=== PATIENT | female | born 1950 | race Caucasian/White ===

== ENCOUNTER 2020-11-03 18:30 | Emergency (ER) | payer MEDICARE ==
[~2020-11-03] VITALS: Ht 152.4 cm; Wt 65.0 kg
[2020-11-03 19:34] VITALS: BP 132/86
--- NOTE | 2020-11-03 19:36 | ED GU-Female ---
General Stated Complaint: MICHELE CAME OUT Source: patient Exam Limitations: no limitations (LUIS DIAZ APRN) History of Present Illness Date Seen by Provider: Nov 03, 2020 Time Seen by Provider: 19:34 Initial Comments To ER with reports that her Michele catheter came out. She has a chronic indwelling Michele catheter after partial cystectomy/cystorrhaphy following large colovesical fistula managed with [facility]. She is on meropenem Zyvox and vancomycin at home through a PICC line. No fevers or chills, the Michele came out earlier today. Timing/Duration: this afternoon Severity/Quality: moderate Prior Genitourinary Problems: none Sexual [place] History: not active Associated Symptoms: denies symptoms (LUIS DIAZ APRN) Allergies and Home Medications Patient Home Medication List Home Medication List Reviewed: Yes (LUIS DIAZ APRN) Review of Systems Review of Systems Constitutional: see HPI EENTM: see HPI Respiratory: no symptoms reported Cardiovascular: no symptoms reported Genitourinary: see HPI Musculoskeletal: no symptoms reported Skin: no symptoms reported Psychiatric/Neurological: No Symptoms Reported Endocrine: No Symptoms Reported (LUIS DIAZ APRN) Physical Exam Vital Signs Vital Signs - First Documented 11/03/20 18:56 Temp 36.1 Pulse 68 Resp 20 B/P (MAP) 130/93 (105) Pulse Ox 96 O2 Delivery Room Air (SUSHILA HUTTON MD) Vital Signs Capillary Refill : (LUIS DIAZ APRN) Height, Weight, BMI Height: '" Weight: lbs. oz. kg; BMI Method: General Appearance: WD/WN, no apparent distress Neck: non-tender, full range of motion Respiratory: no respiratory distress, no accessory muscle use Gastrointestinal: normal bowel sounds, soft, other (Right-sided abdominal colostomy. No abdominal pain. 16 Arabic Michele catheter was easily reinserted by me under sterile technique) Extremities: normal range of motion, non-tender Neurologic/Psychiatric: alert, normal mood/affect, oriented x 3 Skin: normal color, warm/dry (LUIS DIAZ APRN) Progress/Results/Core Measures Suspected Sepsis SIRS Temperature: Pulse: Respiratory Rate: Blood Pressure / Mean: (LUIS DIAZ APRN) Results/Orders Vital Signs/I&O Capillary Refill : (LUIS DIAZ APRN) Departure Impression Primary Impression: Encounter for Michele catheter replacement Disposition: 01 HOME, SELF-CARE Condition: Stable Departure-Patient Inst. Decision time for Depature: 19:36 (LUIS DIAZ APRN) Referrals: JON WITT MD (PCP/Family) Primary Care Physician Patient Instructions: Michele Catheter ATTENDING PHYSICIAN NOTE: I was physically present as attending physician in the emergency department during the care of this patient, but I was not directly involved in the decision making or delivery of care for this patient. (SUSHILA HUTTON MD) LUIS DIAZ APRN Nov 03, 2020 19:36 SUSHILA HUTTON MD Nov 05, 2020 20:55
--- OUTSIDE RECORDS SUMMARY | 2020-11-03 21:46 | XMS REPORT | Encounter Summary ---
Author Author [facility] Organization [facility] Address Unknown Phone Unavailable Care Team Providers Care Oracle Solutions Architect Name Role Phone Geraldo Mcknight MD PCP Dale Leal DO 21 Unavailable Reason for Referral * Consult, Test & Treat Referred By Contact Referred To Contact Status Reason Specialty Diagnoses / Procedures India Hassan MD [address] Ortho/Med Pavilion Lvl [address] [place] [address] New Request Specialty Services Diagnoses Required Intra-abdominal abscess (HCC) Scheduling Instructions ID OPAT RN will address. Comments Infectious Diseases Outpatient Orders: Today's Date: 10/20/[address] Hassan, 1. Please perform CT abd/pelv with contrast on ~10/23/[address] report to [phone] 3. [place] images when available Please Address Questions, Abnormal or Critical Lab Results: Friday thru Friday 8am - 4pm: Call Evelyn RIDLEY RN at [phone]. After Hours (4pm), On the Weekends, or on a Holiday: Page the ID Fellow Employment Director at [phone]. Thank You Electronically signed by India Hassan MD at Reason for Visit * Reason Onset Date Comments Outpatient Antibiotic 10/20/2020 Therapy (Opat) Encounter Details Care Team Description Date Type Department India Hassan MD [address] Ortho/Med Pavilion Lvl [address] [place] [address] [phone] Outpatient Antibiotic Therapy (Opat) 10/20/2020 Telephone Infectious Diseases : [place], [address], [address] [id number] Social History Date Tobacco Use Types Packs/Day Years Used Quit: 05/15/2020 Former Smoker Cigarettes 1 55 Smokeless Tobacco: Never Used Comments Alcohol Use Standard Drinks/Week Not Currently 0 (1 standard drink = 0.6 o z pure alcohol) Alcohol Habits Answer Date Recorded How often do you have a drink containing alcohol? Never 05/22/2020 How many drinks containing alcohol do you have on No t asked a typical day when you are drinking? How often do you have six or more drinks on one Not asked occasion? Sex Assigned at Date Recorded Female 06/27/2020 9:57 AM CDT Date Recorded COVID-19 Exposure Response 10/20/2020 11:03 AM CDT In the last month, have you been in contact with No / Unsure someone who was confirmed or suspected to have Coronavirus / COVID-19? documented as of this encounter Functional Status Date of Assessment Functional Status Response 10/10/2020 Does the patient have a hearing impairment: No 07/31/2020 Does the patient have a visual impairment: Yes - Anita ders 07/31/2020 Does the patient have impaired ambulation: Yes 07/31/2020 Does the patient have an activity of daily living No (ADL) impairment: 07/31/2020 Does the patient have an instrumental activity of No daily living (IADL) impairment: Date of Assessment Cognitive Status Response 07/31/2020 Does the patient have a cognitive impairment: No documented as of this encounter Miscellaneous Notes * Telephone Encounter - Evelyn Collado RN - 10/20/2020 8:05 AM CDT Infectious Diseases Outpatient Orders: Today's Date: 10/20/[address] Hassan, 1. Please perform CT abd/pelv with contrast on ~10/23/[address] report to [phone] 3. [place] images when available Above orders were faxed to [facility] in [place] [phone]. Called pt's insurance, no precert required for CT scan. documented in this encounter Plan of Treatment Order Schedule Name Type Priority Associated Diag noses Ordered: 10/20/2020 AMB REFERRAL TO HOME CARE Outpatient Routine Intr a-abdominal abscess Referral (HCC) documented as of this encounter Goals Goal Patient Associated Recent Progress Patient-Stat Aut hor Goal Type Problems ed? Resume normal activities Hospital On track (09/05/2020 Yes Dorothy, 10:14 AM CDT) KOBI Villarreal Note: Get better and go home Improve quality of life Hospital On track (10/10/2020 Yes Desiree Rosales, 11:36 AM CDT) RN Note: "To get full recovery and be able to live my life, get well and be as healthy as I can" documented as of this encounter Visit Diagnoses Diagnosis Intra-abdominal abscess (HCC) - Primary Peritoneal abscess documented in this encounter Additional Health Concerns Last Indicated Resolved Time Infection Onset Date 09/27/2020 Pseudomonas - MDRO 09/27/2020 Assessment Noted Time A fall risk assessment has been completed for the pat ient 10/16/2020 8:00 AM CDT documented as of this encounter
--- OUTSIDE RECORDS SUMMARY | 2020-11-03 21:46 | XMS REPORT | Encounter Summary ---
Author Author [facility] Organization [facility] Address Unknown Phone Unavailable Care Team Providers Care Riprap Placer Name Role Phone Geraldo Mcknight MD PCP Dale Leal DO 21 Unavailable Reason for Visit * Reason Comments Infection * Consult, Test & Treat (Routine) Referred By Contact Referred To Contact Status Reason Specialty Diagnoses / Procedures India Hassan MD [address] Ortho[facility]ilion Lvl [address] [place] [phone] Pending Review Infectious Diseases Encounter Details Care Team Description Date Type Department India Hassan MD [address] Orth[facility] Lvl [address] [place] [phone] 10/23/2020 Office Visit Infectious Diseases : [facility] [place], Medical [facility]ilion [address] [address] Social History Date Tobacco Use Types Packs/Day [...] impairment: No documented as of this encounter Plan of Treatment Not on filedocumented as of this encounter Goals Goal Patient [...] documented as of this encounter Visit Diagnoses Not on filedocumented in this encounter Additional Health Concerns Last Indicated Resolved Time Infection Onset Date 09/27/2020 Pseudomonas - MDRO 09/27/2020 Assessment Noted Time A fall risk assessment has been completed for the pat ient 10/16/2020 8:00 AM CDT documented as of this encounter
--- OUTSIDE RECORDS SUMMARY | 2020-11-03 21:46 | XMS REPORT | Encounter Summary ---
Author Author [facility] Organization [facility] Address Unknown Phone Unavailable Care Team Providers Care Chief Of Pediatric Urology Name Role Phone Geraldo Mcknight MD PCP Dale Leal DO 21 Unavailable Reason for Referral * Consult, Test & Treat Referred By Contact Referred To Contact Status Reason Specialty Diagnoses / Procedures India Hassan MD [address] Ortho/Med Pavilion [address] [address] New Request Specialty Services Diagnoses Required Colovesical fistula Abscess Scheduling Instructions No action needed. OPAT RN to address. Answer Question ID OPAT ORDERS Referral Comments Infectious Diseases Outpatient Orders: Today's Date: 10/17/20 Pt discharged on: 10/16/20 ID physician: Mo Krause f/u: 10/23/20 CT 10/23/20 WE FOLLOW PATIENTS IV ABX/WEEKLY LABS/CENTRAL LINE Dx: abd abscess/colovesicular fistula 1. Antibiotic order: --Meropenem 2g IV Q 8hrs --Micafungin 150mg PO QD --Linezolid 600mg PO BID --Vancomcyin 125mg PO BID until after abx E- 2-[address] and surgical plans 2. Weekly labs to be drawn every Friday and start on 10/18/20. Weekly Labs: CBC w/Diff, CMP Fax results to [phone]. 3. Weekly PICC care per protocol. Line: RDL PICC Services: [facility] # [phone] [place] P: [phone] F: [phone] If you have any questions/concerns, please call Evelyn Infectious Diseases RN at [phone]. Fax all lab results to [phone] and call ID RN for any Critical lab results during normal business hours. After Hrs: If Labs Outside of Normal Range any time on weekends or holidays please page ID fellow oim consultant to [phone]. Electronically signed by India Hassan MD at Reason for Visit * Reason Onset Date Comments Outpatient Antibiotic 10/16/2020 Therapy (Opat) Encounter Details Care Team Description Date Type Department India Hassan MD [address] [facility] Ortho/Med Pavilion Lvl [address] [place] [address] Outpatient Antibiotic Therapy (Opat) 10/16/2020 Telephone Infectious Diseases : [place], [place] [address] [employer] [facility]. [address], [address] [address] Social History Date Tobacco Use [...] AM CDT Date Recorded COVID-19 Exposure Response 10/09/2020 1:17 PM CDT In the last month, have you been in contact with [facility] to assess someone who was confirmed or suspected to have Coronavirus / COVID-19? documented as of this encounter Functional Status Date of Assessment Functional Status Response 10/10/2020 Does the patient have a hearing impairment: No 07/31/2020 Does the patient have a visual impairment: Yes - Anita ann 07/31/2020 Does the patient have impaired ambulation: Yes 07/31/2020 Does the patient have an activity of daily living No (ADL) impairment: 07/31/2020 Does the patient have an instrumental activity of No daily living (IADL) impairment: Date of Assessment Cognitive Status Response 07/31/2020 Does the patient have a cognitive impairment: No documented as of this encounter Miscellaneous Notes * Telephone Encounter - Bridgett Hansen RN - 10/16/2020 3:11 PM CDT Reconciling Discharge Orders Note OPAT ACTIVE Pt discharged on: 10/16/20 ID physician: Mo Krause f/u: 10/23/20 CT 10/23/20 Dx: abd abscess/colovesicular fistula 1. Antibiotic order: --Meropenem 2g IV Q 8hrs --Micafungin 150mg IV QD --Linezolid 600mg PO BID --Vancomcyin 125mg PO BID until after abx E- 2-[address] and surgical plans 2. Weekly labs to be drawn every Friday and start on 10/18/20. Weekly Labs: CBC w/Diff, CMP Fax results to [phone]. 3. Weekly PICC care per protocol. Line: RD PICC Services: [facility]# [phone] [facility] P: [phone] F: [phone] Orders confirmed by Yamil at [place] (LVM stating if orders arent correct then to return my call) Orders faxed to [facility] with lab start of 10/18/20/ID clarification Orders confirmed received by Lindsay at [facility] documented in this encounter Plan of Treatment Order Schedule Name Type Priority Associated Diag noses Weekly for 8 Occurrences starting 2020 until 01/17/2021, 3 completed CBC AND DIFF Lab Routine Colovesical fis harlan Abscess Weekly for 8 Occurrences starting 2020 until 01/17/2021, 3 completed COMPREHENSIVE METABOLIC Lab Routine Colove sical fistula PANEL Abscess Order Schedule Name Type Priority Associated Diag noses Ordered: 10/17/2020 AMB REFERRAL TO HOME CARE Outpatient Routine [place] vesical fistula Referral Abscess documented as of this encounter Goals Goal [...] I can" documented as of this encounter Results * COMPREHENSIVE METABOLIC PANEL (11/02/2020 1:20 PM CDT) Sodium OTHER OUTSIDE LAB Potassium 3.8 OTHER OUTSIDE LAB Chloride OTHER OUTSIDE LAB CO2 OTHER OUTSIDE LAB Blood Urea 19 OTHER OUTSIDE Nitrogen LAB Creatinine 0.6 OTHER OUTSIDE LAB Glucose OTHER OUTSIDE LAB Calcium OTHER OUTSIDE LAB Total Protein OTHER OUTSIDE LAB Total Bilirubin OTHER OUTSIDE LAB Albumin OTHER OUTSIDE LAB Alk Phosphatase 141 OTHER OUTSIDE LAB AST (SGOT) 32 OTHER OUTSIDE LAB ALT (SGPT) 19 OTHER OUTSIDE LAB eGFR Non OTHER OUTSIDE LAB [place] eGFR OTHER OUTSIDE [place] LAB Anion Gap OTHER OUTSIDE LAB Specimen Blood - Blood Performing Organization Address City/State/ZIP Code P sid Number OTHER OUTSIDE LAB * CBC AND DIFF (11/02/2020 1:20 PM CDT) White Blood 6.8 OTHER OUTSIDE Cells LAB RBC OTHER OUTSIDE LAB Hemoglobin 9.5 OTHER OUTSIDE LAB Hematocrit OTHER OUTSIDE LAB MCV OTHER OUTSIDE LAB MCH OTHER OUTSIDE LAB MCHC OTHER OUTSIDE LAB Platelet Count 224 OTHER OUTSIDE LAB MPV OTHER OUTSIDE LAB RDW OTHER OUTSIDE LAB Neutrophils OTHER OUTSIDE LAB Absolute OTHER OUTSIDE Neutrophil LAB Count Lymphocytes OTHER OUTSIDE LAB Absolute Lymph OTHER OUTSIDE Count LAB Monocytes OTHER OUTSIDE LAB Absolute OTHER OUTSIDE Monocyte Count LAB Eosinophil OTHER OUTSIDE LAB Absolute OTHER OUTSIDE Eosinophil LAB Count Basophils OTHER OUTSIDE LAB Absolute OTHER OUTSIDE Basophil Count LAB Atypical Lym OTHER OUTSIDE LAB Metamyelocyte OTHER OUTSIDE LAB Myelocyte OTHER OUTSIDE LAB Promyelocyte OTHER OUTSIDE LAB Blast OTHER OUTSIDE LAB RBC Morph OTHER OUTSIDE LAB WBC Morphology OTHER OUTSIDE LAB Specimen Blood - Blood Narrative Performed At This result has an attachment that is n ot available. Performing Organization Address City/State/ZIP Code P sid Number OTHER OUTSIDE LAB * COMPREHENSIVE METABOLIC PANEL (10/26/2020) Sodium [facility] Potassium 3.8 [facility] Chloride [facility] CO2 [facility] Blood Urea 15 [facility] Nitrogen Creatinine 0.7 [facility] Glucose [facility] Calcium [facility] Total Protein [facility] Total Bilirubin [facility] Albumin [facility] Alk Phosphatase 104 [facility] AST (SGOT) 27 [facility] ALT (SGPT) 14 [facility] eGFR Non [facility] eGFR [facility] [place] Anion Gap [facility] Specimen Blood - Blood Performing Organization Address [facility] Code P sid Number [facility] [address] [id number] * CBC AND DIFF (10/26/2020) White Blood 6.0 [facility] Cells RBC [facility] Hemoglobin 10.0 [facility] Hematocrit [facility] MCV [facility] MCH [facility] MCHC [facility] Platelet Count 249 [facility] MPV [facility] RDW [facility] Neutrophils [facility] Absolute [facility] Neutrophil Count Lymphocytes [facility] Absolute Lymph [facility] Count Monocytes [facility] Absolute [facility] Monocyte Count Eosinophil [facility] Absolute [facility] Eosinophil Count Basophils [facility] Absolute [facility] Basophil Count Atypical Lym [facility] Metamyelocyte [facility] Myelocyte [facility] Promyelocyte [facility] Blast [facility] RBC Morph [facility] WBC Morphology [facility] Specimen Blood - Blood Narrative Performed At This result has an attachment that is n ot available. Performing Organization Address City/[facility] P sid Number [facility] [address] [place] [address] * COMPREHENSIVE METABOLIC PANEL (10/19/2020 1:45 PM CDT) Sodium OTHER OUTSIDE LAB Potassium 4.2 OTHER OUTSIDE LAB Chloride OTHER OUTSIDE LAB CO2 OTHER OUTSIDE LAB Blood Urea 14 OTHER OUTSIDE Nitrogen LAB Creatinine 0.7 OTHER OUTSIDE LAB Glucose OTHER OUTSIDE LAB Calcium OTHER OUTSIDE LAB Total Protein OTHER OUTSIDE LAB Total Bilirubin OTHER OUTSIDE LAB Albumin OTHER OUTSIDE LAB Alk Phosphatase OTHER OUTSIDE LAB AST (SGOT) OTHER OUTSIDE LAB ALT (SGPT) OTHER OUTSIDE LAB eGFR Non OTHER OUTSIDE LAB [place] eGFR OTHER OUTSIDE [place] LAB Anion Gap OTHER OUTSIDE LAB Specimen Blood - Blood Performing Organization Address City/[facility]/ZIP Code P sid Number OTHER OUTSIDE LAB * CBC AND DIFF (10/19/2020 1:45 PM CDT) White Blood 8.9 OTHER OUTSIDE Cells LAB RBC OTHER OUTSIDE LAB Hemoglobin 10.7 OTHER OUTSIDE LAB Hematocrit OTHER OUTSIDE LAB MCV OTHER OUTSIDE LAB MCH OTHER OUTSIDE LAB MCHC OTHER OUTSIDE LAB Platelet Count 315 OTHER OUTSIDE LAB MPV OTHER OUTSIDE LAB RDW OTHER OUTSIDE LAB Neutrophils OTHER OUTSIDE LAB Absolute OTHER OUTSIDE Neutrophil LAB Count Lymphocytes OTHER OUTSIDE LAB Absolute Lymph OTHER OUTSIDE Count LAB Monocytes OTHER OUTSIDE LAB Absolute OTHER OUTSIDE Monocyte Count LAB Eosinophil OTHER OUTSIDE LAB Absolute OTHER OUTSIDE Eosinophil LAB Count Basophils OTHER OUTSIDE LAB Absolute OTHER OUTSIDE Basophil Count LAB Atypical Lym OTHER OUTSIDE LAB Metamyelocyte OTHER OUTSIDE LAB Myelocyte OTHER OUTSIDE LAB Promyelocyte OTHER OUTSIDE LAB Blast OTHER OUTSIDE LAB RBC Morph OTHER OUTSIDE LAB WBC Morphology OTHER OUTSIDE LAB Specimen Blood - Blood Narrative Performed At This result has an attachment that is n ot available. Performing Organization Address City/State/ZIP Code P sid Number OTHER OUTSIDE LAB documented in this encounter Visit Diagnoses Diagnosis Colovesical fistula - Primary Intestinovesical fistula Abscess Cellulitis and abscess of unspecified s ite documented in this encounter Additional Health Concerns Last Indicated Resolved Time Infection Onset Date 09/27/2020 Pseudomonas - MDRO 09/27/2020 Assessment Noted Time A fall risk assessment has been completed for the pat ient 10/16/2020 8:00 AM CDT documented as of this encounter
--- OUTSIDE RECORDS SUMMARY | 2020-11-03 21:46 | XMS REPORT | Encounter Summary ---
Author Author [facility] Organization [facility] Address Unknown Phone Unavailable Care Team Providers Care Production Superintendent Hydro Name Role Phone Geraldo Mcknight MD PCP Dale Leal DO 21 Unavailable Reason for Referral * Consult, Test & Treat Referred By Contact Referred To Contact Status Reason Specialty Diagnoses / Procedures India Hassan MD [address] Ortho/Med Pavilion Lvl [address] [place] [phone] *[facility] [address] [place] [address] New Request Specialty Services Diagnoses Required Abscess Scheduling Instructions KEYANA MOODY RN will address. Comments Infectious Diseases Outpatient Orders: Today's Date: 11/02/[address] Hassan, 1. Meropenem 2g IV Q 8 hrs and Micafungin 100 mg IV QD end date TBD 2. HH provided by [facility] Please Address Questions, Abnormal or Critical Lab Results: Friday thru Friday 8am - 4pm: Call Evelyn RIDELY RN at [phone]. After Hours (4pm), On the Weekends, or on a Holiday: Page the ID Fellow Net Software Developer at [phone]. Thank You Electronically signed by India Hassan MD at * Radiology Services (Routine) Referred By Contact Referred To Contact Status Reason Specialty Diagnoses / Procedures India Hassan MD [address] Ortho/Med Pavilion Lvl [address] [place] [phone] New Request Radiology Diagnoses Abscess P rocedures IR ABDOMINAL DRAIN PLACEMENT Electronically signed by India Hassan MD at Encounter Details Care Team Description Date Type Department India Hassan MD [address] Ortho/Med Pavilion Lvl [address] [place] [phone] 11/02/2020 Outpt. Infectious Diseases : Main Antibiotic [place], [facility] Therapy [address], [address] [address] Social History Date Tobacco Use [...] patient have a visual impairment: Yes - Grimsley ders 07/31/2020 Does the patient have impaired ambulation: Yes 07/31/2020 Does the patient have an activity of daily living No (ADL) impairment: 07/31/2020 Does the patient have an instrumental activity of No daily living (IADL) impairment: Date of Assessment Cognitive Status Response 07/31/2020 Does the patient have a cognitive impairment: No documented as of this encounter Plan of Treatment Order Schedule Name Type Priority Associated Diag noses Expected: 11/06/2020 (Approximate), Expi res: 11/02/2021 IR ABDOMINAL DRAIN Imaging Routine Abscess PLACEMENT Order Schedule Name Type Priority Associated Diag noses Ordered: 11/02/2020 AMB REFERRAL TO HOME CARE Outpatient Routine Absc ess Referral documented as of this encounter Goals Goal [...] I can" documented as of this encounter Procedures Comments Procedure Name Priority Date/Time Associated Diag nosis CBC AND DIFF Routine 11/02/2020 Colovesical fis harlan 1:20 PM CDT Abscess COMPREHENSIVE METABOLIC Routine 11/02/2020 Colove sical fistula PANEL 1:20 PM CDT Abscess documented in this encounter Results * COMPREHENSIVE METABOLIC PANEL [...] OUTSIDE LAB eGFR Non OTHER OUTSIDE LAB Senegalese eGFR OTHER OUTSIDE [place]egalese LAB Anion Gap OTHER OUTSIDE LAB Specimen [...] documented in this encounter Visit Diagnoses Diagnosis Abscess - Primary Cellulitis and abscess of unspecified s ite Colovesical fistula Intestinovesical fistula documented in this encounter Additional Health Concerns Last Indicated Resolved Time Infection Onset Date 09/27/2020 Pseudomonas - MDRO 09/27/2020 Assessment Noted Time A fall risk assessment has been completed for the pat ient 10/27/2020 8:58 AM CDT documented as of this encounter
--- OUTSIDE RECORDS SUMMARY | 2020-11-03 21:46 | XMS REPORT | Clinical Summary ---
Author Author [facility] Address Unknown Phone Unavailable Care Team Providers Care Pocket Creaser Name Role Phone Geraldo Mcknight MD PCP Dale Leal DO 21 Unavailable Source Comments Some departments are not documenting in the electronic medical record. If you d o not see the information that you expected, contact Release of Information in Critical access hospital Information Management department at [phone] for further assistan ce in locating additional records.[facility] Allergies Comments Active Allergy Reactions Severity Noted Date Sulfamethoxazole-Trimetho HIVES, Medium 10/2020 prim ITCHING Blue Dye EDEMA Medium 06/06/2020 Medications End Date Status Medication Sig Dispensed Refills Start Date Active acetaminophen (TYLENOL) Take one 90 capsule 0 325 mg capsule capsule by 1 mouth every 6 hours as needed. Max of 4,000 mg of acetaminophen in 24 hours. Active Miscellaneous Medical Colostomy 20 each 10/04/19 2 Supply misc supplies and 1 accessories Dispense twenty of each for one month of supplies Dx Colovesical fistula N32.1 Active gabapentin (NEURONTIN) Take one 90 capsule 0 300 mg capsule capsule by 1 mouth twice daily. Active naphazoline 0.025 % Apply one 30 mL 0 /pheniramine 0.3 % drop to both 1 (NAPHCON-A) 0.025/0.3 % eyes four drop times daily. Active pantoprazole DR Take one 90 tablet 1 (PROTONIX) 40 mg tablet tablet by 1 mouth twice daily. Active simethicone (MYLICON) 80 Chew one 30 tablet 1 0 mg chew tablet tablet by 1 mouth every 6 hours as needed for Flatulence. Active aluminum/magnesium Take 30 mL by 300 mL 0 10/03 hydroxide (MAALOX) mouth four 1 200/200 mg/5 mL susp oral times daily suspension as needed. Active buPROPion XL (WELLBUTRIN Take one 30 tablet 0 0 XL) 150 mg tablet tablet by 1 mouth daily. Do not crush or chew. Active levocetirizine (XYZAL) 5 Take one 30 tablet 0 0 mg tab tablet by 1 mouth daily as needed. Active levothyroxine (SYNTHROID) Take one 90 tablet 0 50 mcg tablet tablet by 1 mouth daily. Active ondansetron (ZOFRAN ODT) Dissolve one 30 tablet 0 4 mg rapid dissolve tablet by 1 tablet mouth every [address] on tongue to dissolve. Active polyethylene glycol 3350 Take one 12 each 3 0 (MIRALAX) 17 g packet packet by 1 mouth twice daily as needed. Active senna/docusate Take one 30 tablet 1 (SENOKOT-S) 8.6/50 mg tablet by 1 tablet mouth twice daily. Active Miscellaneous Medical ICD-10:Ileost 1 each 10/04/19 2 Supply [facility] in [facility] 1 ([facility]) Z93.2 Ileostomy supplies and accessories Dispense one month of supplies Active micafungin (MYCAMINE) 100 Administer 1 g 3 mg/5 mL 100 mg, 150 mg 1 micafungin (MYCAMINE) 50 [address] vein mg/5 mL 50 mg in sodium every 24 chloride 0.9% (NS) 110 mL hours. IVPBIndications: Indications: intra-abdominal infection intra-abdomin al infection Active meropenem (MERREM) 1 g/20 Administer 2 500 mL 3 mL injection grams over 3 1 hours intravenously every 8 hours. Tentatively through 10/12 or until discontinued by infectious diseases physician. Active methocarbamoL (ROBAXIN) Take one 30 tablet 1 750 mg tablet tablet by 1 mouth twice daily as needed for Spasms. Active oxybutynin XL (DITROPAN Take one 90 tablet 3 XL) 10 mg tablet tablet by 1 mouth daily. Active hyoscyamine (ANASPAZ) Place one 45 tablet 3 0.125 mg rapid dissolve tablet under 1 tablet tongue every 4 hours as needed. Active clonazePAM (KLONOPIN) Dissolve one 30 tablet 2 0.125 mg rapid dissolve tablet by 1 tablet mouth three times daily. Active vancomycin (FIRVANQ) 25 Take 5 mL by 150 mL 0 0 mg/mL oral mouth twice 1 solutionIndications: daily. Abscess Discard after 14 days. Active linezolid (ZYVOX) 600 mg Take one 14 tablet 1 0 tabletIndications: tablet by 1 Abscess mouth twice daily. Tentatively through 10/12 or until discontinued by infectious diseases physician. Active HYDROcodone/acetaminophen Take one 30 tablet 0 (NORCO) 5/325 mg tablet tablet by 1 mouth every 6 hours as needed 10/16/2020 Discontinued (Reorder) HYDROcodone/acetaminophen Take one 30 tablet 0 (NORCO) 5/325 mg tablet tablet to two 1 tablets by mouth every 6 hours as needed 10/20/2020 Discontinued (Reorder) hyoscyamine (ANASPAZ) Place one 30 tablet 1 09/15 0.125 mg rapid dissolve tablet under 1 tablet tongue every 4 hours as needed. 10/16/2020 Discontinued (Reorder) methocarbamoL (ROBAXIN) Take one 30 tablet 1 750 mg tablet tablet by 1 mouth twice daily as needed for Spasms. 10/20/2020 Discontinued (Reorder) oxybutynin XL (DITROPAN Take one 90 tablet 1 XL) 10 mg tablet tablet by 1 mouth daily. 10/16/2020 Discontinued (Reorder) vancomycin (FIRVANQ) 25 Take 5 mL by 300 mL 0 0 mg/mL oral solution mouth twice 1 daily. 10/16/2020 Discontinued loperamide (IMODIUM A-D) Initial: 4mg, 30 capsule 0 2 mg capsule followed by 1 2mg after each loose stool (max: 16mg/day) 10/16/2020 Discontinued micafungin (MYCAMINE) 100 Administer 900 mg 0 mg/5 mL 100 mg in sodium one hundred 1 chloride 0.9% (NS) 0.9 % mg through 100 mL IVPB vein every 24 hours. Tentatively through 10/12 or until discontinued by infectious diseases physician. 10/16/2020 Discontinued (Reorder) meropenem (MERREM) 1 g/20 Administer 2 1 each 0 mL injection grams over 3 1 hours intravenously every 8 hours. Tentatively through 10/12 or until discontinued by infectious diseases physician. 10/16/2020 Discontinued (Reorder) linezolid (ZYVOX) 600 mg Take one 0 10/03 tablet tablet by 1 mouth twice daily. Tentatively through 10/12 or until discontinued by infectious diseases physician. 10/31/2020 Discontinued (Reorder) vancomycin (FIRVANQ) 25 Take 5 mL by 300 mL 0 0 mg/mL oral solution mouth twice 1 daily. Discard after 14 days. 10/31/2020 Discontinued (Reorder) linezolid (ZYVOX) 600 mg Take one 30 tablet 1 0 tablet tablet by 1 mouth twice daily. Tentatively through 10/12 or until discontinued by infectious diseases physician. 10/20/2020 Discontinued (Reorder) HYDROcodone/acetaminophen Take one 15 tablet 0 (NORCO) 5/325 mg tablet tablet by 1 mouth every 6 hours as needed 11/03/2020 Discontinued (Reorder) HYDROcodone/acetaminophen Take one 30 tablet 0 (NORCO) 5/325 mg tablet tablet by 1 mouth every 6 hours as needed Active Problems Problem Noted Date Wound drainage 10/10/2020 Chronic anemia 10/01/2020 Abdominal fluid collection 09/26/2020 Abscess 09/15/2020 CLABSI (central line-associated bloodstream infection ) 09/12/2020 Acute pulmonary edema 09/12/2020 Bacteremia due to methicillin resistant Staphylococcu s epidermidis 09/11/2020 Candidal urinary tract infection 09/11/2020 Ileus 09/11/2020 Hypokalemia 09/11/2020 J LUIS (acute kidney injury) 09/07/2020 Malnutrition 09/07/2020 Tobacco abuse 07/09/2020 C. difficile colitis 07/09/2020 Eosinophilia 07/09/2020 Severe malnutrition 07/01/2020 Essential hypertension 06/29/2020 Other specified hypothyroidism 06/29/2020 Sinus arrhythmia 06/29/2020 Acute hypoxemic respiratory failure 06/29/2020 Stage 3a chronic kidney disease 06/29/2020 Septic shock 06/28/2020 Pelvic pain in female 06/12/2020 Urinary urgency 06/12/2020 Colovesical fistula 05/26/2020 Overview: Formatting of this note might be differ ent from the original. 08/2013 - Takeback drainage of abscess a nd debridement of fascia/mesh 07/30/2013 - Complex ventral hernia rep air with fascial separation component with mesh and panniculectomy 07/09/2012 - Cystoscopy, right ureteral stent removal, right retrograde pyelogram, and fulguration of right dis kat ureteral stump and ureteral orifice. 05/08/2012 - Right ureteral reimplantat ion 05/08/2012 - Laparotomy with lysis of a dhesions, repair of small bowel, rigid sigmoidoscope 12/20/2011 - Primary repair of right ur eteral injury with ureteroureterostomy and cystoscopy with left ureteral stent placement. 12/20/2011 - Laparoscopy converted to l aparotomy, sigmoid colon resection with low anterior anastomosis, small kristine wel resection, resection and repair of vaginal cuff. Pathology: 1. Sigmoid colon with rings and small b owel Segmental resection. Diverticulosis, se alena adhesions with luminal obstruction and associated peritonitis. 2. Vaginal cuff L ast Assessment & Plan: Formatting of this note might be differ ent from the original. 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 At this point time, the patient's urine is clear yellow and her catheter is draining well and therefore no acute ur ologic intervention is indicated. [facility] enterocutaneous fistulas/bowel leak. PLAN: -Maintain Bartlett catheter given leak and concern for fistula on CT -Agree with admission to colorectal ser vice for further work-up and evaluation -Recommend Ditropan 10 mg XL daily and Levsin 0.125 mg every 4 hours as needed for bladder spasms Smoking addiction 05/26/2020 Resolved Problems Problem Noted Date Resolved Date Acute blood loss anemia 09/07/2020 10/01/2020 Encounters Care Team Description Date Type Specialty Rebeca Rogers PHARMD 11/03/2020 Documentation Infusion Lorena Moy MD Urinary Catheter Problem 11/03/2020 Telephone Urology Lorena Moy MD 11/03/2020 Orders Only Urology Sridevi Costello MD 11/03/2020 Hosp Radiology Documentation Only India Hassan MD 11/02/2020 Outpt. Infectious Diseases Antibiotic Therapy India Hassan MD 11/02/2020 Outpt. Infectious Diseases Antibiotic Therapy India Hassan MD Outpatient Antibiotic Therapy (Opat) 10/31/2020 Telephone Infectious Diseases India Hassan MD Outpatient Antibiotic Therapy (Opat) 10/30/2020 Telephone Infectious Diseases Bran Martell DO Colovesical fistula (Primary Dx) 10/27/2020 Office Visit Oncology Telehealth India Hassan MD 10/26/2020 Outpt. Infectious Diseases Antibiotic Therapy Lorena Moy MD Urinary Catheter Problem (Pt requesting call back to discuss bartlett catheter) 10/26/2020 Telephone Oncology Lorena Moy MD Urinary Catheter Problem 10/25/2020 Telephone Urology India Hassan MD 10/23/2020 Office Visit Infectious Diseases Telehealth Lorena Moy MD Colovesical fistula (Primary Dx) 10/20/2020 Procedure visit Urology India Hassan MD 10/20/2020 Outpt. Infectious Diseases Antibiotic Therapy 10/20/2020 Travel India Hassan MD Outpatient Antibiotic Therapy (Opat) 10/20/2020 Telephone Infectious Diseases Lorena Moy MD Medication Question 10/19/2020 Telephone Urology India Hassan MD Outpatient Antibiotic Therapy (Opat) 10/16/2020 Telephone Infectious Diseases Bran Martell, DO Wound drainage 10/10/2020 Hospital - Encounter 10/16/2020 10/09/2020 Travel Bran Martell Alanis, DO General Question 10/09/2020 Telephone Oncology Roger Flowers MD Wound 10/08/2020 Telephone Oncology Bran Martell Alanis, DO General Question 10/06/2020 Telephone Oncology Juany Ferguson MD Outpatient Antibiotic Therapy (Opat) 10/04/2020 Telephone Infectious Diseases 09/27/2020 Travel Bran Martell Alanis, DO Abdominal fluid collection 09/26/2020 Hospital - Encounter 10/03/2020 Lorena Moy MD Colovesical fistula 09/26/2020 Office Visit Oncology Loren Garrido UTILITY HAND-SOFTWARE TEST MANAGER 09/26/2020 Hospital Radiology Encounter No Delarosa UTILITY HAND-SOFTWARE TEST MANAGER Canceled (Office-Scheduled from Wait Lis t) 09/26/2020 Hospital Radiology Encounter Loren Garrido UTILITY HAND-RODOLFO Colovesical fistula 09/26/2020 Nurse Only Oncology Loren Garrido UTILITY HAND-SOFTWARE TEST MANAGER Colovesical fistula (Primary Dx) 09/26/2020 Office Visit Oncology 09/26/2020 Travel Marti Edouard MD Medical Question 09/24/2020 Telephone Urology Britta Bolton MD Records Request 09/22/2020 Telephone Urgent Care India Hassan MD Outpatient Antibiotic Therapy (Opat) 09/22/2020 Telephone Infectious Diseases Lorena Moy MD Colovesical fistula (Primary Dx) 09/20/2020 Orders Only Urology No Delarosa, UTILITY HAND-SOFTWARE TEST MANAGER 09/12/2020 Hospital Radiology Encounter Lorena Moy MD Colovesical fistula (Primary Dx) 09/07/2020 Orders Only Urology Lilly Strickland MD Richardson, Kimberly A UTILITY HAND-SOFTWARE TEST MANAGER 09/04/2020 Anesthesia Event Lorena Moy MD EXPLORATORY LAPAROTOMY WITHOUT BIOPSY WI TH PARTIAL CYSTECTOMY 09/04/2020 Surgery Lorena Moy MD Ashcraft, John H, DO Colovesical fistula 09/04/2020 Hospital - Encounter 09/21/2020 09/04/2020 Travel Lorena Moy MD 08/24/2020 PAC Office Pre-Admission Testi ng Visit India Hassan MD Outpatient Antibiotic Therapy (Opat) 08/24/2020 Telephone Infectious Diseases India Hassan MD 08/24/2020 Outpt. Infectious Diseases Antibiotic Therapy Bran Martell DO General Question (preop paperwork sent t o nurse at [place]) 08/24/2020 Telephone Oncology Bran Martell DO Colovesical fistula (Primary Dx) 08/23/2020 Orders Only Oncology Lorena Moy MD Colovesical fistula (Primary Dx); Encounter for screening laboratory testing for COVID-19 virus in asymptomatic patient 08/22/2020 Prep for Case Oncology Jovon Munoz RN 08/22/2020 Telephone Radiology Lorena Moy MD Patient Questions (questions about nephr ostomy tubes) 08/22/2020 Telephone Oncology Sami Schwarz MD Results 08/22/2020 Telephone Oncology Bran Martell DO Colovesical fistula (Primary Dx) 08/21/2020 Orders Only Oncology Bridgett Hansen, KOBI Encounter for long-term (current) use of antibiotics 08/21/2020 Orders Only Infectious Diseases Bran Martell DO Smoking addiction (Primary Dx); Colovesical fistula 08/18/2020 Office Visit Oncology Telehealth Bran Martell DO Scheduling 08/17/2020 Telephone Oncology Lorena Moy MD Infection 08/17/2020 Telephone Oncology Lorena Moy MD General Question 08/17/2020 Telephone Urology India Hassan MD 08/15/2020 Outpt. Infectious Diseases Antibiotic Therapy Bran Martell DO Scheduling 08/09/2020 Telephone Oncology Lorean Moy MD Colovesical fistula (Primary Dx) 08/08/2020 Scheduled Oncology Telephone India Hassan MD 08/08/2020 Outpt. Infectious Diseases Antibiotic Therapy India Hassan MD C. difficile colitis; Colovesical fistula; Ureteric fistula; Chronic pyelonephritis 08/07/2020 Office Visit Infectious Diseases Telehealth India Hassan MD 08/07/2020 Outpt. Infectious Diseases Antibiotic Therapy Bran Martell DO General Question (labs follow up) 08/03/2020 Telephone Oncology from Last 3 Months Immunizations Name Administration Dates Next Due COVID-19 (MODERNA), mRNA 09/21/2020, 07/19/2020 vacc, 100 mcg/0.5 mL (PF) Surgical History Surgery Date Site/Laterality Comments CYSTOSCOPY 03/26/2012 Urethral dilation SECTION x 2 HX ROSARIO AND BSO HX SURGERY 12/20/2011 Laparoscopy convert ed to laparotomy, sigmoid colon resection with low anterior anastomosis , small bowel resection, resection and repair o f vaginal cuff. Pathology: 1. Sigmoid colon with rings and small bowel. Segmental resection. Diver ticulosis, serosal adhesions with luminal obstruct ion and associated peritonitis. 2. Vaginal cuff : Enteric fistula tract HX SURGERY 12/20/2011 Primary repair of r ight ureteral injury with ureteroureterostomy and cystoscopy with left ureteral stent placement HX SURGERY 05/08/2012 Laparotomy with hermelindo is of adhesions, repair of small bowel, rigid sigmoidoscope HX SURGERY 05/08/2012 Right ureteral reim plantation HX SURGERY 07/09/2012 Cystoscopy, right u reteral stent removal, right retrograde pyelogram, and fulguration o f right distal ureteral stump and ureteral orif ice HX SURGERY 07/30/2013 Complex ventral her sherry repair with fascial separation component with mesh and pann iculectomy HX SURGERY 09/07/2013 Opening of previous Pfannenstiel incision with drainage of intra-abdominal abscess HX SURGERY 10/06/2013 Laparoscopic divert ing colostomy transverse colon and excision 8 x 5 skin and subcutaneou s tissue and fascia HX SURGERY 08/19/2014 Laparoscopic takedo wn of colostomy HX SURGERY 08/24/2014 Laparoscopy with re do colocolonic anastomosis ABDOMEN SURGERY ABDOMINAL EXPLORATION 09/04/2020 Abdomen/N/A EXPLORAT ORY LAPAROTOMY WITHOUT BIOPSY WITH PARTIAL SURGERY CYSTECTOMY performed by Lorena Torres MD at [facility] [place] Medical devices from this surgery are i n the Implants section. COLECTOMY 09/04/2020 Abdomen/N/A COLECTOMY WITH COLOPROCTOSTOMY AND COLOSTOMY - PARTIAL performed by Lorena Moy MD at [facility] [place] Medical devices from this surgery are i n the Implants section. COLECTOMY 09/04/2020 Abdomen/N/A COLECTOMY WITH COLOPROCTOSTOMY AND COLOSTOMY - PARTIAL performed by Bran Martell DO at [facility] [place] Medical devices from this surgery are i n the Implants section. Medical History Medical History Date Comments Hypertension Colovesical fistula Diverticulitis Rectovaginal fistula Hypothyroid Right ureteral injury PONV (postoperative nausea and vomiting) Sepsis (HCC) Hypoglycemia Family History Medical History Relation Name Comments Brain Cancer Sister Cervical Cancer Sister Relation Name Status Comments Sister Social History Date Tobacco Use Types Packs/Day Years Used Quit: 05/15/2020 Former Smoker Cigarettes 1 55 Smokeless Tobacco: Never Used Tobacco Cessation: Ready to Quit: Yes Comments Alcohol Use Standard Drinks/Week Not Currently [...] or suspected to have Coronavirus / COVID-19? Last Filed Vital Signs Reading Time Taken Comments Vital Sign 141/79 10/20/2020 11:14 AM CDT Blood Pressure 76 10/20/2020 11:14 AM CDT Pulse 36.7 C (98.1 F) 10/20/2020 11:14 AM CDT Temperature 18 10/20/2020 11:14 AM CDT Respiratory Rate 92% 10/16/2020 3:49 PM CDT Oxygen Saturation - - Inhaled Oxygen Concentration 70.3 kg (155 lb) 10/20/2020 11:14 AM CDT Weight 149.9 cm (4' 11") 10/20/2020 11:14 AM CDT Height 31.31 10/20/2020 11:14 AM CDT Body Mass Index Plan of Treatment Health Maintenance Due Date Last Done Comments MEDICARE ANNUAL WELLNESS 1952 VISIT PNEUMONIA (PPSV23) 1958 VACCINE (1 of 2 - PPSV23) DTAP/TDAP VACCINES (1 - 1970 Tdap) HEPATITIS C SCREENING 1970 PHYSICAL (COMPREHENSIVE) 1970 EXAM BREAST CANCER SCREENING 1992 COLORECTAL CANCER 2002 SCREENING SHINGLES RECOMBINANT 2002 VACCINE (1 of 2) OSTEOPOROSIS 2017 SCREENING/MONITORING INFLUENZA VACCINE 12/15/2020 COVID-19 VACCINE Completed 09/21/2020, 07/19/2020 Goals Goal Patient Associated Recent Progress Patient-Stat [...] and be as healthy as I can" Implants Device Identifier Shelf Expiration Date Model / Serial / L ot Implanted Type Area Manufactur er [id number] / [id number] / [id number] Stent Ureteral 6fr 24cm Pigtail Left: Ureter BOSTO N Curve Taper Tip Bladder Marino - SCIENTIFIC [id number] Implanted: Qty: 1 on 09/04/2020 by Lorena Moy MD at [facility] [id number] / NA / NA Barrier Adhesion 3x5in Procedure Left: Ureter LYDIA FI-AVE Pack Bioresorbable Membrane - Sna NTIS US Implanted: Qty: 1 on 09/04/2020 by INC Lorena Moy MD at [facility] Procedures Comments Procedure Name Priority Date/Time Associated Diag nosis COMPREHENSIVE METABOLIC Routine 11/02/2020 Colove sical fistula PANEL 1:20 PM CDT Abscess CBC AND DIFF Routine 11/02/2020 Colovesical fis harlan 1:[address] ABD/PELV W CONTRAST Routine 11/01/2020 Abscess CBC AND DIFF Routine 10/26/2020 Colovesical fis harlan Abscess COMPREHENSIVE METABOLIC Routine 10/26/2020 Colove sical fistula PANEL Abscess NC CYSTO W/SIMPLE REMOVAL Routine 10/20/2020 [place] vesical fistula STONE & STENT 11:00 AM CDT COMPREHENSIVE METABOLIC Routine 10/19/2020 Colove sical fistula PANEL 1:45 PM CDT Abscess CBC AND DIFF Routine 10/19/2020 Colovesical fis harlan 1:45 PM CDT Abscess HC PHOSPHOROUS, SERUM Routine 10/16/2020 3:35 AM CDT HC MAGNESIUM Routine 10/16/2020 3:35 AM CDT HC BASIC METABOLIC PANEL Routine 10/16/2020 3:35 AM CDT HC PHOSPHOROUS, SERUM Routine 10/15/2020 4:10 AM CDT HC MAGNESIUM Routine 10/15/2020 4:10 AM CDT HC BASIC METABOLIC PANEL Routine 10/15/2020 4:10 AM CDT HC PHOSPHOROUS, SERUM Routine 10/14/2020 2:01 AM CDT HC MAGNESIUM Routine 10/14/2020 2:01 AM CDT HC BASIC METABOLIC PANEL Routine 10/14/2020 2:01 AM CDT POC GLUCOSE 10/13/2020 4:57 PM CDT POC GLUCOSE 10/13/2020 12:22 PM CDT POC GLUCOSE 10/13/2020 9:09 AM CDT HC HEPATIC FUNCTION PANEL Routine 10/13/2020 3:30 AM CDT HC TRIGLYCERIDE Routine 10/13/2020 3:30 AM CDT HC PHOSPHOROUS, SERUM Routine 10/13/2020 3:30 AM CDT HC MAGNESIUM Routine 10/13/2020 3:30 AM CDT HC BASIC METABOLIC PANEL Routine 10/13/2020 3:30 AM CDT POC GLUCOSE 10/13/2020 2:58 AM CDT HC PHOSPHOROUS, SERUM Routine 10/12/2020 5:10 AM CDT HC MAGNESIUM Routine 10/12/2020 5:10 AM CDT HC BASIC METABOLIC PANEL Routine 10/12/2020 5:10 AM CDT GRAM STAIN 10/11/2020 3:00 PM CDT CULTURE-WOUND/TISSUE/FLUI Routine 10/11/2020 D(AEROBIC 3:00 PM CDT ONLY)W/SENSITIVITY POC GLUCOSE 10/11/2020 4:10 AM CDT HC TRIGLYCERIDE 10/11/2020 4:00 AM CDT HC HEPATIC FUNCTION PANEL 10/11/2020 4:00 AM CDT HC PHOSPHOROUS, SERUM Routine 10/11/2020 4:00 AM CDT HC MAGNESIUM Routine 10/11/2020 4:00 AM CDT HC BASIC METABOLIC PANEL Routine 10/11/2020 4:00 AM CDT HC CBC,AUTOMATED Routine 10/11/2020 4:00 AM CDT POC GLUCOSE 10/10/2020 10:06 PM CDT US DOPPLER VENOUS W EXTRM STAT 10/10/2020 LEFT 2:[address] ABD/PELV W CONTRAST STAT 10/10/2020 7:04 AM CDT HC CBC,AUTOMATED Routine 10/10/2020 4:23 AM CDT CHEST SINGLE VIEW STAT 10/10/2020 2:39 AM CDT COVID-19 (SARS-COV-2) PCR Routine 10/10/2020 12:40 AM CDT HC PHOSPHOROUS, SERUM STAT 10/10/2020 12:35 AM CDT HC LACTIC ACID(LACTATE) STAT 10/10/2020 12:35 AM CDT HC CALCIUM IONIZED STAT 10/10/2020 12:35 AM CDT HC MAGNESIUM STAT 10/10/2020 12:35 AM CDT HC COMPREHENSIVE STAT 10/10/2020 METABOLIC PANEL 12:35 AM CDT CBC STAT 10/10/2020 12:35 AM CDT CULTURE-BLOOD Routine 10/03/2020 W/SENSITIVITY 10:10 AM CDT POC GLUCOSE 10/03/2020 7:45 AM CDT HC PHOSPHOROUS, SERUM Routine 10/03/2020 3:30 AM CDT HC MAGNESIUM Routine 10/03/2020 3:30 AM CDT HC CBC,AUTOMATED Routine 10/03/2020 3:30 AM CDT HC BASIC METABOLIC PANEL Routine 10/03/2020 3:30 AM CDT POC GLUCOSE 10/03/2020 3:20 AM CDT POC GLUCOSE 10/02/2020 7:[address] ABD/PELV W CONTRAST STAT 10/02/2020 5:29 PM CDT POC GLUCOSE 10/02/2020 4:46 PM CDT POC GLUCOSE 10/02/2020 11:59 AM CDT POC GLUCOSE 10/02/2020 8:24 AM CDT HC PHOSPHOROUS, SERUM Routine 10/02/2020 4:15 AM CDT HC MAGNESIUM Routine 10/02/2020 4:15 AM CDT HC CBC,AUTOMATED Routine 10/02/2020 4:15 AM CDT HC BASIC METABOLIC PANEL Routine 10/02/2020 4:15 AM CDT POC GLUCOSE 10/02/2020 3:24 AM CDT POC GLUCOSE 10/01/2020 11:28 PM CDT POC GLUCOSE 10/01/2020 11:49 AM CDT COVID-19 (SARS-COV-2) PCR STAT 10/01/2020 11:15 AM CDT POC GLUCOSE 10/01/2020 7:24 AM CDT POC GLUCOSE 10/01/2020 4:42 AM CDT HC PHOSPHOROUS, SERUM Routine 10/01/2020 4:38 AM CDT HC MAGNESIUM Routine 10/01/2020 4:38 AM CDT HC CBC,AUTOMATED Routine 10/01/2020 4:38 AM CDT HC BASIC METABOLIC PANEL Routine 10/01/2020 4:38 AM CDT POC GLUCOSE 09/30/2020 11:07 PM CDT POC GLUCOSE 09/30/2020 4:25 PM CDT POC GLUCOSE 09/30/2020 11:33 AM CDT HC PHOSPHOROUS, SERUM Routine 09/30/2020 4:19 AM CDT HC MAGNESIUM Routine 09/30/2020 4:19 AM CDT HC CBC,AUTOMATED Routine 09/30/2020 4:19 AM CDT HC BASIC METABOLIC PANEL Routine 09/30/2020 4:19 AM CDT POC GLUCOSE 09/29/2020 5:24 PM CDT POC GLUCOSE 09/29/2020 12:43 PM CDT HC PHOSPHOROUS, SERUM Routine 09/29/2020 4:05 AM CDT HC MAGNESIUM Routine 09/29/2020 4:05 AM CDT HC BASIC METABOLIC PANEL Routine 09/29/2020 4:05 AM CDT HC CBC,AUTOMATED Routine 09/29/2020 4:05 AM CDT POC GLUCOSE 09/28/2020 10:15 PM CDT POC GLUCOSE 09/28/2020 4:59 PM CDT POC GLUCOSE 09/28/2020 11:29 AM CDT POC GLUCOSE 09/28/2020 8:07 AM CDT POC GLUCOSE 09/28/2020 3:57 AM CDT HC PHOSPHOROUS, SERUM Routine 09/28/2020 3:30 AM CDT HC MAGNESIUM Routine 09/28/2020 3:30 AM CDT HC BASIC METABOLIC PANEL Routine 09/28/2020 3:30 AM CDT HC CBC,AUTOMATED Routine 09/28/2020 3:30 AM CDT POC GLUCOSE 09/27/2020 9:43 PM CDT POC GLUCOSE 09/27/2020 5:17 PM CDT CULTURE-FUNGAL,OTHER Routine 09/27/2020 4:19 PM CDT GRAM STAIN Routine 09/27/2020 4:19 PM CDT CULTURE-ANAEROBIC Routine 09/27/2020 4:19 PM CDT CULTURE-WOUND/TISSUE/FLUI Routine 09/27/2020 D(AEROBIC 4:19 PM CDT ONLY)W/SENSITIVITY IR ABDOMINAL DRAIN Routine 09/27/2020 PLACEMENT 4:15 PM CDT POC GLUCOSE 09/27/2020 11:16 AM CDT POC GLUCOSE 09/27/2020 7:23 AM CDT HC CK(CPK OR CREATINE Add on 09/27/2020 KINASE) 4:39 AM CDT HC TRIGLYCERIDE Routine 09/27/2020 4:39 AM CDT HC COMPREHENSIVE Routine 09/27/2020 METABOLIC PANEL 4:39 AM CDT HC PHOSPHOROUS, SERUM Routine 09/27/2020 4:39 AM CDT HC MAGNESIUM Routine 09/27/2020 4:39 AM CDT HC CBC,AUTOMATED Routine 09/27/2020 4:39 AM CDT POC GLUCOSE 09/26/2020 10:22 PM CDT COVID-19 (SARS-COV-2) PCR Routine 09/26/2020 6:59 PM CDT HC PT(INR) Routine 09/26/2020 6:[address] PELVIS WO/W CONTRAST STAT 09/26/2020 Colove sical fistula 2:[address] ABDOMEN W CONTRAST STAT 09/26/2020 Colovesi murali fistula 2:34 PM CDT HC CBC,AUTOMATED STAT 09/26/2020 Colovesical f istula 12:31 PM CDT HC COMPREHENSIVE STAT 09/26/2020 Colovesical f istula METABOLIC PANEL 12:31 PM CDT POC GLUCOSE 09/21/2020 11:44 AM CDT POC GLUCOSE 09/21/2020 8:13 AM CDT HC BASIC METABOLIC PANEL Routine 09/21/2020 4:34 AM CDT HC PHOSPHOROUS, SERUM Routine 09/21/2020 4:34 AM CDT HC MAGNESIUM Routine 09/21/2020 4:34 AM CDT POC GLUCOSE 09/21/2020 4:31 AM CDT POC GLUCOSE 09/20/2020 8:26 PM CDT POC GLUCOSE 09/20/2020 4:52 PM CDT POC GLUCOSE 09/20/2020 11:24 AM CDT POC GLUCOSE 09/20/2020 7:35 AM CDT HC PHOSPHOROUS, SERUM Routine 09/20/2020 4:40 AM CDT HC MAGNESIUM Routine 09/20/2020 4:40 AM CDT HC COMPREHENSIVE Routine 09/20/2020 METABOLIC PANEL 4:40 AM CDT POC GLUCOSE 09/19/2020 10:01 PM CDT POC GLUCOSE 09/19/2020 5:41 PM CDT ECG 12-LEAD STAT 09/19/2020 4:53 PM CDT HC PHOSPHOROUS, SERUM STAT 09/19/2020 12:20 PM CDT HC MAGNESIUM STAT 09/19/2020 12:20 PM CDT HC BASIC METABOLIC PANEL STAT 09/19/2020 12:20 PM CDT POC GLUCOSE 09/19/2020 11:45 AM CDT POC GLUCOSE 09/19/2020 8:25 AM CDT COVID-19 (SARS-COV-2) PCR Routine 09/19/2020 6:50 AM CDT POC GLUCOSE 09/18/2020 3:45 PM CDT POC GLUCOSE 09/18/2020 8:40 AM CDT HC PHOSPHOROUS, SERUM Routine 09/18/2020 4:24 AM CDT HC MAGNESIUM Routine 09/18/2020 4:24 AM CDT HC CBC,AUTOMATED Routine 09/18/2020 4:24 AM CDT HC BASIC METABOLIC PANEL Routine 09/18/2020 4:24 AM CDT POC GLUCOSE 09/17/2020 6:18 PM CDT POC GLUCOSE 09/17/2020 12:54 PM CDT HC PHOSPHOROUS, SERUM Routine 09/17/2020 4:56 AM CDT HC MAGNESIUM Routine 09/17/2020 4:56 AM CDT HC CBC,AUTOMATED Routine 09/17/2020 4:56 AM CDT HC BASIC METABOLIC PANEL Routine 09/17/2020 4:56 AM CDT POC GLUCOSE 09/17/2020 4:54 AM CDT POC GLUCOSE 09/17/2020 4:45 AM CDT POC GLUCOSE 09/17/2020 4:42 AM CDT POC GLUCOSE 09/17/2020 4:38 AM CDT POC GLUCOSE 09/16/2020 1:34 PM CDT POC GLUCOSE 09/16/2020 9:48 AM CDT HC PHOSPHOROUS, SERUM Routine 09/16/2020 3:57 AM CDT HC MAGNESIUM Routine 09/16/2020 3:57 AM CDT HC CBC,AUTOMATED Routine 09/16/2020 3:57 AM CDT HC BASIC METABOLIC PANEL Routine 09/16/2020 3:57 AM CDT POC GLUCOSE 09/16/2020 3:51 AM CDT POC GLUCOSE 09/15/2020 9:54 PM CDT HC CK(CPK OR CREATINE Add on 09/15/2020 KINASE) 4:00 AM CDT HC PHOSPHOROUS, SERUM Routine 09/15/2020 4:00 AM CDT HC MAGNESIUM Routine 09/15/2020 4:00 AM CDT HC CBC,AUTOMATED Routine 09/15/2020 4:00 AM CDT HC BASIC METABOLIC PANEL Routine 09/15/2020 4:00 AM CDT POC GLUCOSE 09/15/2020 3:52 AM CDT HC VANCOMYCIN 2HR POST Routine 09/14/2020 DOSE 2:25 PM CDT POC GLUCOSE 09/14/2020 11:41 AM CDT POC GLUCOSE 09/14/2020 8:16 AM CDT HC VANCOMYCIN-TROUGH Routine 09/14/2020 8:10 AM CDT HC PHOSPHOROUS, SERUM Routine 09/14/2020 4:17 AM CDT HC MAGNESIUM Routine 09/14/2020 4:17 AM CDT HC CBC,AUTOMATED Routine 09/14/2020 4:17 AM CDT HC BASIC METABOLIC PANEL Routine 09/14/2020 4:17 AM CDT POC GLUCOSE 09/14/2020 3:19 AM CDT POC GLUCOSE 09/13/2020 9:03 PM CDT POC GLUCOSE 09/13/2020 6:[address] GUIDE ABCESS DRAIN W Routine 09/13/2020 CATH 5:29 PM CDT GRAM STAIN Routine 09/13/2020 5:11 PM CDT CULTURE-FUNGAL,OTHER Routine 09/13/2020 5:11 PM CDT CULTURE-ANAEROBIC Routine 09/13/2020 5:11 PM CDT CULTURE-WOUND/TISSUE/FLUI Routine 09/13/2020 D(AEROBIC 5:11 PM CDT ONLY)W/SENSITIVITY POC GLUCOSE 09/13/2020 11:20 AM CDT CHEST SINGLE VIEW Routine 09/13/2020 10:40 AM CDT POC GLUCOSE 09/13/2020 8:46 AM CDT ECG 12-LEAD STAT 09/13/2020 7:31 AM CDT BLOOD BANK SAMPLE HOLD 09/13/2020 7:30 AM CDT HC LACTIC ACID - BG 09/13/2020 SYRINGE 7:30 AM CDT HC LACTIC ACID - BG STAT 09/13/2020 SYRINGE 6:05 AM CDT HC PHOSPHOROUS, SERUM Routine 09/13/2020 2:58 AM CDT HC MAGNESIUM Routine 09/13/2020 2:58 AM CDT HC CBC,AUTOMATED Routine 09/13/2020 2:58 AM CDT HC BASIC METABOLIC PANEL Routine 09/13/2020 2:58 AM CDT HC LACTIC ACID(LACTATE) STAT 09/12/2020 11:02 PM CDT BLOOD BANK SAMPLE HOLD 09/12/2020 9:15 PM CDT HC PHOSPHOROUS, SERUM STAT 09/12/2020 9:15 PM CDT HC MAGNESIUM STAT 09/12/2020 9:15 PM CDT CBC STAT 09/12/2020 9:15 PM CDT HC COMPREHENSIVE STAT 09/12/2020 METABOLIC PANEL 9:[address] ABD/PELV W CONTRAST Routine 09/12/2020 7:[address] CHEST W CONTRAST Routine 09/12/2020 7:27 PM CDT CONSULT IV THERAPY TEAM STAT 09/12/2020 3:33 PM CDT CONSULT IV THERAPY TEAM Routine 09/12/2020 9:54 AM CDT HC VANCOMYCIN-TROUGH Add on 09/12/2020 4:40 AM CDT HC PHOSPHOROUS, SERUM Routine 09/12/2020 4:40 AM CDT HC MAGNESIUM Routine 09/12/2020 4:40 AM CDT HC CBC,AUTOMATED Routine 09/12/2020 4:40 AM CDT HC BASIC METABOLIC PANEL Routine 09/12/2020 4:40 AM CDT CONSULT IV THERAPY TEAM STAT 09/11/2020 10:18 AM CDT POC GLUCOSE 09/11/2020 8:13 AM CDT HC PHOSPHOROUS, SERUM Routine 09/11/2020 4:32 AM CDT HC MAGNESIUM Routine 09/11/2020 4:32 AM CDT HC CBC,AUTOMATED Routine 09/11/2020 4:32 AM CDT HC BASIC METABOLIC PANEL Routine 09/11/2020 4:32 AM CDT POC GLUCOSE 09/10/2020 5:25 PM CDT POC GLUCOSE 09/10/2020 5:09 PM CDT POC GLUCOSE 09/10/2020 12:34 PM CDT CULTURE-BLOOD STAT 09/10/2020 W/SENSITIVITY 11:00 AM CDT CULTURE-BLOOD STAT 09/10/2020 W/SENSITIVITY 10:50 AM CDT POC GLUCOSE 09/10/2020 9:06 AM CDT HC PHOSPHOROUS, SERUM Routine 09/10/2020 4:40 AM CDT HC MAGNESIUM Routine 09/10/2020 4:40 AM CDT HC CBC,AUTOMATED Routine 09/10/2020 4:40 AM CDT HC BASIC METABOLIC PANEL Routine 09/10/2020 4:40 AM CDT POC GLUCOSE 09/09/2020 10:17 PM CDT POC GLUCOSE 09/09/2020 10:02 PM CDT CONSULT IV THERAPY TEAM Routine 09/09/2020 8:11 AM CDT HC PHOSPHOROUS, SERUM Routine 09/09/2020 5:10 AM CDT HC MAGNESIUM Routine 09/09/2020 5:10 AM CDT HC CBC,AUTOMATED Routine 09/09/2020 5:10 AM CDT HC BASIC METABOLIC PANEL Routine 09/09/2020 5:10 AM CDT HC BLOOD GAS, POC 09/08/2020 12:42 PM CDT CHEST 2 VIEWS STAT 09/08/2020 11:09 AM CDT CULTURE-BLOOD STAT 09/08/2020 W/SENSITIVITY 4:30 AM CDT POC GLUCOSE 09/08/2020 4:15 AM CDT HC LACTIC ACID - BG STAT 09/08/2020 SYRINGE 4:10 AM CDT HC BLOOD CULTURE STAT 09/08/2020 MOLECULAR DETECTION 4:10 AM CDT CULTURE-BLOOD STAT 09/08/2020 W/SENSITIVITY 4:10 AM CDT HC TRIGLYCERIDE Add on 09/08/2020 3:30 AM CDT HC PROLCALCITONIN (PROCA) Add on 09/08/2020 3:30 AM CDT HC HEPATIC FUNCTION PANEL Add on 09/08/2020 3:30 AM CDT HC PHOSPHOROUS, SERUM Routine 09/08/2020 3:30 AM CDT HC MAGNESIUM Routine 09/08/2020 3:30 AM CDT HC BASIC METABOLIC PANEL Routine 09/08/2020 3:30 AM CDT HC CBC,AUTOMATED Routine 09/08/2020 3:30 AM CDT POC GLUCOSE 09/07/2020 10:13 PM CDT POC GLUCOSE 09/07/2020 5:39 PM CDT ABDOMEN AP ONLY STAT 09/07/2020 10:22 AM CDT ABDOMEN AP ONLY STAT 09/07/2020 10:08 AM CDT POC GLUCOSE 09/07/2020 8:59 AM CDT HC PHOSPHOROUS, SERUM Routine 09/07/2020 3:30 AM CDT HC MAGNESIUM Routine 09/07/2020 3:30 AM CDT HC BASIC METABOLIC PANEL Routine 09/07/2020 3:30 AM CDT HC CBC,AUTOMATED Routine 09/07/2020 3:30 AM CDT POC GLUCOSE 09/06/2020 9:13 PM CDT POC GLUCOSE 09/06/2020 6:10 PM CDT TRANSFUSE RBC'S Routine 09/06/2020 12:21 PM CDT CBC STAT 09/06/2020 12:20 PM CDT POC GLUCOSE 09/06/2020 11:10 AM CDT TRANSFUSE RBC'S Routine 09/06/2020 8:27 AM CDT HC PHOSPHOROUS, SERUM Routine 09/06/2020 3:55 AM CDT HC MAGNESIUM Routine 09/06/2020 3:55 AM CDT HC BASIC METABOLIC PANEL Routine 09/06/2020 3:55 AM CDT HC CBC,AUTOMATED Routine 09/06/2020 3:55 AM CDT POC GLUCOSE 09/06/2020 3:49 AM CDT POC GLUCOSE 09/05/2020 9:18 PM CDT POC GLUCOSE 09/05/2020 6:01 PM CDT POC GLUCOSE 09/05/2020 1:30 PM CDT POC GLUCOSE 09/05/2020 8:20 AM CDT HC TRIGLYCERIDE Routine 09/05/2020 3:30 AM CDT HC COMPREHENSIVE Routine 09/05/2020 METABOLIC PANEL 3:30 AM CDT HC PHOSPHOROUS, SERUM Routine 09/05/2020 3:30 AM CDT HC MAGNESIUM Routine 09/05/2020 3:30 AM CDT HC CBC,AUTOMATED Routine 09/05/2020 3:30 AM CDT CBC STAT 09/04/2020 8:15 PM CDT HC LACTIC ACID(LACTATE) STAT 09/04/2020 3:25 PM CDT HC BASIC METABOLIC PANEL STAT 09/04/2020 3:25 PM CDT HC CBC,AUTOMATED STAT 09/04/2020 3:25 PM CDT ANESTHESIA ARTERIAL LINE Routine 09/04/2020 INSERTION 1:28 PM CDT HC LACTIC ACID - BG STAT 09/04/2020 SYRINGE 1:17 PM CDT HC POTASSIUM, BG STAT 09/04/2020 1:17 PM CDT HC SODIUM,BG STAT 09/04/2020 1:17 PM CDT HC CALCIUM IONIZED STAT 09/04/2020 1:17 PM CDT HC GLUCOSE,BG STAT 09/04/2020 1:17 PM CDT HC BLOOD STAT 09/04/2020 GASES;(CALCULATED 02) 1:17 PM CDT HC HEMOGLOBIN (BG) STAT 09/04/2020 1:17 PM CDT HC LEVEL 1 GROSS EXAM Routine 09/04/2020 Colovesi murali fistula 1:01 PM CDT TRANSFUSE RBC'S FILIBERTO 09/04/2020 12:51 PM CDT TRANSFUSE RBC'S FILIBERTO 09/04/2020 12:19 PM CDT HC POTASSIUM, BG STAT 09/04/2020 11:55 AM CDT HC SODIUM,BG STAT 09/04/2020 11:55 AM CDT HC CALCIUM IONIZED STAT 09/04/2020 11:55 AM CDT HC GLUCOSE,BG STAT 09/04/2020 11:55 AM CDT HC BLOOD STAT 09/04/2020 GASES;(CALCULATED 02) 11:55 AM CDT HC HEMOGLOBIN (BG) STAT 09/04/2020 11:55 AM CDT COLECTOMY WITH 09/04/2020 Colovesical fistula COLOPROCTOSTOMY AND 10:34 AM CDT COLOSTOMY - PARTIAL Special Needs 6/9 PER IM FROM [facility] CASE LENGTH 6 HRS - CC 1001 COLECTOMY WITH 09/04/2020 Colovesical fistula COLOPROCTOSTOMY AND 10:34 AM CDT COLOSTOMY - PARTIAL Special Needs 6/9 PER IM FROM [facility] CASE LENGTH 6 HRS - CC 1001 EXPLORATORY LAPAROTOMY 09/04/2020 Colovesical fi stula WITH/ WITHOUT BIOPSY 10:34 AM CDT Special Needs 6/9 PER IM FROM [facility] CASE LENGTH 6 HRS - CC 1001 ANESTHESIA EPIDURAL BLOCK Routine 09/04/2020 10:24 AM CDT POC GLUCOSE 09/04/2020 10:22 AM CDT HC BLOOD TYPING, ABO STAT 09/04/2020 CONFIRM 91 10:00 AM CDT HC ABO GROUP STAT 09/04/2020 9:19 AM CDT TELEMETRY STRIPS-SCAN 09/04/2020 12:00 AM CDT ECG-SCAN 09/04/2020 12:00 AM CDT ECG-SCAN 09/04/2020 12:00 AM CDT ECG-SCAN 09/04/2020 12:00 AM CDT TELEMETRY STRIPS-SCAN 09/04/2020 12:00 AM CDT TELEMETRY STRIPS-SCAN 09/04/2020 12:00 AM CDT TELEMETRY STRIPS-SCAN 09/04/2020 12:00 AM CDT TELEMETRY STRIPS-SCAN 09/04/2020 12:00 AM CDT TELEMETRY STRIPS-SCAN 09/04/2020 12:00 AM CDT TELEMETRY STRIPS-SCAN 09/04/2020 12:00 AM CDT TELEMETRY STRIPS-SCAN 09/04/2020 12:00 AM CDT TELEMETRY STRIPS-SCAN 09/04/2020 12:00 AM CDT TELEMETRY STRIPS-SCAN 09/04/2020 12:00 AM CDT TELEMETRY STRIPS-SCAN 09/04/2020 12:00 AM CDT TELEMETRY STRIPS-SCAN 09/04/2020 12:00 AM CDT TELEMETRY STRIPS-SCAN 09/04/2020 12:00 AM CDT ECG-SCAN 09/04/2020 12:00 AM CDT TELEMETRY STRIPS-SCAN 09/04/2020 12:00 AM CDT TELEMETRY STRIPS-SCAN 09/04/2020 12:00 AM CDT TELEMETRY STRIPS-SCAN 09/04/2020 12:00 AM CDT TELEMETRY STRIPS-SCAN 09/04/2020 12:00 AM CDT TELEMETRY STRIPS-SCAN 09/04/2020 12:00 AM CDT TELEMETRY STRIPS-SCAN 09/04/2020 12:00 AM CDT TELEMETRY STRIPS-SCAN 09/04/2020 12:00 AM CDT TELEMETRY STRIPS-SCAN 09/04/2020 12:00 AM CDT TELEMETRY STRIPS-SCAN 09/04/2020 12:00 AM CDT TELEMETRY STRIPS-SCAN 09/04/2020 12:00 AM CDT TELEMETRY STRIPS-SCAN 09/04/2020 12:00 AM CDT TELEMETRY STRIPS-SCAN 09/04/2020 12:00 AM CDT TELEMETRY STRIPS-SCAN 09/04/2020 12:00 AM CDT TELEMETRY STRIPS-SCAN 09/04/2020 12:00 AM CDT TELEMETRY STRIPS-SCAN 09/04/2020 12:00 AM CDT TELEMETRY STRIPS-SCAN 09/04/2020 12:00 AM CDT TELEMETRY STRIPS-SCAN 09/04/2020 12:00 AM CDT TELEMETRY STRIPS-SCAN 09/04/2020 12:00 AM CDT TELEMETRY STRIPS-SCAN 09/04/2020 12:00 AM CDT TELEMETRY STRIPS-SCAN 09/04/2020 12:00 AM CDT TELEMETRY STRIPS-SCAN 09/04/2020 12:00 AM CDT TELEMETRY STRIPS-SCAN 09/04/2020 12:00 AM CDT TELEMETRY STRIPS-SCAN 09/04/2020 12:00 AM CDT TELEMETRY STRIPS-SCAN 09/04/2020 12:00 AM CDT TELEMETRY STRIPS-SCAN 09/04/2020 12:00 AM CDT TELEMETRY STRIPS-SCAN 09/04/2020 12:00 AM CDT TELEMETRY STRIPS-SCAN 09/04/2020 12:00 AM CDT TELEMETRY STRIPS-SCAN 09/04/2020 12:00 AM CDT TELEMETRY STRIPS-SCAN 09/04/2020 12:00 AM CDT TELEMETRY STRIPS-SCAN 09/04/2020 12:00 AM CDT COMPREHENSIVE METABOLIC Routine 08/21/[address] for long-term PANEL 6:02 AM CDT (current) use of antibiotics CBC AND DIFF Routine 08/21/2020 Encounter for l shikha-term 6:02 AM CDT (current) use of antibiotics CBC AND DIFF Routine 08/18/2020 Encounter for l shikha-term 7:04 AM CDT (current) use of antibiotics COMPREHENSIVE METABOLIC Routine 08/18/[address] for long-term PANEL 7:04 AM CDT (current) use of antibiotics COMPREHENSIVE METABOLIC Routine 08/14/[address] for long-term PANEL 2:16 PM CDT (current) use of antibiotics CBC AND DIFF Routine 08/14/2020 Encounter for l shikha-term 2:16 PM CDT (current) use of antibiotics COMPREHENSIVE METABOLIC Routine 08/07/[address] for long-term PANEL 6:54 AM CDT (current) use of antibiotics CBC AND DIFF Routine 08/07/2020 Encounter for l shikha-term 6:54 AM CDT (current) use of antibiotics COMPREHENSIVE METABOLIC Routine 08/04/[address] for long-term PANEL 5:57 AM CDT (current) use of antibiotics COMPREHENSIVE METABOLIC Routine 08/03/[address] for long-term PANEL 3:33 PM CDT (current) use of antibiotics CBC AND DIFF Routine 08/03/2020 Encounter for l shikha-term 3:33 PM CDT (current) use of antibiotics from Last 3 Months Results * CBC AND DIFF (11/02/2020 1:20 PM CDT) Only the most recent of 8 results within the time period is included. [facility] White Blood 6.8 OTHER OUTSIDE Cells LAB [...] OTHER OUTSIDE LAB * COMPREHENSIVE METABOLIC PANEL (11/02/2020 1:20 PM CDT) Only the most recent of 15 results within the time period is included. Sodium OTHER OUTSIDE LAB Potassium 3.8 OTHER [...] OUTSIDE LAB eGFR Non OTHER OUTSIDE LAB Italian eGFR OTHER OUTSIDE Italian LAB Anion Gap OTHER OUTSIDE LAB Specimen Blood - Blood Performing Organization Address City/State/ZIP Code P sid Number OTHER OUTSIDE LAB * CT ABD/PELV W CONTRAST (11/01/2020) Only the most recent of 4 results within the time period is included. Specimen Narrative Performed At This result has an attachment that is n ot available. Performing Organization Address City/State/ZIP Code P sid Number [facility] * CYSTO W/STENT REMOVAL (10/20/2020 11:00 AM CDT) Narrative Performed At Lorena Moy MD 10/20/2020 6:14 PM IN CLINI C Surgeon: Lorena Moy MD Preoperative Diagnosis: Status post c olovesical fistula takedown with left ureteral stent placement at t he time of surgery Postoperative Diagnosis: Same Procedure: Flexible cystourethroscopy and stent removal. Anesthesia: Intraurethral 2% Lidocain e Gel Complications: none Indications for Procedure: He signed informed consent prior to procedure. 70 y.o. 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 She had a left ureteral caitlyn nt placed at the time of the procedure. She presents today for removal. Description of Operative Procedure: H e was placed in the dorsolithotomy position and prepped in the usual fashion. Flexible cystoscopy was performed and t he stent grasped and removed intact. The patient tolerated the procedure well without any complications. Stent was inspecte d and entirely removed intact. 16 Martiniquais Bartlett catheter was placed at the completion of the procedure and confirmed placement w ith irrigation as well as direct palpation with pelvic exam. Follow-up: Patient will require Bartlett c atheter due to continued bladder leak on recent cystogram. Fol ey catheter needs to be exchanged in 1 month. She currently h as home health and reports that home health can exchange the luis ter. This should be exchanged to a 16 Martiniquais catheter. I will have the patient return to clinic for telehealth visit i n 6 weeks. We will plan on a cystogram at some point in the fut ure to evaluate for continued leak. Performing Organization Address City/State/ZIP Code P sid Number IN CLINIC * PHOSPHORUS (10/16/2020 3:35 AM CDT) Only the most recent of 32 results within the time period is included. Phosphorus 5.0 (H) 2.0 - 4.5 MG/DL [facility] Specimen Performing Organization Address City/[facility]/ZIP Code P sid Number [facility] [address] [place] [address] * MAGNESIUM (10/16/2020 3:35 AM CDT) Only the most recent of 32 results within the time period is included. Magnesium 2.2 1.6 - 2.6 mg/dL [facility] Specimen Performing Organization Address [facility] P sid Number [facility] [address] [place] [id number] * BASIC METABOLIC PANEL (10/16/2020 3:35 AM CDT) Only the most recent of 28 results within the time period is included. Sodium 138 137 - 147 MMOL/L [facility] Potassium 4.2 3.5 - 5.1 MMOL/L [facility] Chloride 102 98 - 110 MMOL/L [facility] CO2 26 21 - 30 MMOL/L [facility] Anion Gap 10 3 - 12 [facility] Glucose 85 70 - 100 MG/DL [facility] Blood Urea 28 (H) 7 - 25 MG/DL [facility] Nitrogen Creatinine 0.85 0.4 - 1.00 MG/DL [facility] Calcium 9.1 8.5 - 10.6 MG/DL [facility] eGFR Non >60 >60 mL/min [facility] Comment: Italian The eGFR is not validated f or use in drug dosing adjustments. Continue to use estimated creatinine clearance per dosing reference text. Please contact the Clinical Pharmacist for questions. eGFR >60 >60 mL/min [facility] Italian Comment: The eGFR is not validated for use in drug dosing adjustments. Continue to use estimated creatinine clearance per dosing reference text. Please contact the Clinical Pharmacist for questions. Specimen Performing Organization Address [facility]/ZIP [facility] P sid Number [facility] [address] [place] [id number] * POC GLUCOSE (10/13/2020 4:57 PM CDT) Only the most recent of 83 results within the time period is included. Glucose, POC 109 (H) 70 - 100 MG/DL [facility] Specimen Performing Organization Address City/[facility] P sid Number [facility] [address] [place] [address] * TRIGLYCERIDE (10/13/2020 3:30 AM CDT) Only the most recent of 5 results within the time period is included. Triglycerides 164 (H) <150 MG/DL [facility] Specimen Blood Performing Organization Address [facility] P sid Number [facility] [address] [place] [address] * LIVER FUNCTION PANEL (10/13/2020 3:30 AM CDT) Only the most recent of 3 results within the time period is included. Total Bilirubin 0.3 0.3 - 1.2 MG/DL [facility] Bilirubin, <0.1 <0.4 MG/DL [facility] Direct Albumin 3.1 (L) 3.5 - 5.0 G/DL [facility] Alk Phosphatase 105 25 - 110 U/L [facility] AST (SGOT) 18 7 - 40 U/L [facility] ALT (SGPT) 13 7 - 56 U/L [facility] Total Protein 7.1 6.0 - 8.0 G/DL [facility] Specimen Blood Performing Organization Address [facility] P sid Number [facility] [address] [place] [address] * GRAM STAIN (10/11/2020 3:00 PM CDT) Only the most recent of 3 results within the time period is included. Battery Name GRAM STAIN [facility] Report Status FINAL 10/11/2020 [facility] Specimen DRAINAGE ABDOMEN [facility] Description Special NONE [facility] Requests Gram Stain RARE [facility] NEUTROPHILS Gram Stain MANY [facility] BUDDING YEAST Gram Stain MODERATE [facility] GRAM NEGATIVE RODS Gram Stain RARE [facility] GRAM POSITIVE COCCI Specimen Drainage - Abdomen Performing Organization Address [facility]/ZIP [facility] P sid Number [facility] [address] [place] [address] * CULTURE-WOUND/TISSUE/FLUID(AEROBIC ONLY)W/SENSITIVITY (10/11/2020 3:00 PM CDT) Only the most recent of 3 results within the time period is included. Battery Name ROUTINE CULTURE [facility] Report Status EDITED RESULT - FINAL [facility] 10/17/2020 Specimen DRAINAGE ABDOMEN [facility] Description Special NONE [facility] Requests Direct Gram RARE [facility] Stain NEUTROPHILS Direct Gram MANY [facility] Stain BUDDING YEAST Direct Gram MODERATE [facility] Stain GRAM NEGATIVE RODS Direct Gram RARE [facility] Stain GRAM POSITIVE COCCI Culture Moderate growth [facility] PSEUDOMONAS AERUGINOSA (A) Culture Moderate growth [facility] BRENDA GLABRATA (A) Comment: Susceptibility intended for research use only. Modified Report Yeast susceptibilities added Specimen Drainage - Abdomen Antibiotic Method Susceptibility Organism Amikacin REMI (MCG/ML), INTERPRETATION, PHX <=8: Susceptible Pseudomonas aeruginosa Aztreonam REMI (MCG/ML), INTERPRETATION, PHX 16: Intermediate Pseudomonas aeruginosa Ceftazidime REMI (MCG/ML), INTERPRETATION, PHX 16: Intermediate Pseudomonas aeruginosa Cefepime REMI (MCG/ML), INTERPRETATION, PHX 8: Susceptible Pseudomonas aeruginosa Gentamicin REMI (MCG/ML), INTERPRETATION, PHX <=2: Susceptible Pseudomonas aeruginosa Levofloxacin REMI (MCG/ML), INTERPRETATION, PHX <=0.5: Susceptible Pseudomonas aeruginosa Meropenem REMI (MCG/ML), INTERPRETATION, PHX 1: Susceptible Pseudomonas aeruginosa Piperacil/Tazobactam REMI (MCG/ML), INTERPRETATION, PHX 32/4: Intermediate Pseudomonas aeruginosa Tobramycin REMI (MCG/ML), INTERPRETATION, PHX <=2: Susceptible Pseudomonas aeruginosa Micafungin REMI (MCG/ML), INTERPRETATION, YST 1: Resistant Brenda glabrata Fluconazole REMI (MCG/ML), INTERPRETATION, YST 128: Resistant Brenda glabrata Performing Organization Address City/State/ZIP Code P sid Number [facility] [address] [place] [address] * CBC (10/11/2020 4:00 AM CDT) Only the most recent of 29 results within the time period is included. White Blood 5.8 4.5 - 11.0 K/UL [facility] Cells RBC 3.41 (L) 4.0 - 5.0 M/UL [facility] Hemoglobin 9.2 (L) 12.0 - 15.0 GM/DL [facility] Hematocrit 30.1 (L) 36 - 45 % [facility] MCV 88.3 80 - 100 FL [facility] MCH 26.9 26 - 34 PG [facility] MCHC 30.5 (L) 32.0 - 36.0 G/DL [facility] RDW 16.9 (H) 11 - 15 % [facility] Platelet Count 325 150 - 400 K/UL [facility] MPV 8.3 7 - 11 FL [facility] Specimen Performing Organization Address City/State/ZIP Code P sid Number [facility] [address] [place] [address] * US DOPPLER VENOUS W EXTRM LEFT (10/10/2020 2:50 PM CDT) Specimen Left Impressions Performed At No femoral/popliteal deep venous thrombosis in the le ft lower extremity. [facility] RESULTS By my electronic signature, I attest th at I have personally reviewed the images for this examination and formulated the interpretations and opinions expressed in this report Finalized by Idalia Randhawa M.D. on 3:31 PM. Dictated by Nishant Alaniz M.D. on 10/10/2020 2:51 PM. Narrative Performed At LEFT LOWER EXTREMITY VENOUS DOPPLER ULTRASOUND [facility] RESULTS CLINICAL INDICATION: Female, 70 years; left lower extremity pain, rule out DVT TECHNIQUE: Multiple grayscale, color Do ppler and spectral Doppler ultrasound images were obtained of the left lower extremity for evaluation of the peripheral veins. COMPARISON: None FINDINGS: The left common femoral, upper saphenou s, deep femoral, femoral, and popliteal veins are patent and fully compressible without focal narrowing. Visualized portions of the posterior tibial and pe roneal veins are patent. No soft tissue mass or fluid collection is identified within visualized portions of the leg. Procedure Note Interface, Radiant Results - 10/10/2020 3:34 PM CDT LEFT LOWER EXTREMITY VENOUS DOPPLER ULTRASOUND CLINICAL INDICATION: Female, 70 years; left lower extremity pain, rule out DVT TECHNIQUE: Multiple grayscale, color Doppler and spectral Doppler ultrasound images were obtained of the left lower extremity for evaluation of the peripheral veins. COMPARISON: None FINDINGS: The left common femoral, upper saphenous, deep femoral, femoral, and popliteal veins are patent and fully compressible without focal narrowing. Visualized portions of the posterior tibial and peroneal veins are patent. No soft tissue mass or fluid collection is identified within visualized portions of the leg. IMPRESSION No femoral/popliteal deep venous thrombosis in the left lower extremity. By my electronic signature, I attest that I have personally reviewed the images for this examination and formulated the interpretations and opinions expressed in this report Finalized by Idalia Randhawa M.D. on 10/10/2020 3:31 PM. Dictated by Nishant Alaniz M.D. on 10/10/2020 2:51 PM. Performing Organization Address City/State/ZIP Code P sid Number [facility] * CHEST SINGLE VIEW (10/10/2020 2:39 AM CDT) Only the most recent of 2 results within the time period is included. Specimen Impressions Performed At Interval clearing of areas of consolidation in the lo wer lobes consistent with [facility] resolving atelectasis or pneumonia. Right PICC line with its tip at the lev el of the mid SVC. Finalized by Arron Jones M.D. on 2020 8:03 AM. Dictated by Arron Jones M.D. on 10/10/2020 8:00 AM. Narrative Performed At CHEST SINGLE VIEW [facility] INDICATION: verify PICC placement. TECHNIQUE: Portable AP upright view of the chest was obtained COMPARISON STUDY: Comparison is made to an examination of 09/13/2020 FINDINGS: Tubes, Lines and Devices: Right PICC li ne is in place with its tip at the level of mid SVC. Heart and Vasculature: Cardiac size is within normal limits. There is no acute vascular congestion. Lungs: There has been interval clearing of the bibasilar pulmonary opacities. Minor zones of subsegmental atelectasis or scarring persist. Mediastinum and Zahra: There is tortuosi ty of the descending thoracic aorta. No mediastinal or hilar masses are detecte d. Pleura: There is no significant pleural fluid. No pneumothorax is identified. Chest Wall and Soft Tissues: There are osteophytes at multiple levels in the thoracic spine. There are degenerative changes of the glenohumeral joints bilaterally. Procedure Note Interface, Radiant Results - 10/10/2020 8:06 AM CDT CHEST SINGLE VIEW INDICATION: verify PICC placement. TECHNIQUE: Portable AP upright view of the chest was obtained COMPARISON STUDY: Comparison is made to an examination of 09/13/2020 FINDINGS: Tubes, Lines and Devices: Right PICC line is in place with its tip at the level of mid SVC. Heart and Vasculature: Cardiac size is within normal limits. There is no acute vascular congestion. Lungs: There has been interval clearing of the bibasilar pulmonary opacities. Minor zones of subsegmental atelectasis or scarring persist. Mediastinum and Zahra: There is tortuosity of the descending thoracic aorta. No mediastinal or hilar masses are detected. Pleura: There is no significant pleural fluid. No pneumothorax is identified. Chest Wall and Soft Tissues: There are osteophytes at multiple levels in the thoracic spine. There are degenerative changes of the glenohumeral joints bilaterally. IMPRESSION Interval clearing of areas of consolidation in the lower lobes consistent with resolving atelectasis or pneumonia. Right PICC line with its tip at the level of the mid SVC. Finalized by Arron Jones M.D. on 10/10/2020 8:03 AM. Dictated by Arron Jones M.D. on 10/10/2020 8:00 AM. Performing Organization Address City/State/ZIP Code P sid Number [facility] * COVID-19 (SARS-COV-2) PCR (10/10/2020 12:40 AM CDT) Only the most recent of 4 results within the time period is included. COVID-19 FLOCKED SWAB MAIN LAB (SARS-CoV-2) NASOPHARYNGEAL PCR Source COVID-19 NOT DETECTED DN-NOT DETECTED MAIN LAB (SARS-CoV-2) Comment: PCR This assay is designed to detect the S and/or ORF1ab genes of SARS-CoV-2 using nucleic acid amplification. A "Not Detected" result does not preclude the possibility of SARS-CoV-2 infection since the adequacy of sample collection and/or low viral burden may result in the presence of viral nucleic acids below the analytical sensitivity of this test method. Test results should be used along with other clinical and laboratory data in making the diagnosis. Test parameters have not been validated for screening in asymptomatic patients.This test has not been FDA cleared or approved. This test is authorized for use under the FDA Emergency Use Authorization and performance characteristics have been verified by the [facility]. Fact sheet for providers: https://www.fda.gov/media/1703 85/download Fact sheet for patients: https://www.fda.gov/media/3367 87/download Specimen Flocked Swab - Nasopharyngeal Performing Organization Address City/[facility]/ZIP Code P sid Number [facility] [address] [place] [address] * LACTIC ACID(LACTATE) (10/10/2020 12:35 AM CDT) Only the most recent of 3 results within the time period is included. Lactic Acid 1.3 0.5 - 2.0 MMOL/L [facility] Specimen Blood Performing Organization Address City/[facility]/ZIP Code P sid Number MAIN LAB [address] [place] [address] * IONIZED CALCIUM (10/10/2020 12:35 AM CDT) Ionized Calcium 1.11 1.0 - 1.3 MMOL/L [facility] Specimen Blood Performing Organization Address City/[facility] P sid Number [facility] [address] [place] [address] * CULTURE-BLOOD W/SENSITIVITY (10/03/2020 10:10 AM CDT) Only the most recent of 5 results within the time period is included. Battery Name BLOOD CULTURE [facility] Report Status FINAL 10/09/2020 [facility] Specimen BLOOD RIGHT PICC LINE [facility] Description Special NONE [facility] Requests Culture NO GROWTH 5 DAYS [facility] Specimen Blood - Blood,Line Draw Performing Organization Address [facility] Code P sid Number [facility] [address] [place] [address] * CULTURE-FUNGAL,OTHER (09/27/2020 4:19 PM CDT) Only the most recent of 2 results within the time period is included. Battery Name FUNGUS CULTURE [facility] Report Status FINAL 10/04/2020 [facility] Specimen FLUID ABDOMEN [facility] Description Special NONE [facility] Requests Culture Two colonies MAIN LAB BRENDA GLABRATA (A)Comment: Susceptibility intended for research use only. Specimen Fluid - Abdomen Antibiotic Method Susceptibility Organism Micafungin REMI (MCG/ML), INTERPRETATION, YST 0.5: Resistant Brenda glabrata Fluconazole REMI (MCG/ML), INTERPRETATION, YST 64: Resistant Brenda glabrata Performing Organization Address City/State/ZIP Code P sid Number MAIN LAB [address] [place] [address] * CULTURE-ANAEROBIC (09/27/2020 4:19 PM CDT) Only the most recent of 2 results within the time period is included. Battery Name ANAEROBE CULTURE [facility] Report Status FINAL 10/02/2020 [facility] Specimen FLUID ABDOMEN [facility] Description Special NONE [facility] Requests Culture NO ANAEROBES ISOLATED [facility] Specimen Fluid - Abdomen Performing Organization Address City/State/ZIP Code P sid Number MAIN LAB [address] [place] [address] * IR ABDOMINAL DRAIN PLACEMENT (09/27/2020 4:15 PM CDT) Specimen Impressions Performed At US-guided drain placement as described. [facility]UL TS Approved by Roddy Morelos MD on 09/27 4:25 PM By my electronic signature, I attest th at I have personally reviewed the images for this examination and formulated the interpretations and opinions expressed in this report Finalized by Guy Barrett M.D. on 021 4:40 PM. Dictated by Roddy Morelos MD on 09/27/2020 4:23 PM. Narrative Performed At ULTRASOUND-GUIDED DRAIN PLACEMENT: [facility] Clinical Indication: 70-year-old female with a fluid collection within the subcutaneous soft tissues of the right lower quadrant Sedation Medication: Fentanyl and Verse d Technique and Findings: The nature of the procedure, risks, mis efits, and expected outcomes were discussed with the patient who then pro vided informed written and verbal consent. The patient was placed in a supine posi tion on the interventional table. Initial sonographic imaging through the anterio r abdomen demonstrated known superficial fluid collection. The patient was prepp ed and draped in the usual sterile manner and the superficial tissues were anesth etized with 2% lidocaine solution. An 18 gauge Seldinger needle was advanced int o the fluid collection under CT guidance. Chronic blood products were aspirated. A Amplatz wire was advanced into the fluid collection and a 12 Martiniquais pigtai l catheter was advanced into the fluid collection. Approximately 10 ml of flui d was aspirated. The pigtail catheter was sutured in place and connected to a J V AC system. The patient tolerated the procedure well and left the department in unchanged condition. Procedure Note Interface, Radiant Results - 09/27/2020 4:43 PM CDT ULTRASOUND-GUIDED DRAIN PLACEMENT: Clinical Indication: 70-year-old female with a fluid collection within the subcutaneous soft tissues of the right lower quadrant Sedation Medication: Fentanyl and Versed Technique and Findings: The nature of the procedure, risks, benefits, and expected outcomes were discussed with the patient who then provided informed written and verbal consent. The patient was placed in a supine position on the interventional table. Initial sonographic imaging through the anterior abdomen demonstrated known superficial fluid collection. The patient was prepped and draped in the usual sterile manner and the superficial tissues were anesthetized with 2% lidocaine solution. An 18 gauge Seldinger needle was advanced into the fluid collection under CT guidance. Chronic blood products were aspirated. A Amplatz wire was advanced into the fluid collection and a 12 Martiniquais pigtail catheter was advanced into the fluid collection. Approximately 10 ml of fluid was aspirated. The pigtail catheter was sutured in place and connected to a J VAC system. The patient tolerated the procedure well and left the department in unchanged condition. IMPRESSION US-guided drain placement as described. Approved by Roddy Morelos MD on 09/27/2020 4:25 PM By my electronic signature, I attest that I have personally reviewed the images for this examination and formulated the interpretations and opinions expressed in this report Finalized by Guy Barrett M.D. on 09/27/2020 4:40 PM. Dictated by Roddy Morelos MD on 09/27/2020 4:23 PM. Performing Organization Address City/State/ZIP Code P sid Number RAD RESULTS * CREATINE KINASE-CPK (09/27/2020 4:39 AM CDT) Only the most recent of 2 results within the time period is included. Creatine Kinase 20 (L) 21 - 215 U/L MAIN LAB Specimen Performing Organization Address City/State/ZIP Code P sid Number MAIN LAB [address] [place] [address] * PROTIME INR (PT) (09/26/2020 6:58 PM CDT) INR 1.2 0.8 - 1.2 [facility] Specimen Blood Performing Organization Address City/State/ZIP Code P sid Number MAIN LAB [address] [place] [address] * CT PELVIS WO/W CONTRAST (09/26/2020 2:34 PM CDT) Specimen Impressions Performed At 1. CT cystogram with posterior superior bladder wall defect and contained [facility] RES[facility] perivesicular contrast extravasation wh ich extends to the rectal stump suture line and adjacent to opacified, tethere d small bowel. 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 2. Extravasation of oral contrast into an anterior abdominal extraperitoneal fluid collection with percutaneous drai n in place at this site. 3. Reflux of contrast into the bilatera l ureters and collecting systems. Left nephroureteral stent remains in place w ithout significant hydronephrosis. Mild right hydronephrosis and dilated right renal pelvis. 4. Interval evolution of right ventral abdominal wall intramuscular hematoma. 5. Prior low anterior resection and rig ht abdominal colostomy without bowel obstruction. 6. Open ventral abdominal wall wound wi th large left ventral abdominal wall hernia containing normal caliber large and small bowel. Findings were discussed with JODI Germain via telephone at 3:05 PM on September 26, 2020. Finalized by Naomie French M.D. on 4:05 PM. Dictated by Naomie French M.D. on 09/26/2020 4:05 PM. Narrative Performed At CT ABDOMEN AND PELVIS (CT CYSTOGRAM) [facility] Clinical Indication: Colovesical fistul a, infected mesh, abscess. Technique: Multiple contiguous axial images were obtained through the abdomen and pelvis following the administration of IV contrast material. Imaging was obtained per CT cystogram protocol with inclusion of portal venous phase imaging through the abdomen/pelvis. Post proces sing coronal and sagittal reconstruction images were made from the axial images. IV contrast: Yes Bowel contrast: Yes Comparison: CT chest, abdomen, pelvis f rom September 12, 2020. FINDINGS: Lower Thorax: No significant residual p leural effusion. Bibasilar subpleural atelectasis and/or scarring. Normal hea rt size without pericardial effusion. Liver and Biliary system: Mild hepatome lorena. No focal liver lesion or biliary ductal dilatation. Numerous dependent g allstones with persistent mild gallbladder dilatation. Patent major po rtal veins. Spleen: Unremarkable. Adrenal Glands and Kidneys: Unremarkabl e right adrenal gland. Stable left adrenal nodule, previously characterize d as an adenoma. Left lower pole renal cyst with additional tiny bilateral josé al hypodensities which are too small to characterize. Removal of bilateral percutaneous nephr ostomy tubes. Left nephroureteral stent remains in place without significant hy dronephrosis. Refluxing contrast into the bilateral ureters and collecting system s. Mild right hydronephrosis and renal pelvis dilatation. Tiny foci of collect ing system gas, presumably related to reflux. Pancreas and Retroperitoneum: Unremarka ble pancreas. Scattered normal size retroperitoneal lymph nodes. Aorta and Major Vessels: Aortoiliac ves sels are normal caliber and contain mild to moderate atherosclerotic plaque. Bowel, Mesentery and Peritoneal space: Prior low anterior resection with right abdominal end colostomy. Large and smal l bowel loops are normal caliber. High density contrast is present within an a nterior abdominal extraperitoneal collection with percutaneous drain cent ered within the collection which measures approximately 7.6 x 2.0 cm (series 3 im age 53). The collection extends superiorly within the midline abdominal wall and adjacent to the anterior left lobe of the liver (series 3 image 28). Numerous small bowel loops are closely apposed to this collection. No signific ant abdominal ascites. Pelvis: Bartlett catheter within the bladd er which when distended with contrast demonstrates a discrete defect at the p osterior superior bladder wall (series 602b image 127) with perivesicular gracy ection of extravasated contrast which abuts the rectal stump suture line (ser ies 602b images 124 through 129). Adjacent tethered, opacified small toro l loops are present. In addition, there is high density contrast and trace gas seen within the vagina (series 602b image 125). No appreciable extension of extra vasated contrast in the rectal stump lumen. Abdominal wall and Osseous Structures: Right ventral abdominal wall colostomy. Percutaneous drain traverses the midlin e ventral abdominal wall and extends to a contrast containing collection describe d above. Large left lateral abdominal hernia containing numerous loops of nor mal caliber small bowel and a portion of the colon. Redemonstration of right ventral abdomi nal wall intramuscular hematoma which is lower density suggesting interval lique faction, now measuring approximately 4.2 x 10.1 cm (series 3 image 45). Open midline ventral abdominal wall wou nd with surrounding soft tissue thickening. Areas of body wall edema an d skin thickening. Old rib fracture deformities and diffuse thoracolumbar s pondylosis with multilevel degenerative listhesis. Procedure Note Interface, Radiant Results - 09/26/2020 4:[address] ABDOMEN AND PELVIS (CT CYSTOGRAM) Clinical Indication: Colovesical fistula, infected mesh, abscess. Technique: Multiple contiguous axial images were obtained through the abdomen and pelvis following the administration of IV contrast material. Imaging was obtained per CT cystogram protocol with inclusion of portal venous phase imaging through the abdomen/pelvis. Post processing coronal and sagittal reconstruction images were made from the axial images. IV contrast: Yes Bowel contrast: Yes Comparison: CT chest, abdomen, pelvis from September 12, 2020. FINDINGS: Lower Thorax: No significant residual pleural effusion. Bibasilar subpleural atelectasis and/or scarring. Normal heart size without pericardial effusion. Liver and Biliary system: Mild hepatomegaly. No focal liver lesion or biliary ductal dilatation. Numerous dependent gallstones with persistent mild gallbladder dilatation. Patent major portal veins. Spleen: Unremarkable. Adrenal Glands and Kidneys: Unremarkable right adrenal gland. Stable left adrenal nodule, previously characterized as an adenoma. Left lower pole renal cyst with additional tiny bilateral renal hypodensities which are too small to characterize. Removal of bilateral percutaneous nephrostomy tubes. Left nephroureteral stent remains in place without significant hydronephrosis. Refluxing contrast into the bilateral ureters and collecting systems. Mild right hydronephrosis and renal pelvis dilatation. Tiny foci of collecting system gas, presumably related to reflux. Pancreas and Retroperitoneum: Unremarkable pancreas. Scattered normal size retroperitoneal lymph nodes. Aorta and Major Vessels: Aortoiliac vessels are normal caliber and contain mild to moderate atherosclerotic plaque. Bowel, Mesentery and Peritoneal space: Prior low anterior resection with right abdominal end colostomy. Large and small bowel loops are normal caliber. High density contrast is present within an anterior abdominal extraperitoneal collection with percutaneous drain centered within the collection which measures approximately 7.6 x 2.0 cm (series 3 image 51). The collection extends superiorly within the midline abdominal wall and adjacent to the anterior left lobe of the liver (series 3 image 28). Numerous small bowel loops are closely apposed to this collection. No significant abdominal ascites. Pelvis: Bartlett catheter within the bladder which when distended with contrast demonstrates a discrete defect at the posterior superior bladder wall (series 602b image 127) with perivesicular collection of extravasated contrast which abuts the rectal stump suture line (series 602b images 124 through 129). Adjacent tethered, opacified small bowel loops are present. In addition, there is high density contrast and trace gas seen within the vagina (series 602b image 125). No appreciable extension of extravasated contrast in the rectal stump lumen. Abdominal wall and Osseous Structures: Right ventral abdominal wall colostomy. Percutaneous drain traverses the midline ventral abdominal wall and extends to a contrast containing collection described above. Large left lateral abdominal hernia containing numerous loops of normal caliber small bowel and a portion of the colon. Redemonstration of right ventral abdominal wall intramuscular hematoma which is lower density suggesting interval liquefaction, now measuring approximately 4.2 x 10.1 cm (series 3 image 45). Open midline ventral abdominal wall wound with surrounding soft tissue thickening. Areas of body wall edema and skin thickening. Old rib fracture deformities and diffuse thoracolumbar spondylosis with multilevel degenerative listhesis. IMPRESSION 1. CT cystogram with posterior superior bladder wall defect and contained perivesicular contrast extravasation which extends to the rectal stump suture line and adjacent to opacified, tethered small bowel. 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 2. Extravasation of oral contrast into a n anterior abdominal extraperitoneal fluid collection with percutaneous drain in place at this site. 3. Reflux of contrast into the bilateral ureters and collecting systems. Left nephroureteral stent remains in place without significant hydronephrosis. Mild right hydronephrosis and dilated right renal pelvis. 4. Interval evolution of right ventral a bdominal wall intramuscular hematoma. 5. Prior low anterior resection and righ t abdominal colostomy without bowel obstruction. 6. Open ventral abdominal wall wound wit h large left ventral abdominal wall hernia containing normal caliber large and small bowel. Findings were discussed with JODI Briceño via telephone at 3:05 PM on September 26, 2020. Finalized by Naomie French M.D. on 09/26/2020 4:05 PM. Dictated by Naomie French M.D. on 09/26/2020 4:05 PM. Performing Organization Address City/State/ZIP Code P sid Number [facility] RESULTS * CT ABDOMEN W CONTRAST (09/26/2020 2:34 PM CDT) Specimen Impressions Performed At 1. CT cystogram with posterior superior bladder wall defect and contained [facility] RESULTS perivesicular contrast extravasation wh ich extends to the rectal stump suture line and adjacent to opacified, tethere d small bowel. 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 2. Extravasation of oral contrast into an anterior abdominal extraperitoneal fluid collection with percutaneous drai n in place at this site. 3. Reflux of contrast into the bilatera l ureters and collecting systems. Left nephroureteral stent remains in place w ithout significant hydronephrosis. Mild right hydronephrosis and dilated right renal pelvis. 4. Interval evolution of right ventral abdominal wall intramuscular hematoma. 5. Prior low anterior resection and rig ht abdominal colostomy without bowel obstruction. 6. Open ventral abdominal wall wound wi th large left ventral abdominal wall hernia containing normal caliber large and small bowel. Findings were discussed with JODI Germain via telephone at 3:05 PM on September 26, 2020. Finalized by Naomie French M.D. on 3:16 PM. Dictated by Naomie French M.D. on 09/26/2020 2:40 PM. Narrative Performed At CT ABDOMEN AND PELVIS (CT CYSTOGRAM) [facility] RES[facility] Clinical Indication: Colovesical fistul a, infected mesh, abscess. Technique: Multiple contiguous axial images were obtained through the abdomen and pelvis following the administration of IV contrast material. Imaging was obtained per CT cystogram protocol with inclusion of portal venous phase imaging through the abdomen/pelvis. Post proces sing coronal and sagittal reconstruction images were made from the axial images. IV contrast: Yes Bowel contrast: Yes Comparison: CT chest, abdomen, pelvis f rom September 12, 2020. FINDINGS: Lower Thorax: No significant residual p leural effusion. Bibasilar subpleural atelectasis and/or scarring. Normal hea rt size without pericardial effusion. Liver and Biliary system: Mild hepatome lorena. No focal liver lesion or biliary ductal dilatation. Numerous dependent g allstones with persistent mild gallbladder dilatation. Patent major po rtal veins. Spleen: Unremarkable. Adrenal Glands and Kidneys: Unremarkabl e right adrenal gland. Stable left adrenal nodule, previously characterize d as an adenoma. Left lower pole renal cyst with additional tiny bilateral josé al hypodensities which are too small to characterize. Removal of bilateral percutaneous nephr ostomy tubes. Left nephroureteral stent remains in place without significant hy dronephrosis. Refluxing contrast into the bilateral ureters and collecting system s. Mild right hydronephrosis and renal pelvis dilatation. Tiny foci of collect ing system gas, presumably related to reflux. Pancreas and Retroperitoneum: Unremarka ble pancreas. Scattered normal size retroperitoneal lymph nodes. Aorta and Major Vessels: Aortoiliac ves sels are normal caliber and contain mild to moderate atherosclerotic plaque. Bowel, Mesentery and Peritoneal space: Prior low anterior resection with right abdominal end colostomy. Large and smal l bowel loops are normal caliber. High density contrast is present within an a nterior abdominal extraperitoneal collection with percutaneous drain cent ered within the collection which measures approximately 7.6 x 2.0 cm (series 3 im age 51). The collection extends superiorly within the midline abdominal wall and adjacent to the anterior left lobe of the liver (series 3 image 28). Numerous small bowel loops are closely apposed to this collection. No signific ant abdominal ascites. Pelvis: Bartlett catheter within the bladd er which when distended with contrast demonstrates a discrete defect at the p osterior superior bladder wall (series 602b image 127) with perivesicular gracy ection of extravasated contrast which abuts the rectal stump suture line (ser ies 602b images 124 through 129). Adjacent tethered, opacified small toro l loops are present. In addition, there is high density contrast and trace gas seen within the vagina (series 602b image 125). No appreciable extension of extra vasated contrast in the rectal stump lumen. Abdominal wall and Osseous Structures: Right ventral abdominal wall colostomy. Percutaneous drain traverses the midlin e ventral abdominal wall and extends to a contrast containing collection describe d above. Large left lateral abdominal hernia containing numerous loops of nor mal caliber small bowel and a portion of the colon. Redemonstration of right ventral abdomi nal wall intramuscular hematoma which is lower density suggesting interval lique faction, now measuring approximately 4.2 x 10.1 cm (series 3 image 45). Open midline ventral abdominal wall wou nd with surrounding soft tissue thickening. Areas of body wall edema an d skin thickening. Old rib fracture deformities and diffuse thoracolumbar s pondylosis with multilevel degenerative listhesis. Procedure Note Interface, Radiant Results - 09/26/2020 4:[address] ABDOMEN AND PELVIS (CT CYSTOGRAM) Clinical Indication: Colovesical fistula, infected mesh, abscess. Technique: Multiple contiguous axial images were obtained through the abdomen and pelvis following the administration of IV contrast material. Imaging was obtained per CT cystogram protocol with inclusion of portal venous phase imaging through the abdomen/pelvis. Post processing coronal and sagittal reconstruction images were made from the axial images. IV contrast: Yes Bowel contrast: Yes Comparison: CT chest, abdomen, pelvis from September 12, 2020. FINDINGS: Lower Thorax: No significant residual pleural effusion. Bibasilar subpleural atelectasis and/or scarring. Normal heart size without pericardial effusion. Liver and Biliary system: Mild hepatomegaly. No focal liver lesion or biliary ductal dilatation. Numerous dependent gallstones with persistent mild gallbladder dilatation. Patent major portal veins. Spleen: Unremarkable. Adrenal Glands and Kidneys: Unremarkable right adrenal gland. Stable left adrenal nodule, previously characterized as an adenoma. Left lower pole renal cyst with additional tiny bilateral renal hypodensities which are too small to characterize. Removal of bilateral percutaneous nephrostomy tubes. Left nephroureteral stent remains in place without significant hydronephrosis. Refluxing contrast into the bilateral ureters and collecting systems. Mild right hydronephrosis and renal pelvis dilatation. Tiny foci of collecting system gas, presumably related to reflux. Pancreas and Retroperitoneum: Unremarkable pancreas. Scattered normal size retroperitoneal lymph nodes. Aorta and Major Vessels: Aortoiliac vessels are normal caliber and contain mild to moderate atherosclerotic plaque. Bowel, Mesentery and Peritoneal space: Prior low anterior resection with right abdominal end colostomy. Large and small bowel loops are normal caliber. High density contrast is present within an anterior abdominal extraperitoneal collection with percutaneous drain centered within the collection which measures approximately 7.6 x 2.0 cm (series 3 image 51). The collection extends superiorly within the midline abdominal wall and adjacent to the anterior left lobe of the liver (series 3 image 28). Numerous small bowel loops are closely apposed to this collection. No significant abdominal ascites. Pelvis: Bartlett catheter within the bladder which when distended with contrast demonstrates a discrete defect at the posterior superior bladder wall (series 602b image 127) with perivesicular collection of extravasated contrast which abuts the rectal stump suture line (series 602b images 124 through 129). Adjacent tethered, opacified small bowel loops are present. In addition, there is high density contrast and trace gas seen within the vagina (series 602b image 125). No appreciable extension of extravasated contrast in the rectal stump lumen. Abdominal wall and Osseous Structures: Right ventral abdominal wall colostomy. Percutaneous drain traverses the midline ventral abdominal wall and extends to a contrast containing collection described above. Large left lateral abdominal hernia containing numerous loops of normal caliber small bowel and a portion of the colon. Redemonstration of right ventral abdominal wall intramuscular hematoma which is lower density suggesting interval liquefaction, now measuring approximately 4.2 x 10.1 cm (series 3 image 45). Open midline ventral abdominal wall wound with surrounding soft tissue thickening. Areas of body wall edema and skin thickening. Old rib fracture deformities and diffuse thoracolumbar spondylosis with multilevel degenerative listhesis. IMPRESSION 1. CT cystogram with posterior superior bladder wall defect and contained perivesicular contrast extravasation which extends to the rectal stump suture line and adjacent to opacified, tethered small bowel. 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 2. Extravasation of oral contrast into a n anterior abdominal extraperitoneal fluid collection with percutaneous drain in place at this site. 3. Reflux of contrast into the bilateral ureters and collecting systems. Left nephroureteral stent remains in place without significant hydronephrosis. Mild right hydronephrosis and dilated right renal pelvis. 4. Interval evolution of right ventral a bdominal wall intramuscular hematoma. 5. Prior low anterior resection and righ t abdominal colostomy without bowel obstruction. 6. Open ventral abdominal wall wound wit h large left ventral abdominal wall hernia containing normal caliber large and small bowel. Findings were discussed with JODI Briceño via telephone at 3:05 PM on September 26, 2020. Finalized by Naomie French M.D. on 09/26/2020 3:16 PM. Dictated by Naomie French M.D. on 09/26/2020 2:40 PM. Performing Organization Address City/State/ZIP Code P sid Number [facility] * VANCOMYCIN 2HR POST DOSE (09/14/2020 2:25 PM CDT) Vancomycin 2HR 30.7 ug/mL [facility] POST Dose Specimen Blood Performing Organization Address City/[facility] Code P sid Number [facility] [address] [place] [address] * VANCOMYCIN TROUGH (09/14/2020 8:10 AM CDT) Only the most recent of 2 results within the time period is included. Vancomycin 14.6 10.0 - 20.0 MCG/ML [facility] Trough Specimen Blood, venous - Blood Performing Organization Address City/[facility] Code P sid Number [facility] [address] [place] [address] * CT GUIDE ABCESS DRAIN W CATH (09/13/2020 5:29 PM CDT) Specimen Impressions Performed At Successful abdominal abscess drain placement as bola led above. [facility] I, Levar Beckwith M.D., the attending radio logist, was present for the procedure, personally reviewed the images, and for mulated the interpretations and opinions expressed in this report. @TT Finalized by LEVAR BECKWITH on 09/14/2020 10:5 6 AM. Dictated by LEVAR BECKWITH on 09/14/2020 10:55 AM. Narrative Performed At Procedures: [facility] 1. CT-guided abdominal abscess drain pl acement 2. Moderate sedation HISTORY: Abdominal abscess TECHNIQUE: I was personally responsible for the ad ministration of moderate sedation services during the procedure performed and I confirm requirements described in CPT section on moderate sedation were f ollowed, including the use of an independent trained observer who had no other duties during the procedure. See nursing log for complete details; the d rugs utilized were: Versed IV, fentanyl IV After explaining the procedure, risks, benefits and alternatives informed consent was obtained. The patient was b rought to the CT scanner placed supine position prepped and draped usual steri le fashion. Maximum sterile techniques were taken. Initial CT images were obta ined to identify the abdominal abscess. Local anesthesia was achieved using 1% lidocaine solution. A small dermatotomy was made and under CT guidance an 18-ga uge Seldinger needle was advanced into the abdominal abscess. Immediate aspira tion revealed dark reddish fluid. Over an Amplatz wire a 10 Martiniquais drain was succ essfully deployed under CT guidance. The catheter was sutured in using due to sh ow Ethilon suture and attached to a J Vac bag. Approximately 150 cc was aspirated . The patient tolerated the procedure well and there were no immediate post p rocedure complications. FINDINGS: Abdominal abscess corresponding the abs cess seen on prior imaging. Procedure Note Interface, Radiant Results - 09/14/2020 11:00 AM CDT Procedures: 1. CT-guided abdominal abscess drain odessa cement 2. Moderate sedation HISTORY: Abdominal abscess TECHNIQUE: I was personally responsible for the administration of moderate sedation services during the procedure performed and I confirm requirements described in CPT section on moderate sedation were followed, including the use of an independent trained observer who had no other duties during the procedure. See nursing log for complete details; the drugs utilized were: Versed IV, fentanyl IV After explaining the procedure, risks, benefits and alternatives informed consent was obtained. The patient was brought to the CT scanner placed supine position prepped and draped usual sterile fashion. Maximum sterile techniques were taken. Initial CT images were obtained to identify the abdominal abscess. Local anesthesia was achieved using 1% lidocaine solution. A small dermatotomy was made and under CT guidance an 18-gauge Seldinger needle was advanced into the abdominal abscess. Immediate aspiration revealed dark reddish fluid. Over an Amplatz wire a 10 Martiniquais drain was successfully deployed under CT guidance. The catheter was sutured in using due to show Ethilon suture and attached to a J Vac bag. Approximately 150 cc was aspirated. The patient tolerated the procedure well and there were no immediate post procedure complications. FINDINGS: Abdominal abscess corresponding the abscess seen on prior imaging. IMPRESSION Successful abdominal abscess drain placement as detailed above. Levar Osborne M.D., the attending radiologist, was present for the procedure, personally reviewed the images, and formulated the interpretations and opinions expressed in this report. @TT Finalized by LEVAR BECKWITH on 09/14/2020 10:56 AM. Dictated by LEVAR BECKWITH on 09/14/2020 10:55 AM. Performing Organization Address City/State/ZIP Code P sid Number [facility] * BLOOD BANK SAMPLE HOLD (09/13/2020 7:30 AM CDT) Only the most recent of 2 results within the time period is included. BB Sample hold IN LAB [facility] Specimen Performing Organization Address City/State/ZIP Code P sid Number [facility] [address] [place] [address] * LACTIC ACID (BG - RAPID LACTATE) (09/13/2020 7:30 AM CDT) Only the most recent of 4 results within the time period is included. Lactic Acid,BG 1.3 0.5 - 2.0 MMOL/L [facility] Specimen Performing Organization Address City/[facility]/ZIP Code P sid Number [facility] [address] [place] [address] * CT CHEST W CONTRAST (09/12/2020 7:27 PM CDT) Specimen Impressions Performed At CHEST: [facility] 1. Bilateral lower lobe dependent con solidations and air bronchograms likely atelectasis rather than pneumonia. Trac e amount of dependent pleural fluid. 2. Coronary artery disease. 3. Mild emphysema. 4. A few tiny pulmonary nodules are n oted which are likely benign. However given the patient's history of smoking, a follow-up CT in one year may be beneficial to document stability. ABDOMEN AND PELVIS: 1. Interval low anterior resection wi th creation of a right hemiabdominal colostomy. Development of a small bowel obstruction with fluid dilated small bowel extending into the left lateral a bdominal wall hernia. No pneumatosis or portal venous gas. 2. Development of a mixed density mil dly complex fluid collection along the anterior abdominal wall with a few foci of gas centered around the incision site. This is indeterminate and may rep resent a postoperative collection or blood products with questionable commun ication with the adjacent right rectus hematoma via the incision site. A bowel leak is considered less likely. Superimposed infection within the colle ction possible, consider short-term follow-up CT with opacification of the bowel with oral contrast. 3. Right rectus sheath hematoma, agai n with possible communication with the adjacent peritoneal collection via the incision site. 4. Dependent cholelithiasis within a mildly dilated gallbladder. Pericholecystic fluid is likely seconda ry to the above-described fluid collection and ascites. Findings are fa vored secondary to a fasting state, as there is no gallbladder wall thickening to suggest acute cholecystitis. 5. A small partially organized simple fluid collection is noted along the caudal aspect of the rectal stump. This likely reflects postoperative fluid. Suture breakdown and bowel leak conside red much less likely. Attention on short interval follow-up imaging is suggested . Dr. Rutherford discussed these results over the phone with Dr. Sanders at 8:30 PM on 09/12/2020. By my electronic signature, I attest th at I have personally reviewed the images for this examination and formulated the interpretations and opinions expressed in this report Finalized by Aaron Kirkland MD, PhD on 09/12/2020 8:58 PM. Dictated by Levar Rutherford M.D. on 09/12/2020 7:38 PM. Narrative Performed At CT CHEST, ABDOMEN AND PELVIS [facility] Clinical Indication: Elevated white b lood cell count, evaluate for fluid collection or abscess. Technique: Multiple contiguous axial im ages were obtained through the chest, abdomen and pelvis following the admini stration of IV contrast material. Portal venous phase of postcontrast imaging wa s obtained. Post processing coronal and sagittal reconstruction images were mad e from the axial images. IV contrast: Yes Bowel contrast: None Comparison: CT abdomen/pelvis 07/12/2020 CHEST FINDINGS: Lower Neck: Unremarkable. Axilla, Mediastinum and Zahra: No axilla ry lymphadenopathy. There are a few mildly enlarged mediastinal lymph nodes with a reference pretracheal node measuring 1.8 x 1.2 cm (series 6 image 49). Heart and Great Vessels: Normal sized h eart without a pericardial effusion. At least mild coronary artery and aortic v alve calcifications. Normal caliber great vessels. A right PICC is in place with the tip terminating at the superior cavoatrial junction. Airway, Lungs and Pleura: Patent centra l airways. Redemonstration of small bilateral pleural effusions, improved s brenna the June examination, with associated adjacent lower lobe atelecta sis. Mild emphysema with scattered areas of scarring. No pneumothorax. There are a few scattered sub-5 mm pulmonary nodules, for example along the right mi nor fissure (series 6 image 75). 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 Moderate bilateral glenohumeral osteoarthrosis. No destructive osseous lesion. ABDOMEN AND PELVIS FINDINGS: Liver and Biliary system: Normal sized liver without a discrete hepatic lesion. The major portal veins are patent. Depe ndent cholelithiasis with borderline dilation of the gallbladder and a small amount of pericholecystic fluid. No gallbladder wall thickening. Spleen: Unremarkable. Adrenal Glands and Kidneys: Normal righ t adrenal gland. Stable left adrenal nodule previously characterized as a li pid rich adenoma. Left lower pole renal cyst. Bilateral percutaneous nephrostom y tubes with interval placement of a left-sided nephroureteral stent. No hyd ronephrosis. Pancreas and Retroperitoneum: Unremarka ble pancreas. No retroperitoneal lymphadenopathy. Aorta and Major Vessels: Normal caliber abdominal aorta with mild calcific aortoiliac atherosclerosis. Bowel, Mesentery and Peritoneal space: Interval low anterior resection with placement of a right hemiabdominal colo stomy. Development of mildly dilated loops of small bowel in the left hemiab domen in the left abdominal wall hernia sac with a transition point located jose l ng the inferior wall of the hernia sac or bowel is draped at an acute angle (seri es 11 image 44). There are small volume ascites. There is a mixed density mildl y complex fluid collection with a few foci of gas along the anterior peritone al wall measuring approximately 8.4 x 4.0 cm (series 7 image 61) and 7.7 cm crani ocaudal (sagittal image 142). Pelvis: The urinary bladder is decompre ssed around a Bartlett catheter. Normal-appearing rectal stump. There is a small amount of partially organized fluid along the cephalad aspect of the rectal stump measuring 5.9 x 2.4 cm (series 7 image 71). No pelvic lymphade nopathy. Abdominal wall and Osseous Structures: Interval ventral midline incision with development of a right rectus sheath he matoma measuring 8.9 x 3.8 cm (series 7 image 57). Moderate degenerative change s of the lumbar spine with mild retrolisthesis of L1-L2, L2-L3, and L3- L4 with mild anterolisthesis of L4-L5, unchanged from the prior exam. No destr uctive osseous lesion. Moderate body wall edema. Large left lateral abdominal wal l hernia containing mesenteric fat and loops of fluid dilated small bowel. Rig ht ventral abdominal wall colostomy. Procedure Note Interface, Radiant Results - 09/12/2020 9:[address] CHEST, ABDOMEN AND PELVIS Clinical Indication: Elevated white blood cell count, evaluate for fluid collection or abscess. Technique: Multiple contiguous axial images were obtained through the chest, abdomen and pelvis following the administration of IV contrast material. Portal venous phase of postcontrast imaging was obtained. Post processing coronal and sagittal reconstruction images were made from the axial images. IV contrast: Yes Bowel contrast: None Comparison: CT abdomen/pelvis 07/12/2020 CHEST FINDINGS: Lower Neck: Unremarkable. Axilla, Mediastinum and Zahra: No axillary lymphadenopathy. There are a few mildly enlarged mediastinal lymph nodes with a reference pretracheal node measuring 1.8 x 1.2 cm (series 6 image 49). Heart and Great Vessels: Normal sized heart without a pericardial effusion. At least mild coronary artery and aortic valve calcifications. Normal caliber great vessels. A right PICC is in place with the tip terminating at the superior cavoatrial junction. Airway, Lungs and Pleura: Patent central airways. Redemonstration of small bilateral pleural effusions, improved since the June examination, with associated adjacent lower lobe atelectasis. Mild emphysema with scattered areas of scarring. No pneumothorax. There are a few scattered sub-5 mm pulmonary nodules, for example along the right minor fissure (series 6 image 75). 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 Moderate bilateral glenohumeral osteoarthrosis. No destructive osseous lesion. ABDOMEN AND PELVIS FINDINGS: Liver and Biliary system: Normal sized liver without a discrete hepatic lesion. The major portal veins are patent. Dependent cholelithiasis with borderline dilation of the gallbladder and a small amount of pericholecystic fluid. No gallbladder wall thickening. Spleen: Unremarkable. Adrenal Glands and Kidneys: Normal right adrenal gland. Stable left adrenal nodule previously characterized as a lipid rich adenoma. Left lower pole renal cyst. Bilateral percutaneous nephrostomy tubes with interval placement of a left-sided nephroureteral stent. No hydronephrosis. Pancreas and Retroperitoneum: Unremarkable pancreas. No retroperitoneal lymphadenopathy. Aorta and Major Vessels: Normal caliber abdominal aorta with mild calcific aortoiliac atherosclerosis. Bowel, Mesentery and Peritoneal space: Interval low anterior resection with placement of a right hemiabdominal colostomy. Development of mildly dilated loops of small bowel in the left hemiabdomen in the left abdominal wall hernia sac with a transition point located along the inferior wall of the hernia sac or bowel is draped at an acute angle (series 11 image 44). There are small volume ascites. There is a mixed density mildly complex fluid collection with a few foci of gas along the anterior peritoneal wall measuring approximately 8.4 x 4.0 cm (series 7 image 61) and 7.7 cm craniocaudal (sagittal image 142). Pelvis: The urinary bladder is decompressed around a Bartlett catheter. Normal- appearing rectal stump. There is a small amount of partially organized fluid along the cephalad aspect of the rectal stump measuring 5.9 x 2.4 cm (series 7 image 71). No pelvic lymphadenopathy. Abdominal wall and Osseous Structures: Interval ventral midline incision with development of a right rectus sheath hematoma measuring 8.9 x 3.8 cm (series 7 image 57). Moderate degenerative changes of the lumbar spine with mild retrolisthesis of L1-L2, L2-L3, and L3-L4 with mild anterolisthesis of L4-L5, unchanged from the prior exam. No destructive osseous lesion. Moderate body wall edema. Large left lateral abdominal wall hernia containing mesenteric fat and loops of fluid dilated small bowel. Right ventral abdominal wall colostomy. IMPRESSION CHEST: 1. Bilateral lower lobe dependent conso lidations and air bronchograms likely atelectasis rather than pneumonia. Trace amount of dependent pleural fluid. 2. Coronary artery disease. 3. Mild emphysema. 4. A few tiny pulmonary nodules are not ed which are likely benign. However given the patient's history of smoking, a follow-up CT in one year may be beneficial to document stability. ABDOMEN AND PELVIS: 1. Interval low anterior resection with creation of a right hemiabdominal colostomy. Development of a small bowel obstruction with fluid dilated small bowel extending into the left lateral abdominal wall hernia. No pneumatosis or portal venous gas. 2. Development of a mixed density mildl y complex fluid collection along the anterior abdominal wall with a few foci of gas centered around the incision site. This is indeterminate and may represent a postoperative collection or blood products with questionable communication with the adjacent right rectus hematoma via the incision site. A bowel leak is considered less likely. Superimposed infection within the collection possible, consider short-term follow-up CT with opacification of the bowel with oral contrast. 3. Right rectus sheath hematoma, again with possible communication with the adjacent peritoneal collection via the incision site. 4. Dependent cholelithiasis within a mi ldly dilated gallbladder. Pericholecystic fluid is likely secondary to the above-described fluid collection and ascites. Findings are favored secondary to a fasting state, as there is no gallbladder wall thickening to suggest acute cholecystitis. 5. A small partially organized simple f luid collection is noted along the caudal aspect of the rectal stump. This likely reflects postoperative fluid. Suture breakdown and bowel leak considered much less likely. Attention on short interval follow-up imaging is suggested. Dr. Rutherford discussed these results over the phone with Dr. Sanders at 8:30 PM on 09/12/2020. By my electronic signature, I attest that I have personally reviewed the images for this examination and formulated the interpretations and opinions expressed in this report Finalized by Aaron Kirkland MD, PhD on 09/12/2020 8:58 PM. Dictated by Levar Rutherford M.D. on 09/12/2020 7:38 PM. Performing Organization Address City/State/ZIP Code P sid Number [facility] RAD RESULTS * POC BLOOD GAS ARTERIAL (09/08/2020 12:42 PM CDT) PH-ART-POC 7.46 (H) 7.35 - 7.45 [facility] DWO3-IJN-ATX 36 35 - 45 MMHG [facility] PO2-ART-POC 56 (L) 80 - 100 MMHG [facility] Base Ex-ART-POC 2.0 MMOL/L [facility] O2 Sat-ART-POC 90.0 (L) 95 - 99 % [facility] Bicarbonate-ART 26.0 21 - 28 MMOL/L [facility] -POC Specimen Performing Organization Address City/[facility]/ZIP Code P sid Number [facility] [address] [place] [address] * CHEST 2 VIEWS (09/08/2020 11:09 AM CDT) Specimen Impressions Performed At 1. Placement of gastric tube as described. [facility] RAD RESULTS 2. Small left greater than right pleu ral effusions with bibasilar left greater than right opacities, which may represe nt atelectasis and/or pneumonia. 3. Mild diffuse bilateral interstitia l opacities, likely representing pulmonary edema. Approved by Brayan Brown M.D. on 09/08 12:01 PM By my electronic signature, I attest th at I have personally reviewed the images for this examination and formulated the interpretations and opinions expressed in this report Finalized by Sixto Ely M.D. on 1:04 PM. Dictated by Brayan Brown M.D. on 09/08/2020 11:21 AM. Narrative Performed At CHEST 2 VIEWS [facility] RAD RESULTS INDICATION: Increasing oxygen requireme nt. COMPARISON STUDY: Chest radiograph 2020. FINDINGS: Support devices: Gastric tube passes be low the diaphragm and out of field of view. Right arm PICC remains in similar position. Lungs/Pleura: Low lung volumes. Small b ilateral pleural effusions, left greater than right, with mild bibasilar opaciti es, left greater than right. Mild bilateral interstitial opacities. No si gnificant pneumothorax. Heart and Mediastinum: The cardiomedias tinal silhouette is normal. Skeletal Structures and Soft Tissues: T he visualized skeletal structures and soft tissues demonstrate no acute abnor mality. Procedure Note Interface, Radiant Results - 09/08/2020 1:07 PM CDT CHEST 2 VIEWS INDICATION: Increasing oxygen requirement. COMPARISON STUDY: Chest radiograph 07/16/2020. FINDINGS: Support devices: Gastric tube passes below the diaphragm and out of field of view. Right arm PICC remains in similar position. Lungs/Pleura: Low lung volumes. Small bilateral pleural effusions, left greater than right, with mild bibasilar opacities, left greater than right. Mild bilateral interstitial opacities. No significant pneumothorax. Heart and Mediastinum: The cardiomediastinal silhouette is normal. Skeletal Structures and Soft Tissues: The visualized skeletal structures and soft tissues demonstrate no acute abnormality. IMPRESSION 1. Placement of gastric tube as describ ed. 2. Small left greater than right pleura l effusions with bibasilar left greater than right opacities, which may represent atelectasis and/or pneumonia. 3. Mild diffuse bilateral interstitial opacities, likely representing pulmonary edema. Approved by Brayan Brown M.D. on 09/08/2020 12:01 PM By my electronic signature, I attest that I have personally reviewed the images for this examination and formulated the interpretations and opinions expressed in this report Finalized by Sixto Ely M.D. on 09/08/2020 1:04 PM. Dictated by Brayan Brown M.D. on 09/08/2020 11:21 AM. Performing Organization Address [facility]/ZIP Code P sid Number RAD RESULTS * BLOOD CULTURE MOLECULAR DETECTION (09/08/2020 4:10 AM CDT) Battery Name BLOOD CULTURE MOLECULAR [facility] DETECTION Report Status EDITED RESULT - FINAL [facility] 09/09/2020 Specimen BLOOD BLOOD LINE DRAW RIGHT [facility] L AB Description PICC LINE Special NONE MAIN LAB Requests Culture Staphylococcus epidermidis MAIN LA B detected Culture mecA/mecC gene detected [facility] Methicillin resistant Comment: Specimen was tested for the following bacteria: Bacillus cereus group, Bacillus subtilis group, Corynebacterium spp, Cutibacterium (Propionibacterium) acnes, Enterococcus spp, Enterococcus faecalis, Enterococcus faecium, Lactobacillus species, Listeria spp, Listeria monocytogenes, Micrococcus spp, Staphylococcus spp, Staphylococcus aureus, Staphylococcus epidermidis, Staphylococcus lugdunensis, Streptococcus spp, Streptococcus agalactiae (GBS), Streptococcus anginosus group, Streptococcus pneumoniae, Streptococcus pyogenes (GAS), lou-Gram negative, and lou-Brenda species. Specimen was tested for the following resistance genes: mecA, mecC, Enoch, vanB. Modified Report Culture Probable contaminant comment MAIN LAB removed Specimen Blood - Blood,Line Draw Performing Organization Address [facility] P sid Number MAIN LAB [address] [place] [address] * PROCALCITONIN (09/08/2020 3:30 AM CDT) Procalcitonin 0.44 ng/mL MAIN LAB Comment: Suspected Lower Respiratory Tract Infection: >0.25 ng/mL-Increased likeihood bacterial infection Suspected Sepsis: >0.5 ng/mL-Increased likelihood sepsis >2.0 ng/mL-High risk of sepsis/septic shock Specimen Performing Organization Address [facility] P sid Number MAIN LAB [address] [place] [address] * ABDOMEN AP ONLY (09/07/2020 10:22 AM CDT) Only the most recent of 2 results within the time period is included. Specimen Impressions Performed At Intragastric tube placement. RAD RESULTS Finalized by Smith Parker on 09/07/2020 11:55 AM. Dictated by Radha Wolff M.D. on 09/08/19 11:54 AM. Narrative Performed At ABDOMEN AP ONLY [facility] RAD RESULTS Clinical Indication: Female, 70 years o ld. NG tube placement. Comparison: Same-day abdominal radiogra ph. Findings: AP semierect abdominal radiograph obtai mayur with exclusion of the lower abdomen. Placement of a nasogastric tube, which terminates in the gastric body. Bilateral percutaneous drain and tubes and a left nephroureteral stent are stable in position. Midline skin erum. No dila otoniel loops of bowel. Bibasilar opacities with small left pleural effusion. Procedure Note Interface, Radiant Results - 09/07/2020 11:58 AM CDT ABDOMEN AP ONLY Clinical Indication: Female, 70 years old. NG tube placement. Comparison: Same-day abdominal radiograph. Findings: AP semierect abdominal radiograph obtained with exclusion of the lower abdomen. Placement of a nasogastric tube, which terminates in the gastric body. Bilateral percutaneous drain and tubes and a left nephroureteral stent are stable in position. Midline skin erum. No dilated loops of bowel. Bibasilar opacities with small left pleural effusion. IMPRESSION Intragastric tube placement. Finalized by Radha Wolff M.D. on 09/07/2020 11:55 AM. Dictated by Radha Wolff M.D. on 09/07/2020 11:54 AM. Performing Organization Address City/State/ZIP Code P sid Number [facility] RAD RESULTS * TRANSFUSE RBC'S (09/06/2020 12:21 PM CDT) Only the most recent of 4 results within the time period is included. Specimen Blood * A-LINE INSERTION (09/04/2020 1:28 PM CDT) Narrative Performed At [facility] 09/04/2020 1: 29 PM Anesthesia Procedure: Arterial Line [place] cement A-LINE INSERTION Date/Time: 09/04/2020 11:50 AM Patient location: OR Indications: frequent labs and hemodyna remi monitoring Preprocedure checklist performed: 2 pat ient identifiers, risks & benefits discussed, patient evaluated, timeout p erformed, consent obtained, patient being monitored and sterile drape Sterile technique: - Proper hand washing - Cap, mask - Sterile gloves - Skin prep for antisepsis Arterial Line Procedure Patient sedated: yes (see MAR) Sedation type: general; Artery prepped with chlorhexidine; skin prep agent completely dried prior to procedure. Location: radial artery Laterality: right Technique: palpation Needle gauge: 20 G Number of attempts: 2 Procedure Outcome Catheter secured with adhesive dressing applied Events: no complications noted during i nsertion and skin intact, warm, and dry Observation: pt tolerated well Performed by: Lilly Strickland MD Authorized by: Lilly Strickland MD * GLUCOSE,BG (09/04/2020 1:17 PM CDT) Only the most recent of 2 results within the time period is included. Glucose 161 (H) 70 - 100 MG/DL MAIN LAB Specimen Blood Performing Organization Address City/[facility] Code P sid Number MAIN LAB [address] [place] [address] * SODIUM,BG (09/04/2020 1:17 PM CDT) Only the most recent of 2 results within the time period is included. Sodium 136 (L) 137 - 147 MMOL/L MAIN LAB Specimen Blood Performing Organization Address [facility] P sid Number MAIN LAB [address] [place] [address] * POTASSIUM, BG (09/04/2020 1:17 PM CDT) Only the most recent of 2 results within the time period is included. Potassium 4.2 3.5 - 5.1 MMOL/L [facility] Specimen Blood Performing Organization Address [facility] P sid Number MAIN LAB [address] [place] [address] * IONIZED CALCIUM,BG (09/04/2020 1:17 PM CDT) Only the most recent of 2 results within the time period is included. Ionized Calcium 1.12 1.0 - 1.3 MMOL/L MAIN LAB Specimen Blood Performing Organization Address [facility] P sid Number MAIN LAB [address] [place] [address] * HEMOGLOBIN & HEMATOCRIT, BG (09/04/2020 1:17 PM CDT) Only the most recent of 2 results within the time period is included. Hemoglobin BG 12.3 12.0 - 15.0 GM/DL [facility] MAIN [facility] Hematocrit BG 38.0 36 - 45 % [facility] Specimen Blood Performing Organization Address City/[facility] Code P sid Number MAIN LAB [address] [place] [address] * BLOOD GASES, ARTERIAL (09/04/2020 1:17 PM CDT) Only the most recent of 2 results within the time period is included. pH-Arterial 7.36 7.35 - 7.45 [facility] pCO2-Arterial 41 35 - 45 MMHG [facility] pO2-Arterial 123 (H) 80 - 100 MMHG [facility] Base 2.1 MMOL/L [facility] Deficit-Arteria l O2 Sat-Arterial 98.2 95 - 99 % [facility] Bicarbonate-ART 22.7 21 - 28 MMOL/L [facility] -Murali Specimen Blood, arterial - Blood Performing Organization Address City/[facility] Code P sid Number MAIN LAB [address] [place] [address] * SURGICAL PATHOLOGY (09/04/2020 1:01 PM CDT) PATHOLOGY [email or web address] Department of Pathology and Laboratory Medicine [address] [place] [address] Surgical Pathology Office: [phone] SURGICAL PATHOLOGY REPORT NAME: FARIHA TORRESJOSUE Mtz SURG PATH #: [id number] MR #: [id number] SPECIMEN CLASS: SR BILLING #: [id number] ALT ID #: LOCATION: HC8 DATE OF PROCEDURE: 09/04/2020 AGE: 70 SEX: F DATE RECEIVED: 09/04/2020 : 1950 TIME RECEIVED: 15:14 PHYSICIAN: LORENA MOY MD DATE OF REPORT: 09/05/2020 COPY TO: BRAN MARTELL DO DATE OF PRINTIN09/05/2020 ############################## ############################## ############ Final Diagnosis: A. Colon, "rectum", resection: Focal foreign body giant cell reaction. B. Colon, "descending colon", resection: Diverticulum. C. Colon, "transverse colon", resection: Diverticula and focal serositis. D. Mesh, removal: See gross description. Attestation: By this signature, I attest that I have personally formulated the final interpretation expressed in this report and that the above diagnosis is based upon my examination of the slides and/or other material indicated in this report. 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 Gross Description: A. Fixative: Formalin Labeled: "Rectum" Measurements: 5.0 x 3.5 x 1.7 cm Serosa: Liu-pink and covered in adhesions a staple line is present on one end of the specimen. Mucosa: The staple line is removed to reveal liu-pink mucosa with a lumen that appears decreased in size. Tissue submitted to [facility] Core Facility: No Hose Stripper sections are submitted in cassettes A1-A2 (visitor services representative sections of mucosa). (amf) B. Fixative: Formalin Labeled: "Descending colon" Measurements: 5.7 x 3.9 x 2.7 cm Serosa: The serosa appears to be entirely covered in mesenteric fat. There is a staple line at end of the specimen. Mucosa: Liu-pink with a diverticulum Tissue submitted to [facility] Core Facility: No Hose Stripper sections are submitted as follows: B1 Hose Stripper sections of diverticulum. B2 Hose Stripper sections of mucosa. (amf) C. Fixative: Formalin Labeled: "Transverse colon" Measurements: 12.5 cm in length by 5.0 cm in diameter Serosa: Liu-pink with multiple adhesions on the serosal surface. There are staple lines on one end of specimen. Mucosa: Liu-pink with multiple diverticula. Tissue submitted to [facility] Core Facility: No Hose Stripper sections are submitted as follows: C1 Hose Stripper sections of diverticula. C2 Hose Stripper sections of unremarkable mucosa. (amf) D. Received fresh labeled with the patient's name and "mesh" is an aggregate of two mesh fragments with adhered soft liu-pink tissue measuring 5.3 x 4.1 x 2.0 cm in aggregate. The specimen is submitted for gross only identification. ([facility]) af/09/04/2020 Specimen Tissue - Rectum Tissue - Colon Tissue - Colon Performing Organization Address City/State/ZIP Code P sid Number MAIN LAB [address] [place] [address] * EPIDURAL BLOCK (09/04/2020 10:24 AM CDT) Narrative Performed At Alex Bo MD 09/04/2020 10:25 AM Anesthesia Procedure: Epidural Block EPIDURAL BLOCK Date/Time: 09/04/2020 10:20 AM Patient location: pre-op Reason for block: post-op pain manageme nt and procedure for pain Preprocedure checklist performed: 2 pat ient identifiers, risks & benefits discussed, patient evaluated, timeout p erformed, consent obtained, patient being monitored, existing labs reviewed , no anticoagulant within risk period and sterile drape Sterile technique: - Proper hand washing - Cap, mask - Sterile gloves - Skin prep for antisepsis Epidural Procedure Patient position: sitting Prep: ChloraPrep Monitoring: BP, EKG and continuous puls e ox Approach: midline Location: thoracic Level/Interspace: T8-9 Injection technique: JOHN saline Procedures: landmark technique Number of attempts: 4 Needle/epidural catheter: Needle type: Tuohy Needle gauge: 17 G Needle length: 3.5 in Needle insertion depth: 6 cm Catheter type: wire reinforced and m ulti orifice Catheter size: 19 G Catheter at skin depth: 11 cm Procedure Outcome Events: negative test dose, no paresthe dwayne and negative aspiration test Patient tolerance of procedure: patient tolerated the procedure well with no immediate complications} Procedure Medications Sedation: fentaNYL PF (SUBLIMAZE) inj ection, 100 mcg Local Anesthesia: lidocaine PF 1% (10 m g/mL) injection, 5 mL Test Dose: lidocaine 1.5% /EPINEPHrine 1:200,000 epidural test dose (5 mL amp), 3 mL Refer to nursing documentation for harjinder ls and monitoring data during procedure. Performed by: Alex Bo MD Authorized by: Lilly Strickland MD * BLOOD TYPE CONFIRMATION - ORDER ONLY IF REQUESTED BY LAB (09/04/2020 10:00 AM CDT) ABO/RH(D) O POS [facility] MAIN [facility] Specimen Lung Performing Organization Address City/State/ZIP Code P sid Number MAIN LAB [address] [place] [address] * TYPE & CROSSMATCH (09/04/2020 9:19 AM CDT) Units Ordered 4 [facility] Crossmatch 09/07/2020,2359 [facility] Expires Record Check 2ND TYPE REQUIRED [facility] ABO/RH(D) O POS [facility] Antibody Screen NEG [facility] Electronic YES [facility] Crossmatch Unit Number [id number] [facility] Blood Component RBC,ADSOL,LEUKO REDUCED MAIN LAB Type Unit Division 00 [facility]IN [facility] Status OF Unit TRANSFUSED [facility]IN [facility] ISSUE DATE TIME [facility]IN [facility] PRODUCT CODE [id number] [facility] MAIN LAB BLOOD TYPE O POS MAIN LAB CODING STATUS 5100 MAIN LAB BLOOD [id number] MAIN LAB EXPIRATION DATE Transfusion OK TO TRANSFUSE [facility] Status Crossmatch COMPATIBLE,ELECTRONIC MAIN LAB Result Unit Number [id number] [facility]IN [facility] Blood Component RBC,ADSOL,LEUKO REDUCED [facility] Type Unit Division 00 [facility]IN [facility] Status OF Unit TRANSFUSED [facility]IN [facility] ISSUE DATE TIME [facility]IN [facility] PRODUCT CODE [id number] [facility] MAIN LAB BLOOD TYPE O POS [facility]IN [facility] CODING STATUS 5100 [facility] MAIN LAB BLOOD [id number] MAIN LAB EXPIRATION DATE Transfusion OK TO TRANSFUSE [facility] Status Crossmatch COMPATIBLE,ELECTRONIC [facility]IN [facility] Result Unit Number [id number] MAIN LAB Blood Component RBC,ADSOL,LEUKO REDUCED MAIN LAB Type Unit Division 00 [facility]IN [facility] Status OF Unit REL FROM ALLOC [facility]IN [facility] Transfusion OK TO TRANSFUSE [facility] Status Crossmatch COMPATIBLE,ELECTRONIC MAIN LAB Result Unit Number [id number] MAIN LAB Blood Component RBC,ADSOL,LEUKO REDUCED [facility]IN [facility] Type Unit Division 00 [facility] MAIN LAB Status OF Unit REL FROM ALLOC [facility]IN [facility] Transfusion OK TO TRANSFUSE [facility]IN [facility] Status Crossmatch COMPATIBLE,ELECTRONIC [facility]IN [facility] Result Unit Number [id number] [facility] MAIN [facility] Blood Component RBC,ADSOL,LEUKO REDUCED [facility] MAIN [facility] Type Unit Division 00 [facility] MAIN LAB Status OF Unit TRANSFUSED [facility] MAIN LAB ISSUE DATE TIME [id number] [facility] MAIN LAB PRODUCT CODE [id number] [facility] MAIN LAB BLOOD TYPE O POS [facility]IN [facility] CODING STATUS 5100 [facility] MAIN LAB BLOOD [id number] [facility] MAIN LAB EXPIRATION DATE Transfusion OK TO TRANSFUSE [facility]IN [facility] Status Crossmatch COMPATIBLE,ELECTRONIC MAIN LAB Result Unit Number [id number] [facility] MAIN LAB Blood Component RBC,ADSOL,LEUKO REDUCED,2ND [facility] MAIN L AB Type CONT. Unit Division 00 [facility] MAIN LAB Status OF Unit TRANSFUSED [facility] MAIN LAB ISSUE DATE TIME [id number] [facility] MAIN LAB BLOOD TYPE O POS [facility] MAIN LAB CODING STATUS 5100 [facility] MAIN LAB BLOOD [id number] [facility] MAIN LAB EXPIRATION DATE Transfusion OK TO TRANSFUSE [facility]IN [facility] Status Crossmatch COMPATIBLE,ELECTRONIC [facility] MAIN [facility] Result Specimen Midstream Performing Organization Address City/State/ZIP Code P sid Number MAIN LAB [address] [place] [address] * TELEMETRY STRIPS-SCAN (09/04/2020 12:00 AM CDT) Narrative Performed At This result has an attachment that is n ot available. Ordered by an unspecified provider. * TELEMETRY STRIPS-SCAN (09/04/2020 12:00 AM CDT) Narrative Performed At This result has an attachment that is n ot available. Ordered by an unspecified provider. * TELEMETRY STRIPS-SCAN (09/04/2020 12:00 AM CDT) Narrative Performed At This result has an attachment that is n ot available. Ordered by an unspecified provider. * TELEMETRY STRIPS-SCAN (09/04/2020 12:00 AM CDT) Narrative Performed At This result has an attachment that is n ot available. Ordered by an unspecified provider. * TELEMETRY STRIPS-SCAN (09/04/2020 12:00 AM CDT) Narrative Performed At This result has an attachment that is n ot available. Ordered by an unspecified provider. * TELEMETRY STRIPS-SCAN (09/04/2020 12:00 AM CDT) Narrative Performed At This result has an attachment that is n ot available. Ordered by an unspecified provider. * TELEMETRY STRIPS-SCAN (09/04/2020 12:00 AM CDT) Narrative Performed At This result has an attachment that is n ot available. Ordered by an unspecified provider. * TELEMETRY STRIPS-SCAN (09/04/2020 12:00 AM CDT) Narrative Performed At This result has an attachment that is n ot available. Ordered by an unspecified provider. * TELEMETRY STRIPS-SCAN (09/04/2020 12:00 AM CDT) Narrative Performed At This result has an attachment that is n ot available. Ordered by an unspecified provider. * TELEMETRY STRIPS-SCAN (09/04/2020 12:00 AM CDT) Narrative Performed At This result has an attachment that is n ot available. Ordered by an unspecified provider. * TELEMETRY STRIPS-SCAN (09/04/2020 12:00 AM CDT) Narrative Performed At This result has an attachment that is n ot available. Ordered by an unspecified provider. * TELEMETRY STRIPS-SCAN (09/04/2020 12:00 AM CDT) Narrative Performed At This result has an attachment that is n ot available. Ordered by an unspecified provider. * TELEMETRY STRIPS-SCAN (09/04/2020 12:00 AM CDT) Narrative Performed At This result has an attachment that is n ot available. Ordered by an unspecified provider. * TELEMETRY STRIPS-SCAN (09/04/2020 12:00 AM CDT) Narrative Performed At This result has an attachment that is n ot available. Ordered by an unspecified provider. * TELEMETRY STRIPS-SCAN (09/04/2020 12:00 AM CDT) Narrative Performed At This result has an attachment that is n ot available. Ordered by an unspecified provider. * TELEMETRY STRIPS-SCAN (09/04/2020 12:00 AM CDT) Narrative Performed At This result has an attachment that is n ot available. Ordered by an unspecified provider. * TELEMETRY STRIPS-SCAN (09/04/2020 12:00 AM CDT) Narrative Performed At This result has an attachment that is n ot available. Ordered by an unspecified provider. * TELEMETRY STRIPS-SCAN (09/04/2020 12:00 AM CDT) Narrative Performed At This result has an attachment that is n ot available. Ordered by an unspecified provider. * TELEMETRY STRIPS-SCAN (09/04/2020 12:00 AM CDT) Narrative Performed At This result has an attachment that is n ot available. Ordered by an unspecified provider. * TELEMETRY STRIPS-SCAN (09/04/2020 12:00 AM CDT) Narrative Performed At This result has an attachment that is n ot available. Ordered by an unspecified provider. * TELEMETRY STRIPS-SCAN (09/04/2020 12:00 AM CDT) Narrative Performed At This result has an attachment that is n ot available. Ordered by an unspecified provider. * TELEMETRY STRIPS-SCAN (09/04/2020 12:00 AM CDT) Narrative Performed At This result has an attachment that is n ot available. Ordered by an unspecified provider. * TELEMETRY STRIPS-SCAN (09/04/2020 12:00 AM CDT) Narrative Performed At This result has an attachment that is n ot available. Ordered by an unspecified provider. * TELEMETRY STRIPS-SCAN (09/04/2020 12:00 AM CDT) Narrative Performed At This result has an attachment that is n ot available. Ordered by an unspecified provider. * TELEMETRY STRIPS-SCAN (09/04/2020 12:00 AM CDT) Narrative Performed At This result has an attachment that is n ot available. Ordered by an unspecified provider. * TELEMETRY STRIPS-SCAN (09/04/2020 12:00 AM CDT) Narrative Performed At This result has an attachment that is n ot available. Ordered by an unspecified provider. * TELEMETRY STRIPS-SCAN (09/04/2020 12:00 AM CDT) Narrative Performed At This result has an attachment that is n ot available. Ordered by an unspecified provider. * TELEMETRY STRIPS-SCAN (09/04/2020 12:00 AM CDT) Narrative Performed At This result has an attachment that is n ot available. Ordered by an unspecified provider. * TELEMETRY STRIPS-SCAN (09/04/2020 12:00 AM CDT) Narrative Performed At This result has an attachment that is n ot available. Ordered by an unspecified provider. * TELEMETRY STRIPS-SCAN (09/04/2020 12:00 AM CDT) Narrative Performed At This result has an attachment that is n ot available. Ordered by an unspecified provider. * TELEMETRY STRIPS-SCAN (09/04/2020 12:00 AM CDT) Narrative Performed At This result has an attachment that is n ot available. Ordered by an unspecified provider. * TELEMETRY STRIPS-SCAN (09/04/2020 12:00 AM CDT) Narrative Performed At This result has an attachment that is n ot available. Ordered by an unspecified provider. * TELEMETRY STRIPS-SCAN (09/04/2020 12:00 AM CDT) Narrative Performed At This result has an attachment that is n ot available. Ordered by an unspecified provider. * TELEMETRY STRIPS-SCAN (09/04/2020 12:00 AM CDT) Narrative Performed At This result has an attachment that is n ot available. Ordered by an unspecified provider. * TELEMETRY STRIPS-SCAN (09/04/2020 12:00 AM CDT) Narrative Performed At This result has an attachment that is n ot available. Ordered by an unspecified provider. * TELEMETRY STRIPS-SCAN (09/04/2020 12:00 AM CDT) Narrative Performed At This result has an attachment that is n ot available. Ordered by an unspecified provider. * TELEMETRY STRIPS-SCAN (09/04/2020 12:00 AM CDT) Narrative Performed At This result has an attachment that is n ot available. Ordered by an unspecified provider. * TELEMETRY STRIPS-SCAN (09/04/2020 12:00 AM CDT) Narrative Performed At This result has an attachment that is n ot available. Ordered by an unspecified provider. * TELEMETRY STRIPS-SCAN (09/04/2020 12:00 AM CDT) Narrative Performed At This result has an attachment that is n ot available. Ordered by an unspecified provider. * TELEMETRY STRIPS-SCAN (09/04/2020 12:00 AM CDT) Narrative Performed At This result has an attachment that is n ot available. Ordered by an unspecified provider. * TELEMETRY STRIPS-SCAN (09/04/2020 12:00 AM CDT) Narrative Performed At This result has an attachment that is n ot available. Ordered by an unspecified provider. * TELEMETRY STRIPS-SCAN (09/04/2020 12:00 AM CDT) Narrative Performed At This result has an attachment that is n ot available. Ordered by an unspecified provider. * TELEMETRY STRIPS-SCAN (09/04/2020 12:00 AM CDT) Narrative Performed At This result has an attachment that is n ot available. Ordered by an unspecified provider. * ECG-SCAN (09/04/2020 12:00 AM CDT) Narrative Performed At This result has an attachment that is n ot available. Ordered by an unspecified provider. * ECG-SCAN (09/04/2020 12:00 AM CDT) Narrative Performed At This result has an attachment that is n ot available. Ordered by an unspecified provider. * ECG-SCAN (09/04/2020 12:00 AM CDT) Narrative Performed At This result has an attachment that is n ot available. Ordered by an unspecified provider. * ECG-SCAN (09/04/2020 12:00 AM CDT) Narrative Performed At This result has an attachment that is n ot available. Ordered by an unspecified provider. from Last 3 Months Additional Health Concerns Last Indicated Resolved Time Infection Onset Date 09/27/2020 Pseudomonas - MDRO 09/27/2020 Insurance Type Payer Benefit Subscriber ID Effective Phone Address Plan / Dates Group Medicare AETNA MEDICARE AETNA [id number] 2019-P MEDICARE resent PPO [facility] [id number] 10/17/2020- P DC resent HEALTH/SNF /GROUP HOME [phone] Advance Directives Patient Hose Stripper Explanation Type Date Recorded Advance 12/30/2019 12:00 AM Directive/DPOA Date Inactivated Comments Code Status Date Activated 10/16/2020 7:39 PM Full Code 10/10/2020 12:01 AM Provider has discussed Code Status No, discussion no t w/Patient or Family? necessary based on Dx 10/03/2020 3:01 PM Full Code 09/26/2020 6:23 PM Provider has discussed Code Status No, discussion no t w/Patient or Family? necessary based on Dx 09/21/2020 5:50 PM Full Code 09/04/2020 7:41 PM Provider has discussed Code Status Yes w/Patient or Family? 07/19/2020 8:52 PM Full Code 06/28/2020 10:00 PM Provider has discussed Code Status No, more discussi on w/Patient or Family? needed
--- OUTSIDE RECORDS SUMMARY | 2020-11-03 21:46 | XMS REPORT | Encounter Summary ---
Author Author [facility] Organization [facility] Address Unknown Phone Unavailable Care Team Providers Care Table Tender Name Role Phone Geraldo Mcknight MD PCP Dale Leal DO 21 Unavailable Reason for Visit * Reason Comments Follow Up Encounter Details Care Team Description Date Type Department Simone Martell DO [facility] [place] [address] [phone] Colovesical fistula (Primary Dx) 10/27/2020 Office Visit Oncology: [address] [place], [place] [phone] Social History Date Tobacco Use Types Packs/Day [...] impairment: No documented as of this encounter Progress Notes * Simone Martell, DO - 10/27/2020 9:15 AM CDT Name: Beverly Torres : 1950 AGE: [age] y.o. DATE OF SERVICE: 10/27/2020 Subjective: Reason for Visit: Follow Up Beverly Torres is a 70 y.o. female. Cancer Staging No matching staging information was found for the patient. History of Present Illness 70 y.o. female with recent surgery for large colovesicular fistula. She is comp laining of bladder spasms. She is having these with the bartlett in place. She rec ently had the stents removed as it was displaced. This is better but still with some issues. Eating well. Has not weighed and not sure about weight. Ostomy functioning wel l. Midline wound no redness minimal green drainage. Two holes, bottom trying t o close.BID dressing changes. Only for comfort not for saturation. No vomiting occ nausea. May be abx related. zyvox and vanco. Tele with ID. CT Friday done in [place], need results. Cont abx until then. Energy is poor due to bartlett replaced this causes her issues with mobility or mov ement with pain. Medical History: Diagnosis Date Colovesical fistula Diverticulitis Hypertension Hypoglycemia Hypothyroid PONV (postoperative nausea and vomiting) Rectovaginal fistula Right ureteral injury Sepsis (HCC) 2019,2020 Surgical History: Procedure Laterality Date HX SURGERY 12/20/2011 Laparoscopy converted to laparotomy, sigmoid colon resection with low anterior anastomosis, small bowel resection, resection and repair of vaginal cuff. Pathol ogy: 1. Sigmoid colon with rings and small bowel. Segmental resection. Diverticu losis, serosal adhesions with luminal obstruction and associated peritonitis. 2. Vaginal cuff: Enteric fistula tract HX SURGERY 12/20/2011 Primary repair of right ureteral injury with ureteroureterostomy and cystoscopy with left ureteral stent placement CYSTOSCOPY 03/26/2012 Urethral dilation HX SURGERY 05/08/2012 Laparotomy with lysis of adhesions, repair of small bowel, rigid sigmoidoscope HX SURGERY 05/08/2012 Right ureteral reimplantation HX SURGERY 07/09/2012 Cystoscopy, right ureteral stent removal, right retrograde pyelogram, and fulgu ration of right distal ureteral stump and ureteral orifice HX SURGERY 07/30/2013 Complex ventral hernia repair with fascial separation component with mesh and p anniculectomy HX SURGERY 09/07/2013 Opening of previous Pfannenstiel incision with drainage of intra-abdominal absc ess HX SURGERY 10/06/2013 Laparoscopic diverting colostomy transverse colon and excision 8 x 5 skin and s ubcutaneous tissue and fascia HX SURGERY 08/19/2014 Laparoscopic takedown of colostomy HX SURGERY 08/24/2014 Laparoscopy with redo colocolonic anastomosis EXPLORATORY LAPAROTOMY WITHOUT BIOPSY WITH PARTIAL CYSTECTOMY N/A 09/04/2020 Performed by Alexander Rodriguez MD at [facility] OR COLECTOMY WITH COLOPROCTOSTOMY AND COLOSTOMY - PARTIAL N/A 09/04/2020 Performed by Alexander Rodriguez MD at [facility] OR COLECTOMY WITH COLOPROCTOSTOMY AND COLOSTOMY - PARTIAL N/A 09/04/2020 Performed by Simone Martell DO at [facility] OR ABDOMEN SURGERY SECTION x 2 HX ROSARIO AND BSO Family History Problem Relation Age of Onset Cervical Cancer Sister Brain Cancer Sister Social History Socioeconomic History Marital status: Spouse name: Not on file Number of children: Not on file Years of education: Not on file Highest education level: Not on file Occupational History Not on file Tobacco Use Smoking status: Former Smoker Packs/day: 1.00 Years: 55.00 Pack years: 55.00 Types: Cigarettes Quit date: 05/15/2020 Years since quittin.4 Smokeless tobacco: Never Used Vaping Use Vaping Use: Never used Substance and Sexual Activity Alcohol use: Not Currently Drug use: Never Sexual activity: Not on file Other Topics Concern Not on file Social History Narrative Not on file Vaping/E-liquid Use Vaping Use Never User Review of Systems Constitutional: Negative for activity change, chills, fatigue and fever. HENT: Negative for congestion. Eyes: Negative. Respiratory: Negative for cough, choking, chest tightness and shortness of breat h. Cardiovascular: Negative for chest pain and leg swelling. Gastrointestinal: Negative for abdominal distention, abdominal pain, anal bleedi ng, blood in stool, constipation, diarrhea, nausea, rectal pain and vomiting. Endocrine: Negative for polydipsia and polyphagia. Genitourinary: Negative for difficulty urinating, dysuria and frequency. Musculoskeletal: Negative for arthralgias and myalgias. Skin: Negative for pallor and rash. Neurological: Negative for dizziness and light-headedness. Hematological: Negative for adenopathy. Does not bruise/bleed easily. Psychiatric/Behavioral: Negative for agitation, behavioral problems and confusio n. Objective: acetaminophen (TYLENOL) 325 mg capsule Take one capsule by mouth every 6 elisabeth rs as needed. Max of 4,000 mg of acetaminophen in 24 hours. aluminum/magnesium hydroxide (MAALOX) 200/200 mg/5 mL susp oral suspension T sandrine 30 mL by mouth four times daily as needed. buPROPion XL (WELLBUTRIN XL) 150 mg tablet Take one tablet by mouth daily. D o not crush or chew. clonazePAM (KLONOPIN) 0.125 mg rapid dissolve tablet Dissolve one tablet by mouth three times daily. gabapentin (NEURONTIN) 300 mg capsule Take one capsule by mouth twice daily. HYDROcodone/acetaminophen (NORCO) 5/325 mg tablet Take one tablet by mouth e very 6 hours as needed hyoscyamine (ANASPAZ) 0.125 mg rapid dissolve tablet Place one tablet under tongue every 4 hours as needed. levocetirizine (XYZAL) 5 mg tab Take one tablet by mouth daily as needed. levothyroxine (SYNTHROID) 50 mcg tablet Take one tablet by mouth daily. linezolid (ZYVOX) 600 mg tablet Take one tablet by mouth twice daily. Tentat ively through 10/12 or until discontinued by infectious diseases physician. meropenem (MERREM) 1 g/20 mL injection Administer 2 grams over 3 hours intra venously every 8 hours. Tentatively through 10/12 or until discontinued by infect ious diseases physician. methocarbamoL (ROBAXIN) 750 mg tablet Take one tablet by mouth twice daily a s needed for Spasms. micafungin (MYCAMINE) 100 mg/5 mL 100 mg, micafungin (MYCAMINE) 50 mg/5 mL 5 0 mg in sodium chloride 0.9% (NS) 110 mL IVPB Administer 150 mg through vein stevan ry 24 hours. Indications: intra-abdominal infection Miscellaneous Medical Supply [facility] Colostomy supplies and accessories Dispense twenty of each for one month of supplies Dx Colovesical fistula N32.1 Miscellaneous Medical Supply [facility] ICD-10:Ileostomy in place (HCC) Z93.2 Ileostomy supplies and accessories Dispense one month of supplies naphazoline 0.025 % /pheniramine 0.3 % (NAPHCON-A) 0.025/0.3 % drop Apply on e drop to both eyes four times daily. ondansetron (ZOFRAN ODT) 4 mg rapid dissolve tablet Dissolve one tablet by m outh every [address] on tongue to dissolve. oxybutynin XL (DITROPAN XL) 10 mg tablet Take one tablet by mouth daily. pantoprazole DR (PROTONIX) 40 mg tablet Take one tablet by mouth twice daily . polyethylene glycol 3350 (MIRALAX) 17 g packet Take one packet by mouth twic e daily as needed. senna/docusate (SENOKOT-S) 8.6/50 mg tablet Take one tablet by mouth twice d aily. simethicone (MYLICON) 80 mg chew tablet Chew one tablet by mouth every 6 el[address] rs as needed for Flatulence. vancomycin (FIRVANQ) 25 mg/mL oral solution Take 5 mL by mouth twice daily. Discard after 14 days. Vitals: 10/27/20 0857 PainSc: Zero There is no height or weight on file to calculate BMI. Pain Score: Zero Fatigue Scale: 2 Pain Addressed: N/A Patient Evaluated for a Clinical Trial: No treatment clinical trial available fo r this patient. Eastern Cooperative Oncology Group performance status is 0, Fully active, able t o carry on all pre-disease performance without restriction.. Physical Exam Nursing note reviewed. Constitutional: Appearance: She is well-developed. HENT: Head: Normocephalic and atraumatic. Nose: Nose normal. Eyes: General: No scleral icterus. Right eye: No discharge. Left eye: No discharge. Conjunctiva/sclera: Conjunctivae normal. Neck: Trachea: No tracheal deviation. Pulmonary: Effort: Pulmonary effort is normal. Abdominal: General: There is no distension. Musculoskeletal: General: Normal range of motion. Cervical back: Normal range of motion. Lymphadenopathy: Cervical: No cervical adenopathy. Right cervical: No superficial cervical adenopathy. Left cervical: No superficial cervical adenopathy. Skin: General: Skin is warm and dry. Coloration: Skin is not pale. Findings: No erythema or rash. Neurological: Mental Status: She is alert and oriented to person, place, and time. Psychiatric: Behavior: Behavior normal. Thought Content: Thought content normal. Assessment and Plan: 70 y.o. female with enterocutaneous fistula. Seems to be healing without interv ention at this time. Only time will tell ultimately. I would continue diet. Will follow. documented in this encounter Plan of Treatment Not on [...] as of this encounter Visit Diagnoses Diagnosis Colovesical fistula - Primary Intestinovesical fistula documented in this encounter Additional Health Concerns Last Indicated Resolved Time Infection Onset Date 09/27/2020 Pseudomonas - MDRO 09/27/2020 Assessment Noted Time A fall risk assessment has been completed for the pat ient 10/27/2020 8:58 AM CDT documented as of this encounter
--- OUTSIDE RECORDS SUMMARY | 2020-11-03 21:46 | XMS REPORT | Encounter Summary ---
Author Author [facility] Organization [facility] Address Unknown Phone Unavailable Care Team Providers Care Train Control Electronic Technician Name Role Phone Geraldo Mcknight MD PCP Dale Leal DO 21 Unavailable Reason for Visit * Reason Onset Date Comments Urinary Catheter Problem 10/25/2020 Encounter Details Care Team Description [place] [address] [place] [address] [phone] Urinary Catheter Problem 10/25/2020 Telephone Urology: [facility] [address] [place] [address] [address] 2, [address] [place] [address] Social History Date Tobacco Use [...] have a visual impairment: Yes - Anita dergokul 07/31/2020 Does the patient have impaired ambulation: [...]
--- OUTSIDE RECORDS SUMMARY | 2020-11-03 21:46 | XMS REPORT | Encounter Summary ---
Author Author [facility] Organization [facility] Address Unknown Phone Unavailable Care Team Providers Care Worsted Winder Name Role Phone Geraldo Mcknight MD PCP Dale Leal DO 21 Unavailable Reason for Visit * Reason Onset Date Comments Outpatient Antibiotic 10/30/2020 Therapy (Opat) Encounter Details Care Team Description Date Type Department India Hassan MD [address] [facility] Ortho/Med [place] [address] [place] [address] Outpatient Antibiotic Therapy (Opat) 10/30/2020 Telephone Infectious Diseases : Main [place] [address], [address] [address] Social History Date Tobacco Use [...] Telephone Encounter - Evelyn Collado RN - 10/30/2020 11:[address] for abd/pelvis scheduled for 10/30 was denied, supporting documents faxed to [phone]. , requested expedited appeal, should have resul ts in ~72 hrs. documented in this encounter Plan of Treatment [...]
--- OUTSIDE RECORDS SUMMARY | 2020-11-03 21:46 | XMS REPORT | Encounter Summary ---
Author Author [facility] Organization [facility] Address Unknown Phone Unavailable Care Team Providers Care Catholic Priest Name Role Phone Geraldo Mcknight MD PCP Dale Leal DO 21 Unavailable Encounter Details Care Team Description Date Type Department India Hassan MD [address] Ortho/Med Pavilion [address] [place] [address] 10/26/2020 Outpt. Infectious Diseases : Main Antibiotic [place] Therapy [address], [address] [address] Social History Date Tobacco Use [...] patient have a visual impairment: Yes - [place] ders 07/31/2020 Does the patient have impaired [...] Associated Diag nosis CBC AND DIFF Routine 10/26/2020 Colovesical fis harlan Abscess COMPREHENSIVE METABOLIC Routine 10/26/2020 Colove sical fistula PANEL Abscess documented in this encounter Results * CBC AND DIFF (10/26/2020) White Blood [...] P sid Number [facility] [id number] [place] [address] * COMPREHENSIVE METABOLIC PANEL (10/26/2020) Sodium [facility] [...] [facility] eGFR [facility] [place] [facility] Specimen Blood - Blood Performing Organization Address [facility] P sid Number [facility] [id number] [place] [address] documented in this encounter Visit Diagnoses Diagnosis Colovesical fistula Intestinovesical fistula Abscess Cellulitis and abscess of unspecified s ite documented in this encounter Additional Health Concerns Last Indicated Resolved Time Infection Onset Date 09/27/2020 Pseudomonas - MDRO 09/27/2020 Assessment Noted Time A fall risk assessment has been completed for the pat ient 10/16/2020 8:00 AM CDT documented as of this encounter
--- OUTSIDE RECORDS SUMMARY | 2020-11-03 21:46 | XMS REPORT | Encounter Summary ---
Author Author [facility] Organization [facility] Address Unknown Phone Unavailable Care Team Providers Care Consumer Science Teacher Name Role Phone Gerlado Mcknight MD PCP Dale Leal DO 21 Unavailable Encounter Details Care Team Description Date Type Department Rebeca Rogers, DONOVAN 11/03/2020 Documentation [facility] [address] [place] [address] Social History Date Tobacco Use Types Packs/Day [...] patient have a visual impairment: Yes - Anitaruperto ann 07/31/2020 Does the patient have impaired ambulation: Yes 07/31/2020 Does the patient have an activity of daily living No (ADL) impairment: 07/31/2020 Does the patient have an instrumental activity of No daily living (IADL) impairment: Date of Assessment Cognitive Status Response 07/31/2020 Does the patient have a cognitive impairment: No documented as of this encounter Progress Notes * Rebeca Rogers PHARMD - 11/03/2020 3:46 PM CDT Medication as below & supplies delivered to patients home on 11/06/20 Start of Care:11/03/20 Home doses to begin: 11/07/20 Teach: to be done by pts Goins Summary of Care Document - prepared by Rebeca Rogers PHarm D. This is not a v alid order. Drug: Meropenem 2 gm Frequency: Q 8 hours Adm Method: Elastomeric Adm Directions: Administer Meropenem 2 gm (200 ml) IV every 8 hours. Dose will infuse over approximately 70 minutes via SMARTeZ device. Drug: Mycamine 150 mg Frequency: Q 24 hours Adm Method: Elastomeric Adm Directions: Administer Mycamine 150 mg (200 ml) IV every 24 hours. Dose dustin l infuse over approximately 60 minutes via Eclipse device. Duration of therapy: TBD Access: DL PICC Flush: NS 5-10ml before and after each dose; Heparin 10 units/ml 5 ml as final f lush/lock Lab orders: Fax results to: Dr. India Hassan & [facility]; : [facility] ph: fax: Following MD: Dr. India Hassan phone [phone] Home Infusion Pharmacist: Rebeca Rogers PHarm D; ext 3 documented in this encounter Plan of Treatment [...]
--- OUTSIDE RECORDS SUMMARY | 2020-11-03 21:46 | XMS REPORT | Encounter Summary ---
Author Author [facility] Organization [facility] Address Unknown Phone Unavailable Care Team Providers Care Slurry Tank Tender Name Role Phone Geraldo Mcknight MD PCP Dale Leal DO 21 Unavailable Reason for Visit * Reason Onset Date Comments Urinary Catheter Problem 10/26/2020 Pt requesting call back to discuss bartlett catheter Encounter Details Care Team Description [place] [address] [place] [address] Urinary Catheter Problem (Pt requesting call back to discuss bartlett catheter) 10/26/2020 Telephone Oncology: Richelle de, [facility] [address] [place] [address] Social History Date Tobacco Use Types Packs/Day [...] encounter Miscellaneous Notes * Telephone Encounter - Vern Myers RN - 10/26/2020 9:34 AM CDT This RN received a message to speak with patient regarding fully catheter issues . Upon speaking with patient, patient informed RN that she was previously hangin g her overnight drainage bag on her walker, and that she was having issues with the catheter leaking. Starting last night, she lowered the overnight bag closer to the floor and reports she had no leakage issues last night. She reports that she had more output in the overnight bag this morning compared with when bag was hung on walker. RN advised to continue with placing the overnight bag closer to the floor to allow dependent drainage. Pt verbalized understanding and had no f urther questions or concerns at this time. Pt was grateful for the call back. documented in this encounter Plan of Treatment [...]
--- OUTSIDE RECORDS SUMMARY | 2020-11-03 21:46 | XMS REPORT | Encounter Summary ---
Author Author [facility] Organization [facility] Address Unknown Phone Unavailable Care Team Providers Care Curtain Hemmer Automatic Name Role Phone Geraldo Mcknight MD PCP Dale Leal DO 21 Unavailable Encounter Details Care Team Description Date Type Department India Hassan MD [address] Ortho/Med Pavilion [address] [place] [address] 10/20/2020 Outpt. Infectious Diseases : Main Antibiotic [place] Therapy [address], [address] [address] Social History Date Tobacco Use [...] patient have a visual impairment: Yes - [place] ders 07/31/2020 Does the patient have impaired [...] Associated Diag nosis CBC AND DIFF Routine 10/19/2020 Colovesical fis harlan 1:45 PM CDT Abscess COMPREHENSIVE METABOLIC Routine 10/19/2020 Colove sical fistula PANEL 1:45 PM CDT Abscess documented in this encounter Results * COMPREHENSIVE METABOLIC PANEL (10/19/2020 1:45 PM [...] OUTSIDE LAB eGFR Non OTHER OUTSIDE LAB Russian eGFR OTHER OUTSIDE Russian LAB [place] OTHER OUTSIDE LAB Specimen [...]
--- OUTSIDE RECORDS SUMMARY | 2020-11-03 21:46 | XMS REPORT | Encounter Summary ---
Author Author [facility] Organization [facility] Address Unknown Phone Unavailable Care Team Providers Care Mink Farmer Name Role Phone Geraldo Mcknight MD PCP Dale Leal DO 21 Unavailable Encounter Details Care Team Description Date Type Department 10/20/2020 Travel Social History Date Tobacco Use Types Packs/Day [...]
--- OUTSIDE RECORDS SUMMARY | 2020-11-03 21:46 | XMS REPORT | Encounter Summary ---
Author Author [facility] Organization [facility] Address Unknown Phone Unavailable Care Team Providers Care Day Habilitation Supervisor Name Role Phone Geraldo Mcknight MD PCP Dale Leal DO 21 Unavailable Encounter Details Care Team Description Date Type Department India Hassan MD [address] Ortho/Med Pavilion [address] [place] [address] 11/02/2020 Outpt. Infectious Diseases : Main Antibiotic [place] Therapy [address], [address] [address] Social History Date Tobacco Use [...] patient have a visual impairment: Yes - [place] ders 07/31/2020 Does the patient have impaired [...] Procedure Name Priority Date/Time Associated Diag nosis CT ABD/PELV W CONTRAST Routine 11/01/2020 Abscess documented in this encounter Results * CT ABD/PELV W CONTRAST (11/01/2020) Specimen Narrative Performed At This result has an attachment that is n ot available. Performing Organization Address City/State/ZIP Code P sid Number [facility] documented in this encounter Visit Diagnoses Diagnosis Abscess Cellulitis and abscess of unspecified s ite documented in this encounter Additional Health Concerns Last Indicated Resolved Time Infection Onset Date 09/27/2020 Pseudomonas - MDRO 09/27/2020 Assessment Noted Time A fall risk assessment has been completed for the pat ient 10/27/2020 8:58 AM CDT documented as of this encounter
--- OUTSIDE RECORDS SUMMARY | 2020-11-03 21:46 | XMS REPORT | Encounter Summary ---
Author Author [facility] Organization [facility] Address Unknown Phone Unavailable Care Team Providers Care Tax Examining Technician Name Role Phone Geraldo Mcknight MD PCP Dale Leal DO 21 Unavailable Reason for Visit * Reason Onset Date Comments Urinary Catheter Problem 11/03/2020 Encounter Details Care Team Description [place] [address] [place] [address] [phone] Urinary Catheter Problem 11/03/2020 Telephone Urology: [facility] [address] [place] [address] [address] 2, [address] [place] [address] Social History Date Tobacco Use [...] encounter Miscellaneous Notes * Telephone Encounter - Luanne Woody - 11/03/2020 3:08 PM CDT Returned call to pt's daughter regarding bartlett catheter. She stated Sher[facility] rep orted this morning that her bartlett catheter balloon popped. She was intended to h ave monthly catheter changes with HH, but stated they did not believe her HH kellie se was comfortable enough to place the catheter due to her fistula. Per Dr. Rodriguez 's note, catheter is to remain in place due to a bladder leak on cystogram. Advi sed they should report to a local ER for catheter replacement. They will do so. documented in this encounter Plan of Treatment [...]
--- OUTSIDE RECORDS SUMMARY | 2020-11-03 21:46 | XMS REPORT | Encounter Summary ---
Author Author [facility] Organization [facility] Address Unknown Phone Unavailable Care Team Providers Care Carnallite Plant Operator Name Role Phone Geraldo Mcknight MD PCP Dale Leal DO 21 Unavailable Reason for Visit * Reason Onset Date Comments Medication Question 10/19/2020 Encounter Details Care Team Description Date [place] [address] [place] [address] [phone] Medication Question 10/19/2020 Telephone Urology: [facility] [address] [place] [address] [address] 2, [address] [place] [address] Social History Date Tobacco Use [...] have you been in contact with [facility] to assess someone who was confirmed or suspected to have Coronavirus / COVID-19? documented as of this encounter Functional Status Date of Assessment Functional Status Response 10/10/2020 Does the patient have a hearing impairment: No 07/31/2020 Does the patient have a visual impairment: Yes - [place] ders 07/31/2020 Does the patient have impaired [...] * Telephone Encounter - Luanne Woody - 10/19/2020 9:37 AM CDT Returned call to pt's daughter regarding her appointment tomorrow with Dr. Rodriguez. She was wondering if she can continue daily medications as normal or if she wou ld need to hold medications. LVM advising she could take medications as normal w ith call back number for further questions. documented in this encounter Plan of Treatment [...]
--- OUTSIDE RECORDS SUMMARY | 2020-11-03 21:46 | XMS REPORT | Encounter Summary ---
Author Author [facility] Organization [facility] Address Unknown Phone Unavailable Care Team Providers Care Knitting Machine Tender Name Role Phone Geraldo Mcknight MD PCP Dale Leal DO 21 Unavailable Encounter Details Care Team Description Date Type Department Sridevi Costello MD [address] [place] [address] 11/03/2020 Hosp Imaging: [facility], Documentation [facility] Only [address] [facility] [address] 2 [place] [address] Social History Date Tobacco Use [...]
--- OUTSIDE RECORDS SUMMARY | 2020-11-03 21:46 | XMS REPORT | Encounter Summary ---
Author Author [facility] Organization [facility] Address Unknown Phone Unavailable Care Team Providers Care Recruiting And Selection Consultant Name Role Phone Geraldo Mcknight MD PCP Dale Leal DO 21 Unavailable Encounter Details Care Team Description [place] [address] [place] [address] [phone] 11/03/2020 Orders Only Urology: [facility] [address] [facility]. [address] 2, [address] [place] [address] Social History Date Tobacco Use [...] impairment: No documented as of this encounter Ordered Prescriptions Start Date End Date Prescription Sig Dispensed Refills 11/03/2020 HYDROcodone/acetaminophen Take one 30 tablet 0 (NORCO) 5/325 mg tablet tablet by mouth every 6 hours as needed documented in this encounter Plan of Treatment [...] Diagnoses Not on filedocumented in this encounter Discontinued Medications Start Date End Date Medication Sig Discontinue Reason 10/20/2020 11/03/2020 HYDROcodone/acetaminophen Take one Reorder (NORCO) 5/325 mg tablet tablet by mouth every 6 hours as needed documented as of this encounter Additional Health Concerns Last Indicated Resolved Time Infection Onset Date 09/27/2020 Pseudomonas - MDRO 09/27/2020 Assessment Noted Time A fall risk assessment has been completed for the pat ient 10/27/2020 8:58 AM CDT documented as of this encounter
--- OUTSIDE RECORDS SUMMARY | 2020-11-03 21:46 | XMS REPORT | Encounter Summary ---
Author Author [facility] Organization [facility] Address Unknown Phone Unavailable Care Team Providers Care Associate Data Scientist Name Role Phone Geraldo Mcknight MD PCP Dale Leal DO 21 Unavailable Reason for Visit * Reason Onset Date Comments Outpatient Antibiotic 10/31/2020 Therapy (Opat) Encounter Details Care Team Description Date Type Department India Hassan MD [address] [facility] Pavilion [address] [place] [address] Outpatient Antibiotic Therapy (Opat) 10/31/2020 Telephone [facility] : [facility] [address], [address] [address] Social History Date Tobacco Use [...] Date End Date Prescription Sig Dispensed Refills 10/31/2020 linezolid (ZYVOX) 600 mg Take one 14 tablet 1 tabletIndications: tablet by Abscess mouth twice daily. Tentatively through 10/12 or until discontinued by infectious diseases physician. 10/31/2020 vancomycin (FIRVANQ) 25 Take 5 mL by 150 mL 0 mg/mL oral mouth twice solutionIndications: daily. Abscess Discard after 14 days. documented in this encounter Miscellaneous Notes * Telephone Encounter - Evelyn Collado RN - 10/31/2020 9:10 AM CDT Received call from pt's daughter that they are out of Zyvox and PO Vanc. Refills sent to pt's local [facility]. Call from [facility] that pt's CT scan has been approved Auth # [id number]. Called [employer], they can CT pt today if she is able to come for test. Pt's daughter notified, will call either myself or [employer] with time they can co me. documented in this encounter Plan of Treatment [...] as of this encounter Visit Diagnoses Diagnosis Abscess - Primary Cellulitis and abscess of unspecified s ite documented in this encounter Discontinued Medications Start Date End Date Medication Sig Discontinue Reason 10/16/2020 10/31/2020 vancomycin (FIRVANQ) 25 Take 5 mL by Reorder mg/mL oral solution mouth twice daily. Discard after 14 days. 10/16/2020 10/31/2020 linezolid (ZYVOX) 600 mg Take one Reorder tablet tablet by mouth twice daily. Tentatively through 10/12 or until discontinued by infectious diseases physician. documented as of this encounter Additional Health Concerns Last Indicated Resolved Time Infection Onset Date 09/27/2020 Pseudomonas - MDRO 09/27/2020 Assessment Noted Time A fall risk assessment has been completed for the pat ient 10/27/2020 8:58 AM CDT documented as of this encounter
--- OUTSIDE RECORDS SUMMARY | 2020-11-03 21:46 | XMS REPORT | Encounter Summary ---
Author Author [facility] Organization [facility] Address Unknown Phone Unavailable Care Team Providers Care Ceramics Engineer Name Role Phone Geraldo Mcknight MD PCP Dale Leal DO 21 Unavailable Reason for Visit * Reason Comments Fistula * Outpatient Surgery (Routine) Referred By Contact Referred To Contact Status Reason Specialty Diagnoses / Procedures [place] [address] [place] [address] Authorized Urology Diagnoses Vesicointestinal fistula Cysto/Stent Pull - Michael P rocedures MT CYSTO W/INSERT URETERAL STENT PROCEDURE - 30 Encounter Details Care Team Description [place] [address] [place] [address] Colovesical fistula (Primary Dx) 10/20/2020 Procedure visit Urology: [facility] [address] [facility]. [address] 2, [address] [place] [address] Social History Date Tobacco Use [...] / COVID-19? documented as of this encounter Last Filed Vital Signs Reading Time Taken Comments Vital Sign 141/79 10/20/2020 11:14 AM CDT Blood Pressure 76 10/20/2020 11:14 AM CDT Pulse 36.7 C (98.1 F) 10/20/2020 11:14 AM CDT Temperature 18 10/20/2020 11:14 AM CDT Respiratory Rate - - Oxygen Saturation - - Inhaled Oxygen Concentration 70.3 kg (155 lb) 10/20/2020 11:14 AM CDT Weight 149.9 cm (4' 11") 10/20/2020 11:14 AM CDT Height 31.31 10/20/2020 11:14 AM CDT Body Mass Index documented in this encounter Functional Status Date of Assessment [...] Date End Date Prescription Sig Dispensed Refills 10/20/2020 clonazePAM (KLONOPIN) Dissolve one 30 tablet 2 0.125 mg rapid dissolve tablet by tablet mouth three times daily. 10/20/2020 hyoscyamine (ANASPAZ) Place one 45 tablet 3 0.125 mg rapid dissolve tablet under tablet tongue every 4 hours as needed. 10/20/2020 oxybutynin XL (DITROPAN Take one 90 tablet 3 XL) 10 mg tablet tablet by mouth daily. 10/20/2020 11/03/2020 HYDROcodone/acetaminophen Take one 30 tablet 0 (NORCO) 5/325 mg tablet tablet by mouth every 6 hours as needed documented in this encounter Procedure Notes * Alexander Rodriguez MD - 10/20/2020 11:00 AM CDT Associated Order(s): CYSTO W/STENT REMOVAL Procedure(s): MT CYSTO W/SIMPLE REMOVAL STONE & STENT Pre-Procedure Diagnose(s): Colovesical fistula Surgeon: Alexander Rodriguez MD Preoperative Diagnosis: Status post colovesical fistula takedown with left uret eral stent placement at the time of surgery Postoperative Diagnosis: Same Procedure: Flexible cystourethroscopy and stent removal. Anesthesia: Intraurethral 2% Lidocaine Gel Complications: none Indications for Procedure: He signed informed consent prior to procedure. 70 y .o. female with colovesical fistula status post takedown. She had a left ureter al stent placed at the time of the procedure. She presents today for removal. Description of Operative Procedure: He was placed in the dorsolithotomy positio n and prepped in the usual fashion. Flexible cystoscopy was performed and the s tent grasped and removed intact. The patient tolerated the procedure well witho ut any complications. Stent was inspected and entirely removed intact. 16 Fren ch Salomon catheter was placed at the completion of the procedure and confirmed pl acement with irrigation as well as direct palpation with pelvic exam. Follow-up: Patient will require Salomon catheter due to continued bladder leak on recent cystogram. Salomon catheter needs to be exchanged in 1 month. She current ly has home health and reports that home health can exchange the catheter. This should be exchanged to a 16 [place] catheter. I will have the patient return to clinic for telehealth visit in 6 weeks. We will plan on a cystogram at some po int in the future to evaluate for continued leak. documented in this encounter Plan of Treatment Order Schedule Name Type Priority Associated Diag noses Ordered: 10/20/2020 CYSTOSCOPY Procedures Routine Colovesical fis harlan documented as of this encounter Goals Goal [...] Procedure Name Priority Date/Time Associated Diag nosis MT CYSTO W/SIMPLE REMOVAL Routine 10/20/2020 [place] vesical fistula STONE & STENT 11:00 AM CDT documented in this encounter Results * CYSTO W/STENT REMOVAL (10/20/2020 11:00 AM CDT) Narrative Performed At Alexander Rodriguez MD 10/20/2020 6:14 PM IN CLINI C Surgeon: Alexander Rodriguez MD Preoperative Diagnosis: Status post c olovesical [...] inspecte d and entirely removed intact. 16 [place] Salomon catheter was placed at the completion of the procedure and confirmed placement w ith irrigation as well as direct palpation with pelvic exam. Follow-up: Patient will require Salomon c atheter due to continued bladder leak on recent cystogram. Fol ey catheter needs to be exchanged in 1 month. She currently h as home health and reports that home health can exchange the luis ter. This should be exchanged to a 16 [place] catheter. I will have the patient return to clinic for telehealth visit i n 6 weeks. We will plan on a cystogram at some point in the fut ure to evaluate for continued leak. Performing Organization Address City/State/ZIP Code P sid Number IN CLINIC documented in this encounter Visit Diagnoses Diagnosis Colovesical fistula - Primary Intestinovesical fistula documented in this encounter Discontinued Medications Start Date End Date Medication Sig Discontinue Reason 10/03/2020 10/20/2020 hyoscyamine (ANASPAZ) Place one Reorder 0.125 mg rapid dissolve tablet under tablet tongue every 4 hours as needed. 10/03/2020 10/20/2020 oxybutynin XL (DITROPAN Take one Reorder XL) 10 mg tablet tablet by mouth daily. 10/16/2020 10/20/2020 HYDROcodone/acetaminophen Take one Reorder (NORCO) 5/325 mg [...]
--- OUTSIDE RECORDS SUMMARY | 2020-11-03 21:47 | XMS REPORT | Encounter Summary ---
Author Author [facility] Organization [facility] Address Unknown Phone Unavailable Care Team Providers Care Forensic Psychologist Name Role Phone Geraldo Mcknight MD PCP Dale Leal DO 21 Unavailable Reason for Referral * Radiology Services (Routine) Referred By Contact Referred To Contact Status Reason Specialty Diagnoses / Procedures No Delarosa APRN-NP [address] [facility] [address] [place] [address] Rad[address] [place] [address] [address] 2, [address] [place] [address] Canceled Radiology Diagnoses Colovesical fistula P rocedures CYSTOGRAM W/FLUOROSCOPY Electronically signed by No ZAPATA at Reason for Visit * Auth/Cert Referred By Contact Referred To Contact Status Reason Specialty Diagnoses / Procedures Diagnoses Urinary fistula Urinary fistula [N36.0] P rocedures IN COLONOSCOPY FLX DX W/COLLJ SPEC WHEN PFRMD IN CYSTO BLADDER W/URETERAL CATHETERIZATION COLONOSCOPY DIAGNOSTIC WITH SPECIMEN COLLECTION BY BRUSHING/ WASHING - FLEXIBLE CYSTOURETHROSCOPY WITH URETERAL CATHETERIZATION WITH/ WITHOUT IRRIGATION/ INSTILLATION/ URETEROPYELOGRAPHY Encounter Details Care Team Description Date Type Department No Delarosa APRN-NP [address] Ortho[facility] [address] [place] [address] [phone] Canceled (Office-Scheduled from Wait Lis t) 09/26/2020 Hospital Imaging: [facility] [address], [address] [place] [address] Social History Date Tobacco Use Types Packs/Day [...] AM CDT Date Recorded COVID-19 Exposure Response 09/26/2020 10:41 AM CDT In the last month, have you been in contact with No / Unsure someone who was confirmed or suspected to have Coronavirus / COVID-19? documented as of this encounter Functional Status Date of Assessment Functional Status Response 09/05/2020 Does the patient have a hearing impairment: [...] impairment: No documented as of this encounter Medications at Time of Discharge Start Date End Date Medication Sig Dispensed Refills 10/03/2020 acetaminophen (TYLENOL) Take one 90 capsule 0 325 mg capsule capsule by mouth every 6 hours as needed. Max of 4,000 mg of acetaminophen in 24 hours. 10/03/2020 aluminum/magnesium Take 30 mL by 300 mL 0 hydroxide (MAALOX) mouth four 200/200 mg/5 mL susp oral times daily suspension as needed. 10/03/2020 buPROPion XL (WELLBUTRIN Take one 30 tablet 0 XL) 150 mg tablet tablet by mouth daily. Do not crush or chew. 10/03/2020 gabapentin (NEURONTIN) Take one 90 capsule 0 300 mg capsule capsule by mouth twice daily. 10/03/2020 levocetirizine (XYZAL) 5 Take one 30 tablet 0 mg tab tablet by mouth daily as needed. 10/04/2020 levothyroxine (SYNTHROID) Take one 90 tablet 0 50 mcg tablet tablet by mouth daily. 10/03/2020 Miscellaneous Medical Colostomy 20 each Supply [facility] Dispense twenty of each for one month of supplies Dx Colovesical fistula N32.1 10/03/2020 Miscellaneous Medical ICD-10:Ileost 1 each Supply [facility] Z93.2 Ileostomy supplies and accessories Dispense one month of supplies 10/03/2020 naphazoline 0.025 % Apply one 30 mL 0 /pheniramine 0.3 % drop to both (NAPHCON-A) 0.025/0.3 % eyes four drop times daily. 10/03/2020 ondansetron (ZOFRAN ODT) Dissolve one 30 tablet 0 4 mg rapid dissolve tablet by tablet mouth every [address] on tongue to dissolve. 10/03/[address] Take one 90 tablet 1 (PROTONIX) 40 mg tablet tablet by mouth twice daily. 10/03/2020 polyethylene glycol 3350 Take one 12 each 3 (MIRALAX) 17 g packet packet by mouth twice daily as needed. 10/03/2020 senna/docusate Take one 30 tablet 1 (SENOKOT-S) 8.6/50 mg tablet by tablet mouth twice daily. 10/03/2020 simethicone (MYLICON) 80 Chew one 30 tablet 1 mg chew tablet tablet by mouth every 6 hours as needed for Flatulence. 10/03/2020 acetaminophen (TYLENOL) Take 325 mg 0 325 mg capsule by mouth every 6 hours as needed. Max of 4,000 mg of acetaminophen in 24 hours. 09/20/2020 10/03/2020 aluminum/magnesium Take 30 mL by 0 hydroxide (MAALOX) mouth as 200/200 mg/5 mL susp oral Needed. suspension 10/03/2020 buPROPion SR Take 150 mg 0 (WELLBUTRIN-SR) 150 mg by mouth tablet daily. 09/20/2020 10/03/2020 cefepime (MAXIPIME) 2 Administer 0 g/20 mL 2 g in sodium two g through chloride 0.9% (NS) 0.9 % vein every 8 100 mL IVPB (MB+) hours for 9 days. Stop date 09/2909/20/2020 10/03/2020 gabapentin (NEURONTIN) Take one 90 capsule 0 300 mg capsule capsule by mouth twice daily. 10/03/2020 10/16/2020 HYDROcodone/acetaminophen Take one 30 tablet 0 (NORCO) 5/325 mg tablet tablet to two tablets by mouth every 6 hours as needed 09/20/2020 10/03/2020 HYDROcodone/acetaminophen Take one 30 tablet 0 (NORCO) 5/325 mg tablet tablet to two tablets by mouth every 6 hours as needed 10/03/2020 10/20/2020 hyoscyamine (ANASPAZ) Place one 30 tablet 1 0.125 mg rapid dissolve tablet under tablet tongue every 4 hours as needed. 07/18/2020 10/03/2020 hyoscyamine (ANASPAZ) Place one 30 tablet 1 0.125 mg rapid dissolve tablet under tablet tongue every 4 hours as needed. 10/03/2020 levocetirizine (XYZAL) 5 Take 1 tablet 0 mg tab by mouth daily as needed. 02/14/2020 10/03/2020 levothyroxine (SYNTHROID) Take 50 mcg 0 50 mcg tablet by mouth daily. 10/03/2020 10/16/2020 linezolid (ZYVOX) 600 mg Take one 0 tablet tablet by mouth twice daily. Tentatively through 10/12 or until discontinued by infectious diseases physician. 09/20/2020 10/03/2020 linezolid (ZYVOX) 600 mg Take one 0 tablet tablet by mouth twice daily for 9 days. Stop date 09/2910/03/2020 10/16/2020 loperamide (IMODIUM A-D) Initial: 4mg, 30 capsule 0 2 mg capsule followed by 2mg after each loose stool (max: 16mg/day) 10/03/2020 10/16/2020 meropenem (MERREM) 1 g/20 Administer 2 1 each 0 mL injection grams over 3 hours intravenously every 8 hours. Tentatively through 10/12 or until discontinued by infectious diseases physician. 10/03/2020 10/16/2020 methocarbamoL (ROBAXIN) Take one 30 tablet 1 750 mg tablet tablet by mouth twice daily as needed for Spasms. 07/18/2020 10/03/2020 methocarbamoL (ROBAXIN) Take one 15 tablet 1 750 mg tablet tablet by mouth twice daily. 10/03/2020 10/16/2020 micafungin (MYCAMINE) 100 Administer 900 mg 0 mg/5 mL 100 mg in sodium one hundred chloride 0.9% (NS) 0.9 % mg through 100 mL IVPB vein every 24 hours. Tentatively through 10/12 or until discontinued by infectious diseases physician. 09/20/2020 10/03/2020 micafungin (MYCAMINE) 100 Administer 0 mg/5 mL 100 mg in sodium one hundred chloride 0.9% (NS) 0.9 % mg through 100 mL IVPB vein every 24 hours for 9 days. Stop date 09/2909/20/2020 10/03/2020 Miscellaneous Medical Colostomy 20 each Supply [facility] Dispense twenty of each for one month of supplies Dx Colovesical fistula N32.1 09/20/2020 10/03/2020 naphazoline 0.025 % Apply one 0 /pheniramine 0.3 % drop to both (NAPHCON-A) 0.025/0.3 % eyes four drop times daily. 08/22/2020 10/03/2020 nicotine (NICODERM CQ Apply 1 patch 0 STEP 2) 14 mg/day to top of patchIndications: smoking skin as cessation directed every 24 hours. Rotate patch location. Indications: stop smoking 08/28/2020 10/03/2020 nicotine (NICODERM CQ Apply 1 patch 0 STEP 3) 7 mg/day to top of patchIndications: smoking skin as cessation directed every 24 hours. Rotate patch location. Indications: stop smoking 07/18/2020 10/03/2020 nicotine polacrilex Take one each 2 box 1 (NICORETTE) 2 mg gum by mouth every 1 hour as needed. Chew to soften and park in mouth between lip and gum. May use 1 piece per hour, not to exceed 24 per day, for 12 weeks. May be used for longer, if needed. 10/03/2020 ondansetron (ZOFRAN ODT) Dissolve 4 mg 0 4 mg rapid dissolve by mouth tablet every [address] on tongue to disolve. 07/19/2020 10/03/2020 other medication Total 0 Parenteral Nutrition. 10/03/2020 10/20/2020 oxybutynin XL (DITROPAN Take one 90 tablet 1 XL) 10 mg tablet tablet by mouth daily. 09/21/2020 10/03/2020 oxybutynin XL (DITROPAN Take one 5 tablet 0 XL) 15 mg tablet tablet by mouth daily for 5 days. 09/20/2020 10/03/[address] Take one 90 tablet 1 (PROTONIX) 40 mg tablet tablet by mouth twice daily. 07/18/2020 10/03/2020 polyethylene glycol 3350 Take one 12 each 3 (MIRALAX) 17 g packet packet by mouth twice daily as needed. 10/03/2020 scopolamine Apply 1 patch 0 (TRANSDERM-SCOP) 1mg over to top of 3 days 3 day patch skin as directed every 72 hours. 09/20/2020 10/03/2020 senna/docusate Take one 0 (SENOKOT-S) 8.6/50 mg tablet by tablet mouth twice daily. 07/18/2020 10/03/2020 simethicone (MYLICON) 80 Chew one 30 tablet 1 mg chew tablet tablet by mouth every 6 hours as needed for Flatulence. 09/20/2020 10/03/2020 sodium chloride PF 0.9% Inject 10 mL 10 mL 0 syringe to area(s) as directed twice daily. Flush Jvac twice daily 10/03/2020 10/16/2020 vancomycin (FIRVANQ) 25 Take 5 mL by 300 mL 0 mg/mL oral solution mouth twice daily. 07/19/2020 10/03/2020 vancomycin (FIRVANQ) 25 Take 5 mL by 0 mg/mL oral solution mouth twice daily. Continue while on antibiotics 07/18/2020 10/03/2020 vitamin A & D oint Apply 113 g 0 topically to affected area as Needed. documented as of this encounter Discharge Disposition Code Departure Means Destination Disposition Home Home or Self Care documented in this encounter Plan of Treatment [...] Visit Diagnoses Diagnosis Colovesical fistula Intestinovesical fistula documented in this encounter Orders First Ordered Date Imaging Orders Without Results Count Last Or dered Date CYSTOGRAM W/FLUOROSCOPY 1 09/26/2020 documented in this encounter Additional Health Concerns Last Indicated Resolved Time Infection Onset Date 09/13/2020 09/27/2020 8:54 AM CDT VRE 06/29/2020 Assessment Noted Time A fall risk assessment has been completed for the pat ient 09/26/2020 8:22 PM CDT documented as of this encounter
--- OUTSIDE RECORDS SUMMARY | 2020-11-03 21:47 | XMS REPORT | Encounter Summary ---
Author Author [facility] Organization [facility] Address Unknown Phone Unavailable Care Team Providers Care Washer Operator Name Role Phone Geraldo Mcknight MD PCP Dale Leal DO 23 Unavailable Reason for Visit * Reason Comments Labs Only * Auth/Cert Referred By Contact Referred To Contact Status Reason Specialty Diagnoses / Procedures Diagnoses Urinary fistula Urinary fistula [N36.0] P rocedures IA COLONOSCOPY FLX DX W/COLLJ SPEC WHEN PFRMD IA CYSTO BLADDER W/URETERAL CATHETERIZATION COLONOSCOPY DIAGNOSTIC WITH SPECIMEN COLLECTION BY BRUSHING/ WASHING - FLEXIBLE CYSTOURETHROSCOPY WITH URETERAL CATHETERIZATION WITH/ WITHOUT IRRIGATION/ INSTILLATION/ URETEROPYELOGRAPHY Encounter Details Care Team Description Date Type Department Loren Garrido, REGIONAL HR MANAGER-DIVISION ENGINEER [address] [place] [address] [phone] Colovesical fistula 09/26/2020 Nurse Only Oncology: [facility] [address] [place] [address]. [place], [place] [phone] Social History Date Tobacco Use Types Packs/Day [...] patient have a visual impairment: Yes - [place] ders 07/31/2020 Does the patient have impaired [...] Procedure Name Priority Date/Time Associated Diag nosis HC CBC,AUTOMATED STAT 09/26/2020 Colovesical f istula 12:31 PM CDT HC COMPREHENSIVE STAT 09/26/2020 Colovesical f istula METABOLIC PANEL 12:31 PM CDT documented in this encounter Results * CBC (09/26/2020 12:31 PM CDT) White Blood 14.3 (H) 4.5 - 11.0 K/UL [facility] Cells RBC 3.45 (L) 4.0 - 5.0 M/UL [facility] Hemoglobin 9.6 (L) 12.0 - 15.0 GM/DL [facility] Hematocrit 30.0 (L) 36 - 45 % [facility] MCV 86.8 80 - 100 FL [facility] MCH 27.9 26 - 34 PG [facility] MCHC 32.2 32.0 - 36.0 G/DL [facility] RDW 16.5 (H) 11 - 15 % [facility] Platelet Count 778 (H) 150 - 400 K/UL [facility] MPV 7.5 7 - 11 FL [facility] Specimen Performing Organization Address City/State/ZIP Code P sid Number [facility] [id number] [phone] * COMPREHENSIVE METABOLIC PANEL (09/26/2020 12:31 PM CDT) Sodium 134 (L) 137 - 147 MMOL/L [facility] Potassium 4.3 3.5 - 5.1 MMOL/L [facility] Chloride 102 98 - 110 MMOL/L [facility] Glucose 111 (H) 70 - 100 MG/DL [facility] Blood Urea 28 (H) 7 - 25 MG/DL [facility] Nitrogen Creatinine 0.78 0.4 - 1.00 MG/DL [facility] Calcium 9.5 8.5 - 10.6 MG/DL [facility] Total Protein 8.3 (H) 6.0 - 8.0 G/DL [facility] Total Bilirubin 0.5 0.3 - 1.2 MG/DL [facility] Albumin 3.3 (L) 3.5 - 5.0 G/DL [facility] Alk Phosphatase 150 (H) 25 - 110 U/L [facility] AST (SGOT) 26 7 - 40 U/L [facility] CO2 25 21 - 30 MMOL/L [facility] ALT (SGPT) 30 7 - 56 U/L [facility] Anion Gap 7 3 - 12 [facility] eGFR Non >60 >60 mL/min [facility] Comment: [place] The eGFR is not validated f or use in drug dosing adjustments. Continue to use estimated creatinine clearance per dosing reference text. Please contact the Clinical Pharmacist for questions. eGFR >60 >60 mL/min [facility] [place] Comment: The eGFR is not validated for use in drug dosing adjustments. Continue to use estimated creatinine clearance per dosing reference text. Please contact the Clinical Pharmacist for questions. Specimen Performing Organization Address City/State/ZIP Code P sid Number [facility] [address] [phone] documented in this encounter Visit Diagnoses Diagnosis Colovesical fistula Intestinovesical fistula documented in this encounter Additional Health Concerns Last Indicated Resolved Time Infection Onset Date 09/13/2020 09/27/2020 8:54 AM CDT VRE 06/29/2020 Assessment Noted Time A fall risk assessment has been completed for the pat ient 09/26/2020 8:22 PM CDT documented as of this encounter
--- OUTSIDE RECORDS SUMMARY | 2020-11-03 21:47 | XMS REPORT | Encounter Summary ---
Author Author [facility] Organization [facility] Address Unknown Phone Unavailable Care Team Providers Care Vp Hr Diversity Name Role Phone Geraldo Mcknight MD PCP Dale Leal DO 21 Unavailable Reason for Visit * Auth/Cert Referred By Contact Referred To Contact Status Reason Specialty Diagnoses / Procedures Diagnoses Urinary fistula Urinary fistula [N36.0] P rocedures DE COLONOSCOPY FLX DX W/COLLJ SPEC WHEN PFRMD DE CYSTO BLADDER W/URETERAL CATHETERIZATION COLONOSCOPY DIAGNOSTIC WITH SPECIMEN COLLECTION BY BRUSHING/ WASHING - FLEXIBLE CYSTOURETHROSCOPY WITH URETERAL CATHETERIZATION WITH/ WITHOUT IRRIGATION/ INSTILLATION/ URETEROPYELOGRAPHY Encounter Details Care Team Description Date Type Department Bran Martell AlanisDO [address] [place] [address] Abdominal fluid collection 09/26/2020 Hospital Patient Care Unit C A7: - Encounter [facility] 10/03/2020 [address] [facility] [address] [place] [address] Social History Date Tobacco Use Types Packs/Day [...] AM CDT Date Recorded COVID-19 Exposure Response 09/27/2020 3:37 PM CDT In the last month, have you been in contact with No / Unsure someone who was confirmed or suspected to have Coronavirus / COVID-19? documented as of this encounter Last Filed Vital Signs Reading Time Taken Comments Vital Sign 117/60 10/03/2020 7:42 AM CDT Blood Pressure 81 10/03/2020 7:42 AM CDT Pulse 36.9 C (98.5 F) 10/03/2020 7:42 AM CDT Temperature - - Respiratory Rate 94% 10/03/2020 7:42 AM CDT Oxygen Saturation - - Inhaled Oxygen Concentration 73.1 kg (161 lb 3.2 oz) 09/27/2020 12:00 PM CDT re-entered f or BMI calculation Weight 152.4 cm (5') 09/27/2020 12:00 PM CDT re-entered for B PR calculation Height 31.48 09/27/2020 12:00 PM CDT Body Mass Index documented in this [...] impairment: No documented as of this encounter Discharge Summaries * Dayanara Arrieta MD - 10/03/2020 12:56 PM CDT Discharge Summary Name: Beverly Torres Date Of : 1950 Age: 70 years Admit date: 09/26/2020 Discharge date: 10/03/2020 Discharge Attending: Bran Martell DO Discharge Summary Completed By: Dayanara Arrieta MD Service: Surgery-Oncology - [id number] Reason for hospitalization: Abdominal fluid collection [R18.8] Primary Discharge Diagnosis: Abdominal fluid collection Hospital Diagnoses: Hospital Problems Active Problems * (Principal) Abdominal fluid collection Chronic anemia Significant Past Medical History Colovesical fistula Diverticulitis Hypertension Hypoglycemia Hypothyroid PONV (postoperative nausea and vomiting) Rectovaginal fistula Right ureteral injury Sepsis (HCC) Allergies Bactrim [sulfamethoxazole-trimethoprim] and Blue dye Brief Hospital Course The patient was admitted and the following issues were addressed during this hos pitalization: (with pertinent details including admission exam/imaging/labs). Th e patient was admitted form clinic with concern for enterocutaneous fistula form ation due to drainage from midline wound. CT was performed which showed CT cys togram with posterior superior bladder wall defect and contained perivesicular c ontrast extravasation which extends to the rectal stump suture line and adjacent to opacified, tethered small bowel. Additional contrast opacification of the va josesito compatible with complex fistulous connection between these structures. Ext ravasation of oral contrast into an anterior abdominal extraperitoneal fluid collection with percutaneous drain in place at this. Urol ogy, ID, and IR were consulted. Urology recommended salomon to remain in place, n o surgical intervention. IR placed a new drain and ID adjusted her antibiotics from what she was currently getting at her previous SNF. Her midline wound was managed and over the course of her hospital stay after the drain went in it slow ed down significantly. Her diet was advanced as tolerated and her pain was cont rolled with oral medications. Once her drain cultures finalized her antibiotic regimen was finalized. A repeat CT scan was performed the day before discharge and it showed decreasing sizes of abdominal fluid collections and the drains luz maria ropriately placed. Her leukocytosis resolved. She was discharged back to SNF o n TPN and antibiotics with her drains and salomon in place. Items Needing Follow Up Pending items or areas that need to be addressed at follow up: Weekly CBC, repea t CT scan 10/12/20 Pending Labs and Follow Up Radiology Pending labs and/or radiology review at this time of discharge are listed below: if this area is blank, there are no items for review. Pending Labs Order Current Status CULTURE-BLOOD W/SENSITIVITY In process CULTURE-FUNGAL,OTHER Preliminary result Medications Medication List START taking these medications buPROPion XL 150 mg tablet; Commonly known as: WELLBUTRIN XL; Dose: 150 mg; Take one tablet by mouth daily. Do not crush or chew.; Quantity: 30 tablet; Refills: 0; Replaces: buPROPion HCL SR 150 mg tablet loperamide 2 mg capsule; Commonly known as: IMODIUM A-D; Initial: 4mg, followed by 2mg after each loose stool (max: 16mg/day); Quantity: 30 capsule; Refills: 0 meropenem 1 g/20 mL injection; Commonly known as: MERREM; Administer 2 grams over 3 hours intravenously every 8 hours. Tentatively through 10/12 or until discontinued by infectious diseases physician.; Quantity: 1 each; Refills: 0 CHANGE how you take these medications aluminum/magnesium hydroxide 200/200 mg/5 mL Susp oral suspension; Commonly known as: MAALOX; Dose: 30 mL; Take 30 mL by mouth four times daily as needed.; Quantity: 300 mL; Refills: 0; What changed: when to take this linezolid 600 mg tablet; Commonly known as: ZYVOX; Dose: 600 mg; Take one tablet by mouth twice daily. Tentatively through 10/12 or until discontinued by infectious diseases physician.; Quantity: ; Refills: 0; What changed: additional instructions methocarbamoL 750 mg tablet; Commonly known as: ROBAXIN; Dose: 750 mg; Take one tablet by mouth twice daily as needed for Spasms.; Quantity: 30 tablet; Refills: 1; What changed: when to take this, reasons to take this micafungin (MYCAMINE) 100 mg/5 mL 100 mg in sodium chloride 0.9% (NS) 0.9 % 100 mL IVPB; Dose: 100 mg; Administer one hundred mg through vein every 24 hours. Tentatively through 10/12 or until discontinued by infectious diseases physician.; Quantity: 900 mg; Refills: 0; What changed: additional instructions * Miscellaneous Medical Supply Mis; Colostomy supplies and accessories Dispense twenty of each for one month of supplies Dx Colovesical fistula N32.1; Quantity: 20 each; Refills: 99; What changed: Another medication with the same name was added. Make sure you understand how and when to take each. * Miscellaneous Medical Supply Mis; ICD-10:Ileostomy in place (HCC) Z93.2 Ileostomy supplies and accessories Dispense one month of supplies; Quantity: 1 each; Refills: 99; What changed: You were already taking a medication with the same name, and this prescription was added. Make sure you understand how and when to take each. ondansetron 4 mg rapid dissolve tablet; Commonly known as: ZOFRAN ODT; Dose: 4 mg; Dissolve one tablet by mouth every [address] on tongue to dissolve.; Quantity: 30 tablet; Refills: 0; What changed: additional instructions oxybutynin XL 10 mg tablet; Commonly known as: DITROPAN XL; Dose: 10 mg; Take one tablet by mouth daily.; Quantity: 90 tablet; Refills: 1; What changed: medication strength, how much to take vancomycin 25 mg/mL oral solution; Commonly known as: FIRVANQ; Dose: 125 mg; Take 5 mL by mouth twice daily.; Quantity: 300 mL; Refills: 0; What changed: additional instructions * This list has 2 medication(s) that are the same as other medications prescribed for you. Read the directions carefully, and ask your doctor or other care provider to review them with you. CONTINUE taking these medications acetaminophen 325 mg capsule; Commonly known as: TylenoL; Dose: 325 mg; Take one capsule by mouth every 6 hours as needed. Max of 4,000 mg of acetaminophen in 24 hours.; Quantity: 90 capsule; Refills: 0 gabapentin 300 mg capsule; Commonly known as: NEURONTIN; Dose: 300 mg; Take one capsule by mouth twice daily.; Quantity: 90 capsule; Refills: 0 HYDROcodone/acetaminophen 5/325 mg tablet; Commonly known as: NORCO; Dose: 1-2 tablet; Take one tablet to two tablets by mouth every 6 hours as needed; Quantity: 30 tablet; Refills: 0 hyoscyamine 0.125 mg rapid dissolve tablet; Commonly known as: ANASPAZ; Dose: 0.125 mg; Place one tablet under tongue every 4 hours as needed.; Quantity: 30 tablet; Refills: 1 levocetirizine 5 mg Tab; Commonly known as: XYZAL; Dose: 1 tablet; Take one tablet by mouth daily as needed.; Quantity: 30 tablet; Refills: 0 levothyroxine 50 mcg tablet; Commonly known as: SYNTHROID; Dose: 50 mcg; Take one tablet by mouth daily.; Quantity: 90 tablet; Refills: 0; Start taking on: October 04, 2020 naphazoline 0.025 % /pheniramine 0.3 % 0.025/0.3 % Drop; Commonly known as: NAPHCON-A; Dose: 1 drop; Apply one drop to both eyes four times daily.; Quantity: 30 mL; Refills: [address] 40 mg tablet; Commonly known as: PROTONIX; Dose: 40 mg; Take one tablet by mouth twice daily.; Quantity: 90 tablet; Refills: 1 polyethylene glycol 3350 17 g packet; Commonly known as: MIRALAX; Dose: 17 g; Take one packet by mouth twice daily as needed.; Quantity: 12 each; Refills: 3 senna/docusate 8.6/50 mg tablet; Commonly known as: SENOKOT-S; Dose: 1 tablet; Take one tablet by mouth twice daily.; Quantity: 30 tablet; Refills: 1 simethicone 80 mg chew tablet; Commonly known as: MYLICON; Dose: 80 mg; Chew one tablet by mouth every 6 hours as needed for Flatulence.; Quantity: 30 tablet; Refills: 1 STOP taking these medications buPROPion HCL SR 150 mg tablet; Commonly known as: WELLBUTRIN SR; Replaced by: buPROPion XL 150 mg tablet cefepime (MAXIPIME) 2 g/20 mL 2 g in sodium chloride 0.9% (NS) 0.9 % 100 mL IVPB (MB+) nicotine 14 mg/day patch; Commonly known as: NICODERM CQ STEP 2 nicotine 7 mg/day patch; Commonly known as: NICODERM CQ STEP 3 nicotine polacrilex 2 mg gum; Commonly known as: NICORETTE other medication PRO-STAT SUGAR FREE 15-100 gram-kcal/30 mL Liqd; Generic drug: Amino Acids-Protein Hydrolys scopolamine 1mg over 3 days 3 day patch; Commonly known as: TRANSDERM-SCOP sodium chloride PF 0.9% syringe vitamin A & D Oint Return Appointments and Scheduled Appointments Scheduled appointments: Oct 20, 2020 11:00 AM PRO 30 with Alexander Rodriguez MD, UROLOGY PROCEDURE RM 1 Urology: [facility] (Urology) [address] [place] [address]. [address], [address] [facility] [address] Oct 23, 2020 10:30 AM Telehealth PT Return with India Hassan MD Infectious Diseases: Main [place] (Internal Medicine) [address] [facility]. [address] [facility] [address] Consults, Procedures, Diagnostics, Micro, Pathology Consults: Infectious disease, Urology, Interventional Radiology Surgical Procedures & Dates: None Significant Diagnostic Studies, Micro and Procedures: noted in brief hospital co urse Significant Pathology: noted in brief hospital course Nutrition: Dietitian Documentation Discharge Disposition, Condition Patient Disposition: Residential Facility Condition at Discharge: Stable Code Status Code Status History Date Active Date Inactive Code Status Order ID 09/26/2020 [id number] 10/03/2020 1501 Full Code [id number] Nika Stark MD Inpati ent 09/04/2020 1941 09/21/2020 1750 Full Code [id number] Mohit Dacosta MD Inpatient Only showing the last 2 code statuses. Patient Instructions Regular Diet You have no dietary restrictions. Please continue with a healthy balanced diet . Try to drink at least 64 ounces of water per day. Finish all 5 days of your nutrition shakes. Activity as Tolerated It is important to keep walking at least 3 times per day after you leave the ho spital. Moving around can help prevent blood clots, lung infection (pneumonia) and other problems. Gradually increasing the number of times you are up moving around will help you return to your normal activity level more quickly. You ranulfo uld try to spend most of the day up walking or sitting in a chair unless you are sleeping. Driving Restrictions No driving while taking opioids (narcotics) pain medication. Lifting Restrictions Do not lift more than 10 pounds for 6 week(s). Sexual Activity Restrictions Please refrain from sexual activity until after follow-up appointment. Your cantu rgeon will tell you when it is safe for you to have sex at your appointment. Wound Care Keep wound clean and dry. Do not submerge under water. Ok to shower. Can cover wound with dry gauze if needed, otherwise keep open. Report These Signs and Symptoms Call your doctor if you have any of the following symptoms: *Temperature over 101 F *Increased redness, tenderness, or swelling at the incision site *Excessive drainage from the incision *Drainage that smells bad *If the edges of your incision come apart *Severe abdominal pain with or without bloating *Frequent nausea and/or vomiting Questions About Your Stay If you have an emergency after discharge, call 1. For questions after discharge during business hours (8:00-4:00pm) call [phone] and ask for your surgeons nurse. For urgent questions after discharge after business hours, call [phone] and ask to have the provider floor covering contractor for surgical oncology paged. Discharging attending physician: BRAN MARTELL [[id number]] PICC Line Halfway Care Instructions: *Catheter must be covered with plastic wrap before showering. Never submerge th e catheter in a bathtub, hot tub, or swimming pool. *The dressing and biopatch must be changed every 7 days or as needed if it becom es wet or soiled. The injection caps should be changed every 7 days. Please re neo to your physician, clinic, or home health nurse for dressing or cap change i nstructions. J-Vac Drain Halfway care instructions: *WASH HANDS PRIOR TO ANY HANDLING OF DRAIN. *Please write down daily (total for 24 hours) drain output, and empty multiple t imes a day if needed or according to physician's instructions. *To empty drain, squeeze inner suction mechanism until you hear a "click." Open the lid on the top of the drain and pour fluid into a measuring cup. Close the lid. Bend the bottom of the drain until you hear a "crack," and the inner mech anism will release to recreate suction. *It is okay to shower with the drain, though make sure the entry site is patted dry. *Bring the drain record to your next clinic appointment. *Please secure the drain to your clothes using a safety pin. *DO NOT TRY TO PUSH THE DRAIN BACK IN IF IT GETS PULLED OUT (even a little bit), THIS IS A BIG INFECTION RISK. If you have any problems with the drain (for example, large amounts of fluid, very bloody fluid, or loss of suction), please call your doctor. Drains to be flushed twice daily. Urinary/Suprapubic Catheter Care General Urinary Catheter Care: Home Care Instructions *Keep the catheter secured to your leg at all times. *You can shower with the catheter. Do not take baths. *You may notice some blood- or pink-tinged urine. If this happens, relax, sit do wn, and drink water. If you are very active, this can happen and it is normal. *If you are concerned about your catheter, it stops draining, or if you are pass ing dark bloody urine (red wine appearance), please call your doctor. Supplies to help you with your home care: *Bacitracin, used as directed by doctor *Leg bag x 2 *Overnight bag x 2 *Foam tape to secure your catheter Ileostomy Care 1. Your ostomy nurse will arrange for you to have an initial supply of pouches at the time of discharge. 2. You will be responsible for establishing a ostomy supplier after discharge. *If you have set up home health, contact your agency to assist with this proces s. *If you have declined home health assistance call the [employer] at [phone] or go to [email or web address]. They can provi de additional assistance with helping you find a supplier. *If you have an urgent supply need, you may consider contacting [facility] at [phone]. This is a local business in the [employer] that supplies in ostomy products. 3. Monitor your ileostomy output daily until your clinic visit. Your nurse will give you a tracking sheet and a measuring device to take home. 4. Purchase Pedialyte, Metamucil or Citrucel powder, and Imodium 2mg tablets whe n you get home. 5. Follow instructions for your ostomy output below. (Add up your total output i n a 24 hour period at the same time every day, ideally in the morning) - 17-27 oz (500-800 ml) *Continue daily 1 pack Metamucil *Continue to monitor output *Drink of a KU plastic mug of Pedialyte - 27-34 oz (800-1000 ml) *Continue daily 1 pack Metamucil *Start 2 mg Imodium daily *Drink 1 KU plastic mug of Pedialyte *Continue to monitor output - 34-51 oz (4463-2901 ml) *Continue daily 1 pack Metamucil *Increase Imodium to 2 mg twice daily *Drink 1 - 2 of a KU plastic mugs of Pedialyte *Call your doctor's clinic - Greater than 51 oz (greater than 1500 ml) *Continue daily 1 pack Metamucil *Increase Imodium to 2 mg three times daily *Drink 2 KU plastic mugs of Pedialyte *Call your doctor's clinic 4. Call your doctor if you: *Don't have any stool output out of your ostomy for 24 hours *You have more than 1000mL out of your ostomy in 24 hours *The ostomy color or appearance changes *You are having problems with pouching or skin breakdown around the ostomy and have already contacted the ostomy nurse at [phone] without resolution *Blood collecting in the pouch (a little bleeding when cleaning the stoma is no rmal) *Increased pain at the ostomy site, especially in the presence of no stool outp ut *If you develop a bulge near or around the ostomy site Does the patient have high ileostomy output (greater than 1000cc in 24 hrs.)? No Opioid (Narcotic) Safety Information OPIOID (NARCOTIC) PAIN MEDICATION SAFETY We care about your comfort, and believe you need opioid medications at this time to treat your pain. An opioid is a strong pain medication. It is only availab le by prescription for moderate to severe pain. Usually these medications are u sed for only a short time to treat pain, but sometimes will be prescribed for lo nger. Talk with your doctor or nurse about how long they expect you to need thi s medication. When used the right way, opioids are safe and effective medications to treat you r pain, even when used for a long time. Yet, when used in the wrong way, opioid s can be dangerous for you or others. Opioids do not work for everyone. Most p atients do not get full relief of their pain from opioid medication; full relief of your pain may not be possible. For your safety, we ask you to follow these instructions: *Only take your opioid medication as prescribed. If your pain is not controlled with the prescribed dose, or the medication is not lasting long enough, call yo ur doctor. *Do not break or crush your opioid medication unless your doctor or pharmacist s ays you can. With certain medications, this can be dangerous, and may cause angela th. *Never share your medications with others, even if they appear to have a good re ason. Never take someone else's pain medication-this is dangerous, and illegal (a crime). Overdoses and deaths have occurred. *Keep your opioid medications safe, as you would with nash, in a lock box or sim ilar container. *Make sure your opioids are going to be secure, especially if you are around chi ldren or teens. *Talk with your doctor or pharmacist before you take other medications. *Avoid driving, operating machinery, or drinking alcohol while taking opioid alexis n medication. This may be unsafe. Pain medications can cause constipation. Constipation is bowel movements that ar e less often than normal. Stools often become very hard and difficult to pass. T his may lead to stomach pain and bloating. It may also cause pain when trying to use the bathroom. Constipation may be treated with suppositories, laxatives or stool softeners. A diet high in fiber with plenty of fluids helps to maintain re gular, soft bowel movements. Complete if patient is going to a Residential Facility I certify that the patient requires skilled care Yes The patient's stay is expected to be less than 30 days Yes I will be in charge of patient in alf No Additional Orders: Case Management, Supplies, Home Health Home Health/DME None Signed: Dayanara Arrieta MD 10/03/2020 cc: Primary Care Physician: Geraldo Mcknight Referring physicians: Loren Garrido APRN-NP Additional provider(s): Did we miss something? If additional records are needed, please fax a request on office letterhead to [phone]. Please include the patient's name, date of b irth, fax number and type of information needed. Additional request can be made by email at [email or web address]. For general questions of information about electronic records sharing, call [phone]. documented in this encounter Discharge Instructions * Patient Instructions* Rachel Maloney RN - 09/27/2020 3:30 PM CDT Images from the original note were not included. INTERVENTIONAL RADIOLOGY DISCHARGE INSTRUCTIONS ABSCESS/FLUID COLLECTION DRAIN An abscess is a localized collection of infected fluid that usually occurs in th e abdomen, pelvis, or chest. In some cases, a fluid collection may form that i s not infected but that may need to be drained to alleviate pressure or pain on surrounding tissues. During abscess or fluid collection drainage, the Interven tional Radiologist inserts a small, flexible tube into the abscess or fluid gracy ection using x-ray or CT guidance. The tube, which may also be referred to as a drain or catheter, is then connected to a drainage bag, suction bulb, accordio n drainage bag, or other drainage reservoir which assists in removing the absces s drainage or fluid collection from your body. POST-PROCEDURE PAIN: Pain control following your procedure is a priority for both you and your Phy sicians. Some soreness or tenderness at the site is to be expected for several days. W e recommend taking over the counter analgesics to help relieve this pain. Alternative methods for pain relief include but not limited to heat or cold c ompress, relaxation techniques, rest, and changing of positions. If pain continues after 5-7 days or you have severe pain not relieved by medi cation, please contact us as directed below. POST-PROCEDURE ACTIVITY: A responsible adult must drive you home. If you receive sedation, narcotic pain medication or anesthesia for the proce dure, you should not drive or operate heavy machinery or do anything that requir es concentration for at least 24 hours after procedure completion. It is recommended that a responsible adult be with you until morning. Avoid any strenuous activity that may affect the drain. Do not lift more than 10 lbs. and avoid pushing, pulling or straining while the drain is in place. Avoid any activity that causes tension or pulling on the drain and avoid bend ing or crimping the tube. Never use scissors, pins or other sharp objects near the tube. POST-PROCEDURE SITE CARE: Care instructions for the first two weeks: You will have a bandage around the tube site. Keep this clean and dry. Always wash your hands thoroughly before handling the tube or touching near t he procedure site. For the firsttwo weeksafter placement,the bandage around the tube shoul d be changedevery 2 days or if it becomes wet or soiled. 1. Start by cleaning in a circular motion around the tube site with mild soap an d clean gauze. Work outward 3-4 inches. 2. Rinse with saline or water and gently pat dry with clean gauze. 3. Place dry gauze around the tube and secure bandage and tube with tape or an o cclusive dressing such as tegaderm. You may shower but you must cover the tube site carefully with plastic wrap t o keep dry. Ensure the tube is secured and does not tug at the site. Otherwise y ou may take sponge baths, taking care to keep the bandage/tube site dry. Care instructions after two weeks: Remove the bandage before showering and shower with the bandage off. How to clean in the shower: 1. Ensure the tube is secured and does not tug at the site. 2. Clean around the tube site gently with mild soap and water. 3. After you shower, dry gently around the tube site. 4. Place clean, dry gauze around the tube site and secure with tape. Other instructions: You will be provided with an initial supply kit and resources to obtain addit ional dressings. You will receive a prescription for pre-filled saline syringes. Wash your hands before and after emptying the drainage bag. Neversubmerge the tube or tube site underwater (no bathtub, swimming, hot t ub, etc.) Do not use ointments, creams or powders around the tube site unless specifica lly ordered by your doctor. FLUSHING THE DRAIN: Your physician may direct you to flush your abscess/fluid collection tube. Alway s wash your hands thoroughly before flushing. Your catheter should beflushed w ith 5 mL sterile saline every 8hours unless otherwise instructed by your docto r. If you feel pressure or resistance when flushing, stop. Do not try to force th e saline to flush. Call your doctor right away. The drain will be equipped with a 3-way stopcock or a flush adapter. Instruction s for flushing these different types are described below. Stockcock Flushin. Turn the stopcock off to the drainage bag. 2. Clean the flushing port with an alcohol wipe for 30 seconds. 3. Attach the flush syringe. 4. Gently inject the saline and remove the syringe. 5. Turn the stopcock off to the flushing port andopen to the drainage bag. Flush Adaptor Flushin. Clamp the tubing. 2. Clean the flushing port with an alcohol wipe for 30 seconds. 3. Attach the flush syringe.Gentlyinject the saline and remove the syringe. Unclamp the tube. EMPTYING THE DRAIN: Empty the drain when flushing or as needed if the drain reservoir appears to be full. To activate the system, compress the antonio completely (see Figure 4). Do no t try to pump the antonio; it will fill as it draws fluid from the drainage site . If the antonio is not re-activated after filling, the system will convert to g ravity drainage thus preventing fluid backup. To empty the accordion drainage ba. Twist open the blue cap and empty into a measuring cup. 2. Twist the blue cap closed immediately after draining. To re-activate the system, compress the antonio. The fluid in the antonio dustin l be discharged into the bag and the suction will be re-established (see Figure 4). Write down the amount of drainage on your drain log. Subtract the amount of s quang used for flushing. When the amount of drainage drops to less than 10-15mL per day, it will be time to have the drain reassessed. Be sure to notify your do ctor when this happens. DIET/MEDICATIONS: You may resume your previous diet after the procedure. If you receive sedation or anesthesia, avoid any foods or beverages containin g alcohol for at least 24 hours. Please see the Medication Reconciliation sheet for instructions regarding res uming your home medications. CALL THE DOCTOR IF: Bright red blood soaks the bandage around the drain site or daniella blood is se en in the drain tube or reservoir. You may noticea small amount of blood in the drainage for 1-2 days. The tube has moved out of place where it enters your skin.Do not try to p ush the tube back inside.Secure the tube with tape and call the doctor. The tube comes out. Cover the area with a bandage and call the doctor immed iately. No drainage is seen coming out of the drain or you are unable to flush the dr garcia tube. Check first for kinks in the tubing. Call your doctor if there are n o kinks seen and the drain is not draining. Drainage is leaking around the tube site onto the skin. You have pain not relieved by medication. Some soreness at the site is to b e expected for several days after tube placement. You have signs of infection such as: fever greater than 101F, chills, redness , warmth, swelling, drainage or pus around the tube site. For any of the above symptoms or for problems or concerns related to the procedu re,call the [facility], [place] location at for Friday-Friday 7-5. After-hours and weekends, please [phone] and ask for the Interventional [facility] [employer]uff on-call. You oryour caregiver should call [phone] for any severe bleeding,dizziness, shor tness of breath or loss of consciousness. Drainage Date Time Amount documented in this encounter Medications at Time of Discharge [...] 10/03/2020 Miscellaneous Medical Colostomy 20 each Supply [facility] supplies and accessories Dispense twenty of each for one month of supplies Dx Colovesical fistula N32.1 10/03/2020 Miscellaneous Medical ICD-10:Ileost 1 each Supply [facility] ketan in place ([facility]) Z93.2 Ileostomy supplies and accessories Dispense one [...] 6 hours as needed for Flatulence. 10/03/2020 10/16/2020 HYDROcodone/acetaminophen Take one 30 tablet 0 (NORCO) 5/325 mg tablet tablet to two tablets by mouth every 6 hours as needed 10/03/2020 10/20/2020 hyoscyamine (ANASPAZ) Place one 30 tablet 1 0.125 mg rapid dissolve tablet under tablet tongue every 4 hours as needed. 10/03/2020 10/16/2020 linezolid (ZYVOX) 600 mg Take one 0 tablet tablet by mouth twice daily. Tentatively through 10/12 or until discontinued by infectious diseases physician. 10/03/2020 10/16/2020 loperamide (IMODIUM A-D) Initial: 4mg, 30 [...] mouth twice daily as needed for Spasms. 10/03/2020 10/16/2020 micafungin (MYCAMINE) 100 Administer 900 mg 0 mg/5 mL 100 mg in sodium one hundred chloride 0.9% (NS) 0.9 % mg through 100 mL IVPB vein every 24 hours. Tentatively through 10/12 or until discontinued by infectious diseases physician. 10/03/2020 10/20/2020 oxybutynin XL (DITROPAN Take one 90 tablet 1 XL) 10 mg tablet tablet by mouth daily. 10/03/2020 10/16/2020 vancomycin (FIRVANQ) 25 Take 5 mL by 300 mL 0 mg/mL oral solution mouth twice daily. documented as of this encounter Ordered Prescriptions Start Date End Date Prescription Sig Dispensed Refills 10/03/2020 Miscellaneous Medical ICD-10:Ileost 1 each Supply [facility] ketan in place ([facility]) Z93.2 Ileostomy supplies and accessories Dispense one month of supplies 10/03/2020 senna/docusate Take one 30 tablet 1 (SENOKOT-S) 8.6/50 mg tablet by tablet mouth twice daily. 10/03/2020 polyethylene glycol 3350 Take one 12 each 3 (MIRALAX) 17 g packet packet by mouth twice daily as needed. 10/03/2020 ondansetron (ZOFRAN ODT) Dissolve one 30 tablet 0 4 mg rapid dissolve tablet by tablet mouth every [address] on tongue to dissolve. 10/04/2020 levothyroxine (SYNTHROID) Take one 90 tablet 0 50 mcg tablet tablet by mouth daily. 10/03/2020 levocetirizine (XYZAL) 5 Take one 30 tablet 0 mg tab tablet by mouth daily as needed. 10/03/2020 buPROPion XL (WELLBUTRIN Take one 30 tablet 0 XL) 150 mg tablet tablet by mouth daily. Do not crush or chew. 10/03/2020 aluminum/magnesium Take 30 mL by 300 mL 0 hydroxide (MAALOX) mouth four 200/200 mg/5 mL susp oral times daily suspension as needed. 10/03/2020 simethicone (MYLICON) 80 Chew one 30 tablet 1 mg chew tablet tablet by mouth every 6 hours as needed for Flatulence. 10/03/[address] Take one 90 tablet 1 (PROTONIX) 40 mg tablet tablet by mouth twice daily. 10/03/2020 naphazoline 0.025 % Apply one 30 mL 0 /pheniramine 0.3 % drop to both (NAPHCON-A) 0.025/0.3 % eyes four drop times daily. 10/03/2020 gabapentin (NEURONTIN) Take one 90 capsule 0 300 mg capsule capsule by mouth twice daily. 10/03/2020 Miscellaneous Medical Colostomy 20 each Supply [facility] supplies and accessories Dispense twenty of each for one month of supplies Dx Colovesical fistula N32.1 10/03/2020 acetaminophen (TYLENOL) Take one 90 capsule 0 325 mg capsule capsule by mouth every 6 hours as needed. Max of 4,000 mg of acetaminophen in 24 hours. 10/03/2020 10/16/2020 linezolid (ZYVOX) 600 mg Take one 0 tablet tablet by mouth twice daily. Tentatively through 10/12 or until discontinued by infectious diseases physician. 10/03/2020 10/16/2020 meropenem (MERREM) 1 g/20 Administer 2 1 each 0 mL injection grams over 3 hours intravenously every 8 hours. Tentatively through 10/12 or until discontinued by infectious diseases physician. 10/03/2020 10/16/2020 micafungin (MYCAMINE) 100 Administer 900 mg 0 mg/5 mL 100 mg in sodium one hundred chloride 0.9% (NS) 0.9 % mg through 100 mL IVPB vein every 24 hours. Tentatively through 10/12 or until discontinued by infectious diseases physician. 10/03/2020 10/16/2020 loperamide (IMODIUM A-D) Initial: 4mg, 30 capsule 0 2 mg capsule followed by 2mg after each loose stool (max: 16mg/day) 10/03/2020 10/16/2020 vancomycin (FIRVANQ) 25 Take 5 mL by 300 mL 0 mg/mL oral solution mouth twice daily. 10/03/2020 10/20/2020 oxybutynin XL (DITROPAN Take one 90 tablet 1 XL) 10 mg tablet tablet by mouth daily. 10/03/2020 10/16/2020 methocarbamoL (ROBAXIN) Take one 30 tablet 1 750 mg tablet tablet by mouth twice daily as needed for Spasms. 10/03/2020 10/20/2020 hyoscyamine (ANASPAZ) Place one 30 tablet 1 0.125 mg rapid dissolve tablet under tablet tongue every 4 hours as needed. 10/03/2020 10/16/2020 HYDROcodone/acetaminophen Take one 30 tablet 0 (NORCO) 5/325 mg tablet tablet to two tablets by mouth every 6 hours as needed documented in this encounter Discharge Disposition Code Departure Means Destination Disposition Wheelchair Residential Facility documented in this encounter Progress Notes * Marivel Luis RN - 10/03/2020 12:56 PM CDT Report given to nurse Salazar at [place]. No further questions at this time. * Naomie Nolan RD - 10/03/2020 12:42 PM CDT Nutrition Support Service (NSS) Brief Note Pertinent Labs: 10/03/2020 Sodium 137 Potassium 4.1 Chloride 104 CO2 25 Anion Gap 8 BUN 28 (H) Creatinine 0.87 Glucose 93 Calcium 8.7 Magnesium 2.4 Phosphorus 3.4 Height (cm): Height: 152.4 cm (60")(re-entered for BMI calculation) Admit Weight (kg): Weight: 73.1 kg (161 lb 3.2 oz)(re-entered for BMI calculatio n) Current Weight (kg): Weight: 73.1 kg (161 lb 3.2 oz)(re-entered for BMI calculat ion) [place] Body Weight (kg): 58 kg, BMI 24.9 BMI (kg/m2): Body mass index is 31.48 kg/m. Estimated Kcal Needs: 6967-7295 (25-28 kcal/kg desired weight of 58 kg) Estimated Protein Needs: 80-90 (1.5 g/kg desired weight of 58 kg) Chart and labs reviewed. No changes to regimen warranted to day. Doing well with 16-hour cycle so far. Patient is discharging back to facility this afternoon. PN Orders (to start at 20:30): provides 1420 kcal Volume: 1800ml (60-120mL/hr, 16-hour cycle) Macronutrients: 85g amino acids (goal), 200g dextrose (goal), 200ml lipid (goal) Lytes/Additives: 185mEq Na (3/4 NS equivalent), 65mEq K+, 10mEq calcium, 14mEq m agnesium, 15mmol Phos, 10ml MVI, 1ml trace elements, 300mg vitamin C, Cl:Acetate 1:1 Plan / Recommendations: Continue TPN while GI function is impaired; limit PO to small, easy to digest portions to help with healing and maintenance of gut integrity. Outside electrolyte and fluid replacement per primary team; NSS to make bauer es to TPN routinely M-, weekends per on-call. Naomie Nolan RD, LD, [facility] Office: [facility] * Marti Edouard MD - 10/03/2020 12:36 PM CDT Brief Catheter Placement Note Indication for catheter: bladder fistula in a pt with a PMH of partial cystectom y, complex cystorrhaphy, and L ureteral stent placement Using sterile technique, a 20 Fr 2-way latex catheter was placed without difficu lty and advanced into the bladder. Dr. Carrillo assisted and was present for en tire catheter placement. Immediate return of clear yellow urine was noted, and 10 cc of sterile water was used to inflate the balloon. Catheter duration per primary team. Marti Edouard MD * Marivel Luis RN - 10/03/2020 10:42 AM CDT Spoke with oncall resident and was told to keep picc line in for tpn and further antibiotics. medical aides teacher notified that blood mixed with stool was in tubing of rig ht jvac. No new orders at this time. Blood cultures drawn. * Juany Ferguson MD - 10/03/2020 8:31 AM CDT Infectious Diseases Progress Note Today's Date: 10/03/2020 Admission Date: 09/26/2020 Reason for consultation: anastamotic leak Type: Co-Management w/Signed Orders Assessment: Colovesicular fistula s/p takedown partial cystectomy (09/04) Subincisional abdominal abscess (VRE, C.glabrata, PSAE) s/p PTC drain (09/13) Cystectomy leak possible redeveloping fistula, abscess/hematoma (09/26) s/p PTC d rain (09/27) - 2011 diverticulitis c/b rectovaginal fistula - 12/2011 s/p sigmoidectomy, vaginal cuff repair ([facility], Dr. 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 Leal + Dr. Vargas ) - 07/2013 s/p ventral hernia repair with panniculectomy - 09/2013 recurrentrectovaginalfistula, s/pdiverting transverse colostomy - 08/2014 s/p colostomy takedown --> c/banastomotic breakdown - 2015 s/p lapredoofcolorectal anastomosis - 2015 onwards --> persistentcolovesicular fistula, chronicfecaluria, dysuria - 06/28/20 admit [facility] septic shock, pyelo - 06/28 CT a/p - L 5-cm extrarenal pelvic abscess, air in ureter, dilated R urete r, colovesicular fistula - 06/29 s/p R PCN urine cx VRE, B.thetaiotaomicron/other anaerobes, C.glabrata - 07/10 nephrostomy <100k C.parapsilosis (S fluc) - 07/10 urine cx >100k C.parapsilosis - 07/20-09/04 on ceftriaxone/flagyl/fluc (completed 2 wks taylor) - 09/04 s/p colovesicula fistula takedown, partial cystectomy - 09/11 CT a/p - anterior abdominal wall collection just under incision - 09/13 s/p IR drain placement - 09/13 cx VRE (S Lz, dapto remi 4), PSAE (S cefe remi 8), C.glabrata (R flu S taylor ) - 09/26 in colorectal clinic, feculant midline incision drainage - 09/26 CT bladder wall defect, contrast extravastation to rectal stump c/w blad edson leak probable colovesicular fistula - 09/27 s/p IR bella-vesicular abscess drain c/w old hematoma - 09/27 abscess g/s no orgs, no pmn, aerobic/anaerobic w/ VRE (S dapto REMI 2, [place] ezolid also sensitive), Pseudomonas aeruginosa (now R to cefepime, ceftaz, pip-t azo, aztreonam; S to meropenem REMI 2) - 10/02 CT abd/pelv w/ decreased size of fluid collection, some surrounding fluid around other drain fluid collection felt to be reactive by surgery ANNMARIE MANNING (09/08/20) - PICC removed, vancomycin x 7 days Recent C.diff (06/2020) HTN Hypothyroid Thrombocytosis Recommendations: 1. Continue daptomycin 8 mg/kg/qd (VRE) --> may switch to PO linezolid 600 bid on dc to SNF (if SNF unable to accept her on dapto) 2. Continue IV meropenem 2g q8h (PsA, anaerobes) 3. Continue micafungin 100 mg qd (C.glabrata flu-R) 4. Plan for additional 3 weeks of above IV abx mikayla/taylor/PO linezolid (tentative end 10/[address] results at that time) 5. Continue po vanc 125 BID (C.diff suppression) until above abx complete (throu gh 10/25 if stop 10/23) 6. Consider salomon exchange prior to discharge (due ~10/04) 7. Plan for repeat contrasted CT a/p ~3 weeks (tentatively ~10/23) 8. Weekly cbc/diff, cmp faxed to [phone]. If discharged on dapto will also need CPK. 9. Will arrange ID f/u on 10/23 10. Continue frequent flushing of HEMA drains and monitoring of output 11. Will obtain 1 set of BCx from PICC this AM w/ low grade temp overnight ID will sign off w/ patient discharging to SNF. Juany Ferguson MD Infectious Diseases Pager [phone] Please use Voalte to contact ID. Interval hx / ROS Mild fever to 100.9 last night with chills after CT, she reports not having subs equent chills or sweats. Still having abdominal pain but improved a little. Still also having some nausea . No rash, diarrhea or cough. Antimicrobial Start date End date fluconazole 07/14 09/14 flagyl 07/03-09/11; 09/13-09/20; 09/27 10/01 dapto 07/05-07/14; 09/15 - 09/24; 09/26 active micafungin 07/03-07/14; 09/14 active Po vancomycin 07/14 active ceftriaxone 07/14 09/11 cefepime 09/13 10/01 linezolid 09/24 09/26 meropenem 10/01 Estimated Creatinine Clearance: 55.2 mL/min (based on SCr of 0.87 mg/dL). Medications Scheduled Meds:buPROPion XL (WELLBUTRIN XL) tablet 150 mg, 150 mg, Oral, QDAY cetirizine (ZyrTEC) tablet 10 mg, 10 mg, Oral, QDAY DAPTOmycin (CUBICIN) injection 450 mg, 8 mg/kg (Adjusted), Intravenous, Q24H* enoxaparin (LOVENOX) syringe 40 mg, 40 mg, Subcutaneous, QDAY() gabapentin (NEURONTIN) capsule 300 mg, 300 mg, Oral, BID levothyroxine (SYNTHROID) tablet 50 mcg, 50 mcg, Oral, QDAY meropenem (MERREM) 2 g in sodium chloride 0.9% (NS) 140 mL IVPB (EXTENDED INFUSI ON), 2 g, Intravenous, Q8H* methocarbamoL (ROBAXIN) tablet 750 mg, 750 mg, Oral, BID micafungin (MYCAMINE) 100 mg in sodium chloride 0.9% (NS) 100 mL IVPB (MB+), 100 mg, Intravenous, Q24H* naphazoline 0.025 % /pheniramine 0.3 % (NAPHCON-A) ophthalmic solution 1 drop, 1 drop, Both Eyes, QID ondansetron (ZOFRAN ODT) rapid dissolve tablet 4 mg, 4 mg, Oral, Q6H oxybutynin XL (DITROPAN XL) tablet 10 mg, 10 mg, Oral, QDAY pantoprazole DR (PROTONIX) tablet 40 mg, 40 mg, Oral, BID senna/docusate (SENOKOT-S) tablet 1 tablet, 1 tablet, Oral, BID sodium chloride PF 0.9% flush 10 mL, 10 mL, Flush, FLUSH TID sodium chloride PF 0.9% syringe 10 mL, 10 mL, Intravenous, BID vancomycin (FIRVANQ) oral solution 125 mg, 125 mg, Oral, BID Continuous Infusions: Adult Cyclic Parenteral Nutrition (PN) 120 mL/hr at 10/02/20 2149 PRN and Respiratory Meds:aluminum/magnesium hydroxide QID PRN, HYDROcodone/aceta minophen Q6H PRN, hyoscyamine Q4H PRN, polyethylene glycol 3350 BID PRN, simethi cone Q6H PRN Physical Examination Vital Signs: Last Vital Signs: 24 Hour Ran ge BP: 117/60 (10/03 741) Temp: 36.9 C (98.5 F) (10/03 741) Pulse: 81 (10/03 741) Respirations: 18 PER MINUTE (10/03 741) SpO2: 94 % (10/03 741) BP: (117-132)/(53-75) Temp: [36.8 C (98.3 F)-38.3 C (100.9 F)] Pulse: [74-95] Respirations: [18 PER MINUTE] SpO2: [92 %-96 %] Gen: alert, oriented, NAD H&N: no thrush Lungs: clear ant/laterally Heart: RRR, no murmur Abd: soft, ND, lower pelvic TTP w/o guarding RLQ colostomy-liquid stools L midline incision with 1 cm round opening mid-aspect serous drainage on dressin g w/o odor, no adjacent erythema, lower incision 2-3 cm wound down to fat also s erous non-malodorous drainage on dressing, no feculant output from either incisi on/wound LLQ HEMA [id number] thin drainage in tube RLQ Jvac -dark red fluid Ext: no edema Skin: no rash Lines: RUE PICC DL (09/12) - site unremarkable Drains/tubes: Salomon (09/04) L mid-abd Jvac (09/13) LLQ HEMA (09/04) RLQ Jvac (09/27) RLQ colostomy Lab Review Hematology Recent Labs 10/01/20 0438 10/02/20 0415 10/03/20 0330 WBC 9.9 11.9* 11.0 HGB 10.6* 9.9* 9.1* HCT 33.2* 30.8* 28.7* PLTCT 512* 507* 443* Chemistry Recent Labs 10/01/20 0438 10/02/20 0415 10/03/20 0330 NA 140 139 137 K 4.2 4.4 4.1 CL 103 104 104 CO2 28 27 25 BUN 26* 28* 28* CR 0.78 0.78 0.87 GFR >60 >60 >60 GLU 94 105* 93 CA 8.8 8.9 8.7 PO4 3.9 3.8 3.4 Microbiology, Radiology and other Diagnostics Review RADIOLOGY: reviewed MICRO: reviewed * Dayanara Arrieta MD - 10/03/2020 7:15 AM CDT Images from the original note were not included. Daily Progress Note Today's Date: 10/03/2020 Name: Beverly Torres Admission Date: 09/26/2020 (LOS: 7 days) Assessment: Beverly Torres is a 70 y.o. female with large colovesical/vagi nal fistula s/p ex lap, LAR, resection of infected mesh, partial cystectomy, com plex cystorrhaphy in combination ([place] 09/04), whose post-operative course c/b a bdominal fluid collection s/p IR drain (09/13), now directly admitted from [facility] [place] due to new abdominal fluid collections on CT A/P (09/26) s/p IR jvac placement Principal Problem: Abdominal fluid collection Active Problems: Chronic anemia Plan: - Contained bladder leak: Urology recommendations noted and appreciated. No surg ical intervention at this time from their standpoint. Maintain salomon catheter an d continue Ditropan and Levsin for bladder spasms. - Regular Diet - Continue TPN for supplemental nutrition and will discharge on this - Cultures show: VRE, MDR Pseudomonas, Brenda - ID recommendations noted and appreciated: IV daptomycin, IV meropenem, IV taylor fungin, PO Vanc. Will transition from Dapto to Zyvox on DC if SNF unable to acce pt on Dapto. Plan for therapy through 10/12 with weekly CBC and repeat CT a/p at completion of therapy per ID. 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 No acute events overn ight. Pain controlled. Tolerating diet, no nausea/emesis. Ostomy productive. Objective: BP: (116-132)/(53-75) Temp: [36.8 C (98.3 F)-38.3 C (100.9 F)] Pulse: [74-97] Respirations: [18 PER MINUTE] SpO2: [92 %-97 %] Body mass index is 31.48 kg/m. Physical Exam Gen: NAD, nontoxic HEENT: NCAT, EOMI CV: Normal rate, regular rhythm Pulm: Non-labored respirations on RA Abd: Soft, ND, appropriately TTP, ostomy site intact with light brown stool pres ent. Midline inferior incision has two small openings that are draining trivedi appe aring fluid. LLQ Jvac drain in place, also draining similar appearing fluid. RLQ Jvac with old appearing blood. Dressing for midline incision changed at bedside this morning during rounds. : Salomon in place with translucent yellow urine in bag Neuro: GCS 15, MARTINEZ spontaneously Psych: Normal affect Active Wounds Wounds 09/04/20 Surgical Incision Anterior Abdomen (Active) 09/04/20 Abdomen Wound Type: Surgical Incision Pressure Injury Stages: Pressure Injury Present On Inpatient Admission: Wound/Pressure Injury Orientation: Anterior Wound Description (Comments): Wound Type:: Agree With My Assessment? Yes 10/03/20 0400 Wound Dressing Status Changed 10/02/202053 Wound Dressing and / or Treatment Gauze 10/02/202053 Wound Securement / Protective Device Hypafix tape 10/02/202053 Wound Drainage Description Serosanguineous 10/02/202053 Wound Drainage Amount Small 10/02/202053 Wound Base Assessment Moist;Red;Yellow;Labelle 10/02/202053 Surrounding Skin Assessment Labelle;Intact;Dry 10/02/202053 Wound Site Closure Wound Adhesive Bandage 10/02/202053 Number of days: 29 Wounds 09/12/20 0908 Pressure Injury Coccyx (Active) 09/12/20 0908 Coccyx Wound Type: Pressure Injury Pressure Injury Stages: Stage 3 Pressure Injury Present On Inpatient Admission: N Wound/Pressure Injury Orientation: Wound Description (Comments): Wound Type:: Wound Image 09/27/20 1400 Agree With My Assessment? Yes 10/03/20399 Wound Dressing Status Open to air 10/02/202053 Wound Dressing and / or Treatment A & D Ointment 10/02/202053 Wound Drainage Amount None 10/02/202053 Wound Base Assessment Clean;Intact 10/02/202053 Surrounding Skin Assessment Macerated 10/02/202053 Wound Site Closure Open to Air 10/02/202053 Wound Status (Wound Team Only) Being Treated 09/27/20 1400 Number of days: 21 Wounds 09/12/20 0908 Pressure Injury Left Buttocks (Active) 09/12/20 0908 Buttocks Wound Type: Pressure Injury Pressure Injury Stages: Deep Tissue Pressure Injury Pressure Injury Present On Inpatient Admission: N Wound/Pressure Injury Orientation: Left Wound Description (Comments): Wound Type:: Agree With My Assessment? Yes 10/03/20 0400 Wound Dressing Status Open to air 10/02/202053 Wound Dressing and / or Treatment A & D Ointment 10/02/202053 Wound Drainage Amount None 10/02/202053 Wound Base Assessment Dry;Labelle;Clean 10/02/202053 Surrounding Skin Assessment Dry;Intact;Labelle 10/02/202053 Wound Site Closure Open to Air 10/02/202053 Wound Status (Wound Team Only) Being Treated 09/27/20 1400 Number of days: 21 Dayanara Arrieta MD Please page [phone] M-F 6am-6pm, otherwise page [phone] * Naomie Nolan, LATISHA - 10/02/2020 1:12 PM CDT Nutrition Support Service (NSS) Brief Note Pertinent Labs: 10/02/2020 Sodium 139 Potassium 4.4 Chloride 104 CO2 27 Anion Gap 8 BUN 28 (H) Creatinine 0.78 Glucose 105 (H) Calcium 8.9 Magnesium 2.2 Phosphorus 3.8 Height (cm): Height: 152.4 cm (60")(re-entered for BMI calculation) Admit Weight (kg): Weight: 73.1 kg (161 lb 3.2 oz)(re-entered for BMI calculatio n) Current Weight (kg): Weight: 73.1 kg (161 lb 3.2 oz)(re-entered for BMI calculat ion) [place] Body Weight (kg): 58 kg, BMI 24.9 BMI (kg/m2): Body mass index is 31.48 kg/m. Estimated Kcal Needs: 0366-1022 (25-28 kcal/kg desired weight of 58 kg) Estimated Protein Needs: 80-90 (1.5 g/kg desired weight of 58 kg) Cycled regimen to 16 hours, maintaining 1800mL total volume. Optimized K/Mg with levels nearing upper-end of normal. Adjusted chloride to acetate ratio based on AM labs. Patient agreeable to plan to cycle further. Currently, discharge plann ed for tomorrow. PN Orders (to start at 20:30): provides 1420 kcal Volume: 1800ml (60-120mL/hr, 16-hour cycle) Macronutrients: 85g amino acids (goal), 200g dextrose (goal), 200ml lipid (goal) Lytes/Additives: 185mEq Na (3/4 NS equivalent), 65mEq K+, 10mEq calcium, 14mEq m agnesium, 15mmol Phos, 10ml MVI, 1ml trace elements, 300mg vitamin C, Cl:Acetate 1:1 Plan / Recommendations: Continue TPN while GI function is impaired; limit PO to small, easy to digest portions to help with healing and maintenance of gut integrity. Outside electrolyte and fluid replacement per primary team; NSS to make bauer es to TPN routinely -, weekends per on-call. Naomie Nolan RD, LD, [facility] Office: [phone] [place], [employer] * Madina Simms, PT - 10/02/2020 11:55 AM CDT PHYSICAL THERAPY PROGRESS NOTE Name: Beverly Torres : 1950 Age: 70 y.o. Admission Date: 09/26/2020 LOS: 6 days Mobility Patient Turn/Position: Chair Progressive Mobility Level: Walk in hallway Distance Walked (feet): 100 ft Level of Assistance: Assist X1 Assistive Device: Walker Time Tolerated: 11-30 minutes Activity Limited By: Fatigue Subjective Significant hospital events: Hx of large colovesical/vaginal fistula s/p ex lap, LAR, resection of infected mesh, partial cystectomy, complex cystorrhaphy in co mbination ([place] 09/04), post-operative course complicated by abdominal fluid col lection s/p IR drain 09/13. Admit from clinic due to new abdominal fluid collect ion on CT. IR to drain abscess and drain placement 09/27. Mental / Cognitive Status: Alert;Oriented;Cooperative Persons Present: Nursing Staff Pain: Patient has no complaint of pain Pain Interventions: Patient agrees to participate in therapy Comments: jvac x2, salomon catheter Ambulation Assist: Independent Mobility in Community without Device Patient Owned Equipment: Roller Walker Home Situation: Lives with Family(maria de jesus, who is currently hospitalized for COVI D) Type of Home: House Entry Stairs: No Stairs In-Home Stairs: No Stairs Comments: Patient admitted from [facility] facility. Bed Mobility/Transfer Bed Mobility: Supine to Sit: Standby Assist;Head of Bed Elevated Transfer Type: Sit to Stand Transfer: Assistance Level: From;Bed;Standby Assist Transfer: Assistive Device: Roller Walker Transfers: Type Of Assistance: For Balance;For Safety Considerations Other Transfer Type: Stand to Sit Other Transfer: Assistance Level: To;Bed Side Chair;Standby Assist Other Transfer: Assistive Device: Roller Walker Other Transfer: Type Of Assistance: For Balance;For Safety Considerations End Of Activity Status: Up in Chair;Nursing Notified;Instructed Patient to Reque st Assist with Mobility;Instructed Patient to Use Call Light(bed alarm activated , call light in reach) Gait Gait Distance: 100 feet Gait: Assistance Level: Standby Assist Gait: Assistive Device: Roller Walker Gait: Descriptors: Pace: Slow;Swing-Through Gait;Normal step length Activity Limited By: Complaint of Fatigue;Patient Choice Assessment/Progress Impaired Mobility Due To: Pain;Decreased Activity Tolerance;Medical Status Limit ation Assessment/Progress: Should Improve w/ Continued PT AM-PAC 6 Clicks Basic Mobility Inpatient Turning from your back to your side while in a flat bed without using bed rails: None Moving from lying on your back to sitting on the side of a flatbed without using bedrails : None Moving to and from a bed to a chair (including a wheelchair): None Standing up from a chair using your arms (e.g. wheelchair, or bedside chair): No ne To walk in hospital room: A Little Climbing 3-5 steps with a railing: A Little Raw Score: 22 Standardized (T-scale) Score: 47.4 Basic Mobility CMS 0-100%: 25.02 CMS G Code Modifier for Basic Mobility: CJ Goals Goal Formulation: With Patient Time For Goal Achievement: 5 days, To, 7 days Patient Will Go Supine To/From Sit: Independently, Ongoing Patient Will Transfer Sit to Stand: Independently, Ongoing Patient Will Ambulate: Greater than 200 Feet, w/ Walker, Independently, Ongoing Plan Treatment Interventions: Mobility Training;Strengthening;Balance Activities;Endu corine Training Plan Frequency: 1-2 Days per Week PT Plan for Next Visit: Progress gait, BLE strengthening. PT Discharge Recommendations Recommendation: Inpatient setting Therapist: [place] [id number] Date: 10/02/2020 * Juany Ferguson MD - 10/02/2020 8:01 AM CDT Infectious Diseases Progress Note Today's Date: 10/02/2020 Admission Date: 09/26/2020 Reason for consultation: anastamotic leak Type: Co-Management w/Signed Orders Assessment: Colovesicular fistula s/p takedown partial cystectomy (09/04) Subincisional abdominal abscess (VRE, C.glabrata, PSAE) s/p PTC drain (09/13) Cystectomy leak possible redeveloping fistula, abscess/hematoma (09/26) s/p PTC d rain (09/27) - 2011 diverticulitis c/b rectovaginal fistula - 12/2011 s/p sigmoidectomy, vaginal cuff repair ([facility], Dr. 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 Leal + Dr. Vargas) - 07/2013 s/p ventral hernia repair with panniculectomy - 09/2013 recurrentrectovaginalfistula, s/pdiverting transverse colostomy - 08/2014 s/p colostomy takedown --> c/banastomotic breakdown - 2015 s/p lapredoofcolorectal anastomosis - 2015 onwards --> persistentcolovesicular fistula, chronicfecaluria, dysuria - 06/28/20 admit [facility] septic shock, pyelo - 06/28 CT a/p - L 5-cm extrarenal pelvic abscess, air in ureter, dilated R urete r, colovesicular fistula - 06/29 s/p R PCN urine cx VRE, B.thetaiotaomicron/other anaerobes, C.glabrata - 07/10 nephrostomy <100k C.parapsilosis (S fluc) - 07/10 urine cx >100k C.parapsilosis - 07/20-09/04 on ceftriaxone/flagyl/fluc (completed 2 wks taylor) - 09/04 s/p colovesicula fistula takedown, partial cystectomy - 09/11 CT a/p - anterior abdominal wall collection just under incision - 09/13 s/p IR drain placement - 09/13 cx VRE (S Lz, dapto remi 4), PSAE (S cefe remi 8), C.glabrata (R flu S taylor ) - 09/26 in colorectal clinic, feculant midline incision drainage - 09/26 CT bladder wall defect, contrast extravastation to rectal stump c/w blad edson leak probable colovesicular fistula - 09/27 s/p IR bella-vesicular abscess drain c/w old hematoma - 09/27 abscess g/s no orgs, no pmn, aerobic/anaerobic w/ VRE (S dapto REMI 2, [place] ezolid also sensitive), Pseudomonas aeruginosa (now R to cefepime, ceftaz, pip-t azo, aztreonam; S to meropenem REMI 2) MRSE CLABSI (09/08/20) - PICC removed, vancomycin x 7 days Recent C.diff (06/2020) HTN Hypothyroid Thrombocytosis Recommendations: 1. Continue daptomycin 8 mg/kg/qd (VRE) --> may switch to PO linezolid 600 bid on dc to SNF (if SNF unable to accept her on dapto) 2. Continue IV meropenem 2g q8h (PsA, anaerobes) 3. Continue micafungin 100 mg qd (C.glabrata flu-R) 4. Plan additional 2 weeks above IV abx mikayla/taylor/PO linezolid (tentative end depending on CT results) 5. Continue po vanc 125 BID (C.diff suppression) until above abx complete (perha ps 10/14 if stop 10/12 abx) 6. Consider salomon exchange prior to discharge (due ~10/04) 7. Plan for repeat contrasted CT a/p ~2 weeks (tentatively ~10/12) 8. Weekly cbc/diff, cmp faxed to [phone] 9. Will arrange ID f/u after discharge 10. Continue frequent flushing of HEMA drains and monitoring of output 11. If WBC continues to rise tomorrow, would consider repeat CT ID will continue to follow. Juany Ferguson MD Infectious Diseases Pager [phone] Please use Voalte to contact ID. Interval hx / ROS Afebrile since admit, hemodynamically stable on room air She continues to have some lower abdominal pain which started again yesterday, a s well as some nausea. She's also having some drainage from around the midline Jvac insertion site. No problems with PICC or rash. No vomiting or diarrhea, no cough. Antimicrobial Start date End date fluconazole 07/14 09/14 flagyl 07/03-09/11; 09/13-09/20; 09/27 10/01 dapto 07/05-07/14; 09/15 - 09/24; 09/26 active micafungin 07/03-07/14; 09/14 active Po vancomycin 07/14 active ceftriaxone 07/14 09/11 cefepime 09/13 10/01 linezolid 09/24 09/26 meropenem 10/01 Estimated Creatinine Clearance: 61.6 mL/min (based on SCr of 0.78 mg/dL). Medications Scheduled Meds:buPROPion XL (WELLBUTRIN XL) tablet 150 mg, 150 mg, Oral, QDAY cetirizine (ZyrTEC) tablet 10 mg, 10 mg, Oral, QDAY DAPTOmycin (CUBICIN) injection 450 mg, 8 mg/kg (Adjusted), Intravenous, Q24H* enoxaparin (LOVENOX) syringe 40 mg, 40 mg, Subcutaneous, QDAY() gabapentin (NEURONTIN) capsule 300 mg, 300 mg, Oral, BID levothyroxine (SYNTHROID) tablet 50 mcg, 50 mcg, Oral, QDAY meropenem (MERREM) 2 g in sodium chloride 0.9% (NS) 140 mL IVPB (EXTENDED INFUSI ON), 2 g, Intravenous, Q8H* methocarbamoL (ROBAXIN) tablet 750 mg, 750 mg, Oral, BID micafungin (MYCAMINE) 100 mg in sodium chloride 0.9% (NS) 100 mL IVPB (MB+), 100 mg, Intravenous, Q24H* naphazoline 0.025 % /pheniramine 0.3 % (NAPHCON-A) ophthalmic solution 1 drop, 1 drop, Both Eyes, QID ondansetron (ZOFRAN ODT) rapid dissolve tablet 4 mg, 4 mg, Oral, Q6H oxybutynin XL (DITROPAN XL) tablet 10 mg, 10 mg, Oral, QDAY pantoprazole DR (PROTONIX) tablet 40 mg, 40 mg, Oral, BID senna/docusate (SENOKOT-S) tablet 1 tablet, 1 tablet, Oral, BID sodium chloride PF 0.9% flush 10 mL, 10 mL, Flush, FLUSH TID sodium chloride PF 0.9% syringe 10 mL, 10 mL, Intravenous, BID vancomycin (FIRVANQ) oral solution 125 mg, 125 mg, Oral, BID Continuous Infusions: Adult Cyclic Parenteral Nutrition (PN) 95 mL/hr at 10/01/20 2156 PRN and Respiratory Meds:aluminum/magnesium hydroxide QID PRN, HYDROcodone/aceta minophen Q6H PRN, hyoscyamine Q4H PRN, polyethylene glycol 3350 BID PRN, simethi cone Q6H PRN Physical Examination Vital Signs: Last Vital Signs: 24 Hour Ran ge BP: 115/72 (10/02 320) Temp: 36.8 C (98.3 F) (10/02 320) Pulse: 82 (10/02 320) Respirations: 16 PER MINUTE (10/02 320) SpO2: 94 % (10/02 320) BP: (115-135)/(58-72) Temp: [36.4 C (97.5 F)-36.8 C (98.3 F)] Pulse: [69-94] Respirations: [16 PER MINUTE] SpO2: [94 %-96 %] Gen: alert, oriented, NAD H&N: no thrush Lungs: clear ant/laterally Heart: RRR, no murmur Abd: soft, ND, lower pelvic TTP w/o guarding RLQ colostomy-liquid stools L midline incision with 1 cm round opening mid-aspect serous drainage on dressin g w/o odor, no adjacent erythema, lower incision 2-3 cm wound down to fat also s erous non-malodorous drainage on dressing, no feculant output from either incisi on/wound LLQ HEMA [id number] thin drainage in tube RLQ Jvac -dark red fluid Ext: no edema Skin: no rash Lines: RUE PICC DL (09/12) - site unremarkable Drains/tubes: Salomon (09/04) L mid-abd Jvac (09/13) LLQ HEMA (09/04) RLQ Jvac (09/27) RLQ colostomy Lab Review Hematology Recent Labs 09/30/20 0419 10/01/20 0438 10/02/20 0415 WBC 10.0 9.9 11.9* HGB 10.2* 10.6* 9.9* HCT 31.8* 33.2* 30.8* PLTCT 513* 512* 507* Chemistry Recent Labs 09/30/20 0419 10/01/20 0438 10/02/20 0415 NA 138 140 139 K 4.3 4.2 4.4 CL 103 103 104 CO2 26 28 27 BUN 26* 26* 28* CR 0.78 0.78 0.78 GFR >60 >60 >60 GLU 96 94 105* CA 9.2 8.8 8.9 PO4 3.4 3.9 3.8 Microbiology, Radiology and other Diagnostics Review RADIOLOGY: reviewed MICRO: reviewed * Dayanara Arrieta MD - 10/02/2020 5:21 AM CDT Images from the original note were not included. Daily Progress Note Today's Date: 10/02/2020 Name: Beverly Torres Admission Date: 09/26/2020 (LOS: 6 days) Assessment: Beverly Torres is a 70 y.o. female with large colovesical/vagi nal fistula s/p ex lap, LAR, resection of infected mesh, partial cystectomy, com plex cystorrhaphy in combination ([place] 09/04), whose post-operative course c/b a bdominal fluid collection s/p IR drain (09/13), now directly admitted from clini c due to new abdominal fluid collections on CT A/P (09/26) s/p IR jvac placement Principal Problem: Abdominal fluid collection Active Problems: Chronic anemia Plan: - Contained bladder leak: Urology recommendations noted and appreciated. No surg ical intervention at this time from their standpoint. Maintain salomon catheter an d continue Ditropan and Levsin for bladder spasms. - Regular Diet - Continue TPN for supplemental nutrition and will discharge on this - Cultures show: VRE, MDR Pseudomonas, Brenda - ID recommendations noted and appreciated: IV daptomycin, IV meropenem, IV taylor fungin, PO Vanc. Will transition from Dapto to Zyvox on DC if SNF unable to acce pt on Dapto. Plan for therapy through 10/12 with weekly CBC and repeat CT a/p at completion of therapy per ID. - COVID test ordered for facility placement, resulted negative - Pain Regimen: Endeavor Q6HR PRN, Gabapentin, robaxin - Continue [employer] wellbutrin, synthroid - PT/OT - PPx: SCD's and Lovenox - Dispo: Discharge to facility pending acceptance Subjective: No acute events overnight. Pain controlled. Tolerating limited RD, no nausea/abimael sis. Ostomy productive. Objective: BP: (115-141)/(58-74) Temp: [36.4 C (97.5 F)-36.9 C (98.5 F)] Pulse: [69-94] Respirations: [16 PER MINUTE] SpO2: [94 %-96 %] Body mass index is 31.48 kg/m. Physical Exam Gen: NAD, nontoxic HEENT: NCAT, EOMI CV: Normal rate, regular rhythm Pulm: Non-labored respirations on RA Abd: Soft, ND, appropriately TTP, ostomy site intact with light brown stool pres ent. Midline inferior incision has two small openings that are draining trivedi appe aring fluid. LLQ Jvac drain in place, also draining similar appearing fluid. RLQ Jvac with old appearing blood. Dressing for midline incision changed at bedside this morning during rounds. : Salomon in place with translucent yellow urine in bag Neuro: GCS 15, MARTINEZ spontaneously Psych: Normal affect Active Wounds Wounds 09/04/20 Surgical Incision Anterior Abdomen (Active) 09/04/20 Abdomen Wound Type: Surgical Incision Pressure Injury Stages: Pressure Injury Present On Inpatient Admission: Wound/Pressure Injury Orientation: Anterior Wound Description (Comments): Wound Type:: Agree With My Assessment? Yes 09/30/20411 Wound Dressing Status Changed 10/01/202057 Wound Dressing and / or Treatment Gauze;Abdominal pad 10/01/202057 Wound Securement / Protective Device Hypafix tape 10/01/202057 Wound Drainage Description Serosanguineous 10/01/202057 Wound Drainage Amount Scant 10/01/202057 Wound Base Assessment Clean;Dry;Intact 10/01/202057 Surrounding Skin Assessment Dry;Intact 10/01/202057 Wound Site Closure Wound Adhesive Bandage 10/01/202057 Number of days: 28 Wounds 09/12/20 0908 Pressure Injury Coccyx (Active) 09/12/20 09 Coccyx Wound Type: Pressure Injury Pressure Injury Stages: Stage 3 Pressure Injury Present On Inpatient Admission: N Wound/Pressure Injury Orientation: Wound Description (Comments): Wound Type:: Wound Image 09/27/20 1400 Agree With My Assessment? Yes 09/30/20411 Wound Dressing Status Open to air 10/01/202057 Wound Dressing and / or Treatment A & D Ointment 10/01/202057 Wound Drainage Amount None 09/29/202008 Wound Base Assessment Clean;Intact 10/01/202057 Surrounding Skin Assessment Dry;Macerated 10/01/202057 Wound Site Closure Open to Air 10/01/202057 Wound Status (Wound Team Only) Being Treated 09/27/20 1400 Number of days: 20 Wounds 09/12/20907 Pressure Injury Left Buttocks (Active) 09/12/20907 Buttocks Wound Type: Pressure Injury Pressure Injury Stages: Deep Tissue Pressure Injury Pressure Injury Present On Inpatient Admission: N Wound/Pressure Injury Orientation: Left Wound Description (Comments): Wound Type:: Agree With My Assessment? Yes 09/30/20411 Wound Dressing Status Open to air 10/01/202057 Wound Dressing and / or Treatment A & D Ointment 10/01/202057 Wound Drainage Amount None 10/01/202057 Wound Base Assessment Clean;Dry;Labelle 10/01/202057 Surrounding Skin Assessment Dry;Intact 10/01/202057 Wound Site Closure Open to Air 10/01/202057 Wound Status (Wound Team Only) Being Treated 09/27/20 1400 Number of days: 20 Dayanara Arrieta MD Please page [phone] M-F 6am-6pm, otherwise page [phone] Associated attestation - Bran Martell DO - 10/03/2020 6:54 AM CDT ATTESTATION I personally performed the jurado portions of the E/M visit, discussed case with re sident and concur with resident documentation of history, physical exam, assessm ent, and treatment plan unless otherwise noted. Staff name: Bran Martell DO Date: 10/03/2020 Awaiting ID recs Emily diet Ambulating some * Gerson Duncan MD - 10/01/2020 9:51 AM CDT Images from the original note were not included. Daily Progress Note Today's Date: 10/01/2020 Name: Beverly Torres Admission Date: 09/26/2020 (LOS: 5 days) Assessment: Beverly Torres is a 70 y.o. female with large colovesical/vagi nal fistula s/p ex lap, LAR, resection of infected mesh, partial cystectomy, com plex cystorrhaphy in combination ([facility] 09/04), whose post-operative course c/b a bdominal fluid collection s/p IR drain (09/13), now directly admitted from clin c due to new abdominal fluid collections on CT A/P (09/26). Principal Problem: Abdominal fluid collection Active Problems: Chronic anemia Plan: - CT A/P (09/26): >CT cystogram with posterior superior bladder wall defect and contained perivesicular contrast extravasation which extends to the rectal st ump suture line and adjacent to opacified, tethered small bowel. Additi onal contrast opacification of the vagina compatible with complex fistul ous connection between these structures. >Extravasation of oral contrast into an anterior abdominal extraperitoneal fluid collection with percutaneous drain in place a t this - Urology recommendations noted and appreciated. No surgical intervention at thi s time from their standpoint. Maintain salomon catheter and continue Ditropan and Levsin for bladder spasms. - Regular Diet - Continue TPN for supplemental nutrition - F/u on fluid cultures - ABX: ID recommendations noted and appreciated: PO daptomycin, PO flagyl, cefep wenceslao, micafungin, PO Vanc. Will transition from Dapto to Zyvox on DC if SNF unabl e to accept on Dapto. Plan for therapy through 10/[address] a/p at completion of therapy per ID. - COVID test ordered for facility placement - Pain Regimen: Endeavor Q6HR PRN, Gabapentin - PT/OT - PPx: SCD's and Lovenox - Dispo: Discharge to facility pending acceptance, COVID test ordered, possible discharge today if facility able to accept, medically ready for discharge today Subjective: No acute events overnight. Pain controlled. Tolerating limited RD, no nausea/abimael sis. Ostomy productive. Objective: BP: (119-141)/(63-79) Temp: [36.8 C (98.2 F)-37.3 C (99.1 F)] Pulse: [70-79] Respirations: [16 PER MINUTE] SpO2: [94 %-97 %] Body mass index is 31.48 kg/m. Lab Results Component Value Date/Time NA 140 10/01/2020 04:38 AM K 4.2 10/01/2020 04:38 AM CL 103 10/01/2020 04:38 AM CO2 28 10/01/2020 04:38 AM BUN 26 (H) 10/01/2020 04:38 AM CR 0.78 10/01/2020 04:38 AM MG 2.2 10/01/2020 04:38 AM PO4 3.9 10/01/2020 04:38 AM Lab Results Component Value Date/Time HGB 10.6 (L) 10/01/2020 04:38 AM HCT 33.2 (L) 10/01/2020 04:38 AM WBC 9.9 10/01/2020 04:38 AM PLTCT 512 (H) 10/01/2020 04:38 AM INR 1.2 09/26/2020 06:58 PM Lab Results Component Value Date/Time GLUPOC 115 (H) 10/01/2020 07:24 AM GLUPOC 123 (H) 10/01/2020 04:42 AM GLUPOC 113 (H) 09/30/2020 11:07 PM Physical Exam Gen: NAD, nontoxic HEENT: NCAT, EOMI CV: Normal rate 70's, regular rhythm Pulm: Non-labored respirations on RA Abd: Soft, ND, appropriately TTP, ostomy site intact with light brown stool pres ent. Midline inferior incision has two small openings that are draining trivedi appe aring fluid. LLQ Jvac drain in place, also draining similar appearing fluid. RLQ Jvac with old appearing blood. Dressing for midline incision changed at bedside this morning during rounds. : Salomon in place with translucent yellow urine in bag Neuro: GCS 15, MARTINEZ spontaneously Psych: Normal affect Active Wounds Wounds 09/04/20 Surgical Incision Anterior Abdomen (Active) 09/04/20 Abdomen Wound Type: Surgical Incision Pressure Injury Stages: Pressure Injury Present On Inpatient Admission: Wound/Pressure Injury Orientation: Anterior Wound Description (Comments): Wound Type:: Agree With My Assessment? Yes 09/30/20411 Wound Dressing Status Changed 09/30/202027 Wound Dressing and / or Treatment Gauze;Abdominal pad 09/30/202027 Wound Securement / Protective Device Hypafix tape 09/30/202027 Wound Drainage Description Serosanguineous 09/30/202027 Wound Drainage Amount Scant 09/30/202027 Wound Base Assessment Clean;Labelle 09/30/202027 Surrounding Skin Assessment Dry;Intact 09/30/202027 Wound Site Closure Wound Adhesive Bandage 09/30/202027 Number of days: 27 Wounds 09/12/20 0908 Pressure Injury Coccyx (Active) 09/12/20 0908 Coccyx Wound Type: Pressure Injury Pressure Injury Stages: Stage 3 Pressure Injury Present On Inpatient Admission: N Wound/Pressure Injury Orientation: Wound Description (Comments): Wound Type:: Wound Image 09/27/20 1400 Agree With My Assessment? Yes 09/30/20411 Wound Dressing Status Open to air 09/30/202027 Wound Dressing and / or Treatment A & D Ointment 09/30/202027 Wound Drainage Amount None 09/29/202008 Wound Base Assessment Clean;Moist;Labelle 09/30/202027 Surrounding Skin Assessment Dry;Intact 09/30/202027 Wound Site Closure Open to Air 09/30/202027 Wound Status (Wound Team Only) Being Treated 09/27/20 1400 Number of days: 19 Wounds 09/12/20 0908 Pressure Injury Left Buttocks (Active) 09/12/20 0908 Buttocks Wound Type: Pressure Injury Pressure Injury Stages: Deep Tissue Pressure Injury Pressure Injury Present On Inpatient Admission: N Wound/Pressure Injury Orientation: Left Wound Description (Comments): Wound Type:: Agree With My Assessment? Yes 09/30/20411 Wound Dressing Status Open to air 09/30/202027 Wound Dressing and / or Treatment A & D Ointment 09/30/202027 Wound Drainage Amount None 09/30/202027 Wound Base Assessment Clean;Dry;Labelle 09/30/202027 Surrounding Skin Assessment Dry;Intact;Labelle 09/30/202027 Wound Site Closure Open to Air 09/30/202027 Wound Status (Wound Team Only) Being Treated 09/27/20 1400 Number of days: 19 Gerson Duncan MD Service Pager: # [phone] Associated attestation - Anurag Chow MD - 10/01/2020 10:42 AM CDT ATTESTATION I personally performed the jurado portions of the E/M visit, discussed case with re sident and concur with resident documentation of history, physical exam, assessm ent, and treatment plan unless otherwise noted. Staff name: Anurag Chow MD Date: 10/01/2020 * Juany Ferguson MD - 10/01/2020 7:18 AM CDT Infectious Diseases Progress Note Today's Date: 10/01/2020 Admission Date: 09/26/2020 Reason for consultation: anastamotic leak Type: Co-Management w/Signed Orders Assessment: Colovesicular fistula s/p takedown partial cystectomy (09/04) Subincisional abdominal abscess (VRE, C.glabrata, PSAE) s/p PTC drain (09/13) Cystectomy leak possible redeveloping fistula, abscess/hematoma (09/26) s/p PTC d rain (09/27) - 2011 diverticulitis c/b rectovaginal fistula - 12/2011 s/p sigmoidectomy, vaginal cuff repair ([facility], Dr. 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 Leal + Dr. Vargas) - 07/2013 s/p ventral hernia repair with panniculectomy - 09/2013 recurrentrectovaginalfistula, s/pdiverting transverse colostomy - 08/2014 s/p colostomy takedown --> c/banastomotic breakdown - 2015 s/p lapredoofcolorectal anastomosis - 2015 onwards --> persistentcolovesicular fistula, chronicfecaluria, dysuria - 06/28/20 admit [facility] septic shock, pyelo - 06/28 CT a/p - L 5-cm extrarenal pelvic abscess, air in ureter, dilated R urete r, colovesicular fistula - 06/29 s/p R PCN urine cx VRE, B.thetaiotaomicron/other anaerobes, C.glabrata - 07/10 nephrostomy <100k C.parapsilosis (S fluc) - 07/10 urine cx >100k C.parapsilosis - 07/20-09/04 on ceftriaxone/flagyl/fluc (completed 2 wks taylor) - 09/04 s/p colovesicula fistula takedown, partial cystectomy - 09/11 CT a/p - anterior abdominal wall collection just under incision - 09/13 s/p IR drain placement - 09/13 cx VRE (S Lz, dapto remi 4), PSAE (S cefe remi 8), C.glabrata (R flu S taylor ) - 09/26 in colorectal clinic, feculant midline incision drainage - 09/26 CT bladder wall defect, contrast extravastation to rectal stump c/w blad edson leak probable colovesicular fistula - 09/27 s/p IR bella-vesicular abscess drain c/w old hematoma - 09/27 abscess g/s no orgs, no pmn, aerobic/anaerobic w/ VRE (S dapto REMI 2, [place] ezolid also sensitive), Pseudomonas aeruginosa (now R to cefepime, ceftaz, pip-t azo, aztreonam; S to meropenem REMI 2) MRSE CLABSI (09/08/20) - PICC removed, vancomycin x 7 days Recent C.diff (06/2020) HTN Hypothyroid Thrombocytosis Recommendations: 1. Continue daptomycin 8 mg/kg/qd (VRE) --> may switch to PO linezolid 600 bid on dc to SNF (if SNF unable to accept her on dapto) 2. Stop metronidazole and cefepime 3. Start IV meropenem 2g q8h (PsA, anaerobes) 4. Continue micafungin 100 mg qd (C.glabrata flu-R) 5. Plan additional 2 weeks above IV abx mikayla/taylor/PO linezolid (tentative end depending on CT results) 6. Continue po vanc 125 bid (C.diff suppression) cont until above abx complete ( perhaps 10/14 if stop 10/12 abx) 7. Consider salomon exchange prior to discharge (due ~10/04) 8. Plan for repeat contrasted CT a/p ~2 weeks (tentatively ~10/12) 9. Following 09/27 repeat hematoma/abscess cultures (NGTD) 10. Weekly cbc, cmp faxed to [phone] 11. Will arrange ID f/u after discharge 12. Continue frequent flushing of HEMA drains and monitoring of output ID will continue to follow if she remains inpatient. Juany Ferguson MD Infectious Diseases Pager [phone] Please use Voalte to contact ID. Interval hx / ROS Afebrile since admit, hemodynamically stable on room air She reports some increased lower abdominal pain overnight and today like a band across her lower abdomen. Also some higher up midline pain. She reports her pain had completely resolved after most recent drain placed by IR but seems to have increased again. She remains pretty nauseated but denies vomiting. No diarrhea. She also endorses some bladder spasms at time when urinating through Salomon. No chills or sweats. She is concerned about the minimal drain output in past couple days. 75cc documented from older drain today, none from newer drain documented today, only 40cc yesterday. Antimicrobial Start date End date fluconazole 07/14 09/14 flagyl 07/03-09/11; 09/13-09/20; 09/27 10/01 dapto 07/05-07/14; 09/15 - 09/24; 09/26 active micafungin 07/03-07/14; 09/14 active Po vancomycin 07/14 active ceftriaxone 07/14 09/11 cefepime 09/13 10/01 linezolid 09/24 09/26 meropenem 10/01 Estimated Creatinine Clearance: 61.6 mL/min (based on SCr of 0.78 mg/dL). Medications Scheduled Meds:buPROPion XL (WELLBUTRIN XL) tablet 150 mg, 150 mg, Oral, QDAY cetirizine (ZyrTEC) tablet 10 mg, 10 mg, Oral, QDAY DAPTOmycin (CUBICIN) injection 450 mg, 8 mg/kg (Adjusted), Intravenous, Q24H* enoxaparin (LOVENOX) syringe 40 mg, 40 mg, Subcutaneous, QDAY() gabapentin (NEURONTIN) capsule 300 mg, 300 mg, Oral, BID levothyroxine (SYNTHROID) tablet 50 mcg, 50 mcg, Oral, QDAY meropenem (MERREM) 2 g in sodium chloride 0.9% (NS) 140 mL IVPB, 2 g, Intravenou s, ONCE Followed by meropenem (MERREM) 2 g in sodium chloride 0.9% (NS) 140 mL IVPB (EXTENDED INFUSI ON), 2 g, Intravenous, Q8H* methocarbamoL (ROBAXIN) tablet 750 mg, 750 mg, Oral, BID micafungin (MYCAMINE) 100 mg in sodium chloride 0.9% (NS) 100 mL IVPB (MB+), 100 mg, Intravenous, Q24H* naphazoline 0.025 % /pheniramine 0.3 % (NAPHCON-A) ophthalmic solution 1 drop, 1 drop, Both Eyes, QID ondansetron (ZOFRAN ODT) rapid dissolve tablet 4 mg, 4 mg, Oral, Q6H oxybutynin XL (DITROPAN XL) tablet 10 mg, 10 mg, Oral, QDAY pantoprazole DR (PROTONIX) tablet 40 mg, 40 mg, Oral, BID senna/docusate (SENOKOT-S) tablet 1 tablet, 1 tablet, Oral, BID sodium chloride PF 0.9% flush 10 mL, 10 mL, Flush, FLUSH TID sodium chloride PF 0.9% syringe 10 mL, 10 mL, Intravenous, BID vancomycin (FIRVANQ) oral solution 125 mg, 125 mg, Oral, BID Continuous Infusions: Adult Cyclic Parenteral Nutrition (PN) 95 mL/hr at 09/30/20 2146 PRN and Respiratory Meds:aluminum/magnesium hydroxide QID PRN, HYDROcodone/aceta minophen Q6H PRN, hyoscyamine Q4H PRN, polyethylene glycol 3350 BID PRN, simethi cone Q6H PRN Physical Examination Vital Signs: Last Vital Signs: 24 Hour Ran ge BP: 137/79 (10/01 452) Temp: 36.9 C (98.4 F) (10/01 452) Pulse: 70 (10/01 452) Respirations: 16 PER MINUTE (10/01 452) SpO2: 97 % (10/01 452) BP: (119-141)/(63-79) Temp: [36.7 C (98 F)-37.3 C (99.1 F)] Pulse: [70-79] Respirations: [16 PER MINUTE] SpO2: [93 %-97 %] Gen: alert, oriented, NAD H&N: no thrush Lungs: clear ant/laterally Heart: RRR, no murmur Abd: soft, ND, lower pelvic TTP w/o guarding RLQ colostomy-liquid stools L midline incision with 1 cm round opening mid-aspect serous drainage on dressin g w/o odor, no adjacent erythema, lower incision 2-3 cm wound down to fat also s erous non-malodorous drainage on dressing, no feculant output from either incisi on/wound LLQ HEMA [id number] thin drainage in tube RLQ Jvac -dark red fluid Ext: no edema Skin: no rash Lines: RUE PICC DL (09/12) - site unremarkable Drains/tubes: Salomon (09/04) L mid-abd Jvac (09/13) LLQ HEMA (09/04) RLQ Jvac (09/27) RLQ colostomy Lab Review Hematology Recent Labs 09/29/2040409/30/2041810/01/20 0438 WBC 10.6 10.0 9.9 HGB 9.3* 10.2* 10.6* HCT 28.3* 31.8* 33.2* PLTCT 589* 513* 512* Chemistry Recent Labs 09/29/2040409/30/2041810/01/20 043 NA 139 138 140 K 4.4 4.3 4.2 CL 104 103 103 CO2 27 26 28 BUN 23 26* 26* CR 0.85 0.78 0.78 GFR >60 >60 >60 GLU 93 96 94 CA 8.9 9.2 8.8 PO4 3.2 3.4 3.9 Microbiology, Radiology and other Diagnostics Review RADIOLOGY: reviewed MICRO: reviewed * Betsy Morris - 09/30/2020 12:41 PM CDT Again attempted a spiritual care visit. Ms. Torres was being seen by the Infectio us Disease Physician at the time. I was waiting outside when I was paged to anot her unit. This remains an open consult. The spiritual care team is available as needed, 07/10, through the [facility] ([phone]). For a response within 24 hours, please submit an order in O2 fo r a relay shop supervisor consult.. * Juany Ferguson MD - 09/30/2020 12:25 PM CDT Brief ID progress note: Patient's chart reviewed. Afebrile, hemodynamically stable. Labs stable w/ WBC slightly improved to 10.0k. Abdominal fluid cx from 7/14 noted to be growing same organisms as prior 09/13 cx w/ E. Faecium and Pseudomonas aeruginosa. Will f/u susceptibilities but suspect previous plan described in 09/29 note will remain appropriate and that regrowth more an issue of inadequate source control previously, now addressed w/ new drain. ID will continue to follow. Juany Ferguson MD Infectious Diseases Pager [phone] Please use Voalte to contact ID. * Gerson Duncan MD - 09/30/2020 10:39 AM CDT Images from the original note were not included. Daily Progress Note Today's Date: 09/30/2020 Name: Beverly Torres Admission Date: 09/26/2020 (LOS: 4 days) Assessment: Beverly Torres is a 70 y.o. female with large colovesical/vagi nal fistula s/p ex lap, LAR, resection of infected mesh, partial cystectomy, com plex cystorrhaphy in combination ([place] 09/04), whose post-operative course c/b a bdominal fluid collection s/p IR drain (09/13), now directly admitted from clini c due to new abdominal fluid collections on CT A/P (09/26). Principal Problem: Abdominal fluid collection Plan: - CT A/P (09/26): >CT cystogram with posterior superior bladder wall defect and contained perivesicular contrast extravasation which extends to the rectal st ump suture line and adjacent to opacified, tethered small bowel. Additi onal contrast opacification of the vagina compatible with complex fistul ous connection between these structures. >Extravasation of oral contrast into an anterior abdominal extraperitoneal fluid collection with percutaneous drain in place a t this - Urology recommendations noted and appreciated. No surgical intervention at thi s time from their standpoint. Maintain salomon catheter and continue Ditropan and Levsin for bladder spasms. - Regular Diet - Continue TPN for supplemental nutrition - F/u on fluid cultures - ABX: ID recommendations noted and appreciated: PO daptomycin, PO flagyl, cefep wenceslao, micafungin, PO Vanc. Will transition from Dapto to Zyvox on DC if SNF unabl e to accept on Dapto. Plan for therapy through 10/[address] a/p at completion of therapy per ID. - Pain Regimen: Endeavor Q6HR PRN, Gabapentin - PT/OT - PPx: SCD's and Lovenox - Dispo: Discharge to facility once final antibiotic regimen established and pen ding facility acceptance. Subjective: No acute events overnight. Wound stable, newer Jvac with little output. Tolerati ng PO, no nausea/emesis, having ostomy output. Objective: BP: (107-139)/(56-89) Temp: [36.6 C (97.9 F)-36.9 C (98.4 F)] Pulse: [67-80] Respirations: [14 PER MINUTE-16 PER MINUTE] SpO2: [93 %-95 %] Body mass index is 31.48 kg/m. Lab Results Component Value Date/Time NA 138 09/30/2020 04:19 AM K 4.3 09/30/2020 04:19 AM CL 103 09/30/2020 04:19 AM CO2 26 09/30/2020 04:19 AM BUN 26 (H) 09/30/2020 04:19 AM CR 0.78 09/30/2020 04:19 AM MG 2.1 09/30/2020 04:19 AM PO4 3.4 09/30/2020 04:19 AM Lab Results Component Value Date/Time HGB 10.2 (L) 09/30/2020 04:19 AM HCT 31.8 (L) 09/30/2020 04:19 AM WBC 10.0 09/30/2020 04:19 AM PLTCT 513 (H) 09/30/2020 04:19 AM INR 1.2 09/26/2020 06:58 PM Lab Results Component Value Date/Time GLUPOC 123 (H) 09/29/2020 05:24 PM GLUPOC 127 (H) 09/29/2020 12:43 PM GLUPOC 111 (H) 09/28/2020 10:15 PM Physical Exam Gen: NAD, nontoxic HEENT: NCAT, EOMI CV: Normal rate 70's, regular rhythm Pulm: Non-labored respirations on RA Abd: Soft, ND, appropriately TTP, ostomy site intact with light brown stool pres ent. Midline inferior incision has two small openings that are draining trivedi appe aring fluid. HEMA drain in place, also draining similar appearing fluid. Dressing for midline incision changed at bedside this morning during rounds. Neuro: GCS 15, MARTINEZ spontaneously Psych: Normal affect Active Wounds Wounds 09/04/20 Surgical Incision Anterior Abdomen (Active) 09/04/20 Abdomen Wound Type: Surgical Incision Pressure Injury Stages: Pressure Injury Present On Inpatient Admission: Wound/Pressure Injury Orientation: Anterior Wound Description (Comments): Wound Type:: Agree With My Assessment? Yes 09/30/20411 Wound Dressing Status Intact 09/29/20 235 Wound Dressing and / or Treatment Gauze;Abdominal pad 09/29/202008 Wound Securement / Protective Device Hypafix tape 09/29/202008 Wound Drainage Description Serosanguineous 09/29/202008 Wound Drainage Amount Scant 09/29/202008 Wound Base Assessment Clean;Moist;Labelle;Red 09/29/202008 Surrounding Skin Assessment Dry;Intact 09/29/202008 Wound Site Closure Wound Adhesive Bandage 09/29/202008 Number of days: 26 Wounds 09/12/20 0908 Pressure Injury Coccyx (Active) 09/12/20 0908 Coccyx Wound Type: Pressure Injury Pressure Injury Stages: Stage 3 Pressure Injury Present On Inpatient Admission: N Wound/Pressure Injury Orientation: Wound Description (Comments): Wound Type:: Wound Image 09/27/20 1400 Agree With My Assessment? Yes 09/30/20411 Wound Dressing Status Open to air 09/29/202008 Wound Dressing and / or Treatment A & D Ointment 09/29/202008 Wound Drainage Amount None 09/29/202008 Wound Base Assessment Clean;Moist;Labelle 09/29/202008 Surrounding Skin Assessment Dry;Intact;Labelle 09/29/202008 Wound Site Closure Open to Air 09/29/202008 Wound Status (Wound Team Only) Being Treated 09/27/20 1400 Number of days: 18 Wounds 09/12/20 0908 Pressure Injury Left Buttocks (Active) 09/12/20 0908 Buttocks Wound Type: Pressure Injury Pressure Injury Stages: Deep Tissue Pressure Injury Pressure Injury Present On Inpatient Admission: N Wound/Pressure Injury Orientation: Left Wound Description (Comments): Wound Type:: Agree With My Assessment? Yes 09/30/20 0412 Wound Dressing Status Open to air 09/29/202008 Wound Dressing and / or Treatment A & D Ointment 09/29/202008 Wound Drainage Amount None 09/29/202008 Wound Base Assessment Clean;Moist;Labelle 09/29/202008 Surrounding Skin Assessment Dry;Intact;Labelle 09/29/202008 Wound Site Closure Open to Air 09/29/202008 Wound Status (Wound Team Only) Being Treated 09/27/20 1400 Number of days: 18 Gerson Duncan MD Service Pager: # [phone] Associated attestation - Anurag Chow MD - 09/30/2020 8:56 PM CDT ATTESTATION I personally performed the jurado portions of the E/M visit, discussed case with re sident and concur with resident documentation of history, physical exam, assessm ent, and treatment plan unless otherwise noted. Staff name: Anurag Chow MD Date: 09/30/2020 * Betsy Morris - 09/29/2020 3:09 PM CDT Attempted requested Vacuum Cleaner Mechanic Consult at 14:00 on 09/29. Patient was asleep. Will attempt again. * Naomie Nolan RD - 09/29/2020 1:16 PM CDT Nutrition Support Service (NSS) Brief Note Admit Date: 09/26/2020 Service / Attending: Surgery-Oncology - [id number] / Jasbir, Bran H, DO Diagnosis: abdominal fluid collection, colovesical fistula Diet Order: Regular (very limited) Current PN Formula: non-standard, 75 mL/hr x 24 hours PN Line: double lumen PICC (placed 09/12) Pertinent Labs: 09/29/2020 04:05 Sodium 139 Potassium 4.4 Chloride 104 CO2 27 Anion Gap 8 BUN 23 Creatinine 0.85 Glucose 93 Calcium 8.9 Magnesium 2.1 Phosphorus 3.2 Height (cm): Height: 152.4 cm (60")(re-entered for BMI calculation) Admit Weight (kg): Weight: 73.1 kg (161 lb 3.2 oz)(re-entered for BMI calculatio n) Current Weight (kg): Weight: 73.1 kg (161 lb 3.2 oz)(re-entered for BMI calculat ion) [place] Body Weight (kg): 58 kg, BMI 24.9 BMI (kg/m2): Body mass index is 31.48 kg/m. Estimated Kcal Needs: 9107-7513 (25-28 kcal/kg desired weight of 58 kg) Estimated Protein Needs: 80-90 (1.5 g/kg desired weight of 58 kg) Physical Assessment: afebrile, RA; no edema; abdomen s/nd/nt per RN Pressure Injuries: stage 3 coccyx, DTI buttocks Assessment / PN Indication: Beverly Torres is a 70 y.o. female with large colovesical/vaginal fistula s/pex lap, LAR, resection of infected mesh, partial cystectomy, complex cystor rhaphy in combination(09/04), whose post-operative course c/babdominal fluid collection s/p IR drain (09/13),now directly admitted from clinic due tonew abdominal fluid collections on CT A/P (09/26). Well known to Clinical Nutrition and Nutrition Support Service from prior admissions. This will be the 3rd admit in the last 3 months. Most recently discharged on 09/21. TPN continued at facility with regular diet. TPN initiated near goal while NPO. Will adjust regimen as i ndicated by clinical status changes and PO appropriateness/tolerance. Cycled regimen to 20 hours, maintaining 1800mL total volume. Phos declined signi ficantly overnight, remains appropriate, however increasing content slightly to compensate and keep level maintained. No other changes to regimen. Met with dasia ent today, she is eating only small amounts due to early satiety and nausea. PN Orders (to start at 20:30): provides 1420 kcal Volume: 1800ml (47-95mL/hr, 20-hour cycle) Macronutrients: 85g amino acids (goal), 200g dextrose (goal), 200ml lipid (goal) Lytes/Additives: 185mEq Na (3/4 NS equivalent), 70mEq K+, 10mEq calcium, 16mEq m agnesium, 15mmol Phos, 10ml MVI, 1ml trace elements, 300mg vitamin C, Cl:Acetate 1:1 Plan / Recommendations: Continue TPN while GI function is impaired; limit PO to small, easy to digest portions to help with healing and maintenance of gut integrity. Outside electrolyte and fluid replacement per primary team; NSS to make bauer es to TPN routinely M-, weekends per on-call. Naomie Nolan RD, LD, [facility] Office: [phone] [place], [facility] Connect * Jeffrey Loomis MD - 09/29/2020 1:15 PM CDT Images from the original note were not included. Daily Progress Note Today's Date: 09/29/2020 Name: Beverly Torres Admission Date: 09/26/2020 (LOS: 3 days) Assessment: Beverly Torres is a 70 y.o. female with large colovesical/vagi nal fistula s/p ex lap, LAR, resection of infected mesh, partial cystectomy, com plex cystorrhaphy in combination ([place] 09/04), whose post-operative course c/b a bdominal fluid collection s/p IR drain (09/13), now directly admitted from [facility] due to new abdominal fluid collections on CT A/P (09/26). Principal Problem: Abdominal fluid collection Plan: - CT A/P (09/26): >CT cystogram with posterior superior bladder wall defect and contained perivesicular contrast extravasation which extends to the rectal st ump suture line and adjacent to opacified, tethered small bowel. Additi onal contrast opacification of the vagina compatible with complex fistul ous connection between these structures. >Extravasation of oral contrast into an anterior abdominal extraperitoneal fluid collection with percutaneous drain in place a t this - Urology recommendations noted and appreciated. No surgical intervention at thi s time from their standpoint. Maintain salomon catheter and continue Ditropan and Levsin for bladder spasms. - Regular Diet - Continue TPN for supplemental nutrition - F/up on fluid cultures - ABX: ID recommendations noted and appreciated: PO daptomycin, PO flagyl, cefep wenceslao, micafungin, PO Vanc. Final ABX regimen pending culture, aspirate results an d clinical course. - Pain Regimen: Endeavor Q6HR PRN, Gabapentin - PT/OT - PPx: SCD's and Lovenox - Dispo: Discharge to facility once final antibiotic regimen established Discussed with Dr. Martell Subjective: No acute events overnight. Doing well. Wound improving. Ostomy working well. Tolerating a diet. Denies any nausea vomiting. Objective: BP: (115-145)/(55-80) Temp: [36.3 C (97.4 F)-36.9 C (98.5 F)] Pulse: [67-75] Respirations: [12 PER MINUTE-18 PER MINUTE] SpO2: [92 %-95 %] Body mass index is 31.48 kg/m. Lab Results Component Value Date/Time NA 139 09/29/2020 04:05 AM K 4.4 09/29/2020 04:05 AM CL 104 09/29/2020 04:05 AM CO2 27 09/29/2020 04:05 AM BUN 23 09/29/2020 04:05 AM CR 0.85 09/29/2020 04:05 AM MG 2.1 09/29/2020 04:05 AM PO4 3.2 09/29/2020 04:05 AM Lab Results Component Value Date/Time HGB 9.3 (L) 09/29/2020 04:05 AM HCT 28.3 (L) 09/29/2020 04:05 AM WBC 10.6 09/29/2020 04:05 AM PLTCT 589 (H) 09/29/2020 04:05 AM INR 1.2 09/26/2020 06:58 PM Lab Results Component Value Date/Time GLUPOC 127 (H) 09/29/2020 12:43 PM GLUPOC 111 (H) 09/28/2020 10:15 PM GLUPOC 108 (H) 09/28/2020 04:59 PM Physical Exam Gen: NAD, nontoxic HEENT: NCAT, EOMI CV: Normal rate 70's, regular rhythm Pulm: Non-labored respirations on RA Abd: Soft, ND, appropriately TTP, ostomy site intact with light brown stool pres ent. Midline inferior incision has two small openings that are draining trivedi appe aring fluid. HEMA drain in place, also draining similar appearing fluid. Dressing for midline incision changed at bedside this morning. Neuro: GCS 15, MARTINEZ spontaneously Psych: Normal affect Malnutrition Details: Active Wounds Wounds 09/04/20 Surgical Incision Anterior Abdomen (Active) 09/04/20 Abdomen Wound Type: Surgical Incision Pressure Injury Stages: Pressure Injury Present On Inpatient Admission: Wound/Pressure Injury Orientation: Anterior Wound Description (Comments): Wound Type:: Agree With My Assessment? Yes 09/29/20 0400 Wound Dressing Status Intact 09/29/20 0930 Wound Dressing and / or Treatment Gauze;Abdominal pad 09/29/20 0930 Wound Securement / Protective Device Hypafix tape 09/29/20 0930 Wound Drainage Amount None 09/29/20 0930 Wound Base Assessment Dressing intact, base not assessed 09/29/20 0930 Surrounding Skin Assessment Dry;Intact 09/29/20 0930 Wound Site Closure Wound Adhesive Bandage 09/29/20 0930 Number of days: 25 Wounds 09/12/20 0908 Pressure Injury Coccyx (Active) 09/12/20 0908 Coccyx Wound Type: Pressure Injury Pressure Injury Stages: Stage 3 Pressure Injury Present On Inpatient Admission: N Wound/Pressure Injury Orientation: Wound Description (Comments): Wound Type:: Wound Image 09/27/20 1400 Agree With My Assessment? Yes 09/29/20 0400 Wound Dressing Status Open to air 09/29/20929 Wound Dressing and / or Treatment A & D Ointment 09/29/20929 Wound Drainage Amount None 09/29/20929 Wound Base Assessment Clean;Moist;Labelle;Yellow;Slough 09/29/20929 Surrounding Skin Assessment Dry;Intact;Labelle 09/29/20929 Wound Site Closure Open to Air 09/29/20929 Wound Status (Wound Team Only) Being Treated 09/27/20 1400 Number of days: 17 Wounds 09/12/20 09 Pressure Injury Left Buttocks (Active) 09/12/20 09 Buttocks Wound Type: Pressure Injury Pressure Injury Stages: Deep Tissue Pressure Injury Pressure Injury Present On Inpatient Admission: N Wound/Pressure Injury Orientation: Left Wound Description (Comments): Wound Type:: Agree With My Assessment? Yes 09/29/20 0400 Wound Dressing Status Open to air 09/29/20929 Wound Dressing and / or Treatment A & D Ointment 09/29/20929 Wound Drainage Amount None 09/29/20929 Wound Base Assessment Clean;Moist;Labelle;Yellow;Slough 09/29/20929 Surrounding Skin Assessment Dry;Intact;Labelle 09/29/20929 Wound Site Closure Open to Air 09/29/20929 Wound Status (Wound Team Only) Being Treated 09/27/20 1400 Number of days: 17 Jeffrey Loomis MD Service Pager: # [phone] * Jaymie Bruno - 09/29/2020 10:06 AM CDT PHYSICAL THERAPY MOBILITY NOTE Name: Beverly Torres : 1950 Age: 70 y.o. Admission Date: 09/26/2020 LOS: 3 days Mobility Patient was assigned for activity with the mobility aide by the supervising ther apist. Patient declined to participate despite encouragement. Merchandise Adjustment Clerk: Jaymie Bruno Date: 09/29/2020 * India Hassan MD - 09/29/2020 8:45 AM CDT Infectious Diseases Progress Note Today's Date: 09/29/2020 Admission Date: 09/26/2020 Reason for consultation: anastamotic leak Type: Co-Management w/Signed Orders Assessment: Colovesicular fistula s/p takedown partial cystectomy (09/04) Subincisional abdominal abscess (VRE, C.glabrata, PSAE) s/p PTC drain (09/13) Cystectomy leak possible redeveloping fistula, abscess/hematoma (09/26) s/p PTC d rain (09/27) - 2011 diverticulitis c/b rectovaginal fistula - 12/2011 s/p sigmoidectomy, vaginal cuff repair ([facility], Dr. 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 Leal + Dr. Vargas) - 07/2013 s/p ventral hernia repair with panniculectomy - 09/2013 recurrentrectovaginalfistula, s/pdiverting transverse colostomy - 08/2014 s/p colostomy takedown --> c/banastomotic breakdown - 2015 s/p lapredoofcolorectal anastomosis - 2015 onwards --> persistentcolovesicular fistula, chronicfecaluria, dysuria - 06/28/20 admit [facility] septic shock, pyelo - 06/28 CT a/p - L 5-cm extrarenal pelvic abscess, air in ureter, dilated R urete r, colovesicular fistula - 06/29 s/p R PCN urine cx VRE, B.thetaiotaomicron/other anaerobes, C.glabrata - 07/10 nephrostomy <100k C.parapsilosis (S fluc) - 07/10 urine cx >100k C.parapsilosis - 07/20-09/04 on ceftriaxone/flagyl/fluc (completed 2 wks taylor) - 09/04 s/p colovesicula fistula takedown, partial cystectomy - 09/11 CT a/p - anterior abdominal wall collection just under incision - 09/13 s/p IR drain placement - 09/13 cx VRE (S Lz, dapto remi 4), PSAE (S cefe remi 8), C.glabrata (R flu S taylor ) - 09/26 in colorectal clinic, feculant midline incision drainage - 09/26 CT bladder wall defect, contrast extravastation to rectal stump c/w blad edson leak probable colovesicular fistula - 09/27 s/p IR bella-vesicular abscess drain c/w old hematoma - 09/27 abscess g/s no orgs, no pmn, aerobic/anaerobic NGTD MRSE CLABSI (09/08/20) - PICC removed, vancomycin x 7 days Recent C.diff (06/2020) HTN Hypothyroid Thrombocytosis Recommendations: 1. Continue daptomycin 8 mg/kg/qd (VRE) --> may switch to PO linezolid 600 bid on dc to SNF (if SNF unable to accept her on dapto) 2. Continue po flagyl 500 bid (empiric anaerobic) 3. Continue cefepime 2q8 (GNR, prior PSAE) 4. Continue micafungin 100 mg qd (C.glabrata flu-R) 5. Plan additional 2 weeks above IV abx cefe/taylor PO linezolid/flagyl (end=10/12) 6. Continue po vanc 125 bid (C.diff suppression) cont until above abx complete ( perhaps 10/14 if stop 10/12 abx) 7. Consider salomon exchange prior to discharge (due ~10/04) 8. Plan for repeat contrasted CT a/p ~2 weeks (tentatively ~10/12) 9. Following 09/27 repeat hematoma/abscess cultures (NGTD) 10. Weekly cbc, cmp faxed to [phone] 11. Will arrange ID f/u after discharge India Hassan MD Division of Infectious Diseases pager [phone] Interval hx / ROS Afebrile since admit VSS remains on RA WBC 14.3->10.7 Plt 609-down No overnight events No fevers, no chills Sleeping ok No dyspnea or coughing Lower pelvic/bladder spasms Nauseated, no emesis No diarrhea, now semi-formed No rash or itching Antimicrobial Start date End date fluconazole 07/14 09/14 flagyl 07/03-09/11; 09/13-09/20; 09/27 active dapto 07/05-07/14; 09/15 - 09/24; 09/26 active micafungin 07/03-07/14; 09/14 active Po vancomycin 07/14 active ceftriaxone 07/14 09/11 cefepime 09/13 active linezolid 09/24 09/26 Estimated Creatinine Clearance: 56.5 mL/min (based on SCr of 0.85 mg/dL). Medications Scheduled Meds:buPROPion XL (WELLBUTRIN XL) tablet 150 mg, 150 mg, Oral, QDAY cefepime (MAXIPIME) 2 g in sodium chloride 0.9% (NS) 100 mL IVPB (MB+), 2 g, Int ravenous, Q8H* cetirizine (ZyrTEC) tablet 10 mg, 10 mg, Oral, QDAY DAPTOmycin (CUBICIN) injection 450 mg, 8 mg/kg (Adjusted), Intravenous, Q24H* enoxaparin (LOVENOX) syringe 40 mg, 40 mg, Subcutaneous, QDAY() gabapentin (NEURONTIN) capsule 300 mg, 300 mg, Oral, BID levothyroxine (SYNTHROID) tablet 50 mcg, 50 mcg, Oral, QDAY methocarbamoL (ROBAXIN) tablet 750 mg, 750 mg, Oral, BID metroNIDAZOLE (FLAGYL) tablet 500 mg, 500 mg, Oral, BID micafungin (MYCAMINE) 100 mg in sodium chloride 0.9% (NS) 100 mL IVPB (MB+), 100 mg, Intravenous, Q24H* naphazoline 0.025 % /pheniramine 0.3 % (NAPHCON-A) ophthalmic solution 1 drop, 1 drop, Both Eyes, QID ondansetron (ZOFRAN ODT) rapid dissolve tablet 4 mg, 4 mg, Oral, Q6H oxybutynin XL (DITROPAN XL) tablet 10 mg, 10 mg, Oral, QDAY pantoprazole DR (PROTONIX) tablet 40 mg, 40 mg, Oral, BID senna/docusate (SENOKOT-S) tablet 1 tablet, 1 tablet, Oral, BID sodium chloride PF 0.9% flush 10 mL, 10 mL, Flush, FLUSH TID sodium chloride PF 0.9% syringe 10 mL, 10 mL, Intravenous, BID vancomycin (FIRVANQ) oral solution 125 mg, 125 mg, Oral, BID Continuous Infusions: Adult Continuous Parenteral Nutrition (PN) 75 mL/hr at 09/28/20 2040 PRN and Respiratory Meds:aluminum/magnesium hydroxide QID PRN, HYDROcodone/aceta minophen Q6H PRN, hyoscyamine Q4H PRN, polyethylene glycol 3350 BID PRN, simethi cone Q6H PRN Physical Examination Vital Signs: Last Vital Signs: 24 Hour Ran ge BP: 131/62 (09/30 723) Temp: 36.8 C (98.2 F) (09/30 723) Pulse: 73 (09/30 723) Respirations: 14 PER MINUTE (09/30 723) SpO2: 93 % (09/30 723) BP: (115-148)/(55-80) Temp: [36.3 C (97.4 F)-36.9 C (98.5 F)] Pulse: [69-75] Respirations: [12 PER MINUTE-18 PER MINUTE] SpO2: [92 %-94 %] Gen: alert, oriented, NAD H&N: no thrush Lungs: clear ant/laterally Heart: RRR, no murmur Abd: soft, ND, lower pelvic TTP w/o guarding RLQ colostomy-liquid stools L midline incision with 1 cm round opening mid-aspect serous drainage on dressin g w/o odor, no adjacent erythema, lower incision 2-3 cm wound down to fat also s erous non-malodorous drainage on dressing, no feculant output from either incisi on/wound LLQ HEMA [id number] thin drainage in tube RLQ Jvac -dark red fluid Ext: no edema Skin: no rash Lines: RUE PICC DL (09/12) - site unremarkable Drains/tubes: Salomon (09/04) L mid-abd Jvac (09/13) LLQ HEMA (09/04) RLQ Jvac (09/27) RLQ colostomy Lab Review Hematology Recent Labs 09/26/20 1231 09/26/20 1858 09/27/20 0439 09/28/20 0330 09/29/20 0405 WBC < > -- 11.9* 10.7 10.6 HGB < > -- 8.7* 8.9* 9.3* HCT < > -- 27.3* 27.9* 28.3* PLTCT < > -- 638* 609* 589* INR -- 1.2 -- -- -- < > = values in this interval not displayed. Chemistry Recent Labs 09/26/20 1231 09/26/20 1231 09/27/20 0439 09/28/20 0330 09/29/20 0405 NA 134* < > 137 137 139 K 4.3 < > 4.3 4.2 4.4 CL 102 < > 103 105 104 CO2 25 < > 25 23 27 BUN 28* < > 22 21 23 CR 0.78 < > 0.81 0.87 0.85 GFR >60 < > >60 >60 >60 GLU 111* < > 86 98 93 CA 9.5 < > 8.6 9.0 8.9 PO4 -- -- 4.7* 4.1 3.2 ALBUMIN 3.3* -- 2.9* -- -- ALKPHOS 150* -- 136* -- -- AST 26 -- 22 -- -- ALT 30 -- 25 -- -- TOTBILI 0.5 -- 0.5 -- -- < > = values in this interval not displayed. Microbiology, Radiology and other Diagnostics Review RADIOLOGY: reviewed MICRO: reviewed * Jaymie Bruno - 09/28/2020 3:00 PM CDT PHYSICAL THERAPY MOBILITY NOTE Name: Beverly Torres : 1950 Age: 70 y.o. Admission Date: 09/26/2020 LOS: 2 days Mobility Patient was assigned for activity with the mobility aide by the supervising ther api. Patient politely declined to participate due to feeling fatigued. Merchandise Adjustment Clerk: Jaymie Bruno Date: 09/28/2020 * Naomie Nolan, RD - 09/28/2020 1:20 PM CDT Nutrition Support Service (NSS) Initial Consult Note Admit Date: 09/26/2020 Service / Attending: Surgery-Oncology - 74 / Bran Martell DO Diagnosis: abdominal fluid collection, colovesical fistula Diet Order: NPO (for IR) Current PN Formula: non-standard, 75 mL/hr x 24 hours PN Line: double lumen PICC (placed 09/12) Pertinent Labs: 09/28/2020 03:30 Sodium 137 Potassium 4.2 Chloride 105 CO2 23 Anion Gap 9 BUN 21 Creatinine 0.87 Glucose 98 Calcium 9.0 Magnesium 2.1 Phosphorus 4.1 Height (cm): Height: 152.4 cm (60")(re-entered for BMI calculation) Admit Weight (kg): Weight: 73.1 kg (161 lb 3.2 oz)(re-entered for BMI calculatio n) Current Weight (kg): Weight: 73.1 kg (161 lb 3.2 oz)(re-entered for BMI calculat ion) [place] Body Weight (kg): 58 kg, BMI 24.9 BMI (kg/m2): Body mass index is 31.48 kg/m. Estimated Kcal Needs: 5607-6847 (25-28 kcal/kg desired weight of 58 kg) Estimated Protein Needs: 80-90 (1.5 g/kg desired weight of 58 kg) Physical Assessment: afebrile, RA; no edema; abdomen s/nd/nt per RN Pressure Injuries: stage 3 coccyx, DTI buttocks Assessment / PN Indication: Beverly Torres is a 70 y.o. female with large colovesical/vaginal fistula s/pex lap, LAR, resection of infected mesh, partial cystectomy, complex cystor rhaphy in combination(09/04), whose post-operative course c/babdominal fluid collection s/p IR drain (09/13),now directly admitted from clinic due tonew abdominal fluid collections on CT A/P (09/26). Well known to Clinical Nutrition and Nutrition Support Service from prior admissions. This will be the 3rd admit in the last 3 months. Most recently discharged on 09/21. TPN continued at facility with regular diet. TPN initiated near goal while NPO. Will adjust regimen as i ndicated by clinical status changes and PO appropriateness/tolerance. No changes made to TPN today. Will adjust tomorrow pending PO intakes, currently providing near 100% of low-end of kcal needs and 100% of protein goal given exp ected low absorption capacity with current abdominal fluid collections requiring drains. Will also plan to cycle if no concerns arise tomorrow. PN Orders (to start at 20:30): provides 1420 kcal Volume: 1800ml (75ml/hr) Macronutrients: 85g amino acids (goal), 200g dextrose (goal), 200ml lipid (goal) Lytes/Additives: 185mEq Na (3/4 NS equivalent), 70mEq K+, 10mEq calcium, 16mEq m agnesium, 10mmol Phos, 10ml MVI, 1ml trace elements, 300mg vitamin C, Cl:Acetate 1:1 Plan / Recommendations: Continue TPN while GI function is impaired; limit PO to small, easy to digest portions to help with healing and maintenance of gut integrity. Outside electrolyte and fluid replacement per primary team; NSS to make bauer es to TPN routinely M-, weekends per on-call. Naomie Nolan RD, LD, [facility] Office: [phone] [facility], [facility] Connect * Marti Puckett, GEETA-CHIP MUCKER - 09/28/2020 11:53 AM CDT Interventional Radiology Follow Up Note Admission Date: 09/26/2020 LOS: 2 days Principal Problem: Abdominal fluid collection Procedure completed: Beverly Torres is a 70 y.o. female who is status post RLQ drain placement. Assessment: - Pt resting in bed. NAD. JVAC drain (#2/RLQ) working appropriately. Plan: Flush drain with 10 ml Normal Saline twice a day and as needed to maintain paten cy. 2. Recommend ABX coverage for at least 48 hrs post-procedure and then to primary team discretion. 3. Change dressing weekly and as needed if soiled. 4. When output drops below 30mL per 24 hr period, please obtain imaging to evalu ate fluid collection. Helpful if imaging matches initial diagnostic imaging. 5. Notify Interventional Radiology: the drainage bag won't hold suction, no drnathaniel johnson observed in drainage bag, bleeding or drainage around tube site, skin break down around tube site, catheter position changed/pulled, catheter has fallen out or has been pulled out. 6. Call IR or if desired any provider may pull drain when team deems it is no lo nger needed. We appreciate being able to participate in this patient's care. Please page with any questions or concerns. Marti Puckett, GEETA-RODOLFO Pgr [phone] IR Team Pager [phone] (After-hours and Weekends) Subjective Patient resting in bed. NAD. Review of Systems Constitutional: negative Respiratory: negative Cardiovascular: negative Medications Scheduled Meds:buPROPion XL (WELLBUTRIN XL) tablet 150 mg, 150 mg, Oral, QDAY cefepime (MAXIPIME) 2 g in sodium chloride 0.9% (NS) 100 mL IVPB (MB+), 2 g, Int ravenous, Q8H* cetirizine (ZyrTEC) tablet 10 mg, 10 mg, Oral, QDAY DAPTOmycin (CUBICIN) injection 450 mg, 8 mg/kg (Adjusted), Intravenous, Q24H* enoxaparin (LOVENOX) syringe 40 mg, 40 mg, Subcutaneous, QDAY(21) gabapentin (NEURONTIN) capsule 300 mg, 300 mg, Oral, BID levothyroxine (SYNTHROID) tablet 50 mcg, 50 mcg, Oral, QDAY methocarbamoL (ROBAXIN) tablet 750 mg, 750 mg, Oral, BID metroNIDAZOLE (FLAGYL) tablet 500 mg, 500 mg, Oral, BID micafungin (MYCAMINE) 100 mg in sodium chloride 0.9% (NS) 100 mL IVPB (MB+), 100 mg, Intravenous, Q24H* naphazoline 0.025 % /pheniramine 0.3 % (NAPHCON-A) ophthalmic solution 1 drop, 1 drop, Both Eyes, QID ondansetron (ZOFRAN ODT) rapid dissolve tablet 4 mg, 4 mg, Oral, Q6H oxybutynin XL (DITROPAN XL) tablet 10 mg, 10 mg, Oral, QDAY pantoprazole DR (PROTONIX) tablet 40 mg, 40 mg, Oral, BID senna/docusate (SENOKOT-S) tablet 1 tablet, 1 tablet, Oral, BID sodium chloride PF 0.9% flush 10 mL, 10 mL, Flush, FLUSH TID sodium chloride PF 0.9% syringe 10 mL, 10 mL, Intravenous, BID vancomycin (FIRVANQ) oral solution 125 mg, 125 mg, Oral, BID Continuous Infusions: Adult Continuous Parenteral Nutrition (PN) 75 mL/hr at 09/27/207 PRN and Respiratory Meds:aluminum/magnesium hydroxide QID PRN, HYDROcodone/aceta minophen Q6H PRN, hyoscyamine Q4H PRN, polyethylene glycol 3350 BID PRN, simethi cone Q6H PRN Objective Vital Signs: Last Filed Vital Signs: 24 Linh r Range BP: 148/57 (09/28 1120) Temp: 36.7 C (98.1 F) (09/28 1120) Pulse: 69 (09/28 1120) Respirations: 18 PER MINUTE (09/28 1120) SpO2: 93 % (09/28 1120) SpO2 Pulse: 70 (09/27 1652) Height: 152.4 cm (60") (09/27 1200) BP: (112-148)/(53-75) Temp: [36.5 C (97.7 F)-36.9 C (98.4 F)] Pulse: [67-81] Respirations: [14 PER MINUTE-25 PER MINUTE] SpO2: [91 %-100 %] Intensity Pain Scale (Self Report): 6 (09/28/20 0328) Vitals: 09/27/20 1200 Weight: 73.1 kg (161 lb 3.2 oz) Intake/Output Summary: (Last 24 hours) Intake/Output Summary (Last 24 hours) at 09/28/2020 1153 Last data filed at 09/28/2020 1121 Gross per 24 hour Intake 2243.25 ml Output 2925 ml Net -681.75 ml Stool Occurrence: 0 Physical Exam General: Alert to lethargic, NAD Lungs: Non-labored Abdomen: See above Lab/Radiology/Other Diagnostic Tests: Labs: 24-hour labs: Results for orders placed or performed during the hospital encounter of 09/26/20 (from the past 24 hour(s)) CULTURE-WOUND/TISSUE/FLUID(AEROBIC ONLY)W/SENSITIVITY Collection Time: 09/27/20 4:19 PM Specimen: Abdomen; Fluid Result Value Ref Range Battery Name ROUTINE CULTURE Report Status PRELIMINARY 09/27/2020 Specimen Description FLUID ABDOMEN Special Requests NONE Direct Gram Stain NO NEUTROPHILS SEEN Direct Gram Stain NO ORGANISMS SEEN Culture PENDING GRAM STAIN Collection Time: 09/27/20 4:19 PM Specimen: Abdomen; Fluid Result Value Ref Range Battery Name GRAM STAIN Report Status FINAL 09/27/2020 Specimen Description FLUID ABDOMEN Special Requests NONE Gram Stain NO NEUTROPHILS SEEN Gram Stain NO ORGANISMS SEEN POC GLUCOSE Collection Time: 09/27/20 5:17 PM Result Value Ref Range Glucose, POC 68 (L) 70 - 100 MG/DL POC GLUCOSE Collection Time: 09/27/20 9:43 PM Result Value Ref Range Glucose, POC 102 (H) 70 - 100 MG/DL CBC Collection Time: 09/28/20 3:30 AM Result Value Ref Range White Blood Cells 10.7 4.5 - 11.0 K/UL RBC 3.14 (L) 4.0 - 5.0 M/UL Hemoglobin 8.9 (L) 12.0 - 15.0 GM/DL Hematocrit 27.9 (L) 36 - 45 % MCV 89.0 80 - 100 FL MCH 28.3 26 - 34 PG MCHC 31.8 (L) 32.0 - 36.0 G/DL RDW 16.4 (H) 11 - 15 % Platelet Count 609 (H) 150 - 400 K/UL MPV 7.7 7 - 11 FL BASIC METABOLIC PANEL Collection Time: 09/28/20 3:30 AM Result Value Ref Range Sodium 137 137 - 147 MMOL/L Potassium 4.2 3.5 - 5.1 MMOL/L Chloride 105 98 - 110 MMOL/L CO2 23 21 - 30 MMOL/L Anion Gap 9 3 - 12 Glucose 98 70 - 100 MG/DL Blood Urea Nitrogen 21 7 - 25 MG/DL Creatinine 0.87 0.4 - 1.00 MG/DL Calcium 9.0 8.5 - 10.6 MG/DL eGFR Non >60 >60 mL/min eGFR >60 >60 mL/min MAGNESIUM Collection Time: 09/28/20 3:30 AM Result Value Ref Range Magnesium 2.1 1.6 - 2.6 mg/dL PHOSPHORUS Collection Time: 09/28/20 3:30 AM Result Value Ref Range Phosphorus 4.1 2.0 - 4.5 MG/DL POC GLUCOSE Collection Time: 09/28/20 3:57 AM Result Value Ref Range Glucose, POC 112 (H) 70 - 100 MG/DL POC GLUCOSE Collection Time: 09/28/20 8:07 AM Result Value Ref Range Glucose, POC 119 (H) 70 - 100 MG/DL POC GLUCOSE Collection Time: 09/28/20 11:29 AM Result Value Ref Range Glucose, POC 123 (H) 70 - 100 MG/DL Radiology: Reviewed. * Madina Simms, PT - 09/28/2020 8:53 AM CDT PHYSICAL THERAPY ASSESSMENT Name: Beverly Torres : 1950 Age: 70 y.o. Admission Date: 09/26/2020 LOS: 2 days Mobility Patient Turn/Position: Weight shifted (Bed)(Pt working with therapy) Progressive Mobility Level: Walk in room Distance Walked (feet): 40 ft Level of Assistance: Stand by assistance Assistive Device: Walker Time Tolerated: 11-30 minutes Activity Limited By: No limitations Subjective Significant hospital events: Hx of large colovesical/vaginal fistula s/p ex lap, LAR, resection of infected mesh, partial cystectomy, complex cystorrhaphy in co mbination ([place] 09/04), post-operative course complicated by abdominal fluid col lection s/p IR drain 09/13. Admit from clinic due to new abdominal fluid collect ion on CT. IR to drain abscess and drain placement 09/27. Mental / Cognitive Status: Alert;Oriented;Cooperative Persons Present: Occupational Therapist Pain: Patient complains of pain;Patient does not rate pain Pain Location: Abdomen(drain sites) Pain Interventions: Patient pre-medicated;Patient agrees to participate in thera py with modifications to session;Treatment altered to patient's pain tolerance Ambulation Assist: Independent Mobility in Community without Device Patient Owned Equipment: Roller Walker Home Situation: Lives with Family(maria de jesus, who is currently hospitalized for COVI D) Type of Home: House Entry Stairs: No Stairs In-Home Stairs: No Stairs Comments: [facility] admitted from [facility] facility. ROM LE ROM: Bilateral;Hip;Knee;Ankle;WFL Strength Overall Strength: WFL;No Focal Deficits Noted Bed Mobility/Transfer Bed Mobility: Supine to Sit: Standby Assist;Head of Bed Elevated Bed Mobility: Sit to Supine: Standby Assist;HOB Elevated Transfer Type: Sit to/from Stand Transfer: Assistance Level: To/From;Bed;Standby Assist Transfer: Assistive Device: Roller Walker Transfers: Type Of Assistance: For Balance;For Safety Considerations End Of Activity Status: In Bed;Nursing Notified;Instructed Patient to Request As sist with Mobility;Instructed Patient to Use Call Light(bed alarm activated, murali l light in reach) Gait Gait Distance: 40 feet Gait: Assistance Level: Standby Assist Gait: Assistive Device: Roller Walker Gait: Descriptors: Pace: Slow;Swing-Through Gait;Normal step length Activity Limited By: Patient Choice Education Persons Educated: Patient Patient Barriers To Learning: None Noted Teaching Methods: Verbal Instruction Patient Response: Verbalized Understanding Topics: Plan/Goals of PT Interventions;Use of Assistive Device/Orthosis;Mobility Progression;Safety Awareness;Up with Assist Only;Importance of Increasing Activ ity;Ambulate With Nursing;Therapy Schedule Assessment/Progress Impaired Mobility Due To: Pain;Decreased Activity Tolerance;Medical Status Limit ation Assessment/Progress: Should Improve w/ Continued PT Comments: Patient mobilizing well with roller walker. Needing assistance with me dical needs/management, which she does not have at home. Will benefit from sara kaur skilled intervention. AM-PAC 6 Clicks Basic Mobility Inpatient Turning from your back to your side while in a flat bed without using bed rails: None Moving from lying on your back to sitting on the side of a flatbed without using bedrails : None Moving to and from a bed to a chair (including a wheelchair): None Standing up from a chair using your arms (e.g. wheelchair, or bedside chair): No ne To walk in hospital room: A Little Climbing 3-5 steps with a railing: A Little Raw Score: 22 Standardized (T-scale) Score: 47.4 Basic Mobility CMS 0-100%: 25.02 CMS G Code Modifier for Basic Mobility: CJ Goals Goal Formulation: With Patient Time For Goal Achievement: 5 days, To, 7 days Patient Will Go Supine To/From Sit: Independently Patient Will Transfer Sit to Stand: Independently Patient Will Ambulate: Greater than 200 Feet, w/ Walker, Independently Plan Treatment Interventions: Mobility Training;Strengthening;Balance Activities;Endu corine Training Plan Frequency: 1-2 Days per Week PT Plan for Next Visit: Progress gait, BLE strengthening. distance learning technician to assist with ongoing mobilization, ADLs and/or exerc ise per instructions of licensed therapy staff. PT Discharge Recommendations Recommendation: Inpatient setting [place] [id number] Date 09/28/2020 * Shira Parker OT - 09/28/2020 8:53 AM CDT OCCUPATIONAL THERAPY ASSESSMENT NOTE Name: Beverly Torres : 1950 Age: 70 y.o. Admission Date: 09/26/2020 LOS: 2 days Mobility Patient Turn/Position: Weight shifted (Bed)(Pt working with therapy) Progressive Mobility Level: Walk in room Distance Walked (feet): 40 ft Level of Assistance: Stand by assistance Assistive Device: Walker Time Tolerated: 11-30 minutes Activity Limited By: No limitations Subjective Pertinent Dx per Physician: 70 y.o. female with large colovesical/vaginal fistul a s/p ex lap, LAR, resection of infected mesh, partial cystectomy, complex cysto rrhaphy in combination ([place] 09/04), whose post-operative course c/b abdominal f luid collection s/p IR drain (09/13), now directly admitted from clinic due to n ew abdominal fluid collections on CT A/P (09/26). Precautions: Isolation Pain / Complaints: Patient agrees to participate in therapy Objective Psychosocial Status: Willing and Cooperative to Participate Persons Present: Physical Therapist Home Living Type of Home: Nursing Facility Comment: Pt admitted from SNF. She reports she has not been home in 4 months due to medical needs. Prior Function Level Of [place]: Needed assistance with ADLs Receives Help From: Patient Medical Attendant ADL's Where Assessed: Edge of Bed Eating Assist: Stand By Assist Eating Deficits: Beverage Management LE Dressing Assist: Stand By Assist LE Dressing Deficits: Don/Doff R Shoe;Don/Doff L Shoe Comment: Pt able to sho slip on sandals. ADL Mobility Bed Mobility: Supine to Sit: Standby assist Bed Mobility: Sit to Supine: Standby assist Transfer Type: Sit to stand Transfer: Assistance Level: From;Bed;Standby assist Transfer: Assistive Device: Roller walker Transfer: Type of Assistance: For balance;For safety considerations End of Activity Status: In bed;Instructed patient to request assist with mobilit y Gait Distance: 40 feet Gait: Assistance Level: Standby assist Gait: Assistive Device: Roller walker Cognition Overall Cognitive Status: WFL to Adequately Complete Self Care Tasks Safely Education Persons Educated: Patient Barriers To Learning: None Noted Teaching Methods: Verbal Instruction Patient Response: Verbalized Understanding Topics: Role of OT, Goals for Therapy Assessment Assessment: Decreased ADL Status;Decreased Endurance Pt is moving well with RW. Requires some assist with lower body ADLs. Requires c onsistent support for management of medical needs (I.e. drains). AM-PAC 6 Clicks Daily Activity Inpatient Putting on and taking off regular lower body clothes?: A Little Bathing (Including washing, rinsing, drying): A Little Toileting, which includes using toilet, bedpan, or urinal: A Little Putting on and taking off regular upper body clothing: None Taking care of personal grooming such as brushing teeth: None Eating meals?: None Daily Activity Raw Score: 21 Standardized (t-scale) score: 44.27 CMS 0-100% Score: 32.79 CMS G Code Modifier: CJ Plan OT Frequency: 1-2x/week OT Plan for Next Visit: Maintain mobility, ADLs ADL Goals Patient Will Perform All ADL's: w/ Modified [place] Functional Transfer Goals Pt Will Perform All Functional Transfers: Modified Independent OT Discharge Recommendations Recommendation: Inpatient setting Therapist: SHAUN Linton/Nakul [id number] Date: 09/28/2020 * India Hassan MD - 09/28/2020 8:20 AM CDT Infectious Diseases Progress Note Today's Date: 09/28/2020 Admission Date: 09/26/2020 Reason for consultation: anastamotic leak Type: Co-Management w/Signed Orders Assessment: Colovesicular fistula s/p takedown partial cystectomy (09/04) Cystectomy leak with possible redeveloping fistula, adjacent abscess/uninoma () s/p PTC drain (09/27) - 2011 diverticulitis c/b rectovaginal fistula - 12/2011 s/p sigmoidectomy, vaginal cuff repair ([facility], Dr. 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 Leal + Dr. Vargas) - 07/2013 s/p ventral hernia repair with panniculectomy - 09/2013 recurrentrectovaginalfistula, s/pdiverting transverse colostomy - 08/2014 s/p colostomy takedown --> c/banastomotic breakdown - 2015 s/p lapredoofcolorectal anastomosis - 2015 onwards --> persistentcolovesicular fistula, chronicfecaluria, dysuria - 06/28/20 admit [facility] septic shock, pyelo - 06/28 CT a/p - L 5-cm extrarenal pelvic abscess, air in ureter, dilated R urete r, colovesicular fistula - 06/29 s/p R PCN urine cx VRE, B.thetaiotaomicron/other anaerobes, C.glabrata - 07/10 nephrostomy <100k C.parapsilosis (S fluc) - 07/10 urine cx >100k C.parapsilosis - 07/20-09/04 on ceftriaxone/flagyl/fluc (completed 2 wks taylor) - 09/04 s/p colovesicula fistula takedown, partial cystectomy - 09/11 CT a/p - anterior abdominal wall collection just under incision - 09/13 s/p IR drain placement - 09/13 cx VRE (S Lz, dapto remi 4), PSAE (S cefe remi 8), C.glabrata (R flu S taylor ) - 09/26 in colorectal clinic, feculant midline incision drainage - 09/26 CT bladder wall defect, contrast extravastation to rectal stump c/w blad edson leak probable colovesicular fistula - 09/27 s/p IR bella-vesicular abscess drain c/w old hematoma MRSE CLABSI (09/08/20) - PICC removed, vancomycin x 7 days Recent C.diff (06/2020) HTN Hypothyroid Thrombocytosis Recommendations: 1. Continue daptomycin 8 mg/kg/qd (VRE) 2. Continue po flagyl 500 bid (empiric anaerobic) 3. Continue cefepime 2q8 (GNR, prior PSAE) 4. Continue micafungin 100 mg qd (C.glabrata flu-R) 5. Continue po vanc 125 bid (C.diff suppression) 6. Following bella-vesicular hematoma/abscess cx (gram stain unrevealing) 7. Final abx plan yet TBD pending aspirate, cultures, clinical course India Hassan MD Division of Infectious Diseases pager [phone] Interval hx / ROS Afebrile since admit VSS remains on RA WBC 14.3->10.7 Plt 609-down No overnight events No fevers, no chills Nauseated no emesis No diarrhea, loose colostomy stool output unchanged Lower abdominal pain No incisional drainage No rash or itching Antimicrobial Start date End date fluconazole 07/14 09/14 flagyl 07/03-09/11; 09/13-09/20; 09/27 active dapto 07/05-07/14; 09/15 - 09/24; 09/26 active micafungin 07/03-07/14; 09/14 active Po vancomycin 07/14 active ceftriaxone 07/14 09/11 cefepime 09/13 active linezolid 09/24 09/26 Estimated Creatinine Clearance: 55.2 mL/min (based on SCr of 0.87 mg/dL). Medications Scheduled Meds:buPROPion XL (WELLBUTRIN XL) tablet 150 mg, 150 mg, Oral, QDAY cefepime (MAXIPIME) 2 g in sodium chloride 0.9% (NS) 100 mL IVPB (MB+), 2 g, Int ravenous, Q8H* cetirizine (ZyrTEC) tablet 10 mg, 10 mg, Oral, QDAY DAPTOmycin (CUBICIN) injection 450 mg, 8 mg/kg (Adjusted), Intravenous, Q24H* enoxaparin (LOVENOX) syringe 40 mg, 40 mg, Subcutaneous, QDAY(21) gabapentin (NEURONTIN) capsule 300 mg, 300 mg, Oral, BID levothyroxine (SYNTHROID) tablet 50 mcg, 50 mcg, Oral, QDAY methocarbamoL (ROBAXIN) tablet 750 mg, 750 mg, Oral, BID metroNIDAZOLE (FLAGYL) tablet 500 mg, 500 mg, Oral, BID micafungin (MYCAMINE) 100 mg in sodium chloride 0.9% (NS) 100 mL IVPB (MB+), 100 mg, Intravenous, Q24H* naphazoline 0.025 % /pheniramine 0.3 % (NAPHCON-A) ophthalmic solution 1 drop, 1 drop, Both Eyes, QID ondansetron (ZOFRAN ODT) rapid dissolve tablet 4 mg, 4 mg, Oral, Q6H oxybutynin XL (DITROPAN XL) tablet 10 mg, 10 mg, Oral, QDAY pantoprazole DR (PROTONIX) tablet 40 mg, 40 mg, Oral, BID senna/docusate (SENOKOT-S) tablet 1 tablet, 1 tablet, Oral, BID sodium chloride PF 0.9% flush 10 mL, 10 mL, Flush, FLUSH TID sodium chloride PF 0.9% syringe 10 mL, 10 mL, Intravenous, BID vancomycin (FIRVANQ) oral solution 125 mg, 125 mg, Oral, BID Continuous Infusions: Adult Continuous Parenteral Nutrition (PN) 75 mL/hr at 09/27/202126 PRN and Respiratory Meds:aluminum/magnesium hydroxide QID PRN, HYDROcodone/aceta minophen Q6H PRN, hyoscyamine Q4H PRN, polyethylene glycol 3350 BID PRN, simethi cone Q6H PRN Physical Examination Vital Signs: Last Vital Signs: 24 Hour Ran ge BP: 135/70 (09/28 753) Temp: 36.6 C (97.9 F) (09/28 753) Pulse: 73 (09/28 753) Respirations: 14 PER MINUTE (09/28 753) SpO2: 94 % (09/28 753) SpO2 Pulse: 70 (09/27 1652) Height: 152.4 cm (60") (09/27 1200) BP: (112-145)/(53-75) Temp: [36.4 C (97.5 F)-36.9 C (98.4 F)] Pulse: [67-81] Respirations: [14 PER MINUTE-25 PER MINUTE] SpO2: [91 %-100 %] Gen: alert, oriented, NAD HENT: NC/AT, MMM no thrush Eyes: EOMi, conj pale not injected Neck: supple Lungs: diminished BS to bases Heart: RRR, no murmur Abd: soft, ND, diffuse TTP no guarding, no rebound RLQ colostomy-liquid stools L midline incision with 1 cm round opening mid-aspect no drainage, no adjacent e rythema, lower incision 2-3 cm wound down to fat, no feculant output from either incision/wound, LLQ HEMA drain-serosanginous drainage in tube Ext: no edema Skin: no rash Lines: RUE PICC DL (09/12) - site unremarkable Drains/tubes: Salomon (09/04) L mid-abd Jvac (09/13) LLQ HEMA (09/04) RLQ colostomy Lab Review Hematology Recent Labs 09/26/20 1231 09/26/20 1858 09/27/20 0439 09/28/20 0330 WBC 14.3* -- 11.9* 10.7 HGB 9.6* -- 8.7* 8.9* HCT 30.0* -- 27.3* 27.9* PLTCT 778* -- 638* 609* INR -- 1.2 -- -- Chemistry Recent Labs 09/26/20 1231 09/27/20 0439 09/28/20 0330 NA 134* 137 137 K 4.3 4.3 4.2 CL 102 103 105 CO2 25 25 23 BUN 28* 22 21 CR 0.78 0.81 0.87 GFR >60 >60 >60 GLU 111* 86 98 CA 9.5 8.6 9.0 PO4 -- 4.7* 4.1 ALBUMIN 3.3* 2.9* -- ALKPHOS 150* 136* -- AST 26 22 -- ALT 30 25 -- TOTBILI 0.5 0.5 -- Microbiology, Radiology and other Diagnostics Review RADIOLOGY: reviewed MICRO: reviewed * Nika Stark MD - 09/28/2020 7:37 AM CDT Images from the original note were not included. Daily Progress Note Today's Date: 09/28/2020 Name: Beverly Torres Admission Date: 09/26/2020 (LOS: 2 days) Assessment: Beverly Torres is a 70 y.o. 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 Principal Problem: Abdominal fluid collection Plan: - CT A/P (09/26): >CT cystogram with posterior superior bladder wall defect and contained perivesicular contrast extravasation which extends to the rectal st ump suture line and adjacent to opacified, tethered small bowel. Additi onal contrast opacification of the vagina compatible with complex fistul ous connection between these structures. >Extravasation of oral contrast into an anterior abdominal extraperitoneal fluid collection with percutaneous drain in place a t this - Urology recommendations noted and appreciated. No surgical intervention at thi s time from their standpoint. Maintain salomon catheter and continue Ditropan and Levsin for bladder spasms. - Regular Diet - Continue TPN for supplemental nutrition - F/up on fluid cultures - ABX: ID recommendations noted and appreciated: PO daptomycin, PO flagyl, cefep wenceslao, micafungin, PO Vanc. Final ABX regimen pending culture, aspirate results an d clinical course. - Pain Regimen: Endeavor Q6HR PRN, Gabapentin - PT/OT - PPx: SCD's and Lovenox - Dispo: Inpatient, CA7 Discussed with Dr. Martell Subjective: No acute events overnight. States that she slept well. Endorses feeling discomfo rt with bladder spasms, otherwise her pain is well controlled. She is tolerating her regular diet, no nausea or vomiting. Ostomy continues to be productive. Objective: BP: (112-145)/(53-75) Temp: [36.4 C (97.5 F)-36.9 C (98.4 F)] Pulse: [67-81] Respirations: [14 PER MINUTE-25 PER MINUTE] SpO2: [91 %-100 %] Body mass index is 31.48 kg/m. Lab Results Component Value Date/Time NA 137 09/28/2020 03:30 AM K 4.2 09/28/2020 03:30 AM CL 105 09/28/2020 03:30 AM CO2 23 09/28/2020 03:30 AM BUN 21 09/28/2020 03:30 AM CR 0.87 09/28/2020 03:30 AM MG 2.1 09/28/2020 03:30 AM PO4 4.1 09/28/2020 03:30 AM Lab Results Component Value Date/Time HGB 8.9 (L) 09/28/2020 03:30 AM HCT 27.9 (L) 09/28/2020 03:30 AM WBC 10.7 09/28/2020 03:30 AM PLTCT 609 (H) 09/28/2020 03:30 AM INR 1.2 09/26/2020 06:58 PM Lab Results Component Value Date/Time GLUPOC 112 (H) 09/28/2020 03:57 AM GLUPOC 102 (H) 09/27/2020 09:43 PM GLUPOC 68 (L) 09/27/2020 05:17 PM Physical Exam Gen: NAD, nontoxic HEENT: NCAT, EOMI CV: Normal rate 70's, regular rhythm Pulm: Non-labored respirations on RA Abd: Soft, ND, appropriately TTP, ostomy site intact with light brown stool pres ent. Midline inferior incision has two small openings that are draining trivedi appe aring fluid. HEMA drain in place, also draining similar appearing fluid. Dressing for midline incision changed at bedside this morning. Neuro: GCS 15, MARTINEZ spontaneously Psych: Normal affect Malnutrition Details: Active Wounds Wounds 09/04/20 Surgical Incision Anterior Abdomen (Active) 09/04/20 Abdomen Wound Type: Surgical Incision Pressure Injury Stages: Pressure Injury Present On Inpatient Admission: Wound/Pressure Injury Orientation: Anterior Wound Description (Comments): Wound Type:: Agree With My Assessment? Yes 09/28/20327 Wound Dressing Status Intact 09/27/202199 Wound Dressing and / or Treatment Gauze 09/27/202199 Wound Drainage Amount None 09/27/202199 Wound Base Assessment Dressing intact, base not assessed 09/27/202199 Surrounding Skin Assessment Dry;Intact 09/27/202199 Wound Site Closure Wound Adhesive Bandage 09/27/202199 Number of days: 24 Wounds 09/12/20 0908 Pressure Injury Coccyx (Active) 09/12/20 0908 Coccyx Wound Type: Pressure Injury Pressure Injury Stages: Stage 3 Pressure Injury Present On Inpatient Admission: N Wound/Pressure Injury Orientation: Wound Description (Comments): Wound Type:: Wound Image 09/27/20 1400 Agree With My Assessment? Yes 09/28/20327 Wound Dressing Status Open to air 09/27/202199 Wound Dressing and / or Treatment A & D Ointment 09/27/202199 Wound Drainage Amount None 09/27/202199 Wound Base Assessment Labelle;Moist 09/27/202199 Surrounding Skin Assessment Labelle;Dry 09/27/202199 Wound Site Closure Open to Air 09/27/202199 Wound Status (Wound Team Only) Being Treated 09/27/20 1400 Number of days: 16 Wounds 09/12/20 0908 Pressure Injury Left Buttocks (Active) 09/12/20 0908 Buttocks Wound Type: Pressure Injury Pressure Injury Stages: Deep Tissue Pressure Injury Pressure Injury Present On Inpatient Admission: N Wound/Pressure Injury Orientation: Left Wound Description (Comments): Wound Type:: Agree With My Assessment? Yes 09/28/20 0328 Wound Dressing Status Open to air 09/27/202199 Wound Dressing and / or Treatment A & D Ointment 09/27/202199 Wound Drainage Amount None 09/27/202199 Wound Base Assessment Labelle;Moist 09/27/202199 Surrounding Skin Assessment Labelle 09/27/202199 Wound Site Closure Open to Air 09/27/202199 Wound Status (Wound Team Only) Being Treated 09/27/20 1400 Number of days: 16 Nika Stark MD Service Pager: # [phone] * Marivel Zapata RN - 09/28/2020 4:41 AM CDT Christi Mendoza MD, notified of pt's fluid from [facility] unable to process d/t the th ickness of specimen. Orders to redraw. Pt has not had output from [facility] this bernadine ft. Team notified of pt's pain being uncontrolled on current regimen. Orders for 1 t ab Nocro. * Rachel Maloney RN - 09/27/2020 4:57 PM CDT Procedure site CDI. VSS on room air. Patient left unit with all belongings via c art. * Rachel Maloney RN - 09/27/2020 4:41 PM CDT Drain placed in IR [facility] (drain supply) paperwork filled out by this RN and [facility]. If drain remains in place at discharge, form to be faxed, along with copy of patient face sheet, to [facility] (fax: [phone]) by c ase retirement manager. Prior to discharge home, inpatient RN should also notify IR [facility] ([phone]) so that drain supplies and saline flush prescription can be delivered to [facility] for home use. Drain flushing and site care reviewed with patient prior to procedure. Pt verbal izes understanding, though may need reinforcement during hospitalization. Kim page instructions provided and added to patient AVS. * Katja Garcia RN - 09/27/2020 4:12 PM CDT Sedation physician present in room. Recent vitals and patient condition reviewed between sedating physician and nurse. Reassessment completed. Determination made to proceed with planned sedation. T * Rachel Maloney RN - 09/27/2020 3:47 PM CDT This RN advised RODOLFO Astorga that pt last had Lovenox last night, 09-26-20 at around 2030. Ok to proceed with planned procedure per RODOLFO Astorga. * Argenis Ward RN - 09/27/2020 2:23 PM CDT Images from the original note were not included. Wound Ostomy Note NAME:Beverly Torres :1950 AGE: 70 y.o. ADMISSION DATE: 09/26/2020 DAYS ADMITTED: LOS: 1 day Reason for Consult/Visit: ostomy education and pressure injury Stage II or great er Assessment/Plan: Principal Problem: Abdominal fluid collection This patient is known to our service from prior hospitalization. Consult placed for known pressure injuries on patients buttocks and coccyx as well as for her o stomy. Pressure injuries are continuing to heal, improvement from last hospitalization. Colostomy pouch clean, dry and intact with no signs of any leaking. Patient and bedside staff to manage pouch changes. Due to be changed today, bedside RN updat ed on plan of care. PLAN: - Apply A&D TID and PRN moisture from urine/stool. - Avoid briefs if possible; use only one disposable pad underneath pt. - Implement q2 hr turning schedule using foam wedge for support. - HOB less than or equal to 30 degrees unless contraindicated (to prevent sheari ng at coccyx/sacrum) OSTOMY CARE: Suggested Pouching Supplies:#[id number] 1.Change pouch with any sign of leaking. Do not reinforce leaking pouch wi th tape 2.Clean skin with water only - no soap or wipes 3.If skin is broken down surrounding stoma, sprinkle stoma powder and wipe away the excess 4.Garrard no sting skin prep on powdered skin and let dry completely 5.Cut new pouch leaving 1/8"-1/4" of skin showing between the stoma and pouc h 6.Warm new pouch in palm of hands 7.Ensure skin is dry and apply new pouch 8.Lay warm hand over pouch once it's applied Bedside RN is responsible for continuing ostomy education in between visits fr om our service. This can be achieved by including patient (and family) in ostomy care tasks such as pouch emptying and pouch changes. Wounds 09/12/20 09 Pressure Injury Coccyx (Active) 09/12/20 09 Coccyx Wound Type: Pressure Injury Pressure Injury Stages: Stage 3 Pressure Injury Present On Inpatient Admission: N Wound/Pressure Injury Orientation: Wound Description (Comments): Wound Type:: Wound Image 09/27/20 1400 Wound Dressing Status Open to air 09/27/20 1400 Wound Dressing and / or Treatment A & D Ointment 09/27/20 1400 Wound Drainage Amount None 09/27/20 1400 Wound Base Assessment Yellow;Slough;Labelle;Moist 09/27/20 1400 Surrounding Skin Assessment Dry;Labelle;Intact 09/27/20 1400 Wound Site Closure None;Open to Air 09/27/20 1400 Wound Status (Wound Team Only) Being Treated 09/27/20 1400 Number of days: 15 Wounds 09/12/20 09 Pressure Injury Left Buttocks (Active) 09/12/20 09 Buttocks Wound Type: Pressure Injury Pressure Injury Stages: Deep Tissue Pressure Injury Pressure Injury Present On Inpatient Admission: N Wound/Pressure Injury Orientation: Left Wound Description (Comments): Wound Type:: Wound Dressing Status Open to air 09/27/20 1400 Wound Dressing and / or Treatment A & D Ointment 09/27/20 1400 Wound Drainage Amount None 09/27/20 1400 Wound Base Assessment Slough;Yellow;Labelle;Moist 09/27/20 1400 Surrounding Skin Assessment Dry;Labelle;Intact 09/27/20 1400 Wound Site Closure None;Open to Air 09/27/20 1400 Wound Status (Wound Team Only) Being Treated 09/27/20 1400 Number of days: 15 Colostomy 09/04/20 1419 Upper Right Quadrant (Active) 09/04/20 1419 Upper Right Quadrant Agree With My Assessment? Yes 09/27/20 1103 Stoma Assessment Red 09/27/20 1300 Drainage Description Brown 09/27/20 1300 Peristomal Skin Assessment Unable to Assess 09/27/20 1300 Dressing Status Clean;Dry;Intact 09/27/20 1300 Drain Output (ml) 0 ml 09/27/20 1114 Our service will sign off at this time. Please place new consult if affected are a does not improve despite consistent implementation of recommendations listed a gisella. Thank you. JACINTO Wilson, RN, TCRN Wound/Ostomy Nursing Consult Service Available via [employer] or [employer] [phone] After hours please contact wound/internal carver "medical aides teacher" via [employer] * Nika Stark MD - 09/27/2020 7:23 AM CDT Daily Progress Note Today's Date: 09/27/2020 Name: Beverly Torres Admission Date: 09/26/2020 (LOS: 1 day) Assessment: Beverly Torres is a 70 y.o. 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 Principal Problem: Abdominal fluid collection Plan: - CT A/P (09/26): >CT cystogram with posterior superior bladder wall defect and contained perivesicular contrast extravasation which extends to the rectal st ump suture line and adjacent to opacified, tethered small bowel. Additi onal contrast opacification of the vagina compatible with complex fistul ous connection between these structures. >Extravasation of oral contrast into an anterior abdominal extraperitoneal fluid collection with percutaneous drain in place a t this - IR today for drainage of fluid collections - Urology recommendations noted and appreciated. No surgical intervention at thi s time from their standpoint. Maintain salomon catheter and continue Ditropan and Levsin for bladder spasms. - NPO for anticipated IR procedure today - Continue TPN for supplemental nutrition - ABX: Continue current regimen: oral Vancomycin, IV Micafungin, IV Cefepime, or al Linezolid. Pending recommendations from ID team. - Pain Regimen: Endeavor Q6HR PRN, Gabapentin - PT/OT - PPx: SCD's and Lovenox - Dispo: Inpatient, CA7 Discussed with Dr. Martell Subjective: No acute events overnight. States that she slept well. Endorses feeling discomfo rt with bladder spasms, otherwise her pain is well controlled. She is tolerating her regular diet, no nausea or vomiting. Ostomy continues to be productive. Objective: BP: (107-127)/(48-86) Temp: [36.7 C (98 F)-37.1 C (98.7 F)] Pulse: [73-91] Respirations: [14 PER MINUTE-18 PER MINUTE] SpO2: [92 %-98 %] There is no height or weight on file to calculate BMI. Lab Results Component Value Date/Time NA 137 09/27/2020 04:39 AM K 4.3 09/27/2020 04:39 AM CL 103 09/27/2020 04:39 AM CO2 25 09/27/2020 04:39 AM BUN 22 09/27/2020 04:39 AM CR 0.81 09/27/2020 04:39 AM MG 2.1 09/27/2020 04:39 AM PO4 4.7 (H) 09/27/2020 04:39 AM Lab Results Component Value Date/Time HGB 8.7 (L) 09/27/2020 04:39 AM HCT 27.3 (L) 09/27/2020 04:39 AM WBC 11.9 (H) 09/27/2020 04:39 AM PLTCT 638 (H) 09/27/2020 04:39 AM INR 1.2 09/26/2020 06:58 PM Lab Results Component Value Date/Time GLUPOC 111 (H) 09/26/2020 10:22 PM GLUPOC 117 (H) 09/21/2020 11:44 AM GLUPOC 117 (H) 09/21/2020 08:13 AM Physical Exam Gen: NAD, nontoxic HEENT: NCAT, EOMI CV: Normal rate 70's, regular rhythm Pulm: Non-labored respirations on RA Abd: Soft, ND, appropriately TTP, ostomy site intact with light brown stool pres ent. Midline inferior incision has two small openings that are draining trivedi appe aring fluid. HEMA drain in place, also draining similar appearing fluid. Dressing for midline incision changed at bedside this morning. Neuro: GCS 15, MARTINEZ spontaneously Psych: Normal affect Malnutrition Details: Active Wounds Wounds 09/26/201836 Surgical Incision Mid Abdomen (Active) 09/26/201836 Abdomen Wound Type: Surgical Incision Pressure Injury Stages: Pressure Injury Present On Inpatient Admission: Wound/Pressure Injury Orientation: Mid Wound Description (Comments): Wound Type:: Wound Dressing Status Intact 09/26/202021 Wound Dressing and / or Treatment Abdominal pad 09/26/202021 Wound Securement / Protective Device Hypafix tape 09/26/202021 Wound Drainage Description Trivedi;Foul Odor 09/26/201838 Wound Drainage Amount None 09/26/202021 Wound Base Assessment Clean 09/26/202021 Surrounding Skin Assessment Dry;Intact 09/26/202021 Wound Site Closure Wound Adhesive Bandage 09/26/202021 Number of days: 1 Wounds 09/26/20 183 Pressure Injury Left Buttocks (Active) 09/26/201836 Buttocks Wound Type: Pressure Injury Pressure Injury Stages: Stage 2 Pressure Injury Present On Inpatient Admission: Y Wound/Pressure Injury Orientation: Left Wound Description (Comments): Wound Type:: Wound Dressing Status None;Open to air 09/26/202021 Wound Drainage Amount None 09/26/202021 Wound Base Assessment Clean;Dry;Labelle 09/26/202021 Surrounding Skin Assessment Dry;Intact 09/26/202021 Wound Site Closure None;Open to Air 09/26/202021 Number of days: 1 Wounds 09/26/208 Pressure Injury Right Buttocks (Active) 09/26/201837 Buttocks Wound Type: Pressure Injury Pressure Injury Stages: Stage 2 Pressure Injury Present On Inpatient Admission: Y Wound/Pressure Injury Orientation: Right Wound Description (Comments): Wound Type:: Wound Dressing Status None;Open to air 09/26/202021 Wound Drainage Amount None 09/26/202021 Wound Base Assessment Clean;Dry;Labelle 09/26/202021 Surrounding Skin Assessment Dry;Intact 09/26/202021 Wound Site Closure None;Open to Air 09/26/202021 Number of days: 1 Nika Stark MD Service Pager: # [phone] * Nabeel Martinez - 09/26/2020 10:11 PM CDT RT Adult Assessment Note NAME:Beverly Torres :1950 AGE: 70 y.o. ADMISSION DATE: 09/26/2020 DAYS ADMITTED: LOS: 0 days RT Treatment Plan: Protocol Plan: Procedures PEP Therapy: Place a nursing order for "IS Q1h While Awake" for any of Lung Expa nsion indicators Additional Comments: Impressions of the patient: sleeping, no distress noted Vital Signs: Pulse: 90 RR: 18 PER MINUTE SpO2: 97 % O2 Device: Standby Liter Flow: O2%: Breath Sounds: Decreased Respiratory Effort: Non-Labored documented in this encounter H&P Notes * Nika Stark MD - 09/26/2020 4:49 PM CDT [facility] History and Physical Patient: Beverly Torres, [id number] Admission Date: (Not on file), LOS: 0 days Admission Diagnosis: abdominal abscess Date of Service: September 26, 2020 ASSESSMENT: Beverly Torres is a 70 y.o. female with large colovesical/vaginal fistula s/p ex lap, LAR, resection of infected mesh, partial cystectomy, complex cystorr haphy in combination ([place] 09/04), whose post-operative course c/b abdominal flu id collection s/p IR drain (09/13), now directly admitted from clinic due to new abdominal fluid collections on CT A/P (09/26). PLAN: - CT A/P (09/26): >CT cystogram with posterior superior bladder wall defect and contained perivesicular contrast extravasation which extends to the rectal stump suture line and adjacent to opacified, tethered small bowel. 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 >Extravasation of oral contrast into an anterior abdominal extraperitoneal fluid collection with percutaneous drain in place at this - Consults: >IR for drain placement tomorrow to address abdominal fluid collections. >Urology regarding identified bladder leak. >ID regarding antibiotic recommendations as these were being managed by Dr. Hassan prior to admission. - Pain Regimen: Endeavor Q6HR PRN, Gabapentin - ABX: Continue current regimen: oral Vancomycin, IV Micafungin, IV Cefepime, or al Linezolid. Pending recommendations from ID team. - Regular Diet; NPO at midnight in preparation for IR procedure tomorrow - Continue TPN for supplemental nutrition - PT/OT - PPx: SCD's and Lovenox - Dispo: Inpatient, CA7 Discussed with staff surgeon, Dr. Martlel. Nika Stark MD Service Pager: [phone] HPI: Beverly Torres is a 70 y.o. female with large colovesical/vaginal fis harlan s/p ex lap, LAR, resection of infected mesh, partial cystectomy, complex cy storrhaphy in combination with Dr. Rodriguez on 09/04/2020, whose post-operative cour se complicated by abdominal fluid collection s/p IR drain on 09/13/2020, now dir ectly admitted from post-operative visit in clinic due to newly identified abdom inal fluid collections on CT A/P (09/26). Patient relayed the same information th at was noted in clinic visit from earlier today. HPI obtained from post-operative clinic visit: She returns to clinic today for post operative visit. She has had two instances where she has had "gushes of fluid" come from her midline. One time this was 150 cc or more. It was clear to yellow. There may have been a slight tinge of blood in it. There is an open area on her midline incision that a few erum were rem marvin from. She is unsure where this is coming from. HEMA drain remains in place wi th dark brown drainage. She does not feel well but she is unsure if that is from surgery or her second COVID shot which she recently got. She continues on multi ple antibiotics under the direction of Dr. Hassan. Her salomon catheter is draining clear yellow urine. She continues on TPN and is also supplementing with as much food as she can eat. She orders food for every meal at her facility. Often gets full before finishing. Ostomy continues to function well. Pain is fairly well co ntrolled with Tylenol. Difficult to sit for long periods of time. Continues to w ork with PT and OT to regain strength. Medical History: Diagnosis Date Colovesical fistula Diverticulitis Hypertension Hypoglycemia Hypothyroid PONV (postoperative nausea and vomiting) Rectovaginal fistula Right ureteral injury Sepsis (HCC) Surgical History: Procedure Laterality Date HX SURGERY [...] 09/04/2020 Performed by Alexander Rodriguez MD at [facility] OR COLECTOMY WITH COLOPROCTOSTOMY AND COLOSTOMY - PARTIAL N/A 09/04/2020 Performed by Alexander Rodriguez MD at [facility] OR COLECTOMY WITH COLOPROCTOSTOMY AND COLOSTOMY - PARTIAL N/A 09/04/2020 Performed by Bran Martell DO at [facility] OR ABDOMEN SURGERY SECTION x 2 HX ROSARIO AND BSO No family history on file. Social History Tobacco Use Smoking status: Former Smoker Packs/day: 1.00 Years: 55.00 Pack years: 55.00 Types: Cigarettes Quit date: 05/15/2020 Years since quittin.3 Smokeless tobacco: Never Used Substance Use Topics Alcohol use: Not Currently Your Current Medications: Instructions acetaminophen (TYLENOL) 325 mg capsule Take 325 mg by mouth every 6 hours as ne eded. Max of 4,000 mg of acetaminophen in 24 hours. aluminum/magnesium hydroxide (MAALOX) 200/200 mg/5 mL susp oral suspension Take 30 mL by mouth as Needed. buPROPion SR (WELLBUTRIN-SR) 150 mg tablet Take 150 mg by mouth daily. cefepime (MAXIPIME) 2 g/20 mL 2 g in sodium chloride 0.9% (NS) 0.9 % 100 mL IVP B (MB+) Administer two g through vein every 8 hours for 9 days. Stop date 09/29 gabapentin (NEURONTIN) 300 mg capsule Take one capsule by mouth twice daily. HYDROcodone/acetaminophen (NORCO) 5/325 mg tablet Take one tablet to two tablet s by mouth every 6 hours as needed hyoscyamine (ANASPAZ) 0.125 mg rapid dissolve tablet Place one tablet under ton ghazala every 4 hours as needed. levocetirizine (XYZAL) 5 mg tab Take 1 tablet by mouth daily as needed. levothyroxine (SYNTHROID) 50 mcg tablet Take 50 mcg by mouth daily. linezolid (ZYVOX) 600 mg tablet Take one tablet by mouth twice daily for 9 days . Stop date 09/29 methocarbamoL (ROBAXIN) 750 mg tablet Take one tablet by mouth twice daily. micafungin (MYCAMINE) 100 mg/5 mL 100 mg in sodium chloride 0.9% (NS) 0.9 % 100 mL IVPB Administer one hundred mg through vein every 24 hours for 9 days. Stop date 09/29 Miscellaneous Medical Supply [facility] Colostomy supplies and accessories Dispense twenty of each for one month of supplies Dx Colovesical fistula N32.1 naphazoline 0.025 % /pheniramine 0.3 % (NAPHCON-A) 0.025/0.3 % drop Apply one d rop to both eyes four times daily. nicotine (NICODERM CQ STEP 2) 14 mg/day patch Apply 1 patch to top of skin as d irected every 24 hours. Rotate patch location. Indications: stop smoking nicotine (NICODERM CQ STEP 3) 7 mg/day patch Apply 1 patch to top of skin as di rected every 24 hours. Rotate patch location. Indications: stop smoking nicotine polacrilex (NICORETTE) 2 mg gum Take one each by mouth every 1 hour as needed. Chew to soften and park in mouth between lip and gum. May use 1 piece p er hour, not to exceed 24 per day, for 12 weeks. May be used for longer, if need ed. ondansetron (ZOFRAN ODT) 4 mg rapid dissolve tablet Dissolve 4 mg by mouth ever y [address] on tongue to disolve. other medication Total Parenteral Nutrition. oxybutynin XL (DITROPAN XL) 15 mg tablet Take one tablet by mouth daily for [address] (PROTONIX) 40 mg tablet Take one tablet by mouth twice daily. polyethylene glycol 3350 (MIRALAX) 17 g packet Take one packet by mouth twice d aily as needed. scopolamine (TRANSDERM-SCOP) 1mg over 3 days 3 day patch Apply 1 patch to top o f skin as directed every 72 hours. senna/docusate (SENOKOT-S) 8.6/50 mg tablet Take one tablet by mouth twice dayanna y. simethicone (MYLICON) 80 mg chew tablet Chew one tablet by mouth every 6 hours as needed for Flatulence. sodium chloride PF 0.9% syringe Inject 10 mL to area(s) as directed twice daily . Flush Jvac twice daily vancomycin (FIRVANQ) 25 mg/mL oral solution Take 5 mL by mouth twice daily. Con tinue while on antibiotics vitamin A & D oint Apply topically to affected area as Needed. Review of Systems Constitutional: Positive for malaise/fatigue. Negative for chills and fever. Respiratory: Negative. Cardiovascular: Negative. Gastrointestinal: Positive for abdominal pain. Psychiatric/Behavioral: Positive for depression. Vitals: BP: (107-127)/(85-86) Temp: [36.7 C (98 F)-36.7 C (98.1 F)] Pulse: [84-85] SpO2: [98 %] There is no height or weight on file to calculate BMI. Physical Exam HENT: Head: Normocephalic and atraumatic. Eyes: Extraocular Movements: Extraocular movements intact. Pupils: Pupils are equal, round, and reactive to light. Cardiovascular: Rate and Rhythm: Normal rate and regular rhythm. Pulmonary: Effort: Pulmonary effort is normal. Abdominal: General: The ostomy site is clean. Palpations: Abdomen is soft. Tenderness: There is generalized abdominal tenderness. Comments: Ostomy site intact with light brown stool present. Midline inferior incision has two small openings that are draining trivedi appearing fluid. HEMA drain in place, also draining similar appearing fluid. Neurological: Mental Status: She is alert. Psychiatric: Mood and Affect: Mood normal. Behavior: Behavior normal. Lab/Radiology/Other Diagnostic Tests: Lab Results Component Value Date/Time NA 134 (L) 09/26/2020 12:31 PM K 4.3 09/26/2020 12:31 PM CL 102 09/26/2020 12:31 PM CO2 25 09/26/2020 12:31 PM BUN 28 (H) 09/26/2020 12:31 PM CR 0.78 09/26/2020 12:31 PM MG 2.3 09/21/2020 04:34 AM PO4 3.8 09/21/2020 04:34 AM Lab Results Component Value Date/Time HGB 9.6 (L) 09/26/2020 12:31 PM HCT 30.0 (L) 09/26/2020 12:31 PM WBC 14.3 (H) 09/26/2020 12:31 PM PLTCT 778 (H) 09/26/2020 12:31 PM INR 1.0 06/28/2020 10:00 PM Lab Results Component Value Date/Time GLUPOC 117 (H) 09/21/2020 11:44 AM GLUPOC 117 (H) 09/21/2020 08:13 AM GLUPOC 91 09/21/2020 04:31 AM No orders to display Malnutrition Details: Active Wounds Associated attestation - Bran Martell DO - 09/27/2020 7:52 AM CDT ATTESTATION I personally performed the jurado portions of the E/M visit, discussed case with re sident and concur with resident documentation of history, physical exam, assessm ent, and treatment plan unless otherwise noted. Staff name: Bran Martell DO Date: 09/27/2020 Patient admitted from clinic Likely ec fistula forming CT reviewed Admit for IR drains documented in this encounter Consult Notes * Marivel Luis RN - 10/03/2020 12:46 PM CDT Reviewed d/c orders with daughter and pt. No further questions at this time. * Rachel Fowler M.Div, BCC - 10/02/2020 3:21 PM CDT Associated Order(s): CONSULT PARTS PROCESSOR Vacuum Cleaner Mechanic Note: Admit Date: 09/26/2020 The patient is [employer] and is a member of a caodaism near her home. She has enid that God is with her and that God "has a plan." She is overwhelmed and feels like bad things started to happen for her in 2011 a nd they have not stopped. I offered words of comfort and enid. The spiritual care team is available as needed, 07/10, through the [employer] oard ([phone]). For a response within 24 hours, please submit an order in O2 fo r a relay shop supervisor consult. Date/Time: User: 10/02/2020 3:21 PM Rachel Fowler M.Div, BCC * Denise Delacruz RN - 10/01/2020 2:17 PM CDT Associated Order(s): CONSULT DIAGNOSTIC RADIOLOGIST, OIL GAUGER Inpatient Psychiatric Clinical Nurse Specialist- Initial Consult Pt. Name: Beverly Torres Room: [place] [address] LOS: 5 Reason for consult: "Coping" Interventions that would be helpful: Patient is very faithful- she asked me to pray with her. There is a pastoral care consult also. Encourage patient to use t he CARE Channel. Unable to have meaningful conversation with patient due to her wanting to take a nap. This service is not able to enter orders. Primary team is responsible for enteri ng orders. I appreciate being invited to participate in this patient's care. Call or page i f there are any concerns or questions. JACINTO Dickson, RN, [facility]- Clinical Nurse Coordinator [phone] * Carolyn Duffy RN - 09/27/2020 4:23 PM CDT Associated Order(s): CONSULT WOUND/OSTOMY TEAM NURSE Wound Ostomy Note NAME:Beverly Torres :1950 AGE: 70 y.o. ADMISSION DATE: 09/26/2020 DAYS ADMITTED: LOS: 1 day Reason for Consult/Visit: pressure injury Stage II or greater Assessment/Plan: Principal Problem: Abdominal fluid collection Pt was assessed by Wound Team earlier today, please see note from 1423. Carolyn Duffy RN, BSN, CMSRN, CWON Wound Ostomy Nursing Consult Service Available via Voalte Text or [employer], Mobile Secretary [phone] Office number [phone] For questions after hours/weekend/holidays page [phone] or Voalte text the Woun d/Ostomy on-call nurse. * Gauri Leonard APRN-NP - 09/27/2020 12:12 PM CDT Associated Order(s): CONSULT INTERVENTIONAL RADIOLOGY PHYSICIAN This note is for billing purposes only. See note from 09/27 at 1155. * Gauri Leonard APRN-NP - 09/27/2020 11:55 AM CDT Associated Order(s): CONSULT WOUND/OSTOMY TEAM NURSE Interventional Radiology Consult Note with Pre-procedural History and Physical Admission Date: 09/26/2020 LOS: 1 day Principal Problem: Abdominal fluid collection Reason for consult: Abdominal drain placement Assessment: - Admitted with abdominal fluid collections on imaging - hx of hypothyroid, HTN, diverticulitis and a large colovesical/vaginal fistula s/p ex lap, LAR, resection of infected mesh, partial cystectomy and complex cys tarrhaphy on 09/04/2020 - Review of imaging significant for an abdominal fluid collection amenable to US guided drain placement - Labs, medications, and allergies meet procedural protocol. - Pt is not on a therapeutic blood thinner Platelet Count Date Value Ref Range Status 09/27/2020 638 (H) 150 - 400 K/UL Final ; INR Date Value Ref Range Status 09/26/2020 1.2 0.8 - 1.2 Final Plan: - This case has been reviewed and added onto the [place] IR schedule for today. - For sedation purposes, please keep NPO prior to procedure. May take PO medicat ions with sips of water. We appreciate being able to participate in this patient's care. Please page with any questions or concerns. Gauri Leonard APRN-CHIP MUCKER Pgr [phone] IR Team Pager [phone] (After-hours and Weekends) Procedure: Abdominal drain placement IR Pre Procedure Notes: Consent in chart Chief Complaint: Abdominal fluid collection Previous Anesthetic/Sedation History: Reviewed. Code Status: Full Code History of present illness: Beverly Torres is a 70 y.o. female patient with hx of hypothyroid, HTN, di verticulitis and a large colovesical/vaginal fistula s/p ex lap, LAR, resection of infected mesh, partial cystectomy and complex cystarrhaphy on 09/04/2020. She had an IR drain placed on 09/13/2020 for abdominal fluid collection. IR consulted for abdominal drain placement. See ROS below for current symptoms Review of Systems Constitutional: negative for fevers Respiratory: negative for cough or increased work of breathing Cardiovascular: negative for chest pain Gastrointestinal: positive for abdominal pain, negative for nausea/vomiting Medications Scheduled Meds:buPROPion XL (WELLBUTRIN XL) tablet 150 mg, 150 mg, Oral, QDAY cefepime (MAXIPIME) 2 g in sodium chloride 0.9% (NS) 100 mL IVPB (MB+), 2 g, Int ravenous, Q8H* cetirizine (ZyrTEC) tablet 10 mg, 10 mg, Oral, QDAY DAPTOmycin (CUBICIN) injection 450 mg, 8 mg/kg (Adjusted), Intravenous, Q24H* enoxaparin (LOVENOX) syringe 40 mg, 40 mg, Subcutaneous, QDAY(21) gabapentin (NEURONTIN) capsule 300 mg, 300 mg, Oral, BID levothyroxine (SYNTHROID) tablet 50 mcg, 50 mcg, Oral, QDAY methocarbamoL (ROBAXIN) tablet 750 mg, 750 mg, Oral, BID metroNIDAZOLE (FLAGYL) tablet 500 mg, 500 mg, Oral, BID micafungin (MYCAMINE) 100 mg in sodium chloride 0.9% (NS) 100 mL IVPB (MB+), 100 mg, Intravenous, Q24H* naphazoline 0.025 % /pheniramine 0.3 % (NAPHCON-A) ophthalmic solution 1 drop, 1 drop, Both Eyes, QID ondansetron (ZOFRAN ODT) rapid dissolve tablet 4 mg, 4 mg, Oral, Q6H oxybutynin XL (DITROPAN XL) tablet 10 mg, 10 mg, Oral, QDAY pantoprazole DR (PROTONIX) tablet 40 mg, 40 mg, Oral, BID senna/docusate (SENOKOT-S) tablet 1 tablet, 1 tablet, Oral, BID sodium chloride PF 0.9% flush 10 mL, 10 mL, Flush, FLUSH TID vancomycin (FIRVANQ) oral solution 125 mg, 125 mg, Oral, BID Continuous Infusions: Adult Continuous Parenteral Nutrition (PN) dextrose 5 % & 0.45% NaCl infusion 75 mL/hr at 09/27/20 1104 PRN and Respiratory Meds:aluminum/magnesium hydroxide QID PRN, HYDROcodone/aceta minophen Q6H PRN, hyoscyamine Q4H PRN, polyethylene glycol 3350 BID PRN, simethi cone Q6H PRN Objective Vital Signs: Last Filed Vital Signs: 24 Linh r Range BP: 114/60 (09/28 1111) Temp: 36.4 C (97.5 F) (09/28 1111) Pulse: 73 (09/28 1111) Respirations: 16 PER MINUTE (07/14 1112) SpO2: 95 % (09/27 1112) Height: 152.4 cm (60") (09/26 1550) BP: (87-121)/(48-85) Temp: [36.4 C (97.5 F)-37.1 C (98.7 F)] Pulse: [73-91] Respirations: [14 PER MINUTE-18 PER MINUTE] SpO2: [92 %-98 %] Intensity Pain Scale (Self Report): 6 (09/27/20 1103) There were no vitals filed for this visit. Intake/Output Summary: (Last 24 hours) Intake/Output Summary (Last 24 hours) at 09/27/2020 1155 Last data filed at 09/27/2020 1114 Gross per 24 hour Intake 933 ml Output 3428 ml Net -2495 ml Stool Occurrence: 0 Physical Exam General appearance: alert and no distress Neurologic: Grossly normal, at baseline Lungs: Nonlabored with normal effort Abdomen: soft, tender. Ostomy intact. Midline incision and abdominal drain with dressing clean, dry and intact. Extremities: extremities normal, atraumatic, no cyanosis or edema Airway: airway assessment performed Mallampati II (soft palate, uvula, fauces visible) Anesthesia Classification: ASA III (A patient with a severe systemic disease th at limits activity, but is not incapacitating) Pre procedure anxiolysis plan: Midazolam Intra-procedural Sedation/Medication Plan: Fentanyl, Lidocaine and Midazolam Personal history of sedation complications: Denies adverse event. Family history of sedation complications: Denies adverse event. Medications for Reversal: Naloxone and Flumazenil Discussion/Reviews: Physician has discussed risks and alternatives of this type of sedation and above planned procedures with patient NPO Status: Acceptable Status: Hx of hysterectomy Lab/Radiology/Other Diagnostic Tests: Labs: Pertinent labs reviewed Radiology: Reviewed. * Naomie Nolan RD - 09/27/2020 11:40 AM CDT Associated Order(s): NUTRITION SUPPORT SERVICE Nutrition Support Service (NSS) Initial Consult Note Admit Date: 09/26/2020 Service / Attending: Surgery-Oncology - 74 / Bran Martell DO Diagnosis: abdominal fluid collection, colovesical fistula Diet Order: NPO (for IR) Current PN Formula: non-standard, 75 mL/hr x 24 hours PN Line: double lumen PICC (placed 09/12) PMH: Medical History: Diagnosis Date Colovesical fistula Diverticulitis Hypertension Hypoglycemia Hypothyroid PONV (postoperative nausea and vomiting) Rectovaginal fistula Right ureteral injury Sepsis (HCC) PSH: Surgical History: Procedure Laterality Date HX SURGERY [...] 09/04/2020 Performed by Alexander Rodriguez MD at [facility] OR COLECTOMY WITH COLOPROCTOSTOMY AND COLOSTOMY - PARTIAL N/A 09/04/2020 Performed by Alexander Rodriguez MD at [facility] OR COLECTOMY WITH COLOPROCTOSTOMY AND COLOSTOMY - PARTIAL N/A 09/04/2020 Performed by Bran Martell DO at [facility] OR ABDOMEN SURGERY SECTION x 2 HX ROSARIO AND BSO Meds: Scheduled Meds:buPROPion XL (WELLBUTRIN XL) tablet 150 mg, 150 mg, Oral, Q DAY cefepime (MAXIPIME) 2 g in sodium chloride 0.9% (NS) 100 mL IVPB (MB+), 2 g, Int ravenous, Q8H* cetirizine (ZyrTEC) tablet 10 mg, 10 mg, Oral, QDAY DAPTOmycin (CUBICIN) injection 450 mg, 8 mg/kg (Adjusted), Intravenous, Q24H* enoxaparin (LOVENOX) syringe 40 mg, 40 mg, Subcutaneous, QDAY(21) gabapentin (NEURONTIN) capsule 300 mg, 300 mg, Oral, BID levothyroxine (SYNTHROID) tablet 50 mcg, 50 mcg, Oral, QDAY methocarbamoL (ROBAXIN) tablet 750 mg, 750 mg, Oral, BID metroNIDAZOLE (FLAGYL) tablet 500 mg, 500 mg, Oral, BID micafungin (MYCAMINE) 100 mg in sodium chloride 0.9% (NS) 100 mL IVPB (MB+), 100 mg, Intravenous, Q24H* naphazoline 0.025 % /pheniramine 0.3 % (NAPHCON-A) ophthalmic solution 1 drop, 1 drop, Both Eyes, QID ondansetron (ZOFRAN ODT) rapid dissolve tablet 4 mg, 4 mg, Oral, Q6H oxybutynin XL (DITROPAN XL) tablet 10 mg, 10 mg, Oral, QDAY pantoprazole DR (PROTONIX) tablet 40 mg, 40 mg, Oral, BID senna/docusate (SENOKOT-S) tablet 1 tablet, 1 tablet, Oral, BID sodium chloride PF 0.9% flush 10 mL, 10 mL, Flush, FLUSH TID vancomycin (FIRVANQ) oral solution 125 mg, 125 mg, Oral, BID Continuous Infusions: Adult Continuous Parenteral Nutrition (PN) dextrose 5 % & 0.45% NaCl infusion 75 mL/hr at 09/27/20 1104 PRN and Respiratory Meds:aluminum/magnesium hydroxide QID PRN, HYDROcodone/aceta minophen Q6H PRN, hyoscyamine Q4H PRN, polyethylene glycol 3350 BID PRN, simethi cone Q6H PRN Electrolyte Treatments: Pertinent Labs: 09/27/2020 04:39 Sodium 137 Potassium 4.3 Chloride 103 CO2 25 Anion Gap 9 BUN 22 Creatinine 0.81 Glucose 86 Albumin 2.9 (L) Calcium 8.6 Magnesium 2.1 Total Bilirubin 0.5 Total Protein 7.5 Phosphorus 4.7 (H) AST (SGOT) 22 ALT (SGPT) 25 Creatine Kinase 20 (L) Alk Phosphatase 136 (H) Triglycerides 158 (H) Height (cm): Height: 152.4 cm (60")(re-entered for BMI calculation) Admit Weight (kg): Weight: 73.1 kg (161 lb 3.2 oz)(re-entered for BMI calculatio n) Current Weight (kg): Weight: 73.1 kg (161 lb 3.2 oz)(re-entered for BMI calculat ion) [place] Body Weight (kg): 58 kg, BMI 24.9 BMI (kg/m2): Body mass index is 31.48 kg/m. Estimated Kcal Needs: 0433-4469 (25-28 kcal/kg desired weight of 58 kg) Estimated Protein Needs: 80-90 (1.5 g/kg desired weight of 58 kg) Physical Assessment: afebrile, RA; no edema; abdomen s/nd/nt per RN Pressure Injuries: stage 3 coccyx, DTI buttocks Assessment / PN Indication: Beverly Torres is a 70 y.o. female with large colovesical/vaginal fistula s/pex lap, LAR, resection of infected mesh, partial cystectomy, complex cystor rhaphy in combination(09/04), whose post-operative course c/babdominal fluid collection s/p IR drain (09/13),now directly admitted from clinic due tonew abdominal fluid collections on CT A/P (09/26). Well known to Clinical Nutrition and Nutrition Support Service from prior admissions. This will be the 3rd admit in the last 3 months. Most recently discharged on 09/21. TPN continued at facility with regular diet. TPN initiated near goal while NPO. Will adjust regimen as i ndicated by clinical status changes and PO appropriateness/tolerance. Given new abdominal fluid collections, maintaining 100% of nutrient needs via TP N. S/p zinc course completion for pressure injuries. Phos mildly elevated with o ther electrolytes appropriate this morning. Fluids maintained at baseline need. Sodium increased from IVF to meet baseline need and increased losses from abdomi nal drains. Supplementing with additional vitamin C to help with wound healing. PN Orders (to start at 20:30): provides 1420 kcal Volume: 1800ml (75ml/hr) Macronutrients: 85g amino acids (goal), 200g dextrose (goal), 200ml lipid (goal) Lytes/Additives: 185mEq Na (3/4 NS equivalent), 70mEq K+, 10mEq calcium, 16mEq m agnesium, 10mmol Phos, 10ml MVI, 1ml trace elements, 300mg vitamin C, Cl:Acetate 1:1 Plan / Recommendations: Continue TPN while GI function is impaired; limit PO to small, easy to digest portions to help with healing and maintenance of gut integrity. Outside electrolyte and fluid replacement per primary team; NSS to make bauer es to TPN routinely M-, weekends per on-call. Naomie Nolan RD, LD, [facility] Office: [phone] [facility], [facility] Connect * India Hassan MD - 09/27/2020 8:35 AM CDT Associated Order(s): CONSULT INFECTIOUS DISEASES PHYSICIAN Infectious Diseases Initial Consult Today's Date: 09/27/2020 Admission Date: 09/26/2020 Reason for consultation: anastamotic leak Type: Co-Management w/Signed Orders Assessment: Colovesicular fistula s/p takedown partial cystectomy (09/04) Cystectomy leak with possible redeveloping fistula, adjacent abscess/uninoma () - 2011 diverticulitis c/b rectovaginal fistula - 12/2011 s/p sigmoidectomy, vaginal cuff repair ([facility], Dr. 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 Leal + Dr. Vargas) - 07/2013 s/p ventral hernia repair with panniculectomy - 09/2013 recurrentrectovaginalfistula, s/pdiverting transverse colostomy - 08/2014 s/p colostomy takedown --> c/banastomotic breakdown - 2015 s/p lapredoofcolorectal anastomosis - 2015 onwards --> persistentcolovesicular fistula, chronicfecaluria, dysuria - 06/28/20 admit [facility] septic shock, pyelo - 06/28 CT a/p - L 5-cm extrarenal pelvic abscess, air in ureter, dilated R urete r, colovesicular fistula - 06/29 s/p R PCN urine cx VRE (S dapto, Lz), B.thetaiotaomicron, C.glabrata (R f sagar, S taylor), anaerobes - 07/10 nephrostomy <100k C.parapsilosis (S fluc) - 07/10 urine cx >100k C.parapsilosis - 07/20-09/04 on ceftriaxone/flagyl/fluc (completed 2 wks taylor) - 09/04 s/p colovesicula fistula takedown, partial cystectomy - 09/11 CT a/p - anterior abdominal wall collection just under incision - 09/13 s/p IR drain placement, cx with VRE, PSAE, C.glabrata (R fluc) - 09/26 in colorectal clinic, feculant midline incision drainage - 09/26 CT bladder wall defect, contrast extravastation to rectal stump c/w blad edson leak probable colovesicular fistula MRSIlda CLABSI (09/08/20) - PICC removed, vancomycin x 7 days Recent C.diff (06/2020) HTN Hypothyroid Recommendations: 1. Switched PO linezolid to daptomycin 6 mg/kg/qd (ordered) 2. Added po flagyl 500 bid (ordered) 3. Continue cefepime 2q8 4. Continue micafungin 100 mg qd 5. Continue po vanc 125 bid (C.diff suppression) 6. Awaiting IR aspirate and cultures 7. Final abx plan yet TBD pending aspirate, cultures, clinical course India Hassan MD Division of Infectious Diseases pager [phone] History of Present Illness Beverly Torres is a 70 y.o. female with complicated diverticular abscess i n 2011 c/b rectovaginal fistula and sigmoidectomy with subsequent multiple color ectal, coloureteral fistulas, recently admitted 09/04-09/21 for planned colovesicul ar takedown, partial cystectomy, infected mesh excision and colectomy with colos corazon creation c/b incisional abscess on IV taylor/cefe/PO linezolid with plan for imaging next week, who is re-admitted 09/26 when seen routinely back in [facility] with feculent incisional drainage. Ms. Torres has complex -GI urologic hx: early 2011 with diverticular abscess s/ p sigmoidectomy. Developed rectovaginal fistula. 12/2011 s/p open sigmoidectomy, small bowel resection, repair of vaginal cuff in [place] at [facility] by Surya Leal. Surgery c/b Rureteral injurys/prepair of the Rureter with ureter oureterostomy(same day), thereafter developedureterocolonic fistula to the c olorectal anastomosis.Apr - July 2012 s/p [address] Leal + Dr. Vargas, s/ plaparotomy with lysis of adhesions, repair of small bowel, Rureteral reimpl antation,complex ventral hernia repairwhich was then c/bcomponent separati on and meshrequiringa panniculectomy 07/2013. 09/2013 recurrentrectovaginal fistula, s/pdiverting transverse colostomy; colostomy takedown 08/2014, c/ba nastomotic breakdown and requiring lapredoofcolorectal anastomosis.2015 onwards with persistentcolovesicular fistula with chronicfecaluria, dysuria. Dr. Leal recommended [facility] evaluation as felt to have exhausted surgical expertise of [place] at that time, she did not seek [facility] evaluation. 2019 wors ening bladder and lower abdominal spasms, and 12/2019 admitted [facility] in [place] with urosepsis requiring IV abx, transitioned to PO abx through February 2020 and was referred to colorectal surgery. Recurrent UTIs thereafter requiring short courses PO abx, yet anytime off abx w/ recurrent UTI. 05/22/[address] Martell, at which time discussed need of repeat c-scope and complex joint colon-urologic surgical repair, removal mesh. 06/[address] Rodriguez, at which ti me on amox/clav, completed shortly thereafter. Plan was for mid-June colonoscop y, however early June worsening back, lower abdominal pain. 06/20 [facility] care with dysuria, suprapubic pain, dysuria, fevers, myalgias, dc'd on ciprofloxacin, cx returned cipro-R E.coli switched to azithromycin (?). Symptoms worsened with acute on chronic watery diarrhea intermittently bloody, with abdominal pain and bloody discharge from chronic (since 2015) midline wound . 06/28 presented to [facility], at which time afebrile but tachyp minnie, tachycardic hypotensive (62/39) with leukocytosis (13.5-67%N) lactate vladimir l (1.3) and CT a/p with L-sided 5 cm extrarenal pelvic prominence c/w abscess, a ir in ureter/density with dilated R ureter extending to distended bladder with l arge amt of air and fecal debris and stool in bladder with colovesicular fistula ; she was started on vancomycin, meropenem. Attempt to place salomon unsuccessful due to thick fecal matter. She was transferred to MICU for urologic evaluatio n. C.diff returned positive, started on PO vancomycin and meropenem transitioned to ceftriaxone + flagyl for E.coli/empiric anaerobic pyelo in setting known (pr ior) colo-ureteral fistula; urology evaluated and recommended nephrostomies give n extensive distal fistula and stool burden, after placement with improving b/l flank and abdominal pain. Chronic diarrhea returned to normal. Multiple nephrost ketan + urine cx returned C. Glabrata, C. Parapsilosis, VRE, Bacteroides, Eggerth mery C.parapsilosis. discharged to [facility] on ceftriaxone/flagyl + po flucon azole to keep pyelo/abscess at bay, with plan for nutritional improvement strict NPO on TPN, and then proceed complex GI-uro surgery. 09/04-09/21 recently admitted for planned surgery, 09/04 s/p colovesical fistula felix edown, partial cystectomy, infected mesh excision and colectomy with colostomy c reation. NGT placed on 09/07 d/t ileus. 09/08 febrile, blood cx from PICC with Sta ph epi (ox-R), PICC removed tx 7 days vancomycin, 09/11 stopped rest of abx given doing well post-op. However next few days increasing leukocytosis, 09/11 CT a/p revealed anterior abdominal wall collection just under incision site, 09/13 s/p I R drain placement. cx with VRE, PSAE, C.glabrata (R fluc), transitioned to dapto /cefepime/metronidazole/micafungin for ~2w or until fluid collection resolved on imaging. SNF unable to take her on dapto, so switched to linezolid, and flagyl which stopped on 09/20 2/2 nausea. 09/24 called uro clinic reporting midline abdomi nal wound had dehisced with drainage, and 09/26 was seen in urology and colorecta l surgery clinics was noted to have midline incision with feculant drainage renuka g with light-brown HEMA drainage output also concerning feces. 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 Urology recommends against any uro intervention, plan to maintai n salomon to contain bladder leak and once clinically improved and bowel fistulas stabilized may need further uro surgery. Upon admit afebrile, mild leukocytosis improving from last admit (wbc 16.6 on 09/18->14.3 OA -> 11.9 today), Hgb stable, worsening thrombocytosis (638), Cr/LFT wnl, Rall=770 out overnight, today going to IR for abscess drain placement with cultures including anaerobic and fungal having been ordered. Antimicrobial Start date End date fluconazole 07/14 09/14 flagyl 07/03-09/11; 09/13 09/20 dapto 07/05-07/14; 09/15 active micafungin 07/03-07/14; 09/14 active Po vancomycin 07/14 active ceftriaxone 07/14 09/11 cefepime 09/13 active Estimated Creatinine Clearance: 59.3 mL/min (based on SCr of 0.81 mg/dL). Past Medical History Medical History: Diagnosis Date Colovesical fistula Diverticulitis Hypertension Hypoglycemia Hypothyroid PONV (postoperative nausea and vomiting) Rectovaginal fistula Right ureteral injury Sepsis (HCC) Past Surgical History Surgical History: Procedure Laterality Date HX SURGERY [...] 09/04/2020 Performed by Alexander Rodriguez MD at [facility] OR COLECTOMY WITH COLOPROCTOSTOMY AND COLOSTOMY - PARTIAL N/A 09/04/2020 Performed by Alexander Rodriguez MD at [facility] OR COLECTOMY WITH COLOPROCTOSTOMY AND COLOSTOMY - PARTIAL N/A 09/04/2020 Performed by Bran Martell DO at [facility] OR ABDOMEN SURGERY SECTION x 2 HX ROSARIO AND BSO Social History Martial status/area of residence: resides outside [place] with long-term partner, who recently was admitted to [facility] since early August with COVID-19 now with tr ach and on dialysis which she's very concerned/sad about 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 Review of Systems Constitutional: no fevers, no chills, unknown weight loss past 10 mos, fatigue w ith malaise HEENT: no mouth sores or sore throat, dentition is fine Neck: no pain or swelling Respiratory: no dyspnea, no cough Cardiovascular: no chest pain, no edema, no exertional dyspnea Gastrointestinal: abdominal pain, nausea, no vomiting, loose stools Genitourinary: no dysuria, no fecaluria, no malodorous or cloudy urine, pelvic p ain Hematologic/lymphatic: no lymph node swelling or pain Musculoskeletal: no myalgias, back pain, no effusions Neurological: no headache, generalized weakness non-focal Behavioral/Psych: denies current depression, anxiety over fiancee as above who h as covid Endocrine: denies diabetes Skin: no rash or skin lesions Wound as above Medications Scheduled Meds:buPROPion XL (WELLBUTRIN XL) tablet 150 mg, 150 mg, Oral, QDAY cefepime (MAXIPIME) 2 g in sodium chloride 0.9% (NS) 100 mL IVPB (MB+), 2 g, Int ravenous, Q8H* cetirizine (ZyrTEC) tablet 10 mg, 10 mg, Oral, QDAY enoxaparin (LOVENOX) syringe 40 mg, 40 mg, Subcutaneous, QDAY(21) gabapentin (NEURONTIN) capsule 300 mg, 300 mg, Oral, BID levothyroxine (SYNTHROID) tablet 50 mcg, 50 mcg, Oral, QDAY linezolid (ZYVOX) tablet 600 mg, 600 mg, Oral, BID methocarbamoL (ROBAXIN) tablet 750 mg, 750 mg, Oral, BID micafungin (MYCAMINE) 100 mg in sodium chloride 0.9% (NS) 100 mL IVPB (MB+), 100 mg, Intravenous, Q24H* naphazoline 0.025 % /pheniramine 0.3 % (NAPHCON-A) ophthalmic solution 1 drop, 1 drop, Both Eyes, QID ondansetron (ZOFRAN ODT) rapid dissolve tablet 4 mg, 4 mg, Oral, Q6H oxybutynin XL (DITROPAN XL) tablet 10 mg, 10 mg, Oral, QDAY pantoprazole DR (PROTONIX) tablet 40 mg, 40 mg, Oral, BID senna/docusate (SENOKOT-S) tablet 1 tablet, 1 tablet, Oral, BID vancomycin (FIRVANQ) oral solution 125 mg, 125 mg, Oral, BID Continuous Infusions: Adult Continuous Parenteral Nutrition (PN) dextrose 5 % & 0.45% NaCl infusion 75 mL/hr at 09/26/20 1909 PRN and Respiratory Meds:aluminum/magnesium hydroxide QID PRN, HYDROcodone/aceta minophen Q6H PRN, hyoscyamine Q4H PRN, polyethylene glycol 3350 BID PRN, simethi cone Q6H PRN Allergies Allergies Allergen Reactions Bactrim [Sulfamethoxazole-Trimethoprim] HIVES and ITCHING Blue Dye EDEMA Physical Examination Vital Signs: Last Vital Signs: 24 Hour Ran ge BP: 121/59 (09/27 08) Temp: 36.8 C (98.3 F) (09/27 722) Pulse: 75 (09/27 722) Respirations: 16 PER MINUTE (09/27 722) SpO2: 93 % (09/27 722) Height: 152.4 cm (60") (09/26 1550) BP: (87-127)/(48-86) Temp: [36.7 C (98 F)-37.1 C (98.7 F)] Pulse: [73-91] Respirations: [14 PER MINUTE-18 PER MINUTE] SpO2: [92 %-98 %] Gen: alert, oriented, NAD HENT: NC/AT, MMM no thrush Eyes: EOMi, conj pale not injected Neck: supple Lungs: diminished BS in bases, no rhonchi, nonlabored Heart: RRR, no murmur Abdomen: soft, ND, RLQ colostomy-liquid stools, L midline incision with 1 cm rou nd opening in mid-aspect with purulent drainage, no adjacent erythema, lower inc ision 2-3 cm wound to fat, no feculant output from either incision/wound, LLQ HEMA drain-serosanginous drainage in tube Msk: no synovitis or effusions of UE or LE joints Ext: no edema Skin: no rash, wound as above Lines: RUE PICC DL (09/12) - site unremarkable Drains/tubes: Salomon (09/04) L mid-abd Jvac (09/13) LLQ HEMA (09/04) RLQ colostomy Lab Review Hematology Recent Labs 09/26/20 1231 09/26/20 1858 09/27/20 0439 WBC 14.3* -- 11.9* HGB 9.6* -- 8.7* HCT 30.0* -- 27.3* PLTCT 778* -- 638* INR -- 1.2 -- Chemistry Recent Labs 09/26/20 1231 09/27/20 0439 NA 134* 137 K 4.3 4.3 CL 102 103 CO2 25 25 BUN 28* 22 CR 0.78 0.81 GFR >60 >60 GLU 111* 86 CA 9.5 8.6 PO4 -- 4.7* ALBUMIN 3.3* 2.9* ALKPHOS 150* 136* AST 26 22 ALT 30 25 TOTBILI 0.5 0.5 Microbiology, Radiology and other Diagnostics Review RADIOLOGY: reviewed MICRO: reviewed * Jhonatan Schultz MD - 09/26/2020 7:20 PM CDT Associated Order(s): CONSULT UROLOGY PHYSICIAN [facility] Urology Consult 09/26/2020 Patient: Beverly Torres Admission Date: 09/26/2020, LOS: 0 days Admission Diagnosis: Abdominal fluid collection [R18.8] Date of Service: September 26, 2020 Reason for Consult: "Bladder Leak" Referring Provider: Bran Martell DO Attending Surgeon: Dr. Alexander Rodriguez Consult Performed by: Jhonatan Schultz MD ASSESSMENT: 70 y.o. female with HTN, tobacco use, and a complex surgical history who presented to clinic today after undergoing an exploratory laparotomy, low a nterior resection, colostomy, resection of infected mesh, partial cystectomy, co mplex cystorrhaphy, and left ureteral stent placement and unfortunately appears to have developed multiple enterocutaneous fistulas with intra-abdominal leakage of succus as well as fistulization between her bladder, rectal stump, and vagin a and was therefore direct admitted to the colorectal service. At this point ti me, the bladder leak is contained, the patient's urine is clear yellow and her c atheter is draining well, and therefore no acute urologic intervention is indica otoniel. PLAN: -No acute urologic intervention at this time -Maintain Salomon catheter given contained bladder leak with concern for fistula o n CT, will address this at follow-up once patient has recovered from this acute episode and bowel fistulas have stabilized -Defer management of enterocutaneous fistulas/intraabdominal leakage of succus t o colorectal surgery service -Recommend Ditropan 10 mg XL daily and Levsin 0.125 mg every 4 hours as needed f or bladder spasms (ordered) -Urology will drop to standby status, please page urology floor covering contractor with stephaniea nakul questions or concerns Discussed with Dr. Rodriguez, who directed the plan of care. Thank you for consulting Urology. Jhonatan Schultz MD Urology PGY-4 Please page Urology floor covering contractor with any questions __ HPI: Beverly Torres is a 70 y.o. female with HTN, tobacco use, and a comp odalys surgical history who presents today after being direct admitted form clinic with concern for enterocutaneous and recurrent colovesical/vaginal fistula felicitas germain recently undergone an exploratory laparotomy, low anterior resection, colostom y, resection of infected mesh, partial cystectomy, complex cystorrhaphy, and lef t ureteral stent placement 09/04/20. The patient had a very complicated postoper ative course and was admitted for nearly 3 weeks. During that admission, she haynes d multiple episodes concerning for infection and therefore ID was consulted and has been managing her antibiotics. She also underwent drain placement for an int raabdominal fluid collection, and had a PICC line placed for initiation of TPN. The patient reports that soon after discharge she began to have drainage from he r midline wound and vagina that was initially clear but has become darker over t wenceslao. She also reports that she has had significant fatigue, malaise, and anorex ia/nausea. She reports that this drainage has worsened considerably and she is now having large amounts of green drainage from 2 openings, one at the superior aspect of her midline wound and the other one at the inferior aspect of it, as w ell as drainage from her vagina. Her catheter is not draining clear yellow and she has had issues with bladder spasms but denies other issues with her catheter . She saw colon and rectal surgery in clinic earlier today who were concerned that the patient has developed enterovaginal and enterocutaneous fistulas and obtain ed a CT scan which was concerning for intra-abdominal extravasation of bowel con tents with enterocutaneous fistula as well as a fistulous connection between the bladder, the rectal stump and the vagina. She was therefore direct admitted to the colorectal surgery service Medical History: Diagnosis Date Colovesical fistula Diverticulitis Hypertension Hypoglycemia Hypothyroid PONV (postoperative nausea and vomiting) Rectovaginal fistula Right ureteral injury Sepsis (HCC) Surgical History: Procedure Laterality Date HX SURGERY [...] 09/04/2020 Performed by Alexander Rodriguez MD at [facility] OR COLECTOMY WITH COLOPROCTOSTOMY AND COLOSTOMY - PARTIAL N/A 09/04/2020 Performed by Alexander Rodriguez MD at [facility] OR COLECTOMY WITH COLOPROCTOSTOMY AND COLOSTOMY - PARTIAL N/A 09/04/2020 Performed by Bran Martell DO at [facility] OR ABDOMEN SURGERY SECTION x 2 HX ROSARIO AND BSO Medications: Scheduled Meds:buPROPion XL (WELLBUTRIN XL) tablet 150 mg, 150 mg, Oral, QDAY cefepime (MAXIPIME) 2 g in sodium chloride 0.9% (NS) 100 mL IVPB (MB+), 2 g, Int ravenous, Q8H* [START ON 09/27/2020] cetirizine (ZyrTEC) tablet 10 mg, 10 mg, Oral, QDAY enoxaparin (LOVENOX) syringe 40 mg, 40 mg, Subcutaneous, QDAY(21) gabapentin (NEURONTIN) capsule 300 mg, 300 mg, Oral, BID levothyroxine (SYNTHROID) tablet 50 mcg, 50 mcg, Oral, QDAY linezolid (ZYVOX) tablet 600 mg, 600 mg, Oral, BID methocarbamoL (ROBAXIN) tablet 750 mg, 750 mg, Oral, BID micafungin (MYCAMINE) 100 mg in sodium chloride 0.9% (NS) 100 mL IVPB (MB+), 100 mg, Intravenous, Q24H* naphazoline 0.025 % /pheniramine 0.3 % (NAPHCON-A) ophthalmic solution 1 drop, 1 drop, Both Eyes, QID ondansetron (ZOFRAN ODT) rapid dissolve tablet 4 mg, 4 mg, Oral, Q6H pantoprazole DR (PROTONIX) tablet 40 mg, 40 mg, Oral, BID senna/docusate (SENOKOT-S) tablet 1 tablet, 1 tablet, Oral, BID vancomycin (FIRVANQ) oral solution 125 mg, 125 mg, Oral, BID Continuous Infusions: Adult Continuous Parenteral Nutrition (PN) dextrose 5 % & 0.45% NaCl infusion 75 mL/hr at 09/26/20 1909 PRN and Respiratory Meds:aluminum/magnesium hydroxide QID PRN, HYDROcodone/aceta minophen Q6H PRN, hyoscyamine Q4H PRN, polyethylene glycol 3350 BID PRN, simethi cone Q6H PRN Allergies: Bactrim [sulfamethoxazole-trimethoprim] and Blue dye Social History Socioeconomic History Marital status: Spouse name: Not on file Number of children: Not on file Years of education: Not on file Highest education level: Not on file Occupational History Not on file Tobacco Use Smoking status: Former Smoker Packs/day: 1.00 Years: 55.00 Pack years: 55.00 Types: Cigarettes Quit date: 05/15/2020 Years since quittin.3 Smokeless tobacco: Never Used Substance and Sexual Activity Alcohol use: Not Currently Drug use: Never Sexual activity: Not on file Other Topics Concern Not on file Social History Narrative Not on file No family history on file. Vitals: Vital Signs: Last Filed In 24 Hours Vital Signs: 24 Hour Range BP: 116/84 (09/27 1823) Temp: 36.8 C (98.2 F) (09/27 1823) Pulse: 91 (09/27 1823) Respirations: 18 PER MINUTE (09/27 1823) SpO2: 97 % (09/27 1823) Height: 152.4 cm (60") (09/26 1550) BP: (107-127)/(84-86) Temp: [36.7 C (98 F)-36.8 C (98.2 F)] Pulse: [84-91] Respirations: [18 PER MINUTE] SpO2: [97 %-98 %] Intake/Output: Intake/Output Summary (Last 24 hours) at 09/26/20201920 Last data filed at 09/26/2020 1855 Gross per 24 hour Intake Output 175 ml Net -175 ml Physical Exam: General: Alert, oriented, cooperative, no distress Head: Normocephalic, without obvious abnormality, atraumatic Eyes: EOMI, no scleral icterus Lungs: Unlabored on RA Heart: RRR, no m/g/r Abdomen: Healing midline incision with openings at the superior and inferior asp ect of the incision draining copious green liquid concerning for succus. Fascia appears to be intact at both of these points with no visible intestine. J-Vac drain in place draining copious dark green liquid consistent with succus. Salomon catheter in place draining clear yellow urine. Extremity: No clubbing, cyanosis, or edema Neurologic: Grossly intact. ROS: A complete review of systems was obtained and was negative except for the sympto ms reviewed above. Lab/Radiology/Other Diagnostic Tests: Recent Labs 09/26/20 1231 HGB 9.6* HCT 30.0* WBC 14.3* PLTCT 778* NA 134* K 4.3 CL 102 CO2 25 BUN 28* CR 0.78 GLU 111* CA 9.5 ALBUMIN 3.3* TOTPROT 8.3* TOTBILI 0.5 AST 26 ALT 30 ALKPHOS 150* Associated attestation - Alexander Rodriguez MD - 09/27/2020 4:23 PM CDT Please see my office note for 09/26/20 for further details. documented in this encounter Miscellaneous Notes * Case Mgmt DC Plan - Karlene Duong, [facility] [place] - 10/03/2020 12:56 PM CDT Case Management Progress Note NAME:Beverly Torres :1950 AGE: 70 y.o. ADMISSION DATE: 09/26/2020 DAYS ADMITTED: LOS: 7 days Todays Date: 10/03/2020 Plan D/C planning - [facility] - Transport by pt's daughter - Crystal - 1200 Interventions Support Info or Referral Discharge Planning SWCM attended team huddle. Pt is medically ready for d/c today. [facility] contacted the pt's daughter, Sarah. She can transport [facility] and should arrive by 1100. [facility] faxed d/c orders to the facility. SWCM called the facility. They can take the patient today. They would prefe r that the pt d/c on po Linezolid. Information shared with the team. [facility] sent updated orders with abx changes to facility. [facility] updated bedside nurse of d/c plan. Nurse report number [phone]. [facility] tasked KILN WORKER to deliver transfer packet to the bedside. Medication Needs Financial Legal Other Disposition Expected Discharge Date 10/03/2020 1:00 PM Transportation Next Level of Care (Acute Psych discharges only) Discharge Disposition Selected Continued Care - Discharged on 10/03/2020 Admission date: 09/26/2020 - Malathi munson disposition: Residential Facility [facility] Destination Coordination complete Service Provider Selected Services Address Phone Fax Patient Preferred [facility] [address], [place] [address] Karlene Duong LMSW [place] - [phone] * Care Plan - Marivel Luis RN - 10/03/2020 10:41 AM CDT Problem: Discharge Planning Goal: Participation in plan of care Outcome: Goal Achieved Goal: Knowledge regarding plan of care Outcome: Goal Achieved Goal: Prepared for discharge Outcome: Goal Achieved Problem: Infection, Risk of, Central Venous Catheter-Associated Bloodstream Infe ction Goal: Absence of CVC Associated Bloodstream infection Outcome: Goal Achieved Problem: Infection, Risk of, Urinary Catheter-Associated Urinary Tract Infection Goal: Absence of urinary catheter-associated infection Outcome: Goal Achieved Problem: Infection, Risk of Goal: Absence of infection Outcome: Goal Achieved Goal: Knowledge of Infection Control Procedures Outcome: Goal Achieved Problem: Pain Goal: Management of pain Outcome: Goal Achieved Goal: Knowledge of pain management Outcome: Goal Achieved Goal: Progress Toward Pain Management Goals Outcome: Goal Achieved Problem: High Fall Risk Goal: High Fall Risk Outcome: Goal Achieved Problem: Moderate Fall Risk Goal: Moderate Fall Risk Outcome: Goal Achieved Problem: Mobility/Activity Intolerance Goal: Maximize functional ADL's and mobility outcomes Outcome: Goal Achieved Problem: Self-Care Deficit Goal: Maximize ADL functioning Outcome: Goal Achieved Problem: Skin Integrity Goal: Skin integrity intact Outcome: Goal Achieved Goal: Healing of skin (Wound & Incision) Outcome: Goal Achieved Goal: Healing of skin (Pressure Injury) Outcome: Goal Achieved * Case Mgmt DC Plan - Christi [place] - 10/03/2020 8:50 AM CDT KILN WORKER Note: Printed and placed transfer packet with pt's chart in room per request from MIKAELA Davison. Christi [place] [employer]ated Truck Driver For additional assistance please contact [facility] *[phone] * Case Mgmt DC Plan - Karlene Duong LMSW - 10/02/2020 10:31 AM CDT Case Management Progress Note NAME:Beverly Torres :1950 AGE: 70 y.o. ADMISSION DATE: 09/26/2020 DAYS ADMITTED: LOS: 6 days Todays Date: 10/02/2020 Plan D/C planning ongoing - SNF [facility] Interventions Support Info or Referral Discharge Planning JILLIAN read EMR. New abx Meropenem. IV abx must have insurance carve out prio r to SNF taking the patient. [facility] contacted Lisa at [facility]. They are starting the insurance carve out t shwetha. They have insurance authorization approved through today to take the dasia ent, but will have to wait on insurance carve out before admitting the patient. MIKAELA spoke with the patient. She does not have funds to help over the abx co sts but would like to d/c back to [facility]. She was happy with their care there . She does JILLIAN connected with Infectious disease team - there is no alternative at this time to that medication for the patient. MIKAELA called Lisa at [facility] to update her that the patient will need Merop enem at d/c. JILLIAN left her a message with that information. JILLIAN notified by Lisa at [facility] that they have approval to take the pt wit h her IV abx - including Dapto if it would be best for the pt. Insurance has al so extended authorization for the patient through 10-03-20. Pt will need to be a dmitted prior to 4pm on 10-03-20. [facility] notified the team. [facility] called the pt's daughter, Sarah - [phone]. Sarah can transport h er mother to the SNF tomorrow if needed. [facility] will update pt's daughter tomorro w morning regarding medical stability. Pt updated the patient on SNF acceptance and insurance approval. Will con't to follow. Medication Needs Financial Legal Other Disposition Expected Discharge Date 10/03/2020 4:00 PM Transportation Next Level of Care (Acute Psych discharges only) Discharge Disposition Selected Continued Care - Admitted Since 09/26/2020 [facility] Destination Coordination complete Service Provider Selected Services Address Phone Fax Patient Preferred [facility] [address], [place] [address] [phone] Karlene Duong LMSW Voalte - [phone] * Case Mgmt DC Plan - Jessica Hooks LMSW - 10/01/2020 10:08 AM CDT Case Management Progress Note NAME:Beverly Torres :1950 AGE: 70 y.o. ADMISSION DATE: 09/26/2020 DAYS ADMITTED: LOS: 5 days Todays Date: 10/01/2020 Plan Pt will discharge to [facility] pending insurance authori zation and medical stability Interventions SW received call from medical team that patient is stable for d/c. JILLIAN shared with team that patient needs a COVID test STAT or they will be unable to admit to the facility. JILLIAN spoke with Lisa from the facility @ [phone]-they are able to admit patient this afternoon pending negative covid test as they are less than 2 weeks post second covid vaccine. Awaiting COVID 19 test results and d/c orders. SW contacted patient's son Aleksey @11:10am to alert him to the potential d/c and need for transportation pending COVID test results. JILILAN outreached Daughter Sarah @ 11:50am [phone]. and LVM to provide update per request from primary SW. UPDATE: Sw spoke with Aleksey via phone @12:25p, he is checking with his sisters to see wh o can transport their mother to the facility. They share they live almost 3 hour s away so it will take some time for them to get here. JILLIAN will plan to call the facility to see if patient can be taken in the evening. Per chart review COVID 19 test has not yet resulted and that would be needed jalyn or to d/c. UPDATE: JILLIAN spoke with Lisa at the facility and provided the update from ID regarding th e change to Meropenem for IV abx. Per ID if she cannot go on the Meropenem q8h s he would be unsafe to d/c today. SW spoke with the facility and they will have t o do a carve out with the insurance to cover the cost of the IVABX so they will be unable to accept patient today. JILLIAN outreached Primary medical team to provide update, they are in agreement and will hold the d/c. JILLIAN outreached ID and shared the information. JILLIAN received call from patient's daughter Sarah and provided her an update on th e held d/c for patient to not leave today. Sarah verbalized understanding and a greement and will update her brother Aleksey. Primary SW Karlene will f/u Friday. Support Info or Referral Discharge Planning Medication Needs Financial Legal Other Disposition Expected Discharge Date 10/02/2020 4:00 PM Transportation Next Level of Care (Acute Psych discharges only) Discharge Disposition Selected Continued Care - Admitted Since 09/26/2020 [facility] Destination Coordination complete Service Provider Selected Services Address Phone Fax Patient Preferred [facility] [address] [place] [address] * Case Mgmt DC Chris - Amelia Jean Baptiste - 09/30/2020 9:39 AM CDT Case Management Progress Note NAME:Beverly Torres :1950 AGE: 70 y.o. ADMISSION DATE: 09/26/2020 DAYS ADMITTED: LOS: 4 days Todays Date: 09/30/2020 Plan Pt will discharge to [facility] SNF pending insurance authori zation and medical stability. Interventions Support Info or Referral Discharge Planning JILLIAN contacted [employer] to follow up on insurance authorization. Medicare st sierra took SW's contact information and agreed to have someone callback. Update as of 10:30am - SW received call from Yady georges/ Mauricio. She reports authoriz atmiguel has been approved (#[id number]) and expires Friday. SW contacts team. Pt is not stable for discharge Friday. SW asks team to let h er know if pt will be here through the as pt's insurance authorization e xpires Friday. SW is contacted by Lisa haq. JILLIAN reports team has just informed her pt i s not stable for discharge. Not sure if this will be the case Friday. Lisa huff contact info for Friday SW team. Also reports they will need COVID test res ults as pt completed final COVID vaccine less than two weeks ago. Medication Needs Financial Legal Other Disposition Expected Discharge Date 10/01/2020 12:00 PM Transportation Next Level of Care (Acute Psych discharges only) Discharge Disposition Selected Continued Care - Admitted Since 09/26/2020 [facility] Destination Coordination complete Service Provider Selected Services Address Phone Fax Patient Preferred [facility] [address], [place] [address] Amelia Jean Baptiste [facility] *[phone] * Case Mgmt DC Plan - Karlene Duong LMSW - 09/29/2020 10:40 AM CDT Weekend Needs of SW Instructions for [facility] W/E Staff: Please confirm with the team that the pt is me dically stable for d/c. Page - [phone]. If stable please call [employer] to amador carrasco on auth status - [phone]. If auth approved please contact facility - Shaheed rocio - [phone] to arrange admit time. Nurse report number [phone]. F ax d/c orders to [phone]. Pt's family to transport - Aleksey Torres - . Please also updated pt's daughter regarding d/c plan. Thank you! Case Management Progress Note NAME:Beverly Torres :1950 AGE: 70 y.o. ADMISSION DATE: 09/26/2020 DAYS ADMITTED: LOS: 3 days Todays Date: 09/29/2020 Plan D/C planning ongoing - [facility] Interventions Support Info or Referral Discharge Planning JILLIAN attended team huddle. The pt will likely be medically ready for d/c on 09-30-20. [facility] sent updates to SNF - [facility]. They have a bed av ailable at d/c. They have submitted for authorization. Patient will be d/c on Linezolid. They have the ability to admit the pt over the weekend. Contact the community service coordinator on her cell phone - Lisa - [phone]. Nurse report is [phone]. [facility] contacted the team to make sure it was okay for the pt's family to trans port her to the facility. [facility] called the pt's daughter, Sarah and left her a message to discuss d/c p [facility] - [phone]. Spoke with the pt's daughter, Sarah. She cannot transport her mother on Fri ur but her brother, Aleksey Torres will be available. His phone number is . Facility contacted [facility] regarding Linezolid asking how the medication had to be administered. Per Infectious Disease the Linezolid will administered po. Fa cility updated. called [employer] - [phone] - spoke with Garett gamez is pending an d they are reviewing the claim now - reference number - [id number] Per team pt can be transported by family to the facility. [facility] updated pt on d/c plan. She is happy with the plan. Medication Needs Financial Legal Other Disposition Expected Discharge Date 09/30/2020 12:00 PM Transportation Next Level of Care (Acute Psych discharges only) Discharge Disposition Selected Continued Care - Admitted Since 09/26/2020 [facility] Destination Coordination complete Service Provider Selected Services Address Phone Fax Patient Preferred [facility] [address], [place] [address] [phone] Karlene Duong LMSW Voalte - [phone] * Case Mgmt DC Plan - Christi Mayfield - 09/28/2020 10:22 AM CDT Request for Benefits Received request from MIKAELA Davison to check SNF benefits for patient. SNF Benefits: Elite PPO Plan 100 days allowed per benefit period; 0 days utilized. Days 1-20 $0.00 co-pay/day Days 21-100 $184.00 co-pay/day Max OOP:$5,000 Pt has met: $5,000 Covered at 100% Call Reference # [id number] Christi Mayfield [employer] For further assistance please contact [facility] *[phone] * Case Mgmt DC Plan - Karlene Duong LMSW - 09/28/2020 10:15 AM CDT Case Management Progress Note NAME:Beverly Torres :1950 AGE: 70 y.o. ADMISSION DATE: 09/26/2020 DAYS ADMITTED: LOS: 2 days Todays Date: 09/28/2020 Plan D/C planning ongoing - SNF Interventions Support Info or Referral Discharge Planning Per team pt got IR drain. Has Dapto now. May need it on D/C, but unsure how long she will need it. D/C pending culture results. The earliest d/c date will be 09-29-20. [facility] sent referral to [facility] in [place] per the pt's request to return there . JILLIAN called and left a message for admissions at [facility] - [phone] to d capriceuss the referral and potential d/c date. Spoke with Lisa - food service coordinator - [phone] - she is going to re view the referral and will contact the SW if there are any concerns with being able to take the patient due to medication etc. If there are no issues she will start auth. Other contact at [facility] is Abigail. MIKAELA received call from Lisa at [facility]. She wondered if the patient could have her Daptomycin switched to Linezolid as it was for her last SNF admission. MIKAELA reached out to Infectious Disease to see if this is possible. Medication Needs Financial Legal Other Disposition Expected Discharge Date 09/29/2020 12:00 PM Transportation Next Level of Care (Acute Psych discharges only) Discharge Disposition Selected Continued Care - Admitted Since 09/26/2020 No services have been selected for the patient. Karlene Duong LMSW Voalte - [phone] * Care Plan - Marivel Zapata RN - 09/28/2020 4:39 AM CDT Problem: Discharge Planning Goal: Participation in plan of care Outcome: Goal Ongoing Goal: Knowledge regarding plan of care Outcome: Goal Ongoing Goal: Prepared for discharge Outcome: Goal Ongoing Flowsheets (Taken 09/28/2020 0439) Prepared for discharge: Provide safe use medical equipment education Problem: Infection, Risk of, Central Venous Catheter-Associated Bloodstream Infe ction Goal: Absence of CVC Associated Bloodstream infection Outcome: Goal Ongoing Problem: Infection, Risk of, Urinary Catheter-Associated Urinary Tract Infection Goal: Absence of urinary catheter-associated infection Outcome: Goal Ongoing Problem: Infection, Risk of Goal: Absence of infection Outcome: Goal Ongoing Flowsheets (Taken 09/28/2020 0439) Absence of infection: Assess for infection (Monitor SIRS Criteria) Monitor for signs and symptoms of infection Implement prevention measures as indicated Problem: Pain Goal: Management of pain Outcome: Goal Ongoing * Procedures (Immed Post or Bedside) - Roddy Morelos DO - 09/27/2020 4:21 PM CDT Immediate Post Procedure Note Date: 09/27/2020 Attending Physician: MD Nena Performing Provider: Roddy Morelos DO Consent: Consent obtained from patient. Time out performed: Consent obtained, correct patient verified, correct procedur e verified, correct site verified, patient marked as necessary. Pre/Post Procedure Diagnosis: RLQ fluid collection Indications: RLQ fluid collection Procedure(s): US Guided fluid collection drain placement Findings: Successful placement of a drain in a RLQ fluid collection Estimated Blood Loss: None/Negligible Specimen(s) Removed/Disposition: Yes, sent to pathology Complications: None Patient Tolerated Procedure: Well Post-Procedure Condition: stable Roddy Morelos DO * Case Mgmt DC Plan - Karlene Duong LMSW - 09/27/2020 12:36 PM CDT Case Management Progress Note NAME:Beverly Torres :1950 AGE: 70 y.o. ADMISSION DATE: 09/26/2020 DAYS ADMITTED: LOS: 1 day Todays Date: 09/27/2020 Plan Assessment - please see previous assessment dated 09-05-20 below. Pt was admitted from a post-op appointment visit. Pt was staying at [facility] and had been at that facility since her d/c from [facility] on 09-21-20. Pt stated that she has been away from her home for several months due to her health. She has had an ICU stay, d/c to to [facility], back to the hospital f or surgery and d/c again to [facility]. Pt reports being happy with her care at [facility]. Pt reports that her daughter, Sarah can transport her at d/c. Pt states that she takes Wellbutrin to help her with her depression but repor otoniel that she feels very overwhelmed at this time. She feels discouraged due to her health and overwhelmed by what needs to be done while she is in the hospital . She was to be in July to her fiance but he has contacted [facility] and is currently hospitalized at [facility] in [place], [place]. He is not doing well and has been in the hospital for a a prolonged period. Patient is open to a ps [facility] consult while she is here to assist her with coping. Pt is open to returning to [facility] SN[facility] at d/c for additional strengthening i f needed. Will con't to follow. Interventions Support Info or Referral Discharge Planning Medication Needs Financial Legal Other Disposition Expected Discharge Date 09/29/2020 Transportation Next Level of Care (Acute Psych discharges only) Discharge Disposition Selected Continued Care - Admitted Since 09/26/2020 No services have been selected for the patient. Karlene Duong [facility] Vo[facility]te - [phone] Case Management Admission Assessment NAME:Beverly Torres MRN: [id number] :1950 AGE: 70 y.o. ADMISSION DATE: 09/04/2020 DAYS ADMITTED: LOS: 1 day Todays Date: 09/05/2020 Source of Information: Pt, EMR, Huddle Plan Plan: Case Management Assessment, Assist PRN with /NCM Services, Discharge [place] nning for Home with Post-Acute Care Needs, Discharge Planning for Post-Acute Fac ility -NCM met pt and her sister Katelin/Katelin's spouse at bedside. Pt consents to asses sment with her family present. -NCM introduced self, explained role of CM, confirmed pt demographics and provid ed contact information. -Pt lives in a single level home with no steps with her fiance who is currently in [facility] on a vent with [employer]. -Pt repts she admitted from [facility] post acute facility and plans to return. -Discussed plan of discharge with pt. -CM will continue to follow for possible pt needs. Patient Address/Phone [address] [phone] (home) Emergency Contact Extended Emergency Contact Information Primary Emergency Contact: Sarah Cowan Relation: Daughter Secondary Emergency Contact: Phil Canela Relation: Significant Other Healthcare Directive Healthcare Directive: Yes, patient has a healthcare directive Location of Healthcare Directive: Current and verified in document scanning syst em Would patient like to fill out a (a new) Healthcare Directive?: No, patient decl ined Transportation Does the patient need discharge transport arranged?: Yes Does the patient use Medicaid Transportation?: No Expected Discharge Date 09/10/2020 2:00 PM Living Situation Prior to Admission Living Arrangements Type of Residence: senior care facility Living Arrangements: Spouse/significant other(Maria De Jesus is currently in [facility] on a ventilator [facility].) Bathroom Shower / Tub: Tub/Shower Unit How many levels in the residence?: 1 Can patient live on one level if needed?: Yes Does residence have entry and/or side stairs?: No Assistance needed prior to admit or anticipated on discharge: Yes Who provides assistance or could if needed?: [facility] acute care facility. 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 Financial Resources Coverage Primary Insurance: Medicare Replacement Secondary Insurance: No insurance Additional Coverage: RX(Pt fills scripts at [facility] on [address] and reports low copays.) Source of Income Source Of Income: Employed Financial Assistance Needed? [facility]. Psychosocial Needs Mental Health Mental Health History: In the past Substance Use History Substance Use History Screen: In the past Comment: Pt quit smoking 4 mos ago. Other na Current/Previous Services PCP Geraldo Mcknight, , Pharmacy [address] PREMA Francois - [address] [place] [address] [facility] [id number] [place] [id number] Durable Medical Equipment Durable Medical Equipment at home: Rollator(Walker belonged to her mother.) Home Health Receiving home health: In the past Agency name: [facility] Would patient use this agency again?: Yes Hemodialysis or Peritoneal Dialysis Undergoing hemodialysis or peritoneal dialysis: No Tube/Enteral Feeds Receive tube/enteral feeds: No Infusion Receive infusions: In the past Where: Home Infusion company: [facility] Would patient use this agency again?: Yes Private Duty Private duty help used: No Home and Community Based Services Home and community based services: No Sixto White Sixto White: N/A Hospice Hospice: No Outpatient Therapy PT: No OT: No THROUGH OPERATOR: No Residential Facility/Half-Way SNF: Yes When did patient receive care?: until admission Name of Facility: [facility] Would patient return for future services?: Yes NH: No Inpatient Rehab IPR: No Long-Term Acute Care Hospital LTACH: No Acute Hospital Stay Acute Hospital Stay: In the past Was patient's stay within the last 30 days?: No Gini Jeffrey RN BSN, [facility] Nurse Whip Sawyer Pager: [phone] * Care Plan - Rere Lopez RN - 09/27/2020 6:48 AM CDT Problem: Discharge Planning Goal: Participation in plan of care Outcome: Goal Ongoing Flowsheets (Taken 09/27/2020 0648) Participation in Plan of Care: Involve patient/caregiver in care planning decisi on making Goal: Knowledge regarding plan of care Outcome: Goal Ongoing Flowsheets (Taken 09/27/2020 0648) Knowledge regarding plan of care: Provide procedural and treatment education Provide infection prevention education Provide VTE signs and symptoms education Provide plan of care education Provide fall prevention education Provide medication management education Goal: Prepared for discharge Outcome: Goal Ongoing Problem: Infection, Risk of, Central Venous Catheter-Associated Bloodstream Infe ction Goal: Absence of CVC Associated Bloodstream infection Outcome: Goal Ongoing Flowsheets (Taken 09/27/2020 0648) Absence of CVC associated bloodstream infection: Assess for central line catheter infection (Monitor SIRS criteria) Manage central venous catheter Follow central line bundle components Problem: Infection, Risk of, Urinary Catheter-Associated Urinary Tract Infection Goal: Absence of urinary catheter-associated infection Outcome: Goal Ongoing Flowsheets (Taken 09/27/2020 0648) Absence of urinary catheter-associated infections: Manage urinary catheter Assess for signs and sypmtoms of catheter-associated urinary tract infection Provide patient/family education on CAUTI prevention Problem: Infection, Risk of Goal: Absence of infection Outcome: Goal Ongoing Flowsheets (Taken 09/27/2020 0648) Absence of infection: Assess for infection (Monitor SIRS Criteria) Administer pharmacological therapies as ordered Monitor for signs and symptoms of infection Implement prevention measures as indicated Goal: Knowledge of Infection Control Procedures Outcome: Goal Ongoing Flowsheets (Taken 09/27/2020 0648) Knowledge of Infection Control procedures: Provide Isolation Precautions Educati on Problem: Pain Goal: Management of pain Outcome: Goal Ongoing Flowsheets (Taken 09/27/2020647) Management of pain: Complete pain assessment scale according to age, condition and ability to under stand. In the patient who can fully report pain, assess pain characteristics. In the patient who cannot fully report, observational (behavior) tools are appr opriate. Manage pain. Assess opioid analgesia side-effects. Assess pain control barriers. Goal: Knowledge of pain management Outcome: Goal Ongoing Flowsheets (Taken 09/27/2020 0648) Knowledge of pain management: Provide pain scale education Provide pharmacological pain management education Provide pain management methods education Goal: Progress Toward Pain Management Goals Outcome: Goal Ongoing Flowsheets (Taken 09/27/2020647) Progress toward pain management goals: Progress toward pain management goals Assess progress toward pain management goals documented in this encounter Plan of Treatment [...] Procedure Name Priority Date/Time Associated Diag nosis CULTURE-BLOOD Routine 10/03/2020 W/SENSITIVITY 10:10 AM CDT POC GLUCOSE 10/03/2020 7:45 AM CDT HC CBC,AUTOMATED Routine 10/03/2020 3:30 AM CDT HC PHOSPHOROUS, SERUM Routine 10/03/2020 3:30 AM CDT HC MAGNESIUM Routine 10/03/2020 3:30 AM CDT HC BASIC METABOLIC PANEL Routine 10/03/2020 3:30 AM CDT POC GLUCOSE 10/03/2020 3:20 AM CDT POC GLUCOSE 10/02/2020 7:[address] ABD/PELV W CONTRAST STAT 10/02/2020 5:29 PM CDT POC GLUCOSE 10/02/2020 4:46 PM CDT POC GLUCOSE 10/02/2020 11:59 AM CDT POC GLUCOSE 10/02/2020 8:24 AM CDT HC CBC,AUTOMATED Routine 10/02/2020 4:15 AM CDT HC PHOSPHOROUS, SERUM Routine 10/02/2020 4:15 AM CDT HC MAGNESIUM Routine 10/02/2020 4:15 AM CDT HC BASIC METABOLIC PANEL Routine 10/02/2020 4:15 AM CDT POC GLUCOSE 10/02/2020 3:24 AM CDT POC GLUCOSE 10/01/2020 11:28 PM CDT POC GLUCOSE 10/01/2020 11:49 AM CDT COVID-19 (SARS-COV-2) PCR STAT 10/01/2020 11:15 AM CDT POC GLUCOSE 10/01/2020 7:24 AM CDT POC GLUCOSE 10/01/2020 4:42 AM CDT HC CBC,AUTOMATED Routine 10/01/2020 4:38 AM CDT HC PHOSPHOROUS, SERUM Routine 10/01/2020 4:38 AM CDT HC MAGNESIUM Routine 10/01/2020 4:38 AM CDT HC BASIC METABOLIC PANEL Routine 10/01/2020 4:38 AM CDT POC GLUCOSE 09/30/2020 11:07 PM CDT POC GLUCOSE 09/30/2020 4:25 PM CDT POC GLUCOSE 09/30/2020 11:33 AM CDT HC CBC,AUTOMATED Routine 09/30/2020 4:19 AM CDT HC PHOSPHOROUS, SERUM Routine 09/30/2020 4:19 AM CDT HC MAGNESIUM Routine 09/30/2020 4:19 AM CDT HC BASIC METABOLIC PANEL Routine 09/30/2020 4:19 AM CDT POC GLUCOSE 09/29/2020 5:24 PM CDT POC GLUCOSE 09/29/2020 12:43 PM CDT HC CBC,AUTOMATED Routine 09/29/2020 4:05 AM CDT HC PHOSPHOROUS, SERUM Routine 09/29/2020 4:05 AM CDT HC MAGNESIUM Routine 09/29/2020 4:05 AM CDT HC BASIC METABOLIC PANEL Routine 09/29/2020 4:05 AM CDT POC GLUCOSE 09/28/2020 10:15 PM CDT POC GLUCOSE 09/28/2020 4:59 PM CDT POC GLUCOSE 09/28/2020 11:29 AM CDT POC GLUCOSE 09/28/2020 8:07 AM CDT POC GLUCOSE 09/28/2020 3:57 AM CDT HC CBC,AUTOMATED Routine 09/28/2020 3:30 AM CDT HC PHOSPHOROUS, SERUM Routine 09/28/2020 3:30 AM CDT HC MAGNESIUM Routine 09/28/2020 3:30 AM CDT HC BASIC METABOLIC PANEL Routine 09/28/2020 3:30 AM CDT POC GLUCOSE 09/27/2020 9:43 PM CDT POC GLUCOSE 09/27/2020 5:17 PM CDT CULTURE-FUNGAL,OTHER Routine 09/27/2020 4:19 PM CDT GRAM STAIN Routine 09/27/2020 4:19 PM CDT CULTURE-WOUND/TISSUE/FLUI Routine 09/27/2020 D(AEROBIC 4:19 PM CDT ONLY)W/SENSITIVITY CULTURE-ANAEROBIC Routine 09/27/2020 4:19 PM CDT IR ABDOMINAL DRAIN Routine 09/27/2020 PLACEMENT 4:15 PM CDT POC GLUCOSE 09/27/2020 11:16 AM CDT POC GLUCOSE 09/27/2020 7:23 AM CDT HC CBC,AUTOMATED Routine 09/27/2020 4:39 AM CDT HC TRIGLYCERIDE Routine 09/27/2020 4:39 AM CDT HC PHOSPHOROUS, SERUM Routine 09/27/2020 4:39 AM CDT HC MAGNESIUM Routine 09/27/2020 4:39 AM CDT HC CK(CPK OR CREATINE Add on 09/27/2020 KINASE) 4:39 AM CDT HC COMPREHENSIVE Routine 09/27/2020 METABOLIC PANEL 4:39 AM CDT POC GLUCOSE 09/26/2020 10:22 PM CDT COVID-19 (SARS-COV-2) PCR Routine 09/26/2020 6:59 PM CDT HC PT(INR) Routine 09/26/2020 6:58 PM CDT documented in this encounter Results * CULTURE-BLOOD W/SENSITIVITY (10/03/2020 10:10 AM CDT) Battery Name BLOOD CULTURE MAIN LAB Report Status FINAL 10/09/2020 MAIN LAB Specimen BLOOD RIGHT PICC LINE MAIN LAB Description Special NONE MAIN LAB Requests Culture NO GROWTH 5 DAYS MAIN LAB Specimen Blood - Blood,Line Draw Performing Organization Address [facility]/ZIP Code P sid Number MAIN LAB [id number] [place] [address] * POC GLUCOSE (10/03/2020 7:45 AM CDT) Glucose, POC 125 (H) 70 - 100 MG/DL MAIN LAB Specimen Performing Organization Address City/[facility]/ZIP Code P sid Number MAIN LAB [id number] [place] [address] * PHOSPHORUS (10/03/2020 3:30 AM CDT) Phosphorus 3.4 2.0 - 4.5 MG/DL MAIN LAB Specimen Blood Performing Organization Address [facility] Hospital/[facility]/ZIP Code P sid Number MAIN LAB [address] [place] [address] * MAGNESIUM (10/03/2020 3:30 AM CDT) Magnesium 2.4 1.6 - 2.6 mg/dL [facility] MAIN [facility] Specimen Blood Performing Organization Address City/State/ZIP Code P sid Number [facility] MAIN LAB [address] [place] [address] * CBC (10/03/2020 3:30 AM CDT) White Blood 11.0 4.5 - 11.0 K/UL [facility] MAIN [facility] Cells RBC 3.24 (L) 4.0 - 5.0 M/UL [facility] Hemoglobin 9.1 (L) 12.0 - 15.0 GM/DL [facility]IN [facility] Hematocrit 28.7 (L) 36 - 45 % [facility] MCV 88.4 80 - 100 FL [facility]IN [facility] MCH 28.0 26 - 34 PG [facility]IN [facility] MCHC 31.7 (L) 32.0 - 36.0 G/DL [facility] RDW 17.5 (H) 11 - 15 % [facility] Platelet Count 443 (H) 150 - 400 K/UL [facility] MPV 7.6 7 - 11 FL [facility] MAIN [facility] Specimen Blood Performing Organization Address City/[facility] P sid Number [facility] MAIN LAB [address] [place] [address] * BASIC METABOLIC PANEL (10/03/2020 3:30 AM CDT) Pathologist [facility] Sodium 137 137 - 147 MMOL/L [facility]IN [facility] Potassium 4.1 3.5 - 5.1 MMOL/L [facility]IN [facility] Chloride 104 98 - 110 MMOL/L [facility] CO2 25 21 - 30 MMOL/L [facility] Anion Gap 8 3 - 12 [facility] Glucose 93 70 - 100 MG/DL [facility] Blood Urea 28 (H) 7 - 25 MG/DL [facility]IN [facility] Nitrogen Creatinine 0.87 0.4 - 1.00 MG/DL [facility] Calcium 8.7 8.5 - 10.6 MG/DL [facility]IN [facility] eGFR Non >60 >60 mL/min [facility] Comment: [place] The eGFR is not validated f or use in drug dosing adjustments. Continue to use estimated creatinine clearance per dosing reference text. Please contact the Clinical Pharmacist for questions. eGFR >60 >60 mL/min [facility] MAIN [facility] [place] Comment: The eGFR is not validated for use in drug dosing adjustments. Continue to use estimated creatinine clearance per dosing reference text. Please contact the Clinical Pharmacist for questions. Specimen Blood Performing Organization Address City/State/ZIP Code P sid Number MAIN LAB [address] [place] [address] * POC GLUCOSE (10/03/2020 3:20 AM CDT) Glucose, POC 112 (H) 70 - 100 MG/DL [facility] MAIN [facility] Specimen Performing Organization Address City/[facility]/ZIP Code P sid Number [facility] MAIN LAB [address] [place] [address] * POC GLUCOSE (10/02/2020 7:38 PM CDT) Glucose, POC 99 70 - 100 MG/DL MAIN LAB Specimen Performing Organization Address [facility] P sid Number MAIN LAB [address] [place] [address] * CT ABD/PELV W CONTRAST (10/02/2020 5:29 PM CDT) Specimen Impressions Performed At 1. Percutaneous drain remaining within the anterior abdominal wall [facility] extraperitoneal fluid collection, which is mildly decreased in size, with previously described fistulous connecti on unable to be evaluated in the absence of oral contrast. 2. Persistent right ventral abdominal wall fluid and gas collection associated with the right rectus muscle, likely ev olving intramuscular hematoma, with interval placement of a percutaneous dr garcia in a component of the collection which is walled off and slightly decrea sed in size. Surrounding this collection there is an additional fluid collection which has not significantly changed in size and likely does not communicate wi th the recently placed percutaneous drain. Of note, there does appear to be a thin communication between the apparent evolving intramuscular hematom a and the previously described with anterior abdominal wall extraperitoneal fluid collection which also contains a percutaneous drain. 3. 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 4. Indwelling left nephroureteral caitlyn nt, without hydronephrosis. 5. Prior low anterior resection and r ight abdominal colostomy. No bowel obstruction or pneumoperitoneum. 6. Cholelithiasis. Gallbladder is aga in dilated which is likely related to recent fasting, with no gallbladder wal l thickening, pericholecystic fluid/stranding, or additional CT findi ngs to increase likelihood for acute cholecystitis. 7. Unchanged large left ventral abdom inal wall hernia containing normal caliber large and small bowel loops. 8. Redemonstration of multiple bibasi lar pulmonary nodules, nonspecific. Follow-up chest CT in one year is recom mended to show longer-term stability in a patient with reported smoking history. By my electronic signature, I attest th at I have personally reviewed the images for this examination and formulated the interpretations and opinions expressed in this report Finalized by Bran Estrada M.D. on 10/02/2020 6:32 PM. Dictated by Yobani Oleary MD on 10/02/2020 5:43 PM. Narrative Performed At CT ABDOMEN AND PELVIS [facility] Clinical Indication: Assess size of f luid collection status post drain. Technique: Multiple contiguous axial images were obtained through the abdomen and pelvis following the administration of IV contrast material. Post processing coronal and sagittal reconstruction keyshawn ges were made from the axial images. IV contrast: Yes Bowel contrast: None Comparison: CT abdomen pelvis 09/26/2020 . FINDINGS: Lower Thorax: Heart is normal in size w ithout significant pericardial effusion. No pleural effusion. Mild bibasilar, pr imarily dependent atelectasis. Tortuous descending thoracic aorta. Stable appea corine of multiple bibasilar small pulmonary nodules, better evaluated and further discussed on CT chest from September 12, 2020. Liver and Biliary system: Mild hepatome lorena. No focal hepatic lesion. Gallbladder is again dilated with layer ing gallstones. No gallbladder wall thickening or pericholecystic fluid or stranding. No intra or extra hepatic biliary ductal dilatation. Major portal veins are patent. Spleen: Unremarkable. Adrenal Glands and Kidneys: Unremarkabl e right adrenal gland. Unchanged left renal nodule, reportedly previously lef t adrenal adenoma. No hydronephrosis. Left nephroureteral stent. Unchanged le ft inferior pole renal cyst. Pancreas and Retroperitoneum: Pancreas unremarkable. No retroperitoneal lymphadenopathy. Aorta and Major Vessels: Abdominal aort a is normal in caliber with mild scattered calcific atherosclerosis. Bowel, Mesentery and Peritoneal space: Prior low anterior resection with right abdominal end colostomy is again noted. Large and small bowel loops are normal caliber. Redemonstration of anterior ab dominal extraperitoneal collection with percutaneous drain centered within the collection which measures approximately 9 cm transverse by 1.8 cm AP (series 2 im ages 55 and 60), previously 10.3 x 2.3 cm on prior exam when measured in similar fashion. The collection again extends superiorly within the midline abdominal wall and adjacent to the anterior inferior aspect of the left lobe of the liver. Numerous small bowel loops are closely apposed to this collection. No significant abdominal ascites. Pelvis: Salomon catheter within a nondila otoniel urinary bladder, with nondependent gas. Adjacent previously described teth ered small bowel loops are in unchanged position. The complex fistulous connect ion between a small perivesicular collection, rectal stump suture line, a nd adjacent small bowel is better characterized on recent CT cystogram. D ecrease in size of a now tiny fluid collection previously noted along the s uperior aspect of vaginal cuff and adjacent to the rectal stump suture charlotte e (series 2, image 62). No new pelvic fluid collection. Abdominal wall and Osseous Structures: Right ventral abdominal wall colostomy. Redemonstration of a large left lateral abdominal hernia containing numerous loops of normal caliber small bowel and a portion of the colon. Interval placement of percutaneous drai n within a complex right ventral abdominal wall fluid and gas collection , now measuring approximately 6.1 x 2.5 cm, previously 7.4 x 4.1 cm when measur ed similarly (series 2 image 50). Surrounding this loculated walled off c ollection there is a surrounding small additional collection that appears cent ered within the rectus muscle which has not significantly changed in size. Ther e also appears to be a thin communication between this right anterior abdominal w all complex fluid and gas collection containing a newly placed drainage cath eter and the previously described anterior abdominal extraperitoneal gracy ection which also contains a drainage catheter (series 601, image 28). Open midline ventral abdominal wall wou nd with surrounding soft tissue thickening. Redemonstration of areas of body wall edema and skin thickening, some of which are not included within t he [id number] and cannot be compared to more remote exams. Old rib fracture deformities and diffuse thoracolumbar spondylosis with multilevel degenerativ e listhesis. Procedure Note Interface, Radiant Results - 10/02/2020 6:[address] ABDOMEN AND PELVIS Clinical Indication: Assess size of fluid collection status post drain. Technique: Multiple contiguous axial images were obtained through the abdomen and pelvis following the administration of IV contrast material. Post processing coronal and sagittal reconstruction images were made from the axial images. IV contrast: Yes Bowel contrast: None Comparison: CT abdomen pelvis 09/26/2020. FINDINGS: Lower Thorax: Heart is normal in size without significant pericardial effusion. No pleural effusion. Mild bibasilar, primarily dependent atelectasis. Tortuous descending thoracic aorta. Stable appearance of multiple bibasilar small pulmonary nodules, better evaluated and further discussed on CT chest from September 12, 2020. Liver and Biliary system: Mild hepatomegaly. No focal hepatic lesion. Gallbladder is again dilated with layering gallstones. No gallbladder wall thickening or pericholecystic fluid or stranding. No intra or extra hepatic biliary ductal dilatation. Major portal veins are patent. Spleen: Unremarkable. Adrenal Glands and Kidneys: Unremarkable right adrenal gland. Unchanged left renal nodule, reportedly previously left adrenal adenoma. No hydronephrosis. Left nephroureteral stent. Unchanged left inferior pole renal cyst. Pancreas and Retroperitoneum: Pancreas unremarkable. No retroperitoneal lymphadenopathy. Aorta and Major Vessels: Abdominal aorta is normal in caliber with mild scattered calcific atherosclerosis. Bowel, Mesentery and Peritoneal space: Prior low anterior resection with right abdominal end colostomy is again noted. Large and small bowel loops are normal caliber. Redemonstration of anterior abdominal extraperitoneal collection with percutaneous drain centered within the collection which measures approximately 9 cm transverse by 1.8 cm AP (series 2 images 55 and 58), previously 10.3 x 2.3 cm on prior exam when measured in similar fashion. The collection again extends superiorly within the midline abdominal wall and adjacent to the anterior inferior aspect of the left lobe of the liver. Numerous small bowel loops are closely apposed to this collection. No significant abdominal ascites. Pelvis: Salomon catheter within a nondilated urinary bladder, with nondependent gas. Adjacent previously described tethered small bowel loops are in unchanged position. The complex fistulous connection between a small perivesicular collection, rectal stump suture line, and adjacent small bowel is better characterized on recent CT cystogram. Decrease in size of a now tiny fluid collection previously noted along the superior aspect of vaginal cuff and adjacent to the rectal stump suture line (series 2, image 62). No new pelvic fluid collection. Abdominal wall and Osseous Structures: Right ventral abdominal wall colostomy. Redemonstration of a large left lateral abdominal hernia containing numerous loops of normal caliber small bowel and a portion of the colon. Interval placement of percutaneous drain within a complex right ventral abdominal wall fluid and gas collection, now measuring approximately 6.1 x 2.5 cm, previously 7.4 x 4.1 cm when measured similarly (series 2 image 50). Surrounding this loculated walled off collection there is a surrounding small additional collection that appears centered within the rectus muscle which has not significantly changed in size. There also appears to be a thin communication between this right anterior abdominal wall complex fluid and gas collection containing a newly placed drainage catheter and the previously described anterior abdominal extraperitoneal collection which also contains a drainage catheter (series 601, image 28). Open midline ventral abdominal wall wound with surrounding soft tissue thickening. Redemonstration of areas of body wall edema and skin thickening, some of which are not included within the [id number] and cannot be compared to more remote exams. Old rib fracture deformities and diffuse thoracolumbar spondylosis with multilevel degenerative listhesis. IMPRESSION 1. Percutaneous drain remaining within the anterior abdominal wall extraperitoneal fluid collection, which is mildly decreased in size, with previously described fistulous connection unable to be evaluated in the absence of oral contrast. 2. Persistent right ventral abdominal w all fluid and gas collection associated with the right rectus muscle, likely evolving intramuscular hematoma, with interval placement of a percutaneous drain in a component of the collection which is walled off and slightly decreased in size. Surrounding this collection there is an additional fluid collection which has not significantly changed in size and likely does not communicate with the recently placed percutaneous drain. Of note, there does appear to be a thin communication between the apparent evolving intramuscular hematoma and the previously described with anterior abdominal wall extraperitoneal fluid collection which also contains a percutaneous drain. 3. Previously described complex fistulo us connection between the urinary bladder, vagina, adjacent small bowel loops and the rectal stump suture line is better characterized on prior CT cystogram. 4. Indwelling left nephroureteral stent , without hydronephrosis. 5. Prior low anterior resection and rig ht abdominal colostomy. No bowel obstruction or pneumoperitoneum. 6. Cholelithiasis. Gallbladder is again dilated which is likely related to recent fasting, with no gallbladder wall thickening, pericholecystic fluid/stranding, or additional CT findings to increase likelihood for acute cholecystitis. 7. Unchanged large left ventral abdomin al wall hernia containing normal caliber large and small bowel loops. 8. Redemonstration of multiple bibasila r pulmonary nodules, nonspecific. Follow-up chest CT in one year is recommended to show longer-term stability in a patient with reported smoking history. By my electronic signature, I attest that I have personally reviewed the images for this examination and formulated the interpretations and opinions expressed in this report Finalized by Bran Estrada M.D. on 10/02/2020 6:32 PM. Dictated by Yobani Oleary MD on 10/02/2020 5:43 PM. Performing Organization Address City/[facility]/ZIP Code P sid Number [facility] RES[facility] * POC GLUCOSE (10/02/2020 4:46 PM CDT) Glucose, POC 107 (H) 70 - 100 MG/DL [facility] MAIN LAB Specimen Performing Organization Address [facility] P sid Number MAIN LAB [address] [place] [id number] * POC GLUCOSE (10/02/2020 11:59 AM CDT) Glucose, POC 121 (H) 70 - 100 MG/DL [facility] MAIN LAB Specimen Performing Organization Address [facility] P sid Number MAIN LAB [address] [place] [address] * POC GLUCOSE (10/02/2020 8:24 AM CDT) Glucose, POC 120 (H) 70 - 100 MG/DL [facility] MAIN [facility] Specimen Performing Organization Address [facility] P sid Number MAIN LAB [address] [place] [address] * PHOSPHORUS (10/02/2020 4:15 AM CDT) Phosphorus 3.8 2.0 - 4.5 MG/DL [facility] MAIN [facility] Specimen Blood Performing Organization Address [facility] P sid Number MAIN LAB [address] [place] [address] * MAGNESIUM (10/02/2020 4:15 AM CDT) Magnesium 2.2 1.6 - 2.6 mg/dL [facility] MAIN [facility] Specimen Blood Performing Organization Address [facility]/ZIP Code P sid Number [facility] MAIN LAB [address] [place] [address] * CBC (10/02/2020 4:15 AM CDT) White Blood 11.9 (H) 4.5 - 11.0 K/UL [facility] MAIN LAB Cells RBC 3.49 (L) 4.0 - 5.0 M/UL [facility]IN [facility] Hemoglobin 9.9 (L) 12.0 - 15.0 GM/DL [facility] MAIN [facility] Hematocrit 30.8 (L) 36 - 45 % [facility]IN [facility] MCV 88.3 80 - 100 FL [facility] MAIN [facility] MCH 28.4 26 - 34 PG [facility]IN [facility] MCHC 32.1 32.0 - 36.0 G/DL [facility]IN [facility] RDW 17.0 (H) 11 - 15 % [facility]IN [facility] Platelet Count 507 (H) 150 - 400 K/UL [facility]IN [facility] MPV 7.5 7 - 11 FL [facility] MAIN [facility] Specimen Blood Performing Organization Address City/[facility]/ZIP Code P sid Number [facility] MAIN LAB [address] [place] [address] * BASIC METABOLIC PANEL (10/02/2020 4:15 AM CDT) Sodium 139 137 - 147 MMOL/L [facility]IN [facility] Potassium 4.4 3.5 - 5.1 MMOL/L [facility]IN [facility] Chloride 104 98 - 110 MMOL/L [facility]IN [facility] CO2 27 21 - 30 MMOL/L [facility] Anion Gap 8 3 - 12 [facility] Glucose 105 (H) 70 - 100 MG/DL [facility]IN [facility] Blood Urea 28 (H) 7 - 25 MG/DL [facility]IN [facility] Nitrogen Creatinine 0.78 0.4 - 1.00 MG/DL [facility]IN [facility] Calcium 8.9 8.5 - 10.6 MG/DL [facility]IN [facility] eGFR Non >60 >60 mL/min [facility] Comment: [place] The eGFR is not validated f or use in drug dosing adjustments. Continue to use estimated creatinine clearance per dosing reference text. Please contact the Clinical Pharmacist for questions. eGFR >60 >60 mL/min [facility]IN [facility] [place] Comment: The eGFR is not validated for use in drug dosing adjustments. Continue to use estimated creatinine clearance per dosing reference text. Please contact the Clinical Pharmacist for questions. Specimen Blood Performing Organization Address City/State/ZIP Code P sid Number [facility] MAIN LAB [address] [place] [address] * POC GLUCOSE (10/02/2020 3:24 AM CDT) Glucose, POC 107 (H) 70 - 100 MG/DL MAIN LAB Specimen Performing Organization Address City/[facility] P sid Number MAIN LAB [address] [place] [address] * POC GLUCOSE (10/01/2020 11:28 PM CDT) Glucose, POC 122 (H) 70 - 100 MG/DL MAIN LAB Specimen Performing Organization Address [facility] P sid Number MAIN LAB [address] [place] [address] * POC GLUCOSE (10/01/2020 11:49 AM CDT) Glucose, POC 138 (H) 70 - 100 MG/DL MAIN LAB Specimen Performing Organization Address [facility] P sid Number MAIN LAB [address] [place] [address] * COVID-19 (SARS-COV-2) PCR (10/01/2020 11:15 AM CDT) COVID-19 FLOCKED SWAB [facility] (SARS-CoV-2) NASOPHARYNGEAL PCR Source COVID-19 NOT DETECTED DN-NOT DETECTED [facility] (SARS-CoV-2) Comment: PCR This assay is [...] performance characteristics have been verified by the [facility]. Fact sheet for providers: https://www.fda.gov/media/9969 85/download Fact sheet for patients: https://www.fda.gov/media/8866 87/download Specimen Flocked Swab - Nasopharyngeal Performing Organization Address City/[facility] P sid Number [facility] MAIN [facility] [address] [place] [address] * POC GLUCOSE (10/01/2020 7:24 AM CDT) Glucose, POC 115 (H) 70 - 100 MG/DL [facility]IN [facility] Specimen Performing Organization Address [facility] P sid Number [facility] MAIN [facility] [address] [place] [address] * POC GLUCOSE (10/01/2020 4:42 AM CDT) Glucose, POC 123 (H) 70 - 100 MG/DL [facility]IN [facility] Specimen Performing Organization Address [facility] P sid Number [facility] MAIN [facility] [address] [place] [phone] * PHOSPHORUS (10/01/2020 4:38 AM CDT) Phosphorus 3.9 2.0 - 4.5 MG/DL [facility] MAIN [facility] Specimen Blood Performing Organization Address [facility] P sid Number [facility] MAIN [facility] [address] [place] [phone] * MAGNESIUM (10/01/2020 4:38 AM CDT) Magnesium 2.2 1.6 - 2.6 mg/dL [facility]IN [facility] Specimen Blood Performing Organization [facility] P sid Number [facility] MAIN [facility] [address] [place] [address] * CBC (10/01/2020 4:38 AM CDT) White Blood 9.9 4.5 - 11.0 K/UL [facility] MAIN [facility] Cells RBC 3.75 (L) 4.0 - 5.0 M/UL [facility]IN [facility] Hemoglobin 10.6 (L) 12.0 - 15.0 GM/DL [facility]IN [facility] Hematocrit 33.2 (L) 36 - 45 % [facility]IN [facility] MCV 88.3 80 - 100 FL [facility]IN [facility] MCH 28.3 26 - 34 PG [facility] MCHC 32.1 32.0 - 36.0 G/DL [facility] RDW 17.0 (H) 11 - 15 % [facility] Platelet Count 512 (H) 150 - 400 K/UL [facility] MPV 7.4 7 - 11 FL [facility]IN [facility] Specimen Blood Performing Organization Address [facility]/ZIP Code P sid Number [facility] MAIN LAB [address] [place] [address] * BASIC METABOLIC PANEL (10/01/2020 4:38 AM CDT) Sodium 140 137 - 147 MMOL/L [facility]IN [facility] Potassium 4.2 3.5 - 5.1 MMOL/L [facility] Chloride 103 98 - 110 MMOL/L [facility] CO2 28 21 - 30 MMOL/L [facility] Anion Gap 9 3 - 12 [facility] Glucose 94 70 - 100 MG/DL [facility] Blood Urea 26 (H) 7 - 25 MG/DL [facility] Nitrogen Creatinine 0.78 0.4 - 1.00 MG/DL [facility] Calcium 8.8 8.5 - 10.6 MG/DL [facility]IN [facility] eGFR Non >60 >60 mL/min [facility] Comment: [place] The eGFR is not validated f or use in drug dosing adjustments. Continue to use estimated creatinine clearance per dosing reference text. Please contact the Clinical Pharmacist for questions. eGFR >60 >60 mL/min [facility] [place] Comment: The eGFR is not validated for use in drug dosing adjustments. Continue to use estimated creatinine clearance per dosing reference text. Please contact the Clinical Pharmacist for questions. Specimen Blood Performing Organization Address [facility]/ZIP Code P sid Number MAIN LAB [address] [place] [address] * POC GLUCOSE (09/30/2020 11:07 PM CDT) Glucose, POC 113 (H) 70 - 100 MG/DL [facility] MAIN [facility] Specimen Performing Organization Address City/[facility]/ZIP Code P sid Number [facility] MAIN [facility] [address] [place] [address] * POC GLUCOSE (09/30/2020 4:25 PM CDT) Glucose, POC 111 (H) 70 - 100 MG/DL [facility]IN [facility] Specimen Performing Organization Address City/[facility]/ZIP Code P sid Number [facility] MAIN [facility] [address] [place] [address] * POC GLUCOSE (09/30/2020 11:33 AM CDT) Glucose, POC 135 (H) 70 - 100 MG/DL [facility]IN [facility] Specimen Performing Organization Address City/[facility]/ZIP Code P sid Number [facility] MAIN [facility] [address] [place] [address] * PHOSPHORUS (09/30/2020 4:19 AM CDT) Phosphorus 3.4 2.0 - 4.5 MG/DL [facility]IN [facility] Specimen Blood Performing Organization Address City/[facility] Code P sid Number [facility] MAIN LAB [address] [place] [address] * MAGNESIUM (09/30/2020 4:19 AM CDT) Magnesium 2.1 1.6 - 2.6 mg/dL [facility] MAIN [facility] Specimen Blood Performing Organization Address City/[facility] Code P sid Number [facility] MAIN [facility] [address] [place] [address] * CBC (09/30/2020 4:19 AM CDT) White Blood 10.0 4.5 - 11.0 K/UL [facility] MAIN [facility] Cells RBC 3.61 (L) 4.0 - 5.0 M/UL [facility]IN [facility] Hemoglobin 10.2 (L) 12.0 - 15.0 GM/DL [facility]IN [facility] Hematocrit 31.8 (L) 36 - 45 % [facility] MCV 88.0 80 - 100 FL [facility] MCH 28.2 26 - 34 PG [facility] MCHC 32.1 32.0 - 36.0 G/DL [facility] RDW 16.9 (H) 11 - 15 % [facility] Platelet Count 513 (H) 150 - 400 K/UL [facility] MPV 7.4 7 - 11 FL [facility]IN [facility] Specimen Blood Performing Organization Address [facility] Code P sid Number [facility] MAIN [facility] [address] [place] [address] * BASIC METABOLIC PANEL (09/30/2020 4:19 AM CDT) Sodium 138 137 - 147 MMOL/L [facility]IN [facility] Potassium 4.3 3.5 - 5.1 MMOL/L [facility] Chloride 103 98 - 110 MMOL/L [facility] CO2 26 21 - 30 MMOL/L [facility] Anion Gap 9 3 - 12 [facility] Glucose 96 70 - 100 MG/DL [facility] Blood Urea 26 (H) 7 - 25 MG/DL [facility] Nitrogen Creatinine 0.78 0.4 - 1.00 MG/DL [facility] Calcium 9.2 8.5 - 10.6 MG/DL [facility] eGFR Non >60 >60 mL/min [facility] Comment: [place] The eGFR is not validated f or use in drug dosing adjustments. Continue to use estimated creatinine clearance per dosing reference text. Please contact the Clinical Pharmacist for questions. eGFR >60 >60 mL/min [facility] [place] Comment: The eGFR is not validated for use in drug dosing adjustments. Continue to use estimated creatinine clearance per dosing reference text. Please contact the Clinical Pharmacist for questions. Specimen Blood Performing Organization Address City/[facility]/ZIP Code P sid Number [facility] [address] [place] [address] * POC GLUCOSE (09/29/2020 5:24 PM CDT) Glucose, POC 123 (H) 70 - 100 MG/DL [facility] Specimen Performing Organization Address City/[facility] P sid Number [facility] [address] [place] [id number] * POC GLUCOSE (09/29/2020 12:43 PM CDT) Glucose, POC 127 (H) 70 - 100 MG/DL [facility] Specimen Performing Organization Address City/[facility] P sid Number [facility] [address] [id number] * PHOSPHORUS (09/29/2020 4:05 AM CDT) Phosphorus 3.2 2.0 - 4.5 MG/DL [facility] Specimen Blood Performing Organization Address [facility] P sid Number [facility] [address] [place] [address] * MAGNESIUM (09/29/2020 4:05 AM CDT) Magnesium 2.1 1.6 - 2.6 mg/dL [facility] Specimen Blood Performing Organization Address City/[facility] P sid Number [facility] [address] [id number] * BASIC METABOLIC PANEL (09/29/2020 4:05 AM CDT) Sodium 139 137 - 147 MMOL/L [facility] Potassium 4.4 3.5 - 5.1 MMOL/L [facility] Chloride 104 98 - 110 MMOL/L [facility] CO2 27 21 - 30 MMOL/L [facility] Anion Gap 8 3 - 12 [facility] Glucose 93 70 - 100 MG/DL [facility] Blood Urea 23 7 - 25 MG/DL [facility] Nitrogen Creatinine 0.85 0.4 - 1.00 MG/DL [facility] Calcium 8.9 8.5 - 10.6 MG/DL [facility] eGFR Non >60 >60 mL/min [facility] Comment: [place] The eGFR is not validated f or use in drug dosing adjustments. Continue to use estimated creatinine clearance per dosing reference text. Please contact the Clinical Pharmacist for questions. eGFR >60 >60 mL/min [facility] [place] Comment: The eGFR is not validated for use in drug dosing adjustments. Continue to use estimated creatinine clearance per dosing reference text. Please contact the Clinical Pharmacist for questions. Specimen Blood Performing Organization Address City/[facility]/ZIP Code P sid Number [facility] [address] [place] [address] * CBC (09/29/2020 4:05 AM CDT) White Blood 10.6 4.5 - 11.0 K/UL [facility] Cells RBC 3.23 (L) 4.0 - 5.0 M/UL [facility] Hemoglobin 9.3 (L) 12.0 - 15.0 GM/DL [facility] Hematocrit 28.3 (L) 36 - 45 % [facility] MCV 87.6 80 - 100 FL [facility] MCH 28.9 26 - 34 PG [facility] MCHC 33.0 32.0 - 36.0 G/DL [facility] RDW 16.6 (H) 11 - 15 % [facility] Platelet Count 589 (H) 150 - 400 K/UL [facility] MPV 7.6 7 - 11 FL [facility] Specimen Blood Performing Organization Address City/[facility]/ZIP Code P sid Number [facility] [address] [place] [address] * POC GLUCOSE (09/28/2020 10:15 PM CDT) Glucose, POC 111 (H) 70 - 100 MG/DL [facility] Specimen Performing Organization Address City/[facility]/ZIP [facility] P sid Number [facility] [address] [place] [address] * POC GLUCOSE (09/28/2020 4:59 PM CDT) Glucose, POC 108 (H) 70 - 100 MG/DL [facility] Specimen Performing Organization Address City/[facility] Code P sid Number [facility] [address] [place] [address] * POC GLUCOSE (09/28/2020 11:29 AM CDT) Glucose, POC 123 (H) 70 - 100 MG/DL [facility] Specimen Performing Organization Address [facility] P sid Number [facility] [address] [place] [address] * POC GLUCOSE (09/28/2020 8:07 AM CDT) Glucose, POC 119 (H) 70 - 100 MG/DL [facility] Specimen Performing Organization Address [facility] P sid Number [facility] [address] [place] [address] * POC GLUCOSE (09/28/2020 3:57 AM CDT) Glucose, POC 112 (H) 70 - 100 MG/DL [facility] Specimen Performing Organization Address [facility] Code P sid Number [facility] [address] [place] [address] * PHOSPHORUS (09/28/2020 3:30 AM CDT) Phosphorus 4.1 2.0 - 4.5 MG/DL [facility] Specimen Blood Performing Organization Address [facility] Code P sid Number MAIN LAB [address] [place] [address] * MAGNESIUM (09/28/2020 3:30 AM CDT) Magnesium 2.1 1.6 - 2.6 mg/dL [facility] Specimen Blood Performing Organization Address [facility] Code P sid Number [facility] [address] [place] [address] * BASIC METABOLIC PANEL (09/28/2020 3:30 AM CDT) Sodium 137 137 - 147 MMOL/L [facility] Potassium 4.2 3.5 - 5.1 MMOL/L [facility] Chloride 105 98 - 110 MMOL/L [facility] CO2 23 21 - 30 MMOL/L [facility] Anion Gap 9 3 - 12 [facility] Glucose 98 70 - 100 MG/DL [facility] Blood Urea 21 7 - 25 MG/DL [facility] Nitrogen Creatinine 0.87 0.4 - 1.00 MG/DL [facility] Calcium 9.0 8.5 - 10.6 MG/DL [facility] eGFR Non >60 >60 mL/min [facility] Comment: [place] The eGFR is not validated f or use in drug dosing adjustments. Continue to use estimated creatinine clearance per dosing reference text. Please contact the Clinical Pharmacist for questions. eGFR >60 >60 mL/min [facility] [place] Comment: The eGFR is not validated for use in drug dosing adjustments. Continue to use estimated creatinine clearance per dosing reference text. Please contact the Clinical Pharmacist for questions. Specimen Blood Performing Organization Address City/[facility]/ZIP Code P sid Number [facility] [address] [phone] * CBC (09/28/2020 3:30 AM CDT) Pathologist [facility] White Blood 10.7 4.5 - 11.0 K/UL [facility] Cells RBC 3.14 (L) 4.0 - 5.0 M/UL [facility] Hemoglobin 8.9 (L) 12.0 - 15.0 GM/DL [facility] Hematocrit 27.9 (L) 36 - 45 % [facility] MCV 89.0 80 - 100 FL [facility] MCH 28.3 26 - 34 PG [facility] MCHC 31.8 (L) 32.0 - 36.0 G/DL [facility] RDW 16.4 (H) 11 - 15 % [facility] Platelet Count 609 (H) 150 - 400 K/UL [facility] MPV 7.7 7 - 11 FL [facility] LAB Specimen Blood Performing Organization Address City/[facility]/ZIP Code P sid Number [facility] [address] [place] [address] * POC GLUCOSE (09/27/2020 9:43 PM CDT) Pathologist [facility] Glucose, POC 102 (H) 70 - 100 MG/DL [facility] Specimen Performing Organization Address City/[facility]/ZIP [facility] P sid Number [facility] [address] [place] [address] * POC GLUCOSE (09/27/2020 5:17 PM CDT) Glucose, POC 68 (L) 70 - 100 MG/DL [facility] Specimen Performing Organization Address City/[facility]/ZIP Code P sid Number [facility] [address] [place] [address] * CULTURE-FUNGAL,OTHER (09/27/2020 4:19 PM CDT) Battery Name FUNGUS CULTURE [facility] Report Status FINAL 10/04/2020 [facility] Specimen FLUID ABDOMEN [facility] Description Special NONE [facility] Requests Culture Two colonies [facility] BRENDA GLABRATA (A)Comment: Susceptibility intended for research use only. Specimen Fluid - Abdomen Antibiotic Method Susceptibility Organism Micafungin REMI (MCG/ML), INTERPRETATION, YST 0.5: Resistant Brenda glabrata Fluconazole REMI (MCG/ML), INTERPRETATION, YST 64: Resistant Brenda glabrata Performing Organization Address [facility]/ZIP Code P sid Number [facility] [address] [place] [address] * GRAM STAIN (09/27/2020 4:19 PM CDT) Battery Name GRAM STAIN [facility] Report Status FINAL 09/27/2020 [facility] Specimen FLUID ABDOMEN [facility] Description Special NONE [facility] Requests Gram Stain NO NEUTROPHILS SEEN [facility] Gram Stain NO ORGANISMS SEEN [facility] Specimen Fluid - Abdomen Performing Organization Address City/[facility]/ZIP Code P sid Number [facility] [address] [place] [address] * CULTURE-ANAEROBIC (09/27/2020 4:19 PM CDT) Battery Name ANAEROBE CULTURE [facility] Report Status FINAL 10/02/2020 [facility] Specimen FLUID ABDOMEN [facility] Description Special NONE [facility] Requests Culture NO ANAEROBES ISOLATED [facility] Specimen Fluid - Abdomen Performing Organization Address City/[facility]/ZIP Code P sid Number [facility] [address] [place] [address] * CULTURE-WOUND/TISSUE/FLUID(AEROBIC ONLY)W/SENSITIVITY (09/27/2020 4:19 PM CDT) Battery Name ROUTINE CULTURE [facility] Report Status FINAL 10/01/2020 [facility] Specimen FLUID ABDOMEN [facility] Description Special NONE [facility] Requests Direct Gram NO NEUTROPHILS SEEN [facility] Stain Direct Gram NO ORGANISMS SEEN [facility] Stain Culture Moderate growth MAIN LAB ENTEROCOCCUS FAECIUM, VANCOMYCIN RESISTANT (A) Culture Five colonies MAIN LAB PSEUDOMONAS AERUGINOSA (A) Specimen Fluid - Abdomen Antibiotic Method Susceptibility Organism Ampicillin REMI (MCG/ML), INTERPRETATION, PHX >8: Resistant Enterococcus faecium, vancomycin resistant Vancomycin REMI (MCG/ML), INTERPRETATION, PHX >16: Resistant Enterococcus faecium, vancomycin resistant Gent Synergy REMI (MCG/ML), INTERPRETATION, PHX <=500: Susceptible Enterococcus faecium, vancomycin resistant Daptomycin REMI (MCG/ML), INTERPRETATION, PHX 2: Susceptible Enterococcus faecium, vancomycin resistant Rifampin INTERPRETATION, [place]ARRO BURNS Resistant Enterococcus faecium, vancomycin resistant Linezolid INTERPRETATION, [place]ARR[place]NS Susceptible Enterococcus faecium, vancomycin resistant Amikacin REMI (MCG/ML), INTERPRETATION, PHX <=8: Susceptible Pseudomonas aeruginosa Aztreonam REMI (MCG/ML), INTERPRETATION, PHX >16: Resistant Pseudomonas aeruginosa Ceftazidime REMI (MCG/ML), INTERPRETATION, PHX >16: Resistant Pseudomonas aeruginosa Cefepime REMI (MCG/ML), INTERPRETATION, PHX 16: Resistant Pseudomonas aeruginosa Gentamicin REMI (MCG/ML), INTERPRETATION, PHX <=2: Susceptible Pseudomonas aeruginosa Levofloxacin REMI (MCG/ML), INTERPRETATION, PHX <=0.5: Susceptible Pseudomonas aeruginosa Meropenem REMI (MCG/ML), INTERPRETATION, PHX 2: Susceptible Pseudomonas aeruginosa Piperacil/Tazobactam REMI (MCG/ML), INTERPRETATION, PHX >64/4: Resistant Pseudomonas aeruginosa Tobramycin REMI (MCG/ML), INTERPRETATION, PHX <=2: Susceptible Pseudomonas aeruginosa Performing Organization Address City/State/ZIP Code P isd Number MAIN LAB [address] [place] [address] * IR ABDOMINAL DRAIN PLACEMENT (09/27/2020 4:15 PM CDT) Specimen Impressions Performed At US-guided drain placement as described. [facility] TS Approved by Roddy Morelos [...] Findings: The nature of the procedure, risks, garett efits, and expected outcomes were discussed with [...] into the fluid collection and a 12 Prydeinig pigtai l catheter was advanced into the [...] into the fluid collection and a 12 Prydeinig pigtail catheter was advanced into the fluid [...] on 09/27/2020 4:23 PM. Performing Organization Address [facility] Code P sid Number [facility] RESULTS * POC GLUCOSE (09/27/2020 11:16 AM CDT) Glucose, POC 86 70 - 100 MG/DL [facility] Specimen Performing Organization Address [facility] P isd Number [facility] [address] [place] [address] * POC GLUCOSE (09/27/2020 7:23 AM CDT) Glucose, POC 109 (H) 70 - 100 MG/DL [facility] Specimen Performing Organization [facility] P sid Number MAIN LAB [address] [place] [address] * CREATINE KINASE-CPK (09/27/2020 4:39 AM CDT) Creatine Kinase 20 (L) 21 - 215 U/L [facility] Specimen Performing Organization Address [facility] P sid Number MAIN LAB [address] [place] [address] * PHOSPHORUS (09/27/2020 4:39 AM CDT) Phosphorus 4.7 (H) 2.0 - 4.5 MG/DL [facility] Specimen Blood Performing Organization Address [facility] P sid Number [facility] [address] [place] [address] * MAGNESIUM (09/27/2020 4:39 AM CDT) Magnesium 2.1 1.6 - 2.6 mg/dL [facility] Specimen Blood Performing Organization Address [facility] P sid Number MAIN LAB [address] [place] [address] * CBC (09/27/2020 4:39 AM CDT) White Blood 11.9 (H) 4.5 - 11.0 K/UL [facility] Cells RBC 3.10 (L) 4.0 - 5.0 M/UL [facility] Hemoglobin 8.7 (L) 12.0 - 15.0 GM/DL [facility] Hematocrit 27.3 (L) 36 - 45 % [facility] MCV 88.3 80 - 100 FL [facility] MCH 28.1 26 - 34 PG [facility] MCHC 31.9 (L) 32.0 - 36.0 G/DL [facility] RDW 16.9 (H) 11 - 15 % [facility] Platelet Count 638 (H) 150 - 400 K/UL [facility] MPV 7.6 7 - 11 FL [facility] Specimen Blood Performing Organization Address City/State/ZIP Code P sid Number [facility] [address] [place] [address] * TRIGLYCERIDE (09/27/2020 4:39 AM CDT) Triglycerides 158 (H) <150 MG/DL [facility] Specimen Blood Performing Organization Address City/State/ZIP Code P sid Number [facility] [address] [place] [address] * COMPREHENSIVE METABOLIC PANEL (09/27/2020 4:39 AM CDT) Sodium 137 137 - 147 MMOL/L [facility] Potassium 4.3 3.5 - 5.1 MMOL/L [facility] Chloride 103 98 - 110 MMOL/L [facility] Glucose 86 70 - 100 MG/DL [facility] Blood Urea 22 7 - 25 MG/DL [facility] Nitrogen Creatinine 0.81 0.4 - 1.00 MG/DL [facility] Calcium 8.6 8.5 - 10.6 MG/DL [facility] Total Protein 7.5 6.0 - 8.0 G/DL [facility] Total Bilirubin 0.5 0.3 - 1.2 MG/DL [facility] Albumin 2.9 (L) 3.5 - 5.0 G/DL [facility] Alk Phosphatase 136 (H) 25 - 110 U/L [facility] AST (SGOT) 22 7 - 40 U/L [facility] CO2 25 21 - 30 MMOL/L [facility] ALT (SGPT) 25 7 - 56 U/L [facility] Anion Gap 9 3 - 12 [facility] eGFR Non >60 >60 mL/min [facility] Comment: [place] The eGFR is not validated f or use in drug dosing adjustments. Continue to use estimated creatinine clearance per dosing reference text. Please contact the Clinical Pharmacist for questions. eGFR >60 >60 mL/min [facility] [place] Comment: The eGFR is not validated for use in drug dosing adjustments. Continue to use estimated creatinine clearance per dosing reference text. Please contact the Clinical Pharmacist for questions. Specimen Blood Performing Organization Address City/[facility]/ZIP Code P sid Number [facility] [address] [place] [address] * POC GLUCOSE (09/26/2020 10:22 PM CDT) Glucose, POC 111 (H) 70 - 100 MG/DL [facility] Specimen Performing Organization Address City/[facility] P sid Number [facility] [address] [place] [address] * COVID-19 (SARS-COV-2) PCR (09/26/2020 6:59 PM CDT) COVID-19 FLOCKED SWAB [facility] (SARS-CoV-2) NASOPHARYNGEAL PCR Source COVID-19 NOT DETECTED DN-NOT DETECTED [facility] (SARS-CoV-2) Comment: PCR This assay is designed [...] performance characteristics have been verified by the [facility]. Fact sheet for providers: https://www.fda.gov/media/9913 85/download Fact sheet for patients: https://www.fda.gov/media/6673 87/download Specimen Flocked Swab - Nasopharyngeal Performing Organization Address City/[facility]/ZIP Code P sid Number [facility] [address] [place] [address] * PROTIME INR (PT) (09/26/2020 6:58 PM CDT) INR 1.2 0.8 - 1.2 [facility] Specimen Blood Performing Organization Address City/State/ZIP Code P sid Number MAIN LAB [address] [place] [address] documented in this encounter Visit Diagnoses Diagnosis Abdominal fluid collection - Primary Other ascites Chronic anemia Anemia, unspecified documented in this encounter Admitting Diagnoses Diagnosis Abdominal fluid collection Other ascites documented in this encounter Administered Medications Action Date Dose Rate Site Medication Order MAR Action 09/28/2020 8:40 PM CDT 75 mL/hr Adult Continuous Parenteral Nutrition Given - New (PN) Bag Central, PN PER INSTR, 2 doses, First dose (after last modification) on Fri09/27/20 at 2030, Last dose on Fri09/28/20 at 2030, 1,800 mL 75 mL/hr Given - New Bag 09/27/2020 9:27 PM CDT 10/02/2020 3:52 PM CDT 47 mL/hr Adult Cyclic Parenteral Nutrition (PN) Dose/Rate Central, PN PER INSTR, 3 doses, First Change dose on Fri09/29/20 at 2030, Last dose on Fri10/01/20 at 2030, 1,800 mL, Taper up (for PN admin over <24hrs): 1 Hours, Taper down (for PN admin over <24hr: 1 Hours 95 mL/hr Dose/Rate Change 10/01/2020 9:56 PM CDT 47 mL/hr Given - New Bag 10/01/2020 8:38 PM CDT 47 mL/hr Dose/Rate Change 10/01/2020 3:05 PM CDT 95 mL/hr Dose/Rate Change 09/30/2020 9:46 PM CDT 47 mL/hr Given - New Bag 09/30/2020 8:39 PM CDT 47 mL/hr Dose/Rate Change 09/30/2020 3:31 PM CDT 95 mL/hr Dose/Rate Change 09/29/2020 9:19 PM CDT 47 mL/hr Given - New Bag 09/29/2020 8:19 PM CDT 10/03/2020 12:13 PM CDT 60 mL/hr Adult Cyclic Parenteral Nutrition (PN) Dose/Rate Central, PN PER INSTR, First dose (after Change last reorder) on Fri10/02/20 at 2030, Until Discontinued, 1,800 mL, Taper up (for PN admin over <24hrs): 1 Hours, Taper down (for PN admin over <24hr: 1 Hours 120 mL/hr Dose/Rate Change 10/02/2020 9:49 PM CDT 60 mL/hr Given - New Bag 10/02/2020 8:42 PM CDT 09/30/2020 9:38 AM CDT 30 mL aluminum/magnesium hydroxide (MAALOX) Given oral suspension 30 mL 30 mL, Oral, FOUR TIMES DAILY PRN, Starting on Fri09/26/20 at 1823, Until Fri10/03/20 at 1456, Indigestion/Heartburn 10/03/2020 9:48 AM CDT 150 mg buPROPion XL (WELLBUTRIN XL) tablet 150 Given mg 150 mg, Oral, DAILY, First dose on Fri09/27/20 at 0900, Until Discontinued 150 mg Given 10/02/2020 8:32 AM CDT 150 mg Given 10/01/2020 9:33 AM CDT 150 mg Given 09/30/2020 9:22 AM CDT 150 mg Given 09/29/2020 9:34 AM CDT 150 mg Given 09/28/2020 9:33 AM CDT 150 mg Given 09/27/2020 8:13 AM CDT 10/01/2020 4:32 AM CDT 2 g 200 mL/hr cefepime (MAXIPIME) 2 g in sodium Given - New chloride 0.9% (NS) 100 mL IVPB (MB+) Bag 2 g, Intravenous, 100 mL, Administer over 30 Minutes, EVERY 8 HOURS, First dose on Fri09/26/20 at 2030, Until Discontinued 2 g 200 mL/hr Given - New Bag 09/30/2020 8:28 PM CDT 2 g 200 mL/hr Given - New Bag 09/30/2020 12:48 PM CDT 2 g 200 mL/hr Given - New Bag 09/30/2020 4:12 AM CDT 2 g 200 mL/hr Given - New Bag 09/29/2020 8:09 PM CDT 2 g 200 mL/hr Given - New Bag 09/29/2020 12:36 PM CDT 2 g 200 mL/hr Given - New Bag 09/29/2020 3:57 AM CDT 2 g 200 mL/hr Given - New Bag 09/28/2020 8:00 PM CDT 2 g 200 mL/hr Given - New Bag 09/28/2020 12:48 PM CDT 2 g 200 mL/hr Given - New Bag 09/28/2020 3:36 AM CDT 2 g 200 mL/hr Given - New Bag 09/27/2020 9:35 PM CDT 2 g 200 mL/hr Given - New Bag 09/27/2020 12:45 PM CDT 2 g 200 mL/hr Given - New Bag 09/27/2020 4:36 AM CDT 2 g 200 mL/hr Given - New Bag 09/26/2020 8:24 PM CDT 10/03/2020 9:48 AM CDT 10 mg cetirizine (ZyrTEC) tablet 10 mg Given 10 mg, Oral, DAILY, First dose on Fri09/27/20 at 0900, Until Discontinued 10 mg Given 10/02/2020 8:33 AM CDT 10 mg Given 10/01/2020 9:33 AM CDT 10 mg Given 09/30/2020 9:22 AM CDT 10 mg Given 09/29/2020 9:33 AM CDT 10 mg Given 09/28/2020 9:33 AM CDT 10 mg Given 09/27/2020 8:13 AM CDT 10/03/2020 12:17 PM CDT 450 mg DAPTOmycin (CUBICIN) injection 450 mg Given 450 mg (rounded from 452 mg = 8 mg/kg 56.5 kg Adjusted weight), 9 mL, Intravenous, Administer over 5 Minutes, EVERY 24 HOURS, First dose on Fri09/27/20 at 1015, Until Discontinued, Administer IV-Push over 5 minutes 450 mg Given 10/02/2020 10:25 AM CDT 450 mg Given 10/01/2020 11:01 AM CDT 450 mg Given 09/30/2020 11:48 AM CDT 450 mg Given 09/29/2020 10:35 AM CDT 450 mg Given 09/28/2020 9:36 AM CDT 450 mg Given 09/27/2020 10:52 AM CDT 09/27/2020 11:04 AM CDT 75 mL/hr dextrose 5 % & 0.45% NaCl infusion Given - New 1,000 mL, Intravenous, at 75 mL/hr, Bag CONTINUOUS, Starting on Fri09/26/20 at 1830, Until Fri09/28/20 at 0756 75 mL/hr Given - New Bag 09/26/2020 7:09 PM CDT 10/02/2020 8:41 PM CDT 40 mg Abdomina l Tissue enoxaparin (LOVENOX) syringe 40 mg Given 40 mg, Subcutaneous, DAILY, First dose on Fri09/26/20 at 2100, Until Discontinued, For patients undergoing surgery: Consult physician in advance - - enoxaparin is an anticoagulant and may need to be held for 12hr prior to surgery or invasive procedures. NOTE: This is a HIGH ALERT Medication. 40 mg Arm, Left Given 10/01/2020 8:46 PM CDT 40 mg Abdominal Tissue Given 09/30/2020 8:28 PM CDT 40 mg Abdominal Tissue Given 09/29/2020 8:09 PM CDT 40 mg Abdomen:LLQ Given 09/28/2020 8:42 PM CDT 40 mg Abdominal Tissue Given 09/27/2020 9:40 PM CDT 40 mg Abdominal Tissue Given 09/26/2020 8:23 PM CDT 09/27/2020 4:14 PM CDT 50 mcg fentaNYL citrate PF (SUBLIMAZE) Given injection INTRA-PROCEDURE MED, Starting on Fri09/27/20 at 1612, Until Fri09/27/20 at 1614 50 mcg Given 09/27/2020 4:12 PM CDT 10/03/2020 9:48 AM CDT 300 mg gabapentin (NEURONTIN) capsule 300 mg Given 300 mg, Oral, TWICE DAILY, First dose o n Fri09/26/20 at 2100, Until Discontinued 300 mg Given 10/02/2020 8:41 PM CDT 300 mg Given 10/02/2020 8:33 AM CDT 300 mg Given 10/01/2020 8:46 PM CDT 300 mg Given 10/01/2020 9:33 AM CDT 300 mg Given 09/30/2020 8:28 PM CDT 300 mg Given 09/30/2020 9:22 AM CDT 300 mg Given 09/29/2020 8:09 PM CDT 300 mg Given 09/29/2020 9:34 AM CDT 300 mg Given 09/28/2020 8:43 PM CDT 300 mg Given 09/28/2020 9:33 AM CDT 300 mg Given 09/27/2020 9:25 PM CDT 300 mg Given 09/27/2020 8:13 AM CDT 300 mg Given 09/26/2020 8:24 PM CDT 09/28/2020 4:56 AM CDT 1 tablet HYDROcodone/acetaminophen (NORCO) 5/325 Given mg tablet 1 tablet 1 tablet, Oral, ONCE, 1 dose, On Rand 09/28/20 at 0545, TOTAL ACETAMINOPHEN DOSE NOT TO EXCEED 4GM DAILY NOTE: This is a HIGH ALERT Medication. 10/03/2020 10:59 AM CDT 2 tablets HYDROcodone/acetaminophen (NORCO) 5/325 Given mg tablet 1-2 tablet 1-2 tablet, Oral, EVERY 6 HOURS PRN, Starting on Fri09/26/20 at 1823, Until Fri10/03/20 at 1456, Pain PO, TOTAL ACETAMINOPHEN DOSE NOT TO EXCEED 4GM DAILY NOTE: This is a HIGH ALERT Medication. 1 tablet Given 10/02/2020 5:51 PM CDT 2 tablets Given 10/02/2020 8:42 AM CDT 2 tablets Given 10/01/2020 3:05 PM CDT 2 tablets Given 09/30/2020 9:46 PM CDT 2 tablets Given 09/30/2020 11:57 AM CDT 2 tablets Given 09/29/2020 11:37 PM CDT 1 tablet Given 09/29/2020 5:21 PM CDT 1 tablet Given 09/29/2020 3:35 PM CDT 1 tablet Given 09/29/2020 9:51 AM CDT 1 tablet Given 09/29/2020 3:57 AM CDT 1 tablet Given 09/28/2020 11:36 PM CDT 1 tablet Given 09/28/2020 3:08 PM CDT 1 tablet Given 09/28/2020 9:33 AM CDT 1 tablet Given 09/28/2020 3:15 AM CDT 1 tablet Given 09/28/2020 12:24 AM CDT 1 tablet Given 09/27/2020 9:33 PM CDT 1 tablet Given 09/27/2020 10:52 AM CDT 1 tablet Given 09/27/2020 6:20 AM CDT 10/03/2020 10:59 AM CDT 0.125 mg hyoscyamine (ANASPAZ) rapid dissolve Given tablet 0.125 mg 0.125 mg, Sublingual, EVERY 4 HOURS PRN, Starting on Fri09/26/20 at 1823, Until Fri10/03/20 at 1456, Bladder Spasms 0.125 mg Given 10/02/2020 5:51 PM CDT 0.125 mg Given 09/30/2020 8:47 PM CDT 0.125 mg Given 09/30/2020 11:57 AM CDT 0.125 mg Given 09/30/2020 3:24 AM CDT 0.125 mg Given 09/29/2020 5:21 PM CDT 0.125 mg Given 09/29/2020 9:12 AM CDT 0.125 mg Given 09/28/2020 11:34 PM CDT 0.125 mg Given 09/28/2020 4:58 AM CDT 0.125 mg Given 09/27/2020 5:38 AM CDT 10/02/2020 5:30 PM CDT 100 mL iohexoL (OMNIPAQUE-350) 350 mg/mL Given injection 100 mL 100 mL, Intravenous, ONCE, 1 dose, On Fri10/02/20 at 1730, NOTE: This is a HIGH ALERT Medication. 10/03/2020 6:31 AM CDT 50 mcg levothyroxine (SYNTHROID) tablet 50 mcg Given 50 mcg, Oral, DAILY, First dose on Fri09/27/20 at 0630, Until Discontinued, Give 1 hour before a meal. If patient is receiving tube feedings, hold tube feed 1hr before and 1hr after dose. 50 mcg Given 10/02/2020 6:11 AM CDT 50 mcg Given 10/01/2020 6:08 AM CDT 50 mcg Given 09/30/2020 6:15 AM CDT 50 mcg Given 09/29/2020 8:04 AM CDT 50 mcg Given 09/28/2020 4:57 AM CDT 50 mcg Given 09/27/2020 5:38 AM CDT 09/27/2020 8:13 AM CDT 600 mg linezolid (ZYVOX) tablet 600 mg Given 600 mg, Oral, TWICE DAILY, First dose o n 09/26/20 at 2100, Until Discontinued 600 mg Given 09/26/2020 8:24 PM CDT 10/03/2020 9:49 AM CDT 2 g 46.7 mL/hr meropenem (MERREM) 2 g in sodium Given - New chloride 0.9% (NS) 140 mL IVPB (EXTENDED Bag INFUSION) 2 g, Intravenous, 140 mL, Administer over 3 Hours, EVERY 8 HOURS, First dos e on [place] 10/01/20 at 1615, Until Discontinued 2 g 46.7 mL/hr Given - New Bag 10/03/2020 12:01 AM CDT 2 g 46.7 mL/hr Given - New Bag 10/02/2020 5:51 PM CDT 2 g 46.7 mL/hr Given - New Bag 10/02/2020 8:33 AM CDT 2 g 46.7 mL/hr Given - New Bag 10/02/2020 12:00 AM CDT 2 g 46.7 mL/hr Given - New Bag 10/01/2020 4:29 PM CDT 10/01/2020 9:32 AM CDT 2 g 280 mL/hr meropenem (MERREM) 2 g in sodium Given - New chloride 0.9% (NS) 140 mL IVPB Bag 2 g, Intravenous, 140 mL, Administer over 30 Minutes, ONCE, 1 dose, On [place] 10/01/20 at 0815 10/03/2020 9:48 AM CDT 750 mg methocarbamoL (ROBAXIN) tablet 750 mg Given 750 mg, Oral, TWICE DAILY, First dose o n [facility] 09/26/20 at 2100, Until Discontinued 750 mg Given 10/02/2020 8:41 PM CDT 750 mg Given 10/02/2020 8:33 AM CDT 750 mg Given 10/01/2020 8:47 PM CDT 750 mg Given 10/01/2020 9:33 AM CDT 750 mg Given 09/30/2020 8:28 PM CDT 750 mg Given 09/30/2020 9:22 AM CDT 750 mg Given 09/29/2020 8:09 PM CDT 750 mg Given 09/29/2020 9:34 AM CDT 750 mg Given 09/28/2020 8:43 PM CDT 750 mg Given 09/28/2020 9:33 AM CDT 750 mg Given 09/27/2020 9:25 PM CDT 750 mg Given 09/27/2020 8:13 AM CDT 750 mg Given 09/26/2020 8:32 PM CDT 09/30/2020 8:28 PM CDT 500 mg metroNIDAZOLE (FLAGYL) tablet 500 mg Given 500 mg, Oral, TWICE DAILY, First dose o n Fri09/27/20 at 1015, Until Discontinued , NURSING: Please educate patient and document: Avoid taking alcohol and metronidazole together, may potentate disulfiram effect. 500 mg Given 09/30/2020 9:22 AM CDT 500 mg Given 09/29/2020 8:09 PM CDT 500 mg Given 09/29/2020 9:34 AM CDT 500 mg Given 09/28/2020 8:43 PM CDT 500 mg Given 09/28/2020 9:33 AM CDT 500 mg Given 09/27/2020 9:25 PM CDT 500 mg Given 09/27/2020 10:52 AM CDT 10/02/2020 9:38 PM CDT 100 mg 100 mL/hr micafungin (MYCAMINE) 100 mg in sodium Given - New chloride 0.9% (NS) 100 mL IVPB (MB+) Bag 100 mg, Intravenous, 100 mL, Administer over 60 Minutes, EVERY 24 HOURS, First dose on Fri09/26/20 at 2030, Until Discontinued 100 mg 100 mL/hr Given - New Bag 10/01/2020 8:46 PM CDT 100 mg 100 mL/hr Given - New Bag 09/30/2020 9:28 PM CDT 100 mg 100 mL/hr Given - New Bag 09/29/2020 9:12 PM CDT 100 mg 100 mL/hr Given - New Bag 09/28/2020 8:37 PM CDT 100 mg 100 mL/hr Given - New Bag 09/28/2020 12:26 AM CDT 100 mg 100 mL/hr Given - New Bag 09/26/2020 8:52 PM CDT 09/27/2020 3:56 PM CDT 1 mg midazolam (VERSED) injection 1 mg Given 1 mg, Intravenous, ONCE, 1 dose, On Fri09/27/20 at 1530, Pre-Procedure (IR) 09/27/2020 4:16 PM CDT 1 mg midazolam (VERSED) injection Given INTRA-PROCEDURE MED, Starting on Fri09/27/20 at 1616, Until Fri09/27/20 at 1616 10/03/2020 9:49 AM CDT 1 drop naphazoline 0.025 % /pheniramine 0.3 % Given (NAPHCON-A) ophthalmic solution 1 drop 1 drop, Both Eyes, FOUR TIMES DAILY, First dose on Fri09/26/20 at 1830, Unti l Discontinued 1 drop Given 10/02/2020 8:46 PM CDT 1 drop Given 10/02/2020 5:51 PM CDT 1 drop Given 10/02/2020 2:45 PM CDT 1 drop Given 10/02/2020 8:35 AM CDT 1 drop Given 10/01/2020 8:46 PM CDT 1 drop Given 10/01/2020 9:34 AM CDT 1 drop Given 09/30/2020 8:50 PM CDT 1 drop Given 09/30/2020 5:34 PM CDT 1 drop Given 09/30/2020 12:49 PM CDT 1 drop Given 09/29/2020 8:13 PM CDT 1 drop Given 09/29/2020 5:24 PM CDT 1 drop Given 09/29/2020 12:36 PM CDT 1 drop Given 09/29/2020 9:34 AM CDT 1 drop Given 09/28/2020 8:43 PM CDT 1 drop Given 09/28/2020 5:02 PM CDT 1 drop Given 09/28/2020 9:34 AM CDT 1 drop Given 09/27/2020 5:42 PM CDT 1 drop Given 09/27/2020 8:13 AM CDT 1 drop Given 09/26/2020 8:30 PM CDT 10/03/2020 6:31 AM CDT 4 mg ondansetron (ZOFRAN ODT) rapid dissolve Given tablet 4 mg 4 mg, Oral, EVERY 6 HOURS, First dose on Fri09/26/20 at 1830, Until Discontinued, Place on tongue and allow to dissolve. 4 mg Given 10/03/2020 12:01 AM CDT 4 mg Given 10/02/2020 5:51 PM CDT 4 mg Given 10/02/2020 11:58 AM CDT 4 mg Given 10/02/2020 6:11 AM CDT 4 mg Given 10/02/2020 12:01 AM CDT 4 mg Given 10/01/2020 12:25 PM CDT 4 mg Given 10/01/2020 6:08 AM CDT 4 mg Given 10/01/2020 12:10 AM CDT 4 mg Given 09/30/2020 5:34 PM CDT 4 mg Given 09/30/2020 11:48 AM CDT 4 mg Given 09/30/2020 6:15 AM CDT 4 mg Given 09/29/2020 11:37 PM CDT 4 mg Given 09/29/2020 5:21 PM CDT 4 mg Given 09/29/2020 12:36 PM CDT 4 mg Given 09/29/2020 8:04 AM CDT 4 mg Given 09/28/2020 11:34 PM CDT 4 mg Given 09/28/2020 5:02 PM CDT 4 mg Given 09/28/2020 12:49 PM CDT 4 mg Given 09/28/2020 4:59 AM CDT 4 mg Given 09/27/2020 5:41 PM CDT 4 mg Given 09/27/2020 12:45 PM CDT 4 mg Given 09/27/2020 5:38 AM CDT 4 mg Given 09/26/2020 8:24 PM CDT 10/03/2020 9:48 AM CDT 10 mg oxybutynin XL (DITROPAN XL) tablet 10 mg Given 10 mg, Oral, DAILY, First dose on Fri09/26/20 at 2030, Until Discontinued, Do not crush or chew 10 mg Given 10/02/2020 8:33 AM CDT 10 mg Given 10/01/2020 9:32 AM CDT 10 mg Given 09/30/2020 9:22 AM CDT 10 mg Given 09/29/2020 9:33 AM CDT 10 mg Given 09/28/2020 9:33 AM CDT 10 mg Given 09/27/2020 8:13 AM CDT 10 mg Given 09/26/2020 8:32 PM CDT 10/03/2020 9:48 AM CDT [address] (PROTONIX) tablet 40 mg Given 40 mg, Oral, TWICE DAILY, First dose on Fri09/26/20 at 2100, Until Discontinued , Do not crush or chew tablet. 40 mg Given 10/02/2020 8:41 PM CDT 40 mg Given 10/02/2020 8:33 AM CDT 40 mg Given 10/01/2020 8:47 PM CDT 40 mg Given 10/01/2020 9:33 AM CDT 40 mg Given 09/30/2020 8:28 PM CDT 40 mg Given 09/30/2020 9:22 AM CDT 40 mg Given 09/29/2020 8:09 PM CDT 40 mg Given 09/29/2020 9:34 AM CDT 40 mg Given 09/28/2020 8:43 PM CDT 40 mg Given 09/28/2020 9:33 AM CDT 40 mg Given 09/27/2020 9:25 PM CDT 40 mg Given 09/27/2020 8:13 AM CDT 40 mg Given 09/26/2020 8:24 PM CDT 10/03/2020 9:48 AM CDT 1 tablet senna/docusate (SENOKOT-S) tablet 1 Given tablet 1 tablet, Oral, TWICE DAILY, First dose on Fri09/26/20 at 2100, Until Discontinued, Hold for loose stools 1 tablet Given 10/02/2020 8:41 PM CDT 1 tablet Given 10/02/2020 8:33 AM CDT 1 tablet Given 10/01/2020 8:46 PM CDT 1 tablet Given 10/01/2020 9:33 AM CDT 1 tablet Given 09/30/2020 8:28 PM CDT 1 tablet Given 09/30/2020 9:22 AM CDT 1 tablet Given 09/29/2020 8:09 PM CDT 1 tablet Given 09/29/2020 9:34 AM CDT 1 tablet Given 09/28/2020 8:43 PM CDT 1 tablet Given 09/28/2020 9:33 AM CDT 1 tablet Given 09/27/2020 9:25 PM CDT 1 tablet Given 09/27/2020 8:13 AM CDT 1 tablet Given 09/26/2020 8:24 PM CDT 09/27/2020 4:23 PM CDT 100 mL sodium chloride 0.9 % infusion Given - New INTRA-PROCEDURE MED(CONT), Starting on Bag Fri09/27/20 at 1623, Until Fri09/27/20 at 1623 10/03/2020 9:51 AM CDT 10 mL sodium chloride PF 0.9% flush 10 mL Given 10 mL, Flush, FLUSH THREE TIMES DAILY, First dose on Fri09/27/20 at 1600, Unti l Discontinued, Flush central, Midline or PICC line, with 5-10 mL every 8 hours using the push-pause (turbulent) method . Flush all lumens that do not have a continuous infusion. After obtaining blood specimen, flush catheter with 20 mL. 10 mL Given 10/02/2020 5:52 PM CDT 10 mL Given 10/02/2020 8:35 AM CDT 10 mL Given 10/02/2020 12:01 AM CDT 10 mL Given 10/01/2020 4:30 PM CDT 10 mL Given 10/01/2020 9:34 AM CDT 10 mL Given 10/01/2020 12:10 AM CDT 10 mL Given 09/30/2020 5:34 PM CDT 10 mL Given 09/30/2020 9:24 AM CDT 10 mL Given 09/29/2020 5:24 PM CDT 10 mL Given 09/29/2020 9:35 AM CDT 10 mL Given 09/28/2020 11:34 PM CDT 10 mL Given 09/28/2020 5:02 PM CDT 10 mL Given 09/28/2020 9:34 AM CDT 10 mL Given 09/27/2020 5:00 PM CDT 10/02/2020 5:30 PM CDT 50 mL sodium chloride PF 0.9% injection 50 mL Given 50 mL, Intravenous, ONCE, 1 dose, On Mo n 10/02/20 at 1730, DO NOT SEND this medication unless it is requested. This med is usually available in floor stock . 10/03/2020 9:51 AM CDT 10 mL sodium chloride PF 0.9% syringe 10 mL Given 10 mL, Intravenous, TWICE DAILY, First dose on Fri09/27/20 at 2100, Until Discontinued, Flush drain as ordered. See Abscess Drain Maintenance Order. 10 mL Given 10/02/2020 8:48 PM CDT 10 mL Given 10/02/2020 8:37 AM CDT 10 mL Given 10/01/2020 8:47 PM CDT 10 mL Given 10/01/2020 9:35 AM CDT 10 mL Given 09/30/2020 8:50 PM CDT 10 mL Given 09/30/2020 9:25 AM CDT 10 mL Given 09/29/2020 8:19 PM CDT 10 mL Given 09/29/2020 9:36 AM CDT 10 mL Given 09/28/2020 8:43 PM CDT 10 mL Given 09/28/2020 9:34 AM CDT 10 mL Given 09/27/2020 9:41 PM CDT 10/03/2020 9:51 AM CDT 125 mg vancomycin (FIRVANQ) oral solution 125 Given mg 125 mg, Oral, TWICE DAILY, First dose o n 09/26/20 at 2100, Until Discontinued 125 mg Given 10/02/2020 9:38 PM CDT 125 mg Given 10/02/2020 8:42 AM CDT 125 mg Given 10/01/2020 8:46 PM CDT 125 mg Given 10/01/2020 9:35 AM CDT 125 mg Given 09/30/2020 8:39 PM CDT 125 mg Given 09/30/2020 9:38 AM CDT 125 mg Given 09/29/2020 9:12 PM CDT 125 mg Given 09/29/2020 9:34 AM CDT 125 mg Given 09/28/2020 8:43 PM CDT 125 mg Given 09/28/2020 9:36 AM CDT 125 mg Given 09/27/2020 9:34 PM CDT 125 mg Given 09/27/2020 8:17 AM CDT 125 mg Given 09/26/2020 8:33 PM CDT documented in this encounter Discontinued Medications Start Date End Date Medication Sig Discontinue Reason 02/14/2020 10/03/2020 levothyroxine (SYNTHROID) Take 50 mcg 50 mcg tablet by mouth daily. 07/19/2020 10/03/2020 vancomycin (FIRVANQ) 25 Take 5 mL by mg/mL oral solution mouth twice daily. Continue while on antibiotics 07/18/2020 10/03/2020 nicotine polacrilex Take one (NICORETTE) 2 mg gum each by mouth every 1 hour as needed. Chew to soften and park in mouth between lip and gum. May use 1 piece per hour, not to exceed 24 per day, for 12 weeks. May be used for longer, if needed. 07/18/2020 10/03/2020 polyethylene glycol 3350 Take one (MIRALAX) 17 g packet packet by mouth twice daily as needed. 07/18/2020 10/03/2020 vitamin A & D oint Apply topically to affected area as Needed. 07/19/2020 10/03/2020 other medication Total Parenteral Nutrition. 10/03/2020 buPROPion SR Take 150 mg (WELLBUTRIN-SR) 150 mg by mouth tablet daily. 08/22/2020 10/03/2020 nicotine (NICODERM CQ Apply 1 STEP 2) 14 mg/day patch to top patchIndications: smoking of skin as cessation directed every 24 hours. Rotate patch location. Indications: stop smoking 10/03/2020 scopolamine Apply 1 (TRANSDERM-SCOP) 1mg over patch to top 3 days 3 day patch of skin as directed every 72 hours. 08/28/2020 10/03/2020 nicotine (NICODERM CQ Apply 1 STEP 3) 7 mg/day patch to top patchIndications: smoking of skin as cessation directed every 24 hours. Rotate patch location. Indications: stop smoking 10/03/2020 ondansetron (ZOFRAN ODT) Dissolve 4 4 mg rapid dissolve mg by mouth tablet every [address] on tongue to disolve. 09/20/2020 10/03/2020 aluminum/magnesium Take 30 mL hydroxide (MAALOX) by mouth as 200/200 mg/5 mL susp oral Needed. suspension 09/20/2020 10/03/2020 cefepime (MAXIPIME) 2 Administer g/20 mL 2 g in sodium two g chloride 0.9% (NS) 0.9 % through vein 100 mL IVPB (MB+) every 8 hours for 9 days. Stop date 09/2909/20/2020 10/03/2020 HYDROcodone/acetaminophen Take one (NORCO) 5/325 mg tablet tablet to two tablets by mouth every 6 hours as needed 09/20/2020 10/03/2020 micafungin (MYCAMINE) 100 Administer mg/5 mL 100 mg in sodium one hundred chloride 0.9% (NS) 0.9 % mg through 100 mL IVPB vein every 24 hours for 9 days. Stop date 09/2909/21/2020 10/03/2020 oxybutynin XL (DITROPAN Take one XL) 15 mg tablet tablet by mouth daily for 5 days. 09/20/2020 10/03/2020 senna/docusate Take one (SENOKOT-S) 8.6/50 mg tablet by tablet mouth twice daily. 09/20/2020 10/03/2020 sodium chloride PF 0.9% Inject 10 mL syringe to area(s) as directed twice daily. Flush Jvac twice daily 09/20/2020 10/03/2020 linezolid (ZYVOX) 600 mg Take one tablet tablet by mouth twice daily for 9 days. Stop date 09/2910/03/2020 Amino Acids-Protein Take 30 mL Hydrolys (PRO-STAT SUGAR by mouth FREE) 15-100 gram-kcal/30 three times mL liqd daily. 10/03/2020 acetaminophen (TYLENOL) Take 325 mg Reorder 325 mg capsule by mouth every 6 hours as needed. Max of 4,000 mg of acetaminophe n in 24 hours. 10/03/2020 levocetirizine (XYZAL) 5 Take 1 Reorder mg tab tablet by mouth daily as needed. 07/18/2020 10/03/2020 hyoscyamine (ANASPAZ) Place one Reorder 0.125 mg rapid dissolve tablet under tablet tongue every 4 hours as needed. 07/18/2020 10/03/2020 methocarbamoL (ROBAXIN) Take one Reorder 750 mg tablet tablet by mouth twice daily. 07/18/2020 10/03/2020 simethicone (MYLICON) 80 Chew one Reorder mg chew tablet tablet by mouth every 6 hours as needed for Flatulence. 09/20/2020 10/03/2020 gabapentin (NEURONTIN) Take one Reorder 300 mg capsule capsule by mouth twice daily. 09/20/2020 10/03/2020 naphazoline 0.025 % Apply one Reorder /pheniramine 0.3 % drop to both (NAPHCON-A) 0.025/0.3 % eyes four drop times daily. 09/20/2020 10/03/[address] Take one Reorder (PROTONIX) 40 mg tablet tablet by mouth twice daily. 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 Start Date End Date Medication Sig Dispensed Refills 10/03/2020 Amino Acids-Protein Take 30 mL by 0 Hydrolys (PRO-STAT SUGAR mouth three FREE) 15-100 gram-kcal/30 times daily. mL liqd added in this encounter Active and Recently Administered Medications Times are shown in CDT. 10/02/2020 10/03/2020 Medication Order 10/01/2020 1552 (Dose/Rate Change - Provider: Jez Watkins RN) Adult Cyclic Parenteral Nutrition (PN) 1505 (Dose/Ra te (COMPLETED) Change - Provider: Central, PN PER INSTR, 3 doses, First Appoloniaalanis nixoni, dose on Fri09/29/20 at 2030, Last dose RN)2037 (Give n - New on Fri10/01/20 at 2030, 1,800 mL, Taper Bag - Provid er: Mayi up (for PN admin over <24hrs): 1 Hours, KOBI Mejia)2155 Taper down (for PN admin over <24hr: 1 (Dose/Rate Ch gely - Hours Provider: Mayi Mejia RN) 2041 (Given - New Bag - Provider: Srini Louie RN)2148 (Dose/Rate Change - Provider: Shabana Louie RN) 121 (Dose/Rate Change - Provider: Estephanie Luis RN) Adult Cyclic Parenteral Nutrition (PN) Central, PN PER INSTR, First dose (afte r last reorder) on Fri10/02/20 at 2030, Until Discontinued, 1,800 mL, Taper up (for PN admin over <24hrs): 1 Hours, Taper down (for PN admin over <24hr: 1 Hours 0832 (Given - Provider: Celia Ybrara RN) 0948 (Given - Provider: Marivel Luis RN) buPROPion XL (WELLBUTRIN XL) tablet 150 0933 (Given - mg Provider: Luz Mariaoloniaalanis 150 mg, Oral, DAILY, First dose on Fri KOBI Page) 09/27/20 at 0900, Until Discontinued cefepime (MAXIPIME) 2 g in sodium 0432 (Given - New chloride 0.9% (NS) 100 mL IVPB (MB+) Bag - Provider: Mayi (CANCELED) KOBI Mejia) 2 g, Intravenous, 100 mL, Administer over 30 Minutes, EVERY 8 HOURS, First dose on Fri09/26/20 at 2030, Until Discontinued 0833 (Given - Provider: Celia Ybarra RN) 0948 (Given - Provider: Marivel Luis RN) cetirizine (ZyrTEC) tablet 10 mg 932 (Given - 10 mg, Oral, DAILY, First dose on Fri Provider: Luz Mariao loniah 09/27/20 at 0900, Until Discontinued KOBI Page) 1025 (Given - Provider: Celia Ybarra RN) 1213 (Med Not Given - Provider: Marivel Luis RN - Reason: Other (Comment) - Comment: tpn and other abx running)1217 (Given - Provider: Marivel Luis RN) DAPTOmycin (CUBICIN) injection 450 mg 1101 (Given - 450 mg (rounded from 452 mg = 8 mg/kg Provider: Devyn yee 56.5 kg Adjusted weight), 9 mL, KOBI Page) Intravenous, Administer over 5 Minutes, EVERY 24 HOURS, First dose on Fri09/27/20 at 1015, Until Discontinued, Administer IV-Push over 5 minutes 2040 (Given - Provider: Shabana Louie RN) enoxaparin (LOVENOX) syringe 40 mg 2045 (Given - 40 mg, Subcutaneous, DAILY, First dose Provider: Mayi on Fri09/26/20 at 2100, Until KOBI Mejia) Discontinued, For patients undergoing surgery: Consult physician in advance - - enoxaparin is an anticoagulant and may need to be held for 12hr prior to surgery or invasive procedures. NOTE: This is a HIGH ALERT Medication. 0833 (Given - Provider: Celia Ybarra RN)2040 (Given - Provider: Shabana Louie RN) 0948 (Given - Provider: Marivel Luis, KOBI) gabapentin (NEURONTIN) capsule 300 mg 0933 (Given - 300 mg, Oral, TWICE DAILY, First dose on Provider: Layton Leach 09/26/20 at 2100, Until Discontinued KOBI Page)2 046 (Given - Provider: Mayi Mejia RN) 1730 (Given - Provider: Nancy Tamez) iohexoL (OMNIPAQUE-350) 350 mg/mL injection 100 mL (COMPLETED) 100 mL, Intravenous, ONCE, 1 dose, On 10/02/20 at 1730, NOTE: This is a HIGH ALERT Medication. 0611 (Given - Provider: Mayi Mejia RN) 0631 (Given - Provider: Shabana Louie RN) levothyroxine (SYNTHROID) tablet 50 mcg 0608 (Given - 50 mcg, Oral, DAILY, First dose on Fri Provider: Mayi 09/27/20 at 0630, Until Discontinued, KOBI Mejia) Give 1 hour before a meal. If patient is receiving tube feedings, hold tube feed 1hr before and 1hr after dose. 0000 (Given - New Bag - Provider: Mayi christianson RN)0833 (Given - New Bag - Provider: Celia Ybarra, KOBI)1751 (Given - New Bag - Provider: Jovon Watkins RN) 0001 (Given - New Bag - Provider: Srini Louie RN)0949 (Given - New Bag - Provider: Marivel Luis RN) meropenem (MERREM) 2 g in sodium 1629 (Given - New chloride 0.9% (NS) 140 mL IVPB (EXTENDED Bag - Provi edson: INFUSION) Appoloniah Camilo, 2 g, 140 mL, Intravenous, Administer RN) over 3 Hours, EVERY 8 HOURS, First dos e on 10/01/20 at 1615, Until Discontinued meropenem (MERREM) 2 g in sodium 0932 (Given - New chloride 0.9% (NS) 140 mL IVPB Bag - Provider: (COMPLETED) Appoloniah Camilo, 2 g, Intravenous, 140 mL, Administer RN) over 30 Minutes, ONCE, 1 dose, 10/01/20 at 0815 0833 (Given - Provider: Celia Ybarra RN)2041 (Given - Provider: Shabana Louie RN) 0948 (Given - Provider: Marivel Luis RN) methocarbamoL (ROBAXIN) tablet 750 mg 0933 (Given - 750 mg, Oral, TWICE DAILY, First dose on Provider: Layton suazo Fri09/26/20 at 2100, Until Discontinued KOBI Page)2 047 (Given - Provider: Mayi Mejia RN) 2138 (Given - New Bag - Provider: Srini Louie RN) micafungin (MYCAMINE) 100 mg in sodium 2045 (Given - New chloride 0.9% (NS) 100 mL IVPB (MB+) Bag - Provider: Mayi 100 mg, Intravenous, 100 mL, Marita Mejia RN) over 60 Minutes, at 100 mL/hr, EVERY 24 HOURS, First dose on Fri09/26/20 at 2030, Until Discontinued 0835 (Given - Provider: Celia Ybarra RN)1445 (Given - Provider: Celia Ybarra RN)1751 (Given - Provider: Jovon Watkins RN)2046 (Given - Provider: Shabana Louie RN) 0949 (Given - Provider: Marivel Luis RN) naphazoline 0.025 % /pheniramine 0.3 % 0934 (Given - (NAPHCON-A) ophthalmic solution 1 drop Provider: Luz Maria oloniaalanis 1 drop, Both Eyes, FOUR TIMES DAILY, KOBI Page)1226 (Med First dose on Fri09/26/20 at 1830, Until Not Given - Discontinued Provider: Kade Page RN - Reason: Patient Refused)1630 (Med Not Given - Provider: Kade Page RN - Reason: Patient Refused)2046 (Given - Provider: Mayi Mejia RN) 0001 (Given - Provider: Mayi Mejia RN)0611 (Given - Provider: Mayi Mejia RN)1158 (Given - Provider: Celia Ybarra RN)1751 (Given - Provider: Jovon Watkins RN) 0001 (Given - Provider: Shabana Louie RN)0631 (Given - Provider: Shabana Louie RN)1200 (Due - Provider: Griffin, Orders Discontinue) ondansetron (ZOFRAN ODT) rapid dissolve 0010 (Given - tablet 4 mg Provider: Mayi 4 mg, Oral, EVERY 6 HOURS, First dose Mohsen Mejia)0608 on Fri09/26/20 at 1830, Until (Given - Provider: Discontinued, Place on tongue and allow Mayi [address], to dissolve. RN)1225 (Given - Provider: Kade Page RN)1819 (Med Not Given - Provider: Kade Page RN - Reason: Patient sleeping) 0833 (Given - Provider: Celia Ybarra RN) 0948 (Given - Provider: Marivel Luis RN) oxybutynin XL (DITROPAN XL) tablet 10 mg 0932 (Given - 10 mg, Oral, DAILY, First dose on Fri Provider: Jose cr 09/26/20 at 2030, Until Discontinued, Do Camilo RN) not crush or chew 0833 (Given - Provider: Celia Ybarra RN)2040 (Given - Provider: Shabana Louie RN) 0948 (Given - Provider: Marivel Luis RN) pantoprazole DR (PROTONIX) tablet 40 mg 0933 (Given - 40 mg, Oral, TWICE DAILY, First dose on Provider: Devyn yee Fri09/26/20 at 2100, Until Discontinued, KOBI Page) 2046 Do not crush or chew tablet. (Given - Provider: Mayi Mejia RN) 0833 (Given - Provider: Celia Ybarra RN)2040 (Given - Provider: Shabana Louie RN) 0948 (Given - Provider: Marivel Luis RN) senna/docusate (SENOKOT-S) tablet 1 0933 (Given - tablet Provider: Kade 1 tablet, Oral, TWICE DAILY, First dose KOBI Page)2 046 on Fri09/26/20 at 2100, Until (Given - Provider: Discontinued, Hold for loose stools Mayi Mejia RN) 0001 (Given - Provider: Mayi Mejia RN)0835 (Given - Provider: Celia Ybarra RN)1752 (Given - Provider: Jovon Watkins RN) 0011 (Med Not Given - Provider: Shabana Louie RN - Reason: Other (Comment) - Comment: given with assessment)0951 (Given - Provider: Marivel Luis RN) sodium chloride PF 0.9% flush 10 mL 0010 (Given - 10 mL, Flush, FLUSH THREE TIMES DAILY, Provider: Mayi First dose on Fri09/27/20 at 1600, Until KOBI Mejia)0934 Discontinued, Flush central, Midline or (Given - Pro vider: PICC line, with 5-10 mL every 8 hours Kade bell, using the push-pause (turbulent) method. RN)1630 (Gi felix - Flush all lumens that do not have a Provider: Aristides kamara continuous infusion. After obtaining KOBI Page) blood specimen, flush catheter with 20 mL. 173 (Given - Provider: Nancy Tamez) sodium chloride PF 0.9% injection 50 mL (COMPLETED) 50 mL, Intravenous, ONCE, 1 dose, On Mo n 10/02/20 at 1730, DO NOT SEND this medication unless it is requested. This med is usually available in floor stock . 0837 (Given - Provider: Celia Ybarra RN)2047 (Given - Provider: Shabana Louie RN) 0951 (Given - Provider: Marivel Luis RN) sodium chloride PF 0.9% syringe 10 mL 0935 (Given - 10 mL, Intravenous, TWICE DAILY, First Provider: Luz Maria pérez dose on Fri09/27/20 at 2100, Until KOBI Page)2046 Discontinued, Flush drain as ordered. (Given - Provi edson: See Abscess Drain Maintenance Order. Mayi Mejia RN) 0842 (Given - Provider: Celia Ybarra RN)2137 (Given - Provider: Shabana Louie RN) 0951 (Given - Provider: Marivel Luis RN) vancomycin (FIRVANQ) oral solution 125 0935 (Given - mg Provider: Luz Mariaoloniah 125 mg, Oral, TWICE DAILY, First dose on KOBI Page) 204509/26/20 at 2100, Until Discontinued (Given - Pro vider: Mayi Mejia RN) 10/02/2020 10/03/2020 Medication Order 10/01/2020 aluminum/magnesium hydroxide (MAALOX) oral suspension 30 mL 30 mL, Oral, FOUR TIMES DAILY PRN, Starting Fri09/26/20 at 1823, Until Fri10/03/20 at 1456, Indigestion/Heartburn 0842 (Given - Provider: Celia Ybarra RN)1751 (Given - Provider: Jovon Watkins RN) 1059 (Given - Provider: Butch Rojas RN) 1213 (Med Not Given - Provider: Marivel Luis RN - Reason: Other (Comment)) HYDROcodone/acetaminophen (NORCO) 5/325 1505 (Given - mg tablet 1-2 tablet Provider: Appoloniah 1-2 tablet, Oral, EVERY 6 HOURS PRN, KOBI Page) Starting Fri09/26/20 at 1823, Until Fri10/03/20 at 1456, Pain PO, TOTAL ACETAMINOPHEN DOSE NOT TO EXCEED 4GM DAILY NOTE: This is a HIGH ALERT Medication. 1751 (Given - Provider: Jovon Watkins RN) 1059 (Given - Provider: Butch Rojas RN) hyoscyamine (ANASPAZ) rapid dissolve tablet 0.125 mg 0.125 mg, Sublingual, EVERY 4 HOURS PRN, Starting Fri09/26/20 at 1823, Unti l Fri10/03/20 at 1456, Bladder Spasms polyethylene glycol 3350 (MIRALAX) packet 17 g 17 g, Oral, TWICE DAILY PRN, Starting Fri09/26/20 at 1823, Until Fri10/03/20 at 1456, Constipation PO, 8.5 GRAMS = 0.5 PACKET 17 GRAMS = 1 PACKET 34 GRAMS = 2 PACKETS simethicone (MYLICON) chew tablet 80 mg 80 mg, Oral, EVERY 6 HOURS PRN, Starting Fri09/26/20 at 1823, Until Fri10/03/20 at 1456, Flatulence documented in this encounter Orders First Ordered Date Medications Ordered That Might Not Have Count Last Ordered Date Been Administered Adult Continuous Parenteral Nutrition 1 09/26/2020 (PN) lactated ringers infusion 1 09/26/2020 polyethylene glycol 3350 (MIRALAX) 1 packet 17 g simethicone (MYLICON) chew tablet 80 mg 1 09/26/2020 First Ordered Date Diet Count Last Ordered Date DISCHARGE DIET REGULAR 1 10/03/2020 First Ordered Date Nursing Count Last Ordered Date DISCHARGE ACTIVITY DRIVING 1 10/03/2020 DISCHARGE ACTIVITY LIFTING 1 10/03/2020 DISCHARGE ACTIVITY NORMAL 1 10/03/2020 DISCHARGE ACTIVITY SEXUAL 1 10/03/2020 DISCHARGE CONTACT 1 10/03/2020 DISCHARGE EDUCATION 1 10/03/2020 DISCHARGE J-VAC DRAIN CARE 1 10/03/2020 DISCHARGE PICC LINE CARE 1 10/03/2020 DISCHARGE SIGNS/SYMPTOMS 1 10/03/2020 DISCHARGE URINARY CATHETER CARE 1 2020 DISCHARGE WOUND CARE 1 10/03/2020 ILEOSTOMY CARE 1 10/03/2020 WEIGH PATIENT 1 09/26/2020 First Ordered Date Consult Count Last Ordered Date 09/26/2020 NUTRITION SUPPORT SERVICE 2 09/29/2020 CONSULT PARTS PROCESSOR 1 09/28/2020 CONSULT DIAGNOSTIC RADIOLOGIST, OIL GAUGER 1 09/27/2020 09/26/2020 CONSULT WOUND/OSTOMY TEAM NURSE 2 2020 CONSULT INFECTIOUS DISEASES PHYSICIAN 1 09/26/2020 CONSULT INTERVENTIONAL RADIOLOGY 1 09/26 PHYSICIAN CONSULT UROLOGY PHYSICIAN 1 09/26/2020 First Ordered Date OT Count Last Ordered Date OT CONSULT OCCUPATIONAL THERAPY 1 2020 First Ordered Date PT Count Last Ordered Date PT CONSULT PHYSICAL THERAPY 1 09/26/2020 First Ordered Date Admission Count Last Ordered Date ADMIT TO INPATIENT (NO BED REQUEST) 1 First Ordered Date Discharge Count Last Ordered Date DISCHARGE PATIENT NOW 1 10/03/2020 [facility] 1 1 First Ordered Date Equipment Count Last Ordered Date HEATING, MACHINE AK WITH PAD 1 1 COMPRESSION DEVICE, LEG 1 09/26/2020 PUMP IV CONTROL UNIT W/MODULES 1 021 First Ordered Date Vital Signs Count Last Ordered Date VITAL SIGNS 1 09/26/2020 First Ordered Date Activity Count Last Ordered Date MOBILITY 1 09/26/2020 First Ordered Date Discharge Contingent Count Last Ordered Date DISCHARGE PATIENT CONTINGENT 1 1 First Ordered Date SPECIALITY EQUIPMENT Count Last Ordered Date WALKER 5'4"- 6'2" WT < 300 LBS 1 021 First Ordered Date Intake & Output Count Last Ordered Date INTAKE AND OUTPUT 1 09/26/[address] & Maintain Count Last Ordered Date PLACE AND MAINTAIN SCD 1 09/26/2020 documented in this encounter Additional Health Concerns Last Indicated Resolved Time Infection Onset Date 09/13/2020 09/27/2020 8:54 AM CDT 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
--- OUTSIDE RECORDS SUMMARY | 2020-11-03 21:47 | XMS REPORT | Encounter Summary ---
Author Author [facility] Organization 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 [place] [address] Social History Date Tobacco Use [...] Signs Reading Time Taken Comments Vital Sign 107/85 09/26/2020 3:50 PM CDT Blood Pressure 85 09/26/2020 3:50 PM CDT Pulse 36.7 C (98.1 F) 09/26/2020 3:50 PM CDT Temperature 18 09/26/2020 3:50 PM CDT Respiratory Rate 98% 09/26/2020 3:50 PM CDT Oxygen Saturation - - Inhaled Oxygen Concentration 73.1 kg (161 lb 3.2 oz) 09/26/2020 3:50 PM CDT Weight 152.4 cm (5') 09/26/2020 3:50 PM CDT Height 31.48 09/26/2020 3:50 PM CDT Body Mass Index documented in this encounter Functional Status Date of Assessment Functional Status Response 09/05/2020 Does the patient have a hearing impairment: No 07/31/2020 Does the patient have a visual impairment: Yes - [place] ders 07/31/2020 Does the patient have impaired ambulation: Yes 07/31/2020 Does the patient have an activity of daily living No (ADL) impairment: 07/31/2020 Does the patient have an instrumental activity of No daily living (IADL) impairment: Date of Assessment Cognitive Status Response 07/31/2020 Does the patient have a cognitive impairment: No documented as of this encounter Progress Notes * Alexander Rodriguez MD - 09/26/2020 3:45 PM CDT Name: Beverly Torres : 1950 AGE: 8 8 y.o. DATE OF SERVICE: 09/26/2020 Subjective: Reason for Visit: Post Operative Visit (3 week POV) Beverly Torres is a 70 y.o. female. Cancer Staging No matching staging information was found for the patient. History of Present Illness The patient is a 70-year-old woman with a very complex surgical history who pres ents today for follow-up and evaluation having undergone an exploratory laparoto my, low anterior resection, colostomy, resection of infected mesh, partial cyste ctomy, complex cystorrhaphy, and left ureteral stent placement. The patient had a very complicated postoperative course and was admitted for nearly 3 weeks. D uring that admission, she had multiple episodes concerning for infection and the refore ID was consulted and managing her antibiotics. She also underwent drain p lacement for an intraabdominal fluid collection, and had a PICC line [...] for intra-abdominal extravasation of bowel con tents as well as a fistulous connection between the bladder, the rectal stump an d the vagina as well. 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 At that time she had a right uretera l injury which was repaired primarily by urology. 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 At the time of her stent removal she also underwent fulguration of her right distal ureteral stump and ureteral orifice a s well as retrograde pyelogram which revealed no sign of persistent fistula. Th is was complicated by complex ventral hernia repaired with mesh, umbilectomy, pa nniculectomy in 2013. She then developed a post-operative abscess which required drainage and debridement, wound vac placement. 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 She underwent colostomy takedown in 2014 after a year since her previous s urgery. This was complicated by an anastomotic breakdown and laparoscopic repair for colorectal anastomosis during that same admission. Prior to her operation 09/04, she reports that she passed most of her stool throu gh her urine and had not had any solid bowel movements since December. She did o ccasionally have liquid stool from her rectum. Review of Systems Constitutional: Negative. HENT: Negative. Eyes: Negative. Respiratory: Negative. Cardiovascular: Negative. Gastrointestinal: Negative. Endocrine: Negative. Genitourinary: Negative. Musculoskeletal: Negative. Skin: Negative. Allergic/Immunologic: Negative. Neurological: Negative. Hematological: Negative. Psychiatric/Behavioral: Negative. All other systems reviewed and are negative. Objective: No current outpatient medications on file. Vitals: 09/26/20 1550 BP: 107/85 Pulse: 85 Resp: 18 Temp: 36.7 C (98.1 F) TempSrc: Temporal SpO2: 98% Weight: 73.1 kg (161 lb 3.2 oz) Height: 152.4 cm (60") PainSc: Zero Body mass index is 31.48 kg/m. Pain Score: Zero Physical Exam Constitutional: Appearance: She is well-developed. HENT: Head: Normocephalic and atraumatic. Eyes: Pupils: Pupils are equal, round, and reactive to light. Cardiovascular: Rate and Rhythm: Normal rate. Pulmonary: Effort: Pulmonary effort is normal. No respiratory distress. Breath sounds: No stridor. Abdominal: Comments: Healing midline incision with openings at the superior and inferior aspect of the incision draining copious green liquid concerning for succus. Fa scia appears to be intact at both of these points with no visible intestine. J- Vac drain in place draining copious dark green liquid consistent with succus. F oley catheter in place draining clear yellow urine. Musculoskeletal: Cervical back: Normal range of motion. Skin: General: Skin is warm and dry. Neurological: Mental Status: She is alert and oriented to person, place, and time. Psychiatric: Behavior: Behavior normal. Thought Content: Thought content normal. Assessment and Plan: Pt to get admitted to CRS service. Recommend maintaining catheter indefinitely a t this point in time, antispasmodics. Problem Colovesical Fistula 08/2013 - Takeback drainage of abscess and debridement of fascia/mesh 07/30/2013 - Complex ventral hernia repair with fascial separation component wit h mesh and panniculectomy 07/09/2012 - Cystoscopy, right ureteral stent removal, right retrograde pyelogra m, and fulguration of right distal ureteral stump and ureteral orifice. 05/08/2012 - Right ureteral reimplantation 05/08/2012 - Laparotomy with lysis of adhesions, repair of small bowel, rigid si gmoidoscope 12/20/2011 - Primary repair of right ureteral injury with ureteroureterostomy an d cystoscopy with left ureteral stent placement. 12/20/2011 - Laparoscopy converted to laparotomy, sigmoid colon resection with l ow anterior anastomosis, small bowel resection, resection and repair of vaginal cuff. Pathology: 1. Sigmoid colon with rings and small bowel Segmental resection. Diverticulosis, serosal adhesions with luminal obstruction and associated peritonitis. 2. Vaginal cuff Colovesical fistula The patient is a 70-year-old woman who presents today in follow-up after undergo ing an exploratory laparotomy, low anterior resection, colostomy, resection of i nfected mesh, partial cystectomy, complex cystorrhaphy, and left ureteral stent placement unfortunately appears to have developed multiple enterocutaneous fistu las with intra-abdominal leakage of succus as well as fistulization between her bladder, rectal stump, and vagina. At this point time, the patient's urine is clear yellow and her catheter is draining well and therefore no acute urologic i ntervention is indicated. We agree with admission to the colorectal service for management of her enterocutaneous fistulas/bowel leak. PLAN: -Maintain Salomon catheter given leak and concern for fistula on CT -Agree with admission to colorectal service for further work-up and evaluation -Recommend Ditropan 10 mg XL daily and Levsin 0.125 mg every 4 hours as needed f or bladder spasms Attestation I saw and evaluated pt with the resident in clinic and performed the jurado portion s of the e/m. I agree with the above assessment and plan. Patient was evaluate d by colorectal surgery today and unfortunately has succus draining from her mine in and her wound. There are multiple fluid collections on the CT scan. The katty n is to admit her to colorectal surgery. Unfortunately, there was a leak from h er bladder closure with possible connection to her rectal stump. Her urine is c lear today. At this point we will continue with Salomon catheter drainage. Urolo gy will follow along in the hospital. Alexander Rodriguez MD, FACS documented in this encounter Plan of Treatment [...] Visit Diagnoses Diagnosis Colovesical fistula Intestinovesical fistula * Assessment & Plan Note - Jhonatan Schultz MD - 09/26/2020 7:18 PM CDT Associated Problem(s): Colovesical fistula The patient is a 70-year-old woman who presents today in follow-up after undergo ing an exploratory laparotomy, low anterior resection, colostomy, resection of i nfected mesh, partial cystectomy, complex cystorrhaphy, and left ureteral stent placement unfortunately appears to have developed multiple enterocutaneous fistu las with intra-abdominal leakage of succus as well as fistulization between her bladder, rectal stump, and vagina. At this point time, the patient's urine is clear yellow and her catheter is draining well and therefore no acute urologic i ntervention is indicated. We agree with admission to the colorectal service for management of her enterocutaneous fistulas/bowel leak. 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
--- OUTSIDE RECORDS SUMMARY | 2020-11-03 21:47 | XMS REPORT | Encounter Summary ---
Author Author [facility] Organization [facility] Address Unknown Phone Unavailable Care Team Providers Care Clinical Manager Name Role Phone Geraldo Mcknight MD PCP Dale Leal DO 21 Unavailable Reason for Visit * Auth/Cert Referred By Contact Referred To Contact Status Reason Specialty Diagnoses / Procedures Diagnoses Wound drainage Wound drainage Encounter Details Care Team Description Date Type Department Bran Martell, DO [address] [place] [address] Wound drainage 10/10/2020 Hospital Patient Care Unit C A7: - Encounter [facility] A 10/16/2020 [address] [facility] Level [address] [place] [address] Social History Date Tobacco Use [...] month, have you been in contact with Ghada ble to assess someone who was confirmed or suspected to have Coronavirus / COVID-19? documented as of this encounter Last Filed Vital Signs Reading Time Taken Comments Vital Sign 112/49 10/16/2020 3:49 PM CDT Blood Pressure 72 10/16/2020 3:49 PM CDT Pulse 37.3 C (99.1 F) 10/16/2020 3:49 PM CDT Temperature - - Respiratory Rate 92% 10/16/2020 3:49 PM CDT Oxygen Saturation - - Inhaled Oxygen Concentration 72.6 kg (160 lb 0.9 oz) 10/10/2020 12:14 AM CDT Weight 152.4 cm (5') 10/10/2020 12:14 AM CDT Height 31.26 10/10/2020 12:14 AM CDT Body Mass Index documented in [...] as of this encounter Discharge Summaries * Jeffrey Loomis MD - 10/16/2020 5:34 PM CDT Discharge Summary Name: Beverly Torres Date Of : 1950 Age: 70 yea rs Admit date: 10/10/2020 Discharge date: 10/16/2020 5:34 PM Discharge Attending: Bran Martell DO Discharge Summary Completed By: Jeffrey Loomis MD Service: Surgery-Oncology - [id number] Reason for hospitalization: Wound drainage [T14.8XXA] Primary Discharge Diagnosis: Wound drainage [T14.8XXA] Hospital Diagnoses: Hospital Problems Active Problems * (Principal) Wound drainage Colovesical fistula Malnutrition (HCC) Abdominal fluid collection Significant Past Medical History Colovesical fistula Diverticulitis Hypertension Hypoglycemia Hypothyroid PONV (postoperative nausea and vomiting) Rectovaginal fistula Right ureteral injury Sepsis (HCC) Allergies Bactrim [sulfamethoxazole-trimethoprim] and Blue dye Brief Hospital Course The patient was admitted and the following issues were addressed during this hos pitalization: (with pertinent details including admission exam/imaging/labs). Beverly Torres is a 70-year-old female with a large colovesical/fistula wh o underwent an ex lap, LAR, resection of infected mesh, partial cystectomy, comp odalys cystorrhaphy in combination with urology (Michael) on 09/04/2020. Her postopera tive course has been complicated by abdominal fluid collection requiring IR drai n placement. She was readmitted due to a new abdominal fluid collection. A J-V ac drain was placed on 09/27/2020. Patient was started on IV meropenem micafungi n and p.o. linezolid and vancomycin per ID recs. She was discharged on these me dications after the J-Vac drains were pulled on 10/12/2020. Patient continues to have a Salomon catheter in place due to concern for urine leak and a possible fis harlan. She was also discharged with a colostomy in place and a wound manager data for the midline wound drainage. She will continue to be followed by ID with weekly labs faxed to Dr. Hassan. Items Needing Follow Up Pending items or areas that need to be addressed at follow up: daily labs follow ed by ID Pending Labs and Follow Up Radiology none Medications Current Discharge Medication List START taking these medications Details micafungin (MYCAMINE) 100 mg/5 mL 100 mg, micafungin (MYCAMINE) 50 mg/5 mL 50 mg in sodium chloride 0.9% (NS) 110 mL IVPB Administer 150 mg through vein every 24 hours. Indications: intra-abdominal infection Qty: 1 g, Refills: 3 PRESCRIPTION TYPE: Print CONTINUE these medications which have been CHANGED or REFILLED Details HYDROcodone/acetaminophen (NORCO) 5/325 mg tablet Take one tablet by mouth every 6 hours as needed Qty: 15 tablet, Refills: 0 PRESCRIPTION TYPE: Normal linezolid (ZYVOX) 600 mg tablet Take one tablet by mouth twice daily. Tentativel y through 10/12 or until discontinued by infectious diseases physician. Qty: 30 tablet, Refills: 1 PRESCRIPTION TYPE: Normal meropenem (MERREM) 1 g/20 mL injection Administer 2 grams over 3 hours intraveno usly every 8 hours. Tentatively through 10/12 or until discontinued by infectious diseases physician. Qty: 500 mL, Refills: 3 PRESCRIPTION TYPE: Normal methocarbamoL (ROBAXIN) 750 mg tablet Take one tablet by mouth twice daily as ne eded for Spasms. Qty: 30 tablet, Refills: 1 PRESCRIPTION TYPE: Normal vancomycin (FIRVANQ) 25 mg/mL oral solution Take 5 mL by mouth twice daily. Disc carolyne after 14 days. Qty: 300 mL, Refills: 0 PRESCRIPTION TYPE: Normal CONTINUE these medications which have NOT CHANGED Details acetaminophen (TYLENOL) 325 mg capsule Take one capsule by mouth every 6 hours a s needed. Max of 4,000 mg of acetaminophen in 24 hours. Qty: 90 capsule PRESCRIPTION TYPE: No Print aluminum/magnesium hydroxide (MAALOX) 200/200 mg/5 mL susp oral suspension Take 30 mL by mouth four times daily as needed. Qty: 300 mL, Refills: 0 PRESCRIPTION TYPE: No Print buPROPion XL (WELLBUTRIN XL) 150 mg tablet Take one tablet by mouth daily. Do no t crush or chew. Qty: 30 tablet, Refills: 0 PRESCRIPTION TYPE: No Print gabapentin (NEURONTIN) 300 mg capsule Take one capsule by mouth twice daily. Qty: 90 capsule, Refills: 0 PRESCRIPTION TYPE: No Print hyoscyamine (ANASPAZ) 0.125 mg rapid dissolve tablet Place one tablet under tong ue every 4 hours as needed. Qty: 30 tablet, Refills: 1 PRESCRIPTION TYPE: No Print levocetirizine (XYZAL) 5 mg tab Take one tablet by mouth daily as needed. Qty: 30 tablet, Refills: 0 PRESCRIPTION TYPE: Normal levothyroxine (SYNTHROID) 50 mcg tablet Take one tablet by mouth daily. Qty: 90 tablet, Refills: 0 PRESCRIPTION TYPE: No Print !! Miscellaneous Medical Supply [facility] Colostomy supplies and accessories Dispense twenty of each for one month of supplies Dx Colovesical fistula N32.1 Qty: 20 each, Refills: 99 PRESCRIPTION TYPE: No Print !! Miscellaneous Medical Supply [facility] ICD-10:Ileostomy in place (HCC) Z93.2 Ileostomy supplies and accessories Dispense one month of supplies Qty: 1 each, Refills: 99 PRESCRIPTION TYPE: Print naphazoline 0.025 % /pheniramine 0.3 % (NAPHCON-A) 0.025/0.3 % drop Apply one dr op to both eyes four times daily. Qty: 30 mL, Refills: 0 PRESCRIPTION TYPE: No Print ondansetron (ZOFRAN ODT) 4 mg rapid dissolve tablet Dissolve one tablet by mouth every [address] on tongue to dissolve. Qty: 30 tablet, Refills: 0 PRESCRIPTION TYPE: No Print oxybutynin XL (DITROPAN XL) 10 mg tablet Take one tablet by mouth daily. Qty: 90 tablet, Refills: 1 PRESCRIPTION TYPE: No Print pantoprazole DR (PROTONIX) 40 mg tablet Take one tablet by mouth twice daily. Qty: 90 tablet, Refills: 1 PRESCRIPTION TYPE: No Print polyethylene glycol 3350 (MIRALAX) 17 g packet Take one packet by mouth twice da alyssia as needed. Qty: 12 each, Refills: 3 PRESCRIPTION TYPE: No Print senna/docusate (SENOKOT-S) 8.6/50 mg tablet Take one tablet by mouth twice daily . Qty: 30 tablet, Refills: 1 PRESCRIPTION TYPE: No Print simethicone (MYLICON) 80 mg chew tablet Chew one tablet by mouth every 6 hours a s needed for Flatulence. Qty: 30 tablet, Refills: 1 PRESCRIPTION TYPE: No Print !! - Potential duplicate medications found. Please discuss with provider. The following medications were removed from your list. This list includes medic ations discontinued this stay and those removed from your prior med list in our system loperamide (IMODIUM A-D) 2 mg capsule micafungin (MYCAMINE) 100 mg/5 mL 100 mg in sodium chloride 0.9% (NS) 0.9 % 100 mL IVPB Return Appointments and Scheduled Appointments Scheduled appointments: Oct 20, 2020 11:00 AM PRO 30 with Alexander Rodriguez MD, UROLOGY PROCEDURE RM 1 Urology: [facility] (Urology) [address] [place] [address]. [address] 2, [address] [facility] [address] Oct 23, 2020 10:30 AM Telehealth PT Return with India Hassan MD Infectious Diseases: [facility] [place] (Internal Medicine) [address] [facility]. [address] 4, [address] [facility] [id number] Oct 23, 2020 2:[address] ABD/PELV W CONTRAST with [facility]: [place] ([facility]) [address] [facility] [address] Consults, Procedures, Diagnostics, Micro, Pathology Consults: NUTRITION SUPPORT SERVICE CONSULT WOUND/OSTOMY TEAM NURSE NUTRITION SUPPORT SERVICE CONSULT INFECTIOUS DISEASES PHYSICIAN Surgical Procedures & Dates: none Significant Diagnostic Studies, Micro and Procedures: noted in brief hospital co urse Significant Pathology: noted in brief hospital course Discharge Disposition, Condition Patient Disposition: Home with Home Health Care Condition at Discharge: Stable Code Status Code Status History Date Active Date Inactive Code Status Order ID 09/26/2020 [id number] 10/03/2020 1501 Full Code [id number] Nika Stark MD Inpati ent 09/04/2020 1941 09/21/2020 1750 Full Code [id number] Mohit Dacosta MD Inpatient Only showing the last 2 code statuses. Patient Instructions CBC AND DIFF Standing Status: Future Standing Exp. Date: 10/16/21 Please fax results to [phone] attcamilo Hassan Release to patient Immediate COMPREHENSIVE METABOLIC PANEL Standing Status: Future Standing Exp. Date: 10/16/21 Please send results to [phone] attcamilo Hassan Release to patient Immediate Regular Diet You have no dietary restriction. Please continue with a healthy balanced diet. Activity as Tolerated It is important to keep increasing your activity level after you leave the hosp ital. Moving around can help prevent blood clots, lung infection (pneumonia) an d other problems. Gradually increasing the number of times you are up moving ar ound will help you return to your normal activity level more quickly. Continue to increase the number of times you are up to the chair and walking daily to ret urn to your normal activity level. Begin to work towards your normal activity le maria luisa at discharge. Driving Restrictions No driving while taking pain medication. Lifting Restrictions Do not lift more than 10 pounds for 6 week(s). Incision Care Standard *Keep your incision clean and dry. *May shower 2 days following procedure. Avoid direct water contact to the incisi on. Take sponge baths, working around the incision during this time. *Do not submerge incision in tub, pool, hot tub, or wallace for 4 weeks. *Avoid applying deodorants, powders, creams, lotions, etc, to your incision for 4 weeks. *Usually there are no stitches to be removed. Steri-strips (strips of tape) will begin to fall off in 10-14 days. If they remain after 2 weeks, gently remove th em when they are damp after a shower. *Your incision should gradually look better each day. If you notice unusual swel ling, redness, drainage, have increasing pain at the site, or have a fever great er than 100 degrees, notify your physician immediately. Discharge Signs/Symptoms Standard Please contact your doctor if you have any of the following symptoms: temperature higher than 100.5 degrees F, uncontrolled pain, persistent nausea an d/or vomiting, severe abdominal pain, unable to have bowel movement or drainage with a foul odor. Questions About Your Stay Colon Rectal For questions or concerns regarding your hospital stay: -DURING BUSINESS HOUR (8:00 AM - 4:00 PM): Call [phone] and ask to speak with your surgeon's office. -AFTER BUSINESS HOURS (4:00 PM - 8:00 AM, on weekends, or holidays): Call [phone] and ask the band sawing machine operator to page the on-call surgery physician. Discharging attending physician: BRAN MARTELL [[id number]] Urinary Catheter Care General Urinary Catheter Care: Home [...] 2 *Foam tape to secure your catheter Ostomy Care General Ostomy Care General Ostomy Alf care instructions: *Empty bag when it is 1/3 full. *Change ostomy bag every 7 days or if it starts leaking. *When changing ostomy bag cleanse skin with water only. *Order ostomy supplies ahead of time so you don't run out. For more information visit the [employer] [place] website at www.[email or web address].org. PICC Line Alf Care Instructions: *Catheter must be covered with [...] for dressing or cap change i nstructions. Additional Orders: Case Management, Supplies, Home Health Home Health/DME HOME HEALTH/DME ONCE Comments: Colovesical fistula [N32.1] Wound drainage [T14.8XXA] Malnutrition (HCC) [E46] Abdominal fluid collection [R18.8] Home Health/Durable Medical Equipment Order Details Patient Name: Beverly Torres Medical Record Number: [id number] Agency Instructions: Start of care within 24 hours of hospital discharge. RN to complete general assessment, including vitals with temperature, monitor an d teach patient and/or caregiver medication management and compliance, monitor a nd teach pain management and pain medication compliance when necessary. Monitor and teach signs and symptoms of infection, monitor and teach disease management, including signs and symptoms, diet, who and when to call, hospital readmission avoidance. -Home health agency to provide weekly line care, lab draws, and assist patient a nd family with IV medication administration. -Please teach patient/family/caregivers IV management and line care. -Please monitor and maintain line per agency's protocol. Please change dressing every Friday. -Infusion Agency to provide IV medications, line supplies, bio-patch for dressin g changes, and perform instruction at bedside. -Line can be de-accessed when antibiotics are completed. -Please check with the patient's infectious disease physician prior to de-access ing. HOUSE MOVER HELPER: Peripherally Inserted Central Catheter (PICC) Line placed on: 09/12/20 Line location: Right brachial Line size: 4 spanish # of Lumens: 2 Dressing change due: 10/23/20 or sooner IV ANTIBIOTICS: -Patient has the following IV medication(s): Drug: Meropenem Dose: 2g Frequency: Every 8 hours Anticipate length of need till 11/07/19 Stop date to be determined by ID Physician. Drug: Micafungin Dose: 150 mg Frequency: Every 24 hours Anticipate length of need till 11/07/19 Stop date to be determined by ID Physician. ID NOTE AND LABS: Continue IV micafungin 150 mg daily(C.glabrata R-remi, R-flu) Continue IV meropenem 2 g every 8 hours (PsA, anaerobes) Continue p.o. linezolid 600 mg twice daily(VRE) Continue p.o. vancomycin 125 mg twice daily for C. difficile infection prophyla xis, continue until 2 days after other antibiotics stopped. Will need CBC/diff, CMP weekly faxed to [phone] Hassan; PCP; infusi on agency. If discharged to [facility], ID there will likely manage. Anticipate above antibiotics will need to be continued until fistula readdressed w/ potential cantu rgery. POUCHES SHOULD BE APPLIED IN THIS ORDER: Ostomy, Small open midline wounds x2, L ower fistula, Upper fistula Ostomy: Suggested Pouching Supplies:#[id number] 1.Change pouch with any sign of leaking. Do not reinforce leaking pouch wi th tape 2.Clean skin with water only - no soap or wipes 3.If skin is broken down surrounding stoma, sprinkle stoma powder and wipe away the excess 4.[place] no sting skin prep on powdered skin and let dry completely 5.Cut new pouch leaving /8"-1/4" of skin showing between the stoma and pouc h 6.Warm new pouch in palm of hands 7.Ensure skin is dry and apply new pouch 8.Lay warm hand over pouch once it's applied RN is responsible for continuing ostomy education in between visits from our ervice. This can be achieved by including patient (and family) in ostomy care ta sks such as pouch emptying and pouch changes. Open midline wounds x2: - clean skin with water only - apply a small piece of hydrofera blue (shiney site up) - place a small tegaderm over to secure Fistulas: Lower Midline Fistula: Suggested Pouching Supplies: Erasmo one piece pouch #[id number] ring #[id number] -Change pouch with any sign of leaking. Do not reinforce leaking pouch wit h tape -Clean skin with water only - no soap or wipes -[place]ondike no sting skin prep on bella-fistula skin, allow to dry completely -Cut new pouch to fit around fistula -Warm new pouch and paste ring in palm of hands - Stretch paste ring to fit on back of pouch where the hole was cut - Ensure skin is dry, stretch abdominal skin upwards to flatten skin as much a s possible and then apply new pouch -Lay warm hand over pouch once it's applied Upper Midline Fistula: Suggested Pouching Supplies: Woodland one piece pouch #[id number] ring #[id number] -Change pouch with any sign of leaking. Do not reinforce leaking pouch wit h tape -Clean skin with water only - no soap or wipes -Klondike no sting skin prep on bella-fistula skin, allow to dry completely -Cut new pouch to fit around fistula -Warm new pouch and paste ring in palm of hands - Stretch paste ring to fit on back of pouch where the hole was cut - Ensure skin is dry, stretch abdominal skin upwards to flatten skin as much a s possible and then apply new pouch -Lay warm hand over pouch once it's applied Clinical findings to support homebound status: Medically contraindicated Clinical findings to support home care services: Deficits in medical management, Requires instructions/administration of injections/IV therapy, Post-surgical or other wound and Ostomy management deficits I certify that this patient is under my care and that I, or a nurse practitioner or physician's health assistant working with me, had a iwiv-le-lppc encounter that keila ts the physician's enxl-lw-uhnr encounter requirements with this patient, This patient is under my care, and I have initiated the establishment of the [facility] of care. This patient will be followed by a physician after discharge, who w ill periodically review the plan of care. Dr. Bran Martell P: [phone] F: [phone] NPI# [id number] Geraldo Mcknight [phone]/F [phone] Infectious Disease office [phone]/ fax [phone] Question Answer Comment Attending Name/Contact Dr. Bran Martell P: [phone] F: [phone] NPI# [id number] PCP Name/Contact Geraldo Mcknight [phone]/F [phone] Specialist Name/Contact Infectious Disease office [phone]/ fax Home Health to Follow Specialist Signed: Jeffrey Loomis MD 10/16/2020 cc: Primary Care Physician: Geraldo Mcknight Referring physicians: Self, Referral Additional provider(s): Did we miss something? If additional records are needed, please fax a request on office letterhead to [phone]. Please include the patient's name, date of b irth, fax number and type of information needed. Additional request can be made by email at [email or web address]. For general questions of information about electronic records sharing, call [phone]. documented in this encounter Discharge Instructions * Discharge Instr - Case Management* Kelly Ramos, KOBI - 10/16/2020 10:11 AM CDT Your home health agency is [facility] [phone]. [facility] will call you tomorrow to arrange your first home health visit. Plea se be aware that the nurse is typically coming from another patient's home and w ill provide a time frame for visit, not a specific time. If you do not hear from your nurse within 48 hours of discharge, please call your home health agency vanessa escamilla at number listed above. Your home infusion agency is [facility] [phone]/ fax . They will provide you with any needed equipment or supplies, as well as you r home infusion medications. Please contact them directly if you have any questi ons or concerns about your IV abx. Please schedule follow up appointment with Geraldo Mcknight with in a month of d ischarge, please call [phone]. Thank you, and take care! Kelly Ramos POUCHES SHOULD BE APPLIED IN THIS ORDER: Ostomy, Small open midline wounds x2, L ower fistula, Upper fistula Ostomy: Suggested Pouching Supplies:#[id number] 1.Change pouch with any sign of leaking. Do not reinforce leaking pouch wi th tape 2.Clean skin with water only - no soap or wipes 3.If skin is broken down surrounding stoma, sprinkle stoma powder and wipe away the excess 4.Klondike no sting skin prep on powdered skin [...] such as pouch emptying and pouch changes. Open midline wounds x2: - clean skin with water only - apply a small piece of hydrofera blue (shiney site up) - place a small tegaderm over to secure Fistulas: Lower Midline Fistula: Suggested Pouching Supplies: Woodland one piece pouch #[id number] ring #[id number] -Change pouch with any sign of leaking. Do not reinforce leaking pouch wit h tape -Clean skin with water only - no soap or wipes -[place]ond[place] no sting skin prep on bella-fistula skin, allow to dry completely -Cut new pouch to fit around fistula -Warm new pouch and paste ring in palm of hands - Stretch paste ring to fit on back of pouch where the hole was cut - Ensure skin is dry, stretch abdominal skin upwards to flatten skin as much a s possible and then apply new pouch -Lay warm hand over pouch once it's applied Upper Midline Fistula: Suggested Pouching Supplies: Erasmo one piece pouch #[id number] ring #[id number] -Change pouch with any sign of leaking. Do not reinforce leaking pouch wit h tape -Clean skin with water only - no soap or wipes -[place]ondike no sting skin prep on bella-fistula skin, allow to dry completely -Cut new pouch to fit around fistula -Warm new pouch and paste ring in palm of hands - Stretch paste ring to fit on back of pouch where the hole was cut - Ensure skin is dry, stretch abdominal skin upwards to flatten skin as much a s possible and then apply new pouch -Lay warm hand over pouch once it's applied documented in this encounter Medications at Time [...] 50 mcg tablet tablet by mouth daily. 10/16/2020 meropenem (MERREM) 1 g/20 Administer 2 500 mL 3 mL injection grams over 3 hours intravenously every 8 hours. Tentatively through 10/12 or until discontinued by infectious diseases physician. 10/16/2020 methocarbamoL (ROBAXIN) Take one 30 tablet 1 750 mg tablet tablet by mouth twice daily as needed for Spasms. 10/17/2020 micafungin (MYCAMINE) 100 Administer 1 g 3 mg/5 mL 100 mg, 150 mg micafungin (MYCAMINE) 50 through vein mg/5 mL 50 mg in sodium every 24 chloride 0.9% (NS) 110 mL hours. IVPBIndications: Indications: intra-abdominal infection intra-abdomin al infection 10/03/2020 Miscellaneous Medical Colostomy 20 each Supply [facility] supplies and accessories Dispense twenty of each for one month of supplies Dx Colovesical fistula N32.1 10/03/2020 Miscellaneous Medical ICD-10:Ileost 1 each Supply [facility] ketan in place ([facility]) Z93.2 Ileostomy supplies and accessories Dispense one [...] every 6 hours as needed for Flatulence. 10/16/2020 10/20/2020 HYDROcodone/acetaminophen Take one 15 tablet 0 (NORCO) 5/325 mg tablet tablet by mouth every 6 hours as needed 10/03/2020 10/20/2020 hyoscyamine (ANASPAZ) Place one 30 tablet 1 0.125 mg rapid dissolve tablet under tablet tongue every 4 hours as needed. 10/16/2020 10/31/2020 linezolid (ZYVOX) 600 mg Take one 30 tablet 1 tablet tablet by mouth twice daily. Tentatively through 10/12 or until discontinued by infectious diseases physician. 10/03/2020 10/20/2020 oxybutynin XL (DITROPAN Take one 90 tablet 1 XL) 10 mg tablet tablet by mouth daily. 10/16/2020 10/31/2020 vancomycin (FIRVANQ) 25 Take 5 mL by 300 mL 0 mg/mL oral solution mouth twice daily. Discard after 14 days. documented as of this encounter Ordered Prescriptions Start Date End Date Prescription Sig Dispensed Refills 10/16/2020 methocarbamoL (ROBAXIN) Take one 30 tablet 1 750 mg tablet tablet by mouth twice daily as needed for Spasms. 10/16/2020 meropenem (MERREM) 1 g/20 Administer 2 500 mL 3 mL injection grams over 3 hours intravenously every 8 hours. Tentatively through 10/12 or until discontinued by infectious diseases physician. 10/17/2020 micafungin (MYCAMINE) 100 Administer 1 g 3 mg/5 mL 100 mg, 150 mg micafungin (MYCAMINE) 50 through vein mg/5 mL 50 mg in sodium every 24 chloride 0.9% (NS) 110 mL hours. IVPBIndications: Indications: intra-abdominal infection intra-abdomin al infection 10/16/2020 10/20/2020 HYDROcodone/acetaminophen Take one 15 tablet 0 (NORCO) 5/325 mg tablet tablet by mouth every 6 hours as needed 10/16/2020 10/31/2020 linezolid (ZYVOX) 600 mg Take one 30 tablet 1 tablet tablet by mouth twice daily. Tentatively through 10/12 or until discontinued by infectious diseases physician. 10/16/2020 10/31/2020 vancomycin (FIRVANQ) 25 Take 5 mL by 300 mL 0 mg/mL oral solution mouth twice daily. Discard after 14 days. documented in this encounter Discharge Disposition Code Departure Means Destination Disposition Wheelchair Home Health Care [facility] documented in this encounter Progress Notes * Argenis Ward RN - 10/16/2020 3:30 PM CDT Ostomy team continuing to follow for ongoing fistula pouching needs. Pouchs have been changed every day, at times every other days due to challenges of body hab itus, location of fistula and scar tissue. Patients discharge plan has been plac ement. No pouch issues noted during AM chart review, [facility] Secondary chart review at 1515 noted that patient is now discharging home. Due to plan for placement and patients inability to see her fi stula locations, pouching education has not been completed with patient or her f caty. Additionally patient has not complete colostomy pouch changes herself sin ce her stoma was created due to placement for discharge. Per CM HH has been set up. Concerns about discharge with no education voiced to CM. CM plan to ensure HH and family receive detailed instructions ostomy team haynes s placed in chart. Reports that patient and family states they feel comfortable with discharge. JACINTO Wilson, RN, TCRN Wound/Ostomy Nursing Consult Service Available via [employer] or [employer] -F [phone] After hours please contact wound/casework manager "comb machine operator" via Voalte * Gerson Duncan MD - 10/16/2020 11:30 AM CDT Images from the original note were not included. Daily Progress Note Today's Date: 10/16/2020 Name: Beverly Torres Admission Date: 10/10/2020 (LOS: 6 days) Assessment: Beverly Torres is a 70 y.o. female with large colovesical/vagi nal fistula s/p ex lap, LAR, resection of infected mesh, partial cystectomy, com plex cystorrhaphy in combination ([facility] 09/04), whose post-operative course c/b a bdominal fluid collection s/p IR drain (09/13), new abdominal fluid collections on CT A/P (09/26) s/p IR jvac placement 09/27. Admitted with erythema and midline drainage Principal Problem: Wound drainage Active Problems: Colovesical fistula Malnutrition (HCC) Abdominal fluid collection Plan: - CT showed improvement in abscesses. Jvac drains pulled 10/12 - ID antibiotic recommendations noted and appreciated, continue abx, regimen of IV Meropenem/Micafungin and PO Linezolid/Vancomycin for at least 2-3 more weeks - Continue regular diet - bowel regimen - Wound/ostomy consult for wound manager data for midline wound - Salomon is to remain in place at discharge per Urology - PT/OT - ppx: ye Garza - dispo: CA7, possible discharge today if able to get home infusion set up and w ith updated ID plan to this end Discussed with Dr. Martell Subjective: No acute events overnight. Pain controlled. No nausea/emesis, tolerating regular diet. Denies fevers/chills. Objective: BP: (99-113)/(51-74) Temp: [36.6 C (97.9 F)-36.9 C (98.5 F)] Pulse: [64-80] Respirations: [16 PER MINUTE-18 PER MINUTE] SpO2: [92 %-96 %] Body mass index is 31.26 kg/m. BMI Category: Obesity (30 to <40) Lab Results Component Value Date/Time NA 138 10/16/2020 03:35 AM K 4.2 10/16/2020 03:35 AM CL 102 10/16/2020 03:35 AM CO2 26 10/16/2020 03:35 AM BUN 28 (H) 10/16/2020 03:35 AM CR 0.85 10/16/2020 03:35 AM MG 2.2 10/16/2020 03:35 AM PO4 5.0 (H) 10/16/2020 03:35 AM Lab Results Component Value Date/Time HGB 9.2 (L) 10/11/2020 04:00 AM HCT 30.1 (L) 10/11/2020 04:00 AM WBC 5.8 10/11/2020 04:00 AM PLTCT 325 10/11/2020 04:00 AM INR 1.2 09/26/2020 06:58 PM Lab Results Component Value Date/Time GLUPOC 109 (H) 10/13/2020 04:57 PM GLUPOC 112 (H) 10/13/2020 12:22 PM GLUPOC 94 10/13/2020 09:09 AM Anemia: Yes - chronic Renal Function: Normal Acidosis:Normal Electrolyte Abnormalities: Potassium: Normal Sodium: Normal Calcium:Normal Magnesium:Normal Phosphorous:Normal Physical Exam Gen: Alert, NAD HEENT: Normocephalic, EOMI grossly, no scleral icterus CV: Normal rate 60s, regular rhythm Resp: Unlabored breathing, symmetric chest rise on RA Abd: Soft, NT, ND. Midline wounds with purlent drainage. Ext: No edema, no deformities Skin: No rashes or lesions, warm, dry Neuro: Motor and sensation intact grossly Malnutrition Details: Active Wounds Wounds 09/12/20 0908 Pressure Injury Coccyx (Active) 09/12/20 0908 Coccyx Wound Type: Pressure Injury Pressure Injury Stages: Stage 3 Pressure Injury Present On Inpatient Admission: N Wound/Pressure Injury Orientation: Wound Description (Comments): Wound Type:: Wound Image 10/10/20 1300 Agree With My Assessment? Yes 10/16/20 0300 Wound Dressing Status Open to air 10/16/20 0800 Wound Dressing and / or Treatment Barrier cream 10/16/20 0800 Wound Drainage Amount None 10/16/20 0800 Wound Base Assessment [place] 10/16/20 08 Surrounding Skin Assessment Dry;Intact 10/16/20 08 Wound Site Closure None 10/16/20 0800 Wound Status (Wound Team Only) Being Treated 10/10/20 1300 Wound Length (cm) 1 cm 10/10/20 1300 Wound Width (cm) 1 cm 10/10/20 1300 Wound Depth (cm) 0.1 cm 10/10/20 1300 Wound Surface Area (cm^2) 1 cm^2 10/10/20 1300 Wound Volume (cm^3) 0.1 cm^3 10/10/20 1300 Wound Healing % (Wound Team Only) 96.88 10/10/20 1300 Number of days: 34 Wounds 10/10/20 0018 Pressure Injury Lateral;Left Ankle (Active) 10/10/20 0018 Ankle Wound Type: Pressure Injury Pressure Injury Stages: Stage 1 Pressure Injury Present On Inpatient Admission: Y Wound/Pressure Injury Orientation: Lateral;Left Wound Description (Comments): Wound Type:: Agree With My Assessment? Yes 10/16/20 0300 Wound Dressing Status None 10/16/20 0800 Wound Dressing and / or Treatment Barrier cream 10/14/20 1000 Wound Drainage Amount None 10/16/20 0800 Wound Base Assessment Dry;[place] 10/16/20 0800 Surrounding Skin Assessment Dry;Intact 10/16/20 0800 Wound Site Closure Open to Air 10/16/20 0800 Number of days: 6 Wounds 10/10/20 0014 Surgical Incision Upper Abdomen (Active) 10/10/20 0014 Abdomen Wound Type: Surgical Incision Pressure Injury Stages: Pressure Injury Present On Inpatient Admission: Wound/Pressure Injury Orientation: Upper Wound Description (Comments): Wound Type:: Agree With My Assessment? Yes 10/16/20 0300 Wound Dressing Status Intact 10/16/20 0800 Wound Dressing and / or Treatment Hydrofera blue ready 10/16/20 0800 Wound Securement / Protective Device Hypafix tape 10/16/20 0800 Wound Drainage Description Serous 10/12/20 1100 Wound Drainage Amount Scant 10/12/20 1100 Wound Base Assessment Dressing intact, base not assessed 10/16/20 08 Surrounding Skin Assessment Dry;Intact 10/16/20 08 Wound Site Closure Wound Adhesive Bandage 10/16/20 08 Wound Status (Wound Team Only) Being Treated 10/12/20 1100 Wound Length (cm) 0.3 cm 10/11/20 1400 Wound Width (cm) 0.3 cm 10/11/20 1400 Wound Depth (cm) 0.3 cm 10/11/20 1400 Wound Surface Area (cm^2) 0.09 cm^2 10/11/20 1400 Wound Volume (cm^3) 0.03 cm^3 10/11/20 1400 Tunneling in CM (Wound Team Only) 3 cm 10/11/20 1400 Tunnelling Location (Wound Team Only) 1:00 10/11/20 1400 Number of days: 6 Wounds 10/11/20 1430 Surgical Incision Lower Abdomen (Active) 10/11/20 1430 Abdomen Wound Type: Surgical Incision Pressure Injury Stages: Pressure Injury Present On Inpatient Admission: Wound/Pressure Injury Orientation: Lower Wound Description (Comments): Wound Type:: Agree With My Assessment? Yes 10/16/20 0300 Wound Dressing Status Intact 10/16/20 0800 Wound Dressing and / or Treatment Hydrofera blue ready 10/16/20 0800 Wound Securement / Protective Device Hypafix tape 10/16/20 0800 Wound Drainage Description Creamy 10/12/20 1100 Wound Drainage Amount Small 10/12/20 1100 Wound Base Assessment Moist;Red 10/16/20 08 Surrounding Skin Assessment Dry;[place] 10/16/20 08 Wound Site Closure Wound Adhesive Bandage 10/16/20 08 Wound Status (Wound Team Only) Being Treated 10/12/20 1100 Wound Length (cm) 0.2 cm 10/11/20 1400 Wound Width (cm) 0.2 cm 10/11/20 1400 Wound Depth (cm) 0.3 cm 10/11/20 1400 Wound Surface Area (cm^2) 0.04 cm^2 10/11/20 1400 Wound Volume (cm^3) 0.01 cm^3 10/11/20 1400 Tunneling in CM (Wound Team Only) 3 cm 10/11/20 1400 Tunnelling Location (Wound Team Only) 3:00 10/11/20 1400 Number of days: 5 Gerson Duncan MD Please page [phone] M-F 6am-6pm, otherwise page [phone] * Rachelle Kohli RD - 10/16/2020 11:29 AM CDT Nutrition Support Service (NSS) Sign off Note Subjective: PN stopped 10/14. Pt overall tolerating Regular diet with improving P O intake, but struggles some with volume tolerance. No reported n/v. RD previous ly reviewed education on easy to digest, high calorie/protein nutrition therapy to help patient succeed at discharge and written education noted to have been gi felix over the weekend; continue to reinforce prn. Current Diet Order: Regular Height (cm): 152.4 cm (60") Admit Weight (kg): 72.6 kg (160 lb 0.9 oz)--bed 10/10 Current Weight (kg): 72.6 kg (160 lb 0.9 oz)--no new from admission Desired Body Weight (kg): 58 kg, BMI 24.9 Estimated Kcal Needs:9941-4526(25-28kcal/kg desired weight of 58 kg) Estimated Protein Needs:80-90(1.5g/kg desired weight of 58 kg A/P: Beverly Mckinnon a70 y.o.female with large colovesical/vaginal fistula s/pex lap, LAR, resection of infected mesh, partial cystectomy, comple x cystorrhaphy in combination(09/04), whose post-operative course c/babdomin al fluid collection s/p IR drain (09/13),now directly admitted from clinic due tonewabdominal fluid collections on CT A/P (09/26).Well known to Clinical Nutrition and Nutrition Support Service from prior admissions with most recent d ischarged on 09/21. TPN continued at facility with regular diet. TPN initiated dalila r goal while NPO. RD adjusted regimen as indicated by clinical status changes an d PO appropriateness/tolerance. Pt overall tolerating Regular diet well with no reported n/v. RD previously rev iewed education on easy to digest, high calorie/protein nutrition therapy to hel p patient succeed at discharge and written education noted to have been given ov er the weekend by RD with noted continued improving PO Intake, but pt struggling some with volume tolerance. CT noted to show improvement in abscesses an Jvac d rains pulled 10/12. TPN was stopped 10/14. NSS signing off to unit RD for further nutrition care. Rachelle Kohli MA, RD, LD, [facility] Voalte Me or [employer] *[phone] * Madina Simms, PT - 10/16/2020 9:20 AM CDT PHYSICAL THERAPY PROGRESS NOTE Name: Beverly Torres : 1950 Age: 70 y.o. Admission Date: 10/10/2020 LOS: 6 days Mobility Patient Turn/Position: Chair Progressive Mobility Level: Walk in hallway Distance Walked (feet): 200 ft Level of Assistance: Stand by assistance Assistive Device: Walker Time Tolerated: 11-30 minutes Activity Limited By: Fatigue Subjective Significant hospital events: Hx of large colovesical/vaginal fistula s/p ex lap, LAR, resection of infected mesh, partial cystectomy, complex cystorrhaphy in co mbination 09/04, post-op course complicated by abdominal fluid collection s/p IR drain 09/13, new abdominal fluid collections 09/26 s/p IR jvac placement 09/27. Admit with erythema and midline drainage. Mental / Cognitive Status: Alert;Oriented;Cooperative;Follows Commands Persons Present: Physical Therapist;Provider Pain: Patient has no complaint of pain Pain Interventions: Patient agrees to participate in therapy Ambulation Assist: Independent Mobility in Community without Device Patient Owned Equipment: Roller Walker Home Situation: Lives with Family(fiance, currently at [facility] post-COVID course) Type of Home: House Entry Stairs: No Stairs In-Home Stairs: No Stairs Comments: Patient admitted from assisted facility. Patient would like to discharge home, reports her family would be able to provide assistance as needed . Bed Mobility/Transfer Transfer Type: Sit to Stand Transfer: Assistance [...] Assist with Mobility;Instructed Patient to Use Call Light(chair alarm activat ed) Gait Gait Distance: 200 feet Gait: Assistance Level: Standby Assist Gait: Assistive Device: Roller Walker Gait: Descriptors: Pace: Slow;Swing-Through Gait;No balance loss;Normal step [facility] Activity Limited By: Patient Choice Assessment/Progress Impaired Mobility Due To: Decreased Strength;Decreased Activity Tolerance Assessment/Progress: Should Improve w/ Continued PT Comments: Patient likely functioning near baseline and would be safe to return h [facility] with intermittent family assist if she feels comfortable. Will benefit from ongoing mobilization during inpatient stay. AM-PAC 6 Clicks Basic Mobility Inpatient Turning [...] Walker, Independently, Ongoing Plan Treatment Interventions: Mobility Training;Strengthening;Endurance Training Plan Frequency: 1-2 Days per Week PT Plan for Next Visit: Ambulation training, BLE strengthening. biomedical instrument technician to assist with ongoing mobilization, ADLs and/or exerc ise per instructions of licensed therapy staff. PT Discharge Recommendations Recommendation: Home with intermittent supervision/assistance Recommendation for Therapy Post Discharge: Home health Patient Currently Requires Supervision For: Mobility;Making decisions about safe ty Patient Currently Requires Equipment: Owns what is needed Therapist: Madina Simms PT, DPT [id number] Date: 10/16/2020 * Mirela Hilliard, OT - 10/16/2020 9:03 AM CDT OCCUPATIONAL THERAPY PROGRESS NOTE Name: Beverly Torres : 1950 Age: 70 y.o. Admission Date: 10/10/2020 LOS: 6 days Mobility Patient Turn/Position: Chair Progressive Mobility Level: Walk in room Distance Walked (feet): 50 ft Level of Assistance: Stand by assistance Assistive Device: Walker Time Tolerated: 11-30 minutes Activity Limited By: Fatigue Subjective Pertinent Dx per Physician: 10/11 after she represented with increased drainage f rom her midline incision around her HEMA tube, also with some erythema around this area, likely irritation Patient Stated Goals: "Get out to see my fiance" Precautions: Falls Pain / Complaints: Patient agrees to participate in therapy Pain Location: Abdomen;Incisional Pain Level Current: 2 Mild pain Comments: RN cleared patient to participate in OT session. At beginning of sessi on, patient was supine in bed. At end of session, patient was sitting EOB with flor siddiqui and PT staff. Handoff completed with PT staff Objective Psychosocial Status: Willing and Cooperative to Participate Persons Present: Physical Therapist;Provider Home Living Type of Home: House Comment: per patient, from facility with 07/10 supervision and care, no environme ntal barriers Prior Function Level Of [place]: Needed assistance with ADLs;Needed assistance with homema eleazar Other Function Comments: per patient, able to ambulate in room and hallways at f acility using walker with minimal assistance because of medical lines ADL's Where Assessed: Edge of Bed;In Bathroom;Standing at Sink Grooming Assist: Stand By Assist Grooming Deficits: Setup UE Dressing Assist: Stand By Assist UE Dressing Deficits: Setup;Thread RUE;Thread LUE;Pull Around Back;Pull Down In Back LE Dressing Assist: Stand By Assist LE Dressing Deficits: Don/Doff R Shoe;Don/Doff L Shoe Comment: Completed bed mobility from supine to sitting EOB with SBA, completed m obility in room ~50ft with SBA using walker. Completed LB dressing to don bilate al slip on shoes with setup assistance, completed UB dressing to don hospital go wn around back with setup assistance, completed standing grooming tasks to brush teeth with SBA using walker. ADL Mobility Bed Mobility: Supine to Sit: Standby assist Transfer Type: Sit to stand Transfer: Assistance Level: To/from;Toilet;Standby assist Transfer: Assistive Device: Roller walker End of Activity Status: Sitting at edge of bed;Nursing notified Sitting Balance: Standby assist Standing Balance: Standby assist;2 UE support Gait Distance: 50 feet Gait: Assistance Level: Standby assist Gait: Assistive Device: Roller walker Activity Tolerance Endurance: 3/5 Tolerates 25-30 Minutes Exercise w/Multiple Rests Cognition Overall Cognitive Status: WFL to Adequately Complete Self Care Tasks Safely Comprehension: WFL to Adequately Complete Self Care Tasks Safely Orientation: Alert & Oriented x4 Attention: Awake/Alert UE AROM Overall BUE AROM WNL: Yes UE Strength / Tone Overall Strength / Tone: 4/5 ;WFL Able to Perform ADL Tasks Comment: generalized weakness Education Persons Educated: Patient Barriers To Learning: None Noted Patient Response: Verbalized and Demo Understanding Topics: Role of OT, Goals for Therapy;Home safety;ADL Compensatory Techniques;Ad aptive Devices for ADLs Goal Formulation: With Patient Assessment Assessment: Decreased ADL Status;Decreased UE Strength;Decreased Endurance;Decre ased Self-Care Trans;Decreased High-Level ADLs Prognosis: Good;w/Cont OT s/p Acute Discharge Goal Formulation: Patient Comments: Patient tolerated treatment session well, making appropriate progress towards OT goals. Patient would benefit from continued OT intervention in acute care setting. AM-PAC 6 Clicks Daily Activity Inpatient Putting [...] G Code Modifier: CJ Plan OT Frequency: 2-3x/week OT Plan for Next Visit: progress mobility, standing endurance ADL Goals Patient Will Perform All ADL's: w/ Modified [place] Functional Transfer Goals Pt Will Perform All Functional Transfers: Modified Independent OT Discharge Recommendations Recommendation: Home with consistent supervision/assistance Patient Currently Requires Physical Assist With: All personal care ADLs;All home functioning ADLs Patient Currently Requires Equipment: Owns what is needed Comments: Patient reporting wanting to go home, patient would requires 07/10 supe rvision upon returning home. May have to stay at inpatient setting if family ghada ble to provide. Therapist: SHAUN Mohr/Valerie [id number] Date: 10/16/2020 * Juany Ferguson MD - 10/16/2020 8:15 AM CDT Infectious Disease Progress Note Patient Name: Beverly Torres Attending Physician/Primary Service: Bran Martell DO Today's Date: 10/16/2020 Assessment: Ms. Torres is a very pleasant 70-year-old female who has a very complex GI histor y including multiple fistulas that have required partial cystectomy and colectom y further complicated by subincisional abscesses with multiple multidrug-resista nt organisms. Her most recent admission was 09/26-10/03 for persistent feculent d rainage coming from 2 incisional abscess sites. She had 2 drains placed (09/13, 09/27). She was discharged to SNF with IV meropenem, linezolid, and micafungin f or VRE, Pseudomonas aeruginosa, and Brenda glabrata. She returns to the hospit al significant drainage coming from her incisional ulcer, and it was noted that the cultures from 09/26 resulted back with C glabrata that is resistant to micafu ngin. CT scan from 10/10/2020 shows improvement in the size of the fluid collecti ons along her abdominal wall. 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 The culture of her current abdominal drainage grew Pseudomonas aeru ginosa that is still sensitive to meropenem as well as Brenda glabrata again, r epeat susceptibilities pending. Will continue IV micafungin 150 mg, IV meropen em 2 g every 8 hours for MDR Pseudomonas and suspected anaerobes, and PO linezol id 600 mg every 12 hours along with PO vancomycin for prophylaxis for a couple m ore weeks until repeat CT scan performed or surgical plan outlined. Colovesicular fistula s/p takedown partial cystectomy (09/04) Subincisional abdominal abscess (VRE, C.glabrata, PSAE) s/p PTC drain (09/13) Cystectomy leak possible redeveloping fistula, abscess/hematoma (09/26) s/p PTC d rain (09/27) - 2011 diverticulitis c/b rectovaginal fistula - 12/2011 s/p sigmoidectomy, vaginal cuff repair ([facility], Dr. 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 Leal + Dr. Vargas) - 07/2013 s/p ventral hernia repair with panniculectomy - 09/2013 recurrent rectovaginal fistula, s/p diverting transverse colostomy - 08/2014 s/p colostomy takedown --> c/b anastomotic breakdown - 2015 s/p lap redo of colorectal anastomosis - 2015 onwards --> persistent colovesicular fistula, chronic fecaluria, dysuria - 06/28/20 admit [facility] septic shock, pyelo - 06/28 CT a/p - L 5-cm extrarenal pelvic abscess, air in ureter, dilated R urete r, colovesicular fistula - 06/29 s/p R PCN urine cx VRE, B.thetaiotaomicron/other anaerobes, C.glabrata - 07/10 nephrostomy <100k C.parapsilosis (S fluc) - 07/10 urine cx >100k C.parapsilosis - 07/20-09/04 on ceftriaxone/flagyl/fluc (completed 2 wks asia) - 09/04 s/p colovesicula fistula takedown, partial cystectomy - 09/11 CT a/p - anterior abdominal wall collection just under incision - 09/13 s/p IR drain placement - 09/13 cx VRE (S Lz, dapto remi 4), PSAE (S cefe remi 8), C.glabrata (R flu S asia ) - 09/26 in colorectal clinic, feculant [...] azo, aztreonam; S to meropenem REMI 2) -09/27 abscess fluid growing C glabrata (R fluconazole, now R micafungin) - 10/02 CT abd/pelv w/ decreased size of fluid collection, some surrounding fluid around other drain fluid collection felt to be reactive by surgery - 10/10 CT abdomen/pelvis with decreased size of fluid collection along the right rectus muscle/abdominal wall and stable size of the midline extraperitoneal flu id and gas collection. - 10/12 HEMA drains pulled due to minimal output Prior MRSE CLABSI (09/08/20) - PICC removed, vancomycin x 7 days Recent C.diff (06/2020) - On p.o. vancomycin for prophylaxis HTN Hypothyroid Thrombocytosis Recommendations: 1. Continue IV micafungin 150 mg daily (C.glabrata R-remi, R-flu) 2. Continue IV meropenem 2 g every 8 hours (PsA, anaerobes) 3. Continue p.o. linezolid 600 mg twice daily (VRE) 4. Anticipate continuing micafungin, meropenem and linezolid for another 2-3 wee ks, potentially longer depending on surgical plan and CT findings 5. Continue p.o. vancomycin 125 mg twice daily for C. difficile infection prophy laxis, continue until 2 days after other antibiotics stopped. 6. If discharged to SNF or home, will need CBC/diff, CMP weekly faxed to [phone] Hassan. She has f/u w/ her scheduled on 10/23. 7. F/u abdominal culture results 8. Have contacted companies re: potential novel antifungal use in the future but applications are pending 9. Continue to monitor for antibiotic toxicity/side effects 10. Should she develop fevers, increasing leukocytosis, hemodynamic instability, please obtain blood and PICC line cultures, and consider broadening antibiotics to daptomycin and even antifungal coverage to amphotericin B - if this occurs, please reach out to ID ID will continue to peripherally follow while she remains inpatient. Juany Ferguson MD Infectious Diseases Pager [phone] Please use Voalte to contact ID. Subjective Interval History Afebrile, VSS. She reports less output from the wound opening over the weekend. She's been having firmer stools and issue w/ her ostomy bag coming unsealed. Abdominal pain around incision still much improved. No nausea or vomiting. She is hoping to discharge home soon. Antimicrobial Start date End date Micafungin 09/14 active Meropenem 10/01 active Linezolid 10/03 active Daptomycin 09/26 10/03 P.o. vancomycin 07/14 active Estimated Creatinine Clearance: 56.3 mL/min (based on SCr of 0.85 mg/dL). Medications Scheduled Meds:buPROPion XL (WELLBUTRIN XL) tablet 150 mg, 150 mg, Oral, QDAY enoxaparin (LOVENOX) syringe 40 mg, 40 mg, Subcutaneous, QDAY(21) gabapentin (NEURONTIN) capsule 300 mg, 300 mg, Oral, TID levothyroxine (SYNTHROID) tablet 50 mcg, 50 mcg, Oral, QDAY linezolid (ZYVOX) tablet 600 mg, 600 mg, Oral, BID meropenem (MERREM) injection 2 g, 2 g, Intravenous, Q8H* micafungin (MYCAMINE) 150 mg in sodium chloride 0.9% (NS) 110 mL IVPB, 150 mg, I ntravenous, Q24H* oxybutynin XL (DITROPAN XL) tablet 10 mg, 10 mg, Oral, QDAY pantoprazole DR (PROTONIX) tablet 40 mg, 40 mg, Oral, BID polyethylene glycol 3350 (MIRALAX) packet 17 g, 17 g, Oral, QDAY senna/docusate (SENOKOT-S) tablet 1 tablet, 1 tablet, Oral, BID sodium chloride PF 0.9% flush 10 mL, 10 mL, Flush, FLUSH TID vancomycin (FIRVANQ) oral solution 125 mg, 125 mg, Oral, BID Continuous Infusions: PRN and Respiratory Meds:guaiFENesin LA BID PRN, HYDROcodone/acetaminophen Q6H P RN, hyoscyamine Q4H PRN, methocarbamoL BID PRN, ondansetron (ZOFRAN) IV Q4H PRN, simethicone Q6H PRN Objective Physical Examination Vital Signs: Last Vital Signs: 24 Hour Ran ge BP: 99/58 (10/17 807) Temp: 36.8 C (98.2 F) (10/17 807) Pulse: 68 (10/17 807) Respirations: 16 PER MINUTE (10/17 807) SpO2: 94 % (10/17 807) BP: (99-113)/(51-74) Temp: [36.6 C (97.9 F)-36.9 C (98.5 F)] Pulse: [64-80] Respirations: [16 PER MINUTE-18 PER MINUTE] SpO2: [92 %-96 %] Gen: Resting comfortably in bed, no acute distress HEENT: Conjunctival normal, moist mucous membranes, no thrush Lungs: Clear auscultation bilaterally without adventitious sounds CV: RRR without murmur Abd: Soft, nondistended, nontender, hernia, midline incision w/ opening w/ bag i n place w/ green fluid MSK/Skin: No rashes or edema noted Neuro/Psych: Alert and oriented x4. Moves limbs symmetrically and bilaterally, cranial nerves are grossly intact, normal mood and affect, normal speech and tho ught process, shows insight and judgment into her medical conditions Lines: RUE PICC Line - dressing in place clean/dry/intact without any surrounding eryth cain or tenderness Ostomy bag over lower midline fistula - with brownish, turbid fluid in bag Ostomy bag over upper midline fistula Laboratory Hematology No results for input(s): WBC, HGB, HCT, PLTCT, PTT, INR in the last 72 hours. Chemistry Recent Labs 10/14/20 0201 10/15/20 0410 10/16/20 0335 NA 136* 138 138 K 4.3 4.3 4.2 CL 100 101 102 CO2 26 26 26 BUN 32* 30* 28* CR 0.83 0.90 0.85 GFR >60 >60 >60 GLU 89 76 85 CA 9.2 9.3 9.1 PO4 4.2 4.0 5.0* Microbiology, Radiology and other Diagnostics Review Microbiology: 09/27/2020 abdominal fluid culture: 2 colonies Brenda glabrata (resistant to remi afungin, resistant to fluconazole) 5 colonies Pseudomonas aeruginosa (R-pip/tazo , Rcefepime), VRE 10/11/2020 abdominal fluid culture: Moderate growth Pseudomonas aeruginosa (S-becky openem, I-pip/tazo), moderate growth Brenda glabrata. G/S with many budding yea st, moderate GNR, Rare GPC Radiology: 10/10 CT scan abdomen/pelvis with contrast 1. Decrease in size of complex, loculated fluid and gas collection associated with the right rectus musculature with indwelling drain in place. 2. No significant change in midline extraperitoneal gas and fluid collection which surrounds the loculated right anterior abdominal fluid collection and is drained by the midline drainage catheter. Associated with this fluid collection is an open midline abdominal wound with surrounding soft tissue thickening, not significantly changed since 10/02/2020. 3. Indwelling left nephroureteral stent without hydronephrosis. 4. Prior anterior resection and right abdominal colostomy. No bowel obstruction or pneumoperitoneum. 5. Cholelithiasis with persistent mild gallbladder dilatation which may be from prolonged fasting. 6. Unchanged large left ventral abdominal wall hernia containing normal caliber loops of large and small bowel. * Gerson Duncan MD - 10/15/2020 7:01 AM CDT Images from the original note were not included. Daily Progress Note Today's Date: 10/15/2020 Name: Beverly Torres Admission Date: 10/10/2020 (LOS: 5 days) Assessment: Beverly Torres is a 70 y.o. female with large colovesical/vagi nal fistula s/p ex lap, LAR, resection of infected mesh, partial cystectomy, com plex cystorrhaphy in combination (Wyre 09/04), whose post-operative course c/b a bdominal fluid collection s/p IR drain (09/13), new abdominal fluid collections on CT A/P (09/26) s/p IR jvac placement 09/27. Admitted with erythema and midline drainage Principal Problem: Wound drainage Active Problems: Colovesical fistula Malnutrition (HCC) Abdominal fluid collection Plan: - CT showed improvement in abscesses. Jvac drains pulled 10/12 - ID antibiotic recommendations noted and appreciated, continue abx - Continue regular diet - bowel regimen - Wound/ostomy consult for wound manager data for midline wound - PT/OT - ppx: SCDs, lovenox - dispo: continue inpatient care, pending placement Discussed with Dr. Martell Subjective: No acute events overnight. Pain controlled. Tolerating diet, no nausea/emesis. Objective: BP: (114-137)/(50-81) Temp: [36.4 C (97.6 F)-37.4 C (99.4 F)] Pulse: [68-87] Respirations: [17 PER MINUTE] SpO2: [93 %-99 %] Body mass index is 31.26 kg/m. BMI Category: Obesity (30 to <40) Lab Results Component Value Date/Time NA 138 10/15/2020 04:10 AM K 4.3 10/15/2020 04:10 AM CL 101 10/15/2020 04:10 AM CO2 26 10/15/2020 04:10 AM BUN 30 (H) 10/15/2020 04:10 AM CR 0.90 10/15/2020 04:10 AM MG 2.3 10/15/2020 04:10 AM PO4 4.0 10/15/2020 04:10 AM Lab Results Component Value Date/Time HGB 9.2 (L) 10/11/2020 04:00 AM HCT 30.1 (L) 10/11/2020 04:00 AM WBC 5.8 10/11/2020 04:00 AM PLTCT 325 10/11/2020 04:00 AM INR 1.2 09/26/2020 06:58 PM Lab Results Component Value Date/Time GLUPOC 109 (H) 10/13/2020 04:57 PM GLUPOC 112 (H) 10/13/2020 12:22 PM GLUPOC 94 10/13/2020 09:09 AM Anemia: Yes - chronic Renal Function: Normal Acidosis:Normal Electrolyte Abnormalities: Potassium: Normal Sodium: Normal Calcium:Normal Magnesium:Normal Phosphorous:Normal Physical Exam Gen: Alert, NAD HEENT: Normocephalic, EOMI grossly, no scleral icterus CV: Normal rate 60s, regular rhythm, no murmurs Resp: Unlabored breathing, symmetric chest rise Abd: Soft, NT, ND. Midline wounds with purlent drainage. Ext: No edema, no deformities Skin: No rashes or lesions, warm, dry Neuro: Motor and sensation intact grossly Malnutrition Details: Active Wounds Wounds 09/12/20 09 Pressure Injury Coccyx (Active) 09/12/20907 Coccyx Wound Type: Pressure Injury Pressure Injury Stages: Stage 3 Pressure Injury Present On Inpatient Admission: N Wound/Pressure Injury Orientation: Wound Description (Comments): Wound Type:: Wound Image 10/10/20 1300 Agree With My Assessment? Yes 10/14/20 0400 Wound Dressing Status Open to air 10/14/202119 Wound Dressing and / or Treatment Barrier cream 10/14/202119 Wound Drainage Amount None 10/14/202119 Wound Base Assessment [place] 10/14/202119 Surrounding Skin Assessment Dry;Intact 10/14/202119 Wound Site Closure None 10/14/202119 Wound Status (Wound Team Only) Being Treated 10/10/20 1300 Wound Length (cm) 1 cm 10/10/20 1300 Wound Width (cm) 1 cm 10/10/20 1300 Wound Depth (cm) 0.1 cm 10/10/20 1300 Wound Surface Area (cm^2) 1 cm^2 10/10/20 1300 Wound Volume (cm^3) 0.1 cm^3 10/10/20 1300 Wound Healing % (Wound Team Only) 96.88 10/10/20 1300 Number of days: 33 Wounds 10/10/20 0018 Pressure Injury Lateral;Left Ankle (Active) 10/10/20 0018 Ankle Wound Type: Pressure Injury Pressure Injury Stages: Stage 1 Pressure Injury Present On Inpatient Admission: Y Wound/Pressure Injury Orientation: Lateral;Left Wound Description (Comments): Wound Type:: Agree With My Assessment? Yes 10/14/20 0400 Wound Dressing Status None 10/14/202119 Wound Dressing and / or Treatment Barrier cream 10/14/20 1000 Wound Drainage Amount None 10/14/202119 Wound Base Assessment Dry;Eschar;Non-blanchable 10/14/202119 Surrounding Skin Assessment Dry;Intact 10/14/202119 Wound Site Closure Open to Air 10/14/202119 Number of days: 5 Wounds 10/10/20 0014 Surgical Incision Upper Abdomen (Active) 10/10/20 0014 Abdomen Wound Type: Surgical Incision Pressure Injury Stages: Pressure Injury Present On Inpatient Admission: Wound/Pressure Injury Orientation: Upper Wound Description (Comments): Wound Type:: Agree With My Assessment? Yes 10/14/20 0400 Wound Dressing Status Intact 10/14/202119 Wound Dressing and / or Treatment Hydrofera blue ready 10/14/202119 Wound Securement / Protective Device Hypafix tape 10/14/202119 Wound Drainage Description Serous 10/12/20 1100 Wound Drainage Amount Scant 10/12/20 1100 Wound Base Assessment Dressing intact, base not assessed 10/14/202119 Surrounding Skin Assessment Dry;Red 10/14/202119 Wound Site Closure Wound Adhesive Bandage 10/14/20 1000 Wound Status (Wound Team Only) Being Treated 10/12/20 1100 Wound Length (cm) 0.3 cm 10/11/20 1400 Wound Width (cm) 0.3 cm 10/11/20 1400 Wound Depth (cm) 0.3 cm 10/11/20 1400 Wound Surface Area (cm^2) 0.09 cm^2 10/11/20 1400 Wound Volume (cm^3) 0.03 cm^3 10/11/20 1400 Tunneling in CM (Wound Team Only) 3 cm 10/11/20 1400 Tunnelling Location (Wound Team Only) 1:00 10/11/20 1400 Number of days: 5 Wounds 10/11/20 1430 Surgical Incision Lower Abdomen (Active) 10/11/20 1430 Abdomen Wound Type: Surgical Incision Pressure Injury Stages: Pressure Injury Present On Inpatient Admission: Wound/Pressure Injury Orientation: Lower Wound Description (Comments): Wound Type:: Agree With My Assessment? Yes 10/14/20 0400 Wound Dressing Status Intact 10/14/202119 Wound Dressing and / or Treatment Hydrofera blue ready 10/14/202119 Wound Securement / Protective Device Hypafix tape 10/14/202119 Wound Drainage Description Creamy 10/12/20 1100 Wound Drainage Amount Small 10/12/20 1100 Wound Base Assessment Dressing intact, base not assessed 10/14/202119 Surrounding Skin Assessment Dry;[place] 10/14/202119 Wound Site Closure Wound Adhesive Bandage 10/14/20 1000 Wound Status (Wound Team Only) Being Treated 10/12/20 1100 Wound Length (cm) 0.2 cm 10/11/20 1400 Wound Width (cm) 0.2 cm 10/11/20 1400 Wound Depth (cm) 0.3 cm 10/11/20 1400 Wound Surface Area (cm^2) 0.04 cm^2 10/11/20 1400 Wound Volume (cm^3) 0.01 cm^3 10/11/20 1400 Tunneling in CM (Wound Team Only) 3 cm 10/11/20 1400 Tunnelling Location (Wound Team Only) 3:00 10/11/20 1400 Number of days: 4 Gerson Duncan MD Please page [phone] M-F 6am-6pm, otherwise page [phone] * Nika Stark MD - 10/14/2020 8:42 AM CDT Images from the original note were not included. Daily Progress Note Today's Date: 10/14/2020 Name: Beverly Torres Admission Date: 10/10/2020 (LOS: 4 days) Assessment: Beverly Torres is a 70 y.o. female with large colovesical/vagi nal fistula s/p ex lap, LAR, resection of infected mesh, partial cystectomy, com plex cystorrhaphy in combination (Wyre 09/04), whose post-operative course c/b a bdominal fluid collection s/p IR drain (09/13), new abdominal fluid collections on CT A/P (09/26) s/p IR jvac placement 09/27. Admitted with erythema and midline drainage Principal Problem: Wound drainage Active Problems: Colovesical fistula Malnutrition (HCC) Abdominal fluid collection Plan: - CT showed improvement in abscesses. Jvac drains pulled 10/12 - ID antibiotic recommendations noted and appreciated. - Regular diet, discontinue TPN - bowel regimen - Continue abx - Wound/ostomy consult for wound manager data for midline wound - PT/OT - ppx: Greg, laurax - dispo: continue inpatient care Discussed with Dr. Martell Subjective: No acute events overnight. Doing well. Denies any pain this morning. Tolerating regular diet without nausea or vomiting. Objective: BP: (114-127)/(48-77) Temp: [36.4 C (97.6 F)-37 C (98.6 F)] Pulse: [64-77] Respirations: [17 PER MINUTE-18 PER MINUTE] SpO2: [92 %-97 %] Body mass index is 31.26 kg/m. BMI Category: Obesity (30 to <40) Lab Results Component Value Date/Time NA 136 (L) 10/14/2020 02:01 AM K 4.3 10/14/2020 02:01 AM CL 100 10/14/2020 02:01 AM CO2 26 10/14/2020 02:01 AM BUN 32 (H) 10/14/2020 02:01 AM CR 0.83 10/14/2020 02:01 AM MG 2.3 10/14/2020 02:01 AM PO4 4.2 10/14/2020 02:01 AM Lab Results Component Value Date/Time HGB 9.2 (L) 10/11/2020 04:00 AM HCT 30.1 (L) 10/11/2020 04:00 AM WBC 5.8 10/11/2020 04:00 AM PLTCT 325 10/11/2020 04:00 AM INR 1.2 09/26/2020 06:58 PM Lab Results Component Value Date/Time GLUPOC 109 (H) 10/13/2020 04:57 PM GLUPOC 112 (H) 10/13/2020 12:22 PM GLUPOC 94 10/13/2020 09:09 AM Anemia: Yes - chronic Renal Function: Normal Acidosis:Normal Electrolyte Abnormalities: Potassium: Normal Sodium: Normal Calcium:Normal Magnesium:Normal Phosphorous:Normal Physical Exam Gen: Alert, NAD HEENT: Normocephalic, EOMI grossly, no scleral icterus CV: Regular rate & rhythm, no murmurs Resp: Unlabored breathing, symmetric chest rise Abd: Soft, NT, ND. Midline wounds with purlent drainage. Ext: No edema, no deformities Skin: No rashes or lesions, warm, dry Neuro: Motor and sensation intact grossly Malnutrition Details: Active Wounds Wounds 09/12/20 0908 Pressure Injury Coccyx (Active) 09/12/20 09 Coccyx Wound Type: Pressure Injury Pressure Injury Stages: Stage 3 Pressure Injury Present On Inpatient Admission: N Wound/Pressure Injury Orientation: Wound Description (Comments): Wound Type:: Wound Image 10/10/20 1300 Agree With My Assessment? Yes 10/14/20 0400 Wound Dressing Status Open to air 10/13/202199 Wound Drainage Amount None 10/13/202199 Wound Base Assessment [place] 10/13/202199 Surrounding Skin Assessment Dry;Intact 10/13/202199 Wound Site Closure None 10/13/202199 Wound Status (Wound Team Only) Being Treated 10/10/20 1300 Wound Length (cm) 1 cm 10/10/20 1300 Wound Width (cm) 1 cm 10/10/20 1300 Wound Depth (cm) 0.1 cm 10/10/20 1300 Wound Surface Area (cm^2) 1 cm^2 10/10/20 1300 Wound Volume (cm^3) 0.1 cm^3 10/10/20 1300 Wound Healing % (Wound Team Only) 96.88 10/10/20 1300 Number of days: 32 Wounds 10/10/20 0018 Pressure Injury Lateral;Left Ankle (Active) 10/10/20 0018 Ankle Wound Type: Pressure Injury Pressure Injury Stages: Stage 1 Pressure Injury Present On Inpatient Admission: Y Wound/Pressure Injury Orientation: Lateral;Left Wound Description (Comments): Wound Type:: Agree With My Assessment? Yes 10/14/20399 Wound Dressing Status None 10/13/202199 Wound Dressing and / or Treatment Barrier cream 10/13/202199 Wound Drainage Amount None 10/13/202199 Wound Base Assessment Non-blanchable 10/13/202199 Surrounding Skin Assessment Dry;Intact 10/13/202199 Wound Site Closure None;Open to Air 10/13/202199 Number of days: 4 Wounds 10/10/2013 Surgical Incision Upper Abdomen (Active) 10/10/2013 Abdomen Wound Type: Surgical Incision Pressure Injury Stages: Pressure Injury Present On Inpatient Admission: Wound/Pressure Injury Orientation: Upper Wound Description (Comments): Wound Type:: Agree With My Assessment? Yes 10/14/20399 Wound Dressing Status Intact 10/13/202199 Wound Dressing and / or Treatment Hydrofera blue ready 10/13/202199 Wound Securement / Protective Device Hypafix tape 10/13/202199 Wound Drainage Description Serous 10/12/20 1100 Wound Drainage Amount Scant 10/12/20 1100 Wound Base Assessment Dressing intact, base not assessed 10/13/202199 Surrounding Skin Assessment Dry;Red 10/13/202199 Wound Site Closure Wound Adhesive Bandage 10/13/202199 Wound Status (Wound Team Only) Being Treated 10/12/20 1100 Wound Length (cm) 0.3 cm 10/11/20 1400 Wound Width (cm) 0.3 cm 10/11/20 1400 Wound Depth (cm) 0.3 cm 10/11/20 1400 Wound Surface Area (cm^2) 0.09 cm^2 10/11/20 1400 Wound Volume (cm^3) 0.03 cm^3 10/11/20 1400 Tunneling in CM (Wound Team Only) 3 cm 10/11/20 1400 Tunnelling Location (Wound Team Only) 1:00 10/11/20 1400 Number of days: 4 Wounds 10/11/20 1430 Surgical Incision Lower Abdomen (Active) 10/11/20 1430 Abdomen Wound Type: Surgical Incision Pressure Injury Stages: Pressure Injury Present On Inpatient Admission: Wound/Pressure Injury Orientation: Lower Wound Description (Comments): Wound Type:: Agree With My Assessment? Yes 10/14/20 0400 Wound Dressing Status Intact 10/13/202199 Wound Dressing and / or Treatment Hydrofera blue ready;Transparent (i.e. Tegader m) 10/13/202199 Wound Drainage Description Creamy 10/12/20 1100 Wound Drainage Amount Small 10/12/20 1100 Wound Base Assessment Dressing intact, base not assessed 10/13/202199 Surrounding Skin Assessment Dry 10/13/202199 Wound Site Closure Wound Adhesive Bandage 10/13/202199 Wound Status (Wound Team Only) Being Treated 10/12/20 1100 Wound Length (cm) 0.2 cm 10/11/20 1400 Wound Width (cm) 0.2 cm 10/11/20 1400 Wound Depth (cm) 0.3 cm 10/11/20 1400 Wound Surface Area (cm^2) 0.04 cm^2 10/11/20 1400 Wound Volume (cm^3) 0.01 cm^3 10/11/20 1400 Tunneling in CM (Wound Team Only) 3 cm 10/11/20 1400 Tunnelling Location (Wound Team Only) 3:00 10/11/20 1400 Number of days: 3 Nika Stark MD Please page [phone] M-F 6am-6pm, otherwise page [phone] * Sharmila Francisco DO - 10/13/2020 3:15 PM CDT Infectious Disease Progress Note Patient Name: Beverly Torres Attending Physician/Primary Service: Bran Martell DO Today's Date: 10/13/2020 Assessment: Ms. Torres is a very pleasant 70-year-old female who has a very complex GI histor y including multiple fistulas that have required partial cystectomy and colectom y further complicated by subincisional abscesses with multiple multidrug-resista nt organisms. Her most recent admission was 09/26-10/03 for persistent feculent d rainage coming from 2 incisional abscess sites. She had 2 drains placed (09/13, 09/27). She was discharged to SNF with IV meropenem, linezolid, and micafungin f or VRE, Pseudomonas aeruginosa, and Brenda glabrata. She returns to the hospit al significant drainage coming from her incisional ulcer, and it was noted that the cultures from 09/26 resulted back with C glabrata that is resistant to micafu ngin. Thankfully, she is not showing any systemic signs of infection at this ti me. CT scan from 10/10/2020 shows improvement in the size of the fluid collectio ns along her abdominal wall. While it is true that she possibly has a micafungi n-resistant Brenda glabrata (lab is confirming this), it is doubtful that this is the primary reason for her persistent drainage. The sample abdominal fluid appears to be growing Pseudomonas aeruginosa that is sensitive to meropenem sti ll as well as yeast, pending further speciation/susceptibilities. Please emilio nue IV micafungin 150 mg, IV meropenem 2 g every 8 hours for MDR Pseudomonas and suspected anaerobes, and PO linezolid 600 mg every 12 hours. Unfortunately, we do not anticipate she can be transitioned to all PO medications at this time. Colovesicular fistula s/p takedown partial cystectomy (09/04) Subincisional abdominal abscess (VRE, C.glabrata, PSAE) s/p PTC drain (09/13) Cystectomy leak possible redeveloping fistula, abscess/hematoma (09/26) s/p PTC d rain (09/27) - 2011 diverticulitis c/b rectovaginal fistula - 12/2011 s/p sigmoidectomy, vaginal cuff repair ([facility], Dr. 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 Leal + Dr. Vargas) - 07/2013 s/p ventral hernia repair with panniculectomy - 09/2013 recurrent rectovaginal fistula, s/p diverting transverse colostomy - 08/2014 s/p colostomy takedown --> c/b anastomotic breakdown - 2015 s/p lap redo of colorectal anastomosis - 2015 onwards --> persistent colovesicular fistula, chronic fecaluria, dysuria - 06/28/20 admit [facility] septic shock, pyelo - 06/28 CT a/p - L 5-cm extrarenal pelvic abscess, air in ureter, dilated R urete r, colovesicular fistula - 06/29 s/p R PCN urine cx VRE, B.thetaiotaomicron/other anaerobes, C.glabrata - 07/10 nephrostomy <100k C.parapsilosis (S fluc) - 07/10 urine cx >100k C.parapsilosis - 07/20-09/04 on ceftriaxone/flagyl/fluc (completed 2 wks asia) - 09/04 s/p colovesicula fistula takedown, partial cystectomy - 09/11 CT a/p - anterior abdominal wall collection just under incision - 09/13 s/p IR drain placement - 09/13 cx VRE (S Lz, dapto remi 4), PSAE (S cefe remi 8), C.glabrata (R flu S [place] ) - 09/26 in colorectal clinic, feculant [...] azo, aztreonam; S to meropenem REMI 2) -09/27 abscess fluid growing C glabrata (R fluconazole, now R micafungin) - 10/02 CT abd/pelv w/ decreased size of fluid collection, some surrounding fluid around other drain fluid collection felt to be reactive by surgery - 10/10 CT abdomen/pelvis with decreased size of fluid collection along the right rectus muscle/abdominal wall and stable size of the midline extraperitoneal flu id and gas collection. Prior MRSE CLABSI (09/08/20) - PICC removed, vancomycin x 7 days Recent C.diff (06/2020) - On p.o. vancomycin for prophylaxis HTN Hypothyroid Thrombocytosis Recommendations: Continue IV micafungin 150 mg daily (C.glabrata R-remi, R-flu) Continue IV meropenem 2 g every 8 hours (PsA, anaerobes) Continue p.o. linezolid 600 mg twice daily (VRE) Anticipate continuing micafungin, meropenem and linezolid for another 2-3 weeks, potentially longer depending on Continue p.o. vancomycin 125 mg twice daily for C. difficile infection prophylax is, continue until 2 days after other antibiotics stopped. If discharged to SNF or home, will need CBC/diff, CMP weekly faxed to [phone] Hassan. If discharged to [facility], ID there will likely manage. Anticipat e above antibiotics will need to be continued until fistula readdressed w/ poten tial surgery. F/u abdominal culture results Have contacted companies re: potential novel antifungal use but applications are pending Continue to monitor for antibiotic toxicity/side effects Should she develop fevers, increasing leukocytosis, hemodynamic instability, ple ase obtain blood and PICC line cultures, and consider broadening antibiotics to daptomycin and even antifungal coverage to amphotericin B - if this occurs, plea se reach out to ID Patient seen and discussed with Dr. Ferguson, ID Attending. Thank you for involving us in this patient's care. ID will continue to follow e patient in person again on Friday. If questions or concerns arise over the wee kend, please contact me by Voalte or pager or page the ID fellow on-call ([phone]). Sharmila Francisco, DO PGY-4, ID Fellow Pager [phone] Please contact via Voalte [facility] Division of Infectious Diseases Subjective Interval History -Vac drains pulled Afebrile, hemodynamically stable, labs are at their baseline. She continues to have some drainage from her ostomy bag over the lower abdominal fistula. She denies any pain, nausea, vomiting, or increased colostomy output. She still has a low appetite, but is trying to eat more. She is very tired this morning. Antimicrobial Start date End date Micafungin 100 mg daily 09/14 active Meropenem 10/01 active Linezolid 10/03 active Daptomycin 09/26 10/03 P.o. vancomycin 07/14 active Estimated Creatinine Clearance: 56.3 mL/min (based on SCr of 0.85 mg/dL). Medications Scheduled Meds:buPROPion XL (WELLBUTRIN XL) tablet 150 mg, 150 mg, Oral, QDAY enoxaparin (LOVENOX) syringe 40 mg, 40 mg, Subcutaneous, QDAY(21) gabapentin (NEURONTIN) capsule 300 mg, 300 mg, Oral, TID levothyroxine (SYNTHROID) tablet 50 mcg, 50 mcg, Oral, QDAY linezolid (ZYVOX) tablet 600 mg, 600 mg, Oral, BID meropenem (MERREM) injection 2 g, 2 g, Intravenous, Q8H* micafungin (MYCAMINE) 150 mg in sodium chloride 0.9% (NS) 110 mL IVPB, 150 mg, I ntravenous, Q24H* oxybutynin XL (DITROPAN XL) tablet 10 mg, 10 mg, Oral, QDAY pantoprazole DR (PROTONIX) tablet 40 mg, 40 mg, Oral, BID senna/docusate (SENOKOT-S) tablet 1 tablet, 1 tablet, Oral, BID sodium chloride PF 0.9% flush 10 mL, 10 mL, Flush, FLUSH TID vancomycin (FIRVANQ) oral solution 125 mg, 125 mg, Oral, BID Continuous Infusions: Adult Cyclic Parenteral Nutrition (PN) PRN and Respiratory Meds:guaiFENesin LA BID PRN, HYDROcodone/acetaminophen Q6H P RN, hyoscyamine Q4H PRN, methocarbamoL BID PRN, ondansetron (ZOFRAN) IV Q4H PRN, polyethylene glycol 3350 QDAY PRN, simethicone Q6H PRN Objective Physical Examination Vital Signs: Last Vital Signs: 24 Hour Ran ge BP: 115/70 (10/13 1221) Temp: 36.7 C (98.1 F) (10/13 1221) Pulse: 69 (10/13 1221) Respirations: 18 PER MINUTE (10/13 1221) SpO2: 94 % (10/13 1221) BP: (98-127)/(61-75) Temp: [36.7 C (98 F)-36.9 C (98.5 F)] Pulse: [64-84] Respirations: [16 PER MINUTE-18 PER MINUTE] SpO2: [94 %-97 %] Gen: Resting comfortably in bed, no acute distress HEENT: Conjunctival normal, moist mucous membranes, no thrush Lungs: Clear auscultation bilaterally without adventitious sounds CV: RRR without murmur Abd: Soft, nondistended, nontender MSK/Skin: No rashes or edema noted Neuro/Psych: Alert and oriented x4. Moves limbs symmetrically and bilaterally, cranial nerves are grossly intact, normal mood and affect, normal speech and tho ught process, shows insight and judgment into her medical conditions Lines: RUE PICC Line - dressing in place clean/dry/intact without any surrounding eryth cain or tenderness Ostomy bag over lower midline fistula - with brownish, turbid fluid in bag Ostomy bag over upper midline fistula Laboratory Hematology Recent Labs 10/11/20 0400 WBC 5.8 HGB 9.2* HCT 30.1* PLTCT 325 Chemistry Recent Labs 10/11/20 0400 10/12/20 0510 10/13/20 0330 NA 139 139 139 K 4.3 4.3 4.3 CL 106 104 104 CO2 24 27 26 BUN 25 31* 32* CR 0.78 0.80 0.85 GFR >60 >60 >60 GLU 97 85 81 CA 9.0 8.8 9.1 PO4 4.3 3.5 4.0 ALBUMIN 3.2* -- 3.1* ALKPHOS 112* -- 105 AST 17 -- 18 ALT 10 -- 13 TOTBILI 0.3 -- 0.3 Microbiology, Radiology and other Diagnostics Review Microbiology: 09/27/2020 abdominal fluid culture: 2 colonies Brenda glabrata (resistant to remi afungin, resistant to fluconazole) 5 colonies Pseudomonas aeruginosa (R-pip/tazo , Rcefepime), VRE 10/11/2020 abdominal fluid culture: Moderate growth Pseudomonas aeruginosa (S-becky openem, I-pip/tazo), moderate growth yeast . G/S with many budding yeast, modera te GNR, Rare GPC Radiology: 10/10 CT scan abdomen/pelvis with contrast 1. Decrease in size of complex, loculated fluid and gas collection associated with the right rectus musculature with indwelling drain in place. 2. No significant change in midline extraperitoneal gas and fluid collection which surrounds the loculated right anterior abdominal fluid collection and is drained by the midline drainage catheter. Associated with this fluid collection is an open midline abdominal wound with surrounding soft tissue thickening, not significantly changed since 10/02/2020. 3. Indwelling left nephroureteral stent without hydronephrosis. 4. Prior anterior resection and right abdominal colostomy. No bowel obstruction or pneumoperitoneum. 5. Cholelithiasis with persistent mild gallbladder dilatation which may be from prolonged fasting. 6. Unchanged large left ventral abdominal wall hernia containing normal caliber loops of large and small bowel. Associated attestation - Juany Ferguson MD - 10/13/2020 3:51 PM CDT ATTESTATION I personally performed the jurado portions of the E/M visit, discussed case with e fellow and concur with fellow documentation of history, physical exam, assessm ent, and treatment plan unless otherwise noted. Staff name: Juany Ferguson MD Date: 10/13/2020 Will continue meropenem, micafungin and linezolid for another couple weeks as we ll as PO vanc. Unfortunately due to antimicrobial resistance, have limited PO op tions. Have also confirmed w/ microbiology that her C. Glabrata isolate grown la admission was confirmed R to micafungin but will continue at high dose for po tentially some benefit, as only other options would be amphotericin or a novel a ntifungal. If discharged, pt will f/u with Dr. Hassan and urology. Thank you for involving us in this patient's care. ID will continue to follow [facility] patient in person again on Friday. If questions or concerns arise over the we kend, please contact me by Voalte or pager or page the ID fellow on-call ([phone]). Juany Ferguson MD Infectious Diseases Pager [phone] Please use Voalte to contact ID. * Argenis Ward RN - 10/13/2020 12:09 PM CDT Images from the original note were not included. Wound Ostomy Note NAME:Beverly Torres :1950 AGE: 70 y.o. ADMISSION DATE: 10/10/2020 DAYS ADMITTED: LOS: 3 days Reason for Consult/Visit: fistula management Assessment/Plan: Principal Problem: Wound drainage Active Problems: Colovesical fistula Malnutrition (HCC) Abdominal fluid collection Wound/Ostomy team continuing to follow for fistula management. Upon arrival to y patients ostomy pouch was leaking at 10:00, this is the first time patient has ever had a pouch leak. Only change has been that patient is now using a abd bin edson to help with the pain associated with her hernia. Additionally patient stool is rather thick. Recommend discontinuing use of binder or cut a small hole to a llow the pouch to come through. Patient also requested a stool softener from her RN. Pouch changed with out any complications. Next attention was focused on fistula pouches. There was moisture trapping noted under the pouch of the upper midline fistula, this drainage was coming from the drain that the providers just pulled, not from the the fistula. Entire pouching system for both fistulas had to be changed due to concern for moisture trapping under her pouch. Pouches and dressing changes completed with out complications. POUCHES SHOULD BE APPLIED IN THIS ORDER: Ostomy, Small open midline wounds x2, L ower fistula, Upper fistula Ostomy: Suggested Pouching Supplies:#[id number] 1.Change pouch with any sign of leaking. Do not reinforce leaking pouch wi th tape 2.Clean skin with water only - no soap or wipes 3.If skin is broken down surrounding stoma, sprinkle stoma powder and wipe away the excess 4.[place] no sting skin prep on powdered skin [...] such as pouch emptying and pouch changes. Open midline wounds x2: - clean skin with water only - apply a small piece of hydrofera blue (shiney site up) - place a small tegaderm over to secure Fistulas: Lower Midline Fistula: Suggested Pouching Supplies: Erasmo one piece pouch #[id number] ring #[id number] -Change pouch with any sign of leaking. Do not reinforce leaking pouch wit h tape -Clean skin with water only - no soap or wipes -[place] no sting skin prep on bella-fistula skin, allow to dry completely -Cut new pouch to fit around fistula -Warm new pouch and paste ring in palm of hands - Stretch paste ring to fit on back of pouch where the hole was cut - Ensure skin is dry, stretch abdominal skin upwards to flatten skin as much a s possible and then apply new pouch -Lay warm hand over pouch once it's applied Upper Midline Fistula: Suggested Pouching Supplies: [place] one piece pouch #[id number] ring #[id number] -Change pouch with any sign of leaking. Do not reinforce leaking pouch wit h tape -Clean skin with water only - no soap or wipes -[place] no sting skin prep on bella-fistula skin, allow to dry completely -Cut new pouch to fit around fistula -Warm new pouch and paste ring in palm of hands - Stretch paste ring to fit on back of pouch where the hole was cut - Ensure skin is dry, stretch abdominal skin upwards to flatten skin as much a s possible and then apply new pouch -Lay warm hand over pouch once it's applied Colostomy 09/04/20 1419 Upper Right Quadrant (Active) 09/04/20 1419 Upper Right Quadrant Agree With My Assessment? Yes 10/13/20 0000 Stoma Assessment Clean;Red;Bleeding 10/13/20 09 Drainage Description Brown 10/13/20 09 Peristomal Skin Assessment Dry;Intact 10/13/20 09 Dressing Status Changed/New 10/13/20 09 Drain Output (ml) 0 ml 10/13/20 0907 Fistula Midline- Upper (Active) 10/11/20 1402 Midline- Upper Ostomy Orientation: Other (Comment) Agree With My Assessment? Yes 10/13/20 0000 Stoma Assessment [place];Clean 10/13/20 0900 Drainage Description Trivedi 10/13/20899 Dressing Status Changed/New 10/13/20 09 Drainage Amount Small 10/13/20899 Drain Output (ml) 0 ml 10/13/20 0538 Fistula Midline- Lower (Active) 10/11/20 1404 Midline- Lower Ostomy Orientation: Other (Comment) Agree With My Assessment? Yes 10/13/20 0000 Stoma Assessment Red 10/13/20 09 Drainage Description [place]rivedi 10/13/20899 Dressing Status Changed/New 10/13/20 09 Drainage Amount Scant 10/13/20899 Drain Output (ml) 0 ml 10/13/20 0907 JACINTO Wilson, RN, TCRN Wound/Ostomy Nursing Consult Service Available via [employer] or [employer] [id number] After hours please contact wound/casework manager "comb machine operator" via Voalte * Naomie Nolan RD - 10/13/2020 12:04 PM CDT Nutrition Support Service (NSS) Initial Consult Note Chart/labs reviewed: Lytes at appropriate levels, optimizing K/Phos going into t he weekend to prevent elevated values. Patient appears dry on AM labs, increasin g total volume by 220 mL. Discussed with patient this morning, while she ate dec ent volumes (3 meals) yesterday, she is not feeling well enough to eat meals tod ay. Provided with snack of frosted flakes and 2% milk. Reviewed with patient TPN plan of care. Discussing options with social work, given patient was declined by LTACH. Primary team deeming patient does not need TPN at discharge. Reached out to resident to discuss needs. Patient likely to remain admitted through the we ekend. Addendum: Discussed with primary team, expect that patient is healing well based on imaging and should be able to tolerate nutrition and succeed with PO intake. Discussed with patient, agreeable to plan. Will provide education on easy to di gest, high calorie/protein nutrition therapy to help patient succeed at discharg e. Plan to continue TPN through the weekend. Pertinent Labs: 10/13/2020 03:30 Sodium 139 Potassium 4.3 Chloride 104 CO2 26 Anion Gap 9 BUN 32 (H) Creatinine 0.85 Glucose 81 Albumin 3.1 (L) Calcium 9.1 Magnesium 2.3 Total Bilirubin 0.3 Bilirubin, Direct <0.1 Total Protein 7.1 Phosphorus 4.0 AST (SGOT) 18 ALT (SGPT) 13 Alk Phos 105 Triglycerides 164 (H) Estimated Kcal Needs: 2762-7239 (25-28 kcal/kg desired weight of 58 kg) Estimated Protein Needs: 80-90 (1.5 g/kg desired weight of 58 kg PN Orders (to start at 20:30): provides 1420 kcal Volume: 1980ml (90-180ml/hr, 12-hour cycle) Macronutrients: 85g amino acids (goal), 200g dextrose (goal), 200ml lipid (goal) Lytes/Additives: 205mEq Na (2/3 NS equivalent), 55mEq K+, 10mEq calcium, 14mEq m agnesium, 10mmol Phos, 10ml MVI, 1ml trace elements, 300mg vitamin C, Cl:Acetate 2:1 Plan / Recommendations: Continue TPN while GI function is impaired; limit PO to small, easy to digest portions to help with healing and maintenance of gut integrity. Outside electrolyte and fluid replacement per primary team; NSS to make bauer es to TPN routinely -, weekends per on-call. Naomie Nolan RD, LD, [facility] Office: [phone] [facility], [facility] Connect * Mirela Hilliard OT - 10/13/2020 9:25 AM CDT OCCUPATIONAL THERAPY NOTE Name: Beverly Torres : 1950 Age: 70 y.o. Admission Date: 10/10/2020 LOS: 3 days 858: OT attempted treatment session. Patient declined therapy due to being on a phone call with family. OT will follow up to provide intervention as indicated. Therapist: SHAUN Mohr/Valerie [id number] Date: 10/13/2020 * Dayanara Arrieta MD - 10/13/2020 5:30 AM CDT Images from the original note were not included. Daily Progress Note Today's Date: 10/13/2020 Name: Beverly Torres Admission Date: 10/10/2020 (LOS: 3 days) Assessment: Beverly Torres is a 70 y.o. female with large colovesical/vagi nal fistula s/p ex lap, LAR, resection of infected mesh, partial cystectomy, com plex cystorrhaphy in combination (Wyre 09/04), whose post-operative course c/b a bdominal fluid collection s/p IR drain (09/13), new abdominal fluid collections on CT A/P (09/26) s/p IR jvac placement 09/27. Admitted with erythema and midline drainage Principal Problem: Wound drainage Active Problems: Colovesical fistula Malnutrition (HCC) Abdominal fluid collection Plan: - CT showed improvement in abscesses. Jvac drains pulled 10/12 - ID rec increased micafungin dose, re-sent cultures of midline wound, re-runnin g sensitivities - Regular diet, TPN (will not need TPN on discharge) - Restart bowel regimen - Continue abx - Wound/ostomy consult for wound manager data for midline wound - PT/OT - ppx: SCDs, lovenox - dispo: continue inpatient care, plan for placement when abx plan finalized Discussed with Dr. Martell Subjective: No acute events overnight. Denies pain. No nausea or emesis. Tolerating diet. S juan daniel working Objective: BP: (98-126)/(47-74) Temp: [36.7 C (98 F)-36.9 C (98.5 F)] Pulse: [70-84] Respirations: [16 PER MINUTE-18 PER MINUTE] SpO2: [94 %-97 %] Body mass index is 31.26 kg/m. BMI Category: Obesity (30 to <40) Lab Results Component Value Date/Time NA 139 10/13/2020 03:30 AM K 4.3 10/13/2020 03:30 AM CL 104 10/13/2020 03:30 AM CO2 26 10/13/2020 03:30 AM BUN 32 (H) 10/13/2020 03:30 AM CR 0.85 10/13/2020 03:30 AM MG 2.3 10/13/2020 03:30 AM PO4 4.0 10/13/2020 03:30 AM Lab Results Component Value Date/Time HGB 9.2 (L) 10/11/2020 04:00 AM HCT 30.1 (L) 10/11/2020 04:00 AM WBC 5.8 10/11/2020 04:00 AM PLTCT 325 10/11/2020 04:00 AM INR 1.2 09/26/2020 06:58 PM Lab Results Component Value Date/Time GLUPOC 85 10/13/2020 02:58 AM GLUPOC 107 (H) 10/11/2020 04:10 AM GLUPOC 93 10/10/2020 10:06 PM Anemia: Yes - chronic Renal Function: Normal Acidosis:Normal Electrolyte Abnormalities: Potassium: Normal Sodium: Normal Calcium:Normal Magnesium:Normal Phosphorous:Normal Physical Exam Gen: Alert, NAD HEENT: Normocephalic, EOMI grossly, no scleral icterus CV: Regular rate & rhythm, no murmurs Resp: Unlabored breathing, symmetric chest rise Abd: Soft, NT, ND. Midline wounds with purlent drainage. Ext: No edema, no deformities Skin: No rashes or lesions, warm, dry Neuro: Motor and sensation intact grossly Malnutrition Details: Active Wounds Wounds 09/12/20 09 Pressure Injury Coccyx (Active) 09/12/20907 Coccyx Wound Type: Pressure Injury Pressure Injury Stages: Stage 3 Pressure Injury Present On Inpatient Admission: N Wound/Pressure Injury Orientation: Wound Description (Comments): Wound Type:: Wound Image 10/10/20 1300 Agree With My Assessment? Yes 10/12/20 1800 Wound Dressing Status Open to air 10/12/201999 Wound Drainage Amount None 10/12/201999 Wound Base Assessment [place] 10/12/201999 Surrounding Skin Assessment Dry;Intact 10/12/201999 Wound Site Closure None 10/12/201999 Wound Status (Wound Team Only) Being Treated 10/10/20 1300 Wound Length (cm) 1 cm 10/10/20 1300 Wound Width (cm) 1 cm 10/10/20 1300 Wound Depth (cm) 0.1 cm 10/10/20 1300 Wound Surface Area (cm^2) 1 cm^2 10/10/20 1300 Wound Volume (cm^3) 0.1 cm^3 10/10/20 1300 Wound Healing % (Wound Team Only) 96.88 10/10/20 1300 Number of days: 31 Wounds 10/10/20 0018 Pressure Injury Lateral;Left Ankle (Active) 10/10/20 0018 Ankle Wound Type: Pressure Injury Pressure Injury Stages: Stage 1 Pressure Injury Present On Inpatient Admission: Y Wound/Pressure Injury Orientation: Lateral;Left Wound Description (Comments): Wound Type:: Agree With My Assessment? Yes 10/12/20 0505 Wound Dressing Status None 10/12/201999 Wound Dressing and / or Treatment Barrier cream 10/11/202105 Wound Drainage Amount None 10/12/201999 Wound Base Assessment Non-blanchable 10/11/202105 Surrounding Skin Assessment Dry;Intact 10/12/201999 Wound Site Closure Open to Air 10/12/201999 Number of days: 3 Wounds 10/10/20 0014 Surgical Incision Upper Abdomen (Active) 10/10/20 0014 Abdomen Wound Type: Surgical Incision Pressure Injury Stages: Pressure Injury Present On Inpatient Admission: Wound/Pressure Injury Orientation: Upper Wound Description (Comments): Wound Type:: Agree With My Assessment? Yes, except 10/12/20 1800 Wound Dressing Status Intact 10/12/201999 Wound Dressing and / or Treatment Hydrofera blue ready;Transparent (i.e. Tegader m) 10/12/201999 Wound Securement / Protective Device Hypafix tape 10/10/20 0014 Wound Drainage Description Serous 10/12/20 1100 Wound Drainage Amount Scant 10/12/20 1100 Wound Base Assessment Yellow;Slough 10/12/20 1100 Surrounding Skin Assessment Dry;Red 10/12/20 1100 Wound Site Closure Wound Adhesive Bandage 10/12/201999 Wound Status (Wound Team Only) Being Treated 10/12/20 1100 Wound Length (cm) 0.3 cm 10/11/20 1400 Wound Width (cm) 0.3 cm 10/11/20 1400 Wound Depth (cm) 0.3 cm 10/11/20 1400 Wound Surface Area (cm^2) 0.09 cm^2 10/11/20 1400 Wound Volume (cm^3) 0.03 cm^3 10/11/20 1400 Tunneling in CM (Wound Team Only) 3 cm 10/11/20 1400 Tunnelling Location (Wound Team Only) 1:00 10/11/20 1400 Number of days: 3 Wounds 10/11/20 1430 Surgical Incision Lower Abdomen (Active) 10/11/20 1430 Abdomen Wound Type: Surgical Incision Pressure Injury Stages: Pressure Injury Present On Inpatient Admission: Wound/Pressure Injury Orientation: Lower Wound Description (Comments): Wound Type:: Agree With My Assessment? Yes, except 10/12/20 1800 Wound Dressing Status Intact 10/12/201999 Wound Dressing and / or Treatment Hydrofera blue ready 10/12/201999 Wound Drainage Description Creamy 10/12/20 1100 Wound Drainage Amount Small 10/12/201099 Wound Base Assessment Red;Moist 10/12/20 1100 Surrounding Skin Assessment Dry 10/12/201999 Wound Site Closure Wound Adhesive Bandage 10/12/201999 Wound Status (Wound Team Only) Being Treated 10/12/20 1100 Wound Length (cm) 0.2 cm 10/11/20 1400 Wound Width (cm) 0.2 cm 10/11/20 1400 Wound Depth (cm) 0.3 cm 10/11/20 1400 Wound Surface Area (cm^2) 0.04 cm^2 10/11/20 1400 Wound Volume (cm^3) 0.01 cm^3 10/11/20 1400 Tunneling in CM (Wound Team Only) 3 cm 10/11/20 1400 Tunnelling Location (Wound Team Only) 3:00 10/11/20 1400 Number of days: 2 Dayanara Arrieta MD Please page [phone] M-F 6am-6pm, otherwise page [phone] * Estela Perdomo RN - 10/12/2020 6:30 PM CDT Pt progressing toward goals. She took 3 walks today, details listed in DOC flows heet. Both Jvacs were pulled. Appetite improved. Ate 3 meals at 100%. VS stable. Bowel sounds are active, but output is low. Pt request PRN bowel regime to be u tilized tomorrow. No further concerns. * Dayanara Arrieta MD - 10/12/2020 2:16 PM CDT Images from the original note were not included. Daily Progress Note Today's Date: 10/12/2020 Name: Beverly Torres Admission Date: 10/10/2020 (LOS: 2 days) Assessment: Beverly Torres is a 70 y.o. female with large colovesical/vagi nal fistula s/p ex lap, LAR, resection of infected mesh, partial cystectomy, com plex cystorrhaphy in combination (Wyre 09/04), whose post-operative course c/b a bdominal fluid collection s/p IR drain (09/13), new abdominal fluid collections on CT A/P (09/26) s/p IR jvac placement 09/27. Admitted with erythema and midline drainage Principal Problem: Wound drainage Active Problems: Colovesical fistula Malnutrition (HCC) Abdominal fluid collection Plan: - CT showed improvement in abscesses. - ID rec increasing micafungin dose, re-sent cultures of midline wound, re-runni ng sensitivities - Regular diet, TPN - Continue abx - Wound/ostomy consult for wound manager data for midline wound - PT/OT - Pull JVAC drains today - ppx: SCDs, lovenox - dispo: continue inpatient care, plan for LTACH when abx plan finalized Discussed with Dr. Martell Subjective: No acute events overnight. Denies pain. No nausea or emesis. Tolerating diet. Benjamin juan daniel working Objective: BP: (100-126)/(47-70) Temp: [36.7 C (98 F)-37.4 C (99.3 F)] Pulse: [70-86] Respirations: [16 PER MINUTE-20 PER MINUTE] SpO2: [94 %-97 %] Body mass index is 31.26 kg/m. BMI Category: Obesity (30 to <40) Lab Results Component Value Date/Time NA 139 10/12/2020 05:10 AM K 4.3 10/12/2020 05:10 AM CL 104 10/12/2020 05:10 AM CO2 27 10/12/2020 05:10 AM BUN 31 (H) 10/12/2020 05:10 AM CR 0.80 10/12/2020 05:10 AM MG 2.2 10/12/2020 05:10 AM PO4 3.5 10/12/2020 05:10 AM Lab Results Component Value Date/Time HGB 9.2 (L) 10/11/2020 04:00 AM HCT 30.1 (L) 10/11/2020 04:00 AM WBC 5.8 10/11/2020 04:00 AM PLTCT 325 10/11/2020 04:00 AM INR 1.2 09/26/2020 06:58 PM Lab Results Component Value Date/Time GLUPOC 107 (H) 10/11/2020 04:10 AM GLUPOC 93 10/10/2020 10:06 PM GLUPOC 125 (H) 10/03/2020 07:45 AM Anemia: Yes - chronic Renal Function: Normal Acidosis:Normal Electrolyte Abnormalities: Potassium: Normal Sodium: Normal Calcium:Normal Magnesium:Normal Phosphorous:Normal Physical Exam Gen: Alert, NAD HEENT: Normocephalic, EOMI grossly, no scleral icterus CV: Regular rate & rhythm, no murmurs Resp: Unlabored breathing, CTAB Abd: Soft, NT, ND. Midline wounds with purlent drainage. L JVAC with purulent fluid, R JVAC with old hematoma Ext: No edema, no deformities Skin: No rashes or lesions, warm, dry Neuro: Motor and sensation intact grossly Malnutrition Details: Active Wounds Wounds 09/12/20907 Pressure Injury Coccyx (Active) 09/12/20907 Coccyx Wound Type: Pressure Injury Pressure Injury Stages: Stage 3 Pressure Injury Present On Inpatient Admission: N Wound/Pressure Injury Orientation: Wound Description (Comments): Wound Type:: Wound Image 10/10/20 1300 Agree With My Assessment? Yes 10/12/20 050 Wound Dressing Status Open to air 10/11/202105 Wound Drainage Amount None 10/11/202105 Wound Base Assessment [place];Moist 10/11/202105 Surrounding Skin Assessment Dry;Intact;[place] 10/11/202105 Wound Site Closure None 10/11/202105 Wound Status (Wound Team Only) Being Treated 10/10/20 1300 Wound Length (cm) 1 cm 10/10/20 1300 Wound Width (cm) 1 cm 10/10/20 1300 Wound Depth (cm) 0.1 cm 10/10/20 1300 Wound Surface Area (cm^2) 1 cm^2 10/10/20 1300 Wound Volume (cm^3) 0.1 cm^3 10/10/20 1300 Wound Healing % (Wound Team Only) 96.88 10/10/20 1300 Number of days: 30 Wounds 10/10/20 0018 Pressure Injury Lateral;Left Ankle (Active) 10/10/20 0018 Ankle Wound Type: Pressure Injury Pressure Injury Stages: Stage 1 Pressure Injury Present On Inpatient Admission: Y Wound/Pressure Injury Orientation: Lateral;Left Wound Description (Comments): Wound Type:: Agree With My Assessment? Yes 10/12/20 050 Wound Dressing Status None 10/11/202105 Wound Dressing and / or Treatment Barrier cream 10/11/202105 Wound Drainage Amount None 10/11/202105 Wound Base Assessment Non-blanchable 10/11/202105 Surrounding Skin Assessment Dry;Intact 10/11/202105 Wound Site Closure Open to Air 10/11/202105 Number of days: 2 Wounds 10/10/20 0014 Surgical Incision Upper Abdomen (Active) 10/10/2013 Abdomen Wound Type: Surgical Incision Pressure Injury Stages: Pressure Injury Present On Inpatient Admission: Wound/Pressure Injury Orientation: Upper Wound Description (Comments): Wound Type:: Agree With My Assessment? Yes 10/12/20 0505 Wound Dressing Status Changed 10/12/20 1100 Wound Dressing and / or Treatment Hydrofera blue ready;Transparent (i.e. Tegader m) 10/12/20 1100 Wound Securement / Protective Device Hypafix tape 10/10/20 0014 Wound Drainage Description Serous 10/12/20 1100 Wound Drainage Amount Scant 10/12/20 1100 Wound Base Assessment Yellow;Slough 10/12/20 1100 Surrounding Skin Assessment Dry;Red 10/12/20 1100 Wound Site Closure Wound Adhesive Bandage 10/12/20 1100 Wound Status (Wound Team Only) Being Treated 10/12/20 1100 Wound Length (cm) 0.3 cm 10/11/20 1400 Wound Width (cm) 0.3 cm 10/11/20 1400 Wound Depth (cm) 0.3 cm 10/11/20 1400 Wound Surface Area (cm^2) 0.09 cm^2 10/11/20 1400 Wound Volume (cm^3) 0.03 cm^3 10/11/20 1400 Tunneling in CM (Wound Team Only) 3 cm 10/11/20 1400 Tunnelling Location (Wound Team Only) 1:00 10/11/20 1400 Number of days: 2 Wounds 10/11/20 1430 Surgical Incision Lower Abdomen (Active) 10/11/20 1430 Abdomen Wound Type: Surgical Incision Pressure Injury Stages: Pressure Injury Present On Inpatient Admission: Wound/Pressure Injury Orientation: Lower Wound Description (Comments): Wound Type:: Agree With My Assessment? Yes 10/12/20 0505 Wound Dressing Status Changed 10/12/20 1100 Wound Dressing and / or Treatment Hydrofera blue ready;Transparent (i.e. Tegader m) 10/12/20 1100 Wound Drainage Description Creamy 10/12/20 1100 Wound Drainage Amount Small 10/12/20 1100 Wound Base Assessment Red;Moist 10/12/20 1100 Surrounding Skin Assessment Dry;Red 10/12/20 1100 Wound Site Closure Wound Adhesive Bandage 10/12/20 1100 Wound Status (Wound Team Only) Being Treated 10/12/20 1100 Wound Length (cm) 0.2 cm 10/11/20 1400 Wound Width (cm) 0.2 cm 10/11/20 1400 Wound Depth (cm) 0.3 cm 10/11/20 1400 Wound Surface Area (cm^2) 0.04 cm^2 10/11/20 1400 Wound Volume (cm^3) 0.01 cm^3 10/11/20 1400 Tunneling in CM (Wound Team Only) 3 cm 10/11/20 1400 Tunnelling Location (Wound Team Only) 3:00 10/11/20 1400 Number of days: 1 Dayanara Arrieta MD Please page [phone] M-F 6am-6pm, otherwise page [phone] * Argenis Ward RN - 10/12/2020 11:53 AM CDT Images from the original note were not included. Wound Ostomy Note NAME:Beverly Torres :1950 AGE: 70 y.o. ADMISSION DATE: 10/10/2020 DAYS ADMITTED: LOS: 2 days Reason for Consult/Visit: fistula management Assessment/Plan: Principal Problem: Wound drainage Active Problems: Colovesical fistula Wound team consulted for fistula management. Woodland #[id number] applied to both th e upper and lower midline fistulas yesterday 10/11/20. Returned today to assess p ouch adherence. Pouches with no leaking noted. Patient denies any issues over ni ght. Bottom pouch appeared to be pulling away from her skin where her abdomen fo lds over. Decision made to change both fistula pouches, including the hydrofera blue dress ings to both wound locations along pts midline. Patient tolerated well, no concerns. POUCHES SHOULD BE APPLIED IN THIS ORDER: Ostomy, Small open midline wounds x2, L ower fistula, Upper fistula Ostomy: - peristoma skin clean, dry and intact. There is a small bella-mucosal separation from 5:00-3:00. Patient has not had any pouching issues. Will continue with the same pouching plan. Suggested Pouching Supplies:#[id number] 1.Change pouch with any sign of leaking. Do not reinforce leaking pouch wi th tape 2.Clean skin with water only - no soap or wipes 3.If skin is broken down surrounding stoma, sprinkle stoma powder and wipe away the excess 4.[place] no sting skin prep on powdered skin [...] such as pouch emptying and pouch changes. Open midline wounds x2: - clean skin with water only - apply a small piece of hydrofera blue (shiney site up) - place a small tegaderm over to secure Fistulas: Lower Midline Fistula: - skin around fistula site is red and irritated but is intact. Yoly ent denies any pain in this location. There is a significant amount of scaring n oted in this location and uneven skin due to prior surgeries. Yellow slough and eschar noted in wound base. Suggested Pouching Supplies: Woodland one piece pouch #[id number] and ring #[id number] - Change pouch with any sign of leaking. Do not reinforce leaking pouch with tape - Clean skin with water only - no soap or wipes - [place] no sting skin prep on bella-fistula skin, allow to dry completely - Cut new pouch to fit around fistula - Warm new pouch and paste ring in palm of hands - Stretch paste ring to fit on back of pouch where the hole was cut - Ensure skin is dry, stretch abdominal skin upwards to flatten skin as much as possible and then apply new pouch - Lay warm hand over pouch once it's applied Upper Midline Fistula: - skin around fistula site is red and irritated but is intact. Yoly ent denies any pain in this location. Skin is smooth except a small valley at 9: 00. Suggested Pouching Supplies: Woodland one piece pouch #[id number] and ring #[id number] - Change pouch with any sign of leaking. Do not reinforce leaking pouch with tape - Clean skin with water only - no soap or wipes - [place] no sting skin prep on bella-fistula skin, allow to dry completely - Cut new pouch to fit around fistula - Warm new pouch and paste ring in palm of hands - Stretch paste ring to fit on back of pouch where the hole was cut - Ensure skin is dry, stretch abdominal skin upwards to flatten skin as much as possible and then apply new pouch - Lay warm hand over pouch once it's applied Wounds 10/10/20 0014 Surgical Incision Upper Abdomen (Active) 10/10/20 0014 Abdomen Wound Type: Surgical Incision Pressure Injury Stages: Pressure Injury Present On Inpatient Admission: Wound/Pressure Injury Orientation: Upper Wound Description (Comments): Wound Type:: Agree With My Assessment? 10/12/20 0505 Wound Dressing Status Changed 10/12/20 1100 Wound Dressing and / or Treatment Hydrofera blue ready;Transparent (i.e. Tegader m) 10/12/20 1100 Wound Securement / Protective Device Hypafix tape 10/10/20 0014 Wound Drainage Description Serous 10/12/20 1100 Wound Drainage Amount Scant 10/12/20 1100 Wound Base Assessment Yellow;Slough 10/12/20 1100 Surrounding Skin Assessment Dry;Red 10/12/20 1100 Wound Site Closure Wound Adhesive Bandage 10/12/20 1100 Wound Status (Wound Team Only) Being Treated 10/12/20 1100 Number of days: 2 Wounds 10/11/20 1430 Surgical Incision Lower Abdomen (Active) 10/11/20 1430 Abdomen Wound Type: Surgical Incision Pressure Injury Stages: Pressure Injury Present On Inpatient Admission: Wound/Pressure Injury Orientation: Lower Wound Description (Comments): Wound Type:: Agree With My Assessment? 10/12/20 0505 Wound Dressing Status Changed 10/12/20 1100 Wound Dressing and / or Treatment Hydrofera blue ready;Transparent (i.e. Tegader m) 10/12/20 1100 Wound Drainage Description Creamy 10/12/20 1100 Wound Drainage Amount Small 10/12/20 1100 Wound Base Assessment Red;Moist 10/12/20 1100 Surrounding Skin Assessment Dry;Red 10/12/20 1100 Wound Site Closure Wound Adhesive Bandage 10/12/20 1100 Wound Status (Wound Team Only) Being Treated 10/12/20 1100 Number of days: 1 Colostomy 09/04/20 1419 Upper Right Quadrant (Active) 09/04/20 1419 Upper Right Quadrant Agree With My Assessment? 10/12/20 0505 Stoma Assessment [place];Clean 10/12/20 1100 Drainage Description Brown 10/12/20 1100 Peristomal Skin Assessment Unable to Assess 10/12/20 1100 Dressing Status Intact;Clean;Dry 10/12/20 1100 Drain Output (ml) 0 ml 10/12/20 0900 Fistula Midline- Upper (Active) 10/11/20 1402 Midline- Upper Ostomy Orientation: Other (Comment) Agree With My Assessment? 10/12/20 0505 Stoma Assessment Red;Edema 10/12/20 1100 Drainage Description Trivedi 10/12/20 1100 Dressing Status Changed/New 10/12/20 1100 Drainage Amount Small 10/12/20 1100 Fistula Midline- Lower (Active) 10/11/20 1404 Midline- Lower Ostomy Orientation: Other (Comment) Agree With My Assessment? 10/12/20 0505 Stoma Assessment Red;Edema 10/12/20 1100 Drainage Description Trivedi 10/12/20 1100 Dressing Status Changed/New 10/12/20 1100 Drainage Amount Small 10/12/20 1100 JACINTO Wilson, RN, TCRN Wound/Ostomy Nursing Consult Service Available via [employer] or [employer] [phone] After hours please contact wound/casework manager "comb machine operator" via Voalte * Naomie Nolan RD - 10/12/2020 11:38 AM CDT Nutrition Support Service (NSS) Initial Consult Note Chart/labs reviewed: Lytes at appropriate levels, optimizing K+ to prevent hyper kalemia. Will cycle further to 12 hours and slightly adjust total volume to 1760 ml. Chloride to acetate adjusted with CO2 trending up and Chloride at low-end no rmal & same 185 mEq Na. Continuing with additional Vit C for wound healing. Pertinent Labs: 10/12/2020 05:10 Sodium 139 Potassium 4.3 Chloride 104 CO2 27 Anion Gap 8 BUN 31 (H) Creatinine 0.80 Glucose 85 Calcium 8.8 Magnesium 2.2 Phosphorus 3.5 Estimated Kcal Needs: 5333-9972 (25-28 kcal/kg desired weight of 58 kg) Estimated Protein Needs: 80-90 (1.5 g/kg desired weight of 58 kg PN Orders (to start at 20:30): provides 1420 kcal Volume: 1760ml (80-160ml/hr, 12-hour cycle) Macronutrients: 85g amino acids (goal), 200g dextrose (goal), 200ml lipid (goal) Lytes/Additives: 185mEq Na (2/3 NS equivalent), 60mEq K+, 10mEq calcium, 14mEq m agnesium, 12mmol Phos, 10ml MVI, 1ml trace elements, 300mg vitamin C, Cl:Acetate 2:1 Plan / Recommendations: Continue TPN while GI function is impaired; limit PO to small, easy to digest portions to help with healing and maintenance of gut integrity. Outside electrolyte and fluid replacement per primary team; NSS to make bauer es to TPN routinely M-, weekends per on-call. Naomie Nolan RD, LD, [facility] Office: [address], [facility] Connect * Mirela Hilliard OT - 10/12/2020 9:20 AM CDT OCCUPATIONAL THERAPY ASSESSMENT NOTE Name: Beverly Torres : 1950 Age: 70 y.o. Admission Date: 10/10/2020 LOS: 2 days Mobility Patient Turn/Position: Chair;Self;Weight shifted (Chair) Progressive Mobility Level: Walk in hallway Distance Walked (feet): 150 ft Level of Assistance: Assist X1 Assistive Device: Walker Time Tolerated: 11-30 minutes Activity Limited By: Lines / Medical Devices Subjective Pertinent Dx per Physician: 10/11 after she represented with increased drainage f rom her midline incision around her HEMA tube, also with some erythema around this area, likely irritation Patient Stated Goals: "Get out to see my fiance" Precautions: Falls Pain / Complaints: Patient agrees to participate in therapy Pain Location: Abdomen;Incisional Pain Level Current: 2 Mild pain Comments: RN cleared patient to participate in OT session. At beginning of sessi on, patient was supine in bed. At end of session, patient was sitting in chair, chair alarm on. RN notified. Objective Psychosocial Status: Willing and Cooperative to Participate Persons Present: Occupational Therapist Home Living Type of Home: House Comment: per patient, from facility with 24/7 supervision and care, no environme ntal barriers Prior Function Level Of [place]: Needed assistance with ADLs;Needed assistance with homema eleazar Other Function Comments: per patient, able to ambulate in room and hallways at f acility using walker with minimal assistance because of medical lines ADL's Where Assessed: Edge of Bed;Chair UE Dressing Assist: Minimal Assist UE Dressing Deficits: Thread RUE;Thread LUE;Pull Around Back;Pull Down In Back LE Dressing Assist: Total Assist LE Dressing Deficits: Don/Doff R Sock;Don/Doff L Sock Comment: Completed bed mobility from supine to sitting EOB with minimal assistan ce using to multiple medical lines, completed LB dressing to with total assistan ce to don bilateral socks, completed UB dressing to [facility] hospital gown and abdomi nal binder with minimal assistance, completed mobility in room and hallway ~150f t with minimal assistance, transferred into chair with minimal assistance. ADL Mobility Bed Mobility: Supine to Sit: Minimal assist Transfer Type: Sit to stand Transfer: Assistance Level: To/from;Toilet;Minimal assist Transfer: Assistive Device: Roller walker Other Transfer Type: Stand to sit Other Transfer: Assistance Level: To;Bedside chair;Standby assist Other Transfer: Assistive Device: Roller walker End of Activity Status: Up in chair;Nursing notified Transfer Comments: multiple medical lines Sitting Balance: Standby assist;No UE support Standing Balance: Standby assist;2 UE support Gait Distance: 150 feet Gait: Assistance Level: Minimal assist Gait: Assistive Device: Roller walker Activity Tolerance Endurance: 3/5 Tolerates 25-30 Minutes Exercise w/Multiple Rests Cognition Overall Cognitive Status: WFL to Adequately Complete Self Care Tasks Safely Comprehension: WFL to Adequately Complete Self Care Tasks Safely Orientation: Alert & Oriented x4 Attention: Awake/Alert UE AROM Overall BUE AROM WNL: Yes UE Strength / Tone Overall Strength / Tone: 3/5 Comment: generalized weakness Education Persons Educated: Patient Barriers To Learning: None Noted Patient Response: Verbalized and Demo Understanding Topics: Role of OT, Goals for Therapy;Home safety;ADL Compensatory Techniques;Ad aptive Devices for ADLs Goal Formulation: With Patient Assessment Assessment: Decreased ADL Status;Decreased UE Strength;Decreased Endurance;Decre ased Self-Care Trans;Decreased High-Level ADLs Prognosis: Good;w/Cont OT s/p Acute Discharge Goal Formulation: Patient Comments: Patient presents with decreased mobility, decreased gross motor coordi nation, decreased BUE strength and decreased activity tolerance to perform ADLs independently. Patient would benefit from continued OT intervention in acute car e setting to increase OOB activities AM-PAC 6 Clicks Daily Activity Inpatient Putting on and taking off regular lower body clothes?: A Lot Bathing (Including washing, rinsing, drying): A Lot Toileting, which includes using toilet, bedpan, or urinal: A Little Putting on and taking off regular upper body clothing: A Little Taking care of personal grooming such as brushing teeth: A Little Eating meals?: None Daily Activity Raw Score: 17 Standardized (t-scale) score: 37.26 CMS 0-100% Score: 50.11 CMS G Code Modifier: CK Plan OT Frequency: 2-3x/week OT Plan for Next Visit: progress mobility, standing endurance ADL Goals Patient Will Perform All ADL's: w/ Modified [place] Functional Transfer Goals Pt Will Perform All Functional Transfers: Modified Independent OT Discharge Recommendations Recommendation: Inpatient setting Patient Currently Requires Physical Assist With: All personal care ADLs;All home functioning ADLs Patient Currently Requires Equipment: Owns what is needed Comments: Discharging to [facility] due to ongoing medical needs Therapist: Mirela Hilliard OT Date: 10/12/2020 * Madina Simms, PT - 10/12/2020 9:14 AM CDT PHYSICAL THERAPY ASSESSMENT Name: Beverly Torres : 1950 Age: 70 y.o. Admission Date: 10/10/2020 LOS: 2 days Mobility Patient Turn/Position: Chair;Self Progressive Mobility Level: Walk in hallway Distance Walked (feet): 150 ft Level of Assistance: Assist X1 Assistive Device: Walker Time Tolerated: 11-30 minutes Activity Limited By: Lines / Medical Devices Subjective Significant hospital events: Hx of large colovesical/vaginal fistula s/p ex lap, LAR, resection of infected mesh, partial cystectomy, complex cystorrhaphy in co mbination 09/04, post-op course complicated by abdominal fluid collection s/p IR drain 09/13, new abdominal fluid collections 09/26 s/p IR jvac placement 09/27. Admit with erythema and midline drainage. Mental / Cognitive Status: Alert;Oriented;Cooperative;Follows Commands Persons Present: Occupational Therapist Pain: Patient has no complaint of pain Pain Interventions: Patient agrees to participate in therapy Ambulation Assist: Independent Mobility in Community without Device Patient Owned Equipment: Roller Walker Home Situation: Lives with Family(maria de jesus, currently at LTACH post-COVID course) Type of Home: House Entry Stairs: No Stairs In-Home Stairs: No Stairs Comments: Patient admitted from assisted facility. ROM LE ROM: Bilateral;Hip;Knee;Ankle;WFL Strength Overall Strength: No Focal Deficits Noted;Able to Move All Joints Independently Through Available ROM Bed Mobility/Transfer Bed Mobility: Supine to Sit: Standby Assist Transfer Type: Sit to Stand Transfer: Assistance [...] Assist with Mobility;Instructed Patient to Use Call Light(chair alarm activat ed) Gait Gait Distance: 150 feet Gait: Assistance Level: Standby Assist Gait: Assistive Device: Roller Walker Gait: Descriptors: Pace: Slow;Swing-Through Gait;No balance loss;Normal step jyoti gth Comments: Cues to keep walker closer to trunk for improved safety and stability. Activity Limited By: Lines/Leads Education Persons Educated: Patient Patient Barriers To Learning: None Noted Teaching Methods: Verbal Instruction Patient Response: Verbalized Understanding Topics: Plan/Goals of PT Interventions;Use of Assistive Device/Orthosis;Mobility Progression;Safety Awareness;Up with Assist Only;Importance of Increasing Activ ity;Ambulate With Nursing;Therapy Schedule Assessment/Progress Impaired Mobility Due To: Decreased Strength;Decreased Activity Tolerance Assessment/Progress: Should Improve w/ Continued PT Comments: Patient mobilizing well with roller walker. Needing assistance with me dical needs/management, which she does not have at home. Will benefit from onsamantha kaur skilled intervention. AM-PAC 6 Clicks Basic Mobility Inpatient Turning from your back to your side while in a flat bed without using bed rails: None Moving from lying on your back to sitting on the side of a flatbed without using bedrails : None Moving to and from a bed to a chair (including a wheelchair): A Little Standing up from a chair using your arms (e.g. wheelchair, or bedside chair): A Little To walk in hospital room: A Little Climbing 3-5 steps with a railing: A Lot Raw Score: 19 Standardized (T-scale) Score: 42.48 Basic Mobility CMS 0-100%: 36.99 CMS G Code Modifier for Basic Mobility: CJ Goals Goal Formulation: With Patient Time For Goal Achievement: 5 days, To, 7 days Patient Will Go Supine To/From Sit: Independently Patient Will Transfer Sit to Stand: Independently Patient Will Ambulate: Greater than 200 Feet, w/ Walker, Independently Plan Treatment Interventions: Mobility Training;Strengthening;Endurance Training Plan Frequency: 1-2 Days per Week PT Plan for Next Visit: Ambulation training, BLE strengthening. PT Discharge Recommendations Recommendation: Inpatient setting -- discharge to [facility]ACH for ongoing medical care Patient Currently Requires Supervision For: Mobility;Making decisions about safe ty Therapist Madina Simms, PT, DPT [id number] Date 10/12/2020 * Sharmila Francisco DO - 10/12/2020 7:31 AM CDT Infectious Disease Progress Note Patient Name: Beverly Torres Attending Physician/Primary Service: Bran Martell DO Today's Date: 10/12/2020 Assessment: Ms. Torres is a very pleasant 70-year-old female who has a very complex GI histor y including multiple fistulas that have required partial cystectomy and colectom y further complicated by subincisional abscesses with multiple multidrug-resista nt organisms. Her most recent admission was 09/26-10/03 for persistent feculent d rainage coming from 2 incisional abscess sites. She had 2 drains placed (09/13, 09/27). She was discharged to SNF with IV meropenem, linezolid, and micafungin f or VRE, Pseudomonas aeruginosa, and Brenda glabrata. She returns to the hospit al significant drainage coming from her incisional ulcer, and it was noted that the cultures from 09/26 resulted back with C glabrata that is resistant to micafu ngin. Thankfully, she is not showing any systemic signs of infection at this ti me. CT scan from 10/10/2020 shows improvement in the size of the fluid collectio ns along her abdominal wall. While it is true that she possibly has a micafungi n-resistant Brenda glabrata (lab is confirming this), it is doubtful that this is the primary reason for her persistent drainage. We have sent a sample of the purulent fluid to the lab to see if she is growing organisms that have developed resistance to her current antibiotics. In the meantime, we recommend micafungin 150 mg daily for now, and we will discuss with microbiology lab about running REMI for voriconazole and consider other options for treatment. Please also con tinue IV meropenem 2 g every 8 hours for MDR Pseudomonas and suspected anaerobes as well as p.o. linezolid 600 mg every 12 hours. Colovesicular fistula s/p takedown partial cystectomy (09/04) Subincisional abdominal abscess (VRE, C.glabrata, PSAE) s/p PTC drain (09/13) Cystectomy leak possible redeveloping fistula, abscess/hematoma (09/26) s/p PTC d rain (09/27) - 2011 diverticulitis c/b rectovaginal fistula - 12/2011 s/p sigmoidectomy, vaginal cuff repair ([facility], Dr. 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 Leal + Dr. Vargas) - 07/2013 s/p ventral hernia repair with panniculectomy - 09/2013 recurrent rectovaginal fistula, s/p diverting transverse colostomy - 08/2014 s/p colostomy takedown --> c/b anastomotic breakdown - 2015 s/p lap redo of colorectal anastomosis - 2015 onwards --> persistent colovesicular fistula, chronic fecaluria, dysuria - 06/28/20 admit [facility] septic shock, pyelo - 06/28 CT a/p - L 5-cm extrarenal pelvic abscess, air in ureter, dilated R urete r, colovesicular fistula - 06/29 s/p R PCN urine cx VRE, B.thetaiotaomicron/other anaerobes, C.glabrata - 07/10 nephrostomy <100k C.parapsilosis (S fluc) - 07/10 urine cx >100k C.parapsilosis - 07/20-09/04 on ceftriaxone/flagyl/fluc (completed 2 wks asia) - 09/04 s/p colovesicula fistula takedown, partial cystectomy - 09/11 CT a/p - anterior abdominal wall collection just under incision - 09/13 s/p IR drain placement - 09/13 cx VRE (S Lz, dapto remi 4), PSAE (S cefe remi 8), C.glabrata (R flu S asia ) - 09/26 in colorectal clinic, feculant [...] azo, aztreonam; S to meropenem REMI 2) -09/27 abscess fluid growing C glabrata (R fluconazole, now R micafungin) - 10/02 CT abd/pelv w/ decreased size of fluid collection, some surrounding fluid around other drain fluid collection felt to be reactive by surgery - 10/10 CT abdomen/pelvis with decreased size of fluid collection along the right rectus muscle/abdominal wall and stable size of the midline extraperitoneal flu id and gas collection. Prior MRSE CLABSI (09/08/20) - PICC removed, vancomycin x 7 days Recent C.diff (06/2020) - On p.o. vancomycin for prophylaxis HTN Hypothyroid Thrombocytosis Recommendations: Continue micafungin 150 mg daily (C.glabrata R-remi, R-flu) Continue meropenem 2 g every 8 hours (PsA, anaerobes) Continue p.o. linezolid 600 mg twice daily (VRE) Continue p.o. vancomycin 125 mg twice daily for C. difficile infection prophylax is, continue until 2 days after other antibiotics stopped. If discharged to SNF, will need CBC/diff, CMP weekly faxed to [phone] Hassan. If discharged to LTACH, ID there will likely manage. Anticipate above antibiotics will need to be continued until fistula readdressed w/ potential kushal lisa. Await abdominal culture results Await expanded susceptibilities for the C.glabrata isolates from 09/27 Continue to monitor for antibiotic toxicity/side effects Should she develop fevers, increasing leukocytosis, hemodynamic instability, ple ase obtain blood and PICC line cultures, and consider broadening antibiotics to daptomycin and even antifungal coverage to amphotericin B - if this occurs, plea se reach out to ID Patient seen and discussed with Dr. Ferguson, ID Attending. Thank you for this interesting consultation -- We will continue to follow. Sharmila Francisco, DO PGY-4, ID Fellow Pager [phone] Please contact via Voalte preferentially Division of Infectious Diseases Subjective Interval History No significant events overnight. Patient has no complaints. Denies fevers, chill s, headaches, abdominal pain, diarrhea, rashes. Afebrile (Tmax 99.3), normotensive. CBC in process, CR wnl. Colostomy bag with 1 50 cc out. J-vac drains with minimal fluid out. Lower abd fistula bag with ~25 c c to my estimation. Antimicrobial Start date End date Micafungin 100 mg daily 09/14 active Meropenem 10/01 active Linezolid 10/03 active Daptomycin 09/26 10/03 P.o. vancomycin 07/14 active Estimated Creatinine Clearance: 59.8 mL/min (based on SCr of 0.8 mg/dL). Medications Scheduled Meds:buPROPion XL (WELLBUTRIN XL) tablet 150 mg, 150 mg, Oral, QDAY enoxaparin (LOVENOX) syringe 40 mg, 40 mg, Subcutaneous, QDAY(21) gabapentin (NEURONTIN) capsule 300 mg, 300 mg, Oral, TID levothyroxine (SYNTHROID) tablet 50 mcg, 50 mcg, Oral, QDAY linezolid (ZYVOX) tablet 600 mg, 600 mg, Oral, BID meropenem (MERREM) injection 2 g, 2 g, Intravenous, Q8H* micafungin (MYCAMINE) 150 mg in sodium chloride 0.9% (NS) 110 mL IVPB, 150 mg, I ntravenous, Q24H* oxybutynin XL (DITROPAN XL) tablet 10 mg, 10 mg, Oral, QDAY pantoprazole DR (PROTONIX) tablet 40 mg, 40 mg, Oral, BID sodium chloride PF 0.9% flush 10 mL, 10 mL, Flush, FLUSH TID vancomycin (FIRVANQ) oral solution 125 mg, 125 mg, Oral, BID WATER FOR INJECTION, STERILE IJ SOLN (Cabinet Override), , , NOW Continuous Infusions: Adult Cyclic Parenteral Nutrition (PN) 140 mL/hr at 10/11/202208 PRN and Respiratory Meds:guaiFENesin LA BID PRN, HYDROcodone/acetaminophen Q6H P RN, hyoscyamine Q4H PRN, methocarbamoL BID PRN, ondansetron (ZOFRAN) IV Q4H PRN, simethicone Q6H PRN Objective Physical Examination Vital Signs: Last Vital Signs: 24 Hour Ran ge BP: 114/65 (10/12 328) Temp: 36.9 C (98.4 F) (10/12 328) Pulse: 86 (10/12 328) Respirations: 20 PER MINUTE (10/12 328) SpO2: 96 % (10/12 328) BP: (102-132)/(64-69) Temp: [36.7 C (98 F)-37.4 C (99.3 F)] Pulse: [64-86] Respirations: [16 PER MINUTE-20 PER MINUTE] SpO2: [94 %-97 %] Gen: NAD HEENT: PERRLA, moist mucous membranes Lungs: CTA bilaterally without adventitious sounds CV: RRR without murmur Abd: soft, nml bowel sounds, mild tenderness. MSK/Skin: no rashes or edema noted Neuro/Psych: alert and oriented x4. Moves all limbs. Mood and affect normal/arcelia ruent. Speech and thought content normal and appropriate. Follows commands. Has insight and judgement into medical problems/conditions. Lines: RUE PICC Line - dressing in place clean/dry/intact without any surrounding eryth cain or tenderness J-Vac drains x2 Ostomy bag over lower midline fistula - with brownish, turbid fluid in bag Ostomy bag over upper midline fistula - with minimal fluid Laboratory Hematology Recent Labs 10/10/20 0035 10/10/20 0423 10/11/20 0400 WBC 8.7 8.8 5.8 HGB 9.8* 9.7* 9.2* HCT 30.3* 29.5* 30.1* PLTCT 404* 397 325 Chemistry Recent Labs 10/10/20 0035 10/11/20 0400 10/12/20 0510 NA 136* 139 139 K 4.0 4.3 4.3 CL 104 106 104 CO2 23 24 27 BUN 24 25 31* CR 0.86 0.78 0.80 GFR >60 >60 >60 GLU 92 97 85 CA 8.9 9.0 8.8 PO4 3.6 4.3 3.5 ALBUMIN 3.1* 3.2* -- ALKPHOS 126* 112* -- AST 20 17 -- ALT 12 10 -- TOTBILI 0.3 0.3 -- Microbiology, Radiology and other Diagnostics Review Microbiology: 09/27/2020 abdominal fluid culture: 2 colonies Brenda glabrata (resistant to remi afungin, resistant to fluconazole) 5 colonies Pseudomonas aeruginosa (R-pip/tazo , Rcefepime), VRE 10/11/2020 abdominal fluid culture: in process. G/S with many budding yeast, mode rate GNR, Rare GPC Radiology: 10/10 CT scan abdomen/pelvis with contrast 1. Decrease in size of complex, loculated fluid and gas collection associated with the right rectus musculature with indwelling drain in place. 2. No significant change in midline extraperitoneal gas and fluid collection which surrounds the loculated right anterior abdominal fluid collection and is drained by the midline drainage catheter. Associated with this fluid collection is an open midline abdominal wound with surrounding soft tissue thickening, not significantly changed since 10/02/2020. 3. Indwelling left nephroureteral stent without hydronephrosis. 4. Prior anterior resection and right abdominal colostomy. No bowel obstruction or pneumoperitoneum. 5. Cholelithiasis with persistent mild gallbladder dilatation which may be from prolonged fasting. 6. Unchanged large left ventral abdominal wall hernia containing normal caliber loops of large and small bowel. Associated attestation - Juany Ferguson MD - 10/12/2020 11:47 AM CDT ATTESTATION I personally performed the jurado portions of the E/M visit, discussed case with th e fellow and concur with fellow documentation of history, physical exam, assessm ent, and treatment plan unless otherwise noted. Staff name: Juany Ferguson MD Date: 10/12/2020 Continues to have good output from wound but minimal from drains, may need to co nsider pulling those drains. Will continue on linezolid, meropenem and micafungi n as below. Suspect she will grow same organisms from fluid cx sent yesterday ba sed on gram stain, will f/u to ensure no resistance has developed. Will also f/u repeat micafungin sensitivities being run on previous C. Glabrata isolate. Have also reached out to several pharmaceutical companies w/ new antifungals for pot ential use if infection worsened. Juany Ferguson MD Infectious Diseases Pager [phone] Please use Voalte to contact ID. * Estela Perdomo RN - 10/11/2020 5:12 PM CDT Pt resting comfortably. Strongly encouraged an increase in activity today, but p t wanted to wait for PT to come see her. It was noted that PT was not ordered, o rder is now placed. Wound nurse came and addressed all wounds, see wound RN note . TPN was tolerated well. Red port on PICC line is slugglish and positional but still is able to be used when needed. Pain medication request were less than pre vious day. Pt seems to be improving. No concerns from patient at this time. * Argenis Ward RN - 10/11/2020 2:32 PM CDT Images from the original note were not included. Wound Ostomy Note NAME:Beverly Torres :1950 AGE: 70 y.o. ADMISSION DATE: 10/10/2020 DAYS ADMITTED: LOS: 1 day Reason for Consult/Visit: fistula management Assessment/Plan: Principal Problem: Wound drainage Active Problems: Colovesical fistula Phone call received from Surg-Onc resident regarding need to pouch midline incis ion fistulas. Follow up assessment today. A small wound manager data was placed yeste rday, one over each fistula. Wound managers leaking. All dressings removed from patients stomach including her ostomy pouch. POUCHES SHOULD BE APPLIED IN THIS ORDER: Ostomy, Small open midline wounds x2, L ower fistula, Upper fistula Ostomy: - peristoma skin clean, dry and intact. There is a small bella-mucosal separation from 5:00-3:00. Patient has not had any pouching issues. Will continue with the same pouching plan. Suggested Pouching Supplies:#[id number] 1.Change pouch with any sign of leaking. Do not reinforce leaking pouch wi th tape 2.Clean skin with water only - no soap or wipes 3.If skin is broken down surrounding stoma, sprinkle stoma powder and wipe away the excess 4.[place] no sting skin prep on powdered skin [...] such as pouch emptying and pouch changes. Open midline wounds x2: - clean skin with water only - apply a small piece of hydrofera blue (shiney site up) - place a small tegaderm over to secure Fistulas: Lower Midline Fistula: - skin around fistula site is red and irritated but is intact. Patient denies a ny pain in this location. There is a significant amount of scaring noted in this location and uneven skin due to prior surgeries. Yellow slough and eschar noted in wound base. Suggested Pouching Supplies: Woodland one piece pouch #[id number] and ring #[phone] - Change pouch with any sign of leaking. Do not reinforce leaking pouch with t ape - Clean skin with water only - no soap or wipes - [place] no sting skin prep on bella-fistula skin, allow to dry completely - Cut new pouch to fit around fistula - Warm new pouch and paste ring in palm of hands - Stretch paste ring to fit on back of pouch where the hole was cut - Ensure skin is dry, stretch abdominal skin upwards to flatten skin as much as possible and then apply new pouch - Lay warm hand over pouch once it's applied Upper Midline Fistula: - skin around fistula site is red and irritated but is intact. Patient denies a ny pain in this location. Skin is smooth except a small valley at 9:00. Suggested Pouching Supplies: Woodland one piece pouch #[id number] and ring #[phone] - Change pouch with any sign of leaking. Do not reinforce leaking pouch with t ape - Clean skin with water only - no soap or wipes - [place] no sting skin prep on bella-fistula skin, allow to dry completely - Cut new pouch to fit around fistula - Warm new pouch and paste ring in palm of hands - Stretch paste ring to fit on back of pouch where the hole was cut - Ensure skin is dry, stretch abdominal skin upwards to flatten skin as much as possible and then apply new pouch - Lay warm hand over pouch once it's applied Wounds 10/10/20 0014 Surgical Incision Upper Abdomen (Active) 10/10/20 0014 Abdomen Wound Type: Surgical Incision Pressure Injury Stages: Pressure Injury Present On Inpatient Admission: Wound/Pressure Injury Orientation: Upper Wound Description (Comments): Wound Type:: Agree With My Assessment? 10/11/20 0410 Wound Dressing Status Changed 10/11/20 1400 Wound Dressing and / or Treatment Hydrofera blue ready;Transparent (i.e. Tegader m) 10/11/20 1400 Wound Securement / Protective Device Hypafix tape 10/10/20 0014 Wound Drainage Description Creamy 10/11/20 1400 Wound Drainage Amount Scant 10/11/20 1400 Wound Base Assessment Slough;Yellow 10/11/20 1400 Surrounding Skin Assessment Dry;Erythema;[place] 10/11/20 1400 Wound Site Closure Wound Adhesive Bandage 10/11/20 1400 Wound Status (Wound Team Only) Being Treated 10/11/20 1400 Wound Length (cm) 0.3 cm 10/11/20 1400 Wound Width (cm) 0.3 cm 10/11/20 1400 Wound Depth (cm) 0.3 cm 10/11/20 1400 Wound Surface Area (cm^2) 0.09 cm^2 10/11/20 1400 Wound Volume (cm^3) 0.03 cm^3 10/11/20 1400 Tunneling in CM (Wound Team Only) 3 cm 10/11/20 1400 Tunnelling Location (Wound Team Only) 1:00 10/11/20 1400 Number of days: 1 Wounds 10/11/20 1430 Surgical Incision Lower Abdomen (Active) 10/11/20 1430 Abdomen Wound Type: Surgical Incision Pressure Injury Stages: Pressure Injury Present On Inpatient Admission: Wound/Pressure Injury Orientation: Lower Wound Description (Comments): Wound Type:: Wound Dressing Status Changed 10/11/20 1400 Wound Dressing and / or Treatment Hydrofera blue ready;Transparent (i.e. Tegader m) 10/11/20 1400 Wound Drainage Description Bloody 10/11/20 1400 Wound Drainage Amount Scant 10/11/20 1400 Wound Base Assessment [place];Red;Moist 10/11/20 1400 Surrounding Skin Assessment Dry;Erythema;Intact 10/11/20 1400 Wound Site Closure Wound Adhesive Bandage 10/11/20 1400 Wound Status (Wound Team Only) Being Treated 10/11/20 1400 Wound Length (cm) 0.2 cm 10/11/20 1400 Wound Width (cm) 0.2 cm 10/11/20 1400 Wound Depth (cm) 0.3 cm 10/11/20 1400 Wound Surface Area (cm^2) 0.04 cm^2 10/11/20 1400 Wound Volume (cm^3) 0.01 cm^3 10/11/20 1400 Tunneling in CM (Wound Team Only) 3 cm 10/11/20 1400 Tunnelling Location (Wound Team Only) 3:00 10/11/20 1400 Number of days: 0 Colostomy 09/04/20 1419 Upper Right Quadrant (Active) 09/04/20 1419 Upper Right Quadrant Agree With My Assessment? Yes 10/11/20 0400 Stoma Assessment Red;Clean 10/11/20 1200 Drainage Description Brown 10/11/20 1200 Peristomal Skin Assessment Dry;Red;Intact 10/11/20 1200 Dressing Status Changed/New 10/11/20 1200 Drain Output (ml) 150 ml 10/11/20 1010 Fistula Midline- Upper (Active) 10/11/20 1402 Midline- Upper Ostomy Orientation: Other (Comment) Stoma Assessment Red;Edema 10/11/20 1200 Drainage Description Green;Yellow 10/11/20 1200 Dressing Status Changed/New 10/11/20 1200 Drainage Amount Small 10/11/20 1200 Fistula Midline- Lower (Active) 10/11/20 1404 Midline- Lower Ostomy Orientation: Other (Comment) Stoma Assessment Red;Edema 10/11/20 1200 Drainage Description Green;Yellow 10/11/20 1200 Dressing Status Changed/New 10/11/20 1200 Drainage Amount Small 10/11/20 1200 JACINTO Wilson, RN, TCRN Wound/Ostomy Nursing Consult Service Available via [employer] or [email or web address] [phone] After hours please contact wound/casework manager "comb machine operator" via Voalte * Dayanara Arrieta MD - 10/11/2020 2:11 PM CDT Images from the original note were not included. Daily Progress Note Today's Date: 10/12/2020 Name: Beverly Torres Admission Date: 10/10/2020 (LOS: 2 days) Assessment: Beverly Torres is a 70 y.o. female with large colovesical/vagi nal fistula s/p ex lap, LAR, resection of infected mesh, partial cystectomy, com plex cystorrhaphy in combination ([facility] 09/04), whose post-operative course c/b a bdominal fluid collection s/p IR drain (09/13), new abdominal fluid collections on CT A/P (09/26) s/p IR jvac placement 09/27. Admitted with erythema and midline drainage Principal Problem: Wound drainage Active Problems: Colovesical fistula Malnutrition (HCC) Abdominal fluid collection Plan: - Obtain CT abd/pelvis to asssess current drains and known abscesses - NPO for now until scan back, then likely regular diet - Restart TPN - Restart antibiotic regimen - ID consult - Wound/ostomy consult for wound manager data for midline wound - Obtain LLE US to r/o DVT - ppx: SCDs, lovenox Discussed with Dr. Martell Subjective: No acute events overnight. Denies significant pain other than left leg. No naus ea or emesis. No fevers or chills. Stoma working Objective: BP: (100-126)/(47-70) Temp: [36.7 C (98 F)-37.4 C (99.3 F)] Pulse: [70-86] Respirations: [16 PER MINUTE-20 PER MINUTE] SpO2: [94 %-97 %] Body mass index is 31.26 kg/m. BMI Category: Obesity (30 to <40) Lab Results Component Value Date/Time NA 139 10/12/2020 05:10 AM K 4.3 10/12/2020 05:10 AM CL 104 10/12/2020 05:10 AM CO2 27 10/12/2020 05:10 AM BUN 31 (H) 10/12/2020 05:10 AM CR 0.80 10/12/2020 05:10 AM MG 2.2 10/12/2020 05:10 AM PO4 3.5 10/12/2020 05:10 AM Lab Results Component Value Date/Time HGB 9.2 (L) 10/11/2020 04:00 AM HCT 30.1 (L) 10/11/2020 04:00 AM WBC 5.8 10/11/2020 04:00 AM PLTCT 325 10/11/2020 04:00 AM INR 1.2 09/26/2020 06:58 PM Lab Results Component Value Date/Time GLUPOC 107 (H) 10/11/2020 04:10 AM GLUPOC 93 10/10/2020 10:06 PM GLUPOC 125 (H) 10/03/2020 07:45 AM Anemia: Yes - chronic Renal Function: Normal Acidosis:Normal Electrolyte Abnormalities: Potassium: Normal Sodium: Normal Calcium:Normal Magnesium:Normal Phosphorous:Normal Physical Exam Gen: Alert, NAD HEENT: Normocephalic, EOMI grossly, no scleral icterus CV: Regular rate & rhythm, no murmurs Resp: Unlabored breathing, CTAB Abd: Soft, NT, ND. Midline wounds with purlent drainage. L JVAC with purulent fluid, R JVAC with old hematoma Ext: No edema, no deformities Skin: No rashes or lesions, warm, dry Neuro: Motor and sensation intact grossly Malnutrition Details: Active Wounds Wounds 09/12/20 0908 Pressure Injury Coccyx (Active) 09/12/20907 Coccyx Wound Type: Pressure Injury Pressure Injury Stages: Stage 3 Pressure Injury Present On Inpatient Admission: N Wound/Pressure Injury Orientation: Wound Description (Comments): Wound Type:: Wound Image 10/10/20 1300 Agree With My Assessment? Yes 10/12/20 0505 Wound Dressing Status Open to air 10/11/202105 Wound Drainage Amount None 10/11/202105 Wound Base Assessment [place];Moist 10/11/202105 Surrounding Skin Assessment Dry;Intact;[place] 10/11/202105 Wound Site Closure None 10/11/202105 Wound Status (Wound Team Only) Being Treated 10/10/20 1300 Wound Length (cm) 1 cm 10/10/20 1300 Wound Width (cm) 1 cm 10/10/20 1300 Wound Depth (cm) 0.1 cm 10/10/20 1300 Wound Surface Area (cm^2) 1 cm^2 10/10/20 1300 Wound Volume (cm^3) 0.1 cm^3 10/10/20 1300 Wound Healing % (Wound Team Only) 96.88 10/10/20 1300 Number of days: 30 Wounds 10/10/20 0018 Pressure Injury Lateral;Left Ankle (Active) 10/10/20 0018 Ankle Wound Type: Pressure Injury Pressure Injury Stages: Stage 1 Pressure Injury Present On Inpatient Admission: Y Wound/Pressure Injury Orientation: Lateral;Left Wound Description (Comments): Wound Type:: Agree With My Assessment? Yes 10/12/20 0505 Wound Dressing Status None 10/11/202105 Wound Dressing and / or Treatment Barrier cream 10/11/202105 Wound Drainage Amount None 10/11/202105 Wound Base Assessment Non-blanchable 10/11/202105 Surrounding Skin Assessment Dry;Intact 10/11/202105 Wound Site Closure Open to Air 10/11/202105 Number of days: 2 Wounds 10/10/20 0014 Surgical Incision Upper Abdomen (Active) 10/10/20 0014 Abdomen Wound Type: Surgical Incision Pressure Injury Stages: Pressure Injury Present On Inpatient Admission: Wound/Pressure Injury Orientation: Upper Wound Description (Comments): Wound Type:: Agree With My Assessment? Yes 10/12/20 0505 Wound Dressing Status Changed 10/12/20 1100 Wound Dressing and / or Treatment Hydrofera blue ready;Transparent (i.e. Tegader m) 10/12/20 1100 Wound Securement / Protective Device Hypafix tape 10/10/20 0014 Wound Drainage Description Serous 10/12/20 1100 Wound Drainage Amount Scant 10/12/20 1100 Wound Base Assessment Yellow;Slough 10/12/20 1100 Surrounding Skin Assessment Dry;Red 10/12/20 1100 Wound Site Closure Wound Adhesive Bandage 10/12/20 1100 Wound Status (Wound Team Only) Being Treated 10/12/20 1100 Wound Length (cm) 0.3 cm 10/11/20 1400 Wound Width (cm) 0.3 cm 10/11/20 1400 Wound Depth (cm) 0.3 cm 10/11/20 1400 Wound Surface Area (cm^2) 0.09 cm^2 10/11/20 1400 Wound Volume (cm^3) 0.03 cm^3 10/11/20 1400 Tunneling in CM (Wound Team Only) 3 cm 10/11/20 1400 Tunnelling Location (Wound Team Only) 1:00 10/11/20 1400 Number of days: 2 Wounds 10/11/20 1430 Surgical Incision Lower Abdomen (Active) 10/11/20 1430 Abdomen Wound Type: Surgical Incision Pressure Injury Stages: Pressure Injury Present On Inpatient Admission: Wound/Pressure Injury Orientation: Lower Wound Description (Comments): Wound Type:: Agree With My Assessment? Yes 10/12/20 0505 Wound Dressing Status Changed 10/12/20 1100 Wound Dressing and / or Treatment Hydrofera blue ready;Transparent (i.e. Tegader m) 10/12/20 1100 Wound Drainage Description Creamy 10/12/20 1100 Wound Drainage Amount Small 10/12/20 1100 Wound Base Assessment Red;Moist 10/12/20 1100 Surrounding Skin Assessment Dry;Red 10/12/20 1100 Wound Site Closure Wound Adhesive Bandage 10/12/20 1100 Wound Status (Wound Team Only) Being Treated 10/12/20 1100 Wound Length (cm) 0.2 cm 10/11/20 1400 Wound Width (cm) 0.2 cm 10/11/20 1400 Wound Depth (cm) 0.3 cm 10/11/20 1400 Wound Surface Area (cm^2) 0.04 cm^2 10/11/20 1400 Wound Volume (cm^3) 0.01 cm^3 10/11/20 1400 Tunneling in CM (Wound Team Only) 3 cm 10/11/20 1400 Tunnelling Location (Wound Team Only) 3:00 10/11/20 1400 Number of days: 1 Dayanara Arrieta MD Please page [phone] M-F 6am-6pm, otherwise page [phone] * Nancy Goodwin RD - 10/11/2020 11:07 AM CDT Nutrition Support Service (NSS) Progress Note Subjective: PN infused per orders overnight. Wound/ostomy consulted for stage 3 coccyx pressure injury. CMSW following, likely plan to d/c to [facility]. Ghada ble to connect w/ patient today, no intakes documented. FSBS stable at 93-107mg/ dl over the past 24 hours. Current PN Formula: 1800ml (60-120ml/hr, 16-hour cycle) - bag #1 this admission. Diet Order: Regular - 10/10 PM I/O: 893ml/2650ml PO intake: 0ml UOP: 2650 JVac x 2: 831ml Colostomy: 181ml Meds: Scheduled Meds:buPROPion XL (WELLBUTRIN XL) tablet 150 mg, 150 mg, Oral, Q DAY enoxaparin (LOVENOX) syringe 40 mg, 40 mg, Subcutaneous, QDAY(21) gabapentin (NEURONTIN) capsule 300 mg, 300 mg, Oral, TID levothyroxine (SYNTHROID) tablet 50 mcg, 50 mcg, Oral, QDAY linezolid (ZYVOX) tablet 600 mg, 600 mg, Oral, BID meropenem (MERREM) injection 1 g, 1 g, Intravenous, Q8H* micafungin (MYCAMINE) 100 mg in sodium chloride 0.9% (NS) 100 mL IVPB (MB+), 100 mg, Intravenous, Q24H* oxybutynin XL (DITROPAN XL) tablet 10 mg, 10 mg, Oral, QDAY pantoprazole DR (PROTONIX) tablet 40 mg, 40 mg, Oral, BID sodium chloride PF 0.9% flush 10 mL, 10 mL, Flush, FLUSH TID vancomycin (FIRVANQ) oral solution 125 mg, 125 mg, Oral, BID Continuous Infusions: Adult Cyclic Parenteral Nutrition (PN) 120 mL/hr at 10/10/20 2209 lactated ringers infusion 100 mL/hr at 10/11/20 0837 PRN and Respiratory Meds:guaiFENesin LA BID PRN, HYDROcodone/acetaminophen Q6H P RN, hyoscyamine Q4H PRN, methocarbamoL BID PRN, ondansetron (ZOFRAN) IV Q4H PRN, simethicone Q6H PRN Electrolyte Treatments: None yesterday, none so far today Comprehensive Metabolic Profile Lab Results Component Value Date/Time NA 139 10/11/2020 04:00 AM K 4.3 10/11/2020 04:00 AM CL 106 10/11/2020 04:00 AM CO2 24 10/11/2020 04:00 AM GAP 9 10/11/2020 04:00 AM BUN 25 10/11/2020 04:00 AM CR 0.78 10/11/2020 04:00 AM GLU 97 10/11/2020 04:00 AM Lab Results Component Value Date/Time CA 9.0 10/11/2020 04:00 AM PO4 4.3 10/11/2020 04:00 AM ALBUMIN 3.2 (L) 10/11/2020 04:00 AM TOTPROT 7.2 10/11/2020 04:00 AM ALKPHOS 112 (H) 10/11/2020 04:00 AM AST 17 10/11/2020 04:00 AM ALT 10 10/11/2020 04:00 AM TOTBILI 0.3 10/11/2020 04:00 AM GFR >60 10/11/2020 04:00 AM GFRAA >60 10/11/2020 04:00 AM Lab Results Component Value Date MG 2.2 10/11/2020 Lab Results Component Value Date TRIG 134 10/11/2020 TRIG 158 (H) 09/27/2020 GLUPOC 107 (H) 10/11/2020 GLUPOC 93 10/10/2020 GLUPOC 125 (H) 10/03/2020 GLUPOC 112 (H) 10/03/2020 GLUPOC 99 10/02/2020 GLUPOC 107 (H) 10/02/2020 GLUPOC 121 (H) 10/02/2020 GLUPOC 120 (H) 10/02/2020 Admit Weight (Kg): Weight: 72.6 kg (160 lb 0.9 oz) Current Weight (Kg): Weight: 72.6 kg (160 lb 0.9 oz) Estimated Kcal Needs:1761-5332(25-28kcal/kg desired weight of 58 kg) Estimated Protein Needs:80-90(1.5g/kg desired weight of 58 kg Physical Assessment:afebrile, RA; no edema; abdomen firm/distended/tender per RN Pressure Injuries:stage 2 x2, coccyx, stage 1 L ankle Beverly Mckinnon a70 y.o.female with large colovesical/vaginal fistu la s/pex lap, LAR, resection of infected mesh, partial cystectomy, complex cys torrhaphy in combination(09/04), whose post-operative course c/babdominal fl uid collection s/p IR drain (09/13),now directly admitted from clinic due to newabdominal fluid collections on CT A/P (09/26).Well known to Clinical Nutri tion and Nutrition Support Service from prior admissions. This will be the 3rd a dmit in the last 3 months. Most recently discharged on 09/21. [facility]. TPN initiated near goal while NPO. RD adjusted regimen as indicated by clinical status changes and PO appropriateness/tolerance. With m ultiple abdominal fluid collections and associated drainage, maintaining ~100% o f nutrient needs via TPN this admission. S/p zinc course previously for pressure injuries. Chart/labs reviewed: Lytes at appropriate levels, though phos slightly up overni ght, will slightly decrease down to 12 mmol. Mag above optimal level of 2.0, tho ugh stable - continuing w/ 14 MEq in tonights bag. Will cycle further to 14 hour s and slightly adjust total volume to 1820ml. Na & Cl/CO2 stable, will continue w/ 1:1 Cl:Acetate ratio & same 185 mEq Na. Continuing with additional Vit C for wound healing. Triglycerides WNL. No other changes otherwise. PN Orders (to start at 20:30):Bag #2 this admission - changes made in bold Volume:1820ml (70-140ml/hr, 14-hour cycle) Macronutrients:85g amino acids (goal),200g dextrose (goal),200ml lipid (go al) Lytes/Additives:185mEq Na (3/4NS equivalent), 65mEq K+ (providing 5 mEq/hr), 10mEq calcium,14mEq magnesium,12mmol Phos,10ml MVI,1ml trace elements, 300mgvitamin C, Cl:Acetate1:1 Provides 1420 kcal & 85g protein (100% estimated needs) Plan / Recommendations: Continue TPN while GI function is impaired; limit PO to small, easy to digest portions to help with healing and maintenance of gut integrity. Outside electrolyte and fluid replacement per primary team; NSS to make bauer es to TPN routinely M-, weekends per on-call. Nancy Goodwin MS, RD, LD, CNSC Available on [employer] (Preferred Communication Method) Pager: [phone]* * Shelby White RT - 10/10/2020 5:38 AM CDT RT Adult Assessment Note NAME:Beverly Torres :1950 AGE: 70 y.o. ADMISSION DATE: 10/10/2020 DAYS ADMITTED: LOS: 0 days RT Treatment Plan: Additional Comments: Impressions of the patient: pt was in bed in NAD Intervention(s)/outcome(s): cnm Patient education that was completed: n/a Recommendations to the care team: n/a Vital Signs: Pulse: 74 RR: 18 PER MINUTE SpO2: 97 % O2 Device: Liter Flow: O2%: 21 %(RA) Breath Sounds: Respiratory Effort: Non-Labored documented in this encounter H&P Notes * Zay Lamb MD - 10/10/2020 3:29 AM CDT Acute/Inpatient Surgery History and Physical Patient: Beverly Torres, [id number] Admission Date: 10/10/2020, LOS: 0 days Admission Diagnosis: Wound drainage [T14.8XXA] Date of Service: October 10, 2020 ASSESSMENT: Bevrely Torres is a 70 y.o. female with large colovesical/vaginal fistula s/p ex lap, LAR, resection of infected mesh, partial cystectomy, complex cystorr haphy in combination ([facility] 09/04), whose post-operative course c/b abdominal flu id collection s/p IR drain (09/13), new abdominal fluid collections on CT A/P () s/p IR jvac placement 09/27. Admitted with erythema and midline drainage PLAN: - Admit to surg onc service - NPO with mIVF - Continue salomon per urology recommendations during previous stay - Maintain Jvacs, CTM output - Resume AIRCRAFT TECHNICIAN abx, Linezolid, mikayla, asia, and PO vanc for c.diff suppression. - Will discuss need for repeat imaging in the morning with staff, as well as pos sible ID re-engagement. To be discussed with staff surgeon, Dr. Martell, in the AM. Zay Lamb MD Service Pager: [phone] HPI: Beverly Torres is a 70 y.o. female with large colovesical/vaginal fis harlan s/p ex lap, LAR, resection of infected mesh, partial cystectomy, complex cy storrhaphy in combination ([place] 09/04), whose post-operative course c/b abdomina l fluid collection s/p IR drain (09/13), who was recently admitted 09/26 to 10/03 drainage from midline wound concerning for EC fistula. CT during admission showe d posterior superior bladder wall defect and contained perivesicular contrast ex travasation on CT cystogram extending to rectal stump suture line and adjacent t o opacified, tethered small bowel. Additional contrast opacification of the vagi na compatible with complex fistulous connection between these structures. Extrav asation of oral contrast into an anterior abdominal extraperitoneal fluid collec tion with percutaneous drain in place. IR was consulted and jvac placed 09/27. R epeat CT scan was performed the day before discharge and it showed decreasing si zes of abdominal fluid collections and the drains appropriately placed. Pt disch arged to SNF on linezolid, mikayla, asia, and PO vanc per ID recs. Discharged with salomon per Urology recs. Pt called ID today with concerns for increased drainage from midline wound that is now green in color, as well as increasing induration and erythema around site of drainage. Believes quantity of drainage has increased. States she has not haynes d fevers or chills, continues to tolerate PO, no change in ostomy output amount or character. States drains have been putting out 5-10 cc per day, character of drain output. Medical History: Diagnosis Date Colovesical fistula Diverticulitis [...] 09/04/2020 Performed by Alexander Rodriguez MD at [facility] OR COLECTOMY WITH COLOPROCTOSTOMY AND COLOSTOMY - PARTIAL N/A 09/04/2020 Performed by Alexander Rodriguez MD at [facility] OR COLECTOMY WITH COLOPROCTOSTOMY AND COLOSTOMY - PARTIAL N/A 09/04/2020 Performed by Bran Martell DO at [facility] OR ABDOMEN SURGERY SECTION x 2 HX ROSARIO AND BSO No family history on file. Social History Tobacco Use Smoking status: Former Smoker Packs/day: 1.00 Years: 55.00 Pack years: 55.00 Types: Cigarettes Quit date: 05/15/2020 Years since quittin.4 Smokeless tobacco: Never Used Substance Use Topics Alcohol use: Not Currently Your Current Medications: Instructions acetaminophen (TYLENOL) 325 mg capsule Take one capsule by mouth every 6 hours as needed. Max of 4,000 mg of acetaminophen in 24 hours. aluminum/magnesium hydroxide (MAALOX) 200/200 mg/5 mL susp oral suspension Take 30 mL by mouth four times daily as needed. buPROPion XL (WELLBUTRIN XL) 150 mg tablet Take one tablet by mouth daily. Do n ot crush or chew. gabapentin (NEURONTIN) 300 mg capsule Take one [...] Take one tablet by mouth twice daily. Tentative ly through 10/12 or until discontinued by infectious diseases physician. loperamide (IMODIUM A-D) 2 mg capsule Initial: 4mg, followed by 2mg after each loose stool (max: 16mg/day) meropenem (MERREM) 1 g/20 mL injection Administer 2 grams over 3 hours intraven ously every 8 hours. Tentatively through 10/12 or until discontinued by infectiou s diseases physician. methocarbamoL (ROBAXIN) 750 mg tablet Take one tablet by mouth twice daily as n eeded for Spasms. micafungin (MYCAMINE) 100 mg/5 mL 100 mg in sodium chloride 0.9% (NS) 0.9 % 100 mL IVPB Administer one hundred mg through vein every 24 hours. Tentatively thro ug 10/12 or until discontinued by infectious diseases physician. Miscellaneous Medical Supply [facility] Colostomy supplies and accessories Dispense twenty of each for one month of supplies Dx Colovesical fistula N32.1 Miscellaneous Medical Supply [facility] ICD-10:Ileostomy in place (HCC) Z93.2 Ileostomy supplies and accessories Dispense one month of supplies naphazoline 0.025 % /pheniramine 0.3 % (NAPHCON-A) 0.025/0.3 % drop Apply one d rop to both eyes four times daily. ondansetron (ZOFRAN ODT) 4 mg rapid dissolve tablet Dissolve one tablet by mout h every [address] on tongue to dissolve. oxybutynin XL (DITROPAN XL) 10 mg tablet Take one tablet by mouth daily. pantoprazole DR (PROTONIX) 40 mg tablet Take one tablet by mouth twice daily. polyethylene glycol 3350 (MIRALAX) 17 g packet Take one packet by mouth twice d aily as needed. senna/docusate (SENOKOT-S) 8.6/50 mg tablet Take one tablet by mouth twice dayanna y. simethicone (MYLICON) 80 mg chew tablet Chew one tablet by mouth every 6 hours as needed for Flatulence. vancomycin (FIRVANQ) 25 mg/mL oral solution Take 5 mL by mouth twice daily. Review of Systems Constitutional: Negative for chills and fever. HENT: Negative. Eyes: Negative. Respiratory: Negative. Cardiovascular: Negative. Gastrointestinal: Negative for abdominal pain, nausea and vomiting. Genitourinary: Negative. Musculoskeletal: Negative. Skin: Drainage from are of skin dehiscence in midline incision, surrounding eryth cain and induration Neurological: Negative. Endo/Heme/Allergies: Negative. Psychiatric/Behavioral: Negative. Vitals: BP: (120-134)/(72-80) Temp: [36.7 C (98 F)-36.8 C (98.3 F)] Pulse: [67-72] Respirations: [20 PER MINUTE] SpO2: [96 %-97 %] Body mass index is 31.26 kg/m. BMI Category: Obesity (30 to <40) Physical Exam Vitals reviewed. Constitutional: General: She is not in acute distress. Appearance: Normal appearance. She is not ill-appearing. HENT: Head: Normocephalic and atraumatic. Mouth/Throat: Mouth: Mucous membranes are moist. Eyes: Extraocular Movements: Extraocular movements intact. Conjunctiva/sclera: Conjunctivae normal. Cardiovascular: Rate and Rhythm: Normal rate. Pulmonary: Effort: Pulmonary effort is normal. No respiratory distress. Abdominal: Comments: Abdomen soft, nd, ostomy with brown soft stool in appliance, LLQ Jv ac in place with dark green/brown output, RLQ Jvac in place with dark bloody out put. Midline incision with 1 cm area of skin dehiscence surrounded by large area of erythema and induration. Able to express green/brown drainage from dehiscenc e. Small area of skin dehiscence at inferior aspect of incision with fibrinous e xudate. Genitourinary: Comments: [place] with clear yellow urine in tubing Musculoskeletal: General: Normal range of motion. Cervical back: Normal range of motion and neck supple. Skin: Findings: Erythema present. Neurological: General: No focal deficit present. Mental Status: She is alert and oriented to person, place, and time. Psychiatric: Mood and Affect: Mood normal. Behavior: Behavior normal. Lab/Radiology/Other Diagnostic Tests: Lab Results Component Value Date/Time NA 136 (L) 10/10/2020 12:35 AM K 4.0 10/10/2020 12:35 AM CL 104 10/10/2020 12:35 AM CO2 23 10/10/2020 12:35 AM BUN 24 10/10/2020 12:35 AM CR 0.86 10/10/2020 12:35 AM CA 8.9 10/10/2020 12:35 AM MG 2.2 10/10/2020 12:35 AM PO4 3.6 10/10/2020 12:35 AM Lab Results Component Value Date/Time HGB 9.8 (L) 10/10/2020 12:35 AM HCT 30.3 (L) 10/10/2020 12:35 AM WBC 8.7 10/10/2020 12:35 AM PLTCT 404 (H) 10/10/2020 12:35 AM INR 1.2 09/26/2020 06:58 PM Lab Results Component Value Date/Time GLUPOC 125 (H) 10/03/2020 07:45 AM GLUPOC 112 (H) 10/03/2020 03:20 AM GLUPOC 99 10/02/2020 07:38 PM Active Wounds Wounds 10/10/2015 Pressure Injury Left Buttocks (Active) 10/10/2015 Buttocks Wound Type: Pressure Injury Pressure Injury Stages: Stage 2 Pressure Injury Present On Inpatient Admission: Y Wound/Pressure Injury Orientation: Left Wound Description (Comments): Wound Type:: Wound Dressing Status None 10/10/2013 Wound Dressing and / or Treatment Barrier cream 10/10/2013 Wound Drainage Amount None 10/10/2013 Wound Base Assessment Clean;Intact;Yellow 10/10/2013 Surrounding Skin Assessment Dry;Intact 10/10/2013 Wound Site Closure Open to Air 10/10/2013 Number of days: 0 Wounds 10/10/2016 Pressure Injury Right Buttocks (Active) 10/10/2016 Buttocks Wound Type: Pressure Injury Pressure Injury Stages: Stage 2 Pressure Injury Present On Inpatient Admission: Y Wound/Pressure Injury Orientation: Right Wound Description (Comments): Wound Type:: Wound Dressing Status None 10/10/2013 Wound Dressing and / or Treatment Barrier cream 10/10/2013 Wound Drainage Amount None 07/27/21 0014 Wound Base Assessment Clean;Dry 10/10/20 001 Surrounding Skin Assessment Dry;Intact 10/10/2013 Wound Site Closure Open to Air 10/10/2013 Number of days: 0 Wounds 10/10/20 0018 Pressure Injury Lateral;Left Ankle (Active) 10/10/208 Ankle Wound Type: Pressure Injury Pressure Injury Stages: Stage 1 Pressure Injury Present On Inpatient Admission: Y Wound/Pressure Injury Orientation: Lateral;Left Wound Description (Comments): Wound Type:: Wound Dressing Status None 10/10/2013 Wound Dressing and / or Treatment Barrier cream 10/10/2013 Wound Drainage Amount None 10/10/2013 Wound Base Assessment Non-blanchable 10/10/2013 Surrounding Skin Assessment Dry;Intact 10/10/2013 Wound Site Closure Open to Air 10/10/2013 Number of days: 0 Wounds 10/10/20 0014 Surgical Incision Abdomen (Active) 10/10/2013 Abdomen Wound Type: Surgical Incision Pressure Injury Stages: Pressure Injury Present On Inpatient Admission: Wound/Pressure Injury Orientation: Wound Description (Comments): Wound Type:: Wound Dressing Status Changed 10/10/2013 Wound Dressing and / or Treatment Gauze;Abdominal pad 10/10/2013 Wound Securement / Protective Device Hypafix tape 10/10/2013 Wound Drainage Description Green 10/10/2013 Wound Drainage Amount Moderate 10/10/2013 Wound Base Assessment Moist;Red 10/10/2013 Surrounding Skin Assessment Dry;Intact 10/10/20 001 Number of days: 0 documented in this encounter Consult Notes * Sharmila Francisco DO - 10/11/2020 3:16 PM CDT Associated Order(s): CONSULT INFECTIOUS DISEASES PHYSICIAN Infectious Disease Initial Consultation Note Patient Name: Beverly Torres Attending Physician/Primary Service: Bran Martell DO Today's Date: 10/11/2020 Admission Date: 10/10/2020 Reason for this consultation: Recommendations regarding antibiotic regimen in li ght of new culture results Type of Consultation: Co-management with signed orders Assessment: Ms. Torres is a very pleasant 70-year-old female who has a very complex GI histor y including multiple fistulas that have required partial cystectomy and colectom y further complicated by subincisional abscesses with multiple multidrug-resista nt organisms. Her most recent admission was 09/26-10/03 for persistent feculent d rainage coming from 2 incisional abscess sites. She had 2 drains placed (09/13, 09/27). She was discharged to SNF with IV meropenem, linezolid, and micafungin f or VRE, Pseudomonas aeruginosa, and Brenda glabrata. She returns to the hospit al significant drainage coming from her incisional ulcer, and it was noted that the cultures from 09/26 resulted back with C glabrata that is resistant to micafu ngin. Thankfully, she is not showing any systemic signs of infection at this ti me. CT scan from 10/10/2020 shows improvement in the size of the fluid collectio ns along her abdominal wall. While it is true that she possibly has a micafungi n-resistant Brenda glabrata (lab is confirming this), it is doubtful that this is the primary reason for her persistent drainage. We have sent a sample of the purulent fluid to the lab to see if she is growing organisms that have developed resistance to her current antibiotics. In the meantime, we recommend increasing micafungin to 150 mg daily for now, and we will discuss with microbiology lab about running REMI for voriconazole and consider other options for treatment. P lease also continue IV meropenem 2 g every 8 hours for MDR Pseudomonas and suspe cted anaerobes as well as p.o. linezolid 600 mg every 12 hours. Colovesicular fistula s/p takedown partial cystectomy (09/04) Subincisional abdominal abscess (VRE, C.glabrata, PSAE) s/p PTC drain (09/13) Cystectomy leak possible redeveloping fistula, abscess/hematoma (09/26) s/p PTC d rain (09/27) -2011 diverticulitis c/brectovaginal fistula - 12/2011 s/p sigmoidectomy, vaginal cuff repair(Dr. 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 Leal + Dr. Vargas) -07/2013s/p ventral hernia repair with panniculectomy -09/2013 recurrentrectovaginalfistula, s/pdiverting transverse colostomy - 08/2014 s/p colostomy takedown-->c/banastomotic breakdown - 2015 s/plapredoofcolorectal anastomosis - 2015 onwards -->persistentcolovesicular fistula,chronicfecaluria, dysuria -06/28/20 admit [facility] septic shock, pyelo - 06/28 CT a/p - L 5-cm extrarenal pelvic abscess, air in ureter, dilated R urete r, colovesicular fistula - 06/29 s/p R PCN urine cx VRE, B.thetaiotaomicron/other anaerobes, C.glabrata - 07/10 nephrostomy <100k C.parapsilosis (S fluc) - 07/10 urine cx >100k C.parapsilosis - 07/20-09/04 on ceftriaxone/flagyl/fluc (completed 2 wks asia) - 09/04 s/p colovesicula fistula takedown, partial cystectomy - 09/11 CT a/p - anterior abdominal wallcollection just underincision - /p IR drain placement - 09/13 cx VRE (S Lz, dapto remi 4),PSAE (S cefe remi 8), C.glabrata (R flu S remi a) - 09/26 in colorectal clinic, feculant midline [...] azo, aztreonam; S to meropenem REMI 2) -09/27 abscess fluid growing C glabrata (R fluconazole, now R micafungin) - 10/02 CT abd/pelv w/ decreased size of fluid collection, some surrounding fluid around other drain fluid collection felt to be reactive by surgery - 10/10 CT abdomen/pelvis with decreased size of fluid collection along the right rectus muscle/abdominal wall and stable size of the midline extraperitoneal flu id and gas collection. Prior MRSE CLABSI (09/08/20) - PICC removed, vancomycin x 7 days Recent C.diff (06/2020) - On p.o. vancomycin for prophylaxis HTN Hypothyroid Thrombocytosis Recommendations: 1. Start micafungin 150 mg daily (C.glabrata R-remi, R-flu) 2. Continue meropenem 2 g every 8 hours (PsA, anaerobes) 3. Continue p.o. linezolid 600 mg twice daily (VRE) 4. We have collected fluid specimen from the draining incisional ulcer site, we will await these results 5. We will see if microbiology can add on REMI for voriconazole and further discu ss with pharmacy regarding other treatment options for resistant C.glabrata 6. Continue to monitor for antibiotic toxicity/side effects 7. Should she develop fevers, increasing leukocytosis, hemodynamic instability, please obtain blood and PICC line cultures, and consider broadening antibiotics to daptomycin and even antifungal coverage to amphotericin B - if this occurs, p roseannease reach out to ID 8. Continue p.o. vancomycin 125 mg twice daily for C. difficile infection prophy laxis Patient seen and discussed with Dr. Ferguson, ID Attending. Thank you for this interesting consultation -- ID will continue to follow. Sharmila Francisco, PGY-4, ID Fellow Pager: [phone] Please contact me through [facility] Division of Infectious Diseases History of Present Illness Beverly Torres is a 70 y.o. female with complicated diverticular abscess i n 2011 c/b rectovaginal fistula and sigmoidectomy with subsequent multiple color ectal, coloureteral fistulas, admitted 09/04-09/21 for planned colovesicular taked own, partial cystectomy, infected mesh excision and colectomy with colostomy cre ation c/b incisional abscess, and more recent admission for persiste nt feculent drainage from abdominal wall abscess status post PTC drain (09/13) di scharged on IV Asai/meropenem/p.o. linezolid. She is now readmitted on 10/10 for copious drainage from her abdominal incision site/wounds. History was obtained from patient and partially through chart review. Please note that some of this history was taken from Dr. Hassan's note from 09/27/20. Patient was recently admitted 09/26-10/03 for persistent feculent drainage from he r incisional site secondary to subincisional/abdominal wall abscess growing VRE, C glabrata, Pseudomonas aeruginosa status post PTC drain (09/13). Her hospitali zation was further complicated by cystectomy leak and possible redeveloping a fi stula and abscess status post PTC drain on 09/27. She was discharged to SNF on with IV meropenem, p.o. linezolid, and micafungin through a right upper extr emity PICC line. On 10/08 patient and nursing noted drainage coming from her inc isional ulceration. She says it was "pouring out of her." The color was greeni sh. They also noted surrounding erythema. Over the next 2 days or so she had p ersistent drainage, and on Friday it was recommended that she return to the hosp ital for further evaluation. On admission she was afebrile and hemodynamically stable. White blood cell coun t was normal. It was noted that she did have copious, greenish colored fluid co gavin from her abdominal wounds and they were covered with ostomy bags to contain it. She did have a CT scan of her abdomen/pelvis performed on 10/10 that showed improvement in the fluid collections of her abdominal rectus and a stable size in the midline fluid collection. In speaking with the patient today, she denies any fevers, chills, vomiting, abd ominal pain, headaches, vision changes, or rashes. She has been able to tolerat e her food has been getting her appetite back, and she only has very mild nausea . She has Salomon catheter in place that was changed at the facility prior to her coming to the emergency room. She has not had any change/increase in volume in her ostomy output. Background - from Dr. Hassan's Note 09/27/20: "Ms. Torres has complex -GI urologic hx: early 2011 with diverticular abscess s /p sigmoidectomy. Developed rectovaginal fistula. 12/2011 s/p open sigmoidectomy , small bowel resection, repair of vaginal cuff in [place] at [facility] by Dr. Leal.Surgery c/b Rureteral injurys/prepair of the Rureter with uret eroureterostomy(same day), thereafter developedureterocolonic fistula to the colorectal anastomosis.Apr - July 2012 s/p [address] Leal + Dr. Vargas, s/plaparotomy with lysis of adhesions, repair of small bowel, Rureteral reim plantation,complex ventral hernia repairwhich was then c/bcomponent separa tion and meshrequiringa panniculectomy 07/2013. 09/2013 recurrentrectovagina lfistula, s/pdiverting transverse colostomy; colostomy takedown 08/2014, c/b anastomotic breakdown and requiring lapredoofcolorectal anastomosis.201 6 onwards with persistentcolovesicular fistula with chronicfecaluria, dysuri a. Dr. Leal recommended [facility] evaluation as felt to have exhausted surgic al expertise of [place] at that time, she did not seek [place] evaluation. 2019 wo rsening bladder and lower abdominal spasms, and 12/2019 admitted [place] in [facility] in [place] with urosepsis requiring IV abx, transitioned to PO abx through February 15 and was referred to colorectal surgery. Recurrent UTIs thereafter requiri ng short courses PO abx, yet anytime off abx w/ recurrent UTI. 05/22/[address] Martell, at which time discussed need of repeat c-scope and complex join t colon-urologic surgical repair, removal mesh. 06/[address] Rodriguez, at which time on amox/clav, completed shortly thereafter. Plan was for mid-June colonosc opy, however early June worsening back, lower abdominal pain. 06/20 returnedto local [place] urgent care with dysuria, suprapubic pain, dysuria, fevers, myalgia s, dc'd on ciprofloxacin, cx returned cipro-R E.coli switched to azithromycin (? ). Symptoms worsened with acute on chronic watery diarrhea intermittently bloody , with abdominal pain and bloody discharge from chronic (since 2015) midline wou nd. 06/28 presented to [facility], at which time afebrile but tach ypnic, tachycardic hypotensive (62/39) with leukocytosis (13.5-67%N) lactate nor mal (1.3) and CT a/p with L-sided 5 cm extrarenal pelvic prominence c/w abscess, air in ureter/density with dilated R ureter extending to distended bladder with large amt of air and fecal debris and stool in bladder with colovesicular fistu la; she was started on vancomycin, meropenem. Attempt to place [place] unsuccessfu l due to thick fecal matter. She was transferred to MICU for urologic evaluat ion. C.diff returned positive, started on PO vancomycin and meropenem transition ed to ceftriaxone + flagyl for E.coli/empiric anaerobic pyelo in setting known ( prior) colo-ureteral fistula; urology evaluated and recommended nephrostomies gi felix extensive distal fistula and stool burden, after placement with improving b/ l flank and abdominal pain. Chronic diarrhea returned to normal. Multiple nephro stomy + urine cx returnedC. Glabrata, C. Parapsilosis, VRE, Bacteroides, Egg erthella C.parapsilosis. discharged to [facility] on ceftriaxone/flagyl + po f luconazole to keep pyelo/abscess at bay, with plan for nutritional improvement s trict NPO on TPN, and then proceed complex [...] /cefepime/metronidazole/micafungin for ~2w or until fluid collection resolvedo n imaging. SNF unable to take her on dapto, so switched to linezolid, and flagyl which stopped on 09/20 2/2 nausea. 09/24 called uro clinic reporting midline abdom inal wound had dehisced with drainage, and 09/26 was seen in urology and colorect al surgery clinics was noted to have midline incision with feculant drainage jose l ng with light-brown HEMA drainage output also concerning feces. 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 Urology recommends against any uro intervention, plan to [place] in [place] to contain bladder leak and once clinically improved and bowel fistulas stabilized may need further uro surgery. Upon admit afebrile, mild leukocytosis improving from last admit (wbc 16.6 on 09/18->14.3 OA -> 11.9 today), Hgb stable, worsening thrombocytosis (638), Cr/LFT wnl, Akns=715 out overnight, today going to IR for abscess drain placement with cultures including anaerobic and fungal having been ordered." Antimicrobial Start date End date Micafungin 100 mg daily 09/14 active Meropenem 10/01 active Linezolid 10/03 active Daptomycin 09/26 10/03 P.o. vancomycin 07/14 active Estimated Creatinine Clearance: 61.4 mL/min (based on SCr of 0.78 mg/dL). Past Medical History Medical History: Diagnosis Date Colovesical fistula Diverticulitis Hypertension Hypoglycemia Hypothyroid PONV (postoperative nausea and vomiting) Rectovaginal fistula Right ureteral injury Sepsis (HCC) 2019,2020 Past Surgical History Surgical History: Procedure Laterality [...] 09/04/2020 Performed by Alexander Rodriguez MD at [facility] OR COLECTOMY WITH COLOPROCTOSTOMY AND COLOSTOMY - PARTIAL N/A 09/04/2020 Performed by Alexander Rodriguez MD at [facility] OR COLECTOMY WITH COLOPROCTOSTOMY AND COLOSTOMY - PARTIAL N/A 09/04/2020 Performed by Bran Martell DO at [facility] OR ABDOMEN SURGERY SECTION x 2 HX ROSARIO AND BSO Social History Has been at a assisted facility pretty much since July. 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 No recent travel outside [facility] tat. Is but her is also battling some medical problems. Social History Tobacco Use Smoking status: Former Smoker Packs/day: 1.00 Years: 55.00 Pack years: 55.00 Types: Cigarettes Quit date: 05/15/2020 Years since quittin.4 Smokeless tobacco: Never Used Substance Use Topics Alcohol use: Not Currently Family History Family History Problem Relation Age of Onset Cervical Cancer Sister Brain Cancer Sister Allergies Allergies Allergen Reactions Bactrim [Sulfamethoxazole-Trimethoprim] HIVES and ITCHING Blue Dye EDEMA Review of Systems A comprehensive 14-point review of systems was negative with exception of the re view of systems as noted in the history of present illness. Medications Scheduled Meds:buPROPion XL (WELLBUTRIN XL) tablet 150 mg, 150 mg, Oral, QDAY enoxaparin (LOVENOX) syringe 40 mg, 40 mg, Subcutaneous, QDAY(21) gabapentin (NEURONTIN) capsule 300 mg, 300 mg, Oral, TID levothyroxine (SYNTHROID) tablet 50 mcg, 50 mcg, Oral, QDAY linezolid (ZYVOX) tablet 600 mg, 600 mg, Oral, BID meropenem (MERREM) injection 2 g, 2 g, Intravenous, Q8H* micafungin (MYCAMINE) 100 mg in sodium chloride 0.9% (NS) 100 mL IVPB (MB+), 100 mg, Intravenous, Q24H* oxybutynin XL (DITROPAN XL) tablet 10 mg, 10 mg, Oral, QDAY pantoprazole DR (PROTONIX) tablet 40 mg, 40 mg, Oral, BID sodium chloride PF 0.9% flush 10 mL, 10 mL, Flush, FLUSH TID vancomycin (FIRVANQ) oral solution 125 mg, 125 mg, Oral, BID Continuous Infusions: Adult Cyclic Parenteral Nutrition (PN) lactated ringers infusion 100 mL/hr at 10/11/20 0837 PRN and Respiratory Meds:guaiFENesin LA BID PRN, HYDROcodone/acetaminophen Q6H P RN, hyoscyamine Q4H PRN, methocarbamoL BID PRN, ondansetron (ZOFRAN) IV Q4H PRN, simethicone Q6H PRN Physical Examination Vital Signs: Most Recent Vital Signs: 24 H our Range BP: 110/65 (10/11 1148) Temp: 36.8 C (98.2 F) (10/11 1148) Pulse: 67 (10/11 1148) Respirations: 18 PER MINUTE (10/11 1148) SpO2: 97 % (10/11 1148) BP: (105-132)/(62-82) Temp: [36.2 C (97.2 F)-36.8 C (98.2 F)] Pulse: [64-71] Respirations: [16 PER MINUTE-18 PER MINUTE] SpO2: [94 %-97 %] General appearance: awake, alert, no distress HENT: mucus membranes moist, no oral lesions/thrush Eyes: PERRL, EOM grossly intact, Conj nl Neck: supple, no lymphadenopathy Lungs: no wheezing, rhonchi, rales appreciated Heart: Regular rhythm, normal rate, with no murmur, rub, gallop Abdomen: soft, non-distended.tender closer to her incision line, there is a ulce ration present with a colostomy bag over it draining moderate amount of turbid, greenish-brown fluid. Ext: No clubbing, cyanosis or edema Musculo: no joint swelling or effusions Skin: no rashes/lesions Vascular: normal radial/dorsalis pedis pulses Lymph: no cervical, axillary or inguinal adenopathy Neuro: oriented, interactive, moves all extremities Psych: normal mood and affect Lines: RUE PICC Line - dressing in place clean/dry/intact without any surrounding eryth cain or tenderness J-Vac drains x2 Ostomy bag over midline fistula Lab Review Hematology Recent Labs 10/10/20 0035 10/10/20 0423 10/11/20 0400 WBC 8.7 8.8 5.8 HGB 9.8* 9.7* 9.2* HCT 30.3* 29.5* 30.1* PLTCT 404* 397 325 Chemistry Recent Labs 10/10/20 0035 10/11/20 0400 NA 136* 139 K 4.0 4.3 CL 104 106 CO2 23 24 BUN 24 25 CR 0.86 0.78 GFR >60 >60 GLU 92 97 CA 8.9 9.0 PO4 3.6 4.3 ALBUMIN 3.1* 3.2* ALKPHOS 126* 112* AST 20 17 ALT 12 10 TOTBILI 0.3 0.3 Microbiology, Radiology and other Diagnostics Review Microbiology: 09/27/2020 abdominal fluid culture: 2 colonies Brenda glabrata (resistant to remi afungin, resistant to fluconazole) 5 colonies Pseudomonas aeruginosa (R-pip/tazo , Rcefepime), VRE 10/11/2020 abdominal fluid culture: Collected and sent to lab Radiology: 10/10 CT scan abdomen/pelvis with contrast 1. Decrease in size of complex, loculated fluid and gas collection associated with the right rectus musculature with indwelling drain in place. 2. No significant change in midline extraperitoneal gas and fluid collection which surrounds the loculated right anterior abdominal fluid collection and is drained by the midline drainage catheter. Associated with this fluid collection is an open midline abdominal wound with surrounding soft tissue thickening, not significantly changed since 10/02/2020. 3. Indwelling left nephroureteral stent without hydronephrosis. 4. Prior anterior resection and right abdominal colostomy. No bowel obstruction or pneumoperitoneum. 5. Cholelithiasis with persistent mild gallbladder dilatation which may be from prolonged fasting. 6. Unchanged large left ventral abdominal wall hernia containing normal caliber loops of large and small bowel. Associated attestation - Juany Ferguson MD - 10/12/2020 7:42 AM CDT ATTESTATION I personally performed the jurado portions of the E/M visit, discussed case with th e fellow and concur with fellow documentation of history, physical exam, assessm ent, and treatment plan unless otherwise noted. Staff name: Juany Ferguson MD Date: 10/12/2020 (signed late, seen 10/11) This patient was seen 10/11 after she represented with increased drainage from he r midline incision around her HEMA tube, also with some erythema around this area, likely irritation. I have sent this drainage for culture. Of note, her Brenda glabrata returned as micafungin R after previous discharge. Have discussed w/ mi microsoft systems engineer lab and are rerunning the susceptibility. I have a low suspicion for Brenda as the main truck driver of infection, so will escalate dose of micafungin. If Brenda became more invasive or caused a bloodstream infection, could use amphotericin in that instance. There are also some novel antifungals still in study that cou ld be available, but these would require her to stay in the hospital for the ent irety of her course, which is still likely indefinite. ID will continue to follow. Juany Ferguson MD Infectious Diseases Pager [phone] Please use Voalte to contact ID. * Argenis Ward RN - 10/10/2020 1:44 PM CDT Associated Order(s): CONSULT WOUND/OSTOMY TEAM NURSE Images from the original note were not included. Wound Ostomy Note NAME:Beverly Torres :1950 AGE: 70 y.o. ADMISSION DATE: 10/10/2020 DAYS ADMITTED: LOS: 0 days Reason for Consult/Visit: pressure injury Stage II or greater Assessment/Plan: Principal Problem: Wound drainage Active Problems: Colovesical fistula Beverly Torres is a 70 y.o. female with large colovesical/vaginal fistula s/p ex lap, LAR, resection of infected mesh, partial cystectomy, complex cystorr haphy in combination ([place] 09/04), whose post-operative course c/b abdominal flu id collection s/p IR drain (09/13), new abdominal fluid collections on CT A/P () s/p IR jvac placement 09/27. Admitted with erythema and midline drainage Wound team consulted with concern for pressure injuries to bilateral buttocks. Flor childress is known to wound team from prior hospitalizations. Wound on left buttock s has healed. Skin is dry and intact. Remains fragile but is healed. Initially flor childress had a stage 3 on her coccyx that extended to her right buttocks. The amy ining open wound on her right buttocks is part of the wound that was labeled "co ccyx". Coccyx wound re-activatedd on doc flowsheet. PLAN: Coccyx - Apply barrier cream TID and PRN moisture from urine/stool. - Avoid briefs if possible; use only one disposable pad underneath pt. - Implement q2 hr turning schedule using foam wedge for support. - HOB less than or equal to 30 degrees unless contraindicated (to prevent sheari ng at coccyx/sacrum) Patient also has an ostomy and has been successful with below pouching plan. Irvin ch change per patient and bedside nursing staff. OSTOMY CARE: Suggested Pouching Supplies:#[id number] 1.Change pouch with any sign of leaking. Do not reinforce leaking pouch wi th tape 2.Clean skin with water only - no soap or wipes 3.If skin is broken down surrounding stoma, sprinkle stoma powder and wipe away the excess 4.[place] no sting skin prep on powdered skin [...] pouch emptying and pouch changes. Wounds 09/12/20 0908 Pressure Injury Coccyx (Active) 09/12/20 0908 Coccyx Wound Type: Pressure Injury Pressure Injury Stages: Stage 3 Pressure Injury Present On Inpatient Admission: N Wound/Pressure Injury Orientation: Wound Description (Comments): Wound Type:: Wound Image 10/10/20 1300 Wound Dressing Status None;Open to air 10/10/20 1300 Wound Drainage Amount None 10/10/20 1300 Wound Base Assessment [place];Moist 10/10/20 1300 Surrounding Skin Assessment Dry;[place];Intact 10/10/20 1300 Wound Site Closure None;Open to Air 10/10/20 1300 Wound Status (Wound Team Only) Being Treated 10/10/20 1300 Wound Length (cm) 1 cm 10/10/20 1300 Wound Width (cm) 1 cm 10/10/20 1300 Wound Depth (cm) 0.1 cm 10/10/20 1300 Wound Surface Area (cm^2) 1 cm^2 10/10/20 1300 Wound Volume (cm^3) 0.1 cm^3 10/10/20 1300 Wound Healing % (Wound Team Only) 96.88 10/10/20 1300 Number of days: 28 Our service will sign off at this time. Please place new consult if affected are a does not improve despite consistent implementation of recommendations listed a gisella. Thank you. JACINTO Wilson, RN, TCRN Wound/Ostomy Nursing Consult Service Available via [employer] or [employer] M-F [phone] After hours please contact wound/casework manager "comb machine operator" via Voalte * Naomie Nolan RD - 10/10/2020 12:59 PM CDT Associated Order(s): NUTRITION SUPPORT SERVICE; NUTRITION SUPPORT SERVICE Nutrition Support Service (NSS) Initial Consult Note Admit Date: 10/10/2020 Service / Attending: Surgery-Oncology - [phone] / Bran Martell DO Diagnosis: wound drainage, abdominal fluid collections Diet Order: NPO (procedure) Current PN Formula: non-standard, cyclic per home regimen to start 20:30 10/10 PN Line: double lumen PICC (09/12/2020) PMH: Medical History: Diagnosis Date Colovesical fistula Diverticulitis Hypertension Hypoglycemia Hypothyroid PONV (postoperative nausea and vomiting) Rectovaginal fistula Right ureteral injury Sepsis (HCC) 2019,2020 PSH: Surgical History: Procedure Laterality Date HX [...] 09/04/2020 Performed by Alexander Rodriguez MD at [facility] OR COLECTOMY WITH COLOPROCTOSTOMY AND COLOSTOMY - PARTIAL N/A 09/04/2020 Performed by Alexander Rodriguez MD at [facility] OR COLECTOMY WITH COLOPROCTOSTOMY AND COLOSTOMY - PARTIAL N/A 09/04/2020 Performed by Bran Martell DO at [facility] OR ABDOMEN SURGERY SECTION x 2 HX ROSARIO AND BSO Meds: Scheduled Meds:buPROPion XL (WELLBUTRIN XL) tablet 150 mg, 150 mg, Oral, Q DAY enoxaparin (LOVENOX) syringe 40 mg, 40 mg, Subcutaneous, QDAY(21) gabapentin (NEURONTIN) capsule 300 mg, 300 mg, Oral, TID levothyroxine (SYNTHROID) tablet 50 mcg, 50 mcg, Oral, QDAY linezolid (ZYVOX) tablet 600 mg, 600 mg, Oral, BID meropenem (MERREM) injection 1 g, 1 g, Intravenous, Q8H* micafungin (MYCAMINE) 100 mg in sodium chloride 0.9% (NS) 100 mL IVPB (MB+), 100 mg, Intravenous, Q24H* oxybutynin XL (DITROPAN XL) tablet 10 mg, 10 mg, Oral, QDAY pantoprazole DR (PROTONIX) tablet 40 mg, 40 mg, Oral, BID sodium chloride PF 0.9% flush 10 mL, 10 mL, Flush, FLUSH TID vancomycin (FIRVANQ) oral solution 125 mg, 125 mg, Oral, BID WATER FOR INJECTION, STERILE IJ SOLN (Cabinet Override), , , NOW Continuous Infusions: Adult Continuous Parenteral Nutrition (PN) Adult Cyclic Parenteral Nutrition (PN) lactated ringers infusion 100 mL/hr at 10/10/20 0049 PRN and Respiratory Meds:HYDROcodone/acetaminophen Q6H PRN, hyoscyamine Q4H PRN, methocarbamoL BID PRN, ondansetron (ZOFRAN) IV Q4H PRN, simethicone Q6H PRN Electrolyte Treatments: none in the last 24 hours Pertinent Labs: 10/10/2020 00:35 Sodium 136 (L) Potassium 4.0 Chloride 104 CO2 23 Anion Gap 9 BUN 24 Creatinine 0.86 Glucose 92 Albumin 3.1 (L) Lactic Acid 1.3 Calcium 8.9 Ionized David 1.11 Magnesium 2.2 Total Bilirubin 0.3 Total Protein 7.4 Phosphorus 3.6 AST (SGOT) 20 ALT (SGPT) 12 Alk Phos 126 (H) Height (cm): Height: 152.4 cm (60") Admit Weight (kg): Weight: 72.6 kg (160 lb 0.9 oz) Current Weight (kg): Weight: 72.6 kg (160 lb 0.9 oz) [place] Body Weight (kg): 58 kg, BMI 24.9 BMI (kg/m2): Body mass index is 31.26 kg/m. Estimated Kcal Needs: 0790-2174 (25-28 kcal/kg desired weight of 58 kg) Estimated Protein Needs: 80-90 (1.5 g/kg desired weight of 58 kg Physical Assessment: afebrile, RA; no edema; abdomen firm/distended/tender per R N Pressure Injuries: stage 2 x2, coccyx, stage 1 L ankle Beverly Torres is a 70 y.o. female with large colovesical/vaginal fistula s/pex lap, LAR, resection of infected mesh, partial cystectomy, complex cystor rhaphy in combination(09/04), whose post-operative course c/babdominal fluid collection s/p IR drain (09/13),now directly admitted from clinic due tonew abdominal fluid collections on CT A/P (09/26).Well known to Clinical Nutritio n and Nutrition Support Service from prior admissions. This will be the 3rd admi t in the last 3 months. Most recently discharged on 09/21. TPN continued at facili ty with regular diet. TPN initiated near goal while NPO. Will adjust regimen as indicated by clinical status changes and PO appropriateness/tolerance. With multiple abdominal fluid collections and associated drainage, maintaining ~ 100% of nutrient needs via TPN. S/p zinc course previously for pressure injuries . Electrolytes are appropriate on AM labs, no changes from previous order. Fluid s maintained at baseline need. Supplementing with additional vitamin C to help w ith wound healing. PN Orders (to start at 20:30): provides 1420 kcal Volume: 1800ml (60-120ml/hr, 16-hour cycle) Macronutrients: 85g amino acids (goal), [...] weekends per on-call. Naomie Nolan RD, LD, [facility] Office: Voalte Ut, AMS Connect documented in this encounter Miscellaneous Notes * Case Mgmt DC Plan - Kelly Ramos, RN - 10/16/2020 12:42 PM CDT Case Management Progress Note NAME:Beverly Torres :1950 AGE: 70 y.o. ADMISSION DATE: 10/10/2020 DAYS ADMITTED: LOS: 6 days Todays Date: 10/16/2020 Attending: Bran Martell DO OF 10/16 1350 -This NCM reviewed EMR, attended team huddle, and discussed patient with Dr. Annamarie hollingsworth. Current discharge barriers: switching SNF plan to home and accepting HH agecamilo mejía. Now HH admitting day at home and patient/daughter ability to care for yoly ent at home till Friday help. -This NCM was contacted by Joyce with [facility] [phone] and informed that they were able to moved PRN RNs around to be able to admit patient to on Friday. -Patient and daughter will get IV abx education at 1530. -Sheldon with [facility] [phone]/ fax [phone] contacting nahid masters about the best time to do bedside education and delivery of supplies/meds. -Sent final signed orders. -At bedside at 1530. -Dr. Loomis has expressed that if DC today is feasible and patient/daughter is ok ay with this plan we can go ahead and attempt DC today 10/16. -Patient and both daughters are happy with going home today and caring for kraig nt till home health is able to see her on Friday. Send medications [place] to [place] pharmacy per patient and daughter request. -DC will be around 1700pm after IV education. Previous issues 10/16 morning Plan Anticipated discharge today with family, HH care, and IV abx. NO DC TODAY UNABLE TO FIND AN ACCEPTING HH AGENCY. Interventions Support Info or Referral Discharge Planning -NCM notified by primary team that patient is now medically stable for discharge home. -SNF no longer a possibility since PT/OT now recommending home therapies. -This NCM contacted intake with multiple to inform of referral for HH-RN-IV need s and estimated discharge of 10/16. Fax sent and receipt confirmation. -DENIED: [facility] - denied due to staffing/complexity; [facility] - denied due to insurance; [facility] - denied -location (not crossing [place]) -NO MORE HH AGENCIES AVAILABLE PER MEDICARE LIST. [facility] in the are a. -[facility] - No HH. -Clinic HH mentioned [facility] [phone] -NCM INFORMED MD team. Calling back [facility] and [facility] for when staffing is available. -[facility] confirmed denial due to patient complexity and would not take on patient even when staffing is better. -[facility] [phone] confirmed denial - the soonest they woul d be able to take patient on is in 3 weeks (when one of the RNs gets off orienta tion). -This [facility] contacted Sheldon with [facility] [phone]/ fax to inform of referral for two IV abx and estimated discharge of 10/16. Fax sent and receipt confirmation. -ACCEPTED. -PCP Geraldo Mcknight [phone]/F [phone] and Infectious Disease office [phone]/ fax [phone] to follow HH orders upon DC. -Orders have been completed and set to be signed. AVS updated with current outsi de agency information. -Will continue to follow hospital course and coordinate DC needs with outside ag encies. Medication Needs Financial Legal Other Disposition Expected Discharge Date 10/16/2020 4:00 PM Transportation Next Level of Care (Acute Psych discharges only) Discharge Disposition Selected Continued Care - Admitted Since 10/10/2020 [facility] Destination Coordination complete Service Provider Selected Services Address Phone Fax Patient Preferred [facility] [address], [place] [address] [phone] Kelly CASEY, RN Inpatient Nurse Qm ConsultantRheologist Oncology Office: Pager: [phone] M-F [phone] * Case Mgmt DC Plan - Karlene Duong LMSW - 10/16/2020 9:00 AM CDT Case Management Progress Note NAME:Beverly Torres :1950 AGE: 70 y.o. ADMISSION DATE: 10/10/2020 DAYS ADMITTED: LOS: 6 days Todays Date: 10/16/2020 Plan D/C planning - Home w/ HH Interventions Support Info or Referral Discharge Planning Per team the pt is medically stable for d/c. [facility] sent updates to [facility]. They have requested insurance authorizati on. Pt requested to d/c home with HH. [facility] discussed d/c to home with the pt's rosanne Smith. She notified the pt's other daughter, Katarzyna about providing tra nsportation. [facility] notified [facility] of pt's desire for HH. [facility] updated that HH was secured. [facility] updated [facility] of the pt's plan to d/c home w/ HH. Medication Needs Financial Legal Other Disposition Expected Discharge Date 10/16/2020 4:00 PM Transportation Next Level of Care (Acute Psych discharges only) Discharge Disposition Selected Continued Care - Admitted Since 10/10/2020 Destination Coordination complete Service Provider Selected Services Address Phone Fax Patient Preferred [facility] [address] [place] [address] Karlene Duong LMSW Voalte - [phone] * Case Mgmt DC Chris - Karlene Duong LMSW - 10/13/2020 10:40 AM CDT Case Management Progress Note NAME:Beverly Torres :1950 AGE: 70 y.o. ADMISSION DATE: 10/10/2020 DAYS ADMITTED: LOS: 3 days Todays Date: 10/13/2020 Plan D/C planning ongoing Interventions Support Info or Referral Discharge Planning JILLIAN attended team huddle. Pt will likely not be ready for d/c until Friday - still looking into her abx regimen. Pt was denied to LTACH. Pt will not d/c on TPN as originally anticipated. [facility] updated the pt's daughter about the LTACH denial. Discussed SNF options as a d/c plan. JILLIAN emailed Sarah walls at [email or web address] a list of in-network SNF facilities. Sarah agreed that a referral to [facility] would b e a good start. JILLIAN met with the pt at bedside and discussed denial to LTACH. Discussed tobias t she will not d/c on TPN. PT/OT to see the pt today - appreciate their recs. [facility] spoke with the pt's daughter and pt. If pt d/c with salomon and on IV abx placement would be appreciated for her care. Pt would like to go back to [facility] if at all possible at d/c. Pt will keep her salomon at d/c until she follow up with her urologist and will likely d/c on IV abx. [facility] can accept her but will not start authorization until Friday, 8- 2. [facility] requested PT/OT to see the pt over the weekend. Medication Needs Financial Legal Other Disposition Expected Discharge Date 10/16/2020 4:00 PM Transportation Next Level of Care (Acute Psych discharges only) Discharge Disposition Selected Continued Care - Admitted Since 10/10/2020 No services have been selected for the patient. Karlene Duong LMSW Voalte - [phone] * Case Mgmt DC Plan - Karlene Duong LMSW - 10/10/2020 4:08 PM CDT Case Management Progress Note NAME:Beverly Torres :1950 AGE: 70 y.o. ADMISSION DATE: 10/10/2020 DAYS ADMITTED: LOS: 0 days Todays Date: 10/10/2020 Plan Assessement - please see assessment dated 09-05-20 below. Pt was d/c to [facility] on 10-03-20. Pt was readmitted to [facility] on 10-09-20 with purulent drainage from her incisio n site. [facility] met with the pt and her daughters at bedside. No changes to assessment information. Pt cannot return to [facility] due to her complexity. Pt would like to d/c to [facility] at d/c. [facility] sent referral to [facility] per her request. Karlene Duong, [facility] Voalte - [phone] Case Management Admission Assessment NAME:Beverly TorresMRN :[id number]:1950GE:70 y. o. ADMISSION DATE:09/04/2020AYS ADMITTED:LOS: 1 day Todays Date:09/05/2020 Source of Information:Pt, EMR, Huddle Plan Plan: Case Management Assessment, Assist PRN with SW/NCM Services, Discharge Katty nning for Home with Post-Acute Care Needs, Discharge Planning for Post-Acute Fac ility -NCet pt and her sister Katelin/Katelin's spouse at bedside. Pt consents to asse ssment with her family present. -NCMintroduced self, explained role of CM, confirmed pt demographics and provi ded contact information. -Pt lives in a single level home with no steps with her fiance who is currently in [facility] on a vent with [employer]. -Pt repts she admitted from [facility] post acute facility and plans to return. -Discussed plan of discharge with pt. -CM will continue to follow for possible pt needs. Patient Address/Phone [address] [address] (home) Emergency Contact Extended Emergency [...] use Medicaid Transportation?: No Expected Discharge Date 12:00 PM Living Situation Prior to Admission Living Arrangements Type of Residence: alf facility Living Arrangements: Spouse/significant other(Maria De Jesus is currently in [facility] on a ventilator bating [facility] Bathroom Shower / Tub: Tub/Shower Unit How many levels in the residence?: 1 Can patient live on one level if needed?: Yes Does residence have entry and/or side stairs?: No Assistance needed prior to admit or anticipated on discharge: Yes Who provides assistance or could if needed?: [facility] acute care facility. 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 Financial Resources Coverage Primary Insurance: Medicare Replacement Secondary Insurance: No insurance Additional Coverage: RX(Pt fills scripts at [facility] on [address] and reports low copays.) Source of Income Source Of Income: Employed Financial Assistance Needed? [facility] Psychosocial Needs Mental Health Mental Health History: In the past Substance Use History Substance Use History Screen: In the past Comment: Pt quit smoking 4 mos ago. Other na Current/Previous Services PCP Geraldo Mcknight,[phone] Pharmacy [facility] - [address] [place] [address] [facility] [id number] [place] [phone] Durable Medical Equipment Durable Medical Equipment at [...] No Outpatient Therapy PT: No OT: No FLUX MIXER: No [facility] Facility/Group Home SNF: Yes When did patient receive care?: until admission Name of Facility: [facility] Would patient return for future services?: Yes NH: No Inpatient Rehab IPR: No Long-Term Acute Care Hospital LTACH: No Acute Hospital Stay Acute Hospital Stay: In the past Was patient's stay within the last 30 days?: No Gini Jeffrey RN BSN, [facility] Nurse Qm Consultant Pager: [phone] documented in this encounter Plan of Treatment Order Schedule Name Type Priority Associated Diag noses Expected: 10/23/2020 (Approximate), Expi res: 10/16/2021 CBC AND DIFF Lab Routine Colovesical fis harlan Expected: 10/23/2020 (Approximate), Expi res: 10/16/2021 COMPREHENSIVE METABOLIC Lab Routine Colove sical fistula PANEL documented as of this encounter Goals Goal Patient Associated Recent Progress Patient-Stat Aut hor Goal Type Problems ed? Resume normal activities Hospital On track (09/05/2020 Yes Dorothy, 10:14 AM CDT) KOBI Villarreal Note: Get better and go home Improve quality of life Hospital On track (10/10/2020 Yes Desiree Rosales, 11:36 AM CDT) KOBI Note: "To get full recovery and be able to live my life, get well and be as healthy as I can" documented as of this encounter Procedures Comments Procedure Name Priority Date/Time Associated Diag nosis HC PHOSPHOROUS, SERUM Routine 10/16/2020 3:35 AM [...] POC GLUCOSE 10/13/2020 9:09 AM CDT HC TRIGLYCERIDE Routine 10/13/2020 3:30 AM CDT HC PHOSPHOROUS, SERUM Routine 10/13/2020 3:30 AM CDT HC MAGNESIUM Routine 10/13/2020 3:30 AM CDT HC HEPATIC FUNCTION PANEL Routine 10/13/2020 3:30 AM CDT HC BASIC [...] POC GLUCOSE 10/11/2020 4:10 AM CDT HC CBC,AUTOMATED Routine 10/11/2020 4:00 AM CDT HC TRIGLYCERIDE 10/11/2020 4:00 AM CDT HC PHOSPHOROUS, SERUM Routine 10/11/2020 4:00 AM CDT HC MAGNESIUM Routine 10/11/2020 4:00 AM CDT HC HEPATIC FUNCTION PANEL 10/11/2020 4:00 AM CDT HC BASIC METABOLIC PANEL Routine 10/11/2020 4:00 AM CDT POC GLUCOSE 10/10/2020 10:06 PM CDT US DOPPLER VENOUS W EXTRM STAT 10/10/2020 LEFT 2:[address] ABD/PELV W CONTRAST STAT 10/10/2020 7:04 AM CDT HC CBC,AUTOMATED Routine 10/10/2020 4:23 AM CDT CHEST SINGLE VIEW STAT 10/10/2020 2:39 AM CDT COVID-19 (SARS-COV-2) PCR Routine 10/10/2020 12:40 AM CDT CBC STAT 10/10/2020 12:35 AM CDT HC PHOSPHOROUS, SERUM STAT 10/10/2020 12:35 AM CDT HC MAGNESIUM STAT 10/10/2020 12:35 AM CDT HC LACTIC ACID(LACTATE) STAT 10/10/2020 12:35 AM CDT HC CALCIUM IONIZED STAT 10/10/2020 12:35 AM CDT HC COMPREHENSIVE STAT 10/10/2020 METABOLIC PANEL 12:35 AM CDT documented in this encounter Results * PHOSPHORUS (10/16/2020 3:35 AM CDT) Phosphorus 5.0 (H) 2.0 - 4.5 MG/DL [facility] Specimen Performing Organization Address [facility] P sid Number [facility] [address] [place] [address] * MAGNESIUM (10/16/2020 3:35 AM CDT) Magnesium 2.2 1.6 - 2.6 mg/dL [facility] Specimen Performing Organization Address [facility] P sid Number [facility] [address] [place] [address] * BASIC METABOLIC PANEL (10/16/2020 3:35 AM CDT) Sodium 138 137 - 147 [...] >60 >60 mL/min [facility] Comment: [place] The eGFR is not validated f or use in drug dosing adjustments. Continue to use estimated creatinine clearance per dosing reference text. Please contact the Clinical Pharmacist for questions. eGFR >60 >60 mL/min [facility] [place] Comment: The eGFR is not validated for use in drug dosing adjustments. Continue to use estimated creatinine clearance per dosing reference text. Please contact the Clinical Pharmacist for questions. Specimen Performing Organization Address [facility] Code P sid Number [facility] [address] [place] [address] * PHOSPHORUS (10/15/2020 4:10 AM CDT) Phosphorus 4.0 2.0 - 4.5 MG/DL [facility] Specimen Performing Organization Address City/[facility] Code P sid Number [facility] [address] [place] [address] * MAGNESIUM (10/15/2020 4:10 AM CDT) Magnesium 2.3 1.6 - 2.6 mg/dL [facility] Specimen Performing Organization Address [facility] P sid Number [facility] [address] [place] [address] * BASIC METABOLIC PANEL (10/15/2020 4:10 AM CDT) Sodium 138 137 - 147 MMOL/L [facility] Potassium 4.3 3.5 - 5.1 MMOL/L [facility] Chloride 101 98 - 110 MMOL/L [facility] CO2 26 21 - 30 MMOL/L [facility] Anion Gap 11 3 - 12 [facility] Glucose 76 70 - 100 MG/DL [facility] Blood Urea 30 (H) 7 - 25 MG/DL [facility] Nitrogen Creatinine 0.90 0.4 - 1.00 MG/DL [facility] Calcium 9.3 8.5 - 10.6 MG/DL [facility] eGFR Non >60 >60 mL/min [facility] Comment: [place] The eGFR is not validated f or use in drug dosing adjustments. Continue to use estimated creatinine clearance per dosing reference text. Please contact the Clinical Pharmacist for questions. eGFR >60 >60 mL/min [facility] [place] Comment: The eGFR is not validated for use in drug dosing adjustments. Continue to use estimated creatinine clearance per dosing reference text. Please contact the Clinical Pharmacist for questions. Specimen Performing Organization Address City/[facility]/ZIP Code P sid Number [facility] [address] [place] [address] * PHOSPHORUS (10/14/2020 2:01 AM CDT) Phosphorus 4.2 2.0 - 4.5 MG/DL [facility] Specimen Performing Organization Address City/[facility] Code P sid Number [facility] [address] [place] [address] * MAGNESIUM (10/14/2020 2:01 AM CDT) Magnesium 2.3 1.6 - 2.6 mg/dL MAIN LAB Specimen Performing Organization Address City/[facility]/ZIP Code P sid Number MAIN LAB [address] [place] [address] * BASIC METABOLIC PANEL (10/14/2020 2:01 AM CDT) Sodium 136 (L) 137 - 147 MMOL/L [facility] Potassium 4.3 3.5 - 5.1 MMOL/L [facility] Chloride 100 98 - 110 MMOL/L [facility] CO2 26 21 - 30 MMOL/L [facility] Anion Gap 10 3 - 12 [facility] Glucose 89 70 - 100 MG/DL [facility] Blood Urea 32 (H) 7 - 25 MG/DL [facility] Nitrogen Creatinine 0.83 0.4 - 1.00 MG/DL [facility] Calcium 9.2 8.5 - 10.6 MG/DL [facility] eGFR Non >60 >60 mL/min [facility] Comment: [place] The eGFR is not validated f or use in drug dosing adjustments. Continue to use estimated creatinine clearance per dosing reference text. Please contact the Clinical Pharmacist for questions. eGFR >60 >60 mL/min [facility] [place] Comment: The eGFR is not validated for use in drug dosing adjustments. Continue to use estimated creatinine clearance per dosing reference text. Please contact the Clinical Pharmacist for questions. Specimen Performing Organization Address City/[facility]/ZIP Code P sid Number MAIN LAB [address] [place] [address] * POC GLUCOSE (10/13/2020 4:57 PM CDT) Glucose, POC 109 (H) 70 - 100 MG/DL [facility] Specimen Performing Organization Address City/[facility]/ZIP Code P sid Number MAIN LAB [address] [place] [address] * POC GLUCOSE (10/13/2020 12:22 PM CDT) Glucose, POC 112 (H) 70 - 100 MG/DL [facility] Specimen Performing Organization Address City/[facility]/ZIP Code P sid Number [facility] [address] [place] [address] * POC GLUCOSE (10/13/2020 9:09 AM CDT) Glucose, POC 94 70 - 100 MG/DL [facility] Specimen Performing Organization Address [facility] Code P sid Number [facility] [address] [place] [address] * TRIGLYCERIDE (10/13/2020 3:30 AM CDT) Triglycerides 164 (H) <150 MG/DL [facility] Specimen Blood Performing Organization Address City/[facility] Code P sid Number [facility] [address] [place] [address] * PHOSPHORUS (10/13/2020 3:30 AM CDT) Phosphorus 4.0 2.0 - 4.5 MG/DL [facility] Specimen Performing Organization Address City/[facility] P sid Number [facility] [address] [place] [address] * MAGNESIUM (10/13/2020 3:30 AM CDT) Magnesium 2.3 1.6 - 2.6 mg/dL [facility] Specimen Performing Organization Address [facility] P sid Number [facility] [address] [place] [id number] * BASIC METABOLIC PANEL (10/13/2020 3:30 AM CDT) Sodium 139 137 - 147 MMOL/L [facility] Potassium 4.3 3.5 - 5.1 MMOL/L [facility] Chloride 104 98 - 110 MMOL/L [facility] CO2 26 21 - 30 MMOL/L [facility] Anion Gap 9 3 - 12 [facility] Glucose 81 70 - 100 MG/DL [facility] Blood Urea 32 (H) 7 - 25 MG/DL [facility] Nitrogen Creatinine 0.85 0.4 - 1.00 MG/DL [facility] Calcium 9.1 8.5 - 10.6 MG/DL [facility] eGFR Non >60 >60 mL/min [facility] Comment: [place] The eGFR is not validated f or use in drug dosing adjustments. Continue to use estimated creatinine clearance per dosing reference text. Please contact the Clinical Pharmacist for questions. eGFR >60 >60 mL/min [facility] [place] Comment: The eGFR is not validated for use in drug dosing adjustments. Continue to use estimated creatinine clearance per dosing reference text. Please contact the Clinical Pharmacist for questions. Specimen Performing Organization Address City/[facility]/ZIP Code P sid Number [facility] [address] [place] [address] * LIVER FUNCTION PANEL (10/13/2020 3:30 AM CDT) Total Bilirubin 0.3 0.3 - 1.2 MG/DL [...] MAIN LAB Specimen Blood Performing Organization Address [facility] P sid Number [facility] [address] [place] [address] * POC GLUCOSE (10/13/2020 2:58 AM CDT) Glucose, POC 85 70 - 100 MG/DL [facility] Specimen Performing Organization Address [facility] Code P sid Number [facility] [address] [place] [address] * PHOSPHORUS (10/12/2020 5:10 AM CDT) Phosphorus 3.5 2.0 - 4.5 MG/DL [facility] Specimen Performing Organization Address [facility] P sid Number [facility] [address] [place] [address] * MAGNESIUM (10/12/2020 5:10 AM CDT) Magnesium 2.2 1.6 - 2.6 mg/dL [facility] Specimen Performing Organization Address [facility] Code P sid Number [facility] [address] [place] [address] * BASIC METABOLIC PANEL (10/12/2020 5:10 AM CDT) Sodium 139 137 - 147 MMOL/L [facility] Potassium 4.3 3.5 - 5.1 MMOL/L [facility] Chloride 104 98 - 110 MMOL/L [facility] CO2 27 21 - 30 MMOL/L [facility] Anion Gap 8 3 - 12 [facility] Glucose 85 70 - 100 MG/DL [facility] Blood Urea 31 (H) 7 - 25 MG/DL [facility] Nitrogen Creatinine 0.80 0.4 - 1.00 MG/DL [facility] Calcium 8.8 8.5 - 10.6 MG/DL [facility] eGFR Non >60 >60 mL/min [facility] Comment: [place] The eGFR is not validated f or use in drug dosing adjustments. Continue to use estimated creatinine clearance per dosing reference text. Please contact the Clinical Pharmacist for questions. eGFR >60 >60 mL/min [facility] [place] Comment: The eGFR is not validated for use in drug dosing adjustments. Continue to use estimated creatinine clearance per dosing reference text. Please contact the Clinical Pharmacist for questions. Specimen Performing Organization Address City/State/ZIP Code P sid Number [facility] [address] [place] [address] * GRAM STAIN (10/11/2020 3:00 PM CDT) Battery Name GRAM STAIN [facility] [...] Specimen Drainage - Abdomen Performing Organization Address City/State/Z[place] [facility] [place] Number [facility] [address] [place] [address] * CULTURE-WOUND/TISSUE/FLUID(AEROBIC ONLY)W/SENSITIVITY (10/11/2020 3:00 PM CDT) Battery Name ROUTINE CULTURE [facility] [...] 128: Resistant Brenda glabrata Performing Organization Address [facility] Code P sid Number [facility] [address] [place] [address] * POC GLUCOSE (10/11/2020 4:10 AM CDT) Glucose, POC 107 (H) 70 - 100 MG/DL [facility] Specimen Performing Organization Address [facility] P sid Number [facility] [address] [place] [address] * TRIGLYCERIDE (10/11/2020 4:00 AM CDT) Triglycerides 134 <150 MG/DL [facility] Specimen Performing Organization Address [facility] P sid Number [facility] [address] [place] [id number] * LIVER FUNCTION PANEL (10/11/2020 4:00 AM CDT) Total Bilirubin 0.3 0.3 - 1.2 MG/DL [facility] Bilirubin, 0.1 <0.4 MG/DL [facility] Direct Albumin 3.2 (L) 3.5 - 5.0 G/DL [facility] Alk Phosphatase 112 (H) 25 - 110 U/L [facility] AST (SGOT) 17 7 - 40 U/L [facility] ALT (SGPT) 10 7 - 56 U/L [facility] Total Protein 7.2 6.0 - 8.0 G/DL [facility] Specimen Performing Organization Address City/[facility]/ZIP Code P sid Number [facility] [address] [place] [id number] * PHOSPHORUS (10/11/2020 4:00 AM CDT) Phosphorus 4.3 2.0 - 4.5 MG/DL [facility] Specimen Performing Organization Address City/[facility] P sid Number [facility] [address] [place] [id number] * MAGNESIUM (10/11/2020 4:00 AM CDT) Magnesium 2.2 1.6 - 2.6 mg/dL [facility] Specimen Performing Organization Address [facility] P sid Number [facility] [address] [place] [address] * BASIC METABOLIC PANEL (10/11/2020 4:00 AM CDT) Sodium 139 137 - 147 MMOL/L [facility] Potassium 4.3 3.5 - 5.1 MMOL/L [facility] Chloride 106 98 - 110 MMOL/L [facility] CO2 24 21 - 30 MMOL/L [facility] Anion Gap 9 3 - 12 [facility] Glucose 97 70 - 100 MG/DL [facility] Blood Urea 25 7 - 25 MG/DL [facility] Nitrogen Creatinine 0.78 0.4 - 1.00 MG/DL [facility] Calcium 9.0 8.5 - 10.6 MG/DL [facility] eGFR Non >60 >60 mL/min [facility] Comment: [place] The eGFR is not validated f or use in drug dosing adjustments. Continue to use estimated creatinine clearance per dosing reference text. Please contact the Clinical Pharmacist for questions. eGFR >60 >60 mL/min [facility] [place] Comment: The eGFR is not validated for use in drug dosing adjustments. Continue to use estimated creatinine clearance per dosing reference text. Please contact the Clinical Pharmacist for questions. Specimen Performing Organization Address [facility] Code P sid Number [facility] [address] [place] [id number] * CBC (10/11/2020 4:00 AM CDT) White Blood 5.8 4.5 - 11.0 K/UL [...] P sid Number [facility] [address] [place] [address] * POC GLUCOSE (10/10/2020 10:06 PM CDT) Glucose, POC 93 70 - 100 MG/DL [facility] Specimen Performing Organization Address City/[facility]/ZIP Code P sid Number [facility] [address] [place] [address] * US DOPPLER VENOUS W EXTRM LEFT (10/10/2020 2:50 PM CDT) Specimen Left Impressions Performed At No femoral/popliteal deep venous thrombosis in the le ft lower extremity. [facility] By my electronic signature, I attest th at I have personally reviewed the images for this examination and formulated the interpretations and opinions expressed in this report Finalized by Idalia Randhawa M.D. on 021 3:31 PM. Dictated by Nishant Alaniz M.D. [...] sid Number [facility] * CT ABD/PELV W CONTRAST (10/10/2020 7:04 AM CDT) Specimen Impressions Performed At 1. Decrease in size of complex, locul ated fluid and gas collection associated [facility] with the right rectus musculature with indwelling drain in place. 2. No significant change in midline e xtraperitoneal gas and fluid collection which surrounds the loculated right ant erior abdominal fluid collection and is drained by the midline drainage cathete r. Associated with this fluid collection is an open midline abdominal wound with surrounding soft tissue thickening, not significantly changed since 10/02/2020. 3. Indwelling left nephroureteral caitlyn nt without hydronephrosis. 4. Prior anterior resection and right abdominal colostomy. No bowel obstruction or pneumoperitoneum. 5. Cholelithiasis with persistent mil d gallbladder dilatation which may be from prolonged fasting. 6. Unchanged large left ventral abdom inal wall hernia containing normal caliber loops of large and small bowel. By my electronic signature, I attest th at I have personally reviewed the images for this examination and formulated the interpretations and opinions expressed in this report Finalized by Naomie French M.D. on 8:36 AM. Dictated by Bran Stafford D.O. on 10/10/2020 7:06 AM. Narrative Performed At CT ABDOMEN AND PELVIS [facility] Clinical Indication: Assess drain katty cement and intra-abdominal fluid collections. Technique: Multiple contiguous axial images were obtained through the abdomen and pelvis following the administration of IV contrast material. Portal venous phase of postcontrast imaging was obtai mayur. Post processing coronal and sagittal reconstruction images were made from th e axial images. IV contrast: Yes Bowel contrast: None Comparison: CT abdomen pelvis 10/02/2020 FINDINGS: Lower Thorax: Mild bibasilar atelectasi s. The heart is normal in size. Aortic valve calcifications. Liver and Biliary system: Mild hepatome lorena. Tiny hypodensity in segment 3 of the liver which is too small to charact erize. No biliary ductal dilation. Calcified stones in the mildly dilated gallbladder, unchanged. The portal veins are patent. Spleen: Unremarkable. Adrenal Glands and Kidneys: Unremarkabl e right adrenal gland. Unchanged left adrenal nodule, which previously demons trated noncontrast attenuation compatible with a lipid rich adenoma. Small foci of gas within the right emili l pelvis without hydronephrosis. Unchanged left renal cyst and additiona l too small to characterize left renal hypodensities. Left ureteral stent with proximal end in the left ureteropelvic junction and distal end in the urinary bladder. Pancreas and Retroperitoneum: The pancr eas is unremarkable. No central retroperitoneal lymphadenopathy. Promin ent/mildly enlarged periportal lymph nodes are unchanged and likely reactive . Aorta and Major Vessels: The abdominal aorta is normal in caliber. Mild aortoiliac atherosclerosis. Bowel, Mesentery and Peritoneal space: Prior low anterior resection and right abdominal colostomy. The small and larg e bowel are normal in caliber. Multiple loops of colon and small bowel within t he large left ventral abdominal wall hernia. No significant ascites. No pneu moperitoneum. Pelvis: Salomon catheter in place and tin y focus of gas within the decompressed urinary bladder. Ureteral stent termina yanna within the bladder. Prior hysterectomy. No pelvic lymphadenopathy . 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 Persistent tiny amount of fluid along the rectal stump suture charlotte e. No new pelvic fluid collection. Abdominal wall and Osseous Structures: Right percutaneous drain within a complex right ventral abdominal wall loculated fluid collection associated with the right rectus muscle. The loculated flui d collection has decreased in size since 10/02/2020 and now measures approximatel y 4.7 x 1.8 cm, previously 6.1 x 2.5 cm (series 2 image 49). Surrounding and po ssibly communicating with this loculated fluid collection is an additional midli ne extraperitoneal fluid and gas collection that is not significantly ch anged in size, which is drained by a more medial percutaneous ventral drainage ca theter. Midline ventral abdominal wall open wound and surrounding soft tissue thickening is not significantly changed from 10/02/2020. No significant change in left ventral a bdominal wall hernia containing loops of small and large bowel. Scattered areas of body wall edema similar to 10/02/2020 exam. Old rib fracture deformities. Dif fuse thoracolumbar spondylosis with multilevel degenerative listhesis. Procedure Note Interface, Radiant Results - 10/10/2020 8:[address] ABDOMEN AND PELVIS Clinical Indication: Assess drain placement and intra-abdominal fluid collections. Technique: Multiple contiguous axial images were obtained through the abdomen and pelvis following the administration of IV contrast material. Portal venous phase of postcontrast imaging was obtained. Post processing coronal and sagittal reconstruction images were made from the axial images. IV contrast: Yes Bowel contrast: None Comparison: CT abdomen pelvis 10/02/2020 FINDINGS: Lower Thorax: Mild bibasilar atelectasis. The heart is normal in size. Aortic valve calcifications. Liver and Biliary system: Mild hepatomegaly. Tiny hypodensity in segment 3 of the liver which is too small to characterize. No biliary ductal dilation. Calcified stones in the mildly dilated gallbladder, unchanged. The portal veins are patent. Spleen: Unremarkable. Adrenal Glands and Kidneys: Unremarkable right adrenal gland. Unchanged left adrenal nodule, which previously demonstrated noncontrast attenuation compatible with a lipid rich adenoma. Small foci of gas within the right renal pelvis without hydronephrosis. Unchanged left renal cyst and additional too small to characterize left renal hypodensities. Left ureteral stent with proximal end in the left ureteropelvic junction and distal end in the urinary bladder. Pancreas and Retroperitoneum: The pancreas is unremarkable. No central retroperitoneal lymphadenopathy. Prominent/mildly enlarged periportal lymph nodes are unchanged and likely reactive. Aorta and Major Vessels: The abdominal aorta is normal in caliber. Mild aortoiliac atherosclerosis. Bowel, Mesentery and Peritoneal space: Prior low anterior resection and right abdominal colostomy. The small and large bowel are normal in caliber. Multiple loops of colon and small bowel within the large left ventral abdominal wall hernia. No significant ascites. No pneumoperitoneum. Pelvis: Salomon catheter in place and tiny focus of gas within the decompressed urinary bladder. Ureteral stent terminates within the bladder. Prior hysterectomy. No pelvic lymphadenopathy. 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 Persistent tiny amount of fluid along the rectal stump suture line. No new pelvic fluid collection. Abdominal wall and Osseous Structures: Right percutaneous drain within a complex right ventral abdominal wall loculated fluid collection associated with the right rectus muscle. The loculated fluid collection has decreased in size since 10/02/2020 and now measures approximately 4.7 x 1.8 cm, previously 6.1 x 2.5 cm (series 2 image 49). Surrounding and possibly communicating with this loculated fluid collection is an additional midline extraperitoneal fluid and gas collection that is not significantly changed in size, which is drained by a more medial percutaneous ventral drainage catheter. Midline ventral abdominal wall open wound and surrounding soft tissue thickening is not significantly changed from 10/02/2020. No significant change in left ventral abdominal wall hernia containing loops of small and large bowel. Scattered areas of body wall edema similar to 10/02/2020 exam. Old rib fracture deformities. Diffuse thoracolumbar spondylosis with multilevel degenerative listhesis. IMPRESSION 1. Decrease in size of complex, loculat ed fluid and gas collection associated with the right rectus musculature with indwelling drain in place. 2. No significant change in midline ext raperitoneal gas and fluid collection which surrounds the loculated right anterior abdominal fluid collection and is drained by the midline drainage catheter. Associated with this fluid collection is an open midline abdominal wound with surrounding soft tissue thickening, not significantly changed since 10/02/2020. 3. Indwelling left nephroureteral stent without hydronephrosis. 4. Prior anterior resection and right a bdominal colostomy. No bowel obstruction or pneumoperitoneum. 5. Cholelithiasis with persistent mild gallbladder dilatation which may be from prolonged fasting. 6. Unchanged large left ventral abdomin al wall hernia containing normal caliber loops of large and small bowel. By my electronic signature, I attest that I have personally reviewed the images for this examination and formulated the interpretations and opinions expressed in this report Finalized by Naomie French M.D. on 10/10/2020 8:36 AM. Dictated by Bran Stafford D.O. on 10/10/2020 7:06 AM. Performing Organization Address City/State/ZIP Code P sid Number [facility] RAD RESULTS * CBC (10/10/2020 4:23 AM CDT) White Blood 8.8 4.5 - 11.0 K/UL [facility] Cells RBC 3.38 (L) 4.0 - 5.0 M/UL [facility] Hemoglobin 9.7 (L) 12.0 - 15.0 GM/DL [facility] Hematocrit 29.5 (L) 36 - 45 % [facility] MCV 87.1 80 - 100 FL [facility] MCH 28.5 26 - 34 PG [facility] MCHC 32.7 32.0 - 36.0 G/DL [facility] RDW 17.8 (H) 11 - 15 % [facility] Platelet Count 397 150 - 400 K/UL [facility] MPV 8.1 7 - 11 FL [facility] Specimen Performing Organization Address City/[facility] Code P sid Number [facility] [address] [place] [address] * CHEST SINGLE VIEW (10/10/2020 2:39 AM CDT) Specimen Impressions Performed At Interval clearing of [...] COVID-19 (SARS-COV-2) PCR (10/10/2020 12:40 AM CDT) COVID-19 FLOCKED SWAB [facility] (SARS-CoV-2) NASOPHARYNGEAL PCR Source COVID-19 NOT DETECTED DN-NOT DETECTED [facility] (SARS-CoV-2) Comment: PCR This assay is [...] performance characteristics have been verified by the [facility]. Fact sheet for providers: https://www.fda.gov/media/1362 85/download Fact sheet for patients: https://www.fda.gov/media/6494 87/download Specimen Flocked Swab - Nasopharyngeal Performing Organization Address City/[facility]/ZIP Code P sid Number MAIN LAB [address] [place] [address] * PHOSPHORUS (10/10/2020 12:35 AM CDT) Phosphorus 3.6 2.0 - 4.5 MG/DL MAIN LAB Specimen Blood Performing Organization Address City/[facility]/ZIP Code P sid Number MAIN LAB [address] [place] [address] * LACTIC ACID(LACTATE) (10/10/2020 12:35 AM CDT) Lactic Acid 1.3 0.5 - 2.0 MMOL/L MAIN LAB Specimen Blood Performing Organization Address City/[facility]/ZIP Code P sid Number MAIN LAB [address] [place] [address] * IONIZED CALCIUM (10/10/2020 12:35 AM CDT) Ionized Calcium 1.11 1.0 - 1.3 MMOL/L MAIN LAB Specimen Blood Performing Organization Address City/[facility]/ZIP Code P sid Number MAIN LAB [address] [place] [address] * MAGNESIUM (10/10/2020 12:35 AM CDT) Magnesium 2.2 1.6 - 2.6 mg/dL [facility] Specimen Blood Performing Organization Address City/State/ZIP Code P sid Number [facility] [address] [place] [id number] * COMPREHENSIVE METABOLIC PANEL (10/10/2020 12:35 AM CDT) Sodium 136 (L) 137 - 147 MMOL/L [facility] Potassium 4.0 3.5 - 5.1 MMOL/L [facility] Chloride 104 98 - 110 MMOL/L [facility] Glucose 92 70 - 100 MG/DL [facility] Blood Urea 24 7 - 25 MG/DL [facility] Nitrogen Creatinine 0.86 0.4 - 1.00 MG/DL [facility] Calcium 8.9 8.5 - 10.6 MG/DL [facility] Total Protein 7.4 6.0 - 8.0 G/DL [facility] Total Bilirubin 0.3 0.3 - 1.2 MG/DL [facility] Albumin 3.1 (L) 3.5 - 5.0 G/DL [facility] Alk Phosphatase 126 (H) 25 - 110 U/L [facility] AST (SGOT) 20 7 - 40 U/L [facility] CO2 23 21 - 30 MMOL/L [facility] ALT (SGPT) 12 7 - 56 U/L [facility] Anion Gap 9 3 - 12 [facility] eGFR Non >60 >60 mL/min [facility] Comment: Brazilian The eGFR is not validated f or use in drug dosing adjustments. Continue to use estimated creatinine clearance per dosing reference text. Please contact the Clinical Pharmacist for questions. eGFR >60 >60 mL/min [facility] Brazilian Comment: The eGFR is not validated for use in drug dosing adjustments. Continue to use estimated creatinine clearance per dosing reference text. Please contact the Clinical Pharmacist for questions. Specimen Blood Performing Organization Address City/State/ZIP Code P sid Number [facility] [address] [place] [address] * CBC (10/10/2020 12:35 AM CDT) White Blood 8.7 4.5 - 11.0 K/UL [facility] Cells RBC 3.49 (L) 4.0 - 5.0 M/UL [facility] Hemoglobin 9.8 (L) 12.0 - 15.0 GM/DL [facility] Hematocrit 30.3 (L) 36 - 45 % [facility] MCV 86.9 80 - 100 FL MAIN LAB MCH 28.2 26 - 34 PG MAIN LAB MCHC 32.4 32.0 - 36.0 G/DL [facility] RDW 17.7 (H) 11 - 15 % [facility] Platelet Count 404 (H) 150 - 400 K/UL MAIN LAB MPV 8.4 7 - 11 FL MAIN LAB Specimen Blood Performing Organization Address City/State/ZIP Code P sid Number MAIN LAB [address] [place] [address] documented in this encounter Visit Diagnoses Diagnosis Wound drainage - Primary Open wound(s) (multiple) of unspecified site(s), without mention of complication Colovesical fistula Intestinovesical fistula Malnutrition (HCC) Unspecified protein-calorie malnutritio n Abdominal fluid collection Other ascites documented in this encounter Admitting Diagnoses Diagnosis Wound drainage Open wound(s) (multiple) of unspecified site(s), without mention of complication documented in this encounter Administered Medications Action Date Dose Rate Site Medication Order MAR Action 10/10/2020 3:54 AM CDT 650 mg acetaminophen (TYLENOL) tablet 650 mg Given 650 mg, Oral, EVERY 4 HOURS PRN, Starting on Fri10/10/20 at 0332, Until Fri10/10/20 at 0756, Pain non-opioid: may be used alone or in combination wit h opioid analgesia, TOTAL ACETAMINOPHEN DOSE NOT TO EXCEED 4GM DAILY 10/10/2020 11:18 AM CDT 650 mg acetaminophen (TYLENOL) tablet 650 mg Given 650 mg, Oral, EVERY 6 HOURS PRN, Starting on Fri10/10/20 at 0739, Until Fri10/10/20 at 1140, Headache, Pain non-opioid: may be used alone or in combination with opioid analgesia, Temp > 38 C 10/11/2020 12:00 PM CDT 60 mL/hr Adult Cyclic Parenteral Nutrition (PN) Dose/Rate Central, PN PER INSTR, 1 dose, First Change dose on Fri10/10/20 at 2030, 1,800 mL, Taper up (for PN admin over <24hrs): 1 Hours, Taper down (for PN admin over <24hr: 1 Hours 120 mL/hr Dose/Rate Change 10/10/2020 10:09 PM CDT 60 mL/hr Given - New Bag 10/10/2020 8:58 PM CDT 10/12/2020 11:00 AM CDT 70 mL/hr Adult Cyclic Parenteral Nutrition (PN) Dose/Rate Central, PN PER INSTR, 1 dose, First Change dose (after last reorder) on Fri 1 at 2030, 1,820 mL, Taper up (for PN admin over <24hrs): 1 Hours, Taper down (for PN admin over <24hr: 1 Hours 140 mL/hr Dose/Rate Change 10/11/2020 10:09 PM CDT 70 mL/hr Given - New Bag 10/11/2020 9:06 PM CDT 10/13/2020 7:51 AM CDT 80 mL/hr Adult Cyclic Parenteral Nutrition (PN) Dose/Rate Central, PN PER INSTR, 1 dose, First Change dose (after last reorder) on Fri 1 at 2030, 1,760 mL, Taper up (for PN admin over <24hrs): 1 Hours, Taper down (for PN admin over <24hr: 1 Hours 160 mL/hr Dose/Rate Change 10/12/2020 10:00 PM CDT 80 mL/hr Given - New Bag 10/12/2020 8:51 PM CDT 10/13/2020 10:53 PM CDT 180 mL/hr Adult Cyclic Parenteral Nutrition (PN) Dose/Rate Central, PN PER INSTR, First dose (after Change last reorder) on Fri10/13/20 at 2030, Until Discontinued, 1,980 mL, Taper up (for PN admin over <24hrs): 1 Hours, Taper down (for PN admin over <24hr: 1 Hours 90 mL/hr Given - New Bag 10/13/2020 9:34 PM CDT 10/14/2020 3:17 AM CDT 30 mL aluminum/magnesium hydroxide (MAALOX) Given oral suspension 30 mL 30 mL, Oral, ONCE, 1 dose, On Fri10/14/20 at 0345 10/16/2020 8:55 AM CDT 150 mg buPROPion XL (WELLBUTRIN XL) tablet 150 Given mg 150 mg, Oral, DAILY, First dose on Fri10/10/20 at 0900, Until Discontinued, DO NOT CRUSH 150 mg Given 10/15/2020 8:36 AM CDT 150 mg Given 10/14/2020 9:15 AM CDT 150 mg Given 10/13/2020 9:52 AM CDT 150 mg Given 10/12/2020 10:13 AM CDT 150 mg Given 10/11/2020 8:36 AM CDT 150 mg Given 10/10/2020 8:25 AM CDT 10/15/2020 8:07 PM CDT 40 mg Arm, Rig ht enoxaparin (LOVENOX) syringe 40 mg Given 40 mg, Subcutaneous, DAILY, First dose on Fri10/10/20 at 2100, Until Discontinued, For patients undergoing surgery: Consult physician in advance - - enoxaparin is an anticoagulant and may need to be held for 12hr prior to surgery or invasive procedures. NOTE: This is a HIGH ALERT Medication. 40 mg Arm, Left Given 10/14/2020 9:20 PM CDT 40 mg Arm, Left Given 10/13/2020 9:26 PM CDT 40 mg Abdominal Tissue Given 10/12/2020 8:03 PM CDT 40 mg Arm, Left Given 10/11/2020 9:06 PM CDT 40 mg Arm, Right Given 10/10/2020 8:58 PM CDT 10/10/2020 8:25 AM CDT 300 mg gabapentin (NEURONTIN) capsule 300 mg Given 300 mg, Oral, TWICE DAILY, First dose o n Fri10/10/20 at 0900, Until Discontinued 10/16/2020 3:06 PM CDT 300 mg gabapentin (NEURONTIN) capsule 300 mg Given 300 mg, Oral, THREE TIMES DAILY, First dose (after last modification) on Fri10/10/20 at 1500, Until Discontinued 300 mg Given 10/16/2020 8:55 AM CDT 300 mg Given 10/15/2020 8:06 PM CDT 300 mg Given 10/15/2020 2:41 PM CDT 300 mg Given 10/15/2020 8:36 AM CDT 300 mg Given 10/14/2020 9:20 PM CDT 300 mg Given 10/14/2020 2:43 PM CDT 300 mg Given 10/14/2020 9:15 AM CDT 300 mg Given 10/13/2020 9:26 PM CDT 300 mg Given 10/13/2020 1:55 PM CDT 300 mg Given 10/13/2020 9:51 AM CDT 300 mg Given 10/12/2020 8:04 PM CDT 300 mg Given 10/12/2020 3:50 PM CDT 300 mg Given 10/12/2020 10:14 AM CDT 300 mg Given 10/11/2020 9:06 PM CDT 300 mg Given 10/11/2020 2:23 PM CDT 300 mg Given 10/11/2020 8:36 AM CDT 300 mg Given 10/10/2020 8:58 PM CDT 300 mg Given 10/10/2020 5:28 PM CDT 10/12/2020 3:50 PM CDT 600 mg guaiFENesin LA (MUCINEX) tablet 600 mg Given 600 mg, Oral, TWICE DAILY PRN, Starting on Fri10/10/20 at 1303, Until Fri 1 at 1934, Congestion 600 mg Given 10/10/2020 1:47 PM CDT 10/15/2020 9:34 PM CDT 2 tablets HYDROcodone/acetaminophen (NORCO) 5/325 Given mg tablet 1-2 tablet 1-2 tablet, Oral, EVERY 6 HOURS PRN, Starting on Fri10/10/20 at 1140, Until Fri10/16/20 at 1934, Pain PO, TOTAL ACETAMINOPHEN DOSE NOT TO EXCEED 4GM DAILY NOTE: This is a HIGH ALERT Medication. 2 tablets Given 10/15/2020 6:36 AM CDT 2 tablets Given 10/14/2020 10:53 AM CDT 1 tablet Given 10/14/2020 1:22 AM CDT 1 tablet Given 10/13/2020 5:06 PM CDT 2 tablets Given 10/12/2020 11:55 PM CDT 1 tablet Given 10/12/2020 5:01 PM CDT 2 tablets Given 10/12/2020 10:26 AM CDT 2 tablets Given 10/12/2020 4:03 AM CDT 2 tablets Given 10/11/2020 2:23 PM CDT 2 tablets Given 10/11/2020 8:36 AM CDT 1 tablet Given 10/10/2020 9:01 PM CDT 2 tablets Given 10/10/2020 1:47 PM CDT 10/14/2020 3:57 AM CDT 0.125 mg hyoscyamine (ANASPAZ) rapid dissolve Given tablet 0.125 mg 0.125 mg, Sublingual, EVERY 4 HOURS PRN, Starting on Fri10/10/20 at 0739, Until Fri10/16/20 at 1934, Bladder Spasm s 0.125 mg Given 10/12/2020 5:01 PM CDT 0.125 mg Given 10/11/2020 4:40 PM CDT 0.125 mg Given 10/11/2020 10:11 AM CDT 0.125 mg Given 10/10/2020 11:18 AM CDT 10/10/2020 7:15 AM CDT 80 mL iohexoL (OMNIPAQUE-350) 350 mg/mL Given injection 80 mL 80 mL, Intravenous, ONCE, 1 dose, On 10/10/20 at 0715, NOTE: This is a HIGH ALERT Medication. 10/11/2020 8:37 AM CDT 100 mL/hr lactated ringers infusion Given - New 1,000 mL, Intravenous, at 100 mL/hr, Bag CONTINUOUS, Starting on Fri10/10/20 at 0015, Until Fri10/11/20 at 1558 100 mL/hr Given - New Bag 10/10/2020 1:47 PM CDT 100 mL/hr Given - New Bag 10/10/2020 12:49 AM CDT 10/16/2020 8:55 AM CDT 50 mcg levothyroxine (SYNTHROID) tablet 50 mcg Given 50 mcg, Oral, DAILY, First dose on Fri10/10/20 at 0900, Until Discontinued, Give 1 hour before a meal. If patient is receiving tube feedings, hold tube feed 1hr before and 1hr after dose. 50 mcg Given 10/15/2020 8:36 AM CDT 50 mcg Given 10/14/2020 9:15 AM CDT 50 mcg Given 10/13/2020 9:52 AM CDT 50 mcg Given 10/12/2020 10:13 AM CDT 50 mcg Given 10/11/2020 8:36 AM CDT 50 mcg Given 10/10/2020 8:26 AM CDT 10/16/2020 8:55 AM CDT 600 mg linezolid (ZYVOX) tablet 600 mg Given 600 mg, Oral, TWICE DAILY, First dose o n Fri10/10/20 at 0230, Until Discontinued 600 mg Given 10/15/2020 8:06 PM CDT 600 mg Given 10/15/2020 8:36 AM CDT 600 mg Given 10/14/2020 9:19 PM CDT 600 mg Given 10/14/2020 9:15 AM CDT 600 mg Given 10/13/2020 9:26 PM CDT 600 mg Given 10/13/2020 9:52 AM CDT 600 mg Given 10/12/2020 8:04 PM CDT 600 mg Given 10/12/2020 10:13 AM CDT 600 mg Given 10/11/2020 9:06 PM CDT 600 mg Given 10/11/2020 8:36 AM CDT 600 mg Given 10/10/2020 8:58 PM CDT 600 mg Given 10/10/2020 8:25 AM CDT 600 mg Given 10/10/2020 3:23 AM CDT 10/11/2020 10:56 AM CDT 1 g meropenem (MERREM) injection 1 g Given 1 g, Intravenous, EVERY 8 HOURS, First dose on Fri10/10/20 at 0230, Until Discontinued, Ready to Administer -- IV PUSH -- Reconstitute EACH 500 mg of Meropenem by adding 10 mL of sterile water. Use immediately after reconstitution. 1 g Given 10/11/2020 4:04 AM CDT 1 g Given 10/10/2020 6:57 PM CDT 1 g Arm, Right Given 10/10/2020 11:17 AM CDT 1 g Given 10/10/2020 3:22 AM CDT 10/16/2020 3:05 PM CDT 2 g meropenem (MERREM) injection 2 g Given 2 g, Intravenous, EVERY 8 HOURS, First dose (after last modification) on Fri10/11/20 at 1930, Until Discontinued, Ready to Administer -- IV PUSH -- Reconstitute EACH 500 mg of Meropenem b y adding 10 mL of sterile water. Use immediately after reconstitution. 2 g Given 10/16/2020 5:44 AM CDT 2 g Given 10/15/2020 9:34 PM CDT 2 g Given 10/15/2020 2:41 PM CDT 2 g Given 10/15/2020 5:15 AM CDT 2 g Given 10/14/2020 9:20 PM CDT 2 g Given 10/14/2020 2:42 PM CDT 2 g Given 10/14/2020 5:50 AM CDT 2 g Given 10/13/2020 10:54 PM CDT 2 g Given 10/13/2020 1:55 PM CDT 2 g Given 10/13/2020 2:58 AM CDT 2 g Given 10/12/2020 8:01 PM CDT 2 g Given 10/12/2020 11:54 AM CDT 2 g Given 10/12/2020 4:04 AM CDT 2 g Given 10/11/2020 9:07 PM CDT 10/16/2020 3:08 PM CDT 750 mg methocarbamoL (ROBAXIN) tablet 750 mg Given 750 mg, Oral, TWICE DAILY PRN, Starting on Fri10/10/20 at 0449, Until Fri 1 at 1934, Spasms 750 mg Given 10/15/2020 1:45 PM CDT 750 mg Given 10/14/2020 3:17 AM CDT 750 mg Given 10/13/2020 5:06 PM CDT 750 mg Given 10/10/2020 6:08 AM CDT 10/11/2020 4:03 AM CDT 100 mg 100 mL/hr micafungin (MYCAMINE) 100 mg in sodium Given - New chloride 0.9% (NS) 100 mL IVPB (MB+) Bag 100 mg, Intravenous, 100 mL, Administer over 60 Minutes, EVERY 24 HOURS, First dose on Fri10/10/20 at 0230, Until Discontinued 100 mg 100 mL/hr Given - New Bag 10/10/2020 3:22 AM CDT 10/16/2020 3:28 AM CDT 150 mg 110 mL/hr micafungin (MYCAMINE) 150 mg in sodium Given - New chloride 0.9% (NS) 110 mL IVPB Bag 150 mg, Intravenous, 110 mL, Administer over 60 Minutes, EVERY 24 HOURS, First dose on Fri10/12/20 at 0400, Until Discontinued, PROTECT FROM LIGHT 150 mg 110 mL/hr Given - New Bag 10/15/2020 3:54 AM CDT 150 mg 110 mL/hr Given - New Bag 10/14/2020 4:39 AM CDT 150 mg 110 mL/hr Given - New Bag 10/13/2020 3:05 AM CDT 150 mg 110 mL/hr Given - New Bag 10/12/2020 4:03 AM CDT 10/11/2020 4:41 PM CDT 50 mg 100 mL/hr micafungin (MYCAMINE) 50 mg in sodium Given - New chloride 0.9% (NS) 100 mL IVPB (MB+) Bag 50 mg, Intravenous, 100 mL, Administer over 60 Minutes, ONCE, 1 dose, On Fri10/11/20 at 1615, PROTECT FROM LIGHT 10/15/2020 6:26 PM CDT 4 mg ondansetron (ZOFRAN) injection 4 mg Given 4 mg, Intravenous, EVERY 4 HOURS PRN, Starting on Fri10/10/20 at 1140, Until Fri10/16/20 at 1934, Nausea/Vomiting Injectable 10/16/2020 8:55 AM CDT 10 mg oxybutynin XL (DITROPAN XL) tablet 10 mg Given 10 mg, Oral, DAILY, First dose on Fri10/10/20 at 0900, Until Discontinued, Do not crush or chew 10 mg Given 10/15/2020 8:36 AM CDT 10 mg Given 10/14/2020 9:15 AM CDT 10 mg Given 10/13/2020 9:52 AM CDT 10 mg Given 10/12/2020 10:14 AM CDT 10 mg Given 10/11/2020 8:36 AM CDT 10 mg Given 10/10/2020 8:26 AM CDT 10/16/2020 8:55 AM CDT [address] (PROTONIX) tablet 40 mg Given 40 mg, Oral, TWICE DAILY, First dose on Fri10/10/20 at 0900, Until Discontinued , Do not crush or chew tablet. 40 mg Given 10/15/2020 8:06 PM CDT 40 mg Given 10/15/2020 8:36 AM CDT 40 mg Given 10/14/2020 9:20 PM CDT 40 mg Given 10/14/2020 9:15 AM CDT 40 mg Given 10/13/2020 9:26 PM CDT 40 mg Given 10/13/2020 9:52 AM CDT 40 mg Given 10/12/2020 8:03 PM CDT 40 mg Given 10/12/2020 10:14 AM CDT 40 mg Given 10/11/2020 9:06 PM CDT 40 mg Given 10/11/2020 8:36 AM CDT 40 mg Given 10/10/2020 8:58 PM CDT 40 mg Given 10/10/2020 8:26 AM CDT 10/15/2020 1:40 PM CDT 17 g polyethylene glycol 3350 (MIRALAX) Given packet 17 g 17 g, Oral, DAILY PRN, Starting on Fri10/12/20 at 0839, Until Fri10/16/20 at 0647, Constipation PO, 8.5 GRAMS = 0.5 PACKET 17 GRAMS = 1 PACKET 34 GRAMS = 2 PACKETS 17 g Given 10/13/2020 1:55 PM CDT 10/13/2020 11:01 PM CDT 17 g polyethylene glycol 3350 (MIRALAX) Given packet 17 g 17 g (1 packet), Oral, ONCE, 1 dose, On Fri10/13/20 at 2330, 8.5 GRAMS = 0.5 PACKET 17 GRAMS = 1 PACKET 34 GRAMS = 2 PACKETS 10/16/2020 8:55 AM CDT 17 g polyethylene glycol 3350 (MIRALAX) Given packet 17 g 17 g, Oral, DAILY, First dose (after last modification) on Fri10/16/20 at 0900, Until Discontinued, 8.5 GRAMS = 0.5 PACKET 17 GRAMS = 1 PACKET 34 GRAMS = 2 PACKETS 10/16/2020 9:00 AM CDT 1 tablet senna/docusate (SENOKOT-S) tablet 1 Given tablet 1 tablet, Oral, TWICE DAILY, First dose on Fri10/12/20 at 0945, Until Discontinued, Hold for loose stools 1 tablet Given 10/15/2020 8:06 PM CDT 1 tablet Given 10/15/2020 8:36 AM CDT 1 tablet Given 10/14/2020 9:20 PM CDT 1 tablet Given 10/14/2020 9:14 AM CDT 1 tablet Given 10/13/2020 9:26 PM CDT 1 tablet Given 10/13/2020 9:51 AM CDT 1 tablet Given 10/12/2020 8:05 PM CDT 1 tablet Given 10/12/2020 10:26 AM CDT 10/13/2020 9:34 PM CDT 80 mg simethicone (MYLICON) chew tablet 80 mg Given 80 mg, Oral, EVERY 6 HOURS PRN, Starting on Fri10/10/20 at 0740, Until Fri10/16/20 at 1934, Flatulence 10/14/2020 4:39 AM CDT 250 mL 10 mL/hr SODIUM CHLORIDE 0.9 % IV SOLP (Cabinet Given - New Override) Bag NOW, 1 dose, On 10/14/20 at 0445, Created by cabinet override, Created by cabinet override 10/16/2020 8:56 AM CDT 10 mL sodium chloride PF 0.9% flush 10 mL Given 10 mL, Flush, FLUSH THREE TIMES DAILY, First dose on Fri10/10/20 at 0800, Unti l Discontinued, Flush central, Midline or PICC line, with 5-10 mL every 8 hours using the push-pause (turbulent) method . Flush all lumens that do not have a continuous infusion. After obtaining blood specimen, flush catheter with 20 mL. 10 mL Given 10/16/2020 3:00 AM CDT 10 mL Given 10/15/2020 4:59 PM CDT 10 mL Given 10/15/2020 8:36 AM CDT 10 mL Given 10/15/2020 12:00 AM CDT 10 mL Given 10/14/2020 5:04 PM CDT 10 mL Given 10/14/2020 9:15 AM CDT 10 mL Given 10/13/2020 10:54 PM CDT 10 mL Given 10/13/2020 5:00 PM CDT 10 mL Given 10/13/2020 9:52 AM CDT 10 mL Given 10/12/2020 10:30 PM CDT 10 mL Given 10/12/2020 3:51 PM CDT 10 mL Given 10/12/2020 12:00 PM CDT 10 mL Given 10/12/2020 10:28 AM CDT 10 mL Given 10/11/2020 2:24 PM CDT 10 mL Given 10/11/2020 8:37 AM CDT 10 mL Given 10/10/2020 5:28 PM CDT 10 mL Given 10/10/2020 8:27 AM CDT 10/10/2020 7:15 AM CDT 50 mL sodium chloride PF 0.9% injection 50 mL Given 50 mL, Intravenous, ONCE, 1 dose, On 10/10/20 at 0715, DO NOT SEND this medication unless it is requested. This med is usually available in floor stock . 10/16/2020 8:55 AM CDT 125 mg vancomycin (FIRVANQ) oral solution 125 Given mg 125 mg, Oral, TWICE DAILY, First dose o n Fri10/10/20 at 0215, Until Discontinued 125 mg Given 10/15/2020 8:09 PM CDT 125 mg Given 10/15/2020 8:36 AM CDT 125 mg Given 10/14/2020 9:20 PM CDT 125 mg Given 10/14/2020 9:14 AM CDT 125 mg Given 10/13/2020 10:54 PM CDT 125 mg Given 10/13/2020 9:52 AM CDT 125 mg Given 10/12/2020 8:03 PM CDT 125 mg Given 10/12/2020 10:26 AM CDT 125 mg Given 10/11/2020 9:06 PM CDT 125 mg Given 10/11/2020 8:39 AM CDT 125 mg Given 10/10/2020 8:58 PM CDT 125 mg Given 10/10/2020 8:22 AM CDT 10/10/2020 3:22 AM CDT 20 mL WATER FOR INJECTION, STERILE IJ SOLN Given (Cabinet Override) NOW, 1 dose, On Fri10/10/20 at 0330, Created by cabinet override, Created by cabinet override 10/10/2020 11:30 AM CDT 20 mL WATER FOR INJECTION, STERILE IJ SOLN Given (Cabinet Override) NOW, 1 dose, On Fri10/10/20 at 1130, Created by cabinet override, Created by cabinet override 10/10/2020 6:57 PM CDT 20 mL WATER FOR INJECTION, STERILE IJ SOLN Given (Cabinet Override) NOW, 1 dose, On Fri10/10/20 at 1345, Created by cabinet override, Created by cabinet override 10/11/2020 4:04 AM CDT 20 mL WATER FOR INJECTION, STERILE IJ SOLN Given (Cabinet Override) NOW, 1 dose, On Fri10/11/20 at 0415, Created by cabinet override, Created by cabinet override 10/11/2020 11:00 AM CDT 20 mL WATER FOR INJECTION, STERILE IJ SOLN Given (Cabinet Override) NOW, 1 dose, On Fri10/11/20 at 1100, Created by cabinet override, Created by cabinet override 10/12/2020 12:00 PM CDT 20 mL WATER FOR INJECTION, STERILE IJ SOLN Given (Cabinet Override) NOW, 1 dose, On Fri10/12/20 at 1200, Created by cabinet override, Created by cabinet override 10/12/2020 8:04 PM CDT 20 mL WATER FOR INJECTION, STERILE IJ SOLN Given (Cabinet Override) NOW, 1 dose, On Fri10/12/20 at 2000, Created by cabinet override, Created by cabinet override 10/13/2020 2:59 AM CDT 20 mL WATER FOR INJECTION, STERILE IJ SOLN Given (Cabinet Override) NOW, 1 dose, On Fri10/13/20 at 0300, Created by cabinet override, Created by cabinet override 10/13/2020 10:54 PM CDT 20 mL WATER FOR INJECTION, STERILE IJ SOLN Given (Cabinet Override) NOW, 1 dose, On Fri10/13/20 at 2215, Created by cabinet override, Created by cabinet override 10/14/2020 5:51 AM CDT 20 mL WATER FOR INJECTION, STERILE IJ SOLN Given (Cabinet Override) NOW, 1 dose, On Fri10/14/20 at 0545, Created by cabinet override, Created by cabinet override 10/14/2020 2:42 PM CDT 40 mL WATER FOR INJECTION, STERILE IJ SOLN Given (Cabinet Override) NOW, 1 dose, On Fri10/14/20 at 1445, Created by cabinet override, Created by cabinet override 10/14/2020 9:21 PM CDT 20 mL WATER FOR INJECTION, STERILE IJ SOLN Given (Cabinet Override) NOW, 1 dose, On 10/14/20 at 2115, Created by cabinet override, Created by cabinet override 10/15/2020 5:15 AM CDT 20 mL WATER FOR INJECTION, STERILE IJ SOLN Given (Cabinet Override) NOW, 1 dose, On 10/15/20 at 0515, Created by cabinet override, Created by cabinet override 10/15/2020 2:41 PM CDT 40 mL WATER FOR INJECTION, STERILE IJ SOLN Given (Cabinet Override) NOW, 1 dose, On 10/15/20 at 1430, Created by cabinet override, Created by cabinet override 10/15/2020 9:35 PM CDT 20 mL WATER FOR INJECTION, STERILE IJ SOLN Given (Cabinet Override) NOW, 1 dose, On 10/15/20 at 2130, Created by cabinet override, Created by cabinet override 10/16/2020 5:44 AM CDT 20 mL WATER FOR INJECTION, STERILE IJ SOLN Given (Cabinet Override) NOW, 1 dose, On 10/16/20 at 0545, Created by cabinet override, Created by cabinet override 10/16/2020 3:10 PM CDT 20 mL WATER FOR INJECTION, STERILE IJ SOLN Given (Cabinet Override) NOW, 1 dose, On 10/16/20 at 1515, Created by cabinet override, Created by cabinet override documented in this encounter Discontinued Medications Start Date End Date Medication Sig Discontinue Reason 10/03/2020 10/16/2020 loperamide (IMODIUM A-D) Initial: 2 mg capsule 4mg, followed by 2mg after each loose stool (max: 16mg/day) 10/03/2020 10/16/2020 micafungin (MYCAMINE) 100 Administer mg/5 mL 100 mg in sodium one hundred chloride 0.9% (NS) 0.9 % mg through 100 mL IVPB vein every 24 hours. Tentatively through 10/12 or until discontinued by infectious diseases physician. 10/03/2020 10/16/2020 vancomycin (FIRVANQ) 25 Take 5 mL by Reorder mg/mL oral solution mouth twice daily. 10/03/2020 10/16/2020 meropenem (MERREM) 1 g/20 Administer 2 Reorder mL injection grams over 3 hours intravenousl y every 8 hours. Tentatively through 10/12 or until discontinued by infectious diseases physician. 10/03/2020 10/16/2020 linezolid (ZYVOX) 600 mg Take one Reorder tablet tablet by mouth twice daily. Tentatively through 10/12 or until discontinued by infectious diseases physician. 10/03/2020 10/16/2020 HYDROcodone/acetaminophen Take one Reorder (NORCO) 5/325 mg tablet tablet to two tablets by mouth every 6 hours as needed 10/03/2020 10/16/2020 methocarbamoL (ROBAXIN) Take one Reorder 750 mg tablet tablet by mouth twice daily as needed for Spasms. documented as of this encounter Active and Recently Administered Medications Times are shown in CDT. 10/15/2020 10/16/2020 Medication Order 10/14/2020 aluminum/magnesium hydroxide (MAALOX) 0317 (Given - oral suspension 30 mL (COMPLETED) Provider: Kayla 30 mL, Oral, ONCE, 1 dose, On Noel Laguna RN) 10/14/20 at 0345 0836 (Given - Provider: Mohsen Benton) 0855 (Given - Provider: Rachel Shelby RN) buPROPion XL (WELLBUTRIN XL) tablet 150 0915 (Given - mg Provider: Bran 150 mg, Oral, DAILY, First dose on Hany Hunter RN) 10/10/20 at 0900, Until Discontinued, DO NOT CRUSH 2006 (Given - Provider: Caorlyn Kline RN) enoxaparin (LOVENOX) syringe 40 mg 0 (Given - 40 mg, Subcutaneous, DAILY, First dose Provider: Franck braden on Fri10/10/20 at 2100, Until KOBI Hand) Discontinued, For patients undergoing surgery: Consult physician in advance - - enoxaparin is an anticoagulant and may need to be held for 12hr prior to surgery or invasive procedures. NOTE: This is a HIGH ALERT Medication. 0836 (Given - Provider: Mohsen Benton)1441 (Given - Provider: Bran Hunter RN)2005 (Given - Provider: Carolyn Kline RN) 0855 (Given - Provider: Rachel Shelby RN)1506 (Given - Provider: Rachel Shelby RN) gabapentin (NEURONTIN) capsule 300 mg 0915 (Given - 300 mg, Oral, THREE TIMES DAILY, First Provider: Jeevan page dose (after last modification) on Fri KOBI Hunter)1 443 10/10/20 at 1500, Until Discontinued (Given - Provide r: Bran Hunter RN)2119 (Given - Provider: Hortencia Hand RN) 0836 (Given - Provider: Mohsen Benton) 0855 (Given - Provider: Rachel Shelby RN) levothyroxine (SYNTHROID) tablet 50 mcg 914 (Given - 50 mcg, Oral, DAILY, First dose on Fri Provider: Jeevan page 10/10/20 at 0900, Until Discontinued, KOBI Hunter) Give 1 hour before a meal. If patient is receiving tube feedings, hold tube feed 1hr before and 1hr after dose. 0836 (Given - Provider: Mohsen Benton)2005 (Given - Provider: Carolyn Kline RN) 0855 (Given - Provider: Rachel Shelby RN) linezolid (ZYVOX) tablet 600 mg 0915 (Given - 600 mg, Oral, TWICE DAILY, First dose on Provider: Andreina brock hilda 10/10/20 at 0230, Until Discontinued KOBI Hunter )2118 (Given - Provider: Hortencia Hand RN) 0515 (Given - Provider: Hortencia Hand RN) 144 (Given - Provider: Bran Hunter RN)213 (Given - Provider: Carolyn Kline RN) 0544 (Given - Provider: Carolyn Kline RN)1505 (Given - Provider: Rachel Shelby RN) meropenem (MERREM) injection 2 g 0550 (Given - 2 g, Intravenous, EVERY 8 HOURS, First Provider: An nikhil dose (after last modification) on Fri KOBI Resendiz)144 2 10/11/20 at 1930, Until Discontinued, (Given - Provid er: Ready to Administer -- IV PUSH -- Bran Hunter, Reconstitute EACH 500 mg of Meropenem by RN)2119 (Gi felix - adding 10 mL of sterile water. Use Provider: Hortencia immediately after reconstitution. KOBI Hand) 0354 (Given - New Bag - Provider: Hortencia Hand RN) 0328 (Given - New Bag - Provider: Georgette Kline, KOBI) micafungin (MYCAMINE) 150 mg in sodium 0439 (Given - New chloride 0.9% (NS) 110 mL IVPB Bag - Provider: 150 mg, Intravenous, 110 mL, Administer Bridgett stevens RN) over 60 Minutes, EVERY 24 HOURS, First dose on [facility] 10/12/20 at 0400, Until Discontinued, PROTECT FROM LIGHT 0836 (Given - Provider: Mohsen Benton) 0855 (Given - Provider: Rachel Shelby RN) oxybutynin XL (DITROPAN XL) tablet 10 mg 15 (Given - 10 mg, Oral, DAILY, First dose on Fri Provider: Bran 10/10/20 at 0900, Until Discontinued, Do Dale RN ) not crush or chew 08 (Given - Provider: Mohsen Benton)2005 (Given - Provider: Carolyn Kline, KOBI) 0855 (Given - Provider: Rachel Shelby RN) pantoprazole DR (PROTONIX) tablet 40 mg 0915 (Given - 40 mg, Oral, TWICE DAILY, First dose on Provider: Mirella ulloa 10/10/20 at 0900, Until Discontinued, Mohsen Hunter)2119 Do not crush or chew tablet. (Given - Provider: Hortencia Hand RN) 0855 (Given - Provider: Rachel Shelby RN) polyethylene glycol 3350 (MIRALAX) packet 17 g 17 g, Oral, DAILY, First dose (after last modification) on Fri10/16/20 at 0900, Until Discontinued, 8.5 GRAMS = 0.5 PACKET 17 GRAMS = 1 PACKET 34 GRAMS = 2 PACKETS 0836 (Given - Provider: Mohsen Benton)2005 (Given - Provider: Carolyn Kline, KOBI) 0900 (Given - Provider: Rachel Shelby, KOBI) senna/docusate (SENOKOT-S) tablet 1 0914 (Given - tablet Provider: Bran 1 tablet, Oral, TWICE DAILY, First dose KOBI Hunter )2119 on Rand 10/12/20 at 0945, Until (Given - Provider: Discontinued, Hold for loose stools Hortencia Hand RN) SODIUM CHLORIDE 0.9 % IV SOLP (Cabinet 0439 (Given - New Override) (COMPLETED) Bag - Provider: JINNY, 1 dose, On 10/14/20 at 0445, Bridgett Resendiz RN) Created by cabinet override, Created by cabinet override 0000 (Given - Provider: Hortencia Hand RN) 0836 (Given - Provider: Bran Hunter RN)1659 (Given - Provider: Bran Hunter RN) 0300 (Given - Provider: Carolyn Kline , KOBI)0856 (Given - Provider: Rachel Shelby RN)1600 (Due) sodium chloride PF 0.9% flush 10 mL 0915 (Given - 10 mL, Flush, FLUSH THREE TIMES DAILY, Provider: Jeevan page First dose on Fri10/10/20 at 0800, Until Hunter, R N)1704 Discontinued, Flush central, Midline or (Given - Pro vider: PICC line, with 5-10 mL every 8 hours Bran Hunter RN) using the push-pause (turbulent) method . Flush all lumens that do not have a continuous infusion. After obtaining blood specimen, flush catheter with 20 mL. 0836 (Given - Provider: Bran Hunter, R N)2008 (Given - Provider: Carolyn Kline, KOBI) 0855 (Given - Provider: Rachel Shelby RN) vancomycin (FIRVANQ) oral solution 125 0914 (Given - mg Provider: Bran 125 mg, Oral, TWICE DAILY, First dose on Hunter, R N)211910/10/20 at 0215, Until Discontinued (Given - Pro vider: Hortencia Hand RN) WATER FOR INJECTION, STERILE IJ SOLN 0551 (Given - (Cabinet Override) (COMPLETED) Provider: Bridgett STEARNS, 1 dose, On 10/14/20 at 0545, KOBI Resendiz) Created by cabinet override, Created by cabinet override WATER FOR INJECTION, STERILE IJ SOLN 1442 (Given - (Cabinet Override) (COMPLETED) Provider: Bran STEARNS, 1 dose, On 10/14/20 at 1445, KOBI Hunter) Created by cabinet override, Created by cabinet override WATER FOR INJECTION, STERILE IJ SOLN 2120 (Given - (Cabinet Override) (COMPLETED) Provider: Hortencia STEARNS, 1 dose, On 10/14/20 at 2115, KOBI Hand) Created by cabinet override, Created by cabinet override 0515 (Given - Provider: Hortencia Hand, RN) WATER FOR INJECTION, STERILE IJ SOLN (Cabinet Override) (COMPLETED) NOW, 1 dose, On 10/15/20 at 0515, Created by cabinet override, Created by cabinet override 1441 (Given - Provider: Mohsen Benton) WATER FOR INJECTION, STERILE IJ SOLN (Cabinet Override) (COMPLETED) NOW, 1 dose, On 10/15/20 at 1430, Created by cabinet override, Created by cabinet override 2135 (Given - Provider: Carolyn Kline RN) WATER FOR INJECTION, STERILE IJ SOLN (Cabinet Override) (COMPLETED) NOW, 1 dose, On 10/15/20 at 2130, Created by cabinet override, Created by cabinet override 0544 (Given - Provider: Carolyn Kline RN) WATER FOR INJECTION, STERILE IJ SOLN (Cabinet Override) (COMPLETED) NOW, 1 dose, On 10/16/20 at 0545, Created by cabinet override, Created by cabinet override 1510 (Given - Provider: Rachel Shelby RN) WATER FOR INJECTION, STERILE IJ SOLN (Cabinet Override) (COMPLETED) NOW, 1 dose, On 10/16/20 at 1515, Created by cabinet override, Created by cabinet override 10/15/2020 10/16/2020 Medication Order 10/14/2020 guaiFENesin LA (MUCINEX) tablet 600 mg 600 mg, Oral, TWICE DAILY PRN, Starting Fri10/10/20 at 1303, Until Fri10/16/20 a t 1934, Congestion 0636 (Given - Provider: Hortencia Hand, KOBI) 2134 (Given - Provider: Carolyn Kline RN) HYDROcodone/acetaminophen (NORCO) 5/325 0122 (Given - mg tablet 1-2 tablet Provider: Bridgett 1-2 tablet, Oral, EVERY 6 HOURS PRN, KOBI Resendiz)020 9 Starting Fri10/10/20 at 1140, Until Mon (Canceled En try - 10/16/20 at 1934, Pain PO, TOTAL Provider: Bridgett ACETAMINOPHEN DOSE NOT TO EXCEED 4GM KOBI Resendiz)1053 DAILY NOTE: This is a HIGH ALERT (Given - Provider: Medication. Bran Hunter RN) hyoscyamine (ANASPAZ) rapid dissolve 0357 (Given - tablet 0.125 mg Provider: Bridgett 0.125 mg, Sublingual, EVERY 4 HOURS KOBI Resendiz) PRN, Starting Fri10/10/20 at 0739, Unti l Fri10/16/20 at 1934, Bladder Spasms 1345 (Given - Provider: Mohsen Benton) 1508 (Given - Provider: Rachel Shelby RN) methocarbamoL (ROBAXIN) tablet 750 mg 0317 (Given - 750 mg, Oral, TWICE DAILY PRN, Starting Provider: Ben martin Fri10/10/20 at 0449, Until Fri10/16/20 at KOBI Laguna) 1934, Spasms 1826 (Given - Provider: Mohsen Benton) ondansetron (ZOFRAN) injection 4 mg 4 mg, Intravenous, EVERY 4 HOURS PRN, Starting Fri10/10/20 at 1140, Until Fri10/16/20 at 1934, Nausea/Vomiting Injectable 1340 (Given - Provider: Mohsen Benton) polyethylene glycol 3350 (MIRALAX) packet 17 g (CANCELED) 17 g, Oral, DAILY PRN, Starting Fri10/12/20 at 0839, Until Fri10/16/20 at 0647, Constipation PO, 8.5 GRAMS = 0.5 PACKET 17 GRAMS = 1 PACKET 34 GRAMS = 2 PACKETS simethicone (MYLICON) chew tablet 80 mg 80 mg, Oral, EVERY 6 HOURS PRN, Starting Fri10/10/20 at 0740, Until Fri10/16/20 at 1934, Flatulence documented in this encounter Orders First Ordered Date Medications Ordered That Might Not Have Count Last Ordered Date Been Administered 10/11/2020 WATER FOR INJECTION, STERILE IJ SOLN 2 0 10/12/2020 (Cabinet Override) Adult Continuous Parenteral Nutrition 1 10/10/2020 (PN) First Ordered Date Diet Count Last Ordered Date DISCHARGE DIET REGULAR 1 10/16/2020 First Ordered Date Nursing Count Last Ordered Date DISCHARGE ACTIVITY DRIVING 1 10/16/2020 DISCHARGE ACTIVITY LIFTING 1 10/16/2020 DISCHARGE ACTIVITY NORMAL 1 10/16/2020 DISCHARGE CONTACT 1 10/16/2020 DISCHARGE OSTOMY CARE 1 10/16/2020 DISCHARGE PICC LINE CARE 1 10/16/2020 DISCHARGE SIGNS/SYMPTOMS 1 10/16/2020 DISCHARGE URINARY CATHETER CARE 1 2020 DISCHARGE WOUND CARE 1 10/16/2020 WEIGH PATIENT 1 10/10/2020 First Ordered Date Consult Count Last Ordered Date CONSULT INFECTIOUS DISEASES PHYSICIAN 1 10/11/2020 CONSULT WOUND/OSTOMY TEAM NURSE 1 2020 NUTRITION SUPPORT SERVICE 2 10/10/2020 First Ordered Date OT Count Last Ordered Date OT CONSULT OCCUPATIONAL THERAPY 1 2020 First Ordered Date PT Count Last Ordered Date 10/10/2020 PT CONSULT PHYSICAL THERAPY 2 10/11/2020 First Ordered Date Admission Count Last Ordered Date ADMIT TO INPATIENT (NO BED REQUEST) 1 First Ordered Date Discharge Count Last Ordered Date DISCHARGE PATIENT NOW 1 10/16/2020 First Ordered Date Equipment Count Last Ordered Date 10/10/2020 PUMP IV CONTROL UNIT W/MODULES 2 021 COMPRESSION DEVICE, LEG 1 10/10/2020 First Ordered Date Vital Signs Count Last Ordered Date VITAL SIGNS 1 10/10/2020 First Ordered Date Activity Count Last Ordered Date MOBILITY 1 10/10/2020 First Ordered Date Intake & Output Count Last Ordered Date INTAKE AND OUTPUT 1 10/10/[address] & Maintain Count Last Ordered Date PLACE AND MAINTAIN SCD 1 10/10/2020 First Ordered Date DME/Home Health Count Last Ordered Date HOME HEALTH/DME 1 10/16/2020 documented in this encounter Additional Health Concerns Last Indicated Resolved Time Infection Onset Date 09/27/2020 Pseudomonas - MDRO 09/27/2020 Assessment Noted Time A fall risk assessment has been completed for the pat ient 10/16/2020 8:00 AM CDT documented as of this encounter
--- OUTSIDE RECORDS SUMMARY | 2020-11-03 21:47 | XMS REPORT | Encounter Summary ---
Author Author [facility] Organization [facility] Address Unknown Phone Unavailable Care Team Providers Care Track Announcer Name Role Phone Geraldo Mcknight MD PCP Dale Leal DO 23 Unavailable Reason for Visit * Reason Onset Date Comments Outpatient Antibiotic 10/04/2020 Therapy (Opat) Encounter Details Care Team Description Date Type Department Juany Ferguson MD [address] [place] [address] Outpatient Antibiotic Therapy (Opat) 10/04/2020 Telephone Infectious Diseases : [address], [address] [address] Social History Date Tobacco Use [...] patient have a visual impairment: Yes - [place] ders 07/31/2020 Does the patient have impaired ambulation: Yes 07/31/2020 Does the patient have an activity of daily living No (ADL) impairment: 07/31/2020 Does the patient have an instrumental activity of No daily living (IADL) impairment: Date of Assessment Cognitive Status Response 07/31/2020 Does the patient have a cognitive impairment: No documented as of this encounter Miscellaneous Notes * Telephone Encounter - Elida Gtz RN - 10/04/2020 4:26 PM CDT ACTIVE OPAT: 10/04/20 Hosp D/C Date: 10/03/[address] Hassan Next f/u: TBD Repeat CT a/p ~3 weeks (tentatively ~10/23) Diagnosis: Abdominal Abscess VRE / Colovesicular fistula End date:10/[address] results --Meropenem 2g IV Q 8 hrs --Micafungin 100 mg IV QD --PO Zyvox 600 mg BID --PO Vancomycin 125mg BID x 1 more wk after IV abx's Labs: Wkly CBC w/Diff, CMP Start: 10/09/20 Line:DL Picc J-Vac Drain [facility] SNF: Iz=[phone] / Fax= [phone] Martin nurse confirmed all abx's and labs. documented in this encounter Plan of Treatment [...]
--- OUTSIDE RECORDS SUMMARY | 2020-11-03 21:47 | XMS REPORT | Encounter Summary ---
Author Author [facility] Organization [facility] Address Unknown Phone Unavailable Care Team Providers Care Manager Investment Banking Name Role Phone Geraldo Mcknight MD PCP Dale Leal DO 23 Unavailable Reason for Referral * Radiology Services (Urgent) Referred By Contact Referred To Contact Status Reason Specialty Diagnoses / Procedures Loren Garrido APRN-RECRUITMENT ADVERTISING MANAGER [address] [place] [address] [facility] [address] [facility] [address], [address] [place] [address] Authorized Radiology Diagnoses Colovesical fistula P rocedures CT PELVIS WO/W CONTRAST Electronically signed by Loren ZAPATA at Reason for Visit * Auth/Cert Referred By Contact Referred To Contact Status Reason Specialty Diagnoses / Procedures Diagnoses Urinary fistula Urinary fistula [N36.0] P rocedures MT COLONOSCOPY FLX DX W/COLLJ SPEC WHEN PFRMD MT CYSTO BLADDER W/URETERAL CATHETERIZATION COLONOSCOPY DIAGNOSTIC WITH SPECIMEN COLLECTION BY BRUSHING/ WASHING - FLEXIBLE CYSTOURETHROSCOPY WITH URETERAL CATHETERIZATION WITH/ WITHOUT IRRIGATION/ INSTILLATION/ URETEROPYELOGRAPHY Encounter Details Care Team Description Date Type Department Loren Garrido APRN-NP [address] [place] [address] 09/26/2020 Hospital Imaging, CT: Main C ampus, Encounter [facility] [address], [address] [place] [address] Social History Date Tobacco Use [...] patient have a visual impairment: Yes - [place] ders 07/31/2020 Does the patient have impaired [...] 10/03/2020 Miscellaneous Medical Colostomy 20 each Supply [facility] supplies and accessories Dispense twenty of each for one month of supplies Dx Colovesical fistula N32.1 10/03/2020 Miscellaneous Medical ICD-10:Ileost 1 each Supply [facility] ketan in place (HCC) Z93.2 Ileostomy supplies and [...] 10/03/2020 Miscellaneous Medical Colostomy 20 each Supply [facility] supplies and accessories Dispense twenty of each [...] Name Priority Date/Time Associated Diag nosis CT PELVIS WO/W CONTRAST STAT 09/26/2020 Colove sical fistula 2:[address] ABDOMEN W CONTRAST STAT 09/26/2020 Colovesi murali fistula 2:34 PM CDT documented in this encounter Results * CT PELVIS WO/W CONTRAST (09/26/2020 2:34 [...] collection. No signific ant abdominal ascites. Pelvis: Salomon catheter within the bladd er which when [...] significant abdominal ascites. Pelvis: Salomon catheter within the bladder which when distended [...] collection. No signific ant abdominal ascites. Pelvis: Salomon catheter within the bladd er which when [...] significant abdominal ascites. Pelvis: Salomon catheter within the bladder which when distended [...] Code P sid Number KU RAD RESULTS documented in this encounter Visit Diagnoses Diagnosis Colovesical fistula Intestinovesical fistula documented in this encounter Administered Medications Action Date Dose Rate Site Medication Order MAR Action 09/26/2020 2:45 PM CDT 100 mL iohexoL (OMNIPAQUE-350) 350 mg/mL Given injection 100 mL 100 mL, Intravenous, ONCE, 1 dose, On Fri09/26/20 at 1445, NOTE: This is a HIGH ALERT Medication. 09/26/2020 2:45 PM CDT 6 mL iopamidol 300 (ISOVUE-300) injection 6 Given mL 6 mL, Urethral, ONCE, 1 dose, On Fri09/26/20 at 1445, NOTE: This is a HIGH ALERT Medication. 09/26/2020 2:45 PM CDT 50 mL sodium chloride PF 0.9% injection 50 mL Given 50 mL, Intravenous, ONCE, 1 dose, On 09/26/20 at 1445, Intra-procedure (IR) documented in this encounter Additional Health Concerns Last Indicated Resolved Time Infection Onset Date 09/13/2020 09/27/2020 8:54 AM CDT VRE 06/29/2020 Assessment Noted Time A fall risk assessment has been completed for the pat ient 09/26/2020 8:22 PM CDT documented as of this encounter
--- OUTSIDE RECORDS SUMMARY | 2020-11-03 21:47 | XMS REPORT | Encounter Summary ---
Author Author [facility] Organization [facility] Address Unknown Phone Unavailable Care Team Providers Care Aerospace Products Sales Engineer Name Role Phone Geraldo Mcknight MD PCP Dale Leal DO 23 Unavailable Reason for Visit * Reason Onset Date Comments General Question 10/09/2020 Encounter Details Care Team Description Date Type Department Simone Martell DO [facility] [place] [address] [phone] General Question 10/09/2020 Telephone Oncology: [address] [place] [address] Social History Date Tobacco Use Types Packs/Day [...] encounter Miscellaneous Notes * Telephone Encounter - Linda Reed RN - 10/09/2020 11:03 AM CDT Pt and her ID physician at [place], Dr. Wade, called today. Pt left a VM and said she called over the weekend and was told to go to ER closer to home. She s aid she doesn't trust the ERs by her, she would prefer to come to . Her ID physician called and left a VM 30 after pt did, he said he was sending he r to ER today. I called him back to discuss. Preferably by ambulance. She has a wound dehiscence on her midline incision and there is purulent dark green mine inage coming out. He said that she should go to a rehab facility prior to coming back to [place]. He said he is the ID physician at [facility], he would recom mend she go there for the interim until she is more stable. I told him I would let the oncall team know. documented in this encounter Plan of Treatment [...]
--- OUTSIDE RECORDS SUMMARY | 2020-11-03 21:47 | XMS REPORT | Encounter Summary ---
Author Author [facility] Organization [facility] Address Unknown Phone Unavailable Care Team Providers Care Graphotype Operator Name Role Phone Geraldo Mcknight MD PCP Dale Leal DO 21 Unavailable Encounter Details Care Team Description Date Type Department 10/09/2020 Travel Social History Date Tobacco Use Types [...] month, have you been in contact with [facility] to assess someone who was confirmed or [...]
--- OUTSIDE RECORDS SUMMARY | 2020-11-03 21:47 | XMS REPORT | Encounter Summary ---
Author Author [facility] Organization [facility] Address Unknown Phone Unavailable Care Team Providers Care Cathode Ray Tube Assembler Name Role Phone Geraldo Mcknight MD PCP Dale Leal DO 21 Unavailable Encounter Details Care Team Description Date Type Department 09/27/2020 Travel Social History Date Tobacco Use Types [...] has been completed for the pat ient 09/27/2020 10:00 PM CDT documented as of this encounter
--- OUTSIDE RECORDS SUMMARY | 2020-11-03 21:47 | XMS REPORT | Encounter Summary ---
Author Author [facility] Organization [facility] Address Unknown Phone Unavailable Care Team Providers Care Him Specialist Name Role Phone Geraldo Mcknight MD PCP Dale Leal DO 23 Unavailable Reason for Visit * Reason Onset Date Comments Wound 10/08/2020 Encounter Details Care Team Description Date Type Department Roger Flowers MD [address] [place] [address] [phone] Wound 10/08/2020 Telephone Oncology: [address] [address] Social History Date Tobacco Use Types Packs/Day [...] encounter Miscellaneous Notes * Telephone Encounter - Roger Flowers MD - 10/08/2020 2:47 PM CDT I spoke with a nurse at the facility where Beverly resides. She says that her i ncision has opened up more than previous in the two spots that were already open ed and there is purulent drainage coming from those areas. She is concerned that there is an infection given new erythema on the skin bridge between the two open areas. Patient does not have any fevers/chills and is otherwise normotensive and not tachycardic. I explained it is difficult to evaluate over the phone and she said she would be more comfortable having her seen by a physician. They are l ocated far away and I recommended that they present to the closest ED for work u p and they can decide if she needs to be admitted or transferred. Roger Flowers MD documented in this encounter Plan of Treatment [...]
--- OUTSIDE RECORDS SUMMARY | 2020-11-03 21:47 | XMS REPORT | Encounter Summary ---
Author Author [facility] Organization [facility] Address Unknown Phone Unavailable Care Team Providers Care Financial Aid Counselor Name Role Phone Geraldo Mcknight MD PCP Dale Leal DO 21 Unavailable Encounter Details Care Team Description Date Type Department 09/26/2020 Travel Social History Date Tobacco Use Types [...]
--- OUTSIDE RECORDS SUMMARY | 2020-11-03 21:47 | XMS REPORT | Encounter Summary ---
Author Author [facility] Organization [facility] Address Unknown Phone Unavailable Care Team Providers Care Transplanter Name Role Phone Geraldo Mcknight MD PCP Dale Leal DO 23 Unavailable Reason for Visit * Reason Onset Date Comments General Question 10/06/2020 Encounter Details Care Team Description Date Type Department Simone Martell DO [facility] [place] [address] [phone] General Question 10/06/2020 Telephone Oncology: [address] [place] [address] Social History Date Tobacco Use Types Packs/Day [...] Telephone Encounter - Linda Reed RN - 10/06/2020 3:56 PM CDT Pt nurse at [facility] (Desiree PH: [phone]) called today confused as to pt regimen with her TPN. I told her it looks like there is mention of 16 hour regim en while she was in the hospital, but I do not see it listed on pt dc paperwork. I told her to do 16 hour cycles now with her and I will have inpt case manageme nt team follow up with them next week. I have emailed Karlene Duong about this. documented in this encounter Plan of Treatment [...]
--- OUTSIDE RECORDS SUMMARY | 2020-11-03 21:48 | XMS REPORT | Encounter Summary ---
Author Author [facility] Organization [facility] Address Unknown Phone Unavailable Care Team Providers Care Applied Researcher Name Role Phone Geraldo Mcknight MD PCP Dale Leal DO 21 Unavailable Reason for Visit * Reason Onset Date Comments Records Request 09/22/2020 Encounter Details Care Team Description Date Type Department Britta Bolton MD [address] [facility] Lvl [address] [place] [id number] Records Request 09/22/2020 Telephone Specialty Screening : [facility] [address] [place] [address] Social History Date Tobacco Use Types Packs/Day [...] AM CDT Date Recorded COVID-19 Exposure Response 09/04/2020 9:57 AM CDT In the last month, have [...] encounter Miscellaneous Notes * Telephone Encounter - Merlene Roman RN - 09/22/2020 3:21 PM CDT Fax successfully sent at 0721. * Telephone Encounter - Merlene Roman RN - 09/22/2020 3:11 PM CDT Received call from patient stating she did not receive paperwork showing she rec eived her 2nd COVID vaccine before being discharged from hospital. Patient is cu rrently at [facility] in [place], [place] and states they need a co py of patient's vaccine record. Patient requested her COVID vaccine record be se nt to [phone]. documented in this encounter Plan of Treatment [...] has been completed for the pat ient 09/21/2020 8:43 AM CDT documented as of this encounter
--- OUTSIDE RECORDS SUMMARY | 2020-11-03 21:48 | XMS REPORT | Encounter Summary ---
Author Author [facility] Organization [facility] Address Unknown Phone Unavailable Care Team Providers Care Towboat Pilot Name Role Phone Geraldo Mcknight MD PCP Dale Leal DO 21 Unavailable Reason for Referral * Radiology Services (Routine) Referred By Contact Referred To Contact Status Reason Specialty Diagnoses / Procedures India Hassan MD [address] [facility] Lvl [address] [place] [id number] [facility] [address] [place] [phone] Denied Needs Radiology Diagnoses Review Abscess P rocedures CT ABD/PELV W CONTRAST Electronically signed by India Hassan MD at Reason for Visit * Reason Onset Date Comments Outpatient Antibiotic 09/22/2020 Therapy (Opat) Encounter Details Care Team Description Date Type Department India Hassan MD [address] [facility] Lvl [address] [place] [address] [phone] Outpatient Antibiotic Therapy (Opat) 09/22/2020 Telephone Infectious Diseases : [facility] [place] [address], [address] [address] Social History Date Tobacco Use [...] Telephone Encounter - Elida Gtz RN - 09/22/2020 9:41 AM CDT ACTIVE OPAT: 09/22/20 Hosp D/C Date: 09/21/[address] Hassan Next f/u: towards end of tx with CT abd/pelvis on 09/29 or 10/02.Do n ot schedule before 09/[address] can be done closer to home. Diagnosis:VRE abdominal wall possible abscess vs rectus sheath hematoma seeded End date:tentative end = 09/29 vs 10/[address] results --Cefepime 2g IV Q 8 hrs --Micafungin 100 mg IV QD --Zyvox 600 mg po BID --PO Vanco 125 mg po BID Labs: Wkly CBC w/Diff, CMP Start: 09/25 (Lab orders in O2) Line: DL Picc JVAC Drain [facility] in [place]: Wk=[phone] / Fax= [phone] /[phone] Martin STUDENT SUCCESS ADVISOR confirmed all abx and labs. Martin has end date of 09/29 on all the meds. Informed him that is not a hard stop and end date will be determined based on CT results. Martin will try and get CT scheduled for 09/[address] Hassan. Martin would like us to fax CT order and they will make arrangements and get it scheduled closer to home. documented in this encounter Plan of Treatment [...] documented as of this encounter Results * CT ABD/PELV W CONTRAST (11/01/2020) Specimen Narrative Performed At This result has an attachment that is n ot available. Performing Organization Address City/State/ZIP Code P sid Number [facility] documented in this encounter Visit [...]
--- OUTSIDE RECORDS SUMMARY | 2020-11-03 21:48 | XMS REPORT | Encounter Summary ---
Author Author [facility] Organization [facility] Address Unknown Phone Unavailable Care Team Providers Care Operations Research Engineer Name Role Phone Geraldo Mcknight MD PCP Dale Leal DO 21 Unavailable Reason for Visit * Reason Comments Post Operative Visit * Auth/Cert Referred By Contact Referred To Contact Status Reason Specialty Diagnoses / Procedures Diagnoses Urinary fistula Urinary fistula [N36.0] P rocedures SC COLONOSCOPY FLX DX W/COLLJ SPEC WHEN PFRMD SC CYSTO BLADDER W/URETERAL CATHETERIZATION COLONOSCOPY DIAGNOSTIC WITH SPECIMEN COLLECTION BY BRUSHING/ WASHING - FLEXIBLE CYSTOURETHROSCOPY WITH URETERAL CATHETERIZATION WITH/ WITHOUT IRRIGATION/ INSTILLATION/ URETEROPYELOGRAPHY Encounter Details Care Team Description Date Type Department Loren Garrido, NEUROLOGICAL SURGEON-FOOD CRITIC [address] [place] [address] [phone] Colovesical fistula (Primary Dx) 09/26/2020 Office Visit Oncology: [facility] [address] [place] [address] Social History Date Tobacco Use Types Packs/Day [...] Signs Reading Time Taken Comments Vital Sign 127/86 09/26/2020 11:08 AM CDT Blood Pressure 84 09/26/2020 11:08 AM CDT Pulse 36.7 C (98 F) 09/26/2020 11:08 AM CDT Temperature 16 09/26/2020 11:08 AM CDT Respiratory Rate 98% 09/26/2020 11:08 AM CDT Oxygen Saturation - - Inhaled Oxygen Concentration 66.7 kg (147 lb) 09/26/2020 11:08 AM CDT taken 09/25 at f acility Weight 152.4 cm (5') 09/26/2020 11:08 AM CDT Height 28.71 09/26/2020 11:08 AM CDT Body Mass Index documented in [...] as of this encounter Progress Notes * Loren Garrido APRN-FOOD CRITIC - 09/26/2020 11:00 AM CDT Images from the original note were not included. Name: Beverly Torres : 1950 AGE: 8 8 y.o. DATE OF SERVICE: 09/26/2020 Subjective: Reason for Visit: Post Operative Visit Beverly Torres is a 70 y.o. female. Cancer Staging No matching staging information was found for the patient. 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 She underwent a ex lap, LAR, resection of infected mesh, partial cystectomy, and complex cystorrha phy in combination with Dr. Rodriguez on 09/04/2020. Post operative course complicate d by abdominal fluid collection s/p IR drain on 09/13/2020. She returns to clin c today for post operative visit. She has had two instances where she has had "g ushes of fluid" come from her midline. One time this was 150cc or more. It was c lear to yellow. There may have been a slight tinge of blood in it. There is an o pen area on her midline incision that a few breanne were removed from. She is un sure where this is coming from. HEMA drain remains in place with dark brown draina ge. She does not feel well but she is unsure if that is from surgery or her seco nd COVID shot which she recently got. She continues on multiple antibiotics unde r the direction of Dr. Hassan. Her bartlett catheter is draining clear yellow urine. She continues on TPN and is also supplementing with as much food as she can eat. She orders food for every meal at her facility. Often gets full before finishin g. Ostomy continues to function well. Pain is fairly well controlled with Tyleno l. Difficult to sit for long periods of time. Continues to work with PT and OT t o regain strength. 09/07/2020 - 1. Exploratory laparotomy. 2. Low anterior resection. 3. Mobilizati on of splenic flexure. 4. Resection of infected mesh. 5. A 22 modifier for multi ple prior surgeries, infected field, infected mesh and several hernia repairs. 6 . Lysis of adhesions lasting longer than 2 hours. Findings: Dense adhesive disease throughout the pelvis. Right internal iliac ve in injury; ligated. HEMA drain left in the pelvis. Large left sided abdominal wall defect. Infected midline abdominal mesh removed. 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 Mobilization of th e splenic flexure and transverse end colostomy. Pathology: A. Colon, "rectum", resection: Focal foreign body giant cell reaction. B. Colon, "descending colon", resection: Diverticulum. C. Colon, "transverse colon", resection: Diverticula and focal serositis. D. Mesh, removal: See gross description. Medical History: Diagnosis Date Colovesical fistula Diverticulitis [...] 09/04/2020 Performed by Alexander Rodriguez MD at [facility] OR COLECTOMY WITH COLOPROCTOSTOMY AND COLOSTOMY - PARTIAL N/A 09/04/2020 Performed by Alexander Rodriguez MD at [facility] OR COLECTOMY WITH COLOPROCTOSTOMY AND COLOSTOMY - PARTIAL N/A 09/04/2020 Performed by Simone Martell DO at [facility] OR ABDOMEN SURGERY SECTION x 2 HX ROSARIO AND BSO No family history on file. Social History Socioeconomic History Marital status: Spouse [...] Use Never User Review of Systems Constitutional: Negative. Negative for chills, fever and unexpected weight wise ge. HENT: Negative. Eyes: Negative. Respiratory: Negative. Cardiovascular: Negative. Gastrointestinal: Positive for abdominal pain and nausea. Negative for abdominal distention, anal bleeding, blood in stool, constipation, diarrhea, rectal pain and vomiting. Endocrine: Negative. Genitourinary: Negative. Musculoskeletal: Negative. Skin: Negative. Negative for color change and wound. Allergic/Immunologic: Negative. Neurological: Negative. Negative for weakness and light-headedness. Hematological: Negative. Psychiatric/Behavioral: The patient is nervous/anxious. All other systems reviewed and are negative. Objective: acetaminophen (TYLENOL) 325 mg capsule Take 325 mg by mouth every 6 hours as needed. Max of 4,000 mg of acetaminophen in 24 hours. aluminum/magnesium hydroxide (MAALOX) 200/200 mg/5 mL susp oral suspension T sandrine 30 mL by mouth as Needed. buPROPion SR (WELLBUTRIN-SR) 150 mg tablet Take 150 mg by mouth daily. cefepime (MAXIPIME) 2 g/20 mL 2 g in sodium chloride 0.9% (NS) 0.9 % 100 mL IVPB (MB+) Administer two g through vein every 8 hours for 9 days. Stop date 09/14 6 gabapentin (NEURONTIN) 300 mg capsule Take one capsule by mouth twice daily. HYDROcodone/acetaminophen (NORCO) 5/325 mg tablet Take one tablet to two tab lets by mouth every 6 hours as needed hyoscyamine (ANASPAZ) 0.125 mg rapid dissolve tablet Place one tablet under tongue every 4 hours as needed. levocetirizine (XYZAL) 5 mg tab Take 1 tablet by mouth daily as needed. levothyroxine (SYNTHROID) 50 mcg tablet Take 50 mcg by mouth daily. linezolid (ZYVOX) 600 mg tablet Take one tablet by mouth twice daily for 9 d ays. Stop date 09/29 methocarbamoL (ROBAXIN) 750 mg tablet Take one tablet by mouth twice daily. micafungin (MYCAMINE) 100 mg/5 mL 100 mg in sodium chloride 0.9% (NS) 0.9 % 100 mL IVPB Administer one hundred mg through vein every 24 hours for [address] op date 09/29 Miscellaneous Medical [facility] Colostomy supplies and accessories Dispense twenty of each for one month of supplies Dx Colovesical fistula N32.1 naphazoline 0.025 % /pheniramine 0.3 % (NAPHCON-A) 0.025/0.3 % drop Apply on e drop to both eyes four times daily. nicotine (NICODERM CQ STEP 2) 14 mg/day patch Apply 1 patch to top of skin a s directed every 24 hours. Rotate patch location. Indications: stop smoking nicotine (NICODERM CQ STEP 3) 7 mg/day patch Apply 1 patch to top of skin as directed every 24 hours. Rotate patch location. Indications: stop smoking nicotine polacrilex (NICORETTE) 2 mg gum Take one each by mouth every 1 hour as needed. Chew to soften and park in mouth between lip and gum. May use 1 piec e per hour, not to exceed 24 per day, for 12 weeks. May be used for longer, if n eeded. ondansetron (ZOFRAN ODT) 4 mg rapid dissolve tablet Dissolve 4 mg by mouth e very [address] on tongue to disolve. other medication Total Parenteral Nutrition. oxybutynin XL (DITROPAN XL) 15 mg tablet Take one tablet by mouth daily for [address] (PROTONIX) 40 mg tablet Take one tablet by mouth twice daily . polyethylene glycol 3350 (MIRALAX) 17 g packet Take one packet by mouth twic e daily as needed. scopolamine (TRANSDERM-SCOP) 1mg over 3 days 3 day patch Apply 1 patch to to p of skin as directed every 72 hours. senna/docusate (SENOKOT-S) 8.6/50 mg tablet Take one tablet by mouth twice d aily. simethicone (MYLICON) 80 mg chew tablet Chew one tablet by mouth every 6 [address] rs as needed for Flatulence. sodium chloride PF 0.9% syringe Inject 10 mL to area(s) as directed twice da alyssia. Flush Jvac twice daily vancomycin (FIRVANQ) 25 mg/mL oral solution Take 5 mL by mouth twice daily. Continue while on antibiotics vitamin A & D oint Apply topically to affected area as Needed. Vitals: 09/26/20 1108 BP: 127/86 BP Source: Arm, Left Upper Patient Position: Sitting Pulse: 84 Resp: 16 Temp: 36.7 C (98 F) SpO2: 98% Weight: 66.7 kg (147 lb) Height: 152.4 cm (60") PainSc: Zero Body mass index is 28.71 kg/m. Pain Score: Zero Fatigue Scale: 7 Physical Exam Vitals reviewed. Constitutional: General: She is not in acute distress. Appearance: Normal appearance. She is well-developed. HENT: Head: Normocephalic and atraumatic. Nose: Nose normal. Eyes: General: Lids are normal. Conjunctiva/sclera: Conjunctivae normal. Pulmonary: Effort: Pulmonary effort is normal. No respiratory distress. Abdominal: Palpations: Abdomen is soft. Musculoskeletal: General: Normal range of motion. Cervical back: Normal range of motion. Skin: General: Skin is warm and dry. Neurological: Mental Status: She is alert and oriented to person, place, and time. Psychiatric: Speech: Speech normal. Behavior: Behavior normal. Thought Content: Thought content normal. Judgment: Judgment normal. Assessment and Plan: 70yo female with multiple colovesical fistulas. She underwent a ex lap, LAR, res ection of infected mesh, partial cystectomy, and complex cystorrhaphy in combina tion with Dr. Rodriguez on 09/04/2020. Generally not feeling well with concerning bro wn drainage from midline and HEMA drain. Post-Operative Care: - Reviewed that the patient has a 10lb weightlifting restriction for 6wks from t he date of surgery. I warned the patient of the risk of hernia if lifting too so on. However, encouraged aerobic activity. - Tylenol, ibuprofen, and a heating pad. - Wound care reviewed. Breanne removed today. Lowest opening very superficial wi th granulation tissue at base. Nicotine even in patch from will delay wound heal ing. Midline Wound and HEMA Draining Feculent (?) Material: - STAT CBC and CMP. - STAT CT Abd/Pelv. - Continue coverage with ABD and gauze. - Continue broad spectrum coverage per ID. Notified Dr. Hassan of concerns today. Colovesical Fistula s/p Resection: - Keep cystoscopy plan for today. - Follow up with Dr. Rodriguez today. Notified him of concerns on exam today. Malnutrition: - Continue TPN. - Supplement shakes and small meals as able. - Discussed that small frequent high protein meals will assist with healing. Exa mples of hard-boiled egg, peanut butter and crackers, or yogurt was given. [place] should eat 6 small meals a day. If not having 6 supplements with protein supp lemental shake. Deconditioning: - Continue to work with PT and OT at facility. Plan: - Pending outcome of imaging and labs. .The patient and family were allowed to ask questions and voice concerns; these were addressed to the best of our ability. They expressed understanding of what was explained to them, and they agreed with the present plan. Patient has the ph one numbers for the Cancer Center and was instructed on how to contact us with a ny questions or concerns. My collaborating provider on this patient is Dr. Simone Martell DO. Loren Garrido MSN, NEUROLOGICAL SURGEON, [facility] Advanced Practice Provider Colon and Rectal Surgery Surgical Oncology ADRIANNE for Dr. Martell, Dr. Chow and Dr. Lee Pager: [phone] Available via Voalte and InDemand Interpretingatr ADDENDUM: - CT scan with bladder leak and abscess. - WBC stable. - IR unable to get in tonight. - Will admit for plans to drain IR tomorrow. - Discussed with ID. Continue broad spectrum antibiotics. - Bed placement and Surg Onc Team called with plan. - Plan discussed with Dr. Martell, Dr. Rodriguez, and Dr. Hassna. * Loren Garrido APRN-NP - 09/26/2020 11:00 AM CDT ..This prechart is intended to be a reference for patient appointments. Informat ion is gathered from in chart as well as external records review. Information wi ll be clarified/verified/updated in final documentation in the office visit. Pre Clinic Pre Chart: Beverly is a 70yo female with multiple colovesical fistulas. She underwent a ex lap, LAR, resection of infected mesh, partial cystectomy, and complex cystorrha phy in combination with Dr. Rodriguez on 09/04/2020. Problem List: Colovesical fistulas 09/07/2020 - 1. Exploratory laparotomy. 2. Low anterior resection. 3. Mobilizati on of splenic flexure. 4. Resection of infected mesh. 5. A 22 modifier for multi ple prior surgeries, infected field, infected mesh and several hernia repairs. 6 . Lysis of adhesions lasting longer than 2 hours. Findings: Dense adhesive disease throughout the pelvis. Right internal iliac ve in injury; ligated. HEMA drain left in the pelvis. Large left sided abdominal wall defect. Infected midline abdominal mesh removed. 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 Mobilization of th e splenic flexure and transverse end colostomy. Pathology: A. Colon, "rectum", resection: Focal foreign body giant cell reaction. B. Colon, "descending colon", resection: Diverticulum. C. Colon, "transverse colon", resection: Diverticula and focal serositis. D. Mesh, removal: See gross description. documented in this encounter Plan of Treatment [...] this encounter Results * COMPREHENSIVE METABOLIC PANEL (09/26/2020 12:31 PM CDT) Pathologist [facility] Sodium 134 (L) 137 - 147 MMOL/L [...] Non >60 >60 mL/min [facility] Comment: Serbian The eGFR is not validated f or use in drug dosing adjustments. Continue to use estimated creatinine clearance per dosing reference text. Please contact the Clinical Pharmacist for questions. eGFR >60 >60 mL/min [facility] Serbian Comment: The eGFR is not validated for use in drug dosing adjustments. Continue to use estimated creatinine clearance per dosing reference text. Please contact the Clinical Pharmacist for questions. Specimen Performing Organization Address City/State/ZIP Code P sid Number [facility] [address] [place] [address] * CBC (09/26/2020 12:31 PM CDT) Pathologist [facility] White Blood 14.3 (H) 4.5 - 11.0 [...] LAB MPV 7.5 7 - 11 FL [facility] Specimen Performing Organization Address City/State/ZIP Code P sid Number [facility] [address] [place] [address] documented in this encounter Visit Diagnoses Diagnosis [...]
--- OUTSIDE RECORDS SUMMARY | 2020-11-03 21:48 | XMS REPORT | Encounter Summary ---
Author Author [facility] Organization [facility] Address Unknown Phone Unavailable Care Team Providers Care Boiler House Inspector Name Role Phone Geraldo Mcknight MD PCP Dale Leal DO 21 Unavailable Reason for Visit * Reason Onset Date Comments Medical Question 09/24/2020 Encounter Details Care Team Description Date Type Department Marti Edouard MD [address] [place] [id number] Medical Question 09/24/2020 Telephone Urology: [facility] [address] [place] [address] [address] 2, [address] [place] [address] Social History Date Tobacco Use [...] patient have a visual impairment: Yes - [place] ders 07/31/2020 Does the patient have impaired ambulation: Yes 07/31/2020 Does the patient have an activity of daily living No (ADL) impairment: 07/31/2020 Does the patient have an instrumental activity of No daily living (IADL) impairment: Date of Assessment Cognitive Status Response 07/31/2020 Does the patient have a cognitive impairment: No documented as of this encounter Miscellaneous Notes * Telephone Encounter - Marti Edouard MD - 09/24/2020 2:16 PM CDT Brief Telephone Encounter Beverly Torres called from her [facility] regarding opening of her midline abdom inal wound. She stated she first noticed a staple fall out on evening a fter leaving the hospital. Then yesterday she noticed the wound had opened and b smiley draining. I spoke with a nurse at her facility would said the opening of the wound was mine ining serosanguinous and was measured at .5cm x .75cm, with fascia visible. Ms. Torres has an appointment with Dr. Rodriguez on 09/26. I instructed Ms. Torres and her nursing staff to continue daily dressing changes and that they can pack the opening with gauze if there is continual leaking. documented in this encounter Plan of Treatment [...]
--- OUTSIDE RECORDS SUMMARY | 2020-11-03 21:49 | XMS REPORT | Encounter Summary ---
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
--- OUTSIDE RECORDS SUMMARY | 2020-11-03 21:49 | XMS REPORT | Encounter Summary ---
Author Author [facility] Organization [facility] Address Unknown Phone Unavailable Care Team Providers Care Medical Officer Name Role Phone Geraldo Mcknight MD PCP Dale Leal DO 21 Unavailable Reason for Visit * Auth/Cert Referred By Contact Referred To Contact Status Reason Specialty Diagnoses / Procedures Diagnoses Colovesical fistula Colovesical fistula [N32.1] P rocedures SD CSTC COMPL W/URTROILEAL CONDUIT/BLDR W/INT ANAST SD EXPLORATORY LAPAROTOMY CELIOTOMY W/WO BIOPSY SPX SD RPR RECRT INCAL/VNT HERNIA REDUCIBLE SD COLECTOMY PRTL W/COLOPROCTOSTOMY & COLOSTOMY SD COLECTOMY PRTL W/COLOPROCTOSTOMY & COLOSTOMY CYSTECTOMY - COMPLETE WITH URETEROILEAL CONDUIT/ SIGMOID BLADDER INCLUDING INTESTINAL ANASTOMOSIS EXPLORATORY LAPAROTOMY WITH/ WITHOUT BIOPSY REPAIR INCISIONAL/ VENTRAL HERNIA - REDUCIBLE - RECURRENT COLECTOMY WITH COLOPROCTOSTOMY AND COLOSTOMY - PARTIAL COLECTOMY WITH COLOPROCTOSTOMY AND COLOSTOMY - PARTIAL Encounter Details Care Team Description [place] [address] [place], [place] [id number] Bran Martell DO [address] [place] [address] Colovesical fistula 09/04/2020 Hospital Patient Care Unit H C8: - [facility]counter [facility] 09/21/2020 Care [address] [facility] [place] [address] Social History Date Tobacco Use [...] Signs Reading Time Taken Comments Vital Sign 114/48 09/21/2020 11:51 AM CDT Blood Pressure 81 09/21/2020 1:14 PM CDT Pulse 37.3 C (99.2 F) 09/21/2020 11:51 AM CDT Temperature - - Respiratory Rate 95% 09/21/2020 1:14 PM CDT Oxygen Saturation - - Inhaled Oxygen Concentration 73.5 kg (162 lb) 09/11/2020 11:10 AM CDT Weight 152.4 cm (5') 09/04/2020 9:19 AM CDT Height 31.64 09/04/2020 9:19 AM CDT Body Mass Index documented in [...] as of this encounter Discharge Summaries * No Delarosa APRN-NP - 09/21/2020 3:45 PM CDT Discharge Summary Name: Carlos Alberto Torres Date Of : 1950 Age: 70 years Admit date: 09/04/2020 Discharge date: 09/21/2020 Discharge Attending: Lorena Rodriguez MD Discharge Summary Completed By: JODI Steve Service: Surgery-Urology Reason for hospitalization: Colovesical fistula [N32.1] Primary Discharge Diagnosis: Colovesical fistula Hospital Diagnoses: Hospital Problems Active Problems * (Principal) Colovesical fistula Acute blood loss anemia J LUIS (acute kidney injury) (HCC) Malnutrition (HCC) Bacteremia due to methicillin resistant Staphylococcus epidermidis Candidal urinary tract infection Ileus (HCC) Hypokalemia CLABSI (central line-associated bloodstream infection) Acute pulmonary edema (HCC) Abscess Two Pressure ulcers, unstageable on coccyx Significant Past Medical History Colovesical fistula Diverticulitis Hypertension Hypoglycemia Hypothyroid PONV (postoperative nausea and vomiting) Rectovaginal fistula Right ureteral injury Sepsis (HCC) Allergies Bactrim [sulfamethoxazole-trimethoprim] and Blue dye Brief Hospital Course The patient was admitted and the following issues were addressed during this hos pitalization: (with pertinent details including admission exam/imaging/labs). [age] y.o. Female with large colovesical/vaginal fistula s/p multiple surgeries for complications from diverticulitis now s/p ex-lap, fistula excision, partial cyst ectomy, transverse end colostomy complicated by right internal iliac vein injury . She tolerated the procedure well. She was transfused intraoperatively and on . Her hemoglobin remained stable. She developed fevers on 09/09. Blood culture s revealed Staph epidermidis, vancomycin sensitive. ID was consulted and her PIC C line was removed. She developed nausea and vomiting. A KUB revealed an ileus. A nasogastric tube was placed and an aggressive bowel regimen was implemented. A CT scan on 09/12 showed partial SBO within hernia, mildly complex fluid collecti on along anterior abdominal wall, right rectus sheath hematoma. PICC line was re placed as she had issues with IV access and needed to be restarted on TPN. On , She was rapid responded twice for worsening leukocytosis, hypotension, an d acute oxygen requirement. She was given fluid boluses. ID recommended cefepime , fluconazole, vancomycin and Flagyl. She went to IR for drain placement. Drain cultures grew Enterococcus and Pseudomonas. She was transitioned to Daptomycin o n 09/15 and Vancomycin was discontinued. Urine cultures grew Brenda glabrata that was resistant to fluconazole. She was transitioned to micafungin. She began to improve clinically. Labs remained stable. Therapy recommended prison pl acement and patient continued to need TPN at discharge. Pain was controlled, michael erated a minimal diet, had return of bowel function, HEMA drain and nephrostomy tu bes were removed after tolerating a clamp trial, and all discharge criteria were met. Jvac, PICC line were left in place at discharge. She will completed a two week course of Linezolid, micafungin, cefepime and oral vancomycin at discharge. Daptomycin was discontinued and started on linezolid due to cost for the facili ty. Items Needing Follow Up Pending items or areas that need to be addressed at follow up: Follow up on 09/26 for catheter removal with cystogram prior. ID will order a CT at two weeks to d etermine length of duration of antibiotics and Jvac. Weekly CBC w/ diff and CMP to ID for antibiotic management. Pending Labs and Follow Up Radiology Pending labs and/or radiology review at this time of discharge are listed below: if this area is blank, there are no items for review. Pending Labs Order Current Status CULTURE-FUNGAL,OTHER Preliminary result Medications Medication List START taking these medications aluminum/magnesium hydroxide 200/200 mg/5 mL Susp oral suspension; Commonly known as: MAALOX; Dose: 30 mL; Take 30 mL by mouth as Needed.; Refills: 0 cefepime (MAXIPIME) 2 g/20 mL 2 g in sodium chloride 0.9% (NS) 0.9 % 100 mL IVPB (MB+); Dose: 2 g; Administer two g through vein every 8 hours for 9 days. Stop date 09/29; Refills: 0 gabapentin 300 mg capsule; Commonly known as: NEURONTIN; Dose: 300 mg; Take one capsule by mouth twice daily.; Quantity: 90 capsule; Refills: 0 HYDROcodone/acetaminophen 5/325 mg tablet; Commonly known as: NORCO; Dose: 1-2 tablet; Take one tablet to two tablets by mouth every 6 hours as needed; Quantity: 30 tablet; Refills: 0 linezolid 600 mg tablet; Commonly known as: ZYVOX; Dose: 600 mg; Take one tablet by mouth twice daily for 9 days. Stop date 09/29; Refills: 0 micafungin (MYCAMINE) 100 mg/5 mL 100 mg in sodium chloride 0.9% (NS) 0.9 % 100 mL IVPB; Dose: 100 mg; Administer one hundred mg through vein every 24 hours for 9 days. Stop date 09/29; Refills: 0 Miscellaneous Medical Supply Misc; Colostomy supplies and accessories Dispense twenty of each for one month of supplies Dx Colovesical fistula N32.1; Quantity: 20 each; Refills: 99 naphazoline 0.025 % /pheniramine 0.3 % 0.025/0.3 % Drop; Commonly known as: NAPHCON-A; Dose: 1 drop; Apply one drop to both eyes four times daily.; Refills: 0 oxybutynin XL 15 mg tablet; Commonly known as: DITROPAN XL; Dose: 15 mg; Take one tablet by mouth daily for 5 days.; Quantity: 5 tablet; Refills: 0 senna/docusate 8.6/50 mg tablet; Commonly known as: SENOKOT-S; Dose: 1 tablet; Take one tablet by mouth twice daily.; Refills: 0 sodium chloride PF 0.9% syringe; Dose: 10 mL; Inject 10 mL to area(s) as directed twice daily. Flush Jvac twice daily; Quantity: 10 mL; Refills: 0 CHANGE how you take these medications pantoprazole DR 40 mg tablet; Commonly known as: PROTONIX; Dose: 40 mg; Take one tablet by mouth twice daily.; Quantity: 90 tablet; Refills: 1; What changed: when to take this CONTINUE taking these medications buPROPion HCL SR 150 mg tablet; Commonly known as: WELLBUTRIN SR; Dose: 150 mg; Refills: 0 hyoscyamine 0.125 mg rapid dissolve tablet; Commonly known as: ANASPAZ; Dose: 0.125 mg; Place one tablet under tongue every 4 hours as needed.; Quantity: 30 tablet; Refills: 1 levothyroxine 50 mcg tablet; Commonly known as: SYNTHROID; Dose: 50 mcg; Refills: 0 methocarbamoL 750 mg tablet; Commonly known as: ROBAXIN; Dose: 750 mg; Take one tablet by mouth twice daily.; Quantity: 15 tablet; Refills: 1 * nicotine 14 mg/day patch; Commonly known as: NICODERM CQ STEP 2; Dose: 1 patch; For: stop smoking; Refills: 0 * nicotine 7 mg/day patch; Commonly known as: NICODERM CQ STEP 3; Dose: 1 patch; For: stop smoking; Refills: 0 nicotine polacrilex 2 mg gum; Commonly known as: NICORETTE; Dose: 2 mg; Take one each by mouth every 1 hour as needed. Chew to soften and park in mouth between lip and gum. May use 1 piece per hour, not to exceed 24 per day, for 12 weeks. May be used for longer, if needed.; Quantity: 2 box; Refills: 1 ondansetron 4 mg rapid dissolve tablet; Commonly known as: ZOFRAN ODT; Dose: 4 mg; Refills: 0 other medication; Total Parenteral Nutrition.; Quantity: ; Refills: 0 polyethylene glycol 3350 17 g packet; Commonly known as: MIRALAX; Dose: 17 g; Take one packet by mouth twice daily as needed.; Quantity: 12 each; Refills: 3 scopolamine 1mg over 3 days 3 day patch; Commonly known as: TRANSDERM-SCOP; Dose: 1 patch; Refills: 0 simethicone 80 mg chew tablet; Commonly known as: MYLICON; Dose: 80 mg; Chew one tablet by mouth every 6 hours as needed for Flatulence.; Quantity: 30 tablet; Refills: 1 TylenoL 325 mg capsule; Generic drug: acetaminophen; Dose: 325 mg; Refills: 0 vancomycin 25 mg/mL oral solution; Commonly known as: FIRVANQ; Dose: 125 mg; Take 5 mL by mouth twice daily. Continue while on antibiotics; Refills: 0 vitamin A & D Oint; Apply topically to affected area as Needed.; Quantity: 113 g; Refills: 0 XYZAL 5 mg Tab; Generic drug: levocetirizine; Dose: 1 tablet; Refills: 0 * This list has 2 medication(s) that are the same as other medications prescribed for you. Read the directions carefully, and ask your doctor or other care provider to review them with you. STOP taking these medications cefTRIAXone 2 g Solr; Commonly known as: ROCEPHIN dicyclomine 10 mg capsule; Commonly known as: BENTYL fluconazole 200 mg tablet; Commonly known as: DIFLUCAN furosemide 40 mg tablet; Commonly known as: LASIX metroNIDAZOLE 500 mg tablet; Commonly known as: FLAGYL oxyCODONE 5 mg tablet; Commonly known as: ROXICODONE trospium XR 60 mg capsule; Commonly known as: SANCTURA XR Return Appointments and Scheduled Appointments Scheduled appointments: Sep 26, 2020 11:00 AM (Arrive by 10:45 AM) Post - Op with JODI Abraham Oncology: [facility] ([facility] Exam) [address] [facility] [id number] Sep 26, 2020 2:30 PM CYSTOGRAM W/FLUOROSCOPY with GENERAL RAD 2315 Imaging: [facility] (Radiology) [address] [facility] [address] Sep 26, 2020 3:45 PM (Arrive by 3:30 PM) Post - Op with Lorena Rodriguez MD Oncology: [place], [facility] ([facility] Exam) [address] [facility] [address] Oct 20, 2020 11:00 AM PRO 30 with Lorena Rodriguez MD, UROLOGY PROCEDURE RM 1 Urology: [facility] (Urology) [address] [facility] [address] Consults, Procedures, Diagnostics, Micro, Pathology Consults: ID Surgical Procedures & Dates: 09/04/2020 Partial cystectomy, Complex cystorrhaphy, Left ureteral stent placement, Excision of foreign body/infected mesh, Exploratory laparotomy, Low anterior resection, Mobilization of splenic flexure, Lysis of adhesions lasting longer than 2 hours Significant Diagnostic Studies, Micro and Procedures: noted in brief hospital co urse Significant Pathology: 09/04/2020 A. Colon, "rectum", resection: Focal foreign body giant cell reaction. B. Colon, "descending colon", resection: Diverticulum. C. Colon, "transverse colon", resection: Diverticula and focal serositis. D. Mesh, removal: See gross description. Nutrition: Project Management Director consult completed. Discharge Disposition, Condition Patient Disposition: Retirement Facility Condition at Discharge: Stable Code Status Code Status History Date Active Date Inactive Code Status Order ID 09/04/2020 [id number] 09/21/2020 1750 Full Code [id number] Mohit Dacosta MD Inpatient 06/28/2020219907/19/20202051 Full Code [id number] Vaibhav Bradley, Inp atient Patient Instructions Regular Diet You have no dietary restriction. Please continue with a healthy balanced diet. General Supplement Supplement: Boost, [place] Instant Breakfast or Ensure Amount: 1 serving How often: 2-3 times per day in between meals Report These Signs and Symptoms Please notify physician if experiencing any chest pain, shortness of breath, ca lf tenderness or unilateral leg swelling, uncontrolled pain, incision redness or foul smelling drainage from wound, fevers >101.5, or any other worsening signs/symptoms. Questions About Your Stay For questions or concerns regarding your hospital stay. Call [phone] You may have questions about your hospital stay after you get home. From 8 AM to 4 PM Friday through Friday, please call . If calling after hours or with urgent questions, please call and ask for the urology resident source water protection specialist. In case of an emergency, please report to your nearest emergency department and contact us on the way. Discharging attending physician: LORENA RODRIGUEZ [[id number]] Driving Restrictions No driving while taking pain medication and until physician approval at follow- up appointment. Strenuous Activity Restrictions Please refrain from strenuous activity for 6 week(s). No lifting more than 10 p ounds for 6 weeks. Other Activity Restrictions Wear abdominal binder Incision Care *Keep your incision clean and dry. *Shower daily. Wash your incisions with soap and water. *Do not submerge incision in tub, pool, hot tub, or wallace for 4 weeks. *Usually there are not stitches to be removed. Steri-strips (strips of tape) dustin l begin to fall off in 10-14 days. If they remain after 2 weeks, gently remove t hem when they are damp after a shower. *Your incision should gradually look better each day. If you notice unusual swel ling, redness, drainage, have increasing pain at the site, or have a fever great er than 100 degrees, notify your physician immediately. Wound Care Keep wound clean and dry. Do not submerge under water. Apply A&D TID and PRN to coccyx wound- NO FOAM - Leave wound on left buttocks clean, dry and intact. - Avoid briefs if possible; use only one disposable pad underneath pt. - Implement q2 hr turning schedule using foam wedge for support. - HOB less than or equal to 30 degrees unless contraindicated (to prevent sheari ng at coccyx/sacrum) - foam offloading pad while in the chair - envision mattress - Place foam offloading boots to bilateral lower extremities; heel should "float " off of support built into boot. Urinary/Suprapubic Catheter Care General Urinary Catheter Care: [...] Ostomy Care General Ostomy Care General Ostomy Usp care instructions: *Empty bag when it is 1/3 full. *Change ostomy bag every 3-4 days or if it starts leaking. *When changing ostomy bag cleanse skin with water only. *Order ostomy supplies ahead of time so you don't run out. For more information visit the [employer] [place] website at www.ostomy.org. J-Vac Drain Care - Keep a drain log. Flush twice daily. Home care instructions: *WASH HANDS PRIOR TO ANY [...] loss of suction), please call your doctor. PICC Line Usp Care Instructions: *Catheter must be covered with [...] for dressing or cap change i nstructions. Return Appointment You will need to go to Radiology in the main hospital room 2315 to have a scan at 2:30. You will then see at the [place] location at 3:45. [facility] Provider LORENA RODRIGUEZ [[id number]] Appointment date: 09/26/2020 Opioid (Narcotic) Safety Information OPIOID (NARCOTIC) PAIN [...] Complete if patient is going to a Retirement Facility PT/OT to evaluate and treat Ostomy teaching with goal of independence by discharge. Routine salomon catheter care. Will be discontinued on 09/26. TPN until able to take adequate oral intake. Non-standard PN: 75ml/hr - 1800ml total volume Macronutrients: AA 90gm, Dex 230 gm, Lipids 245 ml Lytes: Na 183 mEq, K 80 mEq, Ca 10 mEq, Mg 16 mEq, Phos 20 mmol, 1:1 Cl:Acetate Additives: Standard MV and trace elements, 100 mg thiamine, 5mg zinc, 300 mg vit ashraf C Provides: 1632 kcals (28 kcals/kg; 100% estimated needs), 90 gm AA (100% estimat ed needs) Provide boost, ensure or carnation instant breakfast in between meals. Routine jvac care. Flush twice daily with NS 10 mL. Drain log needs to be kept a nd sent to patient appointments. Routine PICC line care. Patient will be on Cefepime, micafungin, and linezolid u ntil 09/29. Infectious Disease physician Dr. India Hassan will be managing this. S he will arrange a CT scan to determine if this will need to continue at that jed e. Please obtain a CBC, CMP and fax to [phone]. I certify that the patient requires skilled care Yes The patient's stay is expected to be less than 30 days Yes I will be in charge of patient in [facility] No Additional Orders: Case Management, Supplies, Home Health Home Health/DME None Signed: JODI Steve 09/25/2020 cc: Primary Care Physician: Geraldo Mcknight Verified Referring physicians: Geraldo Mcknight MD Additional provider(s): Did we miss something? If additional records are needed, please fax a request on office letterhead to [phone]. Please include the patient's name, date of b irth, fax number and type of information needed. Additional request can be made by email at [email or web address]. For general questions of information about electronic records sharing, call [phone]. documented in this encounter Discharge Instructions * Patient Instructions* Peña Perez RN - 09/13/2020 4:14 PM CDT Images from the original note [...] concerns related to the procedu re,call the [facility] location at for Friday-Friday 7-5. After-hours and weekends, please [phone] and ask for the Interventional Rewards Consultant on-call. You oryour caregiver should call 911 for any severe bleeding,dizziness, shor tness of breath or loss of consciousness. Drainage Date Time Amount documented in this encounter Medications at Time of Discharge Start Date End Date Medication Sig Dispensed Refills 10/03/2020 acetaminophen (TYLENOL) Take 325 mg 0 [...] capsule by mouth twice daily. 09/20/2020 10/03/2020 HYDROcodone/acetaminophen Take one 30 tablet 0 (NORCO) 5/325 mg tablet tablet to two tablets by mouth every 6 hours as needed 07/18/2020 10/03/2020 hyoscyamine (ANASPAZ) Place one 30 tablet 1 0.125 mg rapid dissolve tablet under tablet tongue every 4 hours as needed. 10/03/2020 levocetirizine (XYZAL) 5 Take 1 tablet 0 mg tab by mouth daily as needed. 02/14/2020 10/03/2020 levothyroxine (SYNTHROID) Take 50 mcg 0 50 mcg tablet by mouth daily. 09/20/2020 10/03/2020 linezolid (ZYVOX) 600 mg Take one 0 tablet tablet by mouth twice daily for 9 days. Stop date 09/2907/18/2020 10/03/2020 methocarbamoL (ROBAXIN) Take one 15 tablet 1 750 mg tablet tablet by mouth twice daily. 09/20/2020 10/03/2020 micafungin (MYCAMINE) 100 Administer 0 mg/5 mL 100 mg in sodium one hundred chloride 0.9% (NS) 0.9 % mg through 100 mL IVPB vein every 24 hours for 9 days. Stop date 09/2909/20/2020 10/03/2020 Miscellaneous Medical Colostomy 20 each [facility] supplies and accessories Dispense twenty of each [...] 10/03/2020 other medication Total 0 Parenteral Nutrition. 09/21/2020 10/03/2020 oxybutynin XL (DITROPAN Take one [...] directed twice daily. Flush Jvac twice daily 07/19/2020 10/03/2020 vancomycin (FIRVANQ) 25 Take 5 mL by 0 mg/mL oral solution mouth twice daily. Continue while on antibiotics 07/18/2020 10/03/2020 vitamin A & D oint Apply 113 g 0 topically to affected area as Needed. documented as of this encounter Ordered Prescriptions Start Date End Date Prescription Sig Dispensed Refills 09/20/2020 10/03/2020 Miscellaneous Medical Colostomy 20 each [facility] supplies and accessories Dispense twenty of each for one month of supplies Dx Colovesical fistula N32.1 09/20/2020 10/03/2020 linezolid (ZYVOX) 600 mg Take one 0 tablet tablet by mouth twice daily for 9 days. Stop date 09/2909/20/2020 10/03/2020 sodium chloride PF 0.9% Inject 10 mL 10 mL 0 syringe to area(s) as directed twice daily. Flush Jvac twice daily 09/20/2020 10/03/2020 senna/docusate Take one 0 (SENOKOT-S) 8.6/50 mg tablet by tablet mouth twice daily. 09/20/2020 10/03/[address] Take one 90 tablet 1 (PROTONIX) 40 mg tablet tablet by mouth twice daily. 09/21/2020 10/03/2020 oxybutynin XL (DITROPAN Take one 5 tablet 0 XL) 15 mg tablet tablet by mouth daily for 5 days. 09/20/2020 10/03/2020 naphazoline 0.025 % Apply one 0 /pheniramine 0.3 % drop to both (NAPHCON-A) 0.025/0.3 % eyes four drop times daily. 09/20/2020 10/03/2020 micafungin (MYCAMINE) 100 Administer 0 mg/5 mL 100 mg in sodium one hundred chloride 0.9% (NS) 0.9 % mg through 100 mL IVPB vein every 24 hours for 9 days. Stop date 09/2909/20/2020 10/03/2020 HYDROcodone/acetaminophen Take one 30 tablet 0 (NORCO) 5/325 mg tablet tablet to two tablets by mouth every 6 hours as needed 09/20/2020 10/03/2020 gabapentin (NEURONTIN) Take one 90 capsule 0 300 mg capsule capsule by mouth twice daily. 09/20/2020 10/03/2020 cefepime (MAXIPIME) 2 Administer 0 g/20 mL 2 g in sodium two g through chloride 0.9% (NS) 0.9 % vein every 8 100 mL IVPB (MB+) hours for 9 days. Stop date 09/2909/20/2020 10/03/2020 aluminum/magnesium Take 30 mL by 0 hydroxide (MAALOX) mouth as 200/200 mg/5 mL susp oral Needed. suspension documented in this encounter Discharge Disposition Code Departure Means Destination Disposition Car Retirement Facility documented in this encounter Progress Notes * Jane Patel, KOBI - 09/21/2020 3:45 PM CDT Carlos Alberto Torres discharged on 09/21/2020. . Discharge instructions reviewed with patient. Valuables returned: Personal Items / Valuables: Cell Phone, Clothing, Eyeglasses/Contacts(readers- T PN machine) Where Are Valuables Stored?: in inpatient room. Home medications: . Functional assessment at discharge complete: Yes . PICC line left in place for outpatient TPN and ABX. All belongings with patient. Report called to [place] [facility] [place]. * India Hassan MD - 09/21/2020 8:33 AM CDT Infectious Diseases Progress Note Today's Date: 09/21/2020 Admission Date: 09/04/2020 Reason for this consultation: complex patient has seen ID. Currently on rocephin , flagyl, fluconazole, and PO vanc for recurrent UTIs d/t colovesical fistula. H ad colovesical fistula takedown with partial cystectomy 09/04. Seeking recs on en d dates for abx or any need to change abx Type of Consultation: Co-Management w/Signed Orders Assessment: Carlos Alberto Torres is a 70 y.o. female with a medical history of diverticuliti s in 2011 leading to surgical history for and due to recurrent fistulization, mo st recently colovaginal and coloureteral/vesical. She has had recurrent UTI's du e to feculent urine and has been on and off several antibiotics over the past se veral years and especially since Dec, 2019. She has bilateral nephrostomy tubes in place following severe infection in June with VRE, Bacteroides, Brenda glab rata and Brenda parapsilosis on cultures. She received 14 days of daptomycin, m icafungin, metronidazole and a cephalosporin and was then transitioned to IV cef triaxone, metronidazole, fluconazole 200 mg daily until definitive surgery due t o high risk for severe infection. She had a first occurrence of C. Diff in June and has been on ppx PO vancomycin following treatment course. She was admitted 09/04 following colovesical fistula takedown, partial cystectomy, infected mesh e xcision and colectomy with colostomy creation. NGT placed on 09/07 d/t ileus and hospitalization has since been complicated by fever 25 AM and increasing O2 re quirement but appeared to be more volume overload on CXR. BCx from time of fever positive for MRSE from PICC BCx so removed PICC and treating for CLABSI w/ vanc omycin for 7d. Stopped other antimicrobials 09/11, but patient w/ rising WBC 09/[address] abd/pelv demonstrated fluid collection along anterior abdominal wall joana und incision site, s/p IR drain placement 09/13 w/ E. Faecium, Pseudomonas aerugi nosa and Brenda glabrata growing from abscess cx. Anticipate continuing on dapt o/cefepime/metronidazole/micafungin for ~2w or until fluid collection resolved m inus flagyl which was stopped mid-way on 09/20 2/2 nausea) ID Problem List 1. 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 Sepsis - 2/2 MRSE CLABSI 09/08, now w/ suspected postop wound infection/fluid collection on CT 09/12 3. Intraabdominal abscess at surgical site - E. Faecium (S dapt, Lz, R vanc), P. Aeruginosa (S becky remi 1, cefe remi 8, intrmed p/tazo) C. glabrata 4. MRSE CLABSI - on 09/08 BCx, PICC removed 09/09 5. Colostomy creation 09/04 6. Salomon catheter placed 09/04 7. Recent polymicrobial pyelonephritis - C. Glabrata, C. Parapsilosis, VRE, Bact eroides, Eggerthella w/ Intra-abdominal abscess 8. 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 B/L nephrostomy tubes placed in June, 10. Recent C. Diff colitis on PO Vanc BID 11. Poor PO intake on TPN -improving 12. Ileus (09/07) -resolved 13. Antibiotic allergies: Bactrim- Hives Recommendations: 1. Continue daptomycin 10mg/kg q24h (VRE abdominal wall possible abscess vs rect us sheath hematoma seeded) --> upon dc to SNF transition to PO linezolid 600 bid 2. Continue IV cefepime 2g q8h (PSAE abdominal wall possible abscess) 3. Continue IV micafungin 100mg daily (C. Glabrata, fluconazole-resistant) 4. Continue PO vancomycin BID (C.diff prophylaxis, recent infection) 5. Plan for 2 weeks (tentative end = 09/29 vs 10/02) pending repeat CT abd/pelvis to determine extension vs abx cessation 6. Weekly cbc, cmp, cpk faxed to [phone] 7. Will arrange ID f/u after discharge D/w primary team and CM India Hassan MD Division of Infectious Diseases Pager [phone] Interval Hx/Subjective Afebrile, VSS remains on RA Cr 0.73 (09/21), LFT wnl (09/20), CPK 24 (09/15) Awaiting [facility] pending insurance --> going today Denies fevers or chills Abdominal pain improving Nausea improved Appetite improving, tolerated diet advancement past few days No diarrhea via colostomy No rash or itching Antimicrobial Start date End date Fluconazole 07/14-09/11; 09/13 09/14 Cefepime 07/11 07/14 Cefpodoxime 07/05 07/11 Flagyl 07/03-09/11; 09/13 09/20 Daptomycin 07/05 -07/14; 09/15 Active Micafungin 07/03-07/14; 09/14 Active PO Vancomycin 07/05 Active Ceftriaxone 07/03-07/05; 07/14 09/11 Meropenem 06/28 07/03 Linezolid 06/28 07/05 IV Vancomycin 06/28; 09/09 09/15 Azithromycin Unknown, ~06/22 06/26 Ciprofloxacin 06/20 ~06/22 Cefepime 09/13 active Estimated Creatinine Clearance: 66 mL/min (based on SCr of 0.73 mg/dL). Medications Scheduled Meds:buPROPion XL (WELLBUTRIN XL) tablet 150 mg, 150 mg, Oral, QDAY cefepime (MAXIPIME) 2 g in sodium chloride 0.9% (NS) 100 mL IVPB (MB+), 2 g, Int ravenous, Q8H* cetirizine (ZyrTEC) tablet 10 mg, 10 mg, Oral, QDAY COVID-19 vacc,mRNA (MODERNA) PF immunization 100 mcg, 100 mcg, Intramuscular, New Car Inspector DAPTOmycin (CUBICIN) injection 550 mg, 10 mg/kg (Adjusted), Intravenous, Q24H* enoxaparin (LOVENOX) syringe 40 mg, 40 mg, Subcutaneous, QDAY(21) gabapentin (NEURONTIN) capsule 300 mg, 300 mg, Oral, BID levothyroxine (SYNTHROID) tablet 50 mcg, 50 mcg, Oral, QDAY methocarbamoL (ROBAXIN) tablet 750 mg, 750 mg, Oral, TID micafungin (MYCAMINE) 100 mg in sodium chloride 0.9% (NS) 100 mL IVPB (MB+), 100 mg, Intravenous, Q24H* naphazoline 0.025 % /pheniramine 0.3 % (NAPHCON-A) ophthalmic solution 1 drop, 1 drop, Both Eyes, QID nicotine (NICODERM CQ STEP 2) 14 mg/day patch 1 patch, 1 patch, Transdermal, Q24 H* oxybutynin XL (DITROPAN XL) tablet 15 mg, 15 mg, Oral, QDAY pantoprazole DR (PROTONIX) tablet 40 mg, 40 mg, Oral, QDAY scopolamine (TRANSDERM-SCOP) 1mg over 3 days patch 1 patch, 1 patch, Transdermal , Q72H* And Patch Documentation - Scopolamine base 1MG/72HR 1 patch, 1 patch, Transdermal, B ID polyethylene glycol 3350 (MIRALAX) packet 17 g, 1 packet, Oral, BID senna/docusate (SENOKOT-S) tablet 1 tablet, 1 tablet, Oral, BID sodium chloride PF 0.9% flush 10 mL, 10 mL, Flush, FLUSH TID sodium chloride PF 0.9% syringe 10 mL, 10 mL, Intravenous, BID vancomycin (FIRVANQ) oral solution 125 mg, 125 mg, Oral, BID Continuous Infusions: Adult Continuous Parenteral Nutrition (PN) 75 mL/hr at 09/20/20 2020 PRN and Respiratory Meds:acetaminophen Q6H PRN, aluminum/magnesium hydroxide PRN , HYDROcodone/acetaminophen Q6H PRN, hyoscyamine Q4H PRN, lidocaine PF PRN, jayce tonin QHS PRN, nalOXone PRN, nicotine polacrilex Q1H PRN, [DISCONTINUED] ondanse hilary Q6H PRN OR ondansetron (ZOFRAN) IV Q6H PRN, phenoL PRN, prochlorperazin e Q6H PRN, simethicone Q6H PRN Physical Examination Vital Signs: Most Recent Vital Signs: 24 H our Range BP: 141/55 (09/22 755) Temp: 36.9 C (98.4 F) (09/22 755) Pulse: 79 (09/22 755) Respirations: 16 PER MINUTE (09/22 755) SpO2: 95 % (09/22 755) BP: (101-141)/(44-61) Temp: [36.2 C (97.1 F)-37.2 C (98.9 F)] Pulse: [78-100] Respirations: [16 PER MINUTE-18 PER MINUTE] SpO2: [92 %-95 %] Gen: Alert, oriented x 3, appears fatigued, elderly female, in NAD HENT: NC/AT, MMM, no thrush Eyes: conj not injected Lungs: diminished BS in bases, no rhonchi, nonlabored Heart: RRR, no murmur Abd: RLQ colostomy semiformed stools in bag, midline incision bandage dry, not u ndressed, no adjacent erythema/induration, LLQ HEMA drain serosanginous fluid, bin edson in place Ext: no edema Skin: no rash Lines: RUE PICC (09/12) -site unremarkable Drains/tubes: B/L nephrostomy tubes with clear yellow urine salomon (09/04) LLQ HEMA drain (09/04) Jvac mid-abdomen (09/12) RLQ colostomy Lab Review Hematology No results for input(s): WBC, HGB, HCT, PLTCT, PTT, INR in the last 72 hours. Chemistry Recent Labs 09/19/20 1220 09/20/20 0440 09/21/20 0434 NA 136* 137 138 K 4.5 4.5 4.2 CL 106 106 104 CO2 25 24 23 BUN 20 21 23 CR 0.67 0.73 0.73 GFR >60 >60 >60 GLU 101* 100 95 CA 7.9* 8.5 8.6 PO4 3.7 4.2 3.8 ALBUMIN -- 2.5* -- ALKPHOS -- 88 -- AST -- 25 -- ALT -- 19 -- TOTBILI -- 0.5 -- Microbiology, Radiology and other Diagnostics Review Microbiology: 09/08 BCx x2 w/ 1/2 MRSE (positive from PICC, peripheral negative) 09/10 BCx x2 NGTD 09/13 abscess cx w/ E. Faecium, Pseudomonas aeruginosa, C. glabrata; g/s w/ rare PMNs, moderate GPC resembling strep Microbiology data reviewed Radiology: 09/08 CXR 1. Placement of gastric tube as described. 2. Small left greater than right pleural effusions with bibasilar left greater than right opacities, which may represent atelectasis and/or pneumonia. 3. Mild diffuse bilateral interstitial opacities, likely representing pulmonary edema. 09/12 CT chest/abd/pelv CHEST: 1. Bilateral lower lobe dependent consolidations and air bronchograms likely atelectasis rather than pneumonia. Trace amount of dependent pleural fluid. 2. Coronary artery disease. 3. Mild emphysema. 4. A few tiny pulmonary nodules are noted which are likely benign. However given the [...] gas. 2. Development of a mixed density mildly complex fluid collection along the anterior abdominal [...] mildly dilated gallbladder. Pericholecystic fluid is likely secondary [...] on short interval follow-up imaging is suggested. Pertinent radiology images viewed. * Faisal Solis MD - 09/21/2020 5:50 AM CDT Urology Progress Note 09/21/2020 ASSESSMENT: Carlos Alberto Torres is a 70 y.o. Female with large colovesical/vaginal fistula s/p multiple surgeries for complications from diverticulitis now s/p ex-lap, fis harlan excision, partial cystectomy, transverse end colostomy complicated by right internal iliac vein injury LOS: 17 days ACTIVE PROBLEMS: Principal Problem: Colovesical fistula Active Problems: Acute blood loss anemia J LUIS (acute kidney injury) (HCC) Malnutrition (HCC) Bacteremia due to methicillin resistant Staphylococcus epidermidis Candidal urinary tract infection Ileus (HCC) Hypokalemia CLABSI (central line-associated bloodstream infection) Acute pulmonary edema (HCC) Abscess Bacteremia not present on admission PLAN: will discuss plan with staff surgeon - Dr. Cr - Pain control: PO with IV - Card/Resp: CXR 09/08 demonstrated pulmonary edema. - Diet/FEN: Reg diet > NGT Removed on rounds 09/09. > TPN resumed on 09/14 > Minimal colostomy output associated with vomiting 09/16, improved 09/19 - GI: bowel regimen, zofran prn - : Salomon catheter with antispasmodics in place. Right and Left NT in place. > NT tubes removed 09/20 - Renal: Cr 0.73 (0.73); Replete lytes prn - Heme/ID: Oral Vanc. > ID consulted, appreciate recs > 2u pRBC intraop > 2u pRBC 09/06. > 09/08 PICC line blood culture: Staph epidermidis, susceptible to vanc > 09/08 left arm blood cultures: ngtd x5 > Remove PICC Line 09/09 > CT obtained 09/12 - partial SBO within hernia, mildly complex fluid collection along anterior abdominal wall, right rectus sheath hematoma. >09/13 Rapid Responded 2x w/ worsening leukocytosis, broadened to cefepime, fluconazole, vanc and flagy > 09/13 Fluid abscess culture: Enterococcus pseudomonas > 09/15 transitioned to dapto, IV Vanc D/C'd > Current abx per ID: dapto, micafungin, cefepime, flagyl, PO vanc -Transition Dapto to Linezolid upon discharge due to SNF preference, OK w/ ID -Cont abx and anti-fungal for ~2weeks w/ a repeat CT scan - PICC placed 09/12 for access - CANDLE MOLDER: bupropion, synthroid - Nicoderm patch and gum - OOB/Amb - Doctor Of Optometry consult placed due to emotional distress - Dispo: D/C today to SNF > COVID test negative, 09/19 > Remove HEMA prior to D/C > D/C w/ J-Vac to drainage Prophylaxis Review: - DVT: SCD's, Lovenox - Catheter: Yes - Abx: Yes Faisal Solis MD PGY-2 Urology Please page urology source water protection specialist with questions SUBJECTIVE: No acute events overnight. Pain well controlled. Pt tolerating regular diet with mild nausea. She has ostomy output. Has ambulated with PT. Denies flank pain. OBJECTIVE: Vital Signs: Most Recent Vital Signs: Past 24 Ho urs BP: 134/61 (09/22 423) Temp: 37.2 C (98.9 F) (09/22 423) Pulse: 87 (09/22 423) Respirations: 18 PER MINUTE (09/22 423) SpO2: 94 % (09/22 423) BP: (101-134)/(44-63) Temp: [36.2 C (97.1 F)-37.2 C (98.9 F)] Pulse: [76-100] Respirations: [17 PER MINUTE-18 PER MINUTE] SpO2: [92 %-94 %] General: Alert & oriented, no acute distress Pulm: non-labored on room-air CV: Regular rate, no JVD present Abd: Soft, appropriately tender, distention improved, LLQ j-vac on suction drain ing SS Incisions/Wounds: Appropriately tender to palpation. Midline incision stapled. J P SS. Colostomy with stool in pouch Extremities: No edema, SCD's in place : Salomon catheter in place draining clear yellow urine. Labs: Hematology Chemistry No results for input(s): WBC, HGB, PLTCT, PTT, INR in the last 72 hours. Recent Labs 09/21/20 0434 NA 138 K 4.2 CL 104 CO2 23 BUN 23 CR 0.73 GFR >60 GLU 95 CA 8.6 PO4 3.8 Intake/Output: Date 09/20/20700 - 09/21/20 0709/21/20700 - 09/22/20 07 Shift 1373-3442 9234-6539 24 Hour Total 7390-7626 8850-0535 24 Hour Total INTAKE P.O. 238 045 2471 Other 10 10 Shift Total(mL/kg) 960(13.1) 490(6.7) 1450(19.7) OUTPUT Urine(mL/kg/hr) 1625(1.8) 400 202 Urine 0 0 Urine Output (ml) (Indwelling Urinary Catheter 09/04/20 ) 2505 044 1071 Urine Output (ml) ([REMOVED] NEPHROSTOMY TUBE 06/29/20 0828 Flank, Right Lower Lateral 8 FR) 0 0 Urine Output (ml) ([REMOVED] NEPHROSTOMY TUBE 06/29/20 0828 Flank, Left Lower Lateral 8 FR) 0 0 Drains 616 896 6477 Drain Output (ml) (J-Vac Drain 09/13/20 1710 Left;Mid Abdomen #2) 581 367 2749 Drain Output (ml) (Colostomy 09/04/20 1419 Upper Right Quadrant) 50 0 50 Drain Output (ml) (Giovanni Santoro Drain 09/04/20 1419 Anterior Abdomen #1) 10 0 10 Shift Total(mL/kg) 2085(28.4) 1320(18) 3405(46.3) [facility] -1125 -830 -1955 Weight (kg) 73.5 73.5 73.5 73.5 73.5 73.5 Stool Occurrence: 0 Malnutrition Details: * Clara Shrestha - 09/20/2020 3:49 PM CDT PHYSICAL THERAPY NOTE Name: Carlos Alberto Torres : 1950 Age: 70 y.o. Admission Date: 09/04/2020 LOS: 16 days 1430: Patient attempted for PT; just returned back to bed with OT in room. Discu ssed plan on returning back in 1hour with patient agreeable. 1520: MD present at bed side for extended period of time. Physical therapy will continue to follow and provide intervention as indicated. Therapist: Clara Shrestha Date: 09/20/2020 * Argenis Ward RN - 09/20/2020 3:30 PM CDT Images from the original note were not included. Wound Ostomy Note NAME:Carlos Alberto Torres :1950 AGE: 70 y.o. ADMISSION DATE: 09/04/2020 DAYS ADMITTED: LOS: 16 days Reason for Consult/Visit: pressure injury Stage II or greater Assessment/Plan: Principal Problem: Colovesical fistula Active Problems: Acute blood loss anemia J LUIS (acute kidney injury) ([facility]) Malnutrition (HCC) Bacteremia due to methicillin resistant Staphylococcus epidermidis Candidal urinary tract infection Ileus ([facility]) Hypokalemia CLABSI (central line-associated bloodstream infection) Acute pulmonary edema ([facility]) Abscess Wound team continuing to follow for pressure injury to coccyx and buttocks. Woun d appear to be progressing as expected. Wound on coccyx is now a stage 3 and the wound on patients left buttocks is no unstageable. Continue with current treatm ent plan. PLAN: -Apply A&D TID and PRN to coccyx wound- NO FOAM - Leave wound on left buttocks clean, dry and intact. - Avoid briefs if possible; use only one disposable pad underneath pt. - Implement q2 hr turning schedule using foam wedge for support. - HOB less than or equal to 30 degrees unless contraindicated (to prevent sheari ng at coccyx/sacrum) - foam offloading pad while in the chair - envision mattress - Place foam offloading boots to bilateral lower extremities; heel should "float " off of support built into boot. Wounds 09/12/20 0908 Pressure Injury Coccyx (Active) 09/12/20 0908 Coccyx Wound Type: Pressure Injury Pressure Injury Stages: Stage 3 Pressure Injury Present On Inpatient Admission: N Wound/Pressure Injury Orientation: Wound Description (Comments): Wound Type:: Wound Image 09/20/20 1500 Agree With My Assessment? 09/20/20 1100 Wound Dressing Status Open to air 09/20/20 1500 Wound Dressing and / or Treatment A & D Ointment 09/20/20 1500 Wound Drainage Amount None 09/20/20 1500 Wound Base Assessment Becenti;Moist;Yellow;Slough 09/20/20 1500 Surrounding Skin Assessment Dry;Intact 09/20/20 1500 Wound Site Closure None;Open to Air 09/20/20 1500 Wound Status (Wound Team Only) Being Treated 09/20/20 1500 Wound Length (cm) 4 cm 09/13/20 1100 Wound Width (cm) 4 cm 09/13/20 1100 Wound Depth (cm) 0.2 cm 09/13/20 1100 Wound Surface Area (cm^2) 16 cm^2 09/13/20 1100 Wound Volume (cm^3) 3.2 cm^3 09/13/20 1100 Number of days: 8 Wounds 09/12/20 0908 Pressure Injury Left Buttocks (Active) 09/12/20 0908 Buttocks Wound Type: Pressure Injury Pressure Injury Stages: Deep Tissue Pressure Injury Pressure Injury Present On Inpatient Admission: N Wound/Pressure Injury Orientation: Left Wound Description (Comments): Wound Type:: Wound Image 09/13/20 1100 Agree With My Assessment? 09/20/20 1100 Wound Dressing Status Open to air 09/20/20 1500 Wound Dressing and / or Treatment A & D Ointment 09/20/20 1500 Wound Drainage Amount None 09/20/20 1500 Wound Base Assessment Yellow;Slough;Dry 09/20/20 1500 Surrounding Skin Assessment Dry;Intact 09/20/20 1500 Wound Site Closure None 09/20/20 0830 Wound Status (Wound Team Only) Being Treated 09/20/20 1500 Wound Length (cm) 4 cm 09/13/20 1100 Wound Width (cm) 2.8 cm 09/13/20 1100 Wound Depth (cm) 0 cm 09/13/20 1100 Wound Surface Area (cm^2) 11.2 cm^2 09/13/20 1100 Wound Volume (cm^3) 0 cm^3 09/13/20 1100 Number of days: 8 JACINTO Wilson, RN, TCRN Wound/Ostomy Nursing Consult Service Available via [facility] [employer] or [facility] [employer] -[phone] After hours please contact wound/engraver lettering "call out clerk" via [employer] * Soren Hart, OT - 09/20/2020 1:59 PM CDT OCCUPATIONAL THERAPY PROGRESS NOTE Name: Carlos Alberto Torres : 1950 Age: 70 y.o. Admission Date: 09/04/2020 LOS: 16 days Mobility Progressive Mobility Level: Walk in room Distance Walked (feet): 25 ft(+10) Level of Assistance: Assist X1 Assistive Device: Walker Time Tolerated: 11-30 minutes Activity Limited By: Fatigue;Weakness Subjective Pertinent Dx per Physician: 70 y.o. Female with large colovesical/vaginal fistul a s/p multiple surgeris for complications from diverticulitis now s/p ex-lap, fi stula excision, partial cystectomy, transverse end colostomy complicated by righ t internal iliac vein injury Precautions: Falls Pain / Complaints: Patient agrees to participate in therapy Objective Psychosocial Status: Willing and Cooperative to Participate Persons Present: Friend Home Living Type of Home: House Home Layout: One Level Bathroom Shower / Tub: Tub/Shower Unit Prior Function Level Of [place]: Independent with ADLs and functional transfers;Independen t with homemaking w/ ambulation Lives With: Alone Other Function Comments: pt SO is currently hospitalized, daughters are supporti ve but unable to provide consistent assist ADL's Where Assessed: Standing at Sink Grooming Assist: Minimal Assist Grooming Deficits: Increased Time To Complete;Standing With Assistive Device;Sergio adying;Teeth Care;Wash/Dry Face Comment: Begins task in standing and requires seated rest break to finish at sin k. ADL Mobility Bed Mobility: Supine to Sit: Minimal assist Bed Mobility: Sit to Supine: Standby assist Transfer Type: Sit to stand Transfer: Assistance Level: From;Bed;Minimal assist Transfer: Assistive Device: Roller walker Transfer: Type of Assistance: For balance;For strength deficit Other Transfer Type: Sit to/from stand Other Transfer: Assistance Level: To/from;Bedside chair;Minimal assist Other Transfer: Assistive Device: Roller walker Other Transfer: Type of Assistance: For strength deficit End of Activity Status: In bed;Instructed patient to request assist with mobilit y;Instructed patient to use call light;Nursing notified Gait Distance: 25 feet(+10) Gait: Assistance Level: Minimal assist Gait: Assistive Device: Roller walker Gait Comments: Ambulates to sink for ADLs, seated rest break then ambulates with in the room Activity Tolerance Endurance: 2/5 Tolerates 10-20 Minutes Exercise w/Multiple Rests Comment: seated rest break following sink grooming. Pt at 97% spo2 following ac tivity on RA Cognition Overall Cognitive Status: WFL to Adequately Complete Self Care Tasks Safely Orientation: Alert & Oriented x4 Attention: Awake/Alert Assessment Assessment: Decreased ADL Status;Decreased Endurance;Decreased Self-Care Trans;D ecreased High-Level ADLs Prognosis: Good Goal Formulation: Patient AM-PAC 6 Clicks Daily Activity Inpatient Putting on and taking off regular lower body clothes?: A Lot Bathing (Including washing, rinsing, drying): A Lot Toileting, which includes using toilet, bedpan, or urinal: Total Putting on and taking off regular upper body clothing: A Little Taking care of personal grooming such as brushing teeth: None Eating meals?: None Daily Activity Raw Score: 16 Standardized (t-scale) score: 35.96 CMS 0-100% Score: 53.32 CMS G Code Modifier: CK Functional Stages Daily Activity-Score Interpretation -2.73 - 40 No Independent Tasks: Your score suggests daily tasks that require fi ne motor skills may cause considerable difficulty to the extent that you may be unable to complete them. Bathing and dressing may be so difficult that you may b e unable to complete these tasks without assistance. You may be able to feed and groom yourself but with difficulty. You may be unable to tie your shoes or butt on your shirt. Plan OT Frequency: 5x/week OT Plan for Next Visit: LB dressing, progress functional endurance ADL Goals Patient Will Perform All ADL's: w/ Stand By Assist Functional Transfer Goals Pt Will Perform All Functional Transfers: w/ Stand By Assist OT Discharge Recommendations Recommendation: Inpatient setting Therapist: SHAUN Chan/Valerie [id number] Date: 09/20/2020 * India Hassan MD - 09/20/2020 7:41 AM CDT Infectious Diseases Progress Note Today's Date: 09/20/2020 Admission Date: 09/04/2020 Reason for this consultation: complex patient has seen ID. Currently on rocephin , flagyl, fluconazole, and PO vanc for recurrent UTIs d/t colovesical fistula. H ad colovesical fistula takedown with partial cystectomy 09/04. Seeking recs on en d dates for abx or any need to change abx Type of Consultation: Co-Management w/Signed Orders Assessment: Carlos Alberto Torres is a 70 y.o. female with a medical history of diverticuliti s in 2011 leading to surgical history for and due to recurrent fistulization, mo st recently colovaginal and coloureteral/vesical. She has had recurrent UTI's du e to feculent urine and has been on and off several antibiotics over the past se veral years and especially since Dec, 2019. She has bilateral nephrostomy tubes in place following severe infection in June with VRE, Bacteroides, Brenda glab rata and Brenda parapsilosis on cultures. She received 14 days of daptomycin, m icafungin, metronidazole and a cephalosporin and was then transitioned to IV cef triaxone, metronidazole, fluconazole 200 mg daily until definitive surgery due t o high risk for severe infection. She had a first occurrence of C. Diff in June and has been on ppx PO vancomycin following treatment course. She was admitted 09/04 following colovesical fistula takedown, partial cystectomy, infected mesh e xcision and colectomy with colostomy creation. NGT placed on 09/07 d/t ileus and hospitalization has since been complicated by fever /25 AM and increasing O2 re quirement but appeared to be more volume overload on CXR. BCx from time of fever positive for MRSE from PICC BCx so removed PICC and treating for CLABSI w/ vanc omycin for 7d. Stopped other antimicrobials 09/11, but patient w/ rising WBC 09/[address] abd/pelv demonstrated fluid collection along anterior abdominal wall joana und incision site, s/p IR drain placement 09/13 w/ E. Faecium, Pseudomonas aerugi nosa and Brenda glabrata growing from abscess cx. Anticipate continuing on dapt o/cefepime/metronidazole/micafungin for ~2w or until fluid collection resolved. ID Problem List 1. 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 Sepsis - 2 MRSE CLABSI 09/08, now w/ suspected postop wound infection/fluid collection on CT 09/12 3. Intraabdominal abscess at surgical site - E. Faecium (S dapt, Lz, R vanc), P. Aeruginosa (S becky remi 1, cefe remi 8, intrmed p/tazo) C. glabrata 4. MRSE CLABSI - on 09/08 BCx, PICC removed 09/09 5. Colostomy creation 09/04 6. Salomon catheter placed 09/04 7. Recent polymicrobial pyelonephritis - C. Glabrata, C. Parapsilosis, VRE, Bact eroides, Eggerthella w/ Intra-abdominal abscess 8. 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 B/L nephrostomy tubes placed in June, 10. Recent C. Diff colitis on PO Vanc BID 11. Poor PO intake on TPN 12. Ileus (09/07) 13. Antibiotic allergies: Bactrim- Hives 14. Acute hypoxic respiratory failure 15. Volume overload Recommendations: 1. Continue daptomycin 10mg/kg q24h (VRE abdominal wall possible abscess vs rect us sheath hematoma seeded) --> upon dc to SNF transition to PO linezolid 600 bid 2. Continue IV cefepime 2g q8h (PSAE abdominal wall possible abscess) 3. Continue IV micafungin 100mg daily (C. Glabrata, fluconazole-resistant) 4. Continue PO vancomycin BID (C.diff prophylaxis, recent infection) 5. Stopped flagyl today (ordered), adequate anaerobic coverage completed with si gnificant nausea and vomiting will see if improved off flagyl 6. Plan for 2 weeks (tentative end = 09/29) with repeat CT abd/pelvis to determin e extension vs abx cessation 7. Weekly cbc, cmp, cpk faxed to [phone] 8. Will arrange ID f/u after discharge India Hassan MD Division of Infectious Diseases Pager [phone] Interval Hx/Subjective Afebrile VSS on 1-2LNC WBC 16.6-down LFT wnl Cr 0.73 HEMA upper abd = 20 cc Jvac mid-abd = 130->500 cc No overnight events Less pelvic and abdominal pain Appetite improving Still quite nauseated, no emesis in few days Colostomy ouptut 1L, not watery No rash or itching Antimicrobial Start date End date Fluconazole 07/14-09/11; 09/13 09/14 Cefepime 07/11 07/14 Cefpodoxime 07/05 07/11 Flagyl 07/03-09/11; 09/13 Active Daptomycin 07/05 -07/14; 09/15 Active Micafungin 07/03-07/14; 09/14 Active PO Vancomycin 07/05 Active Ceftriaxone 07/03-07/05; 07/14 09/11 Meropenem 06/28 07/03 Linezolid 06/28 07/05 IV Vancomycin 06/28; 09/09 09/15 Azithromycin Unknown, ~06/22 06/26 Ciprofloxacin 06/20 ~06/22 Cefepime 09/13 active Estimated Creatinine Clearance: 66 mL/min (based on SCr of 0.73 mg/dL). Medications Scheduled Meds:buPROPion XL (WELLBUTRIN XL) tablet 150 mg, 150 mg, Oral, QDAY cefepime (MAXIPIME) 2 g in sodium chloride 0.9% (NS) 100 mL IVPB (MB+), 2 g, Int ravenous, Q8H* cetirizine (ZyrTEC) tablet 10 mg, 10 mg, Oral, QDAY COVID-19 vacc,mRNA (MODERNA) PF immunization 100 mcg, 100 mcg, Intramuscular, New Car Inspector DAPTOmycin (CUBICIN) injection 550 mg, 10 mg/kg (Adjusted), Intravenous, Q24H* enoxaparin (LOVENOX) syringe 40 mg, 40 mg, Subcutaneous, QDAY(21) gabapentin (NEURONTIN) capsule 300 mg, 300 mg, Oral, BID levothyroxine (SYNTHROID) tablet 50 mcg, 50 mcg, Oral, QDAY methocarbamoL (ROBAXIN) tablet 750 mg, 750 mg, Oral, TID metroNIDAZOLE (FLAGYL) 500 mg IVPB 100 mL, 500 mg, Intravenous, Q12H* micafungin (MYCAMINE) 100 mg in sodium chloride 0.9% (NS) 100 mL IVPB (MB+), 100 mg, Intravenous, Q24H* naphazoline 0.025 % /pheniramine 0.3 % (NAPHCON-A) ophthalmic solution 1 drop, 1 drop, Both Eyes, QID nicotine (NICODERM CQ STEP 2) 14 mg/day patch 1 patch, 1 patch, Transdermal, Q24 H* oxybutynin XL (DITROPAN XL) tablet 15 mg, 15 mg, Oral, QDAY pantoprazole DR (PROTONIX) tablet 40 mg, 40 mg, Oral, QDAY scopolamine (TRANSDERM-SCOP) 1mg over 3 days patch 1 patch, 1 patch, Transdermal , Q72H* And Patch Documentation - Scopolamine base 1MG/72HR 1 patch, 1 patch, Transdermal, B ID polyethylene glycol 3350 (MIRALAX) packet 17 g, 1 packet, Oral, BID senna/docusate (SENOKOT-S) tablet 1 tablet, 1 tablet, Oral, BID sodium chloride PF 0.9% flush 10 mL, 10 mL, Flush, FLUSH TID sodium chloride PF 0.9% syringe 10 mL, 10 mL, Intravenous, BID vancomycin (FIRVANQ) oral solution 125 mg, 125 mg, Oral, BID Continuous Infusions: Adult Continuous Parenteral Nutrition (PN) 75 mL/hr at 09/19/20 2100 PRN and Respiratory Meds:acetaminophen Q6H PRN, aluminum/magnesium hydroxide PRN , HYDROcodone/acetaminophen Q6H PRN, hyoscyamine Q4H PRN, lidocaine PF PRN, jayce tonin QHS PRN, nalOXone PRN, nicotine polacrilex Q1H PRN, [DISCONTINUED] ondanse hilary Q6H PRN OR ondansetron (ZOFRAN) IV Q6H PRN, phenoL PRN, prochlorperazin e Q6H PRN, simethicone Q6H PRN Physical Examination Vital Signs: Most Recent Vital Signs: 24 H our Range BP: 102/63 (09/20 732) Temp: 36.9 C (98.4 F) (09/20 732) Pulse: 76 (09/20 732) Respirations: 17 PER MINUTE (09/20 732) SpO2: 93 % (09/20 732) BP: (99-136)/(49-65) Temp: [36.9 C (98.4 F)-37.2 C (98.9 F)] Pulse: [76-83] Respirations: [16 PER MINUTE-18 PER MINUTE] SpO2: [92 %-94 %] Gen: Alert, oriented x 3, appears fatigued, elderly female, in NAD HENT: NC/AT, MMM, no thrush Eyes: conj not injected Lungs: diminished BS in bases, no rhonchi, nonlabored Heart: RRR, no murmur Abd: RLQ colostomy semiformed stools in bag, midline incision bandage dry, not u ndressed, no adjacent erythema/induration, LLQ HEMA drain serosanginous fluid, bin edson in place Ext: no edema Skin: no rash Lines: RUE PICC (09/12) -site unremarkable Drains/tubes: B/L nephrostomy tubes with clear yellow urine salomon (09/04) LLQ HEMA drain (09/04) Jvac mid-abdomen (09/12) RLQ colostomy Lab Review Hematology Recent Labs 09/18/20 0424 WBC 16.6* HGB 8.6* HCT 27.1* PLTCT 586* Chemistry Recent Labs 09/18/20 0424 09/19/20 1220 09/20/20 0440 NA 138 136* 137 K 4.6 4.5 4.5 CL 105 106 106 CO2 25 25 24 BUN 19 20 21 CR 0.59 0.67 0.73 GFR >60 >60 >60 GLU 108* 101* 100 CA 8.6 7.9* 8.5 PO4 4.4 3.7 4.2 ALBUMIN -- -- 2.5* ALKPHOS -- -- 88 AST -- -- 25 ALT -- -- 19 TOTBILI -- -- 0.5 Microbiology, Radiology and other Diagnostics Review Microbiology: 09/08 BCx x2 w/ 1/2 MRSE (positive from PICC, peripheral negative) 09/10 BCx x2 NGTD 09/13 abscess cx w/ E. Faecium, Pseudomonas aeruginosa, C. glabrata; g/s w/ rare PMNs, moderate GPC resembling strep Microbiology data reviewed Radiology: 09/08 CXR 1. Placement of gastric tube as described. 2. Small left greater than right pleural effusions with bibasilar left greater than right opacities, which may represent atelectasis and/or pneumonia. 3. Mild diffuse bilateral interstitial opacities, likely representing pulmonary edema. 09/12 CT chest/abd/pelv CHEST: 1. Bilateral lower lobe dependent consolidations and air bronchograms likely atelectasis rather than pneumonia. Trace amount of dependent pleural fluid. 2. Coronary artery disease. 3. Mild emphysema. 4. A few tiny pulmonary nodules are noted which are likely benign. However given the [...] gas. 2. Development of a mixed density mildly complex fluid collection along the anterior abdominal [...] mildly dilated gallbladder. Pericholecystic fluid is likely secondary [...] on short interval follow-up imaging is suggested. Pertinent radiology images viewed. * Marti Edouard MD - 09/20/2020 5:56 AM CDT Urology Progress Note 09/20/2020 ASSESSMENT: Carlos Alberto Torres is a 70 y.o. Female with large colovesical/vaginal fistula s/p multiple surgeries for complications from diverticulitis now s/p ex-lap, fis harlan excision, partial cystectomy, transverse end colostomy complicated by right internal iliac vein injury LOS: 16 days ACTIVE PROBLEMS: Principal Problem: Colovesical fistula Active Problems: Acute blood loss anemia J LUIS (acute kidney injury) (HCC) Malnutrition (HCC) Bacteremia due to methicillin resistant Staphylococcus epidermidis Candidal urinary tract infection Ileus (HCC) Hypokalemia CLABSI (central line-associated bloodstream infection) Acute pulmonary edema (HCC) Abscess Bacteremia not present on admission PLAN: will discuss plan with staff surgeon - Dr. Cr - Pain control: PO with IV - Card/Resp: CXR 09/08 demonstrated pulmonary edema. - Diet/FEN: Reg diet > NGT Removed on rounds 09/09. > TPN resumed on 09/14 > Minimal colostomy output associated with vomiting 09/16, improved 09/19 - GI: bowel regimen, zofran prn - : Salomon catheter with antispasmodics in place. Right and Left NT in place. > NT tubes capped bilaterally, anticipate pulling 09/20 - Renal: Cr 0.73 (0.67); Replete lytes prn - Heme/ID: Oral Vanc. > ID consulted, appreciate recs > 2u pRBC intraop > 2u pRBC 09/06. > 09/08 PICC line blood culture: Staph epidermidis, susceptible to vanc > 09/08 left arm blood cultures: ngtd x5 > Remove PICC Line 09/09 > CT obtained 09/12 - partial SBO within hernia, mildly complex fluid collection along anterior abdominal wall, right rectus sheath hematoma. >09/13 Rapid Responded 2x w/ worsening leukocytosis, broadened to cefepime, fluconazole, vanc and flagy > 09/13 Fluid abscess culture: Enterococcus pseudomonas >09/15 transitioned to dapto, IV Vanc D/C'd > Current abx per ID: dapto, micafungin, cefepime, flagyl, PO vanc -Transition Dapto to Linezolid upon discharge due to SN[facility] preference, OK w/ ID -Cont abx and anti-fungal for ~2weeks w/ a repeat CT scan - PICC placed 09/12 for access - CANDLE MOLDER: bupropion, synthroid - Nicoderm patch and gum - OOB/Amb - Doctor Of Optometry consult placed due to emotional distress - Dispo: D/C today to [facility], confirm ID plan > COVID test negative, 09/19 > HEMA pull prior to D/C > D/C w/ J-Vac to drainage Prophylaxis Review: - DVT: SCD's, Lovenox - Catheter: Yes - Abx: Yes Marti Edouard MD PGY-1 Urology Please page urology source water protection specialist with questions SUBJECTIVE: No acute events overnight. Pain well controlled. Pt tolerating regular diet naus ea or vomiting. She has ostomy output. Has ambulated minimally. OBJECTIVE: Vital Signs: Most Recent Vital Signs: Past 24 Ho urs BP: 107/65 (09/20 440) Temp: 37.2 C (98.9 F) (09/20 440) Pulse: 81 (09/20 440) Respirations: 18 PER MINUTE (09/20 440) SpO2: 93 % (09/20 440) BP: (99-136)/(49-65) Temp: [36.9 C (98.4 F)-37.2 C (98.9 F)] Pulse: [79-83] Respirations: [16 PER MINUTE-18 PER MINUTE] SpO2: [92 %-94 %] General: Alert & oriented, no acute distress Pulm: non-labored on room-air CV: Regular rate, no JVD present Abd: Soft, appropriately tender, distention improved, LLQ j-vac on suction drain ing SS Incisions/Wounds: Appropriately tender to palpation. Midline incision stapled. J P SS. Colostomy with stool in pouch Extremities: No edema, SCD's in place : Salomon catheter in place draining clear yellow urine. Right NT capped. Left N T capped. Labs: Hematology Chemistry Recent Labs 09/18/20 0424 WBC 16.6* HGB 8.6* PLTCT 586* Recent Labs 09/20/20 0440 NA 137 K 4.5 CL 106 CO2 24 BUN 21 CR 0.73 GFR >60 GLU 100 CA 8.5 PO4 4.2 Intake/Output: Date 09/19/20700 - 09/20/20 0700 09/20/20 0701 - 09/21/20 0700 Shift 9382-4532 2334-9214 24 Hour Total 7183-7264 5640-1544 24 Hour Total INTAKE P.O. 222 0 222 Other 30 10 40 Shift Total(mL/kg) 252(3.4) 10(0.1) 262(3.6) OUTPUT Urine(mL/kg/hr) 1675(1.9) 2150 3825 Urine 0 0 0 Straight Cath (mL) 0 0 0 Urine Output (ml) (Indwelling Urinary Catheter 09/04/20 ) 875 2150 3025 Urine Output (ml) (NEPHROSTOMY TUBE 06/29/20 0828 Flank, Right Lower Lateral 8 FR) 450 0 450 Urine Output (ml) (NEPHROSTOMY TUBE 06/29/20 0828 Flank, Left Lower Lateral 8 FR) 350 0 350 Emesis 0 0 0 Emesis 0 0 0 Drains 0087 886 5900 Drain Output (ml) (J-Vac Drain 09/13/20 1710 Left;Mid Abdomen #2) 90 410 500 Drain Output (ml) (Colostomy 09/04/20 1419 Upper Right Quadrant) 324 286 8526 Drain Output (ml) (Giovanni Santoro Drain 09/04/20 1419 Anterior Abdomen #1) 20 0 20 Other 0 0 0 Stool (ml) 0 0 0 Shift Total(mL/kg) 2710(36.9) 2710(36.9) 5420(73.8) [facility] -2458 -2700 -5158 Weight (kg) 73.5 73.5 73.5 73.5 73.5 73.5 Stool Occurrence: 0 Malnutrition Details: Associated attestation - Lorena Rodriguez MD - 09/24/2020 2:57 PM CDT Attestation I saw and evaluated pt with the resident on rounds and performed the jurado portion s of the e/m. I agree with the above assessment and plan. Pt is progressing we ll. She is tolerating a regular diet with expected decreased appetite. She has tolerated her neph tube clamping without increased pain or change in creat. Sti ll working on getting placement for d/c. Continue inpt care. Lorena Rodriguez MD, FACS * Jane Patel, RN - 09/19/2020 5:13 PM CDT Patient had 5 second run of SVT (HR: 165), asymptomatic. Urology Faisal Solis MD notified via text page. * Celia Siddiqi, PT - 09/19/2020 1:30 PM CDT PHYSICAL THERAPY PROGRESS NOTE Name: Carlos Alberto Torres : 1950 Age: 70 y.o. Admission Date: 09/04/2020 LOS: 15 days Mobility Patient Turn/Position: Supine Progressive Mobility Level: Stand Level of Assistance: Assist X1 Assistive Device: Walker Time Tolerated: 11-30 minutes Activity Limited By: Fatigue;Nausea Subjective Significant hospital events: 70 y.o. Female with large colovesical/vaginal fistu la s/p multiple surgeris for complications from diverticulitis now s/p ex-lap, f istula excision, partial cystectomy, transverse end colostomy complicated by rig ht internal iliac vein injury Mental / Cognitive Status: Alert;Oriented;Cooperative Comments: 1L O2 NC Comments: x2 Nephrostomy drain, x1 HEMA; Abdominal drain Ambulation Assist: Independent Mobility in Community without Device Patient Owned Equipment: Roller Walker Home Situation: Lives h Roommate(Fiance) Type of Home: House Entry Stairs: No Stairs In-Home Stairs: No Stairs Comments: Patient reports her fiance is currently hospitalized at [facility] with COVID , so she is unsure if he will be able to assist her upon discharge (anticipating not). Her daughters live near but work during the day. Patient endorses history of one fall; knees buckled. Patient states she is open to discharging to inpati ent setting for further treatment if indicated, but only for short stay. 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 Bed Mobility/Transfer Bed Mobility: Supine to Sit: Moderate Assist;Head of Bed Elevated;Use of Rail;Re quires Extra Time Bed Mobility: Sit to Supine: Minimal Assist;Assist with R LE;HOB Elevated;No Sims l Transfer Type: Sit to Stand Transfer: Assistance Level: To/From;Bed;Standby Assist Transfer: Assistive Device: Roller Walker Transfers: Type Of Assistance: For Strength Deficit;For Balance;For Safety Consi derations End Of Activity Status: In Bed;Instructed Patient to Request Assist with Mobilit y;Instructed Patient to Use Call Light Comments: patinet stand approximately one minute with stand by assist, reporting nausea with standing requesting to return to supine Gait Comments: declines ambulation--limited by nausea Education Persons Educated: Patient Patient Barriers To Learning: None Noted Teaching Methods: Verbal Instruction Patient Response: Verbalized Understanding;More Instruction Required Topics: Plan/Goals of PT Interventions;Mobility Progression;Safety Awareness;Up with Assist Only;Importance of Increasing Activity;Ambulate With Nursing;Recomme nd Continued Therapy Assessment/Progress Impaired Mobility Due To: Pain;Decreased Activity Tolerance Impaired Strength Due To: Pain Assessment/Progress: Should Improve w/ Continued PT Comments: mobility limited by nausea this date, pain much improved compared to l ast session. patient continues to require encouragement for participation. AM-PAC 6 Clicks Basic Mobility Inpatient Turning from your back to your side while in a flat bed without using bed rails: None Moving from lying on your back to sitting on the side of a flatbed without using bedrails : A Lot Moving to and from a bed to a chair (including a wheelchair): A Little Standing up from a chair using your arms (e.g. wheelchair, or bedside chair): A Little To walk in hospital room: A Little Climbing 3-5 steps with a railing: A Lot Raw Score: 17 Standardized (T-scale) Score: 39.67 Basic Mobility CMS 0-100%: 43.83 [facility] G Code Modifier for Basic Mobility: CK AM-PAC Basic Mobility Functional Stage: 34-51 Limited Mobility Indoors Functional Stages Basic Mobility Score Interpretation 34-51 Limited Mobility Indoors: Your score suggests significant difficulty in mo ving about independently and the need for assistance. You may be able to move a bout in a small area of your home that has been adapted to eliminate safety haza rds. You may have difficulty moving from a sitting to standing position, climbi ng stairs and you may have a great deal of difficulty moving about outdoors and in the community. Goals Goal Formulation: With Patient Patient Will Go Supine To/From Sit: w/ Stand By Assist Patient Will Transfer Bed/Chair: w/ Stand By Assist Patient Will Transfer Sit to Stand: w/ Stand By Assist Patient Will Ambulate: 151-200 Feet, w/ Walker, w/ Stand By Assist Plan Treatment Interventions: Mobility Training;Strengthening;ROM;Balance Activities; Coordination Training;Endurance Training Plan Frequency: 5 Days per Week PT Plan for Next Visit: Progress transfers, gait with walker, endurance PT Discharge Recommendations Recommendation: Inpatient setting Patient Currently Requires Equipment: Owns what is needed Therapist: Celia Siddiqi PT, DPT [id number] Date: 09/19/2020 * Nika Stark MD - 09/19/2020 6:05 AM CDT Colorectal Surgery Daily Progress Note Today's Date: 09/19/2020 Name: Carlos Alberto Torres Admission Date: 09/04/2020 (LOS: 15 days) Assessment: 70 y.o. female w/ diverticulitis and complex GI and urologic surgica l hx, w recurrent colovesical and rectovaginal fistulas now s/p takedown of rect ovesical fistula, end transverse colostomy, R internal iliac vein injury and lig ation, primary bladder repair, left sided ureter stent placement. OR date: 09/04/2020 Principal Problem: Colovesical fistula Active Problems: Acute blood loss anemia J LUIS (acute kidney injury) (HCC) Malnutrition (HCC) Bacteremia due to methicillin resistant Staphylococcus epidermidis Candidal urinary tract infection Ileus (HCC) Hypokalemia CLABSI (central line-associated bloodstream infection) Acute pulmonary edema (HCC) Abscess Plan: - No concerns for ongoing obstruction. - No dietary restrictions, continue TPN until adequate nutrition PO. Encourage i ncreased PO intake. - Continue abdominal binder. - Remainder of care per primary team. - Surgical Oncology will peripherally follow. Please do not hesitate to reach ou t to us with concerns or questions. - Plan discussed with Dr. Martell _ Subjective: No acute events overnight. Pain is well-controlled. Patient is not having nausea , has not vomited, is TPN and regular diet. She was able to eat some soup yester day. Objective: BP: (113-159)/(48-60) Temp: [36.3 C (97.4 F)-37.1 C (98.7 F)] Pulse: [80-87] Respirations: [18 PER MINUTE] SpO2: [93 %-96 %] Lab Results Component Value Date/Time HGB 8.6 (L) 09/18/2020423 WBC 16.6 (H) 09/18/2020423 ] Lab Results Component Value Date/Time NA 138 09/18/2020 0424 K 4.6 09/18/2020 0424 CL 105 09/18/2020 0424 CO2 25 09/18/2020 0424 BUN 19 09/18/2020 0424 CR 0.59 09/18/2020 0424 ] Physical Exam: GEN: NAD, Alert CARDIO: Normal rate 80s, regular rhythm PULM: No respiratory distress ABD: Soft, non-distended, appropriately TTP, incision c/d/i, ostomy pink and via ble with mild sloughing and stool in bag. JVAC in place with older appearing wood guinous output, JPx1 with thin SS output. EXT: No cyanosis or edema NEURO: Gross motor in UE and LE b/l. Sensory intact. Nika Strak MD Team Pager: # [phone] * Marti Edouard MD - 09/19/2020 5:35 AM CDT Urology Progress Note 09/19/2020 ASSESSMENT: Carlos Alberto Torres is a 70 y.o. Female with large colovesical/vaginal fistula s/p multiple surgeries for complications from diverticulitis now s/p ex-lap, fis harlan excision, partial cystectomy, transverse end colostomy complicated by right internal iliac vein injury LOS: 15 days ACTIVE PROBLEMS: Principal Problem: Colovesical fistula Active Problems: Acute blood loss anemia J LUIS (acute kidney injury) (HCC) Malnutrition (HCC) Bacteremia due to methicillin resistant Staphylococcus epidermidis Candidal urinary tract infection Ileus (HCC) Hypokalemia CLABSI (central line-associated bloodstream infection) Acute pulmonary edema (HCC) Abscess Bacteremia not present on admission PLAN: will discuss plan with staff surgeon - Dr. Cr - Pain control: PO with IV - Card/Resp: CXR 09/08 demonstrated pulmonary edema. - Diet/FEN: Reg diet > NGT Removed on rounds 09/09. > TPN resumed on 09/14 > Minimal colostomy output associated with vomiting 09/16, improved 09/19 - GI: bowel regimen, zofran prn - : Salomon catheter with antispasmodics in place. Right and Left NT in place. > Plan to cap NT 09/19, awaiting labs - Renal: Cr pending (0.59); Replete lytes prn - Heme/ID: Oral Vanc. WBC pending (16.6) > ID consulted, appreciate recs > 2u pRBC intraop > 2u pRBC 09/06. > 09/08 PICC line blood culture: Staph epidermidis, susceptible to vanc > 09/08 left arm blood cultures: ngtd x5 > Remove PICC Line 09/09 > CT obtained 09/12 - partial SBO within hernia, mildly complex fluid collection along anterior abdominal wall, right rectus sheath hematoma. >09/13 Rapid Responded 2x w/ worsening leukocytosis, broadened to cefepime, fluconazole, vanc and flagy > 09/13 Fluid abscess culture: Enterococcus pseudomonas >09/15 transitioned to dapto, IV Vanc D/C'd > Current abx per ID: dapto, micafungin, cefepime, flagyl, PO vanc -Cont abx for ~2weeks or until fluid collection resolution per ID recs; confir m final plan before D/C - PICC placed 09/12 for access - CANDLE MOLDER: bupropion, synthroid - Nicoderm patch and gum - OOB/Amb - Doctor Of Optometry consult placed due to emotional distress - Dispo: Continue inpatient care, ID plan, placement > COVID test ordered 09/19 >HEMA pull prior to D/C Prophylaxis Review: - DVT: SCD's, Lovenox - Catheter: Yes - Abx: Yes Marti Edouard MD PGY-1 Urology Please page urology source water protection specialist with questions SUBJECTIVE: No acute events overnight. Pt tolerating regular diet wihtout nausea or vomiting . She has improved ostomy output. Has ambulated minimally. OBJECTIVE: Vital Signs: Most Recent Vital Signs: Past 24 Ho urs BP: 133/53 (09/19 330) Temp: 36.7 C (98.1 F) (09/19 330) Pulse: 82 (09/19 330) Respirations: 18 PER MINUTE (09/19 330) SpO2: 95 % (09/19 330) BP: (113-159)/(48-60) Temp: [36.3 C (97.4 F)-37.1 C (98.7 F)] Pulse: [80-87] Respirations: [18 PER MINUTE] SpO2: [93 %-96 %] General: Alert & oriented, no acute distress Pulm: non-labored on room-air CV: Regular rate, no JVD present Abd: Soft, appropriately tender, distention improved, LLQ j-vac on suction drain ing SS Incisions/Wounds: Appropriately tender to palpation. Midline incision stapled. J P SS. Colostomy with stool in pouch Extremities: No edema, SCD's in place : Salomon catheter in place draining clear yellow urine. Right NT draining clear yellow urine. Left NT draining clear yellow urine. Labs: Hematology Chemistry Recent Labs 09/18/20423 WBC 16.6* HGB 8.6* PLTCT 586* Recent Labs 09/18/20423 NA 138 K 4.6 CL 105 CO2 25 BUN 19 CR 0.59 GFR >60 GLU 108* CA 8.6 PO4 4.4 Intake/Output: Date 09/18/20 07 - 09/19/20 0709/19/20700 - 09/20/20 07 Shift 7465-4747 5045-1056 24 Hour Total 6227-2527 5701-8891 24 Hour Total INTAKE P.O. 200 360 560 Other 30 30 60 Shift Total(mL/kg) 230(3.1) 390(5.3) 620(8.4) OUTPUT Urine(mL/kg/hr) 2125(2.4) 1645 3770 Urine Output (ml) (Indwelling Urinary Catheter 09/04/20 ) 0 70 70 Urine Output (ml) (NEPHROSTOMY TUBE 06/29/20 0828 Flank, Right Lower Lateral 8 FR) 378 124 4240 Urine Output (ml) (NEPHROSTOMY TUBE 06/29/20 0828 Flank, Left Lower Lateral 8 FR) 1225 1025 2250 Drains 530 210 740 Drain Output (ml) (J-Vac Drain 09/13/20 1710 Left;Mid Abdomen #2) 55 60 115 Drain Output (ml) (Colostomy 09/04/20 1419 Upper Right Quadrant) 475 150 625 Drain Output (ml) (Giovanni Santoro Drain 09/04/20 1419 Anterior Abdomen #1) 0 0 0 Shift Total(mL/kg) 2655(36.1) 1855(25.2) 4510(61.4) NET -2420 -1466 -3890 Weight (kg) 73.5 73.5 73.5 73.5 73.5 73.5 Stool Occurrence: 0 Malnutrition Details: * India Hassan MD - 09/18/2020 10:28 AM CDT Infectious Diseases Progress Note Today's Date: 09/18/2020 Admission Date: 09/04/2020 Reason for this consultation: complex patient has seen ID. Currently on rocephin , flagyl, fluconazole, and PO vanc for recurrent UTIs d/t colovesical fistula. H ad colovesical fistula takedown with partial cystectomy 09/04. Seeking recs on en d dates for abx or any need to change abx Type of Consultation: Co-Management w/Signed Orders Assessment: Carlos Alberto Torres is a 70 y.o. female with a medical history of diverticuliti s in 2011 leading to surgical history for and due to recurrent fistulization, mo st recently colovaginal and coloureteral/vesical. She has had recurrent UTI's du e to feculent urine and has been on and off several antibiotics over the past se veral years and especially since Dec, 2019. She has bilateral nephrostomy tubes in place following severe infection in June with VRE, Bacteroides, Brneda glab rata and Brenda parapsilosis on cultures. She received 14 days of daptomycin, m icafungin, metronidazole and a cephalosporin and was then transitioned to IV cef triaxone, metronidazole, fluconazole 200 mg daily until definitive surgery due t o high risk for severe infection. She had a first occurrence of C. Diff in June and has been on ppx PO vancomycin following treatment course. She was admitted 09/04 following colovesical fistula takedown, partial cystectomy, infected mesh e xcision and colectomy with colostomy creation. NGT placed on 09/07 d/t ileus and hospitalization has since been complicated by fever 25 AM and increasing O2 re quirement but appeared to be more volume overload on CXR. BCx from time of fever positive for MRSE from PICC BCx so removed PICC and treating for CLABSI w/ vanc omycin for 7d. Stopped other antimicrobials 09/11, but patient w/ rising WBC 09/[address] abd/pelv demonstrated fluid collection along anterior abdominal wall joana und incision site, s/p IR drain placement 09/13 w/ E. Faecium, Pseudomonas aerugi nosa and Brenda glabrata growing from abscess cx. Anticipate continuing on dapt o/cefepime/metronidazole/micafungin for ~2w or until fluid collection resolved. ID Problem List 1. 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 Sepsis - 2/2 MRSE CLABSI 09/08, now w/ suspected postop wound infection/fluid collection on CT 09/12 3. Intraabdominal abscess at surgical site - E. Faecium (S dapt, Lz, R vanc), P. Aeruginosa (S becky remi 1, cefe remi 8, intrmed p/tazo) C. glabrata 4. MRSE CLABSI - on 09/08 BCx, PICC removed 09/09 5. Colostomy creation 09/04 6. Salomon catheter placed 09/04 7. Recent polymicrobial pyelonephritis - C. Glabrata, C. Parapsilosis, VRE, Bact eroides, Eggerthella w/ Intra-abdominal abscess 8. 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 B/L nephrostomy tubes placed in June, 10. Recent C. Diff colitis on PO Vanc BID 11. Poor PO intake on TPN 12. Ileus (09/07) 13. Antibiotic allergies: Bactrim- Hives 14. Acute hypoxic respiratory failure 15. Volume overload Recommendations: 1. Continue IV daptomycin 10mg/kg q24h (VRE abdominal wall possible abscess vs r ectus sheath hematoma seeded) 2. Continue IV cefepime 2g q8h renally dosed + PO metronidazole 500mg BID (PSAE + anaerobic abdominal wall possible abscess) 3. Continue IV micafungin 100mg daily (C. Glabrata, fluconazole-resistant) 4. Continue PO vancomycin BID (C.diff prophylaxis, recent infection) 5. Following c.glabrata susceptiblities 6. Continue drainage of anterior abdominal wall fluid collection 7. Plan for ~2 weeks abx (above regimen) with repeat CT a/p 8. Nephrostomy tube management per Urology 9. Monitoring nausea, may stop flagyl in coming days if not improving India Hassan MD Division of Infectious Diseases Pager [phone] Interval Hx/Subjective Afebrile VSS on 1-2LNC WBC 17.7->17->16.6 Plt 586-up Cr 0.59 CPK 24 (09/15) Colostomy=25 cc HEMA upper abd = 35 cc Jvac mid-abd = 130 cc Abdominal pain nicole LUQ, b/l pelvis Minimal flank pain around PCNs, only if moves in tubing Nausea unchanged Emesis x1 yeaterday No fevers, no chills No rash or itching No dyspnea, no cough Antimicrobial Start date End date Fluconazole 07/14-09/11; 09/13 Active Cefepime 07/11 07/14 Cefpodoxime 07/05 07/11 Flagyl 07/03-09/11; 09/13 Active Daptomycin 07/05 -07/14; 09/15 Active Micafungin 07/03 07/14 PO Vancomycin 07/05 Active Ceftriaxone 07/03-07/05; 07/14 09/11 Meropenem 06/28 07/03 Linezolid 06/28 07/05 IV Vancomycin 06/28; 09/09 09/15 Azithromycin Unknown, ~06/22 06/26 Ciprofloxacin 06/20 ~06/22 Cefepime 09/13 active Estimated Creatinine Clearance: 68.9 mL/min (based on SCr of 0.59 mg/dL). Medications Scheduled Meds:buPROPion XL (WELLBUTRIN XL) tablet 150 mg, 150 mg, Oral, QDAY cefepime (MAXIPIME) 2 g in sodium chloride 0.9% (NS) 100 mL IVPB (MB+), 2 g, Int ravenous, Q8H* cetirizine (ZyrTEC) tablet 10 mg, 10 mg, Oral, QDAY -19 vacc,mRNA (MODERNA) PF immunization 100 mcg, 100 mcg, Intramuscular, New Car Inspector DAPTOmycin (CUBICIN) injection 550 mg, 10 mg/kg (Adjusted), Intravenous, Q24H* enoxaparin (LOVENOX) syringe 40 mg, 40 mg, Subcutaneous, QDAY() gabapentin (NEURONTIN) capsule 300 mg, 300 mg, Oral, BID levothyroxine (SYNTHROID) tablet 50 mcg, 50 mcg, Oral, QDAY methocarbamoL (ROBAXIN) tablet 750 mg, 750 mg, Oral, TID metroNIDAZOLE (FLAGYL) 500 mg IVPB 100 mL, 500 mg, Intravenous, Q12H* micafungin (MYCAMINE) 100 mg in sodium chloride 0.9% (NS) 100 mL IVPB (MB+), 100 mg, Intravenous, Q24H* nicotine (NICODERM CQ STEP 2) 14 mg/day patch 1 patch, 1 patch, Transdermal, Q24 H* oxybutynin XL (DITROPAN XL) tablet 15 mg, 15 mg, Oral, QDAY pantoprazole DR (PROTONIX) tablet 40 mg, 40 mg, Oral, QDAY scopolamine (TRANSDERM-SCOP) 1mg over 3 days patch 1 patch, 1 patch, Transdermal , Q72H* And Patch Documentation - Scopolamine base 1MG/72HR 1 patch, 1 patch, Transdermal, B ID polyethylene glycol 3350 (MIRALAX) packet 17 g, 1 packet, Oral, BID senna/docusate (SENOKOT-S) tablet 1 tablet, 1 tablet, Oral, BID sodium chloride PF 0.9% flush 10 mL, 10 mL, Flush, FLUSH TID sodium chloride PF 0.9% syringe 10 mL, 10 mL, Intravenous, BID vancomycin (FIRVANQ) oral solution 125 mg, 125 mg, Oral, BID Continuous Infusions: Adult Continuous Parenteral Nutrition (PN) 75 mL/hr at 09/17/202019 PRN and Respiratory Meds:acetaminophen Q6H PRN, aluminum/magnesium hydroxide PRN , fentaNYL citrate PF Q1H PRN, HYDROcodone/acetaminophen Q6H PRN, HYDROmorphone (DILAUDID) injection Q2H PRN, hyoscyamine Q4H PRN, lidocaine PF PRN, melatonin Q HS PRN, nalOXone PRN, nicotine polacrilex Q1H PRN, [DISCONTINUED] ondansetron Q6 H PRN OR ondansetron (ZOFRAN) IV Q6H PRN, phenoL PRN, prochlorperazine Q6H P RN, simethicone Q6H PRN Physical Examination Vital Signs: Most Recent Vital Signs: 24 H our Range BP: 159/60 (09/18 817) Temp: 37.1 C (98.7 F) (09/18 817) Pulse: 82 (09/18 817) Respirations: 18 PER MINUTE (09/18 817) SpO2: 95 % (09/18 817) BP: (120-159)/(50-74) Temp: [36.8 C (98.3 F)-37.2 C (99 F)] Pulse: [80-85] Respirations: [16 PER MINUTE-20 PER MINUTE] SpO2: [92 %-98 %] Gen: Alert, oriented x 3, appears fatigued, elderly female, in NAD HENT: NC/AT, MMM no thrush Eyes: conj not injected, EOMi Lungs: diminished BS in bases, no rhonchi, nonlabored Heart: RRR, no murmur Abd: RLQ colostomy in place w/ liquid stool in bag. Midline incision well approx imated with erum, HEMA drain in place w/ dark red fluid, L sided abdominal pippa ia. Hypoactive bowel sounds. Mild TTP around incision and drain Ext: trace pretibial BLE edema Skin: No rash Lines: RUE PICC (09/12) -site unremarkable Drains/tubes: B/L nephrostomy tubes with clear yellow urine salomon (09/04) LLQ HEMA drain (09/04) Jvac mid-abdomen (09/12) RLQ colostomy Lab Review Hematology Recent Labs 09/16/2035609/17/20 0456 09/18/20 0424 WBC 17.7* 17.0* 16.6* HGB 7.9* 8.4* 8.6* HCT 23.7* 25.4* 27.1* PLTCT 472* 557* 586* Chemistry Recent Labs 09/16/2035609/17/20 0456 09/18/20 0424 NA 137 139 138 K 4.4 4.6 4.6 CL 108 108 105 CO2 23 25 25 BUN 15 18 19 CR 0.63 0.61 0.59 GFR >60 >60 >60 GLU 122* 107* 108* CA 8.0* 8.3* 8.6 PO4 2.6 3.4 4.4 Microbiology, Radiology and other Diagnostics Review Microbiology: 09/08 BCx x2 w/ 1/2 MRSE (positive from PICC, peripheral negative) 09/10 BCx x2 NGTD 09/13 abscess cx w/ E. Faecium, Pseudomonas aeruginosa, C. glabrata; g/s w/ rare PMNs, moderate GPC resembling strep Microbiology data reviewed Radiology: 09/08 CXR 1. Placement of gastric tube as described. 2. Small left greater than right pleural effusions with bibasilar left greater than right opacities, which may represent atelectasis and/or pneumonia. 3. Mild diffuse bilateral interstitial opacities, likely representing pulmonary edema. 09/12 CT chest/abd/pelv CHEST: 1. Bilateral lower lobe dependent consolidations and air bronchograms likely atelectasis rather than pneumonia. Trace amount of dependent pleural fluid. 2. Coronary artery disease. 3. Mild emphysema. 4. A few tiny pulmonary nodules are noted which are likely benign. However given the [...] gas. 2. Development of a mixed density mildly complex fluid collection along the anterior abdominal [...] mildly dilated gallbladder. Pericholecystic fluid is likely secondary [...] on short interval follow-up imaging is suggested. Pertinent radiology images viewed. * Martin Cr MD - 09/18/2020 10:18 AM CDT Urology Progress Note 09/18/2020 ASSESSMENT: Carlos Alberto Torres is a 70 y.o. Female with large colovesical/vaginal fistula s/p multiple surgeris for complications from diverticulitis now s/p ex-lap, fist benjy excision, partial cystectomy, transverse end colostomy complicated by right internal iliac vein injury LOS: 14 days ACTIVE PROBLEMS: Principal Problem: Colovesical fistula Active Problems: Acute blood loss anemia J LUIS (acute kidney injury) (HCC) Malnutrition (HCC) Bacteremia due to methicillin resistant Staphylococcus epidermidis Candidal urinary tract infection Ileus (HCC) Hypokalemia CLABSI (central line-associated bloodstream infection) Acute pulmonary edema (HCC) Abscess Bacteremia not present on admission PLAN: will discuss plan with staff surgeon - Dr. Cr - Pain control: PO with IV - Card/Resp: CXR 09/08 demonstrated pulmonary edema. > Titrate O2 as able - Diet/FEN: CLD, ADAT > NGT Removed on rounds 09/09. > TPN resumed on 09/14 > Minimal colostomy output associated with vomiting 09/16 - GI: bowel regimen, zofran prn - : Salomon catheter with antispasmodics in place. Right and Left NT in place. - Renal: Cr 0.61. Replete lytes prn - Heme/ID: Oral Vanc. WBC 17.0 (17.7) > ID consulted, appreciate recs > De-escalated to IV vancomycin only 09/11 > 2u pRBC intraop > 2u pRBC 09/06. > 09/08 PICC line blood culture: Staph epidermidis, susceptible to vanc > 09/08 left arm blood cultures: ngtd x5 > Remove PICC Line 09/09 > 09/10 blood cultures: ngtd x4 > 09/13 Hgb 8.8 > CT obtained 09/12 - partial SBO within hernia, mildly complex fluid collection along anterior abdominal wall, right rectus sheath hematoma. >09/13 Rapid Responded 2x w/ worsening leukocytosis, broadened to cefepime, fluconazole, vanc and flagy >09/15 transitioned to dapto, IV Vanc D/C'd > Current abx per ID: dapto, micafungin, cefepime, flagyl, PO vanc - PICC placed 09/12 for access - CANDLE MOLDER: lasix, bupropion, synthroid - Nicoderm patch and gum - OOB/Amb - Doctor Of Optometry consult placed due to emotional distress - Dispo: Continue inpatient care, awaiting final cultures, ID plan, placement Prophylaxis Review: - DVT: SCD's, Lovenox - Catheter: Yes - Abx: Yes Nishant Perry MD PGY-3 Urology Please page urology source water protection specialist with questions ATTESTATION I personally performed the jruado portions of the E/M visit, discussed case with re sident and concur with resident documentation of history, physical exam, assessm ent, and treatment plan unless otherwise noted. Staff name: Martin Cr MD Date: 09/18/2020 SUBJECTIVE: Patient overwhelmed and tearful this morning due to her partner being ill in the hospital and unlikely to survive. The patient continues to have minimal ostomy output associated with nausea. OBJECTIVE: Vital Signs: Most Recent Vital Signs: Past 24 Ho urs BP: 159/60 (09/18 817) Temp: 37.1 C (98.7 F) (09/18 817) Pulse: 82 (09/18 817) Respirations: 18 PER MINUTE (09/18 817) SpO2: 95 % (09/18 817) BP: (120-159)/(50-74) Temp: [36.8 C (98.3 F)-37.2 C (99 F)] Pulse: [80-88] Respirations: [16 PER MINUTE-20 PER MINUTE] SpO2: [92 %-98 %] General: Alert & oriented, no acute distress Pulm: non-labored on 2L NC CV: Regular rate Abd: Soft, appropriately tender, distention improved, LLQ j-vac on suction drain ing dark brown blood Incisions/Wounds: Appropriately tender to palpation. Midline incision stapled, s erosang drainage from inferior portion of incision. HEMA SS. Colostomy with minima l liquid stool Extremities: No edema, SCD's in place : Salomon catheter in place draining clear yellow urine. Right NT draining clear yellow urine. Left NT draining clear yellow urine. Labs: Hematology Chemistry Recent Labs 09/18/20 0424 WBC 16.6* HGB 8.6* PLTCT 586* Recent Labs 09/18/20 0424 NA 138 K 4.6 CL 105 CO2 25 BUN 19 CR 0.59 GFR >60 GLU 108* CA 8.6 PO4 4.4 Intake/Output: Date 09/17/20700 - 09/18/20 0709/18/20700 - 09/19/20 0700 Shift 1900-0700 24 Hour Total 1900-0700 24 Hour Total INTAKE P.O. 700 700 200 200 Other 20 30 50 20 20 Shift Total(mL/kg) 720(9.8) 30(0.4) 750(10.2) 220(3) 220(3) OUTPUT Urine(mL/kg/hr) 1650(1.9) 2550(2.9) 4200(2.4) 950 950 Urine Output (ml) (Indwelling Urinary Catheter 09/04/20 ) 100 275 375 0 0 Urine Output (ml) (NEPHROSTOMY TUBE 06/29/20 0828 Flank, Right Lower Lateral 8 FR) 725 1275 2000 400 400 Urine Output (ml) (NEPHROSTOMY TUBE 06/29/20 0828 Flank, Left Lower Lateral 8 FR) 825 1000 1825 550 550 Drains 90 100 190 90 90 Drain Output (ml) (J-Vac Drain 09/13/20 1710 Left;Mid Abdomen #2) 70 60 130 15 15 Drain Output (ml) (Colostomy 09/04/20 1419 Upper Right Quadrant) 0 25 25 75 7 5 Drain Output (ml) (Giovanni Santoro Drain 09/04/20 1419 Anterior Abdomen #1) 20 1 5 35 0 0 Shift Total(mL/kg) 1740(23.7) 2650(36.1) 4390(59.7) 1040(14.2) 1040(14.2) [facility] -1020 -2620 -3640 -820 -820 Weight (kg) 73.5 73.5 73.5 73.5 73.5 73.5 Stool Occurrence: 0 Malnutrition Details: * Gerson Duncan MD - 09/18/2020 7:34 AM CDT Colorectal Surgery Daily Progress Note Today's Date: 09/18/2020 Name: Carlos Alberto Torres Admission Date: 09/04/2020 (LOS: 14 days) Assessment: 70 y.o. female w/ diverticulitis and complex GI and urologic surgica l hx, w recurrent colovesical and rectovaginal fistulas now s/p takedown of rect ovesical fistula, end transverse colostomy, R internal iliac vein injury and lig ation, primary bladder repair, left sided ureter stent placement. OR date: 09/04/2020 Principal Problem: Colovesical fistula Active Problems: Acute blood loss anemia J LUIS (acute kidney injury) (HCC) Malnutrition (HCC) Bacteremia due to methicillin resistant Staphylococcus epidermidis Candidal urinary tract infection Ileus (HCC) Hypokalemia CLABSI (central line-associated bloodstream infection) Acute pulmonary edema (HCC) Abscess Plan: - No dietary restrictions, continue TPN until adequate nutrition PO - Encourage increased PO - Continue abdominal binder. - Ostomy is pink and viable with output on exam but decreased output documented, please reach out if concerns regarding change in appearance or of ostomy output persistently low - Remainder of care per primary team. - Plan discussed with Dr. Martell _ Subjective: No acute events overnight. Ostomy productive. Mild nausea, no emesis, tolerating H2O, refuses protein shakes, pain controlled. Objective: BP: (120-137)/(50-74) Temp: [36.8 C (98.3 F)-37.2 C (99 F)] Pulse: [80-88] Respirations: [16 PER MINUTE-20 PER MINUTE] SpO2: [92 %-98 %] Lab Results Component Value Date/Time HGB 8.6 (L) 09/18/2020423 WBC 16.6 (H) 09/18/2020423 ] Lab Results Component Value Date/Time NA 138 09/18/2020423 K 4.6 09/18/2020423 CL 105 09/18/2020423 CO2 25 09/18/2020423 BUN 19 09/18/2020423 CR 0.59 09/18/2020423 ] Physical Exam: GEN: NAD, Alert CARDIO: Normal rate 80s, regular rhythm PULM: No respiratory distress ABD: Soft, non-distended, appropriately TTP, incision c/d/i, ostomy pink and via ble with mild sloughing and stool in bag. JVAC in place with sanguinous output, JPx1 with thin SS output. EXT: No cyanosis or edema NEURO: Gross motor in UE and LE b/l. Sensory intact. Gerson Duncan MD Team Pager: # [phone] * Jeffrey Loomis MD - 09/17/2020 7:25 AM CDT Colorectal Surgery Daily Progress Note Today's Date: 09/17/2020 Name: Carlos Alberto Torres Admission Date: 09/04/2020 (LOS: 13 days) Assessment: 70 y.o. female w/ diverticulitis and complex GI and urologic surgica l hx, w recurrent colovesical and rectovaginal fistulas now s/p takedown of rect ovesical fistula, end transverse colostomy, R internal iliac vein injury and lig ation, primary bladder repair, left sided ureter stent placement. OR date: 09/04/2020 Principal Problem: Colovesical fistula Active Problems: Acute blood loss anemia J LUIS (acute kidney injury) (HCC) Malnutrition (HCC) Bacteremia due to methicillin resistant Staphylococcus epidermidis Candidal urinary tract infection Ileus (HCC) Hypokalemia CLABSI (central line-associated bloodstream infection) Acute pulmonary edema (HCC) Abscess Plan: - No dietary restrictions, continue TPN until adequate nutrition PO - Continue abdominal binder. - Ostomy is pink and viable with output, please reach out if concerns regarding change in appearance - Remainder of care per primary team. - Plan discussed with Dr. Martell _ Subjective: No acute events overnight. Small episode of emesis but has since resolved. Alphonse egrmain ostomy output. Objective: BP: (112-144)/(42-70) Temp: [36.9 C (98.4 F)-37.4 C (99.4 F)] Pulse: [81-91] Respirations: [16 PER MINUTE-20 PER MINUTE] SpO2: [92 %-95 %] Lab Results Component Value Date/Time HGB 8.4 (L) 09/17/2020455 WBC 17.0 (H) 09/17/2020455 ] Lab Results Component Value Date/Time NA 139 09/17/20206 K 4.6 09/17/2020455 CL 108 09/17/2020455 CO2 25 09/17/2020455 BUN 18 09/17/2020455 CR 0.61 09/17/2020455 ] Physical Exam: GEN: NAD, Alert CARDIO: Normal rate 70s, regular rhythm PULM: No respiratory distress ABD: Soft, non-distended, appropriately TTP, incision c/d/i, ostomy pink and via ble with ostomy output. JVAC in place with sero-sanguinous output EXT: No cyanosis or edema NEURO: Gross motor in UE and LE b/l. Sensory intact. Jeffrey Loomis MD Team Pager: # [phone] * Martin Cr MD - 09/17/2020 7:03 AM CDT Urology Progress Note 09/17/2020 ASSESSMENT: Carlos Alberto Torres is a 70 y.o. Female with large colovesical/vaginal fistula s/p multiple surgeris for complications from diverticulitis now s/p ex-lap, fist benjy excision, partial cystectomy, transverse end colostomy complicated by right internal iliac vein injury LOS: 13 days ACTIVE PROBLEMS: Principal Problem: Colovesical fistula Active Problems: Acute blood loss anemia J LUIS (acute kidney injury) (HCC) Malnutrition (HCC) Bacteremia due to methicillin resistant Staphylococcus epidermidis Candidal urinary tract infection Ileus (HCC) Hypokalemia CLABSI (central line-associated bloodstream infection) Acute pulmonary edema (HCC) Abscess Bacteremia not present on admission PLAN: will discuss plan with staff surgeon - Dr. Cr - Pain control: PO with IV - Card/Resp: CXR 09/08 demonstrated pulmonary edema. > Titrate O2 as able - Diet/FEN: CLD > NGT Removed on rounds 09/09. > TPN resumed on 09/14 > Minimal colostomy output associated with vomiting 09/16 - GI: bowel regimen, zofran prn - : Salomon catheter with antispasmodics in place. Right and Left NT in place. - Renal: Cr 0.61. Replete lytes prn - Heme/ID: Oral Vanc. WBC 17.0 (17.7) > ID consulted, appreciate recs > De-escalated to IV vancomycin only 09/11 > 2u pRBC intraop > 2u pRBC 09/06. > 09/08 PICC line blood culture: Staph epidermidis, susceptible to vanc > 09/08 left arm blood cultures: ngtd x5 > Remove PICC Line 09/09 > 09/10 blood cultures: ngtd x4 > 09/13 Hgb 8.8 > CT obtained 09/12 - partial SBO within hernia, mildly complex fluid collection along anterior abdominal wall, right rectus sheath hematoma. >09/13 Rapid Responded 2x w/ worsening leukocytosis, broadened to cefepime, fluconazole, vanc and flagy >09/15 transitioned to dapto, IV Vanc D/C'd > Current abx per ID: dapto, micafungin, cefepime, flagyl, PO vanc - PICC placed 09/12 for access - CANDLE MOLDER: lasix, bupropion, synthroid - Nicoderm patch and gum - OOB/Amb - Dispo: Continue inpatient care, awaiting final cultures, ID plan, placement Prophylaxis Review: - DVT: SCD's, Lovenox - Catheter: Yes - Abx: Yes Nishant Perry MD PGY-3 Urology Please page urology source water protection specialist with questions ATTESTATION I personally performed the jurado portions of the E/M visit, discussed case with re sident and concur with resident documentation of history, physical exam, assessm ent, and treatment plan unless otherwise noted. Patient did have some emesis and minimal colostomy output yesterday. However, s he is feeling much better today. Will continue current inpatient care and monit or her oral intake. Staff name: Martin Cr MD Date: 09/17/2020 SUBJECTIVE: Patient had minimal colostomy output and developed nausea with vomiting in the e vening. Feeling better this morning. Pain well controlled. Ambulating. OBJECTIVE: Vital Signs: Most Recent Vital Signs: Past 24 Ho urs BP: 132/61 (09/17 353) Temp: 36.9 C (98.4 F) (09/17 353) Pulse: 87 (09/17 353) Respirations: 16 PER MINUTE (09/17 353) SpO2: 94 % (09/17 353) BP: (112-144)/(42-70) Temp: [36.9 C (98.4 F)-37.4 C (99.4 F)] Pulse: [81-91] Respirations: [16 PER MINUTE-20 PER MINUTE] SpO2: [92 %-95 %] General: Alert & oriented, no acute distress Pulm: non-labored on 2L NC CV: Regular rate Abd: Soft, appropriately tender, distention improved, LLQ j-vac on suction drain ing dark brown blood Incisions/Wounds: Appropriately tender to palpation. Midline incision stapled, s erosang drainage from inferior portion of incision. HEMA SS. Colostomy with minima l liquid stool Extremities: No edema, SCD's in place : Salomon catheter in place draining clear yellow urine. Right NT draining clear yellow urine. Left NT draining clear yellow urine. Labs: Hematology Chemistry Recent Labs 09/17/20455 WBC 17.0* HGB 8.4* PLTCT 557* Recent Labs 09/17/20455 NA 139 K 4.6 CL 108 CO2 25 BUN 18 CR 0.61 GFR >60 GLU 107* CA 8.3* PO4 3.4 Intake/Output: Date 09/16/20700 - 09/17/20699 09/17/20 0701 - 09/18/20 0700 Shift 9092-8765 5411-6792 24 Hour Total 0740-7713 4838-2405 24 Hour Total INTAKE P.O. 0 480 480 Other 20 20 40 Shift Total(mL/kg) 20(0.3) 500(6.8) 520(7.1) OUTPUT Urine(mL/kg/hr) 2400(2.7) 925(1) 3325(1.9) Urine 0 0 Urine Output (ml) (Indwelling Urinary Catheter 09/04/20 ) 150 0 150 Urine Output (ml) (NEPHROSTOMY TUBE 06/29/20 0828 Flank, Right Lower Lateral 8 FR) 6207 328 0781 Urine Output (ml) (NEPHROSTOMY TUBE 06/29/20 0828 Flank, Left Lower Lateral 8 FR) 5167 650 7139 Emesis 200 200 Emesis 200 200 Drains 180 110 290 Drain Output (ml) (J-Vac Drain 09/13/20 1710 Left;Mid Abdomen #2) 100 50 150 Drain Output (ml) (Colostomy 09/04/20 1419 Upper Right Quadrant) 0 25 25 Drain Output (ml) (Giovanni Santoro Drain 09/04/20 1419 Anterior Abdomen #1) 80 3 5 115 Shift Total(mL/kg) 2580(35.1) 1235(16.8) 3815(51.9) NET -2560 -735 -3295 Weight (kg) 73.5 73.5 73.5 73.5 73.5 73.5 Malnutrition Details: * Jane Patel, RN - 09/16/2020 7:43 PM CDT This RN notified Urology Nishant Perry MD that pt colostomy output in last 24 hours was 50 mL. * Martin Cr MD - 09/16/2020 9:38 AM CDT Urology Progress Note 09/16/2020 ASSESSMENT: Carlos Alberto Torres is a 70 y.o. Female with large colovesical/vaginal fistula s/p multiple surgeris for complications from diverticulitis now s/p ex-lap, fist benjy excision, partial cystectomy, transverse end colostomy complicated by right internal iliac vein injury LOS: 12 days ACTIVE PROBLEMS: Principal Problem: Colovesical fistula Active Problems: Acute blood loss anemia J LUIS (acute kidney injury) (HCC) Malnutrition (HCC) Bacteremia due to methicillin resistant Staphylococcus epidermidis Candidal urinary tract infection Ileus (HCC) Hypokalemia CLABSI (central line-associated bloodstream infection) Acute pulmonary edema (HCC) Abscess Bacteremia not present on admission PLAN: will discuss plan with staff surgeon - Dr. Cr - Pain control: PO with IV - Card/Resp: CXR 09/08 demonstrated pulmonary edema. > Titrate O2 as able - Diet/FEN: Regular Diet > NGT Removed on rounds 09/09. > TPN resumed on 09/14 - GI: bowel regimen, zofran prn - : Salomon catheter with antispasmodics in place. Right and Left NT in place. - Renal: Cr 0.65. Replete lytes prn - Heme/ID: Oral Vanc. WBC 17.7 (17.3) (21.1) > ID consulted, appreciate recs > De-escalated to IV vancomycin only 09/11 > 2u pRBC intraop > 2u pRBC 09/06. > 09/08 PICC line blood culture: Staph epidermidis, susceptible to vanc > 09/08 left arm blood cultures: ngtd x5 > Remove PICC Line 09/09 > 09/10 blood cultures: ngtd x4 > 09/13 Hgb 8.8 > CT obtained 09/12 - partial SBO within hernia, mildly complex fluid collection along anterior abdominal wall, right rectus sheath hematoma. >09/13 Rapid Responded 2x w/ worsening leukocytosis, broadened to cefepime, fluconazole, vanc and flagy >09/15 transitioned to dapto, IV Vanc D/C'd > Current abx per ID: dapto, micafungin, cefepime, flagyl, PO vanc - PICC placed 09/12 for access - CANDLE MOLDER: lasix, bupropion, synthroid - Nicoderm patch and gum - OOB/Amb - Dispo: Continue inpatient care, awaiting final cultures, ID plan, placement Prophylaxis Review: - DVT: SCD's, Lovenox - Catheter: Yes - Abx: Yes Chepe Randhawa MD PGY-5 Urology Please page urology source water protection specialist with questions ATTESTATION I personally performed the jurado portions of the E/M visit, discussed case with re sident and concur with resident documentation of history, physical exam, assessm ent, and treatment plan unless otherwise noted. Staff name: Martin Cr MD Date: 09/16/2020 SUBJECTIVE: No acute events overnight. Tolerating regular diet, had grilled cheese yesterday . Denies nausea or emesis. Some abdominal pain overnight, resolved this morning. Ambulated some yesterday. OBJECTIVE: Vital Signs: Most Recent Vital Signs: Past 24 Ho urs BP: 128/66 (09/16 899) Temp: 37.4 C (99.4 F) (09/16 899) Pulse: 85 (09/16 899) Respirations: 18 PER MINUTE (09/16 899) SpO2: 94 % (09/16 899) BP: (105-128)/(44-66) Temp: [37 C (98.6 F)-37.4 C (99.4 F)] Pulse: [78-85] Respirations: [16 PER MINUTE-19 PER MINUTE] SpO2: [93 %-96 %] General: Alert & oriented, no acute distress Pulm: non-labored on 2L NC CV: Regular rate Abd: Soft, appropriately tender, distention improved, LLQ j-vac on suction drain ing dark brown blood Incisions/Wounds: Appropriately tender to palpation. Midline incision stapled, s erosang drainage from inferior portion of incision. HEMA SS. Colostomy with liquid stool Extremities: No edema, SCD's in place : Salomon catheter in place draining clear yellow urine. Right NT draining clear yellow urine. Left NT draining clear yellow urine. Labs: Hematology Chemistry Recent Labs 09/16/20 0357 WBC 17.7* HGB 7.9* PLTCT 472* Recent Labs 09/16/20 0357 NA 137 K 4.4 CL 108 CO2 23 BUN 15 CR 0.63 GFR >60 GLU 122* CA 8.0* PO4 2.6 Intake/Output: Date 09/15/20700 - 09/16/20 0709/16/20700 - 09/17/20 07 Shift 8481-1944 2125-5569 24 Hour Total 1900-0700 24 Hour Total INTAKE P.O. 717 717 I.V.(mL/kg/hr) 2943.6(3.3) 2943.6(1.7) Other 50 20 70 Shift Total(mL/kg) 2993.6(40.7) 737(10) 3730.6(50.8) OUTPUT Urine(mL/kg/hr) 850(1) 1325(1.5) 2175(1.2) Urine Output (ml) (Indwelling Urinary Catheter 09/04/20 ) 200 225 425 Urine Output (ml) (NEPHROSTOMY TUBE 06/29/20 0828 Flank, Right Lower Lateral 8 FR) 275 350 625 Urine Output (ml) (NEPHROSTOMY TUBE 06/29/20 0828 Flank, Left Lower Lateral 8 FR) 135 891 5168 Drains 285 481 9007 Drain Output (ml) (J-Vac Drain 09/13/20 1710 Left;Mid Abdomen #2) 190 110 300 Drain Output (ml) (Colostomy 09/04/20 1419 Upper Right Quadrant) 400 50 450 Drain Output (ml) (Giovanni Santoro Drain 09/04/20 1419 Anterior Abdomen #1) 200 55 255 Shift Total(mL/kg) 1640(22.3) 1540(21) 3180(43.3) NET 1353.6 -803 550.6 Weight (kg) 73.5 73.5 73.5 73.5 73.5 73.5 Malnutrition Details: * Martha Dozier OT - 09/15/2020 3:20 PM CDT OCCUPATIONAL THERAPY PROGRESS NOTE Name: Carlos Alberto Torres : 1950 Age: 70 y.o. Admission Date: 09/04/2020 LOS: 11 days Mobility Patient Turn/Position: Supine Progressive Mobility Level: Stand Level of Assistance: Assist X1 Assistive Device: Walker Time Tolerated: 11-30 minutes Activity Limited By: Pain;Weakness;Fatigue Subjective Pertinent Dx per Physician: 70 y.o. Female with large colovesical/vaginal fistul a s/p multiple surgeris for complications from diverticulitis now s/p ex-lap, fi stula excision, partial cystectomy, transverse end colostomy complicated by righ t internal iliac vein injury Precautions: Falls Pain / Complaints: Patient agrees to participate in therapy;Patient premedicated Pain Location: Abdomen Pain Level Current: 8 Very severe pain Comments: Pt supine in bed with nursing staff present upon OT arrival. Pt supine in bed with bed alarm set upon OT exit. Objective Psychosocial Status: Willing and Cooperative to Participate Home Living Type of Home: House Home Layout: One Level Bathroom Shower / Tub: Tub/Shower Unit Prior Function Level Of [place]: Independent with ADLs and functional transfers;Independen t with homemaking w/ ambulation Lives With: Alone Other Function Comments: pt SO is currently hospitalized, daughters are supporti ve but unable to provide consistent assist ADL's LE Dressing Assist: Total Assist LE Dressing Deficits: Don/Doff R Sock;Don/Doff L Sock Comment: Pt required total assist to sho bilateral LE socks, pt unable to compl ete figure-4 technique due to increased pain. Pt declined completion of addition al ADLs this date. Agreeable to functional mobility. ADL Mobility Bed Mobility: Supine to Sit: Minimal assist Bed Mobility: Sit to Supine: Minimal assist Bed Mobility Comments: HOB elevated and assist at trunk to position upright Transfer Type: Sit to/from stand Transfer: Assistance Level: Standby assist;To/from;Bed Transfer: Assistive Device: Roller walker End of Activity Status: In bed;Instructed patient to request assist with mobilit y;Instructed patient to use call light;Nursing notified Transfer Comments: Pt able to stand for ~1 minute with stand by assist, requeste d to sit due to increased pain and fatigue. O2 sat dropped 87 while standing, re turned sitting EOB Activity Tolerance Endurance: 2/5 Tolerates 10-20 Minutes Exercise w/Multiple Rests Comment: cues for deep breathing Education Goal Formulation: With Patient Assessment Assessment: Decreased ADL Status;Decreased Endurance;Decreased Self-Care Trans;D ecreased High-Level ADLs Comments: Pt demonstrated increased pain and decreased activity tolerance/endura nce impacting her ability to complete ADLs this date. Pt continues to benefit fr om therapy services in order to improved endurance and strength required for ADL s AM-PAC 6 Clicks Daily Activity Inpatient Putting on and taking off regular lower body clothes?: A Lot Bathing (Including washing, rinsing, drying): A Lot Toileting, which includes using toilet, bedpan, or urinal: Total Putting on and taking off regular upper body clothing: A Little Taking care of personal grooming such as brushing teeth: None Eating meals?: None Daily Activity Raw Score: 16 Standardized (t-scale) score: 35.96 CMS 0-100% Score: 53.32 CMS G Code Modifier: CK Plan OT Frequency: 5x/week OT Plan for Next Visit: LB dressing, progress functional endurance ADL Goals Patient Will Perform All ADL's: w/ Stand By Assist Functional Transfer Goals Pt Will Perform All Functional Transfers: w/ Stand By Assist OT Discharge Recommendations Recommendation: Inpatient setting Therapist: SHAUN Bush/Valerie [id number] Date: 09/15/2020 * Clara Shrestha - 09/15/2020 1:55 PM CDT PHYSICAL THERAPY NOTE Name: Carlos Alberto Torres : 1950 Age: 70 y.o. Admission Date: 09/04/2020 LOS: 11 days 1310: Patient attempted for PT; MD in room with RN exiting reporting patient get ting ready to eat lunch. Plan for therapy to return back in 30min. 1350: Patient declined to participate despite encouragement and education about the role and benefits of physical therapy. Patient c/o nausea and pain stating n ot able to do therapy today. Per RN, abdominal binder provided and placed on pat ient to keep on at all times. Patient encouraged to continue walking in room wit h nursing staff over weekend; RN updated on conversation. Physical therapy will continue to follow and provide intervention as indicated. Therapist: Clara Shrestha Date: 09/15/2020 * Gerson Duncan MD - 09/15/2020 10:09 AM CDT Colorectal Surgery Daily Progress Note Today's Date: 09/15/2020 Name: Carlos Alberto Torres Admission Date: 09/04/2020 (LOS: 11 days) Assessment: 70 y.o. female w/ diverticulitis and complex GI and urologic surgica l hx, w recurrent colovesical and rectovaginal fistulas now s/p takedown of rect ovesical fistula, end transverse colostomy, R internal iliac vein injury and lig ation, primary bladder repair, left sided ureter stent placement. OR date: 09/04/2020 Principal Problem: Colovesical fistula Active Problems: Acute blood loss anemia J LUIS (acute kidney injury) (HCC) Malnutrition (HCC) Bacteremia due to methicillin resistant Staphylococcus epidermidis Candidal urinary tract infection Ileus (HCC) Hypokalemia CLABSI (central line-associated bloodstream infection) Acute pulmonary edema (HCC) Plan: - No dietary restrictions, continue TPN until adequate nutrition PO - Obtain calorie count - Abdominal binder ordered yesterday but not in place, will ensure placed today - Ostomy is pink and viable with some output, please reach out if concerns regar ding change in appearance - Remainder of care per primary team. - Plan discussed with Dr. Chow _ Subjective: No acute events overnight. Tolerating small amount of PO, mild nausea with meds but resolved this AM, no emesis. Ostomy productive. Objective: BP: (112-128)/(36-74) Temp: [36.5 C (97.7 F)-37.8 C (100 F)] Pulse: [73-86] Respirations: [16 PER MINUTE-18 PER MINUTE] SpO2: [92 %-97 %] Lab Results Component Value Date/Time HGB 7.4 (L) 09/15/2020 0400 WBC 17.3 (H) 09/15/2020 0400 ] Lab Results Component Value Date/Time NA 139 09/15/2020 0400 K 3.6 09/15/2020 0400 CL 108 09/15/2020 0400 CO2 22 09/15/2020 0400 BUN 15 09/15/2020 0400 CR 0.65 09/15/2020 0400 ] Physical Exam: GEN: NAD, Alert CARDIO: Normal rate 70s, regular rhythm PULM: No respiratory distress, on 1L NC ABD: Soft, non-distended, appropriately TTP, incision c/d/i, ostomy pink and via ble with ostomy output. JVAC in place with sanguinous output EXT: No cyanosis or edema NEURO: Gross motor in UE and LE b/l. Sensory intact. Gerson Duncan MD Team Pager: # [phone] Associated attestation - Anurag Chow MD - 09/15/2020 7:07 PM CDT ATTESTATION I personally performed the jurado portions of the E/M visit, discussed case with re sident and concur with resident documentation of history, physical exam, assessm ent, and treatment plan unless otherwise noted. Staff name: Anurag Chow MD Date: 09/15/2020 * Juany Ferguson MD - 09/15/2020 7:46 AM CDT Infectious Diseases Progress Note Today's Date: 09/15/2020 Admission Date: 09/04/2020 Reason for this consultation: complex patient has seen ID. Currently on rocephin , flagyl, fluconazole, and PO vanc for recurrent UTIs d/t colovesical fistula. H ad colovesical fistula takedown with partial cystectomy 09/04. Seeking recs on en d dates for abx or any need to change abx Type of Consultation: Co-Management w/Signed Orders Assessment: Carlos Alberto Torres is a 70 y.o. female with a medical history of diverticuliti s in 2011 leading to surgical history for and due to recurrent fistulization, mo st recently colovaginal and coloureteral/vesical. She has had recurrent UTI's du e to feculent urine and has been on and off several antibiotics over the past se veral years and especially since Dec, 2019. She has bilateral nephrostomy tubes in place following severe infection in June with VRE, Bacteroides, Brenda glab rata and Brenda parapsilosis on cultures. She received 14 days of daptomycin, m icafungin, metronidazole and a cephalosporin and was then transitioned to IV cef triaxone, metronidazole, fluconazole 200 mg daily until definitive surgery due t o high risk for severe infection. She had a first occurrence of C. Diff in June and has been on ppx PO vancomycin following treatment course. She was admitted 09/04 following colovesical fistula takedown, partial cystectomy, infected mesh e xcision and colectomy with colostomy creation. NGT placed on 09/07 d/t ileus and hospitalization has since been complicated by fever 09/08 AM and increasing O2 re quirement but appeared to be more volume overload on CXR. BCx from time of fever positive for MRSE from PICC BCx so removed PICC and treating for CLABSI w/ vanc omycin for 7d. Stopped other antimicrobials 09/11, but patient w/ rising WBC 09/[address] abd/pelv demonstrated fluid collection along anterior abdominal wall joana und incision site, s/p IR drain placement 09/13 w/ E. Faecium, Pseudomonas aerugi nosa and Brenda glabrata growing from abscess cx. Anticipate continuing on dapt o/cefepime/metronidazole/micafungin for ~2w or until fluid collection resolved. ID Problem List 1. 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 Sepsis - 2/2 MRSE CLABSI 09/08, now w/ suspected postop wound infection/fluid collection on CT 09/12 3. Intraabdominal abscess at surgical site - E. Faecium, P. Aeruginosa, C. glabr margret 4. MRSE CLABSI - on 09/08 BCx, PICC removed 09/09 5. Colostomy creation 09/04 6. Salomon catheter placed 09/04 7. Recent polymicrobial pyelonephritis - C. Glabrata, C. Parapsilosis, VRE, Bact eroides, Eggerthella w/ Intra-abdominal abscess 8. 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 B/L nephrostomy tubes placed in June, 10. Recent C. Diff colitis on PO Vanc BID 11. Poor PO intake on TPN 12. Ileus (09/07) 13. Antibiotic allergies: Bactrim- Hives 14. Acute hypoxic respiratory failure 15. Volume overload Recommendations: 1. Stop vancomycin and Start IV daptomycin 10mg/kg q24h for presumed VRE 2. Continue IV cefepime 2g q8h renally dosed and metronidazole 500mg BID 3. Stop fluconazole and start IV micafungin 100mg daily based on prior C. Glabra ta susceptibility 4. F/u cultures. 5. Continue drainage of anterior abdominal wall fluid collection. Anticipate con tinuing abx for ~2 weeks or until collection completely drained. 6. Continue PO vancomycin for C.diff ppx, will plan to continue for 2-days past end of other antimicrobials 7. Nephrostomy tube management per Urology 8. Low suspicion for pneumonia, suspect more atelectasis w/ abdominal pain. Enco uraged incentive spirometry. Thank you for involving us in this patient's care. ID will continue to follow patient in person again on Friday with Dr. India Hassan taking over the patient 's ID care. If questions or concerns arise over the weekend, please contact me b y Voalte or pager or page the ID fellow on-call ([phone]). Juany Ferguson MD Pager [phone] Please contact preferentially via Voalte Interval Hx/Subjective Low grade temps to 100 but no chills or sweats. VSS. Still on 1-2L O2 today. She denies cough or SOB. She's having increased abdominal pain this AM with trying to wear the abdominal binder. Good output from midline drain but also having some drainage from around drain s ite. Having some nausea w/ pain but no vomiting or diarrhea. No pain in L leg today, improved with heating pad yesterday. Antimicrobial Start date End date Fluconazole 07/14-09/11; 09/13 Active Cefepime 07/11 07/14 Cefpodoxime 07/05 07/11 Flagyl 07/03-09/11; 09/13 Active Daptomycin 07/05 07/14 Micafungin 07/03 07/14 PO Vancomycin 07/05 Active Ceftriaxone 07/03-07/05; 07/14 09/11 Meropenem 06/28 07/03 Linezolid 06/28 07/05 IV Vancomycin 06/28; 09/09 active Azithromycin Unknown, ~06/22 06/26 Ciprofloxacin 06/20 ~06/22 Cefepime 09/13 active Estimated Creatinine Clearance: 68.9 mL/min (based on SCr of 0.65 mg/dL). Medications Scheduled Meds:buPROPion XL (WELLBUTRIN XL) tablet 150 mg, 150 mg, Oral, QDAY cefepime (MAXIPIME) 2 g in sodium chloride 0.9% (NS) 100 mL IVPB (MB+), 2 g, Int ravenous, Q8H* cetirizine (ZyrTEC) tablet 10 mg, 10 mg, Oral, QDAY COVID-19 vacc,mRNA (MODERNA) PF immunization 100 mcg, 100 mcg, Intramuscular, New Car Inspector [START ON 09/16/2020] DAPTOmycin (CUBICIN) injection 550 mg, 10 mg/kg (Adjusted), Intravenous, Q24H* enoxaparin (LOVENOX) syringe 40 mg, 40 mg, Subcutaneous, QDAY() fluconazole (DIFLUCAN) tablet 200 mg, 200 mg, Oral, QDAY gabapentin (NEURONTIN) capsule 300 mg, 300 mg, Oral, BID levothyroxine (SYNTHROID) tablet 50 mcg, 50 mcg, Oral, QDAY methocarbamoL (ROBAXIN) tablet 750 mg, 750 mg, Oral, TID metroNIDAZOLE (FLAGYL) 500 mg IVPB 100 mL, 500 mg, Intravenous, Q8H* nicotine (NICODERM CQ STEP 2) 14 mg/day patch 1 patch, 1 patch, Transdermal, Q24 H* oxybutynin XL (DITROPAN XL) tablet 15 mg, 15 mg, Oral, QDAY pantoprazole DR (PROTONIX) tablet 40 mg, 40 mg, Oral, QDAY scopolamine (TRANSDERM-SCOP) 1mg over 3 days patch 1 patch, 1 patch, Transdermal , Q72H* And Patch Documentation - Scopolamine base 1MG/72HR 1 patch, 1 patch, Transdermal, B ID polyethylene glycol 3350 (MIRALAX) packet 17 g, 1 packet, Oral, BID potassium chloride in water IVPB 10 mEq, 10 mEq, Intravenous, Q2H* Followed by potassium chloride in water IVPB 10 mEq, 10 mEq, Intravenous, Q2H* Followed by potassium chloride in water IVPB 10 mEq, 10 mEq, Intravenous, Q2H* Followed by potassium chloride in water IVPB 10 mEq, 10 mEq, Intravenous, Q2H* senna/docusate (SENOKOT-S) tablet 1 tablet, 1 tablet, Oral, BID sodium chloride PF 0.9% flush 10 mL, 10 mL, Flush, FLUSH TID sodium chloride PF 0.9% syringe 10 mL, 10 mL, Intravenous, BID vancomycin (FIRVANQ) oral solution 125 mg, 125 mg, Oral, BID Continuous Infusions: Adult Continuous Parenteral Nutrition (PN) 75 mL/hr at 09/14/202117 PRN and Respiratory Meds:acetaminophen Q6H PRN, aluminum/magnesium hydroxide PRN , fentaNYL citrate PF Q1H PRN, HYDROcodone/acetaminophen Q6H PRN, HYDROmorphone (DILAUDID) injection Q2H PRN, hyoscyamine Q4H PRN, lidocaine PF PRN, melatonin Q HS PRN, nalOXone PRN, nicotine polacrilex Q1H PRN, [DISCONTINUED] ondansetron Q6 H PRN OR ondansetron (ZOFRAN) IV Q6H PRN, phenoL PRN, prochlorperazine Q6H P RN, simethicone Q6H PRN Physical Examination Vital Signs: Most Recent Vital Signs: 24 H our Range BP: 112/36 (09/15 348) Temp: 37.1 C (98.7 F) (09/15 348) Pulse: 74 (09/15 348) Respirations: 17 PER MINUTE (09/15 348) SpO2: 93 % (09/15 348) BP: (94-128)/(35-74) Temp: [36.5 C (97.7 F)-37.8 C (100 F)] Pulse: [72-86] Respirations: [16 PER MINUTE-20 PER MINUTE] SpO2: [92 %-97 %] General appearance: Alert, oriented x 3, appears fatigued, elderly fem desiree, in NAD HENT: NC/AT, facial features symmetrical Eyes: Anicteric, EOMI Lungs: diminished BS in bases, no rhonchi, nonlabored Heart: Regular rhythm, reg rate, no murmur, rub or gallop Abdomen: RLQ colostomy in place w/ liquid stool in bag. Midline incision well ap proximated with erum, HEMA drain in place w/ dark serous fluid, L sided abdomin al hernia. Hypoactive bowel sounds. Mild TTP around incision and drain. Ext: No clubbing, cyanosis, trace BLE edema, not hot or swollen joints. No TTP L LE but reporting pain. Skin: No rashes/lesions Psych: Appropriate mood and affect Lines: RUE PICC c/d/i Drains/tubes: B/L nephrostomy tubes with clear yellow urine, salomon catheter with dark urine, LLQ HEMA drain with bloody drainage. RLQ colostomy with liquid stool in place. Lab Review Hematology Recent Labs 09/13/2025709/14/2041609/15/20 0400 WBC 21.1* 19.4* 17.3* HGB 8.8* 7.5* 7.4* HCT 27.1* 23.3* 23.3* PLTCT 432* 410* 432* Chemistry Recent Labs 09/12/205 09/13/2025709/14/20 0417 09/15/20 0400 NA 135* 134* 136* 139 K 4.2 4.2 3.6 3.6 CL 102 100 105 108 CO2 23 24 23 22 BUN 12 12 15 15 CR 0.89 0.85 0.75 0.65 GFR >60 >60 >60 >60 GLU 95 86 109* 116* CA 7.8* 8.0* 7.4* 7.7* PO4 3.3 3.5 3.3 3.0 ALBUMIN 2.3* -- -- -- ALKPHOS 141* -- -- -- AST 18 -- -- -- ALT 10 -- -- -- TOTBILI 0.9 -- -- -- Microbiology, Radiology and other Diagnostics Review Microbiology: 09/08 BCx x2 w/ 1/2 MRSE (positive from PICC, peripheral negative) 09/10 BCx x2 NGTD 09/13 abscess cx w/ E. Faecium, Pseudomonas aeruginosa, C. glabrata; g/s w/ rare PMNs, moderate GPC resembling strep Microbiology data reviewed. Radiology: 09/08 CXR 1. Placement of gastric tube as described. 2. Small left greater than right pleural effusions with bibasilar left greater than right opacities, which may represent atelectasis and/or pneumonia. 3. Mild diffuse bilateral interstitial opacities, likely representing pulmonary edema. 09/12 CT chest/abd/pelv CHEST: 1. Bilateral lower lobe dependent consolidations and air bronchograms likely atelectasis rather than pneumonia. Trace amount of dependent pleural fluid. 2. Coronary artery disease. 3. Mild emphysema. 4. A few tiny pulmonary nodules are noted which are likely benign. However given the [...] gas. 2. Development of a mixed density mildly complex fluid collection along the anterior abdominal [...] mildly dilated gallbladder. Pericholecystic fluid is likely secondary [...] on short interval follow-up imaging is suggested. Pertinent radiology images viewed. * Marti Edouard MD - 09/15/2020 5:57 AM CDT Urology Progress Note 09/15/2020 ASSESSMENT: Carlos Alberto Torres is a 70 y.o. Female with large colovesical/vaginal fistula s/p multiple surgeris for complications from diverticulitis now s/p ex-lap, fist benjy excision, partial cystectomy, transverse end colostomy complicated by right internal iliac vein injury LOS: 11 days ACTIVE PROBLEMS: Principal Problem: Colovesical fistula Active Problems: Acute blood loss anemia J LUIS (acute kidney injury) (HCC) Malnutrition (HCC) Bacteremia due to methicillin resistant Staphylococcus epidermidis Candidal urinary tract infection Ileus (HCC) Hypokalemia CLABSI (central line-associated bloodstream infection) Acute pulmonary edema (HCC) Bacteremia not present on admission PLAN: will discuss plan with staff surgeon - Dr. Rodriguez - Pain control: PO with IV - Card/Resp: CXR 09/08 demonstrated pulmonary edema. > Titrate O2 as able - Diet/FEN: Regular Diet > NGT Removed on rounds 09/09. > TPN resumed on 09/14 - GI: bowel regimen, zofran prn - : Salomon catheter with antispasmodics in place. Right and Left NT in place. - Renal: Cr 0.65. Replete lytes prn - Heme/ID: Oral Vanc. WBC 17.3 (21.1) > ID consulted, appreciate recs > De-escalated to IV vancomycin only 09/11 > 2u pRBC intraop > 2u pRBC 09/06. > 09/08 PICC line blood culture: Staph epidermidis, susceptible to vanc > 09/08 left arm blood cultures: ngtd x5 > Remove PICC Line 09/09 > 09/10 blood cultures: ngtd x4 > 09/13 Hgb 8.8 > CT obtained 09/12 - partial SBO within hernia, mildly complex fluid collection along anterior abdominal wall, right rectus sheath hematoma. >09/13 Rapid Responded 2x w/ worsening leukocytosis, broadened to cefepime, fluconazole, vanc and flagy >09/15 transitioned to dapto, IV Vanc D/C'd - PICC placed 09/12 for access - CANDLE MOLDER: lasix, bupropion, synthroid - Nicoderm patch and gum - OOB/Amb - Dispo: Continue inpatient care Prophylaxis Review: - DVT: SCD's, Lovenox - Catheter: Yes - Abx: Yes Marti Edouard MD PGY-1 Urology Please page urology source water protection specialist with questions SUBJECTIVE: No acute events overnight. Pt tolerating regular diet with mild nausea but no vo miting. Has ambulated with walker. OBJECTIVE: Vital Signs: Most Recent Vital Signs: Past 24 Ho urs BP: 112/36 (09/15 348) Temp: 37.1 C (98.7 F) (09/15 348) Pulse: 74 (09/15 348) Respirations: 17 PER MINUTE (09/15 348) SpO2: 93 % (09/15 348) BP: (94-128)/(35-74) Temp: [36.5 C (97.7 F)-37.8 C (100 F)] Pulse: [72-86] Respirations: [16 PER MINUTE-20 PER MINUTE] SpO2: [92 %-97 %] General: Alert & oriented, no acute distress Pulm: non-labored on 2L NC CV: Regular rate Abd: Soft, appropriately tender, distention improved, LLQ j-vac on suction drain ing dark brown blood Incisions/Wounds: Appropriately tender to palpation. Midline incision stapled, s erosang drainage from inferior portion of incision. HEMA SS. Colostomy with liquid stool Extremities: No edema, SCD's in place : Salomon catheter in place draining clear yellow urine. Right NT draining clear yellow urine. Left NT draining clear yellow urine. Labs: Hematology Chemistry Recent Labs 09/15/20 0400 WBC 17.3* HGB 7.4* PLTCT 432* Recent Labs 09/15/20 0400 NA 139 K 3.6 CL 108 CO2 22 BUN 15 CR 0.65 GFR >60 GLU 116* CA 7.7* PO4 3.0 Intake/Output: Date 09/14/20700 - 09/15/2069909/15/20700 - 09/16/20 07 Shift 1324-2294 1240-3948 24 Hour Total 1900-0700 24 Hour Total INTAKE P.O. 240 240 Other 20 20 40 Shift Total(mL/kg) 20(0.3) 260(3.5) 280(3.8) OUTPUT Urine(mL/kg/hr) 370(0.4) 750 1120 Urine Output (ml) (Indwelling Urinary Catheter 09/04/20 ) 0 50 50 Urine Output (ml) (NEPHROSTOMY TUBE 06/29/20 0828 Flank, Right Lower Lateral 8 FR) 200 300 500 Urine Output (ml) (NEPHROSTOMY TUBE 06/29/20 0828 Flank, Left Lower Lateral 8 FR) 170 400 570 Drains 480 70 550 Drain Output (ml) (J-Vac Drain 09/13/20 1710 Left;Mid Abdomen #2) 280 30 310 Drain Output (ml) (Colostomy 09/04/20 1419 Upper Right Quadrant) 150 0 150 Drain Output (ml) (Giovanni Santoro Drain 09/04/20 1419 Anterior Abdomen #1) 50 4 0 90 Shift Total(mL/kg) 850(11.6) 820(11.2) 1670(22.7) NET -705 -793 -1391 Weight (kg) 73.5 73.5 73.5 73.5 73.5 73.5 Malnutrition Details: Associated attestation - Lorena Rodriguez MD - 09/16/2020 3:16 PM CDT Attestation I saw and evaluated pt with the resident on rounds and performed the jurado portion s of the e/m. I agree with the above assessment and plan. Pt reports nausea an d vomiting have improved. She tolerated PO intake today. She stood today, did not ambulate much. Encouraged her to continue to work with therapy. Continue I V abx as per ID, appreciate their help with pt. Continue inpt care. Lorena Rodriguez MD, FACS * Angelica Sidhu OT - 09/14/2020 3:15 PM CDT OCCUPATIONAL THERAPY NOTE Name: Carlos Alberto Torres : 1950 Age: 70 y.o. Admission Date: 09/04/2020 LOS: 10 days Attempted to see pt at this time. Pt declines all ADLs at this time, states incr eased fatigue from PT session earlier and declines any activity or mobility. OT provided education and encouragement, pt continues to adamantly decline. OT to c ontinue to follow. Therapist: SHAUN Senior/Valerie [id number] Date: 09/14/2020 * Clara Shrestha - 09/14/2020 1:40 PM CDT PHYSICAL THERAPY PROGRESS NOTE Name: Carlos Alberto Torres : 1950 Age: 70 y.o. Admission Date: 09/04/2020 LOS: 10 days Mobility Progressive Mobility Level: Walk in room Distance Walked (feet): 40 ft Level of Assistance: Assist X1 Assistive Device: Walker Time Tolerated: 11-30 minutes Activity Limited By: Pain;Weakness;Fatigue Subjective Significant hospital events: 70 y.o. Female with large colovesical/vaginal fistu la s/p multiple surgeris for complications from diverticulitis now s/p ex-lap, f istula excision, partial cystectomy, transverse end colostomy complicated by rig ht internal iliac vein injury Mental / Cognitive Status: Alert;Oriented;Cooperative Comments: 1L O2 NC Comments: x2 Nephrostomy drain, x1 HEMA; Abdominal drain Ambulation Assist: Independent Mobility in Community without Device Patient Owned Equipment: Roller Walker Home Situation: Lives h Roommate(Fiance) Type of Home: House Entry Stairs: No Stairs In-Home Stairs: No Stairs Comments: Patient reports her fiance is currently hospitalized at [facility] with COVID , so she is unsure if he will be able to assist her upon discharge (anticipating not). Her daughters live near but work during the day. Patient endorses history of one fall; knees buckled. Patient states she is open to discharging to inpati ent setting for further treatment if indicated, but only for short stay. 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 Bed Mobility/Transfer Bed Mobility: Supine to Sit: Moderate Assist;Head of Bed Elevated;Use of Rail;Re quires Extra Time Transfer Type: Sit to Stand Transfer: Assistance Level: From;Bed;Minimal Assist Transfer: Assistive Device: Roller Walker Transfers: Type Of Assistance: For Strength Deficit;For Balance;For Safety Consi derations End Of Activity Status: Up in Chair;Nursing Notified;Instructed Patient to Reque st Assist with Mobility;Instructed Patient to Use Call Light Gait Gait Distance: 40 feet Gait: Assistance Level: Minimal Assist Gait: Assistive Device: Roller Walker Gait: Descriptors: Swing-Through Gait;Decreased step length;Pace: Slow;No balanc e loss;Forward trunk flexion Activity Limited By: Complaint of Pain;Weakness Education Persons Educated: Patient Interventions: Repetition of Instructions Teaching Methods: Verbal Instruction Patient Response: Verbalized Understanding;More Instruction Required Topics: Plan/Goals of PT Interventions;Mobility Progression;Safety Awareness;Up with Assist Only;Importance of Increasing Activity;Ambulate With Nursing;Recomme nd Continued Therapy Assessment/Progress Impaired Mobility Due To: Pain;Decreased Activity Tolerance Impaired Strength Due To: Pain Assessment/Progress: Should Improve w/ Continued PT Patient tolerated session with mobility limited by pain and decreased activity t checo. Improved aroldo this date with encouraged on in room mobility with [facility] staff. AM-PAC 6 Clicks Basic Mobility Inpatient Turning from your back to your side while in a flat bed without using bed rails: A Little Moving from lying on your back to sitting on the side of a flatbed without using bedrails : A Lot Moving to and from a bed to a chair (including a wheelchair): A Little Standing up from a chair using your arms (e.g. wheelchair, or bedside chair): A Little To walk in hospital room: A Little Climbing 3-5 steps with a railing: A Lot Raw Score: 16 Standardized (T-scale) Score: 38.32 Basic Mobility CMS 0-100%: 47.12 CMS G Code Modifier for Basic Mobility: CK Functional Stages Basic Mobility Score Interpretation 34-51 Limited Mobility Indoors: Your score suggests significant difficulty in mo ving about independently and the need for assistance. You may be able to move a bout in a small area of your home that has been adapted to eliminate safety haza rds. You may have difficulty moving from a sitting to standing position, climbi ng stairs and you may have a great deal of difficulty moving about outdoors and in the community. Goals Goal Formulation: With Patient Patient Will Go Supine To/From Sit: w/ Stand By Assist Patient Will Transfer Bed/Chair: w/ Stand By Assist Patient Will Transfer Sit to Stand: w/ Stand By Assist Patient Will Ambulate: 151-200 Feet, w/ Walker, w/ Stand By Assist Plan Treatment Interventions: Mobility Training;Strengthening;ROM;Balance Activities; Coordination Training;Endurance Training Plan Frequency: 5 Days per Week PT Plan for Next Visit: Progress transfers, gait with walker, endurance PT Discharge Recommendations Recommendation: Inpatient setting Patient Currently Requires Equipment: Owns what is needed Therapist: Clara Shrestha Date: 09/14/2020 * Flora Sanderson, RD - 09/14/2020 11:13 AM CDT Nutrition Support Service (NSS) Progress Note Comment: Patient made NPO 09/13 and TPN resumed given persistent GI dysfunction. Double lumen PICC placed 09/12. Clear liquids restarted this am. Abdomen firm/ten edson/pain/nausea per nursing assessment 09/13 pm Current PN Formula: Non-standard, low-dextrose @ 75ml/hr to resumed 20:30 09/13/2 1 (Held since 09/09 AM) Diet Order: clear liquids (09/14) TF: n/a I/O: (incomplete) 50 / 1500ml UOP: 950ml HEMA: 100ml Colostomy: 350ml JVac: 10 0ml Meds: Scheduled Meds:acetaminophen (TYLENOL) tablet 650 mg, 650 mg, Oral, Q6H* buPROPion XL (WELLBUTRIN XL) tablet 150 mg, 150 mg, Oral, QDAY cefepime (MAXIPIME) 2 g in sodium chloride 0.9% (NS) 100 mL IVPB (MB+), 2 g, Int ravenous, Q12H* cetirizine (ZyrTEC) tablet 10 mg, 10 mg, Oral, QDAY COVID-19 vacc,mRNA (MODERNA) PF immunization 100 mcg, 100 mcg, Intramuscular, New Car Inspector enoxaparin (LOVENOX) syringe 40 mg, 40 mg, Subcutaneous, QDAY(21) fluconazole (DIFLUCAN) tablet 200 mg, 200 mg, Oral, QDAY gabapentin (NEURONTIN) capsule 300 mg, 300 mg, Oral, BID levothyroxine (SYNTHROID) tablet 50 mcg, 50 mcg, Oral, QDAY methocarbamoL (ROBAXIN) tablet 750 mg, 750 mg, Oral, TID metroNIDAZOLE (FLAGYL) 500 mg IVPB 100 mL, 500 mg, Intravenous, Q8H* nicotine (NICODERM CQ STEP 2) 14 mg/day patch 1 patch, 1 patch, Transdermal, Q24 H* oxybutynin XL (DITROPAN XL) tablet 15 mg, 15 mg, Oral, QDAY pantoprazole DR (PROTONIX) tablet 40 mg, 40 mg, Oral, QDAY scopolamine (TRANSDERM-SCOP) 1mg over 3 days patch 1 patch, 1 patch, Transdermal , Q72H* And Patch Documentation - Scopolamine base 1MG/72HR 1 patch, 1 patch, Transdermal, B ID polyethylene glycol 3350 (MIRALAX) packet 17 g, 1 packet, Oral, BID senna/docusate (SENOKOT-S) tablet 1 tablet, 1 tablet, Oral, BID sodium chloride PF 0.9% flush 10 mL, 10 mL, Flush, FLUSH TID vancomycin (FIRVANQ) oral solution 125 mg, 125 mg, Oral, BID vancomycin (VANCOCIN) 1,750 mg in sodium chloride 0.9% (NS) 285 mL IVPB, 1,750 m g, Intravenous, Q24H* Continuous Infusions: Adult Continuous Parenteral Nutrition (PN) PRN and Respiratory Meds:aluminum/magnesium hydroxide PRN, HYDROmorphone (DILAUD ID) injection Q2H PRN, hyoscyamine Q4H PRN, lidocaine PF PRN, melatonin QHS PRN, nalOXone PRN, nicotine polacrilex Q1H PRN, [DISCONTINUED] ondansetron Q6H PRN * *OR ondansetron (ZOFRAN) IV Q6H PRN, oxyCODONE Q4H PRN, phenoL PRN, prochlorpe razine Q6H PRN, simethicone Q6H PRN, vancomycin, pharmacy to manage Per Pharmacy Electrolyte Treatments: none given yesterday or so far today Pertinent Labs: Comprehensive Metabolic Profile Lab Results Component Value Date/Time NA 136 (L) 09/14/2020 04:17 AM K 3.6 09/14/2020 04:17 AM CL 105 09/14/2020 04:17 AM CO2 23 09/14/2020 04:17 AM GAP 8 09/14/2020 04:17 AM BUN 15 09/14/2020 04:17 AM CR 0.75 09/14/2020 04:17 AM GLU 109 (H) 09/14/2020 04:17 AM Lab Results Component Value Date/Time CA 7.4 (L) 09/14/2020 04:17 AM PO4 3.3 09/14/2020 04:17 AM ALBUMIN 2.3 (L) 09/12/2020 09:15 PM TOTPROT 5.8 (L) 09/12/2020 09:15 PM ALKPHOS 141 (H) 09/12/2020 09:15 PM AST 18 09/12/2020 09:15 PM ALT 10 09/12/2020 09:15 PM TOTBILI 0.9 09/12/2020 09:15 PM GFR >60 09/14/2020 04:17 AM GFRAA >60 09/14/2020 04:17 AM Lab Results Component Value Date MG 2.1 09/14/2020 Lab Results Component Value Date PO4 3.3 09/14/2020 Trimg/dl (09/05/20), 129mg/dl (09/08/20) FSBS: 86-119 mg/dl yesterday; 124 mg/dl this am Admit Weight (Kg): Weight: 64.9 kg (143 lb) (no source/suspect inaccurate); pt r eported chair weight at facility prior to transfer: 68.6kg (151 lb) Current Weight (Kg): Weight: 73.5 kg (162 lb) (09/11/20) Estimated PN Kcal Needs: 1445-1620kcal (25-28kcal/kg desired wt 57.8kg) Estimated Protein Needs: 86-104g (1.5-1.8g/kg desired wt) A/P: 70 yo F with hx including diverticulitis and complex GI and urologic surgic al hx, w recurrent colovesical and rectovaginal fistulas now s/p takedown of rec tovesical fistula, end transverse colostomy, R internal iliac vein injury and li gation, primary bladder repair, left sided ureter stent placement(09/04/20). Ole aviles was started on PN support during spring admit here at & discharged to facility on 07/10 PN support providing 100% estimated needs + FLD/diet as tolerated. NSS consulted 09/04 PM to start/manage PN post-op while awaiting ostomy function & diet advancement/tolerance. RD visited patient late morning POD1 (09/05); reports ongoing efforts at improving pain management this morning & some associated nausea; minimal ostomy output thus far. Patient is allowed ice chips & sips of juice per report, but patient admits to struggling with even sips of water so far. Reports at facility, PN ran 07/10 still & until transfer to ; was providing 100g AA, 230g dextrose, 235ml intralipid with 1800ml over 24hrs per latest rx from [facility]. NSS customized new PN for 09/05/20 based on post- op needs, weight status, labs etc. Given recent PN provisions & current appropriate lytes, PN was restarted at goal macronutrients. RD reviewed PN plan & reviewed diet strategies/tips for once diet advances & in setting of new colostomy; provided additional copy of ostomy diet handout (noted ethnoarchaeology professor already provided their education) during 09/05/20 visit. Patient voiced understanding/appreciation. 09/14--Chart/labs reviewed. PN was providing 1490kcal, 90g protein in-house 09/05- until held 09/09/20 with bacteremia/line removal. Was stable to start on CLD then Regular diet since that hold, however intakes were minimal and GI symptoms were worsening. CT 09/12 showing partial SBO within hernia, mildly complex fluid collection along anterior abdominal wall, right rectus sheath hematoma, thus pat ient was made NPO & decision was made to resume PN support on 09/13 rather than pursue corpak/EN feeds. PN goals re-evaluated 09/13; higher calorie goal with patient now NPO for unclear future timeline, and acutely higher metabolic needs with infection. Will maintain high protein content & supplemental vitamins/minerals- adding vit c & zinc to support healing/avoid further skin breakdown. Will increase dextrose towards goal. Will set lytes based on serum trends & anticipated I/Os. Total volume is at ~30ml/kg desired wt and consistent with last week's PN. PN Changes (to start at 20:30): Increased from 150 to 190g dextrose Increased from 60 to 80 mEq K+ PN will provide 1496kcal (26kcal/kg desired wt; 92% goal), 90g protein (1.6g/kg desired wt). Flora Sanderson MS, RD, LD, CNSC Available on Voalte * Arnie Wisdom, [employer] - 09/14/2020 10:42 AM CDT Interventional Radiology Follow Up Note Admission Date: 09/04/2020 LOS: 10 days Principal Problem: Colovesical fistula Active Problems: Acute blood loss anemia J LUIS (acute kidney injury) (HCC) Malnutrition (HCC) Bacteremia due to methicillin resistant Staphylococcus epidermidis Candidal urinary tract infection Ileus (HCC) Hypokalemia CLABSI (central line-associated bloodstream infection) Acute pulmonary edema (HCC) Procedure completed: Carlos Alberto Torres is a 70 y.o. female who is status post abdominal drain placement yesterday IR. Assessment: - Drain in place and intact to low middle abdomen. - Sanguinous fluid noted in Uresil reservoir. Holding suction well. - Flushing orders are present on MAY - Dressing CDI, site WNL Plan: 1. Flush drain with 10 ml Normal Saline twice a day and as needed to maintain pa tency. 2. Recommend ABX coverage for at least 48 hrs post-procedure and then to primary team discretion. 3. Change dressing weekly and as needed if soiled. 4. When output drops below 30mL per 24 hr period, please obtain imaging to evalu ate fluid collection. Helpful if imaging matches initial diagnostic imaging. 5. Notify Interventional Radiology: the drainage bag won't hold suction, no lino johnson observed in drainage bag, bleeding or [...] Please page with any questions or concerns. Arnie Wisdom, [employer] Pgr [phone] IR Team Pager [phone] (After-hours and Weekends) Subjective Patient reports no new complaints during exam. Procedural specifics and post-op questions answered during visit. Review of Systems Constitutional: negative Ears, nose, mouth, throat, and face: negative Respiratory: negative Cardiovascular: negative Gastrointestinal: Positive for discomfort Musculoskeletal:negative Neurological: negative Behavioral/Psych: negative Medications Scheduled Meds:acetaminophen (TYLENOL) tablet 650 mg, 650 mg, Oral, Q6H* buPROPion XL (WELLBUTRIN XL) tablet 150 mg, 150 mg, Oral, QDAY cefepime (MAXIPIME) 2 g in sodium chloride 0.9% (NS) 100 mL IVPB (MB+), 2 g, Int ravenous, Q8H* cetirizine (ZyrTEC) tablet 10 mg, 10 mg, Oral, QDAY COVID-19 vacc,mRNA (MODERNA) PF immunization 100 mcg, 100 mcg, Intramuscular, New Car Inspector enoxaparin (LOVENOX) syringe 40 mg, 40 mg, Subcutaneous, QDAY(21) fluconazole (DIFLUCAN) tablet 200 mg, 200 mg, Oral, QDAY gabapentin (NEURONTIN) capsule 300 mg, 300 mg, Oral, BID levothyroxine (SYNTHROID) tablet 50 mcg, 50 mcg, Oral, QDAY methocarbamoL (ROBAXIN) tablet 750 mg, 750 mg, Oral, TID metroNIDAZOLE (FLAGYL) 500 mg IVPB 100 mL, 500 mg, Intravenous, Q8H* nicotine (NICODERM CQ STEP 2) 14 mg/day patch 1 patch, 1 patch, Transdermal, Q24 H* oxybutynin XL (DITROPAN XL) tablet 15 mg, 15 mg, Oral, QDAY pantoprazole DR (PROTONIX) tablet 40 mg, 40 mg, Oral, QDAY scopolamine (TRANSDERM-SCOP) 1mg over 3 days patch 1 patch, 1 patch, Transdermal , Q72H* And Patch Documentation - Scopolamine base 1MG/72HR 1 patch, 1 patch, Transdermal, B ID polyethylene glycol 3350 (MIRALAX) packet 17 g, 1 packet, Oral, BID senna/docusate (SENOKOT-S) tablet 1 tablet, 1 tablet, Oral, BID sodium chloride PF 0.9% flush 10 mL, 10 mL, Flush, FLUSH TID sodium chloride PF 0.9% syringe 10 mL, 10 mL, Intravenous, BID vancomycin (FIRVANQ) oral solution 125 mg, 125 mg, Oral, BID vancomycin (VANCOCIN) 1,750 mg in sodium chloride 0.9% (NS) 285 mL IVPB, 1,750 m g, Intravenous, Q24H* Continuous Infusions: Adult Continuous Parenteral Nutrition (PN) 75 mL/hr at 09/13/202027 PRN and Respiratory Meds:aluminum/magnesium hydroxide PRN, HYDROmorphone (DILAUD ID) injection Q2H PRN, hyoscyamine Q4H PRN, lidocaine PF PRN, melatonin QHS PRN, nalOXone PRN, nicotine polacrilex Q1H PRN, [DISCONTINUED] ondansetron Q6H PRN * *OR ondansetron (ZOFRAN) IV Q6H PRN, oxyCODONE Q4H PRN, phenoL PRN, prochlorpe razine Q6H PRN, simethicone Q6H PRN, vancomycin, pharmacy to manage Per Pharmacy Objective Vital Signs: Last Filed Vital Signs: 24 Elisabeth r Range BP: 94/35 (09/15 815) Temp: 36.8 C (98.2 F) (09/15 815) Pulse: 78 (09/14 904) Respirations: 20 PER MINUTE (09/14 904) SpO2: 96 % (09/14 904) SpO2 Pulse: 96 (09/13 1745) BP: (78-113)/(35-61) Temp: [36.4 C (97.6 F)-37.7 C (99.9 F)] Pulse: [72-96] Respirations: [11 PER MINUTE-26 PER MINUTE] SpO2: [93 %-100 %] Intensity Pain Scale (Self Report): 3 (09/13/20 2018) Vitals: 09/04/20 0919 09/05/20 1011 09/11/20 1110 Weight: 64.9 kg (143 lb) 76.2 kg (167 lb 14.4 oz) 73.5 kg (162 lb) Intake/Output Summary: (Last 24 hours) Intake/Output Summary (Last 24 hours) at 09/14/2020 1042 Last data filed at 09/14/2020 0823 Gross per 24 hour Intake 30 ml Output 1600 ml Net -1570 ml Physical Exam General appearance: alert and no distress Neurologic: Grossly normal, at baseline Lungs: Nonlabored with normal effort Heart: regular rate and rhythm Abdomen: soft, nondistended; ostomy in place WNL, new UreSil drain in place as d escribed above. Bilateral nephrostomy tubes in place and intact with clear yell ow urine each bag. Extremities: extremities normal, atraumatic, no cyanosis or edema Lab/Radiology/Other Diagnostic Tests: Labs: 24-hour labs: Results for orders placed or performed during the hospital encounter of 09/04/20 (from the past 24 hour(s)) POC GLUCOSE Collection Time: 09/13/20 11:20 AM Result Value Ref Range Glucose, POC 107 (H) 70 - 100 MG/DL CULTURE-WOUND/TISSUE/FLUID(AEROBIC ONLY)W/SENSITIVITY Collection Time: 09/13/20 5:11 PM Specimen: Abdomen; Fluid ABSCESS Result Value Ref Range Battery Name ROUTINE CULTURE Report Status PRELIMINARY 09/13/2020 Specimen Description FLUID ABSCESS Special Requests NONE Direct Gram Stain RARE NEUTROPHILS Direct Gram Stain MODERATE GRAM POSITIVE COCCI RESEMBLING STREPTOCOCCI Culture PENDING GRAM STAIN Collection Time: 09/13/20 5:11 PM Specimen: Fluid ABSCESS Result Value Ref Range Battery Name GRAM STAIN Report Status FINAL 09/13/2020 Specimen Description FLUID ABSCESS Special Requests NONE Gram Stain RARE NEUTROPHILS Gram Stain MODERATE GRAM POSITIVE COCCI RESEMBLING STREPTOCOCCI POC GLUCOSE Collection Time: 09/13/20 6:06 PM Result Value Ref Range Glucose, POC 86 70 - 100 MG/DL POC GLUCOSE Collection Time: 09/13/20 9:03 PM Result Value Ref Range Glucose, POC 93 70 - 100 MG/DL POC GLUCOSE Collection Time: 09/14/20 3:19 AM Result Value Ref Range Glucose, POC 119 (H) 70 - 100 MG/DL BASIC METABOLIC PANEL Collection Time: 09/14/20 4:17 AM Result Value Ref Range Sodium 136 (L) 137 - 147 MMOL/L Potassium 3.6 3.5 - 5.1 MMOL/L Chloride 105 98 - 110 MMOL/L CO2 23 21 - 30 MMOL/L Anion Gap 8 3 - 12 Glucose 109 (H) 70 - 100 MG/DL Blood Urea Nitrogen 15 7 - 25 MG/DL Creatinine 0.75 0.4 - 1.00 MG/DL Calcium 7.4 (L) 8.5 - 10.6 MG/DL eGFR Non >60 >60 mL/min eGFR >60 >60 mL/min CBC Collection Time: 09/14/20 4:17 AM Result Value Ref Range White Blood Cells 19.4 (H) 4.5 - 11.0 K/UL RBC 2.52 (L) 4.0 - 5.0 M/UL Hemoglobin 7.5 (L) 12.0 - 15.0 GM/DL Hematocrit 23.3 (L) 36 - 45 % MCV 92.3 80 - 100 FL MCH 29.8 26 - 34 PG MCHC 32.3 32.0 - 36.0 G/DL RDW 15.3 (H) 11 - 15 % Platelet Count 410 (H) 150 - 400 K/UL MPV 8.0 7 - 11 FL MAGNESIUM Collection Time: 09/14/20 4:17 AM Result Value Ref Range Magnesium 2.1 1.6 - 2.6 mg/dL PHOSPHORUS Collection Time: 09/14/20 4:17 AM Result Value Ref Range Phosphorus 3.3 2.0 - 4.5 MG/DL VANCOMYCIN TROUGH Collection Time: 09/14/20 8:10 AM Result Value Ref Range Vancomycin Trough 14.6 10.0 - 20.0 MCG/ML POC GLUCOSE Collection Time: 09/14/20 8:16 AM Result Value Ref Range Glucose, POC 124 (H) 70 - 100 MG/DL Radiology: Reviewed. * Juany Ferguson MD - 09/14/2020 8:23 AM CDT Infectious Diseases Progress Note Today's Date: 09/14/2020 Admission Date: 09/04/2020 Reason for this consultation: complex patient has seen ID. Currently on rocephin , flagyl, fluconazole, and PO vanc for recurrent UTIs d/t colovesical fistula. H ad colovesical fistula takedown with partial cystectomy 09/04. Seeking recs on en d dates for abx or any need to change abx Type of Consultation: Co-Management w/Signed Orders Assessment: Carlos Alberto Torres is a 70 y.o. female with a medical history of diverticuliti s in 2011 leading to surgical history for and due to recurrent fistulization, mo st recently colovaginal and coloureteral/vesical. She has had recurrent UTI's du e to feculent urine and has been on and off several antibiotics over the past se veral years and especially since Dec, 2019. She has bilateral nephrostomy tubes in place following severe infection in June with VRE, Bacteroides, Brenda glab rata and Brenda parapsilosis on cultures. She received 14 days of daptomycin, m icafungin, metronidazole and a cephalosporin and was then transitioned to IV cef triaxone, metronidazole, fluconazole 200 mg daily until definitive surgery due t o high risk for severe infection. She had a first occurrence of C. Diff in June and has been on ppx PO vancomycin following treatment course. She was admitted 09/04 following colovesical fistula takedown, partial cystectomy, infected mesh e xcision and colectomy with colostomy creation. NGT placed on 09/07 d/t ileus and hospitalization has since been complicated by fever 25 AM and increasing O2 re quirement but appeared to be more volume overload on CXR. BCx from time of fever positive for MRSE from PICC BCx so removed PICC and treating for CLABSI w/ vanc omycin for 7d. Stopped other antimicrobials 09/11, but patient w/ rising WBC 09/[address] abd/pelv demonstrated fluid collection along anterior abdominal wall joana und incision site, s/p IR drain placement 09/13 w/ GPCs resembling strep on gram stain. Currently on vanc/cefepime/metronidazole/fluc as await cultures. ID Problem List 1. 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 Sepsis - 2/2 MRSIlda CLABSI 09/08, now w/ suspected postop wound infection/fluid collection on CT 09/12 3. Intraabdominal abscess at surgical site 4. MRSIlda KEARNSBSI - on 09/08 BCx, PICC removed 09/09 5. Colostomy creation 09/04 6. Salomon catheter placed 09/04 7. Recent polymicrobial pyelonephritis - C. Glabrata, C. Parapsilosis, VRE, Bact eroides, Eggerthella w/ Intra-abdominal abscess 8. 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 B/L nephrostomy tubes placed in June, 10. Recent C. Diff colitis on PO Vanc BID 11. Poor PO intake on TPN 12. Ileus (09/07) 13. Antibiotic allergies: Bactrim- Hives 14. Acute hypoxic respiratory failure 15. Volume overload Recommendations: 1. Continue IV vancomycin with pharmacy to assist in dosing. Will plan to contin ue for 7-day total course from PICC removal through 09/16. 2. Continue IV cefepime 2g q8h renally dosed, metronidazole and fluconazole for now 3. F/u cultures. If identified as E. Faecium will change vancomycin to daptomyci n. 4. Continue PO vancomycin for C.diff ppx, will plan to continue for 2-days past end of other antimicrobials 5. Nephrostomy tube management per Urology 6. Low suspicion for pneumonia, suspect more atelectasis w/ abdominal pain. Enco uraged incentive spirometry. Thank you for the consultation. ID will continue to follow. Juany Ferguson MD Pager [phone] Please contact preferentially via Voalte Interval Hx/Subjective Afebrile, VSS. Still on O2 but w/ wide fluctuations depending on depth of inspir ations. No cough, denies SOB or chest pain. Still having some abdominal pain around incision and drain site but slightly imp roved. Still having some nausea but no vomiting. Having some L leg pain today but not TTP. Antimicrobial Start date End date Fluconazole 07/14-09/11; 09/13 Active Cefepime 07/11 07/14 Cefpodoxime 07/05 07/11 Flagyl 07/03-09/11; 09/13 Active Daptomycin 07/05 07/14 Micafungin 07/03 07/14 PO Vancomycin 07/05 Active Ceftriaxone 07/03-07/05; 07/14 09/11 Meropenem 06/28 07/03 Linezolid 06/28 07/05 IV Vancomycin 06/28; 09/09 active Azithromycin Unknown, ~06/22 06/26 Ciprofloxacin 06/20 ~06/22 Cefepime 09/13 active Estimated Creatinine Clearance: 64.3 mL/min (based on SCr of 0.75 mg/dL). Medications Scheduled Meds:acetaminophen (TYLENOL) tablet 650 mg, 650 mg, Oral, Q6H* buPROPion XL (WELLBUTRIN XL) tablet 150 mg, 150 mg, Oral, QDAY cefepime (MAXIPIME) 2 g in sodium chloride 0.9% (NS) 100 mL IVPB (MB+), 2 g, Int ravenous, Q8H* cetirizine (ZyrTEC) tablet 10 mg, 10 mg, Oral, QDAY COVID-19 vacc,mRNA (MODERNA) PF immunization 100 mcg, 100 mcg, Intramuscular, New Car Inspector enoxaparin (LOVENOX) syringe 40 mg, 40 mg, Subcutaneous, QDAY() fluconazole (DIFLUCAN) tablet 200 mg, 200 mg, Oral, QDAY gabapentin (NEURONTIN) capsule 300 mg, 300 mg, Oral, BID levothyroxine (SYNTHROID) tablet 50 mcg, 50 mcg, Oral, QDAY methocarbamoL (ROBAXIN) tablet 750 mg, 750 mg, Oral, TID metroNIDAZOLE (FLAGYL) 500 mg IVPB 100 mL, 500 mg, Intravenous, Q8H* nicotine (NICODERM CQ STEP 2) 14 mg/day patch 1 patch, 1 patch, Transdermal, Q24 H* oxybutynin XL (DITROPAN XL) tablet 15 mg, 15 mg, Oral, QDAY pantoprazole DR (PROTONIX) tablet 40 mg, 40 mg, Oral, QDAY scopolamine (TRANSDERM-SCOP) 1mg over 3 days patch 1 patch, 1 patch, Transdermal , Q72H* And Patch Documentation - Scopolamine base 1MG/72HR 1 patch, 1 patch, Transdermal, B ID polyethylene glycol 3350 (MIRALAX) packet 17 g, 1 packet, Oral, BID senna/docusate (SENOKOT-S) tablet 1 tablet, 1 tablet, Oral, BID sodium chloride PF 0.9% flush 10 mL, 10 mL, Flush, FLUSH TID sodium chloride PF 0.9% syringe 10 mL, 10 mL, Intravenous, BID vancomycin (FIRVANQ) oral solution 125 mg, 125 mg, Oral, BID vancomycin (VANCOCIN) 1,750 mg in sodium chloride 0.9% (NS) 285 mL IVPB, 1,750 m g, Intravenous, Q24H* Continuous Infusions: Adult Continuous Parenteral Nutrition (PN) 75 mL/hr at 09/13/202027 PRN and Respiratory Meds:aluminum/magnesium hydroxide PRN, HYDROmorphone (DILAUD ID) injection Q2H PRN, hyoscyamine Q4H PRN, lidocaine PF PRN, melatonin QHS PRN, nalOXone PRN, nicotine polacrilex Q1H PRN, [DISCONTINUED] ondansetron Q6H PRN * *OR ondansetron (ZOFRAN) IV Q6H PRN, oxyCODONE Q4H PRN, phenoL PRN, prochlorpe razine Q6H PRN, simethicone Q6H PRN, vancomycin, pharmacy to manage Per Pharmacy Physical Examination Vital Signs: Most Recent Vital Signs: 24 H our Range BP: 94/45 (09/14 421) Temp: 36.9 C (98.5 F) (09/14 421) Pulse: 81 (09/14 0018) Respirations: 16 PER MINUTE (09/14 421) SpO2: 94 % (09/14 421) SpO2 Pulse: 96 (09/13 1745) BP: (78-113)/(38-61) Temp: [36.4 C (97.6 F)-37.7 C (99.9 F)] Pulse: [76-96] Respirations: [11 PER MINUTE-26 PER MINUTE] SpO2: [93 %-100 %] General appearance: Alert, oriented x 3, appears fatigued, elderly fem desiree, in NAD HENT: NC/AT, facial features symmetrical Eyes: Anicteric, EOMI Lungs: diminished BS in bases, no rhonchi, nonlabored Heart: Regular rhythm, reg rate, no murmur, rub or gallop Abdomen: RLQ colostomy in place w/ liquid stool in bag. Midline incision well ap proximated with erum, HEMA drain in place w/ serosanguinous fluid, L sided abdo hannah hernia. Hypoactive bowel sounds. Mild TTP around incision and drain. Ext: No clubbing, cyanosis, trace BLE edema, not hot or swollen joints. No TTP L LE but reporting pain. Skin: No rashes/lesions Psych: Appropriate mood and affect Lines: RUE PICC c/d/i Drains/tubes: B/L nephrostomy tubes with clear yellow urine, salomon catheter with dark urine, LLQ HEMA drain with bloody drainage. RLQ colostomy with liquid stool in place. Lab Review Hematology Recent Labs 09/12/20211409/13/208 09/14/20 0417 WBC 18.2* 21.1* 19.4* HGB 8.4* 8.8* 7.5* HCT 25.2* 27.1* 23.3* PLTCT 366 432* 410* Chemistry Recent Labs 09/12/20211409/13/208 09/14/20 0417 NA 135* 134* 136* K 4.2 4.2 3.6 CL 102 100 105 CO2 23 24 23 BUN 12 12 15 CR 0.89 0.85 0.75 GFR >60 >60 >60 GLU 95 86 109* CA 7.8* 8.0* 7.4* PO4 3.3 3.5 3.3 ALBUMIN 2.3* -- -- ALKPHOS 141* -- -- AST 18 -- -- ALT 10 -- -- TOTBILI 0.9 -- -- Microbiology, Radiology and other Diagnostics Review Microbiology: 09/08 BCx x2 w/ 1/2 MRSE (positive from PICC, peripheral negative) 09/10 BCx x2 NGTD 09/13 abscess cx pending; g/s w/ raer PMNs, moderate GPC resembling strep Microbiology data reviewed. Radiology: 09/08 CXR 1. Placement of gastric tube as described. 2. Small left greater than right pleural effusions with bibasilar left greater than right opacities, which may represent atelectasis and/or pneumonia. 3. Mild diffuse bilateral interstitial opacities, likely representing pulmonary edema. 09/12 CT chest/abd/pelv CHEST: 1. Bilateral lower lobe dependent consolidations and air bronchograms likely atelectasis rather than pneumonia. Trace amount of dependent pleural fluid. 2. Coronary artery disease. 3. Mild emphysema. 4. A few tiny pulmonary nodules are noted which are likely benign. However given the [...] gas. 2. Development of a mixed density mildly complex fluid collection along the anterior abdominal [...] mildly dilated gallbladder. Pericholecystic fluid is likely secondary [...] on short interval follow-up imaging is suggested. Pertinent radiology images viewed. * Nika Stark MD - 09/14/2020 7:34 AM CDT Colorectal Surgery Daily Progress Note Today's Date: 09/14/2020 Name: Carlos Alberto Torres Admission Date: 09/04/2020 (LOS: 10 days) Assessment: 70 y.o. female w/ diverticulitis and complex GI and urologic surgica l hx, w recurrent colovesical and rectovaginal fistulas now s/p takedown of rect ovesical fistula, end transverse colostomy, R internal iliac vein injury and lig ation, primary bladder repair, left sided ureter stent placement. OR date: 09/04/2020 Principal Problem: Colovesical fistula Active Problems: Acute blood loss anemia J LUIS (acute kidney injury) (HCC) Malnutrition (HCC) Bacteremia due to methicillin resistant Staphylococcus epidermidis Candidal urinary tract infection Ileus (HCC) Hypokalemia CLABSI (central line-associated bloodstream infection) Acute pulmonary edema (HCC) Plan: - Initiate CLD and advance as tolerated. - Ostomy is pink and viable with some output. Wound/Ostomy team for education. - Remainder of care per primary team. - Plan discussed with Dr. Chow. _ Subjective: NAEO. Denies N/V. Would like to eat. Objective: BP: (75-113)/(36-66) Temp: [36.4 C (97.6 F)-37.7 C (99.9 F)] Pulse: [76-103] Respirations: [11 PER MINUTE-26 PER MINUTE] SpO2: [90 %-100 %] Lab Results Component Value Date/Time HGB 7.5 (L) 09/14/2020416 WBC 19.4 (H) 09/14/2020416 ] Lab Results Component Value Date/Time NA 136 (L) 09/14/2020416 K 3.6 09/14/2020416 CL 105 09/14/2020416 CO2 23 09/14/2020416 BUN 15 09/14/2020416 CR 0.75 09/14/2020416 ] Physical Exam: GEN: NAD, Alert CARDIO: RRR, well perfused PULM: No respiratory distress ABD: Soft, non-distended, appropriately TTP, incision c/d/i, ostomy pink and via ble with ostomy output. JVAC in place with serosanguinous output. EXT: No cyanosis or edema NEURO: Gross motor in UE and LE b/l. Sensory intact. Nika Stark MD Team Pager: # [phone] * Marti Edouard MD - 09/14/2020 5:57 AM CDT Urology Progress Note 09/14/2020 ASSESSMENT: Carlos Alberto Torres is a 70 y.o. Female with large colovesical/vaginal fistula s/p multiple surgeris for complications from diverticulitis now s/p ex-lap, fist benjy excision, partial cystectomy, transverse end colostomy complicated by right internal iliac vein injury LOS: 10 days ACTIVE PROBLEMS: Principal Problem: Colovesical fistula Active Problems: Acute blood loss anemia J LUIS (acute kidney injury) (HCC) Malnutrition (HCC) Bacteremia due to methicillin resistant Staphylococcus epidermidis Candidal urinary tract infection Ileus (HCC) Hypokalemia CLABSI (central line-associated bloodstream infection) Acute pulmonary edema (HCC) PLAN: will discuss plan with staff surgeon - Dr. Rodriguez - Pain control: PO with IV - Card/Resp: CXR 09/08 demonstrated pulmonary edema. > Titrate O2 as able - Diet/FEN: Diet per colorectal team. NPO pending colorectal recs and review of CT scan > NGT Removed on rounds 09/09. > Holding TPN due to positive blood culture. PICC removed 09/09 - GI: bowel regimen, zofran prn - : Salomon catheter with antispasmodics in place. Right and Left NT in place. - Renal: Cr 0.85. Replete lytes prn - Heme/ID: IV and oral Vanc. WBC 21.1 (15.9) > ID consulted, appreciate recs > De-escalated to IV vancomycin only 09/11 > 2u pRBC intraop > 2u pRBC 09/06. > 09/08 PICC line blood culture: Staph epidermidis, susceptible to vanc > 09/08 left arm blood cultures: ngtd x5 > Remove PICC Line 09/09 > 09/10 blood cultures: ngtd x3 > 09/13 Hgb 8.8 > CT obtained 09/12 - partial SBO within hernia, mildly complex fluid collection along anterior abdominal wall, right rectus sheath hematoma. >09/13 Rapid Responded 2x w/ worsening leukocytosis, broadened to cefepime, fluconazole, vanc and flagy - PICC placed 09/12 for access - CANDLE MOLDER: lasix, bupropion, synthroid - Nicoderm patch and gum - OOB/Amb - Dispo: Continue inpatient care Prophylaxis Review: - DVT: SCD's, Lovenox - Catheter: Yes - Abx: Yes Marti Edouard MD PGY-1 Urology Please page urology source water protection specialist with questions SUBJECTIVE: Rapid Responded yesterday for tachycardia, hypotension and increasing oxygen dem and. Responded to 500cc bolus, HR and BP unremarkable overnight. OBJECTIVE: Vital Signs: Most Recent Vital Signs: Past 24 Ho urs BP: 94/45 (09/14 421) Temp: 36.9 C (98.5 F) (09/14 421) Pulse: 81 (09/14 0018) Respirations: 16 PER MINUTE (09/14 421) SpO2: 94 % (09/14 421) BP: (75-113)/(36-66) Temp: [36.4 C (97.6 F)-37.7 C (99.9 F)] Pulse: [76-103] Respirations: [11 PER MINUTE-26 PER MINUTE] SpO2: [90 %-100 %] General: Alert & oriented, no acute distress Pulm: non-labored on 3L NC CV: Regular rate Abd: Soft, appropriately tender, distention improved, LLQ j-vac on suction drain ing SS Incisions/Wounds: Appropriately tender to palpation. Midline incision stapled, s erosang drainage from inferior portion of incision. HEMA SS. Colostomy with liquid stool Extremities: No edema, SCD's in place : Salomon catheter in place draining clear yellow urine. Right NT draining clear yellow urine. Left NT draining clear yellow urine. Labs: Hematology Chemistry Recent Labs 09/14/20416 WBC 19.4* HGB 7.5* PLTCT 410* Recent Labs 09/14/20416 NA 136* K 3.6 CL 105 CO2 23 BUN 15 CR 0.75 GFR >60 GLU 109* CA 7.4* PO4 3.3 Intake/Output: Date 09/13/20700 - 09/14/2069909/14/20700 - 09/15/20699 Shift 1789-2526 6530-9555 24 Hour Total 1900-0700 24 Hour Total INTAKE Other 20 30 50 Shift Total(mL/kg) 20(0.3) 30(0.4) 50(0.7) OUTPUT Urine(mL/kg/hr) 350(0.4) 600 950 Urine Output (ml) (Indwelling Urinary Catheter 09/04/20 ) 0 100 100 Urine Output (ml) (NEPHROSTOMY TUBE 06/29/20 0828 Flank, Right Lower Lateral 8 FR) 150 250 400 Urine Output (ml) (NEPHROSTOMY TUBE 06/29/20 0828 Flank, Left Lower Lateral 8 FR) 200 250 450 Drains 340 210 550 Drain Output (ml) (J-Vac Drain 09/13/20 1710 Left;Mid Abdomen #2) 100 100 Drain Output (ml) (Colostomy 09/04/20 1419 Upper Right Quadrant) 300 50 350 Drain Output (ml) (Giovanni Santoro Drain 09/04/20 1419 Anterior Abdomen #1) 40 6 0 100 Shift Total(mL/kg) 690(9.4) 810(11) 1500(20.4) NET -670 -780 -3760 Weight (kg) 73.5 73.5 73.5 73.5 73.5 73.5 Malnutrition Details: * Peña Perez RN - 09/13/2020 5:36 PM CDT Drain placed in IR [facility] (drain supply) paperwork filled out by this RN and [facility]. If drain remains in place at discharge, form to be faxed, along with copy of patient face sheet, to [employer] (fax: [phone]) by c ase aerial planting and cultivation manager. Prior to discharge home, inpatient RN should also notify IR [facility] ([phone]) so that drain supplies and saline flush prescription can be delivered to pa [facility] for home use. Drain flushing and site care reviewed with patient and/or family at this time. P t verbalizes understanding, though may need reinforcement during hospitalization . Written instructions provided and added to patient AVS. * Tressa Lima RN - 09/13/2020 5:17 PM CDT Report to KOBI Pimentel on HC8 at this time. * Blanche Julien RN - 09/13/2020 5:00 PM CDT Sedation physician present in room. Recent vitals and patient condition reviewed between sedating physician and nurse. Reassessment completed. Determination made to proceed with planned sedation. * Clara Shrestha - 09/13/2020 2:21 PM CDT PHYSICAL THERAPY NOTE Name: Carlo sAlberto Torres : 1950 Age: 70 y.o. Admission Date: 09/04/2020 LOS: 9 days Patient attempted for PT in AM; held due to medical status with [employer] DRIVER called. PT a nd OT followed up in afternoon; RN states patient appropriate for therapy. Patient declined to participate despite encouragement and education about the ro le and benefits of physical therapy. Patient reporting fatigue and weakness from getting up to chair earlier today requesting to rest. Physical therapy will con tinue to follow and provide intervention as indicated. Therapist: Clara Shrestha Date: 09/13/2020 * Juany Ferguson MD - 09/13/2020 1:41 PM CDT Infectious Diseases Progress Note Today's Date: 09/13/2020 Admission Date: 09/04/2020 Reason for this consultation: complex patient has seen ID. Currently on rocephin , flagyl, fluconazole, and PO vanc for recurrent UTIs d/t colovesical fistula. H ad colovesical fistula takedown with partial cystectomy 09/04. Seeking recs on en d dates for abx or any need to change abx Type of Consultation: Co-Management w/Signed Orders Assessment: Carlos Alberto Torres is a 70 y.o. female with a medical history of diverticuliti s in 2011 leading to surgical history for and due to recurrent fistulization, mo st recently colovaginal and coloureteral/vesical. She has had recurrent UTI's du e to feculent urine and has been on and off several antibiotics over the past se veral years and especially since Dec, 2019. She has bilateral nephrostomy tubes in place following severe infection in June with VRE, Bacteroides, Brenda glab rata and Brenda parapsilosis on cultures. She received 14 days of daptomycin, m icafungin, metronidazole and a cephalosporin and was then transitioned to IV cef triaxone, metronidazole, fluconazole 200 mg daily until definitive surgery due t o high risk for severe infection. She had a first occurrence of C. Diff in June and has been on ppx PO vancomycin following treatment course. She was admitted 09/04 following colovesical fistula takedown, partial cystectomy, infected mesh e xcision and colectomy with colostomy creation. NGT placed on 09/07 d/t ileus and hospitalization has since been complicated by fever /25 AM and increasing O2 re quirement but appeared to be more volume overload on CXR. BCx from time of fever positive for MRSE from PICC BCx so removed PICC and treating for CLABSI w/ vanc omycin for 7d. Stopped other antimicrobials 09/11, but patient w/ rising WBC 09/[address] abd/pelv demonstrated fluid collection along anterior abdominal wall joana und incision site, going for IR drainage and antibiotics restarted. Will f/u cul tures. ID Problem List 1. 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 Sepsis - / ANNMARIE ACOSTAI 09/08, now w/ suspected postop wound infection/fluid collection on CT 09/12 3. ANNMARIE ACOSTAI - on 09/08 BCx, PICC removed 09/09 4. Colostomy creation 09/04 5. Salomon catheter placed 09/04 6. Recent polymicrobial pyelonephritis - C. Glabrata, C. Parapsilosis, VRE, Bact eroides, Eggerthella w/ Intra-abdominal abscess 7. 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 B/L nephrostomy tubes placed in June, 9. Recent C. Diff colitis on PO Vanc BID 10. Poor PO intake on TPN 11. Ileus (09/07) 12. Antibiotic allergies: Bactrim- Hives 13. Acute hypoxic respiratory failure 14. Volume overload Recommendations: 1. Continue IV vancomycin with pharmacy to assist in dosing. Will plan to contin ue for 7-day total course from PICC removal through 09/16. 2. Started IV cefepime 2g q12h renally dosed and metronidazole for possible post -op wound infection 3. Agree w/ drainage of fluid collection by IR. Please send for bacterial aerobi c & anaerobic cx and fungal cx. Will f/u cx to determine continued abx plan. 4. Continue PO vancomycin for C.diff ppx, will plan to continue for 2-days past end of other antimicrobials (tentative end date of 09/18 for PO vanc) 5. F/u cultures 6. Nephrostomy tube management per Urology 7. Low suspicion for pneumonia, suspect more atelectasis w/ abdominal pain. Enco uraged incentive spirometry. Thank you for the consultation. ID will continue to follow. Juany Ferguson MD Pager [phone] Please contact preferentially via Voalte Interval Hx/Subjective Afebrile but hypotension and tachycardia overnight with rapid response x2. Patient mentating fine during RR. She denies having any symptoms around the time of hypotension. No chills or sweats. No confusion. She continues to have abdominal pain around the incision and nausea but no vomit ing. She denies cough. Up to 5L O2 at times overnight but able to take off and have s table O2 sats on room air this morning. Antimicrobial Start date End date Fluconazole 07/14-09/11; 09/13 Active Cefepime 07/11 07/14 Cefpodoxime 07/05 07/11 Flagyl 07/03-09/11; 09/13 Active Daptomycin 07/05 07/14 Micafungin 07/03 07/14 PO Vancomycin 07/05 Active Ceftriaxone 07/03-07/05; 07/14 09/11 Meropenem 06/28 07/03 Linezolid 06/28 07/05 IV Vancomycin 06/28; 09/09 active Azithromycin Unknown, ~06/22 06/26 Ciprofloxacin 06/20 ~06/22 Cefepime 09/13 active Estimated Creatinine Clearance: 56.7 mL/min (based on SCr of 0.85 mg/dL). Medications Scheduled Meds:acetaminophen (TYLENOL) tablet 650 mg, 650 mg, Oral, Q6H* buPROPion XL (WELLBUTRIN XL) tablet 150 mg, 150 mg, Oral, QDAY cefepime (MAXIPIME) 2 g in sodium chloride 0.9% (NS) 100 mL IVPB (MB+), 2 g, Int ravenous, Q12H* cetirizine (ZyrTEC) tablet 10 mg, 10 mg, Oral, QDAY COVID-19 vacc,mRNA (MODERNA) PF immunization 100 mcg, 100 mcg, Intramuscular, New Car Inspector enoxaparin (LOVENOX) syringe 40 mg, 40 mg, Subcutaneous, QDAY() fluconazole (DIFLUCAN) tablet 200 mg, 200 mg, Oral, QDAY gabapentin (NEURONTIN) capsule 300 mg, 300 mg, Oral, BID levothyroxine (SYNTHROID) tablet 50 mcg, 50 mcg, Oral, QDAY methocarbamoL (ROBAXIN) tablet 750 mg, 750 mg, Oral, TID metroNIDAZOLE (FLAGYL) 500 mg IVPB 100 mL, 500 mg, Intravenous, Q8H* nicotine (NICODERM CQ STEP 2) 14 mg/day patch 1 patch, 1 patch, Transdermal, Q24 H* oxybutynin XL (DITROPAN XL) tablet 15 mg, 15 mg, Oral, QDAY pantoprazole DR (PROTONIX) tablet 40 mg, 40 mg, Oral, QDAY scopolamine (TRANSDERM-SCOP) 1mg over 3 days patch 1 patch, 1 patch, Transdermal , Q72H* And Patch Documentation - Scopolamine base 1MG/72HR 1 patch, 1 patch, Transdermal, B ID polyethylene glycol 3350 (MIRALAX) packet 17 g, 1 packet, Oral, BID senna/docusate (SENOKOT-S) tablet 1 tablet, 1 tablet, Oral, BID sodium chloride PF 0.9% flush 10 mL, 10 mL, Flush, FLUSH TID vancomycin (FIRVANQ) oral solution 125 mg, 125 mg, Oral, BID vancomycin (VANCOCIN) 1,750 mg in sodium chloride 0.9% (NS) 285 mL IVPB, 1,750 m g, Intravenous, Q24H* Continuous Infusions: Adult Continuous Parenteral Nutrition (PN) PRN and Respiratory Meds:aluminum/magnesium hydroxide PRN, HYDROmorphone (DILAUD ID) injection Q2H PRN, hyoscyamine Q4H PRN, lidocaine PF PRN, melatonin QHS PRN, nalOXone PRN, nicotine polacrilex Q1H PRN, [DISCONTINUED] ondansetron Q6H PRN * *OR ondansetron (ZOFRAN) IV Q6H PRN, oxyCODONE Q4H PRN, phenoL PRN, prochlorpe razine Q6H PRN, simethicone Q6H PRN, vancomycin, pharmacy to manage Per Pharmacy Physical Examination Vital Signs: Most Recent Vital Signs: 24 H our Range BP: 95/55 (09/13 1135) Temp: 37 C (98.6 F) (09/13 1135) Pulse: 89 (09/13 1119) Respirations: 16 PER MINUTE (09/13 1119) SpO2: 97 % (09/13 1119) BP: (75-111)/(36-71) Temp: [36.9 C (98.4 F)-37.4 C (99.3 F)] Pulse: [81-103] Respirations: [14 PER MINUTE-25 PER MINUTE] SpO2: [90 %-97 %] General appearance: Alert, oriented x 3, appears fatigued, elderly fem desiree, in NAD HENT: NC/AT, facial features symmetrical Eyes: Anicteric, EOMI Lungs: diminished BS in bases, no rhonchi, nonlabored Heart: Regular rhythm, reg rate, no murmur, rub or gallop Abdomen: RLQ colostomy in place w/ liquid stool in bag. Midline incision well ap proximated with erum, w/ small amount serosanguinous fluid present more dista lly, dressing in place. L sided abdominal hernia. Hypoactive bowel sounds. Mild TTP around incisionl. Ext: No clubbing, cyanosis, trace BLE edema, not hot or swollen joints Skin: No rashes/lesions Psych: Appropriate mood and affect Lines: RUE PICC c/d/i Drains/tubes: B/L nephrostomy tubes with clear yellow urine, salomon catheter with dark urine, LLQ HEMA drain with bloody drainage. RLQ colostomy with liquid stool in place. Lab Review Hematology Recent Labs 09/12/2043909/12/20211409/13/20 0258 WBC 15.9* 18.2* 21.1* HGB 9.2* 8.4* 8.8* HCT 27.6* 25.2* 27.1* PLTCT 378 366 432* Chemistry Recent Labs 09/12/2043909/12/20211409/13/20 0258 NA 136* 135* 134* K 4.3 4.2 4.2 CL 102 102 100 CO2 26 23 24 BUN 11 12 12 CR 0.88 0.89 0.85 GFR >60 >60 >60 GLU 95 95 86 CA 7.8* 7.8* 8.0* PO4 3.5 3.3 3.5 ALBUMIN -- 2.3* -- ALKPHOS -- 141* -- AST -- 18 -- ALT -- 10 -- TOTBILI -- 0.9 -- Microbiology, Radiology and other Diagnostics Review Microbiology: 09/08 BCx x2 w/ /2 MRSE (positive from PICC, peripheral negative) 09/10 BCx x2 NGTD Microbiology data reviewed. Radiology: 09/08 CXR 1. Placement of gastric tube as described. 2. Small left greater than right pleural effusions with bibasilar left greater than right opacities, which may represent atelectasis and/or pneumonia. 3. Mild diffuse bilateral interstitial opacities, likely representing pulmonary edema. 09/12 CT chest/abd/pelv CHEST: 1. Bilateral lower lobe dependent consolidations and air bronchograms likely atelectasis rather than pneumonia. Trace amount of dependent pleural fluid. 2. Coronary artery disease. 3. Mild emphysema. 4. A few tiny pulmonary nodules are noted which are likely benign. However given the [...] gas. 2. Development of a mixed density mildly complex fluid collection along the anterior abdominal [...] mildly dilated gallbladder. Pericholecystic fluid is likely secondary [...] on short interval follow-up imaging is suggested. Pertinent radiology images viewed. * Armando Carrillo MD - 09/13/2020 9:00 AM CDT Brief Urology Note Patient was rapid responded this morning for tachycardia, hypotension, and incre ase oxygen requirment. Patient was mentating well, denies chest pain, or shortne ss of breath. Reported ongoing lower abdominal pain. Patient was rapid responded overnight for hypotension and at that time was not fluid responsive to a 500 cc fluid bolus. This morning patient responded to 500 cc of fluid with improvement in BP and NICOM to 16%. Patient tachycardia in the 160's resolved after 10 min, unable to capture on EKG. Patient labs concerning for rising WBC of 21, remaini ng labs are unremarkable. Oxygen requirement improved with IS use and resolution of tachycardia. Patient evaluated by MICU team, okay to remain on floor at this time. Plan - Follow up CXR - Rapid Response team to follow up in 2 hours > Low threshold to transfer to MICU for closer BP monitoring and pressure control - NPO for possible drain placement - IR consulted for drain placement in abdominal fluid collection - Restart ceftriaxone, metronidazole, and fluconazole as recommended by ID - Appreciate assistance from MICU and Rapid Response team Armando Carrillo MD * Sami Bermudez MD - 09/13/2020 8:31 AM CDT Colorectal Surgery Daily Progress Note Today's Date: 09/13/2020 Name: Carlos Alberto Torres Admission Date: 09/04/2020 (LOS: 9 days) Assessment: 70 y.o. female w/ diverticulitis and complex GI and urologic surgica l hx, w recurrent colovesical and rectovaginal fistulas now s/p takedown of rect ovesical fistula, end transverse colostomy, R internal iliac vein injury and lig ation, primary bladder repair, left sided ureter stent placement. OR date: 09/04/2020 Principal Problem: Colovesical fistula Active Problems: Acute blood loss anemia J LUIS (acute kidney injury) (HCC) Malnutrition (HCC) Bacteremia due to methicillin resistant Staphylococcus epidermidis Candidal urinary tract infection Ileus (HCC) Hypokalemia CLABSI (central line-associated bloodstream infection) Acute pulmonary edema (HCC) Plan: Patient rapid responded this morning MICU consult pending. Recommend trans neo to ICU level of care for invasive BP monitoring, closer monitoring, and resu scitation. -Recommend NPO for now. -Given finding of SBO on CT, recommend TPN over corpak feeding. -Ostomy is pink and viable with some output. Wound/Ostomy team for education. -Remainder of care per primary team -Discussed and seen patient with Dr. Chow who directed plan of care _ Subjective: Intermittently hypotensive. Rapid responded. Objective: BP: (75-111)/(36-71) Temp: [36.9 C (98.4 F)-37.5 C (99.5 F)] Pulse: [81-103] Respirations: [14 PER MINUTE-25 PER MINUTE] SpO2: [90 %-97 %] Lab Results Component Value Date/Time HGB 8.8 (L) 09/13/2020257 WBC 21.1 (H) 09/13/2020257 ] Lab Results Component Value Date/Time NA 134 (L) 09/13/2020257 K 4.2 09/13/2020257 CL 100 09/13/2020257 CO2 24 09/13/2020257 BUN 12 09/13/2020257 CR 0.85 09/13/2020257 ] Physical Exam: GEN: NAD, Alert CARDIO: RRR, well perfused PULM: No respiratory distress ABD: Soft, minimally distended, appropriately TTP, incision c/d/i, ostomy pink a nd viable with ostomy output. Hernia attempted to be reduced at bedside, patient did not tolerate well. EXT: No cyanosis or edema NEURO: Gross motor in UE and LE b/l. Sensory intact. Sami Bermudez MD Team Pager: # [phone] Associated attestation - Anurag Chow MD - 09/13/2020 6:26 PM CDT ATTESTATION I personally performed the jurado portions of the E/M visit, discussed case with re sident and concur with resident documentation of history, physical exam, assessm ent, and treatment plan unless otherwise noted. Appears to have partial SBO at site of wide-mouthed left lateral abdominal wall hernia. No concern for bowel ischemia or strangulation at this point. Will mon itor. OK for sips of clears but currently NPO for IR procedure. Staff name: Anurag Chow MD Date: 09/13/2020 * Harriet Diez RN - 09/13/2020 8:29 AM CDT NICOM Fluid Bolus or Passive Leg Raise Challenge: Fluid Bolus Challenge: Yes, Passive Leg Raise: No Fluid Volume infused: 500ml Time started: 0815 CI SVI Baseline 3.4 33 Challenge 4.0 38 Stroke Volume Index Change: 16.2% * Laure Hull MD - 09/13/2020 5:52 AM CDT Urology Progress Note 09/13/2020 ASSESSMENT: Carlos Alberto Torres is a 70 y.o. Female with large colovesical/vaginal fistula s/p multiple surgeris for complications from diverticulitis now s/p ex-lap, fist benjy excision, partial cystectomy, transverse end colostomy complicated by right internal iliac vein injury LOS: 9 days ACTIVE PROBLEMS: Principal Problem: Colovesical fistula Active Problems: Acute blood loss anemia J LUIS (acute kidney injury) (HCC) Malnutrition (HCC) Bacteremia due to methicillin resistant Staphylococcus epidermidis Candidal urinary tract infection Ileus (HCC) Hypokalemia CLABSI (central line-associated bloodstream infection) Acute pulmonary edema (HCC) PLAN: will discuss plan with staff surgeon - Dr. Rodriguez - Pain control: PO with IV - Card/Resp: CXR 09/08 demonstrated pulmonary edema. > Titrate O2 as able - Diet/FEN: Diet per colorectal team. NPO pending colorectal recs and review of CT scan > NGT Removed on rounds 09/09. > Holding TPN due to positive blood culture. PICC removed 09/09 - GI: bowel regimen, zofran prn - : Salomon catheter with antispasmodics in place. Right and Left NT in place. - Renal: Cr 0.85. Replete lytes prn - Heme/ID: IV and oral Vanc. WBC 21.1 (15.9) > ID consulted, appreciate recs > De-escalated to IV vancomycin only 09/11 > 2u pRBC intraop > 2u pRBC 09/06. > 09/08 PICC line blood culture: Staph epidermidis, susceptible to vanc > 09/08 left arm blood cultures: ngtd x5 > Remove PICC Line 09/09 > 09/10 blood cultures: ngtd x3 > 09/13 Hgb 8.8 > CT obtained 09/12 - partial SBO within hernia, mildly complex fluid collection along anterior abdominal wall, right rectus sheath hematoma. - PICC placed 09/12 for access - CANDLE MOLDER: lasix, bupropion, synthroid - Nicoderm patch and gum - OOB/Amb - Dispo: Continue inpatient care Prophylaxis Review: - DVT: SCD's, Lovenox - Catheter: Yes - Abx: Yes Laure Hull MD PGY-1 Urology Please page urology source water protection specialist with questions SUBJECTIVE: Rapid responded overnight for hypotension, increased oxygen demand. Treated with 500cc bolus. Tolerated some regular diet yesterday with no nausea/vomiting. Con tinues to have pain over hernia site, unchanged from previous. Left thigh pain w ith no swelling. Ambulated, but felt weak. OBJECTIVE: Vital Signs: Most Recent Vital Signs: Past 24 Ho urs BP: 95/56 (09/13 409) Temp: 37.4 C (99.3 F) (09/13 409) Pulse: 91 (09/13 409) Respirations: 20 PER MINUTE (09/13 409) SpO2: 95 % (09/13 409) BP: (78-109)/(41-71) Temp: [36.9 C (98.4 F)-37.5 C (99.5 F)] Pulse: [81-102] Respirations: [18 PER MINUTE-25 PER MINUTE] SpO2: [92 %-97 %] General: Alert & oriented, no acute distress Pulm: non-labored on 3L NC CV: Regular rate Abd: Soft, appropriately tender, distention improved Incisions/Wounds: Appropriately tender to palpation. Midline incision stapled, s erosang drainage from inferior portion of incision. HEMA SS. Colostomy with liquid stool Extremities: No edema, SCD's in place : Salomon catheter in place draining clear yellow urine. Right NT draining clear yellow urine. Left NT draining clear yellow urine. Labs: Hematology Chemistry Recent Labs 09/13/20 0258 WBC 21.1* HGB 8.8* PLTCT 432* Recent Labs 09/13/20 0258 NA 134* K 4.2 CL 100 CO2 24 BUN 12 CR 0.85 GFR >60 GLU 86 CA 8.0* PO4 3.5 Intake/Output: Date 09/12/20700 - 09/13/20 0709/13/20700 - 09/14/20 0700 Shift 4636-6324 1874-4966 24 Hour Total 8375-7549 6455-6166 24 Hour Total INTAKE Other 20 20 Shift Total(mL/kg) 20(0.3) 20(0.3) OUTPUT Urine(mL/kg/hr) 390(0.4) 775 1165 Urine Output (ml) (Indwelling Urinary Catheter 09/04/20 ) 195 100 295 Urine Output (ml) (NEPHROSTOMY TUBE 06/29/20 0828 Flank, Right Lower Lateral 8 FR) 110 300 410 Urine Output (ml) (NEPHROSTOMY TUBE 06/29/20 0828 Flank, Left Lower Lateral 8 FR) 85 375 460 Drains 400 110 510 Drain Output (ml) (Colostomy 09/04/20 1419 Upper Right Quadrant) 325 50 375 Drain Output (ml) (Giovanni Santoro Drain 09/04/20 1419 Anterior Abdomen #1) 75 6 0 135 Shift Total(mL/kg) 790(10.8) 885(12) 1675(22.8) [facility] -940 -760 -4160 Weight (kg) 73.5 73.5 73.5 73.5 73.5 73.5 Malnutrition Details: * Juany Ferguson MD - 09/12/2020 3:13 PM CDT Infectious Diseases Progress Note Today's Date: 09/12/2020 Admission Date: 09/04/2020 Reason for this consultation: complex patient has seen ID. Currently on rocephin , flagyl, fluconazole, and PO vanc for recurrent UTIs d/t colovesical fistula. H ad colovesical fistula takedown with partial cystectomy 09/04. Seeking recs on en d dates for abx or any need to change abx Type of Consultation: Co-Management w/Signed Orders Assessment: Carlos Alberto Torres is a 70 y.o. female with a medical history of diverticuliti s in 2011 leading to surgical history for and due to recurrent fistulization, mo st recently colovaginal and coloureteral/vesical. She has had recurrent UTI's du e to feculent urine and has been on and off several antibiotics over the past se veral years and especially since Dec, 2019. She has bilateral nephrostomy tubes in place following severe infection in June with VRE, Bacteroides, Brenda glab rata and Brenda parapsilosis on cultures. She received 14 days of daptomycin, m icafungin, metronidazole and a cephalosporin and was then transitioned to IV cef triaxone, metronidazole, fluconazole 200 mg daily until definitive surgery due t o high risk for severe infection. She had a first occurrence of C. Diff in June and has been on ppx PO vancomycin following treatment course. She was admitted 09/04 following colovesical fistula takedown, partial cystectomy, infected mesh e xcision and colectomy with colostomy creation. NGT placed on 09/07 d/t ileus and hospitalization has since been complicated by fever /25 AM and increasing O2 re quirement but appeared to be more volume overload on CXR. BCx from time of fever positive for MRSE from PICC BCx so removed PICC and treating for CLABSI w/ vanc omycin for 7d. Stopped other antimicrobials 09/11 and continued PO vanc for C.dif f ppx. Will f/u repeat CT today though to determine if need to resume other anti microbials. ID Problem List 1. 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 Fever 25 AM 3. MRSE CLABSI - on 09/08 BCx, PICC removed 09/09 4. Colostomy creation 09/04 5. Salomon catheter placed 09/04 6. Recent polymicrobial pyelonephritis - C. Glabrata, C. Parapsilosis, VRE, Bact eroides, Eggerthella w/ Intra-abdominal abscess 7. 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 B/L nephrostomy tubes placed in June, 9. Recent C. Diff colitis on PO Vanc BID 10. Poor PO intake on TPN 11. Ileus (09/07) 12. Antibiotic allergies: Bactrim- Hives 13. Acute hypoxic respiratory failure 14. Volume overload Recommendations: 1. Continue IV vancomycin with pharmacy to assist in dosing. Will plan to contin ue either vancomycin (or switch to linezolid 600mg PO BID at discharge to avoid additional PICC) for 7-day total course from PICC removal through 09/16. 2. Continue PO vancomycin for C.diff ppx, will plan to continue for 2-days past end of other antimicrobials (tentative end date of 09/18 for PO vanc) 3. F/u cultures 4. Will f/u CT abd/pelv - if evidence of infection/contamination, will resume ce ftriaxone/metronidazole/fluconazole 5. Nephrostomy tube management per Urology 6. Plans to restart TPN w/ malnutrition, okay to replace PICC w/ BCx 48h NG Thank you for the consultation. ID will continue to peripherally follow. Juany Ferguson MD Pager [phone] Please contact preferentially via Voalte Interval Hx/Subjective Afebrile since 09/08. No chills or sweats. Still requiring 1L O2 - no cough. Still having some mild abdominal pain around incision. Having some ostomy output but surg onc wanting CT abd/pelv to reevaluate. No nausea, vomiting. Antimicrobial Start date End date Fluconazole 07/14 Active Cefepime 07/11 07/14 Cefpodoxime 07/05 07/11 Flagyl 07/03 Active Daptomycin 07/05 07/14 Micafungin 07/03 07/14 PO Vancomycin 07/05 Active Ceftriaxone 07/03-07/05; 07/14 Active Meropenem 06/28 07/03 Linezolid 06/28 07/05 IV Vancomycin 06/28 06/28 Azithromycin Unknown, ~06/22 06/26 Ciprofloxacin 06/20 ~06/22 Estimated Creatinine Clearance: 54.8 mL/min (based on SCr of 0.88 mg/dL). Medications Scheduled Meds:acetaminophen (TYLENOL) tablet 650 mg, 650 mg, Oral, Q6H* buPROPion XL (WELLBUTRIN XL) tablet 150 mg, 150 mg, Oral, QDAY cetirizine (ZyrTEC) tablet 10 mg, 10 mg, Oral, QDAY COVID-19 vacc,mRNA (MODERNA) PF immunization 100 mcg, 100 mcg, Intramuscular, New Car Inspector enoxaparin (LOVENOX) syringe 40 mg, 40 mg, Subcutaneous, QDAY() furosemide (LASIX) tablet 40 mg, 40 mg, Oral, QDAY gabapentin (NEURONTIN) capsule 300 mg, 300 mg, Oral, BID levothyroxine (SYNTHROID) tablet 50 mcg, 50 mcg, Oral, QDAY methocarbamoL (ROBAXIN) tablet 750 mg, 750 mg, Oral, TID nicotine (NICODERM CQ STEP 2) 14 mg/day patch 1 patch, 1 patch, Transdermal, Q24 H* oxybutynin XL (DITROPAN XL) tablet 15 mg, 15 mg, Oral, QDAY pantoprazole DR (PROTONIX) tablet 40 mg, 40 mg, Oral, QDAY scopolamine (TRANSDERM-SCOP) 1mg over 3 days patch 1 patch, 1 patch, Transdermal , Q72H* And Patch Documentation - Scopolamine base 1MG/72HR 1 patch, 1 patch, Transdermal, B ID polyethylene glycol 3350 (MIRALAX) packet 17 g, 1 packet, Oral, BID senna/docusate (SENOKOT-S) tablet 1 tablet, 1 tablet, Oral, BID vancomycin (FIRVANQ) oral solution 125 mg, 125 mg, Oral, BID vancomycin (VANCOCIN) 1,750 mg in sodium chloride 0.9% (NS) 285 mL IVPB, 1,750 m g, Intravenous, Q24H* Continuous Infusions: PRN and Respiratory Meds:aluminum/magnesium hydroxide PRN, HYDROmorphone (DILAUD ID) injection Q2H PRN, hyoscyamine Q4H PRN, lidocaine PF PRN, melatonin QHS PRN, nalOXone PRN, nicotine polacrilex Q1H PRN, [DISCONTINUED] ondansetron Q6H PRN * *OR ondansetron (ZOFRAN) IV Q6H PRN, oxyCODONE Q4H PRN, phenoL PRN, prochlorpe razine Q6H PRN, simethicone Q6H PRN, vancomycin, pharmacy to manage Per Pharmacy Physical Examination Vital Signs: Most Recent Vital Signs: 24 H our Range BP: 109/63 (09/12 1118) Temp: 37.5 C (99.5 F) (09/12 111) Pulse: 101 (09/12 0949) Respirations: 18 PER MINUTE (09/12 1117) SpO2: 92 % (09/12 1117) BP: (78-109)/(48-63) Temp: [36.8 C (98.2 F)-37.5 C (99.5 F)] Pulse: [81-101] Respirations: [18 PER MINUTE] SpO2: [92 %-95 %] General appearance: Alert, oriented x 3, appears fatigued, elderly fem desiree, in NAD HENT: NC/AT, facial features symmetrical Eyes: Anicteric, EOMI Lungs: diminished BS in bases, no rhonchi, nonlabored Heart: Regular rhythm, reg rate, no murmur, rub or gallop Abdomen: RLQ colostomy in place w/ minimal output in bag. Midline incision well approximated with erum, w/ small amount serosanguinous fluid at incision. L s ided abdominal hernia. Hypoactive bowel sounds. Mild TTP around incision but imp roved overall. Ext: No clubbing, cyanosis, trace BLE edema, not hot or swollen joints Skin: No rashes/lesions Psych: Appropriate mood and affect Lines: RUE peripheral IV Drains/tubes: B/L nephrostomy tubes with clear yellow urine, salomon catheter with bloody urine, LLQ HEMA drain with bloody drainage. RLQ colostomy with serosanguin ous output in appliance Lab Review Hematology Recent Labs 09/10/20 0440 09/11/20 0432 09/12/20 0440 WBC 12.4* 12.9* 15.9* HGB 8.0* 8.0* 9.2* HCT 24.8* 23.3* 27.6* PLTCT 264 277 378 Chemistry Recent Labs 09/10/20 0440 09/11/20 0432 09/12/20 0440 NA 141 141 136* K 4.1 3.2* 4.3 CL 108 110 102 CO2 25 20* 26 BUN 17 10 11 CR 0.69 0.72 0.88 GFR >60 >60 >60 GLU 78 71 95 CA 7.7* 6.1* 7.8* PO4 3.5 5.7* 3.5 Microbiology, Radiology and other Diagnostics Review Microbiology: 09/08 BCx x2 w/ 03/18 MRSE (positive from PICC, peripheral negative) 09/10 BCx x2 NGTD Microbiology data reviewed. Radiology: 09/08 CXR 1. Placement of gastric tube as described. 2. Small left greater than right pleural effusions with bibasilar left greater than right opacities, which may represent atelectasis and/or pneumonia. 3. Mild diffuse bilateral interstitial opacities, likely representing pulmonary edema. Pertinent radiology images viewed. * Kelly Salcedo OT - 09/12/2020 3:00 PM CDT OCCUPATIONAL THERAPY NOTE Attempted to see patient for occupational therapy. Patient declines to participa te, reports she feels unwell - describes gas pain in her abdomen. RN reports katty n for picc line insertion and CT abdomen later this pm. Occupational therapy dustin l continue to follow to provide intervention as indicated. Kelly Salcedo OTR/L [id number] * Argenis Ward RN - 09/12/2020 1:14 PM CDT Wound Ostomy Note NAME:Carlos Alberto Torres :1950 AGE: 70 y.o. ADMISSION DATE: 09/04/2020 DAYS ADMITTED: LOS: 8 days Reason for Consult/Visit: ostomy education Assessment/Plan: Principal Problem: Colovesical fistula Active Problems: Acute blood loss anemia J LUIS (acute kidney injury) (HCC) Malnutrition (HCC) Bacteremia due to methicillin resistant Staphylococcus epidermidis Candidal urinary tract infection Ileus (HCC) Hypokalemia Ostomy team continues to follow for ongoing ostomy education. Patients pouch rem ains intact with no signs of any leaking noted. Brown/green watery output. Patie nt resting in bed and endorsing RUQ gas pain. Stoma appearance remains the same. Bedside RN is aware. Per RN patient is going down for a CT with contrast short ly. Discharge supplies provided for patient. No family at bedside. OSTOMY CARE: Suggested Pouching Supplies: #[id number] 1. Change pouch with any sign of leaking. Do not reinforce leaking pouch wit h tape 2. Clean skin with water only - no soap or wipes 3. If skin is broken down surrounding stoma, sprinkle stoma powder and wipe away the excess 4. [place] no sting skin prep on powdered skin and let dry completely 5. Cut new pouch leaving 1/8"-1/4" of skin showing between the stoma and pouch 6. Warm new pouch in palm of hands 7. Ensure skin is dry and apply new pouch 8. Lay warm hand over pouch once it's applied Bedside RN is responsible for continuing ostomy education in between visits fr om our service. This can be achieved by including patient (and family) in ostomy care tasks such as pouch emptying and pouch changes. Colostomy 09/04/20 1419 Upper Right Quadrant (Active) 09/04/20 1419 Upper Right Quadrant Wound Image 09/11/20 1400 Agree With My Assessment? 09/11/20 1546 Stoma Assessment Dark Edges;Dusky;Edema;Pale;Becenti 09/12/20 1300 Drainage Description Brown;Green;Watery 09/12/20 1300 Peristomal Skin Assessment Unable to Assess 09/12/20 1300 Dressing Status Clean;Dry;Intact 09/12/20 1300 Drain Output (ml) 0 ml 09/11/20 2106 JACINTO Wilson, RN, TCRN Wound/Ostomy Nursing Consult Service Available via Voalte or [employer] [phone] After hours please contact wound/engraver lettering "call out clerk" via Voalte * Clara Shrestha - 09/12/2020 9:23 AM CDT PHYSICAL THERAPY PROGRESS NOTE Name: Carlos Alberto Torres : 1950 Age: 70 y.o. Admission Date: 09/04/2020 LOS: 8 days Mobility Progressive Mobility Level: Walk in hallway Distance Walked (feet): 35 ft Level of Assistance: Assist X1 Assistive Device: Walker Time Tolerated: 11-30 minutes Activity Limited By: Fatigue;Weakness;Pain Subjective Significant hospital events: 70 y.o. Female with large colovesical/vaginal fistu la s/p multiple surgeris for complications from diverticulitis now s/p ex-lap, f istula excision, partial cystectomy, transverse end colostomy complicated by rig ht internal iliac vein injury Mental / Cognitive Status: Alert;Oriented;Cooperative Comments: 2L O2 NC Comments: x2 Nephrostomy drain, x1 HEMA Ambulation Assist: Independent Mobility in Community without Device Patient Owned Equipment: Roller Walker Home Situation: Lives [facility] Roommate(Fiance) Type of Home: House Entry Stairs: No Stairs In-Home Stairs: No Stairs Comments: Patient reports her fiance is currently hospitalized at [facility] with COVID , so she is unsure if he will be able to assist her upon discharge (anticipating not). Her daughters live near but work during the day. Patient endorses history of one fall; knees buckled. Patient states she is open to discharging to inpati ent setting for further treatment if indicated, but only for short stay. 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 Bed Mobility/Transfer Bed Mobility: Supine to Sit: Moderate Assist;Head of Bed Elevated;Use of Rail;Re quires Extra Time Bed Mobility: Sit to Supine: Moderate Assist;Assist with B LE;Requires Extra Jed e;Verbal Cues Transfer Type: Sit to/from Stand Transfer: Assistance Level: To/From;Bed;Minimal Assist Transfer: Assistive Device: Roller Walker Transfers: Type Of Assistance: For Strength Deficit;For Balance;For Safety Consi derations End Of Activity Status: In Bed;Nursing Notified;Instructed Patient to Request As sist with Mobility;Instructed Patient to Use Call Light Gait Gait Distance: 35 feet Gait: Assistance Level: Minimal Assist Gait: Assistive Device: Roller Walker Gait: Descriptors: Swing-Through Gait;Decreased step length;Pace: Slow;No balanc e loss;Forward trunk flexion Activity Limited By: Complaint of Pain;Weakness Education Persons Educated: Patient Patient Barriers To Learning: Pain Interventions: Repetition of Instructions Teaching Methods: Verbal Instruction Patient Response: Verbalized Understanding;More Instruction Required Topics: Plan/Goals of PT Interventions;Mobility Progression;Safety Awareness;Up with Assist Only;Importance of Increasing Activity;Ambulate With Nursing;Recomme nd Continued Therapy Assessment/Progress Impaired Mobility Due To: Pain;Decreased Activity Tolerance Impaired Strength Due To: Pain Assessment/Progress: Should Improve w/ Continued PT Comments: Patient with improved gait ambulating earlier today with nursing staff as well however mobility limited by weakness and post surgical pain. Patient in agreement on feeling very weak and would benefit from inpatient setting prior to returning home. AM-PAC 6 Clicks Basic Mobility Inpatient Turning from your back to your side while in a flat bed without using bed rails: A Little Moving from lying on your back to sitting on the side of a flatbed without using bedrails : A Lot Moving to and from a bed to a chair (including a wheelchair): A Little Standing up from a chair using your arms (e.g. wheelchair, or bedside chair): A Little To walk in hospital room: A Little Climbing 3-5 steps with a railing: A Lot Raw Score: 16 Standardized (T-scale) Score: 38.32 Basic Mobility CMS 0-100%: 47.12 CMS G Code Modifier for Basic Mobility: CK Functional Stages Basic Mobility Score Interpretation 34-51 Limited Mobility Indoors: Your score suggests significant difficulty in mo ving about independently and the need for assistance. You may be able to move a bout in a small area of your home that has been adapted to eliminate safety haza rds. You may have difficulty moving from a sitting to standing position, climbi ng stairs and you may have a great deal of difficulty moving about outdoors and in the community. Goals Goal Formulation: With Patient Patient Will Go Supine To/From Sit: w/ Stand By Assist Patient Will Transfer Bed/Chair: w/ Stand By Assist Patient Will Transfer Sit to Stand: w/ Stand By Assist Patient Will Ambulate: 151-200 Feet, w/ Walker, w/ Stand By Assist Plan Treatment Interventions: Mobility Training;Strengthening;ROM;Balance Activities; Coordination Training;Endurance Training Plan Frequency: 5 Days per Week PT Plan for Next Visit: Progress transfers, gait with walker, endurance PT Discharge Recommendations Recommendation: Inpatient setting Patient Currently Requires Equipment: Owns what is needed Therapist: Clara Shrestha Date: 09/12/2020 * Sami Bermudez MD - 09/12/2020 7:51 AM CDT Colorectal Surgery Daily Progress Note Today's Date: 09/12/2020 Name: Carlos Alberto Torres Admission Date: 09/04/2020 (LOS: 8 days) Assessment: 70 y.o. female w/ diverticulitis and complex GI and urologic surgica l hx, w recurrent colovesical and rectovaginal fistulas now s/p takedown of rect ovesical fistula, end transverse colostomy, R internal iliac vein injury and lig ation, primary bladder repair, left sided ureter stent placement. OR date: 09/04/2020 Principal Problem: Colovesical fistula Active Problems: Acute blood loss anemia J LUIS (acute kidney injury) (HCC) Malnutrition (HCC) Bacteremia due to methicillin resistant Staphylococcus epidermidis Candidal urinary tract infection Ileus (HCC) Hypokalemia Plan: -Not tolerating PO very well. Nauseated, no emesis. Self regulate. -Recommend TPN and protein shakes as tolerated. -Due to failure to progress as expected and high risk of post operative complica tions, recommend CT CAP. -Ostomy is pink and viable with output. Wound/Ostomy team for education. -Remainder of care per primary team -Discussed and seen patient with Dr. Chow who directed plan of care _ Subjective: No acute events over night. Pain controlled. Nauseated this morning. Abdominal pain tolerable. Objective: BP: (86-93)/(45-61) Temp: [36.8 C (98.2 F)-37.2 C (98.9 F)] Pulse: [74-86] Respirations: [17 PER MINUTE-18 PER MINUTE] SpO2: [93 %-95 %] Lab Results Component Value Date/Time HGB 9.2 (L) 09/12/2020 0440 WBC 15.9 (H) 09/12/2020 0440 ] Lab Results Component Value Date/Time NA 136 (L) 09/12/2020 0440 K 4.3 09/12/2020 0440 CL 102 09/12/2020 0440 CO2 26 09/12/2020 0440 BUN 11 09/12/2020 0440 CR 0.88 09/12/2020 0440 ] Physical Exam: GEN: NAD, Alert CARDIO: RRR, well perfused PULM: No respiratory distress ABD: Soft, minimally distended, appropriately TTP, incision c/d/i, ostomy pink a nd viable with ostomy output. EXT: No cyanosis or edema NEURO: Gross motor in UE and LE b/l. Sensory intact. Sami Bermudez MD Team Pager: # [phone] * Nishant Perry MD - 09/12/2020 5:57 AM CDT Urology Progress Note 09/12/2020 ASSESSMENT: Carlos Alberto Torres is a 70 y.o. Female with large colovesical/vaginal fistula s/p multiple surgeris for complications from diverticulitis now s/p ex-lap, fist benjy excision, partial cystectomy, transverse end colostomy complicated by right internal iliac vein injury LOS: 8 days ACTIVE PROBLEMS: Principal Problem: Colovesical fistula Active Problems: Acute blood loss anemia J LUIS (acute kidney injury) (HCC) Malnutrition (HCC) Bacteremia due to methicillin resistant Staphylococcus epidermidis Candidal urinary tract infection Ileus (HCC) Hypokalemia PLAN: will discuss plan with staff surgeon - Dr. Rodriguez - Pain control: PO with IV - Card/Resp: CXR 09/08 demonstrated pulmonary edema. S/p Lasix 20mg > Titrate O2 as able - Diet/FEN: Diet per colorectal team. > NGT Removed on rounds 09/09. > Holding TPN due to positive blood culture. PICC removed 09/09 - GI: bowel regimen, zofran prn - : Salomon catheter with antispasmodics in place. Right and Left NT in place. - Renal: Cr 0.88. Replete lytes prn - Heme/ID: Afebrile. Rocephin, Diflucan, Flagyl, IV Vanc, oral Vanc. WBC 15.9 (1 2.9) > ID consulted, appreciate recs - Continue Rocephin, metronidazole, fluconazole for extended date due to febrile 09/08. Continue oral vanc two days after antibiotics stop. IV Vanc added due to positive blood cultures for strep > De-escalated to IV vancomycin only 09/11 > 2u pRBC intraop > 2u pRBC 09/06. > 09/08 PICC line blood culture: Staph epidermidis, susceptible to vanc > 09/08 left arm blood cultures: ngtd x2 > Remove PICC Line 09/09 > 09/10 blood cultures: ngtd x1 > 09/11 Hgb 8 - CANDLE MOLDER: lasix, bupropion, synthroid - Nicoderm patch and gum - OOB/Amb - Dispo: Continue inpatient care Prophylaxis Review: - DVT: SCD's, Lovenox - Catheter: Yes - Abx: Yes Nishant Perry MD PGY-3 Urology Please page urology source water protection specialist with questions SUBJECTIVE: No acute events overnight. Tolerated some regular diet yesterday. Nausea this mo rning without emesis. Ambulating. Minimal output per colostomy. OBJECTIVE: Vital Signs: Most Recent Vital Signs: Past 24 Ho urs BP: 90/53 (09/12 337) Temp: 36.8 C (98.2 F) (09/12 337) Pulse: 86 (06/29 0338) Respirations: 18 PER MINUTE (09/12 033) SpO2: 93 % (09/12 337) Weight: 73.5 kg (162 lb) (09/11 1110) BP: (86-93)/(45-61) Temp: [36.8 C (98.2 F)-37.2 C (98.9 F)] Pulse: [74-86] Respirations: [17 PER MINUTE-18 PER MINUTE] SpO2: [93 %-95 %] General: Alert & oriented, no acute distress Pulm: non-labored on RA CV: Regular rate Abd: Soft, appropriately tender, distention improved Incisions/Wounds: Appropriately tender to palpation. Midline incision stapled, s erosang drainage from inferior portion of incision. HEMA SS. Colostomy with liquid stool Extremities: No edema, SCD's in place : Salomon catheter in place draining clear yellow urine. Right NT draining clear yellow urine. Left NT draining clear yellow urine. Labs: Hematology Chemistry Recent Labs 09/12/20 0440 WBC 15.9* HGB 9.2* PLTCT 378 Recent Labs 09/12/20 0440 NA 136* K 4.3 CL 102 CO2 26 BUN 11 CR 0.88 GFR >60 GLU 95 CA 7.8* PO4 3.5 Intake/Output: Date 09/11/20700 - 09/12/20 0709/12/20 07 - 09/13/20 0700 Shift 1827-0907 7373-5160 24 Hour Total 3745-9774 7512-9203 24 Hour Total INTAKE P.O. 240 240 Other 20 20 Shift Total(mL/kg) 260(3.5) 260(3.5) OUTPUT Urine(mL/kg/hr) 1075(1.2) 575 1650 Urine Output (ml) (Indwelling Urinary Catheter 09/04/20 ) 50 0 50 Urine Output (ml) (NEPHROSTOMY TUBE 06/29/20 0828 Flank, Right Lower Lateral 8 FR) 475 225 700 Urine Output (ml) (NEPHROSTOMY TUBE 06/29/20 0828 Flank, Left Lower Lateral 8 FR) 550 350 900 Drains 250 55 305 Drain Output (ml) (Colostomy 09/04/20 1419 Upper Right Quadrant) 180 0 180 Drain Output (ml) (Giovanni Santoro Drain 09/04/20 1419 Anterior Abdomen #1) 70 5 5 125 Shift Total(mL/kg) 1325(18) 630(8.6) 1955(26.6) [facility] -9145 -777 -4627 Weight (kg) 73.5 73.5 73.5 73.5 73.5 73.5 Malnutrition Details: * Steve Montano, PT - 09/11/2020 3:47 PM CDT PHYSICAL THERAPY NOTE Name: Carlos Alberto Torres : 1950 Age: 70 y.o. Admission Date: 09/04/2020 LOS: 7 days Attempted to see patient 2x. She requested I come back. Upon return patient grayson hernandez worked with OT. Per OT hold PT today due to patients pain. Physical therapy will continue to follow and provide intervention as indicated. Therapist: Steve Montano, PT Date: 09/11/2020 * Kelly Salcedo, OT - 09/11/2020 3:17 PM CDT OCCUPATIONAL THERAPY PROGRESS NOTE Name: Carlos Alberto Torres : 1950 Age: 70 y.o. Admission Date: 09/04/2020 LOS: 7 days Mobility Progressive Mobility Level: Sit on edge of bed Level of Assistance: Assist X1 Time Tolerated: 0-10 minutes Activity Limited By: Pain;Weakness Subjective Pertinent Dx per Physician: 70 y.o. Female with large colovesical/vaginal fistul a s/p multiple surgeris for complications from diverticulitis now s/p ex-lap, fi stula excision, partial cystectomy, transverse end colostomy complicated by righ t internal iliac vein injury Precautions: Falls Pain / Complaints: Patient agrees to participate in therapy;Patient premedicated Objective Psychosocial Status: Willing and Cooperative to Participate Home Living Type of Home: House Home Layout: One Level Bathroom Shower / Tub: Tub/Shower Unit Prior Function Level Of [place]: Independent with ADLs and functional transfers;Independen t with homemaking w/ ambulation Lives With: Alone Other Function Comments: pt SO is currently hospitalized, daughters are supporti ve but unable to provide consistent assist ADL Mobility Bed Mobility: Supine to Sit: Minimal assist Bed Mobility: Sit to Supine: Minimal assist Bed Mobility Comments: assist for trunk, HOB elevated. increased time to achieve upright position with hips square. maintains sitting balance with SBA. is able to bridge slightly to scoot hips over once returned to supine Transfer Comments: attempted stand pivot to chair however pt with decreased init iation for standing and unable to achieve with RW or therapist HH assist. limite d by pain, reports she "doesn't have any oomph" this pm. returned to supine Activity Tolerance Endurance: 2/5 Tolerates 10-20 Minutes Exercise w/Multiple Rests Comment: cues for deep breathing Assessment Assessment: Decreased ADL Status;Decreased Endurance;Decreased Self-Care Trans;D ecreased High-Level ADLs Prognosis: Good Goal Formulation: Patient Comments: pt with decreased ability for functional mobility this date. currently recommending inpatient setting AM-PAC 6 Clicks Daily Activity Inpatient Putting on and taking off regular lower body clothes?: A Lot Bathing (Including washing, rinsing, drying): A Lot Toileting, which includes using toilet, bedpan, or urinal: Total Putting on and taking off regular upper body clothing: A Little Taking care of personal grooming such as brushing teeth: None Eating meals?: None Daily Activity Raw Score: 16 Standardized (t-scale) score: 35.96 CMS 0-100% Score: 53.32 CMS G Code Modifier: CK Plan OT Frequency: 5x/week OT Plan for Next Visit: LB dressing, progress functional endurance ADL Goals Patient Will Perform All ADL's: w/ Stand By Assist Functional Transfer Goals Pt Will Perform All Functional Transfers: w/ Stand By Assist OT Discharge Recommendations Recommendation: Inpatient setting Therapist: [place]/L [id number] Date: 09/11/2020 * Argenis Ward RN - 09/11/2020 2:45 PM CDT Images from the original note were not included. Wound Ostomy Note NAME:Carlos Alberto Torres :1950 AGE: 70 y.o. ADMISSION DATE: 09/04/2020 DAYS ADMITTED: LOS: 7 days Reason for Consult/Visit: ostomy education Assessment/Plan: Principal Problem: Colovesical fistula Active Problems: Acute blood loss anemia J LUIS (acute kidney injury) (HCC) Malnutrition (HCC) Bacteremia due to methicillin resistant Staphylococcus epidermidis Candidal urinary tract infection Ileus (HCC) Hypokalemia Ostomy team continuing to follow for ongoing ostomy education. Patient resting i n bed at time of visit, sleepy. NG tube removed and patient endorses improved pa in compared to last week. Ostomy pouch intact but due to be changed. Stoma with dark edges and covered with yellow slough. Surg-onc team is aware. So me of the yellow slough was removed today. Anticipate that to continue. Demonstrated how to empty/change pouch. Topics discussed: frequency of emptying/ changing pouch, how to empty/change pouch, stoma/peristomal skin care, pouch opt ions, how to cut pouch, how to obtain pouches. Questions answered. Patient instr ucted to assist bedside staff each time pouch is emptied. OSTOMY CARE: Suggested Pouching Supplies: #[id number] 1. Change pouch with any sign of leaking. Do not reinforce leaking pouch with tape 2. Clean skin with water only - no soap or wipes 3. If skin is broken down surrounding stoma, sprinkle stoma powder and wipe aw ay the excess 4. [place] no sting skin prep on powdered skin and let dry completely 5. Cut new pouch leaving 1/8"-1/4" of skin showing between the stoma and pouch 6. Warm new pouch in palm of hands 7. Ensure skin is dry and apply new pouch 8. Lay warm hand over pouch once it's applied Bedside RN is responsible for continuing ostomy education in between visits fr om our service. This can be achieved by including patient (and family) in ostomy care tasks such as pouch emptying and pouch changes. Colostomy 09/04/20 1419 Upper Right Quadrant (Active) 09/04/20 1419 Upper Right Quadrant Wound Image 09/11/20 1400 Agree With My Assessment? 09/11/20 1126 Stoma Assessment Dark Edges;Red;Dusky;Edema;Pale 09/11/20 1400 Drainage Description Brown 09/11/20 1400 Peristomal Skin Assessment Dry;Intact 09/11/20 1400 Dressing Status Changed/New 09/11/20 1400 Drain Output (ml) 150 ml 09/11/20 1400 JACINTO Wilson, RN, TCRN Wound/Ostomy Nursing Consult Service Available via Voalte or [facility] [employer] M-F [phone] After hours please contact wound/engraver lettering "call out clerk" via Voalte * Juany Ferguson MD - 09/11/2020 2:41 PM CDT Infectious Diseases Progress Note Today's Date: 09/11/2020 Admission Date: 09/04/2020 Reason for this consultation: complex patient has seen ID. Currently on rocephin , flagyl, fluconazole, and PO vanc for recurrent UTIs d/t colovesical fistula. H ad colovesical fistula takedown with partial cystectomy 09/04. Seeking recs on en d dates for abx or any need to change abx Type of Consultation: Co-Management w/Signed Orders Assessment: Carlos Alberto Torres is a 70 y.o. female with a medical history of diverticuliti s in 2011 leading to surgical history for and due to recurrent fistulization, mo st recently colovaginal and coloureteral/vesical. She has had recurrent UTI's du e to feculent urine and has been on and off several antibiotics over the past se veral years and especially since Dec, 2019. She has bilateral nephrostomy tubes in place following severe infection in June with VRE, Bacteroides, Brenda glab rata and Brenda parapsilosis on cultures. She received 14 days of daptomycin, m icafungin, metronidazole and a cephalosporin and was then transitioned to IV cef triaxone, metronidazole, fluconazole 200 mg daily until definitive surgery due t o high risk for severe infection. She had a first occurrence of C. Diff in June and has been on ppx PO vancomycin following treatment course. She was admitted 09/04 following colovesical fistula takedown, partial cystectomy, infected mesh e xcision and colectomy with colostomy creation. NGT placed on 09/07 d/t ileus and hospitalization has since been complicated by fever 09/08 AM and increasing O2 re quirement but appeared to be more volume overload on CXR. BCx from time of fever positive for MRSE from PICC BCx so removed PICC and treating for CLABSI w/ vanc omycin for 7d. Will stop other antimicrobials and continue PO vanc for C.diff pp x at this time. ID Problem List 1. 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 Fever 09/08 AM 3. MRSE CLABSI - on 09/08 BCx, PICC removed 09/09 4. Colostomy creation 09/04 5. Salomon catheter placed 09/04 6. Recent polymicrobial pyelonephritis - C. Glabrata, C. Parapsilosis, VRE, Bact eroides, Eggerthella w/ Intra-abdominal abscess 7. 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 B/L nephrostomy tubes placed in June, 9. Recent C. Diff colitis on PO Vanc BID 10. Poor PO intake on TPN 11. Ileus (09/07) 12. Antibiotic allergies: Bactrim- Hives 13. Acute hypoxic respiratory failure 14. Volume overload Recommendations: 1. Stop ceftriaxone, metronidazole and fluconazole 2. Continue IV vancomycin with pharmacy to assist in dosing. Will plan to contin ue either vancomycin (or switch to linezolid 600mg PO BID at discharge to avoid additional PICC) for 7-day total course from PICC removal through 09/16. 3. Continue PO vancomycin for C.diff ppx, will plan to continue for 2-days past end of other antimicrobials (tentative end date of 09/18 for PO vanc) 4. F/u cultures 5. If patient spikes fever again, would consider obtaining CT abd/pelv, obtain c ultures (including urine) and resume previous antimicrobials 6. Nephrostomy tube management per Urology Thank you for the consultation. ID will continue to peripherally follow. Juany Ferguson MD Pager [phone] Please contact preferentially via Voalte Interval Hx/Subjective Afebrile since 09/08. Continues to require ~2L O2 but other VSS. WBC continues to fluctuate, is 12.9k today. Abdominal pain improving, trying to eat regular diet today but still having some nausea. Having small output from ostomy. Denies cough, SOB, vomiting. Antimicrobial Start date End date Fluconazole 07/14 Active Cefepime 07/11 07/14 Cefpodoxime 07/05 07/11 Flagyl 07/03 Active Daptomycin 07/05 07/14 Micafungin 07/03 07/14 PO Vancomycin 07/05 Active Ceftriaxone 07/03-07/05; 07/14 Active Meropenem 06/28 07/03 Linezolid 06/28 07/05 IV Vancomycin 06/28 06/28 Azithromycin Unknown, ~06/22 06/26 Ciprofloxacin 06/20 ~06/22 Estimated Creatinine Clearance: 66.9 mL/min (based on SCr of 0.72 mg/dL). Medications Scheduled Meds:acetaminophen (TYLENOL) tablet 650 mg, 650 mg, Oral, Q6H* buPROPion XL (WELLBUTRIN XL) tablet 150 mg, 150 mg, Oral, QDAY cetirizine (ZyrTEC) tablet 10 mg, 10 mg, Oral, QDAY COVID-19 vacc,mRNA (MODERNA) PF immunization 100 mcg, 100 mcg, Intramuscular, New Car Inspector enoxaparin (LOVENOX) syringe 40 mg, 40 mg, Subcutaneous, QDAY() furosemide (LASIX) tablet 40 mg, 40 mg, Oral, QDAY gabapentin (NEURONTIN) capsule 300 mg, 300 mg, Oral, BID levothyroxine (SYNTHROID) tablet 50 mcg, 50 mcg, Oral, QDAY magnesium sulfate 1 g/D5W 100 mL IVPB, 1 g, Intravenous, Q4H* methocarbamoL (ROBAXIN) tablet 750 mg, 750 mg, Oral, TID nicotine (NICODERM CQ STEP 2) 14 mg/day patch 1 patch, 1 patch, Transdermal, Q24 H* oxybutynin XL (DITROPAN XL) tablet 15 mg, 15 mg, Oral, QDAY pantoprazole DR (PROTONIX) tablet 40 mg, 40 mg, Oral, QDAY scopolamine (TRANSDERM-SCOP) 1mg over 3 days patch 1 patch, 1 patch, Transdermal , Q72H* And Patch Documentation - Scopolamine base 1MG/72HR 1 patch, 1 patch, Transdermal, B ID polyethylene glycol 3350 (MIRALAX) packet 17 g, 1 packet, Oral, BID senna/docusate (SENOKOT-S) tablet 1 tablet, 1 tablet, Oral, BID vancomycin (VANCOCIN) 1,750 mg in sodium chloride 0.9% (NS) 285 mL IVPB, 1,750 m g, Intravenous, Q24H* Continuous Infusions: PRN and Respiratory Meds:aluminum/magnesium hydroxide PRN, HYDROmorphone (DILAUD ID) injection Q2H PRN, hyoscyamine Q4H PRN, lidocaine PF PRN, melatonin QHS PRN, nalOXone PRN, nicotine polacrilex Q1H PRN, [DISCONTINUED] ondansetron Q6H PRN * *OR ondansetron (ZOFRAN) IV Q6H PRN, oxyCODONE Q4H PRN, phenoL PRN, prochlorpe razine Q6H PRN, simethicone Q6H PRN, vancomycin, pharmacy to manage Per Pharmacy Physical Examination Vital Signs: Most Recent Vital Signs: 24 H our Range BP: 93/45 (09/11 1129) Temp: 36.9 C (98.4 F) (09/11 1129) Pulse: 74 (09/11 0813) Respirations: 18 PER MINUTE (09/11 1129) SpO2: 94 % (09/11 1129) BP: (89-106)/(45-62) Temp: [36.9 C (98.4 F)-37.2 C (98.9 F)] Pulse: [74-85] Respirations: [17 PER MINUTE-18 PER MINUTE] SpO2: [94 %-96 %] General appearance: Alert, oriented x 3, appears fatigued, elderly fem desiree, in NAD HENT: NC/AT, facial features symmetrical Eyes: Anicteric, EOMI Lungs: diminished BS in bases, no rhonchi, nonlabored Heart: Regular rhythm, reg rate, no murmur, rub or gallop Abdomen: RLQ colostomy in place w/ minimal output in bag. Midline incision well approximated with erum, w/ small amount serosanguinous fluid at incision. L s ided abdominal hernia. Hypoactive bowel sounds. Mild TTP around incision but imp roved overall. Ext: No clubbing, cyanosis, trace BLE edema, not hot or swollen joints Skin: No rashes/lesions Psych: Appropriate mood and affect Lines: RUE peripheral IV Drains/tubes: B/L nephrostomy tubes with clear yellow urine, salomon catheter with bloody urine, LLQ HEMA drain with bloody drainage. RLQ colostomy with serosanguin ous output in appliance Lab Review Hematology Recent Labs 09/09/20 0510 09/10/20 0440 09/11/20 0432 WBC 11.1* 12.4* 12.9* HGB 8.1* 8.0* 8.0* HCT 23.7* 24.8* 23.3* PLTCT 228 264 277 Chemistry Recent Labs 09/09/20 0510 09/10/20 0440 09/11/20 0432 NA 144 141 141 K 3.7 4.1 3.2* CL 109 108 110 CO2 29 25 20* BUN 20 17 10 CR 0.66 0.69 0.72 GFR >60 >60 >60 GLU 116* 78 71 CA 7.7* 7.7* 6.1* PO4 3.4 3.5 5.7* Microbiology, Radiology and other Diagnostics Review Microbiology: 09/08 BCx x2 w/ 1/2 MRSE (positive from PICC, peripheral negative) 09/10 BCx x2 NGTD Microbiology data reviewed. Radiology: 09/08 CXR 1. Placement of gastric tube as described. 2. Small left greater than right pleural effusions with bibasilar left greater than right opacities, which may represent atelectasis and/or pneumonia. 3. Mild diffuse bilateral interstitial opacities, likely representing pulmonary edema. Pertinent radiology images viewed. * Sami Bermudez MD - 09/11/2020 7:02 AM CDT Colorectal Surgery Daily Progress Note Today's Date: 09/11/2020 Name: Carlos Alberto Torres Admission Date: 09/04/2020 (LOS: 7 days) Assessment: 70 y.o. female OR date: 09/04/2020 Principal Problem: Colovesical fistula Active Problems: Acute blood loss anemia J LUIS (acute kidney injury) (HCC) Malnutrition (HCC) Plan: -Tolerating clears, recommend regular diet. Encouraged patient to self regulate. -Ostomy is pink and viable with output. Wound/Ostomy team for education. -Remainder of care per primary team -Discussed and seen patient with Dr. Chow who directed plan of care _ Subjective: No acute events over night. Pain controlled. Denies any nausea or emesis. Objective: BP: (90-106)/(50-62) Temp: [36.7 C (98 F)-37.1 C (98.8 F)] Pulse: [75-85] Respirations: [17 PER MINUTE-18 PER MINUTE] SpO2: [94 %-98 %] Lab Results Component Value Date/Time HGB 8.0 (L) 09/11/2020 0432 WBC 12.9 (H) 09/11/2020 0432 ] Lab Results Component Value Date/Time NA 141 09/11/2020 0432 K 3.2 (L) 09/11/2020 0432 CL 110 09/11/2020 0432 CO2 20 (L) 09/11/2020 0432 BUN 10 09/11/2020 0432 CR 0.72 09/11/2020 0432 ] Physical Exam: GEN: NAD, Alert CARDIO: RRR, well perfused PULM: No respiratory distress ABD: Soft, minimally distended, appropriately TTP, incision c/d/i, ostomy pink a nd viable with ostomy output. EXT: No cyanosis or edema NEURO: Gross motor in UE and LE b/l. Sensory intact. Sami Bermudez MD Team Pager: # [phone] Associated attestation - Anurag Chow MD - 09/13/2020 6:51 AM CDT ATTESTATION I personally performed the jurado portions of the E/M visit, discussed case with re sident and concur with resident documentation of history, physical exam, assessm ent, and treatment plan unless otherwise noted. Staff name: Anurag Chow MD Date: 09/13/2020 * Laure Hull MD - 09/11/2020 5:23 AM CDT Urology Progress Note 09/11/2020 ASSESSMENT: Carlos Alberto Torres is a 70 y.o. Female with large colovesical/vaginal fistula s/p multiple surgeris for complications from diverticulitis now s/p ex-lap, fist benjy excision, partial cystectomy, transverse end colostomy complicated by right internal iliac vein injury LOS: 7 days ACTIVE PROBLEMS: Principal Problem: Colovesical fistula Active Problems: Acute blood loss anemia J LUIS (acute kidney injury) (HCC) Malnutrition (HCC) PLAN: will discuss plan with staff surgeon - Dr. Cárdenas - Pain control: PO with IV - Card/Resp: CXR 09/08 demonstrated pulmonary edema. S/p Lasix 20mg > Titrate O2 as able - Diet/FEN: Diet per colorectal team. > NGT Removed on rounds 09/09. > Holding TPN due to positive blood culture. PICC removed 09/09 - GI: bowel regimen, zofran prn - : Salomon catheter with antispasmodics in place. Right and Left NT in place. - Renal: Cr 0.72. Replete lytes prn - Heme/ID: Afebrile. Rocephin, Diflucan, Flagyl, IV Vanc, oral Vanc. WBC 12.9 (1 2.4) > ID consulted, appreciate recs - Continue Rocephin, metronidazole, fluconazole for extended date due to febrile 09/08. Continue oral vanc two days after antibiotics stop. IV Vanc added due to positive blood cultures for strep > If continues to be febrile, considering transitioning rocephin, flagyl to Zosyn and obtain CT > 2u pRBC intraop > 2u pRBC 09/06. > 09/08 PICC line blood culture: Staph epidermidis, susceptible to vanc > 09/08 left arm blood cultures: ngtd x2 > Remove PICC Line 09/09 > 09/10 blood cultures: ngtd x1 > 09/11 Hgb 8 - CANDLE MOLDER: lasix, bupropion, synthroid - Nicoderm patch and gum - OOB/Amb - Dispo: Continue inpatient care Prophylaxis Review: - DVT: SCD's, Lovenox - Catheter: Yes - Abx: Yes Laure Hull MD PGY-1 Urology Please page urology source water protection specialist with questions SUBJECTIVE: No acute events overnight. Pain is controlled. Tolerating clear liquids. Mild na usea that resolved, no emesis. OBJECTIVE: Vital Signs: Most Recent Vital Signs: Past 24 Ho urs BP: 98/52 (09/11 500) Temp: 36.9 C (98.4 F) (09/11 500) Pulse: 85 (09/11 500) Respirations: 17 PER MINUTE (09/11 500) SpO2: 96 % (09/11 500) BP: (90-106)/(50-62) Temp: [36.7 C (98 F)-37.1 C (98.8 F)] Pulse: [75-85] Respirations: [17 PER MINUTE-18 PER MINUTE] SpO2: [94 %-98 %] General: Alert & oriented, no acute distress Pulm: non-labored on RA CV: Regular rate Abd: Soft, appropriately tender, distention improved Incisions/Wounds: Appropriately tender to palpation. Midline incision stapled c/ d/i. HEMA SS. Colostomy with liquid stool Extremities: No edema, SCD's in place : Salomon catheter in place draining clear yellow urine. Right NT draining clear yellow urine. Left NT draining clear yellow urine. Labs: Hematology Chemistry Recent Labs 09/11/20 0432 WBC 12.9* HGB 8.0* PLTCT 277 Recent Labs 09/10/20 0440 NA 141 K 4.1 CL 108 CO2 25 BUN 17 CR 0.69 GFR >60 GLU 78 CA 7.7* PO4 3.5 Intake/Output: Date 09/10/20 07 - 09/11/20 0709/11/20 07 - 09/12/20 07 Shift 6451-7398 6700-4970 24 Hour Total 8982-1310 6510-2246 24 Hour Total INTAKE P.O. 520 0 520 Other 20 20 Shift Total(mL/kg) 540(7.1) 0(0) 540(7.1) OUTPUT Urine(mL/kg/hr) 975(1.1) 1725 2700 Urine Output (ml) (Indwelling Urinary Catheter 09/04/20 ) 400 0 400 Urine Output (ml) (NEPHROSTOMY TUBE 06/29/20 0828 Flank, Right Lower Lateral 8 FR) 125 650 775 Urine Output (ml) (NEPHROSTOMY TUBE 06/29/20 0828 Flank, Left Lower Lateral 8 FR) 450 1075 1525 Drains 90 130 220 Drain Output (ml) (Colostomy 09/04/20 1419 Upper Right Quadrant) 10 50 60 Drain Output (ml) (Giovanni Santoro Drain 09/04/20 1419 Anterior Abdomen #1) 80 8 0 160 Shift Total(mL/kg) 1065(14) 1855(24.4) 2920(38.3) [facility] -073 -3966 -3404 Weight (kg) 76.2 76.2 76.2 76.2 76.2 76.2 Malnutrition Details: Associated attestation - Lorena Rodriguez MD - 09/12/2020 4:53 PM CDT Attestation I saw and evaluated pt with the resident on rounds and performed the jurado portion s of the e/m. I agree with the above assessment and plan. Pt with acute pulmon matti edema that is resolving, her O2 requirements are decreasing. Appreciate ID help with CLABSI, continue vanc per their note. Pt was able to tolerate regular food today with decreased appetite. Encouraged ambulation. Will evaluate food intake to assess need for TPN. Continue inpt care. Lorena Rodriguez MD, FACS * LaraSami MD - 09/10/2020 11:34 AM CDT Colorectal Surgery Daily Progress Note Today's Date: 09/10/2020 Name: Carlos Alberto Torres Admission Date: 09/04/2020 (LOS: 6 days) Assessment: 70 y.o. female OR date: 09/04/2020 Principal Problem: Colovesical fistula Active Problems: Acute blood loss anemia J LUIS (acute kidney injury) (HCC) Malnutrition (HCC) Plan: -Recommend trial clear liquids today. -Ostomy is pink and viable with minimal output. Wound/Ostomy team for education . -Remainder of care per primary team -Discussed and seen patient with Dr. Chow who directed plan of care _ Subjective: No acute events over night. Pain controlled. Denies any nausea or emesis. Objective: BP: (90-122)/(50-70) Temp: [36.7 C (98 F)-37.1 C (98.7 F)] Pulse: [77-93] Respirations: [16 PER MINUTE-18 PER MINUTE] SpO2: [92 %-95 %] Lab Results Component Value Date/Time HGB 8.0 (L) 09/10/2020 0440 WBC 12.4 (H) 09/10/2020 0440 ] Lab Results Component Value Date/Time NA 141 09/10/2020 0440 K 4.1 09/10/2020 0440 CL 108 09/10/2020 0440 CO2 25 09/10/2020 0440 BUN 17 09/10/2020 0440 CR 0.69 09/10/2020 0440 ] Physical Exam: GEN: NAD, Alert CARDIO: RRR, well perfused PULM: No respiratory distress ABD: Soft, minimally distended, appropriately TTP, incision c/d/i, ostomy pink a nd viable without ostomy output. EXT: No cyanosis or edema NEURO: Gross motor in UE and LE b/l. Sensory intact. Sami Bermudez MD Team Pager: # [phone] Associated attestation - Anurag Chow MD - 09/10/2020 11:42 AM CDT ATTESTATION I personally performed the jurado portions of the E/M visit, discussed case with re sident and concur with resident documentation of history, physical exam, assessm ent, and treatment plan unless otherwise noted. Staff name: Anurag Chow MD Date: 09/10/2020 * Laure Hull MD - 09/10/2020 6:50 AM CDT Urology Progress Note 09/10/2020 ASSESSMENT: Carlos Alberto Torres is a 70 y.o. Female with large colovesical/vaginal fistula s/p multiple surgeris for complications from diverticulitis now s/p ex-lap, fist benjy excision, partial cystectomy, transverse end colostomy complicated by right internal iliac vein injury LOS: 6 days ACTIVE PROBLEMS: Principal Problem: Colovesical fistula Active Problems: Acute blood loss anemia J LUIS (acute kidney injury) (HCC) Malnutrition (HCC) PLAN: will discuss plan with staff surgeon - Dr. Cárdenas - Pain control: PO with IV - Card/Resp: CXR 09/08 demonstrated pulmonary edema. S/p Lasix 20mg > Titrate O2 as able - Diet/FEN: Diet per colorectal team. > NGT Removed on rounds 09/09. > Holding TPN due to positive blood culture. PICC removed 09/09 - GI: bowel regimen, zofran prn - : Salomon catheter with antispasmodics in place. Right and Left NT in place. - Renal: Cr 0.69. Replete lytes prn - Heme/ID: Afebrile. Rocephin, Diflucan, Flagyl, IV Vanc, oral Vanc. WBC 12.4 (1 1.1) > ID consulted, appreciate recs - Continue Rocephin, metronidazole, fluconazole for extended date due to febrile 09/08. Continue oral vanc two days after antibiotics stop. IV Vanc added due to positive blood cultures for strep > If continues to be febrile, considering transitioning rocephin, flagyl to Zosyn and obtain CT > 2u pRBC intraop > 2u pRBC 09/06. > 09/10: Hgb 8.0 (8.1) > 09/08 PICC line blood culture: Staph epidermidis, susceptibilites pending > 09/09 left arm blood cultures: ngtd x2 > Remove PICC Line 09/09 > Repeat blood cultures drawn 09/10 - CANDLE MOLDER: lasix, bupropion, synthroid - Nicoderm patch and gum - OOB/Amb - Dispo: Continue inpatient care Prophylaxis Review: - DVT: SCD's, Lovenox - Catheter: Yes - Abx: Yes Laure Hull MD PGY-1 Urology Please page urology source water protection specialist with questions SUBJECTIVE: No acute events overnight. Pain is controlled. Tolerating ice chips. Having tran e nausea last night, which has resolved, no emesis. Out of bed to chair, but no ambulation outside of room. Liquid stool in ostomy. OBJECTIVE: Vital Signs: Most Recent Vital Signs: Past 24 Ho urs BP: 90/54 (09/10 321) Temp: 36.9 C (98.5 F) (09/10 321) Pulse: 78 (09/10 321) Respirations: 16 PER MINUTE (09/10 321) SpO2: 92 % (09/10 321) BP: (89-122)/(52-70) Temp: [36.8 C (98.3 F)-37.1 C (98.7 F)] Pulse: [78-97] Respirations: [16 PER MINUTE-18 PER MINUTE] SpO2: [92 %-96 %] General: Alert & oriented, no acute distress Pulm: non-labored on RA CV: Regular rate Abd: Soft, appropriately tender, distention improved Incisions/Wounds: Appropriately tender to palpation. Midline incision stapled c/ d/i. HEMA SS. Colostomy with liquid stool Extremities: No edema, SCD's in place : Salomon catheter in place draining clear yellow urine. Right NT draining clear yellow urine. Left NT draining clear yellow urine. Labs: Hematology Chemistry Recent Labs 09/10/20 0440 WBC 12.4* HGB 8.0* PLTCT 264 Recent Labs 09/10/20 0440 NA 141 K 4.1 CL 108 CO2 25 BUN 17 CR 0.69 GFR >60 GLU 78 CA 7.7* PO4 3.5 Intake/Output: Date 09/09/20 07 - 09/10/20 0709/10/20700 - 09/11/20 07 Shift 0317-7999 6028-5749 24 Hour Total 9165-0737 6313-7398 24 Hour Total INTAKE I.V.(mL/kg/hr) 400 400 I.V.P.B./FLUSHES 290 100 390 Shift Total(mL/kg) 290(3.8) 500(6.6) 790(10.4) OUTPUT Urine(mL/kg/hr) 300(0.3) 675 975 Urine Output (ml) (Indwelling Urinary Catheter 09/04/20 ) 0 0 0 Urine Output (ml) (NEPHROSTOMY TUBE 06/29/20 0828 Flank, Right Lower Lateral 8 FR) 150 350 500 Urine Output (ml) (NEPHROSTOMY TUBE 06/29/20 0828 Flank, Left Lower Lateral 8 FR) 150 325 475 Drains 115 255 370 Drain Output (ml) (Colostomy 09/04/20 1419 Upper Right Quadrant) 100 225 325 Drain Output (ml) (Giovanni Santoro Drain 09/04/20 1419 Anterior Abdomen #1) 15 3 0 45 Drain Output (ml) ([REMOVED] Nasogastric Tube 09/07/20 1000 Nose 16 FR) 0 0 Shift Total(mL/kg) 415(5.4) 930(12.2) 1345(17.7) NET -125 -736 -907 Weight (kg) 76.2 76.2 76.2 76.2 76.2 76.2 Malnutrition Details: I personally saw and evaluated the patient on morning rounds today 09/09/2020 wi th the Urology Resident Team. She is doing well overall. Plan to remove PICC l ine today. Will continue to slowly advance diet with some sips today, possible clear liquids tomorrow if continues to do well. Work on being up out of bed. A bdomen soft non-distended. I personally saw and evaluated the patient and determined the plan of care. I p ersonally performed the jurado portions of the E&M visit, discussed the case with the resident, and concur with resident documentation of history, physical examination, assessment, and treatment plan unless otherwise noted. Boogie Cárdenas MD, MPH * Sixto Ordonez MD - 09/09/2020 9:22 AM CDT Colorectal Surgery Daily Progress Note Today's Date: 09/09/2020 Name: Carlos Alberto Torres Admission Date: 09/04/2020 (LOS: 5 days) Assessment: 70 y.o. female OR date: 09/04/2020 Principal Problem: Colovesical fistula Active Problems: Acute blood loss anemia J LUIS (acute kidney injury) (HCC) Malnutrition (HCC) Plan: -Minimal NGT output and denies nausea, NGT removed this morning. Would recommen d to continue NPO diet but okay to have ice chips as well as sips of clear liqui ds. -Ostomy is pink and viable with minimal output. Wound/Ostomy team for education . -Remainder of care per primary team -Discussed and seen patient with Dr. Chow who directed plan of care _ Subjective: No acute events over night. Pain controlled. Denies any nausea or emesis. No o stomy function yet. Objective: BP: (81-116)/(49-62) Temp: [36.4 C (97.5 F)-37 C (98.6 F)] Pulse: [81-110] Respirations: [18 PER MINUTE-20 PER MINUTE] SpO2: [90 %-94 %] Lab Results Component Value Date/Time HGB 8.1 (L) 09/09/2020 0510 WBC 11.1 (H) 09/09/2020 0510 ] Lab Results Component Value Date/Time NA 144 09/09/2020 0510 K 3.7 09/09/2020 0510 CL 109 09/09/2020 0510 CO2 29 09/09/2020 0510 BUN 20 09/09/2020 0510 CR 0.66 09/09/2020 0510 ] Physical Exam: GEN: NAD, Alert CARDIO: RRR, well perfused PULM: No respiratory distress ABD: Soft, minimally distended, appropriately TTP, incision c/d/i, ostomy pink a nd viable without ostomy output. EXT: No cyanosis or edema NEURO: Gross motor in UE and LE b/l. Sensory intact. Sixto Ordonez MD Team Pager: # [phone] Associated attestation - Anurag Chow MD - 09/10/2020 10:30 AM CDT ATTESTATION I personally performed the jurado portions of the E/M visit, discussed case with re sident and concur with resident documentation of history, physical exam, assessm ent, and treatment plan unless otherwise noted. Staff name: Anurag Chow MD Date: 09/10/2020 * Juany Ferguson MD - 09/09/2020 7:51 AM CDT Infectious Diseases Progress Note Today's Date: 09/09/2020 Admission Date: 09/04/2020 Reason for this consultation: complex patient has seen ID. Currently on rocephin , flagyl, fluconazole, and PO vanc for recurrent UTIs d/t colovesical fistula. H ad colovesical fistula takedown with partial cystectomy 09/04. Seeking recs on en d dates for abx or any need to change abx Type of Consultation: Co-Management w/Signed Orders Assessment: Carlos Alberto Torres is a 70 y.o. female with a medical history of diverticuliti s in 2011 leading to surgical history for and due to recurrent fistulization, mo st recently colovaginal and coloureteral/vesical. She has had recurrent UTI's du e to feculent urine and has been on and off several antibiotics over the past se veral years and especially since Dec, 2019. She has bilateral nephrostomy tubes in place following severe infection in June with VRE, Bacteroides, Brenda glab rata and Brenda parapsilosis on cultures. She received 14 days of daptomycin, m icafungin, metronidazole and a cephalosporin and was then transitioned to IV cef triaxone, metronidazole, fluconazole 200 mg daily until definitive surgery due t o high risk for severe infection. She had a first occurrence of C. Diff in June and has been on ppx PO vancomycin following treatment course. She was admitted 09/04 following colovesical fistula takedown, partial cystectomy, infected mesh e xcision and colectomy with colostomy creation. NGT placed on 09/07 d/t ileus and hospitalization has since been complicated by fever 25 AM and increasing O2 re quirement but appeared to be more volume overload on CXR. BCx from time of fever now positive for MRSE from PICC BCx so will remove PICC and treat for suspected CLABSI. ID Problem List 1. 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 Fever 25 AM 3. MRSE CLABSI - on 09/08 BCx, PICC removed 09/09 4. Colostomy creation 09/04 5. Salomon catheter placed 09/04 6. Recent polymicrobial pyelonephritis - C. Glabrata, C. Parapsilosis, VRE, Bact eroides, Eggerthella w/ Intra-abdominal abscess 7. 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 B/L nephrostomy tubes placed in June, 9. Recent C. Diff colitis on PO Vanc BID 10. Poor PO intake on TPN 11. Ileus (09/07) 12. Antibiotic allergies: Bactrim- Hives 13. Acute hypoxic respiratory failure 14. Volume overload Recommendations: 1. Will extend ceftriaxone, metronidazole and fluconazole for now and still plan on continuing PO vancomycin until 2 days after completion of other antibiotics 2. Remove PICC line 3. Start IV vancomycin with pharmacy to assist in dosing (ordered) 4. F/u cultures 5. Repeat BCx x2 tomorrow 6. If patient spikes fever again, would consider obtaining CT abd/pelv 7. Nephrostomy tube management per Urology Thank you for the consultation. We will continue to co-manage the patient with dylan Ferguson MD Pager [phone] Please contact preferentially via Voalte Interval Hx/Subjective Afebrile overnight. O2 improved to 2L. WBC still improving to 11.1k. 09/08 BCx positive for MRSE from PICC. Primary team planning on removing PICC. Feels worse today after NG tube removed - feeling nauseated and having some abdo hannah cramping at times. No vomiting though. Some small output through ostomy. Reports some discomfort when having PICC pulled. Antimicrobial Start date End date Fluconazole 07/14 Active Cefepime 07/11 07/14 Cefpodoxime 07/05 07/11 Flagyl 07/03 Active Daptomycin 07/05 07/14 Micafungin 07/03 07/14 PO Vancomycin 07/05 Active Ceftriaxone 07/03-07/05; 07/14 Active Meropenem 06/28 07/03 Linezolid 06/28 07/05 IV Vancomycin 06/28 06/28 Azithromycin Unknown, ~06/22 06/26 Ciprofloxacin 06/20 ~06/22 Estimated Creatinine Clearance: 70.2 mL/min (based on SCr of 0.66 mg/dL). Medications Scheduled Meds:acetaminophen (TYLENOL) tablet 650 mg, 650 mg, Oral, Q6H* buPROPion XL (WELLBUTRIN XL) tablet 150 mg, 150 mg, Oral, QDAY cefTRIAXone (ROCEPHIN) IVP 2 g, 2 g, Intravenous, Q24H* cetirizine (ZyrTEC) tablet 10 mg, 10 mg, Oral, QDAY COVID-19 vacc,mRNA (MODERNA) PF immunization 100 mcg, 100 mcg, Intramuscular, New Car Inspector enoxaparin (LOVENOX) syringe 40 mg, 40 mg, Subcutaneous, QDAY(21) fluconazole (DIFLUCAN) tablet 200 mg, 200 mg, Oral, QDAY furosemide (LASIX) tablet 40 mg, 40 mg, Oral, QDAY gabapentin (NEURONTIN) capsule 300 mg, 300 mg, Oral, BID levothyroxine (SYNTHROID) tablet 50 mcg, 50 mcg, Oral, QDAY methocarbamoL (ROBAXIN) tablet 750 mg, 750 mg, Oral, TID metroNIDAZOLE (FLAGYL) 500 mg IVPB 100 mL, 500 mg, Intravenous, Q12H* nicotine (NICODERM CQ STEP 2) 14 mg/day patch 1 patch, 1 patch, Transdermal, Q24 H* oxybutynin XL (DITROPAN XL) tablet 15 mg, 15 mg, Oral, QDAY pantoprazole DR (PROTONIX) tablet 40 mg, 40 mg, Oral, QDAY scopolamine (TRANSDERM-SCOP) 1mg over 3 days patch 1 patch, 1 patch, Transdermal , Q72H* And Patch Documentation - Scopolamine base 1MG/72HR 1 patch, 1 patch, Transdermal, B ID polyethylene glycol 3350 (MIRALAX) packet 17 g, 1 packet, Oral, BID senna/docusate (SENOKOT-S) tablet 1 tablet, 1 tablet, Oral, BID vancomycin (FIRVANQ) oral solution 125 mg, 125 mg, Oral, BID vancomycin (VANCOCIN) 1,250 mg in sodium chloride 0.9% (NS) 275 mL IVPB, 15 mg/k g, Intravenous, ONCE Followed by vancomycin (VANCOCIN) 1,250 mg in sodium chloride 0.9% (NS) 275 mL IVPB, 15 mg/k g, Intravenous, Q12H* Continuous Infusions: Adult Continuous Parenteral Nutrition (PN) Stopped (09/09/20 0612) PRN and Respiratory Meds:HYDROmorphone (DILAUDID) injection Q2H PRN, hyoscyamine Q4H PRN, lidocaine PF PRN, melatonin QHS PRN, nalOXone PRN, nicotine polacrilex Q1H PRN, [DISCONTINUED] ondansetron Q6H PRN OR ondansetron (ZOFRAN) IV Q6H PRN, oxyCODONE Q4H PRN, phenoL PRN, prochlorperazine Q6H PRN, simethicone Q6H SD N, vancomycin, pharmacy to manage Per Pharmacy Physical Examination Vital Signs: Most Recent Vital Signs: 24 H our Range BP: 116/55 (09/10 399) Temp: 36.9 C (98.4 F) (09/09 0400) Pulse: 81 (09/10 399) Respirations: 18 PER MINUTE (09/10 399) SpO2: 94 % (09/10 399) BP: (81-116)/(49-62) Temp: [36.4 C (97.5 F)-37 C (98.6 F)] Pulse: [81-110] Respirations: [18 PER MINUTE-20 PER MINUTE] SpO2: [90 %-94 %] General appearance: Alert, oriented x 3, appears fatigued, elderly fem desiree, in NAD HENT: NC/AT, facial features symmetrical Eyes: Anicteric, EOMI Lungs: diminished BS in bases, no rhonchi, nonlabored Heart: Regular rhythm, reg rate, no murmur, rub or gallop Abdomen: RLQ colostomy in place w/ some output in bag. Midline incision well filipe roximated with erum slightly indurated/erythematous distally. L sided abdomin al hernia. Hypoactive bowel sounds. Mild TTP, more tender around incision overal l but no guarding or rebound. Ext: No clubbing, cyanosis or edema, not hot or swollen joints Skin: No rashes/lesions Psych: Appropriate mood and affect Lines: LUE peripheral IV, RUE PICC now removed Drains/tubes: B/L nephrostomy tubes with clear yellow urine, salomon catheter with bloody urine, LLQ HEMA drain with bloody drainage. RLQ colostomy with serosanguin ous output in appliance Lab Review Hematology Recent Labs 09/07/20 0330 09/08/20 0330 09/09/20 0510 WBC 16.5* 11.9* 11.1* HGB 9.5* 8.4* 8.1* HCT 27.6* 24.8* 23.7* PLTCT 231 211 228 Chemistry Recent Labs 09/07/20 0330 09/08/20 0330 09/09/20 0510 NA 138 143 144 K 3.6 3.7 3.7 CL 107 109 109 CO2 23 27 29 BUN 23 19 20 CR 0.77 0.76 0.66 GFR >60 >60 >60 GLU 153* 101* 116* CA 8.2* 7.7* 7.7* PO4 1.9* 2.6 3.4 ALBUMIN -- 2.4* -- ALKPHOS -- 107 -- AST -- 18 -- ALT -- 9 -- TOTBILI -- 0.8 -- Microbiology, Radiology and other Diagnostics Review Microbiology: 09/08 BCx x2 w/ 03/18 MRSE (positive from PICC, peripheral negative) Microbiology data reviewed. Radiology: 09/08 CXR 1. Placement of gastric tube as described. 2. Small left greater than right pleural effusions with bibasilar left greater than right opacities, which may represent atelectasis and/or pneumonia. 3. Mild diffuse bilateral interstitial opacities, likely representing pulmonary edema. Pertinent radiology images viewed. * Boogie Cárdenas MD - 09/09/2020 6:28 AM CDT Urology Progress Note 09/09/2020 ASSESSMENT: Carlos Alberto Torres is a 70 y.o. Female with large colovesical/vaginal fistula s/p multiple surgeris for complications from diverticulitis now s/p ex-lap, fist benjy excision, partial cystectomy, transverse end colostomy complicated by right internal iliac vein injury LOS: 5 days ACTIVE PROBLEMS: Principal Problem: Colovesical fistula Active Problems: Acute blood loss anemia J LUIS (acute kidney injury) (HCC) Malnutrition (HCC) PLAN: will discuss plan with staff surgeon - Dr. Cárdenas - Pain control: PO with IV - Card/Resp: CXR 09/08 demonstrated pulmonary edema. S/p Lasix 20mg > Titrate O2 as able - Diet/FEN: Diet per colorectal team. > NGT in place to low intermittent wall suction. Removed on rounds 09/09. > Holding TPN due to positive blood culture. Removing PICC today. - GI: bowel regimen, zofran prn - : Salomon catheter with antispasmodics in place. Right and Left NT in place. - Renal: Cr 0.76. Replete lytes prn - Heme/ID: Afebrile. Rocephin, Diflucan, Flagyl, oral Vanc. WBC 11.1 (11.9) > ID consulted, appreciate recs - Continue Rocephin, metronidazole, fluconazole extended due to febrile 09/08. Continue oral vanc two days after antibiotics stop. IV Vanc added due to positive blood cultures for strep > If continues to be febrile, considering transitioning rocephin, flagyl to Zosyn and obtain CT > 2u pRBC intraop > 2u pRBC 09/06. > 09/08: Hgb 8.1 (8.4) > 09/08 blood cultures: gram positive cocci. Cultures pending > Remove PICC Line today, blood cultures later today. - CANDLE MOLDER: lasix, bupropion, synthroid - Nicoderm patch and gum - OOB/Amb - Dispo: Continue inpatient care Prophylaxis Review: - DVT: SCD's, Lovenox - Catheter: Yes - Abx: Yes Laure Hull MD PGY-1 Urology Please page urology source water protection specialist with questions SUBJECTIVE: No acute events overnight. Oxygen titrated down to 2L. Pain is controlled. Havi ng some nausea, which has resolved, no emesis. Abdominal pain improved. Has not ambulated. Liquid stool in ostomy. OBJECTIVE: Vital Signs: Most Recent Vital Signs: Past 24 Ho urs BP: 116/55 (09/10 399) Temp: 36.9 C (98.4 F) (09/10 399) Pulse: 81 (09/10 399) Respirations: 18 PER MINUTE (09/10 399) SpO2: 94 % (09/10 399) BP: (81-116)/(49-62) Temp: [36.4 C (97.5 F)-37.8 C (100 F)] Pulse: [81-110] Respirations: [18 PER MINUTE-20 PER MINUTE] SpO2: [90 %-94 %] General: Alert & oriented, no acute distress Pulm: non-labored on RA CV: Regular rate Abd: Soft, appropriately tender, distention improved Incisions/Wounds: Appropriately tender to palpation. Midline incision with dress ing with mild saturation inferiorly. HEMA SS. Colostomy with liquid stool Extremities: No edema, SCD's in place : Salomon catheter in place draining clear yellow urine. Right NT draining clear yellow urine. Left NT draining clear yellow urine. Labs: Hematology Chemistry Recent Labs 09/09/20 0510 WBC 11.1* HGB 8.1* PLTCT 228 Recent Labs 09/09/20 0510 NA 144 K 3.7 CL 109 CO2 29 BUN 20 CR 0.66 GFR >60 GLU 116* CA 7.7* PO4 3.4 Intake/Output: Date 09/08/20700 - 09/09/20 0700 09/09/20 0701 - 09/10/20 0700 Shift 7756-3577 5831-6566 24 Hour Total 3008-4438 5148-8323 24 Hour Total INTAKE P.O. 100 100 Other 20 20 Shift Total(mL/kg) 120(1.6) 120(1.6) OUTPUT Urine(mL/kg/hr) 1655(1.8) 625 2280 Urine Output (ml) (Indwelling Urinary Catheter 09/04/20 ) 325 50 375 Urine Output (ml) (NEPHROSTOMY TUBE 06/29/20 0828 Flank, Right Lower Lateral 8 FR) 720 250 970 Urine Output (ml) (NEPHROSTOMY TUBE 06/29/20 0828 Flank, Left Lower Lateral 8 FR) 610 325 935 Drains 300 0 300 Drain Output (ml) (Colostomy 09/04/20 1419 Upper Right Quadrant) 0 0 Drain Output (ml) (Giovanni Santoro Drain 09/04/20 1419 Anterior Abdomen #1) 0 0 0 Drain Output (ml) (Nasogastric Tube 09/07/20 1000 Nose 16 FR) 300 300 Shift Total(mL/kg) 1955(25.7) 625(8.2) 2580(33.9) NET -4115 -949 -8548 Weight (kg) 76.2 76.2 76.2 76.2 76.2 76.2 Malnutrition Details: I personally saw and evaluated the patient on morning rounds today 09/09/2020 wi the Urology Resident Team. She is doing well overall. Plan to remove PICC l ine today. Will continue to slowly advance diet with some sips today, possible clear liquids tomorrow if continues to do well. Work on being up out of bed. A bdomen soft non-distended. I personally saw and evaluated the patient and determined the plan of care. I p ersonally performed the jurado portions of the E&M visit, discussed the case with the resident, and concur with resident documentation of history, physical examination, assessment, and treatment plan unless otherwise noted. Boogie Cárdenas MD, MPH * Juany Ferguson MD - 09/08/2020 4:28 PM CDT Infectious Diseases Progress Note Today's Date: 09/08/2020 Admission Date: 09/04/2020 Reason for this consultation: complex patient has seen ID. Currently on rocephin , flagyl, fluconazole, and PO vanc for recurrent UTIs d/t colovesical fistula. H ad colovesical fistula takedown with partial cystectomy 09/04. Seeking recs on en d dates for abx or any need to change abx Type of Consultation: Co-Management w/Signed Orders Assessment: Carlos Alberto Torres is a 70 y.o. female with a medical history of diverticuliti s in 2011 leading to surgical history for and due to recurrent fistulization, mo st recently colovaginal and coloureteral/vesical. She has had recurrent UTI's du e to feculent urine and has been on and off several antibiotics over the past se veral years and especially since Dec, 2019. She has bilateral nephrostomy tubes in place following severe infection in June with VRE, Bacteroides, Brenda glab rata and Brenda parapsilosis on cultures. She received 14 days of daptomycin, m icafungin, metronidazole and a cephalosporin and was then transitioned to IV cef triaxone, metronidazole, fluconazole 200 mg daily until definitive surgery due t o high risk for severe infection. She had a first occurrence of C. Diff in June and has been on ppx PO vancomycin following treatment course. She was admitted 09/04 following colovesical fistula takedown, partial cystectomy, infected mesh e xcision and colectomy with colostomy creation. NGT placed on 09/07 d/t ileus anc hospitalization has since been complicated by fever /25 AM and increasing O2 re quirement. Patient symptomatically feels better however with NGT and WBC has imp roved. Will continue to monitor on current regimen and broaden if spikes fever a gain. ID Problem List 1. 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 Fever 3. Colostomy creation 09/04 4. Salomon catheter placed 09/04 5. Recent polymicrobial pyelonephritis - C. Glabrata, C. Parapsilosis, VRE, Bact eroides, Eggerthella w/ Intra-abdominal abscess 6. 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 B/L nephrostomy tubes placed in June, 8. Recent C. Diff colitis on PO Vanc BID 9. Poor PO intake on TPN 10. Ileus (09/07) 11. Antibiotic allergies: Bactrim- Hives 12. Acute hypoxic respiratory failure 13. Volume overload Recommendations: 1. Will extend ceftriaxone, metronidazole and fluconazole for a few more days w/ fever overnight and still plan on continuing PO vancomycin until 2 days after c ompletion of other antibiotics 2. Agree w/ BCx will follow 3. Agree w/ CXR this AM given increased O2 - seemed to reflect more volume overl oad w/ effusions and edema, would consider diuresis if BP allows 4. If patient spikes fever again, would consider changing ceftriaxone/metronidaz ole to IV pip-tazo and obtain CT abd/pelv 5. Nephrostomy tube management per Urology Thank you for the consultation. We will continue to co-manage the patient with dylan Ferguson MD Pager [phone] Please contact preferentially via Voalte Interval Hx/Subjective Febrile to 102.6 overnight, she denies noticing any chills or sweats. VSS but BP remains soft and O2 requirement increased to 7L overnight, down to 4- 5L this AM. She denies SOB or cough other than some irritation from NG tube. 300cc out from NG. Her abdominal pain overall is much improved but is still slightly tender around incision. No further nausea/vomiting. Antimicrobial Start date End date Fluconazole 07/14 Active Cefepime 07/11 07/14 Cefpodoxime 07/05 07/11 Flagyl 07/03 Active Daptomycin 07/05 07/14 Micafungin 07/03 07/14 PO Vancomycin 07/05 Active Ceftriaxone 07/03-07/05; 07/14 Active Meropenem 06/28 07/03 Linezolid 06/28 07/05 IV Vancomycin 06/28 06/28 Azithromycin Unknown, ~06/22 06/26 Ciprofloxacin 06/20 ~06/22 Estimated Creatinine Clearance: 64.6 mL/min (based on SCr of 0.76 mg/dL). Medications Scheduled Meds:acetaminophen (TYLENOL) tablet 650 mg, 650 mg, Oral, Q6H* buPROPion XL (WELLBUTRIN XL) tablet 150 mg, 150 mg, Oral, QDAY [START ON 09/09/2020] cefTRIAXone (ROCEPHIN) IVP 2 g, 2 g, Intravenous, Q24H* cetirizine (ZyrTEC) tablet 10 mg, 10 mg, Oral, QDAY COVID-19 vacc,mRNA (MODERNA) PF immunization 100 mcg, 100 mcg, Intramuscular, New Car Inspector enoxaparin (LOVENOX) syringe 40 mg, 40 mg, Subcutaneous, QDAY() [START ON 09/09/2020] fluconazole (DIFLUCAN) tablet 200 mg, 200 mg, Oral, QDAY furosemide (LASIX) tablet 40 mg, 40 mg, Oral, QDAY gabapentin (NEURONTIN) capsule 300 mg, 300 mg, Oral, BID levothyroxine (SYNTHROID) tablet 50 mcg, 50 mcg, Oral, QDAY methocarbamoL (ROBAXIN) tablet 750 mg, 750 mg, Oral, TID metroNIDAZOLE (FLAGYL) 500 mg IVPB 100 mL, 500 mg, Intravenous, Q12H* nicotine (NICODERM CQ STEP 2) 14 mg/day patch 1 patch, 1 patch, Transdermal, Q24 H* oxybutynin XL (DITROPAN XL) tablet 15 mg, 15 mg, Oral, QDAY pantoprazole DR (PROTONIX) tablet 40 mg, 40 mg, Oral, QDAY scopolamine (TRANSDERM-SCOP) 1mg over 3 days patch 1 patch, 1 patch, Transdermal , Q72H* And Patch Documentation - Scopolamine base 1MG/72HR 1 patch, 1 patch, Transdermal, B ID polyethylene glycol 3350 (MIRALAX) packet 17 g, 1 packet, Oral, BID senna/docusate (SENOKOT-S) tablet 1 tablet, 1 tablet, Oral, BID vancomycin (FIRVANQ) oral solution 125 mg, 125 mg, Oral, BID Continuous Infusions: Adult Continuous Parenteral Nutrition (PN) Adult Continuous Parenteral Nutrition (PN) 75 mL/hr at 09/07/202117 PRN and Respiratory Meds:HYDROmorphone (DILAUDID) injection Q2H PRN, hyoscyamine Q4H PRN, lidocaine PF PRN, melatonin QHS PRN, nalOXone PRN, nicotine polacrilex Q1H PRN, [DISCONTINUED] ondansetron Q6H PRN OR ondansetron (ZOFRAN) IV Q6H PRN, oxyCODONE Q4H PRN, phenoL PRN, prochlorperazine Q6H PRN, simethicone Q6H SD N Physical Examination Vital Signs: Most Recent Vital Signs: 24 H our Range BP: 97/49 (09/08 1251) Temp: 36.4 C (97.5 F) (09/08 1137) Pulse: 110 (09/08 1245) Respirations: 18 PER MINUTE (09/08 1245) SpO2: 92 % (09/08 1245) BP: (81-106)/(49-62) Temp: [36.4 C (97.5 F)-39.2 C (102.6 F)] Pulse: [88-110] Respirations: [18 PER MINUTE-20 PER MINUTE] SpO2: [90 %-94 %] General appearance: Alert, oriented x 3, appears fatigued, elderly fem desiree, in NAD HENT: NC/AT, facial features symmetrical Eyes: Anicteric, EOMI Lungs: diminished BS in bases, no rhonchi, nonlabored Heart: Regular rhythm, reg rate, no murmur, rub or gallop Abdomen: RLQ colostomy in place w/ serous output in bag. Midline incision well a pproximated with erum slightly indurated/erythematous distally. L sided abdom inal hernia. Hypoactive bowel sounds. Mild TTP, more tender around incision over all but no guarding or rebound. Ext: No clubbing, cyanosis or edema, not hot or swollen joints Skin: No rashes/lesions Psych: Appropriate mood and affect Lines: RUE PICC c/d/i Drains/tubes: B/L nephrostomy tubes with clear yellow urine, salomon catheter with bloody urine, LLQ HEMA drain with bloody drainage. RLQ colostomy with serosanguin ous output in appliance Lab Review Hematology Recent Labs 09/06/20 1220 09/07/20 0330 09/08/20 0330 WBC 13.3* 16.5* 11.9* HGB 7.9* 9.5* 8.4* HCT 22.6* 27.6* 24.8* PLTCT 228 231 211 Chemistry Recent Labs 09/06/20 0355 09/07/20 0330 09/08/20 0330 NA 138 138 143 K 3.9 3.6 3.7 CL 109 107 109 CO2 22 23 27 BUN 34* 23 19 CR 1.19* 0.77 0.76 GFR 45* >60 >60 GLU 117* 153* 101* CA 7.3* 8.2* 7.7* PO4 2.5 1.9* 2.6 ALBUMIN -- -- 2.4* ALKPHOS -- -- 107 AST -- -- 18 ALT -- -- 9 TOTBILI -- -- 0.8 Microbiology, Radiology and other Diagnostics Review Microbiology: 09/08 BCx x2 pending Microbiology data reviewed. Radiology: 09/08 CXR 1. Placement of gastric tube as described. 2. Small left greater than right pleural effusions with bibasilar left greater than right opacities, which may represent atelectasis and/or pneumonia. 3. Mild diffuse bilateral interstitial opacities, likely representing pulmonary edema. Pertinent radiology images viewed. * Argenis Ward RN - 09/08/2020 10:10 AM CDT Images from the original note were not included. Wound Ostomy Note NAME:Carlos Alberto Torres :1950 AGE: 70 y.o. ADMISSION DATE: 09/04/2020 DAYS ADMITTED: LOS: 4 days Reason for Consult/Visit: ostomy education Assessment/Plan: Principal Problem: Colovesical fistula Active Problems: Acute blood loss anemia J LUIS (acute kidney injury) (HCC) Malnutrition (HCC) Patient sitting up in a chair at time of visit to today, patient reports that sh e feels a little better than she did yesterday. Patient much more awake and enga ged in conversation. Patient partially participated in pouch change, challenges with NG tube in place and pain 10/24- RN aware. Patient verbalized understanding of teachings and asked good questions. Patient did request that her daughter be present for next pouch change, although daughter reported on post op day #1 that she was not going to be back for the remainder of patients hospital stay. Stated that patients sister would be her support. Patient is discharging to placement per CM note. Demonstrated how to empty/change pouch. Topics discussed: frequency of emptying/ changing pouch, how to empty/change pouch, stoma/peristomal skin care, pouch opt ions, how to cut pouch. Questions answered. OSTOMY CARE: Suggested Pouching Supplies: [employer] #[id number] 1. Change pouch with any sign of leaking. Do not reinforce leaking pouch with tape 2. Clean skin with water only - no soap or wipes 3. If skin is broken down surrounding stoma, sprinkle stoma powder and wipe aw ay the excess 4. [place] no sting skin prep on powdered skin and let dry completely 5. Cut new pouch leaving 1/8"-1/4" of skin showing between the stoma and pouch 6. Warm new pouch in palm of hands 7. Ensure skin is dry and apply new pouch 8. Lay warm hand over pouch once it's applied Bedside RN is responsible for continuing ostomy education in between visits fr om our service. This can be achieved by including patient (and family) in ostomy care tasks such as pouch emptying and pouch changes. Patient enrolled in [employer] secure start program. Colostomy 09/04/20 1419 Upper Right Quadrant (Active) 09/04/20 1419 Upper Right Quadrant Wound Image 09/08/20 1000 Agree With My Assessment? 09/05/20 1246 Stoma Assessment Red;Dusky;Dark Edges 09/08/20 1000 Drainage Description Sanguineous 09/08/20 1000 Peristomal Skin Assessment Dry;Intact 09/08/20 1000 Dressing Status Changed/New 09/08/20 1000 Drain Output (ml) 0 ml 09/07/20 1700 JACINTO Wilson, RN, TCRN Wound/Ostomy Nursing Consult Service Available via [employer] or [facility] M-F [phone] After hours please contact wound/engraver lettering "call out clerk" via Voal[employer] * Kelly Salcedo, OT - 09/08/2020 9:25 AM CDT OCCUPATIONAL THERAPY ASSESSMENT NOTE Name: Carlos Alberto Torres : 1950 Age: 70 y.o. Admission Date: 09/04/2020 LOS: 4 days Mobility Patient Turn/Position: Chair Progressive Mobility Level: Walk in room Distance Walked (feet): 15 ft Level of Assistance: Assist X2(for lines/safety) Assistive Device: Walker Time Tolerated: 11-30 minutes Activity Limited By: Pain;Weakness;Lines / Medical Devices Subjective Pertinent Dx per Physician: 70 y.o. Female with large colovesical/vaginal fistul a s/p multiple surgeris for complications from diverticulitis now s/p ex-lap, fi stula excision, partial cystectomy, transverse end colostomy complicated by righ t internal iliac vein injury Precautions: Falls Pain / Complaints: Patient agrees to participate in therapy;Patient premedicated Objective Psychosocial Status: Willing and Cooperative to Participate Persons Present: Physical Therapist Home Living Type of Home: House Home Layout: One Level Bathroom Shower / Tub: Tub/Shower Unit Prior Function Level Of [place]: Independent with ADLs and functional transfers;Independen t with homemaking w/ ambulation Lives With: Alone Other Function Comments: pt SO is currently hospitalized, daughters are supporti ve but unable to provide consistent assist ADL's LE Dressing Assist: Total Assist LE Dressing Deficits: Don/Doff R Sock;Don/Doff L Sock ADL Mobility Bed Mobility: Supine to Sit: Minimal assist Bed Mobility Comments: assist for trunk, HOB elevated Transfer Type: Sit to/from stand Transfer: Assistance Level: From;Bed;Minimal assist Transfer: Assistive Device: Roller walker End of Activity Status: Up in chair;Instructed patient to request assist with mo bility;Instructed patient to use call light Transfer Comments: min assist for transfer, limited primarily by pain Gait Distance: 15 feet Gait: Assistance Level: Minimal assist;of 1st person;Safety considerations;Manag ement of lines;of 2nd person Gait: Assistive Device: Roller walker Gait Comments: pt on 6L O2 for ambulation. poor read on pulse oximeter so unable to accurately determine if pt experiencing desaturations but O2 sats >90% once seated in chair Activity Tolerance Endurance: 2/5 Tolerates 10-20 Minutes Exercise w/Multiple Rests Education Persons Educated: Patient Teaching Methods: Verbal Instruction Patient Response: Verbalized Understanding Topics: Role of OT, Goals for Therapy Goal Formulation: With Patient Assessment Assessment: Decreased ADL Status;Decreased Endurance;Decreased Self-Care Trans;D ecreased High-Level ADLs Prognosis: Good Goal Formulation: Patient Comments: pt is primarily limited by post operative pain and deconditioning. ant iciapte with continued progression of activity acutely pt will progress for home , but she is open to placement if she is unable to progress. will continue to as sess and update recommendations as appropriate AM-PAC 6 Clicks Daily Activity Inpatient Putting on and taking off regular lower body clothes?: A Lot Bathing (Including washing, rinsing, drying): A Lot Toileting, which includes using toilet, bedpan, or urinal: Total Putting on and taking off regular upper body clothing: A Little Taking care of personal grooming such as brushing teeth: None Eating meals?: None Daily Activity Raw Score: 16 Standardized (t-scale) score: 35.96 CMS 0-100% Score: 53.32 CMS G Code Modifier: CK Plan OT Frequency: 5x/week OT Plan for Next Visit: LB dressing, progress functional endurance ADL Goals Patient Will Perform All ADL's: w/ Stand By Assist Functional Transfer Goals Pt Will Perform All Functional Transfers: w/ Stand By Assist OT Discharge Recommendations Recommendation: Currently patient requires inpatient level of care. However, typ ical progression for patient condition would anticipate home with assistance at time of discharge. Therapist: Kelly Salcedo OTR/Valerie [id number] Date: 09/08/2020 * Roger Sanz, PT - 09/08/2020 9:24 AM CDT PHYSICAL THERAPY ASSESSMENT Name: Carlos Alberto Torres : 1950 Age: 70 y.o. Admission Date: 09/04/2020 LOS: 4 days Mobility Patient Turn/Position: Chair Progressive Mobility Level: Walk in room Distance Walked (feet): 15 ft Level of Assistance: Assist X2(for lines/safety) Assistive Device: Walker Time Tolerated: 11-30 minutes Activity Limited By: Pain;Weakness;Lines / Medical Devices Subjective Significant hospital events: 70 y.o. Female with large colovesical/vaginal fistu la s/p multiple surgeris for complications from diverticulitis now s/p ex-lap, f istula excision, partial cystectomy, transverse end colostomy complicated by rig ht internal iliac vein injury Mental / Cognitive Status: Alert;Oriented;Cooperative Persons Present: Occupational Therapist Comments: 5L O2 NC Ambulation Assist: Independent Mobility in Community without Device Patient Owned Equipment: Roller Walker Home Situation: Lives [facility] Roommate(Fiance) Type of Home: House Entry Stairs: No Stairs In-Home Stairs: No Stairs Comments: Patient reports her fiance is currently hospitalized at [facility] with [facility] , so she is unsure if he will be able to assist her upon discharge (anticipating not). Her daughters live near but work during the day. Patient endorses history of one fall; knees buckled. Patient states she is open to discharging to inpati ent setting for further treatment if indicated, but only for short stay. 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 Strength Overall Strength: WFL;No Focal Deficits Noted Posture/Neurological Overall Sensation/Proprioception: No Deficits Noted Bed Mobility/Transfer Bed Mobility: Supine to Sit: Minimal Assist;Assist with Trunk;Requires Extra Jed e;Head of Bed Elevated Transfer Type: Sit to/from Stand Transfer: Assistance Level: Minimal Assist;To/From;Bed;Bed Side Chair Transfer: Assistive Device: Roller Walker Transfers: Type Of Assistance: For Balance;For Strength Deficit;For Safety Consi derations;Requires Extra Time End Of Activity Status: Up in Chair;Nursing Notified;Instructed Patient to Reque st Assist with Mobility;Instructed Patient to Use Call Light(chair alarm activat ed) Gait Gait Distance: 15 feet Gait: Assistance Level: Minimal Assist;Safety Considerations;Management of Lines (2nd person for line management) Gait: Assistive Device: Roller Walker Gait: Descriptors: Swing-Through Gait;Decreased step length;Pace: Slow;No balanc e loss Comments: limited by pain, pt demonstrates steady gait but slow with decreased s tep length. Activity/Exercise Sit Edge Of Bed: 2 minutes Sit Edge Of Bed Assist: Stand By Assist Education Persons Educated: Patient Patient Barriers To Learning: Pain Interventions: Repetition of Instructions Teaching Methods: Verbal Instruction Patient Response: Verbalized Understanding Topics: Plan/Goals of PT Interventions;Mobility Progression;Safety Awareness;Up with Assist Only;Importance of Increasing Activity;Ambulate With Nursing;Recomme nd Continued Therapy Assessment/Progress Impaired Mobility Due To: Pain;Decreased Activity Tolerance Impaired Strength Due To: Pain Assessment/Progress: Should Improve w/ Continued PT Comments: Pt limited primarily by post-op pain, mild deonditioning. Pt will bene fit from ongoing skilled therapy to address limitations. As pt will likely be ho me alone, would need to be at modified independent level for home discharge. AM-PAC 6 Clicks Basic Mobility Inpatient Turning from your back to your side while in a flat bed without using bed rails: A Little Moving from lying on your back to sitting on the side of a flatbed without using bedrails : A Little Moving to and from a bed to a chair (including a wheelchair): A Little Standing up from a chair using your arms (e.g. wheelchair, or bedside chair): A Little To walk in hospital room: A Little Climbing 3-5 steps with a railing: A Little Raw Score: 18 Standardized (T-scale) Score: 41.05 Basic Mobility CMS 0-100%: 40.47 CMS G Code Modifier for Basic Mobility: CK Goals Goal Formulation: With Patient Patient Will Go Supine To/From Sit: w/ Stand By Assist Patient Will Transfer Bed/Chair: w/ Stand By Assist Patient Will Transfer Sit to Stand: w/ Stand By Assist Patient Will Ambulate: 151-200 Feet, w/ Walker, w/ Stand By Assist Plan Treatment Interventions: Mobility Training;Strengthening;ROM;Balance Activities; Coordination Training;Endurance Training Plan Frequency: 5 Days per Week PT Plan for Next Visit: Progress transfers, gait with walker, endurance PT Discharge Recommendations Recommendation: Currently patient requires inpatient level of care. However, typ ical progression for patient condition would anticipate home with assistance at time of discharge. Patient Currently Requires Equipment: Owns what is needed Therapist Roger Sanz, PT, DPT Date 09/08/2020 * Laure Hull MD - 09/08/2020 5:59 AM CDT Urology Progress Note 09/08/2020 ASSESSMENT: Carlos Alberto Torres is a 70 y.o. Female with large colovesical/vaginal fistula s/p multiple surgeris for complications from diverticulitis now s/p ex-lap, fist benjy excision, partial cystectomy, transverse end colostomy complicated by right internal iliac vein injury LOS: 4 days ACTIVE PROBLEMS: Principal Problem: Colovesical fistula Active Problems: Acute blood loss anemia J LUIS (acute kidney injury) (HCC) Malnutrition (HCC) PLAN: will discuss plan with staff surgeon - Dr. Rodriguez - Pain control: PO with IV - Diet/FEN: Diet per colorectal team. NPO, TPN > NGT in place to low intermittent wall suction - GI: bowel regimen, zofran prn - : Salomon catheter with antispasmodics in place. Right and Left NT in place. - Renal: Cr 0.76. Replete lytes prn - Heme/ID: Febrile this morning. Rocephin, Diflucan, Flagyl, oral Vanc. WBC 11.9 (16.5) > ID consulted, appreciate recs - Continue Rocephin, metronidazole, fluconazole through 09/08. Continue oral vanc through 09/10. > 2u pRBC intraop > 2u pRBC 09/06. > 09/08: Hgb 8.4 > 09/08 blood cultures pending - CANDLE MOLDER: lasix, bupropion, synthroid - Nicoderm patch and gum - OOB/Amb - Dispo: Continue inpatient care Prophylaxis Review: - DVT: SCD's, Lovenox - Catheter: Yes - Abx: Yes Laure Hull MD PGY-1 Urology Please page urology source water protection specialist with questions SUBJECTIVE: Febrile overnight and requiring 7L O2. Pain is controlled. Nausea improved. Abdo hannah pain improved. Has not ambulated. Passing flatus OBJECTIVE: Vital Signs: Most Recent Vital Signs: Past 24 Ho urs BP: 105/54 (09/08 329) Temp: 39.2 C (102.6 F) (09/08 329) Pulse: 108 (09/08 329) Respirations: 18 PER MINUTE (09/08 329) SpO2: 91 % (09/08 329) BP: (92-125)/(54-87) Temp: [36.7 C (98 F)-39.2 C (102.6 F)] Pulse: [100-108] Respirations: [18 PER MINUTE-20 PER MINUTE] SpO2: [88 %-94 %] General: Alert & oriented, no acute distress HEENT: NGT draining dark, bilious output Pulm: non-labored on RA CV: Regular rate Abd: Soft, appropriately tender, distention improved Incisions/Wounds: Appropriately tender to palpation. Midline incision with dress ing with mild saturation inferiorly. HEMA SS. Colostomy with sanguinous bowel swea t present. Extremities: No edema, SCD's in place : Salomon catheter in place draining dark shruthi urine. Right NT draining clear y ellow urine. Left NT draining clear yellow urine. Labs: Hematology Chemistry Recent Labs 09/08/20329 WBC 11.9* HGB 8.4* PLTCT 211 Recent Labs 09/08/20 033 NA 143 K 3.7 CL 109 CO2 27 BUN 19 CR 0.76 GFR >60 GLU 101* CA 7.7* PO4 2.6 Intake/Output: Date 09/07/20700 - 09/08/20 0700 09/08/20 07 - 09/09/20 0700 Shift 8408-9576 2615-8599 24 Hour Total 3838-7010 7127-1731 24 Hour Total INTAKE P.O. 0 0 Other 20 20 Shift Total(mL/kg) 20(0.3) 20(0.3) OUTPUT Urine(mL/kg/hr) 1250(1.4) 630 1880 Urine Output (ml) (Indwelling Urinary Catheter 09/04/20 ) 250 105 355 Urine Output (ml) (NEPHROSTOMY TUBE 06/29/20 0828 Flank, Right Lower Lateral 8 FR) 325 275 600 Urine Output (ml) (NEPHROSTOMY TUBE 06/29/20 0828 Flank, Left Lower Lateral 8 FR) 675 250 925 Emesis 400 400 Emesis 400 400 Drains 9059 909 8157 Drain Output (ml) (Colostomy 09/04/20 1419 Upper Right Quadrant) 0 0 Drain Output (ml) (Giovanni Santoro Drain 09/04/20 1419 Anterior Abdomen #1) 30 2 0 50 Drain Output (ml) (Nasogastric Tube 09/07/20 1000 Nose 16 FR) 1889 348 9284 Shift Total(mL/kg) 2980(39.1) 900(11.8) 3880(50.9) NET -2960 -900 -3860 Weight (kg) 76.2 76.2 76.2 76.2 76.2 76.2 Malnutrition Details: Associated attestation - Lorena Rodriguez MD - 09/09/2020 1:11 PM CDT Attestation I saw and evaluated pt with the resident on rounds and performed the jurado portion s of the e/m. I agree with the above assessment and plan. Pt reports feeling b natty since NGTube was placed. She did have a fever and cultures sent from PICC line and peripheral stick. O2 requirements increased and CXR showed mild edema. Her O2 requirements have improved throughout the day and are down to 2Liters. She reports feeling better since NGtube placed. She has had colostomy output and NGTube output has decreased and is now watery. Discuss with CRS plan for NG Tube removal. F/u on cultures. Appreciate ID help with pt. Continue TPN for n ow. Continue inpt stay. Lorena Rodriguez MD, FACS * Argenis Ward RN - 09/07/2020 12:40 PM CDT Wound Ostomy Note NAME:Carlos Alberto Torres :1950 AGE: 70 y.o. ADMISSION DATE: 09/04/2020 DAYS ADMITTED: LOS: 3 days Reason for Consult/Visit: ostomy education Assessment/Plan: Principal Problem: Colovesical fistula Ostomy team continuing to follow for ongoing ostomy education. Due to patients c linical status, have completed very little education to date. Patient is yuliya r with the concept due having a prior stoma but 100% of the care was provided by her daughters. She is also discharging to a facility who will be able to help assume care and teach. Patient resting in bed, very fatigued and tired. More let hargic than she was yesterday. Family at bedside. NG tube placed this AM by bed side RN and per report has had 1500ml of output so far. Patient states that her abdomen feels better since the tube was placed and she is not as nauseated. Stoma appears more dusky today, with dark edges. Small amount of drainage in hesham ch, appears bloody now rather than expected bowel sweat. Patient has a two piece pouch in place, pouch removed to assess stoma closer. There is a scant amount of what appears to be purulent drainage on the stoma at the site of the os. Surg- onc team paged and communicated concerns. Spoke with Dr. Sixto Nolan who stated h e will be by to see patient. Colostomy 09/04/20 1419 Upper Right Quadrant (Active) 09/04/20 1419 Upper Right Quadrant Agree With My Assessment? 09/05/20 1246 Stoma Assessment Red;Dark Edges;Dusky 09/07/20 1200 Drainage Description Bloody 09/07/20 1200 Peristomal Skin Assessment Unable to Assess 09/07/20 1200 Dressing Status Intact;Dry;Clean 09/07/20 1200 Drain Output (ml) 0 ml 09/07/20 0847 JACINTO Wilson, RN, TCRN Wound/Ostomy Nursing Consult Service Available via [facility] [employer] or [employer] M-F [phone] After hours please contact wound/engraver lettering "call out clerk" via Voalte * Rachel Carrion, PT - 09/07/2020 12:15 PM CDT PHYSICAL THERAPY NOTE Name: Carlos Alberto Torres : 1950 Age: 70 y.o. Admission Date: 09/04/2020 LOS: 3 days Physical therapy attempted patient assessment 2x, patient declined mobility due to pain from new NG tube. Upon second attempt, PT assisted RN in repositioning p atient in bed. Patient able to assist in rolling toward right side. Physical therapy will continue to follow and provide intervention as indicated. Therapist: Rachel Carrion[place] DPT [id number] Date: 09/07/2020 * Paloma Wilkes OT - 09/07/2020 11:40 AM CDT OCCUPATIONAL THERAPY NOTE Name: Carlos Alberto Torres : 1950 Age: 70 y.o. Admission Date: 09/04/2020 LOS: 3 days Patient declined to participate despite encouragement and education about the ro le and benefits of occupational therapy, asking to "rest some more". Occupatio nal therapy will continue to follow and provide intervention as indicated/able. Therapist: Paloma Wilkes, KARLYR/L [id number] Date: 09/07/2020 * Leela Mullen MD - 09/07/2020 9:10 AM CDT Infectious Diseases Progress Note Today's Date: 09/07/2020 Admission Date: 09/04/2020 Reason for this consultation: complex patient has seen ID. Currently on rocephin , flagyl, fluconazole, and PO vanc for recurrent UTIs d/t colovesical fistula. H ad colovesical fistula takedown with partial cystectomy 09/04. Seeking recs on en d dates for abx or any need to change abx Type of Consultation: Co-Management w/Signed Orders Assessment: Carlos Alberto Torres is a 70 y.o. female with a medical history of diverticuliti s in 2011 leading to surgical history for and due to recurrent fistulization, mo st recently colovaginal and coloureteral/vesical. She has had recurrent UTI's du e to feculent urine and has been on and off several antibiotics over the past se veral years and especially since Dec, 2019. She has bilateral nephrostomy tubes in place following severe infection in June with VRE, Bacteroides, Brenda glab rata and Brenda parapsilosis on cultures. She received 14 days of daptomycin, m icafungin, metronidazole and a cephalosporin and was then transitioned to IV cef triaxone, metronidazole, fluconazole 200 mg daily until definitive surgery due t o high risk for severe infection. She had a first occurrence of C. Diff in June and has been on ppx PO vancomycin following treatment course. She was admitted 09/04 following colovesical fistula takedown, partial cystectomy, infected mesh e xcision and colectomy with colostomy creation. NGT placed on 09/07 d/t ileus ID Problem List 1. 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 Colostomy creation 09/04 3. Salomon catheter placed 09/04 4. Recent polymicrobial pyelonephritis - C. Glabrata, C. Parapsilosis, VRE, Bact eroides, Eggerthella w/ Intra-abdominal abscess 5. Infected ventral hernia mesh with chronic draining wound s/p excision of infe cted portion (incorporated portion left in place) 09/04 6. B/L nephrostomy tubes placed in June, 7. Recent C. Diff colitis on PO Vanc BID 8. Poor PO intake on TPN 9. Ileus (09/07) 10. Antibiotic allergies: Bactrim- Hives Recommendations: 1. Maintain plan for ceftriaxone, metronidazole and fluconazole through 09/08 for 4 day course post source control as long as no complications arise 2. Continue PO vancomycin two days following discontinuation of other Abx, I.e. through 09/10 3. Nephrostomy tube management per Urology Thank you for the consultation. We will continue to co-manage the patient with y ou Patient staffed with Dr. Marty Mullen MD Pager [phone] Please contact preferentially via Voalte Interval Hx/Subjective AF, VSS on 3L of supplemental O2 Vomited this morning. NG tube placed with 1.3 L output prior to being clamped. Patient reported improvement following NGT placement. Denies chills. She only took water and coke yesterday with inability to advance her diet Endorses abdominal pain still No stool output from ostomy yet Antimicrobial Start date End date Fluconazole 07/14 Active Cefepime 07/11 07/14 Cefpodoxime 07/05 07/11 Flagyl 07/03 Active Daptomycin 07/05 07/14 Micafungin 07/03 07/14 PO Vancomycin 07/05 Active Ceftriaxone 07/03-07/05; 07/14 Active Meropenem 06/28 07/03 Linezolid 06/28 07/05 IV Vancomycin 06/28 06/28 Azithromycin Unknown, ~06/22 06/26 Ciprofloxacin 06/20 ~06/22 Estimated Creatinine Clearance: 63.8 mL/min (based on SCr of 0.77 mg/dL). Medications Scheduled Meds:acetaminophen (TYLENOL) tablet 650 mg, 650 mg, Oral, Q6H* buPROPion XL (WELLBUTRIN XL) tablet 150 mg, 150 mg, Oral, QDAY cefTRIAXone (ROCEPHIN) IVP 2 g, 2 g, Intravenous, Q24H* cetirizine (ZyrTEC) tablet 10 mg, 10 mg, Oral, QDAY COVID-19 vacc,mRNA (MODERNA) PF immunization 100 mcg, 100 mcg, Intramuscular, New Car Inspector enoxaparin (LOVENOX) syringe 40 mg, 40 mg, Subcutaneous, QDAY(21) fluconazole (DIFLUCAN) tablet 200 mg, 200 mg, Oral, QDAY furosemide (LASIX) tablet 40 mg, 40 mg, Oral, QDAY gabapentin (NEURONTIN) capsule 300 mg, 300 mg, Oral, BID levothyroxine (SYNTHROID) tablet 50 mcg, 50 mcg, Oral, QDAY methocarbamoL (ROBAXIN) tablet 750 mg, 750 mg, Oral, BID metroNIDAZOLE (FLAGYL) tablet 500 mg, 500 mg, Oral, BID nicotine (NICODERM CQ STEP 2) 14 mg/day patch 1 patch, 1 patch, Transdermal, Q24 H* oxybutynin XL (DITROPAN XL) tablet 15 mg, 15 mg, Oral, QDAY pantoprazole DR (PROTONIX) tablet 40 mg, 40 mg, Oral, QDAY scopolamine (TRANSDERM-SCOP) 1mg over 3 days patch 1 patch, 1 patch, Transdermal , Q72H* And Patch Documentation - Scopolamine base 1MG/72HR 1 patch, 1 patch, Transdermal, B ID polyethylene glycol 3350 (MIRALAX) packet 17 g, 1 packet, Oral, BID potassium phosphate 24 mmol in sodium chloride 0.9% (NS) 500 mL IVPB (std), 24 m mol, Intravenous, ONCE senna/docusate (SENOKOT-S) tablet 1 tablet, 1 tablet, Oral, BID vancomycin (FIRVANQ) oral solution 125 mg, 125 mg, Oral, BID Continuous Infusions: Adult Continuous Parenteral Nutrition (PN) Adult Continuous Parenteral Nutrition (PN) 75 mL/hr at 09/06/202034 PRN and Respiratory Meds:HYDROmorphone (DILAUDID) injection Q2H PRN, hyoscyamine Q4H PRN, lidocaine PF PRN, melatonin QHS PRN, nalOXone PRN, nicotine polacrilex Q1H PRN, [DISCONTINUED] ondansetron Q6H PRN OR ondansetron (ZOFRAN) IV Q6H PRN, oxyCODONE Q4H PRN, phenoL PRN, prochlorperazine Q6H PRN, simethicone Q6H SD N Physical Examination Vital Signs: Most Recent Vital Signs: 24 H our Range BP: 125/87 (09/07 826) Temp: 36.8 C (98.3 F) (09/07 826) Pulse: 105 (09/07 826) Respirations: 19 PER MINUTE (09/07 826) SpO2: 94 % (09/07 826) BP: (90-140)/(43-87) Temp: [36.8 C (98.3 F)-37.6 C (99.6 F)] Pulse: [85-105] Respirations: [18 PER MINUTE-19 PER MINUTE] SpO2: [92 %-96 %] General appearance: Alert, oriented x 3, appears fatigued HENT: NC/AT, facial features symmetrical Eyes: Anicteric Lungs: CTAB, no wheezing, rhonchi or rales appreciated anteriorly Heart: Regular rhythm, reg rate, no murmur, rub or gallop Abdomen: RLQ colostomy in place. Midline incision well approximated with erum . L sided abdominal hernia. Hypoactive bowel sounds. Abdomen not palpated due to abdominal pain Ext: No clubbing, cyanosis or edema, not hot or swollen joints Skin: No rashes/lesions Psych: Appropriate mood and affect Lines: PIV Drains/tubes: B/L nephrostomy tubes with clear yellow urine, salomon catheter with bloody urine, LLQ HEMA drain with bloody drainage. RLQ colostomy with serosanguin ous output in appliance Lab Review Hematology Recent Labs 09/06/20 0355 09/06/20 1220 09/07/20 0330 WBC 13.1* 13.3* 16.5* HGB 5.9* 7.9* 9.5* HCT 18.0* 22.6* 27.6* PLTCT 239 228 231 Chemistry Recent Labs 09/05/20 0330 09/06/20 0355 09/07/20 0330 NA 136* 138 138 K 4.7 3.9 3.6 CL 104 109 107 CO2 20* 22 23 BUN 31* 34* 23 CR 1.11* 1.19* 0.77 GFR 49* 45* >60 GLU 144* 117* 153* CA 7.6* 7.3* 8.2* PO4 4.2 2.5 1.9* ALBUMIN 3.0* -- -- ALKPHOS 90 -- -- AST 23 -- -- ALT 10 -- -- TOTBILI 2.5* -- -- Microbiology, Radiology and other Diagnostics Review Microbiology data reviewed. Pertinent radiology images viewed. Associated attestation - Juany Ferguson MD - 09/07/2020 2:56 PM CDT ATTESTATION I personally performed the jurado portions of the E/M visit, discussed case with th e fellow and concur with fellow documentation of history, physical exam, assessm ent, and treatment plan unless otherwise noted. Staff name: Juany Ferguson MD Date: 09/07/2020 Still having nausea/dry heaving and emesis x1. Discussed can change PO fluc and metronidazole to IV for final couple doses due to patient having difficulty tole rating. Requiring a couple liters of O2 this AM, but able to titrate to room air if patient taking deep breaths, suspect having some atelectasis and shallow magaly athing postop. Will set stop date for ctx/metronidazole/fluc for tomorrow unless complications arise, PO vanc through 09/10. ID will continue to peripherally follow. Juany Ferguson MD Infectious Diseases Pager [phone] Please use Voalte to contact ID. * Tenzin Irvin DO - 09/07/2020 7:48 AM CDT Surg Onc/Colorectal Surgery Progress Note 09/07/2020 Patient: Carlos Alberto Torres Admission date 09/04/2020, LOS: 3 days ASSESSMENT: Carlos Alberto Torres is a 70 y.o. 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 Would no advance today -Movantik 25mg oral qd until ostomy function. -Limit narcotics; recommend multimodal pain control. -CHG bath daily -PT/OT, encourage out of bed and ambulating -Ostomy education/teaching. -DVT prophylaxis -Rest of care per primary team Patient to be seen and discussed with Dr. Jasbir Irvin DO Pager [phone] SUBJECTIVE: Patient with nausea and small amount of emesis overnight. Patient reports abdomi nal soreness, improving. Tolerating liquids for the most part. Admits to nausea with emesis on occasion but better with zofran. Some ambulation yesterday but mi nimal . Bowel sweat in ostomy appliance with some serosanguinous output. OBJECTIVE: Vital Signs: Last Filed Vital Signs: 24 Hour Ran ge BP: 140/85 (09/06 2352) Temp: 37.2 C (98.9 F) (09/06 2352) Pulse: 97 (09/06 2352) Respirations: 18 PER MINUTE (09/06 2352) SpO2: 94 % (09/06 2352) BP: (90-140)/(43-85) Temp: [36.6 C (97.9 F)-37.6 C (99.6 F)] Pulse: [83-97] Respirations: [18 PER MINUTE] SpO2: [92 %-96 %] Intensity Pain Scale (Self Report): (not recorded) A&O, NAD Unlabored respirations Regular rate Abd soft, ATTP, midline incision with operative dressing in place, some strike t hrough to inferior portion of dressing. HEMA in place with SS output. Stoma conges otoniel, beefy red with bowel sweat and SS output in appliance. Ostomy interrogated with is patent through the fascia. Salomon and neph tubes in place with clear yellow urine output No C/C/E Recent Labs 09/04/20 1155 09/04/20 1317 09/04/20 1525 09/04/20201409/05/20 0330 09/06/20 0355 09/06/20 1220 09/07/20 0330 HGB -- -- 11.2* 9.2* 8.7* 5.9* 7.9* 9.5* HCT -- -- 31.9* 25.6* 25.2* 18.0* 22.6* 27.6* WBC -- -- 18.5* 20.0* 17.5* 13.1* 13.3* 16.5* PLTCT -- -- 239 208 209 239 228 231 NA 137 136* 136* -- 136* 138 -- 138 K 4.2 4.2 4.3 -- 4.7 3.9 -- 3.6 CL -- -- 101 -- 104 109 -- 107 CO2 -- -- 23 -- 20* 22 -- 23 BUN -- -- 30* -- 31* 34* -- 23 CR -- -- 1.03* -- 1.11* 1.19* -- 0.77 GLU 120* 161* 153* -- 144* 117* -- 153* CA -- -- 7.8* -- 7.6* 7.3* -- 8.2* MG -- -- -- -- 1.8 2.0 -- 2.0 PO4 -- -- -- -- 4.2 2.5 -- 1.9* ALBUMIN -- -- -- -- 3.0* -- -- -- TOTPROT -- -- -- -- 5.3* -- -- -- TOTBILI -- -- -- -- 2.5* -- -- -- AST -- -- -- -- 23 -- -- -- ALT -- -- -- -- 10 -- -- -- ALKPHOS -- -- -- -- 90 -- -- -- Glucose: (!) 153 (09/07/20 0330) POC Glucose (Download): (!) 125 (09/06/202112) Intake/Output Summary (Last 24 hours) at 09/07/2020 0748 Last data filed at 09/07/2020 0300 Gross per 24 hour Intake 3928.09 ml Output 2485 ml Net 1443.09 ml Principal Problem: Colovesical fistula * Laure Hull MD - 09/07/2020 5:46 AM CDT Urology Progress Note 09/07/2020 ASSESSMENT: Carlos Alberto Torres is a 70 y.o. Female with large colovesical/vaginal fistula s/p multiple surgeris for complications from diverticulitis now s/p ex-lap, fist benjy excision, partial cystectomy, transverse end colostomy complicated by right internal iliac vein injury LOS: 3 days ACTIVE PROBLEMS: Principal Problem: Colovesical fistula PLAN: will discuss plan with staff surgeon - Dr. Wyre - Pain control: PO with IV - Diet/FEN: Diet per colorectal team. CLD, TPN - GI: bowel regimen, zofran prn - : Salomon catheter with antispasmodics in place. Right and Left NT in place. - Renal: Cr 0.77. Replete lytes prn - Heme/ID: afebrile. Rocephin, Diflucan, Flagyl, oral Vanc. WBC 16.5 (13.3) > ID consulted, appreciate recs - Continue Rocephin, metronidazole, fluconazole through 09/08. Continue oral vanc through 09/10. > 2u pRBC intraop > 2u pRBC 09/06. > 09/07: Hgb 9.5 (7.9) - CANDLE MOLDER: lasix, bupropion, synthroid - Nicoderm patch and gum - OOB/Amb - Dispo: Continue inpatient care Prophylaxis Review: - DVT: SCD's, Start prophylaxis this AM - Catheter: Yes - Abx: Yes Laure Hull MD PGY-1 Urology Please page urology source water protection specialist with questions SUBJECTIVE: Overnight, no acute events. Pain is better controlled. Having worsening nausea, but no emesis. Nausea improved with compazine. Has not ambulated. OBJECTIVE: Vital Signs: Most Recent Vital Signs: Past 24 Ho urs BP: 140/85 (09/06 2352) Temp: 37.2 C (98.9 F) (09/06 2352) Pulse: 97 (09/06 2352) Respirations: 18 PER MINUTE (09/06 2352) SpO2: 94 % (09/06 2352) BP: (86-140)/(42-85) Temp: [36.6 C (97.9 F)-37.6 C (99.6 F)] Pulse: [83-97] Respirations: [18 PER MINUTE] SpO2: [92 %-96 %] General: Alert & oriented, no acute distress Pulm: non-labored on RA CV: Regular rate Abd: Soft, appropriately tender, non-distended. Incisions/Wounds: Appropriately tender to palpation. Midline incision with dress ing with mild saturation inferiorly. HEMA SS. Colostomy with sanguinous bowel swea t present. Extremities: No edema, SCD's in place : Salomon catheter in place draining dark shruthi urine. Right NT draining clear y ellow urine. Left NT draining clear yellow urine. Labs: Hematology Chemistry Recent Labs 09/07/20 0330 WBC 16.5* HGB 9.5* PLTCT 231 Recent Labs 09/07/20 0330 NA 138 K 3.6 CL 107 CO2 23 BUN 23 CR 0.77 GFR >60 GLU 153* CA 8.2* PO4 1.9* Intake/Output: Date 09/06/20700 - 09/07/20 0709/07/20 07 - 09/08/20 0700 Shift 8822-9206 3871-2693 24 Hour Total 2578-8093 1857-7182 24 Hour Total INTAKE P.O. 450 450 I.V.(mL/kg/hr) 2870(3.1) 2870 Blood 568.1 568.1 Other 20 20 40 Shift Total(mL/kg) 3908.1(51.3) 20(0.3) 3928.1(51.6) OUTPUT Urine(mL/kg/hr) 1375(1.5) 925 2300 Urine 0 0 Urine Output (ml) (Indwelling Urinary Catheter 09/04/20 ) 25 150 175 Urine Output (ml) (NEPHROSTOMY TUBE 06/29/20 0828 Flank, Right Lower Lateral 8 FR) 500 400 900 Urine Output (ml) (NEPHROSTOMY TUBE 06/29/20 0828 Flank, Left Lower Lateral 8 FR) 631 082 7275 Drains 45 140 185 Drain Output (ml) (Colostomy 09/04/20 1419 Upper Right Quadrant) 0 100 100 Drain Output (ml) (Giovanni Santoro Drain 09/04/20 1419 Anterior Abdomen #1) 45 4 0 85 Shift Total(mL/kg) 1420(18.6) 1065(14) 2485(32.6) NET 2488.1 -1045 1443.1 Weight (kg) 76.2 76.2 76.2 76.2 76.2 76.2 Malnutrition Details: * Loren Salcido RN - 09/06/2020 6:01 PM CDT Pt came in from home with Double Lumen PICC in R arm with no CHG disk present. W ill keep dressing intact until dressing change due on 09/11. Nursing staff will c ontinue to do CHG q24 hr and follow CLABSI bundle. * Deepa Brandt OT - 09/06/2020 2:40 PM CDT OCCUPATIONAL THERAPY NOTE Name: Carlos Alberto Torres : 1950 Age: 70 y.o. Admission Date: 09/04/2020 LOS: 2 days Patient declined to participate despite encouragement and education about the ro le and benefits of occupational therapy. Patient reports extreme pain in abdomen . Patient reports she is up for participating in therapy tomorrow morning once p ain subsides and she is able. Patient acknowledges the importance of therapy but reports her pain is too much currently. Occupational therapy will continue to follow and provide intervention as indicated. Therapist: Deepa Brandt OTR/L Date: 09/06/2020 * Leela Mullen MD - 09/06/2020 1:16 PM CDT Infectious Diseases Progress Note Today's Date: 09/06/2020 Admission Date: 09/04/2020 Reason for this consultation: complex patient has seen ID. Currently on rocephin , flagyl, fluconazole, and PO vanc for recurrent UTIs d/t colovesical fistula. H ad colovesical fistula takedown with partial cystectomy 09/04. Seeking recs on en d dates for abx or any need to change abx Type of Consultation: Co-Management w/Signed Orders Assessment: Carlos Alberto Torres is a 70 y.o. female with a medical history of diverticuliti s in 2011 leading to surgical history for and due to recurrent fistulization, mo st recently colovaginal and coloureteral/vesical. She has had recurrent UTI's du e to feculent urine and has been on and off several antibiotics over the past se veral years and especially since Dec, 2019. She has bilateral nephrostomy tubes in place following severe infection in June with VRE, Bacteroides, Brenda glab rata and Brenda parapsilosis on cultures. She received 14 days of daptomycin, m icafungin, metronidazole and a cephalosporin and was then transitioned to IV cef triaxone, metronidazole, fluconazole 200 mg daily until definitive surgery due t o high risk for severe infection. She had a first occurrence of C. Diff in June and has been on ppx PO vancomycin following treatment course. She was admitted 09/04 following colovesical fistula takedown, partial cystectomy, infected mesh e xcision and colectomy with colostomy creation. ID Problem List 1. 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 Colostomy creation 09/04 3. Salomon catheter placed 09/04 4. Recent polymicrobial pyelonephritis - C. Glabrata, C. Parapsilosis, VRE, Bact eroides, Eggerthella w/ Intra-abdominal abscess 5. Infected ventral hernia mesh with chronic draining wound s/p excision of infe cted portion (incorporated portion left in place) 09/04 6. B/L nephrostomy tubes placed in June, 7. Recent C. Diff colitis on PO Vanc BID 8. Poor PO intake on TPN 9. Antibiotic allergies: Bactrim- Hives Recommendations: 1. Maintain plan for ceftriaxone, metronidazole and fluconazole through 09/08 for 4 day course post source control as long as no complications arise 2. Continue PO vancomycin two days following discontinuation of other Abx, I.e. through 09/10 3. Nephrostomy tube management per Urology Thank you for the consultation. We will continue to co-manage the patient with y ou Patient staffed with Dr. Marty Mullen MD Pager [phone] Please contact preferentially via Voalte Interval Hx/Subjective AF, VSS Ms. Torres reports that she has been gradually taken things by mouth. No stool ou tput from ostomy just yet, however blood present in ostomy bag. She complains of lower abdominal cramping No cough, SOB or fevers. She had a 3 g drop in Hgb overnight and is being transfused. Antimicrobial Start date End date Fluconazole 07/14 Active Cefepime 07/11 07/14 Cefpodoxime 07/05 07/11 Flagyl 07/03 Active Daptomycin 07/05 07/14 Micafungin 07/03 07/14 PO Vancomycin 07/05 Active Ceftriaxone 07/03-07/05; 07/14 Active Meropenem 06/28 07/03 Linezolid 06/28 07/05 IV Vancomycin 06/28 06/28 Azithromycin Unknown, ~06/22 06/26 Ciprofloxacin 06/20 ~06/22 Estimated Creatinine Clearance: 41.3 mL/min (A) (based on SCr of 1.19 mg/dL (H)) . Medications Scheduled Meds:acetaminophen (TYLENOL) tablet 650 mg, 650 mg, Oral, Q6H* buPROPion XL (WELLBUTRIN XL) tablet 150 mg, 150 mg, Oral, QDAY cefTRIAXone (ROCEPHIN) IVP 2 g, 2 g, Intravenous, Q24H* cetirizine (ZyrTEC) tablet 10 mg, 10 mg, Oral, QDAY COVID-19 vacc,mRNA (MODERNA) PF immunization 100 mcg, 100 mcg, Intramuscular, New Car Inspector fluconazole (DIFLUCAN) tablet 200 mg, 200 mg, Oral, QDAY furosemide (LASIX) tablet 40 mg, 40 mg, Oral, QDAY gabapentin (NEURONTIN) capsule 300 mg, 300 mg, Oral, BID levothyroxine (SYNTHROID) tablet 50 mcg, 50 mcg, Oral, QDAY methocarbamoL (ROBAXIN) tablet 750 mg, 750 mg, Oral, BID metroNIDAZOLE (FLAGYL) tablet 500 mg, 500 mg, Oral, BID nicotine (NICODERM CQ STEP 2) 14 mg/day patch 1 patch, 1 patch, Transdermal, Q24 H* oxybutynin XL (DITROPAN XL) tablet 15 mg, 15 mg, Oral, QDAY pantoprazole DR (PROTONIX) tablet 40 mg, 40 mg, Oral, QDAY scopolamine (TRANSDERM-SCOP) 1mg over 3 days patch 1 patch, 1 patch, Transdermal , Q72H* And Patch Documentation - Scopolamine base 1MG/72HR 1 patch, 1 patch, Transdermal, B ID polyethylene glycol 3350 (MIRALAX) packet 17 g, 1 packet, Oral, BID senna/docusate (SENOKOT-S) tablet 1 tablet, 1 tablet, Oral, BID vancomycin (FIRVANQ) oral solution 125 mg, 125 mg, Oral, BID Continuous Infusions: Adult Continuous Parenteral Nutrition (PN) Adult Continuous Parenteral Nutrition (PN) 75 mL/hr at 09/05/202112 PRN and Respiratory Meds:HYDROmorphone (DILAUDID) injection Q2H PRN, hyoscyamine Q4H PRN, lidocaine PF PRN, melatonin QHS PRN, nalOXone PRN, nicotine polacrilex Q1H PRN, ondansetron Q6H PRN OR ondansetron (ZOFRAN) IV Q6H PRN, oxyCODONE Q4H PRN, phenoL PRN, simethicone Q6H PRN Physical Examination Vital Signs: Most Recent Vital Signs: 24 H our Range BP: 94/51 (09/06 1222) Temp: 37.4 C (99.4 F) (09/06 1222) Pulse: 85 (09/06 1222) Respirations: 18 PER MINUTE (09/06 1222) SpO2: 94 % (09/06 1222) BP: (76-102)/(41-57) Temp: [36.6 C (97.9 F)-37.4 C (99.4 F)] Pulse: [83-103] Respirations: [17 PER MINUTE-20 PER MINUTE] SpO2: [81 %-96 %] General appearance: Alert, oriented x 3, in mild-moderate discomfort HENT: NC/AT, facial features symmetrical Eyes: Anicteric Lungs: CTAB, no wheezing, rhonchi or rales appreciated anteriorly Heart: Regular rhythm, reg rate, no murmur, rub or gallop Abdomen: RLQ colostomy in place- beefy red in appearance, colostomy bag with randee k red blood in it. Midline incision well approximated with erum but oozing bl ood. L sided abdominal hernia. Bowel sounds present. Abdomen diffusely tender to palpation Ext: No clubbing, cyanosis or edema, not hot or swollen joints Skin: No rashes/lesions Psych: Appropriate mood and affect Lines: PIV Drains/tubes: B/L nephrostomy tubes with clear yellow urine, salomon catheter with bloody urine, LLQ HEMA drain with bloody drainage. RLQ colostomy with dark blood in colostomy bag Lab Review Hematology Recent Labs 09/05/20 0330 09/06/20 0355 09/06/20 1220 WBC 17.5* 13.1* 13.3* HGB 8.7* 5.9* 7.9* HCT 25.2* 18.0* 22.6* PLTCT 209 239 228 Chemistry Recent Labs 09/04/20 1525 09/05/20 0330 09/06/20 0355 NA 136* 136* 138 K 4.3 4.7 3.9 CL 101 104 109 CO2 23 20* 22 BUN 30* 31* 34* CR 1.03* 1.11* 1.19* GFR 53* 49* 45* GLU 153* 144* 117* CA 7.8* 7.6* 7.3* PO4 -- 4.2 2.5 ALBUMIN -- 3.0* -- ALKPHOS -- 90 -- AST -- 23 -- ALT -- 10 -- TOTBILI -- 2.5* -- Microbiology, Radiology and other Diagnostics Review Microbiology data reviewed. Pertinent radiology images viewed. Associated attestation - Juany Ferguson MD - 09/06/2020 3:15 PM CDT ATTESTATION I personally performed the jurado portions of the E/M visit, discussed case with e fellow and concur with fellow documentation of history, physical exam, assessm ent, and treatment plan unless otherwise noted. Staff name: Juany Ferguson MD Date: 09/06/2020 Patient w/ significant abdominal pain and cramping today but otherwise afebrile. Will continue ctx/metronidazole/fluc through 09/08 as previously planned and PO vanc through 09/10. Juany Ferguson MD Infectious Diseases Pager [phone] Please use Voalte to contact ID. * Shannan Noel MD - 09/06/2020 12:11 PM CDT Anesthesiology Acute Pain Service Daily Progress Note Patient: Carlos Alberto Torres Admission Date: 09/04/2020 Procedure Date: 09/04/2020 Procedure: EXPLORATORY LAPAROTOMY WITHOUT BIOPSY WITH PARTIAL CYSTECTOMY, COLECT TOÑA WITH COLOPROCTOSTOMY AND COLOSTOMY - PARTIAL Assessment/Plan Analgesic Technique PCEA Level: T8-T9 (JOHN at 6, Cath at 11) Local Anesthetic: Bupi 0.125% @ 8 ml/hr Catheter Day: 3 Analgesics: Dilaudid and Oxycodone APAP and Gabapentin, Robaxin Anticoagulants: TBD Treatment Plan Patient tolerating clear liquid diet. Primary team requesting epidural removal. Epidural removed this AM with tip intact. Encouraged adjunct use as patient and patient agreeable with plan. Will sign off. Patient seen and discussed with staff. Shannan Noel MD Acute Pain, PGY4 Pager [phone] Subjective Visual Analog Scale (VAS) at rest (0 - 10 scale): 5 Patient satisfied with pain control: Yes Side effects: none Objective Vital Signs BP: 90/43 (09/06 1118) Temp: 37.2 C (99 F) (09/06 1118) Pulse: 91 (09/06 1118) Respirations: 18 PER MINUTE (09/06 1118) SpO2: 93 % (09/06 1118) Level of Consciousness: Awake/alert Neurologic Function Sensory block: Yes Motor block: No Insertion Site: Site clean and nontender Laboratory Lab Results Component Value Date PLTCT 239 09/06/2020 WBC 13.1 09/06/2020 HGB 5.9 09/06/2020 HCT 18.0 09/06/2020 Lab Results Component Value Date PTT 29.3 06/28/2020 INR 1.0 06/28/2020 Associated attestation - Bran Pereyra MD - 09/06/2020 1:00 PM CDT I personally observed the resident performing the E/M, discussed case with resid ent, and concur with resident documentation of history, physical assessment and treatment plan unless otherwise noted. * Argenis Ward, RN - 09/06/2020 11:00 AM CDT Stopped by to see patient and assess stoma. Patient was resting in bed and repor ting 9/10 pain in her lower abdomen, more so on the left than the right. Epidura l was removed earlier this AM. Bedside RN notified, PRN breakthrough meds availa ble per MAY. Current pouch remains in place, clean, dry and intact. No signs of any leaking n oted. Stoma red with a small amount of bowel sweat noted. Due to extreme pain currently unable to complete any additional ostomy education . Will plan to follow up tomorrow for ongoing teaching. Discussed a time that wo uld work for family. Plan for further teaching tomorrow between [id number]. JACINTO Wilson, RN, TCRN Wound/Ostomy Nursing Consult Service Available via [employer] or [employer] [phone] After hours please contact wound/engraver lettering "call out clerk" via [facility] [employer] * Denise Resendiz, PT - 09/06/2020 9:30 AM CDT PHYSICAL THERAPY NOTE Name: Carlos Alberto Torres : 1950 Age: 70 y.o. Admission Date: 09/04/2020 LOS: 2 days Attempted to see patient this AM for PT/OT however asked to return in PM. Patien t declined to participate despite encouragement and education about the role and benefits of physical therapy. Physical therapy will continue to follow and pro vide intervention as indicated. Therapist: Denise Resendiz [place] DPT [id number] Date: 09/06/2020 * Makenna Irving RD - 09/06/2020 8:41 AM CDT Nutrition Support Service (NSS) Progress Note Current PN Formula: Non-standard @ 75ml/hr, day 2 (first in-house bag infusing) Diet Order: CLD (ADAT to Regular) TF: n/a I/O: (incomplete) 500/1095ml PO: 480ml UOP: 1005ml HEMA: 65ml Colostomy: 25ml Meds: Scheduled Meds:acetaminophen (TYLENOL) tablet 650 mg, 650 mg, Oral, Q6H* buPROPion XL (WELLBUTRIN XL) tablet 150 mg, 150 mg, Oral, QDAY cefTRIAXone (ROCEPHIN) IVP 2 g, 2 g, Intravenous, Q24H* cetirizine (ZyrTEC) tablet 10 mg, 10 mg, Oral, QDAY COVID-19 vacc,mRNA (MODERNA) PF immunization 100 mcg, 100 mcg, Intramuscular, New Car Inspector fluconazole (DIFLUCAN) tablet 200 mg, 200 mg, Oral, QDAY furosemide (LASIX) tablet 40 mg, 40 mg, Oral, QDAY gabapentin (NEURONTIN) capsule 300 mg, 300 mg, Oral, BID levothyroxine (SYNTHROID) tablet 50 mcg, 50 mcg, Oral, QDAY methocarbamoL (ROBAXIN) tablet 750 mg, 750 mg, Oral, BID metroNIDAZOLE (FLAGYL) tablet 500 mg, 500 mg, Oral, BID nicotine (NICODERM CQ STEP 2) 14 mg/day patch 1 patch, 1 patch, Transdermal, Q24 H* oxybutynin XL (DITROPAN XL) tablet 15 mg, 15 mg, Oral, QDAY pantoprazole DR (PROTONIX) tablet 40 mg, 40 mg, Oral, QDAY scopolamine (TRANSDERM-SCOP) 1mg over 3 days patch 1 patch, 1 patch, Transdermal , Q72H* And Patch Documentation - Scopolamine base 1MG/72HR 1 patch, 1 patch, Transdermal, B ID polyethylene glycol 3350 (MIRALAX) packet 17 g, 1 packet, Oral, BID senna/docusate (SENOKOT-S) tablet 1 tablet, 1 tablet, Oral, BID vancomycin (FIRVANQ) oral solution 125 mg, 125 mg, Oral, BID WATER FOR INJECTION, STERILE IJ SOLN (Cabinet Override), , , NOW Continuous Infusions: Adult Continuous Parenteral Nutrition (PN) 75 mL/hr at 09/05/203 PRN and Respiratory Meds:HYDROmorphone (DILAUDID) injection Q2H PRN, hyoscyamine Q4H PRN, lidocaine PF PRN, melatonin QHS PRN, nalOXone PRN, nicotine polacrilex Q1H PRN, ondansetron Q6H PRN OR ondansetron (ZOFRAN) IV Q6H PRN, oxyCODONE Q4H PRN, phenoL PRN, simethicone Q6H PRN Electrolyte Treatments: none given yesterday or so far today Pertinent Labs: Comprehensive Metabolic Profile Lab Results Component Value Date/Time NA 138 09/06/2020 03:55 AM K 3.9 09/06/2020 03:55 AM CL 109 09/06/2020 03:55 AM CO2 22 09/06/2020 03:55 AM GAP 7 09/06/2020 03:55 AM BUN 34 (H) 09/06/2020 03:55 AM CR 1.19 (H) 09/06/2020 03:55 AM GLU 117 (H) 09/06/2020 03:55 AM Lab Results Component Value Date/Time CA 7.3 (L) 09/06/2020 03:55 AM PO4 2.5 09/06/2020 03:55 AM ALBUMIN 3.0 (L) 09/05/2020 03:30 AM TOTPROT 5.3 (L) 09/05/2020 03:30 AM ALKPHOS 90 09/05/2020 03:30 AM AST 23 09/05/2020 03:30 AM ALT 10 09/05/2020 03:30 AM TOTBILI 2.5 (H) 09/05/2020 03:30 AM GFR 45 (L) 09/06/2020 03:55 AM GFRAA 55 (L) 09/06/2020 03:55 AM Lab Results Component Value Date MG 2.0 09/06/2020 Trimg/dl (09/05/20) FSBS:146, 132, 136, 107, 138mg/dl Admit Weight (Kg): Weight: 64.9 kg (143 lb) (no source/suspect inaccurate); pt r eported chair weight at facility prior to transfer: 68.6kg (151 lb) Current Weight (Kg): Weight: 76.2 kg (167 lb 14.4 oz) (bed scale 09/05/20) Estimated PN Kcal Needs: 1445-1560kcal (25-27kcal/kg desired wt 57.8kg) Estimated Protein Needs: 86-104g (1.5-1.8g/kg desired wt) A/P: 70 yo F with hx including diverticulitis and complex GI and urologic surgic al hx, w recurrent colovesical and rectovaginal fistulas now s/p takedown of rec tovesical fistula, end transverse colostomy, R internal iliac vein injury and li gation, primary bladder repair, left sided ureter stent placement(09/04/20). Ole aviles was started on PN support during spring admit here at & discharged to facility on 07/10 PN support providing 100% estimated needs + FLD/diet as tolerated. NSS consulted 09/04 PM to start/manage PN post-op while awaiting ostomy function & diet advancement/tolerance. RD visited patient late morning POD1 (09/05); reports ongoing efforts at improving pain management this morning & some associated nausea; minimal ostomy output thus far. Patient is allowed ice chips & sips of juice per report, but patient admits to struggling with even sips of water so far. Reports at facility, PN ran 07/10 still & until transfer to ; was providing 100g AA, 230g dextrose, 235ml intralipid with 1800ml over 24hrs per latest rx from [facility]. NSS customized new PN for 09/05/20 based on post- op needs, weight status, labs etc. Given recent PN provisions & current appropriate lytes, PN was restarted at goal macronutrients. RD reviewed PN plan & reviewed diet strategies/tips for once diet advances & in setting of new colostomy; provided additional copy of ostomy diet handout (noted ethnoarchaeology professor already provided their education) during 09/05/20 visit. Patient voiced understanding/appreciation. Chart/labs reviewed. PN providing 1490kcal, 90g protein (100% goal). Also receiv ed LR bolus last night & NS @120ml/hr through the night (given soft pressures). Also getting transfusion earlier this morning with noted significant Hgb drop. Is on 3.5L NC. GI castro, patient reportedly tolerating well the CLD attempted thus far & is set to advance as tolerated. Minimal colostomy output so far. Some ambulation & better pain management. PN planned to continue through diet advancement/monitoring of tolerance. Appreciate team providing outside IVFs prn; will keep PN volume at 75ml/hr & 2/3NS equivalent Na content. Will keep lytes the same except increase K, Phos slightly. PN Changes (to start at 20:30): Increased K+ from 40 to 50mEq Increased Phos from 20 to 25mmol PN will provide 1490kcal (26kcal/kg desired wt), 90g protein (1.6g/kg desired wt ). Makenna Irving RD, LD, CNSC Available on Voalte | Office: [phone] * Sixto Nolan MD - 09/06/2020 7:23 AM CDT Surg Onc/Colorectal Surgery Progress Note 09/06/2020 Patient: Carlos Alberto Torres Admission date 09/04/2020, LOS: 2 days ASSESSMENT: Carlos Alberto Torres is a 70 y.o. Female with Colovesical fistula [N32.1] 70F w/ diverticulitis and complex GI and urologic surgical hx, w recurrent colov esical and rectovaginal fistulas now s/p takedown of rectovesical fistula, end t ransverse colostomy, R internal iliac vein injury and ligation, primary bladder repair, left sided ureter stent placement (09/04) PLAN: -OK to ADAT, self regulate, back off if n/v -Movantik 25mg oral qd until ostomy function. -Limit narcotics; recommend multimodal pain control. -CHG bath daily beginning POD 1. -PT/OT, encourage out of bed and ambulating -Ostomy education. -OK for DVT prophylaxis if no signs of bleeding. Patient to be seen and discussed with Dr. Jasbir Nolan MD Pager [phone] SUBJECTIVE: Patient having hypotension overnight with epidural needing paused. Patient repor ts abdominal soreness, improving, better with meds. Tolerating liquids. Denies n ausea or vomiting. Some ambulation yesterday. Bowel sweat in ostomy appliance wi th some serosanguinous output. OBJECTIVE: Vital Signs: Last Filed Vital Signs: 24 Hour Ran ge BP: 87/42 (09/07 627) Temp: 36.8 C (98.3 F) (09/07 627) Pulse: 85 (09/07 627) Respirations: 18 PER MINUTE (09/07 627) SpO2: 94 % (09/07 627) Weight: 76.2 kg (167 lb 14.4 oz) (09/05 1011) BP: (76-104)/(41-65) Temp: [36.7 C (98.1 F)-37.1 C (98.7 F)] Pulse: [85-104] Respirations: [17 PER MINUTE-20 PER MINUTE] SpO2: [81 %-95 %] Intensity Pain Scale (Self Report): (not recorded) A&O, NAD Unlabored respirations Regular rate Abd soft, ATTP, midline incision with operative dressing in place, some strike t hrough to inferior portion of dressing. HEMA in place with SS output. Stoma conges otoniel, beefy red with bowel sweat and SS output in appliance. Salomon and neph tubes in place with clear yellow urine output No C/C/E Recent Labs 09/04/20 1155 09/04/20 1317 09/04/20 1525 09/04/20201409/05/20 0330 09/06/20 0355 HGB -- -- 11.2* 9.2* 8.7* 5.9* HCT -- -- 31.9* 25.6* 25.2* 18.0* WBC -- -- 18.5* 20.0* 17.5* 13.1* PLTCT -- -- 239 208 209 239 NA 137 136* 136* -- 136* 138 K 4.2 4.2 4.3 -- 4.7 3.9 CL -- -- 101 -- 104 109 CO2 -- -- 23 -- 20* 22 BUN -- -- 30* -- 31* 34* CR -- -- 1.03* -- 1.11* 1.19* GLU 120* 161* 153* -- 144* 117* CA -- -- 7.8* -- 7.6* 7.3* MG -- -- -- -- 1.8 2.0 PO4 -- -- -- -- 4.2 2.5 ALBUMIN -- -- -- -- 3.0* -- TOTPROT -- -- -- -- 5.3* -- TOTBILI -- -- -- -- 2.5* -- AST -- -- -- -- 23 -- ALT -- -- -- -- 10 -- ALKPHOS -- -- -- -- 90 -- Glucose: (!) 117 (09/06/20 7785) POC Glucose (Download): (!) 138 (09/06/20 2410) Intake/Output Summary (Last 24 hours) at 09/06/2020 0723 Last data filed at 09/06/2020 0346 Gross per 24 hour Intake 500 ml Output 1095 ml Net -595 ml Principal Problem: Colovesical fistula * Laure Hull MD - 09/06/2020 5:53 AM CDT Urology Progress Note 09/06/2020 ASSESSMENT: Carlos Alberto Torres is a 70 y.o. Female with large colovesical/vaginal fistula s/p multiple surgeris for complications from diverticulitis now s/p ex-lap, fist benjy excision, partial cystectomy, transverse end colostomy complicated by right internal iliac vein injury LOS: 2 days ACTIVE PROBLEMS: Principal Problem: Colovesical fistula PLAN: will discuss plan with staff surgeon - Dr. Rodriguez - Pain control: PCEA in place, appreciate anestheisa pain assistance. Will remov e PCEA and transition to PO with IV for breakthrough - Diet/FEN: Diet per colorectal team. CLD, TPN - GI: bowel regimen, zofran prn - : Salomon catheter with antispasmodics in place. Right and Left NT in place. - Renal: Cr 1.19. Replete lytes prn - Heme/ID: afebrile. Rocephin, Diflucan, Flagyl, oral Vanc. > ID consulted, appreciate recs - Continue Rocephin, metronidazole, fluconazole through 09/08. Continue oral vanc through 09/10. > 2u pRBC intraop > 09/06 Hgb 5.9 (8.7), wbc 13.1 (17.5) > 2u pRBC 09/06. Will recheck CBC this afternoon - CANDLE MOLDER: lasix, bupropion, synthroid - Nicoderm patch and gum - OOB/Amb - Dispo: Continue inpatient care Prophylaxis Review: - DVT: SCD's, Start prophylaxis this AM - Catheter: Yes - Abx: Yes Laure Hull MD PGY-1 Urology Please page urology source water protection specialist with questions SUBJECTIVE: Patient continues to have soft pressures. Symptomatic hypotension overnight, and epidural was paused. Hgb 5.9, with plans to transfuse 2upRBC. Pain is better co ntrolled. Tolerating clear liquid diet with baseline nausea, and no emesis. Has not ambulated. OBJECTIVE: Vital Signs: Most Recent Vital Signs: Past 24 Ho urs BP: 92/46 (09/06 522) Temp: 37.1 C (98.7 F) (09/06 522) Pulse: 91 (09/06 522) Respirations: 17 PER MINUTE (09/06 522) SpO2: 94 % (09/06 522) Weight: 76.2 kg (167 lb 14.4 oz) (09/05 1011) BP: (76-104)/(41-65) Temp: [36.7 C (98.1 F)-37.1 C (98.7 F)] Pulse: [87-104] Respirations: [17 PER MINUTE-20 PER MINUTE] SpO2: [81 %-95 %] General: Alert & oriented, no acute distress Pulm: non-labored on RA CV: Regular rate Abd: Soft, appropriately tender, non-distended. Incisions/Wounds: Appropriately tender to palpation. Midline incision with dress ing with mild saturation inferiorly. HEMA SS. Colostomy with sanguinous bowel swea t present. Extremities: No edema, SCD's in place : Salomon catheter in place draining dark shruthi urine. Right NT draining clear y ellow urine. Left NT draining clear yellow urine. Labs: Hematology Chemistry Recent Labs 09/06/20 0355 WBC 13.1* HGB 5.9* PLTCT 239 Recent Labs 09/06/20 0355 NA 138 K 3.9 CL 109 CO2 22 BUN 34* CR 1.19* GFR 45* GLU 117* CA 7.3* PO4 2.5 Intake/Output: Date 09/05/20 07 - 09/06/20 0709/06/20 07 - 09/07/20 0700 Shift 9559-0987 8618-5148 24 Hour Total 9979-4901 8213-1986 24 Hour Total INTAKE P.O. 0 480 480 Other 20 20 Shift Total(mL/kg) 20(0.3) 480(6.3) 500(6.6) OUTPUT Urine(mL/kg/hr) 400(0.4) 605 1005 Urine 0 0 Urine Output (ml) (Indwelling Urinary Catheter 09/04/20 ) 25 0 25 Urine Output (ml) (NEPHROSTOMY TUBE 06/29/20 0828 Flank, Right Lower Lateral 8 FR) 150 245 395 Urine Output (ml) (NEPHROSTOMY TUBE 06/29/20 0828 Flank, Left Lower Lateral 8 FR) 225 360 585 Drains 75 15 90 Drain Output (ml) (Colostomy 09/04/20 1419 Upper Right Quadrant) 25 0 25 Drain Output (ml) (Giovanni Santoro Drain 09/04/20 1419 Anterior Abdomen #1) 50 1 5 65 Shift Total(mL/kg) 475(6.2) 620(8.1) 1095(14.4) NET -455 140 -595 Weight (kg) 76.2 76.2 76.2 76.2 76.2 76.2 Malnutrition Details: Associated attestation - Lorena Rodriguez MD - 09/09/2020 1:08 PM CDT Attestation I saw and evaluated pt with the resident on rounds and performed the jurado portion s of the e/m. I agree with the above assessment and plan. Pt's Hgb decreased s ignificantly. Creat increased slightly. Plan to transfuse 2 units of pRBCs and recheck Hgb. If she has an inappropriate response, plan to proceed with CT scan to evaluate. Diet for CRS service. Continue inpt care. Lorena Rodriguez MD, FACS * Larry Ramsay, KOBI - 09/05/2020 6:44 PM CDT 09/05/20184109/05/201842 Vitals Temp 37.1 C (98.7 F) -- Temperature Source Oral -- Pulse 103 -- Respirations 19 PER MINUTE -- SpO2 (!) 81 % 94 % $$ O2 Delivery RA NC $$ O2 Device -- Cannula O2 Liter Flow -- 3.5 Lpm BP (!) 76/47 -- Mean NBP (Calculated) 57 MM HG -- NBP MAP (Manual Entry) 54 mm Hg -- RN notified Nishant Perry about pressures and pts new need for oxygen requireme nt. Epidural paused and RN will recheck vitals. Will continue to monitor. * Jhonatan Jiang DO - 09/05/2020 2:16 PM CDT Anesthesiology Acute Pain Service Daily Progress Note Patient: Carlos Alberto Torres Admission Date: 09/04/2020 Procedure Date: 09/04/2020 Procedure: EXPLORATORY LAPAROTOMY WITHOUT BIOPSY WITH PARTIAL CYSTECTOMY, COLECT TOÑA WITH COLOPROCTOSTOMY AND COLOSTOMY - PARTIAL Assessment/Plan Analgesic Technique PCEA Level: T8-T9 (JOHN at 6, Cath at 11) Local Anesthetic: Bupi 0.125% @ 8 ml/hr Catheter Day: 2 Analgesics: Dilaudid and Oxycodone APAP and Gabapentin, Robaxin Anticoagulants: TBD Treatment Plan Having some discomfort near hernia site, left of incision, but she is numb to ic e. Also having some crampy pain, for which we've initiated Robaxin. In order to minimize opioids we've converted to plain bupivacaine via epidural. No flatulenc e or bowel movements quite yet, but her oral intake has been miniscule. Diet ranulfo uld be advanced shortly and we'll rely further on a PO regimen. Goal up to chair or ambulate today. No other issues. Patient seen and discussed with staff. Homero Jiang Acute Pain, PGY4 Voalte Subjective Visual Analog Scale (VAS) at rest (0 - 10 scale): 4 Patient satisfied with pain control: Yes Side effects: none Objective Vital Signs BP: 98/52 (09/05 1253) ABP: 92/55 (09/04 1830) Temp: 36.8 C (98.2 F) (09/05 1253) Pulse: 104 (09/05 1253) Respirations: 19 PER MINUTE (09/05 1253) SpO2: 92 % (09/05 1253) Weight: 76.2 kg (167 lb 14.4 oz) (09/05 1011) Level of Consciousness: Awake/alert Neurologic Function Sensory block: Yes Motor block: No Insertion Site: Site clean and nontender Laboratory Lab Results Component Value Date PLTCT 209 09/05/2020 WBC 17.5 09/05/2020 HGB 8.7 09/05/2020 HCT 25.2 09/05/2020 Lab Results Component Value Date PTT 29.3 06/28/2020 INR 1.0 06/28/2020 Associated attestation - Bran Pereyra MD - 09/05/2020 2:44 PM CDT I personally observed the resident performing the E/M, discussed case with resid ent, and concur with resident documentation of history, physical assessment and treatment plan unless otherwise noted. * Sheela Martinez, PT - 09/05/2020 1:00 PM CDT PHYSICAL THERAPY ASSESSMENT Name: Carlos Alberto Torres : 1950 Age: 70 y.o. Admission Date: 09/04/2020 LOS: 1 day Per RN, patient with ongoing pain control issues but patient currently toleratin g chair mode in bed. Upon PT/clinical rehab specialist arrival, patient declined to parti cipate despite encouragement and education about the role and benefits of physic al therapy. Patient states she is surprised she is tolerating chair mode so well and would prefer to re-attempt at a later time. Subjective information gathered and listed below: Subjective Significant hospital events: 70F w/ diverticulitis and complex GI and urologic s urgical hx, w recurrent colovesical and rectovaginal fistulas now s/p takedown o f rectovesical fistula, end transverse colostomy, R internal iliac vein injury a nd ligation, primary bladder repair, left sided ureter stent placement (09/04). Mental / Cognitive Status: Alert;Oriented;Cooperative Ambulation Assist: Independent Mobility in Community without Device Patient Owned Equipment: Roller Walker Home Situation: Lives [facility] Roommate(Fiance) Type of Home: House Entry Stairs: No Stairs In-Home Stairs: No Stairs Comments: Patient reports her fiance is currently hospitalized at [facility] with COVID , so she is unsure if he will be able to assist her upon discharge (anticipating not). Patient endorses history of one fall; knees buckled. Patient states she is open to discharging to inpatient setting for further treatment if indicated, but only for short stay. 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 Physical therapy will continue to follow and provide intervention as indicated. Therapist Sheela Martinez, PT, DPT [id number] Date 09/05/2020 * Dale Kamara RN - 09/05/2020 10:16 AM CDT Patient alert and oriented x4. Profile updated, care plan/education updated, murali l light within reach. Daughters at bedside to assist * Argenis Ward RN - 09/05/2020 9:46 AM CDT Wound Ostomy Note NAME:Carlos Alberto Torres :1950 AGE: 70 y.o. ADMISSION DATE: 09/04/2020 DAYS ADMITTED: LOS: 1 day Reason for Consult/Visit: ostomy education Assessment/Plan: Principal Problem: Colovesical fistula 70 y.o. female with a large colovesical/vaginal fistula s/p multiple surgeries f or complications from diverticulitis here for surgery Patient resting in bed at time of arrival, supine, reporting severe pain. Family at bedside, daughters x2. Anesthesia just left after making adjustments to yoly ents epidural. Patient and family report that patient has had an ostomy before, LUQ, under her left breast. Patient stated that due to placement she could not see the stoma an d required family to provide all care. They reported significant issues with th e colostomy, leaking. Pouch wear time was 24 hours or less. At that time patient was wearing a 2 piece pouch. 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 Patient desires to be independent and is optimistic with the location of the new stoma. Two piece pouch in place at this time. No signs of any leaking noted, pouch ferdinand n, dry and intact. Stoma dark red with expected post op drainage. Minimal amount of bowel sweat in bag. Education packet provided patient and family and content reviewed. Plan for furt her education tomorrow once patients pain is better controlled. Patients ngoc avila are leaving today and patients sister, Katelin, will be at bedside for the amy narayan of her hospitalization. Family reports that patient will be placed at [facility] per MD recommendations. Colostomy 09/04/20 1419 Upper Right Quadrant (Active) 09/04/20 1419 Upper Right Quadrant Agree With My Assessment? 09/04/20 1900 Stoma Assessment Red;Edema 09/05/20 0900 Drainage Description Serosanguineous- bowel sweat 09/05/20 09 Peristomal Skin Assessment Unable to Assess 09/05/20 09 Dressing Status Intact;Dry;Clean 09/05/20 09 Drain Output (ml) 25 ml 09/05/20 0840 JACINTO Wilson, RN, TCRN Wound/Ostomy Nursing Consult Service Available via [employer] or [employer] [phone] After hours please contact wound/engraver lettering "call out clerk" via Voalte * Enio Grant MD - 09/05/2020 7:32 AM CDT Surg Onc/Colorectal Surgery Progress Note 09/05/2020 Patient: Carlos Alberto Torres Admission date 09/04/2020, LOS: 1 day ASSESSMENT: Carlos Alberto Torres is a 70 y.o. Female with Colovesical fistula [N32.1] 70F w/ diverticulitis and complex GI and urologic surgical hx, w recurrent colov esical and rectovaginal fistulas now s/p takedown of rectovesical fistula, end t ransverse colostomy, R internal iliac vein injury and ligation, primary bladder repair, left sided ureter stent placement (09/04) PLAN: -OK to ADAT, self regulate, back off if n/v -Maintenance fluids until tolerating PO. -Recommend Ancef 2g q8hrs for 3 doses and flagyl 500mg q8hrs for 2 doses. -Movantik 25mg oral qd until ostomy function. -Limit narcotics; recommend multimodal pain control. -CHG bath daily beginning POD 1. -PT/OT, encourage out of bed and ambulating -Ostomy education. -OK for DVT prophylaxis beginning POD 1 if no signs of bleeding. Patient to be seen and discussed with Dr. Rosa Grant MD [id number] SUBJECTIVE: Soft pressures overnight, +1L bolus. Patient reports abdominal soreness, improvi ng, better with meds. Tolerating liquids. Some nausea. Has not been up out of be d. No ostomy function. OBJECTIVE: Vital Signs: Last Filed Vital Signs: 24 Hour Ran ge BP: 97/65 (09/05 0327) ABP: 92/55 (09/04 1830) Temp: 36.8 C (98.3 F) (09/05 326) Pulse: 117 (09/05 326) Respirations: 20 PER MINUTE (09/05 326) SpO2: 93 % (09/05 326) Height: 152.4 cm (60") (09/04 918) Weight: 64.9 kg (143 lb) (09/04 918) BP: (80-142)/(52-97) ABP: (84-138)/(50-84) Temp: [35.7 C (96.3 F)-36.9 C (98.4 F)] Pulse: [68-117] Respirations: [11 PER MINUTE-35 PER MINUTE] SpO2: [93 %-100 %] Intensity Pain Scale (Self Report): (not recorded) A&O, NAD Unlabored respirations Regular rate Abd soft, ATTP, midline incision with operative dressing in place, some strike t hrough to inferior portion of dressing. HEMA in place with SS output. Stoma conges otoniel, beefy red. Salomon and neph tubes in place with clear yellow urine output No C/C/E Recent Labs 09/04/20 1155 09/04/20 1317 09/04/20 1525 09/04/20201409/05/20 0330 HGB -- -- 11.2* 9.2* 8.7* HCT -- -- 31.9* 25.6* 25.2* WBC -- -- 18.5* 20.0* 17.5* PLTCT -- -- 239 208 209 NA 137 136* 136* -- 136* K 4.2 4.2 4.3 -- 4.7 CL -- -- 101 -- 104 CO2 -- -- 23 -- 20* BUN -- -- 30* -- 31* CR -- -- 1.03* -- 1.11* GLU 120* 161* 153* -- 144* CA -- -- 7.8* -- 7.6* MG -- -- -- -- 1.8 PO4 -- -- -- -- 4.2 ALBUMIN -- -- -- -- 3.0* TOTPROT -- -- -- -- 5.3* TOTBILI -- -- -- -- 2.5* AST -- -- -- -- 23 ALT -- -- -- -- 10 ALKPHOS -- -- -- -- 90 Glucose: (!) 144 (09/05/20 0330) POC Glucose (Download): 80 (09/04/20 1022) Intake/Output Summary (Last 24 hours) at 09/05/2020 0732 Last data filed at 09/05/2020 0333 Gross per 24 hour Intake 2920 ml Output 3335 ml Net -415 ml Principal Problem: Colovesical fistula Associated attestation - Braulio Lee MD - 09/05/2020 11:19 AM CDT ATTESTATION I personally performed the jurado portions of the E/M visit, discussed case with re sident and concur with resident documentation of history, physical exam, assessm ent, and treatment plan unless otherwise noted. Staff name: Braulio Lee MD Date: 09/05/2020 * Laure Hull MD - 09/05/2020 5:49 AM CDT Urology Progress Note 09/05/2020 ASSESSMENT: Carlos Alberto Torres is a 70 y.o. Female with large colovesical/vaginal fistula s/p multiple surgeris for complications from diverticulitis now s/p ex-lap, fist benjy excision, partial cystectomy, transverse end colostomy complicated by right internal iliac vein injury LOS: 1 day ACTIVE PROBLEMS: Principal Problem: Colovesical fistula PLAN: will discuss plan with staff surgeon - Dr. Rodriguez - Pain control: PCEA in place, appreciate anestheisa pain assistance - Diet/FEN: Diet per colorectal team. NPO, mIVF @ 120ml/hr. TPN - GI: bowel regimen, zofran prn - : Salomon catheter with antispasmodics in place. Right and Left NT in place. - Renal: Cr 1.11. Replete lytes prn - Heme/ID: afebrile. Rocephin, Diflucan, Flagyl, oral Vanc. ID consulted, apprec iate recs > 2u pRBC intraop > 6/22 Hgb 8.7, wbc 17.5 - CANDLE MOLDER: lasix, bupropion, synthroid - Nicoderm patch and gum - OOB/Amb - Dispo: Continue inpatient care Prophylaxis Review: - DVT: SCD's, Start prophylaxis tonight - Catheter: Yes - Abx: Yes Laure Hull MD PGY-1 Urology Please page urology source water protection specialist with questions SUBJECTIVE: Overnight, had pain with known hernia and had soft pressures with epidural in pl brandy. Bolused 1L overnight. Pain continues to be poorly continued. Nauseated, one small emesis. Has not ambulated. Bowel sweat in colostomy OBJECTIVE: Vital Signs: Most Recent Vital Signs: Past 24 Ho urs BP: 97/65 (09/05 326) ABP: 92/55 (09/04 1829) Temp: 36.8 C (98.3 F) (09/05 326) Pulse: 117 (09/05 326) Respirations: 20 PER MINUTE (09/05 326) SpO2: 93 % (09/05 326) Height: 152.4 cm (60") (09/04 918) Weight: 64.9 kg (143 lb) (09/04 918) BP: (80-142)/(52-97) ABP: (84-138)/(50-84) Temp: [35.7 C (96.3 F)-36.9 C (98.4 F)] Pulse: [68-117] Respirations: [11 PER MINUTE-35 PER MINUTE] SpO2: [93 %-100 %] General: Alert & oriented, no acute distress Pulm: non-labored on RA CV: Regular rate Abd: Soft, appropriately tender, non-distended. Incisions/Wounds: Appropriately tender to palpation. Midline incision with dress ing with mild saturation inferiorly. HEMA SS. Colostomy congested with sanguinous bowel sweat present. Extremities: No edema, SCD's in place : Salomon catheter in place draining clear yellow urine. Right NT draining clear yellow urine. Left NT draining clear yellow urine. Labs: Hematology Chemistry Recent Labs 09/05/20 0330 WBC 17.5* HGB 8.7* PLTCT 209 Recent Labs 09/05/20 0330 NA 136* K 4.7 CL 104 CO2 20* BUN 31* CR 1.11* GFR 49* GLU 144* CA 7.6* PO4 4.2 Intake/Output: Date 09/04/20700 - 09/05/2069909/05/20700 - 09/06/20 07 Shift 4735-3337 8532-5490 24 Hour Total 5004-3749 2595-8147 24 Hour Total INTAKE I.V.(mL/kg/hr) 2300(3) 2300 Blood 600 600 Other 20 20 Shift Total(mL/kg) 2900(44.7) 20(0.3) 2920(45) OUTPUT Urine(mL/kg/hr) 540(0.7) 425 965 Urine 200 200 Urine Output (ml) (Indwelling Urinary Catheter 09/04/20 ) 140 25 165 Urine Output (ml) (NEPHROSTOMY TUBE 06/29/20 0828 Flank, Right Lower Lateral 8 FR) 70 150 220 Urine Output (ml) (NEPHROSTOMY TUBE 06/29/20 0828 Flank, Left Lower Lateral 8 FR) 130 250 380 Drains 230 90 320 Drain Output (ml) (Colostomy 09/04/20 1419 Upper Right Quadrant) 0 0 Drain Output (ml) (Giovanni Santoro Drain 09/04/20 1419 Anterior Abdomen #1) 230 90 320 Other 2049 2049 Estimated Blood Loss 2049 2049 Shift Total(mL/kg) 2820(43.5) 515(7.9) 3335(51.4) NET 61 -427 -423 Weight (kg) 64.9 64.9 64.9 64.9 64.9 64.9 Malnutrition Details: * Roseanna Wolff MD - 09/04/2020 10:31 PM CDT RN paged due to patient's pain uncontrolled but patient also hypotensive. Epidur al paused at approximately 20:45. IVF bolus ordered by urology team and labs sen t - Hb 9.2. BP improving after IVF bolus. Assessed patient at bedside, she stat es her pain is 7/10 at rest but up to 10/10 with any movement. Mostly LLQ pain. On exam with ice, she has some numbness in the mid left abdomen but does not hav e an adequate level. Per notes in PACU, patient previously had a good level. Epi dural dosing limited due to hypotension. Discussed with RN. Will recheck BP in 30 min and if stable, will restart epidura l at a basal rate of 6 cc/hr and no PCEA button. Will also switch to bupi/dilaud id epidural syringe. IV dilaudid available for breakthrough pain. Please call with any questions. Roseanna Wolff Pager [phone] * Mckinley Yost MD - 09/04/2020 8:45 PM CDT Brief Urology Note RN called regarding left-sided, tender swelling in Ms. Torres. Discussed this was her known hernia that was present pre-op. Surgery team called regarding hypoten huseyin to 80s/50s and requested CBC given iliac vein repair intraop. At the bedside the patient's midline dressing was mostly dry with mildly saturat ed portion inferiorly with HEMA maroon colored serosanguinous. Her left-sided, lar ge abdominal hernia was significantly tender, however without skin changes. She verbalized that her hernia was previously tender prior to surgery. Overall, the remainder of her abdominal exam was benign without any peritoneal signs. Her cog nition appeared at baseline. She states that her baseline SBP is approx ~100; th erefore with her epidural SBP in the high 80s-90s will likely be appropriate for her while in place. Will give her 1 L bolus LR, check CBC as requested by gener al surgery, and discuss epidural adjustments with anesthesia pain if any further issues. Discussed abdominal exam with the the bedside RN, specifically signs that would warrant concern -- rigid abdomen, diffuse guarding, skin changes, etc. He verbal ized understanding. Will continue to closely monitor her. Discussed these findin gs with the family at bedside. Mckinley Yost M.D. Urology PGY-3 Please page urology source water protection specialist with questions or concerns * Lori Morley RN - 09/04/2020 7:00 PM CDT RN noticed left side of pt's abdomen appeared more swollen than it was immediate ly post op. Colostomy now draining dark sanguinous fluid as well. Both Wyre and Jasbir teams were notified. Because of pt's known left sided hernia, both team s are not concerned at this time. Will continue to monitor. * Sami Bermudez MD - 09/04/2020 3:07 PM CDT Colorectal postoperative recommendations: Enhanced recovery after surgery (ERAS) pathway: -Clear liquid diet today, likely advance diet as tolerated tomorrow. -Maintenance fluids until tolerating PO. -Recommend Ancef 2g q8hrs for 3 doses and flagyl 500mg q8hrs for 2 doses. -Movantik 25mg oral qd until ostomy function. -Limit narcotics; recommend multimodal pain control. -CHG bath daily beginning POD 1. -PT/OT -Ostomy education. -OK for DVT prophylaxis beginning POD 1 if no signs of bleeding. -Post op labs given intraoperative blood loss. Sami Bermudez MD General Surgery Resident * Camila Barajas RN - 09/04/2020 9:37 AM CDT Wound Ostomy Note NAME:Carlos Alberto Torres :1950 AGE: 70 y.o. ADMISSION DATE: 09/04/2020 DAYS ADMITTED: LOS: 0 days Reason for Visit: ostomy marking Planned Procedure: Cystectomy with ureteroileal conduit/sigmoid bladder includin g intestinal anastomosis, ex lap with/without biopsy, repair incisional/ventral hernia, colectomy with coloproctostomy and colostomy Surgeon: Dr. Rodriguez, Dr. Martell Abdominal Assessment: Supine - Abdomen with several scars from previous surgeries; chronic non-healing surgical wound in right lower quadrant with dressing; left lower abdomen with i mpressive hernia; significant scarring over mons pubis and deep crease at level of hips Seated - Pt's abdomen becomes one large skin fold; deep creases noted around wou nd in RLQ; Scar in mid left abdomen deepens Standing - Abdomen continues to present as one large skin fold; breasts are pend ulous and rest over left and right upper quadrants Wears waistband above abdomen and just below breasts Concerns - Pt with limited surface area for marking due to scarring, skin crease s, and hernia Sites Marked - x 3; RUQ, LUQ, LLQ Preference - upper quadrant markings Discussed concerns marking sites with Dr. Rodriguez. Our service will plan to f/u with pt tomorrow and begin ostomy education if pt's condition is appropriate for learning. Camila Barajas RN, BSN, CWON Wound/Ostomy Nursing Consult Service Available via [employer] text or [employer] Contact Team "New Car Inspector" after 4:00pm M-F/weekends/holidays documented in this encounter H&P Notes * Sixto Nolan MD - 09/04/2020 9:00 AM CDT History and Physical Update Note Allergies: Bactrim [sulfamethoxazole-trimethoprim] and Blue dye Lab/Radiology/Other Diagnostic Tests: 24-hour labs: Results for orders placed or performed during the hospital encounter of 09/04/20 (from the past 24 hour(s)) TYPE & CROSSMATCH Collection Time: 09/04/20 9:19 AM Result Value Ref Range Units Ordered 4 Crossmatch Expires 09/07/2020,4729 Record Check 2ND TYPE REQUIRED ABO/RH(D) PENDING Antibody Screen PENDING Point of Care Testing: (Last 24 hours): Nutrition: Dietitian Documentation Wound: Wound Documentation I have examined the patient, and there are no significant changes in their condi tion, from the previous H&P performed on 08/18/20. Sixto Nolan MD Pager [phone] * Lorena Rodriguez MD - 09/04/2020 8:40 AM CDT Urology Operative History and Physical 09/04/2020 Patient: Carlos Alberto Torres Admission Date: 09/04/2020, LOS: 0 days Admission Diagnosis: Colovesical fistula [N32.1] Surgeon: Michael ASSESSMENT: 70 y.o. female with a large colovesical/vaginal fistula s/p multiple surgeries for complications from diverticulitis here for surgery. The risks, be nefits, alternatives have been explained to her and all questions have been answ ered. PLAN: -- To OR for pelvic exenteration, ileal conduit formation, ventral hernia repair Mohit Dacosta MD Urology PGY5 [phone] Attestation I saw and evaluated pt with the resident on rounds and performed the jurado portion s of the e/m. I agree with the above assessment and plan. Lorena Rodriguez MD, FACS __ HPI: In 2011 Ms. Torres experienced diverticulitis and months later developed rec tovaginal fistula. 12/2011 - open sigmoidectomy, small bowel resection, [facility] Dr[facility] Le[facility]. Surgery c/b R ureteral injury s/p repair of the R ureter with ureteroureterostomy (same day) Apr - July 2012 developed ureterocolonic fistula to the colorectal anastomosis an d underwent [address] Leal + Dr. 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 Diff, upper tracts with mild hydro and debris. Urine and NT cultures grew Brenda parapsilosis Currently - has been on TPN, ceftriaxone, PO flagyl, and PO vancomycin managed b y ID and has been in a SNF in [place] Medical History: Diagnosis Date Colovesical fistula Diverticulitis [...] SURGERY 08/24/2014 Laparoscopy with redo colocolonic anastomosis ABDOMEN SURGERY SECTION x 2 HX ROSARIO AND BSO Medications: No current facility-administered medications on file prior to encounter. Current Outpatient Medications on File Prior to Encounter Medication Sig Dispense Refill acetaminophen (TYLENOL) 325 mg capsule Take 325 mg by mouth every 6 hours as needed. Max of 4,000 mg of acetaminophen in 24 hours. cefTRIAXone (ROCEPHIN) 2 g solr 2 grams IV every 24 hours. dicyclomine (BENTYL) 10 mg capsule Take one capsule by mouth three times carline ly before meals. Preference is to use trospium. This is only to be used if trosp ium is not available. Do not use both. 90 capsule 3 fluconazole (DIFLUCAN) 200 mg tablet Take one tablet by mouth daily. furosemide (LASIX) 40 mg tablet Take one tablet by mouth daily. hyoscyamine (ANASPAZ) 0.125 mg rapid dissolve tablet Place one tablet under tongue every 4 hours as needed. 30 tablet 1 levocetirizine (XYZAL) 5 mg tab Take 1 tablet by mouth daily as needed. levothyroxine (SYNTHROID) 50 mcg tablet Take 50 mcg by mouth daily. methocarbamoL (ROBAXIN) 750 mg tablet Take one tablet by mouth twice daily. 15 tablet 1 metroNIDAZOLE (FLAGYL) 500 mg tablet Take one tablet by mouth twice daily. T sandrine with food. Do not drink alcohol while on metronidazole. nicotine polacrilex (NICORETTE) 2 mg gum Take one each by mouth every 1 hour as needed. Chew to soften and park in mouth between lip and gum. May use 1 piec e per hour, not to exceed 24 per day, for 12 weeks. May be used for longer, if n eeded. 2 box 1 other medication Total Parenteral Nutrition. oxyCODONE (ROXICODONE) 5 mg tablet Take one tablet to two tablets by mouth e very 4 hours as needed [address] (PROTONIX) 40 mg tablet Take one tablet by mouth daily. 90 t ablet 1 polyethylene glycol 3350 (MIRALAX) 17 g packet Take one packet by mouth twic e daily as needed. 12 each 3 simethicone (MYLICON) 80 mg chew tablet Chew one tablet by mouth every 6 el[address]abeth rs as needed for Flatulence. 30 tablet 1 trospium XR (SANCTURA XR) 60 mg capsule Take one capsule by mouth daily. Thi s is preferred over dicyclomine which has also been ordered. Do not use both. 90 capsule 3 vancomycin (FIRVANQ) 25 mg/mL oral solution Take 5 mL by mouth twice daily. Continue while on antibiotics vitamin A & D oint Apply topically to affected area as Needed. 113 g 0 Allergies: Bactrim [sulfamethoxazole-trimethoprim] and Blue dye Social [...] 24 Hours Vital Signs: 24 Hour Range Intake/Output: No intake or output data in the 24 hours ending 09/04/20 0840 Physical Exam: General: No acute distress, resting comfortably, well-nourished Chest: symmetrical, non-labored breathing, CTABL Cardiac: regular rate and rhythm, no murmurs, 2+ radial and dorsalis pedis pulse s Abdomen: soft, non-distended, non-tender, +BS all four quadrants, no dullness to percussion : normal genitalia for sex and age, no CVA tenderness Extremities: no c/c/e. Neuro: CNII-XII intact, normal strength at policy and planning manager, elbows and knees, ankles, vladimir l sensation all 4 extremities Psych: appropriate mood and affect ROS: A complete 14 point ROS was obtained and was negative except for those listed in HPI Lab/Radiology/Other Diagnostic Tests: No results for input(s): HGB, HCT, WBC, PLTCT, NA, K, CL, CO2, BUN, CR, GLU, CA, MG, PO4, ALBUMIN, TOTPROT, TOTBILI, AST, ALT, ALKPHOS, ARGELIA, LIPASE, PREALB, INR, PT, PTT in the last 72 hours. * Bran Martell DO - 08/18/2020 8:30 AM CDT Name: Carlos Alberto Torres : 1950 AGE: 8 8 y.o. DATE OF SERVICE: 08/18/2020 Subjective: Reason for Visit: Follow Up Carlos Alberto Torres is a 70 y.o. female. Cancer Staging No matching staging information was found for the patient. History of Present Illness 70 y.o. female with a very complex issue. She has a large colo vesicular fistul a. She was recently in the hospital and was being treated for sepsis. This res olved and she was quite malnourished. The decision was made for outpatient tpn and PO nutritional supplements. She has been in rehab since then. There are issues with her insurance for this. She may be discharged sooner than desired. She is active. She is not eating much. Mostly clear liquid diet. Medical History: Diagnosis Date Colovesical fistula Diverticulitis Hypertension Hypothyroid Rectovaginal fistula Right ureteral injury Surgical History: Procedure Laterality Date HX SURGERY [...] SURGERY 08/24/2014 Laparoscopy with redo colocolonic anastomosis SECTION x 2 HX ROSARIO AND BSO No family history on file. Social History Socioeconomic History Marital status: Spouse name: Not on file Number of children: Not on file Years of education: Not on file Highest education level: Not on file Occupational History Not on file Tobacco Use Smoking status: Current Every Day Smoker Smokeless tobacco: Never Used Substance and Sexual Activity Alcohol use: Not Currently Drug use: Never Sexual activity: Not on file Other Topics Concern Not on file Social History Narrative Not on file Review of Systems Constitutional: Positive for activity change, fatigue and unexpected weight wise ge. Negative for chills and fever. HENT: Negative for congestion. Eyes: Negative. Respiratory: Negative for cough, choking, chest tightness and shortness of breat h. Cardiovascular: Negative for chest pain and leg swelling. Gastrointestinal: Positive for abdominal pain. Negative for abdominal distention , anal bleeding, blood in stool, constipation, diarrhea, nausea, rectal pain and vomiting. Endocrine: Negative for polydipsia and polyphagia. Genitourinary: Positive for difficulty urinating, dysuria and flank pain. Negati ve for frequency. Musculoskeletal: Negative for arthralgias and myalgias. Skin: Negative for pallor and rash. Neurological: Negative for dizziness and light-headedness. Hematological: Negative for adenopathy. Does not bruise/bleed easily. Psychiatric/Behavioral: Negative for agitation, behavioral problems and confusio n. Objective: acetaminophen (TYLENOL) 325 mg capsule Take 325 mg by mouth every 6 hours as needed. Max of 4,000 mg of acetaminophen in 24 hours. buPROPion XL (WELLBUTRIN XL) 150 mg tablet Take 1 tablet by mouth daily. cefTRIAXone (ROCEPHIN) 2 g solr 2 grams IV every 24 hours. dicyclomine (BENTYL) 10 mg capsule Take one capsule by mouth three times carline ly before meals. Preference is to use trospium. This is only to be used if trosp ium is not available. Do not use both. fluconazole (DIFLUCAN) 200 mg tablet Take one tablet by mouth daily. furosemide (LASIX) 40 mg tablet Take one tablet by mouth daily. hyoscyamine (ANASPAZ) 0.[address] dissolve tablet Place one tablet under tongue every 4 hours as needed. levocetirizine (XYZAL) 5 mg tab Take 1 tablet by mouth daily as needed. levothyroxine (SYNTHROID) 50 mcg tablet Take 50 mcg by mouth daily. methocarbamoL (ROBAXIN) 750 mg tablet Take one tablet by mouth twice daily. metroNIDAZOLE (FLAGYL) 500 mg tablet Take one tablet by mouth twice daily. T sandrine with food. Do not drink alcohol while on metronidazole. nicotine (NICODERM CQ STEP 1) 21 mg/day patch Apply one patch to top of skin as directed daily. Rotate patch location. Indications: stop smoking nicotine polacrilex (NICORETTE) 2 mg gum Take one each by mouth every 1 hour as needed. Chew to soften and park in mouth between lip and gum. May use 1 piece per hour, not to exceed 24 per day, for 12 weeks. May be used for longer, if n eeded. other medication Total Parenteral Nutrition. oxyCODONE (ROXICODONE) 5 mg tablet Take one tablet to two tablets by mouth e very 4 hours as needed pantoprazole DR (PROTONIX) 40 mg tablet Take one tablet by mouth daily. polyethylene glycol 3350 (MIRALAX) 17 g packet Take one packet by mouth twic e daily as needed. simethicone (MYLICON) 80 mg chew tablet Chew one tablet by mouth every 6 [address] rs as needed for Flatulence. trospium XR (SANCTURA XR) 60 mg capsule Take one capsule by mouth daily. Thi s is preferred over dicyclomine which has also been ordered. Do not use both. vancomycin (FIRVANQ) 25 mg/mL oral solution Take 5 mL by mouth twice daily. Continue while on antibiotics vitamin A & D oint Apply topically to affected area as Needed. There were no vitals filed for this visit. There is no height or weight on file to calculate BMI. Pain Addressed: N/A Patient Evaluated for a [...] Assessment and Plan: 70 y.o. female with a complex set of issues. First and foremost, I would need to arrange for resection and repair of this lar ge fistula. This will be a very complex surgery and will require the most oppor tune situation. I would like for her to have maximal nutrition and we did discu ss this today. I will order labs to verify this. I have spoken with Dr Michael connor about this. We are trying to find common time to perform this surgery. Our next available common date would be into September. I have spoken with him and we are arranging moving patients and trying to find are more recent common date. Additionally, she has this large hernia on her left upper quadrant. This will r equire a repair. Not with mesh att this time, likely a biologic repair. This i s less than ideal, but with the amount of contamination expected in this surgery , I doubt a artificial repair would be good idea. She should be without smoking as well for an ideal surgery. This would mitigate many complications from this surgery. This will be difficult enough with all of her other risk factors. She should modify the ones she can at this time. She has mesh in place and this will no doubt cause significant issues with the surg marciano in terms of scarring and fistula risks. I will reach out to her care facility as soon as a date can be arranged. Tobacco Cessation Management & Counseling: Counseling points: Quitting tobacco improves overall health and cancer treatment outcomes. Counseling addressed problem-solving, skills training and using medic ation to meet goals toward quitting. The following plan was developed: Plan Based on our discussion, the patient has chosen to: Behavior: Cut down tobacco use Medication: No medications at this time Behavioral support: No support at this time Time spent counseling for tobacco cessation: >3 minutes up to 10 Follow-up: Provider will follow-up at next appointment and assess tolerability of any medic ations provided and effectiveness of counseling and make further recommendations as indicated. I spent 25 minutes with this patient and coordinating her care. documented in this encounter Procedure Notes * Bridgett Wolff - 09/12/2020 4:54 PM CDT PICC Line Insertion Procedure Note NAME:Carlos Alberto Torres 06 :1950 AGE: 70 y.o. ADMISSION DATE: 09/04/2020 DAYS ADMITTED: LOS: 8 days Procedure Details: Informed consent was obtained for the procedure. Risks of in fection, blood clot, and nerve or vessel damage were discussed. Indications: TPN, History of difficult venous access Procedure: Under sterile conditions the skin at the insertion site was prepped w ith chlorhexadineand covered with a sterile drape. Local anesthesia was applied to the skin and subcutaneous tissues. A #4 FR, Double, PICC was inserted in the Right Brachial vein per hospital protocol. Blood return: Yes Catheter trimmed, inserted to 37 cm, with 0 cm external. Catheter was flushed with 20 mL NS. Yoly ent did tolerate procedure well. Mid upper arm circumference is 27 cm. Verification:Placement confirmed with ECG., Patency verified by positive blood r eturn., Venous location confirmed by ultrasound., Educational material/teaching instruction given to patient and/or left at bedside. and ACJ/SVC per 3CG/daphney gillette. In the physical presence of M.Roman, RN, I have taken down these notes , Bridgett Wolff. 09/12/2020 Associated attestation - Fernanda Roman RN - 09/12/2020 4:58 PM CDT I have reviewed the documentation of Bridgett Wolff for the PICC line insertion procedure and verify that it is accurate. documented in this encounter Consult Notes * Kanwal Pruitt APRN-CNS - 09/18/2020 10:00 AM CDT Associated Order(s): CONSULT CUSTOMER SERVICE OFFICERROSALINA See my consult note. I appreciate being invited to participate in this patient's care. Call or page i f there are any concerns or questions. Kanwal Pruitt [facility] Office [id number] * Kanwal Pruitt APRN-CNS - 09/18/2020 7:02 AM CDT Associated Order(s): CONSULT CUSTOMER SERVICE OFFICER, CNS Inpatient Psychiatric Clinical Nurse Specialist- Initial Consult Pt. Name: Carlos Alberto Torres Room: 826/ LOS: 14 Reason for consult: Pt overwhelmed with multiple hospitalizations, spouse also hospitalized at this time and on vent d/t covid. Interventions that would be helpful: Her childhood friend is flying here from [facility] to visit her in the hospital. Patient is very faithful- she asked me t o pray with her. There is a pastoral care consult also. I told her I will retur n tomorrow. Encourage patient to use the [employer] Channel. This service is not able to enter orders. Primary team is responsible for enteri ng orders. Summary Carlos Alberto Torres is a 70 y.o. Female with large colovesical/vaginal fistula s/p multiple surgeris for complications from diverticulitis now s/p ex-lap, fist benjy excision, partial cystectomy, transverse end colostomy complicated by right internal iliac vein injury This pleasant woman is of course grieving the potential loss of Phil whom she had known for almost a year. He has become a part of her family. She has childr mark and 19 grandchildren. She had been for 4 yrs when she met him online. She said he was very good to her and to her family. He contracted co-vid after Father's Day - their son-in-law was positive and they had attended a gBox Game that Friday. She has many good friends through her zoroastrianism family. She reports poor appetite. On clear liquids today. Became nauseated when I was l eaving her room. Spoke with her nurse. MSE: Patient alert and Ox3. Speech fluid. Thoughts lucid and w/o evidence of psy choses. Memory grossly intact. Patient cooperative and with appropriate eye cont act. Mood calm with congruent affect. Insight, judgment, and impulse control suf ficient. I appreciate being invited to participate in this patient's care. Call or page i f there are any concerns or questions. Kanwal Pruitt PMNS- [facility] Office [phone] * Marti Vásquez APRN-[employer] - 09/13/2020 4:21 PM CDT Associated Order(s): CONSULT INTERVENTIONAL RADIOLOGY PHYSICIAN Interventional Radiology Consult Note with Pre-procedural History and Physical Admission Date: 09/04/2020 LOS: 9 days Principal Problem: Colovesical fistula Active Problems: Acute blood loss anemia J LUIS (acute kidney injury) (HCC) Malnutrition (HCC) Bacteremia due to methicillin resistant Staphylococcus epidermidis Candidal urinary tract infection Ileus (HCC) Hypokalemia CLABSI (central line-associated bloodstream infection) Acute pulmonary edema (HCC) Reason for consult: Abdominal drain placement Assessment: - Admitted for planned pelvic exenteration, ileal conduit formation and ventral hernia repair - 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 - Pt is not on a therapeutic blood thinner - Platelet Count Date Value Ref Range Status 09/13/2020 432 (H) 150 - 400 K/UL Final ; INR Date Value Ref Range Status 06/28/2020 1.0 0.8 - 1.2 Final Plan: - This case has been reviewed and added onto the [facility] schedule for 09/13/2020. - For sedation purposes, please keep NPO prior to procedure. May take PO medicat ions with sips of water. We appreciate being able to participate in this patient's care. Please page with any questions or concerns. Marti Vásquez APRN-[employer] Pgr [phone] IR Team Pager [phone] (After-hours and Weekends) Procedure: Abdominal drain placement IR Pre Procedure Notes: Consent w RN. Chief Complaint: Abdominal fluid collection Previous Anesthetic/Sedation History: Reviewed. Code Status: Full Code History of present illness: Carlos Alberto Torres is a 70 y.o. female patient with hx of large colovesical/va ginal fistula s/p multiple surgeries for complications from diverticulitis admit otoniel for planned pelvic exenteration, ileal conduit formation and ventral hernia repair. IR consulted for drain placement. See ROS below for current symptoms Review of Systems Constitutional: negative for fevers and chills Respiratory: negative for cough or dyspnea Gastrointestinal: positive for abdominal pain Medications Scheduled Meds:[MAR Hold] acetaminophen (TYLENOL) tablet 650 mg, 650 mg, Oral, Q 6H* [MAR Hold] buPROPion XL (WELLBUTRIN XL) tablet 150 mg, 150 mg, Oral, QDAY cefepime (MAXIPIME) 2 g in sodium chloride 0.9% (NS) 100 mL IVPB (MB+), 2 g, Int ravenous, Q12H* [MAR Hold] cetirizine (ZyrTEC) tablet 10 mg, 10 mg, Oral, QDAY [MAY Hold] COVID-19 vacc,mRNA (MODERNA) PF immunization 100 mcg, 100 mcg, Intram uscular, New Car Inspector [MAY Hold] enoxaparin (LOVENOX) syringe 40 mg, 40 mg, Subcutaneous, QDAY(21) fluconazole (DIFLUCAN) tablet 200 mg, 200 mg, Oral, QDAY gabapentin (NEURONTIN) capsule 300 mg, 300 mg, Oral, BID [MAR Hold] levothyroxine (SYNTHROID) tablet 50 mcg, 50 mcg, Oral, QDAY [MAY Hold] methocarbamoL (ROBAXIN) tablet 750 mg, 750 mg, Oral, TID metroNIDAZOLE (FLAGYL) 500 mg IVPB 100 mL, 500 mg, Intravenous, Q8H* midazolam (VERSED) injection 1 mg, 1 mg, Intravenous, ONCE [MAY Hold] nicotine (NICODERM CQ STEP 2) 14 mg/day patch 1 patch, 1 patch, Trans dermal, Q24H* [MAR Hold] oxybutynin XL (DITROPAN XL) tablet 15 mg, 15 mg, Oral, QDAY [MAY Hold] pantoprazole DR (PROTONIX) tablet 40 mg, 40 mg, Oral, QDAY [MAR Hold] scopolamine (TRANSDERM-SCOP) 1mg over 3 days patch 1 patch, 1 patch, Transdermal, Q72H* And [MAY Hold] Patch Documentation - Scopolamine base 1MG/72HR 1 patch, 1 patch, Tra nsdermal, BID [MAY Hold] polyethylene glycol 3350 (MIRALAX) packet 17 g, 1 packet, Oral, BID [MAR Hold] senna/docusate (SENOKOT-S) tablet 1 tablet, 1 tablet, Oral, BID [MAY Hold] sodium chloride PF 0.9% flush 10 mL, 10 mL, Flush, FLUSH TID vancomycin (FIRVANQ) oral solution 125 mg, 125 mg, Oral, BID vancomycin (VANCOCIN) 1,750 mg in sodium chloride 0.9% (NS) 285 mL IVPB, 1,750 m g, Intravenous, Q24H* Continuous Infusions: Adult Continuous Parenteral Nutrition (PN) PRN and Respiratory Meds:[MAY Hold] aluminum/magnesium hydroxide PRN, [MAY Hold] HYDROmorphone (DILAUDID) injection Q2H PRN, [MAY Hold] hyoscyamine Q4H PRN, [MAY Hold] lidocaine PF PRN, [MAY Hold] melatonin QHS PRN, [MAY Hold] nalOXone PRN, [MAY Hold] nicotine polacrilex Q1H PRN, [DISCONTINUED] ondansetron Q6H PRN OR [MAY Hold] ondansetron (ZOFRAN) IV Q6H PRN, [MAY Hold] oxyCODONE Q4H PRN, [ Hold] phenoL PRN, [May] prochlorperazine Q6H PRN, [May] simethicone Q6H PRN, vancomycin, pharmacy to manage Per Pharmacy Objective Vital Signs: Last Filed Vital Signs: 24 Elisabeth r Range BP: 98/51 (09/13 1618) Temp: 36.4 C (97.6 F) (09/13 1618) Pulse: 83 (09/13 1618) Respirations: 21 PER MINUTE (09/13 1618) SpO2: 97 % (09/13 1618) SpO2 Pulse: 82 (09/13 1618) BP: (75-111)/(36-71) Temp: [36.4 C (97.6 F)-37.7 C (99.9 F)] Pulse: [81-103] Respirations: [14 PER MINUTE-25 PER MINUTE] SpO2: [90 %-97 %] Intensity Pain Scale (Self Report): 4 (09/13/20 1224) Vitals: 09/04/20 0919 09/05/20 1011 09/11/20 1110 Weight: 64.9 kg (143 lb) 76.2 kg (167 lb 14.4 oz) 73.5 kg (162 lb) Intake/Output Summary: (Last 24 hours) Intake/Output Summary (Last 24 hours) at 09/13/2020 1621 Last data filed at 09/13/2020 1527 Gross per 24 hour Intake 40 ml Output 1600 ml Net -1560 ml Physical Exam General appearance: alert and no distress Neurologic: Grossly normal, at baseline Lungs: Nonlabored with normal effort Abdomen: soft, RLQ colostomy in place, midline incision with stapes, b/l PCN wit h clear yellow urine Airway: airway assessment performed Mallampati II (soft [...] procedures with patient NPO Status: Acceptable Status: Hysterectomy Lab/Radiology/Other Diagnostic Tests: Labs: Pertinent labs reviewed Radiology: Reviewed. * Argenis Ward RN - 09/13/2020 11:24 AM CDT Associated Order(s): CONSULT WOUND/OSTOMY TEAM NURSE Images from the original note were not included. Wound Ostomy Note NAME:Carlos Alberto Torres :1950 AGE: 70 y.o. ADMISSION DATE: 09/04/2020 DAYS ADMITTED: LOS: 9 days Reason for Consult/Visit: ostomy education and pressure injury Stage II or great er Assessment/Plan: Principal Problem: Colovesical fistula Active Problems: Acute blood loss anemia J LUIS (acute kidney injury) (HCC) Malnutrition (HCC) Bacteremia due to methicillin resistant Staphylococcus epidermidis Candidal urinary tract infection Ileus (HCC) Hypokalemia CLABSI (central line-associated bloodstream infection) Acute pulmonary edema (HCC) Wound and ostomy team continuing to follow for ongoing ostomy education and supp ort. New consult received today with concern for a pressure related injury to pa tient buttocks. Ostomy pouch clean, dry and intact with no signs of any leaking noted. Pouch was last changed 09/11. There have been no issues with pouching thus far. Bedside RN to ensure ongoing emptying and pouch change every 4-5 days. Stoma remains uncha nged from prior ostomy team assessments. OSTOMY CARE: Suggested Pouching Supplies:#[id number] 1.Change pouch with any sign of leaking. Do not reinforce leaking pouch wi th tape 2.Clean skin with water only - no soap or wipes 3.If skin is broken down surrounding stoma, sprinkle stoma powder and wipe away the excess 4.[place] no sting skin prep on powdered skin [...] such as pouch emptying and pouch changes. Patient was turned with the assistance of bedside RN. Patient has a DTI pressure injury on her left buttocks. Purple/black, non-blanchable and dry. Patient also has an unstageable pressure injury on her coccyx that extends to her right butt ocks. Wound base covered in yellow slough. This wound also has DTI characteristi cs around part of the wound. Expect both wounds to progress and declare themselv es more. Patient denies any pain in the location of these wounds. PLAN: - Apply A&D TID and PRN to coccyx wound- NO FOAM - Leave wound on left buttocks clean, dry and intact. - Avoid briefs if possible; use only one disposable pad underneath pt. - Implement q2 hr turning schedule using foam wedge for support. - HOB less than or equal to 30 degrees unless contraindicated (to prevent sheari ng at coccyx/sacrum) - foam offloading pad while in the chair - envision mattress - Place foam offloading boots to bilateral lower extremities; heel should "float " off of support built into boot. General photo: Wounds 09/12/20 0908 Pressure Injury Coccyx (Active) 09/12/20 0908 Coccyx Wound Type: Pressure Injury Pressure Injury Stages: Unstageable Pressure Injury Present On Inpatient Admission: N Wound/Pressure Injury Orientation: Wound Description (Comments): Wound Type:: Wound Image 09/13/20 1100 Agree With My Assessment? 09/12/20 1630 Wound Dressing Status Removed for assessment 09/13/20 1100 Wound Dressing and / or Treatment A & D Ointment- GRANT OFFICER 09/13/20 1100 Wound Drainage Amount None 09/13/20 1100 Wound Base Assessment Yellow;Slough 09/13/20 1100 Surrounding Skin Assessment Dry;Intact 09/13/20 1100 Wound Site Closure Open to Air 09/13/20 1100 Wound Status (Wound Team Only) Being Treated 09/13/20 1100 Wound Length (cm) 4 cm 09/13/20 1100 Wound Width (cm) 4 cm 09/13/20 1100 Wound Depth (cm) 0.2 cm 09/13/20 1100 Wound Surface Area (cm^2) 16 cm^2 09/13/20 1100 Wound Volume (cm^3) 3.2 cm^3 09/13/20 1100 Number of days: 1 Wounds 09/12/20 0908 Pressure Injury Left Buttocks (Active) 09/12/20 0908 Buttocks Wound Type: Pressure Injury Pressure Injury Stages: Deep Tissue Pressure Injury Pressure Injury Present On Inpatient Admission: N Wound/Pressure Injury Orientation: Left Wound Description (Comments): Wound Type:: Wound Image 09/13/20 1100 Agree With My Assessment? 09/12/20 1630 Wound Dressing Status Removed for assessment 09/13/20 1100 Wound Dressing and / or Treatment None- leave GRANT OFFICER 09/12/20 204 Wound Drainage Amount None 09/13/20 1100 Wound Base Assessment Black;Purple;Non-blanchable;Dry 09/13/20 1100 Surrounding Skin Assessment Dry;Intact 09/13/20 1100 Wound Site Closure None;Open to Air 09/13/20 1100 Wound Status (Wound Team Only) Being Treated 09/13/20 1100 Wound Length (cm) 4 cm 09/13/20 1100 Wound Width (cm) 2.8 cm 09/13/20 1100 Wound Depth (cm) 0 cm 09/13/20 1100 Wound Surface Area (cm^2) 11.2 cm^2 09/13/20 1100 Wound Volume (cm^3) 0 cm^3 09/13/20 1100 Number of days: 1 Colostomy 09/04/20 1419 Upper Right Quadrant (Active) 09/04/20 1419 Upper Right Quadrant Wound Image 09/11/20 1400 Agree With My Assessment? 09/13/20 0426 Stoma Assessment Dusky;Edema;Becenti;Pale;Dark Edges 09/13/20 1100 Drainage Description Brown 09/13/20 1100 Peristomal Skin Assessment Unable to Assess 09/13/20 1100 Dressing Status Intact;Dry;Clean 09/13/20 1100 Drain Output (ml) 0 ml 09/13/20 0839 JACINTO Wilson, RN, TCRN Wound/Ostomy Nursing Consult Service Available via [employer] or [facility] [employer] [phone] After hours please contact wound/engraver lettering "call out clerk" via Vo[employer] * Makenna Irving RD - 09/13/2020 9:16 AM CDT Associated Order(s): TPN CONSULT; NUTRITION SUPPORT SERVICE Nutrition Support Service (NSS) Progress Note Comment: Patient made NPO with plans for resumed TPN given persistent GI dysfunc tion. Double lumen PICC placed 09/12. RR this morning for hypotension & tachycardia. Current PN Formula: Non-standard, low-dextrose @ 75ml/hr to resume @ 20:30 (Held since 09/09 AM) Diet Order: NPO TF: n/a I/O: (incomplete) 500/1095ml PO: 480ml UOP: 1005ml HEMA: 65ml Colostomy: 25ml Meds: Scheduled Meds:acetaminophen (TYLENOL) tablet 650 mg, 650 mg, Oral, Q6H* buPROPion XL (WELLBUTRIN XL) tablet 150 mg, 150 mg, Oral, QDAY cefepime (MAXIPIME) 2 g in sodium chloride 0.9% (NS) 100 mL IVPB (MB+), 2 g, Int ravenous, Q12H* cetirizine (ZyrTEC) tablet 10 mg, 10 mg, Oral, QDAY COVID-19 vacc,mRNA (MODERNA) PF immunization 100 mcg, 100 mcg, Intramuscular, New Car Inspector enoxaparin (LOVENOX) syringe 40 mg, 40 mg, Subcutaneous, QDAY(21) fluconazole (DIFLUCAN) tablet 200 mg, 200 mg, Oral, QDAY gabapentin (NEURONTIN) capsule 300 mg, 300 mg, Oral, BID levothyroxine (SYNTHROID) tablet 50 mcg, 50 mcg, Oral, QDAY methocarbamoL (ROBAXIN) tablet 750 mg, 750 mg, Oral, TID metroNIDAZOLE (FLAGYL) 500 mg IVPB 100 mL, 500 mg, Intravenous, Q8H* nicotine (NICODERM CQ STEP 2) 14 mg/day patch 1 patch, 1 patch, Transdermal, Q24 H* oxybutynin XL (DITROPAN XL) tablet 15 mg, 15 mg, Oral, QDAY pantoprazole DR (PROTONIX) tablet 40 mg, 40 mg, Oral, QDAY scopolamine (TRANSDERM-SCOP) 1mg over 3 days patch 1 patch, 1 patch, Transdermal , Q72H* And Patch Documentation - Scopolamine base 1MG/72HR 1 patch, 1 patch, Transdermal, B ID polyethylene glycol 3350 (MIRALAX) packet 17 g, 1 packet, Oral, BID senna/docusate (SENOKOT-S) tablet 1 tablet, 1 tablet, Oral, BID sodium chloride PF 0.9% flush 10 mL, 10 mL, Flush, FLUSH TID vancomycin (FIRVANQ) oral solution 125 mg, 125 mg, Oral, BID vancomycin (VANCOCIN) 1,750 mg in sodium chloride 0.9% (NS) 285 mL IVPB, 1,750 m g, Intravenous, Q24H* Continuous Infusions: Adult Continuous Parenteral Nutrition (PN) PRN and Respiratory Meds:aluminum/magnesium hydroxide PRN, HYDROmorphone (DILAUD ID) injection Q2H PRN, hyoscyamine Q4H PRN, lidocaine PF PRN, melatonin QHS PRN, nalOXone PRN, nicotine polacrilex Q1H PRN, [DISCONTINUED] ondansetron Q6H PRN * *OR ondansetron (ZOFRAN) IV Q6H PRN, oxyCODONE Q4H PRN, phenoL PRN, prochlorpe razine Q6H PRN, simethicone Q6H PRN, vancomycin, pharmacy to manage Per Pharmacy Electrolyte Treatments: none given yesterday or so far today Pertinent Labs: Comprehensive Metabolic Profile Lab Results Component Value Date/Time NA 134 (L) 09/13/2020 02:58 AM K 4.2 09/13/2020 02:58 AM CL 100 09/13/2020 02:58 AM CO2 24 09/13/2020 02:58 AM GAP 10 09/13/2020 02:58 AM BUN 12 09/13/2020 02:58 AM CR 0.85 09/13/2020 02:58 AM GLU 86 09/13/2020 02:58 AM Lab Results Component Value Date/Time CA 8.0 (L) 09/13/2020 02:58 AM PO4 3.5 09/13/2020 02:58 AM ALBUMIN 2.3 (L) 09/12/2020 09:15 PM TOTPROT 5.8 (L) 09/12/2020 09:15 PM ALKPHOS 141 (H) 09/12/2020 09:15 PM AST 18 09/12/2020 09:15 PM ALT 10 09/12/2020 09:15 PM TOTBILI 0.9 09/12/2020 09:15 PM GFR >60 09/13/2020 02:58 AM GFRAA >60 09/13/2020 02:58 AM Lab Results Component Value Date MG 2.0 09/13/2020 Trimg/dl (09/05/20), 129mg/dl (09/08/20) Admit Weight (Kg): Weight: 64.9 kg (143 lb) (no source/suspect inaccurate); pt r eported chair weight at facility prior to transfer: 68.6kg (151 lb) Current Weight (Kg): Weight: 73.5 kg (162 lb) (09/11/20) Estimated PN Kcal Needs: 1445-1620kcal (25-28kcal/kg desired wt 57.8kg) Estimated Protein Needs: 86-104g (1.5-1.8g/kg desired wt) A/P: 70 yo F with hx including diverticulitis and complex GI and urologic surgic al hx, w recurrent colovesical and rectovaginal fistulas now s/p takedown of rec tovesical fistula, end transverse colostomy, R internal iliac vein injury and li santiago, primary bladder repair, left sided ureter stent placement(09/04/20). Ole aviles was started on PN support during spring admit here at & discharged to facility on 07/10 PN support providing 100% estimated needs + FLD/diet as tolerated. NSS consulted 09/04 PM to start/manage PN post-op while awaiting ostomy function & diet advancement/tolerance. RD visited patient late morning POD1 (09/05); reports ongoing efforts at improving pain management this morning & some associated nausea; minimal ostomy output thus far. Patient is allowed ice chips & sips of juice per report, but patient admits to struggling with even sips of water so far. Reports at facility, PN ran / still & until transfer to ; was providing 100g AA, 230g dextrose, 235ml intralipid with 1800ml over 24hrs per latest rx from [facility]. NSS customized new PN for 09/05/20 based on post- op needs, weight status, labs etc. Given recent PN provisions & current appropriate lytes, PN was restarted at goal macronutrients. RD reviewed PN plan & reviewed diet strategies/tips for once diet advances & in setting of new colostomy; provided additional copy of ostomy diet handout (noted ethnoarchaeology professor already provided their education) during 09/05/20 visit. Patient voiced understanding/appreciation. Chart/labs reviewed. PN was providing 1490kcal, 90g protein in-house 09/05-09/08 u ntil held 09/09/20 with bacteremia/line removal. Was stable to start on CLD then Regular diet since that hold, however intakes were minimal and GI symptoms were worsening. CT 09/12 showing partial SBO within hernia, mildly complex fluid colle ction along anterior abdominal wall, right rectus sheath hematoma, thus patient was made NPO & decision was made to resume PN support rather than pursue corpak/EN feeds. PN goals re-evaluated this morning; higher calorie goal with patient now NPO for unclear future timeline, and acutely higher metabolic needs with infection. Will maintain high protein content & supplemental vitamins/minerals- adding vit c & zinc to support healing/avoid further skin breakdown. Will set lytes based on serum trends & anticipated I/Os. Total volume is at ~30ml/kg desired wt and consistent with last week's PN. PN Order (to start at 20:30): Volume: 1800ml (75ml/hr) Macronutrients: 90g15%AA (goal), 150g dextrose (zmem=875n), 245ml intralipid (go al) Lytes/Additives: 183mEq Na (2/3NS equivalent), 60mEq K+, 10mEq calcium, 16mEq ma gnesium, 25mmol Phos, 2:1 cl:acetate, 10ml MV, 1ml trace element, 100mg suppleme ntal thiamine, 300mg supplemental ascorbic acid, 5mg supplemental zinc PN will provide 1360kcal (23kcal/kg desired wt; 84% goal), 90g protein (1.6g/kg desired wt). Makenna Irving RD, LD, [facility] Available on Voalte | Office: [phone] * Makenna Irving RD - 09/05/2020 11:38 AM CDT Associated Order(s): NUTRITION SUPPORT SERVICE Nutrition Support Service (NSS) Initial Consult Note Admit Date: 09/04/2020 Service / Attending: Surgery-Urology / Lorena Rodriguez MD;Michael,* Diagnosis: fistulas Diet Order: NPO except sips Current PN Formula: Non-standard @ 75ml/hr to start at 20:30 09/05/20 PN Line: double lumen PICC PMH: Medical History: Diagnosis Date Colovesical fistula [...] SURGERY 08/24/2014 Laparoscopy with redo colocolonic anastomosis ABDOMEN SURGERY SECTION x 2 HX ROSARIO AND BSO Meds: Scheduled Meds:acetaminophen (TYLENOL) tablet 650 mg, 650 mg, Oral, Q6H* buPROPion XL (WELLBUTRIN XL) tablet 150 mg, 150 mg, Oral, QDAY cefTRIAXone (ROCEPHIN) IVP 2 g, 2 g, Intravenous, Q24H* cetirizine (ZyrTEC) tablet 10 mg, 10 mg, Oral, QDAY fluconazole (DIFLUCAN) tablet 200 mg, 200 mg, Oral, QDAY furosemide (LASIX) tablet 40 mg, 40 mg, Oral, QDAY gabapentin (NEURONTIN) capsule 300 mg, 300 mg, Oral, BID levothyroxine (SYNTHROID) tablet 50 mcg, 50 mcg, Oral, QDAY methocarbamoL (ROBAXIN) tablet 750 mg, 750 mg, Oral, BID metroNIDAZOLE (FLAGYL) tablet 500 mg, 500 mg, Oral, BID nicotine (NICODERM CQ STEP 2) 14 mg/day patch 1 patch, 1 patch, Transdermal, Q24 H* oxybutynin XL (DITROPAN XL) tablet 15 mg, 15 mg, Oral, QDAY pantoprazole DR (PROTONIX) tablet 40 mg, 40 mg, Oral, QDAY scopolamine (TRANSDERM-SCOP) 1mg over 3 days patch 1 patch, 1 patch, Transdermal , Q72H* And Patch Documentation - Scopolamine base 1MG/72HR 1 patch, 1 patch, Transdermal, B ID polyethylene glycol 3350 (MIRALAX) packet 17 g, 1 packet, Oral, BID senna/docusate (SENOKOT-S) tablet 1 tablet, 1 tablet, Oral, BID vancomycin (FIRVANQ) oral solution 125 mg, 125 mg, Oral, BID Continuous Infusions: Adult Continuous Parenteral Nutrition (PN) Adult Continuous Parenteral Nutrition (PN) Stopped (09/04/20 1978) HYDROmorphone PF (DILAUDID) 10 mcg/mL, bupivacaine PF (MARCAINE) 0.1 % in so dium chloride 0.9% (NS) 50 mL epidural infusion syr lactated ringers infusion 20 mL/hr at 09/04/20 1039 sodium chloride 0.9 % infusion 120 mL/hr at 09/05/20 1010 PRN and Respiratory Meds:HYDROmorphone (DILAUDID) injection Q2H PRN, hyoscyamine Q4H PRN, lidocaine PF PRN, melatonin QHS PRN, nalOXone PRN, nicotine polacrilex Q1H PRN, ondansetron Q6H PRN OR ondansetron (ZOFRAN) IV Q6H PRN, oxyCODONE Q4H PRN, simethicone Q6H PRN Electrolyte Treatments: Pertinent Labs: Comprehensive Metabolic Profile Lab Results Component Value Date/Time NA 136 (L) 09/05/2020 03:30 AM K 4.7 09/05/2020 03:30 AM CL 104 09/05/2020 03:30 AM CO2 20 (L) 09/05/2020 03:30 AM GAP 12 09/05/2020 03:30 AM BUN 31 (H) 09/05/2020 03:30 AM CR 1.11 (H) 09/05/2020 03:30 AM GLU 144 (H) 09/05/2020 03:30 AM Lab Results Component Value Date/Time CA 7.6 (L) 09/05/2020 03:30 AM PO4 4.2 09/05/2020 03:30 AM ALBUMIN 3.0 (L) 09/05/2020 03:30 AM TOTPROT 5.3 (L) 09/05/2020 03:30 AM ALKPHOS 90 09/05/2020 03:30 AM AST 23 09/05/2020 03:30 AM ALT 10 09/05/2020 03:30 AM TOTBILI 2.5 (H) 09/05/2020 03:30 AM GFR 49 (L) 09/05/2020 03:30 AM GFRAA 59 (L) 09/05/2020 03:30 AM Lab Results Component Value Date MG 1.8 09/05/2020 Trimg/dl (09/05/20) Height (cm): Height: 152.4 cm (60") Admit Weight (kg): Weight: 64.9 kg (143 lb) (not accurate) Current Weight (kg): Weight: 76.2 kg (167 lb 14.4 oz) (bed scale 09/05) Desired Body Weight (kg): 57.8kg (for BMI 24.9) BMI (kg/m2): Body mass index is 32.79 kg/m. (however based on bed scale wt; ole aviles reported wt of 151# at facility prior to transfer & pre-op= 29.56 (overweight)) Estimated PN Kcal Needs: 1445-1560kcal (25-27kcal/kg desired wt 57.8kg) Estimated Protein Needs:86-104g (1.5-1.8g/kg desired wt) Physical Assessment: moderate bilateral muscle & subcutaneous fat wasting, no peripheral edema per RN, abdomen soft/tender/distended Pressure Injuries: none noted Malnutrition Assessment: hx of, presently not meeting criteria due to establishe d daily PN support CANDLE MOLDER Assessment / PN Indication: 70 yo F with hx including diverticulitis and complex GI and urologic surgical hx, w recurrent colovesical and rectovaginal fistulas now s/p takedown of rectovesical fistula, end transverse colostomy, R internal i liac vein injury and ligation, primary bladder repair, left sided ureter stent p lacement (09/04/20). Patient was started on PN support during spring admit here a [facility] & discharged to facility on 07/10 PN support providing 100% estimated needs + FLD/diet as tolerated. NSS consulted 09/04 PM to start/manage PN post-op while awaiting ostomy function & diet advancement/tolerance. RD visited patient late morning POD1 (09/05); reports ongoing efforts at improving pain management this morning & some associated nausea; minimal ostomy output thus far. Patient is allowed ice chips & sips of juice per report, but patient admits to struggling with even sips of water so far. Reports at facility, PN ran 24/ still & until transfer to ; awaiting reply from [facility] with latest Rx. NSS will customize new PN for tonight based on post-op needs, weight status, labs etc. Given recent PN provisions & current appropriate lytes, will start PN at goal macronutrients & adjust lytes & additives in subsequent bags prn. Patient denies any questions about PN therapy. RD also reviewed diet strategies/tips for once diet advances & in setting of new colostomy; provided additional copy of ostomy diet handout (n oted ethnoarchaeology professor already provided their education). Patient voiced understanding/a ppreciation. PN order (to start at 20:30): Volume: 1800ml (75ml/hr) Macronutrients: 90g AA (goal), 200g dextrose (goal), 225ml intralipids (goal) Lytes/Additives: 183mEq Na (2/3NS equivalent), 40mEq K+, 10mEq calcium, 16mEq ma gnesium, 20mmol Phos, 1:2 cl:acetate, 10ml multivitamin, 1ml trace elements PN will provide 1490kcal (26kcal/kg desired wt), 90g protein (1.6g/kg desired wt ). Recommendations: Diet advancement as tolerated/per Surg; continued PN support until adequate tole corine demonstrated to diet advancement Primary team to decrease/adjust IVFs once PN starts harman Irving RD, LD, CNSC Available on Voalte | Office: [phone] * Leela Mullen MD - 09/05/2020 9:05 AM CDT Associated Order(s): CONSULT INFECTIOUS DISEASES PHYSICIAN Infectious Diseases Initial Consult Today's Date: 09/05/2020 Admission Date: 09/04/2020 Reason for this consultation: complex patient has seen ID. Currently on rocephin , flagyl, fluconazole, and PO vanc for recurrent UTIs d/t colovesical fistula. H ad colovesical fistula takedown with partial cystectomy 09/04. Seeking recs on en d dates for abx or any need to change abx Type of Consultation: Co-Management w/Signed Orders Assessment: Carlos Alberto Torres is a 70 y.o. female with a medical history of diverticuliti s in 2011 leading to surgical history for and due to recurrent fistulization, mo st recently colovaginal and coloureteral/vesical. She has had recurrent UTI's du e to feculent urine and has been on and off several antibiotics over the past se veral years and especially since Dec, 2019. She has bilateral nephrostomy tubes in place following severe infection in June with VRE, Bacteroides, Brenda glab rata and Brenda parapsilosis on cultures. She received 14 days of daptomycin, m icafungin, metronidazole and a cephalosporin and was then transitioned to IV cef triaxone, metronidazole, fluconazole 200 mg daily until definitive surgery due t o high risk for severe infection. She had a first occurrence of C. Diff in June and has been on ppx PO vancomycin following treatment course. She was admitted 09/04 following colovesical fistula takedown, partial cystectomy, infected mesh e xcision and colectomy with colostomy creation. ID Problem List 1. 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 Colostomy creation 09/04 3. Salomon catheter placed 09/04 4. Recent polymicrobial pyelonephritis - C. Glabrata, C. Parapsilosis, VRE, Bact eroides, Eggerthella w/ Intra-abdominal abscess 5. Infected ventral hernia mesh with chronic draining wound s/p excision of infe cted portion (incorporated portion left in place) 09/04 6. B/L nephrostomy tubes placed in June, 7. Recent C. Diff colitis on PO Vanc BID 8. Poor PO intake on TPN 9. Antibiotic allergies: Bactrim- Hives Recommendations: 1. Continue ceftriaxone, metronidazole and fluconazole through 09/08 for 4 day co urse post source control per STOP-IT trial which would also sufficiently cover b acteria that would have colonized the bladder 2. Continue PO vancomycin two days following discontinuation of other Abx, I.e. through 09/10 3. Nephrostomy tube management per Urology Thank you for the consultation. We will continue to co-manage the patient with y ou Patient staffed with Dr. Marty Mullen MD Pager [phone] Please contact preferentially via Voalte History of Present Illness Carlos Alberto Torres is a 70 y.o. 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 12/26 underwent open sigmoidectomy, small bowel resection, repair of vaginal cuff in [place] at [facility] by Dr. Leal. Surgery c/b R ureteral injury s/p repair of the R ureter with ureteroureterostomy (same day), thereafter developed ureterocolonic fistula to the colorectal anastomosis. Apr - July 2012 s/p [address] Leal + Dr. Vargas, s/p laparotomy with lysis of adhesions, repair of small bowel, R ureteral reimplantation, complex ventral hernia repair which was then c/b component separ ation and mesh requiring a panniculectomy 07/2013. 09/2013 recurrent rectovaginal fistula, s/p diverting transverse colostomy; colostomy takedown 08/2014, c/b anas tomotic breakdown and requiring lap redo of colorectal anastomosis. 2015 onwards with persistent colovesicular fistula with chronic fecaluria, dysuria. Dr. Leal recommended [facility] evaluation as felt to have exhausted surgical expertis e of [place] at that time, she did not seek [facility] evaluation. 2019 worsening ramiro dder and lower abdominal spasms, and 12/2019 admitted [place] in [facility] with urosepsis requiring IV abx, transitioned to PO abx through February 2020 and was referred to colorectal surgery. Recurrent UTIs thereafter requiring short co urses PO abx, yet anytime off recurrent UTI. 05/22/[address] Martell, a t which time discussed need of repeat c-scope and complex joint colon-urologic s urgical repair, removal mesh. 06/[address] Rodriguez, at which time on amox/clav, completed shortly thereafter. Plan was for mid-June colonoscopy, however early June worsening back, lower abdominal pain. 06/20 returned to local [place] urgent care with dysuria, suprapubic pain, dysuria, fevers, myalgias, dc'd on ciproflo xacin, cx returned cipro-R E.coli switched to azithromycin (?). Symptoms worsene d with acute on chronic watery diarrhea intermittently bloody, with abdominal pa in and bloody discharge from chronic (since 2015) midline wound. 06/28 presented to [facility], at which time afebrile but tachypnic, tachycardic hypotensive (62/39) with leukocytosis (13.5-67%N) lactate normal (1.3) and CT a/ p with L-sided 5 cm extrarenal pelvic prominence c/w abscess, air in ureter/dens ity with dilated R ureter extending to distended bladder with large amt of air a nd fecal debris and stool in bladder with colovesicular fistula; she was started on vancomycin, meropenem. Attempt to place salomon unsuccessful due to thick feca l matter. She was transferred to MICU for urologic evaluation. C.diff returne d positive, started on PO vancomycin and meropenem transitioned to ceftriaxone + flagyl for E.coli/empiric anaerobic pyelo in setting known (prior) colo-uretera l fistula; urology evaluated and recommended nephrostomies given extensive dista l fistula and stool burden, after placement with improving b/l flank and abdomin al pain. Chronic diarrhea returned to normal. Multiple nephrostomy + urine cx re turned C. Glabrata, C. Parapsilosis, VRE, Bacteroides, Eggerthella C.parapsilo sis. Given significantly deconditioned with malnutrition (strict fluid diet since Dec) plan was for TPN and PT and [facility] to optimize nutrition and endurance prior to surgery. She has been doing well at the facility, denying fevers, chills, rash, issues wi th PICC line or erythema, drainage from nephrostomy tubes although endorsed occa sional pain. She has been passing her stool through her urethra primarily with u rine from nephrostomy tubes. She denied any issues with antimicrobials. She was admitted 09/04 following scheduled colovesical fistula takedown, partial cystectomy, infected mesh excision and colectomy with colostomy creation. Patient reports having significant abdominal tenderness following procedure. Antimicrobial Start date End date Fluconazole 07/14 Active Cefepime 07/11 07/14 Cefpodoxime 07/05 07/11 Flagyl 07/03 Active Daptomycin 07/05 07/14 Micafungin 07/03 07/14 PO Vancomycin 07/05 Active Ceftriaxone 07/03-07/05; 07/14 Active Meropenem 06/28 07/03 Linezolid 06/28 07/05 IV Vancomycin 06/28 06/28 Azithromycin Unknown, ~06/22 06/26 Ciprofloxacin 06/20 ~06/22 Estimated Creatinine Clearance: 40.8 mL/min (A) (based on SCr of 1.11 mg/dL (H)) . Past Medical History Medical History: Diagnosis Date [...] SURGERY 08/24/2014 Laparoscopy with redo colocolonic anastomosis ABDOMEN SURGERY SECTION x 2 HX ROSARIO AND BSO Social History Marital status/area of residence: Lives alone in [place], [place] but has been at a skilled facility since discharge in July. 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 No ETOH or recreational drug use. Social History Tobacco Use Smoking status: Former Smoker Packs/day: 1.00 Years: 55.00 Pack years: 55.00 Types: Cigarettes Quit date: 05/15/2020 Years since quittin.3 Smokeless tobacco: Never Used Substance Use Topics Alcohol use: Not Currently Family History One sister at age 29 from cervical cancer Other sister in 60's from breast cancer Allergies Allergies Allergen Reactions Bactrim [Sulfamethoxazole-Trimethoprim] HIVES and ITCHING Blue Dye EDEMA Review of Systems A comprehensive 14-point review of systems was negative with exception of the re view of systems as noted in the history of present illness. Medications Scheduled Meds:acetaminophen (TYLENOL) tablet 650 mg, 650 mg, Oral, Q6H* buPROPion XL (WELLBUTRIN XL) tablet 150 mg, 150 mg, Oral, QDAY cefTRIAXone (ROCEPHIN) IVP 2 g, 2 g, Intravenous, Q24H* cetirizine (ZyrTEC) tablet 10 mg, 10 mg, Oral, QDAY fluconazole (DIFLUCAN) tablet 200 mg, 200 mg, Oral, QDAY furosemide (LASIX) tablet 40 mg, 40 mg, Oral, QDAY levothyroxine (SYNTHROID) tablet 50 mcg, 50 mcg, Oral, QDAY methocarbamoL (ROBAXIN) tablet 750 mg, 750 mg, Oral, BID metroNIDAZOLE (FLAGYL) tablet 500 mg, 500 mg, Oral, BID nicotine (NICODERM CQ STEP 2) 14 mg/day patch 1 patch, 1 patch, Transdermal, Q24 H* oxybutynin XL (DITROPAN XL) tablet 15 mg, 15 mg, Oral, QDAY pantoprazole DR (PROTONIX) tablet 40 mg, 40 mg, Oral, QDAY polyethylene glycol 3350 (MIRALAX) packet 17 g, 1 packet, Oral, BID senna/docusate (SENOKOT-S) tablet 1 tablet, 1 tablet, Oral, BID vancomycin (FIRVANQ) oral solution 125 mg, 125 mg, Oral, BID Continuous Infusions: Adult Continuous Parenteral Nutrition (PN) Stopped (09/04/20 2216) HYDROmorphone PF (DILAUDID) 10 mcg/mL, bupivacaine PF (MARCAINE) 0.1 % in so dium chloride 0.9% (NS) 50 mL epidural infusion syr lactated ringers infusion 20 mL/hr at 09/04/20 1039 sodium chloride 0.9 % infusion 120 mL/hr at 09/05/20 0231 PRN and Respiratory Meds:HYDROmorphone (DILAUDID) injection Q2H PRN, hyoscyamine Q4H PRN, lidocaine PF PRN, melatonin QHS PRN, nalOXone PRN, nicotine polacrilex Q1H PRN, ondansetron Q6H PRN OR ondansetron (ZOFRAN) IV Q6H PRN, oxyCODONE Q4H PRN, simethicone Q6H PRN Physical Examination Vital Signs: Most Recent Vital Signs: 24 H our Range BP: 104/65 (09/06 819) Temp: 36.8 C (98.2 F) (09/06 819) Pulse: 104 (09/06 819) Respirations: 20 PER MINUTE (09/06 819) SpO2: 95 % (09/06 819) SpO2 Pulse: 91 (09/05 1911) Height: 152.4 cm (60") (09/04 918) BP: (80-142)/(52-97) ABP: (84-138)/(50-84) Temp: [35.7 C (96.3 F)-36.9 C (98.4 F)] Pulse: [68-117] Respirations: [11 PER MINUTE-35 PER MINUTE] SpO2: [93 %-100 %] General appearance: Alert, oriented x 3, in NAD HENT: NC/AT, dry mucous membranes oropharynx clear. No sinus tenderness. Eyes: P ERRL, EOM grossly intact, Conj nl Neck: Supple, no lymphadenopathy Lungs: CTAB, no wheezing, rhonchi or rales appreciated anteriorly Heart: Regular rhythm, reg rate, no murmur, rub or gallop Abdomen: RLQ colostomy in place- beefy red in appearance. Midline incision cover ed in clean dressing. LLQ HEMA drain. L sided abdominal hernia. Bowel sounds prese nt. Abdomen diffusely tender to palpation Ext: No clubbing, cyanosis or edema, not hot or swollen joints Skin: No rashes/lesions Psych: Appropriate mood and affect Lines: PIV Drains/tubes: B/L nephrostomy tubes with clear yellow urine, salomon catheter with bloody urine, LLQ HEMA drain with bloody drainage. RLQ colostomy with dark blood in colostomy bag Lab Review Hematology Recent Labs 09/04/20 1525 09/04/20201409/05/20 0330 WBC 18.5* 20.0* 17.5* HGB 11.2* 9.2* 8.7* HCT 31.9* 25.6* 25.2* PLTCT 239 208 209 Chemistry Recent Labs 09/04/20 1317 09/04/20 1525 09/05/20 0330 NA 136* 136* 136* K 4.2 4.3 4.7 CL -- 101 104 CO2 -- 23 20* BUN -- 30* 31* CR -- 1.03* 1.11* GFR -- 53* 49* GLU 161* 153* 144* CA -- 7.8* 7.6* PO4 -- -- 4.2 ALBUMIN -- -- 3.0* ALKPHOS -- -- 90 AST -- -- 23 ALT -- -- 10 TOTBILI -- -- 2.5* Microbiology, Radiology and other Diagnostics Review Microbiology data reviewed. Pertinent radiology images viewed. Associated attestation - Juany Ferguson MD - 09/05/2020 4:39 PM CDT ATTESTATION I personally performed the jurado portions of the E/M visit, discussed case with th e fellow and concur with fellow documentation of history, physical exam, assessm ent, and treatment plan unless otherwise noted. Staff name: Juany Ferguson MD Date: 09/05/2020 Patient without complications on outpatient abx leading up to surgery, just cont inued fecaluria and abdominal spasms at times but no diarrhea, fevers, chills, s weats. Now s/p resection of fistula and infected mesh, also w/ partial cystectom y and colostomy formation. Based on extent of surgery, expect source control to be obtained unless complications arise postop, and could likely just continue cu rrent regimen for 4d postop through 09/08, and PO vanc through 09/10. ID will continue to follow. Juany Ferguson MD Infectious Diseases Pager [phone] Please use Voalte to contact ID. documented in this encounter Miscellaneous Notes * Case Mgmt DC Plan - MaribelBenLuly - 09/21/2020 3:45 PM CDT Case Management Progress Note NAME:Carlos Alberto Torres :1950 AGE: 70 y.o. ADMISSION DATE: 09/04/2020 DAYS ADMITTED: LOS: 17 days Todays Date: 09/21/2020 Plan [facility] [place] [facility] [place] transported by sister. Interventions Support Info or Referral Discharge Planning Discharge Planning: Retirement Facility, Home Health JILLIAN communicated with Lisa at [facility] about ability to accept pt today . JILLIAN informed Lisa that SW received VM from [employer] with auth number. Lisa repor otoniel she still needed to confirm if [employer] would provide a carve out before facili ty admits pt. With assistance from leadership, JILLIAN received confirmation from [employer] that car ve out not necessary and pt can d/c to SNF. JILLIAN spoke with Lisa at [facility] again who confirmed facility can go ahead and accept pt today. JILLIAN received call from Sheldon with [facility] requesting pt info so Dawn can get TP N ready to deliver to SNF. JILLIAN faxed requested info. JILLIAN delivered transfer packet to pt's wall unit, faxed d/c orders to facility, and updated pt, bedside RN, and primary team. Disposition Expected Discharge Date 09/22/2020 8:00 PM Transportation Does the patient need discharge transport arranged?: Yes Does the patient use Medicaid Transportation?: No Discharge Disposition Selected Continued Care - Discharged on 09/21/2020 Admission date: 09/04/2020 - Dis charge disposition: Retirement Facility [facility] Destination Coordination complete Service Provider Selected Services Address Phone Fax Patient Preferred [facility] [address], [place] [address] [phone] Luly López LMSW Pager: [phone] * Case Mgmt DC Plan - Luly López - 09/20/2020 4:14 PM CDT Case Management Progress Note NAME:Carlos Alberto Torres :1950 AGE: 70 y.o. ADMISSION DATE: 09/04/2020 DAYS ADMITTED: LOS: 16 days Todays Date: 09/20/2020 Plan Pt anticipated to d/c [facility] pending insurance aut h. Interventions Support Info or Referral Discharge Planning Discharge Planning: Retirement Facility, Home Health JILLIAN called [facility] and provided update to Lisa that pt stable for d/c and neph tubes will be removed prior to d/c. Lisa will f/u with JILLIAN regarding in surance auth. SW received f/u call from Lisa informing SW that [employer] reported they have 24 -48 hours to provide auth and facility does not anticipate they will have an ans wer today. Facility is pursuing carve out with [employer] due to pt's expensive care. JILLIAN LM for Asia Kahn with [employer] at requesting return call re garding auth status. JILLIAN then sent email to [employer] representatives requesting same info. SW visited pt at bedside and provided update. 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 Pt's sister at bedside and asked if she is abl e to drive pt to SNF if pt discharges tomorrow. At that time, attending came in the room and confirmed that from a medical standpoint, team is fine with that pl an. SW agreed to confirm with SNF that they are agreeable to this plan. Disposition Expected Discharge Date 09/21/2020 8:00 PM Transportation Does the patient need discharge transport arranged?: Yes Does the patient use Medicaid Transportation?: No Discharge Disposition Selected Continued Care - Admitted Since 09/04/2020 [facility] Destination Coordination complete Service Provider Selected Services Address Phone Fax Patient Preferred [facility] [address], [place] [address] [phone] Luly López LMSW Pager: [phone] * Care Plan - Sharlene Nix RN - 09/20/2020 12:22 PM CDT Problem: Infection, Risk of, Central Venous Catheter-Associated Bloodstream Infe ction Goal: Absence of CVC Associated Bloodstream infection Outcome: Goal Ongoing Problem: Infection, Risk of, Urinary Catheter-Associated Urinary Tract Infection Goal: Absence of urinary catheter-associated infection Outcome: Goal Ongoing Problem: Discharge Planning Goal: Participation in plan of care Outcome: Goal Ongoing Goal: Knowledge regarding plan of care Outcome: Goal Ongoing Goal: Prepared for discharge Outcome: Goal Ongoing Problem: Pain Goal: Management of pain Outcome: Goal Ongoing Goal: Knowledge of pain management Outcome: Goal Ongoing Goal: Progress Toward Pain Management Goals Outcome: Goal Ongoing Problem: High Fall Risk Goal: High Fall Risk Outcome: Goal Ongoing Problem: Nutrition Deficit Goal: Adequate nutritional intake Outcome: Goal Ongoing Problem: Skin Integrity Goal: Skin integrity intact Outcome: Goal Ongoing Goal: Healing of skin (Wound & Incision) Outcome: Goal Ongoing Goal: Healing of skin (Pressure Injury) Outcome: Goal Ongoing Problem: Self-Care Deficit Goal: Maximize ADL functioning Outcome: Goal Ongoing Problem: Mobility/Activity Intolerance Goal: Maximize functional ADL's and mobility outcomes Outcome: Goal Ongoing Problem: Infection, Risk of Goal: Absence of infection Outcome: Goal Ongoing Goal: Knowledge of Infection Control Procedures Outcome: Goal Ongoing * Care Plan - Nancy Goodwin RD - 09/20/2020 10:43 AM CDT Nutrition Support Services Brief Note Problem: Nutrition Deficit Goal: Adequate nutritional intake Outcome: Goal Ongoing Flowsheets (Taken 09/20/2020 1043) Adequate nutritional intake: Promote oral fluid intake Administer total parenteral nutrition PN infused per orders overnight, Diet advanced back to Regular 09/18 - improving n ausea over the past couple days, tolerating regular diet w/out nausea/vomiting t his AM. Per previous RD, low meal intakes to be expected for some time going for sidhu, after nearly 10 months of liquids-only. Despite positive intake trends jalyn or to the holiday weekend, NSS/RD do not anticipate patient will be meeting >2/3 kcal/pro needs without PN or EN support prior to discharge. NSS will continue to provide nutrition/diet counseling for patient to optimize intakes/tolerance, however would continue to plan for nutrition support. Improving ostomy output, increased up to 1075ml yesterday. PO intake of 722ml. Spoke w/ patient today, i mproved PO intake yesterday though intakes still not meeting >50% kcal/protein needs, see below. Pt reports she is fearful to eat because of pain. Encouraged smaller more frequent meals and bland foods. Possible plan to d/c to SNF today vs tomorrow. Calorie Count Results: 09/16: 0 calories & 0 g of protein (No breakfast or dinner ordered; no lunch documented) 09/17: 0 calories & 0 g of protein (No meals ordered) 09/18: 234 calories & 2g protein (No breakfast of lunch ordered) 09/19: Consumed cereal, yogurt, milk for breakfast/lunch. Consumed some pizza and milk with sugar cookie. Chart/labs reviewed: K+, mag and phos levels all WNL though K+ remains at 4.5 de spite decrease in last nights bag, will again slightly decrease K+ in tonights P N bag. Phos trended up significantly again this AM despite decrease in last nigh t's bag, will decrease by additional 5mmol. PO intake slowly improving, will sli ghtly decrease dextrose lipids and protein and continue with goal lipids. Cl:CO2 stable. No other changes otherwise. Will continue to monitor and adjust TPN PRN. TPN to start at 20:30: Changes made in bold Non-standard PN: 75ml/hr - 1800ml total volume Macronutrients: AA 80gm, Dex 200 gm, Lipids 225 ml Lytes: Na 183 mEq, K 70 mEq, Ca 10 mEq, Mg 16 mEq, Phos 15 mmol, 1:1 Cl:Acetate Additives: Standard MV and trace elements, 5mg zinc, 300 mg vitamin C Provides: 1450kcals (25 kcals/kg; 100% estimated needs), 80 gm AA (1.4 g/kg, 93% estimated needs) Nancy Goodwin, MS, RD, LD, CNSC Available on Voalte (Preferred Communication Method) Pager: [phone] * Care Plan - Héctor Morris RN - 09/20/2020 1:04 AM CDT Problem: Infection, Risk of, Central Venous Catheter-Associated Bloodstream Infe ction Goal: Absence of CVC Associated Bloodstream infection Outcome: Goal Ongoing Flowsheets (Taken 09/18/2020 2310) Absence of CVC associated bloodstream infection: Assess for central line catheter infection (Monitor SIRS criteria) Manage central venous catheter Follow central line bundle components Problem: Infection, Risk of, Urinary Catheter-Associated Urinary Tract Infection Goal: Absence of urinary catheter-associated infection Outcome: Goal Ongoing Flowsheets (Taken 09/18/20200) Absence of urinary catheter-associated infections: Manage urinary catheter Assess for signs and sypmtoms of catheter-associated urinary tract infection Collect urinne specimens appropriately Problem: Discharge Planning Goal: Participation in plan of care Outcome: Goal Ongoing Flowsheets (Taken 09/18/20200) Participation in Plan of Care: Involve patient/caregiver in care planning decisi on making Goal: Knowledge regarding plan of care Outcome: Goal Ongoing Flowsheets (Taken 09/18/20202309) Knowledge regarding plan of care: Provide infection prevention education Provide procedural and treatment education Provide fall prevention education Provide plan of care education Provide medication management education Provide VTE signs and symptoms education Goal: Prepared for discharge Outcome: Goal Ongoing Flowsheets (Taken 09/18/20202309) Prepared for discharge: Complete ADL ability assessment Provide safe use medical equipment education Provide diet and oral health education Collaborate with multidisciplinary team for hospital discharge coordination Problem: Pain Goal: Management of pain Outcome: Goal Ongoing Flowsheets (Taken 09/18/20202309) Management of pain: Complete pain assessment scale according to age, condition and ability to under stand. In the patient who can fully report pain, assess pain characteristics. Manage pain. Assess opioid analgesia side-effects. Assess pain control barriers. Goal: Knowledge of pain management Outcome: Goal Ongoing Flowsheets (Taken 09/18/20202309) Knowledge of pain management: Provide pain scale education Provide pharmacological pain management education Provide pain management methods education Goal: Progress Toward Pain Management Goals Outcome: Goal Ongoing Flowsheets (Taken 09/18/20200) Progress toward pain management goals: Progress toward pain management goals Assess progress toward pain management goals Problem: High Fall Risk Goal: High Fall Risk Outcome: Goal Ongoing Flowsheets (Taken 09/18/20202309) High Fall Risk: All patients will receive: High fall risk sign, yellow wristband, yellow socks, gait belt, and shower shoes Engage bed alarm - middle setting Engage chair alarm Stay with the patient while toileting/showering PT/OT consult for fall prevention assessment if scoring in Unsteady Gait or Vis ual or Auditory impairment Move patient near RN station if confused (if possible) Remove excess equipment/supplies Use shower shoes Educate patient to use call-light if tethered Maximize bed functionality (optimize bed height, firm/flat surface) Use safe patient handling equipment as appropriate Assess need for bedside commode with drop arm to be available in room Assess need for: quick release belt, PSM (video monitoring), assist x2 using cl inical staff/equipment Problem: Nutrition Deficit Goal: Adequate nutritional intake Outcome: Goal Ongoing Flowsheets (Taken 09/20/2020 0102) Adequate nutritional intake: Administer total parenteral nutrition Knowledge of nutritional diet Promote oral fluid intake Assess nutritional status Assess dietary preferences Problem: Skin Integrity Goal: Skin integrity intact Outcome: Goal Ongoing Flowsheets (Taken 09/18/20202309) Skin integrity intact: Assess nutrition Promote nutrition Assure position change Monitor skin integrity Reduce skin shear, friction and tissue load Provide skin care interventions Provide incontinence management interventions Provide skin self-assessment education Consider consult for skin integrity Goal: Healing of skin (Wound & Incision) Outcome: Goal Ongoing Flowsheets (Taken 09/18/20202309) Healing of wound (wounds and Incisions): Assess for signs and symptoms of wound infection Assess wound site healing Implement wound/incision care as ordered Provide wound/incision care as ordered Goal: Healing of skin (Pressure Injury) Outcome: Goal Ongoing Flowsheets (Taken 09/18/20202309) Healing of skin (Pressure Injury): Assess for signs and symptoms of pressure injury infection Use the National Pressure Injury Advisory Panel Staging System for grading pres sure injuries Implement pressure injury care as ordered Implement pressure relieving device/specialty mattress Assess pressure injury Promote ambulation Provide pressure injury care education as ordered Problem: Self-Care Deficit Goal: Maximize ADL functioning Outcome: Goal Ongoing Problem: Mobility/Activity Intolerance Goal: Maximize functional ADL's and mobility outcomes Outcome: Goal Ongoing Problem: Infection, Risk of Goal: Absence of infection Outcome: Goal Ongoing Flowsheets (Taken 09/18/20200) Absence of infection: Assess for infection (Monitor SIRS Criteria) Monitor for signs and symptoms of infection Administer pharmacological therapies as ordered Implement prevention measures as indicated Goal: Knowledge of Infection Control Procedures Outcome: Goal Ongoing Flowsheets (Taken 09/18/20200) Knowledge of Infection Control procedures: Provide Isolation Precautions Educati on * Case Mgmt DC Plan - Luly López - 09/19/2020 2:44 PM CDT Case Management Progress Note NAME:Carlos Alberto Torres :1950 AGE: 70 y.o. ADMISSION DATE: 09/04/2020 DAYS ADMITTED: LOS: 15 days Todays Date: 09/19/2020 Plan Pt anticipated to d/c to [facility] pending medical stability and insura nce auth. Interventions Support Info or Referral Discharge Planning Discharge Planning: Retirement Facility, Home Health JILLIAN received update in [facility] that pt will d/c on IV abx, including Da pto. JILLIAN informed primary team that SNF likely won't be able to accept pt on Dapt o due to cost of the medication. Primary team will f/u with ID to see if alterna tive abx plan available. JILLIAN spoke with Lisa at [facility] who confirmed it would be much easier f or facility to accept pt on a less expensive abx. Lisa will f/u with administra krysten about ability to accept on Dapto and JILLIAN will f/u with primary team about edda nge in abx. JILLIAN and Lisa spoke again later in day. JILLIAN updated Lisa that ID agreeable to changing Dapto to Linezolid. Lsia confirmed that facility able to accept pt on that IV abx plan. [facility] will be submitting for insurance auth this afte rnoon. Medication Needs Disposition Expected Discharge Date 09/20/2020 2:00 PM Transportation Does the patient need discharge transport arranged?: Yes Does the patient use Medicaid Transportation?: No Next Level of Care (Acute Psych discharges only) Discharge Disposition Selected Continued Care - Admitted Since 09/04/2020 [facility] Destination Coordination complete Service Provider Selected Services Address Phone Fax Patient Preferred [facility] [address] [place] [address] [phone] Luly López LMSW Pager: [phone] * Care Plan - Nancy Goodwin RD - 09/19/2020 1:22 PM CDT Nutrition Support Services Brief Note Problem: Nutrition Deficit Goal: Adequate nutritional intake Outcome: Goal Ongoing Flowsheets (Taken 09/19/2020 1322) Adequate nutritional intake: Administer total parenteral nutrition Assess nutritional status Promote oral fluid intake Patient resumed on regular diet late AM 09/14. PN infused per orders over the week end. Pt with minimal ostomy output and nausea/vomiting 09/16 evening, diet downgra ded to CLD, thereafter ostomy output started to improve. Diet advanced back to R egular 09/18 - yesterday patient with some mild nausea, no emesis, tolerating H2O, though refuses to consume protein shakes. Per previous RD, low meal intakes to be expected for some time going forward, after nearly 10 months of liquids-only. Despite positive intake trends prior to the holiday weekend, NSS/RD do not anti cipate patient will be meeting >2/3 kcal/pro needs without PN or EN support prior to discharge. Minimal results from calorie count due to intermittent nausea/vomiting over the weekend. NSS will continue to provide nutrition/diet counseling for patient to optimize intakes/tolerance, however would continue to plan for nutrition support. Difficulty obtaining labs today due to contaminated lab draws x 2. Spoke w/ nursing. Calorie Count Results: 09/16: 0 calories & 0 g of protein (No breakfast or dinner ordered; no lunch documented) 09/17: 0 calories & 0 g of protein (No meals ordered) 09/18: 234 calories & 2g protein (No breakfast of lunch ordered) Chart/labs reviewed: Slight decrease in serum Na this AM, though will continue w ith same total volume/NS equivalence & continue to monitor. K+, mag and phos levels all WNL though K+ slightly trending up, will slightly decrease K+ in tonights PN bag. Phos trended up significantly yesterday, back down to 3.7 this AM - will slightly decrease down to 20 mmol in this evenings bag. Pt at goal macronutrients, will remove thiamine. Cl:CO2 stable. No other changes otherwise. Will continue to monitor and adjust TPN PRN. TPN to start at 20:30: Changes made in bold Non-standard PN: 75ml/hr - 1800ml total volume Macronutrients: AA 90gm, Dex 230 gm, Lipids 245 ml Lytes: Na 183 mEq, K 80 mEq, Ca 10 mEq, Mg 16 mEq, Phos 20 mmol, 1:1 Cl:Acetate Additives: Standard MV and trace elements, , 5mg zinc, 300 mg vitamin C Provides: 1632 kcals (28 kcals/kg; 100% estimated needs), 90 gm AA (100% estimat ed needs) Nancy Goodwin, , RD, LD, CNSC Available on Vo[employer]te (Preferred Communication Method) Pager: [phone] * Care Plan - Héctor Morris RN - 09/18/2020 11:16 PM CDT Problem: Infection, Risk of, Central Venous Catheter-Associated Bloodstream Infe ction Goal: Absence of CVC Associated Bloodstream infection Outcome: Goal Ongoing Flowsheets (Taken 09/18/20202309) Absence of CVC associated bloodstream infection: Assess for central line catheter infection (Monitor SIRS criteria) Manage central venous catheter Follow central line bundle components Problem: Infection, Risk of, Urinary Catheter-Associated Urinary Tract Infection Goal: Absence of urinary catheter-associated infection Outcome: Goal Ongoing Flowsheets (Taken 09/18/20200) Absence of urinary catheter-associated infections: Manage urinary catheter Assess for signs and sypmtoms of catheter-associated urinary tract infection Collect urinne specimens appropriately Problem: Discharge Planning Goal: Participation in plan of care Outcome: Goal Ongoing Flowsheets (Taken 09/18/20200) Participation in Plan of Care: Involve patient/caregiver in care planning decisi on making Goal: Knowledge regarding plan of care Outcome: Goal Ongoing Flowsheets (Taken 09/18/20200) Knowledge regarding plan of care: Provide infection prevention education Provide procedural and treatment education Provide fall prevention education Provide plan of care education Provide medication management education Provide VTE signs and symptoms education Goal: Prepared for discharge Outcome: Goal Ongoing Flowsheets (Taken 09/18/20200) Prepared for discharge: Complete ADL ability assessment Provide safe use medical equipment education Provide diet and oral health education Collaborate with multidisciplinary team for hospital discharge coordination Problem: Pain Goal: Management of pain Outcome: Goal Ongoing Flowsheets (Taken 09/18/20200) Management of pain: Complete pain assessment scale according to age, condition and ability to under stand. In the patient who can fully report pain, assess pain characteristics. Manage pain. Assess opioid analgesia side-effects. Assess pain control barriers. Goal: Knowledge of pain management Outcome: Goal Ongoing Flowsheets (Taken 09/18/20202309) Knowledge of pain management: Provide pain scale education Provide pharmacological pain management education Provide pain management methods education Goal: Progress Toward Pain Management Goals Outcome: Goal Ongoing Flowsheets (Taken 09/18/20202309) Progress toward pain management goals: Progress toward pain management goals Assess progress toward pain management goals Problem: High Fall Risk Goal: High Fall Risk Outcome: Goal Ongoing Flowsheets (Taken 09/18/20202309) High Fall Risk: All patients will receive: High fall risk sign, yellow wristband, yellow socks, gait belt, and shower shoes Engage bed alarm - middle setting Engage chair alarm Stay with the patient while toileting/showering PT/OT consult for fall prevention assessment if scoring in Unsteady Gait or Vis ual or Auditory impairment Move patient near RN station if confused (if possible) Remove excess equipment/supplies Use shower shoes Educate patient to use call-light if tethered Maximize bed functionality (optimize bed height, firm/flat surface) Use safe patient handling equipment as appropriate Assess need for bedside commode with drop arm to be available in room Assess need for: quick release belt, PSM (video monitoring), assist x2 using cl inical staff/equipment Problem: Nutrition Deficit Goal: Adequate nutritional intake Outcome: Goal Ongoing Flowsheets (Taken 09/18/20202309) Adequate nutritional intake: Assess dietary preferences Promote oral fluid intake Assess nutritional status Administer total parenteral nutrition Knowledge of nutritional diet Consider consult for sports therapist Problem: Skin Integrity Goal: Skin integrity intact Outcome: Goal Ongoing Flowsheets (Taken 09/18/20202309) Skin integrity intact: Assess nutrition Promote nutrition Assure position change Monitor skin integrity Reduce skin shear, friction and tissue load Provide skin care interventions Provide incontinence management interventions Provide skin self-assessment education Consider consult for skin integrity Goal: Healing of skin (Wound & Incision) Outcome: Goal Ongoing Flowsheets (Taken 09/18/20202309) Healing of wound (wounds and Incisions): Assess for signs and symptoms of wound infection Assess wound site healing Implement wound/incision care as ordered Provide wound/incision care as ordered Goal: Healing of skin (Pressure Injury) Outcome: Goal Ongoing Flowsheets (Taken 09/18/20200) Healing of skin (Pressure Injury): Assess for signs and symptoms of pressure injury infection Use the National Pressure Injury Advisory Panel Staging System for grading pres sure injuries Implement pressure injury care as ordered Implement pressure relieving device/specialty mattress Assess pressure injury Promote ambulation Provide pressure injury care education as ordered Problem: Self-Care Deficit Goal: Maximize ADL functioning Outcome: Goal Ongoing Problem: Mobility/Activity Intolerance Goal: Maximize functional ADL's and mobility outcomes Outcome: Goal Ongoing Flowsheets (Taken 09/18/2020 2310) Maximize functional ADLs and mobility outcomes: Administer oxygen to maintain SpO2 at approprate levels Maintain body position Consider post-operative precautions Physical thrapy evaluation and treatment Consider consult for mobility/activity intolerance Manage environmental safety Manage energy conservation for mobility/activity intolerance Occupational therapy evaulation and treatment Problem: Infection, Risk of Goal: Absence of infection Outcome: Goal Ongoing Flowsheets (Taken 09/18/20202309) Absence of infection: Assess for infection (Monitor SIRS Criteria) Monitor for signs and symptoms of infection Administer pharmacological therapies as ordered Implement prevention measures as indicated Goal: Knowledge of Infection Control Procedures Outcome: Goal Ongoing Flowsheets (Taken 09/18/20202309) Knowledge of Infection Control procedures: Provide Isolation Precautions Educati on * Care Plan - Citlali Giordano RN - 09/17/2020 4:33 PM CDT Problem: Infection, Risk of, Central Venous Catheter-Associated Bloodstream Infe ction Goal: Absence of CVC Associated Bloodstream infection Outcome: Goal Ongoing Flowsheets (Taken 09/06/2020526 by Kelly Gaytan, RN) Absence of CVC associated bloodstream infection: Assess for central line catheter infection (Monitor SIRS criteria) Manage central venous catheter Follow central line bundle components Problem: Infection, Risk of, Urinary Catheter-Associated Urinary Tract Infection Goal: Absence of urinary catheter-associated infection Outcome: Goal Ongoing Flowsheets (Taken 09/06/2020526 by Kelly Gaytan, RN) Absence of urinary catheter-associated infections: Manage urinary catheter Assess for signs and sypmtoms of catheter-associated urinary tract infection Collect urinne specimens appropriately Problem: Discharge Planning Goal: Participation in plan of care Outcome: Goal Ongoing Flowsheets (Taken 09/06/2020526 by Kelly Gaytan, RN) Participation in Plan of Care: Involve patient/caregiver in care planning decisi on making Goal: Knowledge regarding plan of care Outcome: Goal Ongoing Flowsheets (Taken 09/06/2020526 by Kelly Gaytan, RN) Knowledge regarding plan of care: Provide infection prevention education Provide VTE signs and symptoms education Provide plan of care education Provide fall prevention education Provide medication management education Goal: Prepared for discharge Outcome: Goal Ongoing Flowsheets (Taken 09/06/2020526 by Kelly Gaytan, RN) Prepared for discharge: Complete ADL ability assessment Collaborate with multidisciplinary team for hospital discharge coordination Provide safe use medical equipment education Provide diet and oral health education Problem: Pain Goal: Management of pain Outcome: Goal Ongoing Flowsheets (Taken 09/06/2020526 by Kelly Gaytan, RN) Management of pain: Complete pain assessment scale according to age, condition and ability to under stand. In the patient who can fully report pain, assess pain characteristics. Manage pain. Assess opioid analgesia side-effects. Goal: Knowledge of pain management Outcome: Goal Ongoing Flowsheets (Taken 09/06/2020526 by Kelly Gaytan, RN) Knowledge of pain management: Provide pain scale education Provide pharmacological pain management education Provide pain management methods education Goal: Progress Toward Pain Management Goals Outcome: Goal Ongoing Flowsheets (Taken 09/06/2020526 by Kelly Gaytan, RN) Progress toward pain management goals: Progress toward pain management goals Assess progress toward pain management goals Problem: High Fall Risk Goal: High Fall Risk Outcome: Goal Ongoing Flowsheets (Taken 09/06/2020526 by Kelly Gaytan, RN) High Fall Risk: All patients will receive: High fall risk sign, yellow wristband, yellow socks, gait belt, and shower shoes Engage bed alarm - middle setting Engage chair alarm Stay with the patient while toileting/showering PT/OT consult for fall prevention assessment if scoring in Unsteady Gait or Vis ual or Auditory impairment Move patient near RN station if confused (if possible) Remove excess equipment/supplies Educate patient to use call-light if tethered Use shower shoes Maximize bed functionality (optimize bed height, firm/flat surface) Use safe patient handling equipment as appropriate Assess need for bedside commode with drop arm to be available in room Assess need for: quick release belt, PSM (video monitoring), assist x2 using cl inical staff/equipment Problem: Nutrition Deficit Goal: Adequate nutritional intake Outcome: Goal Ongoing Flowsheets (Taken 09/15/[address]) Adequate nutritional intake: Promote oral fluid intake Administer total parenteral nutrition Problem: Skin Integrity Goal: Skin integrity intact Outcome: Goal Ongoing Flowsheets (Taken 09/17/2020 1632) Skin integrity intact: Assess nutrition Promote nutrition Assure position change Monitor skin integrity Reduce skin shear, friction and tissue load Provide skin care interventions Provide incontinence management interventions Provide skin self-assessment education Consider consult for skin integrity Goal: Healing of skin (Wound & Incision) Outcome: Goal Ongoing Flowsheets (Taken 09/17/2020 1632) Healing of wound (wounds and Incisions): Assess for signs and symptoms of wound infection Assess wound site healing Implement wound/incision care as ordered Provide wound/incision care as ordered Goal: Healing of skin (Pressure Injury) Outcome: Goal Ongoing Flowsheets (Taken 09/17/2020 1632) Healing of skin (Pressure Injury): Assess for signs and symptoms of pressure injury infection Use the National Pressure Injury Advisory Panel Staging System for grading pres sure injuries Assess pressure injury Implement pressure injury care as ordered Implement pressure relieving device/specialty mattress Promote ambulation Provide pressure injury care education as ordered Problem: Self-Care Deficit Goal: Maximize ADL functioning Outcome: Goal Ongoing Problem: Mobility/Activity Intolerance Goal: Maximize functional ADL's and mobility outcomes Outcome: Goal Ongoing Flowsheets (Taken 09/17/2020 1632) Maximize functional ADLs and mobility outcomes: Manage environmental safety Manage energy conservation for mobility/activity intolerance Occupational therapy evaulation and treatment Maintain body position Consider consult for mobility/activity intolerance Physical thrapy evaluation and treatment Consider post-operative precautions Problem: Infection, Risk of Goal: Absence of infection Outcome: Goal Ongoing Flowsheets (Taken 09/17/2020 1632) Absence of infection: Assess for infection (Monitor SIRS Criteria) Monitor for signs and symptoms of infection Administer pharmacological therapies as ordered Implement prevention measures as indicated Goal: Knowledge of Infection Control Procedures Outcome: Goal Ongoing Flowsheets (Taken 09/17/2020 1632) Knowledge of Infection Control procedures: Provide Isolation Precautions Educati on * Case Mgmt DC Plan - Luly López - 09/15/2020 4:00 PM CDT Case Management Progress Note NAME:Carlos Alberto Torres :1950 AGE: 70 y.o. ADMISSION DATE: 09/04/2020 DAYS ADMITTED: LOS: 11 days Todays Date: 09/15/2020 Plan Anticipate pt will d/c to [facility] pending medical stability and insur ance auth. Interventions Support Info or Referral Discharge Planning Discharge Planning: Retirement Facility, Home Health called [facility] and provided update that pt may be stable to d/c Fri or Fri next week. Lisa with [facility] informed that facility can re-submit f or auth on Friday morning. will send updates to facility on Friday and conf irm with team and facility if pt stable for d/c. Disposition Expected Discharge Date 09/19/2020 2:00 PM Transportation Does the patient need discharge transport arranged?: Yes Does the patient use Medicaid Transportation?: No Next Level of Care (Acute Psych discharges only) Discharge Disposition Selected Continued Care - Admitted Since 09/04/2020 [facility] Destination Coordination complete Service Provider Selected Services Address Phone Fax Patient Preferred [facility] [address], [place] [address] [phone] Luly López LMSW Pager: [phone] * Care Plan - Makenna Irving RD - 09/15/2020 11:16 AM CDT Problem: Nutrition Deficit Goal: Adequate nutritional intake 09/15/[address] Outcome: Goal Ongoing Flowsheets (Taken 09/15/2020 1116) Adequate nutritional intake: Promote oral intake Administer total parenteral nutrition Brief Nutrition Support Service note: Patient resumed on regular diet late AM yesterday. So far, nausea managed & 150ml ostomy output documented. Low meal intakes to be expected for some time g oing forward, after nearly 10 months of liquids-only. Despite positive intake tr ends (has had some melon and 1/2 a pancake for breakfast), NSS/RD do not anticip ate patient will be meeting >2/3 kcal/pro needs without PN or EN support prior to discharge. Have & will continue to provide nutrition/diet counseling for patient to optimize intakes/tolerance, however would continue to plan for nutrition support. Labs/meds, I/Os reviewed. Current PN bag providing 1496kcal, 90g protein (92% goal) after being resumed 09/13 (was on 4 day line holiday). For tonight's bag, will increase dextrose by 40g to goal, increase K+ by 10mEq, and decrease cl:acetate by 1 step. Will keep all micronutrient supplements in PN for now to avoid possibly exacerbating nausea with PO route change. PN changes (to start at 20:30): Increased dextrose from 190 to 230g (goal) Increased K+ from 80 to 90mEq Decreased cl:acetate from 2:1 to 1:1 PN to provide 1632kcal (28kcal/kg desired wt, 100% goal), 90g protein (100% goal ). The primary team is responsible for any PN changes on weekends/holidays. No act ion needs to be taken if no changes are desired. NSS is available on [employer] or by pager [phone] for assistance[address] M[address], LD, CNSC Available on [employer] | Office: [phone] * Procedures (Immed Post or Bedside) - Dion Dorsey DO - 09/13/2020 5:23 PM CDT Immediate Post Procedure Note Date: 09/13/2020 Attending Physician: Tang Performing Provider: Dion Dorsey DO Consent: Consent obtained from patient. Time out performed: Consent obtained, correct patient verified, correct procedur e verified, correct site verified, patient marked as necessary. Pre/Post Procedure Diagnosis: Abdominal Fluid Collection Indications: Same Procedure(s): CT guided ventral abdominal drain placement Findings: Successful drain placement and aspiration for diagnostic testing Estimated Blood Loss: None/Negligible Specimen(s) Removed/Disposition: Yes, sent to pathology Complications: None Patient Tolerated Procedure: Well Post-Procedure Condition: stable Dion Dorsey DO * Case Mgmt DC Plan - Luly López - 09/13/2020 3:00 PM CDT Case Management Progress Note NAME:Carlos Alberto Torres :1950 AGE: 70 y.o. ADMISSION DATE: 09/04/2020 DAYS ADMITTED: LOS: 9 days Todays Date: 09/13/2020 Plan Pt anticipated [facility] [place] [facility] when medically stable . Interventions Support Info or Referral Discharge Planning Discharge Planning: Retirement Facility, Home Health SW returned missed call from [facility] with [facility] at [phone]. SW pro vided update that pt will not be stable for d/c until next week. SW will continu e to fax clinical updates to facility and [facility] is agreeable to pursuing [facility] auth next week. Financial Legal Other Disposition Expected Discharge Date 09/19/2020 2:00 PM Transportation Does the patient need discharge transport arranged?: Yes Does the patient use Medicaid Transportation?: No Discharge Disposition Selected Continued Care - Admitted Since 09/04/2020 [facility] Destination Coordination complete Service Provider Selected Services Address Phone Fax Patient Preferred [facility] [address] [place] [phone] Luly López LMSW Pager: [phone] * Response Teams - Harriet Diez RN - 09/13/2020 2:17 PM CDT A rapid follow up was done on this patient. Pt resting comfortably in bed, stati ng she is sleepy. Pt oriented x4. BP 100/40, HR 90s. Discussed with RN who has n o acute concerns. Will recheck BP shortly and readdress with team if needed. Res ponses teams will be available if needed. * Response Teams - Harriet Diez RN - 09/13/2020 10:09 AM CDT A rapid follow up was done on this patient. Patient resting comfortably in bed a nd states she feels much better. Blood pressure and HR stable. Discussed pt with RN who had no concerns. Response teams will remain available if needed. * Response Teams - Rachel Carvalho MD - 09/13/2020 8:23 AM CDT Called by RACECAR DRIVER to evaluate patient for hypotension. 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 RACECAR DRIVER overnight for hypotension, not NICOM responsive, self resolved with MAP goal >60. Reportedly with SVT HR 160s this morning and subsequent hypotension, unable to capture on EKG. Patient received 500cc with NICOM 16.2% and improvement in BP with MAP 70-80. On arrival patient is alert and oriented, mentating at baseline though reports s he is fatigued. No lightheadedness, chest pain, dyspnea. Does report abdominal p ain and LLE/groin pain which has recently improved. Breath sounds are diminished bilaterally and heart is regular without murmurs. Labs notable for leukocytosis 21K, lactic acid 1.3, troponin reportedly normal (do not see resulted), chemist inorganic ry at baseline. Given normal mentation, normal lactic acid/chemistry and improve d MAPs, recommendations to broaden antibiotic coverage (ceftriaxone, metronidazo le, fluconazole as outlined by ID previously) and monitor on telemetry. CXR orde red given increased O2 requirements; educated on IS use. RACECAR DRIVER to f/u in 2 hours p er protocol. Discussed with primary resident at bedside. Rachel Carvalho MD, PGY4 Pulmonary & Critical Care Fellow Pager [phone] | On Voalte * Response Teams - Yung Kelley RN - 09/13/2020 8:14 AM CDT Rapid Response Team Progress Note Date: 09/13/2020 Time: 8:14 AM Patient: Carlos Alberto Torres Attending: Lorena Rodriguez MD;Michael,* Service: Surgery-Urology Admission Date: 09/04/2020 LOS: 9 days A Code/Rapid Response Timeline Event Report has been created for this patient on 09/13 at 0730 for hypotension and tachycardia. The Attending physician, Dr. Rodriguez, was notified by surgucal resident, of this ev ent. Yung Kelley RN * Response Teams - Mariah Swanson RN - 09/12/2020 9:40 PM CDT Rapid Response Team Progress Note Date: 09/12/2020 Time: 9:57 PM Patient: Carlos Alberto Torres Attending: Lorena Rodriguez MD;Michael,* Service: Surgery-Urology Admission Date: 09/04/2020 LOS: 8 days A Code/Rapid Response Timeline Event Report has been created for this patient on 09/12 at 2115 for hypotension. Pt. Nicom'd with 250ml LR - not fluid responsive. Dr. Perry notified; at bedside for evaluation - stated comfortable with MAP go al>60. Pt. mentating appropriately. No other concerns at this time. Primary RN comfortable with current plan of care. RACECAR DRIVER to follow up per protocol. 2350: At bedside for follow up. Pt. resting comfortably, BP stable. Pt. easily a rousable, able to answer orientation questions. Primary RN notified; denied any concerns at this time. RACECAR DRIVER follow up complete at this time. Mariah Swanson RN * Drug Level - Yusuf Reno, ALEJANDRAD - 09/12/2020 3:27 PM CDT Pharmacy Vancomycin Note Subjective: Carlos Alberto Torres is a 70 y.o. female being treated for MRSE CLABSI. Objective: Current Vancomycin Orders Medication Dose Route Frequency vancomycin (VANCOCIN) 1,750 mg in sodium chloride 0.9% (NS) 285 mL IVPB 1,7 50 mg Intravenous Q24H* vancomycin, pharmacy to manage 1 each Service Per Pharmacy Start Date of vancomycin therapy: 09/09/2020 Cultures: , , , White Blood Cells Date/Time Value Ref Range Status 09/12/2020 0440 15.9 (H) 4.5 - 11.0 K/UL Final 09/11/2020 0432 12.9 (H) 4.5 - 11.0 K/UL Final 09/10/2020 0440 12.4 (H) 4.5 - 11.0 K/UL Final Creatinine Date/Time Value Ref Range Status 09/12/2020 0440 0.88 0.4 - 1.00 MG/DL Final 09/11/2020 0432 0.72 0.4 - 1.00 MG/DL Final 09/10/2020 0440 0.69 0.4 - 1.00 MG/DL Final Blood Urea Nitrogen Date/Time Value Ref Range Status 09/12/2020 0440 11 7 - 25 MG/DL Final Estimated CrCl: 54.8 mL/min Actual Weight: 73.5 kg (162 lb) Dosing BW: 76.2 kg Drug Levels: Vancomycin Trough Date/Time Value Ref Range Status 09/12/2020 0440 16.1 10.0 - 20.0 MCG/ML Final Assessment: Target levels for this patient: 1. AUC (mcg*h/mL): 400-600 2. Trough 15-20 mcg/mL Evaluation of AUC and/or level(s): Unable to draw 2 hour post infusion level as IV access remains a challenge. Trough of 16.1 is ~3.5 hours earlier than a true trough; however, believe trough still in therapeutic window >12 mcg/mL if drawn as true trough. Plan: 1. Inconsistent IV access prevented timely infusion of vancomycin. However, trou gh is reliable and demonstrates that vancomycin at therapeutic level. Will get n ew AUC levels once PICC line is placed and has had fully infused vancomycin dose s. 2. Next scheduled level(s): at steady state once reliable IV access has been ach ieved (noted new PICC orders) 3. Pharmacy will continue to monitor and adjust therapy as needed. Yusuf Reno PHARMD 09/12/2020 * Care Plan - Makenna Irving RD - 09/12/2020 12:40 PM CDT Problem: Nutrition Deficit Goal: Adequate nutritional intake Outcome: Goal Ongoing Flowsheets (Taken 09/12/2020 1240) Adequate nutritional intake: Promote oral intake Brief Nutrition Support Service note: Noted patient's continued PO intake struggles. Agree with team's plan for imagin g today. Encouraging utilization of EN support if feasible (via post-pyloric cor iveth) to meet nutrition needs, to avoid need for repeat PICC & PN support. Will continue to follow & provide orders/recommendations as indicated. Makenna Irving RD, LD, CNSC Available on [facility] | Office: [phone] * Care Plan - Chepe Leyva RN - 09/12/2020 12:29 AM CDT Problem: Infection, Risk of, Central Venous Catheter-Associated Bloodstream Infe ction Goal: Absence of CVC Associated Bloodstream infection Outcome: Goal Ongoing Problem: Infection, Risk of, Urinary Catheter-Associated Urinary Tract Infection Goal: Absence of urinary catheter-associated infection Outcome: Goal Ongoing Problem: Discharge Planning Goal: Participation in plan of care Outcome: Goal Ongoing Goal: Knowledge regarding plan of care Outcome: Goal Ongoing Goal: Prepared for discharge Outcome: Goal Ongoing Problem: Pain Goal: Management of pain Outcome: Goal Ongoing Goal: Knowledge of pain management Outcome: Goal Ongoing Goal: Progress Toward Pain Management Goals Outcome: Goal Ongoing Problem: High Fall Risk Goal: High Fall Risk Outcome: Goal Ongoing Problem: Nutrition Deficit Goal: Adequate nutritional intake Outcome: Goal Ongoing Problem: Skin Integrity Goal: Skin integrity intact Outcome: Goal Ongoing Goal: Healing of skin (Wound & Incision) Outcome: Goal Ongoing Goal: Healing of skin (Pressure Injury) Outcome: Goal Ongoing Problem: Self-Care Deficit Goal: Maximize ADL functioning Outcome: Goal Ongoing Problem: Mobility/Activity Intolerance Goal: Maximize functional ADL's and mobility outcomes Outcome: Goal Ongoing Problem: Infection, Risk of Goal: Absence of infection Outcome: Goal Ongoing Goal: Knowledge of Infection Control Procedures Outcome: Goal Ongoing * Case Mgmt DC Plan - Luly López - 09/11/2020 3:40 PM CDT Case Management Progress Note NAME:Carlos Alberto Torres :1950 AGE: 70 y.o. ADMISSION DATE: 09/04/2020 DAYS ADMITTED: LOS: 7 days Todays Date: 09/11/2020 Plan Pt [place] [facility] [place] medically stable . Interventions Support Info or Referral Discharge Planning Discharge Planning: Retirement Facility, Home Health JILLIAN received call from Nicole with [facility]. Nicole informed that [employer] h as provided SNF with auth. JILLIAN updated Nicole that pt will not be ready to d/c unti l at least Friday. Nicole anticipates she can continue to update [employer] on d/c d ate and that authorization will still be in place once pt ready to d/c. Facility requesting 3-4 days worth of ostomy supplies be sent with pt. JILLIAN agreed to requ est this from RN. JILLIAN faxed new wound/ostomy note so facility can order correct s upplies. JILLIAN will f/u with Nicole tomorrow with updated ELIANA. Disposition Expected Discharge Date 09/13/2020 2:00 PM Transportation Does the patient need discharge transport arranged?: Yes Does the patient use Medicaid Transportation?: No Discharge Disposition Selected Continued Care - Admitted Since 09/04/2020 [facility] Destination Coordination complete Service Provider Selected Services Address Phone Fax Patient Preferred [facility] [address] [place] [address] [phone] Luly López LMSW Pager: [phone] * Care Plan - Makenna Irving RD - 09/11/2020 2:14 PM CDT Problem: Nutrition Deficit Goal: Adequate nutritional intake Outcome: Goal Ongoing Flowsheets (Taken 09/11/2020 1413) Adequate nutritional intake: Assess dietary preferences Promote oral intake Administer total parenteral nutrition Knowledge of nutritional diet Brief Nutrition Support Service note: PN discontinued over weekend due to line removal/holiday. Is weaned somewhat on O2 requirements; down to 2L NC at time of RD visit this afternoon. Getting daily lasix. Is depleted on lytes; ordered for IV & PO replacements today. Small, but +ostomy outputs per patient. Team advanced diet from CLD to Regular this morning. As of ~14:00, patient reports she has tolerated a piece of toast with butter & jelly on it, plus has had some soda & water so far today. Says it's the first solid food she has had since November, so is quite thrilled. Says she plans to take it conservatively and slowly, and thus declined offer from family for Margarito Mora. RD provided a review of intake strategies going forward to optimize GI tolerance/minimize likelihood of developing post-prandial GI symptoms. Reviewed the menu & ordering process; encouraged patient to place 3 meals orders daily & request snacks/oral supplements from unit in-between meals all towards effort of resuming proper GI function & better meeting nutrition needs without need for EN/PN support. Discussed nutrition POC with primary team as well; will be in discussion daily regarding whether EN/PN support will resume, pending tolerance/adequacy of intakes. Will continue to follow. Makenna Irving RD, LD, CNSC Available on Voalte | Office: [phone] * Case Mgmt DC Plan - Susan Le - 09/11/2020 10:18 AM CDT Case Management Progress Note NAME:Carlos Alberto Torres :1950 AGE: 70 y.o. ADMISSION DATE: 09/04/2020 DAYS ADMITTED: LOS: 7 days Todays Date: 09/11/2020 Plan DC planning ongoing to possible SNF when medically stable. Interventions Support Info or Referral Discharge Planning Discharge Planning: Retirement Facility, Home Health SW attended huddle which shared anticipated dc date to be Friday of this w [place]. SW received call from [facility] who reported Mauricio was requesting kenricka otoniel information (therapy, etc.) before they will approve auth. JILLIAN sent Nicole of [facility] referral update. Medication Needs Financial Legal Other Disposition Expected Discharge Date 09/13/2020 2:00 PM Transportation Does the patient need discharge transport arranged?: Yes Does the patient use Medicaid Transportation?: No Next Level of Care (Acute Psych discharges only) Discharge Disposition Selected Continued Care - Admitted Since 09/04/2020 No services have been selected for the patient. Susan Le LMSW [phone] * Care Plan - Case Cardoso RN - 09/10/2020 6:59 AM CDT Problem: Infection, Risk of, Central Venous Catheter-Associated Bloodstream Infe ction Goal: Absence of CVC Associated Bloodstream infection Outcome: Goal Ongoing Problem: Infection, Risk of, Urinary Catheter-Associated Urinary Tract Infection Goal: Absence of urinary catheter-associated infection Outcome: Goal Ongoing Problem: Discharge Planning Goal: Participation in plan of care Outcome: Goal Ongoing Goal: Knowledge regarding plan of care Outcome: Goal Ongoing Goal: Prepared for discharge Outcome: Goal Ongoing Problem: Pain Goal: Management of pain Outcome: Goal Ongoing Goal: Knowledge of pain management Outcome: Goal Ongoing Goal: Progress Toward Pain Management Goals Outcome: Goal Ongoing Problem: High Fall Risk Goal: High Fall Risk Outcome: Goal Ongoing Problem: Nutrition Deficit Goal: Adequate nutritional intake Outcome: Goal Ongoing Problem: Skin Integrity Goal: Skin integrity intact Outcome: Goal Ongoing Goal: Healing of skin (Wound & Incision) Outcome: Goal Ongoing Goal: Healing of skin (Pressure Injury) Outcome: Goal Ongoing Problem: Self-Care Deficit Goal: Maximize ADL functioning Outcome: Goal Ongoing Problem: Mobility/Activity Intolerance Goal: Maximize functional ADL's and mobility outcomes Outcome: Goal Ongoing Problem: Infection, Risk of Goal: Absence of infection Outcome: Goal Ongoing Goal: Knowledge of Infection Control Procedures Outcome: Goal Ongoing * Care Plan - Rachelle Kohli RD - 09/09/2020 9:50 AM CDT Problem: Nutrition Deficit Goal: Adequate nutritional intake Flowsheets (Taken 09/09/2020 0950) Adequate nutritional intake: Administer total parenteral nutrition NSS New Car Inspector-- NSS source water protection specialist requested to review PN order/labs and decrease volume. Pt is now wi th positive blood cultures and TPN stopped for now with plans to remove PICC charlotte e. Reached out to primary team regarding request to infuse at least D5 vs D10 o marin current LR for IVF while TPN is off. NSS to continue to follow regarding pl ans to restart TPN as feasible. Rachelle Kohli MA, RD, LD, CNSC NSS call out clerk, Voalte Me or [employer] Connect *[phone] * Drug Level - Arnie Torres, PHARMD - 09/09/2020 8:29 AM CDT Pharmacy Vancomycin Note Subjective: Carlos Alberto Torres is a 70 y.o. female being treated for MRSE CLABSI. Objective: Current Vancomycin Orders Medication Dose Route Frequency [START ON 09/10/2020] vancomycin (VANCOCIN) 1,750 mg in sodium chloride 0.9% (NS) 285 mL IVPB 1,750 mg Intravenous Q24H* vancomycin (VANCOCIN) 2,000 mg in sodium chloride 0.9% (NS) 290 mL IVPB 25 mg/kg Intravenous ONCE vancomycin, pharmacy to manage 1 each Service Per Pharmacy Start Date of vancomycin therapy: 09/09/2020 Additional Abx: ceftriaxone, flagyl, fluconazole Cultures: , , , White Blood Cells Date/Time Value Ref Range Status 09/09/2020 0510 11.1 (H) 4.5 - 11.0 K/UL Final 09/08/2020 0330 11.9 (H) 4.5 - 11.0 K/UL Final 09/07/2020 0330 16.5 (H) 4.5 - 11.0 K/UL Final 09/06/2020 1220 13.3 (H) 4.5 - 11.0 K/UL Final Creatinine Date/Time Value Ref Range Status 09/09/2020 0510 0.66 0.4 - 1.00 MG/DL Final 09/08/2020 0330 0.76 0.4 - 1.00 MG/DL Final 09/07/2020 0330 0.77 0.4 - 1.00 MG/DL Final Blood Urea Nitrogen Date/Time Value Ref Range Status 09/09/2020 0510 20 7 - 25 MG/DL Final Estimated CrCl: 70 Intake/Output Summary (Last 24 hours) at 09/09/2020 0829 Last data filed at 09/09/2020 0700 Gross per 24 hour Intake 120 ml Output 3255 ml Net -3135 ml UOP: Actual Weight: 76.2 kg (167 lb 14.4 oz) Dosing BW: 76.2 kg Drug Levels: No results found for: VANCOMYCIN 2HR POST DOSE, VANCOMYCIN TROUGH, VANCOMYCIN RA NDOM Calculations: Calculated True Peak (mcg/mL): Calculated Trough (mcg/mL): Rate of elimination (h-1): Half Life (hr): Volume of distribution (L/kg): AUC (mcg*h/mL): Assessment: Target levels for this patient: 1. AUC (mcg*h/mL): 400-600 2. Evaluation of AUC and/or level(s): Plan: 1. Load with vancomycin 2000mg IV x1 and then continue with 1750mg IV Q24H 2. Next scheduled level(s): Steady State AUC levels 3. Pharmacy will continue to monitor and adjust therapy as needed. Arnie Torres, PHARMD 09/09/2020 * Care Plan - Chepe Leyva RN - 09/09/2020 1:59 AM CDT Problem: Infection, Risk of, Central Venous Catheter-Associated Bloodstream Infe ction Goal: Absence of CVC Associated Bloodstream infection Outcome: Goal Ongoing Problem: Infection, Risk of, Urinary Catheter-Associated Urinary Tract Infection Goal: Absence of urinary catheter-associated infection Outcome: Goal Ongoing Problem: Discharge Planning Goal: Participation in plan of care Outcome: Goal Ongoing Goal: Knowledge regarding plan of care Outcome: Goal Ongoing Goal: Prepared for discharge Outcome: Goal Ongoing Problem: Pain Goal: Management of pain Outcome: Goal Ongoing Goal: Knowledge of pain management Outcome: Goal Ongoing Goal: Progress Toward Pain Management Goals Outcome: Goal Ongoing Problem: High Fall Risk Goal: High Fall Risk Outcome: Goal Ongoing Problem: Nutrition Deficit Goal: Adequate nutritional intake Outcome: Goal Ongoing Problem: Skin Integrity Goal: Skin integrity intact Outcome: Goal Ongoing Goal: Healing of skin (Wound & Incision) Outcome: Goal Ongoing Goal: Healing of skin (Pressure Injury) Outcome: Goal Ongoing Problem: Self-Care Deficit Goal: Maximize ADL functioning Outcome: Goal Ongoing Problem: Mobility/Activity Intolerance Goal: Maximize functional ADL's and mobility outcomes Outcome: Goal Ongoing Problem: Infection, Risk of Goal: Absence of infection Outcome: Goal Ongoing Goal: Knowledge of Infection Control Procedures Outcome: Goal Ongoing * Case Mgmt DC Plan - Susan Le - 09/08/2020 11:33 AM CDT Case Management Progress Note NAME:Carlos Alberto Torres :1950 AGE: 70 y.o. ADMISSION DATE: 09/04/2020 DAYS ADMITTED: LOS: 4 days Todays Date: 09/08/2020 Plan DC planning ongoing. Pt would like to return to previous SNF with [facility] and referral made, auth to be requested when closer to dc. Interventions Support Info or Referral Discharge Planning Discharge Planning: Retirement Facility, Home Health JILLIAN sent updates to [facility]. JILLIAN attended huddle and received update on POC. Anticipate pt will be able to dc Friday or Friday of next week. JILLIAN will follow up with [facility] on Friday. Medication Needs Financial Legal Other Disposition Expected Discharge Date 09/13/2020 2:00 PM Transportation Does the patient need discharge transport arranged?: Yes Does the patient use Medicaid Transportation?: No Next Level of Care (Acute Psych discharges only) Discharge Disposition Selected Continued Care - Admitted Since 09/04/2020 No services have been selected for the patient. Susan Le LMSW [phone] * Care Plan - Makenna Irving RD - 09/08/2020 10:25 AM CDT Problem: Nutrition Deficit Goal: Adequate nutritional intake Outcome: Goal Ongoing Flowsheets (Taken 09/08/2020 1024) Adequate nutritional intake: Administer total parenteral nutrition Brief Nutrition Support Service note: Patient now NPO with NGT to LIWS placed 09/07 AM to manage n/v & ongoing low/minimal ostomy output. Noted increased O2 requirements & fever this AM following bouts of emesis yesterday; team ordered CXR & checking blood cx. Continues to receive nocturnal PN support through post-op management. Bag providing 1490kcal, 90g protein and 1800ml over 24hrs. Labs, meds, I/Os reviewed. Serum Phos is correcting. Serum K+ remains below goal, likely with lasix boluses & GI losses yesterday. Will increase K+ by 10mEq tonight; team can further replace outside prn. With NG now in, plus lasix wasting, will plan to increase cl:acetate ratio by 1 step. Team to adjust prn over weekend. NSS available via Voalte as needed. PN order changes (to start at 20:30): Increased K+ from 60 to 70mEq Increased cl:acetate from 1:2 to 1:1 PN to provide 1490kcal (26kcal/kg desired wt), 90g protein (1.6g/kg desired wt) (100% goals) The primary team is responsible for any PN changes on weekends/holidays. No act ion needs to be taken if no changes are desired. NSS is available on [employer] or by pager [phone] for assistance. M[address], LD, CNSC Available on [employer] | Office: [phone] * Care Plan - Chepe Leyva RN - 09/08/2020 1:59 AM CDT Problem: Infection, Risk of, Central Venous Catheter-Associated Bloodstream Infe ction Goal: Absence of CVC Associated Bloodstream infection Outcome: Goal Ongoing Problem: Infection, Risk of, Urinary Catheter-Associated Urinary Tract Infection Goal: Absence of urinary catheter-associated infection Outcome: Goal Ongoing Problem: Discharge Planning Goal: Participation in plan of care Outcome: Goal Ongoing Goal: Knowledge regarding plan of care Outcome: Goal Ongoing Goal: Prepared for discharge Outcome: Goal Ongoing Problem: Pain Goal: Management of pain Outcome: Goal Ongoing Goal: Knowledge of pain management Outcome: Goal Ongoing Goal: Progress Toward Pain Management Goals Outcome: Goal Ongoing Problem: High Fall Risk Goal: High Fall Risk Outcome: Goal Ongoing Problem: Nutrition Deficit Goal: Adequate nutritional intake Outcome: Goal Ongoing Problem: Skin Integrity Goal: Skin integrity intact Outcome: Goal Ongoing Goal: Healing of skin (Wound & Incision) Outcome: Goal Ongoing Goal: Healing of skin (Pressure Injury) Outcome: Goal Ongoing * Case Mgmt DC Plan - Susan Le - 09/07/2020 1:29 PM CDT Case Management Progress Note NAME:Carlos Alberto Torres :1950 AGE: 70 y.o. ADMISSION DATE: 09/04/2020 DAYS ADMITTED: LOS: 3 days Todays Date: 09/07/2020 Plan DC planning ongoing. Pt previously at SNF placement with [facility] and exp resses interest to return to this facility. Interventions Support Info or Referral Discharge Planning Discharge Planning: Retirement Facility, Home Health JILLIAN contacted Nicole at [facility] who indicated the request for authorizati on will be completed closer to her dc date. SW shared pt's anticipated dc date is potentially next 09/12/20. Nicole requested updated information/notes be sent tomorrow, Friday. Nicole added the facility will need a COVID test [id number] hours prior to dc. Medication Needs Financial Legal Other Disposition Expected Discharge Date 09/12/2020 2:00 PM Transportation Does the patient need discharge transport arranged?: Yes Does the patient use Medicaid Transportation?: No Next Level of Care (Acute Psych discharges only) Discharge Disposition Selected Continued Care - Admitted Since 09/04/2020 No services have been selected for the patient. Susan Le LMSW * Care Plan - Makenna Irving RD - 09/07/2020 8:51 AM CDT Problem: Nutrition Deficit Goal: Adequate nutritional intake Outcome: Goal Ongoing Flowsheets (Taken 09/07/2020 0851) Adequate nutritional intake: Promote oral intake Administer total parenteral nutrition Knowledge of nutritional diet Brief Nutrition Support Service note: Patient continues on CLD for today given ongoing efforts to manage nausea & low colostomy output thus far. PN support meantime providing nutrition needs. Day 3 of in-house infusion; bag providing 1490kcal, 90g protein & 1800ml total volume (75ml/hr). On 3L NC, lasix boluses x 1 last couple days. Appreciate MD's order for outside IV KPhos this morning. Will plan to increase K+ conservatively again in tonight's bag & increase Phos again by 5mmol. Will add 50mg thiamine supplementation to replace losses from diuresis. Patient was provided ostomy diet education (verbal/written) by this RD 09/05/20; had demonstrated good understanding. PN order changes (to start at 20:30): Increased K+ from 50 to 60mEq Increased Phos from 25 to 30mmol Added 50mg supplemental thiamine PN to provide 1490kcal (26kcal/kg desired wt), 90g protein (1.6g/kg desired wt) (100% goals) Makenna Irving RD, LD, CNSC Available on Voalte | Office: [phone] * Operative Report (DICTATED ONLY) - Bran Martell DO - 09/07/2020 7:02 AM CDT THE [address] [id number] PATIENT NAME: CARLOS ALBERTO TORRES MR#/PT#: [id number] Page 4 OPERATIVE REPORT DATE OF OPERATION: 09/04/2020 SURGEON: Bran Martell DO PREOPERATIVE DIAGNOSIS: Colovesical fistula Large incisional hernia Severe adhesions Mesh to skin infection POSTOPERATIVE DIAGNOSIS: Same OPERATIVE PROCEDURE: 1. Exploratory laparotomy. 2. Low anterior resection. 3. Mobilization of splenic flexure. 4. Resection of infected mesh. 5. A 22 modifier for multiple prior surgeries, infected field, infected mesh and several hernia repairs. 6. Lysis of adhesions lasting longer than 2 hours. ANESTHESIA: GETA INDICATIONS FOR OPERATIVE PROCEDURE: Ms. Torres is a very pleasant 70-year-old female, who has a long-standing history of multiple colovesical fistulas. She has had multiple repairs for this, which is also resulted in a history of a right ureteral injury with a ureteral reimpl antation and a psoas hitch. She has had several exploratory laparotomies for ve ntral hernia repairs, bowel obstructions, repaired all with permanent mesh. 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 She has been admitted several times for sepsis, found to have urosepsis. She has percutaneous nephr ostomy tubes in place. She has been on TPN at a care facility due to poor nutri tion intake. We had a careful and long conversation with her and her family abo ut the risks of this procedure. She understood this. DESCRIPTION AND FINDINGS OF OPERATIVE PROCEDURE: After informed consent was obtained by the patient, the patient was taken to the operating room and placed in supine position. Under appropriate general endotr acheal anesthesia, she was placed in lithotomy position. All pressure points we re carefully padded. We had a time-out, which verified all pertinent portions o f the procedure. We then made a midline incision extending from well above the umbilicus down to the pubis. The peritoneal cavity was entered in the safe and stable manner. Once in the peritoneal cavity, we used Bovie electrocautery to e nter and take down adhesions. The adhesions were of the omentum to the anterior abdominal wall as well as small bowel to the anterior abdominal wall. We spent at least 1-2 hours lysing adhesions of the small bowel. Once we were able to f ree the abdominal wall, we were able to place a Bookwalter retractor system for visualization. We then performed a careful lysis of adhesions, which took anoth er extended amount of time down the pelvis, clearing out the pelvis of all of it s adhesions. Once we were able to do this, we were able to visualize all the pe lvic structures. The right psoas hitch was identified as well as the ureter. T he rectum was densely adhered to the posterior portion of this as we expected. We attempted to circumferentially dissect around the colon conduit that had been brought down in prior surgeries and then ultimately able to do this. Once we g ot around this, we dissected inferiorly, and once we got to the area of the stri cture and fistula, the anastomosis essentially fell apart in the process of diss ecting. We then transected the proximal aspect with a stapler and sent this as descending colon to Pathology. We then placed our attention back, placed Allis clamps on the residual rectal cuff and performed a circumferential dissection al l the way down to where we could get the soft pliable rectum. At this point, we transected the mesorectum and then transected the rectum itself using a Contour stapler. The specimen was sent as rectum to Pathology. This dissection was ve ry meticulous and was quite difficult. There were no normal planes. This added extensively the difficulty in time of the case. I did enter the patient's left internal iliac vein. This resulted in significant amount of bleeding, allowing anesthesia time to catch up. We oversewed this area and hemostasis was then no otoniel to be excellent. This area was oversewn with 2-0 Vicryl UR6 sutures. We th en packed the pelvis off and irrigated copiously. I then placed my attention to dissecting all the contents out of the left hernia sac. Once the left hernia s ac was completely dissected free, we then mobilized the colon proximally up to a round the splenic flexure, mobilized the splenic flexure in its entirety and as well as the transverse colon. The conduit was based off the middle colic vessel s. It would not reach the patient's right upper quadrant where I wanted to use as an ostomy site. She had mesh scattered throughout her entire abdomen. Her l eft upper quadrant was a large hernia and her fascia was very friable. Therefor e, we resected the colon proximally performing essentially subtotal colectomy al l the way up to the proximal transverse colon. This was easily delivered throug h the preoperatively marked ostomy site that had been marked, opened and the mus nadege split bluntly and the fascia opened. This was left in place. Then, Dr. Irasema stevens performed his portion of procedure, which included a partial cystectomy, a com plex cystorrhaphy, ureteral stent placement, and any other indicated procedures. I then proceeded with irrigation of the peritoneal cavity with several liters of warm normal saline. This was an infected wound as there was infected mesh with gross purulence around it. In addition, there was a pelvic abscess between the colon and the bladder itself. This abscess was taken down and was excised with Dr. Rodriguez's portion of the bladder as well as my portion of the colon. We then removed all the packings. The pelvis was hemostatic. The patient was not on an y pressors when I asked and blood pressure had returned to preoperative numbers. We then proceeded with closure. Number 1 looped PDS suture was ran in the mid line, secured upon itself and secured. There was a procedure pack of Seprafilm placed within the abdomen. We did at that time mature the ostomy in the usual B rooke fashion. It was pink, viable and bled well. The patient tolerated our pr ocedure well. ESTIMATED BLOOD LOSS: 2 L. Drains: A 19-Peruvian fully-fluted Edy drain in the pelvis and a 20-Peruvian Fole y catheter per urethra and a left ureteral stent. SPECIMENS REMOVED: Descending colon, rectum, sent to Pathology. Mesh sent to Pathology. I was present for the entirety of this procedure as was Dr. Rodriguez. This required 2 expert surgeons and 2 expert roman with no qualified residents being availab le. The planes were completely obliterated from her multiple prior surgeries an d her abnormal anatomy as well as the dense adhesions within the pelvis. Bran Martell DO JA / MEDQ /[id number] cc: - Bran Martell DO ATTESTATION I performed this procedure with a resident. and I was present for the entire pro cedure. Staff name: Bran Martell DO Date: 09/19/2020 * Care Plan - Kelly Gaytan, KOBI - 09/06/2020 5:28 AM CDT Problem: Infection, Risk of, Central Venous Catheter-Associated Bloodstream Infe ction Goal: Absence of CVC Associated Bloodstream infection Outcome: Goal Ongoing Flowsheets (Taken 09/06/2020 7842) Absence of CVC associated bloodstream infection: Assess for central line catheter infection (Monitor SIRS criteria) Manage central venous catheter Follow central line bundle components Problem: Infection, Risk of, Urinary Catheter-Associated Urinary Tract Infection Goal: Absence of urinary catheter-associated infection Outcome: Goal Ongoing Flowsheets (Taken 09/06/2020526) Absence of urinary catheter-associated infections: Manage urinary catheter Assess for signs and sypmtoms of catheter-associated urinary tract infection Collect urinne specimens appropriately Problem: Discharge Planning Goal: Participation in plan of care Outcome: Goal Ongoing Flowsheets (Taken 09/06/2020526) Participation in Plan of Care: Involve patient/caregiver in care planning decisi on making Goal: Knowledge regarding plan of care Outcome: Goal Ongoing Flowsheets (Taken 09/06/2020526) Knowledge regarding plan of care: Provide infection prevention education Provide VTE signs and symptoms education Provide plan of care education Provide fall prevention education Provide medication management education Goal: Prepared for discharge Outcome: Goal Ongoing Flowsheets (Taken 09/06/2020526) Prepared for discharge: Complete ADL ability assessment Collaborate with multidisciplinary team for hospital discharge coordination Provide safe use medical equipment education Provide diet and oral health education Problem: Pain Goal: Management of pain Outcome: Goal Ongoing Flowsheets (Taken 09/06/2020526) Management of pain: Complete pain assessment scale according to age, condition and ability to under stand. In the patient who can fully report pain, assess pain characteristics. Manage pain. Assess opioid analgesia side-effects. Goal: Knowledge of pain management Outcome: Goal Ongoing Flowsheets (Taken 09/06/2020526) Knowledge of pain management: Provide pain scale education Provide pharmacological pain management education Provide pain management methods education Goal: Progress Toward Pain Management Goals Outcome: Goal Ongoing Flowsheets (Taken 09/06/2020526) Progress toward pain management goals: Progress toward pain management goals Assess progress toward pain management goals Problem: High Fall Risk Goal: High Fall Risk Outcome: Goal Ongoing Flowsheets (Taken 09/06/2020526) High Fall Risk: All patients will receive: High fall risk sign, yellow wristband, yellow socks, gait belt, and shower shoes Engage bed alarm - middle setting Engage chair alarm Stay with the patient while toileting/showering PT/OT consult for fall prevention assessment if scoring in Unsteady Gait or Vis ual or Auditory impairment Move patient near RN station if confused (if possible) Remove excess equipment/supplies Educate patient to use call-light if tethered Use shower shoes Maximize bed functionality (optimize bed height, firm/flat surface) Use safe patient handling equipment as appropriate Assess need for bedside commode with drop arm to be available in room Assess need for: quick release belt, PSM (video monitoring), assist x2 using cl inical staff/equipment * Case Mgmt DC Plan - Luly López - 09/05/2020 4:22 PM CDT Case Management Progress Note NAME:Carlos Alberto Torres :1950 AGE: 70 y.o. ADMISSION DATE: 09/04/2020 DAYS ADMITTED: LOS: 1 day Todays Date: 09/05/2020 Plan DC planning ongoing. Anticipate d/c to [facility] pending medical stabil ity and insurance authorization. Interventions Support Info or Referral Discharge Planning Discharge Planning: Retirement Facility, Home Health JILLIAN received update from [facility] that pt would like to d/c to [facility] w here she has been recently. JILLIAN called [facility] admissions at [phone] and spoke to Nicole. Nicole joséld not recall if pt had discharged from their facility to home recently or if she was admitted directly to [facility] from SNF, will review for specifics. Nicole did recall that pt [employer] had recently stopped paying for pt's SNF stay and pt had pa id a few days out of pocket. Nicole believes that with a new hospitalization with new needs that facility could likely obtain new authorization. Nicole agreed to re view referral and f/u with JILLIAN regarding acceptance and auth. JILLIAN faxed SNF referral to [facility] at [phone]. Disposition Expected Discharge Date 09/10/2020 2:00 PM Transportation Does the patient need discharge transport arranged?: Yes Does the patient use Medicaid Transportation?: No Next Level of Care (Acute Psych discharges only) Discharge Disposition Selected Continued Care - Admitted Since 09/04/2020 No services have been selected for the patient. Luly López LMSW Pager: [phone] * Case Mgmt DC Plan - Gini Jeffrey RN - 09/05/2020 2:44 PM CDT Case Management Progress Note NAME:Carlos Alberto Torres :1950 AGE: 70 y.o. ADMISSION DATE: 09/04/2020 DAYS ADMITTED: LOS: 1 day Todays Date: 09/05/2020 Plan Anticipate pt to DC when medically ready to [facility]. Interventions Support Info or Referral Discharge Planning Discharge Planning: Retirement Facility, Home Health NCM advised SWCMs of pts desire to DC to [facility] discussing that pt reports a problem with the insurance because of the number of days she's been there. Pt does advise this would not be an obstacle in going back however. Medication Needs Financial Legal Other Disposition Expected Discharge Date 09/10/2020 2:00 PM Transportation Does the patient need discharge transport arranged?: Yes Does the patient use Medicaid Transportation?: No Next Level of Care (Acute Psych discharges only) Discharge Disposition Selected Continued Care - Admitted Since 09/04/2020 No services have been selected for the patient. Case Management Admission Assessment NAME:Carlos Alberto Torres : 1950 AGE: 70 y.o. ADMISSION DATE: 09/04/2020 DAYS ADMITTED: LOS: 1 day Todays Date: 09/05/2020 Source of Information: Pt, EMR, Huddle Plan Plan: Case Management Assessment, Assist PRN with SW/[facility] Services, Discharge Katty nning for Home with [...] with her fiance who is currently in [facility] on a vent with Covid. -Pt repts she admitted from [facility] and plans to return. -Discussed plan of discharge with pt. -CM will continue to follow for possible pt needs. Patient Address/Phone [address] [address] (home) Emergency Contact Extended Emergency [...] Admission Living Arrangements Type of Residence: senior living facility Living Arrangements: Spouse/significant other(Maria De Jesus is currently in [facility] on a ventilator battling COVIL.) Bathroom Shower / Tub: Tub/Shower Unit How many levels in the residence?: 1 Can patient live on one level if needed?: Yes Does residence have entry and/or side stairs?: No Assistance needed prior to admit or anticipated on discharge: Yes Who provides assistance or could if needed?: [facility]. 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 Financial Resources Coverage Primary Insurance: Medicare Replacement Secondary Insurance: No insurance Additional Coverage: RX(Pt fills scripts at [facility] on [address] and reports low copays.) Source of Income Source Of Income: Employed Financial Assistance Needed? [facility]. Psychosocial Needs Mental Health Mental Health History: In the past Substance Use History Substance Use History Screen: In the past Comment: Pt quit smoking 4 mos ago. Other na Current/Previous Services PCP Geraldo Mcknight, , [id number] - [place], [place] - [address] [id number] [facility] [address] [place] [address] Durable Medical Equipment Durable Medical Equipment at home: Rollator(Walker belonged to her mother.) Home Health Receiving home health: In the past Agency name: [facility] Would patient use this agency again?: Yes Hemodialysis or Peritoneal Dialysis Undergoing hemodialysis or peritoneal dialysis: No Tube/Enteral Feeds Receive tube/enteral feeds: No Infusion Receive infusions: In the past Where: Home Infusion company: [facility] Would patient use this agency again?: Yes Private Duty Private duty help used: No Home and Community Based Services Home and community based services: No Sixto Henson White: N/A Hospice Hospice: No Outpatient Therapy PT: No OT: No CABINETMAKER HELPER: No Retirement Facility/Detention SNF: Yes When did patient receive care?: until admission Name of Facility: [facility] Would patient return for future services?: Yes NH: No Inpatient Rehab IPR: No Long-Term Acute Care Hospital LTACH: No Acute Hospital Stay Acute Hospital Stay: In the past Was patient's stay within the last 30 days?: No Gini Jeffrey RN BSN, [facility] Nurse Bird Sitter Pager: [phone] * Care Plan - Héctor Morris RN - 09/05/2020 12:53 AM CDT Problem: Infection, Risk of, Central Venous Catheter-Associated Bloodstream Infe ction Goal: Absence of CVC Associated Bloodstream infection Outcome: Goal Ongoing Flowsheets (Taken 09/05/2020 0052) Absence of CVC associated bloodstream infection: Manage central venous catheter Assess for central line catheter infection (Monitor SIRS criteria) Follow central line bundle components Problem: Infection, Risk of, Urinary Catheter-Associated Urinary Tract Infection Goal: Absence of urinary catheter-associated infection Outcome: Goal Ongoing Flowsheets (Taken 09/05/2020 0052) Absence of urinary catheter-associated infections: Manage urinary catheter Assess for signs and sypmtoms of catheter-associated urinary tract infection Collect urinne specimens appropriately Provide patient/family education on CAUTI prevention Problem: Discharge Planning Goal: Participation in plan of care Outcome: Goal Ongoing Flowsheets (Taken 09/05/202051) Participation in Plan of Care: Involve patient/caregiver in care planning decisi on making Goal: Knowledge regarding plan of care Outcome: Goal Ongoing Flowsheets (Taken 09/05/202051) Knowledge regarding plan of care: Provide admission education to parent/caregiver Provide fall prevention education Provide infection prevention education Provide plan of care education Provide procedural and treatment education Provide medication management education Provide VTE signs and symptoms education Goal: Prepared for discharge Outcome: Goal Ongoing Flowsheets (Taken 09/05/202051) Prepared for discharge: Complete ADL ability assessment Provide safe use medical equipment education Provide diet and oral health education Collaborate with multidisciplinary team for hospital discharge coordination Problem: Pain Goal: Management of pain Outcome: Goal Ongoing Flowsheets (Taken 09/05/202051) Management of pain: Complete pain assessment scale according to age, condition and ability to under stand. Assess opioid analgesia side-effects. Assess pain control barriers. Manage pain. In the patient who can fully report pain, assess pain characteristics. Goal: Knowledge of pain management Outcome: Goal Ongoing Flowsheets (Taken 09/05/202051) Knowledge of pain management: Provide pain scale education Provide pain management methods education Provide pharmacological pain management education Goal: Progress Toward Pain Management Goals Outcome: Goal Ongoing Flowsheets (Taken 09/05/202051) Progress toward pain management goals: Progress toward pain management goals Assess progress toward pain management goals * Operative Report (DICTATED ONLY) - Lorena Rodriguez MD - 09/04/2020 8:41 PM CDT THE [address] [address] PATIENT NAME: CARLOS ALBERTO TORRES MR#/PT#: [id number] Page 2 OPERATIVE REPORT DATE OF OPERATION: 09/04/2020 SURGEON: Lorena Rodriguez MD CO-SURGEON(S): Bran Martell DO NUT THREADER(S): Mohit Dacosta MD PREOPERATIVE DIAGNOSIS: 1. Recurrent colovesical fistula. 2. 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 3. History of right ureteral injury, status post right ureteral reimplant with v esico-psoas hitch. POSTOPERATIVE DIAGNOSIS: Same. OPERATIVE PROCEDURE: 1. Partial cystectomy. 2. Complex cystorrhaphy. 3. Left ureteral stent placement. 4. Excision of foreign body/infected mesh. Please note this is a combination case with Dr. Bran Martell of the Colorectal Surgery Service, who will be dictating his portion separately. ANESTHESIA: General. INDICATIONS FOR OPERATIVE PROCEDURE: Ms. Torres is a female, who has a longstanding history of multiple colovesical fi stulas. She has undergone at least 2 previous colovesical fistula takedown and developed a large recurrent colovesical fistula. She has essentially passed all her stool per her urethra. She has a history of right ureteral injury and unde rwent a right uretero-ureterostomy. She subsequently then underwent a right ure teral reimplant with a psoas hitch. She also has had exploratory laparotomies f or small bowel obstructions and small bowel resection and had a large ventral he rnia that was repaired with permanent mesh. She has had a chronic draining woun d for the past 6 years due to infected mesh. She has been nephrostomy tube depe ndent due to complete passage of her stool per urethra and has been on TPN due t o poor p.o. intake. After extensive discussion of the risks, benefits, and alte rnatives of the procedure, she elected to undergo the aforementioned procedure. The risks, benefits, and alternatives of the procedure were discussed with the patient, who agreed to continue and informed consent was obtained. FINDINGS: 1. Large recurrent colovesical fistula with healthy bleeding edges, which were e xcised to aid in the closure. 2. Chronically infected synthetic mesh, which was excised. DESCRIPTION AND FINDINGS OF OPERATIVE PROCEDURE: After informed consent was obtained, the patient was appropriately identified in the preoperative holding area, taken to the operating room and placed on the OR table in the supine position. A brief time-out was performed to appropriately identify the patient, procedure, allergies, and antibiotics. Next, general endo tracheal anesthesia was induced by the anesthesia staff. The patient was then p laced in the low lithotomy position. All pressure points were appropriately pad ded. She was prepped and draped in the usual sterile fashion. A midline incisi on was marked out from 5 cm below the xiphisternum down to the pubic symphysis. This was incised with a scalpel and carried down through the subcutaneous tissue with Bovie electrocautery. The peritoneal cavity was entered in the virgin te [place] and sharp dissection was used to take down adhesions to the omentum of t he anterior abdominal wall. We then spent approximately 1 hour lysing adhesions of small bowel to the small bowel and small bowel to the abdominal wall as well as to the bladder. We were able to identify the bladder with the vesico-psoas hitch in the right ureteral reimplant. We then mobilized the vesico-vaginal spa ce and identified her vaginal cuff. We were then able to identify the rectovagi nal space and mobilized this. We then circumferentially mobilized the rectum, d id encounter some bleeding from the right internal iliac vein, which was oversew n with 2-0 Vicryl on the UR-6 needle. I then assisted Dr. Martell in stapling off the rectum with a contour device. I then, at this point, turned my attentio n to removal of the fistula. The bladder was clam-shelled through the fistula a nd we were down towards the bladder neck. Posteriorly, we elevated the bladder off the vagina. We then inserted a left ureteral stent, so that we could identi fy the left ureter. A Glidewire was placed through the ureteral orifice and a 6 x 26 double-J ureteral stent was placed in a standard fashion. We then were ab le to mobilize the posterior bladder off the vagina. We then closed the bladder in 2 layers with 3-0 PDS, closing the mucosa muscularis layer running from each apex, met in the middle and tied, and then 2-0 Vicryl running from each apex, m et in the middle and tied. We then irrigated the bladder to ensure that the pari sure was watertight. At this point, I assisted Dr. Martell with mobilizing the colon and the splenic flexure to pull up the colostomy. We then identified the infected piece of mesh and completely excised the infected portion, leaving the incorporated portion in place. Dr. Martell then pulled up his colostomy. Ple ase see his dictated op note for further details. We then closed the fascia wit h number 1 looped PDS running from each apex, met in the middle and tied. The w ound was irrigated and skin edges were approximated with erum. The colostomy was then matured in a standard fashion. Drapes removed and the patient cleaned and dried. She was extubated and transferred to PACU in stable condition. Disposition: The patient will be admitted to the floor for routine postoperativ e management. Salomon catheter will remain in place for 3 weeks and will be remov ed only after negative cystogram. ESTIMATED BLOOD LOSS: 2 L. Drains and tubes: 1. A 19-Peruvian fluted Edy drain through a stab incision in the left lower quad rant. 2. A 20-Peruvian Salomon catheter per urethra. 3. Left 6 x 26 double-J ureteral stent. Complications: None. SPECIMENS REMOVED: 1. Descending colon and rectum to Pathology. 2. Mesh for gross disposal only. Attestation I was present, scrubbed, and participated in the entire procedure with a residen t, and without overlapping cases Lorena Rodriguez MD, FACS Lorena Rodriguez MD HW / MEDQ /[id number] cc: - Lorena Rodriguez MD - Bran Martell DO * Procedures (Immed Post or Bedside) - Mohit Dacosta MD - 09/04/2020 3:22 PM CDT Brief Operative Note Name: Carlos Alberto Torres is a 70 y.o. female : 1950 MR N#: [id number] DATE OF OPERATION: 09/04/2020 Date: 09/04/2020 Preoperative Dx: Colovesical fistula [N32.1] Post-op Diagnosis * Colovesical fistula [N32.1] Procedure(s): EXPLORATORY LAPAROTOMY WITHOUT BIOPSY WITH PARTIAL CYSTECTOMY COLECTOMY WITH COLOPROCTOSTOMY AND COLOSTOMY - PARTIAL COLECTOMY WITH COLOPROCTOSTOMY AND COLOSTOMY - PARTIAL Surgeon(s) and Role: Panel 1: * Lorena Rodriguez MD - Primary * Mohit Dacosta MD - Resident - Assisting * Bran Martell DO - Co-Surgeon Panel 2: * Bran Martell DO - Primary Findings: 1. Colovesical fistula; excised 2. Partial cystectomy with primary closure 3. Left ureteral stent placement Estimated Blood Loss: 2050 ml Specimen(s) Removed/Disposition: ID Type Source Tests Collected by Time Destination 1 : Rectum Tissue Rectum SURGICAL PATHOLOGY Lorena Rodriguez MD 09/05/19 1301 2 : Descending Colon Tissue Colon SURGICAL PATHOLOGY Lorena Rodriguez MD 09/04/2020 1304 3 : TRANSVERSE COLON Tissue Colon SURGICAL PATHOLOGY Lorena Rodriguez M D 09/04/2020 1433 A : Mesh Hardware Mesh CULTURE-ANAEROBIC Lorena Rodriguez MD 09/04/2020 1400 Complications: None Implants: 6 x 26 double J ureteral stent, left side Drains: [address] catheter, 10 cc balloon Disposition: PACU - stable Mohit Dacosta MD Pager [phone] Associated attestation - Lorena Rodriguez MD - 09/05/2020 7:27 AM CDT Attestation I was present, scrubbed, and participated in the entire procedure with a residen t, and without overlapping cases Lorena Rodriguez MD, FACS * Procedures (Immed Post or Bedside) - Sami Bermudez MD - 09/04/2020 3:02 PM CDT Brief Operative Note Name: Carlos Alberto Torres is a 70 y.o. 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 Right internal iliac ve in injury; ligated. HEMA drain left in the pelvis. Large left sided abdominal wall defect. Infected midline abdominal mesh removed. 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 Mobilization of th e splenic flexure and transverse end colostomy. Estimated Blood Loss: 2050 ml Specimen(s) Removed/Disposition: ID Type Source Tests Collected by Time Destination 1 : Rectum Tissue Rectum SURGICAL PATHOLOGY Lorena Rodriguez MD 09/05/19 1301 2 : Descending Colon Tissue Colon SURGICAL PATHOLOGY Lorena Rodriguez MD 09/04/2020 1304 3 : TRANSVERSE COLON Tissue Colon SURGICAL PATHOLOGY Lorena Rodriguez M D 09/04/2020 1433 A : Mesh Hardware Mesh CULTURE-ANAEROBIC Lorena Rodriguez MD 09/04/2020 1400 Complications: None Implants: None Drains: Giovanni-Santoro Drain: #1 = 100 mL Disposition: PACU - stable Sami Bermudez MD Pager [phone] documented in this encounter Plan of Treatment [...] Procedure Name Priority Date/Time Associated Diag nosis POC GLUCOSE 09/21/2020 11:44 AM CDT POC GLUCOSE 09/21/2020 8:13 AM CDT HC PHOSPHOROUS, SERUM Routine 09/21/2020 4:34 AM CDT HC MAGNESIUM Routine 09/21/2020 4:34 AM CDT HC BASIC METABOLIC PANEL Routine 09/21/2020 4:34 AM CDT POC GLUCOSE [...] POC GLUCOSE 09/18/2020 8:40 AM CDT HC CBC,AUTOMATED Routine 09/18/2020 4:24 AM CDT HC PHOSPHOROUS, SERUM Routine 09/18/2020 4:24 AM CDT HC MAGNESIUM Routine 09/18/2020 4:24 AM CDT HC BASIC METABOLIC PANEL Routine 09/18/2020 4:24 AM CDT POC GLUCOSE 09/17/2020 6:18 PM CDT POC GLUCOSE 09/17/2020 12:54 PM CDT HC CBC,AUTOMATED Routine 09/17/2020 4:56 AM CDT HC PHOSPHOROUS, SERUM Routine 09/17/2020 4:56 AM CDT HC MAGNESIUM Routine 09/17/2020 4:56 AM CDT HC BASIC METABOLIC PANEL Routine 09/17/2020 4:56 AM CDT POC GLUCOSE 09/17/2020 4:54 AM CDT POC GLUCOSE 09/17/2020 4:45 AM CDT POC GLUCOSE 09/17/2020 4:42 AM CDT POC GLUCOSE 09/17/2020 4:38 AM CDT POC GLUCOSE 09/16/2020 1:34 PM CDT POC GLUCOSE 09/16/2020 9:48 AM CDT HC CBC,AUTOMATED Routine 09/16/2020 3:57 AM CDT HC PHOSPHOROUS, SERUM Routine 09/16/2020 3:57 AM CDT HC MAGNESIUM Routine 09/16/2020 3:57 AM CDT HC BASIC METABOLIC PANEL Routine 09/16/2020 3:57 AM CDT POC GLUCOSE 09/16/2020 3:51 AM CDT POC GLUCOSE 09/15/2020 9:54 PM CDT HC CBC,AUTOMATED Routine 09/15/2020 4:00 AM CDT HC PHOSPHOROUS, SERUM Routine 09/15/2020 4:00 AM CDT HC MAGNESIUM Routine 09/15/2020 4:00 AM CDT HC CK(CPK OR CREATINE Add on 09/15/2020 KINASE) 4:00 AM CDT HC BASIC METABOLIC PANEL Routine 09/15/2020 4:00 AM CDT POC GLUCOSE 09/15/2020 3:52 AM CDT HC VANCOMYCIN 2HR POST Routine 09/14/2020 DOSE 2:25 PM CDT POC GLUCOSE 09/14/2020 11:41 AM CDT POC GLUCOSE 09/14/2020 8:16 AM CDT HC VANCOMYCIN-TROUGH Routine 09/14/2020 8:10 AM CDT HC CBC,AUTOMATED Routine 09/14/2020 4:17 AM CDT HC PHOSPHOROUS, SERUM Routine 09/14/2020 4:17 AM CDT HC MAGNESIUM Routine 09/14/2020 4:17 AM CDT HC BASIC METABOLIC PANEL Routine 09/14/2020 4:17 AM CDT POC GLUCOSE 09/14/2020 3:19 AM CDT POC GLUCOSE 09/13/2020 9:03 PM CDT POC GLUCOSE 09/13/2020 6:[address] GUIDE ABCESS DRAIN W Routine 09/13/2020 CATH 5:29 PM CDT CULTURE-FUNGAL,OTHER Routine 09/13/2020 5:11 PM CDT GRAM STAIN Routine 09/13/2020 5:11 PM CDT CULTURE-WOUND/TISSUE/FLUI Routine 09/13/2020 D(AEROBIC 5:11 PM CDT ONLY)W/SENSITIVITY CULTURE-ANAEROBIC Routine 09/13/2020 5:11 PM CDT POC GLUCOSE 09/13/2020 11:20 AM CDT CHEST SINGLE VIEW Routine 09/13/2020 10:40 AM CDT POC GLUCOSE 09/13/2020 8:46 AM CDT ECG 12-LEAD STAT 09/13/2020 7:31 AM CDT BLOOD BANK SAMPLE HOLD 09/13/2020 7:30 AM CDT HC LACTIC ACID - BG 09/13/2020 SYRINGE 7:30 AM CDT HC LACTIC ACID - BG STAT 09/13/2020 SYRINGE 6:05 AM CDT HC CBC,AUTOMATED Routine 09/13/2020 2:58 AM CDT HC PHOSPHOROUS, SERUM Routine 09/13/2020 2:58 AM CDT HC MAGNESIUM Routine 09/13/2020 2:58 AM CDT HC BASIC METABOLIC PANEL Routine 09/13/2020 2:58 AM CDT HC LACTIC ACID(LACTATE) STAT 09/12/2020 11:02 PM CDT BLOOD BANK SAMPLE HOLD 09/12/2020 9:15 PM CDT CBC STAT 09/12/2020 9:15 PM CDT HC PHOSPHOROUS, SERUM STAT 09/12/2020 9:15 PM CDT HC MAGNESIUM STAT 09/12/2020 9:15 PM CDT HC COMPREHENSIVE STAT 09/12/2020 METABOLIC PANEL 9:[address] ABD/PELV W CONTRAST Routine 09/12/2020 7:[address] CHEST W CONTRAST Routine 09/12/2020 7:27 PM CDT CONSULT IV THERAPY TEAM STAT 09/12/2020 3:33 PM CDT CONSULT IV THERAPY TEAM Routine 09/12/2020 9:54 AM CDT HC CBC,AUTOMATED Routine 09/12/2020 4:40 AM CDT HC PHOSPHOROUS, SERUM Routine 09/12/2020 4:40 AM CDT HC MAGNESIUM Routine 09/12/2020 4:40 AM CDT HC VANCOMYCIN-TROUGH Add on 09/12/2020 4:40 AM CDT HC BASIC METABOLIC PANEL Routine 09/12/2020 4:40 AM CDT CONSULT IV THERAPY TEAM STAT 09/11/2020 10:18 AM CDT POC GLUCOSE 09/11/2020 8:13 AM CDT HC CBC,AUTOMATED Routine 09/11/2020 4:32 AM CDT HC PHOSPHOROUS, SERUM Routine 09/11/2020 4:32 AM CDT HC MAGNESIUM Routine 09/11/2020 4:32 AM CDT HC BASIC METABOLIC PANEL Routine 09/11/2020 4:32 AM CDT POC GLUCOSE 09/10/2020 5:25 PM CDT POC GLUCOSE 09/10/2020 5:09 PM CDT POC GLUCOSE 09/10/2020 12:34 PM CDT CULTURE-BLOOD STAT 09/10/2020 W/SENSITIVITY 11:00 AM CDT CULTURE-BLOOD STAT 09/10/2020 W/SENSITIVITY 10:50 AM CDT POC GLUCOSE 09/10/2020 9:06 AM CDT HC CBC,AUTOMATED Routine 09/10/2020 4:40 AM CDT HC PHOSPHOROUS, SERUM Routine 09/10/2020 4:40 AM CDT HC MAGNESIUM Routine 09/10/2020 4:40 AM CDT HC BASIC METABOLIC PANEL Routine 09/10/2020 4:40 AM CDT POC GLUCOSE 09/09/2020 10:17 PM CDT POC GLUCOSE 09/09/2020 10:02 PM CDT CONSULT IV THERAPY TEAM Routine 09/09/2020 8:11 AM CDT HC CBC,AUTOMATED Routine 09/09/2020 5:10 AM CDT HC PHOSPHOROUS, SERUM Routine 09/09/2020 5:10 AM CDT HC MAGNESIUM Routine 09/09/2020 5:10 AM CDT HC BASIC METABOLIC PANEL Routine 09/09/2020 5:10 AM CDT HC BLOOD GAS, POC 09/08/2020 12:42 PM CDT CHEST 2 VIEWS STAT 09/08/2020 11:09 AM CDT CULTURE-BLOOD STAT 09/08/2020 W/SENSITIVITY 4:30 AM CDT POC GLUCOSE 09/08/2020 4:15 AM CDT HC BLOOD CULTURE STAT 09/08/2020 MOLECULAR DETECTION 4:10 AM CDT CULTURE-BLOOD STAT 09/08/2020 W/SENSITIVITY 4:10 AM CDT HC LACTIC ACID - BG STAT 09/08/2020 SYRINGE 4:10 AM CDT HC PROLCALCITONIN (PROCA) Add on 09/08/2020 3:30 AM CDT HC CBC,AUTOMATED Routine 09/08/2020 3:30 AM CDT HC TRIGLYCERIDE Add on 09/08/2020 3:30 AM CDT HC PHOSPHOROUS, SERUM Routine 09/08/2020 3:30 AM CDT HC MAGNESIUM Routine 09/08/2020 3:30 AM CDT HC HEPATIC FUNCTION PANEL Add on 09/08/2020 3:30 AM CDT HC BASIC METABOLIC PANEL Routine 09/08/2020 3:30 AM CDT POC GLUCOSE 09/07/2020 10:13 PM CDT POC GLUCOSE 09/07/2020 5:39 PM CDT ABDOMEN AP ONLY STAT 09/07/2020 10:22 AM CDT ABDOMEN AP ONLY STAT 09/07/2020 10:08 AM CDT POC GLUCOSE 09/07/2020 8:59 AM CDT HC CBC,AUTOMATED Routine 09/07/2020 3:30 AM CDT HC PHOSPHOROUS, SERUM Routine 09/07/2020 3:30 AM CDT HC MAGNESIUM Routine 09/07/2020 3:30 AM CDT HC BASIC METABOLIC PANEL Routine 09/07/2020 3:30 AM CDT POC GLUCOSE 09/06/2020 9:13 PM CDT POC GLUCOSE 09/06/2020 6:10 PM CDT TRANSFUSE RBC'S Routine 09/06/2020 12:21 PM CDT CBC STAT 09/06/2020 12:20 PM CDT POC GLUCOSE 09/06/2020 11:10 AM CDT TRANSFUSE RBC'S Routine 09/06/2020 8:27 AM CDT HC CBC,AUTOMATED Routine 09/06/2020 3:55 AM CDT HC PHOSPHOROUS, SERUM Routine 09/06/2020 3:55 AM CDT HC MAGNESIUM Routine 09/06/2020 3:55 AM CDT HC BASIC METABOLIC PANEL Routine 09/06/2020 3:55 AM CDT POC GLUCOSE 09/06/2020 3:49 AM CDT POC GLUCOSE 09/05/2020 9:18 PM CDT POC GLUCOSE 09/05/2020 6:01 PM CDT POC GLUCOSE 09/05/2020 1:30 PM CDT POC GLUCOSE 09/05/2020 8:20 AM CDT HC CBC,AUTOMATED Routine 09/05/2020 3:30 AM CDT HC TRIGLYCERIDE Routine 09/05/2020 3:30 AM CDT HC PHOSPHOROUS, SERUM Routine 09/05/2020 3:30 AM CDT HC MAGNESIUM Routine 09/05/2020 3:30 AM CDT HC COMPREHENSIVE Routine 09/05/2020 METABOLIC PANEL 3:30 AM CDT CBC STAT 09/04/2020 8:15 PM CDT HC CBC,AUTOMATED STAT 09/04/2020 3:25 PM CDT HC LACTIC ACID(LACTATE) STAT 09/04/2020 3:25 PM CDT HC BASIC METABOLIC PANEL STAT 09/04/2020 3:25 PM CDT HC GLUCOSE,BG STAT 09/04/2020 1:17 PM CDT HC SODIUM,BG STAT 09/04/2020 1:17 PM CDT HC POTASSIUM, BG STAT 09/04/2020 1:17 PM CDT HC LACTIC ACID - BG STAT 09/04/2020 SYRINGE 1:17 PM CDT HC CALCIUM IONIZED STAT 09/04/2020 1:17 PM CDT HC HEMOGLOBIN (BG) STAT 09/04/2020 1:17 PM CDT HC BLOOD STAT 09/04/2020 GASES;(CALCULATED 02) 1:17 PM CDT HC LEVEL 1 GROSS EXAM Routine 09/04/2020 Colovesi murali fistula 1:01 PM CDT TRANSFUSE RBC'S FILIBERTO 09/04/2020 12:51 PM CDT TRANSFUSE RBC'S FILIBERTO 09/04/2020 12:19 PM CDT HC GLUCOSE,BG STAT 09/04/2020 11:55 AM CDT HC SODIUM,BG STAT 09/04/2020 11:55 AM CDT HC POTASSIUM, BG STAT 09/04/2020 11:55 AM CDT HC CALCIUM IONIZED STAT 09/04/2020 11:55 AM CDT HC HEMOGLOBIN (BG) STAT 09/04/2020 11:55 AM CDT HC BLOOD STAT 09/04/2020 GASES;(CALCULATED 02) 11:55 AM CDT COLECTOMY WITH 09/04/2020 Colovesical fistula COLOPROCTOSTOMY AND 10:34 AM CDT COLOSTOMY - PARTIAL Special Needs 6/9 PER IM FROM [facility] CASE LENGTH 6 HRS - CC 1001 COLECTOMY WITH 09/04/2020 Colovesical fistula COLOPROCTOSTOMY AND 10:34 AM CDT COLOSTOMY - PARTIAL Special Needs 6/9 PER IM FROM [facility] CASE LENGTH 6 HRS - CC 1001 EXPLORATORY LAPAROTOMY 09/04/2020 Colovesical fi stula WITH/ WITHOUT BIOPSY 10:34 AM CDT Special Needs 6/9 PER IM FROM [facility] CASE LENGTH 6 HRS - CC 1001 POC GLUCOSE 09/04/2020 10:22 AM CDT HC [...] AM CDT ECG-SCAN 09/04/2020 12:00 AM CDT documented in this encounter Results * POC GLUCOSE (09/21/2020 11:44 AM CDT) Glucose, POC 117 (H) 70 - 100 MG/DL [facility] Specimen Performing Organization Address City/[facility]/ZIP Code P sid Number [facility] [address] [place] [address] * POC GLUCOSE (09/21/2020 8:13 AM CDT) Glucose, POC 117 (H) 70 - 100 MG/DL [facility] Specimen Performing Organization Address City/[facility] P sid Number [facility] [address] [place] [address] * BASIC METABOLIC PANEL (09/21/2020 4:34 AM CDT) Sodium 138 137 - 147 MMOL/L [facility] Potassium 4.2 3.5 - 5.1 MMOL/L [facility] Chloride 104 98 - 110 MMOL/L [facility] CO2 23 21 - 30 MMOL/L [facility] Anion Gap 11 3 - 12 [facility] Glucose 95 70 - 100 MG/DL [facility] Blood Urea 23 7 - 25 MG/DL [facility] Nitrogen Creatinine 0.73 0.4 - 1.00 MG/DL [facility] Calcium 8.6 8.5 - 10.6 MG/DL [facility] eGFR Non >60 >60 mL/min [facility] Comment: [place]ian The eGFR is not validated f or use in drug dosing adjustments. Continue to use estimated creatinine clearance per dosing reference text. Please contact the Clinical Pharmacist for questions. eGFR >60 >60 mL/min [facility] [place]ian Comment: The eGFR is not validated for use in drug dosing adjustments. Continue to use estimated creatinine clearance per dosing reference text. Please contact the Clinical Pharmacist for questions. Specimen Blood Performing Organization Address City/[facility]/ZIP Code P sid Number [facility] [address] [place] [address] * PHOSPHORUS (09/21/2020 4:34 AM CDT) Phosphorus 3.8 2.0 - 4.5 MG/DL [facility] Specimen Blood Performing Organization Address City/[facility] P sid Number [facility] [address] [place] [address] * MAGNESIUM (09/21/2020 4:34 AM CDT) Magnesium 2.3 1.6 - 2.6 mg/dL [facility] Specimen Blood Performing Organization Address [facility] P sid Number [facility] [address] [place] [id number] * POC GLUCOSE (09/21/2020 4:31 AM CDT) Glucose, POC 91 70 - 100 MG/DL [facility] Specimen Performing Organization Address [facility] P sid Number [facility] [address] [place] [address] * POC GLUCOSE (09/20/2020 8:26 PM CDT) Glucose, POC 127 (H) 70 - 100 MG/DL [facility] Specimen Performing Organization Address [facility] P sid Number [facility] [address] [place] [address] * POC GLUCOSE (09/20/2020 4:52 PM CDT) Glucose, POC 115 (H) 70 - 100 MG/DL [facility] Specimen Performing Organization Address [facility] P sid Number [facility] [address] [place] [address] * POC GLUCOSE (09/20/2020 11:24 AM CDT) Glucose, POC 138 (H) 70 - 100 MG/DL [facility] Specimen Performing Organization Address [facility] Code P sid Number [facility] [address] [place] [address] * POC GLUCOSE (09/20/2020 7:35 AM CDT) Glucose, POC 117 (H) 70 - 100 MG/DL [facility] Specimen Performing Organization Address City/[facility]/ZIP Code P sid Number [facility] [address] [place] [address] * PHOSPHORUS (09/20/2020 4:40 AM CDT) Phosphorus 4.2 2.0 - 4.5 MG/DL [facility] Specimen Blood Performing Organization Address City/[facility] P sid Number [facility] [address] [place] [address] * MAGNESIUM (09/20/2020 4:40 AM CDT) Magnesium 2.2 1.6 - 2.6 mg/dL [facility] Specimen Blood Performing Organization Address [facility] P sid Number [facility] [address] [place] [address] * COMPREHENSIVE METABOLIC PANEL (09/20/2020 4:40 AM CDT) Sodium 137 137 - 147 MMOL/L [facility] Potassium 4.5 3.5 - 5.1 MMOL/L [facility] Chloride 106 98 - 110 MMOL/L [facility] Glucose 100 70 - 100 MG/DL [facility] Blood Urea 21 7 - 25 MG/DL [facility] Nitrogen Creatinine 0.73 0.4 - 1.00 MG/DL [facility] Calcium 8.5 8.5 - 10.6 MG/DL [facility] Total Protein 6.6 6.0 - 8.0 G/DL [facility] Total Bilirubin 0.5 0.3 - 1.2 MG/DL [facility] Albumin 2.5 (L) 3.5 - 5.0 G/DL [facility] Alk Phosphatase 88 25 - 110 U/L [facility] AST (SGOT) 25 7 - 40 U/L [facility] CO2 24 21 - 30 MMOL/L [facility] ALT (SGPT) 19 7 - 56 U/L [facility] Anion Gap 7 3 - 12 [facility] eGFR Non >60 >60 mL/min [facility] Comment: [place] The eGFR is not validated f or use in drug dosing adjustments. Continue to use estimated creatinine clearance per dosing reference text. Please contact the Clinical Pharmacist for questions. eGFR >60 >60 mL/min [facility] [place]ian Comment: The eGFR is not validated for use in drug dosing adjustments. Continue to use estimated creatinine clearance per dosing reference text. Please contact the Clinical Pharmacist for questions. Specimen Blood Performing Organization Address City/[facility]/ZIP Code P sid Number [facility] [address] [place] [address] * POC GLUCOSE (09/19/2020 10:01 PM CDT) Glucose, POC 106 (H) 70 - 100 MG/DL [facility] Specimen Performing Organization Address City/[facility] Code P sid Number [facility] [address] [place] [address] * POC GLUCOSE (09/19/2020 5:41 PM CDT) Glucose, POC 158 (H) 70 - 100 MG/DL [facility] Specimen Performing Organization Address [facility] P sid Number [facility] [address] [place] [address] * PHOSPHORUS (09/19/2020 12:20 PM CDT) Phosphorus 3.7 2.0 - 4.5 MG/DL [facility] Specimen Blood Performing Organization Address [facility] Code P sid Number [facility] [address] [place] [id number] * MAGNESIUM (09/19/2020 12:20 PM CDT) Magnesium 2.1 1.6 - 2.6 mg/dL [facility] Specimen Blood Performing Organization Address [facility] P sid Number [facility] [address] [place] [id number] * BASIC METABOLIC PANEL (09/19/2020 12:20 PM CDT) Sodium 136 (L) 137 - 147 MMOL/L [facility] Potassium 4.5 3.5 - 5.1 MMOL/L [facility] Chloride 106 98 - 110 MMOL/L [facility] CO2 25 21 - 30 MMOL/L [facility] Anion Gap 5 3 - 12 [facility] Glucose 101 (H) 70 - 100 MG/DL [facility] Blood Urea 20 7 - 25 MG/DL [facility] Nitrogen Creatinine 0.67 0.4 - 1.00 MG/DL [facility] Calcium 7.9 (L) 8.5 - 10.6 MG/DL [facility] eGFR Non >60 >60 mL/min [facility] Comment: [place]ian The eGFR is not validated f or use in drug dosing adjustments. Continue to use estimated creatinine clearance per dosing reference text. Please contact the Clinical Pharmacist for questions. eGFR >60 >60 mL/min [facility] [place]ian Comment: The eGFR is not validated for use in drug dosing adjustments. Continue to use estimated creatinine clearance per dosing reference text. Please contact the Clinical Pharmacist for questions. Specimen Blood Performing Organization Address City/State/ZIP Code P sid Number [facility] [address] [place] [address] * POC GLUCOSE (09/19/2020 11:45 AM CDT) Glucose, POC 118 (H) 70 - 100 MG/DL [facility] Specimen Performing Organization Address City/[facility] P sid Number [facility] [address] [place] [address] * POC GLUCOSE (09/19/2020 8:25 AM CDT) Glucose, POC 150 (H) 70 - 100 MG/DL [facility] Specimen Performing Organization Address [facility] P sid Number [facility] [address] [place] [address] * COVID-19 (SARS-COV-2) PCR (09/19/2020 6:50 AM CDT) COVID-19 FLOCKED SWAB [facility] (SARS-CoV-2) NASOPHARYNGEAL PCR Source COVID-19 NOT DETECTED DN-NOT DETECTED [facility] (SARS-CoV-2) Comment: PCR This assay is designed to detect the N2 and E genes of SARS-CoV-2 using nucleic acid amplification. A Not Detected result does not preclude the possibility of SARS-CoV-2 infection since the adequacy of sample collection and/or low viral burden may result in the presence of viral nucleic acids below the analytical sensitivity of this test method. Test results should be used along with other clinical and laboratory data in making the diagnosis. Test parameters have not been validated for screening in asymptomatic patients. This test has not been FDA cleared or approved. This test is authorized for use under the FDA Emergency Use Authorization and performance characteristics have been verified by the [facility] clinical laboratory. Fact sheet for providers: https://www.fda.gov/media/5379 13/download Fact sheet for patients: https://www.fda.gov/media/7206 12/download Specimen Flocked Swab - Nasopharyngeal Performing Organization Address City/[facility] Code P sid Number [facility] [address] [place] [address] * POC GLUCOSE (09/18/2020 3:45 PM CDT) Glucose, POC 106 (H) 70 - 100 MG/DL [facility] Specimen Performing Organization Address City/[facility] P sid Number [facility] [address] [place] [phone] * POC GLUCOSE (09/18/2020 8:40 AM CDT) Glucose, POC 121 (H) 70 - 100 MG/DL [facility] Specimen Performing Organization Address [facility] P sid Number [facility] [address] [place] [address] * PHOSPHORUS (09/18/2020 4:24 AM CDT) Phosphorus 4.4 2.0 - 4.5 MG/DL [facility] Specimen Blood Performing Organization Address [facility] P sid Number [facility] [address] [place] [address] * MAGNESIUM (09/18/2020 4:24 AM CDT) Magnesium 2.2 1.6 - 2.6 mg/dL [facility] Specimen Blood Performing Organization Address [facility] P sid Number [facility] [address] [place] [address] * CBC (09/18/2020 4:24 AM CDT) White Blood 16.6 (H) 4.5 - 11.0 K/UL [facility] Cells RBC 2.96 (L) 4.0 - 5.0 M/UL [facility] Hemoglobin 8.6 (L) 12.0 - 15.0 GM/DL [facility] Hematocrit 27.1 (L) 36 - 45 % [facility] MCV 91.3 80 - 100 FL [facility] MCH 29.0 26 - 34 PG [facility] MCHC 31.8 (L) 32.0 - 36.0 G/DL [facility] RDW 16.4 (H) 11 - 15 % [facility] Platelet Count 586 (H) 150 - 400 K/UL [facility] MPV 7.7 7 - 11 FL [facility] Specimen Blood Performing Organization Address City/[facility]/ZIP Code P sid Number [facility] [address] [place] [address] * BASIC METABOLIC PANEL (09/18/2020 4:24 AM CDT) Sodium 138 137 - 147 MMOL/L [facility] Potassium 4.6 3.5 - 5.1 MMOL/L [facility] Chloride 105 98 - 110 MMOL/L [facility] CO2 25 21 - 30 MMOL/L [facility] Anion Gap 8 3 - 12 [facility] Glucose 108 (H) 70 - 100 MG/DL [facility] Blood Urea 19 7 - 25 MG/DL [facility] Nitrogen Creatinine 0.59 0.4 - 1.00 MG/DL [facility] Calcium 8.6 8.5 - 10.6 MG/DL [facility] eGFR Non >60 >60 mL/min [facility] Comment: [place] The eGFR is not validated f or use in drug dosing adjustments. Continue to use estimated creatinine clearance per dosing reference text. Please contact the Clinical Pharmacist for questions. eGFR >60 >60 mL/min [facility] [place] Comment: The eGFR is not validated for use in drug dosing adjustments. Continue to use estimated creatinine clearance per dosing reference text. Please contact the Clinical Pharmacist for questions. Specimen Blood Performing Organization Address [facility]/ZIP [facility] P sid Number [facility] [address] [place] [address] * POC GLUCOSE (09/17/2020 6:18 PM CDT) Glucose, POC 119 (H) 70 - 100 MG/DL [facility] Specimen Performing Organization Address City/[facility]/ZIP Code P sid Number [facility] [address] [place] [address] * POC GLUCOSE (09/17/2020 12:54 PM CDT) Glucose, POC 124 (H) 70 - 100 MG/DL [facility] Specimen Performing Organization Address City/[facility] Code P sid Number [facility] [address] [place] [address] * PHOSPHORUS (09/17/2020 4:56 AM CDT) Phosphorus 3.4 2.0 - 4.5 MG/DL [facility] Specimen Blood Performing Organization Address City/[facility] Code P sid Number [facility] [address] [place] [address] * MAGNESIUM (09/17/2020 4:56 AM CDT) Magnesium 2.1 1.6 - 2.6 mg/dL [facility] Specimen Blood Performing Organization Address City/[facility] Code P sid Number [facility] [address] [place] [address] * CBC (09/17/2020 4:56 AM CDT) White Blood 17.0 (H) 4.5 - 11.0 K/UL [facility] Cells RBC 2.79 (L) 4.0 - 5.0 M/UL [facility] Hemoglobin 8.4 (L) 12.0 - 15.0 GM/DL [facility] Hematocrit 25.4 (L) 36 - 45 % [facility] MCV 91.3 80 - 100 FL [facility] MCH 30.2 26 - 34 PG [facility] MCHC 33.1 32.0 - 36.0 G/DL [facility] RDW 16.0 (H) 11 - 15 % [facility] Platelet Count 557 (H) 150 - 400 K/UL [facility] MPV 7.8 7 - 11 FL [facility] Specimen Blood Performing Organization Address [facility] Code P sid Number [facility] [address] [place] [address] * BASIC METABOLIC PANEL (09/17/2020 4:56 AM CDT) Sodium 139 137 - 147 MMOL/L [facility] Potassium 4.6 3.5 - 5.1 MMOL/L [facility] Chloride 108 98 - 110 MMOL/L [facility] CO2 25 21 - 30 MMOL/L [facility] Anion Gap 6 3 - 12 [facility] Glucose 107 (H) 70 - 100 MG/DL [facility] Blood Urea 18 7 - 25 MG/DL [facility] Nitrogen Creatinine 0.61 0.4 - 1.00 MG/DL [facility] Calcium 8.3 (L) 8.5 - 10.6 MG/DL MAIN LAB eGFR Non >60 >60 mL/min MAIN LAB Comment: [place]ian The eGFR is not validated f or use in drug dosing adjustments. Continue to use estimated creatinine clearance per dosing reference text. Please contact the Clinical Pharmacist for questions. eGFR >60 >60 mL/min MAIN LAB [place]ian Comment: The eGFR is not validated for use in drug dosing adjustments. Continue to use estimated creatinine clearance per dosing reference text. Please contact the Clinical Pharmacist for questions. Specimen Blood Performing Organization Address City/[facility]/ZIP Code P sid Number MAIN LAB [address] [place] [address] * POC GLUCOSE (09/17/2020 4:54 AM CDT) Glucose, POC 113 (H) 70 - 100 MG/DL MAIN LAB Specimen Performing Organization Address [facility] P sid Number MAIN LAB [address] [place] [address] * POC GLUCOSE (09/17/2020 4:45 AM CDT) Glucose, POC 132 (H) 70 - 100 MG/DL [facility] Specimen Performing Organization Address [facility] P sid Number [facility] [address] [place] [address] * POC GLUCOSE (09/17/2020 4:42 AM CDT) Glucose, POC 546 (HH) 70 - 100 MG/DL [facility] Specimen Performing Organization Address [facility] P sid Number [facility] [address] [place] [address] * POC GLUCOSE (09/17/2020 4:38 AM CDT) Glucose, POC >600 (HH) 70 - 100 MG/DL MAIN LAB Specimen Performing Organization Address [facility] P sid Number MAIN LAB [address] [place] [address] * POC GLUCOSE (09/16/2020 1:34 PM CDT) Glucose, POC 137 (H) 70 - 100 MG/DL [facility] Specimen Performing Organization Address [facility] Code P sid Number MAIN LAB [address] [place] [address] * POC GLUCOSE (09/16/2020 9:48 AM CDT) Glucose, POC 131 (H) 70 - 100 MG/DL [facility] Specimen Performing Organization Address [facility] P sid Number [facility] [address] [place] [address] * PHOSPHORUS (09/16/2020 3:57 AM CDT) Phosphorus 2.6 2.0 - 4.5 MG/DL [facility] Specimen Blood Performing Organization Address City/[facility] P sid Number [facility] [address] [place] [address] * MAGNESIUM (09/16/2020 3:57 AM CDT) Magnesium 2.1 1.6 - 2.6 mg/dL MAIN LAB Specimen Blood Performing Organization Address [facility] P sid Number MAIN LAB [address] [place] [id number] * CBC (09/16/2020 3:57 AM CDT) White Blood 17.7 (H) 4.5 - 11.0 K/UL MAIN LAB Cells RBC 2.59 (L) 4.0 - 5.0 M/UL [facility] Hemoglobin 7.9 (L) 12.0 - 15.0 GM/DL [facility] Hematocrit 23.7 (L) 36 - 45 % [facility] MCV 91.4 80 - 100 FL MAIN LAB MCH 30.7 26 - 34 PG MAIN LAB MCHC 33.5 32.0 - 36.0 G/DL MAIN LAB RDW 15.9 (H) 11 - 15 % [facility] Platelet Count 472 (H) 150 - 400 K/UL MAIN LAB MPV 8.1 7 - 11 FL MAIN LAB Specimen Blood Performing Organization Address [facility] Code P sid Number MAIN LAB [address] [place] [id number] * BASIC METABOLIC PANEL (09/16/2020 3:57 AM CDT) Pathologist [facility] Sodium 137 137 - 147 MMOL/L [facility] Potassium 4.4 3.5 - 5.1 MMOL/L [facility] Chloride 108 98 - 110 MMOL/L [facility] CO2 23 21 - 30 MMOL/L [facility] Anion Gap 6 3 - 12 [facility] Glucose 122 (H) 70 - 100 MG/DL [facility] Blood Urea 15 7 - 25 MG/DL [facility] Nitrogen Creatinine 0.63 0.4 - 1.00 MG/DL [facility] Calcium 8.0 (L) 8.5 - 10.6 MG/DL [facility] eGFR Non >60 >60 mL/min [facility] Comment: [place]ian The eGFR is not validated f or use in drug dosing adjustments. Continue to use estimated creatinine clearance per dosing reference text. Please contact the Clinical Pharmacist for questions. eGFR >60 >60 mL/min [facility] [place]ian Comment: The eGFR is not validated for use in drug dosing adjustments. Continue to use estimated creatinine clearance per dosing reference text. Please contact the Clinical Pharmacist for questions. Specimen Blood Performing Organization Address City/[facility]/ZIP Code P sid Number MAIN LAB [address] [place] [id number] * POC GLUCOSE (09/16/2020 3:51 AM CDT) Glucose, POC 126 (H) 70 - 100 MG/DL [facility] Specimen Performing Organization Address City/[facility]/ZIP Code P sid Number MAIN LAB [address] [place] [address] * POC GLUCOSE (09/15/2020 9:54 PM CDT) Glucose, POC 91 70 - 100 MG/DL [facility] Specimen Performing Organization Address City/[facility]/ZIP [facility] P sid Number [facility] [address] [place] [address] * CREATINE KINASE-CPK (09/15/2020 4:00 AM CDT) Creatine Kinase 24 21 - 215 U/L MAIN LAB Specimen Performing Organization Address City/[facility]/ZIP Code P sid Number MAIN LAB [address] [place] [address] * PHOSPHORUS (09/15/2020 4:00 AM CDT) Phosphorus 3.0 2.0 - 4.5 MG/DL [facility] Specimen Blood Performing Organization Address City/[facility]/ZIP Code P sid Number [facility] [address] [place] [address] * MAGNESIUM (09/15/2020 4:00 AM CDT) Magnesium 2.2 1.6 - 2.6 mg/dL [facility] Specimen Blood Performing Organization Address City/[facility]/ZIP Code P sid Number [facility] [address] [place] [address] * CBC (09/15/2020 4:00 AM CDT) White Blood 17.3 (H) 4.5 - 11.0 K/UL [facility] Cells RBC 2.51 (L) 4.0 - 5.0 M/UL [facility] Hemoglobin 7.4 (L) 12.0 - 15.0 GM/DL [facility] Hematocrit 23.3 (L) 36 - 45 % [facility] MCV 92.8 80 - 100 FL [facility] MCH 29.7 26 - 34 PG [facility] MCHC 32.0 32.0 - 36.0 G/DL [facility] RDW 15.9 (H) 11 - 15 % [facility] Platelet Count 432 (H) 150 - 400 K/UL [facility] MPV 8.2 7 - 11 FL [facility] Specimen Blood Performing Organization Address [facility] Code P sid Number [facility] [address] [place] [address] * BASIC METABOLIC PANEL (09/15/2020 4:00 AM CDT) Sodium 139 137 - 147 MMOL/L [facility] Potassium 3.6 3.5 - 5.1 MMOL/L [facility] Chloride 108 98 - 110 MMOL/L [facility] CO2 22 21 - 30 MMOL/L [facility] Anion Gap 9 3 - 12 [facility] Glucose 116 (H) 70 - 100 MG/DL [facility] Blood Urea 15 7 - 25 MG/DL [facility] Nitrogen Creatinine 0.65 0.4 - 1.00 MG/DL [facility] Calcium 7.7 (L) 8.5 - 10.6 MG/DL [facility] eGFR Non >60 >60 mL/min [facility] Comment: [place]ian The eGFR is not validated f or use in drug dosing adjustments. Continue to use estimated creatinine clearance per dosing reference text. Please contact the Clinical Pharmacist for questions. eGFR >60 >60 mL/min [facility] [place]ian Comment: The eGFR is not validated for use in drug dosing adjustments. Continue to use estimated creatinine clearance per dosing reference text. Please contact the Clinical Pharmacist for questions. Specimen Blood Performing Organization Address City/[facility]/ZIP Code P sid Number [facility] [address] [place] [address] * POC GLUCOSE (09/15/2020 3:52 AM CDT) Glucose, POC 121 (H) 70 - 100 MG/DL [facility] Specimen Performing Organization Address [facility] P sid Number [facility] [address] [place] [address] * VANCOMYCIN 2HR POST DOSE (09/14/2020 2:25 PM CDT) Vancomycin 2HR 30.7 ug/mL [facility] POST Dose Specimen Blood Performing Organization Address [facility] P sid Number [facility] [address] [place] [address] * POC GLUCOSE (09/14/2020 11:41 AM CDT) Glucose, POC 158 (H) 70 - 100 MG/DL [facility] Specimen Performing Organization Address [facility] P sid Number [facility] [address] [place] [address] * POC GLUCOSE (09/14/2020 8:16 AM CDT) Glucose, POC 124 (H) 70 - 100 MG/DL [facility] Specimen Performing Organization Address [facility] P sid Number [facility] [address] [place] [address] * VANCOMYCIN TROUGH (09/14/2020 8:10 AM CDT) Vancomycin 14.6 10.0 - 20.0 MCG/ML [facility] Trough Specimen Blood, venous - Blood Performing Organization Address [facility] Code P sid Number MAIN LAB [address] [place] [address] * PHOSPHORUS (09/14/2020 4:17 AM CDT) Phosphorus 3.3 2.0 - 4.5 MG/DL [facility] Specimen Blood Performing Organization Address [facility] Code P sid Number [facility] [address] [place] [address] * MAGNESIUM (09/14/2020 4:17 AM CDT) Magnesium 2.1 1.6 - 2.6 mg/dL [facility] Specimen Blood Performing Organization Address City/[facility]/ZIP Code P sid Number [facility] [address] [place] [address] * CBC (09/14/2020 4:17 AM CDT) White Blood 19.4 (H) 4.5 - 11.0 K/UL [facility] Cells RBC 2.52 (L) 4.0 - 5.0 M/UL [facility] Hemoglobin 7.5 (L) 12.0 - 15.0 GM/DL [facility] Hematocrit 23.3 (L) 36 - 45 % [facility] MCV 92.3 80 - 100 FL [facility] MCH 29.8 26 - 34 PG [facility] MCHC 32.3 32.0 - 36.0 G/DL [facility] RDW 15.3 (H) 11 - 15 % [facility] Platelet Count 410 (H) 150 - 400 K/UL [facility] MPV 8.0 7 - 11 FL [facility] Specimen Blood Performing Organization Address City/[facility]/ZIP Code P sid Number [facility] [address] [place] [address] * BASIC METABOLIC PANEL (09/14/2020 4:17 AM CDT) Sodium 136 (L) 137 - 147 MMOL/L [facility] Potassium 3.6 3.5 - 5.1 MMOL/L [facility] Chloride 105 98 - 110 MMOL/L [facility] CO2 23 21 - 30 MMOL/L [facility] Anion Gap 8 3 - 12 [facility] Glucose 109 (H) 70 - 100 MG/DL [facility] Blood Urea 15 7 - 25 MG/DL [facility] Nitrogen Creatinine 0.75 0.4 - 1.00 MG/DL [facility] Calcium 7.4 (L) 8.5 - 10.6 MG/DL [facility] eGFR Non >60 >60 mL/min [facility] Comment: [place]ian The eGFR is not validated f or use in drug dosing adjustments. Continue to use estimated creatinine clearance per dosing reference text. Please contact the Clinical Pharmacist for questions. eGFR >60 >60 mL/min [facility] [place]ian Comment: The eGFR is not validated for use in drug dosing adjustments. Continue to use estimated creatinine clearance per dosing reference text. Please contact the Clinical Pharmacist for questions. Specimen Blood Performing Organization Address City/State/ZIP Code P sid Number MAIN LAB [address] [place] [address] * POC GLUCOSE (09/14/2020 3:19 AM CDT) Glucose, POC 119 (H) 70 - 100 MG/DL MAIN LAB Specimen Performing Organization Address City/[facility]/ZIP Code P sid Number MAIN LAB [address] [place] [address] * POC GLUCOSE (09/13/2020 9:03 PM CDT) Glucose, POC 93 70 - 100 MG/DL MAIN LAB Specimen Performing Organization Address [facility] P sid Number MAIN LAB [address] [place] [address] * POC GLUCOSE (09/13/2020 6:06 PM CDT) Glucose, POC 86 70 - 100 MG/DL MAIN LAB Specimen Performing Organization Address [facility] P sid Number MAIN LAB [address] [place] [address] * CT GUIDE ABCESS DRAIN W CATH (09/13/2020 5:29 PM CDT) Specimen Impressions Performed At Successful abdominal abscess drain placement as bola led above. [facility] I, Levar Brown M.D., the attending radio logist, was present for the procedure, personally reviewed the images, and for mulated the interpretations and opinions expressed in this report. @TT Finalized by LEVAR BROWN on 09/14/2020 10:5 6 AM. Dictated by LEVAR BROWN on 09/14/2020 10:55 AM. Narrative Performed At [...] fluid. Over an Amplatz wire a 10 Peruvian drain was succ essfully deployed under CT [...] CDT Procedures: 1. CT-guided abdominal abscess drain katty cement 2. Moderate sedation HISTORY: Abdominal abscess [...] fluid. Over an Amplatz wire a 10 Peruvian drain was successfully deployed under CT guidance. [...] in this report. @TT Finalized by LEVAR BROWN on 09/14/2020 10:56 AM. Dictated by LEVAR BROWN on 09/14/2020 10:55 AM. Performing Organization Address City/[facility]/ZIP Code P sid Number [facility] RES[facility] * GRAM STAIN (09/13/2020 5:11 PM CDT) Battery Name GRAM STAIN [facility] Report Status FINAL 09/13/2020 [facility] Specimen FLUID ABSCESS [facility] Description Special NONE [facility] Requests Gram Stain RARE [facility] NEUTROPHILS Gram Stain MODERATE [facility] GRAM POSITIVE COCCI RESEMBLING STREPTOCOCCI Specimen Fluid Performing Organization Address City/[facility]/ZIP Code P sid Number MAIN LAB [address] [place] [address] * CULTURE-FUNGAL,OTHER (09/13/2020 5:11 PM CDT) Battery Name FUNGUS CULTURE [facility] Report Status FINAL 09/18/2020 [facility] Specimen FLUID ABSCESS [facility] Description Special NONE [facility] Requests Culture Light growth MAIN LAB BRENDA GLABRATA (A)Comment: Susceptibility intended for research use only. Specimen Fluid - Abdomen Antibiotic Method Susceptibility Organism Micafungin REMI (MCG/ML), INTERPRETATION, YST 0.015: Susceptible Brenda glabrata Fluconazole REMI (MCG/ML), INTERPRETATION, YST 256: Resistant Brenda glabrata Performing Organization Address [facility] P sid Number MAIN LAB [address] [place] [address] * CULTURE-ANAEROBIC (09/13/2020 5:11 PM CDT) Battery Name ANAEROBE CULTURE [facility] Report Status FINAL 09/18/2020 [facility] Specimen FLUID ABSCESS [facility] Description Special NONE [facility] Requests Culture NO ANAEROBES ISOLATED [facility] Specimen Fluid - Abdomen Performing Organization Address [facility] P sid Number [facility] [address] [place] [address] * CULTURE-WOUND/TISSUE/FLUID(AEROBIC ONLY)W/SENSITIVITY (09/13/2020 5:11 PM CDT) Battery Name ROUTINE CULTURE [facility] Report Status FINAL 09/16/2020 [facility] Specimen FLUID ABSCESS [facility] Description Special NONE [facility] Requests Direct Gram RARE [facility] Stain NEUTROPHILS Direct Gram MODERATE [facility] Stain GRAM POSITIVE COCCI RESEMBL ING STREPTOCOCCI Culture Heavy growth [facility] ENTEROCOCCUS FAECIUM (A) Culture Heavy growth MAIN LAB PSEUDOMONAS AERUGINOSA (A) Specimen Fluid - Abdomen Antibiotic Method Susceptibility Organism Rifampin INTERPRETATION, LEYVA BURNS Resistant Enterococcus faecium Linezolid INTERPRETATION, LEYVA BURNS Susceptible Enterococcus faecium Ampicillin REMI (MCG/ML), INTERPRETATION, PHX >8: Resistant Enterococcus faecium Vancomycin REMI (MCG/ML), INTERPRETATION, PHX >16: Resistant Enterococcus faecium Gent Synergy REMI (MCG/ML), INTERPRETATION, PHX <=500: Susceptible Enterococcus faecium Daptomycin REMI (MCG/ML), INTERPRETATION, PHX 4: Susceptible Enterococcus faecium Tetracycline REMI (MCG/ML), INTERPRETATION, PHX >8: Resistant Enterococcus faecium Amikacin REMI (MCG/ML), INTERPRETATION, PHX <=8: Susceptible [...] Pseudomonas aeruginosa Piperacil/Tazobactam REMI (MCG/ML), INTERPRETATION, PHX 64/4: Intermediate Pseudomonas aeruginosa Tobramycin REMI (MCG/ML), INTERPRETATION, PHX <=2: Susceptible Pseudomonas aeruginosa Performing Organization Address City/[facility]/ZIP Code P sid Number MAIN LAB [address] [place] [address] * POC GLUCOSE (09/13/2020 11:20 AM CDT) Glucose, POC 107 (H) 70 - 100 MG/DL [facility] Specimen Performing Organization Address City/[facility]/ZIP Code P sid Number MAIN LAB [address] [place] [address] * CHEST SINGLE VIEW (09/13/2020 10:40 AM CDT) Specimen Impressions Performed At 1. Persistent small left pleural effusion with deve lopment of small right [facility] RES[facility] pleural effusion. 2. Increase in bibasilar opacities, w hich may represent atelectasis, edema and/or pneumonia. 3. Stable mild cardiomegaly and inter stitial prominence suggesting pulmonary edema. By my electronic signature, I attest th at I have personally reviewed the images for this examination and formulated the interpretations and opinions expressed in this report Finalized by Cintia Guillen M.D. on 11:28 AM. Dictated by Brayan Brown M.D. on 09/13/2020 10:43 AM. Narrative Performed At CHEST SINGLE VIEW [facility] RES[facility] INDICATION: New oxygen requirement. Con cern for pneumonia. COMPARISON: Chest radiograph 09/08/2020. CT chest from previous day. FINDINGS: Support Devices: Right arm PICC remains in place with tip overlying the low SVC. Lungs/Pleura: Persistent small left wit h development of small right pleural effusions. Increase in bibasilar opacit ies. Persistent interstitial prominence. No pneumothorax. Heart and Mediastinum: The cardiomedias tinal silhouette remains mildly enlarged. Procedure Note Interface, Radiant Results - 09/13/2020 11:31 AM CDT CHEST SINGLE VIEW INDICATION: New oxygen requirement. Concern for pneumonia. COMPARISON: Chest radiograph 09/08/2020. CT chest from previous day. FINDINGS: Support Devices: Right arm PICC remains in place with tip overlying the low SVC. Lungs/Pleura: Persistent small left with development of small right pleural effusions. Increase in bibasilar opacities. Persistent interstitial prominence. No pneumothorax. Heart and Mediastinum: The cardiomediastinal silhouette remains mildly enlarged. IMPRESSION 1. Persistent small left pleural effusi on with development of small right pleural effusion. 2. Increase in bibasilar opacities, whi ch may represent atelectasis, edema and/or pneumonia. 3. Stable mild cardiomegaly and interst itial prominence suggesting pulmonary edema. By my electronic signature, I attest that I have personally reviewed the images for this examination and formulated the interpretations and opinions expressed in this report Finalized by Cintia Guillen M.D. on 09/13/2020 11:28 AM. Dictated by Brayan Brown M.D. on 09/13/2020 10:43 AM. Performing Organization Address City/[facility] Code P sid Number [facility] RAD RESULTS * POC GLUCOSE (09/13/2020 8:46 AM CDT) Glucose, POC 91 70 - 100 MG/DL MAIN LAB Specimen Performing Organization Address [facility] P sid Number MAIN LAB [address] [place] [address] * BLOOD BANK SAMPLE HOLD (09/13/2020 7:30 AM CDT) BB Sample hold IN LAB MAIN LAB Specimen Performing Organization Address [facility] P sid Number MAIN LAB [address] [place] [address] * LACTIC ACID (BG - RAPID LACTATE) (09/13/2020 7:30 AM CDT) Lactic Acid,BG 1.3 0.5 - 2.0 MMOL/L MAIN LAB Specimen Performing Organization Address [facility] P sid Number MAIN LAB [address] [place] [address] * LACTIC ACID (BG - RAPID LACTATE) (09/13/2020 6:05 AM CDT) Lactic Acid,BG 0.9 0.5 - 2.0 MMOL/L MAIN LAB Specimen Blood Performing Organization Address [facility] P sid Number MAIN LAB [address] [place] [address] * PHOSPHORUS (09/13/2020 2:58 AM CDT) Phosphorus 3.5 2.0 - 4.5 MG/DL MAIN LAB Specimen Blood Performing Organization Address [facility] P sid Number MAIN LAB [address] [place] [address] * MAGNESIUM (09/13/2020 2:58 AM CDT) Magnesium 2.0 1.6 - 2.6 mg/dL MAIN LAB Specimen Blood Performing Organization Address [facility] P sid Number MAIN LAB [address] [place] [address] * CBC (09/13/2020 2:58 AM CDT) White Blood 21.1 (H) 4.5 - 11.0 K/UL [facility] MAIN [facility] Cells RBC 2.94 (L) 4.0 - 5.0 M/UL [facility] Hemoglobin 8.8 (L) 12.0 - 15.0 GM/DL [facility]IN [facility] Hematocrit 27.1 (L) 36 - 45 % [facility] MAIN [facility] MCV 92.1 80 - 100 FL [facility] MAIN [facility] MCH 29.9 26 - 34 PG [facility]IN [facility] MCHC 32.5 32.0 - 36.0 G/DL [facility]IN [facility] RDW 15.8 (H) 11 - 15 % [facility]IN [facility] Platelet Count 432 (H) 150 - 400 K/UL [facility]IN [facility] MPV 8.5 7 - 11 FL [facility] MAIN [facility] Specimen Blood Performing Organization Address City/[facility]/ZIP Code P sid Number [facility] MAIN [facility] [address] [place] [address] * BASIC METABOLIC PANEL (09/13/2020 2:58 AM CDT) Pathologist [facility] Sodium 134 (L) 137 - 147 MMOL/L [facility] Potassium 4.2 3.5 - 5.1 MMOL/L [facility] Chloride 100 98 - 110 MMOL/L [facility] CO2 24 21 - 30 MMOL/L [facility] Anion Gap 10 3 - 12 [facility] Glucose 86 70 - 100 MG/DL [facility] Blood Urea 12 7 - 25 MG/DL [facility] Nitrogen Creatinine 0.85 0.4 - 1.00 MG/DL [facility] Calcium 8.0 (L) 8.5 - 10.6 MG/DL [facility]IN [facility] eGFR Non >60 >60 mL/min [facility] Comment: [place]ian The eGFR is not validated f or use in drug dosing adjustments. Continue to use estimated creatinine clearance per dosing reference text. Please contact the Clinical Pharmacist for questions. eGFR >60 >60 mL/min [facility] [place] Comment: The eGFR is not validated for use in drug dosing adjustments. Continue to use estimated creatinine clearance per dosing reference text. Please contact the Clinical Pharmacist for questions. Specimen Blood Performing Organization Address City/[facility]/ZIP [facility] P sid Number [facility] MAIN [facility] [address] [place] [address] * LACTIC ACID(LACTATE) (09/12/2020 11:02 PM CDT) Lactic Acid 0.7 0.5 - 2.0 MMOL/L MAIN LAB Specimen Blood Performing Organization Address [facility] Code P sid Number [facility] MAIN [facility] [address] [place] [address] * BLOOD BANK SAMPLE HOLD (09/12/2020 9:15 PM CDT) BB Sample hold IN LAB MAIN LAB Specimen Arm, Left Performing Organization Address [facility] Code P sid Number [facility] MAIN [facility] [address] [place] [address] * PHOSPHORUS (09/12/2020 9:15 PM CDT) Phosphorus 3.3 2.0 - 4.5 MG/DL MAIN LAB Specimen Performing Organization Address [facility] P sid Number [facility]IN [facility] [address] [place] [address] * MAGNESIUM (09/12/2020 9:15 PM CDT) Magnesium 1.9 1.6 - 2.6 mg/dL MAIN LAB Specimen Performing Organization Address [facility] P sid Number MAIN LAB [address] [place] [address] * CBC (09/12/2020 9:15 PM CDT) White Blood 18.2 (H) 4.5 - 11.0 K/UL MAIN LAB Cells RBC 2.75 (L) 4.0 - 5.0 M/UL [facility] MAIN LAB Hemoglobin 8.4 (L) 12.0 - 15.0 GM/DL MAIN LAB Hematocrit 25.2 (L) 36 - 45 % MAIN LAB MCV 91.6 80 - 100 FL MAIN LAB MCH 30.7 26 - 34 PG MAIN LAB MCHC 33.5 32.0 - 36.0 G/DL MAIN LAB RDW 15.6 (H) 11 - 15 % MAIN LAB Platelet Count 366 150 - 400 K/UL MAIN LAB MPV 8.5 7 - 11 FL MAIN LAB Specimen Performing Organization Address [facility] Code P sid Number MAIN LAB [address] [id number] * COMPREHENSIVE METABOLIC PANEL (09/12/2020 9:15 PM CDT) Sodium 135 (L) 137 - 147 MMOL/L K[facility] MAIN LAB Potassium 4.2 3.5 - 5.1 MMOL/L [facility] MAIN LAB Chloride 102 98 - 110 MMOL/L [facility] MAIN LAB Glucose 95 70 - 100 MG/DL [facility] MAIN LAB Blood Urea 12 7 - 25 MG/DL [facility] MAIN LAB Nitrogen Creatinine 0.89 0.4 - 1.00 MG/DL [facility] MAIN LAB Calcium 7.8 (L) 8.5 - 10.6 MG/DL [facility] MAIN LAB Total Protein 5.8 (L) 6.0 - 8.0 G/DL [facility] MAIN LAB Total Bilirubin 0.9 0.3 - 1.2 MG/DL K[facility] MAIN LAB Albumin 2.3 (L) 3.5 - 5.0 G/DL [facility] MAIN LAB Alk Phosphatase 141 (H) 25 - 110 U/L [facility] MAIN LAB AST (SGOT) 18 7 - 40 U/L [facility] MAIN LAB CO2 23 21 - 30 MMOL/L [facility] MAIN LAB ALT (SGPT) 10 7 - 56 U/L [facility] MAIN LAB Anion Gap 10 3 - 12 K[facility] MAIN LAB eGFR Non >60 >60 mL/min [facility] MAIN LAB Comment: [place] The eGFR is not validated f or use in drug dosing adjustments. Continue to use estimated creatinine clearance per dosing reference text. Please contact the Clinical Pharmacist for questions. eGFR >60 >60 mL/min K[facility] MAIN LAB [place]ian Comment: The eGFR is not validated for use in drug dosing adjustments. Continue to use estimated creatinine clearance per dosing reference text. Please contact the Clinical Pharmacist for questions. Specimen Performing Organization Address City/State/ZIP Code P sid Number K[facility] MAIN LAB [address] [place] [address] * CT ABD/PELV W CONTRAST (09/12/2020 7:27 PM CDT) Specimen [...] urinary bladder is decompre ssed around a Salomon catheter. Normal-appearing rectal stump. There is a [...] The urinary bladder is decompressed around a Salomon catheter. Normal- appearing rectal stump. There is [...] sid Number KU RAD RESULTS * CT CHEST W CONTRAST (09/12/2020 7:27 [...] urinary bladder is decompre ssed around a Salomon catheter. Normal-appearing rectal stump. There is a [...] The urinary bladder is decompressed around a Salomon catheter. Normal- appearing rectal stump. There is [...] sid Number KU RAD RESULTS * VANCOMYCIN TROUGH (09/12/2020 4:40 AM CDT) Vancomycin 16.1 10.0 - 20.0 MCG/ML K[facility] MAIN LAB Trough Specimen Performing Organization Address [facility] Code P sid Number K[facility] MAIN LAB [address] [place] [address] * PHOSPHORUS (09/12/2020 4:40 AM CDT) Phosphorus 3.5 2.0 - 4.5 MG/DL [facility] MAIN LAB Specimen Blood Performing Organization Address City/[facility] P sid Number [facility] MAIN LAB [address] [place] [address] * MAGNESIUM (09/12/2020 4:40 AM CDT) Magnesium 2.1 1.6 - 2.6 mg/dL K[facility] MAIN LAB Specimen Blood Performing Organization Address [facility] P sid Number K[facility] MAIN LAB [address] [place] [address] * CBC (09/12/2020 4:40 AM CDT) White Blood 15.9 (H) 4.5 - 11.0 K/UL [facility] MAIN LAB Cells RBC 3.04 (L) 4.0 - 5.0 M/UL [facility] MAIN LAB Hemoglobin 9.2 (L) 12.0 - 15.0 GM/DL K[facility] MAIN LAB Hematocrit 27.6 (L) 36 - 45 % [facility] MAIN LAB MCV 91.0 80 - 100 FL K[facility] MAIN LAB MCH 30.3 26 - 34 PG [facility] MAIN LAB MCHC 33.3 32.0 - 36.0 G/DL [facility] MAIN LAB RDW 16.0 (H) 11 - 15 % [facility] MAIN LAB Platelet Count 378 150 - 400 K/UL [facility] MAIN LAB MPV 8.8 7 - 11 FL K[facility] MAIN LAB Specimen Blood Performing Organization Address [facility] P sid Number K[facility] MAIN LAB [address] [id number] * BASIC METABOLIC PANEL (09/12/2020 4:40 AM CDT) Sodium 136 (L) 137 - 147 MMOL/L [facility] MAIN LAB Potassium 4.3 3.5 - 5.1 MMOL/L [facility] MAIN LAB Chloride 102 98 - 110 MMOL/L [facility] MAIN LAB CO2 26 21 - 30 MMOL/L [facility] MAIN LAB Anion Gap 8 3 - 12 K[facility] MAIN LAB Glucose 95 70 - 100 MG/DL [facility] MAIN LAB Blood Urea 11 7 - 25 MG/DL [facility] MAIN LAB Nitrogen Creatinine 0.88 0.4 - 1.00 MG/DL [facility] MAIN LAB Calcium 7.8 (L) 8.5 - 10.6 MG/DL [facility] MAIN LAB eGFR Non >60 >60 mL/min [facility] MAIN LAB Comment: [place] The eGFR is not validated f or use in drug dosing adjustments. Continue to use estimated creatinine clearance per dosing reference text. Please contact the Clinical Pharmacist for questions. eGFR >60 >60 mL/min [facility] MAIN LAB [place]ian Comment: The eGFR is not validated for use in drug dosing adjustments. Continue to use estimated creatinine clearance per dosing reference text. Please contact the Clinical Pharmacist for questions. Specimen Blood Performing Organization Address City/State/ZIP Code P sid Number MAIN LAB [address] [place] [address] * POC GLUCOSE (09/11/2020 8:13 AM CDT) Glucose, POC 98 70 - 100 MG/DL [facility] MAIN LAB Specimen Performing Organization Address City/[facility]/ZIP Code P sid Number [facility] MAIN LAB [address] [place] [address] * PHOSPHORUS (09/11/2020 4:32 AM CDT) Phosphorus 5.7 (H) 2.0 - 4.5 MG/DL [facility] MAIN LAB Specimen Blood Performing Organization Address City/[facility] P sid Number [facility] MAIN LAB [address] [place] [address] * MAGNESIUM (09/11/2020 4:32 AM CDT) Magnesium 1.5 (L) 1.6 - 2.6 mg/dL [facility] MAIN LAB Specimen Blood Performing Organization Address City/[facility]/ZIP [facility] P sid Number [facility] MAIN LAB [address] [place] [address] * CBC (09/11/2020 4:32 AM CDT) White Blood 12.9 (H) 4.5 - 11.0 K/UL [facility] MAIN LAB Cells RBC 2.56 (L) 4.0 - 5.0 M/UL [facility] MAIN LAB Hemoglobin 8.0 (L) 12.0 - 15.0 GM/DL [facility] MAIN LAB Hematocrit 23.3 (L) 36 - 45 % [facility] MAIN LAB MCV 91.1 80 - 100 FL [facility] MAIN LAB MCH 31.2 26 - 34 PG [facility] MAIN LAB MCHC 34.3 32.0 - 36.0 G/DL [facility] MAIN LAB RDW 15.7 (H) 11 - 15 % [facility] MAIN LAB Platelet Count 277 150 - 400 K/UL [facility] MAIN LAB MPV 8.7 7 - 11 FL [facility] MAIN LAB Specimen Blood Performing Organization Address City/[facility]/ZIP Code P sid Number [facility] MAIN LAB [address] [place] [address] * BASIC METABOLIC PANEL (09/11/2020 4:32 AM CDT) Sodium 141 137 - 147 MMOL/L [facility] MAIN LAB Potassium 3.2 (L) 3.5 - 5.1 MMOL/L [facility] MAIN LAB Chloride 110 98 - 110 MMOL/L [facility] MAIN LAB CO2 20 (L) 21 - 30 MMOL/L [facility] MAIN LAB Anion Gap 11 3 - 12 K[facility] MAIN LAB Glucose 71 70 - 100 MG/DL [facility] MAIN LAB Blood Urea 10 7 - 25 MG/DL [facility] MAIN LAB Nitrogen Creatinine 0.72 0.4 - 1.00 MG/DL [facility] MAIN LAB Calcium 6.1 (L) 8.5 - 10.6 MG/DL [facility] MAIN LAB eGFR Non >60 >60 mL/min [facility] MAIN LAB Comment: [place]ian The eGFR is not validated f or use in drug dosing adjustments. Continue to use estimated creatinine clearance per dosing reference text. Please contact the Clinical Pharmacist for questions. eGFR >60 >60 mL/min K[facility] MAIN LAB [place]ian Comment: The eGFR is not validated for use in drug dosing adjustments. Continue to use estimated creatinine clearance per dosing reference text. Please contact the Clinical Pharmacist for questions. Specimen Blood Performing Organization Address City/[facility]/ZIP Code P sid Number [facility] MAIN LAB [address] [place] [address] * POC GLUCOSE (09/10/2020 5:25 PM CDT) Glucose, POC 80 70 - 100 MG/DL K[facility] MAIN LAB Specimen Performing Organization Address City/[facility]/ZIP Code P sid Number [facility] MAIN LAB [address] [place] [address] * POC GLUCOSE (09/10/2020 5:09 PM CDT) Glucose, POC 70 70 - 100 MG/DL [facility] MAIN LAB Specimen Performing Organization Address City/[facility]/ZIP Code P sid Number MAIN LAB [address] [place] [address] * POC GLUCOSE (09/10/2020 12:34 PM CDT) Glucose, POC 78 70 - 100 MG/DL K[facility] MAIN LAB Specimen Performing Organization Address City/[facility]/ZIP Code P sid Number MAIN LAB [address] [place] [address] * CULTURE-BLOOD W/SENSITIVITY (09/10/2020 11:00 AM CDT) Battery Name BLOOD CULTURE MAIN LAB Report Status FINAL 09/16/2020 MAIN LAB Specimen BLOOD ARM, RIGHT FA MAIN LAB Description Special NONE MAIN LAB Requests Culture NO GROWTH 5 DAYS MAIN LAB Specimen Blood - Arm, Right Performing Organization Address [facility]/ZIP Code P sid Number MAIN LAB [address] [place] [address] * CULTURE-BLOOD W/SENSITIVITY (09/10/2020 10:50 AM CDT) Battery Name BLOOD CULTURE MAIN LAB Report Status FINAL 09/16/2020 MAIN LAB Specimen BLOOD ARM, LEFT ANTECUBITAL MAIN L AB Description Special NONE MAIN LAB Requests Culture NO GROWTH 5 DAYS KU MAIN LAB Specimen Blood - Arm, Left Performing Organization Address [facility]/ZIP Code P sid Number MAIN LAB [address] [place] [address] * POC GLUCOSE (09/10/2020 9:06 AM CDT) Glucose, POC 69 (L) 70 - 100 MG/DL MAIN LAB Specimen Performing Organization Address City/[facility]/ZIP Code P sid Number MAIN LAB [address] [place] [address] * PHOSPHORUS (09/10/2020 4:40 AM CDT) Phosphorus 3.5 2.0 - 4.5 MG/DL MAIN LAB Specimen Blood Performing Organization Address City/[facility]/ZIP Code P sid Number MAIN LAB [address] [place] [address] * MAGNESIUM (09/10/2020 4:40 AM CDT) Magnesium 2.1 1.6 - 2.6 mg/dL KU MAIN LAB Specimen Blood Performing Organization Address [facility]/ZIP Code P sid Number K[facility] MAIN LAB [address] [place] [address] * CBC (09/10/2020 4:40 AM CDT) White Blood 12.4 (H) 4.5 - 11.0 K/UL KU MAIN LAB Cells RBC 2.66 (L) 4.0 - 5.0 M/UL [facility] MAIN LAB Hemoglobin 8.0 (L) 12.0 - 15.0 GM/DL K[facility] MAIN LAB Hematocrit 24.8 (L) 36 - 45 % [facility] MAIN LAB MCV 93.4 80 - 100 FL KU MAIN LAB MCH 30.3 26 - 34 PG K[facility] MAIN LAB MCHC 32.5 32.0 - 36.0 G/DL [facility] MAIN LAB RDW 15.7 (H) 11 - 15 % K[facility] MAIN LAB Platelet Count 264 150 - 400 K/UL [facility] MAIN LAB MPV 8.5 7 - 11 FL KU MAIN LAB Specimen Blood Performing Organization Address [facility] P sid Number [facility] MAIN LAB [address] [place] [address] * BASIC METABOLIC PANEL (09/10/2020 4:40 AM CDT) Sodium 141 137 - 147 MMOL/L [facility] MAIN LAB Potassium 4.1 3.5 - 5.1 MMOL/L [facility] MAIN LAB Chloride 108 98 - 110 MMOL/L [facility] MAIN LAB CO2 25 21 - 30 MMOL/L [facility] MAIN LAB Anion Gap 8 3 - 12 K[facility] MAIN LAB Glucose 78 70 - 100 MG/DL [facility] MAIN LAB Blood Urea 17 7 - 25 MG/DL [facility] MAIN LAB Nitrogen Creatinine 0.69 0.4 - 1.00 MG/DL [facility] MAIN LAB Calcium 7.7 (L) 8.5 - 10.6 MG/DL K[facility] MAIN LAB eGFR Non >60 >60 mL/min [facility] MAIN LAB Comment: [place]ian The eGFR is not validated f or use in drug dosing adjustments. Continue to use estimated creatinine clearance per dosing reference text. Please contact the Clinical Pharmacist for questions. eGFR >60 >60 mL/min K[facility] MAIN LAB [place]ian Comment: The eGFR is not validated for use in drug dosing adjustments. Continue to use estimated creatinine clearance per dosing reference text. Please contact the Clinical Pharmacist for questions. Specimen Blood Performing Organization Address City/[facility]/ZIP Code P sid Number K[facility] MAIN LAB [address] [place] [address] * POC GLUCOSE (09/09/2020 10:17 PM CDT) Glucose, POC 80 70 - 100 MG/DL [facility] MAIN LAB Specimen Performing Organization Address [facility] P sid Number K[facility] MAIN LAB [address] [place] [address] * POC GLUCOSE (09/09/2020 10:02 PM CDT) Glucose, POC 69 (L) 70 - 100 MG/DL [facility] MAIN LAB Specimen Performing Organization Address [facility] P sid Number [facility] MAIN LAB [address] [place] [address] * PHOSPHORUS (09/09/2020 5:10 AM CDT) Phosphorus 3.4 2.0 - 4.5 MG/DL [facility] MAIN LAB Specimen Blood Performing Organization Address [facility] P sid Number K[facility] MAIN LAB [address] [place] [address] * MAGNESIUM (09/09/2020 5:10 AM CDT) Magnesium 2.2 1.6 - 2.6 mg/dL K[facility] MAIN LAB Specimen Blood Performing Organization Address [facility] P sid Number KU MAIN LAB [address] [id number] * CBC (09/09/2020 5:10 AM CDT) White Blood 11.1 (H) 4.5 - 11.0 K/UL K[facility] MAIN LAB Cells RBC 2.60 (L) 4.0 - 5.0 M/UL [facility] MAIN LAB Hemoglobin 8.1 (L) 12.0 - 15.0 GM/DL K[facility] MAIN LAB Hematocrit 23.7 (L) 36 - 45 % [facility] MAIN LAB MCV 91.2 80 - 100 FL K[facility] MAIN LAB MCH 31.3 26 - 34 PG [facility] MAIN LAB MCHC 34.3 32.0 - 36.0 G/DL [facility] MAIN LAB RDW 15.2 (H) 11 - 15 % K[facility] MAIN LAB Platelet Count 228 150 - 400 K/UL [facility] MAIN LAB MPV 8.5 7 - 11 FL KU MAIN LAB Specimen Blood Performing Organization Address [facility] Code P sid Number MAIN LAB [address] [place] [address] * BASIC METABOLIC PANEL (09/09/2020 5:10 AM CDT) Sodium 144 137 - 147 MMOL/L KU MAIN LAB Potassium 3.7 3.5 - 5.1 MMOL/L [facility] MAIN LAB Chloride 109 98 - 110 MMOL/L [facility] MAIN LAB CO2 29 21 - 30 MMOL/L [facility] MAIN LAB Anion Gap 6 3 - 12 KU MAIN LAB Glucose 116 (H) 70 - 100 MG/DL [facility] MAIN LAB Blood Urea 20 7 - 25 MG/DL [facility] MAIN LAB Nitrogen Creatinine 0.66 0.4 - 1.00 MG/DL K[facility] MAIN LAB Calcium 7.7 (L) 8.5 - 10.6 MG/DL K[facility] MAIN LAB eGFR Non >60 >60 mL/min [facility] MAIN LAB Comment: [place]ian The eGFR is not validated f or use in drug dosing adjustments. Continue to use estimated creatinine clearance per dosing reference text. Please contact the Clinical Pharmacist for questions. eGFR >60 >60 mL/min K[facility] MAIN LAB [place]ian Comment: The eGFR is not validated for use in drug dosing adjustments. Continue to use estimated creatinine clearance per dosing reference text. Please contact the Clinical Pharmacist for questions. Specimen Blood Performing Organization Address City/[facility]/ZIP Code P sid Number MAIN LAB [address] [place] [address] * POC BLOOD GAS ARTERIAL (09/08/2020 12:42 PM CDT) PH-ART-POC 7.46 (H) 7.35 - 7.45 KU MAIN LAB CZE0-DTI-FRY 36 35 - 45 MMHG K[facility] MAIN LAB PO2-ART-POC 56 (L) 80 - 100 MMHG [facility] MAIN LAB Base Ex-ART-POC 2.0 MMOL/L MAIN LAB O2 Sat-ART-POC 90.0 (L) 95 - 99 % MAIN LAB Bicarbonate-ART 26.0 21 - 28 MMOL/L MAIN LAB -POC Specimen Performing Organization Address City/[facility]/ZIP Code P sid Number MAIN LAB [address] [place] [address] * CHEST 2 VIEWS (09/08/2020 11:09 AM [...] on 09/08/2020 11:21 AM. Performing Organization Address City/[facility]/ZIP Code P sid Number KU RAD RESULTS * CULTURE-BLOOD W/SENSITIVITY (09/08/2020 4:30 AM CDT) Battery Name BLOOD CULTURE [facility] MAIN LAB Report Status FINAL 09/14/2020 KU MAIN LAB Specimen BLOOD ARM, LEFT FA KU MAIN LAB Description Special NONE KU MAIN LAB Requests Culture NO GROWTH 5 DAYS KU MAIN LAB Specimen Blood - Arm, Left Performing Organization Address [facility]/ZIP Code P sid Number [facility] MAIN LAB [address] [place] [address] * POC GLUCOSE (09/08/2020 4:15 AM CDT) Glucose, POC 107 (H) 70 - 100 MG/DL K[facility] MAIN LAB Specimen Performing Organization Address [facility] P sid Number K[facility] MAIN LAB [address] [place] [address] * BLOOD CULTURE MOLECULAR DETECTION (09/08/2020 4:10 AM CDT) Battery Name BLOOD CULTURE MOLECULAR [facility] MAIN LAB DETECTION Report Status EDITED RESULT - FINAL [facility] MAIN LAB 09/09/2020 Specimen BLOOD BLOOD LINE DRAW RIGHT KU MAIN L AB Description PICC LINE Special NONE KU MAIN LAB Requests Culture Staphylococcus epidermidis KU MAIN LA B detected Culture mecA/mecC gene detected MAIN LAB Methicillin resistant Comment: Specimen was tested [...] Blood - Blood,Line Draw Performing Organization Address City/[facility]/ZIP Code P sid Number MAIN LAB [address] [place] [address] * LACTIC ACID (BG - RAPID LACTATE) (09/08/2020 4:10 AM CDT) Lactic Acid,BG 1.3 0.5 - 2.0 MMOL/L MAIN LAB Specimen Blood Performing Organization Address [facility] P sid Number MAIN LAB [address] [place] [address] * CULTURE-BLOOD W/SENSITIVITY (09/08/2020 4:10 AM CDT) Battery Name BLOOD CULTURE MAIN LAB Report Status FINAL 09/10/2020 MAIN LAB Specimen BLOOD BLOOD LINE DRAW RIGHT MAIN L AB Description PICC LINE Special NONE MAIN LAB Requests Culture POSITIVE SMEAR: [facility] GRAM POSITIVE COCCI RESEMBLING STAPHYLOCOCCI growth in both bottles (A) Comment: CRITICAL VALUE CALLED TO AND READ BACK BY/TIME/TECH TED/.26./MS Culture STAPHYLOCOCCUS EPIDERMIDIS (A) [facility] LAB Specimen Blood - Blood,Line Draw Antibiotic Method Susceptibility Organism Trimethsulfa INTERPRETATION, LEYVA BURNS Resistant Staphylococcus epidermidis Clindamycin REMI (MCG/ML), INTERPRETATION, PHX >2: Resistant Staphylococcus epidermidis Erythromycin REMI (MCG/ML), INTERPRETATION, PHX >4: Resistant Staphylococcus epidermidis Oxacillin REMI (MCG/ML), INTERPRETATION, PHX >1: Resistant Staphylococcus epidermidis Vancomycin REMI (MCG/ML), INTERPRETATION, PHX 1: Susceptible Staphylococcus epidermidis Tetracycline REMI (MCG/ML), INTERPRETATION, PHX 2: Susceptible Staphylococcus epidermidis Gentamicin REMI (MCG/ML), INTERPRETATION, PHX <=2: Susceptible Staphylococcus epidermidis Rifampin REMI (MCG/ML), INTERPRETATION, PHX <=0.5: Susceptible Staphylococcus epidermidis Linezolid REMI (MCG/ML), INTERPRETATION, PHX 1: Susceptible Staphylococcus epidermidis Performing Organization Address [facility] P sid Number MAIN LAB [address] [place] [address] * TRIGLYCERIDE (09/08/2020 3:30 AM CDT) Triglycerides 129 <150 MG/DL KU MAIN LAB Specimen Performing Organization Address [facility] Code P sid Number KU MAIN LAB [address] [place] [address] * PROCALCITONIN (09/08/2020 3:30 AM CDT) Procalcitonin 0.44 ng/mL KU MAIN LAB Comment: Suspected Lower Respiratory Tract Infection: >0.25 ng/mL-Increased likeihood bacterial infection Suspected Sepsis: >0.5 ng/mL-Increased likelihood sepsis >2.0 ng/mL-High risk of sepsis/septic shock Specimen Performing Organization Address [facility] Code P sid Number MAIN LAB [address] [place] [address] * LIVER FUNCTION PANEL (09/08/2020 3:30 AM CDT) Total Bilirubin 0.8 0.3 - 1.2 MG/DL KU MAIN LAB Bilirubin, 0.5 (H) <0.4 MG/DL K[facility] MAIN LAB Direct Albumin 2.4 (L) 3.5 - 5.0 G/DL K[facility] MAIN LAB Alk Phosphatase 107 25 - 110 U/L KU MAIN LAB AST (SGOT) 18 7 - 40 U/L K[facility] MAIN LAB ALT (SGPT) 9 7 - 56 U/L K[facility] MAIN LAB Total Protein 5.3 (L) 6.0 - 8.0 G/DL [facility] MAIN LAB Specimen Performing Organization Address [facility] P sid Number K[facility] MAIN LAB [address] [place] [address] * PHOSPHORUS (09/08/2020 3:30 AM CDT) Phosphorus 2.6 2.0 - 4.5 MG/DL K[facility] MAIN LAB Specimen Blood Performing Organization Address City/[facility] Code P sid Number [facility] MAIN LAB [address] [place] [address] * MAGNESIUM (09/08/2020 3:30 AM CDT) Magnesium 2.0 1.6 - 2.6 mg/dL K[facility] MAIN LAB Specimen Blood Performing Organization Address [facility] Code P sid Number [facility] MAIN LAB [address] [place] [address] * BASIC METABOLIC PANEL (09/08/2020 3:30 AM CDT) Pathologist [facility] Sodium 143 137 - 147 MMOL/L K[facility] MAIN LAB Potassium 3.7 3.5 - 5.1 MMOL/L [facility] MAIN LAB Chloride 109 98 - 110 MMOL/L [facility] MAIN LAB CO2 27 21 - 30 MMOL/L [facility] MAIN LAB Anion Gap 7 3 - 12 K[facility] MAIN LAB Glucose 101 (H) 70 - 100 MG/DL [facility] MAIN LAB Blood Urea 19 7 - 25 MG/DL [facility] MAIN LAB Nitrogen Creatinine 0.76 0.4 - 1.00 MG/DL [facility] MAIN LAB Calcium 7.7 (L) 8.5 - 10.6 MG/DL [facility] MAIN LAB eGFR Non >60 >60 mL/min [facility] MAIN LAB Comment: [place]ian The eGFR is not validated f or use in drug dosing adjustments. Continue to use estimated creatinine clearance per dosing reference text. Please contact the Clinical Pharmacist for questions. eGFR >60 >60 mL/min K[facility] MAIN LAB [place]ian Comment: The eGFR is not validated for use in drug dosing adjustments. Continue to use estimated creatinine clearance per dosing reference text. Please contact the Clinical Pharmacist for questions. Specimen Blood Performing Organization Address City/[facility]/ZIP Code P sid Number [facility] MAIN LAB [address] [place] [address] * CBC (09/08/2020 3:30 AM CDT) Pathologist [facility] White Blood 11.9 (H) 4.5 - 11.0 K/UL [facility] MAIN LAB Cells RBC 2.74 (L) 4.0 - 5.0 M/UL [facility] MAIN LAB Hemoglobin 8.4 (L) 12.0 - 15.0 GM/DL [facility] MAIN LAB Hematocrit 24.8 (L) 36 - 45 % [facility] MAIN LAB MCV 90.7 80 - 100 FL [facility] MAIN LAB MCH 30.5 26 - 34 PG [facility] MAIN LAB MCHC 33.7 32.0 - 36.0 G/DL [facility] MAIN LAB RDW 15.2 (H) 11 - 15 % K[facility] MAIN LAB Platelet Count 211 150 - 400 K/UL [facility] MAIN LAB MPV 9.0 7 - 11 FL [facility] MAIN LAB Specimen Blood Performing Organization Address City/[facility]/ZIP Code P sid Number [facility] MAIN LAB [address] [id number] * POC GLUCOSE (09/07/2020 10:13 PM CDT) Glucose, POC 86 70 - 100 MG/DL [facility] MAIN LAB Specimen Performing Organization Address City/State/ZIP Code P sid Number [facility] MAIN LAB [address] [place] [address] * POC GLUCOSE (09/07/2020 5:39 PM CDT) Glucose, POC 107 (H) 70 - 100 MG/DL MAIN LAB Specimen Performing Organization Address City/[facility]/ZIP Code P sid Number [facility] MAIN LAB [address] [place] [address] * ABDOMEN AP ONLY (09/07/2020 10:22 AM CDT) Specimen Impressions Performed At Intragastric tube placement. [facility] RAD RESULTS Finalized by Smith Parker on [...] P sid Number KU RAD RESULTS * ABDOMEN AP ONLY (09/07/2020 10:08 AM CDT) Specimen Impressions Performed At Mild gaseous distention of the stomach. Otherwise, no evidence of bowel [facility] RAD RESULTS obstruction. Finalized by Smith Parker on 09/07/2020 11:57 AM. Dictated by Radha Wolff M.D. on 09/08/19 11:56 AM. Narrative Performed At ABDOMEN AP ONLY [facility] RAD RESULTS Clinical Indication: Female, 70 years o ld. Nausea, ileus. Comparison: CT abdomen/pelvis 07/12/2020 . Findings: Supine abdominal radiograph obtained. B ilateral percutaneous nephrostomy tubes, left nephroureteral stent, and left pel meera percutaneous drain are present. Midline skin erum. Right lower quadr ant ostomy. Mild gaseous distention of the stomach. No dilated loops of small bowel. Left ventrolateral abdominal wall hernia containing bowel. 1Bibasilar air space opacities. Lumbar spondylosis. Procedure Note Interface, Radiant Results - 09/07/2020 12:01 PM CDT ABDOMEN AP ONLY Clinical Indication: Female, 70 years old. Nausea, ileus. Comparison: CT abdomen/pelvis 07/12/2020. Findings: Supine abdominal radiograph obtained. Bilateral percutaneous nephrostomy tubes, left nephroureteral stent, and left pelvic percutaneous drain are present. Midline skin erum. Right lower quadrant ostomy. Mild gaseous distention of the stomach. No dilated loops of small bowel. Left ventrolateral abdominal wall hernia containing bowel. 1Bibasilar airspace opacities. Lumbar spondylosis. IMPRESSION Mild gaseous distention of the stomach. Otherwise, no evidence of bowel obstruction. Finalized by Radha Wolff M.D. on 09/07/2020 11:57 AM. Dictated by Radha Wolff M.D. on 09/07/2020 11:56 AM. Performing Organization Address City/[facility] P sid Number KU RAD RESULTS * POC GLUCOSE (09/07/2020 8:59 AM CDT) Glucose, POC 162 (H) 70 - 100 MG/DL [facility] MAIN LAB Specimen Performing Organization Address City/State/ZIP Code P sid Number [facility] MAIN LAB [address] [place] [address] * PHOSPHORUS (09/07/2020 3:30 AM CDT) Phosphorus 1.9 (L) 2.0 - 4.5 MG/DL [facility] MAIN LAB Specimen Blood Performing Organization Address City/[facility] P sid Number [facility] MAIN LAB [address] [place] [address] * MAGNESIUM (09/07/2020 3:30 AM CDT) Magnesium 2.0 1.6 - 2.6 mg/dL [facility] MAIN LAB Specimen Blood Performing Organization Address City/[facility] Code P sid Number [facility] MAIN LAB [address] [place] [id number] * BASIC METABOLIC PANEL (09/07/2020 3:30 AM CDT) Sodium 138 137 - 147 MMOL/L [facility] MAIN LAB Potassium 3.6 3.5 - 5.1 MMOL/L [facility] MAIN LAB Chloride 107 98 - 110 MMOL/L [facility] MAIN LAB CO2 23 21 - 30 MMOL/L [facility] MAIN LAB Anion Gap 8 3 - 12 [facility] MAIN LAB Glucose 153 (H) 70 - 100 MG/DL [facility] MAIN LAB Blood Urea 23 7 - 25 MG/DL [facility] MAIN LAB Nitrogen Creatinine 0.77 0.4 - 1.00 MG/DL [facility] MAIN LAB Calcium 8.2 (L) 8.5 - 10.6 MG/DL K[facility] MAIN LAB eGFR Non >60 >60 mL/min [facility] Comment: [place]ian The eGFR is not validated f or use in drug dosing adjustments. Continue to use estimated creatinine clearance per dosing reference text. Please contact the Clinical Pharmacist for questions. eGFR >60 >60 mL/min [facility] [place]ian Comment: The eGFR is not validated for use in drug dosing adjustments. Continue to use estimated creatinine clearance per dosing reference text. Please contact the Clinical Pharmacist for questions. Specimen Blood Performing Organization Address City/[facility]/ZIP Code P sid Number [facility] [address] [id number] * CBC (09/07/2020 3:30 AM CDT) White Blood 16.5 (H) 4.5 - 11.0 K/UL [facility] Cells RBC 3.07 (L) 4.0 - 5.0 M/UL [facility] Hemoglobin 9.5 (L) 12.0 - 15.0 GM/DL [facility] Hematocrit 27.6 (L) 36 - 45 % [facility] MCV 89.8 80 - 100 FL [facility] MCH 30.8 26 - 34 PG [facility] MCHC 34.3 32.0 - 36.0 G/DL [facility] RDW 15.3 (H) 11 - 15 % [facility] Platelet Count 231 150 - 400 K/UL [facility] MPV 9.1 7 - 11 FL [facility] Specimen Blood Performing Organization Address City/[facility]/ZIP Code P sid Number [facility] [address] [place] [address] * POC GLUCOSE (09/06/2020 9:13 PM CDT) Glucose, POC 125 (H) 70 - 100 MG/DL [facility] Specimen Performing Organization Address [facility]/ZIP Code P sid Number [facility] [address] [place] [address] * POC GLUCOSE (09/06/2020 6:10 PM CDT) Glucose, POC 125 (H) 70 - 100 MG/DL MAIN LAB Specimen Performing Organization Address City/[facility] Code P sid Number MAIN LAB [address] [place] [address] * TRANSFUSE RBC'S (09/06/2020 12:21 PM CDT) Specimen Blood * TRANSFUSE RBC'S (09/06/2020 12:21 PM CDT) Specimen Blood * CBC (09/06/2020 12:20 PM CDT) White Blood 13.3 (H) 4.5 - 11.0 K/UL [facility] Cells RBC 2.44 (L) 4.0 - 5.0 M/UL [facility] Hemoglobin 7.9 (L) 12.0 - 15.0 GM/DL [facility] Hematocrit 22.6 (L) 36 - 45 % [facility] MCV 92.7 80 - 100 FL [facility] MCH 32.3 26 - 34 PG [facility] MCHC 34.8 32.0 - 36.0 G/DL [facility] RDW 15.5 (H) 11 - 15 % [facility] Platelet Count 228 150 - 400 K/UL [facility] MPV 10.0 7 - 11 FL [facility] Specimen Blood Performing Organization Address City/[facility]/ZIP Code P sid Number [facility] [address] [place] [address] * POC GLUCOSE (09/06/2020 11:10 AM CDT) Glucose, POC 115 (H) 70 - 100 MG/DL [facility] Specimen Performing Organization Address City/[facility] Code P sid Number [facility] [address] [place] [address] * TRANSFUSE RBC'S (09/06/2020 8:27 AM CDT) Specimen Blood * PHOSPHORUS (09/06/2020 3:55 AM CDT) Phosphorus 2.5 2.0 - 4.5 MG/DL MAIN LAB Specimen Blood Performing Organization Address [facility] P sid Number [facility] [address] [place] [address] * MAGNESIUM (09/06/2020 3:55 AM CDT) Magnesium 2.0 1.6 - 2.6 mg/dL [facility] Specimen Blood Performing Organization Address [facility] P sid Number [facility] [address] [place] [address] * BASIC METABOLIC PANEL (09/06/2020 3:55 AM CDT) Sodium 138 137 - 147 MMOL/L [facility] Potassium 3.9 3.5 - 5.1 MMOL/L [facility] Chloride 109 98 - 110 MMOL/L [facility] CO2 22 21 - 30 MMOL/L [facility] Anion Gap 7 3 - 12 [facility] Glucose 117 (H) 70 - 100 MG/DL [facility] Blood Urea 34 (H) 7 - 25 MG/DL [facility] Nitrogen Creatinine 1.19 (H) 0.4 - 1.00 MG/DL [facility] Calcium 7.3 (L) 8.5 - 10.6 MG/DL [facility] eGFR Non 45 (L) >60 mL/min [facility] Comment: [place]ian The eGFR is not validated f or use in drug dosing adjustments. Continue to use estimated creatinine clearance per dosing reference text. Please contact the Clinical Pharmacist for questions. eGFR 55 (L) >60 mL/min [facility] [place]ian Comment: The eGFR is not validated for use in drug dosing adjustments. Continue to use estimated creatinine clearance per dosing reference text. Please contact the Clinical Pharmacist for questions. Specimen Blood Performing Organization Address City/[facility]/ZIP Code P sid Number [facility] [address] [place] [address] * CBC (09/06/2020 3:55 AM CDT) White Blood 13.1 (H) 4.5 - 11.0 K/UL [facility] Cells RBC 1.95 (L) 4.0 - 5.0 M/UL [facility] Hemoglobin 5.9 (LL) 12.0 - 15.0 GM/DL [facility] Comment: CRITICAL VALUE CALLED TO AND READ BACK BY/TIME/TECH KOBI PORTER at 09/06/2020 04:33:50 by [id number] Hematocrit 18.0 (L) 36 - 45 % [facility] MCV 92.1 80 - 100 FL [facility] MCH 30.3 26 - 34 PG [facility] MCHC 32.9 32.0 - 36.0 G/DL MAIN LAB RDW 15.4 (H) 11 - 15 % [facility] Platelet Count 239 150 - 400 K/UL [facility] MPV 10.3 7 - 11 FL [facility] Specimen Blood Performing Organization Address [facility] Code P sid Number [facility] [address] [place] [address] * POC GLUCOSE (09/06/2020 3:49 AM CDT) Glucose, POC 138 (H) 70 - 100 MG/DL [facility] Specimen Performing Organization Address City/[facility]/ZIP [facility] P sid Number [facility] [address] [place] [address] * POC GLUCOSE (09/05/2020 9:18 PM CDT) Glucose, POC 107 (H) 70 - 100 MG/DL [facility] Specimen Performing Organization Address [facility] P sid Number [facility] [address] [place] [address] * POC GLUCOSE (09/05/2020 6:01 PM CDT) Glucose, POC 136 (H) 70 - 100 MG/DL [facility] Specimen Performing Organization Address [facility]/ZIP Code P sid Number [facility] [address] [place] [address] * POC GLUCOSE (09/05/2020 1:30 PM CDT) Glucose, POC 132 (H) 70 - 100 MG/DL [facility] Specimen Performing Organization Address [facility] P sid Number [facility] [address] [place] [address] * POC GLUCOSE (09/05/2020 8:20 AM CDT) Glucose, POC 146 (H) 70 - 100 MG/DL [facility] Specimen Performing Organization Address [facility] P sid Number [facility] [address] [id number] * PHOSPHORUS (09/05/2020 3:30 AM CDT) Phosphorus 4.2 2.0 - 4.5 MG/DL [facility] Specimen Blood Performing Organization Address [facility] Code P sid Number [facility] [address] [phone] * MAGNESIUM (09/05/2020 3:30 AM CDT) Magnesium 1.8 1.6 - 2.6 mg/dL [facility] Specimen Blood Performing Organization Address [facility] P sid Number [facility] [address] [phone] * CBC (09/05/2020 3:30 AM CDT) White Blood 17.5 (H) 4.5 - 11.0 K/UL [facility] Cells RBC 2.89 (L) 4.0 - 5.0 M/UL [facility] Hemoglobin 8.7 (L) 12.0 - 15.0 GM/DL [facility] Hematocrit 25.2 (L) 36 - 45 % [facility] MCV 87.4 80 - 100 FL [facility] MCH 30.0 26 - 34 PG [facility] MCHC 34.3 32.0 - 36.0 G/DL [facility] RDW 15.1 (H) 11 - 15 % [facility] Platelet Count 209 150 - 400 K/UL [facility] MPV 9.9 7 - 11 FL [facility] Specimen Blood Performing Organization Address City/[facility]/ZIP Code P sid Number [facility] [address] [place] [address] * TRIGLYCERIDE (09/05/2020 3:30 AM CDT) Triglycerides 140 <150 MG/DL [facility] Specimen Blood Performing Organization Address City/[facility]/ZIP Code P sid Number [facility] [address] [place] [address] * COMPREHENSIVE METABOLIC PANEL (09/05/2020 3:30 AM CDT) Sodium 136 (L) 137 - 147 MMOL/L [facility] Potassium 4.7 3.5 - 5.1 MMOL/L [facility] Chloride 104 98 - 110 MMOL/L [facility] Glucose 144 (H) 70 - 100 MG/DL [facility] Blood Urea 31 (H) 7 - 25 MG/DL [facility] Nitrogen Creatinine 1.11 (H) 0.4 - 1.00 MG/DL [facility] Calcium 7.6 (L) 8.5 - 10.6 MG/DL [facility] Total Protein 5.3 (L) 6.0 - 8.0 G/DL [facility] Total Bilirubin 2.5 (H) 0.3 - 1.2 MG/DL [facility] Albumin 3.0 (L) 3.5 - 5.0 G/DL [facility] Alk Phosphatase 90 25 - 110 U/L [facility] AST (SGOT) 23 7 - 40 U/L [facility] CO2 20 (L) 21 - 30 MMOL/L [facility] ALT (SGPT) 10 7 - 56 U/L [facility] Anion Gap 12 3 - 12 [facility] eGFR Non 49 (L) >60 mL/min [facility] Comment: [place]ian The eGFR is not validated f or use in drug dosing adjustments. Continue to use estimated creatinine clearance per dosing reference text. Please contact the Clinical Pharmacist for questions. eGFR 59 (L) >60 mL/min [facility] [place]ian Comment: The eGFR is not validated for use in drug dosing adjustments. Continue to use estimated creatinine clearance per dosing reference text. Please contact the Clinical Pharmacist for questions. Specimen Blood Performing Organization Address City/[facility]/ZIP Code P sid Number [facility] [address] [place] [address] * CBC (09/04/2020 8:15 PM CDT) White Blood 20.0 (H) 4.5 - 11.0 K/UL [facility] Cells RBC 2.93 (L) 4.0 - 5.0 M/UL [facility] Hemoglobin 9.2 (L) 12.0 - 15.0 GM/DL [facility] Hematocrit 25.6 (L) 36 - 45 % [facility] MCV 87.2 80 - 100 FL [facility] MCH 31.4 26 - 34 PG [facility] MCHC 36.0 32.0 - 36.0 G/DL [facility] RDW 15.4 (H) 11 - 15 % [facility] Platelet Count 208 150 - 400 K/UL [facility] MPV 10.2 7 - 11 FL [facility] Specimen Blood Performing Organization Address City/State/ZIP Code P sid Number [facility] [address] [place] [address] * LACTIC ACID(LACTATE) (09/04/2020 3:25 PM CDT) Lactic Acid 1.5 0.5 - 2.0 MMOL/L [facility] Specimen Blood Performing Organization Address City/State/ZIP Code P sid Number [facility] [address] [place] [address] * BASIC METABOLIC PANEL (09/04/2020 3:25 PM CDT) Sodium 136 (L) 137 - 147 MMOL/L [facility] Potassium 4.3 3.5 - 5.1 MMOL/L [facility] Chloride 101 98 - 110 MMOL/L [facility] CO2 23 21 - 30 MMOL/L [facility] Anion Gap 12 3 - 12 [facility] Glucose 153 (H) 70 - 100 MG/DL [facility] Blood Urea 30 (H) 7 - 25 MG/DL [facility] Nitrogen Creatinine 1.03 (H) 0.4 - 1.00 MG/DL [facility] Calcium 7.8 (L) 8.5 - 10.6 MG/DL [facility] eGFR Non 53 (L) >60 mL/min [facility] Comment: [place]ian The eGFR is not validated f or use in drug dosing adjustments. Continue to use estimated creatinine clearance per dosing reference text. Please contact the Clinical Pharmacist for questions. eGFR >60 >60 mL/min [facility] [place]ian Comment: The eGFR is not validated for use in drug dosing adjustments. Continue to use estimated creatinine clearance per dosing reference text. Please contact the Clinical Pharmacist for questions. Specimen Blood Performing Organization Address City/[facility]/ZIP Code P sid Number [facility] [address] [place] [address] * CBC (09/04/2020 3:25 PM CDT) White Blood 18.5 (H) 4.5 - 11.0 K/UL [facility] Cells RBC 3.65 (L) 4.0 - 5.0 M/UL [facility] Hemoglobin 11.2 (L) 12.0 - 15.0 GM/DL [facility] Hematocrit 31.9 (L) 36 - 45 % [facility] MCV 87.2 80 - 100 FL [facility] MCH 30.6 26 - 34 PG [facility] MCHC 35.1 32.0 - 36.0 G/DL [facility] RDW 15.0 11 - 15 % [facility] Platelet Count 239 150 - 400 K/UL [facility] MPV 9.7 7 - 11 FL [facility] Specimen Blood Performing Organization Address [facility] P sid Number [facility] [address] [place] [address] * LACTIC ACID (BG - RAPID LACTATE) (09/04/2020 1:17 PM CDT) Lactic Acid,BG 1.0 0.5 - 2.0 MMOL/L [facility] Specimen Blood Performing Organization Address [facility] P sid Number [facility] [address] [place] [address] * POTASSIUM, BG (09/04/2020 1:17 PM CDT) Potassium 4.2 3.5 - 5.1 MMOL/L [facility] Specimen Blood Performing Organization Address City/[facility] Code P sid Number [facility] [address] [phone] * SODIUM,BG (09/04/2020 1:17 PM CDT) Sodium 136 (L) 137 - 147 MMOL/L [facility] Specimen Blood Performing Organization Address City/[facility]/ZIP Code P sid Number [facility] [address] [place] [address] * IONIZED CALCIUM,BG (09/04/2020 1:17 PM CDT) Ionized Calcium 1.12 1.0 - 1.3 MMOL/L [facility] Specimen Blood Performing Organization Address [facility]/ZIP Code P sid Number [facility] [address] [place] [address] * GLUCOSE,BG (09/04/2020 1:17 PM CDT) Glucose 161 (H) 70 - 100 MG/DL [facility] Specimen Blood Performing Organization Address City/[facility]/ZIP Code P sid Number MAIN LAB [address] [place] [address] * BLOOD GASES, ARTERIAL (09/04/2020 1:17 PM CDT) pH-Arterial 7.36 7.35 - 7.45 [facility] pCO2-Arterial 41 35 - 45 MMHG [facility] pO2-Arterial 123 (H) 80 - 100 MMHG [facility] Base 2.1 MMOL/L [facility] Deficit-Arteria l O2 Sat-Arterial 98.2 95 - 99 % [facility] Bicarbonate-ART 22.7 21 - 28 MMOL/L MAIN LAB -Murali Specimen Blood, arterial - Blood Performing Organization Address [facility] P sid Number MAIN LAB [address] [place] [address] * HEMOGLOBIN & HEMATOCRIT, BG (09/04/2020 1:17 PM CDT) Hemoglobin BG 12.3 12.0 - 15.0 GM/DL [facility] Hematocrit BG 38.0 36 - 45 % MAIN LAB Specimen Blood Performing Organization Address City/[facility]/ZIP Code P sid Number MAIN LAB [address] [place] [address] * SURGICAL PATHOLOGY (09/04/2020 1:01 PM CDT) PATHOLOGY [facility] [email or web address] Department of Pathology and Laboratory Medicine [address] [place] [id number] Surgical Pathology Office: [phone] SURGICAL PATHOLOGY REPORT NAME: CARLOS ALBERTO TORRES SURG PATH #: [id number] MR #: [id number] SPECIMEN CLASS: SR BILLING #: [id number] ALT ID #: LOCATION: HC8 DATE OF PROCEDURE: 09/04/2020 AGE: 70 SEX: F DATE RECEIVED: 09/04/2020 : 1950 TIME RECEIVED: 15:14 PHYSICIAN: LORENA RODRIGUEZ MD DATE OF REPORT: 09/05/2020 COPY TO: [...] 5.0 x 3.5 x 1.7 cm Serosa: Trivedi-pink and covered in adhesions a staple line is present on one end of the specimen. Mucosa: The staple line is removed to reveal trivedi-pink mucosa with a lumen that appears decreased in size. Tissue submitted to [facility] Repository Core Facility: No Pharmacy Picking Tech sections are submitted in cassettes A1-A2 (international sales representative sections of mucosa). (amf) B. Fixative: Formalin Labeled: "Descending colon" Measurements: 5.7 x 3.9 x 2.7 cm Serosa: The serosa appears to be entirely covered in mesenteric fat. There is a staple line at end of the specimen. Mucosa: Trivedi-pink with a diverticulum Tissue submitted to [facility] Core Facility: No Pharmacy Picking Tech sections are submitted as follows: B1 Pharmacy Picking Tech sections of diverticulum. B2 Pharmacy Picking Tech sections of mucosa. (amf) C. Fixative: Formalin Labeled: "Transverse colon" Measurements: 12.5 cm in length by 5.0 cm in diameter Serosa: Trivedi-pink with multiple adhesions on the serosal surface. There are staple lines on one end of specimen. Mucosa: Trivedi-pink with multiple diverticula. Tissue submitted to [facility] Core Facility: No Pharmacy Picking Tech sections are submitted as follows: C1 Pharmacy Picking Tech sections of diverticula. C2 Pharmacy Picking Tech sections of unremarkable mucosa. (amf) D. Received fresh labeled with the patient's name and "mesh" is an aggregate of two mesh fragments with adhered soft trivedi-pink tissue measuring 5.3 x 4.1 x 2.0 cm in aggregate. The specimen is submitted for gross only identification. ([facility]) 09/04/2020 Specimen Tissue - Rectum Tissue - Colon Tissue - Colon Performing Organization Address City/[facility] Code P sid Number MAIN LAB [address] [place] [address] * TRANSFUSE RBC'S (09/04/2020 12:51 PM CDT) Specimen Blood * TRANSFUSE RBC'S (09/04/2020 12:51 PM CDT) Specimen Blood * TRANSFUSE RBC'S (09/04/2020 12:19 PM CDT) Specimen Blood * POTASSIUM, BG (09/04/2020 11:55 AM CDT) Potassium 4.2 3.5 - 5.1 MMOL/L MAIN LAB Specimen Blood Performing Organization Address City/[facility] P sid Number MAIN LAB [address] [place] [address] * SODIUM,BG (09/04/2020 11:55 AM CDT) Sodium 137 137 - 147 MMOL/L [facility] Specimen Blood Performing Organization Address City/[facility]/ZIP Code P sid Number [facility] [address] [place] [address] * IONIZED CALCIUM,BG (09/04/2020 11:55 AM CDT) Ionized Calcium 1.22 1.0 - 1.3 MMOL/L [facility] Specimen Blood Performing Organization Address City/[facility] P sid Number [facility] [address] [place] [address] * GLUCOSE,BG (09/04/2020 11:55 AM CDT) Glucose 120 (H) 70 - 100 MG/DL [facility] Specimen Blood Performing Organization Address City/[facility] P sid Number [facility] [address] [phone] * BLOOD GASES, ARTERIAL (09/04/2020 11:55 AM CDT) pH-Arterial 7.39 7.35 - 7.45 [facility] pCO2-Arterial 44 35 - 45 MMHG [facility] pO2-Arterial 92 80 - 100 MMHG [facility] Base 1.0 MMOL/L MAIN LAB Excess-Arterial O2 Sat-Arterial 96.4 95 - 99 % [facility] Bicarbonate-ART 25.3 21 - 28 MMOL/L MAIN LAB -[facility] Specimen Blood, arterial - Blood Performing Organization Address [facility] P sid Number [facility] [address] [place] [address] * HEMOGLOBIN & HEMATOCRIT, BG (09/04/2020 11:55 AM CDT) Hemoglobin BG 12.2 12.0 - 15.0 GM/DL MAIN LAB Hematocrit BG 37.5 36 - 45 % [facility] Specimen Blood Performing Organization Address City/[facility] Code P sid Number MAIN LAB [address] [place] [address] * POC GLUCOSE (09/04/2020 10:22 AM CDT) Glucose, POC 80 70 - 100 MG/DL [facility] Specimen Performing Organization Address City/[facility] Code P sid Number [facility] [address] [phone] * BLOOD TYPE CONFIRMATION - ORDER ONLY IF REQUESTED BY LAB (09/04/2020 10:00 AM CDT) ABO/RH(D) O POS [facility] Specimen Lung Performing Organization Address City/State/ZIP Code P sid Number [facility] [address] [place] [address] * TYPE & CROSSMATCH (09/04/2020 9:19 AM CDT) Units Ordered 4 [facility] Crossmatch 09/07/2020,2359 [facility] Expires Record Check 2ND TYPE REQUIRED [facility] ABO/RH(D) O POS [facility] Antibody Screen NEG [facility] Electronic YES [facility] Crossmatch Unit Number [id number] [facility] Blood Component RBC,ADSOL,LEUKO REDUCED [facility] Type Unit Division 00 [facility] Status OF Unit TRANSFUSED [facility] ISSUE DATE TIME [facility] PRODUCT CODE [id number] [facility] BLOOD TYPE O POS [facility] CODING STATUS 5100 [facility] BLOOD [id number] [facility] EXPIRATION DATE Transfusion OK TO TRANSFUSE [facility] Status Crossmatch COMPATIBLE,ELECTRONIC [facility] Result Unit Number [id number] [facility] Blood Component RBC,ADSOL,LEUKO REDUCED [facility] Type Unit Division 00 [facility] Status OF Unit TRANSFUSED [facility] ISSUE DATE TIME [facility] PRODUCT CODE [id number] [facility] BLOOD TYPE O POS [facility] CODING STATUS 5100 [facility] BLOOD [id number] [facility] EXPIRATION DATE Transfusion OK TO TRANSFUSE [facility] Status Crossmatch COMPATIBLE,ELECTRONIC [facility] Result Unit Number [id number] [facility] Blood Component RBC,ADSOL,LEUKO REDUCED [facility] Type Unit Division 00 [facility] Status OF Unit REL FROM ALLOC [facility] Transfusion OK TO TRANSFUSE [facility] Status Crossmatch COMPATIBLE,ELECTRONIC [facility] Result Unit Number [id number] [facility] Blood Component RBC,ADSOL,LEUKO REDUCED [facility] Type Unit Division 00 [facility] Status OF Unit REL FROM ALLOC [facility] Transfusion OK TO TRANSFUSE [facility] Status Crossmatch COMPATIBLE,ELECTRONIC [facility] Result Unit Number [id number] [facility] Blood Component RBC,ADSOL,LEUKO REDUCED [facility] Type Unit Division 00 [facility] Status OF Unit TRANSFUSED [facility] ISSUE DATE TIME [id number] [facility] PRODUCT CODE [id number] [facility] BLOOD TYPE O POS [facility] CODING STATUS 5100 [facility] BLOOD [id number] [facility] EXPIRATION DATE Transfusion OK TO TRANSFUSE [facility] Status Crossmatch COMPATIBLE,ELECTRONIC [facility] Result Unit Number [id number] M[facility] Blood Component RBC,ADSOL,LEUKO REDUCED,2ND [facility] AB Type CONT. Unit Division 00 [facility] Status OF Unit TRANSFUSED [facility] ISSUE DATE TIME [id number] [facility] BLOOD TYPE O POS [facility] CODING STATUS 5100 [facility] BLOOD [id number] [facility] EXPIRATION DATE Transfusion OK TO TRANSFUSE [facility] Status Crossmatch COMPATIBLE,ELECTRONIC [facility] Result Specimen Midstream Performing Organization Address City/State/ZIP Code P sid Number MAIN LAB [address] [place] [address] * TELEMETRY STRIPS-SCAN (09/04/2020 12:00 AM CDT) [...] ot available. Ordered by an unspecified provider. documented in this encounter Visit Diagnoses Diagnosis Colovesical fistula - Primary Intestinovesical fistula Abscess Cellulitis and abscess of unspecified s ite Acute pulmonary edema (HCC) Acute edema of lung, unspecified Bloodstream infection associated with c entral venous catheter, initial encounter Hypokalemia Hypopotassemia Ileus (HCC) Paralytic ileus Candidal urinary tract infection Candidiasis of other urogenital sites Bacteremia due to methicillin resistant Staphylococcus epidermidis Severe protein-calorie malnutrition (HC C) Other severe protein-calorie malnutriti on J LUIS (acute kidney injury) (HCC) Acute kidney failure, unspecified Acute blood loss anemia Acute posthemorrhagic anemia Tobacco abuse Tobacco use disorder Stage 3a chronic kidney disease (HCC) Malnutrition (HCC) Unspecified protein-calorie malnutritio n documented in this encounter Admitting Diagnoses Diagnosis Colovesical fistula Intestinovesical fistula documented in this encounter Administered Medications Action Date Dose Rate Site Medication Order MAR Action 09/14/2020 3:06 PM CDT 650 mg acetaminophen (TYLENOL) tablet 650 mg Given 650 mg, Oral, EVERY 6 HOURS, First dos e on 09/04/20 at 1945, Until Discontinued, TOTAL ACETAMINOPHEN DOSE NOT TO EXCEED 4GM DAILY 650 mg Given 09/14/2020 9:22 AM CDT 650 mg Given 09/13/2020 8:22 PM CDT 650 mg Given 09/13/2020 3:31 PM CDT 650 mg Given 09/13/2020 9:42 AM CDT 650 mg Given 09/13/2020 2:49 AM CDT 650 mg Given 09/12/2020 8:33 PM CDT 650 mg Given 09/12/2020 3:00 PM CDT 650 mg Given 09/12/2020 9:08 AM CDT 650 mg Given 09/12/2020 4:55 AM CDT 650 mg Given 09/11/2020 9:02 PM CDT 650 mg Given 09/11/2020 3:40 PM CDT 650 mg Given 09/11/2020 10:39 AM CDT 650 mg Given 09/11/2020 3:43 AM CDT 650 mg Given 09/10/2020 8:21 PM CDT 650 mg Given 09/10/2020 9:58 AM CDT 650 mg Given 09/10/2020 4:17 AM CDT 650 mg Given 09/09/2020 9:36 PM CDT 650 mg Given 09/09/2020 11:25 AM CDT 650 mg Given 09/09/2020 4:54 AM CDT 650 mg Given 09/08/2020 8:21 PM CDT 650 mg Given 09/08/2020 2:20 PM CDT 650 mg Given 09/08/2020 8:52 AM CDT 650 mg Given 09/08/2020 3:18 AM CDT 650 mg Given 09/07/2020 9:20 PM CDT 650 mg Given 09/07/2020 8:25 AM CDT 650 mg Given 09/06/2020 12:59 PM CDT 650 mg Given 09/06/2020 7:45 AM CDT 650 mg Given 09/05/2020 6:32 PM CDT 650 mg Given 09/05/2020 12:47 PM CDT 650 mg Given 09/05/2020 8:07 AM CDT 650 mg Given 09/05/2020 2:31 AM CDT 650 mg Given 09/04/2020 8:42 PM CDT acetaminophen (TYLENOL) tablet 650 mg 650 mg, Oral, EVERY 6 HOURS PRN, Starting on Rand 09/14/20 at 1900, Until Fri09/21/20 at 1745, Pain non-opioid: ma y be used alone or in combination with opioid analgesia, TOTAL ACETAMINOPHEN DOSE NOT TO EXCEED 4GM DAILY 09/05/2020 9:13 PM CDT 75 mL/hr Adult Continuous Parenteral Nutrition Given - New (PN) Bag Central, PN PER INSTR, 1 dose, First dose (after last reorder) on Fri 1 at 2030, 1,800 mL 09/06/2020 8:35 PM CDT 75 mL/hr Adult Continuous Parenteral Nutrition Given - New (PN) Bag Central, PN PER INSTR, 1 dose, First dose (after last reorder) on Fri 1 at 2030, 1,800 mL 09/07/2020 9:18 PM CDT 75 mL/hr Adult Continuous Parenteral Nutrition Given - New (PN) Bag Central, PN PER INSTR, 1 dose, First dose (after last reorder) on Fri 1 at 2030, 1,800 mL 09/08/2020 8:21 PM CDT 75 mL/hr Adult Continuous Parenteral Nutrition Given - New (PN) Bag Central, PN PER INSTR, First dose (afte r last reorder) on Fri09/08/20 at 2030, Until Discontinued, 1,800 mL 09/13/2020 8:28 PM CDT 75 mL/hr Adult Continuous Parenteral Nutrition Given - New (PN) Bag Central, PN PER INSTR, 1 dose, First dose on Fri09/13/20 at 2030, 1,800 mL 09/14/2020 9:18 PM CDT 75 mL/hr Adult Continuous Parenteral Nutrition Given - New (PN) Bag Central, PN PER INSTR, 1 dose, First dose (after last reorder) on Fri09/14/20 at 2030, 1,800 mL 09/18/2020 8:44 PM CDT 75 mL/hr Adult Continuous Parenteral Nutrition Given - New (PN) Bag Central, PN PER INSTR, 4 doses, First dose (after last reorder) on Fri09/15/20 at 2030, Last dose on Fri09/18/20 at 2030, 1,800 mL 75 mL/hr Given - New Bag 09/17/2020 8:20 PM CDT 75 mL/hr Given - New Bag 09/16/2020 10:43 PM CDT 75 mL/hr Given - New Bag 09/15/2020 9:42 PM CDT 09/19/2020 9:00 PM CDT 75 mL/hr Adult Continuous Parenteral Nutrition Given - New (PN) Bag Central, PN PER INSTR, 1 dose, First dose (after last reorder) on Fri09/19/20 at 2030, 1,800 mL 09/20/2020 8:20 PM CDT 75 mL/hr Adult Continuous Parenteral Nutrition Given - New (PN) Bag Central, PN PER INSTR, First dose (afte r last reorder) on Fri09/20/20 at 2030, Until Discontinued, 1,800 mL 09/04/2020 4:00 PM CDT 500 mL 200 mL/hr albumin 5% injection 500 mL Given - New 500 mL, 500 mL, Intravenous, at 200 Bag mL/hr, ONCE, 1 dose, On Fri09/04/20 at 1600, PACU (only) 09/17/2020 4:43 PM CDT 30 mL aluminum/magnesium hydroxide (MAALOX) Given oral suspension 30 mL 30 mL, Oral, NEEDED, Starting on Fri09/11/20 at 0645, Until Rand 09/21/20 at 1745, Indigestion/Heartburn, Maximum: 9 0 mL per 24 hours. 30 mL Given 09/17/2020 10:53 AM CDT 30 mL Given 09/16/2020 9:07 AM CDT 30 mL Given 09/15/2020 3:08 PM CDT 30 mL Given 09/12/2020 12:56 PM CDT 30 mL Given 09/11/2020 6:19 AM CDT 09/04/2020 9:50 AM CDT 12 mg alvimopan (ENTEREG) capsule 12 mg Given 12 mg, Oral, ONCE, 1 dose, On Fri09/04/20 at 0900, Give 1 hour prior to surgery., Pre-Op 09/04/2020 8:45 PM CDT bupivacaine DEPARTMENT STORE GENERAL MANAGER 0.0625% in NS 50mL Given - New epidural infusion syr Bag Epidural, DEPARTMENT STORE GENERAL MANAGER, Starting on Fri09/04/20 at 1130, Until Fri09/04/20 at 2254, --FOR EPIDURAL ADMINISTRATION ONLY -- Administer only with DEPARTMENT STORE GENERAL MANAGER Pump -- Only Patient may push DEPARTMENT STORE GENERAL MANAGER button Prescriptio n change can only be made by Anesthesiology Pain Service. NOTE: This is a HIGH ALERT Medication. Dose/Rate Verify 09/04/2020 7:52 PM CDT Given - New Bag 09/04/2020 5:51 PM CDT Given - New Bag 09/04/2020 3:22 PM CDT 09/05/2020 1:43 PM CDT bupivacaine DEPARTMENT STORE GENERAL MANAGER 0.125% in NS 50mL Given - New epidural infusion syr Bag Epidural, DEPARTMENT STORE GENERAL MANAGER, Starting on Fri09/05/20 at 1415, Until Fri09/06/20 at 0719, --FOR EPIDURAL ADMINISTRATION ONLY -- Administer only with DEPARTMENT STORE GENERAL MANAGER Pump -- Only Patient may push DEPARTMENT STORE GENERAL MANAGER button Prescriptio n change can only be made by Anesthesiology Pain Service. NOTE: This is a HIGH ALERT Medication. 09/21/2020 9:07 AM CDT 150 mg buPROPion XL (WELLBUTRIN XL) tablet 150 Given mg 150 mg, Oral, DAILY, First dose on Fri09/05/20 at 0900, Until Discontinued 150 mg Given 09/20/2020 8:27 AM CDT 150 mg Given 09/19/2020 9:09 AM CDT 150 mg Given 09/18/2020 3:38 PM CDT 150 mg Given 09/17/2020 9:08 AM CDT 150 mg Given 09/16/2020 8:58 AM CDT 150 mg Given 09/15/2020 8:35 AM CDT 150 mg Given 09/14/2020 8:13 AM CDT 150 mg Given 09/13/2020 9:36 AM CDT 150 mg Given 09/12/2020 9:08 AM CDT 150 mg Given 09/11/2020 10:39 AM CDT 150 mg Given 09/10/2020 9:57 AM CDT 150 mg Given 09/09/2020 10:41 AM CDT 150 mg Given 09/08/2020 8:46 AM CDT 150 mg Given 09/07/2020 8:24 AM CDT 150 mg Given 09/06/2020 8:58 AM CDT 150 mg Given 09/05/2020 8:07 AM CDT 09/11/2020 8:17 AM CDT 1 g 110 mL/hr calcium gluconate 1 g in sodium chloride Given - New 0.9% (NS) 110 mL IVPB (MB+) Bag 1 g, Intravenous, 110 mL, Administer over 60 Minutes, ONCE, 1 dose, On Fri09/11/20 at 0630, Infuse each 1gm over 1 0 minutes -- Please adjust duration accordingly. 09/13/2020 8:29 PM CDT 2 g 200 mL/hr cefepime (MAXIPIME) 2 g in sodium Given - New chloride 0.9% (NS) 100 mL IVPB (MB+) Bag 2 g, Intravenous, 100 mL, Administer over 30 Minutes, EVERY 12 HOURS, First dose on Fri09/13/20 at 0830, Until Discontinued 2 g 200 mL/hr Given - New Bag 09/13/2020 8:48 AM CDT 09/21/2020 2:31 PM CDT 2 g 200 mL/hr cefepime (MAXIPIME) 2 g in sodium Given - New chloride 0.9% (NS) 100 mL IVPB (MB+) Bag 2 g, Intravenous, 100 mL, Administer over 30 Minutes, EVERY 8 HOURS, First dose (after last modification) on Fri09/14/20 at 0800, Until Discontinued 2 g 200 mL/hr Given - New Bag 09/21/2020 8:37 AM CDT 2 g 200 mL/hr Given - New Bag 09/21/2020 12:26 AM CDT 2 g 200 mL/hr Given - New Bag 09/20/2020 3:42 PM CDT 2 g 200 mL/hr Given - New Bag 09/20/2020 8:21 AM CDT 2 g 200 mL/hr Given - New Bag 09/20/2020 12:42 AM CDT 2 g 200 mL/hr Given - New Bag 09/19/2020 4:18 PM CDT 2 g 200 mL/hr Given - New Bag 09/19/2020 8:59 AM CDT 2 g 200 mL/hr Given - New Bag 09/19/2020 12:46 AM CDT 2 g 200 mL/hr Given - New Bag 09/18/2020 3:37 PM CDT 2 g 200 mL/hr Given - New Bag 09/18/2020 8:15 AM CDT 2 g 200 mL/hr Given - New Bag 09/18/2020 12:16 AM CDT 2 g 200 mL/hr Given - New Bag 09/17/2020 3:23 PM CDT 2 g 200 mL/hr Given - New Bag 09/17/2020 9:04 AM CDT 2 g 200 mL/hr Given - New Bag 09/17/2020 12:09 AM CDT 2 g 200 mL/hr Given - New Bag 09/16/2020 4:29 PM CDT 2 g 200 mL/hr Given - New Bag 09/16/2020 8:58 AM CDT 2 g 200 mL/hr Given - New Bag 09/15/2020 11:54 PM CDT 2 g 200 mL/hr Given - New Bag 09/15/2020 4:49 PM CDT 2 g 200 mL/hr Given - New Bag 09/15/2020 8:31 AM CDT 2 g 200 mL/hr Given - New Bag 09/15/2020 12:13 AM CDT 2 g 200 mL/hr Given - New Bag 09/14/2020 4:15 PM CDT 2 g 200 mL/hr Given - New Bag 09/14/2020 8:12 AM CDT 09/08/2020 8:46 AM CDT 2 g cefTRIAXone (ROCEPHIN) IVP 2 g Given 2 g, Intravenous, EVERY 24 HOURS, 4 doses, First dose on Fri09/05/20 at 0900, Last dose on Fri09/08/20 at 0900, DO NOT Y-SITE WITH LACTATED RINGERS INSTR: IV PUSH -- RECONSTITUTE EACH 1 G M WITH 10 MLS of 0.9% NACL (NS) or STERIL E WATER (SW) or DEXTROSE 5% (D5W) 2 g Given 09/07/2020 8:26 AM CDT 2 g Given 09/06/2020 8:58 AM CDT 2 g Given 09/05/2020 9:09 AM CDT 09/11/2020 10:30 AM CDT 2 g cefTRIAXone (ROCEPHIN) IVP 2 g Given 2 g, Intravenous, EVERY 24 HOURS, First dose on Fri09/09/20 at 0900, Until Discontinued, INSTR: IV PUSH -- RECONSTITUTE EACH 1 GM WITH 10 MLS of 0.9% NACL (NS) or STERILE WATER (SW) or DEXTROSE 5% (D5W) 2 g Given 09/10/2020 9:57 AM CDT 2 g Given 09/09/2020 10:18 AM CDT 09/21/2020 8:39 AM CDT 10 mg cetirizine (ZyrTEC) tablet 10 mg Given 10 mg, Oral, DAILY, First dose on Fri09/05/20 at 0900, Until Discontinued 10 mg Given 09/20/2020 8:27 AM CDT 10 mg Given 09/19/2020 9:00 AM CDT 10 mg Given 09/18/2020 3:38 PM CDT 10 mg Given 09/17/2020 9:03 AM CDT 10 mg Given 09/16/2020 8:58 AM CDT 10 mg Given 09/15/2020 8:35 AM CDT 10 mg Given 09/14/2020 8:13 AM CDT 10 mg Given 09/13/2020 8:43 AM CDT 10 mg Given 09/12/2020 9:08 AM CDT 10 mg Given 09/11/2020 10:40 AM CDT 10 mg Given 09/10/2020 9:58 AM CDT 10 mg Given 09/09/2020 10:20 AM CDT 10 mg Given 09/08/2020 8:44 AM CDT 10 mg Given 09/07/2020 8:25 AM CDT 10 mg Given 09/06/2020 8:59 AM CDT 10 mg Given 09/05/2020 8:07 AM CDT 09/21/2020 2:43 PM CDT 100 mcg Arm, Lef t COVID-19 vacc,mRNA (MODERNA) PF Given immunization 100 mcg 100 mcg, Intramuscular, SUPERINTENDENT DRILLING FROM PHARMACY, 1 dose, On Fri09/06/20 at 0800, -The goal is to administer within 2 days of discharge. -Please reschedul e for 0800 next day until administered. -Patient should have temp <38.3 C (afebrile) for 24 hours. -Please send R x message to pharmacy when ready for dose . -Per hospital protocol, please discuss risks and benefits with patient prior t o administration of the vaccine. -Monitor patient for 15 minutes following administration. -If any questions of patient's clinical stability, confirm o k to give with primary team. 09/21/2020 8:37 AM CDT 550 mg DAPTOmycin (CUBICIN) injection 550 mg Given 550 mg (rounded from 567 mg = 10 mg/kg 56.7 kg Adjusted weight), Intravenous, 11 mL, Administer over 5 Minutes, EVERY 24 HOURS, First dose (after last modification) on Fri09/15/20 at 0800, Until Discontinued 550 mg Given 09/20/2020 8:24 AM CDT 550 mg Given 09/19/2020 8:59 AM CDT 550 mg Given 09/18/2020 8:44 AM CDT 550 mg Given 09/17/2020 9:02 AM CDT 550 mg Given 09/16/2020 8:58 AM CDT 550 mg Given 09/15/2020 9:03 AM CDT 09/21/2020 8:36 AM CDT 40 mg Abdomina l Tissue enoxaparin (LOVENOX) syringe 40 mg Given 40 mg, Subcutaneous, DAILY, First dose on Rand 09/07/20 at 0900, Until Discontinued, For patients undergoing surgery: Consult physician in advance - - enoxaparin is an anticoagulant and may need to be held for 12hr prior to surgery or invasive procedures. NOTE: This is a HIGH ALERT Medication. 40 mg Arm, Right Given 09/20/2020 8:26 AM CDT 40 mg Abdominal Tissue Given 09/19/2020 8:59 AM CDT 40 mg Arm, Left Given 09/18/2020 8:50 AM CDT 40 mg Abdominal Tissue Given 09/17/2020 9:03 AM CDT 40 mg Abdominal Tissue Given 09/16/2020 8:57 AM CDT 40 mg Abdominal Tissue Given 09/15/2020 8:35 AM CDT 40 mg Abdominal Tissue Given 09/14/2020 8:12 AM CDT 40 mg Arm, Right Given 09/13/2020 8:44 AM CDT 40 mg Abdomen:LLQ Given 09/12/2020 9:07 AM CDT 40 mg Abdominal Tissue Given 09/11/2020 10:40 AM CDT 40 mg Abdominal Tissue Given 09/10/2020 9:58 AM CDT 40 mg Abdominal Tissue Given 09/09/2020 10:19 AM CDT 40 mg Abdominal Tissue Given 09/08/2020 8:44 AM CDT 40 mg Abdominal Tissue Given 09/07/2020 8:24 AM CDT 09/16/2020 9:26 AM CDT 50 mcg fentaNYL citrate PF (SUBLIMAZE) Given injection 25-50 mcg 25-50 mcg, Intravenous, EVERY 1 HOUR PRN, Starting on Rand 09/14/20 at 1851, Until Fri09/20/20 at 0620, Pain Injectable 50 mcg Given 09/16/2020 4:07 AM CDT 50 mcg Given 09/15/2020 12:53 PM CDT 09/13/2020 5:00 PM CDT 50 mcg fentaNYL citrate PF (SUBLIMAZE) Given injection INTRA-PROCEDURE MED, Starting on Fri09/13/20 at 1700, Until Fri09/13/20 at 1700 09/08/2020 8:44 AM CDT 200 mg 100 mL/hr fluconazole (DIFLUCAN) 200 mg/NS 100 mL Given - New IVPB Bag 200 mg, Intravenous, 100 mL, Administer over 1 Hours, EVERY 24 HOURS, 1 dose, First dose on Fri09/08/20 at 0900 09/07/2020 8:25 AM CDT 200 mg fluconazole (DIFLUCAN) tablet 200 mg Given 200 mg, Oral, DAILY, First dose on Fri09/05/20 at 0900, Until Discontinued 200 mg Given 09/06/2020 8:58 AM CDT 200 mg Given 09/05/2020 8:07 AM CDT 09/11/2020 10:52 AM CDT 200 mg fluconazole (DIFLUCAN) tablet 200 mg Given 200 mg, Oral, DAILY, First dose on Fri09/09/20 at 0900, Until Discontinued 200 mg Given 09/10/2020 10:14 AM CDT 200 mg Given 09/09/2020 10:44 AM CDT 09/15/2020 8:35 AM CDT 200 mg fluconazole (DIFLUCAN) tablet 200 mg Given 200 mg, Oral, DAILY, First dose on Fri09/13/20 at 0930, Until Discontinued 200 mg Given 09/14/2020 8:13 AM CDT 200 mg Given 09/13/2020 9:36 AM CDT 09/08/2020 2:20 PM CDT 20 mg furosemide (LASIX) injection 20 mg Given 20 mg, 2 mL, Intravenous, ONCE, 1 dose, On Fri09/08/20 at 1430, PROTECT FROM LIGHT 09/12/2020 9:08 AM CDT 40 mg furosemide (LASIX) tablet 40 mg Given 40 mg, Oral, DAILY, First dose on Fri09/05/20 at 0900, Until Discontinued, Hold for systolic BP < 110 40 mg Given 09/11/2020 10:39 AM CDT 40 mg Given 09/10/2020 9:59 AM CDT 40 mg Given 09/09/2020 10:21 AM CDT 40 mg Given 09/07/2020 8:25 AM CDT 40 mg Given 09/06/2020 8:59 AM CDT 40 mg Given 09/05/2020 8:07 AM CDT 09/21/2020 8:39 AM CDT 300 mg gabapentin (NEURONTIN) capsule 300 mg Given 300 mg, Oral, TWICE DAILY, First dose o n 09/05/20 at 1145, Until Discontinued 300 mg Given 09/20/2020 8:17 PM CDT 300 mg Given 09/20/2020 8:27 AM CDT 300 mg Given 09/19/2020 9:05 PM CDT 300 mg Given 09/19/2020 9:00 AM CDT 300 mg Given 09/18/2020 8:52 PM CDT 300 mg Given 09/17/2020 8:15 PM CDT 300 mg Given 09/17/2020 9:03 AM CDT 300 mg Given 09/16/2020 8:57 AM CDT 300 mg Given 09/15/2020 9:44 PM CDT 300 mg Given 09/15/2020 8:35 AM CDT 300 mg Given 09/14/2020 9:21 PM CDT 300 mg Given 09/14/2020 8:12 AM CDT 300 mg Given 09/13/2020 8:18 PM CDT 300 mg Given 09/13/2020 8:43 AM CDT 300 mg Given 09/12/2020 8:30 PM CDT 300 mg Given 09/12/2020 9:08 AM CDT 300 mg Given 09/11/2020 9:02 PM CDT 300 mg Given 09/11/2020 10:38 AM CDT 300 mg Given 09/10/2020 8:22 PM CDT 300 mg Given 09/10/2020 9:59 AM CDT 300 mg Given 09/09/2020 9:36 PM CDT 300 mg Given 09/09/2020 10:20 AM CDT 300 mg Given 09/08/2020 8:21 PM CDT 300 mg Given 09/08/2020 8:44 AM CDT 300 mg Given 09/07/2020 9:20 PM CDT 300 mg Given 09/07/2020 8:25 AM CDT 300 mg Given 09/06/2020 8:59 AM CDT 300 mg Given 09/05/2020 9:11 PM CDT 300 mg Given 09/05/2020 11:31 AM CDT 09/04/2020 3:29 PM CDT 1 mg haloperidol lactate (HALDOL) injection 1 Given mg 1 mg, Intravenous, ONCE PRN, 1 dose, Starting on Fri09/04/20 at 1429, Until Fri09/04/20 at 1529, Other..., Nausea and Vomiting, First line agent. DO NOT ADMINISTER if given intraoperatively, PACU (only) 09/21/2020 2:33 PM CDT 2 tablets HYDROcodone/acetaminophen (NORCO) 5/325 Given mg tablet 1-2 tablet 1-2 tablet, Oral, EVERY 6 HOURS PRN, Starting on Rand 09/14/20 at 1851, Until Rand 09/21/20 at 1745, Pain PO, TOTAL ACETAMINOPHEN DOSE NOT TO EXCEED 4GM DAILY NOTE: This is a HIGH ALERT Medication. 2 tablets Given 09/21/2020 9:09 AM CDT 2 tablets Given 09/20/2020 10:14 AM CDT 2 tablets Given 09/19/2020 9:05 PM CDT 1 tablet Given 09/19/2020 2:34 PM CDT 1 tablet Given 09/19/2020 9:46 AM CDT 2 tablets Given 09/19/2020 3:50 AM CDT 2 tablets Given 09/18/2020 3:36 PM CDT 2 tablets Given 09/18/2020 8:47 AM CDT 2 tablets Given 09/18/2020 12:16 AM CDT 1 tablet Given 09/16/2020 4:29 PM CDT 1 tablet Given 09/16/2020 3:23 PM CDT 2 tablets Given 09/15/2020 10:52 PM CDT 1 tablet Given 09/15/2020 4:54 PM CDT 1 tablet Given 09/15/2020 3:04 PM CDT 1 tablet Given 09/15/2020 9:09 AM CDT 2 tablets Given 09/14/2020 9:21 PM CDT 09/04/2020 7:48 PM CDT 0.5 mg HYDROmorphone injection (DILAUDID) 0.5 Given mg 0.5 mg, Intravenous, EVERY 2 HOURS PRN , Starting on 09/04/20 at 1026, Until Fri09/04/20 at 1949, Pain Injectable, Give for inadequate pain control with Epidural PCEA. 09/17/2020 4:43 PM CDT 1 mg HYDROmorphone injection (DILAUDID) 0.5-1 Given mg 0.5-1 mg, Intravenous, EVERY 2 HOURS PRN, Starting on Fri09/04/20 at 2155, Until Fri09/20/20 at 0620, Pain Injectable 1 mg Given 09/17/2020 2:38 PM CDT 1 mg Given 09/17/2020 10:57 AM CDT 1 mg Given 09/17/2020 12:09 AM CDT 1 mg Given 09/08/2020 10:41 AM CDT 1 mg Given 09/08/2020 5:48 AM CDT 1 mg Given 09/07/2020 10:31 PM CDT 1 mg Given 09/07/2020 3:46 PM CDT 1 mg Given 09/06/2020 1:00 PM CDT 1 mg Given 09/06/2020 10:56 AM CDT 1 mg Given 09/05/2020 8:28 AM CDT 1 mg Given 09/05/2020 4:54 AM CDT 09/05/2020 7:06 AM CDT HYDROmorphone PF (DILAUDID) 10 mcg/mL, Given - New bupivacaine PF (MARCAINE) 0.1 % in Bag sodium chloride 0.9% (NS) 50 mL epidura l infusion syr 50 mL, Epidural, DEPARTMENT STORE GENERAL MANAGER, Starting on Fri09/05/20 at 0000, Until Fri09/05/20 at 1309, --FOR EPIDURAL ADMINISTRATION ONL Y -- Administer only with DEPARTMENT STORE GENERAL MANAGER Pump -- Onl y Patient may push DEPARTMENT STORE GENERAL MANAGER button Prescriptio n change can only be made by Anesthesiology Pain Service. NOTE: This is a HIGH ALERT Medication. Given - New Bag 09/04/2020 11:42 PM CDT 09/18/2020 9:52 AM CDT 0.125 mg hyoscyamine (ANASPAZ) rapid dissolve Given tablet 0.125 mg 0.125 mg, Sublingual, EVERY 4 HOURS PRN, Starting on Fri09/04/20 at 1547, Until Fri09/21/20 at 1745, Bladder Spasm s 0.125 mg Given 09/16/2020 10:44 PM CDT 0.125 mg Given 09/16/2020 9:34 AM CDT 0.125 mg Given 09/15/2020 9:52 PM CDT 0.125 mg Given 09/13/2020 12:55 PM CDT 0.125 mg Given 09/08/2020 10:15 AM CDT 0.125 mg Given 09/06/2020 10:30 PM CDT 09/04/2020 8:43 PM CDT 1,000 mL 999 mL/hr lactated ringers infusion Given - New 1,000 mL, 1,000 mL, Intravenous, at 999 Bag mL/hr, BOLUS, 1 dose, On Fri09/04/20 at 2015 09/05/2020 6:33 PM CDT 1,000 mL 500 mL/hr lactated ringers infusion Given - New 1,000 mL, 1,000 mL, Intravenous, at 500 Bag mL/hr, BOLUS, 1 dose, On Fri09/05/20 at 1815 09/07/2020 3:46 PM CDT 1,000 mL 999 mL/hr lactated ringers infusion Given - New 1,000 mL, 1,000 mL, Intravenous, at 999 Bag mL/hr, BOLUS, 1 dose, On Fri09/07/20 at 1345 09/09/2020 10:18 AM CDT 50 mL/hr lactated ringers infusion Given - New 1,000 mL, Intravenous, at 50 mL/hr, Bag CONTINUOUS, Starting on Fri09/09/20 at 0815, Until 09/10/20 at 0816 09/12/2020 8:28 PM CDT 500 mL 999 mL/hr lactated ringers infusion Given - New 1,000 mL, 500 mL, Intravenous, at 999 Bag mL/hr, BOLUS, 1 dose, On Fri09/12/20 at 2030 09/12/2020 9:36 PM CDT 250 mL 3000 mL/hr lactated ringers infusion Given - New 1,000 mL, 250 mL, Intravenous, at 3,000 Bag mL/hr, BOLUS, 1 dose, On Fri09/12/20 at 2130 LACTATED RINGERS IV SOLP (Cabinet Override) NOW, 1 dose, On Fri09/12/20 at 2030, Created by cabinet override, Created by cabinet override 09/21/2020 6:57 AM CDT 50 mcg levothyroxine (SYNTHROID) tablet 50 mcg Given 50 mcg, Oral, DAILY, First dose on Fri09/05/20 at 0900, Until Discontinued, Give 1 hour before a meal. If patient is receiving tube feedings, hold tube feed 1hr before and 1hr after dose. 50 mcg Given 09/20/2020 6:30 AM CDT 50 mcg Given 09/19/2020 6:02 AM CDT 50 mcg Given 09/17/2020 9:03 AM CDT 50 mcg Given 09/16/2020 8:57 AM CDT 50 mcg Given 09/15/2020 8:35 AM CDT 50 mcg Given 09/14/2020 8:12 AM CDT 50 mcg Given 09/13/2020 8:43 AM CDT 50 mcg Given 09/12/2020 9:08 AM CDT 50 mcg Given 09/11/2020 10:39 AM CDT 50 mcg Given 09/10/2020 9:59 AM CDT 50 mcg Given 09/09/2020 10:21 AM CDT 50 mcg Given 09/08/2020 8:44 AM CDT 50 mcg Given 09/07/2020 8:25 AM CDT 50 mcg Given 09/06/2020 8:59 AM CDT 50 mcg Given 09/05/2020 8:06 AM CDT lidocaine PF 1% (10 mg/mL) injection 0. 2 mL 0.2 mL, Injection, NEEDED, Starting on Fri09/04/20 at 0948, Until Rand 1 at 1745, Other..., for IV insertion 09/11/2020 6:20 AM CDT 1 g 25 mL/hr magnesium sulfate 1 g/D5W 100 mL IVPB Given - New 1 g, Intravenous, 100 mL, Administer Bag over 4 Hours, EVERY 4 HOURS, 1 dose, First dose on Fri09/11/20 at 0700, Each 1gm delivers 8.1 mEq Magnesium. 09/11/2020 11:18 AM CDT 1 g 25 mL/hr magnesium sulfate 1 g/D5W 100 mL IVPB Given - New 1 g, Intravenous, 100 mL, Administer Bag over 4 Hours, EVERY 4 HOURS, 1 dose, First dose on Fri09/11/20 at 1100, Each 1gm delivers 8.1 mEq Magnesium. 09/11/2020 9:47 PM CDT 3 mg melatonin tablet 3 mg Given 3 mg, Oral, AT BEDTIME PRN, Starting on Fri09/04/20 at 1941, Until Rand 09/21/20 a t 1745, Insomnia 3 mg Given 09/10/2020 8:48 PM CDT 09/04/2020 5:42 PM CDT 1,000 mg methocarbamoL (ROBAXIN) 1,000 mg in Given - New dextrose 5% (D5W) 100 mL IVPB Bag 1,000 mg, Intravenous, 100 mL, Administer over 30 Minutes, ONCE, 1 dose, On Fri09/04/20 at 1730 09/08/2020 8:44 AM CDT 750 mg methocarbamoL (ROBAXIN) tablet 750 mg Given 750 mg, Oral, TWICE DAILY, First dose o n Fri09/04/20 at 2100, Until Discontinued 750 mg Given 09/07/2020 9:21 PM CDT 750 mg Given 09/07/2020 8:25 AM CDT 750 mg Given 09/06/2020 10:23 PM CDT 750 mg Given 09/06/2020 8:59 AM CDT 750 mg Given 09/05/2020 9:11 PM CDT 750 mg Given 09/05/2020 8:07 AM CDT 750 mg Given 09/04/2020 8:42 PM CDT 09/21/2020 2:25 PM CDT 750 mg methocarbamoL (ROBAXIN) tablet 750 mg Given 750 mg, Oral, THREE TIMES DAILY, First dose (after last modification) on Fri09/08/20 at 1500, Until Discontinued 750 mg Given 09/21/2020 8:39 AM CDT 750 mg Given 09/20/2020 8:17 PM CDT 750 mg Given 09/20/2020 3:42 PM CDT 750 mg Given 09/20/2020 8:27 AM CDT 750 mg Given 09/19/2020 9:05 PM CDT 750 mg Given 09/19/2020 2:34 PM CDT 750 mg Given 09/19/2020 9:00 AM CDT 750 mg Given 09/18/2020 8:52 PM CDT 750 mg Given 09/18/2020 5:31 PM CDT 750 mg Given 09/18/2020 10:32 AM CDT 750 mg Given 09/17/2020 8:15 PM CDT 750 mg Given 09/17/2020 2:33 PM CDT 750 mg Given 09/17/2020 9:03 AM CDT 750 mg Given 09/16/2020 3:23 PM CDT 750 mg Given 09/16/2020 8:57 AM CDT 750 mg Given 09/15/2020 9:44 PM CDT 750 mg Given 09/15/2020 3:04 PM CDT 750 mg Given 09/15/2020 8:35 AM CDT 750 mg Given 09/14/2020 9:21 PM CDT 750 mg Given 09/14/2020 3:06 PM CDT 750 mg Given 09/14/2020 8:13 AM CDT 750 mg Given 09/13/2020 8:18 PM CDT 750 mg Given 09/13/2020 3:31 PM CDT 750 mg Given 09/13/2020 8:43 AM CDT 750 mg Given 09/12/2020 8:30 PM CDT 750 mg Given 09/12/2020 3:00 PM CDT 750 mg Given 09/12/2020 9:08 AM CDT 750 mg Given 09/11/2020 9:02 PM CDT 750 mg Given 09/11/2020 3:40 PM CDT 750 mg Given 09/11/2020 10:39 AM CDT 750 mg Given 09/10/2020 8:22 PM CDT 750 mg Given 09/10/2020 4:38 PM CDT 750 mg Given 09/10/2020 9:58 AM CDT 750 mg Given 09/09/2020 9:36 PM CDT 750 mg Given 09/09/2020 3:52 PM CDT 750 mg Given 09/09/2020 10:22 AM CDT 750 mg Given 09/08/2020 8:21 PM CDT 750 mg Given 09/08/2020 2:20 PM CDT 09/11/2020 3:43 AM CDT 500 mg metroNIDAZOLE (FLAGYL) 500 mg IVPB 100 Given - New mL Bag 500 mg, 100 mL, Intravenous, Administer over 60 Minutes, EVERY 12 HOURS, 9 doses, First dose on Rand 09/07/20 at 1600, Last dose on 09/11/20 at 1600 500 mg Given - New Bag 09/10/2020 4:38 PM CDT 500 mg Given - New Bag 09/10/2020 4:17 AM CDT 500 mg Given - New Bag 09/09/2020 3:53 PM CDT 500 mg Given - New Bag 09/09/2020 4:54 AM CDT 500 mg Given - New Bag 09/08/2020 4:00 PM CDT 500 mg Given - New Bag 09/08/2020 3:19 AM CDT 500 mg Given - New Bag 09/07/2020 5:11 PM CDT 09/15/2020 9:12 AM CDT 500 mg metroNIDAZOLE (FLAGYL) 500 mg IVPB 100 Given - New mL Bag 500 mg, 100 mL, Intravenous, Administer over 60 Minutes, EVERY 8 HOURS, First dose on Fri09/13/20 at 0930, Until Discontinued 500 mg Given - New Bag 09/15/2020 12:49 AM CDT 500 mg Given - New Bag 09/14/2020 9:21 PM CDT 500 mg Given - New Bag 09/14/2020 12:21 PM CDT 500 mg Given - New Bag 09/14/2020 1:59 AM CDT 500 mg Given - New Bag 09/13/2020 6:11 PM CDT 500 mg Given - New Bag 09/13/2020 8:47 AM CDT 09/19/2020 9:00 PM CDT 500 mg metroNIDAZOLE (FLAGYL) 500 mg IVPB 100 Given - New mL Bag 500 mg, 100 mL, Intravenous, Administer over 60 Minutes, EVERY 12 HOURS, First dose (after last modification) on Fri09/15/20 at 2115, Until Discontinued 500 mg Given - New Bag 09/19/2020 9:46 AM CDT 500 mg Given - New Bag 09/18/2020 8:45 PM CDT 500 mg Given - New Bag 09/18/2020 8:56 AM CDT 500 mg Given - New Bag 09/17/2020 8:18 PM CDT 500 mg Given - New Bag 09/17/2020 9:04 AM CDT 500 mg Given - New Bag 09/16/2020 10:43 PM CDT 500 mg Given - New Bag 09/16/2020 9:59 AM CDT 500 mg Given - New Bag 09/15/2020 9:43 PM CDT 09/07/2020 8:24 AM CDT 500 mg metroNIDAZOLE (FLAGYL) tablet 500 mg Given 500 mg, Oral, TWICE DAILY, First dose o n 09/04/20 at 2100, Until Discontinued , NURSING: Please educate patient and document: Avoid taking alcohol and metronidazole together, may potentate disulfiram effect. 500 mg Given 09/06/2020 10:24 PM CDT 500 mg Given 09/06/2020 8:59 AM CDT 500 mg Given 09/05/2020 9:11 PM CDT 500 mg Given 09/05/2020 8:06 AM CDT 500 mg Given 09/04/2020 8:42 PM CDT 09/20/2020 5:40 PM CDT 100 mg 100 mL/hr micafungin (MYCAMINE) 100 mg in sodium Given - New chloride 0.9% (NS) 100 mL IVPB (MB+) Bag 100 mg, Intravenous, 100 mL, Administer over 60 Minutes, EVERY 24 HOURS, First dose on Fri09/15/20 at 1800, Until Discontinued, PROTECT FROM LIGHT 100 mg 100 mL/hr Given - New Bag 09/19/2020 5:59 PM CDT 100 mg 100 mL/hr Given - New Bag 09/18/2020 5:31 PM CDT 100 mg 100 mL/hr Given - New Bag 09/17/2020 5:12 PM CDT 100 mg 100 mL/hr Given - New Bag 09/16/2020 6:26 PM CDT 100 mg 100 mL/hr Given - New Bag 09/15/2020 5:35 PM CDT 09/13/2020 4:25 PM CDT 1 mg midazolam (VERSED) injection 1 mg Given 1 mg, Intravenous, ONCE, 1 dose, On Fri09/13/20 at 1630 09/13/2020 5:02 PM CDT 1 mg midazolam (VERSED) injection Given INTRA-PROCEDURE MED, Starting on Fri09/13/20 at 1702, Until Fri09/13/20 at 1702 09/05/2020 3:14 PM CDT 12.5 mg naloxegoL (MOVANTIK) tablet 12.5 mg Given 12.5 mg, Oral, ONCE, 1 dose, On Fri09/05/20 at 1515, Should be administered at least 1 hour prior to the first meal of the day or 2 hours after the meal. For patients who are unable to swallow the tablet whole, the tablet can be crushed to a powder, mixed with 4 ounce s (120 mL) of water and drunk immediately . The glass should be refilled with 4 ounces (120 mL) of water, stirred and the contents drunk. Consumption of grapefruit or grapefruit juice during treatment with naloxegol should be avoided. 09/21/2020 8:39 AM CDT 1 drop naphazoline 0.025 % /pheniramine 0.3 % Given (NAPHCON-A) ophthalmic solution 1 drop 1 drop, Both Eyes, FOUR TIMES DAILY, First dose on Fri09/19/20 at 1430, Until Discontinued 1 drop Given 09/20/2020 8:18 PM CDT 1 drop Given 09/20/2020 5:41 PM CDT 1 drop Given 09/20/2020 8:28 AM CDT 1 drop Given 09/19/2020 9:04 PM CDT 1 drop Given 09/19/2020 4:19 PM CDT 1 drop Given 09/19/2020 2:34 PM CDT 09/20/2020 8:31 PM CDT 1 patch Arm, Lef t nicotine (NICODERM CQ STEP 2) 14 mg/day Patch/Topica patch 1 patch l Applied 1 patch, Transdermal, Administer over 2 4 Hours, EVERY 24 HOURS, First dose on 09/04/20 at 1945, Until Discontinued 1 patch Deltoid, Right Patch/Topical Applied 09/19/2020 9:03 PM CDT 1 patch Deltoid, Left Patch/Topical Applied 09/18/2020 8:50 PM CDT 1 patch Arm, Left Patch/Topical Applied 09/17/2020 8:16 PM CDT 1 patch Arm, Left Patch/Topical Applied 09/16/2020 10:47 PM CDT 1 patch Arm, Right Patch/Topical Applied 09/15/2020 9:44 PM CDT 1 patch Arm, Left Patch/Topical Applied 09/14/2020 9:18 PM CDT 1 patch Arm, Right Patch/Topical Applied 09/13/2020 8:24 PM CDT 1 patch Arm, Right Patch/Topical Applied 09/12/2020 8:32 PM CDT 1 patch Arm, Left Patch/Topical Applied 09/11/2020 9:00 PM CDT 1 patch Arm, Right Patch/Topical Applied 09/10/2020 8:20 PM CDT 1 patch Left Arm Patch/Topical Applied 09/09/2020 9:35 PM CDT 1 patch Arm, Right Patch/Topical Applied 09/08/2020 8:21 PM CDT 1 patch Arm, Left Patch/Topical Applied 09/07/2020 9:19 PM CDT 1 patch Arm, Right Patch/Topical Applied 09/06/2020 9:28 PM CDT 1 patch Arm, Left Patch/Topical Applied 09/05/2020 9:14 PM CDT 1 patch Arm, Right Patch/Topical Applied 09/04/2020 8:43 PM CDT 09/20/2020 7:30 PM CDT 4 mg ondansetron (ZOFRAN) injection 4 mg Given 4 mg, Intravenous, EVERY 6 HOURS PRN, Starting on 09/04/20 at 1941, Until Rand 09/21/20 at 1745, Nausea/Vomiting Injectable 4 mg Given 09/20/2020 9:09 AM CDT 4 mg Given 09/19/2020 3:51 AM CDT 4 mg Given 09/18/2020 1:59 PM CDT 4 mg Given 09/18/2020 8:32 AM CDT 4 mg Given 09/17/2020 9:56 PM CDT 4 mg Given 09/17/2020 9:41 AM CDT 4 mg Given 09/16/2020 10:43 PM CDT 4 mg Given 09/16/2020 3:23 PM CDT 4 mg Given 09/15/2020 3:04 PM CDT 4 mg Given 09/15/2020 8:31 AM CDT 4 mg Given 09/14/2020 6:22 PM CDT 4 mg Given 09/14/2020 9:21 AM CDT 4 mg Given 09/13/2020 8:51 AM CDT 4 mg Given 09/13/2020 2:49 AM CDT 4 mg Given 09/12/2020 6:41 AM CDT 4 mg Given 09/11/2020 9:00 PM CDT 4 mg Given 09/11/2020 6:19 AM CDT 4 mg Given 09/10/2020 8:47 PM CDT 4 mg Given 09/10/2020 4:38 PM CDT 4 mg Given 09/09/2020 10:57 AM CDT 4 mg Given 09/09/2020 6:49 AM CDT 4 mg Given 09/07/2020 8:49 AM CDT 4 mg Given 09/06/2020 10:32 PM CDT 4 mg Given 09/06/2020 3:45 PM CDT 4 mg Given 09/06/2020 9:07 AM CDT 4 mg Given 09/05/2020 3:24 PM CDT 4 mg Given 09/05/2020 8:20 AM CDT 4 mg Given 09/05/2020 2:49 AM CDT 09/06/2020 8:31 PM CDT 4 mg ondansetron (ZOFRAN) injection 4 mg Given 4 mg, Intravenous, ONCE, 1 dose, On Fri09/06/20 at 2115 09/21/2020 8:39 AM CDT 15 mg oxybutynin XL (DITROPAN XL) tablet 15 mg Given 15 mg, Oral, DAILY, First dose on Fri09/04/20 at 1645, Until Discontinued, Do not crush or chew 15 mg Given 09/20/2020 8:27 AM CDT 15 mg Given 09/19/2020 9:00 AM CDT 15 mg Given 09/18/2020 3:38 PM CDT 15 mg Given 09/17/2020 9:10 AM CDT 15 mg Given 09/16/2020 8:58 AM CDT 15 mg Given 09/15/2020 8:35 AM CDT 15 mg Given 09/14/2020 8:13 AM CDT 15 mg Given 09/13/2020 12:56 PM CDT 15 mg Given 09/12/2020 9:08 AM CDT 15 mg Given 09/11/2020 10:40 AM CDT 15 mg Given 09/10/2020 9:58 AM CDT 15 mg Given 09/09/2020 10:22 AM CDT 15 mg Given 09/08/2020 8:44 AM CDT 15 mg Given 09/07/2020 8:25 AM CDT 15 mg Given 09/06/2020 8:59 AM CDT 15 mg Given 09/05/2020 8:06 AM CDT 09/14/2020 4:18 PM CDT 10 mg oxyCODONE (ROXICODONE) tablet 5-15 mg Given 5-15 mg, Oral, EVERY 4 HOURS PRN, Starting on 09/04/20 at 1942, Until Rand 09/14/20 at 1852, Pain PO 10 mg Given 09/14/2020 10:58 AM CDT 10 mg Given 09/13/2020 10:23 PM CDT 10 mg Given 09/13/2020 12:56 PM CDT 5 mg Given 09/13/2020 8:51 AM CDT 10 mg Given 09/13/2020 5:28 AM CDT 10 mg Given 09/12/2020 8:30 PM CDT 15 mg Given 09/12/2020 12:56 PM CDT 10 mg Given 09/12/2020 4:55 AM CDT 10 mg Given 09/11/2020 9:47 PM CDT 15 mg Given 09/11/2020 3:40 PM CDT 10 mg Given 09/11/2020 11:24 AM CDT 10 mg Given 09/11/2020 3:43 AM CDT 10 mg Given 09/10/2020 8:21 PM CDT 10 mg Given 09/09/2020 11:50 PM CDT 10 mg Given 09/09/2020 12:38 PM CDT 10 mg Given 09/09/2020 4:57 AM CDT 15 mg Given 09/08/2020 8:22 PM CDT 10 mg Given 09/08/2020 10:15 AM CDT 5 mg Given 09/08/2020 8:51 AM CDT 5 mg Given 09/08/2020 3:18 AM CDT 15 mg Given 09/07/2020 10:55 AM CDT 10 mg Given 09/06/2020 3:45 PM CDT 5 mg Given 09/06/2020 12:15 PM CDT 10 mg Given 09/06/2020 9:39 AM CDT 15 mg Given 09/05/2020 3:14 PM CDT 15 mg Given 09/05/2020 10:11 AM CDT 15 mg Given 09/05/2020 2:42 AM CDT 15 mg Given 09/04/2020 8:42 PM CDT 09/21/2020 8:39 AM CDT [address] (PROTONIX) tablet 40 mg Given 40 mg, Oral, DAILY, First dose on Fri09/05/20 at 0900, Until Discontinued, Do not crush or chew tablet. 40 mg Given 09/20/2020 8:27 AM CDT 40 mg Given 09/19/2020 9:00 AM CDT 40 mg Given 09/18/2020 10:32 AM CDT 40 mg Given 09/17/2020 9:03 AM CDT 40 mg Given 09/16/2020 8:57 AM CDT 40 mg Given 09/15/2020 8:35 AM CDT 40 mg Given 09/14/2020 8:13 AM CDT 40 mg Given 09/13/2020 8:47 AM CDT 40 mg Given 09/12/2020 9:08 AM CDT 40 mg Given 09/11/2020 10:38 AM CDT 40 mg Given 09/10/2020 9:58 AM CDT 40 mg Given 09/09/2020 10:21 AM CDT 40 mg Given 09/08/2020 8:44 AM CDT 40 mg Given 09/07/2020 8:25 AM CDT 40 mg Given 09/06/2020 8:59 AM CDT 40 mg Given 09/05/2020 8:07 AM CDT 09/21/2020 8:43 AM CDT 1 patch Ear, Beh ind Patch Documentation - Scopolamine base Patch/Topica 1MG/72HR 1 patch l Verified 1 patch, Transdermal, Administer over 1 2 Hours, TWICE DAILY, First dose on Fri09/05/20 at 2100, Until Discontinued, Documentation of Patch 1 patch Ear, Behind Patch/Topical Verified 09/20/2020 8:23 PM CDT 1 patch Ear, Behind Patch/Topical Verified 09/20/2020 8:28 AM CDT 1 patch Ear, Behind Patch/Topical Verified 09/19/2020 9:06 PM CDT 1 patch Ear, Behind Patch/Topical Verified 09/19/2020 9:04 AM CDT 1 patch Ear, Behind Patch/Topical Verified 09/18/2020 8:53 PM CDT 1 patch Ear, Behind Patch/Topical Verified 09/18/2020 8:49 AM CDT 1 patch Ear, Behind Patch/Topical Verified 09/17/2020 8:24 PM CDT 1 patch Ear, Behind Patch/Topical Verified 09/17/2020 10:03 AM CDT 1 patch Ear, Behind Patch/Topical Verified 09/16/2020 10:45 PM CDT 1 patch Ear, Behind Patch/Topical Verified 09/16/2020 10:00 AM CDT 1 patch Ear, Behind Patch/Topical Verified 09/15/2020 9:45 PM CDT 1 patch Ear, Behind Patch/Topical Verified 09/15/2020 9:04 AM CDT 1 patch Ear, Behind Patch/Topical Verified 09/14/2020 9:37 PM CDT 1 patch Ear, Behind Patch/Topical Verified 09/14/2020 8:14 AM CDT 1 patch Ear, Behind Patch/Topical Verified 09/13/2020 8:18 PM CDT 1 patch Ear, Behind Patch/Topical Verified 09/13/2020 8:51 AM CDT 1 patch Ear, Behind Patch/Topical Verified 09/12/2020 8:33 PM CDT 1 patch Ear, Behind Patch/Topical Verified 09/12/2020 9:09 AM CDT 1 patch Ear, Behind Patch/Topical Verified 09/11/2020 9:03 PM CDT 1 patch Ear, Behind Patch/Topical Verified 09/11/2020 10:41 AM CDT 1 patch Ear, Behind Patch/Topical Verified 09/10/2020 8:25 PM CDT 1 patch Ear, Behind Patch/Topical Verified 09/10/2020 9:59 AM CDT 1 patch Ear, Behind Patch/Topical Verified 09/09/2020 9:37 PM CDT 1 patch Ear, Behind Patch/Topical Verified 09/09/2020 10:23 AM CDT 1 patch Ear, Behind Patch/Topical Verified 09/08/2020 9:00 PM CDT 1 patch Ear, Behind Patch/Topical Verified 09/08/2020 9:14 AM CDT 1 patch Ear, Behind Patch/Topical Verified 09/07/2020 10:32 PM CDT 1 patch Ear, Behind Patch/Topical Verified 09/07/2020 8:27 AM CDT 1 patch Ear, Behind Patch/Topical Verified 09/06/2020 8:38 PM CDT 1 patch Ear, Behind Patch/Topical Verified 09/06/2020 9:39 AM CDT 1 patch Ear, Behind Patch/Topical Verified 09/05/2020 9:15 PM CDT 09/06/2020 1:05 PM CDT 2 sprays phenoL (CLORASEPTIC) spray 2 spray Given 2 spray, Mouth/Throat, NEEDED, Starting on Fri09/05/20 at 1823, Until Fri09/21/20 at 1745, Mouth/Throat Pain 09/21/2020 8:37 AM CDT 17 g polyethylene glycol 3350 (MIRALAX) Given packet 17 g 17 g (1 packet), Oral, TWICE DAILY, First dose on Fri09/04/20 at 2100, Unti l Discontinued, 8.5 GRAMS = 0.5 PACKET 17 GRAMS = 1 PACKET 34 GRAMS = 2 PACKETS 17 g Given 09/20/2020 8:18 PM CDT 17 g Given 09/20/2020 8:27 AM CDT 17 g Given 09/19/2020 9:02 PM CDT 17 g Given 09/19/2020 8:59 AM CDT 17 g Given 09/18/2020 8:51 PM CDT 17 g Given 09/18/2020 8:42 AM CDT 17 g Given 09/17/2020 8:15 PM CDT 17 g Given 09/16/2020 8:58 AM CDT 17 g Given 09/15/2020 9:43 PM CDT 17 g Given 09/15/2020 8:35 AM CDT 17 g Given 09/14/2020 9:20 PM CDT 17 g Given 09/12/2020 8:33 PM CDT 17 g Given 09/12/2020 9:05 AM CDT 17 g Given 09/11/2020 8:59 PM CDT 17 g Given 09/10/2020 8:24 PM CDT 17 g Given 09/10/2020 9:58 AM CDT 17 g Given 09/09/2020 9:34 PM CDT 17 g Given 09/08/2020 8:21 PM CDT 17 g Given 09/08/2020 8:44 AM CDT 17 g Given 09/07/2020 9:20 PM CDT 17 g Given 09/06/2020 8:59 AM CDT 17 g Given 09/04/2020 8:42 PM CDT 09/15/2020 11:17 AM CDT 10 mEq 25 mL/hr potassium chloride in water IVPB 10 mEq Given - New 10 mEq, Intravenous, 50 mL, Administer Bag over 120 Minutes, EVERY 2 HOURS, 1 dose, First dose on Fri09/15/20 at 0900, NOTE: This is a HIGH ALERT Medication. 09/15/2020 1:05 PM CDT 10 mEq 25 mL/hr potassium chloride in water IVPB 10 mEq Given - New 10 mEq, Intravenous, 50 mL, Administer Bag over 120 Minutes, EVERY 2 HOURS, 1 dose, First dose on Fri09/15/20 at 1100, NOTE: This is a HIGH ALERT Medication. 09/15/2020 3:08 PM CDT 10 mEq 25 mL/hr potassium chloride in water IVPB 10 mEq Given - New 10 mEq, Intravenous, 50 mL, Administer Bag over 120 Minutes, EVERY 2 HOURS, 1 dose, First dose on Fri09/15/20 at 1300, NOTE: This is a HIGH ALERT Medication. 09/15/2020 6:41 PM CDT 10 mEq 25 mL/hr potassium chloride in water IVPB 10 mEq Given - New 10 mEq, Intravenous, 50 mL, Administer Bag over 120 Minutes, EVERY 2 HOURS, 1 dose, First dose on Fri09/15/20 at 1500, NOTE: This is a HIGH ALERT Medication. 09/11/2020 6:19 AM CDT 60 mEq potassium chloride SR (K-DUR) tablet 60 Given mEq 60 mEq, Oral, ONCE, 1 dose, On 09/11/20 at 0630, - Tablet may be dispersed in water. Place tab in 30 mL of water for 40-60 seconds. - Gently swirl until fully dispersed. If particles remain after admin, add small amount of water and admin remaining content. - DO NOT CRUSH. Tablet may be split in half. Give with meal or full glass of water 09/07/2020 10:54 AM CDT 24 mmol 83.3 mL/hr potassium phosphate 24 mmol in sodium Given - New chloride 0.9% (NS) 500 mL IVPB (std) Bag 24 mmol, Intravenous, 500 mL, Administe r over 6 Hours, ONCE, 1 dose, On Fri09/07/20 at 0845, Each 10mM K Phos delivers 14.7meq K+ NOTE: This is a HIG H ALERT Medication. 09/21/2020 2:25 PM CDT 10 mg prochlorperazine (COMPAZINE) injection Given 10 mg 10 mg, Intravenous, EVERY 6 HOURS PRN, Starting on Fri09/07/20 at 0307, Until Rand 09/21/20 at 1745, Nausea/Vomiting Injectable, PROTECT FROM LIGHT -- May b e given undiluted, or each 5mg may be diluted with 9 mL of NS to facilitate titration. 10 mg Given 09/20/2020 10:19 PM CDT 10 mg Given 09/18/2020 3:36 PM CDT 10 mg Given 09/18/2020 9:52 AM CDT 10 mg Given 09/17/2020 11:15 PM CDT 10 mg Given 09/16/2020 8:55 PM CDT 10 mg Given 09/16/2020 11:20 AM CDT 10 mg Given 09/14/2020 9:20 PM CDT 10 mg Given 09/13/2020 9:52 AM CDT 10 mg Given 09/11/2020 8:36 AM CDT 10 mg Given 09/09/2020 12:31 PM CDT 10 mg Given 09/07/2020 3:18 AM CDT 09/20/2020 11:47 AM CDT 1 patch Ear, Beh ind scopolamine (TRANSDERM-SCOP) 1mg over 3 Patch/Topica days patch 1 patch l Applied 1 patch, Transdermal, Administer over 7 2 Hours, EVERY 72 HOURS, First dose on 09/05/20 at 1100, Until Discontinued, Each 1.5 mg patch is formulated to deliver in-vivo approximately 1 mg of scopolamine over 3 days. Apply to hairless area of skin behind the ear. 1 patch Ear, Behind Patch/Topical Applied 09/17/2020 10:41 AM CDT 1 patch Ear, Behind Patch/Topical Applied 09/14/2020 11:05 AM CDT 1 patch Ear, Behind Patch/Topical Applied 09/11/2020 10:52 AM CDT 1 patch Ear, Behind Patch/Topical Applied 09/08/2020 9:12 AM CDT 1 patch Ear, Behind Patch/Topical Applied 09/05/2020 11:31 AM CDT 09/21/2020 8:39 AM CDT 1 tablet senna/docusate (SENOKOT-S) tablet 1 Given tablet 1 tablet, Oral, TWICE DAILY, First dose on Fri09/04/20 at 2100, Until Discontinued, Hold for loose stools 1 tablet Given 09/20/2020 8:17 PM CDT 1 tablet Given 09/20/2020 8:27 AM CDT 1 tablet Given 09/19/2020 9:05 PM CDT 1 tablet Given 09/19/2020 9:00 AM CDT 1 tablet Given 09/18/2020 8:52 PM CDT 1 tablet Given 09/17/2020 8:15 PM CDT 1 tablet Given 09/17/2020 9:03 AM CDT 1 tablet Given 09/16/2020 8:57 AM CDT 1 tablet Given 09/15/2020 9:44 PM CDT 1 tablet Given 09/15/2020 8:35 AM CDT 1 tablet Given 09/14/2020 9:21 PM CDT 1 tablet Given 09/14/2020 8:13 AM CDT 1 tablet Given 09/13/2020 8:18 PM CDT 1 tablet Given 09/13/2020 8:43 AM CDT 1 tablet Given 09/12/2020 8:30 PM CDT 1 tablet Given 09/12/2020 9:08 AM CDT 1 tablet Given 09/11/2020 9:02 PM CDT 1 tablet Given 09/11/2020 10:40 AM CDT 1 tablet Given 09/10/2020 8:22 PM CDT 1 tablet Given 09/10/2020 9:58 AM CDT 1 tablet Given 09/09/2020 9:36 PM CDT 1 tablet Given 09/09/2020 10:20 AM CDT 1 tablet Given 09/08/2020 8:21 PM CDT 1 tablet Given 09/08/2020 8:44 AM CDT 1 tablet Given 09/07/2020 9:20 PM CDT 1 tablet Given 09/07/2020 8:24 AM CDT 1 tablet Given 09/06/2020 8:59 AM CDT 1 tablet Given 09/05/2020 9:11 PM CDT 1 tablet Given 09/05/2020 8:06 AM CDT 1 tablet Given 09/04/2020 8:43 PM CDT 09/18/2020 10:31 AM CDT 80 mg simethicone (MYLICON) chew tablet 80 mg Given 80 mg, Oral, EVERY 6 HOURS PRN, Starting on 09/04/20 at 1942, Until Rand 09/21/20 at 1745, Flatulence 80 mg Given 09/17/2020 8:35 PM CDT 80 mg Given 09/16/2020 10:44 PM CDT 80 mg Given 09/16/2020 4:36 PM CDT 80 mg Given 09/15/2020 9:44 PM CDT 80 mg Given 09/15/2020 3:08 PM CDT 80 mg Given 09/14/2020 10:04 PM CDT 80 mg Given 09/14/2020 3:06 PM CDT 80 mg Given 09/13/2020 9:42 AM CDT 80 mg Given 09/12/2020 8:30 PM CDT 80 mg Given 09/12/2020 6:03 AM CDT 80 mg Given 09/11/2020 9:43 PM CDT 80 mg Given 09/11/2020 3:40 PM CDT 80 mg Given 09/10/2020 4:38 PM CDT 80 mg Given 09/10/2020 10:23 AM CDT 80 mg Given 09/09/2020 11:50 PM CDT 80 mg Given 09/09/2020 10:45 AM CDT 80 mg Given 09/08/2020 10:30 AM CDT 80 mg Given 09/06/2020 9:31 PM CDT 80 mg Given 09/06/2020 10:59 AM CDT 80 mg Given 09/05/2020 12:09 PM CDT 80 mg Given 09/05/2020 4:55 AM CDT 09/06/2020 1:24 AM CDT 120 mL/hr sodium chloride 0.9 % infusion Given - New 1,000 mL, Intravenous, at 120 mL/hr, Bag CONTINUOUS, Starting on Fri09/04/20 at 1600, Until Fri09/06/20 at 0722 120 mL/hr Given - New Bag 09/05/2020 4:46 PM CDT 120 mL/hr Given - New Bag 09/05/2020 10:10 AM CDT 120 mL/hr Given - New Bag 09/05/2020 2:31 AM CDT 120 mL/hr Given - New Bag 09/04/2020 5:42 PM CDT 09/10/2020 10:15 AM CDT 1,000 mL 50 mL/hr SODIUM CHLORIDE 0.9 % IV SOLP (Cabinet Given - New Override) Bag NOW, 1 dose, On Fri09/10/20 at 1015, Created by cabinet override, Created by cabinet override 09/21/2020 8:43 AM CDT 10 mL sodium chloride PF 0.9% flush 10 mL Given 10 mL, Flush, FLUSH THREE TIMES DAILY, First dose on Fri09/12/20 at 1800, Unti l Discontinued, Flush central, Midline or PICC line, with 5-10 mL every 8 hours using the push-pause (turbulent) method . Flush all lumens that do not have a continuous infusion. After obtaining blood specimen, flush catheter with 20 mL. 10 mL Given 09/21/2020 12:27 AM CDT 10 mL Given 09/20/2020 3:44 PM CDT 10 mL Given 09/20/2020 8:25 AM CDT 10 mL Given 09/20/2020 12:42 AM CDT 10 mL Given 09/19/2020 4:19 PM CDT 10 mL Given 09/19/2020 9:01 AM CDT 10 mL Given 09/19/2020 12:46 AM CDT 10 mL Given 09/18/2020 3:37 PM CDT 10 mL Given 09/18/2020 8:17 AM CDT 10 mL Given 09/18/2020 12:16 AM CDT 10 mL Given 09/17/2020 3:29 PM CDT 10 mL Given 09/17/2020 9:08 AM CDT 10 mL Given 09/17/2020 12:09 AM CDT 10 mL Given 09/16/2020 6:27 PM CDT 10 mL Given 09/16/2020 9:04 AM CDT 10 mL Given 09/15/2020 11:55 PM CDT 10 mL Given 09/15/2020 4:50 PM CDT 10 mL Given 09/15/2020 8:40 AM CDT 10 mL Given 09/15/2020 12:14 AM CDT 10 mL Given 09/14/2020 4:27 PM CDT 10 mL Given 09/14/2020 8:12 AM CDT 10 mL Given 09/14/2020 12:48 AM CDT 10 mL Given 09/13/2020 8:51 AM CDT 10 mL Given 09/13/2020 12:22 AM CDT 09/21/2020 8:44 AM CDT 10 mL sodium chloride PF 0.9% syringe 10 mL Given 10 mL, Intravenous, TWICE DAILY, First dose on Fri09/13/20 at 2100, Until Discontinued, Flush drain as ordered. See Abscess Drain Maintenance Order. 10 mL Given 09/20/2020 8:18 PM CDT 10 mL Given 09/20/2020 8:25 AM CDT 10 mL Given 09/19/2020 9:06 PM CDT 10 mL Given 09/19/2020 9:01 AM CDT 10 mL Given 09/18/2020 8:49 PM CDT 10 mL Given 09/18/2020 8:17 AM CDT 10 mL Given 09/17/2020 8:25 PM CDT 10 mL Given 09/17/2020 9:08 AM CDT 10 mL Given 09/16/2020 10:45 PM CDT 10 mL Given 09/16/2020 9:04 AM CDT 10 mL Given 09/15/2020 9:46 PM CDT 10 mL Given 09/15/2020 8:40 AM CDT 10 mL Given 09/14/2020 9:37 PM CDT 10 mL Given 09/14/2020 8:13 AM CDT 10 mL Given 09/13/2020 8:19 PM CDT 09/10/2020 8:21 PM CDT 125 mg vancomycin (FIRVANQ) oral solution 125 Given mg 125 mg, Oral, TWICE DAILY, 13 doses, First dose on Fri09/04/20 at 2100, Last dose on Fri09/10/20 at 2100 125 mg Given 09/10/2020 9:57 AM CDT 125 mg Given 09/09/2020 9:36 PM CDT 125 mg Given 09/09/2020 10:37 AM CDT 125 mg Given 09/08/2020 8:44 AM CDT 125 mg Given 09/07/2020 9:20 PM CDT 125 mg Given 09/07/2020 8:24 AM CDT 125 mg Given 09/06/2020 10:23 PM CDT 125 mg Given 09/06/2020 8:58 AM CDT 125 mg Given 09/05/2020 9:11 PM CDT 125 mg Given 09/05/2020 8:07 AM CDT 125 mg Given 09/04/2020 8:42 PM CDT 09/21/2020 8:39 AM CDT 125 mg vancomycin (FIRVANQ) oral solution 125 Given mg 125 mg, Oral, TWICE DAILY, First dose o n 09/12/20 at 1000, Until Discontinued 125 mg Given 09/20/2020 8:17 PM CDT 125 mg Given 09/20/2020 8:32 AM CDT 125 mg Given 09/19/2020 9:02 PM CDT 125 mg Given 09/19/2020 8:59 AM CDT 125 mg Given 09/18/2020 8:51 PM CDT 125 mg Given 09/18/2020 9:01 AM CDT 125 mg Given 09/17/2020 8:35 PM CDT 125 mg Given 09/17/2020 9:03 AM CDT 125 mg Given 09/16/2020 8:57 AM CDT 125 mg Given 09/15/2020 9:43 PM CDT 125 mg Given 09/15/2020 9:03 AM CDT 125 mg Given 09/14/2020 9:21 PM CDT 125 mg Given 09/14/2020 9:46 AM CDT 125 mg Given 09/13/2020 8:22 PM CDT 125 mg Given 09/13/2020 9:35 AM CDT 125 mg Given 09/12/2020 8:29 PM CDT 125 mg Given 09/12/2020 12:50 PM CDT 09/14/2020 9:47 AM CDT 1,750 mg 143 mL/hr vancomycin (VANCOCIN) 1,750 mg in sodium Given - New chloride 0.9% (NS) 285 mL IVPB Bag 1,750 mg, Intravenous, 285 mL, Administer over 120 Minutes, EVERY 24 HOURS, First dose (after last modification) on 09/10/20 at 0900, Until Discontinued, Note Pharmacokineti c Monitoring: Please record infusion start time (Action= Given) and stop jed e (Action= Completed) of dose when blood levels are drawn. 1,750 mg 143 mL/hr Given - New Bag 09/13/2020 9:39 AM CDT 1,750 mg 143 mL/hr Given - New Bag 09/12/2020 9:11 AM CDT 1,750 mg 143 mL/hr Given - New Bag 09/11/2020 10:36 AM CDT 1,750 mg 143 mL/hr Given - New Bag 09/10/2020 10:14 AM CDT 09/09/2020 10:36 AM CDT 2,000 mg 145 mL/hr vancomycin (VANCOCIN) 2,000 mg in sodium Given - New chloride 0.9% (NS) 290 mL IVPB Bag 2,000 mg (rounded from 1,905 mg = 25 mg/kg 76.2 kg), Intravenous, 290 mL, Administer over 120 Minutes, ONCE, 1 dose, On 09/09/20 at 0900, Note Pharmacokinetic Monitoring: Please record infusion start time (Action= Given) and stop time (Action= Completed ) of dose when blood levels are drawn. 09/06/2020 9:00 AM CDT 20 mL WATER FOR INJECTION, STERILE IJ SOLN Given (Cabinet Override) NOW, 1 dose, On Fri09/06/20 at 0845, Created by cabinet override, Created by cabinet override documented in this encounter Discontinued Medications Start Date End Date Medication Sig Discontinue Reason 07/18/2020 09/20/2020 fluconazole (DIFLUCAN) Take one 200 mg tablet tablet by mouth daily. 07/18/2020 09/20/2020 furosemide (LASIX) 40 mg Take one tablet tablet by mouth daily. 07/18/2020 09/20/2020 metroNIDAZOLE (FLAGYL) Take one 500 mg tablet tablet by mouth twice daily. Take with food. Do not drink alcohol while on metronidazol e. 07/18/2020 09/20/2020 oxyCODONE (ROXICODONE) 5 Take one mg tablet tablet to two tablets by mouth every 4 hours as needed 07/19/2020 09/20/2020 cefTRIAXone (ROCEPHIN) 2 2 grams IV g solr every 24 hours. 07/19/2020 09/20/2020 trospium XR (SANCTURA XR) Take one 60 mg capsuleIndications: capsule by Ureteral stricture, right mouth daily. This is preferred over dicyclomine which has also been ordered. Do not use both. 07/19/2020 09/20/2020 dicyclomine (BENTYL) 10 Take one mg capsule capsule by mouth three times daily before meals. Preference is to use trospium. This is only to be used if trospium is not available. Do not use both. 07/19/2020 09/20/[address] Take one Reorder (PROTONIX) 40 mg tablet tablet by mouth daily. documented as of this encounter Active and Recently Administered Medications Times are shown in CDT. 09/20/2020 09/21/2020 Medication Order 09/19/2020 Adult Continuous Parenteral Nutrition 2100 (Given - New (PN) (COMPLETED) Bag - Provider: Central, PN PER INSTR, 1 dose, First Héctor Morris RN) dose (after last reorder) on Fri09/19/20 at 2030, 1,800 mL 2019 (Given - New Bag - Provider: Kelly Gaytan, KOBI) Adult Continuous Parenteral Nutrition (PN) Central, PN PER INSTR, First dose (afte r last reorder) on Fri09/20/20 at 2030, Until Discontinued, 1,800 mL 0827 (Given - Provider: Sharlene Nix RN) 0907 (Given - Provider: Jane hernandez RN) buPROPion XL (WELLBUTRIN XL) tablet 150 0909 (Given - mg Provider: Jane 150 mg, Oral, DAILY, First dose on Fri [facility], 09/05/20 at 0900, Until Discontinued RN) 0042 (Given - New Bag - Provider: Cristal Morris RN)0821 (Given - New Bag - Provider: Sharlene Nix, KOBI)1542 (Given - New Bag - Provider: Sharlene Nix, KOBI) 0026 (Given - New Bag - Provider: Kelly Gaytan, KOBI)0837 (Given - New Bag - Provider: Jane Helms, KOBI)1431 (Given - New Bag - Provider: Jane Helms, KOBI - Comment: per No Delarosa NP)1600 (Planned Hold - Provider: Jane Helms RN) cefepime (MAXIPIME) 2 g in sodium 0046 (Given - New chloride 0.9% (NS) 100 mL IVPB (MB+) Bag - Provider: 2 g, Intravenous, 100 mL, Administer Héctor Morris , over 30 Minutes, EVERY 8 HOURS, First RN)0859 (Give n - New dose (after last modification) on Rand Bag - Provider : 09/14/20 at 0800, Until Discontinued Jane Helms RN)1618 (Given - New Bag - Provider: Jane Helms RN) 0827 (Given - Provider: Sharlene Nix RN) 0839 (Given - Provider: Jane hernandez, KOBI) cetirizine (ZyrTEC) tablet 10 mg 0900 (Given - 10 mg, Oral, DAILY, First dose on Fri Provider: Ansley hickey 09/05/20 at 0900, Until Discontinued Nicola Helms RN) 09 (Canceled Entry - Provider: Sharlene brock RN - Comment: order to not administer) 1443 (Given - Provider: Jane hernandez, KOBI) COVID-19 vacc,mRNA (MODERNA) PF immunization 100 mcg (COMPLETED) 100 mcg, Intramuscular, SUPERINTENDENT DRILLING FROM PHARMACY, 1 dose, Fri09/06/20 at 0800, -The goal is to administer within 2 day s of discharge. -Please reschedule for 0800 next day until administered. -Patient should have temp <38.3 C (afebrile) for 24 hours. -Please send R x message to pharmacy when ready for dose . -Per hospital protocol, please discuss risks and benefits with patient prior t o administration of the vaccine. -Monitor patient for 15 minutes following administration. -If any questions of patient's clinical stability, confirm o k to give with primary team. 0824 (Given - Provider: Shalrene Nix RN) 0837 (Given - Provider: Jane hernandez, RN) DAPTOmycin (CUBICIN) injection 550 mg 0859 (Given - 550 mg (rounded from 567 mg = 10 mg/kg Provider: Amadeo gutierrez 56.7 kg Adjusted weight), Intravenous, Nicola domingo, 11 mL, Administer over 5 Minutes, EVERY RN) 24 HOURS, First dose (after last modification) on Fri09/15/20 at 0800, Until Discontinued 08 (Given - Provider: Sharlene Nix RN) 0836 (Given - Provider: Jane hernandez, KOBI) enoxaparin (LOVENOX) syringe 40 mg 0859 (Given - 40 mg, Subcutaneous, DAILY, First dose Provider: Mirlande diaz on Rand 09/07/20 at 0900, Until Nicola Helms, Discontinued, For patients undergoing RN) surgery: Consult physician in advance - - enoxaparin is an anticoagulant and may need to be held for 12hr prior to surgery or invasive procedures. NOTE: This is a HIGH ALERT Medication. 0827 (Given - Provider: Sharlene Nix RN)2 017 (Given - Provider: Kelly Gaytan, RN) 0839 (Given - Provider: Jane hernandez RN) gabapentin (NEURONTIN) capsule 300 mg 0900 (Given - 300 mg, Oral, TWICE DAILY, First dose on Provider: Amadeo gutierrez ilda 09/05/20 at 1145, Until Discontinued Nicola taylor RN)210 (Given - Provider: Héctor Morris, KOBI) 0630 (Given - Provider: Héctor Morris, RN) 0657 (Given - Provider: Kelly Gaytan, RN) levothyroxine (SYNTHROID) tablet 50 mcg 0602 (Given - 50 mcg, Oral, DAILY, First dose on Fri Provider: Jalen armenta 09/05/20 at 0900, Until Discontinued, KOBI Morris) Give 1 hour before a meal. If patient is receiving tube feedings, hold tube feed 1hr before and 1hr after dose. 0827 (Given - Provider: Sharlene Nix RN)1 542 (Given - Provider: Sharlene Nix, KOBI)2017 (Given - Provider: Kelly Gaytan, KOBI) 0839 (Given - Provider: Jane hernandez, KOBI)1425 (Given - Provider: Jane Helms RN) methocarbamoL (ROBAXIN) tablet 750 mg 0900 (Given - 750 mg, Oral, THREE TIMES DAILY, First Provider: Mirlande ia dose (after last modification) on Fri Nicola hooper, 09/08/20 at 1500, Until Discontinued RN)1434 (Given - Provider: Jane Helms, KOBI)2105 (Given - Provider: Héctor Morris, KOBI) metroNIDAZOLE (FLAGYL) 500 mg IVPB 100 0946 (Given - New mL (CANCELED) Bag - Provider: 500 mg, Intravenous, EVERY 12 HOURS, Jane Petersen First dose (after last modification) on KOBI Helms) 209909/15/20 at 2115, Until Discontinued (Given - New Bag - Provider: Héctor Morris RN) 1740 (Given - New Bag - Provider: Sharlene Nix RN) micafungin (MYCAMINE) 100 mg in sodium 1759 (Given - New chloride 0.9% (NS) 100 mL IVPB (MB+) Bag - Provider: 100 mg, Intravenous, 100 mL, Administer Jane baker over 60 Minutes, at 100 mL/hr, EVERY 24 KOBI Helms) HOURS, First dose on Fri09/15/20 at 1800 , Until Discontinued, PROTECT FROM LIGHT 0828 (Given - Provider: Sharlene Nix, RN)1 214 (Med Not Given - Provider: Sharlene Nix RN - Reason: Patient Refused)1741 (Given - Provider: Sharlene Nix RN)2018 (Given - Provider: Kelly Gaytan RN) 0839 (Given - Provider: Jane hernandez, RN)1426 (Med Not Given - Provider: Jane Helms RN - Reason: Patient Refused) naphazoline 0.025 % /pheniramine 0.3 % 1434 (Given - (NAPHCON-A) ophthalmic solution 1 drop Provider: Mirlande ia 1 drop, Both Eyes, FOUR TIMES DAILY, Nicola green, First dose on Fri09/19/20 at 1430, Until RN)1619 (Giv en - Discontinued Provider: Jane Helms RN)210 (Given - Provider: Héctor Morris RN) 2016 (Patch/Topical Removed - Provider: Kelly Gaytan RN)203 (Patch/Topical Applied - Provider: Kelly Gaytan RN) 1545 (Due: Patch/Topical Removed - Provi edson: Ku, Orders Discontinue - Comment: Time automatically adjusted from order being discontinued) nicotine (NICODERM CQ STEP 2) 14 mg/day 2101 (Patch/ Topical patch 1 patch Removed - Provider: 1 patch, Transdermal, Administer over 24 Héctor Wi lson, Hours, EVERY 24 HOURS, First dose on Fri RN)210209/04/20 at 1945, Until Discontinued (Patch/Topical Applied - Provider: Héctor Morris RN) 0827 (Given - Provider: Sharlene Nix RN) 0839 (Given - Provider: Jane hernandez, KOBI) oxybutynin XL (DITROPAN XL) tablet 15 mg 0900 (Given - 15 mg, Oral, DAILY, First dose on Fri Provider: Ansley hickey 09/04/20 at 1645, Until Discontinued, Do Nicola Are valo, not crush or chew RN) 0827 (Given - Provider: Sharlene Nix, RN) 0839 (Given - Provider: Jane hernandez, KOBI) pantoprazole DR (PROTONIX) tablet 40 mg 0900 (Given - 40 mg, Oral, DAILY, First dose on Fri Provider: Ansley hickey 09/05/20 at 0900, Until Discontinued, Do Petersen Are valo, not crush or chew tablet. RN) 0828 (Patch/Topical Verified - Provider: Sharlene Nix RN)2022 (Patch/Topical Verified - Provider: Kelly Gaytan, RN) 0843 (Patch/Topical Verified - Provider: Jane Helms RN) Patch Documentation - Scopolamine base 0904 (Patch/T opical 1MG/72HR 1 patch(Linked Group 1) Verified - Provider : 1 patch, Transdermal, Administer over 12 Jane Xie marlon Hours, TWICE DAILY, First dose on Fri KOBI Helms)04 0909/05/20 at 2100, Until Discontinued, (Patch/Topical Documentation of Patch Verified - Provider: Héctor Morris RN) 0827 (Given - Provider: Sharlene Nix RN)2 018 (Given - Provider: Kelly Gaytan, KOBI) 0837 (Given - Provider: Jane hernandez, KOBI) polyethylene glycol 3350 (MIRALAX) 0859 (Given - packet 17 g Provider: Jane 17 g (1 packet), Oral, TWICE DAILY, Nicola Helms , First dose on Fri09/04/20 at 2100, Until RN)210 (Gi felix - Discontinued, 8.5 GRAMS = 0.5 PACKET 17 Provider: Ni cholas GRAMS = 1 PACKET 34 GRAMS = 2 PACKETS KOBI Morris) 1050 (Patch/Topical Removed - Provider: Sharlene Nix RN)1147 (Patch/Topical Applied - Provider: Sharlene Nix RN) 1545 (Due: Patch/Topical Removed - Provi edson: Ku, Orders Discontinue - Comment: Time automatically adjusted from order being discontinued) scopolamine (TRANSDERM-SCOP) 1mg over 3 days patch 1 patch(Linked Group 1) 1 patch, Transdermal, Administer over 7 2 Hours, EVERY 72 HOURS, First dose on 09/05/20 at 1100, Until Discontinued, Each 1.5 mg patch is formulated to deliver in-vivo approximately 1 mg of scopolamine over 3 days. Apply to hairless area of skin behind the ear. 0827 (Given - Provider: Sharlene Nix RN)2 017 (Given - Provider: Kelly Gaytan, RN) 0839 (Given - Provider: Jane hernandez, KOBI) senna/docusate (SENOKOT-S) tablet 1 0900 (Given - tablet Provider: Jane 1 tablet, Oral, TWICE DAILY, First dose Nicola taylor, on Fri09/04/20 at 2100, Until RN)210 (Given - Discontinued, Hold for loose stools Provider: Cristal Morris RN) 0042 (Given - Provider: Héctor Morris, KOBI)0825 (Given - Provider: Sharlene Nix RN)1544 (Given - Provider: Sharlene Nix RN) 0027 (Given - Provider: Kelly Gaytan RN) 0843 (Given - Provider: Jane Helms RN) sodium chloride PF 0.9% flush 10 mL 0046 (Given - 10 mL, Flush, FLUSH THREE TIMES DAILY, Provider: Jalen armenta First dose on Fri09/12/20 at 1800, Until KOBI Morris) 0901 Discontinued, Flush central, Midline or (Given - Pro vider: PICC line, with 5-10 mL every 8 hours Jane Petersen using the push-pause (turbulent) method. KOBI Helms )1619 Flush all lumens that do not have a (Given - Provide r: continuous infusion. After obtaining Jane Petersen blood specimen, flush catheter with 20 KOBI Helms) mL. 0825 (Given - Provider: Sharlene Nix RN)2 018 (Given - Provider: Kelly Gaytan, KOBI) 0844 (Given - Provider: Jane hernandez, KOBI) sodium chloride PF 0.9% syringe 10 mL 0901 (Given - 10 mL, Intravenous, TWICE DAILY, First Provider: Mirlande ia dose on Fri09/13/20 at 2100, Until Nicola Helms, Discontinued, Flush drain as ordered. RN)210 (Given - See Abscess Drain Maintenance Order. Provider: Anirudh Morris RN) 0832 (Given - Provider: Sharlene Nix RN)2 017 (Given - Provider: Kelly Gaytan RN) 0839 (Given - Provider: Jane hernandez, KOBI) vancomycin (FIRVANQ) oral solution 125 0859 (Given - mg Provider: Jane 125 mg, Oral, TWICE DAILY, First dose on Hany Gamino 09/12/20 at 1000, Until Discontinued RN)2101 (Giv en - Provider: Héctor Morris, KOBI) 09/20/2020 09/21/2020 Medication Order 09/19/2020 acetaminophen (TYLENOL) tablet 650 mg 650 mg, Oral, EVERY 6 HOURS PRN, Starting Rand 09/14/20 at 1900, Until Rand 09/21/20 at 1745, Pain non-opioid: may be used alone or in combination with opioi d analgesia, TOTAL ACETAMINOPHEN DOSE NOT TO EXCEED 4GM DAILY aluminum/magnesium hydroxide (MAALOX) oral suspension 30 mL 30 mL, Oral, NEEDED, Starting 09/11/20 at 0645, Until Rand 09/21/20 at 1745, Indigestion/Heartburn, Maximum: 9 0 mL per 24 hours. 1014 (Given - Provider: Sharlene Nix RN) 0909 (Given - Provider: Jane hernandez, KOBI)1433 (Given - Provider: Jane Helms RN) HYDROcodone/acetaminophen (NORCO) 5/325 0350 (Given - mg tablet 1-2 tablet Provider: Héctor 1-2 tablet, Oral, EVERY 6 HOURS PRN, KOBI Morris)094 6 Starting Rand 09/14/20 at 1851, Until Rand (Given - Prov ider: 09/21/20 at 1745, Pain PO, TOTAL Jane Petersen ACETAMINOPHEN DOSE NOT TO EXCEED 4GM KOBI Helms)143 4 DAILY NOTE: This is a HIGH ALERT (Given - Provider: Medication. Jane Helms, KOBI)2104 (Given - Provider: Héctor Morris, KOBI) hyoscyamine (ANASPAZ) rapid dissolve tablet 0.125 mg 0.125 mg, Sublingual, EVERY 4 HOURS PRN, Starting 09/04/20 at 1547, Unti l Rand 09/21/20 at 1745, Bladder Spasms lidocaine PF 1% (10 mg/mL) injection 0. 2 mL 0.2 mL, Injection, NEEDED, Starting 09/04/20 at 0948, Until Rand 09/21/20 a t 1745, Other..., for IV insertion melatonin tablet 3 mg 3 mg, Oral, AT BEDTIME PRN, Starting Mo n 09/04/20 at 1941, Until Rand 09/21/20 at 1745, Insomnia nalOXone (NARCAN) injection 0.08 mg 0.08 mg, Intravenous, NEEDED, Starting 09/04/20 at 1126, Until Rand 09/21/20 at 1745, Respiratory Depression, -FOR RESPIRATORY RATE < 7/MIN: Dilute one ampule of naloxone 0.4 mg (1mL) wit h 9 mL NS for injection (for a total of 1 0 mL of dilution). Inject 0.08 mg (2mL) o f diluted naloxone every 2 minutes until respiratory rate improves (RR > 7/min), and /or drowsiness abates. Call Physician. -IF PATIENT IS APNEIC: Give naloxone 0.4 mg every 2 minutes until respiratory rate improves (RR > 7/min) and call Rapid Response Team. PROTECT FROM LIGHT nicotine polacrilex (NICORETTE) gum 2 m g 2 mg, Buccal, EVERY 1 HOUR PRN, Starting 09/04/20 at 1942, Until Rand 09/21/20 at 1745, Cravings 0909 (Given - Provider: Tonia Santos)19 30 (Given - Provider: Kelly Gaytan, KOBI) ondansetron (ZOFRAN) injection 4 mg 0351 (Given - 4 mg, Intravenous, EVERY 6 HOURS PRN, Provider: Jalen armenta Starting 09/04/20 at 1941, Until [facility] KOBI Morris) 09/21/20 at 1745, Nausea/Vomiting Injectable phenoL (CLORASEPTIC) spray 2 spray 2 spray, Mouth/Throat, NEEDED, Starting 09/05/20 at 1823, Until Rand 09/21/20 at 1745, Mouth/Throat Pain 2219 (Given - Provider: Kelly Gaytan, KOBI) 1425 (Given - Provider: Jane hernandez RN) prochlorperazine (COMPAZINE) injection 10 mg 10 mg, Intravenous, EVERY 6 HOURS PRN, Starting Rand 09/07/20 at 0307, Until Rand 09/21/20 at 1745, Nausea/Vomiting Injectable, PROTECT FROM LIGHT -- May b e given undiluted, or each 5mg may be diluted with 9 mL of NS to facilitate titration. simethicone (MYLICON) chew tablet 80 mg 80 mg, Oral, EVERY 6 HOURS PRN, Starting 09/04/20 at 1942, Until Rand 09/21/20 at 1745, Flatulence Order Group 1: scopolamine (TRANSDERM-SCOP) 1mg over 3 days patch 1 patchJump to med 1 patch, Transdermal, Administer over 7 2 Hours, EVERY 72 HOURS, First dose on Fri09/05/20 at 1100, Until Discontinued
Each 1.5 mg patch is formulated to deliver in-vivo approximately 1 mg of scopolamine over 3 days. Apply to hairl ess area of skin behind the ear.
And Patch Documentation - Scopolamine base 1MG/72HR 1 patchJump to med 1 patch, Transdermal, Administer over 1 2 Hours, TWICE DAILY, First dose on Fri09/05/20 at 2100, Until Discontinued
Documentation of Patch
documented in this encounter Orders First Ordered Date Medications Ordered That Might Not Have Count Last Ordered Date Been Administered DAPTOmycin (CUBICIN) injection 230 mg 1 09/15/2020 DAPTOmycin (CUBICIN) injection 340 mg 1 09/15/2020 DAPTOmycin (CUBICIN) injection 550 mg 1 09/15/2020 09/04/2020 acetaminophen (TYLENOL) tablet 650 mg 2 09/14/2020 cefTRIAXone (ROCEPHIN) IVP 2 g 3 021 metroNIDAZOLE (FLAGYL) tablet 500 mg 1 0 09/13/2020 vancomycin (VANCOCIN) 1,250 mg in sodium 2 09/09/2020 chloride 0.9% (NS) 275 mL IVPB vancomycin (VANCOCIN) 1,500 mg in sodium 1 09/09/2020 chloride 0.9% (NS) 280 mL IVPB vancomycin, pharmacy to manage 1 021 09/04/2020 nalOXone (NARCAN) injection 0.08 mg 2 Adult Continuous Parenteral Nutrition 1 09/04/2020 (PN) diphenhydrAMINE (BENADRYL) injection 1 0 09/04/2020 12.5 mg FENTANYL CITRATE (PF) 50 MCG/ML IJ SOLN 1 09/04/2020 (Cabinet Override) fentaNYL citrate PF (SUBLIMAZE) 1 2020 injection 25 mcg fentaNYL citrate PF (SUBLIMAZE) 1 2020 injection 25-50 mcg heparin (porcine) PF syringe 5,000 Units 1 09/04/2020 HYDROmorphone injection (DILAUDID) 0.2 1 09/04/2020 mg lactated ringers infusion 1 09/04/2020 LACTATED RINGERS IV SOLP (Cabinet 1 08/16 Override) lidocaine PF 1% (10 mg/mL) injection 0.2 1 09/04/2020 mL methocarbamoL (ROBAXIN) tablet 750 mg 1 09/04/2020 nicotine polacrilex (NICORETTE) gum 2 mg 1 09/04/2020 ondansetron (ZOFRAN ODT) rapid dissolve 1 09/04/2020 tablet 4 mg oxyCODONE (ROXICODONE) tablet 5-10 mg 2 09/04/2020 First Ordered Date Lab Orders Without Results Count Last Ordere d Date PREPARE RBC'S 1 09/06/2020 First Ordered Date EKG Orders Without Results Count Last Ordere d Date 09/13/2020 ECG 12-LEAD 2 09/19/2020 First Ordered Date Procedures Count Last Ordered Date 09/09/2020 CONSULT IV THERAPY TEAM 4 09/12/2020 First Ordered Date Diet Count Last Ordered Date DISCHARGE DIET REGULAR 1 09/20/2020 DISCHARGE DIET SUPPLEMENT 1 09/20/2020 First Ordered Date Nursing Count Last Ordered Date DISCHARGE ORDERS COMPLETE NOTIFICATION 1 09/21/2020 DISCHARGE ACTIVITY DRIVING 1 09/20/2020 DISCHARGE ACTIVITY OTHER 1 09/20/2020 DISCHARGE ACTIVITY STRENUOUS 1 DISCHARGE CONTACT 1 09/20/2020 DISCHARGE EDUCATION 1 09/20/2020 DISCHARGE J-VAC DRAIN CARE 1 09/20/2020 DISCHARGE OSTOMY CARE 1 09/20/2020 DISCHARGE PICC LINE CARE 1 09/20/2020 DISCHARGE RETURN APPOINTMENT 1 DISCHARGE SIGNS/SYMPTOMS 1 09/20/2020 DISCHARGE URINARY CATHETER CARE 1 2020 DISCHARGE WOUND CARE 2 09/20/2020 09/12/2020 MAY USE LINE 2 09/14/2020 09/04/2020 NURSE COMMUNICATION 4 09/14/2020 POST PROCEDURE ACTIVITY 1 09/13/2020 POST PROCEDURE/OPERATIVE VITAL SIGNS 1 0 09/13/2020 09/04/2020 VITAL SIGNS FOR TRANSFUSION 2 09/06/2020 OSTOMY MARKING 2 09/04/2020 WEIGH PATIENT 1 09/04/2020 First Ordered Date Consult Count Last Ordered Date 09/16/2020 CONSULT CUSTOMER SERVICE OFFICER, PUSHER OPERATOR 2 09/18/2020 CONSULT INTERVENTIONAL RADIOLOGY 1 09/13 PHYSICIAN 09/04/2020 NUTRITION SUPPORT SERVICE 2 09/13/2020 TPN CONSULT 1 09/13/2020 CONSULT WOUND/OSTOMY TEAM NURSE 1 2020 CONSULT INFECTIOUS DISEASES PHYSICIAN 1 09/04/2020 First Ordered Date OT Count Last Ordered Date OT CONSULT OCCUPATIONAL THERAPY 1 2020 First Ordered Date PT Count Last Ordered Date PT CONSULT PHYSICAL THERAPY 1 09/04/2020 First Ordered Date Admission Count Last Ordered Date ADMIT TO INPATIENT 1 09/04/2020 CLARIFICATION ORDER - FOR ADT ADMIN USE 1 09/01/2020 ONLY First Ordered Date Discharge Count Last Ordered Date DISCHARGE PATIENT NOW 1 09/21/2020 [facility] First Ordered Date Equipment Count Last Ordered Date COMPRESSION DEVICE, LEG 1 09/05/2020 HEATING, MACHINE AK WITH PAD 1 1 First Ordered Date Vital Signs Count Last Ordered Date VITAL SIGNS 1 09/04/2020 First Ordered Date Activity Count Last Ordered Date MOBILITY 1 09/05/2020 First Ordered Date Discharge Contingent Count Last Ordered Date DISCHARGE PATIENT CONTINGENT 1 1 First Ordered Date SPECIALITY EQUIPMENT Count Last Ordered Date FAN 1 09/05/2020 First Ordered Date Order Set Communication Count Last Ordered D ate VTE DRUG PROPHYLAXIS CONTRAINDICATED 1 0 09/04/2020 First Ordered Date Intake & Output Count Last Ordered Date INTAKE AND OUTPUT 1 09/04/[address] & Maintain Count Last Ordered Date PLACE AND MAINTAIN SCD 1 09/04/2020 First Ordered Date ADT Patient Update Count Last Ordered Date CHANGE SERVICE / LEVEL OF CARE (NO BED 1 09/13/2020 REQUEST) documented in this encounter Additional Health Concerns Last Indicated Resolved Time Infection Onset Date 07/03/2020 09/13/2020 9:08 PM CDT VRE 06/29/2020 09/13/2020 09/27/2020 8:54 AM CDT VRE 06/29/2020 Assessment Noted Time A fall risk assessment has been completed for the pat ient 09/21/2020 8:43 AM CDT documented as of this encounter
--- OUTSIDE RECORDS SUMMARY | 2020-11-03 21:49 | XMS REPORT | Encounter Summary ---
Author Author [facility] Organization [facility] Address Unknown Phone Unavailable Care Team Providers Care Dormitory Keeper Name Role Phone Geraldo Mcknight MD PCP Dale Leal DO 21 Unavailable Reason for Referral * Radiology Services (Routine) Referred By Contact Referred To Contact Status Reason Specialty Diagnoses / Procedures No Delarosa, [employer] DIVISION DIRECTOR [address] [facility] [address] [place] [address] Pending Review Radiology Diagnoses Colovesical fistula P rocedures CYSTOGRAM W/FLUOROSCOPY Electronically signed by No ZAPATA at Encounter Details Care Team Description [place] [address] [place] [address] [phone] Colovesical fistula (Primary Dx) 09/07/2020 Orders Only Urology: Aly Maceu [facility], [facility] [address] [place] [address] Social History Date Tobacco Use [...] Name Type Priority Associated Diag noses Expected: 09/21/2020 (Approximate), Expi res: 11/07/2020 CYSTOGRAM W/FLUOROSCOPY Imaging Routine Colove sical fistula documented as of this encounter Goals Goal [...] has been completed for the pat ient 09/07/2020 9:20 PM CDT documented as of this encounter
--- OUTSIDE RECORDS SUMMARY | 2020-11-03 21:49 | XMS REPORT | Encounter Summary ---
Author Author [facility] Organization [facility] Address Unknown Phone Unavailable Care Team Providers Care Waste Machine Tender Name Role Phone Geraldo Mcknight MD PCP Dale Leal DO 21 Unavailable Reason for Referral * Radiology Services (Routine) Referred By Contact Referred To Contact Status Reason Specialty Diagnoses / Procedures No Delarosa APRN-NP [address] [facility] [address] [place] [address] Rad[address] [place] [address] [address], [address] [place] [address] Canceled Radiology Diagnoses Colovesical fistula P rocedures CYSTOGRAM W/FLUOROSCOPY Electronically signed by No ZAPATA at Encounter Details Care Team Description Date [place] [address] [place], [place] [address] Colovesical fistula (Primary Dx) 09/20/2020 Orders Only Urology: Aly Campu [facility], [facility] [address] [place] [address] Social History Date Tobacco Use [...] Primary Intestinovesical fistula documented in this encounter Orders First Ordered Date Imaging Orders Without Results Count Last Or dered Date CYSTOGRAM W/FLUOROSCOPY 1 09/20/2020 documented in this encounter Additional Health Concerns Last Indicated Resolved Time Infection Onset Date 09/13/2020 09/27/2020 8:54 AM CDT VRE 06/29/2020 Assessment Noted Time A fall risk assessment has been completed for the pat ient 09/20/2020 8:26 PM CDT documented as of this encounter
--- OUTSIDE RECORDS SUMMARY | 2020-11-03 21:49 | XMS REPORT | Encounter Summary ---
Author Author [facility] Organization [facility] Address Unknown Phone Unavailable Care Team Providers Care Brattice Builder Name Role Phone Geraldo Mcknight MD PCP Dale Leal DO 21 Unavailable Reason for Visit * Auth/Cert Referred By Contact Referred To Contact Status Reason Specialty Diagnoses / Procedures Diagnoses Colovesical fistula Colovesical fistula [N32.1] P rocedures CO CSTC COMPL W/URTROILEAL CONDUIT/BLDR W/INT ANAST CO EXPLORATORY LAPAROTOMY CELIOTOMY W/WO BIOPSY SPX CO RPR RECRT INCAL/VNT HERNIA REDUCIBLE CO COLECTOMY PRTL W/COLOPROCTOSTOMY & COLOSTOMY CO COLECTOMY PRTL W/COLOPROCTOSTOMY & COLOSTOMY CYSTECTOMY - COMPLETE WITH URETEROILEAL CONDUIT/ SIGMOID BLADDER INCLUDING INTESTINAL ANASTOMOSIS EXPLORATORY LAPAROTOMY WITH/ WITHOUT BIOPSY REPAIR INCISIONAL/ VENTRAL HERNIA - REDUCIBLE - RECURRENT COLECTOMY WITH COLOPROCTOSTOMY AND COLOSTOMY - PARTIAL COLECTOMY WITH COLOPROCTOSTOMY AND COLOSTOMY - PARTIAL Encounter Details Care Team Description Date Type Department No Delarosa, HOPS FARMWORKER-MEDIA PROFESSIONAL [address] [facility] [address] [place] [address] 09/12/2020 Hospital Imaging, CT: Main C ampus, Encounter Main Hospital [address] [facility] [address] [place] [address] Social History Date Tobacco Use [...] (MB+) hours for 9 days. Stop date 09/2907/19/202009/20/2020 cefTRIAXone (ROCEPHIN) 2 2 grams IV 0 g solr every 24 hours. 07/19/2020 09/20/2020 dicyclomine (BENTYL) 10 Take one 90 capsule 3 mg capsule capsule by mouth three times daily before meals. Preference is to use trospium. This is only to be used if trospium is not available. Do not use both. 07/18/2020 09/20/2020 fluconazole (DIFLUCAN) Take one 0 200 mg tablet tablet by mouth daily. 07/18/2020 09/20/2020 furosemide (LASIX) 40 mg Take one 0 tablet tablet by mouth daily. 09/20/2020 10/03/2020 gabapentin (NEURONTIN) Take one 90 [...] tablet tablet by mouth twice daily. 07/18/2020 09/20/2020 metroNIDAZOLE (FLAGYL) Take one 0 500 mg tablet tablet by mouth twice daily. Take with food. Do not drink alcohol while on metronidazole . 09/20/2020 10/03/2020 micafungin (MYCAMINE) 100 Administer 0 mg/5 mL 100 mg in sodium one hundred chloride 0.9% (NS) 0.9 % mg through 100 mL IVPB vein every 24 hours for 9 days. Stop date 09/2909/20/2020 10/03/2020 Miscellaneous Medical Colostomy 20 each Supply [facility] supplies and accessories Dispense twenty of each [...] tablet by mouth daily for 5 days. 07/18/2020 09/20/2020 oxyCODONE (ROXICODONE) 5 Take one 45 tablet 0 mg tablet tablet to two tablets by mouth every 4 hours as needed 09/20/2020 10/03/[address] Take one 90 tablet 1 (PROTONIX) 40 mg tablet tablet by mouth twice daily. 07/19/2020 09/20/[address] Take one 90 tablet 1 (PROTONIX) 40 mg tablet tablet by mouth daily. 07/18/2020 10/03/2020 polyethylene glycol 3350 Take [...] twice daily. Flush Jvac twice daily 07/19/2020 09/20/2020 trospium XR (SANCTURA XR) Take one 90 capsule 3 60 mg capsuleIndications: capsule by Ureteral stricture, right mouth daily. This is preferred over dicyclomine which has also been ordered. Do not use both. 07/19/2020 10/03/2020 vancomycin (FIRVANQ) 25 Take 5 [...] Diag nosis CT ABD/PELV W CONTRAST Routine 09/12/2020 7:[address] CHEST W CONTRAST Routine 09/12/2020 7:27 PM CDT documented in this encounter Visit Diagnoses Not on filedocumented in this encounter Administered Medications Action Date Dose Rate Site Medication Order MAR Action 09/12/2020 7:30 PM CDT 100 mL iohexoL (OMNIPAQUE-350) 350 mg/mL Given injection 100 mL 100 mL, Intravenous, ONCE, 1 dose, On Fri09/12/20 at 1930, NOTE: This is a HIGH ALERT Medication. 09/12/2020 7:30 PM CDT 50 mL 2.5 mL/hr sodium chloride PF 0.9% injection 50 mL Given 50 mL, Intravenous, at 2.5 mL/hr, ONCE, 1 dose, On Fri09/12/20 at 1930, DO NOT SEND this medication unless it is requested. This med is usually availabl e in floor stock., Intra-procedure (IR) documented in this encounter Additional Health Concerns Last Indicated Resolved Time Infection Onset Date 07/03/2020 09/13/2020 9:08 PM CDT VRE 06/29/2020 Assessment Noted Time A fall risk assessment has been completed for the pat ient 09/12/2020 8:33 PM CDT documented as of this encounter
--- OUTSIDE RECORDS SUMMARY | 2020-11-03 21:50 | XMS REPORT | Encounter Summary ---
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 37 C (98.6 F) (09/13 1135) Pulse: 89 (09/13 1119) Respirations: 16 PER MINUTE (09/13 111) SpO2: 97 % (09/13 111) BP: (75-111)/(36-71) Temp: [36.9 C (98.4 F)-37.4 [...] Results Component Value Date/Time NA 134 (L) 09/13/20208 K 4.2 09/13/2020257 CL 100 09/13/2020257 CO2 24 09/13/2020257 BUN 12 09/13/20208 CR 0.85 09/13/2020257 ] Physical Exam: GEN: [...] intact. Sami Bermudez MD Team Pager: # [phone] Associated attestation - Anurag Chow MD - [...] - PICC placed 09/12 for access - MEDICAL EDITOR: lasix, bupropion, synthroid - Nicoderm patch and gum - OOB/Amb - Dispo: Continue inpatient care Prophylaxis Review: - DVT: SCD's, Lovenox - Catheter: Yes - Abx: Yes Laure Hull MD PGY-1 Urology Please page urology retail loss prevention officer with questions SUBJECTIVE: Rapid responded overnight for [...] 8.0* PO4 3.5 Intake/Output: Date 09/12/20700 - 09/13/2069909/13/20700 - 09/14/20 07 Shift 1040-4370 0761-9784 24 Hour Total 2170-9638 1548-5034 24 Hour Total INTAKE Other 20 20 [...] 0 135 Shift Total(mL/kg) 790(10.8) 885(12) 1675(22.8) [facility] -386 -865 -5371 Weight (kg) 73.5 73.5 73.5 73.5 73.5 [...] to peripherally follow. Juany Ferguson MD Pager [phone] Please contact preferentially via Voalte Interval Hx/Subjective [...] PF immunization 100 mcg, 100 mcg, Intramuscular, Liquor Bridge Operator enoxaparin (LOVENOX) syringe 40 mg, 40 mg, Subcutaneous, QDAY(21) furosemide (LASIX) tablet 40 mg, 40 mg, [...] 1118) Temp: 37.5 C (99.5 F) (09/12 1118) Pulse: 101 (09/12 0949) Respirations: 18 PER MINUTE (09/12 1118) SpO2: 92 % (09/12 1118) BP: (78-109)/(48-63) Temp: [36.8 C (98.2 F)-37.5 [...] in appliance Lab Review Hematology Recent Labs 09/10/200 09/11/2043109/12/20 044 WBC 12.4* 12.9* 15.9* HGB 8.0* 8.0* 9.2* HCT 24.8* 23.3* 27.6* PLTCT 264 277 378 Chemistry Recent Labs 09/10/2043909/11/2043109/12/20 0440 NA 141 141 136* K 4.1 [...] edema. Pertinent radiology images viewed. * Kelly Salcedo, OT - 09/12/2020 3:00 PM CDT OCCUPATIONAL THERAPY NOTE Attempted to see patient for occupational therapy. Patient declines to participa te, reports she feels unwell - describes gas pain in her abdomen. RN reports katty n for picc line insertion and CT abdomen later this pm. Occupational therapy dustin l continue to follow to provide intervention as indicated. Kelly Salcedo, OTR/L [id number] * Argenis Ward RN - 09/12/2020 1:14 [...] powder and wipe away the excess 4. [place] no sting skin prep on powdered skin [...] My Assessment? 09/11/20 1546 Stoma Assessment Dark Edges;Dusky;Edema;Pale;Corona 09/12/20 1300 Drainage Description Brown;Green;Watery 09/12/20 1300 Peristomal Skin Assessment Unable to Assess 09/12/20 1300 Dressing Status Clean;Dry;Intact 09/12/20 1300 Drain Output (ml) 0 ml 09/11/20 2106 JACINTO Wilson, RN, TCRN Wound/Ostomy Nursing Consult Service Available via Spyra or [employer] M-F [phone] After hours please contact wound/business and financial counsel "call center trainer" via Voalte * Clara Shrestha - 09/12/2020 [...] intact. Sami Bermudez MD Team Pager: # [phone] * Nishant Perry MD - 09/12/2020 5:57 [...] ngtd x1 > 09/11 Hgb 8 - MEDICAL EDITOR: lasix, bupropion, synthroid - Nicoderm patch and gum - OOB/Amb - Dispo: Continue inpatient care Prophylaxis Review: - DVT: SCD's, Lovenox - Catheter: Yes - Abx: Yes Nishant Perry MD PGY-3 Urology Please page urology retail loss prevention officer with questions SUBJECTIVE: No acute events overnight. Tolerated some regular diet yesterday. Nausea this mo rning without emesis. Ambulating. Minimal output per colostomy. OBJECTIVE: Vital Signs: Most Recent Vital Signs: Past 24 Ho urs BP: 90/53 (09/12 337) Temp: 36.8 C (98.2 F) (09/12 337) Pulse: 86 (09/12 337) Respirations: 18 PER MINUTE (09/12 337) SpO2: 93 % (09/12 337) Weight: 73.5 [...] PO4 3.5 Intake/Output: Date 09/11/20700 - 09/12/20 0700 09/12/20 07 - 09/13/20 0700 Shift 2107-5536 8195-0333 24 Hour Total 1602-6924 4665-4861 24 Hour Total INTAKE P.O. 240 240 [...] 5 125 Shift Total(mL/kg) 1325(18) 630(8.6) 1955(26.6) NET -1065 -630 -1695 Weight (kg) 73.5 73.5 73.5 73.5 73.5 [...] Tub: Tub/Shower Unit Prior Function Level Of [place]: Independent with ADLs and functional transfers;Independen t [...] Recommendations Recommendation: Inpatient setting Therapist: Kelly Salcedo OTR/Valerie [id number] Date: 09/11/2020 * Argenis aWrd RN - 09/11/2020 2:45 PM CDT Images from the original note were not included. Wound Ostomy Note NAME:Carlos Alberto Torres :1950 AGE: 70 y.o. ADMISSION DATE: 09/04/2020 DAYS ADMITTED: LOS: 7 days Reason for Consult/Visit: ostomy education Assessment/Plan: Principal Problem: Colovesical fistula Active Problems: Acute blood loss anemia J LUIS (acute kidney injury) ([facility]) Malnutrition (HCC) Bacteremia due to methicillin resistant [...] and wipe aw ay the excess 4. [place] no sting skin prep on powdered skin [...] TCRN Wound/Ostomy Nursing Consult Service Available via Spyra or [employer] [phone] After hours please contact wound/business and financial counsel "call center trainer" via Spyra * Juany Ferguson MD - 09/11/2020 2:41 [...] 7-day total course from PICC removal through 7/3. 3. Continue PO vancomycin for C.diff ppx, [...] to peripherally follow. Juany Ferguson MD Pager [phone] Please contact preferentially via Voalte Interval Hx/Subjective [...] PF immunization 100 mcg, 100 mcg, Intramuscular, Liquor Bridge Operator enoxaparin (LOVENOX) syringe 40 mg, 40 mg, [...] 24 H our Range BP: 93/45 (09/11 1128) Temp: 36.9 C (98.4 F) (09/11 1128) Pulse: 74 (09/11 0813) Respirations: 18 PER MINUTE (09/11 1128) SpO2: 94 % (09/11 1128) BP: (89-106)/(45-62) Temp: [36.9 C (98.4 F)-37.2 [...] Results Component Value Date/Time HGB 8.0 (L) 09/11/2020431 WBC 12.9 (H) 09/11/2020431 ] Lab Results Component Value Date/Time NA 141 09/11/2020431 K 3.2 (L) 09/11/2020431 CL 110 09/11/2020431 CO2 20 (L) 09/11/2020431 BUN 10 09/11/2020431 CR 0.72 09/11/2020 0432 ] Physical Exam: GEN: NAD, Alert CARDIO: RRR, well perfused PULM: No respiratory distress ABD: Soft, minimally distended, appropriately TTP, incision c/d/i, ostomy pink a nd viable with ostomy output. EXT: No cyanosis or edema NEURO: Gross motor in UE and LE b/l. Sensory intact. Sami Bermudez MD Team Pager: # [phone] Associated attestation - Anurag Chow MD - [...] ngtd x1 > 09/11 Hgb 8 - MEDICAL EDITOR: lasix, bupropion, synthroid - Nicoderm patch and gum - OOB/Amb - Dispo: Continue inpatient care Prophylaxis Review: - DVT: SCD's, Lovenox - Catheter: Yes - Abx: Yes Laure Hull MD PGY-1 Urology Please page urology retail loss prevention officer with questions SUBJECTIVE: No acute events overnight. [...] 3.5 Intake/Output: Date 09/10/20 07 - 09/11/20 0700 09/11/20 07 - 09/12/20 0700 Shift 7187-8778 7091-8627 24 Hour Total 9076-8838 6717-5752 24 Hour Total INTAKE P.O. 520 0 [...] 0 160 Shift Total(mL/kg) 1065(14) 1855(24.4) 2920(38.3) NET -525 -4171 -3947 Weight (kg) 76.2 76.2 76.2 76.2 76.2 [...] intact. Sami Bermudez MD Team Pager: # [phone] Associated attestation - Anurag Chow MD - [...] > Repeat blood cultures drawn 09/10 - MEDICAL EDITOR: lasix, bupropion, synthroid - Nicoderm patch and gum - OOB/Amb - Dispo: Continue inpatient care Prophylaxis Review: - DVT: SCD's, Lovenox - Catheter: Yes - Abx: Yes Laure Hull MD PGY-1 Urology Please page urology retail loss prevention officer with questions SUBJECTIVE: No acute events overnight. [...] 78 CA 7.7* PO4 3.5 Intake/Output: Date 09/09/20700 - 09/10/20 0709/10/20700 - 09/11/20 0700 Shift 1900-0700 24 Hour Total 8313-2457 1973-4396 24 Hour Total INTAKE I.V.(mL/kg/hr) 400 400 [...] Shift Total(mL/kg) 415(5.4) 930(12.2) 1345(17.7) NET -125 -430 -555 Weight (kg) 76.2 76.2 76.2 76.2 76.2 [...] intact. Sixto Ordonez MD Team Pager: # [phone] Associated attestation - Anurag Chow MD - [...] the patient with dylan Ferguson MD Pager [phone] Please contact preferentially via Voalte Interval Hx/Subjective [...] PF immunization 100 mcg, 100 mcg, Intramuscular, Liquor Bridge Operator enoxaparin (LOVENOX) syringe 40 mg, 40 mg, [...] Infusions: Adult Continuous Parenteral Nutrition (PN) Stopped (09/09/20611) PRN and Respiratory Meds:HYDROmorphone (DILAUDID) injection Q2H [...] Line today, blood cultures later today. - MEDICAL EDITOR: lasix, bupropion, synthroid - Nicoderm patch and gum - OOB/Amb - Dispo: Continue inpatient care Prophylaxis Review: - DVT: SCD's, Lovenox - Catheter: Yes - Abx: Yes Laure Hull MD PGY-1 Urology Please page urology retail loss prevention officer with questions SUBJECTIVE: No acute events overnight. Oxygen titrated down to 2L. Pain is controlled. Havi ng some nausea, which has resolved, no emesis. Abdominal pain improved. Has not ambulated. Liquid stool in ostomy. OBJECTIVE: Vital Signs: Most Recent Vital Signs: Past 24 Ho urs BP: 116/55 (09/09 0400) Temp: 36.9 C (98.4 F) (09/09 0400) Pulse: 81 (09/09 040) Respirations: 18 PER MINUTE (09/09 040) SpO2: 94 % (09/10 399) BP: (81-116)/(49-62) [...] PO4 3.4 Intake/Output: Date 09/08/20700 - 09/09/20 0709/09/20700 - 09/10/20 07 Shift 9594-0535 1713-0828 24 Hour Total 2844-2825 5352-4610 24 Hour Total INTAKE P.O. 100 100 [...] 300 Shift Total(mL/kg) 1955(25.7) 625(8.2) 2580(33.9) NET -1836 -977 -4561 Weight (kg) 76.2 76.2 76.2 76.2 76.2 [...] fever 09/08 AM and increasing O2 re quirement. Patient [...] the patient with dylan Ferguson MD Pager [phone] Please contact preferentially via Voalte Interval Hx/Subjective [...] PF immunization 100 mcg, 100 mcg, Intramuscular, Liquor Bridge Operator enoxaparin (LOVENOX) syringe 40 mg, 40 mg, [...] support. Patient is discharging to placement per note. Demonstrated how to empty/change pouch. Topics discussed: frequency of emptying/ changing pouch, how to empty/change pouch, stoma/peristomal skin care, pouch opt ions, how to cut pouch. Questions answered. OSTOMY CARE: Suggested Pouching Supplies: [employer] #[phone] 1. Change pouch with any sign of leaking. Do not reinforce leaking pouch with tape 2. Clean skin with water only - no soap or wipes 3. If skin is broken down surrounding stoma, sprinkle stoma powder and wipe aw ay the excess 4. [place] no sting skin prep on powdered skin [...] emptying and pouch changes. Patient enrolled in [facility] program. Colostomy 09/04/20 1419 Upper Right Quadrant (Active) 09/04/20 1419 Upper Right Quadrant Wound Image 09/08/20 1000 Agree With My Assessment? 09/05/20 1246 Stoma Assessment Red;Dusky;Dark Edges 09/08/20 1000 Drainage Description Sanguineous 09/08/20 1000 Peristomal Skin Assessment Dry;Intact 09/08/20 1000 Dressing Status Changed/New 09/08/20 1000 Drain Output (ml) 0 ml 09/07/20 1700 JACINTO Wilson, RN, TCRN Wound/Ostomy Nursing Consult Service Available via Spyra or [employer] [phone] After hours please contact wound/business and financial counsel "call center trainer" via [employer] * Kelly Salcedo, OT - 09/08/2020 9:25 [...] Tub: Tub/Shower Unit Prior Function Level Of [place]: Independent with ADLs and functional transfers;Independen t [...] assistance at time of discharge. Therapist: Kelly Salcedo, KARLYR/L [id number] Date: 09/08/2020 * Roger Sanz, PT - [...] Owned Equipment: Roller Walker Home Situation: Lives [facility] Roommate(Fiance) Type of Home: House Entry Stairs: [...] requires inpatient level of care. However, typ [facility] progression for patient condition would anticipate home with assistance at time of discharge. Patient Currently Requires Equipment: Owns what is needed Therapist Roger Sanz PT, DPT Date 09/08/2020 * Laure Hull [...] 8.4 > 09/08 blood cultures pending - MEDICAL EDITOR: lasix, bupropion, synthroid - Nicoderm patch and gum - OOB/Amb - Dispo: Continue inpatient care Prophylaxis Review: - DVT: SCD's, Lovenox - Catheter: Yes - Abx: Yes Laure Hull MD PGY-1 Urology Please page urology retail loss prevention officer with questions SUBJECTIVE: Febrile overnight and requiring 7L O2. Pain is controlled. Nausea improved. Abdo hannah pain improved. Has not ambulated. Passing flatus OBJECTIVE: Vital Signs: Most Recent Vital Signs: Past 24 Ho urs BP: 105/54 (09/08 329) Temp: 39.2 C (102.6 F) (09/08 329) Pulse: 108 (09/08 0330) Respirations: 18 PER MINUTE (09/08 329) SpO2: [...] yellow urine. Labs: Hematology Chemistry Recent Labs 09/08/20 0330 WBC 11.9* HGB 8.4* PLTCT 211 Recent Labs 09/08/20 0330 NA 143 K 3.7 CL 109 CO2 27 BUN 19 CR 0.76 GFR >60 GLU 101* CA 7.7* PO4 2.6 Intake/Output: Date 09/07/20700 - 09/08/20 0709/08/20700 - 09/09/20 07 Shift 5020-6064 3415-0682 24 Hour Total 5078-7404 6720-0584 24 Hour Total INTAKE P.O. 0 0 [...] Emesis 400 400 Emesis 400 400 Drains 9627 414 5962 Drain Output (ml) (Colostomy 09/04/20 1419 Upper Right Quadrant) 0 0 Drain Output (ml) (Giovanni Santoro Drain 09/04/20 1419 Anterior Abdomen #1) 30 2 0 50 Drain Output (ml) (Nasogastric Tube 09/07/20 1000 Nose 16 FR) 5568 037 7266 Shift Total(mL/kg) 2980(39.1) 900(11.8) 3880(50.9) NET -8060 -014 -6439 Weight (kg) 76.2 76.2 76.2 76.2 76.2 [...] TCRN Wound/Ostomy Nursing Consult Service Available via [employer] or [employer] [phone] After hours please contact wound/business and financial counsel "call center trainer" via Voalte * Rachel Carrion, PT - [...] as indicated. Therapist: Rachel [place] DPT [id number] Date: 09/07/2020 * Paloma Wilkes, KARLY - 09/07/2020 11:40 AM CDT OCCUPATIONAL THERAPY NOTE Name: Carlos Alberto Torres : 1950 Age: 70 y.o. Admission Date: 09/04/2020 LOS: 3 days Patient declined to participate despite encouragement and education about the ro le and benefits of occupational therapy, asking to "rest some more". Occupatio nal therapy will continue to follow and provide intervention as indicated/able. Therapist: Paloma Wilkes, SHAUN/Valerie [id number] Date: 09/07/2020 * Leela Mullen MD - [...] staffed with Dr. Marty Mullen MD Pager [phone] Please contact preferentially via Voalte Interval Hx/Subjective [...] PF immunization 100 mcg, 100 mcg, Intramuscular, Liquor Bridge Operator enoxaparin (LOVENOX) syringe 40 mg, 40 mg, [...] follow. Juany Ferguson MD Infectious Diseases Pager [phone] Please use Voalte to contact ID. * Tenzin Irvin, - 09/07/2020 7:48 AM CDT Surg Onc/Colorectal [...] discussed with Dr. Jasbir Irvin DO Pager [phone] SUBJECTIVE: Patient with nausea and small amount [...] 1525 09/04/20201409/05/20 0330 09/06/20 0355 09/06/20 1220 09/07/200 HGB -- -- 11.2* 9.2* 8.7* 5.9* [...] 90 -- -- -- Glucose: (!) 153 (09/07/20329) POC Glucose (Download): (!) 125 (09/06/202112) Intake/Output [...] 09/06. > 09/07: Hgb 9.5 (7.9) - MEDICAL EDITOR: lasix, bupropion, synthroid - Nicoderm patch and gum - OOB/Amb - Dispo: Continue inpatient care Prophylaxis Review: - DVT: SCD's, Start prophylaxis this AM - Catheter: Yes - Abx: Yes Laure Hull MD PGY-1 Urology Please page urology retail loss prevention officer with questions SUBJECTIVE: Overnight, no acute events. [...] 8.2* PO4 1.9* Intake/Output: Date 09/06/20700 - 09/07/2069909/07/20700 - 09/08/20 07 Shift 6896-8346 0155-8666 24 Hour Total 6422-6899 6211-3839 24 Hour Total INTAKE P.O. 450 450 [...] 0828 Flank, Left Lower Lateral 8 FR) 319 548 1379 Drains 45 140 185 Drain Output (ml) [...] follow and provide intervention as indicated. Therapist: SHAUN Aviles/Valerie Date: 09/06/2020 * Leela Mullen MD - [...] staffed with Dr. Marty Mullen MD Pager [phone] Please contact preferentially via Voalte Interval Hx/Subjective [...] PF immunization 100 mcg, 100 mcg, Intramuscular, Liquor Bridge Operator fluconazole (DIFLUCAN) tablet 200 mg, 200 mg, [...] (09/06 1222) Respirations: 18 PER MINUTE (09/06 122) SpO2: 94 % (09/06 1222) BP: (76-102)/(41-57) [...] 09/10. Juany Ferguson MD Infectious Diseases Pager [phone] Please use Voalte to contact ID. * [...] Shannan Noel MD Acute Pain, PGY4 Pager [phone] Subjective Visual Analog Scale (VAS) at rest (0 - 10 scale): 5 Patient satisfied with pain control: Yes Side effects: none Objective Vital Signs BP: 90/43 (09/06 1118) Temp: 37.2 C (99 F) (09/06 111) Pulse: 91 (09/06 1118) Respirations: 18 PER MINUTE (09/06 111) SpO2: 93 % (09/06 1117) Level of Consciousness: Awake/alert Neurologic Function Sensory [...] treatment plan unless otherwise noted. * Argenis Ward RN - 09/06/2020 11:00 AM CDT Stopped [...] family. Plan for further teaching tomorrow between 6902-8117. JACINTO Wilson, RN, TCRN Wound/Ostomy Nursing Consult Service Available via Spyra or [employer] M-F [phone] After hours please contact wound/business and financial counsel "call center trainer" via [employer] * Denise Resendiz PT - 09/06/2020 9:30 AM CDT PHYSICAL THERAPY NOTE Name: Carlos Alberto Torres : 1950 Age: 70 y.o. Admission Date: 09/04/2020 LOS: 2 days Attempted to see patient this AM for PT/OT however asked to return in PM. Nick t declined to participate despite encouragement and education about the role and benefits of physical therapy. Physical therapy will continue to follow and pro vide intervention as indicated. Therapist: [place] [id number] Date: 09/06/2020 * Makenna Irving, RD - 09/06/2020 8:41 AM CDT Nutrition [...] PF immunization 100 mcg, 100 mcg, Intramuscular, Liquor Bridge Operator fluconazole (DIFLUCAN) tablet 200 mg, 200 mg, [...] so far. Reports at facility, PN ran 24/7 still & until transfer to ; was [...] additional copy of ostomy diet handout (noted commercial analyst already provided their education) during 09/05/20 visit. [...] Makenna Irving RD, LD, CNSC Available on [employer] | Office: [phone] * Sixto Nolan MD - 09/06/2020 7:23 [...] discussed with Dr. Jasbir Nolan MD Pager [phone] SUBJECTIVE: Patient having hypotension overnight with epidural [...] Labs 09/04/20 1155 09/04/20 1317 09/04/20 1525 09/04/20201409/05/2032909/06/20 0355 HGB -- -- 11.2* 9.2* 8.7* [...] -- 90 -- Glucose: (!) 117 (09/06/20 9505) POC Glucose (Download): (!) 138 (09/06/20 6484) Intake/Output Summary (Last 24 hours) at 09/06/2020 [...] 09/06. Will recheck CBC this afternoon - MEDICAL EDITOR: lasix, bupropion, synthroid - Nicoderm patch and gum - OOB/Amb - Dispo: Continue inpatient care Prophylaxis Review: - DVT: SCD's, Start prophylaxis this AM - Catheter: Yes - Abx: Yes Laure Hull MD PGY-1 Urology Please page urology retail loss prevention officer with questions SUBJECTIVE: Patient continues to have soft pressures. Symptomatic hypotension overnight, and epidural was paused. Hgb 5.9, with plans to transfuse 2upRBC. Pain is better co ntrolled. Tolerating clear liquid diet with baseline nausea, and no emesis. Has not ambulated. OBJECTIVE: Vital Signs: Most Recent Vital Signs: Past 24 Ho urs BP: 92/46 (09/06 0523) Temp: 37.1 C (98.7 F) (09/06 522) [...] 2.5 Intake/Output: Date 09/05/20 07 - 09/06/20 0709/06/20700 - 09/07/20 07 Shift 1692-1520 5875-2865 24 Hour Total 5609-3555 6455-4300 24 Hour Total INTAKE P.O. 0 480 [...] Total(mL/kg) 475(6.2) 620(8.1) 1095(14.4) NET -455 140 595 Weight (kg) 76.2 76.2 76.2 76.2 76.2 [...] care. Lorena Rodriguez MD, FACS * Larry Ramsay RN - 09/05/2020 6:44 PM CDT 09/05/20 1842 09/05/20 1843 Vitals Temp 37.1 C (98.7 F) -- [...] toleratin g chair mode in bed. Upon PT/director of rehabilitative services arrival, patient declined to parti cipate despite [...] Owned Equipment: Roller Walker Home Situation: Lives [facility] Roommate(Fiance) Type of Home: House Entry Stairs: [...] as indicated. Therapist Sheela Martinez, PT, DPT [id number] Date 09/05/2020 * Dale Kamara RN - [...] reports that patient will be placed at [facility] per MD recommendations. Colostomy 09/04/20 1419 Upper Right Quadrant (Active) 09/04/20 1419 Upper Right Quadrant Agree With My Assessment? 09/04/20 1900 Stoma Assessment Red;Edema 09/05/20 0900 Drainage Description Serosanguineous- bowel sweat 09/05/20 0900 Peristomal Skin Assessment Unable to Assess 09/05/20 0900 Dressing Status Intact;Dry;Clean 09/05/20 0900 Drain Output (ml) 25 ml 09/05/20 0840 JACINTO Wilson, RN, TCRN Wound/Ostomy Nursing Consult Service Available via [employer] or [employer] M-F [phone] After hours please contact wound/business and financial counsel "call center trainer" via Voalte * Enio Grant MD - [...] and discussed with Dr. Rosa Grant MD [id number] SUBJECTIVE: Soft pressures overnight, +1L bolus. Patient reports abdominal soreness, improvi ng, better with meds. Tolerating liquids. Some nausea. Has not been up out of be d. No ostomy function. OBJECTIVE: Vital Signs: Last Filed Vital Signs: 24 Hour Ran ge BP: 97/65 (09/05 326) ABP: 92/55 (09/04 [...] iate recs > 2u pRBC intraop > 09/05 Hgb 8.7, wbc 17.5 - MEDICAL EDITOR: lasix, bupropion, synthroid - Nicoderm patch and gum - OOB/Amb - Dispo: Continue inpatient care Prophylaxis Review: - DVT: SCD's, Start prophylaxis tonight - Catheter: Yes - Abx: Yes Laure Hull MD PGY-1 Urology Please page urology retail loss prevention officer with questions SUBJECTIVE: Overnight, had pain with [...] (09/04 918) Weight: 64.9 kg (143 lb) (06/21 0919) BP: (80-142)/(52-97) ABP: (84-138)/(50-84) Temp: [35.7 C [...] 7.6* PO4 4.2 Intake/Output: Date 09/04/20700 - 09/05/20 0709/05/20700 - 09/06/20 07 Shift 9777-7261 7660-6065 24 Hour Total 0058-9324 6340-2940 24 Hour Total INTAKE I.V.(mL/kg/hr) 2300(3) 2300 [...] 2049 Shift Total(mL/kg) 2820(43.5) 515(7.9) 3335(51.4) NET 80 495 -415 Weight (kg) 64.9 64.9 64.9 64.9 64.9 [...] call with any questions. Roseanna Wolff Pager [phone] * Mckinley Yost MD - 09/04/2020 8:45 [...] Yost M.D. Urology PGY-3 Please page urology retail loss prevention officer with questions or concerns * Lori Morley [...] CWON Wound/Ostomy Nursing Consult Service Available via Voalte text or [employer] Contact Team "Liquor Bridge Operator" after 4:00pm M-F/weekends/holidays documented in this encounter [...] Ref Range Units Ordered 4 Crossmatch Expires 09/07/2020,2359 Record Check 2ND TYPE REQUIRED ABO/RH(D) PENDING Antibody Screen PENDING Point of Care Testing: (Last 24 hours): Nutrition: Dietitian Documentation Wound: Wound Documentation I have examined the patient, and there are no significant changes in their condi tion, from the previous H&P performed on 08/18/20. Sixto Nolan MD Pager [phone] * Lorena Rodriguez MD - 09/04/2020 8:40 [...] hernia repair Mohit Dacosta MD Urology PGY5 [phone] Attestation I saw and evaluated pt with the resident on rounds and performed the jurado portion s of the e/m. I agree with the above assessment and plan. Lorena Rodriguez MD, FACS __ HPI: In 2011 Ms. Torres experienced diverticulitis and months later developed rec tovaginal fistula. 12/2011 - open sigmoidectomy, small bowel resection, repair of vaginal cuff in [facility] by Dr. Leal. Surgery c/b R ureteral [...] courses of antibiotics 06/28/20 - went to [place], transferred to MICU for UTI, C. Diff, upper tracts with mild hydro and debris. Urine and NT cultures grew Brenda parapsilosis Currently - has been on TPN, ceftriaxone, PO flagyl, and PO vancomycin managed b y ID and has been in a SNF in [place] Medical History: Diagnosis Date Colovesical fistula Diverticulitis [...] c/c/e. Neuro: CNII-XII intact, normal strength at [employer], elbows and knees, ankles, vladimir l sensation [...] 3CG/daphney gillette. In the physical presence of KOBI Martinez, I have taken down these notes , Bridgett Wolff. 09/12/2020 Associated attestation - Fernanda Roman RN - 09/12/2020 4:58 PM CDT I have reviewed the documentation of Bridgett Wolff for the PICC line insertion procedure and verify that it is accurate. documented in this encounter Consult Notes * Kanwal Pruitt APRN-CNS - 09/18/2020 10:00 AM CDT Associated Order(s): CONSULT PICTURE BOOKERROSALINA See my consult note. I appreciate being invited to participate in this patient's care. Call or page i f there are any concerns or questions. Kanwal Pruitt [facility] Office [phone] * Kanwal Pruitt APRN-CNS - 09/18/2020 7:02 AM CDT Associated Order(s): CONSULT PICTURE BOOKERROSALINA Inpatient Psychiatric Clinical Nurse Specialist- Initial Consult Pt. Name: Carlo sAlberto Torres Room: [place] [id number] LOS: 14 Reason for consult: Pt overwhelmed with multiple hospitalizations, spouse also hospitalized at this time and on vent d/t covid. Interventions that would be helpful: Her childhood friend is flying here from [place] to visit her in the hospital. Patient [...] part of her family. She has childr en and 19 grandchildren. She had been for 4 yrs when she met him online. She said he was very good to her and to her family. He contracted co-vid after Father's Day - their son-in-law was positive and they had attended a [employer] that Friday. She has many good friends through her quaker family. She reports poor appetite. On clear [...] are any concerns or questions. Kanwal Pruitt [facility] Office [phone] * Marti Vásquez APRN-LOCOMOTIVE ELECTRICIAN - 09/13/2020 4:21 PM CDT Associated Order(s): [...] has been reviewed and added onto the [place] IR schedule for 09/13/2020. - For sedation purposes, please keep NPO prior to procedure. May take PO medicat ions with sips of water. We appreciate being able to participate in this patient's care. Please page with any questions or concerns. Marti Vásquez APRN-LOCOMOTIVE ELECTRICIAN Pgr [phone] IR Team Pager [phone] (After-hours and Weekends) Procedure: Abdominal drain placement [...] Gastrointestinal: positive for abdominal pain Medications Scheduled Meds:[MAY Hold] acetaminophen (TYLENOL) tablet 650 mg, 650 mg, Oral, Q 6H* [MAY Hold] buPROPion XL (WELLBUTRIN XL) tablet 150 mg, 150 mg, Oral, QDAY cefepime (MAXIPIME) 2 g in sodium chloride 0.9% (NS) 100 mL IVPB (MB+), 2 g, Int ravenous, Q12H* [MAY Hold] cetirizine (ZyrTEC) tablet 10 mg, 10 mg, Oral, QDAY [MAY Hold] COVID-19 vacc,mRNA (MODERNA) PF immunization 100 mcg, 100 mcg, Intram uscular, Liquor Bridge Operator [MAY Hold] enoxaparin (LOVENOX) syringe 40 mg, 40 mg, Subcutaneous, QDAY(21) fluconazole (DIFLUCAN) tablet 200 mg, 200 mg, Oral, QDAY gabapentin (NEURONTIN) capsule 300 mg, 300 mg, Oral, BID [MAY Hold] levothyroxine (SYNTHROID) tablet 50 mcg, 50 mcg, Oral, QDAY [MAY Hold] methocarbamoL (ROBAXIN) tablet 750 mg, 750 mg, Oral, TID metroNIDAZOLE (FLAGYL) 500 mg IVPB 100 mL, 500 mg, Intravenous, Q8H* midazolam (VERSED) injection 1 mg, 1 mg, Intravenous, ONCE [MAY Hold] nicotine (NICODERM CQ STEP 2) 14 mg/day patch 1 patch, 1 patch, Trans dermal, Q24H* [MAY Hold] oxybutynin XL (DITROPAN XL) tablet 15 [...] packet 17 g, 1 packet, Oral, BID [MAY Hold] senna/docusate (SENOKOT-S) tablet 1 tablet, 1 [...] PRN, [MAY Hold] oxyCODONE Q4H PRN, [ R Hold] phenoL PRN, [MAY Hold] prochlorperazine Q6H PRN, [MAY Hold] simethicone Q6H PRN, vancomycin, pharmacy to manage [...] line-associated bloodstream infection) Acute pulmonary edema ([facility]) Wound and ostomy team continuing to follow [...] stoma powder and wipe away the excess 4.Bastrop no sting skin prep on powdered skin [...] built into boot. General photo: Wounds 09/12/20 09 Pressure Injury Coccyx (Active) 09/12/20 09 Coccyx Wound Type: Pressure Injury Pressure Injury Stages: Unstageable Pressure Injury Present On Inpatient Admission: N Wound/Pressure Injury Orientation: Wound Description (Comments): Wound Type:: Wound Image 09/13/20 1100 Agree With My Assessment? 09/12/20 1630 Wound Dressing Status Removed for assessment 09/13/20 1100 Wound Dressing and / or Treatment A & D Ointment- NICOLE 09/13/20 1100 Wound Drainage Amount None 09/13/20 [...] 0908 Pressure Injury Left Buttocks (Active) 09/12/20 09 Buttocks Wound Type: Pressure Injury Pressure Injury Stages: Deep Tissue Pressure Injury Pressure Injury Present On Inpatient Admission: N Wound/Pressure Injury Orientation: Left Wound Description (Comments): Wound Type:: Wound Image 09/13/20 1100 Agree With My Assessment? 09/12/20 1630 Wound Dressing Status Removed for assessment 09/13/20 1100 Wound Dressing and / or Treatment None- leave MANUFACTURING PRODUCTION MANAGER 09/12/202040 Wound Drainage Amount None 09/13/20 1100 Wound [...] With My Assessment? 09/13/20 0426 Stoma Assessment Dusky;Edema;Corona;Pale;Dark Edges 09/13/20 1100 Drainage Description Brown 09/13/20 1100 Peristomal Skin Assessment Unable to Assess 09/13/20 1100 Dressing Status Intact;Dry;Clean 09/13/201099 Drain Output (ml) 0 ml 09/13/20 0839 JACINTO Wilson, RN, TCRN Wound/Ostomy Nursing Consult Service Available via Spyra or [employer] [phone] After hours please contact wound/business and financial counsel "call center trainer" via [employer] * Makenna Irving RD - 09/13/2020 9:16 [...] PF immunization 100 mcg, 100 mcg, Intramuscular, Liquor Bridge Operator enoxaparin (LOVENOX) syringe 40 mg, 40 mg, [...] 1800ml over 24hrs per latest rx from [facility]. NSS customized new PN for 09/05/20 based on post- op needs, weight status, labs etc. Given recent PN provisions & current appropriate lytes, PN was restarted at goal macronutrients. RD reviewed PN plan & reviewed diet strategies/tips for once diet advances & in setting of new colostomy; provided additional copy of ostomy diet handout (noted commercial analyst already provided their education) during 09/05/20 visit. [...] 1800ml (75ml/hr) Macronutrients: 90g15%AA (goal), 150g dextrose (atuc=757m), 245ml intralipid (go al) Lytes/Additives: 183mEq Na (2/3NS equivalent), 60mEq K+, 10mEq calcium, 16mEq ma gnesium, 25mmol Phos, 2:1 cl:acetate, 10ml MV, 1ml trace element, 100mg suppleme ntal thiamine, 300mg supplemental ascorbic acid, 5mg supplemental zinc PN will provide 1360kcal (23kcal/kg desired wt; 84% goal), 90g protein (1.6g/kg desired wt). Makenna Irving RD, LD, CNSC Available on [employer] | Office: [phone] * Makenna Irving RD - 09/05/2020 11:38 [...] (PN) Adult Continuous Parenteral Nutrition (PN) Stopped (09/04/206) HYDROmorphone PF (DILAUDID) 10 mcg/mL, bupivacaine PF [...] due to establishe d daily PN support MEDICAL EDITOR Assessment / PN Indication: 70 yo F with hx including diverticulitis and complex GI and urologic surgical hx, w recurrent colovesical and rectovaginal fistulas now s/p takedown of rectovesical fistula, end transverse colostomy, R internal i liac vein injury and ligation, primary bladder repair, left sided ureter stent p lacement (09/04/20). Patient was started on PN support during spring admit here a t [facility] & discharged to facility on 07/10 PN [...] 07/10 still & until transfer to ; awaiting reply from [facility] with latest Rx. NSS will customize new [...] copy of ostomy diet handout (n oted commercial analyst already provided their education). Patient voiced understanding/a [...] team to decrease/adjust IVFs once PN starts tonight Makenna Irving RD, LD, CNSC Available on [employer] | Office: [phone] * Leela Mullen MD - 09/05/2020 9:05 [...] staffed with Dr. Marty Mullen MD Pager [phone] Please contact preferentially via [employer] History of Present Illness Carlos Alberto Torres is a 70 y.o. 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 12/26 underwent open sigmoidectomy, small bowel resection, repair of vaginal cuff in [place] at [facility] by Dr. Leal. Surgery c/b [...] with chronic fecaluria, dysuria. Dr. Leal recommended [facility] evaluation as felt to have exhausted surgical expertis e of [place] at that time, she did not seek [place] evaluation. 2019 worsening ramiro dder and lower abdominal spasms, and 12/2019 admitted [facility] in [place] with urosepsis requiring IV abx, transitioned to PO abx through February 2020 and was referred to colorectal surgery. Recurrent UTIs thereafter requiring short co urses PO abx, yet anytime off recurrent UTI. 05/22/[address] Martell, ruperto t which time discussed need of repeat c-scope and complex joint colon-urologic s urgical repair, removal mesh. 06/[address] Rodriguez, at which time on amox/clav, completed shortly thereafter. Plan was for mid-June colonoscopy, however early June worsening back, lower abdominal pain. 06/20 returned to local [place] urgent care with dysuria, suprapubic pain, dysuria, fevers, myalgias, dc'd on ciproflo xacin, cx returned cipro-R E.coli switched to azithromycin (?). Symptoms worsene d with acute on chronic watery diarrhea intermittently bloody, with abdominal pa in and bloody discharge from chronic (since 2015) midline wound. 06/28 presented to [facility], at which time afebrile but tachypnic, tachycardic [...] and PT and was discharged to a nursing home facil ity to optimize nutrition and endurance prior [...] Marital status/area of residence: Lives alone in [place], [place] but has been at a skilled [...] Infusions: Adult Continuous Parenteral Nutrition (PN) Stopped (09/04/202215) HYDROmorphone PF (DILAUDID) 10 mcg/mL, bupivacaine PF [...] follow. Juany Ferguson MD Infectious Diseases Pager [phone] Please use Voalte to contact ID. documented in this encounter Miscellaneous Notes * Case Mgmt DC Plan - Luly López - 09/21/2020 3:45 PM CDT Case Management Progress Note NAME:Carlos Alberto Torres :1950 AGE: 70 y.o. ADMISSION DATE: 09/04/2020 DAYS ADMITTED: LOS: 17 days Todays Date: 09/21/2020 Plan Pt discharged to [facility] SNF today transported by sister. Interventions Support Info or Referral Discharge Planning Discharge Planning: Longterm Facility, Home Health JILLIAN communicated with Lisa at [facility] about ability to accept pt today . JILLIAN informed Lisa that JILLIAN received VM from [employer] with auth number. Lisa repor otoniel she still needed to confirm if [employer] would provide a carve out before facili ty admits pt. With assistance from leadership, JILLIAN received confirmation from [employer] that car ve out not necessary and pt can d/c to SNF. JILLIAN spoke with Lisa at [facility] again who confirmed facility can go ahead and accept pt today. JILLIAN received call from Sheldon with [facility] requesting pt info so [facility] can get TP N ready to deliver [...] Admission date: 09/04/2020 - Dis charge disposition: Longterm Facility [facility] Destination Coordination complete Service Provider Selected Services Address Phone Fax Patient Preferred [facility] Longterm [address], [place] [address] [phone] Luly López LMSW Pager: [phone] * Case Mgmt DC Plan - Luly López - 09/20/2020 4:14 PM CDT Case Management Progress Note NAME:Carlos Alberto Torres :1950 AGE: 70 y.o. ADMISSION DATE: 09/04/2020 DAYS ADMITTED: LOS: 16 days Todays Date: 09/20/2020 Plan Pt anticipated to d/c to [facility] SNF pending insurance aut h. Interventions Support Info or Referral Discharge Planning Discharge Planning: Longterm Facility, Home Health JILLIAN called [facility] and provided update to Lisa that pt stable for d/c and neph tubes will be removed prior to d/c. Lisa will f/u with regarding in surance auth. JILLIAN received f/u call from [place] informing SW that [employer] reported they have 24 -48 hours to provide auth and facility does not anticipate they will have an ans wer today. Facility is pursuing carve out with [employer] due to pt's expensive care. JILLIAN LM for [facility] with [employer] at requesting return call re garding auth status. JILLIAN then sent email to [employer] representatives requesting same info. JILLIAN visited pt at bedside and provided update. 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 Pt's sister at bedside and asked if she is abl e to drive pt to SNF if pt discharges tomorrow. At that time, attending came in the room and confirmed that from a medical standpoint, team is fine with that pl an. JILLIAN agreed to confirm with SNF that they are agreeable to this plan. Disposition Expected Discharge Date 09/21/2020 8:00 PM Transportation Does the patient need discharge transport arranged?: Yes Does the patient use Medicaid Transportation?: No Discharge Disposition Selected Continued Care - Admitted Since 09/04/2020 [facility] Destination Coordination complete Service Provider Selected Services Address Phone Fax Patient Preferred [facility] Longterm [address] [place] [address] [phone] Luly López LMSW Pager: [phone] * Care Plan - Sharlene Nix RN [...] 2g protein (No breakfast of lunch ordered) 7: Consumed cereal, yogurt, milk for breakfast/lunch. Consumed [...] Available on Voalte (Preferred Communication Method) Pager: [phone]* * Care Plan - Héctor Morris RN - 09/20/2020 1:04 AM CDT Problem: Infection, Risk of, Central Venous Catheter-Associated Bloodstream Infe ction Goal: Absence of CVC Associated Bloodstream infection Outcome: Goal Ongoing Flowsheets (Taken 09/18/20200) Absence of CVC associated bloodstream infection: Assess [...] of Care: Involve patient/caregiver in care planning decbrittanyi on making Goal: Knowledge regarding plan of care Outcome: Goal Ongoing Flowsheets (Taken 09/18/20200) Knowledge regarding plan of care: Provide infection prevention education Provide procedural and treatment education Provide fall prevention education Provide plan of care education Provide medication management education Provide VTE signs and symptoms education Goal: Prepared for discharge Outcome: Goal Ongoing Flowsheets (Taken 09/18/2020 2310) Prepared for discharge: Complete ADL ability assessment [...] of infection Outcome: Goal Ongoing Flowsheets (Taken 09/18/2020 2310) Absence of infection: Assess for infection (Monitor SIRS Criteria) Monitor for signs and symptoms of infection Administer pharmacological therapies as ordered Implement prevention measures as indicated Goal: Knowledge of Infection Control Procedures Outcome: Goal Ongoing Flowsheets (Taken 09/18/2020 2310) Knowledge of Infection Control procedures: Provide Isolation Precautions Educati on * Case Mgmt DC Plan - Luly López - 09/19/2020 2:44 PM CDT Case Management Progress Note NAME:Carlos Alberto Torres :1950 AGE: 70 y.o. ADMISSION DATE: 09/04/2020 DAYS ADMITTED: LOS: 15 days Todays Date: 09/19/2020 Plan Pt anticipated to d/c to [facility] SNF pending medical stability and insura nce auth. Interventions Support Info or Referral Discharge Planning Discharge Planning: Longterm Facility, Home Health JILLIAN received update in Urology Huddle that pt will d/c on IV abx, including Da pto. JILLIAN informed primary team that SNF likely won't be able to accept pt on Dapt o due to cost of the medication. Primary team will f/u with ID to see if alterna tive abx plan available. JILLIAN spoke with Lisa at [facility] who confirmed it would be much easier f or facility to accept pt on a less expensive abx. Lisa will f/u with maría bashir about ability to accept on Dapto and JILLIAN will f/u with primary team about edda nge in abx. JILLIAN and Lisa spoke again later in day. JILLIAN updated Lisa that ID agreeable to changing Dapto to Linezolid. Lisa confirmed that facility able to accept pt on that IV abx plan. [facility] will be submitting for insurance auth this afte gisel. Medication Needs Disposition Expected Discharge Date 09/20/2020 2:00 PM Transportation Does the patient need discharge transport arranged?: Yes Does the patient use Medicaid Transportation?: No Next Level of Care (Acute Psych discharges only) Discharge Disposition Selected Continued Care - Admitted Since 09/04/2020 [facility] Destination Coordination complete Service Provider Selected Services Address Phone Fax Patient Preferred [facility] Longterm [address] [place] [address] [phone] Luly López LMSW Pager: [phone] * Care Plan - Nancy Goodwin RD [...] Goodwin, , RD, LD, CNSC Available on [employer] (Preferred Communication Method) Pager: [phone]* * Care Plan - Héctor Morris RN [...] catheter-associated infection Outcome: Goal Ongoing Flowsheets (Taken 09/18/2020 2310) Absence of urinary catheter-associated infections: Manage urinary catheter Assess for signs and sypmtoms of catheter-associated urinary tract infection Collect urinne specimens appropriately Problem: Discharge Planning Goal: Participation in plan of care Outcome: Goal Ongoing Flowsheets (Taken 09/18/20202309) Participation in Plan of Care: Involve patient/caregiver [...] nutritional intake Outcome: Goal Ongoing Flowsheets (Taken 09/18/2020 2310) Adequate nutritional intake: Assess dietary preferences Promote oral fluid intake Assess nutritional status Administer total parenteral nutrition Knowledge of nutritional diet Consider consult for pig furnace operator Problem: Skin Integrity Goal: Skin integrity intact [...] mobility outcomes Outcome: Goal Ongoing Flowsheets (Taken 09/18/20202309) Maximize functional ADLs and mobility outcomes: Administer [...] Ongoing Flowsheets (Taken 09/06/2020526 by Kelly Gaytan, KOBI) Absence of CVC associated bloodstream infection: Assess [...] Fall Risk Outcome: Goal Ongoing Flowsheets (Taken 09/06/2020 0592 by Kelly Gaytan, RN) High Fall Risk: [...] Ongoing Flowsheets (Taken 09/15/2020 1116 by Makenna Irving, RD) Adequate nutritional intake: Promote oral fluid [...] 09/15/2020 Plan Anticipate pt will d/c to [facility] pending medical stability and insur dagoberto gamez. Interventions Support Info or Referral Discharge Planning Discharge Planning: Longterm Facility, Home Health JILLIAN called [facility] and provided update that pt may be stable to d/c Fri or Fri next week. Lisa with [facility] informed that facility can re-submit f or [...] Selected Services Address Phone Fax Patient Preferred [facility] Longterm [address] [place] [address] [phone] Luly López LMSW Pager: [phone] * Care Plan - Makenna Irving RD [...] being resumed 09/13 (was on 4 day hol). For tonight's bag, will increase dextrose by [...] changes are desired. NSS is available on Voalte or by pager [phone] for [address] M[address]na Irving RD, LD, CNSC Available on Voalte | Office: [phone] * Procedures (Immed Post or Bedside) - [...] 09/13/2020 Plan Pt anticipated to d/c to [facility] SNF when medically stable . Interventions Support Info or Referral Discharge Planning Discharge Planning: Longterm Facility, Home Health JILLIAN returned missed call from [facility] with [facility] at [phone]. JILLIAN pro vided update that pt will not be stable for d/c until next week. JILILAN will continu e to fax clinical updates to facility and [facility] is agreeable to pursuing new [facility] corine auth next week. Financial Legal Other Disposition Expected Discharge Date 09/19/2020 2:00 PM Transportation Does the patient need discharge transport arranged?: Yes Does the patient use Medicaid Transportation?: No Discharge Disposition Selected Continued Care - Admitted Since 09/04/2020 [facility] Destination Coordination complete Service Provider Selected Services Address Phone Fax Patient Preferred [facility] Longterm [address], [place] [phone] Luly López LMSW Pager: [phone] * Response Teams - Harriet Diez RN [...] - 09/13/2020 8:23 AM CDT Called by SKEIN INSPECTOR to evaluate patient for hypotension. Briefly, patient with history of diverticulitis and subsequent complex surgical history due to recurrent fist ulization, admitted 09/04 following colovesical fistula takedown, partial cystect tñoa, infected mesh excision and colectomy with colostomy creation. 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 SKEIN INSPECTOR overnight for hypotension, not NICOM responsive, self [...] reportedly normal (do not see resulted), chemist food ry at baseline. Given normal mentation, normal lactic acid/chemistry and improve d MAPs, recommendations to broaden antibiotic coverage (ceftriaxone, metronidazo le, fluconazole as outlined by ID previously) and monitor on telemetry. CXR orde red given increased O2 requirements; educated on IS use. SKEIN INSPECTOR to f/u in 2 hours p er [...] RN comfortable with current plan of care. SKEIN INSPECTOR to follow up per protocol. 2350: At bedside for follow up. Pt. resting comfortably, BP stable. Pt. easily a rousable, able to answer orientation questions. Primary RN notified; denied any concerns at this time. SKEIN INSPECTOR follow up complete at this time. Mariah Swanson RN * Drug Level - Yusuf Reno, PHARMD - 09/12/2020 3:27 PM CDT Pharmacy Vancomycin [...] monitor and adjust therapy as needed. Yusuf Reno, PHARMSurya 09/12/2020 * Care Plan - Makenna Irving [...] LD, CNSC Available on Voalte | Office: [phone] * Care Plan - Chepe Leyva RN [...] 09/11/2020 Plan Pt anticipated to d/c to [facility] when medically stable . Interventions Support Info or Referral Discharge Planning Discharge Planning: Longterm Facility, Home Health JILLIAN received call from Nicole with [facility]. Nicole informed JILLIAN that [employer] h as provided SNF with [...] Selected Services Address Phone Fax Patient Preferred [facility] Longterm [address] [place] [address] [phone] Luly López LMSW Pager: [phone] * Care Plan - Makenna Irving RD [...] of intakes. Will continue to follow. Makenna Irving, LATISHA, LD, CNSC Available on Voalte | Office: [phone] * Case Mgmt DC Plan - Susan Le - 09/11/2020 10:18 AM CDT Case Management Progress Note NAME:Carlos Alberto Torres :1950 AGE: 70 y.o. ADMISSION DATE: 09/04/2020 DAYS ADMITTED: LOS: 7 days Todays Date: 09/11/2020 Plan DC planning ongoing to possible SNF when medically stable. Interventions Support Info or Referral Discharge Planning Discharge Planning: Longterm Facility, Home Health SW attended huddle which shared anticipated dc date to be Friday of this w hughes. SW received call from [facility] of [facility] who reported [employer] was requesting upda otoniel information (therapy, etc.) before they will [...] been selected for the patient. Susan Le [facility] [phone] * Care Plan - Case Cardoso RN [...] nutritional intake: Administer total parenteral nutrition NSS Liquor Bridge Operator-- NSS retail loss prevention officer requested to review PN order/labs and decrease [...] Kohli MA, RD, LD, CNSC NSS call center trainer, Voalte Me or [employer] *[phone] * Drug Level - Arnie Torres, DONOVAN - 09/09/2020 8:29 AM CDT Pharmacy Vancomycin [...] monitor and adjust therapy as needed. Arnie Torres PHARMD 09/09/2020 * Care Plan - Chepe [...] Info or Referral Discharge Planning Discharge Planning: Longterm Facility, Home Health JILLIAN sent updates to [...] selected for the patient. Susan Le LMSW [phone] * Care Plan - Makenna Irving RD [...] changes are desired. NSS is available on Voalte or by pager [phone] for assistance[address] M[address]na Irving RD, LD, CNSC Available on Voalte | Office: [phone] * Care Plan - Chepe Leyva RN [...] ongoing. Pt previously at SNF placement with [facility] and exp resses interest to return to this facility. Interventions Support Info or Referral Discharge Planning Discharge Planning: Longterm Facility, Home Health JILLIAN contacted Nicole at [facility] who indicated the request for authorizati on will be completed closer to her dc date. JILLIAN shared pt's anticipated dc date is potentially next 09/12/20. Nicole requested updated information/notes be sent tomorrow, Friday. Nicole added the facility will need a COVID test [id number] hours prior to dc. Medication Needs Financial [...] LD, CNSC Available on Voalte | Office: [phone] * Operative Report (DICTATED ONLY) - Bran Martell DO - 09/07/2020 7:02 AM CDT THE [address] [address] PATIENT NAME: CARLOS ALBERTO TORRES MR#/PT#: [id number] Page 4 OPERATIVE REPORT DATE OF OPERATION: [...] had been marked, opened and the mus nadeeg split bluntly and the fascia opened. This [...] ESTIMATED BLOOD LOSS: 2 L. Drains: A 19-Chadian fully-fluted Edy drain in the pelvis and a 20-Chadian Fole y catheter per urethra and a [...] as the dense adhesions within the pelvis. DO LELIA Llanes / DONYA /[id number] cc: - Bran Martell DO ATTESTATION I performed this procedure with a resident. and I was present for the entire pro cedure. Staff name: Bran Martell DO Date: 09/19/2020 * Care Plan - Kelly Gaytan RN - 09/06/2020 5:28 AM CDT Problem: Infection, Risk of, Central Venous Catheter-Associated Bloodstream Infe ction Goal: Absence of CVC Associated Bloodstream infection Outcome: Goal Ongoing Flowsheets (Taken 09/06/2020526) Absence of CVC associated bloodstream infection: Assess [...] Plan DC planning ongoing. Anticipate d/c to [facility] pending medical stabil ity and insurance authorization. Interventions Support Info or Referral Discharge Planning Discharge Planning: Longterm Facility, Home Health JILLIAN received update from [facility] that pt would like to d/c to [facility] w here she has been recently. JILLIAN called [facility] admissions at [phone] and spoke to Nicole. Nicole joséld not recall if pt had discharged from their facility to home recently or if she [facility], will review for specifics. Nicole did recall [...] and auth. JILLIAN faxed SNF referral to [facility] at [phone]. Disposition Expected Discharge Date 09/10/2020 2:00 PM Transportation Does the patient need discharge transport arranged?: Yes Does the patient use Medicaid Transportation?: No Next Level of Care (Acute Psych discharges only) Discharge Disposition Selected Continued Care - Admitted Since 09/04/2020 No services have been selected for the patient. Luly López LMSW Pager: [phone] * Case Mgmt DC Plan - Gini Jeffrey RN - 09/05/2020 2:44 PM CDT Case Management Progress Note NAME:Carlos Alberto Torres :1950 AGE: 70 y.o. ADMISSION DATE: 09/04/2020 DAYS ADMITTED: LOS: 1 day Todays Date: 09/05/2020 Plan Anticipate pt to DC when medically ready to [facility] acute care [facility]. Interventions Support Info or Referral Discharge Planning Discharge Planning: Longterm Facility, Home Health NCM advised SWCMs of pts desire to DC to [facility] discussing that pt reports a problem with [...] Needs, Discharge Planning for Post-Acute Fac ility -VICKIEM met pt and her sister Katelin/Katelin's spouse at bedside. Pt consents to asses sment with her family present. -NCM introduced self, explained role of CM, confirmed pt demographics and provid ed contact information. -Pt lives in a single level home with no steps with her fidagoberto who is currently in [facility] on a vent with Covid. -Pt repts she admitted from [facility] acute [facility] and plans to return. -Discussed plan of discharge with pt. -CM will continue to follow for possible pt needs. Patient Address/Phone [address] [place] [address] [address] (home) Emergency Contact Extended Emergency [...] to Admission Living Arrangements Type of Residence: retirement facility Living Arrangements: Spouse/significant other(Maria De Jesus is currently in [facility] on a ventilator battling COVID.) Bathroom Shower / Tub: Tub/Shower Unit How many levels in the residence?: 1 Can patient live on one level if needed?: Yes Does residence have entry and/or side stairs?: No Assistance needed prior to admit or anticipated on discharge: Yes Who provides assistance or could if needed?: [facility] post acute care facility. 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 Financial Resources Coverage Primary Insurance: Medicare Replacement Secondary Insurance: No insurance Additional Coverage: RX(Pt fills scripts at [facility] on [address], [address] and reports low copays.) Source of Income Source Of Income: Employed Financial Assistance Needed? [facility]. Psychosocial Needs Mental Health Mental Health History: In the past Substance Use History Substance Use History Screen: In the past Comment: Pt quit smoking 4 mos ago. Other na Current/Previous Services PCP Geraldo Mcknight, , Pharmacy [facility] [address] - [address] [address] [facility] [address] [place] [address] Durable Medical Equipment Durable Medical Equipment at home: Rollator(Walker belonged to her mother.) Home Health Receiving home health: In the past Agency name: [facility] Would patient use this agency again?: Yes [...] No Outpatient Therapy PT: No OT: No NET TRAINER: No Longterm Facility/Jail SNF: Yes When did patient receive care?: until admission Name of Facility: [facility] Would patient return for future services?: Yes NH: No Inpatient Rehab IPR: No Long-Term Acute Care Hospital LTACH: No Acute Hospital Stay Acute Hospital Stay: In the past Was patient's stay within the last 30 days?: No Gini Jeffrey RN BSN, [facility] Nurse [employer] War[employer] Boat Operator Pager: [phone] * Care Plan - Héctor Morris RN - 09/05/2020 12:53 AM CDT Problem: Infection, Risk of, Central Venous Catheter-Associated Bloodstream Infe ction Goal: Absence of CVC Associated Bloodstream infection Outcome: Goal Ongoing Flowsheets (Taken 09/05/202051) Absence of CVC associated bloodstream infection: Manage central venous catheter Assess for central line catheter infection (Monitor SIRS criteria) Follow central line bundle components Problem: Infection, Risk of, Urinary Catheter-Associated Urinary Tract Infection Goal: Absence of urinary catheter-associated infection Outcome: Goal Ongoing Flowsheets (Taken 09/05/202051) Absence of urinary catheter-associated infections: Manage urinary [...] MD - 09/04/2020 8:41 PM CDT THE [address] [address] PATIENT NAME: CARLOS ALBERTO TORRES MR#/PT#: [id number] Page 2 OPERATIVE REPORT DATE OF OPERATION: 09/04/2020 SURGEON: Lorena Rodriguez MD CO-SURGEON(S): Bran Martell DO FIXED INCOME TRADING VICE PRESIDENT(S): Mohit Dacosta MD PREOPERATIVE DIAGNOSIS: 1. Recurrent [...] 2 L. Drains and tubes: 1. A 19-Chadian fluted Edy drain through a stab incision in the left lower quad rant. 2. A 20-Chadian Salomon catheter per urethra. 3. Left 6 x 26 double-J ureteral stent. Complications: None. SPECIMENS REMOVED: 1. Descending colon and rectum to Pathology. 2. Mesh for gross disposal only. Attestation I was present, scrubbed, and participated in the entire procedure with a residen t, and without overlapping cases Lorena Rodriguez MD, FACS Lorena Rodriguez MD / MEDQ /[id number] cc: - Lorena Rodriguez MD - Bran Jasbir, DO * Procedures (Immed Post or Bedside) - Mohit Dacosta MD - 09/04/2020 3:22 PM CDT Brief Operative Note Name: Carlos Alberto Torres is a 70 y.o. female : 1950 MR N#: [id number] DATE OF OPERATION: 09/04/2020 Date: 09/04/2020 Preoperative [...] PACU - stable Mohit Dacosta MD Pager [phone] Associated attestation - Lorena Rodriguez MD - [...] 70 y.o. female : 1950 MR N#: [id number] DATE OF OPERATION: 09/04/2020 Date: 09/04/2020 Preoperative [...] Luis E Muse MD - Resident - [employer] Piping Designer Sami Bermudez MD - Resident - [employer]ing Designer Findings: Dense adhesive disease throughout the pelvis. [...] TRANSVERSE COLON Tissue Colon SURGICAL PATHOLOGY Lorena oRdriguez M D 09/04/2020 1433 A : Mesh [...] PARTIAL Special Needs 6/9 PER IM FROM [facility] CASE LENGTH 6 HRS - CC 1001 COLECTOMY WITH 09/04/2020 Colovesical fistula COLOPROCTOSTOMY AND 10:34 AM CDT COLOSTOMY - PARTIAL Special Needs 6/9 PER IM FROM [facility] CASE LENGTH 6 HRS - CC 1001 EXPLORATORY LAPAROTOMY 09/04/2020 Colovesical fi stula WITH/ WITHOUT BIOPSY 10:34 AM CDT Special Needs 6/9 PER IM FROM [facility] CASE LENGTH 6 HRS - CC 1001 [...] POC 117 (H) 70 - 100 MG/DL MAIN LAB Specimen Performing Organization Address City/[facility] Code P sid Number MAIN LAB [address] [place] [address] * POC GLUCOSE (09/21/2020 8:13 AM CDT) Glucose, POC 117 (H) 70 - 100 MG/DL MAIN LAB Specimen Performing Organization Address City/State/[facility] P sid Number MAIN LAB [address] [place] [address] * BASIC METABOLIC PANEL (09/21/2020 4:34 AM CDT) Sodium 138 137 - 147 MMOL/L MAIN LAB Potassium 4.2 3.5 - 5.1 MMOL/L KU MAIN LAB Chloride 104 98 - 110 MMOL/L [facility] MAIN LAB CO2 23 21 - 30 MMOL/L [facility] MAIN LAB Anion Gap 11 3 - 12 KU MAIN LAB Glucose 95 70 - 100 MG/DL MAIN LAB Blood Urea 23 7 - 25 MG/DL K[facility] MAIN LAB Nitrogen Creatinine 0.73 0.4 - 1.00 MG/DL K[facility] MAIN LAB Calcium 8.6 8.5 - 10.6 MG/DL MAIN LAB eGFR Non >60 >60 mL/min MAIN LAB Comment: Nauruan The eGFR is not validated f or use in drug dosing adjustments. Continue to use estimated creatinine clearance per dosing reference text. Please contact the Clinical Pharmacist for questions. eGFR >60 >60 mL/min KU MAIN LAB Nauruan Comment: The eGFR is not validated for use in drug dosing adjustments. Continue to use estimated creatinine clearance per dosing reference text. Please contact the Clinical Pharmacist for questions. Specimen Blood Performing Organization Address City/[facility]/ZIP Code P sid Number MAIN LAB [address] [place] [address] * PHOSPHORUS (09/21/2020 4:34 AM CDT) Phosphorus 3.8 2.0 - 4.5 MG/DL KU MAIN LAB Specimen Blood Performing Organization Address City/[facility] P sid Number MAIN LAB [address] [place] [id number] * MAGNESIUM (09/21/2020 4:34 AM CDT) Magnesium 2.3 1.6 - 2.6 mg/dL KU MAIN LAB Specimen Blood Performing Organization Address City/[facility]/ZIP Code P sid Number MAIN LAB [address] [place] [address] * POC GLUCOSE (09/21/2020 4:31 AM CDT) Glucose, POC 91 70 - 100 MG/DL MAIN LAB Specimen Performing Organization Address City/[facility]/ZIP Code P sid Number MAIN LAB [address] [place] [id number] * POC GLUCOSE (09/20/2020 8:26 PM CDT) Glucose, POC 127 (H) 70 - 100 MG/DL KU MAIN LAB Specimen Performing Organization Address City/[facility] Code P sid Number KU MAIN LAB [address] [place] [address] * POC GLUCOSE (09/20/2020 4:52 PM CDT) Glucose, POC 115 (H) 70 - 100 MG/DL K[facility] MAIN LAB Specimen Performing Organization Address [facility] Code P sid Number KU MAIN LAB [address] [place] [address] * POC GLUCOSE (09/20/2020 11:24 AM CDT) Glucose, POC 138 (H) 70 - 100 MG/DL KU MAIN LAB Specimen Performing Organization Address [facility] P sid Number KU MAIN LAB [address] [place] [address] * POC GLUCOSE (09/20/2020 7:35 AM CDT) Glucose, POC 117 (H) 70 - 100 MG/DL K[facility] MAIN LAB Specimen Performing Organization Address [facility] P sid Number MAIN LAB [address] [place] [address] * PHOSPHORUS (09/20/2020 4:40 AM CDT) Phosphorus 4.2 2.0 - 4.5 MG/DL KU MAIN LAB Specimen Blood Performing Organization Address [facility] Code P sid Number MAIN LAB [address] [place] [address] * MAGNESIUM (09/20/2020 4:40 AM CDT) Magnesium 2.2 1.6 - 2.6 mg/dL KU MAIN LAB Specimen Blood Performing Organization Address [facility] P sid Number KU MAIN LAB [address] [place] [address] * COMPREHENSIVE METABOLIC PANEL (09/20/2020 4:40 AM [...] >60 >60 mL/min KU MAIN LAB Comment: Nauruan The eGFR is not validated f or use in drug dosing adjustments. Continue to use estimated creatinine clearance per dosing reference text. Please contact the Clinical Pharmacist for questions. eGFR >60 >60 mL/min KU MAIN LAB Nauruan Comment: The eGFR is not validated for use in drug dosing adjustments. Continue to use estimated creatinine clearance per dosing reference text. Please contact the Clinical Pharmacist for questions. Specimen Blood Performing Organization Address City/[facility]/ZIP Code P sid Number MAIN LAB [address] [place] [id number] * POC GLUCOSE (09/19/2020 10:01 PM CDT) Glucose, POC 106 (H) 70 - 100 MG/DL KU MAIN LAB Specimen Performing Organization Address City/[facility]/ZIP Code P sid Number MAIN LAB [address] [place] [id number] * POC GLUCOSE (09/19/2020 5:41 PM CDT) Glucose, POC 158 (H) 70 - 100 MG/DL KU MAIN LAB Specimen Performing Organization Address City/[facility]/ZIP Code P sid Number KU MAIN LAB [address] [place] [address] * PHOSPHORUS (09/19/2020 12:20 PM CDT) Phosphorus 3.7 2.0 - 4.5 MG/DL KU MAIN LAB Specimen Blood Performing Organization Address City/[facility]/ZIP Code P sid Number MAIN LAB [address] [place] [id number] * MAGNESIUM (09/19/2020 12:20 PM CDT) Magnesium 2.1 1.6 - 2.6 mg/dL KU MAIN LAB Specimen Blood Performing Organization Address City/State/ZIP Code P sid Number KU MAIN LAB [address] [place] [address] * BASIC METABOLIC PANEL (09/19/2020 12:20 PM [...] Calcium 7.9 (L) 8.5 - 10.6 MG/DL KU MAIN LAB eGFR Non >60 >60 mL/min KU MAIN LAB Comment: Nauruan The eGFR is not validated f or use in drug dosing adjustments. Continue to use estimated creatinine clearance per dosing reference text. Please contact the Clinical Pharmacist for questions. eGFR >60 >60 mL/min KU MAIN LAB Nauruan Comment: The eGFR is not validated for use in drug dosing adjustments. Continue to use estimated creatinine clearance per dosing reference text. Please contact the Clinical Pharmacist for questions. Specimen Blood Performing Organization Address City/[facility]/ZIP Code P sid Number KU MAIN LAB [address] [place] [address] * POC GLUCOSE (09/19/2020 11:45 AM CDT) Glucose, POC 118 (H) 70 - 100 MG/DL KU MAIN LAB Specimen Performing Organization Address City/[facility]/ZIP Code P sid Number KU MAIN LAB [address] [place] [id number] * POC GLUCOSE (09/19/2020 8:25 AM CDT) Glucose, POC 150 (H) 70 - 100 MG/DL MAIN LAB Specimen Performing Organization Address City/[facility]/ZIP Code P sid Number KU MAIN LAB [address] [place] [address] * COVID-19 (SARS-COV-2) PCR (09/19/2020 6:50 AM CDT) COVID-19 FLOCKED SWAB [facility] MAIN LAB (SARS-CoV-2) NASOPHARYNGEAL PCR Source COVID-19 NOT DETECTED DN-NOT DETECTED [facility] (SARS-CoV-2) Comment: PCR This [...] performance characteristics have been verified by the [facility] clinical laboratory. Fact sheet for providers: https://www.fda.gov/media/1363 13/download Fact sheet for patients: https://www.fda.gov/media/1363 12/download Specimen Flocked Swab - Nasopharyngeal Performing Organization Address City/[facility] Code P sid Number [facility] [address] [place], [place] [id number] * POC GLUCOSE (09/18/2020 3:45 PM CDT) Glucose, POC 106 (H) 70 - 100 MG/DL MAIN LAB Specimen Performing Organization Address [facility] P sid Number [facility] [address] [place] [address] * POC GLUCOSE (09/18/2020 8:40 AM CDT) Glucose, POC 121 (H) 70 - 100 MG/DL MAIN LAB Specimen Performing Organization Address [facility] P sid Number [facility] [address] [place] [address] * PHOSPHORUS (09/18/2020 4:24 AM CDT) Phosphorus 4.4 2.0 - 4.5 MG/DL [facility] Specimen Blood Performing Organization Address [facility] P sid Number [facility] [address] [place] [id number] * MAGNESIUM (09/18/2020 4:24 AM CDT) Magnesium 2.2 1.6 - 2.6 mg/dL K[facility] MAIN LAB Specimen Blood Performing Organization Address City/State/ZIP Code P sid Number [facility] MAIN LAB [address] [place] [address] * CBC (09/18/2020 4:24 AM CDT) White [...] MAIN LAB Specimen Blood Performing Organization Address City/[facility] Code P sid Number [facility] MAIN LAB [address] [place] [address] * BASIC METABOLIC PANEL (09/18/2020 4:24 AM CDT) Pathologist [facility] Sodium 138 137 - 147 MMOL/L KU [...] >60 >60 mL/min [facility] MAIN LAB Comment: Nauruan The eGFR is not validated f or use in drug dosing adjustments. Continue to use estimated creatinine clearance per dosing reference text. Please contact the Clinical Pharmacist for questions. eGFR >60 >60 mL/min [facility] MAIN LAB [place] Comment: The eGFR is not validated for use in drug dosing adjustments. Continue to use estimated creatinine clearance per dosing reference text. Please contact the Clinical Pharmacist for questions. Specimen Blood Performing Organization Address [facility] Code P sid Number [facility] MAIN LAB [address] [place] [address] * POC GLUCOSE (09/17/2020 6:18 PM CDT) Glucose, POC 119 (H) 70 - 100 MG/DL [facility] MAIN LAB Specimen Performing Organization Address [facility] Code P sid Number [facility] MAIN LAB [address] [place] [address] * POC GLUCOSE (09/17/2020 12:54 PM CDT) Glucose, POC 124 (H) 70 - 100 MG/DL [facility] MAIN LAB Specimen Performing Organization Address [facility] Code P sid Number [facility] MAIN LAB [address] [place] [id number] * PHOSPHORUS (09/17/2020 4:56 AM CDT) Phosphorus 3.4 2.0 - 4.5 MG/DL [facility] MAIN LAB Specimen Blood Performing Organization Address [facility] P sid Number K[facility] MAIN LAB [address] [place] [phone] * MAGNESIUM (09/17/2020 4:56 AM CDT) Magnesium 2.1 1.6 - 2.6 mg/dL [facility] MAIN LAB Specimen Blood Performing Organization Address [facility] P sid Number K[facility] MAIN LAB [address] [place] [address] * CBC (09/17/2020 4:56 AM CDT) White Blood 17.0 (H) 4.5 - 11.0 K/UL [facility] MAIN LAB Cells RBC 2.79 (L) 4.0 - 5.0 M/UL [facility] MAIN LAB Hemoglobin 8.4 (L) 12.0 - 15.0 GM/DL [facility] MAIN LAB Hematocrit 25.4 (L) 36 - 45 % [facility] MAIN LAB MCV 91.3 80 - 100 FL K[facility] MAIN LAB MCH 30.2 26 - 34 PG MAIN LAB MCHC 33.1 32.0 - 36.0 G/DL MAIN LAB RDW 16.0 (H) 11 - 15 % [facility] MAIN LAB Platelet Count 557 (H) 150 - 400 K/UL MAIN LAB MPV 7.8 7 - 11 FL [facility] MAIN LAB Specimen Blood Performing Organization Address City/[facility]/ZIP Code P sid Number [facility] MAIN LAB [address] [place] [address] * BASIC METABOLIC PANEL (09/17/2020 4:56 AM [...] Calcium 8.3 (L) 8.5 - 10.6 MG/DL K[facility] MAIN LAB eGFR Non >60 >60 mL/min [facility] MAIN LAB Comment: Nauruan The eGFR is not validated f or use in drug dosing adjustments. Continue to use estimated creatinine clearance per dosing reference text. Please contact the Clinical Pharmacist for questions. eGFR >60 >60 mL/min K[facility] MAIN LAB [place]uan Comment: The eGFR is not validated for use in drug dosing adjustments. Continue to use estimated creatinine clearance per dosing reference text. Please contact the Clinical Pharmacist for questions. Specimen Blood Performing Organization Address [facility]/ZIP Code P sid Number MAIN LAB [address] [place] [address] * POC GLUCOSE (09/17/2020 4:54 AM CDT) Glucose, POC 113 (H) 70 - 100 MG/DL K[facility] MAIN LAB Specimen Performing Organization Address City/[facility]/ZIP Code P sid Number [facility] MAIN LAB [address] [place] [address] * POC GLUCOSE (09/17/2020 4:45 AM CDT) Glucose, POC 132 (H) 70 - 100 MG/DL [facility] MAIN LAB Specimen Performing Organization Address City/[facility]/ZIP Code P sid Number [facility] MAIN LAB [address] [place] [address] * POC GLUCOSE (09/17/2020 4:42 AM CDT) Glucose, POC 546 (HH) 70 - 100 MG/DL [facility] MAIN LAB Specimen Performing Organization Address City/[facility] Code P sid Number [facility] MAIN LAB [address] [place] [address] * POC GLUCOSE (09/17/2020 4:38 AM CDT) Glucose, POC >600 (HH) 70 - 100 MG/DL [facility] MAIN LAB Specimen Performing Organization Address [facility] P sid Number [facility] MAIN LAB [address] [place] [address] * POC GLUCOSE (09/16/2020 1:34 PM CDT) Glucose, POC 137 (H) 70 - 100 MG/DL [facility] MAIN LAB Specimen Performing Organization Address [facility] P sid Number [facility] MAIN LAB [address] [place] [address] * POC GLUCOSE (09/16/2020 9:48 AM CDT) Glucose, POC 131 (H) 70 - 100 MG/DL [facility] MAIN LAB Specimen Performing Organization Address [facility] P sid Number [facility] MAIN LAB [address] [place] [address] * PHOSPHORUS (09/16/2020 3:57 AM CDT) Phosphorus 2.6 2.0 - 4.5 MG/DL [facility] MAIN LAB Specimen Blood Performing Organization Address [facility] P sid Number [facility] MAIN LAB [address] [place] [address] * MAGNESIUM (09/16/2020 3:57 AM CDT) Magnesium 2.1 1.6 - 2.6 mg/dL [facility] MAIN LAB Specimen Blood Performing Organization Address [facility] Code P sid Number [facility] MAIN LAB [address] [place] [address] * CBC (09/16/2020 3:57 AM CDT) White Blood 17.7 (H) 4.5 - 11.0 K/UL [facility] MAIN LAB Cells RBC 2.59 (L) 4.0 - 5.0 M/UL [facility] MAIN LAB Hemoglobin 7.9 (L) 12.0 - 15.0 GM/DL [facility] MAIN LAB Hematocrit 23.7 (L) 36 - 45 % [facility] MAIN LAB MCV 91.4 80 - 100 FL [facility] MAIN LAB MCH 30.7 26 - 34 PG [facility] MAIN LAB MCHC 33.5 32.0 - 36.0 G/DL MAIN LAB RDW 15.9 (H) 11 - 15 % [facility] MAIN LAB Platelet Count 472 (H) 150 - 400 K/UL [facility] MAIN LAB MPV 8.1 7 - 11 FL [facility] MAIN LAB Specimen Blood Performing Organization Address [facility] Code P sid Number [facility] MAIN LAB [address] [place] [id number] * BASIC METABOLIC PANEL (09/16/2020 3:57 AM CDT) Sodium 137 137 - 147 [...] >60 >60 mL/min [facility] MAIN LAB Comment: Nauruan The eGFR is not validated f or use in drug dosing adjustments. Continue to use estimated creatinine clearance per dosing reference text. Please contact the Clinical Pharmacist for questions. eGFR >60 >60 mL/min [facility] [place] Comment: The eGFR is not validated for use in drug dosing adjustments. Continue to use estimated creatinine clearance per dosing reference text. Please contact the Clinical Pharmacist for questions. Specimen Blood Performing Organization Address [facility] P sid Number [facility] MAIN [facility] [address] [id number] * POC GLUCOSE (09/16/2020 3:51 AM CDT) Glucose, POC 126 (H) 70 - 100 MG/DL [facility] Specimen Performing Organization Address [facility]/ZIP Code P sid Number [facility] MAIN [facility] [address] [id number] * POC GLUCOSE (09/15/2020 9:54 PM CDT) Glucose, POC 91 70 - 100 MG/DL [facility] Specimen Performing Organization Address City/[facility]/ZIP Code P sid Number [facility] MA[facility] [address] [place] [address] * CREATINE KINASE-CPK (09/15/2020 4:00 AM CDT) Creatine Kinase 24 21 - 215 U/L [facility] Specimen Performing Organization Address [facility] Code P sid Number [facility] [address] [id number] * PHOSPHORUS (09/15/2020 4:00 AM CDT) Phosphorus 3.0 2.0 - 4.5 MG/DL [facility] Specimen Blood Performing Organization Address City/[facility] Code P sid Number [facility] [address] [id number] * MAGNESIUM (09/15/2020 4:00 AM CDT) Magnesium 2.2 1.6 - 2.6 mg/dL [facility] Specimen Blood Performing Organization Address [facility] P sid Number [facility] [address] [place] [address] * CBC (09/15/2020 4:00 AM CDT) White [...] MAIN LAB Specimen Blood Performing Organization Address [facility] Code P sid Number [facility] [address] [place] [address] * BASIC METABOLIC PANEL (09/15/2020 4:00 AM CDT) Sodium 139 137 - 147 MMOL/L [facility] Potassium 3.6 3.5 - 5.1 MMOL/L [facility] Chloride 108 98 - 110 MMOL/L [facility] CO2 22 21 - 30 MMOL/L [facility] Anion Gap 9 3 - 12 MAIN LAB Glucose 116 (H) 70 - 100 MG/DL MAIN LAB Blood Urea 15 7 - 25 MG/DL MAIN LAB Nitrogen Creatinine 0.65 0.4 - 1.00 MG/DL MAIN LAB Calcium 7.7 (L) 8.5 - 10.6 MG/DL MAIN LAB eGFR Non >60 >60 mL/min MAIN LAB Comment: [place] The eGFR is not validated f or use in drug dosing adjustments. Continue to use estimated creatinine clearance per dosing reference text. Please contact the Clinical Pharmacist for questions. eGFR >60 >60 mL/min MAIN LAB [place] Comment: The eGFR is not validated for use in drug dosing adjustments. Continue to use estimated creatinine clearance per dosing reference text. Please contact the Clinical Pharmacist for questions. Specimen Blood Performing Organization Address City/[facility]/ZIP Code P sid Number MAIN LAB [address] [place] [address] * POC GLUCOSE (09/15/2020 3:52 AM CDT) Glucose, POC 121 (H) 70 - 100 MG/DL MAIN LAB Specimen Performing Organization Address [facility] P sid Number MAIN LAB [address] [place] [address] * VANCOMYCIN 2HR POST DOSE (09/14/2020 2:25 PM CDT) Vancomycin 2HR 30.7 ug/mL MAIN LAB POST Dose Specimen Blood Performing Organization Address City/[facility]/ZIP Code P sid Number MAIN LAB [address] [place] [address] * POC GLUCOSE (09/14/2020 11:41 AM CDT) Glucose, POC 158 (H) 70 - 100 MG/DL MAIN LAB Specimen Performing Organization Address City/[facility]/ZIP Code P sid Number MAIN LAB [address] [place] [address] * POC GLUCOSE (09/14/2020 8:16 AM CDT) Glucose, POC 124 (H) 70 - 100 MG/DL MAIN LAB Specimen Performing Organization Address City/[facility]/ZIP Code P sid Number [facility] [address] [id number] * VANCOMYCIN TROUGH (09/14/2020 8:10 AM CDT) Vancomycin 14.6 10.0 - 20.0 MCG/ML [facility] MAIN [facility] Trough Specimen Blood, venous - Blood Performing Organization Address [facility] Code P sid Number [facility]IN [facility] [address] [id number] * PHOSPHORUS (09/14/2020 4:17 AM CDT) Phosphorus 3.3 2.0 - 4.5 MG/DL [facility]IN [facility] Specimen Blood Performing Organization Address [facility] Code P sid Number [facility] [address] [id number] * MAGNESIUM (09/14/2020 4:17 AM CDT) Magnesium 2.1 1.6 - 2.6 mg/dL MAIN LAB Specimen Blood Performing Organization Address [facility] P sid Number [facility] [address] [place] [address] * CBC (09/14/2020 4:17 AM CDT) White Blood 19.4 (H) 4.5 - 11.0 K/UL [facility] MAIN [facility] Cells RBC 2.52 (L) 4.0 - 5.0 M/UL [facility]IN [facility] Hemoglobin 7.5 (L) 12.0 - 15.0 GM/DL [facility] MAIN [facility] Hematocrit 23.3 (L) 36 - 45 % [facility] MAIN [facility] MCV 92.3 80 - 100 FL [facility] MAIN [facility] MCH 29.8 26 - 34 PG MAIN LAB MCHC 32.3 32.0 - 36.0 G/DL MAIN LAB RDW 15.3 (H) 11 - 15 % [facility] MAIN [facility] Platelet Count 410 (H) 150 - 400 K/UL MAIN LAB MPV 8.0 7 - 11 FL MAIN LAB Specimen Blood Performing Organization Address [facility] Code P sid Number [facility] [address] [place] [address] * BASIC METABOLIC PANEL (09/14/2020 4:17 AM CDT) Sodium 136 (L) 137 - 147 MMOL/L [facility] Potassium 3.6 3.5 - 5.1 MMOL/L MAIN LAB Chloride 105 98 - 110 MMOL/L MAIN LAB CO2 23 21 - 30 MMOL/L MAIN LAB Anion Gap 8 3 - 12 MAIN LAB Glucose 109 (H) 70 - 100 MG/DL MAIN LAB Blood Urea 15 7 - 25 MG/DL MAIN LAB Nitrogen Creatinine 0.75 0.4 - 1.00 MG/DL MAIN LAB Calcium 7.4 (L) 8.5 - 10.6 MG/DL MAIN LAB eGFR Non >60 >60 mL/min MAIN LAB Comment: [place] The eGFR is not validated f or use in drug dosing adjustments. Continue to use estimated creatinine clearance per dosing reference text. Please contact the Clinical Pharmacist for questions. eGFR >60 >60 mL/min MAIN LAB [place] Comment: The eGFR is not validated for use in drug dosing adjustments. Continue to use estimated creatinine clearance per dosing reference text. Please contact the Clinical Pharmacist for questions. Specimen Blood Performing Organization Address City/[facility]/ZIP Code P sid Number MAIN LAB [address] [place] [address] * POC GLUCOSE (09/14/2020 3:19 AM CDT) Glucose, POC 119 (H) 70 - 100 MG/DL MAIN LAB Specimen Performing Organization Address City/[facility]/ZIP Code P sid Number MAIN LAB [address] [place] [address] * POC GLUCOSE (09/13/2020 9:03 PM CDT) Glucose, POC 93 70 - 100 MG/DL MAIN LAB Specimen Performing Organization Address City/[facility]/ZIP Code P sid Number MAIN LAB [address] [id number] * POC GLUCOSE (09/13/2020 6:06 PM CDT) Glucose, POC 86 70 - 100 MG/DL MAIN LAB Specimen Performing Organization Address City/[facility]/ZIP Code P sid Number MAIN LAB [address] [place] [address] * CT GUIDE ABCESS DRAIN W CATH (09/13/2020 5:29 PM CDT) Specimen Impressions Performed At Successful abdominal abscess drain placement as bola led above. [facility] RAD RESULTS I, Levar Tang, M.D., the attending radio logist, was present [...] fluid. Over an Amplatz wire a 10 [place] drain was succ essfully deployed under CT [...] fluid. Over an Amplatz wire a 10 Chadian drain was successfully deployed under CT guidance. [...] on 09/14/2020 10:55 AM. Performing Organization Address [facility] P sid Number RAD RESULTS * GRAM STAIN (09/13/2020 5:11 PM CDT) Battery Name GRAM STAIN MAIN LAB Report Status FINAL 09/13/2020 [facility] MAIN [facility] Specimen FLUID ABSCESS MAIN LAB Description Special NONE MAIN LAB Requests Gram Stain RARE MAIN LAB NEUTROPHILS Gram Stain MODERATE MAIN LAB GRAM POSITIVE COCCI RESEMBLING STREPTOCOCCI Specimen Fluid Performing Organization Address [facility] P sid Number MAIN LAB [address] [place] [address] * CULTURE-FUNGAL,OTHER (09/13/2020 5:11 PM CDT) Battery Name FUNGUS CULTURE [facility] Report Status FINAL 09/18/2020 [facility] MAIN [facility] Specimen FLUID ABSCESS [facility] MAIN [facility] Description Special NONE MAIN LAB Requests Culture Light growth MAIN LAB BRENDA GLABRATA (A)Comment: Susceptibility intended for research use only. Specimen Fluid - Abdomen Antibiotic Method Susceptibility Organism Micafungin REMI (MCG/ML), INTERPRETATION, YST 0.015: Susceptible Brenda glabrata Fluconazole REMI (MCG/ML), INTERPRETATION, YST 256: Resistant Brenda glabrata Performing Organization Address [facility] P sid Number [facility] [address] [place] [address] * CULTURE-ANAEROBIC (09/13/2020 5:11 PM CDT) Battery Name ANAEROBE CULTURE [facility] Report Status FINAL 09/18/2020 [facility]IN [facility] Specimen FLUID ABSCESS [facility] MAIN [facility] Description Special NONE [facility] MAIN LAB Requests Culture NO ANAEROBES ISOLATED [facility] MAIN [facility] Specimen Fluid - Abdomen Performing Organization Address City/State/ZIP Code P sid Number [facility] [address] [place] [address] * CULTURE-WOUND/TISSUE/FLUID(AEROBIC ONLY)W/SENSITIVITY (09/13/2020 5:11 PM CDT) [...] LAB ENTEROCOCCUS FAECIUM (A) Culture Heavy growth [facility] MAIN LAB PSEUDOMONAS AERUGINOSA (A) Specimen Fluid [...] aeruginosa Performing Organization Address City/State/ZIP Code P sid Number MAIN LAB [address] [place] [address] * POC GLUCOSE (09/13/2020 11:20 AM CDT) Glucose, POC 107 (H) 70 - 100 MG/DL MAIN LAB Specimen Performing Organization Address City/[facility] Code P sid Number MAIN LAB [address] [place] [address] * CHEST SINGLE VIEW (09/13/2020 10:40 AM [...] on 09/13/2020 10:43 AM. Performing Organization Address City/[facility] Code P sid Number RAD RESULTS * POC GLUCOSE (09/13/2020 8:46 AM CDT) Glucose, POC 91 70 - 100 MG/DL MAIN LAB Specimen Performing Organization Address [facility] P sid Number MAIN LAB [address] [place] [address] * BLOOD BANK SAMPLE HOLD (09/13/2020 7:30 AM CDT) BB Sample hold IN LAB MAIN LAB Specimen Performing Organization Address [facility] P sid Number MAIN LAB [address] [place] [address] * LACTIC ACID (BG - RAPID LACTATE) (09/13/2020 7:30 AM CDT) Lactic Acid,BG 1.3 0.5 - 2.0 MMOL/L MAIN LAB Specimen Performing Organization Address [facility] P sid Number MAIN LAB [address] [place] [address] * LACTIC ACID (BG - RAPID LACTATE) (09/13/2020 6:05 AM CDT) Lactic Acid,BG 0.9 0.5 - 2.0 MMOL/L MAIN LAB Specimen Blood Performing Organization Address [facility] P sid Number [facility]IN [facility] [address] [place] [address] * PHOSPHORUS (09/13/2020 2:58 AM CDT) Phosphorus 3.5 2.0 - 4.5 MG/DL [facility]IN [facility] Specimen Blood Performing Organization Address City/[facility] Code P sid Number [facility]IN [facility] [address] [place] [address] * MAGNESIUM (09/13/2020 2:58 AM CDT) Magnesium 2.0 1.6 - 2.6 mg/dL [facility] MAIN [facility] Specimen Blood Performing Organization Address City/[facility] Code P sid Number [facility]IN [facility] [address] [place] [address] * CBC (09/13/2020 2:58 AM CDT) White [...] MAIN LAB Specimen Blood Performing Organization Address [facility]/ZIP Code P sid Number [facility] [address] [place] [address] * BASIC METABOLIC PANEL (09/13/2020 2:58 AM CDT) Sodium 134 (L) 137 - 147 [...] Calcium 8.0 (L) 8.5 - 10.6 MG/DL MAIN LAB eGFR Non >60 >60 mL/min MAIN LAB Comment: [place] The eGFR is not validated f or use in drug dosing adjustments. Continue to use estimated creatinine clearance per dosing reference text. Please contact the Clinical Pharmacist for questions. eGFR >60 >60 mL/min MAIN LAB [place] Comment: The eGFR is not validated for use in drug dosing adjustments. Continue to use estimated creatinine clearance per dosing reference text. Please contact the Clinical Pharmacist for questions. Specimen Blood Performing Organization Address City/State/ZIP Code P sid Number MAIN LAB [address] [id number] * LACTIC ACID(LACTATE) (09/12/2020 11:02 PM CDT) Lactic Acid 0.7 0.5 - 2.0 MMOL/L MAIN LAB Specimen Blood Performing Organization Address City/[facility] Code P sid Number MAIN LAB [address] [place] [address] * BLOOD BANK SAMPLE HOLD (09/12/2020 9:15 PM CDT) BB Sample hold IN LAB MAIN LAB Specimen Arm, Left Performing Organization Address City/[facility] Code P sid Number MAIN LAB [address] [id number] * PHOSPHORUS (09/12/2020 9:15 PM CDT) Phosphorus 3.3 2.0 - 4.5 MG/DL MAIN LAB Specimen Performing Organization Address [facility] Code P sid Number [facility]IN [facility] [address] [place] [address] * MAGNESIUM (09/12/2020 9:15 PM CDT) Magnesium 1.9 1.6 - 2.6 mg/dL MAIN LAB Specimen Performing Organization Address City/[facility] Code P sid Number MAIN LAB [address] [id number] * CBC (09/12/2020 9:15 PM CDT) White Blood 18.2 (H) 4.5 - 11.0 K/UL MAIN LAB Cells RBC 2.75 (L) 4.0 - 5.0 M/UL [facility] MAIN [facility] Hemoglobin 8.4 (L) 12.0 - 15.0 GM/DL [facility] MAIN LAB Hematocrit 25.2 (L) 36 - 45 % [facility] MAIN LAB MCV 91.6 80 - 100 FL [facility] MAIN LAB MCH 30.7 26 - 34 PG [facility] MAIN LAB MCHC 33.5 32.0 - 36.0 G/DL [facility] MAIN LAB RDW 15.6 (H) 11 - 15 % [facility] MAIN LAB Platelet Count 366 150 - 400 K/UL [facility] MAIN LAB MPV 8.5 7 - 11 FL [facility] MAIN LAB Specimen Performing Organization Address City/State/ZIP Code P sid Number [facility]IN [facility] [address] [place] [address] * COMPREHENSIVE METABOLIC PANEL (09/12/2020 9:15 PM [...] >60 >60 mL/min [facility]IN [facility] Comment: [place] The eGFR is not validated f or use in drug dosing adjustments. Continue to use estimated creatinine clearance per dosing reference text. Please contact the Clinical Pharmacist for questions. eGFR >60 >60 mL/min [facility] [place] Comment: The eGFR is not validated for use in drug dosing adjustments. Continue to use estimated creatinine clearance per dosing reference text. Please contact the Clinical Pharmacist for questions. Specimen Performing Organization Address City/State/ZIP Code P sid Number [facility]IN [facility] [address] [place] [address] * CT ABD/PELV W CONTRAST (09/12/2020 7:27 [...] on 09/12/2020 7:38 PM. Performing Organization Address City/[facility]/ZIP Code P sid Number K[facility] RAD RESULTS * VANCOMYCIN TROUGH (09/12/2020 4:40 AM CDT) Vancomycin 16.1 10.0 - 20.0 MCG/ML [facility] MAIN LAB Trough Specimen Performing Organization Address [facility] P sid Number [facility] MAIN [facility] [address] [place] [address] * PHOSPHORUS (09/12/2020 4:40 AM CDT) Phosphorus 3.5 2.0 - 4.5 MG/DL [facility] MAIN LAB Specimen Blood Performing Organization Address [facility] P sid Number [facility] MAIN [facility] [address] [id number] * MAGNESIUM (09/12/2020 4:40 AM CDT) Magnesium 2.1 1.6 - 2.6 mg/dL [facility] MAIN LAB Specimen Blood Performing Organization Address [facility] P sid Number [facility] MAIN LAB [address] [id number] * CBC (09/12/2020 4:40 AM CDT) White [...] MAIN LAB Specimen Blood Performing Organization Address City/[facility]/ZIP Code P sid Number [facility] MAIN [facility] [address] [place] [address] * BASIC METABOLIC PANEL (09/12/2020 4:40 AM [...] >60 >60 mL/min [facility] MAIN LAB Comment: [place] The eGFR is not validated f or use in drug dosing adjustments. Continue to use estimated creatinine clearance per dosing reference text. Please contact the Clinical Pharmacist for questions. eGFR >60 >60 mL/min [facility] MAIN [facility] [place] Comment: The eGFR is not validated for use in drug dosing adjustments. Continue to use estimated creatinine clearance per dosing reference text. Please contact the Clinical Pharmacist for questions. Specimen Blood Performing Organization Address [facility]/ZIP Code P sid Number MAIN LAB [address] [place] [address] * POC GLUCOSE (09/11/2020 8:13 AM CDT) Glucose, POC 98 70 - 100 MG/DL MAIN LAB Specimen Performing Organization Address City/[facility]/ZIP Code P sid Number [facility] MAIN [facility] [address] [place] [address] * PHOSPHORUS (09/11/2020 4:32 AM CDT) Phosphorus 5.7 (H) 2.0 - 4.5 MG/DL [facility] MAIN LAB Specimen Blood Performing Organization Address City/[facility]/ZIP Code P sid Number [facility] MAIN [facility] [address] [place] [address] * MAGNESIUM (09/11/2020 4:32 AM CDT) Magnesium 1.5 (L) 1.6 - 2.6 mg/dL [facility] MAIN LAB Specimen Blood Performing Organization Address City/[facility]/ZIP Code P sid Number [facility] MAIN [facility] [address] [place] [address] * CBC (09/11/2020 4:32 AM CDT) White [...] MAIN LAB Specimen Blood Performing Organization Address [facility] P sid Number [facility] MAIN [facility] [address] [place] [address] * BASIC METABOLIC PANEL (09/11/2020 4:32 AM CDT) Pathologist [facility] Sodium 141 137 - 147 MMOL/L KU [...] >60 >60 mL/min [facility] MAIN LAB Comment: [place] The eGFR is not validated f or use in drug dosing adjustments. Continue to use estimated creatinine clearance per dosing reference text. Please contact the Clinical Pharmacist for questions. eGFR >60 >60 mL/min [facility] MAIN [facility] [place] Comment: The eGFR is not validated for use in drug dosing adjustments. Continue to use estimated creatinine clearance per dosing reference text. Please contact the Clinical Pharmacist for questions. Specimen Blood Performing Organization Address City/[facility]/ZIP Code P sid Number MAIN LAB [address] [place] [address] * POC GLUCOSE (09/10/2020 5:25 PM CDT) Glucose, POC 80 70 - 100 MG/DL [facility] MAIN LAB Specimen Performing Organization Address [facility] Code P sid Number MAIN LAB [address] [place] [address] * POC GLUCOSE (09/10/2020 5:09 PM CDT) Glucose, POC 70 70 - 100 MG/DL [facility] MAIN LAB Specimen Performing Organization Address [facility] P sid Number MAIN LAB [address] [place] [address] * POC GLUCOSE (09/10/2020 12:34 PM CDT) Glucose, POC 78 70 - 100 MG/DL MAIN LAB Specimen Performing Organization Address [facility] P sid Number MAIN LAB [address] [place] [address] * CULTURE-BLOOD W/SENSITIVITY (09/10/2020 11:00 AM CDT) Battery Name BLOOD CULTURE MAIN LAB Report Status FINAL 09/16/2020 MAIN LAB Specimen BLOOD ARM, RIGHT FA MAIN LAB Description Special NONE MAIN LAB Requests Culture NO GROWTH 5 DAYS [facility] MAIN LAB Specimen Blood - Arm, Right Performing Organization Address [facility] P sid Number MAIN LAB [address] [place] [address] * CULTURE-BLOOD W/SENSITIVITY (09/10/2020 10:50 AM CDT) Battery Name BLOOD CULTURE MAIN LAB Report Status FINAL 09/16/2020 MAIN LAB Specimen BLOOD ARM, LEFT ANTECUBITAL MAIN L AB Description Special NONE MAIN LAB Requests Culture NO GROWTH 5 DAYS MAIN LAB Specimen Blood - Arm, Left Performing Organization Address [facility]/ZIP Code P sid Number MAIN LAB [address] [place] [address] * POC GLUCOSE (09/10/2020 9:06 AM CDT) Glucose, POC 69 (L) 70 - 100 MG/DL K[facility] MAIN LAB Specimen Performing Organization Address [facility] Code P sid Number KU MAIN LAB [address] [id number] * PHOSPHORUS (09/10/2020 4:40 AM CDT) Phosphorus 3.5 2.0 - 4.5 MG/DL KU MAIN LAB Specimen Blood Performing Organization Address City/[facility] P sid Number KU MAIN LAB [address] [id number] * MAGNESIUM (09/10/2020 4:40 AM CDT) Magnesium 2.1 1.6 - 2.6 mg/dL MAIN LAB Specimen Blood Performing Organization Address [facility] P sid Number K[facility] MAIN LAB [address] [place] [address] * CBC (09/10/2020 4:40 AM CDT) White [...] MAIN LAB Specimen Blood Performing Organization Address [facility] P sid Number KU MAIN LAB [address] [id number] * BASIC METABOLIC PANEL (09/10/2020 4:40 AM [...] >60 >60 mL/min KU MAIN LAB Comment: [place] The eGFR is not validated f or use in drug dosing adjustments. Continue to use estimated creatinine clearance per dosing reference text. Please contact the Clinical Pharmacist for questions. eGFR >60 >60 mL/min K[facility] MAIN LAB [place] Comment: The eGFR is not validated for use in drug dosing adjustments. Continue to use estimated creatinine clearance per dosing reference text. Please contact the Clinical Pharmacist for questions. Specimen Blood Performing Organization Address City/[facility]/ZIP Code P sid Number MAIN LAB [address] [id number] * POC GLUCOSE (09/09/2020 10:17 PM CDT) Glucose, POC 80 70 - 100 MG/DL KU MAIN LAB Specimen Performing Organization Address City/[facility] P sid Number MAIN LAB [address] [place] [address] * POC GLUCOSE (09/09/2020 10:02 PM CDT) Glucose, POC 69 (L) 70 - 100 MG/DL MAIN LAB Specimen Performing Organization Address City/[facility] Code P sid Number MAIN LAB [address] [place] [address] * PHOSPHORUS (09/09/2020 5:10 AM CDT) Phosphorus 3.4 2.0 - 4.5 MG/DL KU MAIN LAB Specimen Blood Performing Organization Address City/[facility]/ZIP Code P sid Number MAIN LAB [address] [place] [address] * MAGNESIUM (09/09/2020 5:10 AM CDT) Magnesium 2.2 1.6 - 2.6 mg/dL MAIN LAB Specimen Blood Performing Organization Address [facility]/[place] [facility] Number MAIN LAB [address] [place] [address] * CBC (09/09/2020 5:10 AM CDT) White Blood 11.1 (H) 4.5 - 11.0 K/UL MAIN LAB Cells RBC 2.60 (L) 4.0 - 5.0 M/UL KU MAIN LAB Hemoglobin 8.1 (L) 12.0 - 15.0 GM/DL MAIN LAB Hematocrit 23.7 (L) 36 - 45 % KU MAIN LAB MCV 91.2 80 - 100 FL MAIN LAB MCH 31.3 26 - 34 PG MAIN LAB MCHC 34.3 32.0 - 36.0 G/DL MAIN LAB RDW 15.2 (H) 11 - 15 % K[facility] MAIN LAB Platelet Count 228 150 - [address]/UL MAIN LAB MPV 8.5 7 - 11 FL MAIN LAB Specimen Blood Performing Organization Address City/State/ZIP Code P sid Number MAIN LAB [address] [place] [address] * BASIC METABOLIC PANEL (09/09/2020 5:10 AM CDT) [facility] Sodium 144 137 - 147 MMOL/L MAIN LAB Potassium 3.7 3.5 - 5.1 MMOL/L MAIN LAB Chloride 109 98 - 110 MMOL/L MAIN LAB CO2 29 21 - 30 MMOL/L KU MAIN LAB Anion Gap 6 3 - 12 MAIN LAB Glucose 116 (H) 70 - 100 MG/DL MAIN LAB Blood Urea 20 7 - 25 MG/DL MAIN LAB Nitrogen Creatinine 0.66 0.4 - 1.00 MG/DL MAIN LAB Calcium 7.7 (L) 8.5 - 10.6 MG/DL MAIN LAB eGFR Non >60 >60 mL/min MAIN LAB Comment: [place] The eGFR is not validated f or use in drug dosing adjustments. Continue to use estimated creatinine clearance per dosing reference text. Please contact the Clinical Pharmacist for questions. eGFR >60 >60 mL/min [facility] [place]uan Comment: The eGFR is not validated for use in drug dosing adjustments. Continue to use estimated creatinine clearance per dosing reference text. Please contact the Clinical Pharmacist for questions. Specimen Blood Performing Organization Address City/[facility]/[place]IP [facility] [place] Number [facility] [address] [place] [address] * POC BLOOD GAS ARTERIAL (09/08/2020 12:42 PM CDT) [facility] PH-ART-POC 7.46 (H) 7.35 - 7.45 KU MAIN LAB [id number] 36 35 - 45 MMHG KU MAIN LAB PO2-ART-POC 56 (L) 80 - 100 MMHG KU MAIN LAB Base Ex-ART-POC 2.0 MMOL/L KU MAIN LAB O2 Sat-ART-POC 90.0 (L) 95 - 99 % KU MAIN LAB Bicarbonate-ART 26.0 21 - 28 MMOL/L [facility] MAIN LAB -POC Specimen Performing Organization Address City/State/ZIP Code P sid Number KU MAIN LAB [address] [place] [address] * CHEST 2 VIEWS (09/08/2020 11:09 AM [...] on 09/08/2020 11:21 AM. Performing Organization Address City/[facility]/ZIP Code P sid Number RAD RESULTS * CULTURE-BLOOD W/SENSITIVITY (09/08/2020 4:30 AM CDT) Battery Name BLOOD CULTURE MAIN LAB Report Status FINAL 09/14/2020 MAIN LAB Specimen BLOOD ARM, LEFT FA MAIN LAB Description Special NONE MAIN LAB Requests Culture NO GROWTH 5 DAYS MAIN LAB Specimen Blood - Arm, Left Performing Organization Address City/[facility]/ZIP Code P sid Number MAIN LAB [address] [place] [address] * POC GLUCOSE (09/08/2020 4:15 AM CDT) Pathologist [facility] Glucose, POC 107 (H) 70 - 100 MG/DL MAIN LAB Specimen Performing Organization Address City/[facility]/ZIP Code P sid Number MAIN LAB [address] [place] [address] * BLOOD CULTURE MOLECULAR DETECTION (09/08/2020 4:10 AM CDT) Battery Name BLOOD CULTURE MOLECULAR KU MAIN LAB DETECTION Report Status EDITED RESULT - FINAL MAIN LAB 09/09/2020 Specimen BLOOD BLOOD LINE DRAW RIGHT MAIN L AB Description PICC LINE Special NONE MAIN LAB Requests Culture Staphylococcus epidermidis MAIN LA B detected Culture mecA/mecC gene detected [facility] Methicillin resistant Comment: Specimen was [...] vanB. Modified Report Culture Probable contaminant comment [facility] removed Specimen Blood - Blood,Line Draw Performing Organization Address City/State/ZIP Code P sid Number MAIN LAB [address] [place] [address] * LACTIC ACID (BG - RAPID LACTATE) (09/08/2020 4:10 AM CDT) Lactic Acid,BG 1.3 0.5 - 2.0 MMOL/L MAIN LAB Specimen Blood Performing Organization Address City/[facility]/ZIP Code P sid Number MAIN LAB [address] [place] [address] * CULTURE-BLOOD W/SENSITIVITY (09/08/2020 4:10 AM CDT) Battery Name BLOOD CULTURE MAIN LAB Report Status FINAL 09/10/2020 MAIN LAB Specimen BLOOD BLOOD LINE DRAW RIGHT MAIN L AB Description PICC LINE Special NONE MAIN LAB Requests Culture POSITIVE SMEAR: MAIN LAB GRAM POSITIVE COCCI RESEMBLING STAPHYLOCOCCI growth in both bottles (A) Comment: CRITICAL VALUE CALLED TO AND READ BACK BY/TIME/TECH TED/09.09./MS Culture STAPHYLOCOCCUS EPIDERMIDIS (A) [facility] Specimen Blood - Blood,Line Draw Antibiotic [...] 1: Susceptible Staphylococcus epidermidis Performing Organization Address [facility] P sid Number KU MAIN LAB [address] [place] [address] * TRIGLYCERIDE (09/08/2020 3:30 AM CDT) Triglycerides 129 <150 MG/DL K[facility] MAIN LAB Specimen Performing Organization [facility] P sid Number [facility] MAIN LAB [address] [place] [address] * PROCALCITONIN (09/08/2020 3:30 AM CDT) Procalcitonin 0.44 ng/mL [facility] MAIN LAB Comment: Suspected Lower Respiratory Tract Infection: >0.25 ng/mL-Increased likeihood bacterial infection Suspected Sepsis: >0.5 ng/mL-Increased likelihood sepsis >2.0 ng/mL-High risk of sepsis/septic shock Specimen Performing Organization [facility] P sid Number [facility] MAIN LAB [address] [place] [address] * LIVER FUNCTION PANEL (09/08/2020 3:30 AM [...] [facility] MAIN LAB Specimen Performing Organization Address [facility]/ZIP Code P sid Number [facility] MAIN LAB [address] [place] [address] * PHOSPHORUS (09/08/2020 3:30 AM CDT) Phosphorus 2.6 2.0 - 4.5 MG/DL K[facility] MAIN LAB Specimen Blood Performing Organization Address [facility] P sid Number K[facility] MAIN LAB [address] [place] [address] * MAGNESIUM (09/08/2020 3:30 AM CDT) Magnesium 2.0 1.6 - 2.6 mg/dL K[facility] MAIN LAB Specimen Blood Performing Organization Address [facility] Code P sid Number KU MAIN LAB [address] [place] [address] * BASIC METABOLIC PANEL (09/08/2020 3:30 AM CDT) Sodium 143 137 - 147 MMOL/L KU [...] >60 >60 mL/min [facility] MAIN LAB Comment: [place] The eGFR is not validated f or use in drug dosing adjustments. Continue to use estimated creatinine clearance per dosing reference text. Please contact the Clinical Pharmacist for questions. eGFR >60 >60 mL/min [facility] MAIN LAB [place] Comment: The eGFR is not validated for use in drug dosing adjustments. Continue to use estimated creatinine clearance per dosing reference text. Please contact the Clinical Pharmacist for questions. Specimen Blood Performing Organization Address City/[facility]/ZIP Code P sid Number MAIN LAB [address] [place] [id number] * CBC (09/08/2020 3:30 AM CDT) White Blood 11.9 (H) 4.5 [...] MAIN LAB Specimen Blood Performing Organization Address City/[facility]/ZIP Code P sid Number [facility] MAIN LAB [address] [place] [address] * POC GLUCOSE (09/07/2020 10:13 PM CDT) Glucose, POC 86 70 - 100 MG/DL [facility] MAIN LAB Specimen Performing Organization Address [facility] P sid Number [facility] MAIN LAB [address] [place] [address] * POC GLUCOSE (09/07/2020 5:39 PM CDT) Glucose, POC 107 (H) 70 - 100 MG/DL [facility] MAIN LAB Specimen Performing Organization Address [facility] P sid Number [facility] MAIN LAB [address] [place] [address] * ABDOMEN AP ONLY (09/07/2020 10:22 AM [...] on 09/07/2020 11:56 AM. Performing Organization Address [facility] Code P sid Number KU RAD RESULTS * POC GLUCOSE (09/07/2020 8:59 AM CDT) Glucose, POC 162 (H) 70 - 100 MG/DL [facility] MAIN LAB Specimen Performing Organization Address [facility] P sid Number [facility] MAIN LAB [address] [place] [address] * PHOSPHORUS (09/07/2020 3:30 AM CDT) Phosphorus 1.9 (L) 2.0 - 4.5 MG/DL K[facility] MAIN LAB Specimen Blood Performing Organization Address [facility] P sid Number [facility] MAIN LAB [address] [place] [address] * MAGNESIUM (09/07/2020 3:30 AM CDT) Magnesium 2.0 1.6 - 2.6 mg/dL K[facility] MAIN LAB Specimen Blood Performing Organization Address [facility] P sid Number [facility] MAIN LAB [address] [place] [address] * BASIC METABOLIC PANEL (09/07/2020 3:30 AM [...] >60 >60 mL/min [facility] MAIN LAB Comment: [place] The eGFR is not validated f or use in drug dosing adjustments. Continue to use estimated creatinine clearance per dosing reference text. Please contact the Clinical Pharmacist for questions. eGFR >60 >60 mL/min [facility] MAIN LAB [place] Comment: The eGFR is not validated for use in drug dosing adjustments. Continue to use estimated creatinine clearance per dosing reference text. Please contact the Clinical Pharmacist for questions. Specimen Blood Performing Organization Address City/[facility]/ZIP Code P sid Number [facility] MAIN LAB [address] [place] [address] * CBC (09/07/2020 3:30 AM CDT) White [...] MAIN LAB Specimen Blood Performing Organization Address City/[facility] Code P sid Number KU MAIN LAB [address] [place] [id number] * POC GLUCOSE (09/06/2020 9:13 PM CDT) Glucose, POC 125 (H) 70 - 100 MG/DL [facility] MAIN LAB Specimen Performing Organization Address City/[facility]/ZIP Code P sid Number [facility] MAIN LAB [address] [place] [address] * POC GLUCOSE (09/06/2020 6:10 PM CDT) Glucose, POC 125 (H) 70 - 100 MG/DL [facility] MAIN LAB Specimen Performing Organization Address City/[facility]/ZIP Code P sid Number [facility] MAIN LAB [address] [place] [address] * TRANSFUSE RBC'S (09/06/2020 12:21 PM CDT) [...] Platelet Count 228 150 - 400 K/UL MAIN LAB MPV 10.0 7 - 11 FL KU MAIN LAB Specimen Blood Performing Organization Address City/[facility] P sid Number [facility] MAIN LAB [address] [place] [id number] * POC GLUCOSE (09/06/2020 11:10 AM CDT) Glucose, POC 115 (H) 70 - 100 MG/DL MAIN LAB Specimen Performing Organization Address City/[facility] Code P sid Number [facility] MAIN LAB [address] [place] [id number] * TRANSFUSE RBC'S (09/06/2020 8:27 AM CDT) Specimen Blood * PHOSPHORUS (09/06/2020 3:55 AM CDT) Phosphorus 2.5 2.0 - 4.5 MG/DL MAIN LAB Specimen Blood Performing Organization Address City/[facility]/ZIP Code P sid Number [facility] MAIN LAB [address] [place] [address] * MAGNESIUM (09/06/2020 3:55 AM CDT) Magnesium 2.0 1.6 - 2.6 mg/dL MAIN LAB Specimen Blood Performing Organization Address City/[facility]/ZIP Code P sid Number [facility] MAIN LAB [address] [place] [address] * BASIC METABOLIC PANEL (09/06/2020 3:55 AM [...] (L) >60 mL/min [facility] MAIN LAB Comment: [place] The eGFR is not validated f or use in drug dosing adjustments. Continue to use estimated creatinine clearance per dosing reference text. Please contact the Clinical Pharmacist for questions. eGFR 55 (L) >60 mL/min [facility] MAIN LAB [place] Comment: The eGFR is not validated for use in drug dosing adjustments. Continue to use estimated creatinine clearance per dosing reference text. Please contact the Clinical Pharmacist for questions. Specimen Blood Performing Organization Address City/[facility]/ZIP Code P sid Number MAIN LAB [address] [place] [address] * CBC (09/06/2020 3:55 AM CDT) White [...] LAB MCH 30.3 26 - 34 PG MAIN LAB MCHC 32.9 32.0 - 36.0 G/DL MAIN LAB RDW 15.4 (H) 11 - 15 % KU MAIN LAB Platelet Count 239 150 - 400 K/UL MAIN LAB MPV 10.3 7 - 11 FL MAIN LAB Specimen Blood Performing Organization Address City/[facility]/ZIP Code P sid Number MAIN LAB [address] [place] [address] * POC GLUCOSE (09/06/2020 3:49 AM CDT) Glucose, POC 138 (H) 70 - 100 MG/DL K[facility] MAIN LAB Specimen Performing Organization Address City/[facility] Code P sid Number MAIN LAB [address] [place] [address] * POC GLUCOSE (09/05/2020 9:18 PM CDT) Glucose, POC 107 (H) 70 - 100 MG/DL K[facility] MAIN LAB Specimen Performing Organization Address City/[facility] P sid Number MAIN LAB [address] [place] [address] * POC GLUCOSE (09/05/2020 6:01 PM CDT) Glucose, POC 136 (H) 70 - 100 MG/DL MAIN LAB Specimen Performing Organization Address [facility] P sid Number MAIN LAB [address] [place] [address] * POC GLUCOSE (09/05/2020 1:30 PM CDT) Glucose, POC 132 (H) 70 - 100 MG/DL MAIN LAB Specimen Performing Organization Address [facility] P sid Number MAIN LAB [address] [place] [address] * POC GLUCOSE (09/05/2020 8:20 AM CDT) Glucose, POC 146 (H) 70 - 100 MG/DL MAIN LAB Specimen Performing Organization Address [facility] P sid Number MAIN LAB [address] [place] [address] * PHOSPHORUS (09/05/2020 3:30 AM CDT) Phosphorus 4.2 2.0 - 4.5 MG/DL MAIN LAB Specimen Blood Performing Organization Address City/[facility]/ZIP Code P sid Number MAIN LAB [address] [place] [address] * MAGNESIUM (09/05/2020 3:30 AM CDT) Magnesium 1.8 1.6 - 2.6 mg/dL MAIN LAB Specimen Blood Performing Organization Address [facility]/ZIP Code P sid Number MAIN LAB [address] [place] [address] * CBC (09/05/2020 3:30 AM CDT) Pathologist [facility] White Blood 17.5 (H) 4.5 - 11.0 [...] P sid Number KU MAIN LAB [address] [place] [address] * TRIGLYCERIDE (09/05/2020 3:30 AM CDT) Pathologist [facility] Triglycerides 140 <150 MG/DL K[facility] MAIN LAB Specimen Blood Performing Organization Address City/State/ZIP Code P sid Number [facility] MAIN LAB [address] [place] [address] * COMPREHENSIVE METABOLIC PANEL (09/05/2020 3:30 AM CDT) Pathologist [facility] Sodium 136 (L) 137 - 147 MMOL/L [...] (L) >60 mL/min K[facility] MAIN LAB Comment: [place] The eGFR is not validated f or use in drug dosing adjustments. Continue to use estimated creatinine clearance per dosing reference text. Please contact the Clinical Pharmacist for questions. eGFR 59 (L) >60 mL/min [facility] MAIN LAB [place] Comment: The eGFR is not validated for use in drug dosing adjustments. Continue to use estimated creatinine clearance per dosing reference text. Please contact the Clinical Pharmacist for questions. Specimen Blood Performing Organization Address City/State/ZIP Code P sid Number [facility] MAIN LAB [address] [place] [address] * CBC (09/04/2020 8:15 PM CDT) White [...] MAIN LAB Specimen Blood Performing Organization Address City/[facility]/ZIP Code P sid Number [facility] MAIN LAB [address] [place] [address] * LACTIC ACID(LACTATE) (09/04/2020 3:25 PM CDT) Lactic Acid 1.5 0.5 - 2.0 MMOL/L K[facility] MAIN LAB Specimen Blood Performing Organization Address City/[facility]/ZIP Code P sid Number [facility] MAIN LAB [address] [place] [address] * BASIC METABOLIC PANEL (09/04/2020 3:25 PM [...] Calcium 7.8 (L) 8.5 - 10.6 MG/DL MAIN LAB eGFR Non 53 (L) >60 mL/min MAIN LAB Comment: [place] The eGFR is not validated f or use in drug dosing adjustments. Continue to use estimated creatinine clearance per dosing reference text. Please contact the Clinical Pharmacist for questions. eGFR >60 >60 mL/min MAIN LAB [place] Comment: The eGFR is not validated for use in drug dosing adjustments. Continue to use estimated creatinine clearance per dosing reference text. Please contact the Clinical Pharmacist for questions. Specimen Blood Performing Organization Address City/[facility]/ZIP Code P sid Number MAIN LAB [address] [place] [address] * CBC (09/04/2020 3:25 PM CDT) White Blood 18.5 (H) 4.5 - 11.0 K/UL MAIN LAB Cells RBC 3.65 (L) 4.0 - 5.0 M/UL MAIN LAB Hemoglobin 11.2 (L) 12.0 - 15.0 GM/DL KU MAIN LAB Hematocrit 31.9 (L) 36 - 45 % MAIN LAB MCV 87.2 80 - 100 FL MAIN LAB MCH 30.6 26 - 34 PG MAIN LAB MCHC 35.1 32.0 - 36.0 G/DL MAIN LAB RDW 15.0 11 - 15 % KU MAIN LAB Platelet Count 239 150 - 400 K/UL MAIN LAB MPV 9.7 7 - 11 FL MAIN LAB Specimen Blood Performing Organization Address City/State/ZIP Code P sid Number [facility] [address] [place] [address] * LACTIC ACID (BG - RAPID LACTATE) (09/04/2020 1:17 PM CDT) Lactic Acid,BG 1.0 0.5 - 2.0 MMOL/L [facility] Specimen Blood Performing Organization Address [facility] Code P sid Number [facility] MAIN LAB [address] [place] [address] * POTASSIUM, BG (09/04/2020 1:17 PM CDT) Potassium 4.2 3.5 - 5.1 MMOL/L KU MAIN LAB Specimen Blood Performing Organization Address [facility]/ZIP Code P sid Number [facility] MAIN LAB [address] [place] [id number] * SODIUM,BG (09/04/2020 1:17 PM CDT) Sodium 136 (L) 137 - 147 MMOL/L KU MAIN LAB Specimen Blood Performing Organization Address [facility] Code P sid Number MAIN LAB [address] [place] [id number] * IONIZED CALCIUM,BG (09/04/2020 1:17 PM CDT) Ionized Calcium 1.12 1.0 - 1.3 MMOL/L MAIN LAB Specimen Blood Performing Organization Address [facility] P sid Number KU MAIN LAB [address] [place] [id number] * GLUCOSE,BG (09/04/2020 1:17 PM CDT) Glucose 161 (H) 70 - 100 MG/DL MAIN LAB Specimen Blood Performing Organization Address [facility] P sid Number [facility] MAIN LAB [address] [place] [address] * BLOOD GASES, ARTERIAL (09/04/2020 1:17 PM CDT) pH-Arterial 7.36 7.35 - 7.45 MAIN LAB pCO2-Arterial 41 35 - 45 MMHG MAIN LAB pO2-Arterial 123 (H) 80 - 100 MMHG MAIN LAB Base 2.1 MMOL/L MAIN LAB Deficit-Arteria l O2 Sat-Arterial 98.2 95 - 99 % MAIN LAB Bicarbonate-ART 22.7 21 - 28 MMOL/L MAIN LAB -Murali Specimen Blood, arterial - Blood Performing Organization Address [facility] P sid Number MAIN LAB [address] [place] [address] * HEMOGLOBIN & HEMATOCRIT, BG (09/04/2020 1:17 PM CDT) Hemoglobin BG 12.3 12.0 - 15.0 GM/DL MAIN LAB Hematocrit BG 38.0 36 - 45 % MAIN LAB Specimen Blood Performing Organization Address City/State/ZIP Code P sid Number [facility] [address] [place] [address] * SURGICAL PATHOLOGY (09/04/2020 1:01 PM CDT) PATHOLOGY [facility]IN [email or web address] Department of Pathology and Laboratory Medicine [address] [place] [address] Surgical Pathology Office: [phone] SURGICAL PATHOLOGY REPORT NAME: CARLOS ALBERTO TORRES SURG PATH #: [id number] MR #: [id number] SPECIMEN CLASS: SR BILLING #: [id number] ALT ID #: LOCATION: [facility] DATE OF PROCEDURE: 09/04/2020 AGE: 70 SEX: [...] submitted to Biospec[facility] Repository Core Facility: No [employer] sections are submitted in cassettes A1-A2 (leasing representative sections of mucosa). (amf) B. Fixative: Formalin Labeled: "Descending colon" Measurements: 5.7 x 3.9 x 2.7 cm Serosa: The serosa appears to be entirely covered in mesenteric fat. There is a staple line at end of the specimen. Mucosa: Trivedi-pink with a diverticulum Tissue submitted to [facility] Repository Core Facility: No [employer] sections are submitted as follows: B1 [employer] sections of diverticulum. B2 [employer] sections of mucosa. (amf) C. Fixative: Formalin Labeled: "Transverse colon" Measurements: 12.5 cm in length by 5.0 cm in diameter Serosa: Trivedi-pink with multiple adhesions on the serosal surface. There are staple lines on one end of specimen. Mucosa: Trivedi-pink with multiple diverticula. Tissue submitted to [facility] Repository Core Facility: No [employer] sections are submitted as follows: C1 [employer] sections of diverticula. C2 [employer] sections of unremarkable mucosa. (amf) D. Received fresh labeled with the patient's name and "mesh" is an aggregate of two mesh fragments with adhered soft trivedi-pink tissue measuring 5.3 x 4.1 x 2.0 cm in aggregate. The specimen is submitted for gross only identification. (amf) 09/04/2020 Specimen Tissue - Rectum Tissue - Colon Tissue - Colon Performing Organization Address City/State/ZIP Code P sid Number [facility] [address] [facility] [place] [address] * TRANSFUSE RBC'S (09/04/2020 12:51 PM CDT) Specimen Blood * TRANSFUSE RBC'S (09/04/2020 12:51 PM CDT) Specimen Blood * TRANSFUSE RBC'S (09/04/2020 12:19 PM CDT) Specimen Blood * POTASSIUM, BG (09/04/2020 11:55 AM CDT) Potassium 4.2 3.5 - 5.1 MMOL/L K[facility] MAIN LAB Specimen Blood Performing Organization Address [facility] Code P sid Number [facility] MAIN LAB [address] [place] [address] * SODIUM,BG (09/04/2020 11:55 AM CDT) Sodium 137 137 - 147 MMOL/L [facility] MAIN LAB Specimen Blood Performing Organization Address [facility] P sid Number MAIN LAB [address] [place] [address] * IONIZED CALCIUM,BG (09/04/2020 11:55 AM CDT) Ionized Calcium 1.22 1.0 - 1.3 MMOL/L MAIN LAB Specimen Blood Performing Organization Address [facility] P sid Number MAIN LAB [address] [place] [address] * GLUCOSE,BG (09/04/2020 11:55 AM CDT) Glucose 120 (H) 70 - 100 MG/DL K[facility] MAIN LAB Specimen Blood Performing Organization Address [facility] P sid Number [facility] MAIN LAB [address] [place] [address] * BLOOD GASES, ARTERIAL (09/04/2020 11:55 AM CDT) pH-Arterial 7.39 7.35 - 7.45 KU MAIN LAB pCO2-Arterial 44 35 - 45 MMHG KU MAIN LAB pO2-Arterial 92 80 - 100 MMHG KU MAIN LAB Base 1.0 MMOL/L [facility] MAIN LAB Excess-Arterial O2 Sat-Arterial 96.4 95 - 99 % KU MAIN LAB Bicarbonate-ART 25.3 21 - 28 MMOL/L [facility] MAIN LAB -Murali Specimen Blood, arterial - Blood Performing Organization Address [facility] Code P sid Number MAIN LAB [address] [place] [address] * HEMOGLOBIN & HEMATOCRIT, BG (09/04/2020 11:55 AM CDT) Hemoglobin BG 12.2 12.0 - 15.0 GM/DL KU MAIN LAB Hematocrit BG 37.5 36 - 45 % [facility] MAIN LAB Specimen Blood Performing Organization Address City/[facility]/ZIP Code P sid Number [facility] MAIN LAB [address] [place] [address] * POC GLUCOSE (09/04/2020 10:22 AM CDT) Glucose, POC 80 70 - 100 MG/DL [facility] MAIN LAB Specimen Performing Organization Address City/[facility]/ZIP Code P sid Number [facility] MAIN LAB [address] [place] [address] * BLOOD TYPE CONFIRMATION - ORDER ONLY IF REQUESTED BY LAB (09/04/2020 10:00 AM CDT) ABO/RH(D) O POS K[facility] MAIN LAB Specimen Lung Performing Organization Address City/[facility]/ZIP Code P sid Number [facility] MAIN LAB [address] [place] [address] * TYPE & CROSSMATCH (09/04/2020 9:19 AM CDT) Units Ordered 4 [facility] MAIN LAB Crossmatch 09/07/2020,2359 [facility] MAIN LAB Expires Record Check 2ND TYPE REQUIRED [facility] MAIN LAB ABO/RH(D) O POS [facility]U MAIN LAB Antibody Screen NEG [facility] MAIN LAB Electronic YES [facility] MAIN LAB Crossmatch Unit Number [id number] [facility] MAIN LAB Blood Component RBC,ADSOL,LEUKO [facility]ED [facility] Type Unit Division 00 [facility] Status OF Unit TRANSFUSED [facility] ISSUE DATE TIME [facility] PRODUCT CODE Q9499I80 [facility] BLOOD TYPE O POS [facility] CODING STATUS 5100 [facility] BLOOD [id number] [facility] EXPIRATION DATE Transfusion OK TO TRANSFUSE [facility] Status Crossmatch COMPATIBLE,ELECTRONIC [facility] Result Unit Number [id number] [facility] Blood Component RBC,ADSOL,LEUKO REDUCED [facility] Type Unit Division 00 [facility] Status OF Unit TRANSFUSED [facility] ISSUE DATE TIME [facility] PRODUCT CODE [id number] [facility] BLOOD TYPE O POS [facility] CODING STATUS 5100 [facility] BLOOD [id number] [facility] EXPIRATION DATE Transfusion OK TO TRANSFUSE [facility] Status Crossmatch COMPATIBLE,ELECTRONIC [facility] Result Unit Number [id number] [facility] Blood Component RBC,ADSOL,LEUKO REDUCED [facility] Type Unit Division 00 [facility] Status OF Unit REL FROM ALLOC [facility] Transfusion OK TO TRANSFUSE [facility] Status Crossmatch COMPATIBLE,ELECTRONIC [facility] Result Unit Number [id number] [facility] Blood Component RBC,ADSOL,LEUKO REDUCED [facility] Type Unit Division 00 [facility] Status OF Unit REL FROM ALLOC [facility] Transfusion OK TO TRANSFUSE [facility] Status Crossmatch COMPATIBLE,ELECTRONIC [facility] Result Unit Number [id number] [facility] Blood Component RBC,ADSOL,LEUKO REDUCED [facility] Type Unit Division 00 [facility] Status OF Unit TRANSFUSED [facility] ISSUE DATE TIME [id number] [facility] PRODUCT CODE [id number] [facility] BLOOD TYPE O POS [facility] CODING STATUS 5100 [facility] BLOOD [id number] [facility] EXPIRATION DATE Transfusion OK TO TRANSFUSE [facility] Status Crossmatch COMPATIBLE,ELECTRONIC [facility] Result Unit Number [id number] [facility] Blood Component RBC,ADSOL,LEUKO REDUCED,2ND [facility] Type CONT. 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 Administered Medications Action Date Dose Rate Site Medication Order MAR Action acetaminophen (TYLENOL) tablet 650 mg 650 mg, Oral, EVERY 6 HOURS PRN, Starting on Rand 09/14/20 at 1900, Until Rand 09/21/20 at 1745, Pain non-opioid: ma y be used alone or in combination with opioid analgesia, TOTAL ACETAMINOPHEN DOSE NOT TO EXCEED 4GM DAILY 09/20/2020 8:20 PM CDT 75 mL/hr Adult Continuous Parenteral Nutrition Given - New (PN) Bag Central, PN PER INSTR, First dose (afte r last reorder) on Fri09/20/20 at 2030, Until Discontinued, 1,800 mL 09/17/2020 4:43 PM CDT 30 mL aluminum/magnesium [...] 30 mL Given 09/11/2020 6:19 AM CDT 09/21/2020 9:07 AM CDT 150 mg buPROPion [...] 150 mg Given 09/05/2020 8:07 AM CDT 09/21/2020 2:31 PM CDT 2 g 200 mL/hr cefepime (MAXIPIME) 2 g in sodium Given - New chloride 0.9% (NS) 100 mL IVPB (MB+) Bag 2 g, Intravenous, 100 mL, Administer over 30 Minutes, EVERY 8 HOURS, First dose (after last modification) on Rand 09/14/20 at 0800, Until Discontinued 2 g 200 [...] - New Bag 09/14/2020 8:12 AM CDT 09/21/2020 8:39 AM CDT 10 [...] mg Given 09/05/2020 8:07 AM CDT 09/21/2020 8:37 AM CDT 550 mg DAPTOmycin [...] Abdominal Tissue Given 09/07/2020 8:24 AM CDT 09/21/2020 8:39 AM CDT 300 [...] 300 mg Given 09/05/2020 11:31 AM CDT 09/21/2020 2:33 PM CDT 2 tablets HYDROcodone/acetaminophen [...] 2 tablets Given 09/14/2020 9:21 PM CDT 09/18/2020 9:52 AM CDT 0.125 mg hyoscyamine (ANASPAZ) rapid dissolve Given tablet 0.125 mg 0.125 mg, Sublingual, EVERY 4 HOURS PRN, Starting on Fri09/04/20 at 1547, Until Rand 09/21/20 at 1745, Bladder Spasm s 0.125 mg Given 09/16/2020 10:44 PM CDT 0.125 mg Given 09/16/2020 9:34 AM CDT 0.125 mg Given 09/15/2020 9:52 PM CDT 0.125 mg Given 09/13/2020 12:55 PM CDT 0.125 mg Given 09/08/2020 10:15 AM CDT 0.125 mg Given 09/06/2020 10:30 PM CDT 09/21/2020 6:57 AM CDT 50 mcg levothyroxine [...] NEEDED, Starting on Fri09/04/20 at 0948, Until Fri 1 at 1745, Other..., for IV insertion 09/11/2020 9:47 PM CDT 3 mg melatonin tablet 3 mg Given 3 mg, Oral, AT BEDTIME PRN, Starting on Fri09/04/20 at 1941, Until Fri09/21/20 a t 1745, Insomnia 3 mg Given 09/10/2020 8:48 PM CDT 09/21/2020 2:25 PM CDT 750 [...] 750 mg Given 09/08/2020 2:20 PM CDT 09/20/2020 5:40 PM CDT 100 [...] - New Bag 09/15/2020 5:35 PM CDT 09/21/2020 8:39 AM CDT 1 drop naphazoline [...] 4 mg Given 09/05/2020 2:49 AM CDT 09/21/2020 8:39 AM CDT 15 mg oxybutynin [...] 15 mg Given 09/05/2020 8:06 AM CDT 09/21/2020 8:39 AM CDT 40 mg [...] packet), Oral, TWICE DAILY, First dose on 09/04/20 at 2100, Unti l Discontinued, 8.5 GRAMS [...] 17 g Given 09/04/2020 8:42 PM CDT 09/21/2020 2:25 PM CDT 10 mg prochlorperazine (COMPAZINE) injection Given 10 mg 10 mg, Intravenous, EVERY 6 HOURS PRN, Starting on Rand 09/07/20 at 0307, Until Rand 09/21/20 [...] 80 mg Given 09/05/2020 4:55 AM CDT 09/21/2020 8:43 AM CDT 10 mL sodium [...] 10 mL Given 09/13/2020 8:19 PM CDT 09/21/2020 8:39 AM CDT 125 mg vancomycin (FIRVANQ) oral solution 125 Given mg 125 mg, Oral, TWICE DAILY, First dose o n e 09/12/20 at 1000, Until Discontinued 125 mg [...] 125 mg Given 09/12/2020 12:50 PM CDT documented in this encounter Discontinued [...] reorder) on Fri09/19/20 at 2030, 1,800 mL 2020 (Given - New Bag - Provider: Kelly [...] mg, Oral, DAILY, First dose on Fri [facility], 09/05/20 at 0900, Until Discontinued RN) 0042 (Given - New Bag - Provider: Cristal Morris RN)0821 (Given - New Bag - Provider: Sharlene Nix RN)1542 (Given - New Bag - Provider: Sharlene Nix RN) 0026 (Given - New Bag - Provider: Kelly Gaytan RN)0837 (Given - New Bag - Provider: Jane Helms RN)1431 (Given - New Bag - Provider: Jane [...] hernandez, KOBI) cetirizine (ZyrTEC) tablet 10 mg 09 (Given - 10 mg, Oral, DAILY, First dose on Fri Provider: Ansley hickey 09/05/20 at 0900, Until Discontinued Nicola Helms RN) 09 (Canceled Entry - Provider: Sharlene brock RN - Comment: order to not administer) 1443 (Given - Provider: Jane hernandez RN) COVID-19 vacc,mRNA (MODERNA) PF immunization 100 mcg (COMPLETED) 100 mcg, Intramuscular, GENERAL SURGERY PHYSICIAN ASSISTANT FROM PHARMACY, 1 dose, Fri09/06/20 at 0800, [...] with primary team. 0824 (Given - Provider: Sharlene Nix RN) 0837 (Given - Provider: Jane hernandez, KOBI) DAPTOmycin (CUBICIN) injection 550 mg 0859 (Given - 550 mg (rounded from 567 mg = 10 mg/kg Provider: Amadeo gutierrez 56.7 kg Adjusted weight), Intravenous, Nicola domingo, 11 mL, Administer over 5 Minutes, EVERY RN) 24 HOURS, First dose (after last modification) on Fri09/15/20 at 0800, Until Discontinued 0826 (Given - Provider: Sharlene Nix RN) 0836 (Given - Provider: Jane hernandez, KOBI) enoxaparin (LOVENOX) syringe 40 mg 0859 (Given - 40 mg, Subcutaneous, DAILY, First dose Provider: Mirlande ia on Rand 09/07/20 at 0900, Until Nicola Helms, Discontinued, For patients undergoing RN) surgery: Consult physician in advance - - enoxaparin is an anticoagulant and may need to be held for 12hr prior to surgery or invasive procedures. NOTE: This is a HIGH ALERT Medication. 0827 (Given - Provider: Sharlene Nix RN)2 017 (Given - Provider: Kelly Gaytan, RN) 0839 (Given - Provider: aJne hernandez RN) gabapentin (NEURONTIN) capsule 300 mg 09 (Given - 300 mg, Oral, TWICE DAILY, First dose on Provider: Amadeo gutierrez [facility] 09/05/20 at 1145, Until Discontinued Nicola taylor RN)2105 (Given - Provider: Héctor Morris RN) 0630 (Given - Provider: Héctor Morris RN) 0657 (Given - Provider: Kelly Gaytan, KOBI) levothyroxine (SYNTHROID) tablet 50 mcg 06 (Given - 50 mcg, Oral, DAILY, First dose on Fri Provider: Jalen armenta 09/05/20 at 0900, Until Discontinued, KOBI Morris) Give 1 hour before a meal. If patient is receiving tube feedings, hold tube feed 1hr before and 1hr after dose. 0827 (Given - Provider: Sharlene Nix RN)1 542 (Given - Provider: Sharlene Nix RN)2017 (Given - Provider: Kelly Gaytan RN) 0839 (Given - Provider: Jane hernandez, KOBI)1425 (Given - Provider: Jane Helms, KOBI) methocarbamoL (ROBAXIN) tablet 750 mg 0900 (Given - 750 mg, Oral, THREE TIMES DAILY, First Provider: Mirlande ia dose (after last modification) on Fri Nicola Sosa hooper, 09/08/20 at 1500, Until Discontinued RN)1434 (Given - Provider: Jane Helms, KOBI)2105 (Given - Provider: Héctor Morris RN) metroNIDAZOLE (FLAGYL) 500 mg IVPB 100 0946 (Given - New mL (CANCELED) Bag - Provider: 500 mg, Intravenous, EVERY 12 HOURS, Jane Petersen First dose (after last modification) on KOBI Helms) 2100 Fri09/15/20 at 2115, Until Discontinued (Given - New Bag - Provider: Héctor Morris, RN) 1740 (Given - New Bag - Provider: Sharlene Nix, RN) micafungin (MYCAMINE) 100 mg in sodium [...] 214 (Med Not Given - Provider: Sharlene Nix, RN - Reason: Patient Refused)174 (Given - Provider: Sharlene Nix, RN)2017 (Given - Provider: Kelly Gaytan, RN) 0839 (Given - Provider: Jane hernandez, KOBI)1426 (Med Not Given - Provider: Jane Helms RN - Reason: Patient Refused) naphazoline 0.025 % /pheniramine 0.3 % 1434 (Given - (NAPHCON-A) ophthalmic solution 1 drop Provider: Mirlande diaz 1 drop, Both Eyes, FOUR TIMES DAILY, Nicola green, First dose on Fri09/19/20 at 1430, Until RN)1619 (Giv en - Discontinued Provider: Jane Helms RN)2103 (Given - Provider: Héctor Morris RN) 2016 (Patch/Topical Removed - Provider: Kelly Gaytan, RN)2030 (Patch/Topical Applied - Provider: Kelly Gaytan, RN) 1545 (Due: Patch/Topical Removed - Provi [...] hickey 09/04/20 at 1645, Until Discontinued, Do Petersen Are valo, not crush or chew RN) 0827 (Given - Provider: Sharlene Nix RN) 0839 (Given - Provider: Jane hernandez RN) pantoprazole DR (PROTONIX) tablet 40 mg 899 (Given - 40 mg, Oral, DAILY, First dose on Fri Provider: Ansley hickey 09/05/20 at 0900, Until Discontinued, Do Petersen Are valo, not crush or chew tablet. RN) 0828 (Patch/Topical Verified - Provider: Sharlene Nix RN)2022 (Patch/Topical Verified - Provider: Kelly Gaytan RN) 0843 (Patch/Topical Verified - Provider: Jane [...] Nix RN)2 018 (Given - Provider: Kelly Gaytan RN) 0837 (Given - Provider: Jane hernandez RN) polyethylene glycol 3350 (MIRALAX) 0859 (Given - [...] Nicola taylor, on Fri09/04/20 at 2100, Until RN)2105 (Given - Discontinued, Hold for loose stools Provider: Cristal Morris RN) 0042 (Given - Provider: Héctor Morris RN)0825 (Given - Provider: Sharlene Nix RN)1544 (Given [...] Nix RN)2 018 (Given - Provider: Kelly Gaytan RN) 0844 (Given - Provider: Jane hernandez RN) sodium chloride PF 0.9% syringe 10 mL 0901 (Given - 10 mL, Intravenous, TWICE DAILY, First Provider: Mirlande ia dose on Fri09/13/20 at 2100, Until Nicola Helms, Discontinued, Flush drain as ordered. RN)2105 (Given - See Abscess Drain Maintenance Order. Provider: Anirudh Morris RN) 0832 (Given - Provider: Sharlene Nix RN)2 017 (Given - Provider: Kelly Gaytan RN) 0839 (Given - Provider: Jane hernandez RN) vancomycin (FIRVANQ) oral solution 125 0859 (Given - mg Provider: Jane 125 mg, Oral, TWICE DAILY, First dose on Nicola Matthias luis, Fri09/12/20 at 1000, Until Discontinued RN)2101 (Giv en - Provider: Héctor Morris, RN) 09/20/2020 09/21/2020 Medication Order 09/19/2020 acetaminophen (TYLENOL) [...] Nix RN) 0909 (Given - Provider: Jane hernandez RN)1433 (Given - Provider: Jane Helms RN) HYDROcodone/acetaminophen [...] HIGH ALERT (Given - Provider: Medication. Jane Helms RN)2104 (Given - Provider: Héctor Morris RN) hyoscyamine (ANASPAZ) rapid dissolve tablet 0.125 [...] Santos)19 30 (Given - Provider: Kelly Gaytan, RN) ondansetron (ZOFRAN) injection 4 mg 0351 (Given - 4 mg, Intravenous, EVERY 6 HOURS PRN, Provider: Jalen armenta Starting 09/04/20 at 1941, Until Rand Arturo RN) 09/21/20 at 1745, Nausea/Vomiting Injectable phenoL (CLORASEPTIC) [...] Have Count Last Ordered Date Been Administered 09/04/2020 Adult Continuous Parenteral Nutrition 10 09/20/2020 (PN) naphazoline 0.025 % /pheniramine 0.3 % 1 09/19/2020 (NAPHCON-A) ophthalmic solution 1 drop DAPTOmycin (CUBICIN) injection 230 mg 1 09/15/2020 DAPTOmycin (CUBICIN) injection 340 mg 1 09/15/2020 DAPTOmycin (CUBICIN) injection 550 mg 2 09/15/2020 09/07/2020 metroNIDAZOLE (FLAGYL) 500 mg IVPB 100 3 09/15/2020 mL micafungin (MYCAMINE) 100 mg in sodium 1 09/15/2020 chloride 0.9% (NS) 100 mL IVPB (MB+) potassium chloride in water IVPB 10 mEq 4 09/15/2020 09/04/2020 acetaminophen (TYLENOL) tablet 650 mg 3 09/14/2020 09/13/2020 cefepime (MAXIPIME) 2 g in sodium 2 0703/2020 chloride 0.9% (NS) 100 mL IVPB (MB+) 09/04/2020 fentaNYL citrate PF (SUBLIMAZE) 2 2020 injection 25-50 mcg HYDROcodone/acetaminophen (NORCO) 5/325 1 09/14/2020 mg tablet 1-2 tablet 09/04/2020 cefTRIAXone (ROCEPHIN) IVP 2 g 5 021 fentaNYL citrate PF (SUBLIMAZE) 1 2020 injection 09/04/2020 fluconazole (DIFLUCAN) tablet 200 mg 3 0 09/13/2020 09/04/2020 metroNIDAZOLE (FLAGYL) tablet 500 mg 2 0 09/13/2020 midazolam (VERSED) injection 1 midazolam (VERSED) injection 1 mg 1 08/17 sodium chloride PF 0.9% syringe 10 mL 1 09/13/2020 09/04/2020 lactated ringers infusion 7 09/12/2020 sodium chloride PF 0.9% flush 10 mL 1 09/04/2020 vancomycin (FIRVANQ) oral solution 125 2 09/12/2020 mg aluminum/magnesium hydroxide (MAALOX) 1 09/11/2020 oral suspension 30 mL calcium gluconate 1 g in sodium chloride 1 09/11/2020 0.9% (NS) 110 mL IVPB (MB+) magnesium sulfate 1 g/D5W 100 mL IVPB 2 09/11/2020 potassium chloride SR (K-DUR) tablet 60 1 09/11/2020 mEq SODIUM CHLORIDE 0.9 % IV SOLP (Cabinet 1 09/10/2020 Override) vancomycin (VANCOCIN) 1,250 mg in sodium 2 09/09/2020 chloride 0.9% (NS) 275 mL IVPB vancomycin (VANCOCIN) 1,500 mg in sodium 1 09/09/2020 chloride 0.9% (NS) 280 mL IVPB vancomycin (VANCOCIN) 1,750 mg in sodium 1 09/09/2020 chloride 0.9% (NS) 285 mL IVPB vancomycin (VANCOCIN) 2,000 mg in sodium 1 09/09/2020 chloride 0.9% (NS) 290 mL IVPB vancomycin, pharmacy to manage 1 021 furosemide (LASIX) injection 20 mg 1 09/04/2020 methocarbamoL (ROBAXIN) tablet 750 mg 3 09/08/2020 enoxaparin (LOVENOX) syringe 40 mg 1 fluconazole (DIFLUCAN) 200 mg/NS 100 mL 1 09/07/2020 IVPB potassium phosphate 24 mmol in sodium 1 09/07/2020 chloride 0.9% (NS) 500 mL IVPB (std) prochlorperazine (COMPAZINE) injection 1 09/07/2020 10 mg 09/04/2020 ondansetron (ZOFRAN) injection 4 mg 2 WATER FOR INJECTION, STERILE IJ SOLN 1 0 09/06/2020 (Cabinet Override) bupivacaine WEALTH MANAGEMENT DIRECTOR 0.125% in NS 50mL 1 08/16 epidural infusion syr COVID-19 vacc,mRNA (MODERNA) PF 1 2020 immunization 100 mcg gabapentin (NEURONTIN) capsule 300 mg 1 09/05/2020 naloxegoL (MOVANTIK) tablet 12.5 mg 1 09/04/2020 nalOXone (NARCAN) injection 0.08 mg 2 Patch Documentation - Scopolamine base 1 09/05/2020 1MG/72HR 1 patch phenoL (CLORASEPTIC) spray 2 spray 1 scopolamine (TRANSDERM-SCOP) 1mg over 3 1 09/05/2020 days patch 1 patch albumin 5% injection 500 mL 1 alvimopan (ENTEREG) capsule 12 mg 1 08/16 bupivacaine WEALTH MANAGEMENT DIRECTOR 0.0625% in NS 50mL 1 epidural infusion syr buPROPion XL (WELLBUTRIN XL) tablet 150 1 09/04/2020 mg cetirizine (ZyrTEC) tablet 10 mg 1 09/04 diphenhydrAMINE (BENADRYL) injection 1 0 09/04/2020 12.5 mg FENTANYL CITRATE (PF) 50 MCG/ML IJ SOLN 1 09/04/2020 (Cabinet Override) fentaNYL citrate PF (SUBLIMAZE) 1 2020 injection 25 mcg furosemide (LASIX) tablet 40 mg 1 2020 haloperidol lactate (HALDOL) injection 1 1 09/04/2020 mg heparin (porcine) PF syringe 5,000 Units 1 09/04/2020 HYDROmorphone injection (DILAUDID) 0.2 1 09/04/2020 mg HYDROmorphone injection (DILAUDID) 0.5 1 09/04/2020 mg HYDROmorphone injection (DILAUDID) 0.5-1 1 09/04/2020 mg HYDROmorphone PF (DILAUDID) 10 mcg/mL, 1 09/04/2020 bupivacaine PF (MARCAINE) 0.1 % in sodium chloride 0.9% (NS) 50 mL epidura l infusion syr hyoscyamine (ANASPAZ) rapid dissolve 1 0 09/04/2020 tablet 0.125 mg LACTATED RINGERS IV SOLP (Cabinet 1 08/16 Override) levothyroxine (SYNTHROID) tablet 50 mcg 1 09/04/2020 lidocaine PF 1% (10 mg/mL) injection 0.2 1 09/04/2020 mL melatonin tablet 3 mg 1 09/04/2020 methocarbamoL (ROBAXIN) 1,000 mg in 1 dextrose 5% (D5W) 100 mL IVPB nicotine (NICODERM CQ STEP 2) 14 mg/day 1 09/04/2020 patch 1 patch nicotine polacrilex (NICORETTE) gum 2 mg 1 09/04/2020 ondansetron (ZOFRAN ODT) rapid dissolve 1 09/04/2020 tablet 4 mg oxybutynin XL (DITROPAN XL) tablet 15 mg 1 09/04/2020 oxyCODONE (ROXICODONE) tablet 5-10 mg 2 09/04/2020 oxyCODONE (ROXICODONE) tablet 5-15 mg 1 09/04/[address] (PROTONIX) tablet 40 mg 1 09/04/2020 polyethylene glycol 3350 (MIRALAX) 1 packet 17 g senna/docusate (SENOKOT-S) tablet 1 1 tablet simethicone (MYLICON) chew tablet 80 mg 1 09/04/2020 sodium chloride 0.9 % infusion 1 09/04 First Ordered Date Lab Orders Without Results [...] Consult Count Last Ordered Date 09/16/2020 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
--- OUTSIDE RECORDS SUMMARY | 2020-11-03 21:50 | XMS REPORT | Encounter Summary ---
Author Author [facility] Organization [facility] Address Unknown Phone Unavailable Care Team Providers Care Aluminum Molder Name Role Phone Geraldo Mcknight MD PCP [...] Details Care Team Description Date Type Department Lilly Strickland MD [address] [place] [address] [phone] Marivel Melendez APRN-RODOLFO [address] [place] [address] [phone] 09/04/2020 Anesthesia Operating Room: [facility] [address] [facility]. Level 2 [place] [address] Anesthesia Record Responsible Anesthesiologist Anesthesia Start Time Anesthesi a Stop Time Procedure Name Lilly Strickland MD 09/04/20 1031 09/04/20 1500 EXPLORATORY LAPAROTOMY WITHOUT BIOPSY WITH PARTIAL CYSTECTOMY (N/A Abdomen) Date Time Event Comment 843 AN Equip Check 2020 958 1031 Anes Start 1031 An Start Data 1032 Out of Pre Procedure 1034 In Room 1037 An Induction The patient was ree valuated immediately before moderate or deep sedation use and before anesthesia induction. 1039 An Intubation 1044 Anesthesia Ready 1050 Antibiotic Given [address] Quinonez taking over for Dr. Strickland 1111 Proc Start 1455 An Extubation 1457 an stop data 1500 Handoff to RN I completed my SBAR handoff to the receiving nurse. 1500 An Stop Meds Name Total propofol (DIPRIVAN) 200 mg/ 20 mL 50 mg injection (VIAL) dexamethasone (DECADRON) 4 mg/mL 4 mg injection propofol (DIPRIVAN) infusion 1,470.31 mg remifentaniL (ULTIVA) 1 mg/3 mL 1,000 962.16 mcg mcg in sodium chloride 0.9% (NS) 20 mL Injection phenylephrine (BENNY-SYNEPHRINE) 0.1 mg/mL 500 mcg injection syr sugammadex (BRIDION) 100 mg/mL iv soln 120 mg artificial tears (GENTEAL TEARS; BION 2 drop TEARS) single dose solution fentaNYL PF (SUBLIMAZE) injection 200 mcg lidocaine PF 1% (10 mg/mL) injection 5 mL lidocaine 1.5% /EPINEPHrine 1:200,000 3 mL epidural test dose (5 mL amp) ceFAZolin (ANCEF) 4 g metroNIDAZOLE (FLAGYL) 500mg/100mL IVPB 500 mg bupivacaine 0.0625% in NS 50mL epidural 45.6 mL infusion syringe heparin (porcine) PF syringe 5,000 Units 5,000 Units HYDROmorphone (DILUADID) 2 mg acetaminophen (OFIRMEV) 1000mg injection 1,000 mg phenylephrine (BENNY-SYNEPHRINE) 10 mg in 0.38 mg sodium chloride 0.9% (NS) 250 mL IV dri p (std conc) rocuronium (ZEMURON) inj 60 mg labetalol 5 mg lactated ringers infusion 600 mL electrolyte-A (PLASMA-LYTE) 1,000 mL albumin 5% (500mL) 500 mL * Name O2 N2O Inspired N2O Sevoflurane Inspired Sevoflurane * Name Total TRANSFUSE RBC'S 600 mL Removal Type Details Placement Indwelling 09/04/20; (in OR); Regular (Two-way) 09/04/20 0000 by Sivan Morley, KOBI Catheter Colostomy 09/04/20; 1419; Upper Right Quadrant 0 09/04/20 1419 by Wandy Millan, KOBI 09/20/20 1653 by Sharlene Nix RN NEPHROSTOM 06/29/20; 0828; Flank, Right Lower 0828 by Pedro Y TUBE Lateral; 8 FR; 09/20/20; 1653 Laure, R N 09/20/20 1653 by Sharlene Nix RN NEPHROSTOM 06/29/20; 0828; Flank, Left Lower 06/15 08/04 0828 by Winnie Mora TUBE Lateral; 8 FR; 09/20/20; 1653 KOBI Craven 09/26/20 1837 by Luly Smith RN Fistula 06/29/20; 1515; Lower Right Quadrant; 06/29/20 1515 by Jakob 09/26/20; 1837 KOBI Plascencia 09/09/20 1112 by Thais Vaz, KOBI PICC 07/03/20; 1136; ICU; Adolfo PEACE timeout 07/03/20 1136 by Valeria Farnsworth VAT ; Correct Patient, Correct Swenehart, Sayra Lumen Procedure, Correct Patient Position, Correct Equipment / Implants Available, Correct Side / Site Marked "YES"; Hand Hygiene, Cap , Mask, Sterile Gloves, Sterile Gown, Eye Protection, Full Body Sterile Drape; Chlorhexadine (CHG); Basilic, Right; 4 FR; Non-tunneled; Microintroducer Technique, Ultrasound, Lidocaine Prep (Trimmed @38cm inserted@37cm CIRC=30cm ); Other (Comment) (4.1mm 32%); 1; Securement device, Chlorhexadine (CHG) impregnated sponge, Sterile occlusive dressing; Other (Comment) (ACJ/DSVC per 3CG green shannan ); 09/09/20; 1112 10/03/20 1256 by Griffin, Numerical Control Machine Operator Wounds 09/04/20; Surgical Incision; Anterior; 09/04/20 0000 by Ward, Abdomen; 10/03/20; 1256 KOBI More 09/06/20 1000 by Shannan Noel MD Epidural 09/04/20; 1020 (created via procedure 09/04/20 1020 by Catheter documentation) Alex Bo MD 09/04/20 1455 by Twan Mora SRNA ETT 09/04/20; 1039; Ventilated by mask (1); 09/04/20 1039 by Abby, Direct laryngoscopy, Stylet; VERA Trent Single-Lumen; ETT Size: 7mm; Jiang; Blade Size: 2; Cricoid Pressure: Yes; Oral; 1-Full view of the glottis; 1 insertion attempt; Auscultation, ETCO2 Detector; Vol of Air in Cuff: 8 mL; atrauamtic insertion, dentition intact; 09/04/20; 1455 09/10/20 0521 by Case Cardoso RN Peripheral 09/04/20; 1044; Provider; R; Wrist; 18 09/04/20 1044 by CHARLIE Mora G; 2; 09/10/20; 0521 Twan, SRNA 09/04/20 1850 by Lori Morley RN Arterial 09/04/20; 1150 (created via procedure 09/04/20 1150 by [place], Line documentation); 20 G; 09/04/20; 1850 Rima Gonsales MD 09/21/20 1519 by Jane Patel RN Jackson 09/04/20; 1419; Anterior; Abdomen; 19 09/04/20 1419 by Maude Millan FR; #1; 09/21/20; 1519 KOBI Saba Drain documented in this encounter Social History Date Tobacco Use Types Packs/Day [...] patient have a visual impairment: Yes - Gatzke ders 07/31/2020 Does the patient have impaired ambulation: Yes 07/31/2020 Does the patient have an activity of daily living No (ADL) impairment: 07/31/2020 Does the patient have an instrumental activity of No daily living (IADL) impairment: Date of Assessment Cognitive Status Response 07/31/2020 Does the patient have a cognitive impairment: No documented as of this encounter OR Notes * Anesthesia Postprocedure Evaluation - Shannan Noel MD - 09/04/2020 6:48 PM CDT Post-Anesthesia Evaluation Name: Beverly Torres : 1950 Age: 70 y.o. Sex: female Procedure Information Anesthesia Start Date/Time: 09/04/20 1031 Procedures: EXPLORATORY LAPAROTOMY WITHOUT BIOPSY WITH PARTIAL CYSTECTOMY (N/A Abdomen) COLECTOMY WITH COLOPROCTOSTOMY AND COLOSTOMY - PARTIAL (N/A Abdomen) COLECTOMY WITH COLOPROCTOSTOMY AND COLOSTOMY - PARTIAL (N/A ) Location: MAIN OR 10 / Main OR/Periop Surgeons: Alexander Rodriguez MD; Simone Martell DO Post-Anesthesia Vitals BP: 91/67 (09/04 1829) Pulse: 93 (09/04 1829) Respirations: 25 PER MINUTE (09/04 1829) SpO2: 95 % (09/04 1829) SpO2 Pulse: 93 (09/04 1829) Vitals Value Taken Time BP 91/67 09/04/200 Temp 36.2 C (97.2 F) 09/04/20 1700 Pulse 93 09/04/201829 Respirations 25 PER MINUTE 09/04/201829 SpO2 95 % 09/04/201829 Post Anesthesia Evaluation Note Evaluation location: Pre/Post Patient participation: recovered; patient participated in evaluation Level of consciousness: alert Pain score: 5 Pain management: adequate Hydration: normovolemia Temperature: 36.0C - 38.4C Airway patency: adequate Regional/Neuraxial: Neurological status: sensory deficit Epidural in place Perioperative Events Post-op nausea and vomiting: nausea; resolved Postoperative Status Cardiovascular status: hemodynamically stable Respiratory status: spontaneous ventilation Follow-up needed: none Additional comments: Bilateral level to ice, bolused in PACU Perioperative Events Perioperative Event: No Emergency Case Activation: No Associated attestation - Anahi Salcido MD - 09/04/2020 11:59 PM CDT Post-Anesthesia Evaluation Attestation: I reviewed and agree the indicated post- anesthesia care was provided. I have reviewed jurado portions of the indicated post anesthesia care. I have examined the patient's vitals, physical status, and com plications and agree with what is documented. Staff name: Anahi Salcido MD Date: 09/04/2020 * Anesthesia Procedure Notes - Twan Mora SRNA - 09/04/2020 1:28 PM CDT Associated Order(s): A-LINE INSERTION Anesthesia Procedure: Arterial Line Placement A-LINE INSERTION Date/Time: 09/04/2020 11:50 AM Patient location: OR Indications: frequent labs and hemodynamic monitoring Preprocedure checklist performed: 2 patient identifiers, risks & benefits discussed, patient evaluated, timeout performed, consent obtained, patient being monitored and sterile drape Sterile technique: - Proper hand washing - Cap, mask - Sterile gloves - Skin prep for antisepsis Arterial Line Procedure Patient sedated: yes (see MAR) Sedation type: general; Artery prepped with chlorhexidine; skin prep agent completely dried prior to pro cedure. Location: radial artery Laterality: right Technique: palpation Needle gauge: 20 G Number of attempts: 2 Procedure Outcome Catheter secured with adhesive dressing applied Events: no complications noted during insertion and skin intact, warm, and dry Observation: pt tolerated well Performed by: Lilly Strickland MD Authorized by: Lilly Strickland MD Associated attestation - Lilly Strickland MD - 09/05/2020 7:21 AM CDT I supervised first arterial line attempt and performed second attempt. * Anesthesia Procedure Notes - Alex Bo MD - 09/04/2020 10:24 AM CDT Associated Order(s): EPIDURAL BLOCK Anesthesia Procedure: Epidural Block EPIDURAL BLOCK Date/Time: 09/04/2020 10:20 AM Patient location: pre-op Reason for block: post-op pain management and procedure for pain Preprocedure checklist performed: 2 patient identifiers, risks & benefits discussed, patient evaluated, timeout performed, consent obtained, patient being monitored, existing labs reviewed, no anticoagulant within risk period and sterile drape Sterile technique: - Proper hand washing - Cap, mask - Sterile gloves - Skin prep for antisepsis Epidural Procedure Patient position: sitting Prep: ChloraPrep Monitoring: BP, EKG and continuous pulse ox Approach: midline Location: thoracic Level/Interspace: T8-9 Injection technique: JOHN saline Procedures: landmark technique Number of attempts: 4 Needle/epidural catheter: Needle type: Tuohy Needle gauge: 17 G Needle length: 3.5 in Needle insertion depth: 6 cm Catheter type: wire reinforced and multi orifice Catheter size: 19 G Catheter at skin depth: 11 cm Procedure Outcome Events: negative test dose, no paresthesia and negative aspiration test Patient tolerance of procedure: patient tolerated the procedure well with no imm ediate complications} Procedure Medications Sedation: fentaNYL PF (SUBLIMAZE) injection, 100 mcg Local Anesthesia: lidocaine PF 1% (10 mg/mL) injection, 5 mL Test Dose: lidocaine 1.5% /EPINEPHrine 1:200,000 epidural test dose (5 mL amp), 3 mL Refer to nursing documentation for vitals and monitoring data during procedure. Performed by: Alex Bo MD Authorized by: Lilly Strickland MD Associated attestation - Lilly Strickland MD - 09/05/2020 7:24 AM CDT I was present during the entire procedure performed by a resident. * Anesthesia Preprocedure Evaluation - Lilly Strickland MD - 08/24/2020 10:06 AM CDT Images from the original note were not included. Anesthesia Pre-Procedure Evaluation Name: Beverly Torres : 1950 Age: 70 y.o. Sex: female Procedure Info: Procedure Information Date/Time: 09/04/20919 Procedures: CYSTECTOMY - COMPLETE WITH URETEROILEAL CONDUIT/ SIGMOID BLADDER INCLUDING I NTESTINAL ANASTOMOSIS (N/A ) - COMBO CASE WITH DR MARTELL CO-SURGEON EXPLORATORY LAPAROTOMY WITH/ WITHOUT BIOPSY (N/A ) REPAIR INCISIONAL/ VENTRAL HERNIA - REDUCIBLE - RECURRENT (N/A ) COLECTOMY WITH COLOPROCTOSTOMY AND COLOSTOMY - PARTIAL (N/A ) COLECTOMY WITH COLOPROCTOSTOMY AND COLOSTOMY - PARTIAL (N/A ) Location: MAIN OR 10 / Main OR/Periop Surgeons: Alexander Rodriguez MD; Simone Martell DO Physical Assessment Vital Signs (last filed in past 24 hours): BP: 110/77 (09/04 952) Temp: 36.9 C (98.4 F) (09/04 918) Pulse: 70 (09/04 952) Respirations: 14 PER MINUTE (09/04 952) SpO2: 98 % (09/04 952) Height: 152.4 cm (60") (09/04 918) Weight: 64.9 kg (143 lb) (09/04 918) Patient History Allergies Allergen Reactions Bactrim [Sulfamethoxazole-Trimethoprim] HIVES and ITCHING Blue Dye EDEMA Current Medications Medication Directions acetaminophen (TYLENOL) 325 mg capsule Take 325 mg by mouth every 6 hours as nee ded. Max of 4,000 mg of acetaminophen in 24 hours. buPROPion SR (WELLBUTRIN-SR) 150 mg tablet Take 150 mg by mouth daily. cefTRIAXone (ROCEPHIN) 2 g solr 2 grams IV every 24 hours. dicyclomine (BENTYL) 10 mg capsule Take one capsule by mouth three times daily b efore meals. Preference is to use trospium. This is only to be used if trospium is not available. Do not use both. fluconazole (DIFLUCAN) 200 mg tablet Take one tablet by mouth daily. furosemide (LASIX) 40 mg tablet Take one tablet by mouth daily. hyoscyamine (ANASPAZ) 0.125 mg rapid dissolve tablet Place one tablet under tong ue every 4 hours as needed. levocetirizine (XYZAL) 5 mg tab Take 1 tablet by mouth daily as needed. levothyroxine (SYNTHROID) 50 mcg tablet Take 50 mcg by mouth daily. methocarbamoL (ROBAXIN) 750 mg tablet Take one tablet by mouth twice daily. metroNIDAZOLE (FLAGYL) 500 mg tablet Take one tablet by mouth twice daily. Take with food. Do not drink alcohol while on metronidazole. nicotine (NICODERM CQ STEP 2) 14 mg/day patch Apply 1 patch to top of skin as di rected every 24 hours. Rotate patch location. Indications: stop smoking nicotine (NICODERM CQ STEP 3) 7 mg/day patch Apply 1 patch to top of skin as dir ected every 24 hours. Rotate patch location. Indications: stop smoking nicotine polacrilex (NICORETTE) 2 mg gum Take one each by mouth every 1 hour as needed. Chew to soften and park in mouth between lip and gum. May use 1 piece pe r hour, not to exceed 24 per day, for 12 weeks. May be used for longer, if neede d. ondansetron (ZOFRAN ODT) 4 mg rapid dissolve tablet Dissolve 4 mg by mouth every [address] on tongue to disolve. other medication Total Parenteral Nutrition. oxyCODONE (ROXICODONE) 5 mg tablet Take one tablet to two tablets by mouth every 4 hours as needed pantoprazole DR (PROTONIX) 40 mg tablet Take one tablet by mouth daily. polyethylene glycol 3350 (MIRALAX) 17 g packet Take one packet by mouth twice da alyssia as needed. scopolamine (TRANSDERM-SCOP) 1mg over 3 days 3 day patch Apply 1 patch to top of skin as directed every 72 hours. simethicone (MYLICON) 80 mg chew tablet Chew one tablet by mouth every 6 hours a s needed for Flatulence. trospium XR (SANCTURA XR) 60 mg capsule Take one capsule by mouth daily. This is preferred over dicyclomine which has also been ordered. Do not use both. vancomycin (FIRVANQ) 25 mg/mL oral solution Take 5 mL by mouth twice daily. Cont inue while on antibiotics vitamin A & D oint Apply topically to affected area as Needed. Medical History: Diagnosis Date Colovesical fistula Diverticulitis [...] 2 HX ROSARIO AND BSO Social History Tobacco Use Smoking status: Former Smoker Packs/day: 1.00 Years: 55.00 Pack years: 55.00 Types: Cigarettes Quit date: 05/15/2020 Years since quittin.2 Smokeless tobacco: Never Used Substance Use Topics Alcohol use: Not Currently Drug use: Never Review of Systems/Medical History PONV Screening: Female gender, Non-smoker and Hx PONV/motion sickness History of anesthetic complications: PONV- improved with scopalamine patch; prol onged awakening did not require longer hospitalization. No family history of anesthetic complications Pulmonary Not a current smoker (quit 05/2020; 55PYH) Pneumonia (postop pneumonia 2014) No recent URI Cardiovascular Recent diagnostic studies: echocardiogram Echo 07/01/2020 The left atrium is moderately dilated, other chamber sizes are normal Right ventricular function is normal Normal to hyperdynamic left ventricular systolic function, with an ejection f raction estimated at 65% Probably normal diastolic function Mild mitral, and tricuspid insufficiency Pulmonary artery pressure is estimated at 49 mmHg No previous study available for comparison Exercise tolerance: <4 METS (PT/OT in facility - walking 400ft without CHOW/CP, requires bathing assistance) Hypertension: hx of HTN, no medications currently; now problems with hypoten huseyin. No past WA, Palpitations PICC line RUE GI/Hepatic/Renal GERD (taking PPI), well controlled No hx of liver disease No renal disease Nausea (frequently "dry heaving") Larsen vesicular fistula Diverticulitis Bilateral nephrostomy Neuro/Psych No seizures No CVA Weakness Chronic opioid use (oxycodone 5 mg ~2 times daily) Musculoskeletal - negative Endocrine/Other Hypothyroidism (taking Synthroid) Hospitalized with sepsis 07/2020 TPN infusing for malnutrition Constitution Non-healing abdominal wound Physical Exam Airway Findings Mallampati: II TM distance: >3 FB Neck ROM: full Mouth opening: good Dental Findings: Negative Cardiovascular Findings: Rhythm: regular Rate: normal Pulmonary Findings: Breath sounds clear to auscultation. Neurological Findings: Alert and oriented x 3 Constitutional findings: No acute distress Well-developed Diagnostic Tests Hematology: Lab Results Component Value Date HGB 12.4 08/18/2020 HCT 27.0 07/19/2020 PLTCT 270 08/18/2020 WBC 8.0 08/18/2020 NEUT 66 07/18/2020 ANC 5.28 07/19/2020 ANC 8.81 07/18/2020 LYMPH 29 07/19/2020 ALC 2.31 07/18/2020 VIOLETTA 11 07/18/2020 AMC 1.44 07/18/2020 EOSA 4 07/18/2020 ABC 0.09 07/18/2020 BASOPHILS 1 07/12/2020 MCV 91.7 07/19/2020 MCH 30.4 07/19/2020 MCHC 33.1 07/19/2020 MPV 8.8 07/19/2020 RDW 16.6 07/19/2020 General Chemistry: Lab Results Component Value Date NA 141 07/19/2020 K 4.0 08/18/2020 CL 101 07/19/2020 CO2 31 07/19/2020 GAP 9 07/19/2020 BUN 27 08/18/2020 CR 0.91 08/18/2020 GLU 96 07/19/2020 CA 8.7 07/19/2020 ALBUMIN 2.8 07/19/2020 LACTIC 1.0 07/11/2020 MG 2.2 07/19/2020 TOTBILI 0.2 07/19/2020 PO4 4.6 07/19/2020 Coagulation: Lab Results Component Value Date PTT 29.3 06/28/2020 INR 1.0 06/28/2020 Anesthesia Plan ASA score: 3 Plan: general, invasive monitoring and epidural for post operative pain Induction method: intravenous NPO status: acceptable Informed Consent Anesthetic plan and risks discussed with patient. Use of blood products discussed with patient Blood Consent: consented Obtained patient's verbal consent to treat them and their agreement to [facility] [employer] [facility] and NPP via this telehealth visit during the Coronavirus Public [facility] Emergency Labs: BMP/CBC reviewed from 08/14/2020; will need DOS T&C GRETTA: none Consults: none documented in this encounter Miscellaneous Notes * Addendum Note - Lilly Strickland MD - 09/05/2020 7:24 AM CDT Addendum created 09/05/20723 by Lilly Strickland MD Cosign clinical note with attestation * Addendum Note - Lilly Strickland MD - 09/05/2020 7:24 AM CDT Addendum created 09/05/20723 by Lilly Strickland MD Cosign clinical note with attestation documented in this encounter Plan of Treatment [...] Procedure Name Priority Date/Time Associated Diag nosis ANESTHESIA ARTERIAL LINE Routine 09/04/2020 INSERTION 1:28 PM CDT ANESTHESIA EPIDURAL BLOCK Routine 09/04/2020 10:24 AM CDT documented in this encounter Results * A-LINE INSERTION (09/04/2020 1:28 PM CDT) Narrative Performed At Twan Mora SRNA 09/04/2020 1: 29 PM Anesthesia Procedure: Arterial Line [place] cement A-LINE INSERTION Date/Time: 09/04/2020 11:50 AM Patient location: OR Indications: frequent labs and hemodyna rakesh monitoring Preprocedure checklist performed: 2 pat ient [...] MD Authorized by: Lilly Strickland MD * EPIDURAL BLOCK (09/04/2020 10:24 AM CDT) [...] Bo MD Authorized by: Lilly Strickland MD documented in this encounter Visit Diagnoses Not on filedocumented in this encounter Administered Medications Action Date Dose Rate Site Medication Order MAR Action 09/04/2020 12:00 PM CDT 1,000 mg acetaminophen (OFIRMEV) injection Given Intravenous, Administer over 15 Minutes , INTRA-PROCEDURE MED, Starting on Fri09/04/20 at 1200, Until Fri09/04/20 at 1512, Anesthesia Intra-op 09/04/2020 12:18 PM CDT albumin 5% infusion (500 mL) Given - New Intravenous, INTRA-PROCEDURE MED(CONT), Bag Starting on Fri09/04/20 at 1218, Until Fri09/04/20 at 1512, Anesthesia Intra-o p 09/04/2020 10:44 AM CDT 2 drops artificial tears single dose ophthalmic Given solution Both Eyes, INTRA-PROCEDURE MED, Startin g on Fri09/04/20 at 1044, Until Fri09/04/20 at 1512, Anesthesia Intra-op 09/04/2020 2:45 PM CDT 4 mL bupivacaine 0.0625% in NS 50mL epidural Bolus infusion syringe 50 mL, Epidural, INTRA-PROCEDURE MED(CONT), Starting on Fri09/04/20 at 1124, Until Fri09/04/20 at 1512, Anesthesia Intra-op 4 mL Bolus 09/04/2020 2:27 PM CDT 4 mL Bolus 09/04/2020 2:06 PM CDT 4 mL Bolus 09/04/2020 1:39 PM CDT 4 mL Bolus 09/04/2020 12:10 PM CDT 4 mL Bolus 09/04/2020 11:25 AM CDT 6 mL/hr 6 mL/hr Given - New Bag 09/04/2020 11:24 AM CDT 09/04/2020 2:41 PM CDT 2 g ceFAZolin (ANCEF) injection Given Intravenous, INTRA-PROCEDURE MED, Starting on Fri09/04/20 at 1050, Until Fri09/04/20 at 1512, Anesthesia Intra-o p 2 g Given 09/04/2020 10:50 AM CDT 09/04/2020 10:44 AM CDT 4 mg dexamethasone (DECADRON) injection Given Intravenous, INTRA-PROCEDURE MED, Starting on Fri09/04/20 at 1044, Until Fri09/04/20 at 1512, Anesthesia Intra-o p 09/04/2020 1:34 PM CDT electrolyte-A (PLASMA-LYTE A PH 7.4) Given - New injection Bag Intravenous, INTRA-PROCEDURE MED(CONT), Starting on Fri09/04/20 at 1044, Until Fri09/04/20 at 1512, Anesthesia Intra-o p Infusion Restarted 09/04/2020 12:28 PM CDT 20 mL/hr Given - New Bag 09/04/2020 10:44 AM CDT 09/04/2020 11:22 AM CDT 100 mcg fentaNYL citrate PF (SUBLIMAZE) Given injection Intravenous, Starting on Fri09/04/20 at 1020, Until Fri09/04/20 at 1122, Anesthesia Intra-op 100 mcg Given 09/04/2020 10:20 AM CDT 09/04/2020 11:28 AM CDT 5,000 Units heparin (porcine) PF syringe 5,000 Units Given 5,000 Units, Subcutaneous, ONCE, 1 dose , On Fri09/04/20 at 0900, NOTE: This is a HIGH ALERT Medication., Pre-Op 09/04/2020 2:44 PM CDT 0.5 mg HYDROmorphone injection (DILAUDID) Given Intravenous, INTRA-PROCEDURE MED, Starting on Fri09/04/20 at 1157, Until Fri09/04/20 at 1512, Anesthesia Intra-o p 0.25 mg Given 09/04/2020 2:06 PM CDT 0.25 mg Given 09/04/2020 1:46 PM CDT 0.5 mg Given 09/04/2020 12:41 PM CDT 0.25 mg Given 09/04/2020 12:00 PM CDT 0.25 mg Given 09/04/2020 11:57 AM CDT 09/04/2020 2:49 PM CDT 5 mg labetaloL (NORMODYNE) injection Given Intravenous, INTRA-PROCEDURE MED, Starting on Fri09/04/20 at 1449, Until Fri09/04/20 at 1512, Anesthesia Intra-o p 09/04/2020 12:28 PM CDT lactated ringers infusion Infusion 1,000 mL, 1,000 mL, Intravenous, at 20 Restarted mL/hr, CONTINUOUS, Starting on Fri09/04/20 at 0900, Until Fri09/06/20 at 0722 20 mL/hr Given - New Bag 09/04/2020 10:39 AM CDT 09/04/2020 10:20 AM CDT 3 mL lidocaine 1.5%/EPINEPHrine 1:200,000 Given injection SEE ADMIN INSTRUCTIONS, Starting on Fri09/04/20 at 1020, Until Fri09/04/20 at 1020, Anesthesia Intra-op 09/04/2020 10:20 AM CDT 5 mL lidocaine PF 1% (10 mg/mL) injection Given Injection, Starting on Fri09/04/20 at 1020, Until Fri09/04/20 at 1020, Anesthesia Intra-op 09/04/2020 11:06 AM CDT 500 mg metroNIDAZOLE (FLAGYL) IVPB Given Intravenous, Administer over 60 Minutes , INTRA-PROCEDURE MED, Starting on Fri09/04/20 at 1106, Until Fri09/04/20 at 1512, Anesthesia Intra-op 09/04/2020 12:45 PM CDT 1 mcg/kg/min 97.35 mL/hr phenylephrine (BENNY-SYNEPHRINE) 10 mg in Given - New sodium chloride 0.9% (NS) 250 mL IV drip Bag (std conc) 250 mL, Intravenous, INTRA-PROCEDURE MED(CONT), Starting on Fri09/04/20 at 1245, Until Fri09/04/20 at 1512, Anesthesia Intra-op 0.4 mcg/kg/min 38.94 mL/hr Given - New Bag 09/04/2020 12:43 PM CDT 09/04/2020 12:45 PM CDT 200 mcg phenylephrine (BENNY-SYNEPHRINE) injection Given syringe Intravenous, INTRA-PROCEDURE MED, Starting on Fri09/04/20 at 1042, Until Fri09/04/20 at 1512, Anesthesia Intra-o p 100 mcg Given 09/04/2020 11:31 AM CDT 100 mcg Given 09/04/2020 10:57 AM CDT 100 mcg Given 09/04/2020 10:42 AM CDT 09/04/2020 2:32 PM CDT 40 mcg/kg/min 15.576 mL/hr propofol (DIPRIVAN) infusion Dose/Rate 100 mL, Intravenous, INTRA-PROCEDURE Change MED(CONT), Starting on Fri09/04/20 at 1037, Until Fri09/04/20 at 1512, Anesthesia Intra-op 65 mcg/kg/min 25.311 mL/hr Dose/Rate Change 09/04/2020 2:17 PM CDT 75 mcg/kg/min 29.205 mL/hr Dose/Rate Change 09/04/2020 2:09 PM CDT 90 mcg/kg/min 35.046 mL/hr Dose/Rate Change 09/04/2020 1:25 PM CDT 100 mcg/kg/min 38.94 mL/hr Given - New Bag 09/04/2020 10:37 AM CDT 09/04/2020 10:37 AM CDT 50 mg propofol (DIPRIVAN) injection Given Intravenous, INTRA-PROCEDURE MED, Starting on Fri09/04/20 at 1037, Until Fri09/04/20 at 1512, Anesthesia Intra-o p 09/04/2020 2:09 PM CDT 0.1 mcg/kg/min 7.788 mL/hr remifentaniL (ULTIVA) 1 mg/3 mL 1,000 Dose/Rate mcg in sodium chloride 0.9% (NS) 20 mL Change Injection Intravenous, INTRA-PROCEDURE MED(CONT), Starting on Fri09/04/20 at 1037, Until Fri09/04/20 at 1512, Anesthesia Intra-o p 25 mcg Bolus 09/04/2020 2:04 PM CDT 0.05 mcg/kg/min 3.894 mL/hr Dose/Rate Change 09/04/2020 12:49 PM CDT 0.07 mcg/kg/min 5.452 mL/hr Dose/Rate Change 09/04/2020 12:02 PM CDT 0.05 mcg/kg/min 3.894 mL/hr Dose/Rate Change 09/04/2020 10:59 AM CDT 0.1 mcg/kg/min 7.788 mL/hr Given - New Bag 09/04/2020 10:37 AM CDT 09/04/2020 2:05 PM CDT 10 mg rocuronium injection Given Intravenous, INTRA-PROCEDURE MED, Starting on Fri09/04/20 at 1037, Until Fri09/04/20 at 1512, Anesthesia Intra-o p 50 mg Given 09/04/2020 10:37 AM CDT 09/04/2020 2:42 PM CDT 120 mg sugammadex (BRIDION) injection Given Intravenous, INTRA-PROCEDURE MED, Starting on Fri09/04/20 at 1442, Until Fri09/04/20 at 1512, Anesthesia Intra-o p 09/04/2020 12:18 PM CDT TRANSFUSE RBC'S Given - New FILIBERTO, Patient location: OR Room 10 Bag [id number], Blood for OR use? Yes, Lab Results Component Value Date HGB 12.1 08/21/2020 09/04/2020 12:50 PM CDT TRANSFUSE RBC'S Given - New FILIBERTO, Patient location: OR Room 10 Bag [id number], Blood for OR use? 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
== END 2020-11-03 19:34 | disposition home or self-care (01) ==
LOC: ER 18:32
DX: Z46.6 Encounter for fitting and adjustment of urinary device (principal)
CPT/HCPCS: 51702